=== PATIENT | female | born 1970 | race African-American/Black ===

== ENCOUNTER 2019-12-05 01:09 | Inpatient (IN) | payer OTHER, SELFPAY ==
[2019-12-05] VITALS (20 sets, daily range): BP systolic 96–126; BP diastolic 46–80; PULSE 65–106; RESP 16–91; TEMP 36.4–37.6; O2SAT 91–99; BMI 22.1; BMI 23.8
--- NOTE | 2019-12-05 01:22 | ECG_ITS ---
Test Reason : CHEST PAIN Blood Pressure : / mmHG Vent. Rate : 090 BPM Atrial Rate : 090 BPM P-R Int : 134 ms QRS Dur : 084 ms QT Int : 366 ms P-R-T Axes : 070 030 046 degrees QTc Int : 447 ms Normal sinus rhythm Normal ECG When compared with ECG of 17-OCT-2019 04:38, No significant change was found Referred By: Howard Gonzalez Electronically Signed By:JOSE LUIS MANCERA MD
--- NOTE | 2019-12-05 01:22 | XR_ITS ---
EXAMINATION: XR CHEST CLINICAL INFORMATION: Chest pain COMPARISON: 10/17/2019 TECHNIQUE: Frontal view of the chest was obtained. FINDINGS: Right chest wall CT compatible port terminates over the mid SVC. The lungs are well expanded. There is no focal consolidation, edema, or effusion. No pneumothorax. The cardiomediastinal silhouette is within normal limits. No acute osseous abnormality. IMPRESSION: No acute pulmonary finding.
--- NOTE | 2019-12-05 01:25 | ED.GENADULT ---
HPI - General Adult General Chief complaint: General Medical Stated complaint: Sickle Cell Pain Time Seen by Provider: 12/05/19 01:15 Source: patient and EMS History of Present Illness HPI narrative: patient states for the past 1-2 days has been having full body pain. Chest pain arm pain back pain. Denies recent fevers or chills denies cough denies urinary symptoms. Denies focal abdominal pain. Patient feels this is similar to her sickle cell crisis MD complaint: full body pain Onset (ago): day(s) ( 1 day) Severity scale (1-10): 7 Quality: aching Pain Consistency: constant Relieving factors: none Related Data Allergies Allergy/AdvReac Type Severity Reaction Status Date / Time prochlorperazine Allergy Severe ANAPHYLAXIS Unverified 11/10/19 19:18 [From COMPAZINE] Review of Systems Review of Systems: Constitutional : No Weight loss, No Fever, No Chills, No Night Sweats, positive Fatigue, positive Malaise ENT/Mouth : No Hearing loss, No Ear Pain, No Nasal Congestion, No Sinus Pain, No Hoarseness, No sore throat, No Rhinorrhea, No Swallowing Difficulty Eyes: No Eye Pain, No Swelling, No Redness, No Foreign Body, No Discharge, No Vision Changes Cardiovascular : positiveChest Pain, No SOB, No Dyspnea on Exertion, No Orthopnea, No Edema, No Palpitations Respiratory : No Cough, No Sputum, No Wheezing, No Smoke Exposure, No Dyspnea Gastrointestinal : No Nausea, No Vomiting, No Diarrhea, No Constipation, No abdominal Pain, No Hematochezia, No Melena Genitourinary : no irregular bleeding, No Dysuria, No Urinary Frequency, No Hematuria, No Urinary Incontinence, No Urgency, No Flank Pain, No Urinary Flow Changes, No Hesitancy Musculoskeletal : No joint pain, positive Myalgias, No Joint Swelling Skin : No Skin Lesions, No rash Neuro : No Weakness, No Numbness, No Paresthesias, No Loss of Consciousness, No Dizziness, No Headache Psych : No Anxiety/Panic, No Depression, No SI/HI/AH/VH, No Social Issues, Heme/Lymph: No Bruising, No Bleeding,No Lymphadenopathy Endocrine : No Polyuria, No Polydipsia, No Temperature Intolerance [facility] Past Medical History Attestation statement: The following information was validated with the patient. Medical History (Updated 12/05/19 @ 01:28 by Howard Gonzalez DO) Bipolar 1 disorder Cocaine abuse GERD (gastroesophageal reflux disease) PTSD (post-traumatic stress disorder) Sickle cell anemia Surgical History (Updated 12/05/19 @ 01:29 by Howard Gonzalez DO) Hx of cholecystectomy Social History Social History (Updated 12/05/19 @ 01:29 by Howard Gonzalez DO) Alcohol intake: current Physical Exam Vital Signs: Appearance: Alert. Oriented X3. No acute distress. Eyes: Pupils equal, round and reactive to light. ENT: Pharynx normal. Neck: Normal inspection. Neck supple. No lymph nodes noted. No crepitus CVS: Normal heart rate and rhythm. Pulses normal. Normal S1 and S2 Respiratory: No respiratory distress. Breath sounds normal. No Wheezing. No rales Abdomen: Soft and nontender. No rigidity. No distention. good BS x4 Skin: Skin warm and dry. Normal skin color. Normal skin turgor. Extremities: No lower extremity edema. Neurovascular intact to all extremities. No Lacerations. No Rash Neuro: Oriented X 3. No motor deficit. No sensory deficit. Moving all extermities. No slurred speech. Medical Decision Making Differential Diagnosis Differential Diagnosis: UTI, pneumonia acute chest syndrome sickle cell crisis Medical Records Medical records reviewed: Yes I reviewed the patient's medical records. Medical records narrative: Discharged from here 3 4 months ago for sickle cell anemia, bipolar, UTI, PTSD was transfused and discharge with a hemoglobin of 9 ECG Data Attestation: I personally reviewed and interpreted this ECG as follows: Interpretation: normal sinus rhythm. Ninety. Normal axis. No ST-T changes
[2019-12-05 02:16] LABS: Hemoglobin 6.9 g/dl (12.0-16.0); Mean Corpuscular HGB Conc 35.4 g/dl (31.0-35.0); Mean Corpuscular Hemoglobin 32.1 pg (27.0-33.0); Mean Corpuscular Volume 90.7 fL (80-98); Mean Platelet Volume 11.4 fL (9.4-12.3); NRBC Pct Auto 4.9 /100WBC (0.0-0.2); Platelet Count 169 X10*3/uL (160-400); Red Blood Count 2.15 X10*6/uL (4.20-5.50); Red Cell Distribution Width 22.4 % (11.0-16.0); White Blood Count 13.6 X10*3/uL (4.8-10.8)
[2019-12-05] MEDS: Lidocaine HCl 2 % MPF 5 ML VIAL INFILTRATI (02:16)
[2019-12-05] MEDS: HYDROmorphone HCl 2 MG/ML VIAL IVPUSH ×2 (02:17→03:34)
[2019-12-05] MEDS: diphenhydrAMINE HCL 50 MG/ML VIAL 25 MG IVPUSH (02:17)
[2019-12-05 02:18] LABS: Glucose Urine UA NEG (NEG); Leukocyte Esterase Urine TRACE (NEG); Nitrite Urine NEG (NEG); Specific Gravity - Urine 1.015 (1.005-1.025); Urine Blood 1+ (NEG); Urine Ketones NEG (NEG); Urine Protein NEG (NEG-TRACE)
[2019-12-05] MEDS: ondansetron HCL 4 MG/2 ML VIAL IVPUSH (02:18)
[2019-12-05] MEDS: 0.9 % Sodium Chloride 1,000 ML 999 ML IVCONT (02:18)
[2019-12-05 02:21] LABS: Hematocrit 19.5 % (37-47)
[2019-12-05 02:26] LABS: Appearance Urine HAZY; Color Urine AMBER
[2019-12-05 02:37] LABS: Band Neutrophils Percent 4 % (3-5); Basophils Abs Manual 0.1 X10*3/uL (0.0-0.3); Basophils Percent Manual 1 % (0-1); Lymphocytes Absolute Manual 2.9 X10*3/uL (0.6-4.8); Lymphocytes Percent Manual 21 % (20-40); Monocytes Absolute Manual 1.8 X10*3/uL (0.0-1.2); Monocytes Percent Manual 13 % (2-11); Neutrophils Absolute Manual 8.8 X10*3/uL (2.2-7.9); Neutrophils Percent Manual 61 % (45-73); Nucleated Red Blood Cells 4 /100WBC (0-0); RBC Morphology NOTED
[2019-12-05 02:40] LABS: Macrocytosis 1+; Microcytosis 1+; Sickle Cells 3+; Target Cells 1+
[2019-12-05 02:41] LABS: Howell Jolly Bodies PRESENT; Hypochromasia 1+; Platelet Estimate NORMAL (NORMAL); Platelet Morphology Comment NORMAL; Polychromasia 2+
[2019-12-05 02:45] LABS: Troponin-I High Sensitivity 10.5 ng/L (<3.5-17.0)
[2019-12-05 02:47] LABS: Alanine Aminotransferase 44 U/L (0-31); Albumin Level 4.1 g/dL (3.5-5.0); Alkaline Phosphatase 144 U/L (39-117); Anion Gap 14 (12-20); Aspartate Amino Transferase 117 U/L (5-31); Bilirubin Direct 1.3 mg/dL (0.0-0.5); Bilirubin Total 3.2 mg/dL (0.0-1.0); Blood Urea Nitrogen 9 mg/dL (9-16); Calcium 8.8 mg/dL (8.4-10.2); Carbon Dioxide 21 mmol/L (22-29); Chloride 109 mmol/L (96-108); Creatinine Clr Calc Pharmacy 61.8; Estimated Glomerular Filt Rate > 60; Glucose Random 93 mg/dL (60-115); Lipase 50 U/L (8-78); Sodium 140 mmol/L (135-145); Total Protein 7.7 g/dL (6.5-8.0)
[2019-12-05 02:48] LABS: Bacteria Urine 3+ /LPF; RBC Urine 0-2 /HPF (0); Squamous Epithelial Cell Urine 2+ /LPF; WBC Clumps Urine NOTED
[2019-12-05] MEDS: cefTRIAXone sodium 1 GM in 0.9 % Sodium Chloride 50 ML IV ×2 (03:33→21:20)
--- NOTE | 2019-12-05 03:38 | ED_ITS ---
HPI - General Adult General Chief complaint: General Medical Stated complaint: Sickle Cell Pain Time Seen by Provider: 12/05/19 01:15 Source: patient and EMS History of Present Illness Severity scale (1-10): 7 Quality: aching Relieving factors: none Related Data Allergies Allergy/AdvReac Type Severity Reaction Status Date / Time prochlorperazine Allergy Severe ANAPHYLAXIS Verified 12/05/19 01:32 [From COMPAZINE] PMFSH Past Medical History Medical History (Updated 12/05/19 @ 06:12 by Donny Barron MD) Bipolar 1 disorder Cocaine abuse GERD (gastroesophageal reflux disease) PTSD (post-traumatic stress disorder) Sickle cell anemia Surgical History Hx of cholecystectomy Social History Social History Alcohol intake: current Alcohol intake frequency: a few times a week Alcohol type: hard liquor Smoking Status: Current every day smoker Substance Use Type: Crack/Cocaine Substance Use Frequency: Weekly Last Used Substance: Days (ago) Any prior treatment program specific to substance use: Yes Advance Directives: No Advance Directives Information Provided: No Physical Exam Vital Signs: Vital Signs: Vital Signs Temp Pulse Resp BP Pulse Ox 12/05/19 05:40 92 16 96/73 96 12/05/19 03:40 106 H 24 H 108/60 92 12/05/19 01:13 99.7 F 96 20 105/46 L 96 Body Mass Index 22.1 Course Course Course Narrative: multiple re-evaluations were done by me while the patient has been in the ER. Patient with acute sickle cell crisis with a low hemoglobin requiring transfusion of 2 units of blood Medical Decision Making Lab Data Result diagrams: 12/05/19 02:10 12/05/19 02:10 Labs: Lab Results 12/05/19 12/05/19 12/05/19 Range/Units 01:39 02:10 02:10 WBC 13.6 H (4.8-10.8) X10*3/uL RBC 2.15 L (4.20-5.50) X10*6/uL Hgb 6.9 L* (12.0-16.0) g/dl Hct 19.5 L* (37-47) % MCV 90.7 (80-98) fL MCH 32.1 (27.0-33.0) pg MCHC 35.4 H (31.0-35.0) g/dl RDW 22.4 H (11.0-16.0) % Plt Count 169 (160-400) X10*3/uL MPV 11.4 (9.4-12.3) fL Immature Gran % (Auto) Cancelled Neut % (Auto) Cancelled Lymph % (Auto) Cancelled [place] % (Auto) Cancelled Eos % (Auto) Cancelled Baso % (Auto) Cancelled Lymph # (Auto) Cancelled [place] # (Auto) Cancelled Eos # (Auto) Cancelled Baso # (Auto) Cancelled Abs Immat Gran (auto) Cancelled Absolute Neuts (auto) Cancelled Absolute Nucleated RBC 0.670 H (0.0-0.012) X10*3/uL Nucleated RBC % (auto) 4.9 H (0.0-0.2) /100WBC Neutrophils % (Manual) 61 (45-73) % Band Neutrophils % 4 (3-5) % Lymphocytes % (Manual) 21 (20-40) % Monocytes % (Manual) 13 H (2-11) % Basophils % (Manual) 1 (0-1) % Abs Neuts (Manual) 8.8 H (2.2-7.9) X10*3/uL Lymphocytes # (Manual) 2.9 (0.6-4.8) X10*3/uL Monocytes # (Manual) 1.8 H (0.0-1.2) X10*3/uL Basophils # (Manual) 0.1 (0.0-0.3) X10*3/uL Nucleated RBCs 4 H (0-0) /100WBC Platelet Estimate NORMAL (NORMAL) Plt Morphology Comment NORMAL RBC Morphology NOTED Polychromasia 2+ Hypochromasia 1+ Microcytosis 1+ Macrocytosis 1+ Sickle Cells 3+ Target Cells 1+ [place] Bodies PRESENT Absolute Retic 0.142 H (0.026-0.095) X10*6/uL Percent Retic 20.0 H (0.5-1.8) % Immature Retic Fraction 18.4 H (3.0-15.9) % Retic Hgb Equivalent 31.8 (30.0-35.0) pg Sodium 140 (135-145) mmol/L Potassium 4.0 (3.3-5.1) mmol/l Chloride 109 H (96-108) mmol/L Carbon Dioxide 21 L (22-29) mmol/L Anion Gap 14 (12-20) BUN 9 (9-16) mg/dL Creatinine 0.92 (0.5-1.4) mg/dL Estim Creat Clear Calc 61.8 Estimated GFR > 60 Random Glucose 93 (60-115) mg/dL Lactic Acid (0.5-2.0) mmol/L Calcium 8.8 (8.4-10.2) mg/dL Total Bilirubin 3.2 H (0.0-1.0) mg/dL Direct Bilirubin 1.3 H (0.0-0.5) mg/dL AST 117 H (5-31) U/L ALT 44 H (0-31) U/L Alkaline Phosphatase 144 H (39-117) U/L Troponin I High Sens (<3.5-17.0) ng/L Total Protein 7.7 (6.5-8.0) g/dL Albumin 4.1 (3.5-5.0) g/dL Lipase 50 (8-78) U/L Urine Color SAMANTHA Urine Appearance HAZY Urine pH 6.0 (5.0-8.0) Ur Specific [place] 1.015 (1.005-1.025) Urine Protein NEG (NEG-TRACE) MG/DL Urine Glucose (UA) NEG (NEG) MG/DL Urine Ketones NEG (NEG) MG/DL Urine Blood 1+ H (NEG) Urine Nitrite NEG (NEG) Ur Leukocyte Esterase TRACE H (NEG) Urine RBC 0-2 (0) /HPF Urine WBC 5-9 H (0-4) /HPF Urine WBC Clumps NOTED Ur Squamous Epith Cells 2+ /LPF Urine Bacteria 3+ /LPF Blood Type Antibody Screen Crossmatch 12/05/19 12/05/19 12/05/19 Range/Units 02:10 03:31 03:31 WBC (4.8-10.8) X10*3/uL RBC (4.20-5.50) X10*6/uL Hgb (12.0-16.0) g/dl Hct (37-47) % MCV (80-98) fL MCH (27.0-33.0) pg MCHC (31.0-35.0) g/dl RDW (11.0-16.0) % Plt Count (160-400) X10*3/uL MPV (9.4-12.3) fL Immature Gran % (Auto) Neut % (Auto) Lymph % (Auto) [place] % (Auto) Eos % (Auto) Baso % (Auto) Lymph # (Auto) [place] # (Auto) Eos # (Auto) Baso # (Auto) Abs Immat Gran (auto) Absolute Neuts (auto) Absolute Nucleated RBC (0.0-0.012) X10*3/uL Nucleated RBC % (auto) (0.0-0.2) /100WBC Neutrophils % (Manual) (45-73) % Band Neutrophils % (3-5) % Lymphocytes % (Manual) (20-40) % Monocytes % (Manual) (2-11) % Basophils % (Manual) (0-1) % Abs Neuts (Manual) (2.2-7.9) X10*3/uL Lymphocytes # (Manual) (0.6-4.8) X10*3/uL Monocytes # (Manual) (0.0-1.2) X10*3/uL Basophils # (Manual) (0.0-0.3) X10*3/uL Nucleated RBCs (0-0) /100WBC Platelet Estimate (NORMAL) Plt Morphology Comment RBC Morphology Polychromasia Hypochromasia Microcytosis Macrocytosis Sickle Cells Target Cells [place] Bodies Absolute Retic (0.026-0.095) X10*6/uL Percent Retic (0.5-1.8) % Immature Retic Fraction (3.0-15.9) % Retic Hgb Equivalent (30.0-35.0) pg Sodium (135-145) mmol/L Potassium (3.3-5.1) mmol/l Chloride (96-108) mmol/L Carbon Dioxide (22-29) mmol/L Anion Gap (12-20) BUN (9-16) mg/dL Creatinine (0.5-1.4) mg/dL Estim Creat Clear Calc Estimated GFR Random Glucose (60-115) mg/dL Lactic Acid 1.0 (0.5-2.0) mmol/L Calcium (8.4-10.2) mg/dL Total Bilirubin (0.0-1.0) mg/dL Direct Bilirubin (0.0-0.5) mg/dL AST (5-31) U/L ALT (0-31) U/L Alkaline Phosphatase (39-117) U/L Troponin I High Sens 10.5 (<3.5-17.0) ng/L Total Protein (6.5-8.0) g/dL Albumin (3.5-5.0) g/dL Lipase (8-78) U/L Urine Color Urine Appearance Urine pH (5.0-8.0) Ur Specific [place] (1.005-1.025) Urine Protein (NEG-TRACE) MG/DL Urine Glucose (UA) (NEG) MG/DL Urine Ketones (NEG) MG/DL Urine Blood (NEG) Urine Nitrite (NEG) Ur Leukocyte Esterase (NEG) Urine RBC (0) /HPF Urine WBC (0-4) /HPF Urine WBC Clumps Ur Squamous Epith Cells /LPF Urine Bacteria /LPF Blood Type O Positive Antibody Screen NEGATIVE Crossmatch See Detail Critical Care Time Critical Care Time Critical Care Time: Yes Total Critical Care Time: 35 Attestation: I have personally provided the time allotted of critical care time exclusive of time spent on separately billable procedures. Time includes review of laboratory data, radiology results, discussion with consultants and monitoring for potential decompensation. Interventions were performed and documented Discharge Plan Discharge Clinical Impression: Sickle cell crisis UTI (urinary tract infection) Qualifiers: Urinary tract infection type: acute cystitis Anemia Qualifiers: Anemia type: other cause Patient Disposition: Admitted As Inpatient
[2019-12-05] MEDS: LORazepam 2 MG/ML VIAL IVPUSH (03:55)
--- NOTE | 2019-12-05 05:05 | PC.NURSE ---
Unable to complete medrec at this time due to patient's decreased mental status.
--- NOTE | 2019-12-05 05:58 | P.HPIM_ITS ---
History of Present Illness Date of Service: 12/05/19 Chief Complaint: Sickle cell crisis this is a 49-year-old female with past medical history of sickle cell, bipolar, PTSD, cocaine abuse, alcohol abuse, who presents to the hospital with significant pain all over the body. Patient currently is very somnolent, very difficult to redirect after receiving Ativan and Dilaudid in the ED. I was not able to get much history from the patient therefore history is obtained from the ED physician. It appears that patient has been having generalized body pain for the past 3 days. Review of system cannot be completed due to patient's clinical presentation. On arrival to the ED patient had a temperature of 99.7? pulse rate of 96 which increased to 106 at some point, respiratory rate of 20 for blood pressure 105/46 and she was satting 96% on room air labs are significant for WBC count of 13.6, hemoglobin of 6.9, hematocrit of 19.5, MCV of 90.7, total bili of 3.2 direct bili of 1.3 AST of 117 an ALT of 44 (chronically elevated), UA UA is positive for leukocyte Estrace and WBC chest x-rays negative for any acute findings Past medical history is obtained from chart as patient is unable to give me any history herself past medical history: Bipolar, sickle cell disease, PTSD, cocaine abuse, alcohol abuse, GERD surgical history: Cholecystectomy, section, ankle surgery Family history: significant for diabetes Social history: History appears that patient is of smoker, lives alone and uses cocaine Review of Systems Review of Systems: Yes all other systems are reviewed and are negative [facility] Medical History (Updated 12/05/19 @ 06:12 by Donny Barron MD) Bipolar 1 disorder Cocaine abuse GERD (gastroesophageal reflux disease) PTSD (post-traumatic stress disorder) Sickle cell anemia Surgical History Hx of cholecystectomy Social History Alcohol intake: current Alcohol intake frequency: a few times a week Alcohol type: hard liquor Smoking Status: Current every day smoker Substance Use Type: Crack/Cocaine Substance Use Frequency: Weekly Last Used Substance: Days (ago) Any prior treatment program specific to substance use: Yes Advance Directives: No Advance Directives Information Provided: No Meds Allergies Allergy/AdvReac Type Severity Reaction Status Date / Time prochlorperazine Allergy Severe ANAPHYLAXIS Verified 12/05/19 01:32 [From COMPAZINE] Physical Exam Vital Signs and Narrative: Vital Signs: Last Vital Signs Temp 99.7 F 12/05/19 01:13 Pulse 92 12/05/19 05:40 Resp 16 12/05/19 05:40 BP 96/73 12/05/19 05:40 Pulse Ox 96 12/05/19 05:40 Body Mass Index 22.1 Const: Other: -patient is somnolent, but arousable. She anywhere to stay up long enough to give me any history or follow any command. no apparent distress Eyes: General: appearance normal, both eyes and all related structures Resp: Effort & Inspection: normal respiratory effort Auscultation: clear to auscultation bilaterally Cardio: Rate: regular rate Rhythm: regular rhythm GI: Palpation (GI): Soft to palpation Auscultation: normal bowel sounds Skin: General skin exam: no rashes or lesions noted Neuro: Other: unable to complete neuro exam as patient clinically unable to follow command Extrem: General: Yes normal to inspection and Yes no pedal edema Results Labs Labs: Laboratory Tests 12/05/19 12/05/19 12/05/19 01:39 02:10 02:10 WBC 13.6 H RBC 2.15 L Hgb 6.9 L* Hct 19.5 L* MCV 90.7 MCH 32.1 MCHC 35.4 H RDW 22.4 H Plt Count 169 MPV 11.4 Immature Gran % (Auto) Cancelled Neut % (Auto) Cancelled Lymph % (Auto) Cancelled [place] % (Auto) Cancelled Eos % (Auto) Cancelled Baso % (Auto) Cancelled Lymph # (Auto) Cancelled [place] # (Auto) Cancelled Eos # (Auto) Cancelled Baso # (Auto) Cancelled Abs Immat Gran (auto) Cancelled Absolute Neuts (auto) Cancelled Absolute Nucleated RBC 0.670 H Nucleated RBC % (auto) 4.9 H Neutrophils % (Manual) 61 Band Neutrophils % 4 Lymphocytes % (Manual) 21 Monocytes % (Manual) 13 H Basophils % (Manual) 1 Abs Neuts (Manual) 8.8 H Lymphocytes # (Manual) 2.9 Monocytes # (Manual) 1.8 H Basophils # (Manual) 0.1 Nucleated RBCs 4 H Platelet Estimate NORMAL Plt Morphology Comment NORMAL RBC Morphology NOTED Polychromasia 2+ Hypochromasia 1+ Microcytosis 1+ Macrocytosis 1+ Sickle Cells 3+ Target Cells 1+ [place] Bodies PRESENT Absolute Retic Not Reportable Percent Retic Not Reportable Immature Retic Fraction Not Reportable Retic Hgb Equivalent Not Reportable Sodium 140 Potassium 4.0 Chloride 109 H Carbon Dioxide 21 L Anion Gap 14 BUN 9 Creatinine 0.92 Estim Creat Clear Calc 61.8 Estimated GFR > 60 Random Glucose 93 Lactic Acid Calcium 8.8 Total Bilirubin 3.2 H Direct Bilirubin 1.3 H AST 117 H ALT 44 H Alkaline Phosphatase 144 H Troponin I High Sens Total Protein 7.7 Albumin 4.1 Lipase 50 Urine Color SAMANTHA Urine Appearance HAZY Urine pH 6.0 Ur Specific [place] 1.015 Urine Protein NEG Urine Glucose (UA) NEG Urine Ketones NEG Urine Blood 1+ H Urine Nitrite NEG Ur Leukocyte Esterase TRACE H Urine RBC 0-2 Urine WBC 5-9 H Urine WBC Clumps NOTED Ur Squamous Epith Cells 2+ Urine Bacteria 3+ Blood Type Antibody Screen Crossmatch 12/05/19 12/05/19 12/05/19 02:10 03:31 03:31 WBC RBC Hgb Hct MCV MCH MCHC RDW Plt Count MPV Immature Gran % (Auto) Neut % (Auto) Lymph % (Auto) [place] % (Auto) Eos % (Auto) Baso % (Auto) Lymph # (Auto) [place] # (Auto) Eos # (Auto) Baso # (Auto) Abs Immat Gran (auto) Absolute Neuts (auto) Absolute Nucleated RBC Nucleated RBC % (auto) Neutrophils % (Manual) Band Neutrophils % Lymphocytes % (Manual) Monocytes % (Manual) Basophils % (Manual) Abs Neuts (Manual) Lymphocytes # (Manual) Monocytes # (Manual) Basophils # (Manual) Nucleated RBCs Platelet Estimate Plt Morphology Comment RBC Morphology Polychromasia Hypochromasia Microcytosis Macrocytosis Sickle Cells Target Cells [place] Bodies Absolute Retic Percent Retic Immature Retic Fraction Retic Hgb Equivalent Sodium Potassium Chloride Carbon Dioxide Anion Gap BUN Creatinine Estim Creat Clear Calc Estimated GFR Random Glucose Lactic Acid 1.0 Calcium Total Bilirubin Direct Bilirubin AST ALT Alkaline Phosphatase Troponin I High Sens 10.5 Total Protein Albumin Lipase Urine Color Urine Appearance Urine pH Ur Specific [place] Urine Protein Urine Glucose (UA) Urine Ketones Urine Blood Urine Nitrite Ur Leukocyte Esterase Urine RBC Urine WBC Urine WBC Clumps Ur Squamous Epith Cells Urine Bacteria Blood Type O Positive Antibody Screen NEGATIVE Crossmatch See Detail Assessment and Plan (1) Sickle cell crisis: Status: Acute (2) Sepsis: Status: Acute (3) Sickle cell anemia: Status: Inactive (4) UTI (urinary tract infection): Qualifiers: Urinary tract infection type: acute cystitis Status: Acute (5) GERD (gastroesophageal reflux disease): Status: Inactive (6) Bipolar 1 disorder: Status: Inactive (7) Alcohol abuse: Status: Acute this is a 49-year-old female with past medical history of sickle cell disease who presents to the hospital is sickle cell crisis. # Sickle cell crisis - significant pain over the body - chest x-ray normal, his UTI and sepsis as a result - hemoglobin of 6.9 plan: - pain management with morphine, oxycodone and Tylenol - receiving 2 units of PRBC ordered by ED - IV fluid - monitor respiratory status # sepsis - secondary to UTI - chest x-ray negative for pneumonia - has leukocytosis, tachycardia and tachypnea Plan: - Ceftriaxone - IV fluid - follow blood cultures # sickle cell anemia - hemoglobin 6.9, hemodynamically stable - has elevated bilirubin plan: - 2 units of PRBC ordered - follow CBC - monitor respiratory status # UTI - positive UA - ceftriaxone, urine cultures - IV fluids # alcohol abuse - I am unable to obtain any history about the amount of alcohol she uses - will place her on CIWA at this time and assess need for barbituate DVT prophylaxis: Lovenox date of service 12/05/2019
[2019-12-05 06:44] LABS: Immature Retic Fraction 18.4 % (3.0-15.9); Retic HGB Equivalent 31.8 pg (30.0-35.0); Reticulocytes Absolute 0.142 X10*6/uL (0.026-0.095)
--- NOTE | 2019-12-05 07:23 | PC.NURSE ---
This RN given report by Eileen GAY. pt repositioned in bed. pt sleeping soundly. sts pt can now go upstairs.
--- NOTE | 2019-12-05 07:31 | PC.NURSE ---
This RN spoke [place] [facility] [place] [facility] patient is coming [place] now and that her blood is ready in the blood bank.
[2019-12-05] MEDS: 0.9 % Sodium Chloride Flush 3 ML SYRINGE IVFLUSH ×3 (08:03→23:45)
[2019-12-05] MEDS: Enoxaparin Sodium 40 MG/0.4 ML SYRINGE SUBCUT (08:04)
[2019-12-05] MEDS: Morphine Sulfate 4 MG/ML CARTRIDGE IVPUSH ×3 (08:48→21:20)
[2019-12-05] MEDS: PHENobarbitaL sodium 130 MG/ML VIAL 254 MG IM (11:13)
[2019-12-05 13:56] LABS: Hemoglobin 10.9 g/dl (12.0-16.0); PLT CLUMP 1
[2019-12-05 13:57] LABS: Hematocrit 31.4 % (37-47); Mean Corpuscular HGB Conc 34.7 g/dl (31.0-35.0); Mean Corpuscular Hemoglobin 31.8 pg (27.0-33.0); Mean Corpuscular Volume 91.5 fL (80-98); Mean Platelet Volume 11.3 fL (9.4-12.3); Platelet Count 125 X10*3/uL (160-400); Red Blood Count 3.43 X10*6/uL (4.20-5.50); Red Cell Distribution Width 20.2 % (11.0-16.0)
[2019-12-05 14:04] LABS: NRBC Pct Auto 6.6 /100WBC (0.0-0.2)
[2019-12-05] MEDS: PHENobarbitaL sodium 130 MG/ML VIAL 191 MG IM (14:29)
--- NOTE | 2019-12-05 16:38 | PM.EVENT ---
Event Note Event Note: the patient was seen and evaluated this Morning andafternoon she was very sleepy in the morning and barely responsive. Scored 14 on CIWA score and started on phenobarbital protocol with good response. In the afternoon more alert and responsive. complains of general pain denies chgest pain, SOB, n\v\d or urinary symptoms pain management Recieved total of 3 units. Ordered total of 5 units by ED which seems to be too many for a sickle cell ( the 3rd unit was given by RN for multiple transfusion orders reported on the nurses Expanse, blood bank notified to review the issue) Hold IVF To give dose of lasix
[2019-12-05] MEDS: Folic Acid 1 MG TABLET PO (16:56)
--- NOTE | 2019-12-05 17:05 | P.CNHO_ITS ---
Subjective - Subjective Chief complaint: Consult for SSC. Patient: known to practice within the last 3 years Primary Care Provider: Unknown Physician HPI - Consult Narrative Reason for consult: SSC. Narrative: America Vizcaino is a 49 year old lady who presents with: Sickle cell crisis She has a past medical history of sickle cell, bipolar, PTSD, cocaine abuse, alcohol abuse. She presented to the hospital, last night, with significant pain all over the body. Patient was rather somnolent, and difficult to arouse after receiving Ativan and Dilaudid. It appeared that she had been having generalized body pain for the past 3 days. Review of system could not be completed. On arrival to the ED she had a temperature of 99.7? pulse rate of 96 which increased to 106, respiratory rate of 20 for blood pressure 105/46 and she was satting 96% on room air DATA BASE: WBC count of 13.6, hemoglobin of 6.9, hematocrit of 19.5, MCV of 90.7, Total bili of 3.2 direct bili of 1.3 AST of 117 an ALT of 44 (chronically elevated), UA was positive for leukocyte Estrace and WBC Chest x-rays negative for any acute findings. Phenobarb protocol was initiated. She is more responsive this afternoon. Complaining of generalized pain. [facility] Medical History: Medical History (Last Updated 12/05/19 @ 06:12 by Donny Barron MD) Bipolar 1 disorder Cocaine abuse GERD (gastroesophageal reflux disease) PTSD (post-traumatic stress disorder) Sickle cell anemia Patient : No Surgical History: Surgical History (Last Reviewed 12/05/19 @ 06:08 by Donny Barron MD) Hx of cholecystectomy Smoking status: Current every day smoker Home Medications and Allergies Current Medications: Current Medications Generic Name Dose Route Start Last Admin Trade Name Freq PRN Reason Stop Dose Admin Acetaminophen 650 mg 12/05/19 07:37 Acetaminophen 325 Mg Tablet PO Q6H PRN Pain, Mild (Pain Scale 1-3) Docusate Sodium 100 mg 12/05/19 07:37 Docusate Sodium 100 Mg Capsule PO DAILY PRN Constipation Enoxaparin Sodium 40 mg 12/05/19 08:00 12/05/19 08:04 Enoxaparin Sodium 40 Mg/0.4 Ml Syringe SUBCUT 40 mg Q24H [facility]IP Administration Folic Acid 1 mg 12/05/19 16:20 Folic Acid 1 Mg Tablet PO DAILY [facility] Furosemide 20 mg 12/05/19 16:50 Furosemide 20 Mg/2 Ml Vial IVPUSH 12/05/19 16:51 ONCE ONE Protocol Ceftriaxone Sodium 1 gm/ 50 mls @ 100 mls/hr 12/05/19 22:00 Sodium Chloride IV Q24H [facility] Medication 1 each 12/06/19 09:00 No Benzodiazepines MISCELLANE DAILY [facility] Morphine Sulfate 4 mg 12/05/19 07:37 12/05/19 08:48 Morphine Sulfate 4 Mg/Ml Cartridge IVPUSH 4 mg Q4H PRN Administration Pain, Severe (Pain Scale 7-10) Morphine Sulfate 2 mg 12/05/19 16:17 Morphine Sulfate 2 Mg/Ml Cartridge IVPUSH Q4H PRN Pain, Severe (Pain Scale 7-10) Ondansetron HCl 4 mg 12/05/19 07:37 Ondansetron Hcl 4 Mg/2 Ml Vial IVPUSH Q8H PRN Nausea and Vomiting Oxycodone HCl 5 mg 12/05/19 07:37 Oxycodone Hcl Immed Release 5 Mg Tablet PO Q6H PRN Pain, Severe (Pain Scale 7-10) Phenobarbital 45 mg 12/05/19 21:00 Phenobarbital 15 Mg Tablet PO 12/07/19 09:01 BID [facility] Phenobarbital 15 mg 12/07/19 21:00 Phenobarbital 15 Mg Tablet PO 12/09/19 09:01 BID [facility] Phenobarbital 15 mg 12/09/19 21:00 Phenobarbital 15 Mg Tablet PO 12/10/19 21:01 BEDTIME [facility] Sodium Chloride 3 ml 12/05/19 08:00 12/05/19 08:03 0.9 % Sodium Chloride Flush 3 Ml Syringe IVFLUSH 3 ml QSHIFT [facility] Administration Home Medications Medication Instructions Recorded Confirmed Type albuterol sulfate 2.5 mg INHALATION Q6H 12/05/19 12/05/19 History hydroxyzine pamoate 25 mg PO QID PRN 12/05/19 12/05/19 History multivitamin [Daily-Lazraa] 1 tab PO DAILY 12/05/19 12/05/19 History omeprazole 20 mg PO DAILY 12/05/19 12/05/19 History oxycodone-acetaminophen 2 tab PO Q4H 12/05/19 12/05/19 History sertraline 50 mg PO DAILY 12/05/19 12/05/19 History Allergies Allergy/AdvReac Type Severity Reaction Status Date / Time prochlorperazine Allergy Severe ANAPHYLAXIS Verified 12/05/19 01:32 [From COMPAZINE] Physical Exam Vital signs: Vital Signs Temp 98.4 F 12/05/19 16:00 Pulse 77 12/05/19 16:00 Resp 18 12/05/19 16:00 BP 126/67 12/05/19 16:00 Pulse Ox 99 12/05/19 16:00 Intake & Output 12/04/19 12/05/19 12/05/19 18:59 06:59 18:59 Intake Total 1050 / 1050 1050 / 1050 Balance 1050 / 1050 1050 / 1050 Intake: Intake, Oral Amount 0 / 0 Intake (Blood Product) Amount 1050 / 1050 Red Blood Cells (E0382) Unit 350 / 350 [id number] Red Blood Cells (E0382) Unit 350 / 350 [id number] Red Blood Cells (E0382) Unit 350 / 350 [id number] Intake, IV Amount 1050 / 1050 cefTRIAXone sodium 1 gm In 0.9 50 / 50 % Sodium Chloride 50 ml @ 100 mls/hr IV ONCE ONE Rx#: [id number] 0.9 % Sodium Chloride 1,000 ml 1000 / 1000 @ 999 mls/hr IVCONT .Q1H1M PHILLIP Rx#:[id number] Other: Weight 56.699 kg Weight 56.699 kg - Constitutional Present: mild distress - Routine HEENT Exam Head: Present: normal inspection ENT: Present: mucous membranes moist - Routine Neck Exam Present: supple - Routine Respiratory Exam Present: decreased breath sounds, CTAB - Routine Cardiovascular Exam Cardiovascular: Present: RRR, S1, S2 - Routine Abdominal Exam Present: nontender - Routine Rectal Exam Patient deferred: digital exam - Routine Extremities Exam Present: nontender Hem/Onc Consult Result - Labs CBC & Chem 7: 12/05/19 13:40 12/05/19 02:10 Labs: Short CBC 12/05/19 12/05/19 Range/Units 02:10 13:40 WBC 13.6 H 11.0 H (4.8-10.8) X10*3/uL Hgb 6.9 L* 10.9 L D (12.0-16.0) g/dl Hct 19.5 L* 31.4 L D (37-47) % Plt Count 169 125 L D (160-400) X10*3/uL BMP 12/05/19 02:10 Sodium 140 Potassium 4.0 Chloride 109 H Carbon Dioxide 21 L BUN 9 Creatinine 0.92 Calcium 8.8 Liver Function 12/05/19 Range/Units 02:10 Total Bilirubin 3.2 H (0.0-1.0) mg/dL Direct Bilirubin 1.3 H (0.0-0.5) mg/dL AST 117 H (5-31) U/L ALT 44 H (0-31) U/L Alkaline Phosphatase 144 H (39-117) U/L Albumin 4.1 (3.5-5.0) g/dL Urine 12/05/19 Range/Units 01:39 Urine Color SAMANTHA Urine Appearance HAZY Urine pH 6.0 (5.0-8.0) Ur Specific [place] 1.015 (1.005-1.025) Urine Protein NEG (NEG-TRACE) MG/DL Urine Glucose (UA) NEG (NEG) MG/DL Assessment and Plan (1) Sickle cell crisis Status: Acute (2) Sickle cell anemia Status: Acute Qualifiers: Sickle-cell associated disorders: with crisis with other complication Qualified Code(s): D57.09 - Hb-SS disease with crisis with other specified co mplication This is a 49 year old lady with H/O SCA, who presents with painful crisis. She was rather anemia. She has been transfused with 3 unts of PRBCs. H & H has improved. PLAN: To continue with Analgesics and IV hydration, as you are doing to get her over the hump. Would continue her on Hydrea therapy. Thanks,
[2019-12-05] MEDS: Furosemide 20 MG/2 ML VIAL IVPUSH (17:16)
[2019-12-05] MEDS: oxyCODONE HCl Immed Release 5 MG TABLET PO (20:14)
[2019-12-06] VITALS (8 sets, daily range): BP systolic 108–162; BP diastolic 66–81; PULSE 71–98; RESP 16–20; TEMP 36.7–37.3; O2SAT 92–95
[2019-12-06] MEDS: HYDROmorphone HCl 0.5 MG/0.5 ML SYRINGE 0.25 MG IVPUSH (00:49)
[2019-12-06] MEDS: diphenhydrAMINE HCL 50 MG/ML VIAL 25 MG IVPUSH (01:35)
[2019-12-06] MEDS: ondansetron HCL 4 MG/2 ML VIAL IVPUSH (01:35)
[2019-12-06] MEDS: Morphine Sulfate 4 MG/ML CARTRIDGE IVPUSH ×2 (07:18→11:33)
[2019-12-06] MEDS: 0.9 % Sodium Chloride Flush 3 ML SYRINGE IVFLUSH ×2 (07:18→17:04)
[2019-12-06] MEDS: diphenhydrAMINE HCL 50 MG/ML VIAL 12.5 MG IVPUSH ×3 (07:21→17:02)
--- NOTE | 2019-12-06 11:09 | MHC.CM.PN ---
Patient lives alone in an apartment and is functionally independent.Patient's goal is to return home with resumption of [facility]/[employer] TE[employer] services (60 hours/week) and CM has initiated and will follow for dc planning. IMM addressed with Patient and the original has been given to her and a copy has been placed on the chart. PCP is from [facility]. Son assists PRN.
--- NOTE | 2019-12-06 11:40 | PC.NURSE ---
Patient refused morning medications and labs (phenobarbital, folic acid, lovenox) also continuously pulls at telemetry leads. Dr Luna notified. He will see pt
[2019-12-06] MEDS: 0.9 % Sodium Chloride 1,000 ML 50 ML IVCONT (12:53)
[2019-12-06] MEDS: HYDROmorphone HCl 1 MG/ML SYRINGE IVPUSH ×2 (13:12→17:00)
--- NOTE | 2019-12-06 16:42 | HO.PM.IMPN ---
Subjective Subjective Date of Service: 12/06/19 Interval History: the patient was seen and evaluated this morning Laying in bed, complaining of generalized pain of 9/10 Denies any fever, chills or shortness of breath No reported other overnight events. Review of Systems Review of Systems: Yes all other systems are reviewed and are negative Physical Exam Vital Signs: Vital Signs: Vital Signs Temp Pulse Resp BP Pulse Ox 12/06/19 16:00 98.7 F 82 18 122/81 92 12/06/19 11:27 98.8 F 88 18 135/66 95 12/06/19 07:07 99.2 F 98 20 125/68 94 12/06/19 04:00 91 20 116/74 95 12/06/19 03:55 91 20 116/74 95 12/06/19 00:00 82 16 162/68 H 95 12/05/19 20:00 99 F 81 91 H 119/77 91 L Body Mass Index 23.8 Constitutional : Alert, oriented, reporting pain, this comfortable Neck : Normal inspection, Supple Cardiovascular : RRR, S1 S2, no lower extremity edema Respiratory : Fair bilateral air entry, no crackles, wheezes or rhonchi Gastrointestinal: soft, lax, Normal bowel sounds, Non tender Skin : Warm/Dry, report breast rash Neurological : Alert & oriented x3, No focal deficit Objective Data Current Medications Generic Name Dose Route Start Last Admin Trade Name Freq PRN Reason Stop Dose Admin Acetaminophen 650 mg 12/05/19 07:37 Acetaminophen 325 Mg Tablet PO Q6H PRN Pain, Mild (Pain Scale 1-3) Diphenhydramine HCl 12.5 mg 12/06/19 01:08 12/06/19 13:11 Diphenhydramine Hcl 50 Mg/Ml Vial IVPUSH 12.5 mg Q6H PRN Administration Itching Docusate Sodium 100 mg 12/05/19 07:37 Docusate Sodium 100 Mg Capsule PO DAILY PRN Constipation Enoxaparin Sodium 40 mg 12/05/19 08:00 12/06/19 09:25 Enoxaparin Sodium 40 Mg/0.4 Ml Syringe SUBCUT Not Given Q24H [facility] Folic Acid 1 mg 12/05/19 16:20 12/06/19 09:25 Folic Acid 1 Mg Tablet PO Not Given DAILY [facility] Hydromorphone HCl 1 mg 12/06/19 12:01 12/06/19 13:12 Hydromorphone Hcl 1 Mg/Ml Syringe IVPUSH 1 mg Q4H PRN Administration Pain, Severe (Pain Scale 7-10) Hydroxyurea 500 mg 12/06/19 09:45 12/06/19 12:59 Hydroxyurea 500 Mg Capsule PO Not Given DAILY [facility] Ceftriaxone Sodium 1 gm/ 50 mls @ 100 mls/hr 12/05/19 22:00 12/05/19 22:06 Sodium Chloride IV Infused Q24H [facility] Infusion Sodium Chloride 1,000 mls @ 50 mls/hr 12/06/19 12:15 12/06/19 12:53 Ns IVCONT 50 mls/hr .Q20H [facility] Administration Medication 1 each 12/06/19 09:00 No Benzodiazepines MISCELLANE DAILY [facility] Ondansetron HCl 4 mg 12/05/19 07:37 12/06/19 01:35 Ondansetron Hcl 4 Mg/2 Ml Vial IVPUSH 4 mg Q8H PRN Administration Nausea and Vomiting Oxycodone HCl 5 mg 12/05/19 07:37 12/05/19 20:14 Oxycodone Hcl Immed Release 5 Mg Tablet PO 5 mg Q6H PRN Administration Pain, Severe (Pain Scale 7-10) Phenobarbital 45 mg 12/05/19 21:00 12/06/19 09:25 Phenobarbital 15 Mg Tablet PO 12/07/19 09:01 Not Given BID [facility] Phenobarbital 15 mg 12/07/19 21:00 Phenobarbital 15 Mg Tablet PO 12/09/19 09:01 BID [facility] Phenobarbital 15 mg 12/09/19 21:00 Phenobarbital 15 Mg Tablet PO 12/10/19 21:01 BEDTIME [facility] Sodium Chloride 3 ml 12/05/19 08:00 12/06/19 07:18 0.9 % Sodium Chloride Flush 3 Ml Syringe IVFLUSH 3 ml QSHIFT [facility] Administration Labs CBC & Chem 7: 12/05/19 13:40 12/05/19 02:10 Microbiology Microbiology Results: Microbiology 12/05/19 02:26 Urine clean catch - Clean Catch Midstream Urine Culture - Final No growth. 12/05/19 03:31 Blood - Venous Blood Culture - Preliminary No growth after 24 hours. 12/05/19 03:31 Blood - Venous Blood Culture - Preliminary No growth after 24 hours. Assessment and Plan (1) Sickle cell crisis: Status: Acute (2) UTI (urinary tract infection): Status: Acute (3) Alcohol abuse: Status: Acute (4) Sickle cell anemia: Status: Acute Assessment and Plan: A 49-year-old female with past medical history of sickle cell disease who presents to the hospital with pain and lethargy secondary to sickle cell crisis. Sickle cell crisis Acute on chronic anemia Pain is better controlled after introducing Dilaudid Received total of 3 units of blood with last hemoglobin of 10.9 from 6.9 at admission Restart IV fluid Folic acid and Hydrea started, to continue at DC monitor respiratory status sepsis, resolved secondary to UTI Ceftriaxone IV fluid pending blood cultures alcohol abuse Alcohol withdrawal Started PHenobarbital protocol DVT prophylaxis: Lovenox
--- NOTE | 2019-12-06 21:19 | PC.NURSE ---
Patient upset about pain medication frequency. Cari Judge primary RN attempted to educate patient. Dr Barron up to see patient. Patient leaving AMA - educated about risks of leaving by MD & RN. Telepack already off. IV removed. AMA form signed by patient.
--- NOTE | 2019-12-07 13:27 | PM.EVENT ---
Event Note Event Note: micro lab reported that patient has 1/2 blood culture positive: patient's contact patient'S son Mr Alas was called: And message left to call back. message left for patient's son to follow-up with blood culture result and further recommendations.
--- NOTE | 2020-02-14 17:28 | P.EN_ITS ---
Event Note Date of Service: 02/14/20 Event Note: Discharge summary Discharge diagnosis:- 1. Sickle cell crisis 2. Acute on chronic anemia 3. sepsis, secondary to UTI 4. Alcohol abuse 5. Alcohol withdrawal Patient was admitted to the hospital for treatment of sickle cell crisis. 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
== END 2019-12-06 20:55 | disposition left against medical advice (07) | DRG 811 ==
LOC: HO.ED 05:48 → HO.IMC 06:24
PROVIDERS: Admitting Provider Internal Medicine; Emergency Provider Emergency Medicine; Visit Provider Student in an Organized Health Care Education/Training Program
DX: D57.00 Hb-SS disease with crisis, unspecified (principal); A41.9 Sepsis, unspecified organism; N39.0 Urinary tract infection, site not specified; F10.139 Alcohol abuse with withdrawal, unspecified; F43.10 Post-traumatic stress disorder, unspecified; K21.9 Gastro-esophageal reflux disease without esophagitis; F14.10 Cocaine abuse, uncomplicated; F17.210 Nicotine dependence, cigarettes, uncomplicated; Z71.6 Tobacco abuse counseling; Z79.891 Long term (current) use of opiate analgesic; Z79.899 Other long term (current) drug therapy
CPT/HCPCS: 36415; 71045; 80048; 80076; 81001; 83605; 83690; 84484; 85007; 85027; 85045; 85060; 86850; 86870; 86900; 86901; 86902; 86920; 86921; 87040; 87086; 87147; 93005; 99284; J1170; J1200; J1650; J1940; J2060; J2270; J2405; J2560; P9016

== ENCOUNTER 2020-03-06 11:03 | Inpatient (IN) | payer OTHER, SELFPAY ==
[2020-03-06] VITALS (16 sets, daily range): BP systolic 109–156; BP diastolic 52–95; PULSE 72–92; RESP 16–20; TEMP 36.8–37.1; O2SAT 92–97; BMI 22.3
--- NOTE | 2020-03-06 12:01 | XR_ITS ---
EXAMINATION: XR CHEST CLINICAL INFORMATION: Chest pain. Sickle cell disease. Concern for acute chest. COMPARISON: Most recent chest radiograph dated 12/05/2019. TECHNIQUE: Frontal view of the chest was obtained. FINDINGS: Right chest wall port with its catheter tip overlying the SVC. Ovoid density overlying the right lung base, likely corresponding to a nipple shadow. No focal airspace consolidation. No pleural effusion or pneumothorax. Stable cardiomediastinal silhouette. XR/XR chest 1V IMPRESSION: No acute cardiopulmonary findings.
--- NOTE | 2020-03-06 12:01 | ECG_ITS ---
Test Reason : GENERAL MEDICAL Blood Pressure : / mmHG Vent. Rate : 075 BPM Atrial Rate : 075 BPM P-R Int : 138 ms QRS Dur : 090 ms QT Int : 402 ms P-R-T Axes : 056 018 036 degrees QTc Int : 448 ms Normal sinus rhythm Possible Left atrial enlargement Nonspecific T wave abnormality Abnormal ECG When compared with ECG of 05-DEC-2019 01:11, Nonspecific T wave abnormality, worse in Anterior leads Referred By: Darcy Marques Electronically Signed By:LIANNA NELSON MD
[2020-03-06] MEDS: HYDROmorphone HCl 1 MG/ML SYRINGE IM (12:16)
--- NOTE | 2020-03-06 12:32 | ED_ITS ---
HPI - General Adult General Chief complaint: General Medical Stated complaint: body pain, sickle cell emergency Time Seen by Provider: 03/06/20 11:59 Source: patient and EMS Mode of arrival: EMS Limitations: no limitations History of Present Illness HPI narrative: 50 y/o female with history of sickle cell anemia, hx sickle cell crisis (last admission here in Nov 2019), hx alcohol abuse, hx UTI who presents to the ED with acute onset of chest pain, left arm and wrist pain that started this morning when she woke up. She did not take any medications for the pain and called 911 right away. She states chest pain is central and nonradiating, it is making her SOB. No cough, fever, chills. The pain in her LUE starts in her fingers and extends to her elbow and upper arm. She cannot move her LUE due to the pain. She is tearful on arrival. MD complaint: chest pain, left arm pain Onset (ago): hour(s) (5) Location: chest, left and upper extremity Radiation: proximal Severity: severe Severity scale (1-10): >10 Quality: aching, sharp and constant Pain Consistency: constant Relieving factors: none Exacerbating factors: movement Associated symptoms: chest pain, headaches and shortness of breath Treatments prior to arrival: none Related Data Home Medications Medication Instructions Recorded Confirmed albuterol sulfate 2.5 mg INHALATION Q6H 12/05/19 12/05/19 hydroxyzine pamoate 25 mg PO QID PRN 12/05/19 12/05/19 multivitamin [Daily-Lazara] 1 tab PO DAILY 12/05/19 12/05/19 omeprazole 20 mg PO DAILY 12/05/19 12/05/19 oxycodone-acetaminophen 2 tab PO Q4H 12/05/19 12/05/19 sertraline 50 mg PO DAILY 12/05/19 12/05/19 Allergies Allergy/AdvReac Type Severity Reaction Status Date / Time prochlorperazine Allergy Severe ANAPHYLAXIS Verified 12/05/19 01:32 [From COMPAZINE] Review of Systems Review of Systems: Constitutional: No Fever, No Chills ENT/Mouth: No sore throat, No Rhinorrhea, No Swallowing Difficulty Eyes: No Eye Pain, No Swelling, No Redness Cardiovascular: + Chest Pain, + SOB, No Orthopnea, No Edema Respiratory: No Cough, No Sputum, No Wheezing, No dyspnea Gastrointestinal: No Nausea, No Vomiting, No Diarrhea, No abdominal Pain Genitourinary: No Dysuria, No Urinary Frequency, No Hematuria Musculoskeletal: + joint pain, + Myalgias Skin: No Skin Lesions, No rash Neuro: + Weakness, No Numbness, No Dizziness, No Headache Psych: + Anxiety/Panic, No Depression Heme/Lymph: No Bruising, No Lymphadenopathy Endocrine: No Polyuria, No Polydipsia [facility] Past Medical History Attestation statement: The following information was validated with the patient. Medical History Bipolar 1 disorder Cocaine abuse GERD (gastroesophageal reflux disease) PTSD (post-traumatic stress disorder) Sickle cell anemia Surgical History (Updated 12/05/19 @ 17:09 by Samuel Irvin MD) Hx of cholecystectomy Social History Social History Household Members: Unknown / Unable to assess Housing: Unknown / Unable to assess Alcohol intake: current Alcohol intake frequency: a few times a week Alcohol type: beer Smoking Status: Light tobacco smoker Use of substances other than those prescribed or required for medical reasons: No Substance Use Type: Crack/Cocaine Advance Directives: No Advance Directives Information Provided: No service: No Current occupational status: disabled Physical Exam Vital Signs: Vital Signs: Last Vital Signs Temp 98.2 F 03/06/20 14:57 Pulse 75 03/06/20 14:57 Resp 16 03/06/20 14:57 BP 122/62 03/06/20 14:57 Pulse Ox 93 03/06/20 14:57 Body Mass Index 22.3 Appearance: Alert. Tearful, anxious, crying, appears in pain Eyes: Pupils equal, round and reactive to light. ENT: dentition absent, dry mucus membranes Neck: Normal inspection. Neck supple. CVS: Normal heart rate and rhythm. Pulses normal. Anterior chest wall tender throughout Respiratory:+ respiratory distress with RR mid 20's, mild accessory muscle use, lung sounds are clear Abdomen: Soft and nontender. +BS x4 Skin: Skin warm and dry. Normal skin color. Normal skin turgor. No rashes. Extremities: No lower extremity edema. LUE with tenderness from fingertips to upper arm. no deformity, unable to move due to pain. refusing to participate in examination of LUE Neuro: Awake, alert, not moving LUE due to pain. LE strength equal. Course Course Course Narrative: 50 y/o with history of sickle cell anemia, hx sickle cell crisis, hx cocaine and ETOH abuse presenting with acute onset of chest and left arm pain. Hypoxic to 90% on room air, placed on 4L NC with improvement to 96%. Not allowing blood work or CXR until pain is better controlled. IM dilaudid ordered. Concern for acute chest syndrome with chest pain and hypoxia. IVF ordered as well as type and screen, retic count, CBC, LFTs. Reevaluation(s) Reevaluation #1: CXR negative. Delay in blood work due to patient being a difficult stick, multiple attempts were made. Phlebotomy to come attempt. Reevaluation #2: Critical results taken of hemoglobin in the 6 range, this is acutely lower than her prior hemoglobin of 10.9 in November. Labs consistent with hemolysis and sickle cell crisis. Spoke with Dr. Irvin from Hematology - recomm ends 1 unit of PRBC transfusion at this time. Spoke with [facility] (2 units ordered in error, only 1 to be given and they are aware) - she has a history of antibodies so there will be a delay in her receiving blood. CT chest ordered to assess for pulmonary infarct given concern for acute chest syndrome. Will require admission. Signed out to Van Glynn PA-C Consultations Consultation #1: Dr. Irvin Hematology Medical Decision Making Lab Data Result diagrams: 03/06/20 15:30 03/06/20 15:30 Labs: Lab Results 03/06/20 03/06/20 03/06/20 Range/Units 15:30 15:30 15:30 WBC 11.3 H (4.8-10.8) X10*3/uL RBC 1.96 L D (4.20-5.50) X10*6/uL Hgb 6.8 L* D (12.0-16.0) g/dl Hct 18.8 L* D (37-47) % MCV 95.9 (80-98) fL MCH 34.7 H (27.0-33.0) pg MCHC 36.2 H (31.0-35.0) g/dl RDW 25.0 H (11.0-16.0) % Plt Count 97 L (160-400) X10*3/uL MPV Not Reportable Immature Gran % (Auto) Cancelled Neut % (Auto) Cancelled Lymph % (Auto) Cancelled [place] % (Auto) Cancelled Eos % (Auto) Cancelled Baso % (Auto) Cancelled Lymph # (Auto) Cancelled [place] # (Auto) Cancelled Eos # (Auto) Cancelled Baso # (Auto) Cancelled Abs Immat Gran (auto) Cancelled Absolute Neuts (auto) Cancelled Absolute Nucleated RBC 2.330 H (0.0-0.012) X10*3/uL Nucleated RBC % (auto) 20.6 H (0.0-0.2) /100WBC Neutrophils % (Manual) 55 (45-73) % Band Neutrophils % 9 H (3-5) % Lymphocytes % (Manual) 23 (20-40) % Monocytes % (Manual) 10 (2-11) % Eosinophils % (Manual) 2 (0-4) % Basophils % (Manual) 1 (0-1) % Abs Neuts (Manual) 7.2 (2.2-7.9) X10*3/uL Lymphocytes # (Manual) 2.6 (0.6-4.8) X10*3/uL Monocytes # (Manual) 1.1 (0.0-1.2) X10*3/uL Eosinophils # (Manual) 0.2 (0.0-0.8) X10*3/UL Basophils # (Manual) 0.1 (0.0-0.3) X10*3/uL Nucleated RBCs 39 H (0-0) /100WBC Platelet Estimate DECREASED (NORMAL) Large Platelets PRESENT Plt Morphology Comment NOTED RBC Morphology NOTED Polychromasia 1+ Hypochromasia 1+ Basophilic Stippling 2+ Macrocytosis 1+ Sickle Cells 3+ Target Cells 1+ Champion-Barton Bodies PRESENT Absolute Retic 0.315 H (0.026-0.095) X10*6/uL Percent Retic 16.1 H (0.5-1.8) % Immature Retic Fraction 44.4 H (3.0-15.9) % Retic Hgb Equivalent 34.8 (30.0-35.0) pg PT 13.4 H (10.8-13.0) SEC INR 1.1 (0.9-1.1) APTT 30.2 (24.1-38.0) SEC Sodium 139 (135-145) mmol/L Potassium 3.9 (3.3-5.1) mmol/l Chloride 106 (96-108) mmol/L Carbon Dioxide 23 (22-29) mmol/L Anion Gap 14 (12-20) BUN 9 (9-16) mg/dL Creatinine 0.68 (0.5-1.4) mg/dL Estim Creat Clear Calc 86.4 Estimated GFR > 60 Random Glucose 106 (60-115) mg/dL Lactic Acid (0.5-2.0) mmol/L Calcium 8.7 (8.4-10.2) mg/dL Magnesium 2.2 (1.6-2.6) mg/dL Total Bilirubin 4.0 H (0.0-1.0) mg/dL Direct Bilirubin 1.6 H (0.0-0.5) mg/dL AST 171 H (5-31) U/L ALT 63 H (0-31) U/L Alkaline Phosphatase 153 H (39-117) U/L Troponin I High Sens (<3.5-17.0) ng/L B-Natriuretic Peptide (<100) pg/mL Total Protein 7.6 (6.5-8.0) g/dL Albumin 3.9 (3.5-5.0) g/dL Procalcitonin ng/mL Ethyl Alcohol mg/dL Blood Type Antibody Screen 03/06/20 03/06/20 03/06/20 Range/Units 15:30 15:30 15:30 WBC (4.8-10.8) X10*3/uL RBC (4.20-5.50) X10*6/uL Hgb (12.0-16.0) g/dl Hct (37-47) % MCV (80-98) fL MCH (27.0-33.0) pg MCHC (31.0-35.0) g/dl RDW (11.0-16.0) % Plt Count (160-400) X10*3/uL MPV Immature Gran % (Auto) Neut % (Auto) Lymph % (Auto) [place] % (Auto) Eos % (Auto) Baso % (Auto) Lymph # (Auto) [place] # (Auto) Eos # (Auto) Baso # (Auto) Abs Immat Gran (auto) Absolute Neuts (auto) Absolute Nucleated RBC (0.0-0.012) X10*3/uL Nucleated RBC % (auto) (0.0-0.2) /100WBC Neutrophils % (Manual) (45-73) % Band Neutrophils % (3-5) % Lymphocytes % (Manual) (20-40) % Monocytes % (Manual) (2-11) % Eosinophils % (Manual) (0-4) % Basophils % (Manual) (0-1) % Abs Neuts (Manual) (2.2-7.9) X10*3/uL Lymphocytes # (Manual) (0.6-4.8) X10*3/uL Monocytes # (Manual) (0.0-1.2) X10*3/uL Eosinophils # (Manual) (0.0-0.8) X10*3/UL Basophils # (Manual) (0.0-0.3) X10*3/uL Nucleated RBCs (0-0) /100WBC Platelet Estimate (NORMAL) Large Platelets Plt Morphology Comment RBC Morphology Polychromasia Hypochromasia Basophilic Stippling Macrocytosis Sickle Cells Target Cells Champion-Barton Bodies Absolute Retic (0.026-0.095) X10*6/uL Percent Retic (0.5-1.8) % Immature Retic Fraction (3.0-15.9) % Retic Hgb Equivalent (30.0-35.0) pg PT (10.8-13.0) SEC INR (0.9-1.1) APTT (24.1-38.0) SEC Sodium (135-145) mmol/L Potassium (3.3-5.1) mmol/l Chloride (96-108) mmol/L Carbon Dioxide (22-29) mmol/L Anion Gap (12-20) BUN (9-16) mg/dL Creatinine (0.5-1.4) mg/dL Estim Creat Clear Calc Estimated GFR Random Glucose (60-115) mg/dL Lactic Acid 1.1 (0.5-2.0) mmol/L Calcium (8.4-10.2) mg/dL Magnesium (1.6-2.6) mg/dL Total Bilirubin (0.0-1.0) mg/dL Direct Bilirubin (0.0-0.5) mg/dL AST (5-31) U/L ALT (0-31) U/L Alkaline Phosphatase (39-117) U/L Troponin I High Sens < 3.5 D (<3.5-17.0) ng/L B-Natriuretic Peptide 168 H (<100) pg/mL Total Protein (6.5-8.0) g/dL Albumin (3.5-5.0) g/dL Procalcitonin 0.28 ng/mL Ethyl Alcohol mg/dL Blood Type Antibody Screen 03/06/20 03/06/20 Range/Units 15:30 15:33 WBC (4.8-10.8) X10*3/uL RBC (4.20-5.50) X10*6/uL Hgb (12.0-16.0) g/dl Hct (37-47) % MCV (80-98) fL MCH (27.0-33.0) pg MCHC (31.0-35.0) g/dl RDW (11.0-16.0) % Plt Count (160-400) X10*3/uL MPV Immature Gran % (Auto) Neut % (Auto) Lymph % (Auto) [place] % (Auto) Eos % (Auto) Baso % (Auto) Lymph # (Auto) [place] # (Auto) Eos # (Auto) Baso # (Auto) Abs Immat Gran (auto) Absolute Neuts (auto) Absolute Nucleated RBC (0.0-0.012) X10*3/uL Nucleated RBC % (auto) (0.0-0.2) /100WBC Neutrophils % (Manual) (45-73) % Band Neutrophils % (3-5) % Lymphocytes % (Manual) (20-40) % Monocytes % (Manual) (2-11) % Eosinophils % (Manual) (0-4) % Basophils % (Manual) (0-1) % Abs Neuts (Manual) (2.2-7.9) X10*3/uL Lymphocytes # (Manual) (0.6-4.8) X10*3/uL Monocytes # (Manual) (0.0-1.2) X10*3/uL Eosinophils # (Manual) (0.0-0.8) X10*3/UL Basophils # (Manual) (0.0-0.3) X10*3/uL Nucleated RBCs (0-0) /100WBC Platelet Estimate (NORMAL) Large Platelets Plt Morphology Comment RBC Morphology Polychromasia Hypochromasia Basophilic Stippling Macrocytosis Sickle Cells Target Cells Champion-Barton Bodies Absolute Retic (0.026-0.095) X10*6/uL Percent Retic (0.5-1.8) % Immature Retic Fraction (3.0-15.9) % Retic Hgb Equivalent (30.0-35.0) pg PT (10.8-13.0) SEC INR (0.9-1.1) APTT (24.1-38.0) SEC Sodium (135-145) mmol/L Potassium (3.3-5.1) mmol/l Chloride (96-108) mmol/L Carbon Dioxide (22-29) mmol/L Anion Gap (12-20) BUN (9-16) mg/dL Creatinine (0.5-1.4) mg/dL Estim Creat Clear Calc Estimated GFR Random Glucose (60-115) mg/dL Lactic Acid (0.5-2.0) mmol/L Calcium (8.4-10.2) mg/dL Magnesium (1.6-2.6) mg/dL Total Bilirubin (0.0-1.0) mg/dL Direct Bilirubin (0.0-0.5) mg/dL AST (5-31) U/L ALT (0-31) U/L Alkaline Phosphatase (39-117) U/L Troponin I High Sens (<3.5-17.0) ng/L B-Natriuretic Peptide (<100) pg/mL Total Protein (6.5-8.0) g/dL Albumin (3.5-5.0) g/dL Procalcitonin ng/mL Ethyl Alcohol < 10 mg/dL Blood Type O Positive Antibody Screen NEGATIVE ECG Data Attestation: I personally reviewed and interpreted this ECG as follows: Interpretation: normal sinus rhythm, HR 75 BPM, nonspecific T wave abnormality, normal HI interval, normal QTc Discharge Plan Discharge Clinical Impression: Sickle cell crisis Patient Disposition: Admitted As Inpatient Prescriptions: No Action oxycodone-acetaminophen 7.5-325 mg tablet 2 tab PO Q4H RF: 0 multivitamin [Daily-Lazara] Tablet 1 tab PO DAILY RF: 0 albuterol sulfate 2.5 mg /3 mL (0.083 %) solution for nebulization 2.5 mg inhalation Q6H RF: 0 sertraline 25 mg tablet 50 mg PO DAILY RF: 0 omeprazole 20 mg capsule,delayed release(DR/EC) 20 mg PO DAILY RF: 0 hydroxyzine pamoate 25 mg capsule 25 mg PO QID PRN (Reason: anxiety) RF: 0
--- NOTE | 2020-03-06 13:34 | PC.NURSE ---
pt is currently resting quietly with eyes shut
[2020-03-06] MEDS: diphenhydrAMINE HCL 25 MG TABLET PO (15:18)
[2020-03-06 15:46] LABS: PLT CLUMP 1
[2020-03-06 15:48] LABS: Immature Retic Fraction 44.4 % (3.0-15.9); Mean Corpuscular HGB Conc 36.2 g/dl (31.0-35.0); Mean Corpuscular Hemoglobin 34.7 pg (27.0-33.0); Mean Corpuscular Volume 95.9 fL (80-98); Red Blood Count 1.96 X10*6/uL (4.20-5.50); Retic HGB Equivalent 34.8 pg (30.0-35.0); Reticulocyte Percent 16.1 % (0.5-1.8); Reticulocytes Absolute 0.315 X10*6/uL (0.026-0.095)
[2020-03-06 15:54] LABS: INTERNATIONAL NORM RATIO 1.1 (0.9-1.1); Prothrombin Time 13.4 SEC (10.8-13.0)
[2020-03-06 15:56] LABS: Partial Thromboplastin Time 30.2 SEC (24.1-38.0)
[2020-03-06 15:59] LABS: Platelet Count 97 X10*3/uL (160-400)
[2020-03-06 16:02] LABS: Hemoglobin 6.8 g/dl (12.0-16.0); NRBC Pct Auto 20.6 /100WBC (0.0-0.2); PLT ABN DIST 1; WBC ABN SCTR FOR CBC 1
[2020-03-06 16:03] LABS: Hematocrit 18.8 % (37-47)
[2020-03-06] MEDS: 0.9 % Sodium Chloride 1,000 ML 999 ML IVCONT (16:08)
[2020-03-06 16:09] LABS: Ethanol < 10 mg/dL; Lactic Acid 1.1 mmol/L (0.5-2.0)
[2020-03-06 16:14] LABS: Alanine Aminotransferase 63 U/L (0-31); Albumin Level 3.9 g/dL (3.5-5.0); Alkaline Phosphatase 153 U/L (39-117); Anion Gap 14 (12-20); Aspartate Amino Transferase 171 U/L (5-31); Bilirubin Direct 1.6 mg/dL (0.0-0.5); Blood Urea Nitrogen 9 mg/dL (9-16); Calcium 8.7 mg/dL (8.4-10.2); Carbon Dioxide 23 mmol/L (22-29); Chloride 106 mmol/L (96-108); Creatinine Clr Calc Pharmacy 86.4; Estimated Glomerular Filt Rate > 60; Glucose Random 106 mg/dL (60-115); Magnesium 2.2 mg/dL (1.6-2.6); Potassium 3.9 mmol/l (3.3-5.1); Sodium 139 mmol/L (135-145); Total Protein 7.6 g/dL (6.5-8.0)
--- NOTE | 2020-03-06 16:16 | CT_ITS ---
EXAMINATION: CT CHEST WITHOUT CONTRAST CLINICAL INFORMATION: Sickle cell crisis. COMPARISON: Chest radiograph earlier today and CT chest 10/08/2019. TECHNIQUE: Multidetector volumetric CT imaging of the chest was done. Axial MIP volume rendering provided. Sagittal and coronal reformatted images were obtained. This CT examination was performed using dose optimization techniques as appropriate, variously including the following: *Automated exposure control. *Adjustment of mA and/or kV according to patient size (this includes techniques or standardized protocols for targeted exams where dose is matched to indication/reason for exam; i.e. extremities or head). *Use of iterative reconstruction technique. DLP: 211 mGy-cm FINDINGS: LUNGS: Again seen is bilateral juxtapleural interlobar septation and honeycombing consistent with some fibrotic changes. No focal consolidation is seen. No other areas of infiltrate are detected. MEDIASTINUM: The heart is enlarged. A right chest port. Small mediastinal nodes are seen but no adenopathy is present. Pulmonary arteries are prominent in appearance and unchanged with the main pulmonary artery measuring about 3.3 cm consistent with pulmonary hypertension. PLEURA: There is no pleural effusion. No pleural mass or thickening. AXILLA: No lymphadenopathy. UPPER ABDOMEN: Again noted is a completely calcified spleen. OSSEOUS STRUCTURES: Sclerotic changes present throughout the skeleton, unchanged, consistent with changes secondary to sickle cell disease. CT/CT chest wo con IMPRESSION: Findings are essentially unchanged when compared to the prior study with no acute finding seen. Again seen is an enlarged heart and evidence of pulmonary hypertension with a small calcified spleen.
[2020-03-06 16:20] LABS: B Type Natriuretic Peptide 168 pg/mL (<100); Troponin-I High Sensitivity < 3.5 ng/L (<3.5-17.0)
[2020-03-06 16:32] LABS: Procalcitonin 0.28 ng/mL
[2020-03-06 16:33] LABS: Band Neutrophils Percent 9 % (3-5); Basophils Percent Manual 1 % (0-1); Eosinophils Percent Manual 2 % (0-4); Lymphocytes Percent Manual 23 % (20-40); Monocytes Percent Manual 10 % (2-11); Neutrophils Percent Manual 55 % (45-73); Nucleated Red Blood Cells 39 /100WBC (0-0)
[2020-03-06 16:34] LABS: Basophilic Stippling 2+; Macrocytosis 1+; RBC Morphology NOTED; Sickle Cells 3+; Target Cells 1+
[2020-03-06 16:35] LABS: Howell Jolly Bodies PRESENT; Hypochromasia 1+; Large Platelet PRESENT; Platelet Estimate DECREASED (NORMAL); Platelet Morphology Comment NOTED; Polychromasia 1+
[2020-03-06 16:36] LABS: Basophils Abs Manual 0.1 X10*3/uL (0.0-0.3); Eosinophils Absolute Manual 0.2 X10*3/UL (0.0-0.8); Lymphocytes Absolute Manual 2.6 X10*3/uL (0.6-4.8); Monocytes Absolute Manual 1.1 X10*3/uL (0.0-1.2); Neutrophils Absolute Manual 7.2 X10*3/uL (2.2-7.9); White Blood Count 11.3 X10*3/uL (4.8-10.8)
[2020-03-06] MEDS: diphenhydrAMINE HCL 50 MG/ML VIAL 12.5 MG IVPUSH (16:51)
[2020-03-06] MEDS: HYDROmorphone HCl 1 MG/ML SYRINGE IVPUSH ×2 (16:52→19:21)
[2020-03-06 17:55] LABS: COVID-19 Test Negative (Negative)
--- NOTE | 2020-03-06 19:15 | PC.NURSE ---
1 unit of prbc infused w/o difficulty. site intact. pt denies any s/s of reaction to blood. will continue to monitor pt.
[2020-03-06] MEDS: diphenhydrAMINE HCL 50 MG/ML VIAL 25 MG IVPUSH (19:19)
--- NOTE | 2020-03-06 19:22 | PC.NURSE ---
pt medicated for pain and itching. will continue to monitor pt.
[2020-03-06] MEDS: Lactated Ringers 1,000 ML 100 ML IVCONT (21:00)
--- NOTE | 2020-03-06 21:30 | PC.NURSE ---
2nd unit of prbc up and running w/o difficulty. site intact. pt educated on s/s of reaction to blood and denies any complaints at this time. will continue to monitor pt.
--- NOTE | 2020-03-06 21:45 | PC.NURSE ---
VS OBTAINED 15 MINS AFTER TRANSFUSION STARTED AND WNL. PT DENIES S/S OF REACTION. WILL CONTINUE TO MONTIOR PT.
[2020-03-06 22:14] LABS: Uric Acid 10.3 mg/dL (2.4-5.7)
--- NOTE | 2020-03-06 22:35 | PC.NURSE ---
BLOOD CONTINUES TO INFUSE W/O DIFFICULTY, SITE INTACT.
--- NOTE | 2020-03-06 23:22 | P.HPHOSP_ITS ---
History of Present Illness Date of Service: 03/06/20 Chief Complaint: Sickle cell crisis This is a 50-year-old female with past medical history of sickle cell, bipolar, PTSD, cocaine abuse, alcohol abuse who presents to the hospital with significant pain all over her body but mostly in her left wrist. Patient reports that she woke up this morning with pain shooting from her wrist, which she feels exacerbated her sickle cell crisis. Patient reports that she has a history of gout and feels like her wrist is having a gouty flare. She is also having pain in her right arm, legs, chest but denies any shortness of breath, no cough, no sputum production. She denies any abdominal pain, no nausea or vomiting, no diarrhea or constipation. She uses cocaine and last used on Thursday, she is also complaining of itching all over her body. On arrival to the ED hemodynamically stable with no significant abnormal vitals Labs are significant for WBC count of 11.3, hemoglobin of 6.8, hematocrit of 18.8, uric acid of 10.3, total bili of 4.0, direct bili of 1.6, AST of 171, ALT of 63, alk-phos of 153, BNP of 168, procalcitonin of 0.28, COVID-19 negative, chest CT shows bilateral juxtapleural interlobar septation and honeycombing consistent with some fibrotic changes which were seen previously with no new changes, no focal consolidation. And no other area of infiltrates detected. Patient will be admitted for further management past medical history: Bipolar, sickle cell disease, PTSD, cocaine abuse, alcohol abuse, GERD surgical history: Cholecystectomy, section, ankle surgery Family history: significant for diabetes Social history: History appears that patient is of smoker, lives alone and uses cocaine Review of Systems Review of Systems: Yes all other systems are reviewed and are negative [facility] Medical History Bipolar 1 disorder Cocaine abuse GERD (gastroesophageal reflux disease) PTSD (post-traumatic stress disorder) Sickle cell anemia Surgical History (Updated 12/05/19 @ 17:09 by Samuel Irvin MD) Hx of cholecystectomy Social History Household Members: Unknown / Unable to assess Housing: Unknown / Unable to assess Alcohol intake: current Alcohol intake frequency: a few times a week Alcohol type: beer Smoking Status: Light tobacco smoker Use of substances other than those prescribed or required for medical reasons: No Substance Use Type: Crack/Cocaine Advance Directives: No Advance Directives Information Provided: No service: No Current occupational status: disabled Meds Allergies Allergy/AdvReac Type Severity Reaction Status Date / Time prochlorperazine Allergy Severe ANAPHYLAXIS Verified 12/05/19 01:32 [From COMPAZINE] Home Medications Medication Instructions Recorded Confirmed Type albuterol sulfate 2.5 mg INHALATION Q6H 12/05/19 03/07/20 History hydroxyzine pamoate 25 mg PO QID PRN 12/05/19 03/07/20 History multivitamin [Daily-Lazara] 1 tab PO DAILY 12/05/19 03/07/20 History omeprazole 20 mg PO DAILY 12/05/19 03/07/20 History oxycodone-acetaminophen 2 tab PO Q4H 12/05/19 12/05/19 History sertraline 50 mg PO DAILY 12/05/19 03/07/20 History Physical Exam Vital Signs and Narrative: Vital Signs: Last Vital Signs Temp 98.6 F 03/06/20 21:45 Pulse 77 03/06/20 22:33 Resp 18 03/06/20 22:33 BP 156/93 H 03/06/20 22:33 Pulse Ox 96 03/06/20 20:48 Body Mass Index 22.3 Const: General: cooperative and no acute distress Orientation/consciousness: patient oriented x3 Eyes: General: appearance normal, both eyes and all related structures Pupils: Equal, round and reactive pupils present Resp: Effort & Inspection: normal respiratory effort and able to speak in complete sentences Cardio: Rate: regular rate Rhythm: regular rhythm GI: Palpation (GI): Soft to palpation Auscultation: normal bowel sounds Skin: General skin exam: no rashes or lesions noted Neuro: General: patient oriented x3 Cranial nerves: Yes Equal, round and reactive pupils present Cognition (Neuro): normal cognition Extrem: Other: Significantly tender of the left wrist on even light touching. Has no swelling, no erythema noted, no warmth. General: Yes no pedal edema Results Labs CBC and Chem 7: 03/06/20 15:30 03/06/20 15:30 Labs: Laboratory Results - last 24 hr 03/06/20 03/06/20 03/06/20 15:30 15:30 15:30 MCV 95.9 MCH 34.7 H MCHC 36.2 H RDW 25.0 H Plt Count 97 L MPV Not Reportable Immature Gran % (Auto) Cancelled Neut % (Auto) Cancelled Lymph % (Auto) Cancelled [place] % (Auto) Cancelled Eos % (Auto) Cancelled Baso % (Auto) Cancelled Lymph # (Auto) Cancelled [place] # (Auto) Cancelled Eos # (Auto) Cancelled Baso # (Auto) Cancelled Abs Immat Gran (auto) Cancelled Absolute Neuts (auto) Cancelled Absolute Nucleated RBC 2.330 H Nucleated RBC % (auto) 20.6 H Neutrophils % (Manual) 55 Band Neutrophils % 9 H Lymphocytes % (Manual) 23 Monocytes % (Manual) 10 Eosinophils % (Manual) 2 Basophils % (Manual) 1 Abs Neuts (Manual) 7.2 Lymphocytes # (Manual) 2.6 Monocytes # (Manual) 1.1 Eosinophils # (Manual) 0.2 Basophils # (Manual) 0.1 Nucleated RBCs 39 H Platelet Estimate DECREASED Large Platelets PRESENT Plt Morphology Comment NOTED RBC Morphology NOTED Polychromasia 1+ Hypochromasia 1+ Basophilic Stippling 2+ Macrocytosis 1+ Sickle Cells 3+ Target Cells 1+ [place] Bodies PRESENT Absolute Retic 0.315 H Percent Retic 16.1 H Immature Retic Fraction 44.4 H Retic Hgb Equivalent 34.8 PT 13.4 H INR 1.1 APTT 30.2 Anion Gap 14 Estim Creat Clear Calc 86.4 Estimated GFR > 60 Random Glucose 106 Lactic Acid Uric Acid Calcium 8.7 Magnesium 2.2 Total Bilirubin 4.0 H Direct Bilirubin 1.6 H AST 171 H ALT 63 H Alkaline Phosphatase 153 H Troponin I High Sens B-Natriuretic Peptide Total Protein 7.6 Albumin 3.9 Procalcitonin Ethyl Alcohol COVID-19 ([facility]) COVID-19 Clin Com Blood Type Antibody Screen 03/06/20 03/06/20 03/06/20 15:30 15:30 15:30 MCV MCH MCHC RDW Plt Count MPV Immature Gran % (Auto) Neut % (Auto) Lymph % (Auto) [place] % (Auto) Eos % (Auto) Baso % (Auto) Lymph # (Auto) [place] # (Auto) Eos # (Auto) Baso # (Auto) Abs Immat Gran (auto) Absolute Neuts (auto) Absolute Nucleated RBC Nucleated RBC % (auto) Neutrophils % (Manual) Band Neutrophils % Lymphocytes % (Manual) Monocytes % (Manual) Eosinophils % (Manual) Basophils % (Manual) Abs Neuts (Manual) Lymphocytes # (Manual) Monocytes # (Manual) Eosinophils # (Manual) Basophils # (Manual) Nucleated RBCs Platelet Estimate Large Platelets Plt Morphology Comment RBC Morphology Polychromasia Hypochromasia Basophilic Stippling Macrocytosis Sickle Cells Target Cells [place] Bodies Absolute Retic Percent Retic Immature Retic Fraction Retic Hgb Equivalent PT INR APTT Anion Gap Estim Creat Clear Calc Estimated GFR Random Glucose Lactic Acid 1.1 Uric Acid Calcium Magnesium Total Bilirubin Direct Bilirubin AST ALT Alkaline Phosphatase Troponin I High Sens < 3.5 D B-Natriuretic Peptide 168 H Total Protein Albumin Procalcitonin 0.28 Ethyl Alcohol COVID-19 ([facility]) COVID-19 Clin Com Blood Type Antibody Screen 03/06/20 03/06/20 03/06/20 15:30 15:33 17:23 MCV MCH MCHC RDW Plt Count MPV Immature Gran % (Auto) Neut % (Auto) Lymph % (Auto) [place] % (Auto) Eos % (Auto) Baso % (Auto) Lymph # (Auto) [place] # (Auto) Eos # (Auto) Baso # (Auto) Abs Immat Gran (auto) Absolute Neuts (auto) Absolute Nucleated RBC Nucleated RBC % (auto) Neutrophils % (Manual) Band Neutrophils % Lymphocytes % (Manual) Monocytes % (Manual) Eosinophils % (Manual) Basophils % (Manual) Abs Neuts (Manual) Lymphocytes # (Manual) Monocytes # (Manual) Eosinophils # (Manual) Basophils # (Manual) Nucleated RBCs Platelet Estimate Large Platelets Plt Morphology Comment RBC Morphology Polychromasia Hypochromasia Basophilic Stippling Macrocytosis Sickle Cells Target Cells [place] Bodies Absolute Retic Percent Retic Immature Retic Fraction Retic Hgb Equivalent PT INR APTT Anion Gap Estim Creat Clear Calc Estimated GFR Random Glucose Lactic Acid Uric Acid Calcium Magnesium Total Bilirubin Direct Bilirubin AST ALT Alkaline Phosphatase Troponin I High Sens B-Natriuretic Peptide Total Protein Albumin Procalcitonin Ethyl Alcohol < 10 COVID-19 ([facility]) Negative COVID-19 Clin Com See Note Blood Type O Positive Antibody Screen NEGATIVE 03/06/20 Unknown MCV MCH MCHC RDW Plt Count MPV Immature Gran % (Auto) Neut % (Auto) Lymph % (Auto) [place] % (Auto) Eos % (Auto) Baso % (Auto) Lymph # (Auto) [place] # (Auto) Eos # (Auto) Baso # (Auto) Abs Immat Gran (auto) Absolute Neuts (auto) Absolute Nucleated RBC Nucleated RBC % (auto) Neutrophils % (Manual) Band Neutrophils % Lymphocytes % (Manual) Monocytes % (Manual) Eosinophils % (Manual) Basophils % (Manual) Abs Neuts (Manual) Lymphocytes # (Manual) Monocytes # (Manual) Eosinophils # (Manual) Basophils # (Manual) Nucleated RBCs Platelet Estimate Large Platelets Plt Morphology Comment RBC Morphology Polychromasia Hypochromasia Basophilic Stippling Macrocytosis Sickle Cells Target Cells [place] Bodies Absolute Retic Percent Retic Immature Retic Fraction Retic Hgb Equivalent PT INR APTT Anion Gap Estim Creat Clear Calc Estimated GFR Random Glucose Lactic Acid Uric Acid 10.3 H Calcium Magnesium Total Bilirubin Direct Bilirubin AST ALT Alkaline Phosphatase Troponin I High Sens B-Natriuretic Peptide Total Protein Albumin Procalcitonin Ethyl Alcohol COVID-19 ([facility]) COVID-19 Clin Com Blood Type Antibody Screen Imaging Radiologist's Impressions: Impressions Chest X-Ray 03/06/20 12:01 IMPRESSION: No acute cardiopulmonary findings. Chest CT 03/06/20 16:16 IMPRESSION: Findings are essentially unchanged when compared to the prior study with no acute finding seen. Again seen is an enlarged heart and evidence of pulmonary hypertension with a small calcified spleen. Assessment and Plan (1) Gout flare: Qualifiers: Gout site: wrist Gout etiology: other secondary cause Laterality: left Qualified Code(s): M10.432 - Other secondary gout, left wrist Status: Acute (2) Sickle cell crisis: Status: Acute (3) Sickle cell anemia: Qualifiers: Sickle-cell associated disorders: with crisis with other complication Qualified Code(s): D57.09 - Hb-SS disease with crisis with other specified complication Status: Acute 50-year-old female who presents to the hospital with complaints of right wrist pain, and also sickle cell crisis found to have sickle cell anemia # sickle cell crisis - has elevated total bili, direct bili, as well as low hemoglobin of 6.9 and hematocrit of 18.8 - complaining of pain all over, but specifically move on her right wrist Plan: - IV fluids - 2 units of PRBC ordered by ED, will follow CBC - pain control # sickle cell anemia - hemoglobin of 6.8, has elevated bili - will be receiving 2 units of PRBC - will follow CBC - Hematology-Oncology consulted by ED # gout flare - patient reports history of gout, her uric acid has been elevated in the past - uric acid is 10 today, has significant tenderness of right wrist - will started on prednisone daily - monitor symptoms DVT prophylaxis: Lovenox
[2020-03-07] VITALS (10 sets, daily range): BP systolic 99–130; BP diastolic 52–78; PULSE 72–82; RESP 16–23; TEMP 36.1–37.3; O2SAT 90–96
--- NOTE | 2020-03-07 00:15 | PC.NURSE ---
PT STATES IM FEELING A LITTLE BETTER , PT ON MONITOR WITH HR 77, SKIN W/D. WILL CONTINUE TO MONITOR PT.
[2020-03-07] MEDS: HYDROmorphone HCl 0.5 MG/0.5 ML SYRINGE IVPUSH ×2 (00:49→06:35)
[2020-03-07] MEDS: Morphine Sulfate 4 MG/ML CARTRIDGE IVPUSH ×2 (02:50→08:34)
--- NOTE | 2020-03-07 03:05 | PC.NURSE ---
LACTATED RINGERS UP AND RUNNING ON PUMP. PT RESTING IN STRETCHER, ON MONITOR WITH A HR OF 79. PT REMAINS ALERT, RESPIRATIONS EASY, N/L. SKIN W/D.
--- NOTE | 2020-03-07 06:39 | PC.NURSE ---
PT REQUESTED PAIN MEDS AND WAS MEDICATED PER [facility] FOR PAIN. WILL CONTINUE TO MONITOR PT.
[2020-03-07 07:07] LABS: Anion Gap 15 (12-20); Blood Urea Nitrogen 10 mg/dL (9-16); Calcium 8.6 mg/dL (8.4-10.2); Carbon Dioxide 20 mmol/L (22-29); Chloride 108 mmol/L (96-108); Estimated Glomerular Filt Rate > 60; Glucose Random 102 mg/dL (60-115); Potassium 4.5 mmol/l (3.3-5.1); Sodium 138 mmol/L (135-145)
[2020-03-07 07:57] LABS: Hematocrit 25.7 % (37-47); Hemoglobin 9.3 g/dl (12.0-16.0); Mean Corpuscular HGB Conc 36.2 g/dl (31.0-35.0); Mean Corpuscular Hemoglobin 34.7 pg (27.0-33.0); Mean Corpuscular Volume 95.9 fL (80-98); PLT CLUMP 1; Red Blood Count 2.68 X10*6/uL (4.20-5.50); Red Cell Distribution Width 21.8 % (11.0-16.0)
[2020-03-07 07:59] LABS: WBC ABN SCTR FOR CBC 1
[2020-03-07] MEDS: Lactated Ringers 1,000 ML 100 ML IVCONT ×2 (08:10→22:01)
[2020-03-07 08:18] LABS: Band Neutrophils Percent 3 % (3-5); Basophils Percent Manual 1 % (0-1); Eosinophils Percent Manual 2 % (0-4); Lymphocytes Percent Manual 8 % (20-40); Metamyelocytes Percent 1 %; Monocytes Percent Manual 7 % (2-11); Neutrophils Percent Manual 78 % (45-73); Nucleated Red Blood Cells 18 /100WBC (0-0)
[2020-03-07 08:19] LABS: Macrocytosis 1+; RBC Morphology NOTED; Sickle Cells 3+
[2020-03-07 08:20] LABS: Howell Jolly Bodies PRESENT; Platelet Estimate DECREASED (NORMAL); Polychromasia 2+
[2020-03-07 08:21] LABS: Large Platelet PRESENT; Platelet Morphology Comment NOTED
[2020-03-07 08:22] LABS: Basophilic Stippling 1+
[2020-03-07 08:23] LABS: Basophils Abs Manual 0.1 X10*3/uL (0.0-0.3); Eosinophils Absolute Manual 0.3 X10*3/UL (0.0-0.8); Metamyelocytes Absolute 0.1 X10*3/uL; Monocytes Absolute Manual 0.9 X10*3/uL (0.0-1.2); Neutrophils Absolute Manual 10.3 X10*3/uL (2.2-7.9); White Blood Count 12.7 X10*3/uL (4.8-10.8)
[2020-03-07 08:24] LABS: Platelet Count 86 X10*3/uL (160-400)
[2020-03-07] MEDS: predniSONE 20 MG TABLET 40 MG PO (08:29)
[2020-03-07] MEDS: diphenhydrAMINE HCL 25 MG TABLET PO ×2 (11:21→19:38)
[2020-03-07] MEDS: HYDROmorphone HCl 1 MG/ML SYRINGE IVPUSH ×3 (11:21→21:29)
--- NOTE | 2020-03-07 11:53 | MHC.CM.PN ---
pt lives alone in apt. she uses a walker as needed. 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 she also has two sons that live in the area and help her out. one of her sons will provide transport at dc. pt denies the need for vna at dc. dc plan is home c barrel and receiver aligner's. cm to cont. to follow.
--- NOTE | 2020-03-07 13:18 | P.PNIM_ITS ---
Subjective Subjective Date of Service: 03/07/20 Interval History: Admitted due to generalized body ache and left wrist pain, patient complaining of persistent left wrist pain requesting for higher dose of Dilaudid also requesting for Benadryl for itching, no fever no chills. Review of Systems General no headache , no dizziness no fever chills. CVS no chest pain, no palpitation. Respiratory no cough, no shortness of breath Gastrointestinal no nausea, no vomiting, no abdominal pain Physical Exam Vital Signs: Vital Signs: Last Vital Signs Temp 97.4 F 03/07/20 11:58 Pulse 82 03/07/20 11:58 Resp 18 03/07/20 11:58 BP 103/61 03/07/20 11:58 Pulse Ox 90 L 03/07/20 11:58 Body Mass Index 22.3 General no acute distress. Neck supple no JVD. CVS regular rate rhythm, Respiratory lungs clear to auscultation, no respiratory distressi. Gastrointestinal abdomen soft, nontender, bowel sounds audible, no guarding , no rigidity. Extremities left wrist swollen, tender to touch, no open wound, no erythema Neuro nonfocal speech clear. Skin no rash Objective Data Current Medications Generic Name Dose Route Start Last Admin Trade Name Freq PRN Reason Stop Dose Admin Acetaminophen 650 mg 03/06/20 20:48 Acetaminophen 325 Mg Tablet PO Q6H PRN Pain, Mild (Pain Scale 1-3) Diphenhydramine HCl 25 mg 03/07/20 10:19 03/07/20 11:21 Diphenhydramine Hcl 25 Mg Tablet PO 25 mg Q6H PRN Administration Itching Docusate Sodium 100 mg 03/06/20 20:48 Docusate Sodium 100 Mg Capsule PO DAILY PRN Constipation Hydromorphone HCl 1 mg 03/07/20 11:10 03/07/20 11:21 Hydromorphone Hcl 1 Mg/Ml Syringe IVPUSH 1 mg Q4H PRN Administration Pain, Severe (Pain Scale 7-10) Lactated Ringer's 1,000 mls @ 100 mls/hr 03/06/20 20:48 03/07/20 08:10 Lr IVCONT 100 mls/hr .Q10H PHILLIP Administration Ondansetron HCl 4 mg 03/06/20 20:48 Ondansetron Hcl 4 Mg/2 Ml Vial IVPUSH Q8H PRN Nausea and Vomiting Prednisone 40 mg 03/07/20 09:00 03/07/20 08:29 Prednisone 20 Mg Tablet PO 40 mg DAILY PHILLIP Administration Sodium Chloride 3 ml 03/07/20 00:00 03/07/20 08:10 0.9 % Sodium Chloride Flush 3 Ml Syringe IVFLUSH Not Given QSHIFT [facility] Labs CBC & Chem 7: 03/07/20 06:14 03/07/20 06:14 Assessment and Plan (1) Gout flare: Status: Acute (2) Sickle cell crisis: Status: Acute (3) Sickle cell anemia: Status: Acute Assessment and Plan: 50-year-old female who presents to the hospital with complaints of right wrist pain, and also sickle cell crisis found to have sickle cell anemia # sickle cell crisis Patient complaining of persistent generalized body ache, will continue IV fluids, will DC IV morphine and increased dose of Dilaudid to 1 mg q.4 hours as needed for pain control Continue IV fluids supportive care # sickle cell anemia - hemoglobin of 6.8, elevated bili likely due to hemolysis, status post 2 units of PRBC hemoglobin improved to 9.3 and hematocrit 25.7follow cbc Await Hematology-Oncology consulted by ED # gout flare - patient reports history of gout, her uric acid has been elevated in the past, current uric acid 10, question pain related to sickle cell crisis versus gout flare-up, patient placed on prednisone continue to follow clinic course # active substance abuse as per patient uses cocaine intermittently refusing addiction consult due to generalized itch will place patient on by mouth Benadryl, strongly advised to abstain from illicit drug use # bipolar disorder/PTSD continue home medication DVT prophylaxis: Early ambulation
--- NOTE | 2020-03-07 15:42 | P.CNHO_ITS ---
Subjective - Subjective Chief complaint: Left arm and wrist pain Patient: known to practice within the last 3 years Consult date: 03/07/20 Primary Care Provider: Unknown Physician HPI - Consult Narrative Reason for consult: Sickle cell crisis Narrative: America Vizcaino is a 50 year old female with sickle cell anemia admitted for pain crisis. Her last admission to [facility] [place] [place] was in November 2019. She presents with 1-2 day history of generalized body aches as well as left forearm and wrist pain. Patient states that her left wrist pain is flare of gout that she gets now and then and not related to her sickle crisis. She denies fever, chills, cough or pleuritic chest pain. She is having some headaches but no visual symptoms. No nausea or emesis. She is requesting IV Benadryl stating that oral Benadryl is not helping her. Review of Systems - Constitutional Reports as per [facility] Medical History: Medical History (Last Reviewed 03/06/20 @ 12:35 by NICO Johnson) Bipolar 1 disorder Cocaine abuse GERD (gastroesophageal reflux disease) PTSD (post-traumatic stress disorder) Sickle cell anemia Surgical History: Surgical History (Last Reviewed 12/05/19 @ 06:08 by Donny Barron MD) Hx of cholecystectomy Smoking status: Light tobacco smoker Home Medications and Allergies Current Medications: Current Medications Generic Name Dose Route Start Last Admin Trade Name Freq PRN Reason Stop Dose Admin Acetaminophen 650 mg 03/06/20 20:48 Acetaminophen 325 Mg Tablet PO Q6H PRN Pain, Mild (Pain Scale 1-3) Diphenhydramine HCl 25 mg 03/07/20 10:19 03/07/20 11:21 Diphenhydramine Hcl 25 Mg Tablet PO 25 mg Q6H PRN Administration Itching Docusate Sodium 100 mg 03/06/20 20:48 Docusate Sodium 100 Mg Capsule PO DAILY PRN Constipation Hydromorphone HCl 1 mg 03/07/20 11:10 03/07/20 11:21 Hydromorphone Hcl 1 Mg/Ml Syringe IVPUSH 1 mg Q4H PRN Administration Pain, Severe (Pain Scale 7-10) Lactated Ringer's 1,000 mls @ 100 mls/hr 03/06/20 20:48 03/07/20 08:10 Lr IVCONT 100 mls/hr .Q10H PHILLIP Administration Ondansetron HCl 4 mg 03/06/20 20:48 Ondansetron Hcl 4 Mg/2 Ml Vial IVPUSH Q8H PRN Nausea and Vomiting Prednisone 40 mg 03/07/20 09:00 03/07/20 08:29 Prednisone 20 Mg Tablet PO 40 mg DAILY PHILLIP Administration Sodium Chloride 3 ml 03/07/20 00:00 03/07/20 08:10 0.9 % Sodium Chloride Flush 3 Ml Syringe IVFLUSH Not Given QSHIFT [facility] Home Medications Medication Instructions Recorded Confirmed Type albuterol sulfate 2.5 mg INHALATION Q6H 12/05/19 03/07/20 History hydroxyzine pamoate 25 mg PO QID PRN 12/05/19 03/07/20 History multivitamin [Daily-Lazara] 1 tab PO DAILY 12/05/19 03/07/20 History omeprazole 20 mg PO DAILY 12/05/19 03/07/20 History oxycodone-acetaminophen 2 tab PO Q4H 12/05/19 12/05/19 History sertraline 50 mg PO DAILY 12/05/19 03/07/20 History Allergies Allergy/AdvReac Type Severity Reaction Status Date / Time prochlorperazine Allergy Severe ANAPHYLAXIS Verified 12/05/19 01:32 [From COMPAZINE] Physical Exam Vital signs: Vital Signs Temp 97.4 F 03/07/20 11:58 Pulse 82 03/07/20 11:58 Resp 18 03/07/20 11:58 BP 103/61 03/07/20 11:58 Pulse Ox 90 L 03/07/20 11:58 Intake & Output 03/06/20 03/07/20 03/07/20 18:59 06:59 18:59 Intake Total 1000 / 2700 700 / 2700 1480 / 1480 Balance 1000 / 2700 700 / 2700 1480 / 1480 Intake: Intake, Oral Amount 480 / 480 Intake (Blood Product) Amount 0 / 700 700 / 700 Red Blood Cells (E0382) Unit 0 / 350 350 / 350 [id number] Red Blood Cells (E0382) Unit 350 / 350 [id number] Intake, IV Amount 1000 / 2000 1000 / 1000 0.9 % Sodium Chloride 1,000 ml 1000 / 1000 @ 999 mls/hr IVCONT .Q1H1M [facility] Rx#:[id number] Lactated Ringers 1,000 ml @ 100 1000 / 1000 mls/hr IVCONT .Q10H [facility] Rx#: [id number] Other: Breakfast % Eaten 100% Lunch % Eaten 100% Number of Unmeasured Voids 1 Urine Bedpan Urine Color Yellow Weight 58.967 kg Weight 58.967 kg - Constitutional Present: mild distress - Routine HEENT Exam Head: Present: normal inspection - Routine Neck Exam Present: supple. Absent: lymphadenopathy - Routine Respiratory Exam Absent: respiratory distress, rhonchi, stridor, wheezes - Routine Cardiovascular Exam Cardiovascular: Present: S1, S2 - Routine Abdominal Exam Present: soft Hem/Onc Consult Result - Labs CBC & Chem 7: 03/07/20 06:14 03/07/20 06:14 Labs: Short CBC 03/06/20 03/07/20 Range/Units 15:30 06:14 WBC 11.3 H 12.7 H (4.8-10.8) X10*3/uL Hgb 6.8 L* D 9.3 L D (12.0-16.0) g/dl Hct 18.8 L* D 25.7 L D (37-47) % Plt Count 97 L 86 L (160-400) X10*3/uL BMP 03/06/20 03/07/20 15:30 06:14 Sodium 139 138 Potassium 3.9 4.5 Chloride 106 108 Carbon Dioxide 23 20 L BUN 9 10 Creatinine 0.68 0.66 Calcium 8.7 8.6 Liver Function 03/06/20 Range/Units 15:30 Total Bilirubin 4.0 H (0.0-1.0) mg/dL Direct Bilirubin 1.6 H (0.0-0.5) mg/dL AST 171 H (5-31) U/L ALT 63 H (0-31) U/L Alkaline Phosphatase 153 H (39-117) U/L Albumin 3.9 (3.5-5.0) g/dL Assessment and Plan (1) Sickle cell crisis Status: Acute 1. This is a 50-year-old woman with sickle cell anemia admitted for sickle cell crisis. She however states that her left wrist pain is related to flare of gout and not usual sickle pain crisis. However she also states that she has diffuse body aches and chest pain. CT chest performed in the ED did not reveal infiltrates or pneumonia. She is not febrile. She responded well to blood transfusion. She is receiving IV hydration and narcotic pain medications. She also takes hydroxyurea 500 mg b.i.d. which can be resumed at this time. She does not have acute chest syndrome. Continue with current management. I thank you for this consult.
[2020-03-07] MEDS: Acetaminophen 325 MG TABLET 650 MG PO (19:38)
[2020-03-08] MEDS: HYDROmorphone HCl 1 MG/ML SYRINGE IVPUSH ×3 (01:36→09:48)
[2020-03-08] MEDS: diphenhydrAMINE HCL 25 MG TABLET PO (01:37)
[2020-03-08 03:24] VITALS: PULSE 71; RESP 16; TEMP 36.7
[2020-03-08 07:34] VITALS: BP 97/60; PULSE 79; RESP 18; TEMP 36.6; O2SAT 92
[2020-03-08] MEDS: diphenhydrAMINE HCL 50 MG/ML VIAL 25 MG IVPUSH (08:56)
[2020-03-08] MEDS: Acetaminophen 325 MG TABLET 650 MG PO (08:56)
[2020-03-08] MEDS: predniSONE 20 MG TABLET 40 MG PO (08:56)
[2020-03-08] MEDS: 0.9 % Sodium Chloride Flush 3 ML SYRINGE IVFLUSH (08:59)
--- NOTE | 2020-03-08 11:54 | P.PNIM_ITS ---
Subjective Subjective Date of Service: 03/08/20 Interval History: Followed for sickle cell crisis , patient complaining of generalized itch, asking for IV Benadryl since patient gets significant age with a narcotics, has mostly being in bed, admits that left wrist swelling has improved. Review of Systems General generalized pain, generalized itch. CVS no chest pain, no palpitation. Respiratory no cough, no shortness of breath Gastrointestinal no nausea, no vomiting, no abdominal pain Physical Exam Vital Signs: Vital Signs: Last Vital Signs Temp 97.8 F 03/08/20 07:34 Pulse 79 03/08/20 07:34 Resp 18 03/08/20 07:34 BP 97/60 03/08/20 07:34 Pulse Ox 92 03/08/20 07:34 Body Mass Index 22.3 General no acute distress. Neck supple no JVD. CVS regular rate rhythm, no chest wall tenderness Respiratory lungs clear to auscultation, no respiratory distress. Gastrointestinal abdomen soft, nontender, bowel sounds audible, no guarding , no rigidity. Extremities left wrist swelling and tenderness significantly improved, no erythema Neuro nonfocal speech clear. Skin no rash, dry skin Objective Data Current Medications Generic Name Dose Route Start Last Admin Trade Name Freq PRN Reason Stop Dose Admin Acetaminophen 650 mg 03/06/20 20:48 03/08/20 08:56 Acetaminophen 325 Mg Tablet PO 650 mg Q6H PRN Administration Pain, Mild (Pain Scale 1-3) Diphenhydramine HCl 25 mg 03/08/20 08:46 03/08/20 08:56 Diphenhydramine Hcl 50 Mg/Ml Vial IVPUSH 25 mg Q6H PRN Administration Itching Docusate Sodium 100 mg 03/06/20 20:48 Docusate Sodium 100 Mg Capsule PO DAILY PRN Constipation Hydromorphone HCl 1 mg 03/07/20 11:10 03/08/20 09:48 Hydromorphone Hcl 1 Mg/Ml Syringe IVPUSH 1 mg Q4H PRN Administration Pain, Severe (Pain Scale 7-10) Lactated Ringer's 1,000 mls @ 100 mls/hr 03/06/20 20:48 03/08/20 03:14 Lr IVCONT Not Given .Q10H PHILLIP Ondansetron HCl 4 mg 03/06/20 20:48 Ondansetron Hcl 4 Mg/2 Ml Vial IVPUSH Q8H PRN Nausea and Vomiting Prednisone 40 mg 03/07/20 09:00 03/08/20 08:56 Prednisone 20 Mg Tablet PO 40 mg DAILY PHILLIP Administration Sodium Chloride 3 ml 03/07/20 00:00 03/08/20 08:59 0.9 % Sodium Chloride Flush 3 Ml Syringe IVFLUSH 3 ml QSHIFT PHILLIP Administration Labs CBC & Chem 7: 03/07/20 06:14 03/07/20 06:14 Microbiology Microbiology Results: Microbiology 03/06/20 15:33 Blood - Venous Blood Culture - Preliminary No growth after 24 hours. 03/06/20 15:29 Blood - Venous Blood Culture - Preliminary No growth after 24 hours. Assessment and Plan (1) Gout flare: Status: Acute (2) Sickle cell crisis: Status: Acute (3) Sickle cell anemia: Status: Acute Assessment and Plan: 50-year-old female who presents to the hospital with complaints of right wrist pain, and also sickle cell crisis found to have sickle cell anemia # sickle cell crisis Patient complaining of persistent generalized body ache, although looks comfortable, on IV fluids 100 mL/hour,on iv Dilaudid 1 mg q.4 hours as needed for pain control Patient seen by Dr. Anderson she recommend to resume hydroxyurea 500 mg b.i.d., continue supportive care Will DC IV fluid later in the day and start weaning Dilaudid to 1 mg q.5 hours as needed # sickle cell anemia - hemoglobin of 6.8 on admission likely due to hemolysis, status post 2 units of PRBC hemoglobin improved to 9.3 and hematocrit 25.7 follow cbc # gout flare - patient reports history of gout, her uric acid has been elevated in the past, current uric acid 10, question pain related to sickle cell crisis versus gout flare-up, patient placed on prednisone 40 mg Will start weaning prednisone 5 and treat for total 7-10 day course continue to follow clinic course. # active substance abuse as per patient uses cocaine intermittently refusing addiction consult, due to generalized itch will place patient on Benadryl, s trongly advised to abstain from illicit drug use # bipolar disorder/PTSD continue home medication DVT prophylaxis: Early ambulation
[2020-03-08 11:55] VITALS: BP 102/67; PULSE 71; RESP 18; TEMP 36.3; O2SAT 91
[2020-03-08] MEDS: Lactated Ringers 1,000 ML 100 ML IVCONT (12:14)
--- NOTE | 2020-03-08 12:27 | MHC.CM.PN ---
nurse customer care agent note electronic medical record reviewed along with case discussed with staff nurse and on multiple disciplinary rounds per documentation admitted ACUTE SICKLE CELL CRISIS (FOUND TO HAVE SICKLE CELL ANEMIA,- S/P 2 UNITS OF PACKED RED BLOOD CELL TRANSFUSION))GOUT FLARE UP AND COMPLAINTS OF RIGHT WRIST PAIN.. PLAN OF CARE ; CONTINUE TO MONITOR HEMATOLOGY /CHEMISTRY LABS MONITOR FOR EFFECTIVENESS OF PAIN MEDICATIONS ON IV DILAUDID Q4HRS PRN START TO WEAN DILAUDID TO 1 MG Q 5 HOURS PRN RESUME HYDROXYRUEA. PLAN TO STOP HER IV FLUIDS TODAY . PATIENT IS A ACTIVE SUBSTANCE ABUSE USES COCAINE INTERMITTENTLY AND REFUSES ADDICTION COUNSELING OR SUPPORT SERVICES, CONTINUE HER PSYCHIATRIC MEDS. WEANING FROM HER PO STEROIDS DISCHARGE PLAN- ANTICIPATE DISCHARGED E NO SERVICES SELF RESUMPTION OF HER CARE TRANSPORT NURSE HOURS SELF RESUMPTION F HER MENTAL HEALTH COUNSELING TRANSPORTATION PATIENTS SON.
--- NOTE | 2020-03-08 14:44 | P.DS_ITS ---
DS: Providers Provider Date of Service: 03/08/20 Date of admission: 03/06/20 20:48 Primary care physician: Unknown Physician Consults: 03/06/20 16:22 Consult to Hematology / Oncology Stat Consulting Provider: Samuel Irvin Reason for consultation: sickle cell crisis, conern for acute chest syndrome DS: Diagnosis Discharge Diagnosis (1) Gout flare: Status: Acute (2) Sickle cell crisis: Status: Acute (3) Sickle cell anemia: Status: Acute DS: Medications Discharge Medications Home Medications: Home Medications Medication Instructions Recorded Confirmed albuterol sulfate 2.5 mg INHALATION Q6H 12/05/19 03/07/20 hydroxyzine pamoate 25 mg PO QID PRN 12/05/19 03/07/20 multivitamin [Daily-Lazara] 1 tab PO DAILY 12/05/19 03/07/20 omeprazole 20 mg PO DAILY 12/05/19 03/07/20 oxycodone-acetaminophen 2 tab PO Q4H 12/05/19 12/05/19 sertraline 50 mg PO DAILY 12/05/19 03/07/20 DS: Summary Hospital Course Hospital Course: 50-year-old female who presents to the hospital with complaints of right wrist pain, and also sickle cell crisis found to have sickle cell anemia and exacerbation of gout # sickle cell crisis/sickle cell anemia Patient admitted with generalized body ache, and left wrist pain due to prior history of gout and elevated uric acid patient was treated with prednisone for possible left wrist gout and was also treated with IV Dilaudid, 2 units of packed RBC and IV fluids patient hematocrit improved patient was seen by Dr. Anderson and she recommended to resume hydroxyurea 500 b.i.d. but it was notified by nurse that patient left hospital against medical advice. # gout flare # active substance abuse as per patient uses cocaine intermittently refused addiction consult # bipolar disorder/PTSD continue home medication Time Spent with Patient Time attestation: Total time spent providing and/or coordinating discharge services: Discharge coordination time: Greater than 30 minutes Physical Exam Vital Signs: Vital Signs: Last Vital Signs Temp 97.4 F 03/08/20 11:55 Pulse 71 03/08/20 11:55 Resp 18 03/08/20 11:55 BP 102/67 03/08/20 11:55 Pulse Ox 91 L 03/08/20 11:55 Body Mass Index 22.3 General no acute distress. Neck supple no JVD. CVS regular rate rhythm, no chest wall tenderness Respiratory lungs clear to auscultation, no respiratory distress. Gastrointestinal abdomen soft, nontender, bowel sounds audible, no guarding , no rigidity. Extremities left wrist swelling and tenderness significantly improved, no erythema Neuro nonfocal speech clear. Skin no rash, dry skin DS: Data Data Completed and Pending Completed studies during hospitalization [Text1]: Procedures Detoxification Services for Substance Abuse Treatment (12/05/19) Transfusion of Nonautologous Red Blood Cells into Peripheral Vein, Percutaneous Approach (12/05/19) Labs on day of discharge: Laboratory Tests 03/06/20 03/06/20 03/06/20 15:30 15:30 15:30 WBC 11.3 H RBC 1.96 L D Hgb 6.8 L* D Hct 18.8 L* D MCV 95.9 MCH 34.7 H MCHC 36.2 H RDW 25.0 H Plt Count 97 L MPV Not Reportable Immature Gran % (Auto) Cancelled Neut % (Auto) Cancelled Lymph % (Auto) Cancelled Forest % (Auto) Cancelled Eos % (Auto) Cancelled Baso % (Auto) Cancelled Lymph # (Auto) Cancelled Forest # (Auto) Cancelled Eos # (Auto) Cancelled Baso # (Auto) Cancelled Abs Immat Gran (auto) Cancelled Absolute Neuts (auto) Cancelled Absolute Nucleated RBC 2.330 H Nucleated RBC % (auto) 20.6 H Neutrophils % (Manual) 55 Band Neutrophils % 9 H Lymphocytes % (Manual) 23 Monocytes % (Manual) 10 Eosinophils % (Manual) 2 Basophils % (Manual) 1 Metamyelocytes % Abs Neuts (Manual) 7.2 Lymphocytes # (Manual) 2.6 Monocytes # (Manual) 1.1 Eosinophils # (Manual) 0.2 Basophils # (Manual) 0.1 Metamyelocytes # Nucleated RBCs 39 H Platelet Estimate DECREASED Large Platelets PRESENT Plt Morphology Comment NOTED RBC Morphology NOTED Polychromasia 1+ Hypochromasia 1+ Basophilic Stippling 2+ Macrocytosis 1+ Sickle Cells 3+ Target Cells 1+ Champion-Hollenberg Bodies PRESENT Absolute Retic 0.315 H Percent Retic 16.1 H Immature Retic Fraction 44.4 H Retic Hgb Equivalent 34.8 PT 13.4 H INR 1.1 APTT 30.2 Sodium 139 Potassium 3.9 Chloride 106 Carbon Dioxide 23 Anion Gap 14 BUN 9 Creatinine 0.68 Estim Creat Clear Calc 86.4 Estimated GFR > 60 Random Glucose 106 Lactic Acid Uric Acid Calcium 8.7 Magnesium 2.2 Total Bilirubin 4.0 H Direct Bilirubin 1.6 H AST 171 H ALT 63 H Alkaline Phosphatase 153 H Troponin I High Sens B-Natriuretic Peptide Total Protein 7.6 Albumin 3.9 Procalcitonin Ethyl Alcohol COVID-19 ([facility]) [employer] Blood Type Antibody Screen 03/06/20 03/06/20 03/06/20 15:30 15:30 15:30 WBC RBC Hgb Hct MCV MCH MCHC RDW Plt Count MPV Immature Gran % (Auto) Neut % (Auto) Lymph % (Auto) Forest % (Auto) Eos % (Auto) Baso % (Auto) Lymph # (Auto) Forest # (Auto) Eos # (Auto) Baso # (Auto) Abs Immat Gran (auto) Absolute Neuts (auto) Absolute Nucleated RBC Nucleated RBC % (auto) Neutrophils % (Manual) Band Neutrophils % Lymphocytes % (Manual) Monocytes % (Manual) Eosinophils % (Manual) Basophils % (Manual) Metamyelocytes % Abs Neuts (Manual) Lymphocytes # (Manual) Monocytes # (Manual) Eosinophils # (Manual) Basophils # (Manual) Metamyelocytes # Nucleated RBCs Platelet Estimate Large Platelets Plt Morphology Comment RBC Morphology Polychromasia Hypochromasia Basophilic Stippling Macrocytosis Sickle Cells Target Cells Champion-Hollenberg Bodies Absolute Retic Percent Retic Immature Retic Fraction Retic Hgb Equivalent PT INR APTT Sodium Potassium Chloride Carbon Dioxide Anion Gap BUN Creatinine Estim Creat Clear Calc Estimated GFR Random Glucose Lactic Acid 1.1 Uric Acid Calcium Magnesium Total Bilirubin Direct Bilirubin AST ALT Alkaline Phosphatase Troponin I High Sens < 3.5 D B-Natriuretic Peptide 168 H Total Protein Albumin Procalcitonin 0.28 Ethyl Alcohol COVID-19 ([facility]) COVID-19 [employer] Blood Type Antibody Screen 03/06/20 03/06/20 03/06/20 15:30 15:33 17:23 WBC RBC Hgb Hct MCV MCH MCHC RDW Plt Count MPV Immature Gran % (Auto) Neut % (Auto) Lymph % (Auto) Forest % (Auto) Eos % (Auto) Baso % (Auto) Lymph # (Auto) Forest # (Auto) Eos # (Auto) Baso # (Auto) Abs Immat Gran (auto) Absolute Neuts (auto) Absolute Nucleated RBC Nucleated RBC % (auto) Neutrophils % (Manual) Band Neutrophils % Lymphocytes % (Manual) Monocytes % (Manual) Eosinophils % (Manual) Basophils % (Manual) Metamyelocytes % Abs Neuts (Manual) Lymphocytes # (Manual) Monocytes # (Manual) Eosinophils # (Manual) Basophils # (Manual) Metamyelocytes # Nucleated RBCs Platelet Estimate Large Platelets Plt Morphology Comment RBC Morphology Polychromasia Hypochromasia Basophilic Stippling Macrocytosis Sickle Cells Target Cells Champion-Hollenberg Bodies Absolute Retic Percent Retic Immature Retic Fraction Retic Hgb Equivalent PT INR APTT Sodium Potassium Chloride Carbon Dioxide Anion Gap BUN Creatinine Estim Creat Clear Calc Estimated GFR Random Glucose Lactic Acid Uric Acid Calcium Magnesium Total Bilirubin Direct Bilirubin AST ALT Alkaline Phosphatase Troponin I High Sens B-Natriuretic Peptide Total Protein Albumin Procalcitonin Ethyl Alcohol < 10 COVID-19 ([facility]) Negative COVID-19 Clin Com See Note Blood Type O Positive Antibody Screen NEGATIVE 03/06/20 03/07/20 03/07/20 Unknown 06:14 06:14 WBC 12.7 H RBC 2.68 L D Hgb 9.3 L D Hct 25.7 L D MCV 95.9 MCH 34.7 H MCHC 36.2 H RDW 21.8 H Plt Count 86 L MPV Not Reportable Immature Gran % (Auto) Cancelled Neut % (Auto) Cancelled Lymph % (Auto) Cancelled Forest % (Auto) Cancelled Eos % (Auto) Cancelled Baso % (Auto) Cancelled Lymph # (Auto) Cancelled Forest # (Auto) Cancelled Eos # (Auto) Cancelled Baso # (Auto) Cancelled Abs Immat Gran (auto) Cancelled Absolute Neuts (auto) Cancelled Absolute Nucleated RBC 2.670 H Nucleated RBC % (auto) 21.0 H Neutrophils % (Manual) 78 H Band Neutrophils % 3 Lymphocytes % (Manual) 8 L Monocytes % (Manual) 7 Eosinophils % (Manual) 2 Basophils % (Manual) 1 Metamyelocytes % 1 Abs Neuts (Manual) 10.3 H Lymphocytes # (Manual) 1.0 Monocytes # (Manual) 0.9 Eosinophils # (Manual) 0.3 Basophils # (Manual) 0.1 Metamyelocytes # 0.1 Nucleated RBCs 18 H Platelet Estimate DECREASED Large Platelets PRESENT Plt Morphology Comment NOTED RBC Morphology NOTED Polychromasia 2+ Hypochromasia Basophilic Stippling 1+ Macrocytosis 1+ Sickle Cells 3+ Target Cells Champion-Hollenberg Bodies PRESENT Absolute Retic Percent Retic Immature Retic Fraction Retic Hgb Equivalent PT INR APTT Sodium 138 Potassium 4.5 Chloride 108 Carbon Dioxide 20 L Anion Gap 15 BUN 10 Creatinine 0.66 Estim Creat Clear Calc 89.0 Estimated GFR > 60 Random Glucose 102 Lactic Acid Uric Acid 10.3 H Calcium 8.6 Magnesium Total Bilirubin Direct Bilirubin AST ALT Alkaline Phosphatase Troponin I High Sens B-Natriuretic Peptide Total Protein Albumin Procalcitonin Ethyl Alcohol COVID-19 ([facility]) COVID-19 Clin Com Blood Type Antibody Screen Preliminary micro results at discharge 03/06/20 15:33 Blood Culture - Preliminary Blood - Venous No growth after 24 hours. 03/06/20 15:29 Blood Culture - Preliminary Blood - Venous No growth after 24 hours. Discharge Plan Discharge Patient Disposition: Left Against Medical Advice Referrals: Physician,Unknown [Primary Care Provider] - Discharge Medications: No Action oxycodone-acetaminophen 7.5-325 mg tablet 2 tab PO Q4H RF: 0 multivitamin [Daily-Lazara] Tablet 1 tab PO DAILY RF: 0 albuterol sulfate 2.5 mg /3 mL (0.083 %) solution for nebulization 2.5 mg inhalation Q6H RF: 0 sertraline 25 mg tablet 50 mg PO DAILY RF: 0 omeprazole 20 mg capsule,delayed release(DR/EC) 20 mg PO DAILY RF: 0 hydroxyzine pamoate 25 mg capsule 25 mg PO QID PRN (Reason: anxiety) RF: 0 Discharge Orders: Discharge Order (Routine); Ordered 03/08/20 Ordered By: Guzman Melgar Care Plan Goals: Left against medical advice Health Concerns: Sickle cell crisis Plan of Treatment: Outpatient follow-up with PCP
--- NOTE | 2020-03-08 15:08 | PC.NURSE ---
PATIENT LEAVING AMA. PATIENT REMOVED IV HERSELF. NOTIFIED DOCTOR HUE. PATIENT EDUCATED ON RISKS OF LEAVING AMA. PATIENT STATES I'M LEAVING ANYWAY . PATIENT SIGNED AMA PAPERWORK. NURSING COMPANY ACCOUNTANT NOTIFIED.
--- NOTE | 2020-03-08 15:41 | MHC.CM.PN ---
nurse direct support professional caregiver note i was notified that patient sigNED OUT AGAINST PEDIGREE TRACER
== END 2020-03-08 14:30 | disposition left against medical advice (07) | DRG 812 ==
LOC: HO.ED 16:39 → HO.EDOVER 22:29 → HO.S3 03-07 06:54
PROVIDERS: Physician Assistant; Admitting Provider Internal Medicine; Emergency Provider Emergency Medicine Emergency Medical Services; Visit Provider Hospitalist
DX: D57.00 Hb-SS disease with crisis, unspecified (principal); K21.9 Gastro-esophageal reflux disease without esophagitis; F43.10 Post-traumatic stress disorder, unspecified; F14.10 Cocaine abuse, uncomplicated; M10.9 Gout, unspecified; F31.9 Bipolar disorder, unspecified; Z20.828 Contact with and (suspected) exposure to other viral communicable diseases; Z79.899 Other long term (current) drug therapy
CPT/HCPCS: 36415; 36430; 71045; 71250; 80048; 80076; 80320; 83605; 83735; 83880; 84145; 84484; 84550; 85007; 85025; 85027; 85045; 85610; 85730; 86850; 86900; 86901; 86920; 86921; 87040; 87635; 93005; 96361; 96372; 96374; 96375; 96376; 99203; 99284; 99285; J1170; J1200; J2270; P9016; Q0163

== ENCOUNTER 2020-03-24 16:21 | Inpatient (IN) | payer OTHER, SELFPAY ==
[2020-03-24] VITALS (7 sets, daily range): BP systolic 93–147; BP diastolic 58–97; PULSE 86–97; RESP 17–20; TEMP 37–37.4; O2SAT 83–96; BMI 21.4
--- NOTE | 2020-03-24 16:39 | XR_ITS ---
EXAMINATION: XR CHEST CLINICAL INFORMATION: Chest pain, shortness of breath COMPARISON: Chest x-ray and CT 03/06/2020 TECHNIQUE: Frontal view of the chest was obtained. FINDINGS: Right chest wall port with the catheter tip overlying the mid to distal SVC. Stable cardiomediastinal silhouette.. Ovoid density projected over the right inferior lateral chest, likely nipple shadow. No dense consolidation. No effusion, edema or pneumothorax. No acute osseous pathology. XR/XR chest 1V IMPRESSION: No acute cardiac pulmonary findings.
--- NOTE | 2020-03-24 16:39 | ECG_ITS ---
Test Reason : FOURNII Blood Pressure : / mmHG Vent. Rate : 096 BPM Atrial Rate : 096 BPM P-R Int : 134 ms QRS Dur : 084 ms QT Int : 354 ms P-R-T Axes : 062 013 026 degrees QTc Int : 447 ms Normal sinus rhythm Septal infarct , age undetermined Abnormal ECG When compared with ECG of 06-MAR-2020 14:02, No significant change was found Referred By: Octavio Ibanez Electronically Signed By:Sujit Goddard
--- NOTE | 2020-03-24 16:44 | ED.GENADULT ---
HPI - General Adult General Chief complaint: General Medical Stated complaint: SICKLE CELL FLAREUP Time Seen by Provider: 03/24/20 16:39 Source: patient Mode of arrival: EMS Limitations: no limitations History of Present Illness HPI narrative: Of sickle cell anemia with frequent ED visits last visit was 03/06 with. history of alcohol and cocaine abuse last cocaine use was 2 days ago and had alcohol last night. Complaining of increased body pain chest pain for last 24 hours patient is supposed to be on oxygen but she is not using oxygen at home with her still is smoking and [facility] does not allow her to have oxygen at home. Patient was on Vicodin at home which is not working saturating 91% on 2 L on arrival Related Data Home Medications Medication Instructions Recorded Confirmed albuterol sulfate 2.5 mg INHALATION Q6H 12/05/19 03/07/20 hydroxyzine pamoate 25 mg PO QID PRN 12/05/19 03/07/20 multivitamin [Daily-Lazara] 1 tab PO DAILY 12/05/19 03/07/20 omeprazole 20 mg PO DAILY 12/05/19 03/07/20 oxycodone-acetaminophen 2 tab PO Q4H 12/05/19 12/05/19 sertraline 50 mg PO DAILY 12/05/19 03/07/20 Allergies Allergy/AdvReac Type Severity Reaction Status Date / Time prochlorperazine Allergy Severe ANAPHYLAXIS Verified 12/05/19 01:32 [From COMPAZINE] Review of Systems Review of Systems: Constitutional : No Weight loss, No Fever, No Chills ENT/Mouth : No sore throat, No Rhinorrhea Eyes: No Eye Pain, No Swelling Cardiovascular : +Chest Pain, no palpitations Respiratory : No Cough, No Sputum, +shortness of breath Gastrointestinal : no Nausea, No Vomiting, No Diarrhea, No abdominal Pain, no black stools Genitourinary : No Dysuria, No Urinary Frequency Musculoskeletal : No joint pain, No Myalgias, No Joint Swelling Skin : No Skin Lesions, No rash Neuro : No Weakness, No Numbness, No Dizziness, No Headache Psych : No Anxiety/Panic, No Depression Heme/Lymph: No Bruising, No Lymphadenopathy Endocrine : No Polyuria, No Polydipsia All other systems reviewed and are negative [facility] Past Medical History Medical History (Updated 03/24/20 @ 23:39 by Wayne Gray MD) Bipolar 1 disorder Cocaine abuse GERD (gastroesophageal reflux disease) PTSD (post-traumatic stress disorder) Sickle cell anemia Surgical History Hx of cholecystectomy Social History Social History Household Members: None Housing: Apartment Alcohol intake: unknown Smoking Status: Unknown if ever smoked Second Hand Smoke Exposure: Yes Use of substances other than those prescribed or required for medical reasons: Unknown Substance Use Type: Crack/Cocaine and Marijuana Advance Directives: No Advance Directives Information Provided: Yes service: No Current occupational status: disabled Physical Exam Vital Signs: Vital Signs: Last Vital Signs Temp 98.6 F 03/24/20 22:36 Pulse 86 03/24/20 22:36 Resp 18 03/24/20 22:36 BP 109/58 L 03/24/20 22:36 Pulse Ox 94 03/24/20 22:00 Body Mass Index 21.4 Appearance: Alert. Oriented X3. No acute distress. Eyes: Pupils equal, round and reactive to light. ENT: Pharynx normal. Neck: Normal inspection. Neck supple. CVS: Normal heart rate and rhythm. Pulses normal. Respiratory: No respiratory distress. Breath sounds normal. Abdomen: Soft and nontender. Bowel sounds are present, no mass palpable, no CVA tenderness Skin: Skin warm and dry. Normal skin color. Normal skin turgor. Extremities: No lower extremity edema. No calf tenderness Neuro: Oriented X 3. No motor deficit. No sensory deficit. Medical Decision Making MDM Narrative Medical decision making narrative: Patient's sickle cell anemia and came in crisis dropped her hemoglobin from 9.3 on 03/07 to 7.3 now waiting for retic count. Will give blood transfusion admit for pain control and hydration patient has elevated retic count suggestive of crisis Lab Data Lab results reviewed: Yes I reviewed the patient's lab results. Result diagrams: 03/24/20 16:43 03/24/20 16:43 Labs: Lab Results 03/24/20 03/24/20 03/24/20 Range/Units 16:43 16:43 16:43 WBC 12.4 H (4.8-10.8) X10*3/uL RBC 2.12 L D (4.20-5.50) X10*6/uL Hgb 7.3 L D (12.0-16.0) g/dl Hct 19.5 L* D (37-47) % MCV 92.0 (80-98) fL MCH 34.4 H (27.0-33.0) pg MCHC 37.4 H (31.0-35.0) g/dl RDW 19.9 H (11.0-16.0) % Plt Count 157 L D (160-400) X10*3/uL MPV 12.3 (9.4-12.3) fL Immature Gran % (Auto) 0.6 H (0.0-0.4) % Neut % (Auto) 70.0 (45-73) % Lymph % (Auto) 12.2 L (20-40) % Dare % (Auto) 15.0 H (2-11) % Eos % (Auto) 1.6 (0-4) % Baso % (Auto) 0.6 (0-2) % Lymph # (Auto) 1.5 (1.2-4.9) X10*3/uL Dare # (Auto) 1.9 H (0.1-1.2) X10*3/uL Eos # (Auto) 0.2 (0.0-0.4) X10*3/uL Baso # (Auto) 0.1 (0.0-0.2) X10*3/uL Abs Immat Gran (auto) 0.07 H (0.00-0.03) X10*3/uL Absolute Neuts (auto) 8.6 H (2.0-8.3) X10*3/uL Absolute Nucleated RBC 0.960 H (0.0-0.012) X10*3/uL Nucleated RBC % (auto) 7.8 H (0.0-0.2) /100WBC Smear Tech's Comments VERIFIED PT 13.8 H (10.8-13.0) SEC INR 1.2 H (0.9-1.1) D-Dimer TNP Sodium 136 (135-145) mmol/L Potassium 4.8 (3.3-5.1) mmol/L Chloride 103 (96-108) mmol/L Carbon Dioxide 21 L (22-29) mmol/L Anion Gap 17 (12-20) BUN 18 H D (9-16) mg/dL Creatinine 0.85 (0.5-1.4) mg/dL Estim Creat Clear Calc 69.1 Estimated GFR > 60 Random Glucose 117 H (60-115) mg/dL Calcium 8.9 (8.4-10.2) mg/dL Total Bilirubin 5.3 H (0.0-1.0) mg/dL Direct Bilirubin 2.1 H (0.0-0.5) mg/dL AST 362 H (5-31) U/L ALT 134 H (0-31) U/L Alkaline Phosphatase 179 H (39-117) U/L Troponin I High Sens (<3.5-17.0) ng/L Total Protein 8.0 (6.5-8.0) g/dL Albumin 4.2 (3.5-5.0) g/dL Lipase 55 (8-78) U/L COVID-19 ([facility]) (Negative) COVID-19 Clin Com Blood Type Antibody Screen 03/24/20 03/24/20 03/24/20 Range/Units 16:43 16:44 18:30 WBC (4.8-10.8) X10*3/uL RBC (4.20-5.50) X10*6/uL Hgb (12.0-16.0) g/dl Hct (37-47) % MCV (80-98) fL MCH (27.0-33.0) pg MCHC (31.0-35.0) g/dl RDW (11.0-16.0) % Plt Count (160-400) X10*3/uL MPV (9.4-12.3) fL Immature Gran % (Auto) (0.0-0.4) % Neut % (Auto) (45-73) % Lymph % (Auto) (20-40) % Dare % (Auto) (2-11) % Eos % (Auto) (0-4) % Baso % (Auto) (0-2) % Lymph # (Auto) (1.2-4.9) X10*3/uL Dare # (Auto) (0.1-1.2) X10*3/uL Eos # (Auto) (0.0-0.4) X10*3/uL Baso # (Auto) (0.0-0.2) X10*3/uL Abs Immat Gran (auto) (0.00-0.03) X10*3/uL Absolute Neuts (auto) (2.0-8.3) X10*3/uL Absolute Nucleated RBC (0.0-0.012) X10*3/uL Nucleated RBC % (auto) (0.0-0.2) /100WBC Smear Tech's Comments PT (10.8-13.0) SEC INR (0.9-1.1) D-Dimer Sodium (135-145) mmol/L Potassium (3.3-5.1) mmol/L Chloride (96-108) mmol/L Carbon Dioxide (22-29) mmol/L Anion Gap (12-20) BUN (9-16) mg/dL Creatinine (0.5-1.4) mg/dL Estim Creat Clear Calc Estimated GFR Random Glucose (60-115) mg/dL Calcium (8.4-10.2) mg/dL Total Bilirubin (0.0-1.0) mg/dL Direct Bilirubin (0.0-0.5) mg/dL AST (5-31) U/L ALT (0-31) U/L Alkaline Phosphatase (39-117) U/L Troponin I High Sens < 3.5 (<3.5-17.0) ng/L Total Protein (6.5-8.0) g/dL Albumin (3.5-5.0) g/dL Lipase (8-78) U/L COVID-19 ([facility]) Negative (Negative) COVID-19 Clin Com See Note Blood Type O Positive Antibody Screen NEGATIVE ECG Data Attestation: I personally reviewed and interpreted this ECG as follows: Interpretation: Normal sinus rhythm normal intervals no acute ST T wave changes normal axis impression no acute ischemia Discharge Plan Discharge Clinical Impression: Sickle cell anemia with crisis Anemia Qualifiers: Anemia type: unspecified type Qualified Code(s): D64.9 - Anemia, unspecified Patient Disposition: Admitted As Inpatient
[2020-03-24] MEDS: Folic Acid 1 MG TABLET PO (16:56)
[2020-03-24] MEDS: diphenhydrAMINE HCL 50 MG/ML VIAL 25 MG IVPUSH (16:56)
[2020-03-24] MEDS: HYDROmorphone HCl 1 MG/ML SYRINGE IVPUSH ×2 (16:56→18:33)
[2020-03-24] MEDS: 0.9 % Sodium Chloride 1,000 ML 999 ML IVCONT ×2 (16:57→18:33)
[2020-03-24] MEDS: ondansetron HCL 4 MG/2 ML VIAL IVPUSH (16:57)
[2020-03-24 16:59] LABS: Basophils Absolute Auto 0.1 X10*3/uL (0.0-0.2); Basophils Percent Auto 0.6 % (0-2); Eosinophils Absolute Auto 0.2 X10*3/uL (0.0-0.4); Eosinophils Percent Auto 1.6 % (0-4); Hematocrit 19.5 % (37-47); Hemoglobin 7.3 g/dl (12.0-16.0); INTERNATIONAL NORM RATIO 1.2 (0.9-1.1); Imm Gran Abs Auto 0.07 X10*3/uL (0.00-0.03); Imm Gran Pct Auto 0.6 % (0.0-0.4); Lymphocytes Absolute Auto 1.5 X10*3/uL (1.2-4.9); Lymphocytes Percent Auto 12.2 % (20-40); MANUAL DIFF FLAG SCAN; Mean Corpuscular HGB Conc 37.4 g/dl (31.0-35.0); Mean Corpuscular Hemoglobin 34.4 pg (27.0-33.0); Mean Platelet Volume 12.3 fL (9.4-12.3); Monocytes Absolute Auto 1.9 X10*3/uL (0.1-1.2); NRBC Pct Auto 7.8 /100WBC (0.0-0.2); Neutrophils Absolute Auto 8.6 X10*3/uL (2.0-8.3); Platelet Count 157 X10*3/uL (160-400); Prothrombin Time 13.8 SEC (10.8-13.0); Red Blood Count 2.12 X10*6/uL (4.20-5.50); Red Cell Distribution Width 19.9 % (11.0-16.0); SCAN SMEAR FLAG 1; White Blood Count 12.4 X10*3/uL (4.8-10.8)
[2020-03-24 17:21] LABS: Troponin-I High Sensitivity < 3.5 ng/L (<3.5-17.0)
[2020-03-24 17:33] LABS: Alanine Aminotransferase 134 U/L (0-31); Albumin Level 4.2 g/dL (3.5-5.0); Alkaline Phosphatase 179 U/L (39-117); Anion Gap 17 (12-20); Aspartate Amino Transferase 362 U/L (5-31); Bilirubin Direct 2.1 mg/dL (0.0-0.5); Bilirubin Total 5.3 mg/dL (0.0-1.0); Blood Urea Nitrogen 18 mg/dL (9-16); Calcium 8.9 mg/dL (8.4-10.2); Carbon Dioxide 21 mmol/L (22-29); Chloride 103 mmol/L (96-108); Creatinine Clr Calc Pharmacy 69.1; Estimated Glomerular Filt Rate > 60; Glucose Random 117 mg/dL (60-115); Lipase 55 U/L (8-78); Potassium 4.8 mmol/L (3.3-5.1); Sodium 136 mmol/L (135-145)
[2020-03-24 17:38] LABS: SLIDE REVIEW VERIFIED
[2020-03-24 18:18] LABS: COVID-19 Test Negative (Negative)
--- NOTE | 2020-03-24 20:20 | PC.NURSE ---
patient currently sleeping, rr wisaml, called blood bank regarding patients blood and they stated that the due to the patient having sickle cell and positive antibiodies that it would be a wait
--- NOTE | 2020-03-24 21:00 | PC.NURSE ---
patient a&o, refuses to keep o2, pulse ox on, pt also refusing to keep monitor on
--- NOTE | 2020-03-24 23:29 | PM.IMHP ---
History of Present Illness Date of Service: 03/24/20 Chief Complaint: Generalized pain 50 y/o female with known PMHX of sickle cell disease who presented from home c/o generalized body pain. Patient is a very poor historian. Reported that for the past 1 day has been having generalized body pain, 10/10 in intensity, all over the body including her chest. Per ED patient is supposed to be on oxygen at home but per patient she is not allowed to have oxygen at home . Patient has been admitted to our facility mutiple time, last admission 2 weeks ago. On presentation oxygen level was noted to be 91% on 2 liters nasal cannula. BP of 109/58 mmHg and HR of 86. Initial labs showed Hgb of 7.3 which dropped from past admission of 9.3. Elevated LFT's which has worsen since last admission with elevated total bilirubin. One unit of PRBC ordered per ED attending and decision for admission was given. Patient was seen and examined at the bedside, laying down in bed, resting comfortably after was medicated with dilaudid and benadryl per ED. Sleepy now which makes difficult to obtain any meaninful hx. ROS as above otherwise negative. Physical exam positive for cachectic female, dry skin. Last use of cocaine 2 days ago and alcohol 1 day ago. PMHX: Bipolar 1 disorder Cocaine abuse GERD (gastroesophageal reflux disease) PTSD (post-traumatic stress disorder) Sickle cell anemia PSx: Hx of cholecystectomy Toxic habits: Cocaine abuser, alcohol abuser Review of Systems Constitutional: Constitutional: Reports as per HPI and Reports other (generalized pain) [facility] Medical History (Updated 03/25/20 @ 00:46 by Wayne Gray MD) Bipolar 1 disorder Cocaine abuse GERD (gastroesophageal reflux disease) PTSD (post-traumatic stress disorder) Sickle cell anemia Functional capacity: independent ambulation Surgical History Hx of cholecystectomy Social History Household Members: None Housing: Apartment Alcohol intake: unknown Smoking Status: Unknown if ever smoked Second Hand Smoke Exposure: Yes Use of substances other than those prescribed or required for medical reasons: Unknown Substance Use Type: Crack/Cocaine and Marijuana Advance Directives: No Advance Directives Information Provided: Yes service: No Current occupational status: disabled Meds Allergies Allergy/AdvReac Type Severity Reaction Status Date / Time prochlorperazine Allergy Severe ANAPHYLAXIS Verified 12/05/19 01:32 [From COMPAZINE] Home Medications Medication Instructions Recorded Confirmed Type albuterol sulfate 2.5 mg INHALATION Q6H 12/05/19 03/25/20 History hydroxyzine pamoate 25 mg PO QID PRN 12/05/19 03/25/20 History multivitamin [Daily-Lazara] 1 tab PO DAILY 12/05/19 03/25/20 History omeprazole 20 mg PO DAILY 12/05/19 03/25/20 History oxycodone-acetaminophen 2 tab PO Q4H 12/05/19 03/25/20 History sertraline 50 mg PO DAILY 12/05/19 03/25/20 History Physical Exam Vital Signs and Narrative: Vital Signs: Last Vital Signs Temp 98.6 F 03/24/20 22:36 Pulse 86 03/24/20 22:36 Resp 18 03/24/20 22:36 BP 109/58 L 03/24/20 22:36 Pulse Ox 94 03/24/20 22:00 Body Mass Index 21.4 Const: General: cooperative, comfortable and no acute distress Orientation/consciousness: oriented to person, oriented to place and oriented to time HENMT: Head: Yes normal to inspection Eyes: General: appearance normal, both eyes and all related structures Neck: Yes normal visual inspection Chest: Chest palpation & inspection: normal inspection of the chest Resp: Effort & Inspection: normal respiratory effort Cardio: Jugular venous distension: no JVD Rate: regular rate Rhythm: regular rhythm Heart sounds: S1 normal heart sound present and S2 normal heart sound present GI: Inspection: Yes normal to inspection Skin: General skin exam: no rashes or lesions noted Neuro: General: oriented to person, oriented to place and oriented to time Cognition (Neuro): normal cognition Results Labs CBC and Chem 7: 03/24/20 16:43 03/24/20 16:43 Labs: Laboratory Results - last 24 hr 03/24/20 03/24/20 03/24/20 16:43 16:43 16:43 MCV 92.0 MCH 34.4 H MCHC 37.4 H RDW 19.9 H Plt Count 157 L D MPV 12.3 Immature Gran % (Auto) 0.6 H Neut % (Auto) 70.0 Lymph % (Auto) 12.2 L [place] % (Auto) 15.0 H Eos % (Auto) 1.6 Baso % (Auto) 0.6 Lymph # (Auto) 1.5 [place] # (Auto) 1.9 H Eos # (Auto) 0.2 Baso # (Auto) 0.1 Abs Immat Gran (auto) 0.07 H Absolute Neuts (auto) 8.6 H Absolute Nucleated RBC 0.960 H Nucleated RBC % (auto) 7.8 H Smear Tech's Comments VERIFIED PT 13.8 H INR 1.2 H D-Dimer TNP Anion Gap 17 Estim Creat Clear Calc 69.1 Estimated GFR > 60 Random Glucose 117 H Calcium 8.9 Total Bilirubin 5.3 H Direct Bilirubin 2.1 H AST 362 H ALT 134 H Alkaline Phosphatase 179 H Troponin I High Sens Total Protein 8.0 Albumin 4.2 Lipase 55 COVID-19 ([facility]) [employer] Com Blood Type Antibody Screen 03/24/20 03/24/20 03/24/20 16:43 16:44 18:30 MCV MCH MCHC RDW Plt Count MPV Immature Gran % (Auto) Neut % (Auto) Lymph % (Auto) [place] % (Auto) Eos % (Auto) Baso % (Auto) Lymph # (Auto) [place] # (Auto) Eos # (Auto) Baso # (Auto) Abs Immat Gran (auto) Absolute Neuts (auto) Absolute Nucleated RBC Nucleated RBC % (auto) Smear Tech's Comments PT INR D-Dimer Anion Gap Estim Creat Clear Calc Estimated GFR Random Glucose Calcium Total Bilirubin Direct Bilirubin AST ALT Alkaline Phosphatase Troponin I High Sens < 3.5 Total Protein Albumin Lipase COVID-19 ([facility]) Negative COVID-19 [employer] Com See Note Blood Type O Positive Antibody Screen NEGATIVE Imaging Radiologist's Impressions: Impressions Chest X-Ray 03/24/20 16:39 IMPRESSION: No acute cardiac pulmonary findings. Assessment and Plan (1) Sickle cell anemia with crisis: Status: Acute 1 unit of PRBC in process Follow up repeat CBC after transfusion Pain control as needed Continue with oxygen supplementation Hematology consult (2) Elevated liver function tests: Status: Acute Follow up US abdomen (3) GERD (gastroesophageal reflux disease): Status: Acute continue with PPI home dose (4) Bipolar 1 disorder: Status: Acute continue with sertraline home dose
[2020-03-25] VITALS (11 sets, daily range): BP systolic 118–159; BP diastolic 52–84; PULSE 73–97; RESP 16–20; TEMP 37.5–38.5; O2SAT 85–99
[2020-03-25] MEDS: ondansetron HCL 4 MG/2 ML VIAL IVPUSH (01:31)
[2020-03-25] MEDS: HYDROmorphone HCl 1 MG/ML SYRINGE IVPUSH (01:34)
[2020-03-25] MEDS: Albuterol Sulfate (0.083%) 2.5 MG/3 ML VIAL.NEB INHALE ×2 (02:11→11:14)
--- NOTE | 2020-03-25 03:21 | PC.NURSE ---
assumed care of pt. pt resting in stretcher with occasional outbursts. pt wakes up and starts yelling out and thrashing about in stretcher and falls back to sleep. pt on monitor with hr 79. Will continue to monitor pt.
[2020-03-25] MEDS: hydrOXYzine HCL 25 MG TABLET PO ×3 (04:06→23:30)
--- NOTE | 2020-03-25 04:07 | PC.NURSE ---
PT C/O ITCHING. PT MEDICATED FOR ITCHING PER EMAR.
[2020-03-25 04:40] LABS: PLT CLUMP 1
[2020-03-25 04:42] LABS: Hematocrit 21.8 % (37-47); Hemoglobin 7.9 g/dl (12.0-16.0); Mean Corpuscular HGB Conc 36.2 g/dl (31.0-35.0); Mean Corpuscular Hemoglobin 33.2 pg (27.0-33.0); Mean Corpuscular Volume 91.6 fL (80-98); Mean Platelet Volume 11.9 fL (9.4-12.3); Platelet Count 113 X10*3/uL (160-400); Red Blood Count 2.38 X10*6/uL (4.20-5.50); Red Cell Distribution Width 19.7 % (11.0-16.0); White Blood Count 14.1 X10*3/uL (4.8-10.8)
[2020-03-25 04:49] LABS: NRBC Pct Auto 8.3 /100WBC (0.0-0.2)
--- NOTE | 2020-03-25 06:00 | US_ITS ---
EXAMINATION: US ABDOMEN COMPLETE CLINICAL INFORMATION: Elevated LFTs . COMPARISON: None TECHNIQUE: Real-time imaging of the abdominal viscera. FINDINGS: PANCREAS: Normal. ABDOMINAL AORTA: The proximal, mid, and distal segments are normal in caliber. INFERIOR VENA CAVA: Visualized portions are normal. LIVER: Liver is enlarged in size. The liver contour is normal. Parenchymal echogenicity is normal. No focal hepatic lesion. There is no intrahepatic biliary duct dilatation seen. GALLBLADDER: Normal. The gallbladder is physiologically distended without evidence of stones, sludge, polyps, wall thickening or pericholecystic fluid. COMMON BILE DUCT: Normal in caliber measuring 0.9 cm in diameter. RIGHT KIDNEY: Normal. No hydronephrosis. No renal calculi or focal parenchymal lesions. The kidney measures 11.2 cm in maximum dimension. LEFT KIDNEY: Normal. No hydronephrosis. No renal calculi or focal parenchymal lesions. The kidney measures 10.2 cm in maximum dimension. SPLEEN: The spleen has been removed.. FREE FLUID: None. US/US abdomen complete IMPRESSION: Hepatomegaly. No focal lesion seen. The spleen has been removed. Rest of the abdominal ultrasound is unremarkable.
--- NOTE | 2020-03-25 06:28 | PC.NURSE ---
PT RESTING IN STRETCHER, PT IS KEEPING NC ON FACE WITHOUT TAKING IT OFF. PT REMAINS ON MONITOR WITH A HR OF 73. PT WAKES TO VERBAL STIMULI AND IN NAD AT THIS TIME. WILL CONTINUE TO MONITOR PT.
[2020-03-25] MEDS: HYDROmorphone HCl 0.5 MG/0.5 ML SYRINGE IVPUSH ×4 (07:08→21:58)
[2020-03-25] MEDS: Heparin Sodium,Porcine 5,000 UNIT/ML VIAL 5000 UNIT SUBCUT (07:15)
--- NOTE | 2020-03-25 07:40 | PC.NURSE ---
Bedside abd U/S at this time
[2020-03-25 09:33] LABS: Immature Retic Fraction 16.9 % (3.0-15.9); Reticulocytes Absolute 0.421 X10*6/uL (0.026-0.095)
[2020-03-25 09:34] LABS: Retic HGB Equivalent 28.7 pg (30.0-35.0); Reticulocyte Percent 18.1 % (0.5-1.8)
[2020-03-25] MEDS: 0.9 % Sodium Chloride Flush 3 ML SYRINGE IVFLUSH ×2 (10:30→16:05)
[2020-03-25] MEDS: Multivitamin TABLET 1 TAB PO (10:30)
[2020-03-25] MEDS: Sertraline HCL 50 MG TABLET PO (10:30)
[2020-03-25] MEDS: Omeprazole 20 MG CAPSULE.DR PO (10:30)
[2020-03-25 10:42] LABS: Hemoglobin 7.8 g/dl (12.0-16.0); PLT CLUMP 1; Red Cell Distribution Width 19.9 % (11.0-16.0)
[2020-03-25 10:44] LABS: Mean Corpuscular HGB Conc 37.5 g/dl (31.0-35.0); Mean Corpuscular Hemoglobin 34.7 pg (27.0-33.0); Mean Corpuscular Volume 92.4 fL (80-98); Mean Platelet Volume 11.5 fL (9.4-12.3); Platelet Count 116 X10*3/uL (160-400); Red Blood Count 2.25 X10*6/uL (4.20-5.50)
--- NOTE | 2020-03-25 10:49 | PC.NURSE ---
Pt sleeping with intermittent periods of being awake and in pain, pt reports pain primarily in legs. Room air sat 85%, placed on 3lpm via nc and sat 97% requesting and given ice chips. Repeat BMP and CBC obtained. Accepted AM meds
[2020-03-25 11:03] LABS: NRBC Pct Auto 7.3 /100WBC (0.0-0.2); WBC ABN SCTR FOR CBC 1
[2020-03-25 11:09] LABS: Anion Gap 14 (12-20); Blood Urea Nitrogen 13 mg/dL (9-16); Calcium 8.5 mg/dL (8.4-10.2); Carbon Dioxide 21 mmol/L (22-29); Chloride 108 mmol/L (96-108); Creatinine Clr Calc Pharmacy 82.7; Estimated Glomerular Filt Rate > 60; Glucose Random 122 mg/dL (60-115); Hematocrit 20.8 % (37-47); Potassium 4.7 mmol/L (3.3-5.1); Sodium 138 mmol/L (135-145)
--- NOTE | 2020-03-25 11:12 | MHC.CM.PN ---
IMM 03/25/20. EMR REVIEWED, CM MET WITH PT WHO IS ALERT AND ORIENTED HOWEVER APPEARS FIDGETY AND C/O PAIN AND CUT ASSESSMENT SHORT, CM DID NOTIFY NURSE OF PT'S PAIN. PT DENIES ANY USE OF DME AND REPORTS SHE NEEDS A WALKER AT HOME, CM WILL REQUEST PT EVAL FROM HOSPITALIST, PT DENIES VNA SERVICES AND REPORTS SHE HAS 45HRS A WEEK OF BLOOD BANK CREDIT CLERK HR, PT REPORTS SHE HAS A HEALTH CARE PROXY HOWEVER IS UNCLEAR OF WHO IS HER HCP AND WHO IS HER ALTERNATE, PT AT FIRST SAYS ITS HER SONS AND THEN HER BROTHER. CM REQUESTED COPY. PT VERIFIES PCP A FROM [facility]. DISCHARGE PLAN: HOME W/RESUMPTION OF BLOOD BANK CREDIT CLERK SERVICES THROUGH [facility], ? SHUTTLE FOR TRANSPORT. CM WILL FOLLOW PT FOR CHANGING DISCHARGE NEEDS.
[2020-03-25 11:16] LABS: White Blood Count 14.9 X10*3/uL (4.8-10.8)
[2020-03-25 11:20] LABS: Band Neutrophils Percent 10 % (3-5); Lymphocytes Absolute Manual 1.9 X10*3/uL (0.6-4.8); Lymphocytes Percent Manual 13 % (20-40); Metamyelocytes Absolute 0.3 X10*3/uL; Metamyelocytes Percent 2 %; Monocytes Absolute Manual 0.7 X10*3/uL (0.0-1.2); Monocytes Percent Manual 5 % (2-11); Neutrophils Absolute Manual 11.9 X10*3/uL (2.2-7.9); Neutrophils Percent Manual 70 % (45-73); Nucleated Red Blood Cells 12 /100WBC (0-0)
[2020-03-25 11:21] LABS: Macrocytosis 1+; Ovalocytes 1+; Polychromasia 1+; RBC Morphology NOTED; Sickle Cells 3+; Target Cells 1+
[2020-03-25 11:22] LABS: Hypochromasia 1+; Platelet Estimate SLIGHTLY DECREASED (NORMAL); Platelet Morphology Comment NORMAL; Stomatocytes 1+
--- NOTE | 2020-03-25 12:21 | P.PNIM_ITS ---
Subjective Subjective Date of Service: 03/25/20 Interval History: seen and examined around noon today reports pain controlled with current pain regime denies chest pain or sob. ROS General - no fevers or chills Cardiovascular - no chest pain Respiratory - no shortness of breath or cough Abdominal- no abdominal pain, nausea, vomiting, diarrhea Physical Exam Vital Signs: Vital Signs: Last Vital Signs Temp 101.3 F H 03/25/20 00:35 Pulse 83 03/25/20 11:15 Resp 20 03/25/20 10:42 BP 118/71 03/25/20 10:42 Pulse Ox 85 L 03/25/20 10:42 Body Mass Index 21.4 Const: Other: General - no acute distress, appears comfortable, cachectic Cardiovascular - regular rate and rhythm, S1-S2 Lungs - diminished, no distress Abdomen - soft, nontender, no rebound or guarding Extremities - no edema bilaterally Neuro - awake and alert, no focal deficits Objective Data Current Medications Generic Name Dose Route Start Last Admin Trade Name Freq PRN Reason Stop Dose Admin Albuterol Sulfate 2.5 mg 03/25/20 00:45 03/25/20 11:14 Albuterol Sulfate (0.083%) 2.5 Mg/3 Ml Vial.Neb INHALE 2.5 mg RQ6H PHILLIP Administration Hydroxyzine HCl 25 mg 03/25/20 00:45 03/25/20 04:06 Hydroxyzine Hcl 25 Mg Tablet PO 25 mg QID PRN Administration anxiety Lactated Ringer's 1,000 mls @ 100 mls/hr 03/25/20 12:30 Lr IVCONT .Q10H [facility] Multivitamins/Vitamin C 1 tab 03/25/20 09:00 03/25/20 10:30 Multivitamin Tablet PO 1 tab DAILY PHILLIP Administration Omeprazole 20 mg 03/25/20 06:30 03/25/20 10:30 Omeprazole 20 Mg Capsule.Dr PO 20 mg DAILY@0630 PHILLIP Administration Sertraline HCl 50 mg 03/25/20 09:00 03/25/20 10:30 Sertraline Hcl 50 Mg Tablet PO 50 mg DAILY PHILLIP Administration Sodium Chloride 3 ml 03/25/20 08:00 03/25/20 10:30 0.9 % Sodium Chloride Flush 3 Ml Syringe IVFLUSH 3 ml QSHIFT PHILLIP Administration Labs CBC & Chem 7: 03/25/20 10:33 03/25/20 10:33 Assessment and Plan (1) Sickle cell anemia: Status: Acute Assessment and Plan: This is a a 50 yo F with known Sickle Cell anemia who presents for pain crisis. 1. Sickle Cell anemia, pain crisis IVF and iv pain control h/h relatively stable, no need for transfusion at this time does not need hematology evaluation at this time 2. Hypoxia per patient, chronic but she does not use o2 at home monitor no symptoms at this time 3. Elevated LFTs chronic, mildly increased upon admission ultrasound negative for acute findings trend continue her chronic medications Full Code DVT pptx, mechanical due to low significant anemia / low platelets 4.
[2020-03-25 12:49] LABS: Alanine Aminotransferase 104 U/L (0-31); Albumin Level 3.8 g/dL (3.5-5.0); Alkaline Phosphatase 161 U/L (39-117); Aspartate Amino Transferase 265 U/L (5-31); Bilirubin Direct 1.9 mg/dL (0.0-0.5); Bilirubin Total 6.9 mg/dL (0.0-1.0); Total Protein 7.5 g/dL (6.5-8.0)
[2020-03-25] MEDS: Lactated Ringers 1,000 ML 100 ML IVCONT (13:36)
[2020-03-26] MEDS: 0.9 % Sodium Chloride Flush 3 ML SYRINGE IVFLUSH ×3 (00:38→14:59)
[2020-03-26] MEDS: Lactated Ringers 1,000 ML 100 ML IVCONT ×3 (00:39→20:40)
[2020-03-26 00:47] VITALS: RESP 14
[2020-03-26] MEDS: HYDROmorphone HCl 0.5 MG/0.5 ML SYRINGE IVPUSH ×2 (02:06→08:05)
--- NOTE | 2020-03-26 07:39 | PC.NURSE ---
pt linen changed, saturated in urine. pt cleaned up and given new clothes. pt given breakfast and on cellphone at this time.
[2020-03-26] MEDS: Multivitamin TABLET 1 TAB PO (08:04)
[2020-03-26] MEDS: Sertraline HCL 50 MG TABLET PO (08:04)
[2020-03-26 09:05] VITALS: RESP 16
[2020-03-26] MEDS: Albuterol Sulfate (0.083%) 2.5 MG/3 ML VIAL.NEB INHALE (11:51)
[2020-03-26 11:52] VITALS: PULSE 83; O2SAT 85
--- NOTE | 2020-03-26 12:25 | PC.NURSE ---
PT REFUSING BLOOD WORK.
--- NOTE | 2020-03-26 12:26 | PC.NURSE ---
pt refusing blood draws
[2020-03-26 12:28] VITALS: BP 111/57; PULSE 84; RESP 18; TEMP 37.8; O2SAT 96
--- NOTE | 2020-03-26 13:53 | HO.PM.IMPN ---
Subjective Subjective Date of Service: 03/26/20 Interval History: seen and examined in the ED this AM only complaint is of pain had temp yesterday and this AM -- patient refusing labs including repeat cbc + blood cultures last night despite explanation of what the potential harms are ROS General - no fevers or chills, pain Cardiovascular - no chest pain Respiratory - no shortness of breath or cough Abdominal- no abdominal pain, nausea, vomiting, diarrhea Physical Exam Vital Signs: Vital Signs: Last Vital Signs Temp 100.0 F 03/26/20 12:28 Pulse 84 03/26/20 12:28 Resp 18 03/26/20 12:28 BP 111/57 L 03/26/20 12:28 Pulse Ox 96 03/26/20 12:28 Body Mass Index 21.4 Const: Other: General - no acute distress, appears comfortable, cachectic Cardiovascular - regular rate and rhythm, S1-S2 Lungs - diminished, no distress Abdomen - soft, nontender, no rebound or guarding Extremities - no edema bilaterally Neuro - awake and alert, no focal deficits Objective Data Current Medications Generic Name Dose Route Start Last Admin Trade Name Freq PRN Reason Stop Dose Admin Albuterol Sulfate 2.5 mg 03/25/20 00:45 03/26/20 11:51 Albuterol Sulfate (0.083%) 2.5 Mg/3 Ml Vial.Neb INHALE 2.5 mg RQ6H PHILLIP Administration Hydroxyzine HCl 25 mg 03/25/20 00:45 03/25/20 23:30 Hydroxyzine Hcl 25 Mg Tablet PO 25 mg QID PRN Administration anxiety Lactated Ringer's 1,000 mls @ 100 mls/hr 03/25/20 12:30 03/26/20 08:11 Lr IVCONT 100 mls/hr .Q10H [facility]IP Administration Multivitamins/Vitamin C 1 tab 03/25/20 09:00 03/26/20 08:04 Multivitamin Tablet PO 1 tab DAILY [facility]IP Administration Omeprazole 20 mg 03/25/20 06:30 03/26/20 06:38 Omeprazole 20 Mg Capsule. PO Not Given DAILY@0630 [facility]IP Sertraline HCl 50 mg 03/25/20 09:00 03/26/20 08:04 Sertraline Hcl 50 Mg Tablet PO 50 mg DAILY [facility]IP Administration Sodium Chloride 3 ml 03/25/20 08:00 03/26/20 07:05 0.9 % Sodium Chloride Flush 3 Ml Syringe IVFLUSH 3 ml QSHIFT [facility]IP Administration Labs CBC & Chem 7: 03/25/20 10:33 03/25/20 10:33 Assessment and Plan (1) Sickle cell anemia: Status: Acute Assessment and Plan: This is a a 50 yo F with known Sickle Cell anemia who presents for pain crisis. 1. Sickle Cell anemia, pain crisis +temperature over night; pt refusing labs. will start empiric iv rocephin IVF and iv pain control -- transition her to PO oxycodone does not need hematology evaluation at this time 2. Hypoxia per patient, chronic but she does not use o2 at home monitor no symptoms at this time 3. Elevated LFTs chronic increased during this admission ultrasound negative for acute findings trend - refusing labs continue her chronic medications Full Code DVT pptx, mechanical due to low significant anemia / low platelets
[2020-03-26] MEDS: oxyCODONE HCl Immed Release 5 MG TABLET PO (14:52)
[2020-03-26] MEDS: cefTRIAXone sodium 1 GM in 0.9 % Sodium Chloride 50 ML IV (14:53)
[2020-03-26 15:50] VITALS: RESP 16
--- NOTE | 2020-03-26 19:52 | PC.NURSE ---
nurse to nurse report given to leonel carter.
[2020-03-26] MEDS: hydrOXYzine HCL 25 MG TABLET PO (20:40)
[2020-03-26] MEDS: oxyCODONE HCl Immed Release 5 MG TABLET 7.5 MG PO (20:40)
[2020-03-26] MEDS: Hydroxyurea 500 MG CAPSULE PO (20:59)
[2020-03-26 21:55] VITALS: BP 118/60; PULSE 80; RESP 18; TEMP 37.2; O2SAT 95
[2020-03-26 23:23] LABS: Mean Corpuscular HGB Conc 36.2 g/dl (31.0-35.0); Mean Platelet Volume 13.1 fL (9.4-12.3); PLT ABN DIST 1; PLT CLUMP 1; WBC ABN SCTR FOR CBC 1
[2020-03-26 23:25] LABS: Hematocrit 18.5 % (37-47); Mean Corpuscular Hemoglobin 34.4 pg (27.0-33.0); Mean Corpuscular Volume 94.9 fL (80-98); NRBC Pct Auto 7.8 /100WBC (0.0-0.2); Red Blood Count 1.95 X10*6/uL (4.20-5.50); Red Cell Distribution Width 22.1 % (11.0-16.0)
[2020-03-26 23:49] LABS: Hemoglobin 6.7 g/dl (12.0-16.0); Platelet Count 107 X10*3/uL (160-400); White Blood Count 12.6 X10*3/uL (4.8-10.8)
[2020-03-27] VITALS (12 sets, daily range): BP systolic 94–122; BP diastolic 45–64; PULSE 78–95; RESP 16–19; TEMP 36.4–37.3; O2SAT 91–95
[2020-03-27 00:44] LABS: Mean Corpuscular Volume 94.1 fL (80-98); PLT ABN DIST 1; PLT CLUMP 1; Red Blood Count 2.22 X10*6/uL (4.20-5.50); Red Cell Distribution Width 22.4 % (11.0-16.0); WBC ABN SCTR FOR CBC 1
[2020-03-27 00:46] LABS: Hemoglobin 7.5 g/dl (12.0-16.0); Mean Corpuscular HGB Conc 35.9 g/dl (31.0-35.0); Mean Corpuscular Hemoglobin 33.8 pg (27.0-33.0); NRBC Pct Auto 9.3 /100WBC (0.0-0.2)
[2020-03-27 00:49] LABS: Hematocrit 20.9 % (37-47)
[2020-03-27 01:06] LABS: Band Neutrophils Percent 3 % (3-5); Eosinophils Absolute Manual 0.6 X10*3/UL (0.0-0.8); Eosinophils Percent Manual 5 % (0-4); Lymphocytes Absolute Manual 2.9 X10*3/uL (0.6-4.8); Lymphocytes Percent Manual 24 % (20-40); Monocytes Absolute Manual 1.3 X10*3/uL (0.0-1.2); Monocytes Percent Manual 11 % (2-11); Neutrophils Absolute Manual 7.2 X10*3/uL (2.2-7.9); Nucleated Red Blood Cells 24 /100WBC (0-0)
[2020-03-27 01:07] LABS: Large Platelet PRESENT; Platelet Estimate DECREASED (NORMAL); RBC Morphology NOTED
[2020-03-27 01:10] LABS: Howell Jolly Bodies PRESENT; Microcytosis 1+; Platelet Morphology Comment NOTE; Sickle Cells 3+; Target Cells 1+
[2020-03-27 01:11] LABS: Hypochromasia 1+; Macrocytosis 2+; Polychromasia 3+; Tear Drop Cells 1+; Toxic Vacuolation PRESENT
[2020-03-27 01:12] LABS: Neutrophils Percent Manual 57 % (45-73)
[2020-03-27] MEDS: oxyCODONE HCl Immed Release 5 MG TABLET 7.5 MG PO ×4 (02:41→21:51)
[2020-03-27] MEDS: hydrOXYzine HCL 25 MG TABLET PO ×3 (02:42→18:40)
[2020-03-27] MEDS: Omeprazole 20 MG CAPSULE.DR PO (06:41)
[2020-03-27] MEDS: Lactated Ringers 1,000 ML 100 ML IVCONT ×2 (06:42→20:29)
[2020-03-27] MEDS: Multivitamin TABLET 1 TAB PO (07:52)
[2020-03-27] MEDS: Hydroxyurea 500 MG CAPSULE PO ×2 (07:52→20:28)
[2020-03-27] MEDS: Sertraline HCL 50 MG TABLET PO (07:52)
[2020-03-27] MEDS: Albuterol Sulfate (0.083%) 2.5 MG/3 ML VIAL.NEB INHALE ×2 (11:41→17:19)
--- NOTE | 2020-03-27 12:21 | P.PNIM_ITS ---
Subjective Subjective Date of Service: 03/27/20 Interval History: Seen in f/u for sickle cell anemia with crisis, c/o diffuse pain, H/H is lower. Hct 19. Review of Systems Gen: no fever Resp: no sob, no cough CV: no chest, no TONY, no leg edema GI: No n/v, no abd pain Neuro: No confusion Physical Exam Vital Signs: Vital Signs: Last Vital Signs Temp 99.2 F 03/27/20 08:00 Pulse 82 03/27/20 11:41 Resp 16 03/27/20 08:00 BP 94/58 L 03/27/20 08:00 Pulse Ox 93 03/27/20 08:00 Body Mass Index 21.4 General: AO X 3, no acute distress Resp: CTA bilateral CVS: S1,S2,RRR GI: +BS, NT, no distention Skin: No rash Neuro: motor grossly intact Psych: appropriate affect Objective Data Current Medications Generic Name Dose Route Start Last Admin Trade Name Freq PRN Reason Stop Dose Admin Albuterol Sulfate 2.5 mg 03/25/20 00:45 03/27/20 11:41 Albuterol Sulfate (0.083%) 2.5 Mg/3 Ml Vial.Neb INHALE 2.5 mg RQ6H PHILLIP Administration Hydromorphone HCl 0.25 mg 03/27/20 12:14 Hydromorphone Hcl 0.5 Mg/0.5 Ml Syringe IVPUSH Q4H PRN Pain, Severe (Pain Scale 7-10) Hydroxyurea 500 mg 03/26/20 21:00 03/27/20 07:52 Hydroxyurea 500 Mg Capsule PO 500 mg BID PHILLIP Administration Hydroxyzine HCl 25 mg 03/25/20 00:45 03/27/20 08:56 Hydroxyzine Hcl 25 Mg Tablet PO 25 mg QID PRN Administration anxiety Lactated Ringer's 1,000 mls @ 100 mls/hr 03/25/20 12:30 03/27/20 06:42 Lr IVCONT 100 mls/hr .Q10H [facility] Administration Ceftriaxone Sodium 1 gm/ 50 mls @ 100 mls/hr 03/26/20 14:00 03/26/20 15:31 Sodium Chloride IV Infused Q24H [facility]IP Infusion Multivitamins/Vitamin C 1 tab 03/25/20 09:00 03/27/20 07:52 Multivitamin Tablet PO 1 tab DAILY [facility]IP Administration Omeprazole 20 mg 03/25/20 06:30 03/27/20 06:41 Omeprazole 20 Mg Capsule. PO 20 mg DAILY@0630 [facility] Administration Oxycodone HCl 7.5 mg 03/26/20 18:22 03/27/20 08:56 Oxycodone Hcl Immed Release 5 Mg Tablet PO 7.5 mg Q6H PRN Administration Pain, Severe (Pain Scale 7-10) Sertraline HCl 50 mg 03/25/20 09:00 03/27/20 07:52 Sertraline Hcl 50 Mg Tablet PO 50 mg DAILY PHILLIP Administration Sodium Chloride 3 ml 03/25/20 08:00 03/27/20 07:52 0.9 % Sodium Chloride Flush 3 Ml Syringe IVFLUSH Not Given QSHIFT [facility] Labs CBC & Chem 7: 03/27/20 00:37 03/25/20 10:33 Microbiology Microbiology Results: Microbiology 03/26/20 00:00 Blood - Venous Blood Culture - Final 03/26/20 00:00 Blood - Venous Blood Culture - Final Assessment and Plan (1) Sickle cell anemia: Status: Acute Assessment and Plan: 50 yo F with known Sickle Cell anemia who presents for pain crisis. 1. Sickle Cell anemia, pain crisis -Transfuse 2 unis IVF and iv pain control -- transition her to PO oxycodone Oxygen 2. Hypoxia per patient, chronic but she does not use o2 at home monitor no symptoms at this time 3. Elevated LFTs chronic increased during this admission ultrasound negative for acute findings trend - refusing labs continue her chronic medications Full Code DVT pptx, mechanical due to low significant anemia / low platelets
[2020-03-27] MEDS: HYDROmorphone HCl 0.5 MG/0.5 ML SYRINGE 0.25 MG IVPUSH ×3 (12:34→22:36)
[2020-03-27] MEDS: cefTRIAXone sodium 1 GM in 0.9 % Sodium Chloride 50 ML IV (14:39)
[2020-03-28] VITALS (7 sets, daily range): BP systolic 100–142; BP diastolic 51–68; PULSE 78–87; RESP 16–20; TEMP 36.4–37.6; O2SAT 89–96
--- NOTE | 2020-03-28 | CT_ITS ---
EXAMINATION: CT ABDOMEN AND PELVIS WITHOUT CONTRAST CLINICAL INFORMATION: Abdominal pain COMPARISON: Previous abdominal ultrasound most recent 03/25/[address] of the abdomen and pelvis October 2018 TECHNIQUE: Multidetector volumetric imaging was performed from the superior aspect of the liver through the pubic symphysis. Sagittal and coronal reformatted images were obtained on the technologist's workstation. This CT examination was performed using dose optimization techniques as appropriate, variously including the following: *Automated exposure control *Adjustment of mA and/or kV according to patient size (this includes techniques or standardized protocols for targeted exams where dose is matched to indication/reason for exam; i.e. extremities or head) *Use of iterative reconstruction technique DLP: 316 mGy-cm FINDINGS: LUNG BASES: There is dependent atelectasis at the lung bases. The heart is enlarged. LIVER, GALLBLADDER, AND BILIARY TREE: The liver is enlarged, right lobe measuring 20 cm in length. The liver is increased in attenuation. No focal liver lesion is seen in the gallbladder is not identified. There is mild intrahepatic extrahepatic biliary duct dilatation. The common bile duct measures 1.2 centimeters. This is similar to previous exams. PANCREAS: Unremarkable. SPLEEN: The spleen is small and calcified. This is similar to previous exams. ADRENAL GLANDS: Unremarkable. KIDNEYS AND URETERS: The left kidney is slightly lobulated in shape. Kidneys are otherwise unremarkable. BLADDER: Bladder is not optimally distended. There may be mild diffuse bladder wall thickening. GASTROINTESTINAL TRACT: The small and large bowel are unremarkable. The appendix is not identified with certainty. No inflammatory changes are seen in the right lower quadrant. ABDOMINAL WALL: There is a supraumbilical hernia containing fat. This measures 2 x 3 x 2 cm.. LYMPH NODES: There are small retroperitoneal and small bowel mesentery lymph nodes. VASCULAR: Unremarkable. PELVIC VISCERA: Uterus and ovaries are unremarkable. There is trace ascites in the pelvis. OSSEOUS STRUCTURES: There is diffuse bony sclerosis compatible with patient's history of sickle cell disease. CT/CT abdomen pelvis wo con IMPRESSION: Small supraumbilical hernia containing fat. Enlarged high attenuation liver. This is probably related to increased iron stores from multiple transfusions related to patient's history of sickle cell disease. Differential would include iron deposition disease such as hemachromatosis and Kamlesh's disease. Small densely calcified spleen. Question mild diffuse bladder wall thickening.
[2020-03-28] MEDS: oxyCODONE HCl Immed Release 5 MG TABLET 7.5 MG PO ×2 (02:13→09:09)
[2020-03-28] MEDS: HYDROmorphone HCl 0.5 MG/0.5 ML SYRINGE 0.25 MG IVPUSH ×2 (02:52→09:11)
[2020-03-28] MEDS: hydrOXYzine HCL 25 MG TABLET PO ×2 (02:53→09:10)
[2020-03-28] MEDS: Lactated Ringers 1,000 ML 100 ML IVCONT (05:39)
[2020-03-28] MEDS: Omeprazole 20 MG CAPSULE.DR PO (05:39)
[2020-03-28] MEDS: Albuterol Sulfate (0.083%) 2.5 MG/3 ML VIAL.NEB INHALE (06:22)
[2020-03-28 08:41] LABS: Hemoglobin 7.1 g/dl (12.0-16.0); Mean Corpuscular Hemoglobin 33.8 pg (27.0-33.0); Mean Corpuscular Volume 96.7 fL (80-98); Mean Platelet Volume 13.6 fL (9.4-12.3); Platelet Count 112 X10*3/uL (160-400); Red Cell Distribution Width 19.3 % (11.0-16.0); White Blood Count 13.2 X10*3/uL (4.8-10.8)
[2020-03-28 08:42] LABS: NRBC Pct Auto 10.1 /100WBC (0.0-0.2)
[2020-03-28 08:59] LABS: Hematocrit 20.3 % (37-47)
[2020-03-28] MEDS: Hydroxyurea 500 MG CAPSULE PO (09:08)
[2020-03-28] MEDS: Sertraline HCL 50 MG TABLET PO (09:10)
[2020-03-28] MEDS: Multivitamin TABLET 1 TAB PO (09:10)
[2020-03-28] MEDS: 0.9 % Sodium Chloride Flush 3 ML SYRINGE IVFLUSH (09:11)
--- NOTE | 2020-03-28 10:15 | HO.PM.IMPN ---
Subjective Subjective Date of Service: 03/28/20 Interval History: Seen in f/u for sickle cell anemia with crisis, c/o diffuse pain, H/H is lower. Hct 20 after transfusion, she is complianing of abdominal pain that she says is been there for 1 week, no sob Review of Systems Gen: no fever Resp: no sob, no cough CV: no chest, no TONY, no leg edema GI: No n/v,+ abd pain Neuro: No confusion Physical Exam Vital Signs: Vital Signs: Last Vital Signs Temp 99.6 F 03/28/20 08:00 Pulse 87 03/28/20 08:00 Resp 16 03/28/20 08:00 BP 124/51 L 03/28/20 08:00 Pulse Ox 92 03/28/20 08:00 Body Mass Index 21.4 General: AO X 3, no acute distress Resp: CTA bilateral CVS: S1,S2,RRR GI: +BS, mild non-specific tenderness Skin: No rash Neuro: motor grossly intact Psych: appropriate affect Objective Data Current Medications Generic Name Dose Route Start Last Admin Trade Name Alexandrq PRN Reason Stop Dose Admin Albuterol Sulfate 2.5 mg 03/25/20 00:45 03/28/20 06:22 Albuterol Sulfate (0.083%) 2.5 Mg/3 Ml Vial.Neb INHALE 2.5 mg RQ6H [facility]ILLIP Administration Hydromorphone HCl 0.25 mg 03/27/20 12:14 03/28/20 09:11 Hydromorphone Hcl 0.5 Mg/0.5 Ml Syringe IVPUSH 0.25 mg Q4H PRN Administration Pain, Severe (Pain Scale 7-10) Hydroxyurea 500 mg 03/26/20 21:00 03/28/20 09:08 Hydroxyurea 500 Mg Capsule PO 500 mg BID [facility]ILLIP Administration Hydroxyzine HCl 25 mg 03/25/20 00:45 03/28/20 09:10 Hydroxyzine Hcl 25 Mg Tablet PO 25 mg QID PRN Administration anxiety Lactated Ringer's 1,000 mls @ 100 mls/hr 03/25/20 12:30 03/28/20 05:39 Lr IVCONT 100 mls/hr .Q10H [facility] Administration Ceftriaxone Sodium 1 gm/ 50 mls @ 100 mls/hr 03/26/20 14:00 03/27/20 15:20 Sodium Chloride IV Infused Q24H [facility] Infusion Multivitamins/Vitamin C 1 tab 03/25/20 09:00 03/28/20 09:10 Multivitamin Tablet PO 1 tab DAILY [facility] Administration Omeprazole 20 mg 03/25/20 06:30 03/28/20 05:39 Omeprazole 20 Mg Capsule. PO 20 mg DAILY@0630 [facility] Administration Oxycodone HCl 7.5 mg 03/26/20 18:22 03/28/20 09:09 Oxycodone Hcl Immed Release 5 Mg Tablet PO 7.5 mg Q6H PRN Administration Pain, Severe (Pain Scale 7-10) Sertraline HCl 50 mg 03/25/20 09:00 03/28/20 09:10 Sertraline Hcl 50 Mg Tablet PO 50 mg DAILY [facility] Administration Sodium Chloride 3 ml 03/25/20 08:00 03/28/20 09:11 0.9 % Sodium Chloride Flush 3 Ml Syringe IVFLUSH 3 ml QSHIFT [facility] Administration Labs CBC & Chem 7: 03/28/20 08:06 03/25/20 10:33 Microbiology Microbiology Results: Microbiology 03/26/20 00:00 Blood - Venous Blood Culture - Final 03/26/20 00:00 Blood - Venous Blood Culture - Final Assessment and Plan (1) Sickle cell anemia: Status: Acute Assessment and Plan: 50 yo F with known Sickle Cell anemia who presents for pain crisis. 1. Sickle Cell anemia, pain crisis -Transfused 1 unit on 03/27, hct 20 which is within her baseline IVF and iv pain control -- transition her to PO oxycodone Oxygen 2. Hypoxia per patient, chronic but she does not use o2 at home monitor no symptoms at this time 3. Elevated LFTs--from liver iron overload from multiple transfusion chronic increased during this admission ultrasound negative for acute findings trend - refusing labs continue her chronic medications Abdominal pain--exam bening, CT without contrast to better assess, dilaudid for pain Full Code DVT pptx, mechanical due to low significant anemia / low platelets
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
--- NOTE | 2020-03-28 12:28 | P.DS_ITS ---
DS: Providers Provider Date of Service: 03/28/20 Date of admission: 03/25/20 00:47 Primary care physician: Unknown Physician DS: Diagnosis Discharge Diagnosis (1) Sickle cell anemia: Status: Acute DS: Medications Discharge Medications Home Medications: Home Medications Medication Instructions Recorded Confirmed albuterol sulfate 2.5 mg INHALATION Q6H 12/05/19 03/25/20 hydroxyzine pamoate 25 mg PO QID PRN 12/05/19 03/25/20 multivitamin [Daily-Lazara] 1 tab PO DAILY 12/05/19 03/25/20 omeprazole 20 mg PO DAILY 12/05/19 03/25/20 oxycodone-acetaminophen 2 tab PO Q4H 12/05/19 03/25/20 sertraline 50 mg PO DAILY 12/05/19 03/25/20 DS: Summary Hospital Course Hospital Course: Patient was admitted for sickle cell anemia with pain crisis and was been treated with pain medication, transfusions and oxygen, hydration. She complained of pain today and was to have further work up evakuiation with CT. Unfortunately, as she has done many time before and without warning she abruptly decide to leave against medical advise and did not wait for me to come talk to her. This has been her practice in the past. RN did tell her to return to ED with any other issues and to go see PC Time Spent with Patient Time attestation: Total time spent providing and/or coordinating discharge services: Discharge coordination time: Less than 30 minutes Physical Exam Vital Signs: Vital Signs: Last Vital Signs Temp 97.8 F 03/28/20 11:32 Pulse 86 03/28/20 11:32 Resp 16 03/28/20 11:32 BP 100/56 L 03/28/20 11:32 Pulse Ox 92 03/28/20 11:33 Body Mass Index 21.4 DS: Data Data Completed and Pending Completed studies during hospitalization [Text1]: Procedures Detoxification Services for Substance Abuse Treatment (12/05/19) Transfusion of Nonautologous Red Blood Cells into Peripheral Vein, Percutaneous Approach (03/06/20) Labs on day of discharge: Laboratory Tests 03/24/20 03/24/20 03/24/20 16:43 16:43 16:43 WBC 12.4 H RBC 2.12 L D Hgb 7.3 L D Hct 19.5 L* D MCV 92.0 MCH 34.4 H MCHC 37.4 H RDW 19.9 H Plt Count 157 L D MPV 12.3 Immature Gran % (Auto) 0.6 H Neut % (Auto) 70.0 Lymph % (Auto) 12.2 L [place] % (Auto) 15.0 H Eos % (Auto) 1.6 Baso % (Auto) 0.6 Lymph # (Auto) 1.5 [place] # (Auto) 1.9 H Eos # (Auto) 0.2 Baso # (Auto) 0.1 Abs Immat Gran (auto) 0.07 H Absolute Neuts (auto) 8.6 H Absolute Nucleated RBC 0.960 H Nucleated RBC % (auto) 7.8 H Neutrophils % (Manual) Band Neutrophils % Lymphocytes % (Manual) Monocytes % (Manual) Eosinophils % (Manual) Metamyelocytes % Abs Neuts (Manual) Lymphocytes # (Manual) Monocytes # (Manual) Eosinophils # (Manual) Metamyelocytes # Nucleated RBCs Toxic Vacuolation Platelet Estimate Large Platelets Plt Morphology Comment RBC Morphology Polychromasia Hypochromasia Microcytosis Macrocytosis Sickle Cells Target Cells Tear Drop Cells Ovalocytes Stomatocytes [place] Bodies Smear Tech's Comments VERIFIED Absolute Retic 0.421 H Percent Retic 18.1 H Immature Retic Fraction 16.9 H Retic Hgb Equivalent 28.7 L PT 13.8 H INR 1.2 H D-Dimer TNP Sodium 136 Potassium 4.8 Chloride 103 Carbon Dioxide 21 L Anion Gap 17 BUN 18 H D Creatinine 0.85 Estim Creat Clear Calc 69.1 Estimated GFR > 60 Random Glucose 117 H Calcium 8.9 Total Bilirubin 5.3 H Direct Bilirubin 2.1 H AST 362 H ALT 134 H Alkaline Phosphatase 179 H Troponin I High Sens Total Protein 8.0 Albumin 4.2 Lipase 55 COVID-19 ([facility]) COVID-19 Clin Com Blood Type Antibody Screen Crossmatch (AHG) 03/24/20 03/24/20 03/24/20 16:43 16:44 18:30 WBC RBC Hgb Hct MCV MCH MCHC RDW Plt Count MPV Immature Gran % (Auto) Neut % (Auto) Lymph % (Auto) [place] % (Auto) Eos % (Auto) Baso % (Auto) Lymph # (Auto) [place] # (Auto) Eos # (Auto) Baso # (Auto) Abs Immat Gran (auto) Absolute Neuts (auto) Absolute Nucleated RBC Nucleated RBC % (auto) Neutrophils % (Manual) Band Neutrophils % Lymphocytes % (Manual) Monocytes % (Manual) Eosinophils % (Manual) Metamyelocytes % Abs Neuts (Manual) Lymphocytes # (Manual) Monocytes # (Manual) Eosinophils # (Manual) Metamyelocytes # Nucleated RBCs Toxic Vacuolation Platelet Estimate Large Platelets Plt Morphology Comment RBC Morphology Polychromasia Hypochromasia Microcytosis Macrocytosis Sickle Cells Target Cells Tear Drop Cells Ovalocytes Stomatocytes [place] Bodies Smear Tech's Comments Absolute Retic Percent Retic Immature Retic Fraction Retic Hgb Equivalent PT INR D-Dimer Sodium Potassium Chloride Carbon Dioxide Anion Gap BUN Creatinine Estim Creat Clear Calc Estimated GFR Random Glucose Calcium Total Bilirubin Direct Bilirubin AST ALT Alkaline Phosphatase Troponin I High Sens < 3.5 Total Protein Albumin Lipase COVID-19 ([facility]) Negative COVID-19 Clin Com See Note Blood Type O Positive Antibody Screen NEGATIVE Crossmatch (AHG) See Detail 03/25/20 03/25/20 03/25/20 04:35 10:33 10:33 WBC 14.1 H 14.9 H RBC 2.38 L 2.25 L Hgb 7.9 L 7.8 L Hct 21.8 L 20.8 L* MCV 91.6 92.4 MCH 33.2 H 34.7 H MCHC 36.2 H 37.5 H RDW 19.7 H 19.9 H Plt Count 113 L D 116 L MPV 11.9 11.5 Immature Gran % (Auto) Cancelled Neut % (Auto) Cancelled Lymph % (Auto) Cancelled [place] % (Auto) Cancelled Eos % (Auto) Cancelled Baso % (Auto) Cancelled Lymph # (Auto) Cancelled [place] # (Auto) Cancelled Eos # (Auto) Cancelled Baso # (Auto) Cancelled Abs Immat Gran (auto) Cancelled Absolute Neuts (auto) Cancelled Absolute Nucleated RBC 1.170 H 1.090 H Nucleated RBC % (auto) 8.3 H 7.3 H Neutrophils % (Manual) 70 Band Neutrophils % 10 H Lymphocytes % (Manual) 13 L Monocytes % (Manual) 5 Eosinophils % (Manual) Metamyelocytes % 2 Abs Neuts (Manual) 11.9 H Lymphocytes # (Manual) 1.9 Monocytes # (Manual) 0.7 Eosinophils # (Manual) Metamyelocytes # 0.3 Nucleated RBCs 12 H Toxic Vacuolation Platelet Estimate SLIGHTLY DECREASED Large Platelets Plt Morphology Comment NORMAL RBC Morphology NOTED Polychromasia 1+ Hypochromasia 1+ Microcytosis Macrocytosis 1+ Sickle Cells 3+ Target Cells 1+ Tear Drop Cells Ovalocytes 1+ Stomatocytes 1+ [place] Bodies Smear Tech's Comments Absolute Retic Percent Retic Immature Retic Fraction Retic Hgb Equivalent PT INR D-Dimer Sodium 138 Potassium 4.7 Chloride 108 Carbon Dioxide 21 L Anion Gap 14 BUN 13 Creatinine 0.71 Estim Creat Clear Calc 82.7 Estimated GFR > 60 Random Glucose 122 H Calcium 8.5 Total Bilirubin 6.9 H Direct Bilirubin 1.9 H AST 265 H ALT 104 H Alkaline Phosphatase 161 H Troponin I High Sens Total Protein 7.5 Albumin 3.8 Lipase COVID-19 ([facility]) COVID-19 Clin Com Blood Type Antibody Screen Crossmatch (AHG) 03/26/20 03/27/20 03/28/20 23:12 00:37 08:06 WBC 12.6 H 12.0 H 13.2 H RBC 1.95 L 2.22 L 2.10 L Hgb 6.7 L* 7.5 L 7.1 L Hct 18.5 L* 20.9 L* 20.3 L* MCV 94.9 94.1 96.7 MCH 34.4 H 33.8 H 33.8 H MCHC 36.2 H 35.9 H 35.0 RDW 22.1 H 22.4 H 19.3 H Plt Count 107 L TNP 112 L MPV 13.1 H Not Reportable 13.6 H Immature Gran % (Auto) Cancelled Neut % (Auto) Cancelled Lymph % (Auto) Cancelled [place] % (Auto) Cancelled Eos % (Auto) Cancelled Baso % (Auto) Cancelled Lymph # (Auto) Cancelled [place] # (Auto) Cancelled Eos # (Auto) Cancelled Baso # (Auto) Cancelled Abs Immat Gran (auto) Cancelled Absolute Neuts (auto) Cancelled Absolute Nucleated RBC 0.980 H 1.110 H 1.330 H Nucleated RBC % (auto) 7.8 H 9.3 H 10.1 H Neutrophils % (Manual) 57 Band Neutrophils % 3 Lymphocytes % (Manual) 24 Monocytes % (Manual) 11 Eosinophils % (Manual) 5 H Metamyelocytes % Abs Neuts (Manual) 7.2 Lymphocytes # (Manual) 2.9 Monocytes # (Manual) 1.3 H Eosinophils # (Manual) 0.6 Metamyelocytes # Nucleated RBCs 24 H Toxic Vacuolation PRESENT Platelet Estimate DECREASED Large Platelets PRESENT Plt Morphology Comment NOTE RBC Morphology NOTED Polychromasia 3+ Hypochromasia 1+ Microcytosis 1+ Macrocytosis 2+ Sickle Cells 3+ Target Cells 1+ Tear Drop Cells 1+ Ovalocytes Stomatocytes [place] Bodies PRESENT Smear Tech's Comments Absolute Retic Percent Retic Immature Retic Fraction Retic Hgb Equivalent PT INR D-Dimer Sodium Potassium Chloride Carbon Dioxide Anion Gap BUN Creatinine Estim Creat Clear Calc Estimated GFR Random Glucose Calcium Total Bilirubin Direct Bilirubin AST ALT Alkaline Phosphatase Troponin I High Sens Total Protein Albumin Lipase COVID-19 ([facility]) COVID-19 Clin Com Blood Type Antibody Screen Crossmatch (AHG) Discharge Plan Discharge Anticipated Discharge Date/Time: 03/28/20 12:28 Patient Disposition: Left Against Medical Advice Referrals: Ishmael Recio MD [Resident] - 1 Week (Please call and schedule a follow up appointment within 1 week.) Discharge Medications: No Action oxycodone-acetaminophen 7.5-325 mg tablet 2 tab PO Q4H RF: 0 multivitamin [Daily-Lazara] Tablet 1 tab PO DAILY RF: 0 albuterol sulfate 2.5 mg /3 mL (0.083 %) solution for nebulization 2.5 mg inhalation Q6H RF: 0 sertraline 25 mg tablet 50 mg PO DAILY RF: 0 omeprazole 20 mg capsule,delayed release(DR/EC) 20 mg PO DAILY RF: 0 hydroxyzine pamoate 25 mg capsule 25 mg PO QID PRN (Reason: anxiety) RF: 0 Discharge Orders: Discharge Order (Routine); Ordered 03/28/20 Ordered By: Kris [facility] Care Plan Goals: Prevent rehospitalization and control of Sickle cell Health Concerns: Sickle cell with frequent crisis Plan of Treatment: Left AMA and would not even wait for me to come talk to her
--- NOTE | 2020-03-28 12:39 | MHC.CM.PN ---
nurse primary care provider note electronic medical record reviewed along with meeting patient , case discussed on multiple disciplinary rounds , informed by nursing staff that patient has signed out of the hospital against medical advice
== END 2020-03-28 13:30 | disposition left against medical advice (07) | DRG 812 ==
LOC: HO.ED 22:57 → HO.EDOVER 03-25 01:16 → HO.S3 03-26 18:31
PROVIDERS: Family Medicine; Hospitalist; Admitting Provider Internal Medicine; Emergency Provider Internal Medicine; Visit Provider Internal Medicine
DX: D57.00 Hb-SS disease with crisis, unspecified (principal); F43.10 Post-traumatic stress disorder, unspecified; R09.02 Hypoxemia; Z20.822 Contact with and (suspected) exposure to COVID-19; Z79.891 Long term (current) use of opiate analgesic; Z79.899 Other long term (current) drug therapy
CPT/HCPCS: 36415; 36430; 71045; 74176; 76700; 80048; 80076; 83690; 84484; 85007; 85025; 85027; 85045; 85379; 85610; 86850; 86900; 86902; 86920; 86921; 86922; 87635; 93005; 94640; 96361; 96374; 96375; 96376; 99284; 99285; J0696; J1170; J1200; J2405; P9016

== ENCOUNTER 2020-05-10 01:23 | Emergency (ER) | payer OTHER, SELFPAY ==
--- NOTE | ~2020-05-10 | XR_ITS ---
EXAMINATION: XR CHEST CLINICAL INFORMATION: Chest pain. Cough. COMPARISON: 03/24/2020 TECHNIQUE: Frontal view of the chest was obtained. FINDINGS: Right IJ Port-A-Cath terminates in the SVC, unchanged. Cardiac leads overlie the chest. Lungs are relatively clear without focal consolidation, pneumothorax, or pleural effusion. Cardiac and mediastinal contours are normal. Diffuse osseous sclerosis of the visualized skeleton is consistent with known sickle cell disease. Calcified spleen is noted. XR/XR chest 1V IMPRESSION: No acute pulmonary findings.
[2020-05-10 01:34] VITALS: BP 110/70; BP 112/61; PULSE 88; PULSE 96; RESP 20; TEMP 36.9; O2SAT 90; O2SAT 92; BMI 22.1
--- NOTE | 2020-05-10 01:55 | ECG_ITS ---
Test Reason : CHEST DIS Blood Pressure : / mmHG Vent. Rate : 090 BPM Atrial Rate : 090 BPM P-R Int : 136 ms QRS Dur : 088 ms QT Int : 376 ms P-R-T Axes : 064 032 042 degrees QTc Int : 459 ms Normal sinus rhythm Possible Left atrial enlargement Borderline ECG When compared with ECG of 24-MAR-2020 18:45, Nonspecific T wave abnormality now evident in Anterior leads Referred By: Generic ED Physician Electronically Signed By:LIANNA NELSON MD
--- NOTE | 2020-05-10 01:58 | PC.NURSE ---
radiologic technician at bedside to obtain EKG and labs.
--- NOTE | 2020-05-10 02:15 | PC.NURSE ---
Pt presents to the ED with extremely poor venous access. Pt has a port to her right chest which does not work according to pt. or scrub tech at bedside attempting to obtain labs x 3 with no success. Pt crying in bed, states I just want to be left alone!! Stop poking and proding me!!! This RN explaining to pt that since she is c/o CP, a cardiac workup is necessary to r/o anything significant. Pt very unhappy but agreeable to EKG. EKG obtained. Pt resting in bed, crying, states she wants to be left alone. Awaiting MD christianson.
--- NOTE | 2020-05-10 02:28 | PC.NURSE ---
CXR at bedside.
[2020-05-10 03:11] LABS: Basophils Absolute Auto 0.1 X10*3/uL (0.0-0.2); Basophils Percent Auto 0.8 % (0-2); Eosinophils Absolute Auto 0.4 X10*3/uL (0.0-0.4); Hematocrit 17.4 % (37-47); Imm Gran Abs Auto 0.17 X10*3/uL (0.00-0.03); Imm Gran Pct Auto 1.4 % (0.0-0.4); Immature Retic Fraction 57.3 % (3.0-15.9); Lymphocytes Absolute Auto 3.1 X10*3/uL (1.2-4.9); Mean Corpuscular HGB Conc 36.2 g/dl (31.0-35.0); Mean Corpuscular Hemoglobin 35.4 pg (27.0-33.0); Mean Corpuscular Volume 97.8 fL (80-98); Mean Platelet Volume 12.6 fL (9.4-12.3); Monocytes Absolute Auto 1.8 X10*3/uL (0.1-1.2); Monocytes Percent Auto 14.6 % (2-11); NRBC Pct Auto 8.1 /100WBC (0.0-0.2); Neutrophils Absolute Auto 6.7 X10*3/uL (2.0-8.3); Neutrophils Percent Auto 55.2 % (45-73); Platelet Count 103 X10*3/uL (160-400); Red Blood Count 1.78 X10*6/uL (4.20-5.50); Red Cell Distribution Width 21.5 % (11.0-16.0); Retic HGB Equivalent 36.7 pg (30.0-35.0); Reticulocyte Percent 7.7 % (0.5-1.8); Reticulocytes Absolute 0.136 X10*6/uL (0.026-0.095); SCAN SMEAR FLAG 1; White Blood Count 12.2 X10*3/uL (4.8-10.8)
[2020-05-10] MEDS: ondansetron HCL 4 MG/2 ML VIAL IVPUSH (03:13)
[2020-05-10] MEDS: HYDROmorphone HCl 2 MG/ML VIAL IVPUSH (03:13)
[2020-05-10] MEDS: diphenhydrAMINE HCL 50 MG/ML VIAL 25 MG IVPUSH ×3 (03:13→05:24)
[2020-05-10 03:15] LABS: Hemoglobin 6.3 g/dl (12.0-16.0); MANUAL DIFF FLAG SCAN
[2020-05-10 03:17] VITALS: BP 96/49; PULSE 89; RESP 16
--- NOTE | 2020-05-10 03:20 | PC.NURSE ---
EJ established by MD Guzman, labs obtained from [facility]. Pt medicated per APR. Pt requesting food/drink, provided with 2 sandwiches and juice, Pt resting in bed, playing on phone. Call hernández within reach, continue to monitor.
--- NOTE | 2020-05-10 03:24 | ED_ITS ---
HPI - Chest Pain General Chief Complaint: Chest Pain Stated Complaint: ? Sickle cell crisis Time Seen by Provider: 05/10/20 02:57 History of Present Illness HPI narrative: Patient is 50 years old presents today with having right-sided chest pain. Patient has a history of sickle cell disease. Claims this pain is very similar. No cough and no congestion or upper respiratory symptoms. No diaphoresis. No fever no chills. Extreme pain localized. Related Data Home Medications Medication Instructions Recorded Confirmed albuterol sulfate 2.5 mg INHALATION Q6H 12/05/19 03/25/20 hydroxyzine pamoate 25 mg PO QID PRN 12/05/19 03/25/20 multivitamin [Daily-Lazara] 1 tab PO DAILY 12/05/19 03/25/20 omeprazole 20 mg PO DAILY 12/05/19 03/25/20 oxycodone-acetaminophen 2 tab PO Q4H 12/05/19 03/25/20 sertraline 50 mg PO DAILY 12/05/19 03/25/20 Allergies Allergy/AdvReac Type Severity Reaction Status Date / Time prochlorperazine Allergy Severe ANAPHYLAXIS Verified 05/10/20 01:39 [From COMPAZINE] Review of Systems Review of Systems: Constitutional: No Weight loss, No Fever, No Chills, No Night Sweats, No Fatigue, No Malaise ENT/Mouth: No Hearing loss, No Ear Pain, No Nasal Congestion, No Sinus Pain, No Hoarseness, No sore throat, No Rhinorrhea, No Swallowing Difficulty Eyes: No Eye Pain, No Swelling, No Redness, No Foreign Body, No Discharge, No Vision Changes Cardiovascular: Positive Chest Pain, No SOB, No Dyspnea on Exertion, No Orthopnea, No Edema, No Palpitations Respiratory: No Cough, No Sputum, No Wheezing, No Smoke Exposure, No Dyspnea Gastrointestinal: No Nausea, No Vomiting, No Diarrhea, No Constipation, No abdominal Pain, No Hematochezia, No Melena Genitourinary: no irregular bleeding, No Dysuria, No Urinary Frequency, No Hematuria, No Urinary Incontinence, No Urgency, No Flank Pain, No Urinary Flow Changes, No Hesitancy Musculoskeletal: No joint pain, No Myalgias, No Joint Swelling Skin: No Skin Lesions, No rash Neuro: No Weakness, No Numbness, No Paresthesias, No Loss of Consciousness, No Dizziness, No Headache Psych: No Anxiety/Panic, No Depression, No SI/HI/AH/VH, No Social Issues, Heme/Lymph: No Bruising, No Bleeding,No Lymphadenopathy Endocrine: No Polyuria, No Polydipsia, No Temperature Intolerance [facility] Past Medical History Medical History Bipolar 1 disorder Cocaine abuse GERD (gastroesophageal reflux disease) PTSD (post-traumatic stress disorder) Sickle cell anemia Surgical History Hx of cholecystectomy Social History Social History Household Members: None Housing: Apartment Alcohol intake: unknown Smoking Status: Current every day smoker Tobacco Type: Cigarette Second Hand Smoke Exposure: Yes Substance Use Type: Crack/Cocaine and Marijuana Advance Directives: No service: No Current occupational status: disabled Physical Exam Vital Signs: Vital Signs: Last Vital Signs Temp 98.5 F 05/10/20 01:34 Pulse 100 05/10/20 04:24 Resp 20 05/10/20 04:24 BP 97/43 L 05/10/20 04:24 Pulse Ox 92 05/10/20 01:34 Body Mass Index 22.1 Appearance: Alert. Oriented X3. No acute distress. Eyes: Pupils equal, round and reactive to light. ENT: Pharynx normal. Neck: Normal inspection. Neck supple. No lymph nodes noted. No crepitus CVS: Normal heart rate and rhythm. Pulses normal. Normal S1 and S2 Respiratory: No respiratory distress. Breath sounds normal. No Wheezing. No rales Abdomen: Soft and nontender. No rigidity. No distention. good BS x4 Skin: Skin warm and dry. Normal skin color. Normal skin turgor. Extremities: No lower extremity edema. Neurovascular intact to all extremities. No Lacerations. No Rash Neuro: Oriented X 3. No motor deficit. No sensory deficit. Moving all extermities. No slurred speech MDM - Chest Pain MDM Narrative Medical decision making narrative: Patient's chest x-ray was grossly negative for any acute evidence of pneumonia. No pneumothorax. Patient's hemoglobin is 6.3. Has a long history of low hemoglobin. Patient's retic count is over 30%. Given pain medication with good results. Will discharge patient home. Patient is complaining of extreme puritic condition with Dilaudid. Given additional Benadryl. Currently in stable condition with discharge home. Medical Records Data Attestation: I reviewed the patient's medical records. Lab Data Attestation: I reviewed the patient's lab results. Result diagrams: 05/10/20 03:06 05/10/20 03:06 Labs: Lab Results 05/10/20 05/10/20 05/10/20 Range/Units 03:06 03:06 03:06 WBC 12.2 H (4.8-10.8) X10*3/uL RBC 1.78 L (4.20-5.50) X10*6/uL Hgb 6.3 L* (12.0-16.0) g/dl Hct 17.4 L* (37-47) % MCV 97.8 (80-98) fL MCH 35.4 H (27.0-33.0) pg MCHC 36.2 H (31.0-35.0) g/dl RDW 21.5 H (11.0-16.0) % Plt Count 103 L (160-400) X10*3/uL MPV 12.6 H (9.4-12.3) fL Immature Gran % (Auto) 1.4 H (0.0-0.4) % Neut % (Auto) 55.2 (45-73) % Lymph % (Auto) 25.0 (20-40) % [place] % (Auto) 14.6 H (2-11) % Eos % (Auto) 3.0 (0-4) % Baso % (Auto) 0.8 (0-2) % Lymph # (Auto) 3.1 (1.2-4.9) X10*3/uL [place] # (Auto) 1.8 H (0.1-1.2) X10*3/uL Eos # (Auto) 0.4 (0.0-0.4) X10*3/uL Baso # (Auto) 0.1 (0.0-0.2) X10*3/uL Abs Immat Gran (auto) 0.17 H (0.00-0.03) X10*3/uL Absolute Neuts (auto) 6.7 (2.0-8.3) X10*3/uL Absolute Nucleated RBC 0.990 H (0.0-0.012) X10*3/uL Nucleated RBC % (auto) 8.1 H (0.0-0.2) /100WBC Smear Tech's Comments VERIFIED Absolute Retic (0.026-0.095) X10*6/uL Percent Retic (0.5-1.8) % Immature Retic Fraction (3.0-15.9) % Retic Hgb Equivalent (30.0-35.0) pg Hold Blue Top SEE NOTE Sodium 140 (135-145) mmol/L Potassium 3.6 D (3.3-5.1) mmol/L Chloride 111 H (96-108) mmol/L Carbon Dioxide 23 (22-29) mmol/L Anion Gap 10 L (12-20) BUN 12 (9-16) mg/dL Creatinine 0.73 (0.5-1.4) mg/dL Estim Creat Clear Calc 77.1 Estimated GFR > 60 Random Glucose 90 (60-115) mg/dL Calcium 8.1 L (8.4-10.2) mg/dL Troponin I High Sens (<3.5-17.0) ng/L 05/10/20 05/10/20 Range/Units 03:06 03:06 WBC (4.8-10.8) X10*3/uL RBC (4.20-5.50) X10*6/uL Hgb (12.0-16.0) g/dl Hct (37-47) % MCV (80-98) fL MCH (27.0-33.0) pg MCHC (31.0-35.0) g/dl RDW (11.0-16.0) % Plt Count (160-400) X10*3/uL MPV (9.4-12.3) fL Immature Gran % (Auto) (0.0-0.4) % Neut % (Auto) (45-73) % Lymph % (Auto) (20-40) % [place] % (Auto) (2-11) % Eos % (Auto) (0-4) % Baso % (Auto) (0-2) % Lymph # (Auto) (1.2-4.9) X10*3/uL [place] # (Auto) (0.1-1.2) X10*3/uL Eos # (Auto) (0.0-0.4) X10*3/uL Baso # (Auto) (0.0-0.2) X10*3/uL Abs Immat Gran (auto) (0.00-0.03) X10*3/uL Absolute Neuts (auto) (2.0-8.3) X10*3/uL Absolute Nucleated RBC (0.0-0.012) X10*3/uL Nucleated RBC % (auto) (0.0-0.2) /100WBC Smear Tech's Comments Absolute Retic 0.136 H (0.026-0.095) X10*6/uL Percent Retic 7.7 H (0.5-1.8) % Immature Retic Fraction 57.3 H (3.0-15.9) % Retic Hgb Equivalent 36.7 H (30.0-35.0) pg Hold Blue Top Sodium (135-145) mmol/L Potassium (3.3-5.1) mmol/L Chloride (96-108) mmol/L Carbon Dioxide (22-29) mmol/L Anion Gap (12-20) BUN (9-16) mg/dL Creatinine (0.5-1.4) mg/dL Estim Creat Clear Calc Estimated GFR Random Glucose (60-115) mg/dL Calcium (8.4-10.2) mg/dL Troponin I High Sens < 3.5 (<3.5-17.0) ng/L Discharge Plan Discharge Clinical Impression: Sickle cell anemia with crisis Patient Disposition: Home, Self-Care Instructions: Sickle Cell Crisis (ED) Prescriptions: No Action oxycodone-acetaminophen 7.5-325 mg tablet 2 tab PO Q4H RF: 0 multivitamin [Daily-Lazara] Tablet 1 tab PO DAILY RF: 0 albuterol sulfate 2.5 mg /3 mL (0.083 %) solution for nebulization 2.5 mg inhalation Q6H RF: 0 sertraline 25 mg tablet 50 mg PO DAILY RF: 0 omeprazole 20 mg capsule,delayed release(DR/EC) 20 mg PO DAILY RF: 0 hydroxyzine pamoate 25 mg capsule 25 mg PO QID PRN (Reason: anxiety) RF: 0 Referrals: Physician,Unknown [Primary Care Provider] - 2 days
[2020-05-10 03:32] LABS: Anion Gap 10 (12-20); Blood Urea Nitrogen 12 mg/dL (9-16); Calcium 8.1 mg/dL (8.4-10.2); Carbon Dioxide 23 mmol/L (22-29); Chloride 111 mmol/L (96-108); Creatinine Clr Calc Pharmacy 77.1; Estimated Glomerular Filt Rate > 60; Glucose Random 90 mg/dL (60-115); Potassium 3.6 mmol/L (3.3-5.1); Sodium 140 mmol/L (135-145)
[2020-05-10 03:40] LABS: Troponin-I High Sensitivity < 3.5 ng/L (<3.5-17.0)
[2020-05-10 03:45] LABS: SLIDE REVIEW VERIFIED
[2020-05-10 04:24] VITALS: BP 97/43; PULSE 100; RESP 20
--- NOTE | 2020-05-10 04:27 | PC.NURSE ---
Pt requesting more Benadryl due to severe itching from Dilaudid. Pt unable to sit still, pulling EKG wires and BP cuff off. Pt anxious, restless, scratch everett noted to entire body. Pt medicated with Benadryl per APR. VSS at this time. Continue to monitor.
[2020-05-10] MEDS: HYDROmorphone HCl 1 MG/ML SYRINGE IVPUSH (05:24)
[2020-05-10 05:26] VITALS: BP 101/51; PULSE 89; RESP 20
--- NOTE | 2020-05-10 05:31 | PC.NURSE ---
Pt medicated per APR. EJ removed. Pt provided with DC paperwork. Pt refusing to allow this RN to call pts brother for a ride, pt states I'll call him from my phone while I wait in the waiting room!! VSS at this time.
== END 2020-05-10 05:43 | disposition home or self-care (01) ==
PROVIDERS: Emergency Provider Emergency Medicine Emergency Medical Services
DX: D57.00 Hb-SS disease with crisis, unspecified (principal); R07.9 Chest pain, unspecified; L29.9 Pruritus, unspecified; T40.2X5A Adverse effect of other opioids, initial encounter; Y92.238 Other place in hospital as the place of occurrence of the external cause; K21.9 Gastro-esophageal reflux disease without esophagitis; F31.9 Bipolar disorder, unspecified; F14.10 Cocaine abuse, uncomplicated; F43.10 Post-traumatic stress disorder, unspecified; F17.210 Nicotine dependence, cigarettes, uncomplicated; Z90.49 Acquired absence of other specified parts of digestive tract; Z79.899 Other long term (current) drug therapy
CPT/HCPCS: 36410; 36415; 71045; 80048; 84484; 85025; 85045; 93005; 96374; 96375; 96376; 99284; J1170; J1200; J2405

== ENCOUNTER 2020-06-13 21:56 | Inpatient (IN) | payer MEDICARE, SELFPAY ==
--- NOTE | ~2020-06-13 | XR_ITS ---
EXAMINATION: XR CHEST CLINICAL INFORMATION: Chest pain. Covid positive. COMPARISON: 05/10/2020 TECHNIQUE: Frontal view of the chest was obtained. FINDINGS: Right chest wall CT compatible port terminates over the mid SVC. The lungs are well expanded. Subtle patchy bilateral opacities are noted, increased from prior. No pleural effusion or pneumothorax. The cardiomediastinal silhouette is within normal limits. XR/XR chest 1V IMPRESSION: Subtle patchy bilateral opacities. This could be associated with infectious process.
--- NOTE | ~2020-06-13 | CT_ITS ---
EXAMINATION: CT ANGIOGRAM OF THE CHEST WITH AND WITHOUT CONTRAST (CT PULMONARY ANGIOGRAM FOR PE) CLINICAL INFORMATION: Reason for Exam Sickle cell, COVID-19 positive, chest pain, r/0 PE, infarct COMPARISON: Chest radiograph from today. TECHNIQUE: Prior to contrast administration, noncontrast localization images were obtained. Subsequently, multidetector volumetric imaging was performed from the thoracic inlet to below the diaphragms following the administration of 65 mL Omnipaque 350 intravenous contrast. No contrast reaction reported Sagittal, coronal, and MIP oblique sagittal reformatted images were obtained on the CT workstation, uploaded to PACS, and reviewed. This CT examination was performed using dose optimization techniques as appropriate, variously including the following: *Automated exposure control *Adjustment of mA and/or kV according to patient size (this includes techniques or standardized protocols for targeted exams where dose is matched to indication/reason for exam; i.e. extremities or head) *Use of iterative reconstruction technique Total exam dose-length product 170 mGy-cm FINDINGS: QUALITY OF STUDY/CONTRAST BOLUS: Satisfactory. PULMONARY ARTERIES: No central or segmental pulmonary emboli. The main pulmonary artery is prominent, measuring 3.6 cm transverse. THORACIC AORTA: No aneurysm or dissection. LUNG: The central airways are patent. There are cystic changes seen at both lung bases posteriorly. This could represent an early honeycombing. Associated groundglass opacity at both lung bases with mild reticular appearance. No separate consolidation. PLEURA: No pleural effusion or pneumothorax. MEDIASTINUM: Prominent heart size. No pericardial effusion. No hilar or mediastinal lymphadenopathy. No evidence of septal bowing or right heart strain. CHEST WALL/AXILLA: No axillary or internal mammary lymphadenopathy. OSSEOUS STRUCTURES: No acute or suspicious osseous abnormality. UPPER ABDOMEN: Unremarkable. No reflux of contrast into the hepatic veins to suggest elevated right heart pressures. CT/CT angio chest PE protocol IMPRESSION: 1. No pulmonary embolism. 2. Cystic changes are seen at both lung bases which may represent early honeycombing as can be seen with usual interstitial pneumonia. There is associated groundglass opacity with mild septal thickening. There could also be a component of pulmonary edema as the heart is enlarged. 3. Prominent main pulmonary artery suggestive of pulmonary artery hypertension. VTE: negative
[2020-06-13 22:18] VITALS: BP 109/46; PULSE 92; RESP 15; TEMP 37.6; O2SAT 95; BMI 22.4
--- NOTE | 2020-06-13 22:46 | PC.NURSE ---
Provider at bedside. Pt upset when offered non-narcotic managment for pain. per patient I can just go home and take this medication myself. the only thing that works for me is Dilaudid and benadryl. Provider is offering education regarding medical management.
--- NOTE | 2020-06-13 22:53 | ECG_ITS ---
Test Reason : WEAKNESS Blood Pressure : / mmHG Vent. Rate : 088 BPM Atrial Rate : 088 BPM P-R Int : 138 ms QRS Dur : 090 ms QT Int : 358 ms P-R-T Axes : 072 031 043 degrees QTc Int : 433 ms Normal sinus rhythm Moderate voltage criteria for LVH, may be normal variant Nonspecific T wave abnormality Abnormal ECG When compared with ECG of 10-MAY-2020 02:13, Nonspecific T wave abnormality now evident in Lateral leads Referred By: Ron Galvan Electronically Signed By:Sujit Goddard
--- NOTE | 2020-06-13 22:55 | ED.GENADULT ---
HPI - General Adult General Chief complaint: General Medical Stated complaint: Sickle Cell Time Seen by Provider: 06/13/20 22:35 Source: patient Mode of arrival: ambulatory Limitations: no limitations History of Present Illness HPI narrative: 50-year-old female with history of sickle cell disease who presents emergency department for evaluation of headache, lower extremity pain, chest pain, and fever x3 days. The patient states that she has a constant, throbbing headache which is located throughout her head. She states that the headache is 10/10 at its worst. The headache came on gradually. She is also complaining of chest pain. She points to her left chest when asked to localize the pain. She states the pain is a constant pressure pain which does not change with breathing or movement. Patient states that she has subjective fevers over the last 3 days but did not take her temperature. She denied nausea or vomiting. She is also complaining of which she states she has gotten before with her sickle cell disease. The pain is a constant, throbbing sensation which is 10/10. Related Data Home Medications Medication Instructions Recorded Confirmed albuterol sulfate 2.5 mg INHALATION Q6H 12/05/19 03/25/20 hydroxyzine pamoate 25 mg PO QID PRN 12/05/19 03/25/20 multivitamin [Daily-Lazara] 1 tab PO DAILY 12/05/19 03/25/20 omeprazole 20 mg PO DAILY 12/05/19 03/25/20 oxycodone-acetaminophen 2 tab PO Q4H 12/05/19 03/25/20 sertraline 50 mg PO DAILY 12/05/19 03/25/20 Allergies Allergy/AdvReac Type Severity Reaction Status Date / Time prochlorperazine Allergy Severe ANAPHYLAXIS Verified 05/10/20 01:39 [From COMPAZINE] Review of Systems Review of Systems: Yes Unobtainable due to mental status PMFSH Past Medical History Medical History Bipolar 1 disorder Cocaine abuse GERD (gastroesophageal reflux disease) PTSD (post-traumatic stress disorder) Sickle cell anemia Surgical History Hx of cholecystectomy Social History Social History Household Members: None Housing: Apartment Alcohol intake: current Alcohol intake frequency: 3 or more drinks per day Alcohol type: beer Smoking Status: Current every day smoker Tobacco Type: Cigarette Second Hand Smoke Exposure: Yes Use of substances other than those prescribed or required for medical reasons: Yes 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, Crack/Cocaine, IV Drugs and Methamphetamine Any prior treatment program specific to substance use: No Advance Directives: No Advance Directives Information Provided: Yes service: No Current occupational status: disabled Physical Exam Vital Signs: Vital Signs: Last Vital Signs Temp 98.6 F 06/14/20 03:12 Pulse 89 06/14/20 05:35 Resp 18 06/14/20 05:35 BP 96/49 L 06/14/20 05:35 Pulse Ox 97 06/14/20 05:35 Body Mass Index 22.4 Const: General: cooperative Nutritional Appearance: thin Orientation/consciousness: oriented to person and oriented to place Limitations: no limitations HENMT: Head: Yes normal to inspection, Yes normocephalic and Yes atraumatic Ears: external ears normal General nose exam: Normal external nose present Face and sinus: Yes normal facial exam Mouth: Normal oral and palatal mucosa present Throat: Yes posterior oropharynx normal Eyes: Periorbital: periorbital findings normal Eyelids: Yes eyelids normal Conjunctivae: conjunctivae normal Sclerae: sclerae normal Corneas: corneas normal Pupils: Equal, round and reactive pupils present Direct Ophthalmoscopy: normal light reflex Neck: Neck: Yes full ROM, Yes no lymphadenopathy, Yes no meningeal signs, Yes trachea midline and Yes supple Chest: Chest palpation & inspection: normal inspection of the chest and normal palpation of entire chest wall Resp: Effort & Inspection: normal respiratory effort and able to speak in complete sentences Auscultation: clear to auscultation bilaterally Cardio: Rate: regular rate Rhythm: regular rhythm Heart sounds: S1 normal heart sound present, S2 normal heart sound present and no murmurs GI: Inspection: Yes normal to inspection Palpation (GI): Soft to palpation, nontender, no guarding, not rigid and No hepatosplenomegaly present : General: Yes no CVA tenderness Back/Spine/Pelvis: Back: no CVA tenderness Cervical Spine: normal cervical lordosis Thoracic/Lumbar Spine: thoracic and lumbar spine normal to inspection Skin: Lesions: no lesions Rashes: no rashes Wounds: no wounds Neuro: General: oriented to person, oriented to place and no meningeal signs Cranial nerves: Yes CN's II-XII intact bilaterally and Yes Equal, round and reactive pupils present Cognition (Neuro): normal cognition Motor exam (neuro): 5/5 motor strength present throughout Extrem: General: Yes normal to inspection and Yes full ROM Psych: Appearance: well kempt Mental Status: mental status grossly normal Speech and movement: Normal speech and movement present Affect: normal affect Attitude: cooperative Thought process: Normal thought process present Thought content: Normal thought content present Course Course Course Narrative: 50-year-old female with history of sickle cell anemia who presents emergency department for evaluation of fever, cough, chest pain, bilateral lower extremity pain x3 days. The patient's physical examination was unremarkable. The patient's laboratory evaluation was unremarkable. The patient's headache was treated with Reglan 10 mg IV, Benadryl 25 mg IV and Dilaudid 1 mg IV for her headache and for her sickle cell pain. She required a 2nd dose of Dilaudid 1 mg IV. Her laboratory evaluation did reveal anemia but this is consistent with her sickle cell disease. I do not think that she is in an aplastic crisis at this time. Patient's COVID-19 test was positive The patient's D-dimer was elevated and the CT pulmonary angiogram PE protocol revealed no pulmonary embolism but she does have evidence of the interstitial pneumonia which is consistent with a COVID-19 viral pneumonia. Patient's urine did reveal white blood cells and bacteria and I did treat her with ceftriaxone 1 g IV for possible urinary tract infection. The patient was placed on oxygen and required 35% oxygen via non rebreather and despite this she does desaturate down to 85% at times. Given these findings, I think that the patient needs to be admitted. I did discuss the patient's presentation with the covering hospitalist, Dr. Barron and the patient will be admitted to intermediate care unit for further treatment. Procedures Procedure Narrative Procedure Narrative: Right external jugular IV access: The patient had poor peripheral access therefore I discussed getting an IV in the patient's jugular vein and she did give me informed verbal consent. The patient was placed in Trendelenburg. The patient's right neck was prepped with alcohol. The external jugular vein was visualized and punctured with an 18 gauge Angiocath. There was good blood flash and blood return. The patient's laboratory specimens were drawn from the IV. The IV was easily flushed. The IV was taped in place by nursing staff. The patient tolerated the procedure well. Medical Decision Making Lab Data Result diagrams: 06/14/20 00:47 06/14/20 00:47 Labs: Lab Results 06/14/20 06/14/20 06/14/20 Range/Units 00:47 00:47 00:47 WBC 16.8 H (4.8-10.8) X10*3/uL RBC 1.80 L (4.20-5.50) X10*6/uL Hgb 6.5 L* (12.0-16.0) g/dl Hct 17.7 L* (37-47) % MCV 98.3 H (80-98) fL MCH 36.1 H (27.0-33.0) pg MCHC 36.7 H (31.0-35.0) g/dl RDW 19.9 H (11.0-16.0) % Plt Count 126 L (160-400) X10*3/uL MPV 12.5 H (9.4-12.3) fL Immature Gran % (Auto) 0.9 H (0.0-0.4) % Neut % (Auto) 73.2 H (45-73) % Lymph % (Auto) 12.4 L (20-40) % [place] % (Auto) 12.4 H (2-11) % Eos % (Auto) 0.7 (0-4) % Baso % (Auto) 0.4 (0-2) % Lymph # (Auto) 2.1 (1.2-4.9) X10*3/uL [place] # (Auto) 2.1 H (0.1-1.2) X10*3/uL Eos # (Auto) 0.1 (0.0-0.4) X10*3/uL Baso # (Auto) 0.1 (0.0-0.2) X10*3/uL Abs Immat Gran (auto) 0.15 H (0.00-0.03) X10*3/uL Absolute Neuts (auto) 12.3 H (2.0-8.3) X10*3/uL Absolute Nucleated RBC 0.880 H (0.0-0.012) X10*3/uL Nucleated RBC % (auto) 5.2 H (0.0-0.2) /100WBC Absolute Retic 0.292 H (0.026-0.095) X10*6/uL Percent Retic 16.4 H (0.5-1.8) % Immature Retic Fraction 33.8 H (3.0-15.9) % Retic Hgb Equivalent 35.4 H (30.0-35.0) pg Sodium 136 (135-145) mmol/L Potassium 3.9 (3.3-5.1) mmol/L Chloride 106 (96-108) mmol/L Carbon Dioxide 19 L (22-29) mmol/L Anion Gap 15 (12-20) BUN 17 H (9-16) mg/dL Creatinine 0.83 (0.5-1.4) mg/dL Estim Creat Clear Calc 70.7 Estimated GFR > 60 Random Glucose 90 (60-115) mg/dL Lactic Acid (0.5-2.0) mmol/L Calcium 8.5 (8.4-10.2) mg/dL Total Bilirubin 5.2 H (0.0-1.0) mg/dL AST 138 H (5-31) U/L ALT 46 H (0-31) U/L Alkaline Phosphatase 139 H (39-117) U/L Troponin I High Sens (<3.5-17.0) ng/L Total Protein 7.2 (6.5-8.0) g/dL Albumin 3.4 L (3.5-5.0) g/dL Lipase 46 (8-78) U/L Ethyl Alcohol mg/dL COVID-19 ([facility]) Positive A (Negative) COVID-19 Clin Com See Note 06/14/20 06/14/20 06/14/20 Range/Units 00:47 00:47 02:38 WBC (4.8-10.8) X10*3/uL RBC (4.20-5.50) X10*6/uL Hgb (12.0-16.0) g/dl Hct (37-47) % MCV (80-98) fL MCH (27.0-33.0) pg MCHC (31.0-35.0) g/dl RDW (11.0-16.0) % Plt Count (160-400) X10*3/uL MPV (9.4-12.3) fL Immature Gran % (Auto) (0.0-0.4) % Neut % (Auto) (45-73) % Lymph % (Auto) (20-40) % [place] % (Auto) (2-11) % Eos % (Auto) (0-4) % Baso % (Auto) (0-2) % Lymph # (Auto) (1.2-4.9) X10*3/uL [place] # (Auto) (0.1-1.2) X10*3/uL Eos # (Auto) (0.0-0.4) X10*3/uL Baso # (Auto) (0.0-0.2) X10*3/uL Abs Immat Gran (auto) (0.00-0.03) X10*3/uL Absolute Neuts (auto) (2.0-8.3) X10*3/uL Absolute Nucleated RBC (0.0-0.012) X10*3/uL Nucleated RBC % (auto) (0.0-0.2) /100WBC Absolute Retic (0.026-0.095) X10*6/uL Percent Retic (0.5-1.8) % Immature Retic Fraction (3.0-15.9) % Retic Hgb Equivalent (30.0-35.0) pg Sodium (135-145) mmol/L Potassium (3.3-5.1) mmol/L Chloride (96-108) mmol/L Carbon Dioxide (22-29) mmol/L Anion Gap (12-20) BUN (9-16) mg/dL Creatinine (0.5-1.4) mg/dL Estim Creat Clear Calc Estimated GFR Random Glucose (60-115) mg/dL Lactic Acid 0.8 (0.5-2.0) mmol/L Calcium (8.4-10.2) mg/dL Total Bilirubin (0.0-1.0) mg/dL AST (5-31) U/L ALT (0-31) U/L Alkaline Phosphatase (39-117) U/L Troponin I High Sens < 3.5 (<3.5-17.0) ng/L Total Protein (6.5-8.0) g/dL Albumin (3.5-5.0) g/dL Lipase (8-78) U/L Ethyl Alcohol < 10 mg/dL COVID-19 ([facility]) (Negative) COVID-19 Clin Com Critical Care Time Critical Care Time Critical Care Time: Yes Total Critical Care Time: 35 Attestation: Critical Care: The patient was critically ill with a high probability of imminent or life threatening deterioration. I spent greater than 30 minutes of discontinuous time evaluating the patient,delivering critical care at the bedside, discussing and evaluating pertinent data with consultants. Critical care time does not include time spent performing separately billable procedures or teaching. Total time spent performing critical care was 35 minutes. Discharge Plan Discharge Clinical Impression: Pneumonia due to 2019 novel coronavirus, Sickle cell anemia with crisis, Hypoxia Patient Disposition: Admitted As Inpatient Prescriptions: No Action oxycodone-acetaminophen 7.5-325 mg tablet 2 tab PO Q4H RF: 0 multivitamin [Daily-Lazara] Tablet 1 tab PO DAILY RF: 0 albuterol sulfate 2.5 mg /3 mL (0.083 %) solution for nebulization 2.5 mg inhalation Q6H RF: 0 sertraline 25 mg tablet 50 mg PO DAILY RF: 0 omeprazole 20 mg capsule,delayed release(DR/EC) 20 mg PO DAILY RF: 0 hydroxyzine pamoate 25 mg capsule 25 mg PO QID PRN (Reason: anxiety) RF: 0
--- NOTE | 2020-06-13 23:38 | PC.NURSE ---
Per patient. if this nurse misses i'm going to punch her in the thoat. IV attempted, lac. Flash obtained, while threading catheter, patient then jerked arm and stated this fucking bitch can't do it . Meds and labs delayed. MD aware. During attempt, pt was screaming and crying. Once this news writer left the room, patient then turned over and went back to sleep. resting quietly no apparent distress.
[2020-06-14] VITALS (11 sets, daily range): BP systolic 94–120; BP diastolic 48–60; PULSE 70–95; RESP 14–22; TEMP 36.6–37.7; O2SAT 93–98
[2020-06-14] MEDS: Metoclopramide HCl 10 MG/2 ML VIAL IVPUSH (00:49)
[2020-06-14] MEDS: 0.9 % Sodium Chloride 1,000 ML 999 ML IV (00:49)
[2020-06-14] MEDS: diphenhydrAMINE HCL 50 MG/ML VIAL IVPUSH (00:51)
[2020-06-14 00:53] LABS: Basophils Absolute Auto 0.1 X10*3/uL (0.0-0.2); Basophils Percent Auto 0.4 % (0-2); MANUAL DIFF FLAG NO; PLT CLUMP 1; SCAN SMEAR FLAG 1; WBC ABN SCTR 1
[2020-06-14 00:55] LABS: Lymphocytes Absolute Auto 2.1 X10*3/uL (1.2-4.9)
[2020-06-14] MEDS: HYDROmorphone HCl 1 MG/ML SYRINGE IVPUSH ×2 (00:57→03:34)
[2020-06-14 00:58] LABS: Immature Retic Fraction 33.8 % (3.0-15.9); Retic HGB Equivalent 35.4 pg (30.0-35.0); Reticulocyte Percent 16.4 % (0.5-1.8); Reticulocytes Absolute 0.292 X10*6/uL (0.026-0.095)
[2020-06-14 00:59] LABS: COVID-19 Test Positive (Negative)
[2020-06-14 01:09] LABS: Eosinophils Absolute Auto 0.1 X10*3/uL (0.0-0.4); Eosinophils Percent Auto 0.7 % (0-4); Imm Gran Abs Auto 0.15 X10*3/uL (0.00-0.03); Imm Gran Pct Auto 0.9 % (0.0-0.4); Lymphocytes Percent Auto 12.4 % (20-40); Mean Corpuscular HGB Conc 36.7 g/dl (31.0-35.0); Mean Corpuscular Hemoglobin 36.1 pg (27.0-33.0); Mean Corpuscular Volume 98.3 fL (80-98); Mean Platelet Volume 12.5 fL (9.4-12.3); Monocytes Absolute Auto 2.1 X10*3/uL (0.1-1.2); Monocytes Percent Auto 12.4 % (2-11); NRBC Pct Auto 5.2 /100WBC (0.0-0.2); Neutrophils Absolute Auto 12.3 X10*3/uL (2.0-8.3); Neutrophils Percent Auto 73.2 % (45-73); Platelet Count 126 X10*3/uL (160-400); Red Cell Distribution Width 19.9 % (11.0-16.0); WBC ABN SCTR FOR CBC 1; White Blood Count 16.8 X10*3/uL (4.8-10.8)
[2020-06-14 01:16] LABS: Hemoglobin 6.5 g/dl (12.0-16.0)
[2020-06-14 01:17] LABS: Ethanol < 10 mg/dL; Hematocrit 17.7 % (37-47)
[2020-06-14 01:23] LABS: Troponin-I High Sensitivity < 3.5 ng/L (<3.5-17.0)
[2020-06-14 01:24] LABS: Alanine Aminotransferase 46 U/L (0-31); Albumin Level 3.4 g/dL (3.5-5.0); Alkaline Phosphatase 139 U/L (39-117); Anion Gap 15 (12-20); Aspartate Amino Transferase 138 U/L (5-31); Bilirubin Total 5.2 mg/dL (0.0-1.0); Blood Urea Nitrogen 17 mg/dL (9-16); Calcium 8.5 mg/dL (8.4-10.2); Carbon Dioxide 19 mmol/L (22-29); Chloride 106 mmol/L (96-108); Creatinine Clr Calc Pharmacy 70.7; Estimated Glomerular Filt Rate > 60; Glucose Random 90 mg/dL (60-115); Lipase 46 U/L (8-78); Potassium 3.9 mmol/L (3.3-5.1); Sodium 136 mmol/L (135-145); Total Protein 7.2 g/dL (6.5-8.0)
--- NOTE | 2020-06-14 01:57 | PC.NURSE ---
phlebotomy contacted for blood draw due to difficult stick.
[2020-06-14] MEDS: cefTRIAXone sodium 1 GM in 0.9 % Sodium Chloride 50 ML IV (02:57)
--- NOTE | 2020-06-14 02:58 | PC.NURSE ---
pt is now vomiting. md aware.
[2020-06-14 03:07] LABS: Lactic Acid 0.8 mmol/L (0.5-2.0)
[2020-06-14] MEDS: ondansetron HCL 4 MG/2 ML VIAL IVPUSH ×2 (03:34→17:50)
[2020-06-14] MEDS: iohexoL 350 MG/ML 100 ML INFUS..BTL 65 ML IV (04:15)
--- NOTE | 2020-06-14 04:35 | PC.NURSE ---
PATIENT RINGING SEVERAL TIMES FOR NURSE THIS RN IS OUTSIDE OF THE ROOM TALKING TO PATIENT ABOUT NEEDS. PATIENT ABLE TO GET UP AND AMBULATE TO THE BATHROOM. RETURNING TO ROOM AND REFUSING TO GO BACK ON THE OXYGEN AND MONITOR, YOU NEED TO FIND MY ACCOUNTS PAYABLE PAYROLL COORDINATOR, I KNOW YOU TOOK IT EXPLAINING TO PATIENT SHE JUST MOVED FROM A DIFFERENT ROOM. PATIENT NOT BELIEVING THIS NURSE THAT SHE HAD A ROOM CHANGE. STILL BEING ACCUSATORY TO THIS RN. ACCOUNTS PAYABLE PAYROLL COORDINATOR FOUND IN PATIENTS PREVIOUS ROOM, PATIENT CONTINUES TO RING THE CURTIS TO YELL AT THIS NURSE. DID ALLOW FOR NURSE TO PLACE HER ON THE VENTI MASK AGAIN AND PATIENT HAVING PART OF THE MONITOR ON AND SCRATCHING OFF THE REST OF THE LEADS.
--- NOTE | 2020-06-14 05:36 | PC.NURSE ---
This RN noted pt to have O2 sat of 87%. This RN to bedside, finds pt asleep without mask of supplemental O2 on. This RN repositions mask to sit on pt's face as indicated. Pt awakens and states I wish you would stop fucking waking me up for stupid shit. This RN explains to pt the significance of pt's O2 level and ensuring pt is receiving adequate oxygenation. Pt states shove that up your ass. Pt vitals assess, VSS. Pt currently wearing mask and satting 99%.
--- NOTE | 2020-06-14 05:42 | PC.NURSE ---
Pt repeatedly removing self from toy electric train repairer despite multiple attempts by this RN and Lavonne RN to ensure pt's safety by complying with pt care. Dr Galvan at bedside at this time discussing plan for admission.
--- NOTE | 2020-06-14 05:53 | PC.NURSE ---
Per Dr Galvan, pt adamantly requesting to leave.
[2020-06-14 08:10] LABS: Glucose Urine UA NEG (NEG); Leukocyte Esterase Urine 2+ (NEG); Nitrite Urine POS (NEG); PH 6.5 (5.0-8.0); Specific Gravity - Urine <= 1.005 (1.005-1.025); UACC Culture Trigger YES; Urine Blood 2+ (NEG); Urine Ketones NEG (NEG); Urine Protein TRACE MG/DL (NEG-TRACE)
[2020-06-14 08:12] LABS: Appearance Urine CLOUDY; Color Urine YELLOW
[2020-06-14 08:24] LABS: Bacteria Urine 1+ /LPF; RBC Urine 0-2 /HPF (0); WBC Clumps Urine NOTED
[2020-06-14 08:34] LABS: Amphetamine Screen Urine Not Detected (Not Detect); Barbiturates, Urine Not Detected (Not Detect); Benzodiazepines Screen Urine Not Detected (Not Detect); Cannabinoid Screen Urine Not Detected (Not Detect); Cocaine Screen Urine POSITIVE (Not Detect); Opiate Screen Urine Not Detected (Not Detect); Phencyclidine Screen Urine Not Detected (Not Detect)
[2020-06-14] MEDS: dexAMETHasone sod phosphate 4 MG/ML VIAL 6 MG IVPUSH (08:49)
--- NOTE | 2020-06-14 08:49 | PC.NURSE ---
pt ate 50% of breakfast.
[2020-06-14 09:38] LABS: CT PCR NOT DETECTED (Not Detect.); NG PCR NOT DETECTED (Not Detect.)
[2020-06-14 09:53] LABS: BV Int Neg Control Negative (Negative); BV Int Pos Control Positive (Positive)
--- NOTE | 2020-06-14 16:57 | PM.IMHP ---
History of Present Illness Date of Service: 06/14/20 Chief Complaint: Pain This is a 50-year-old female with a history of sickle cell anemia who presented to the emergency department with complaints of pain. She reports headache as well as pain in her side. She reports subjective fever at home although she has not checked her temperature. She reports intermittent cough over the past 3 days but denies any shortness of breath. Workup in the emergency department revealed H/H of 6.5/17.7. Urinalysis was consistent with the UTI and she was started on ceftriaxone. She also tested positive for coronavirus. CTA was consistent with COVID-19. She initially required Venti mask but is currently on 3 L nasal cannula. She was given a dose of IV dexamethasone. She is unsure if she has had any positive covid contacts. Review of Systems Review of Systems: Yes all other systems are reviewed and are negative Constitutional: Constitutional: Denies chills Cardiovascular: Cardiovascular: Denies dyspnea Respiratory: Respiratory: Reports cough and Denies dyspnea Gastrointestinal: Gastrointestinal: Denies abdominal pain [facility] Medical History Bipolar 1 disorder Cocaine abuse GERD (gastroesophageal reflux disease) PTSD (post-traumatic stress disorder) Sickle cell anemia Functional capacity: independent ambulation Family History (Updated 06/14/20 @ 17:06 by NICO Serna) Other Diabetes Family history: reviewed and not pertinent Surgical History Hx of cholecystectomy Social History (Updated 06/14/20 @ 17:08 by NICO Serna) Household Members: None Housing: Apartment Alcohol intake: current Alcohol intake frequency: a few times a week Alcohol type: beer Smoking Status: Current every day smoker Tobacco Type: Cigarette Packs Per Day: 0.5 Second Hand Smoke Exposure: Yes Use of substances other than those prescribed or required for medical reasons: Yes 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 Drugs and Crack/Cocaine Any prior treatment program specific to substance use: No Advance Directives: No Advance Directives Information Provided: Yes service: No Current occupational status: disabled Meds Allergies Allergy/AdvReac Type Severity Reaction Status Date / Time prochlorperazine Allergy Severe ANAPHYLAXIS Verified 05/10/20 01:39 [From COMPAZINE] Active Medications: Current Medications Generic Name Dose Route Start Last Admin Trade Name Freq PRN Reason Stop Dose Admin Acetaminophen 650 mg 06/14/20 16:42 Acetaminophen 325 Mg Tablet PO Q6H PRN Pain, Mild (Pain Scale 1-3) Albuterol Sulfate 2.5 mg 06/14/20 16:45 Albuterol Sulfate (0.083%) 2.5 Mg/3 Ml Vial.Neb INHALE Q6H [facility] Dexamethasone Sodium Phosphate 6 mg 06/15/20 09:00 Dexamethasone Sod Phosphate 4 Mg/Ml Vial IVPUSH DAILY [facility] Docusate Sodium 100 mg 06/14/20 16:42 Docusate Sodium 100 Mg Capsule PO DAILY PRN Constipation Folic Acid 1 mg 06/15/20 09:00 Folic Acid 1 Mg Tablet PO DAILY [facility] Hydroxyurea 500 mg 06/14/20 21:00 Hydroxyurea 500 Mg Capsule PO BID [facility] Hydroxyzine HCl 50 mg 06/14/20 16:42 Hydroxyzine Hcl 25 Mg Tablet PO QID PRN anxiety Morphine Sulfate 2 mg 06/14/20 16:42 Morphine Sulfate 4 Mg/Ml Cartridge IVPUSH Q4H PRN Pain, Severe (Pain Scale 7-10) Nicotine 14 mg 06/14/20 16:45 Nicotine 14 Mg Patch.Td24 TRANSDERMA DAILY [facility] Omeprazole 40 mg 06/15/20 06:30 Omeprazole 20 Mg Capsule.Dr PO DAILY@0630 [facility] Ondansetron HCl 4 mg 06/14/20 16:42 Ondansetron Hcl 4 Mg/2 Ml Vial IVPUSH Q8H PRN Nausea and Vomiting Senna 17.2 mg 06/14/20 16:42 Sennosides 8.6 Mg Tablet PO BEDTIME PRN Constipation Sertraline HCl 50 mg 06/15/20 09:00 Sertraline Hcl 50 Mg Tablet PO DAILY [facility] Home Medications Medication Instructions Recorded Confirmed Last Taken Type albuterol sulfate 2.5 mg INHALATION Q6H 12/05/19 06/14/20 Unknown History hydroxyzine pamoate 50 mg PO QID PRN 12/05/19 06/14/20 06/10/20 History omeprazole 40 mg PO DAILY 12/05/19 06/14/20 06/13/20 History sertraline 50 mg PO DAILY 12/05/19 06/14/20 06/13/20 History folic acid 1 mg PO DAILY 06/14/20 06/14/20 Unknown History hydroxyurea 500 mg PO BID 06/14/20 06/14/20 Unknown History oxycodone-acetaminophen 2 tab PO Q4H PRN 06/14/20 06/14/20 Unknown History Physical Exam Vital Signs and Narrative: Vital Signs: Last Vital Signs Temp 98.9 F 06/14/20 12:45 Pulse 93 06/14/20 12:45 Resp 20 06/14/20 12:45 BP 94/49 L 06/14/20 12:45 Pulse Ox 98 06/14/20 12:45 Body Mass Index 22.4 Const: General: comfortable, no acute distress, alert and awake Nutritional Appearance: thin Orientation/consciousness: patient oriented x3 HENMT: Head: Yes normocephalic and Yes atraumatic Eyes: Sclerae: sclerae normal Chest: Chest palpation & inspection: normal inspection of the chest Resp: Effort & Inspection: normal respiratory effort and no respiratory distress Cardio: Rate: regular rate Rhythm: regular rhythm GI: Palpation (GI): Soft to palpation and nontender Neuro: General: patient oriented x3 Cranial nerves: Yes CN's II-XII intact bilaterally and Yes Bilaterally intact EOM present Results Labs CBC and Chem 7: 06/14/20 00:47 06/14/20 00:47 Labs: Laboratory Results - last 24 hr 06/14/20 06/14/20 06/14/20 00:47 00:47 00:47 MCV 98.3 H MCH 36.1 H MCHC 36.7 H RDW 19.9 H Plt Count 126 L MPV 12.5 H Immature Gran % (Auto) 0.9 H Neut % (Auto) 73.2 H Lymph % (Auto) 12.4 L [place] % (Auto) 12.4 H Eos % (Auto) 0.7 Baso % (Auto) 0.4 Lymph # (Auto) 2.1 [place] # (Auto) 2.1 H Eos # (Auto) 0.1 Baso # (Auto) 0.1 Abs Immat Gran (auto) 0.15 H Absolute Neuts (auto) 12.3 H Absolute Nucleated RBC 0.880 H Nucleated RBC % (auto) 5.2 H Absolute Retic 0.292 H Percent Retic 16.4 H Immature Retic Fraction 33.8 H Retic Hgb Equivalent 35.4 H Anion Gap 15 Estim Creat Clear Calc 70.7 Estimated GFR > 60 Random Glucose 90 Lactic Acid Calcium 8.5 Total Bilirubin 5.2 H AST 138 H ALT 46 H Alkaline Phosphatase 139 H Troponin I High Sens Total Protein 7.2 Albumin 3.4 L Lipase 46 Urine Color Urine Appearance Urine pH Ur Specific [place] Urine Protein Urine Glucose (UA) Urine Ketones Urine Blood Urine Nitrite Ur Leukocyte Esterase Urine RBC Urine WBC Urine WBC Clumps Ur Squamous Epith Cells Urine Bacteria Urine Opiates Screen Ur Barbiturates Screen Ur Phencyclidine Scrn Ur Amphetamines Screen U Benzodiazepines Scrn Urine Cocaine Screen U Marijuana (THC) Screen Ethyl Alcohol Giana species DNA Chlam trachomat DNA PCR COVID-19 ([facility]) Positive A COVID-19 Clin Com See Note [place] DNA Probe N.gonorrhoeae DNA (PCR) Trichomonas DNA Probe 06/14/20 06/14/20 06/14/20 00:47 00:47 02:38 MCV MCH MCHC RDW Plt Count MPV Immature Gran % (Auto) Neut % (Auto) Lymph % (Auto) [place] % (Auto) Eos % (Auto) Baso % (Auto) Lymph # (Auto) [place] # (Auto) Eos # (Auto) Baso # (Auto) Abs Immat Gran (auto) Absolute Neuts (auto) Absolute Nucleated RBC Nucleated RBC % (auto) Absolute Retic Percent Retic Immature Retic Fraction Retic Hgb Equivalent Anion Gap Estim Creat Clear Calc Estimated GFR Random Glucose Lactic Acid 0.8 Calcium Total Bilirubin AST ALT Alkaline Phosphatase Troponin I High Sens < 3.5 Total Protein Albumin Lipase Urine Color Urine Appearance Urine pH Ur Specific [place] Urine Protein Urine Glucose (UA) Urine Ketones Urine Blood Urine Nitrite Ur Leukocyte Esterase Urine RBC Urine WBC Urine WBC Clumps Ur Squamous Epith Cells Urine Bacteria Urine Opiates Screen Ur Barbiturates Screen Ur Phencyclidine Scrn Ur Amphetamines Screen U Benzodiazepines Scrn Urine Cocaine Screen U Marijuana (THC) Screen Ethyl Alcohol < 10 Giana species DNA Chlam trachomat DNA PCR COVID-19 ([facility]) COVID-19 Clin Com Gardnerella DNA Probe N.gonorrhoeae DNA (PCR) Trichomonas DNA Probe 06/14/20 06/14/20 06/14/20 03:15 03:15 07:48 MCV MCH MCHC RDW Plt Count MPV Immature Gran % (Auto) Neut % (Auto) Lymph % (Auto) [place] % (Auto) Eos % (Auto) Baso % (Auto) Lymph # (Auto) [place] # (Auto) Eos # (Auto) Baso # (Auto) Abs Immat Gran (auto) Absolute Neuts (auto) Absolute Nucleated RBC Nucleated RBC % (auto) Absolute Retic Percent Retic Immature Retic Fraction Retic Hgb Equivalent Anion Gap Estim Creat Clear Calc Estimated GFR Random Glucose Lactic Acid Calcium Total Bilirubin AST ALT Alkaline Phosphatase Troponin I High Sens Total Protein Albumin Lipase Urine Color YELLOW Urine Appearance CLOUDY Urine pH 6.5 Ur Specific [place] <= 1.005 Urine Protein TRACE Urine Glucose (UA) NEG Urine Ketones NEG Urine Blood 2+ H Urine Nitrite POS H Ur Leukocyte Esterase 2+ H Urine RBC 0-2 Urine WBC 76-150 H Urine WBC Clumps NOTED Ur Squamous Epith Cells NONE Urine Bacteria 1+ Urine Opiates Screen Ur Barbiturates Screen Ur Phencyclidine Scrn Ur Amphetamines Screen U Benzodiazepines Scrn Urine Cocaine Screen U Marijuana (THC) Screen Ethyl Alcohol Giana species DNA Negative Chlam trachomat DNA PCR NOT DETECTED COVID-19 ([facility]) COVID-19 Clin Com Gard[place]rella DNA Probe Negative N.gonorrhoeae DNA (PCR) NOT DETECTED Trichomonas DNA Probe Negative 06/14/20 07:48 MCV MCH MCHC RDW Plt Count MPV Immature Gran % (Auto) Neut % (Auto) Lymph % (Auto) [place] % (Auto) Eos % (Auto) Baso % (Auto) Lymph # (Auto) [place] # (Auto) Eos # (Auto) Baso # (Auto) Abs Immat Gran (auto) Absolute Neuts (auto) Absolute Nucleated RBC Nucleated RBC % (auto) Absolute Retic Percent Retic Immature Retic Fraction Retic Hgb Equivalent Anion Gap Estim Creat Clear Calc Estimated GFR Random Glucose Lactic Acid Calcium Total Bilirubin AST ALT Alkaline Phosphatase Troponin I High Sens Total Protein Albumin Lipase Urine Color Urine Appearance Urine pH Ur Specific [place] Urine Protein Urine Glucose (UA) Urine Ketones Urine Blood Urine Nitrite Ur Leukocyte Esterase Urine RBC Urine WBC Urine WBC Clumps Ur Squamous Epith Cells Urine Bacteria Urine Opiates Screen Not Detected Ur Barbiturates Screen Not Detected Ur Phencyclidine Scrn Not Detected Ur Amphetamines Screen Not Detected U Benzodiazepines Scrn Not Detected Urine Cocaine Screen POSITIVE H U Marijuana (THC) Screen Not Detected Ethyl Alcohol Giana species DNA Chlam trachomat DNA PCR COVID-19 ([facility]) COVID-19 Clin Com Gardnerella DNA Probe N.gonorrhoeae DNA (PCR) Trichomonas DNA Probe Imaging Radiologist's Impressions: Impressions Chest X-Ray 06/14/20 01:50 IMPRESSION: Subtle patchy bilateral opacities. This could be associated with infectious process. Chest CTA 06/14/20 03:10 IMPRESSION: 1. No pulmonary embolism. 2. Cystic changes are seen at both lung bases which may represent early honeycombing as can be seen with usual interstitial pneumonia. There is associated groundglass opacity with mild septal thickening. There could also be a component of pulmonary edema as the heart is enlarged. 3. Prominent main pulmonary artery suggestive of pulmonary artery hypertension. VTE: negative Assessment and Plan (1) Pneumonia due to 2019 novel coronavirus: Status: Acute (2) Sickle cell anemia: Qualifiers: Sickle-cell associated disorders: with crisis with other complication Qualified Code(s): D57.09 - Hb-SS disease with crisis with other specified complication Status: Acute (3) Hypoxia: Status: Acute (4) UTI (urinary tract infection): Qualifiers: Urinary tract infection type: acute cystitis Status: Acute This is a 50-year-old female with history of sickle cell disease, substance abuse who presents to the emergency department with headache found to be anemic, COVID-19 positive covid 19 pneumonia -iv dexamethasone -supplemental o2 prn Sickle cell anemia H/H below baseline -transfuse 1 unit RBC, follow H/H -continue hydrea -pain control UTI -IV ceftriaxone -FU Ucx, BCx Substance abuse -careteam evaluation ?etoh use unclear, previous documentation indicates daily use, patient denies. there is no evidence of alcohol withdrawal at this time -CIWA Mood continue sertraline Tobacco dependence -NRT gerd continue omeprazole dvt ppx - mechanical devices code status - full code Attending - Dr. Cruz
[2020-06-14] MEDS: Nicotine 14 MG PATCH.TD24 TRANSDERMA (17:49)
[2020-06-14] MEDS: Morphine Sulfate 4 MG/ML CARTRIDGE 2 MG IVPUSH ×2 (17:49→22:11)
--- NOTE | 2020-06-14 17:53 | PM.EVENT ---
Event Note Date of Service: 06/15/20 Event Note: the patient was seen and evaluated with NICO Pérez. I agree with her note, assessment and plan with the following. A 50-year-old female with PMHx of sickle cell anemia, GERD, Bibolar, substance abuse who presented to the emergency department with complaints of increase weakness and generalized pain. she reports fever at home associated with headache and all over pain. reporting cough. In ER tested Positive for covid with +ve urine for UTI and worsening Hb of 6.5 from baseline around 8. Covid 19 infx start Dexamethasone wean O2 down as tolerated UTI pending u.cx start Ceftriaxone acute on chronic anemia transfuse a unit of blood not in SS crisis at this point Rest of evaluations by PA note.
[2020-06-14] MEDS: oxyCODONE HCl Immed Release 5 MG TABLET 7.5 MG PO (19:58)
[2020-06-14] MEDS: Hydroxyurea 500 MG CAPSULE PO (22:11)
[2020-06-14] MEDS: hydrOXYzine HCL 25 MG TABLET 50 MG PO (22:36)
[2020-06-14] MEDS: 0.9 % Sodium Chloride Flush 3 ML SYRINGE IVFLUSH (23:55)
[2020-06-15] VITALS (13 sets, daily range): BP systolic 89–117; BP diastolic 44–69; PULSE 63–87; RESP 16–20; TEMP 36.1–37; O2SAT 90–94
[2020-06-15] MEDS: Morphine Sulfate 4 MG/ML CARTRIDGE 2 MG IVPUSH ×2 (03:40→09:15)
[2020-06-15] MEDS: diphenhydrAMINE HCL 50 MG/ML VIAL 25 MG IVPUSH ×3 (03:41→23:40)
[2020-06-15] MEDS: Sertraline HCL 50 MG TABLET PO (08:51)
[2020-06-15] MEDS: 0.9 % Sodium Chloride Flush 3 ML SYRINGE IVFLUSH ×2 (08:52→16:56)
[2020-06-15] MEDS: dexAMETHasone sod phosphate 4 MG/ML VIAL 6 MG IVPUSH (08:52)
[2020-06-15] MEDS: Hydroxyurea 500 MG CAPSULE PO ×2 (08:52→22:20)
--- NOTE | 2020-06-15 09:28 | MHC.CM.PN ---
Patient has Covid; CM spoke with her over the phone @ [phone]. Patient answered the phone by saying, I need help with housing. Patient reports that she was living alone in a rooming house, that her Trust Rn Chronic placed her in and she does not want to return there(she is the only woman there, drugs are being used there, filthy). Patient indicated that she will figure out where she is going at ca and that she is phoning her Trust Rn Chronic now to discuss different housing options. 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 Son/Christy is Patient's HCP and her PCP is out of [facility] in [place].Patient addressed IMM and will be mailing original to Christy and a copy has been placed on the chart (PATIENT IS COVID POSITIVE).
--- NOTE | 2020-06-15 10:57 | MHC.RECOVRN ---
T/w spoke with pt over the phone, due to COVID, after consult was placed to CARE Team. Pt reports using cocaine, smoked, $50 daily x 5-6 months. Pt states I need a break. When asked about past periods of recovery, pt states I usually just quit, I give up. I had 2 years once, I didn't go to rehab or anything. But that was years ago. Pt is concerned about unsafe housing, CM aware. 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 Pt given information regarding both and referral sent for [facility]. Pt declines other resources or supports. Pt given t/w contact information if she would like to reach out to discuss recovery or other supports further.
--- NOTE | 2020-06-15 11:35 | PC.NURSE ---
Phlebotomy came out of patients room very upset stating that patient was very verbally abusive and refusing to let her attempt to draw repeat CBC again. why don't they just put in a port!!?? Daisy Dempsey notified.
[2020-06-15] MEDS: Nicotine Polacrilex 2 MG GUM 4 MG BUCCAL ×2 (12:42→23:59)
[2020-06-15] MEDS: oxyCODONE HCl Immed Release 5 MG TABLET 7.5 MG PO (13:03)
[2020-06-15] MEDS: hydrOXYzine HCL 25 MG TABLET 50 MG PO (13:05)
[2020-06-15 14:22] LABS: Hemoglobin 7.1 g/dl (12.0-16.0); Red Cell Distribution Width 17.8 % (11.0-16.0)
[2020-06-15 14:24] LABS: Mean Corpuscular Hemoglobin 35.1 pg (27.0-33.0); Mean Platelet Volume 12.9 fL (9.4-12.3); Platelet Count 109 X10*3/uL (160-400); Red Blood Count 2.02 X10*6/uL (4.20-5.50)
[2020-06-15 14:34] LABS: Hematocrit 19.2 % (37-47); NRBC Pct Auto 7.9 /100WBC (0.0-0.2); White Blood Count 7.9 X10*3/uL (4.8-10.8)
--- NOTE | 2020-06-15 14:41 | P.PNIM_ITS ---
Subjective Subjective Date of Service: 06/15/20 Interval History: Follow-up for anemia, COVID-19 Seen and examined this morning, pleasant and cooperative during exam. Later declined lab work and was verbally abusive towards staff Report pain improving Review of Systems Review of Systems: Yes all other systems are reviewed and are negative Constitutional Constitutional: Denies chills and Denies fever(s) Respiratory Respiratory: Denies cough Gastrointestinal Gastrointestinal: Denies abdominal pain Physical Exam Vital Signs: Vital Signs: Last Vital Signs Temp 98.2 F 06/15/20 11:33 Pulse 73 06/15/20 11:33 Resp 20 06/15/20 11:33 BP 107/62 06/15/20 11:33 Pulse Ox 90 L 06/15/20 11:33 Body Mass Index 22.4 Const: General: no acute distress, alert and awake Nutritional Appearance: well nourished Orientation/consciousness: patient oriented x3 HENMT: Head: Yes normocephalic and Yes atraumatic Eyes: Sclerae: sclerae normal Chest: Chest palpation & inspection: normal inspection of the chest Resp: Effort & Inspection: normal respiratory effort and no respiratory distress Cardio: Rate: regular rate Rhythm: regular rhythm GI: Palpation (GI): Soft to palpation and nontender Neuro: General: patient oriented x3 Cranial nerves: Yes CN's II-XII intact bilaterally and Yes Bilaterally intact EOM present Objective Data Current Medications Generic Name Dose Route Start Last Admin Trade Name Freq PRN Reason Stop Dose Admin Acetaminophen 650 mg 06/14/20 16:42 Acetaminophen 325 Mg Tablet PO Q6H PRN Pain, Mild (Pain Scale 1-3) Albuterol Sulfate 2.5 mg 06/14/20 16:45 06/15/20 13:11 Albuterol Sulfate (0.083%) 2.5 Mg/3 Ml Vial.Neb INHALE Not Given Q6H [facility] Dexamethasone Sodium Phosphate 6 mg 06/15/20 09:00 06/15/20 08:52 Dexamethasone Sod Phosphate 4 Mg/Ml Vial IVPUSH 6 mg DAILY [facility] Administration Diphenhydramine HCl 25 mg 06/15/20 01:13 06/15/20 13:05 Diphenhydramine Hcl 50 Mg/Ml Vial IVPUSH 25 mg Q6H PRN Administration Itching Docusate Sodium 100 mg 06/14/20 16:42 Docusate Sodium 100 Mg Capsule PO DAILY PRN Constipation Folic Acid 1 mg 06/15/20 09:00 06/15/20 08:52 Folic Acid 1 Mg Tablet PO Not Given DAILY [facility] Hydroxyurea 500 mg 06/14/20 21:00 06/15/20 08:52 Hydroxyurea 500 Mg Capsule PO 500 mg BID [facility] Administration Hydroxyzine HCl 50 mg 06/14/20 16:42 06/15/20 13:05 Hydroxyzine Hcl 25 Mg Tablet PO 50 mg QID PRN Administration anxiety Ceftriaxone Sodium 1 gm/ 50 mls @ 100 mls/hr 06/15/20 19:00 Sodium Chloride IV Q24H [facility] Nicotine 14 mg 06/14/20 16:45 06/15/20 08:54 Nicotine 14 Mg Patch.Td24 TRANSDERMA Not Given DAILY [facility] Nicotine Polacrilex 4 mg 06/15/20 09:07 06/15/20 12:42 Nicotine Polacrilex 2 Mg Gum BUCCAL 4 mg Q2H PRN Administration Nicotine Cravings Omeprazole 40 mg 06/15/20 06:30 06/15/20 06:36 Omeprazole 20 Mg Capsule.Dr PO Not Given DAILY@0630 [facility] Ondansetron HCl 4 mg 06/14/20 16:42 06/14/20 17:50 Ondansetron Hcl 4 Mg/2 Ml Vial IVPUSH 4 mg Q8H PRN Administration Nausea and Vomiting Oxycodone HCl 7.5 mg 06/14/20 19:12 06/15/20 13:03 Oxycodone Hcl Immed Release 5 Mg Tablet PO 7.5 mg Q4H PRN Administration Pain, Severe Senna 17.2 mg 06/14/20 16:42 Sennosides 8.6 Mg Tablet PO BEDTIME PRN Constipation Sertraline HCl 50 mg 06/15/20 09:00 06/15/20 08:51 Sertraline Hcl 50 Mg Tablet PO 50 mg DAILY [facility] Administration Sodium Chloride 3 ml 06/15/20 00:00 06/15/20 08:52 0.9 % Sodium Chloride Flush 3 Ml Syringe IVFLUSH 3 ml QSHIFT [facility] Administration Labs CBC & Chem 7: 06/15/20 13:58 06/14/20 00:47 Microbiology Microbiology Results: Microbiology 06/14/20 Unknown Urine clean catch - Clean Catch Midstream Urine Culture - Preliminary Gram negative roberta 06/14/20 02:30 Blood - Venous Blood Culture - Preliminary No growth after 24 hours. 06/14/20 02:30 Blood - Venous Blood Culture - Preliminary No growth after 24 hours. 06/14/20 03:15 Vaginal Trichomonas Preparation - Final Assessment and Plan (1) Pneumonia due to 2019 novel coronavirus: Status: Acute (2) Sickle cell anemia: Status: Acute Assessment and Plan: This is a 50-year-old female with history of sickle cell disease, substance abuse who presents to the emergency department with headache found to be anemic, COVID-19 positive covid 19 pneumonia -supplemental o2 prn, frequently doesn't keep o2 on and is able to maintain o2 of 90% or above -iv dexamethasone day 2 Sickle cell anemia H/H below baseline -s/p 1 U rbc this am, will transfuse 2nd unit -Follow H/H -continue hydrea -pain control UTI -IV ceftriaxone day 2 -UCx growing gram neg rods, follow final sensitivities -Follow BCx Substance abuse -seen by care team ?etoh use unclear, previous documentation indicates daily use, patient denies. there is no evidence of alcohol withdrawal at this time Mood continue sertraline Tobacco dependence -NRT gerd continue omeprazole dvt ppx - mechanical devices code status - full code Attending - Dr. Mcgregor
[2020-06-15 14:52] LABS: Anion Gap 12 (12-20); Blood Urea Nitrogen 17 mg/dL (9-16); Calcium 8.2 mg/dL (8.4-10.2); Carbon Dioxide 17 mmol/L (22-29); Chloride 112 mmol/L (96-108); Creatinine Clr Calc Pharmacy 72.5; Estimated Glomerular Filt Rate > 60; Glucose Random 136 mg/dL (60-115); Potassium 5.4 mmol/L (3.3-5.1); Sodium 136 mmol/L (135-145)
[2020-06-15] MEDS: Morphine Sulfate 2 MG/ML CARTRIDGE IVPUSH (16:44)
[2020-06-15] MEDS: cefTRIAXone sodium 1 GM in 0.9 % Sodium Chloride 50 ML IV (19:24)
[2020-06-15] MEDS: Morphine Sulfate 4 MG/ML CARTRIDGE IVPUSH (23:39)
[2020-06-16] VITALS (8 sets, daily range): BP systolic 96–107; BP diastolic 53–69; PULSE 58–78; RESP 16–20; TEMP 36–37.2; O2SAT 92–99
[2020-06-16] MEDS: 0.9 % Sodium Chloride Flush 3 ML SYRINGE IVFLUSH ×4 (00:17→21:22)
[2020-06-16] MEDS: Omeprazole 20 MG CAPSULE.DR 40 MG PO (06:36)
[2020-06-16 06:57] LABS: Hematocrit 27.7 % (37-47); Hemoglobin 9.8 g/dl (12.0-16.0); Mean Corpuscular HGB Conc 35.4 g/dl (31.0-35.0); Mean Corpuscular Hemoglobin 34.8 pg (27.0-33.0); Mean Corpuscular Volume 98.2 fL (80-98); PLT CLUMP 1; Red Blood Count 2.82 X10*6/uL (4.20-5.50); Red Cell Distribution Width 18.4 % (11.0-16.0)
[2020-06-16 06:59] LABS: NRBC Pct Auto 8.7 /100WBC (0.0-0.2)
[2020-06-16 07:24] LABS: White Blood Count 7.9 X10*3/uL (4.8-10.8)
[2020-06-16] MEDS: Sertraline HCL 50 MG TABLET PO (08:35)
[2020-06-16] MEDS: Folic Acid 1 MG TABLET PO (08:35)
[2020-06-16] MEDS: Hydroxyurea 500 MG CAPSULE PO ×2 (08:35→21:12)
[2020-06-16] MEDS: Morphine Sulfate 2 MG/ML CARTRIDGE IVPUSH ×5 (08:37→21:15)
[2020-06-16] MEDS: diphenhydrAMINE HCL 50 MG/ML VIAL 25 MG IVPUSH ×2 (08:37→21:14)
[2020-06-16] MEDS: dexAMETHasone sod phosphate 4 MG/ML VIAL 6 MG IVPUSH (08:38)
--- NOTE | 2020-06-16 09:03 | HO.PM.IMPN ---
Subjective Subjective Date of Service: 06/16/20 <NICO Serna - Last Filed: 06/16/20 09:22> 06/16/20 <Kris Weber MD - Last Filed: 06/16/20 17:03> Interval History: Seen and examined this morning Denies shortness of breath, reports increase in coughing Reports pain in multiple areas of body, no bowel movement <NICO Serna - Last Filed: 06/16/20 09:22> Review of Systems Review of Systems: Yes all other systems are reviewed and are negative <NICO Serna - Last Filed: 06/16/20 09:22> Constitutional Constitutional: Denies chills and Denies fever(s) <NICO Serna Last Filed: 06/16/20 09:22> Cardiovascular Cardiovascular: Denies dyspnea <NICO Serna - Last Filed: 06/16/20 09:22> Respiratory Respiratory: Reports cough and Denies dyspnea <NICO Serna Last Filed: 06/16/20 09:22> Gastrointestinal Gastrointestinal: Reports constipation <NICO Serna Last Filed: 06/16/20 09:22> Physical Exam Vital Signs: Vital Signs: Last Vital Signs Temp 98.9 F 06/16/20 08:00 Pulse 59 06/16/20 08:00 Resp 19 06/16/20 08:00 BP 96/54 L 06/16/20 08:00 Pulse Ox 99 06/16/20 08:00 Body Mass Index 22.4 <NICO Serna - Last Filed: 06/16/20 09:22> Const: General: alert, awake and Physically active; No no acute distress <NICO Serna Last Filed: 06/16/20 09:22> Nutritional Appearance: thin <NICO Serna Last Filed: 06/16/20 09:22> Orientation/consciousness: patient oriented x3 <NICO Serna Last Filed: 06/16/20 09:22> HENMT: Head: Yes normocephalic and Yes atraumatic <NICO Serna Last Filed: 06/16/20 09:22> Eyes: Sclerae: sclerae normal <NICO Serna Last Filed: 06/16/20 09:22> Chest: Chest palpation & inspection: normal inspection of the chest <NICO Serna Last Filed: 06/16/20 09:22> Resp: Effort & Inspection: normal respiratory effort and no respiratory distress <NICO Serna Last Filed: 06/16/20 09:22> Cardio: Rate: regular rate <NICO Serna Last Filed: 06/16/20 09:22> Rhythm: regular rhythm <NICO Serna Last Filed: 06/16/20 09:22> GI: Palpation (GI): Soft to palpation and nontender <NICO Serna Last Filed: 06/16/20 09:22> Neuro: General: patient oriented x3 <NICO Serna Last Filed: 06/16/20 09:22> Cranial nerves: Yes CN's II-XII intact bilaterally and Yes Bilaterally intact EOM present <NICO Serna Last Filed: 06/16/20 09:22> Objective Data Current Medications Generic Name Dose Route Start Last Admin Trade Name Freq PRN Reason Stop Dose Admin Acetaminophen 650 mg 06/14/20 16:42 Acetaminophen 325 Mg Tablet PO Q6H PRN Pain, Mild (Pain Scale 1-3) Dexamethasone Sodium Phosphate 6 mg 06/15/20 09:00 06/16/20 08:38 Dexamethasone Sod Phosphate 4 Mg/Ml Vial IVPUSH 6 mg DAILY PHILLIP Administration Diphenhydramine HCl 25 mg 06/15/20 01:13 06/16/20 08:37 Diphenhydramine Hcl 50 Mg/Ml Vial IVPUSH 25 mg Q6H PRN Administration Itching Docusate Sodium 100 mg 06/16/20 09:00 Docusate Sodium 100 Mg Capsule PO BID PHILLIP Folic Acid 1 mg 06/15/20 09:00 06/16/20 08:35 Folic Acid 1 Mg Tablet PO 1 mg DAILY PHILLIP Administration Hydroxyurea 500 mg 06/14/20 21:00 06/16/20 08:35 Hydroxyurea 500 Mg Capsule PO 500 mg BID PHILLIP Administration Hydroxyzine HCl 50 mg 06/14/20 16:42 06/15/20 13:05 Hydroxyzine Hcl 25 Mg Tablet PO 50 mg QID PRN Administration anxiety Ceftriaxone Sodium 1 gm/ 50 mls @ 100 mls/hr 06/15/20 19:00 06/15/20 20:17 Sodium Chloride IV Infused Q24H PHILLIP Infusion Morphine Sulfate 2 mg 06/16/20 07:54 06/16/20 08:37 Morphine Sulfate 2 Mg/Ml Cartridge IVPUSH 2 mg Q4H PRN Administration Pain, Severe (Pain Scale 7-10) Nicotine 14 mg 06/14/20 16:45 06/15/20 08:54 Nicotine 14 Mg Patch.Td24 TRANSDERMA Not Given DAILY [facility] Nicotine Polacrilex 4 mg 06/15/20 09:07 06/15/20 23:59 Nicotine Polacrilex 2 Mg Gum BUCCAL 4 mg Q2H PRN Administration Nicotine Cravings Omeprazole 40 mg 06/15/20 06:30 06/16/20 06:36 Omeprazole 20 Mg Capsule.Dr PO 40 mg DAILY@0630 PHILLIP Administration Ondansetron HCl 4 mg 06/14/20 16:42 06/14/20 17:50 Ondansetron Hcl 4 Mg/2 Ml Vial IVPUSH 4 mg Q8H PRN Administration Nausea and Vomiting Oxycodone HCl 7.5 mg 06/14/20 19:12 06/15/20 13:03 Oxycodone Hcl Immed Release 5 Mg Tablet PO 7.5 mg Q4H PRN Administration Pain, Severe Senna 17.2 mg 06/16/20 08:45 Sennosides 8.6 Mg Tablet PO BEDTIME PHILLIP Sertraline HCl 50 mg 06/15/20 09:00 06/16/20 08:35 Sertraline Hcl 50 Mg Tablet PO 50 mg DAILY PHILLIP Administration Sodium Chloride 3 ml 06/15/20 00:00 06/16/20 00:17 0.9 % Sodium Chloride Flush 3 Ml Syringe IVFLUSH 3 ml QSHIFT PHILLIP Administration <NICO Serna - Last Filed: 06/16/20 09:22> Labs CBC & Chem 7: : 06/16/20 06:03 06/16/20 15:40 <NICO Serna - Last Filed: 06/16/20 09:22> Microbiology Microbiology Results: Microbiology 06/14/20 02:30 Blood - Venous Blood Culture - Preliminary No growth after 48 hours. 06/14/20 02:30 Blood - Venous Blood Culture - Preliminary No growth after 48 hours. 06/14/20 Unknown Urine clean catch - Clean Catch Midstream Urine Culture - Preliminary Gram negative roberta 06/14/20 03:15 Vaginal Trichomonas Preparation - Final <NICO Serna - Last Filed: 06/16/20 09:22> Assessment and Plan (1) Sickle cell anemia: Status: Acute <NICO Serna - Last Filed: 06/16/20 09:22> Assessment and Plan: This is a 50-year-old female with history of sickle cell disease, substance abuse who presents to the emergency department with headache found to be anemic, COVID-19 positive covid 19 pneumonia -supplemental o2 prn, frequently doesn't keep o2 on -iv dexamethasone day 3 Sickle cell anemia H/H with appropriate rise follow blood transfusion (2 U total) -Follow H/H -continue hydrea -pain control UTI -IV ceftriaxone day 3 -UCx growing gram neg rods -Follow BCx neg to date Thrombocytopenia Chronic. Platelets at baseline -follow CBC Substance abuse -seen by care team ?etoh use unclear, previous documentation indicates daily use, patient denies. there is no evidence of alcohol withdrawal at this time Mood continue sertraline Tobacco dependence -NRT gerd continue omeprazole dvt ppx - mechanical devices code status - full code Attending - Dr. Weber <NICO Serna - Last Filed: 06/16/20 09:22>
[2020-06-16] MEDS: Docusate Sodium 100 MG CAPSULE PO ×2 (10:45→21:13)
[2020-06-16] MEDS: Sennosides 8.6 MG TABLET 17.2 MG PO ×2 (10:45→21:12)
[2020-06-16] MEDS: Nicotine Polacrilex 2 MG GUM 4 MG BUCCAL (10:56)
[2020-06-16] MEDS: oxyCODONE HCl Immed Release 5 MG TABLET 7.5 MG PO (12:16)
[2020-06-16] MEDS: hydrOXYzine HCL 25 MG TABLET 50 MG PO ×2 (12:21→21:12)
--- NOTE | 2020-06-16 15:42 | PC.NURSE ---
Pt refuses to wear monitor.
[2020-06-16 16:49] LABS: Alanine Aminotransferase 47 U/L (0-31); Albumin Level 3.3 g/dL (3.5-5.0); Alkaline Phosphatase 157 U/L (39-117); Anion Gap 13 (12-20); Aspartate Amino Transferase 114 U/L (5-31); Bilirubin Direct 1.2 mg/dL (0.0-0.5); Bilirubin Total 2.3 mg/dL (0.0-1.0); Blood Urea Nitrogen 17 mg/dL (9-16); Calcium 8.2 mg/dL (8.4-10.2); Carbon Dioxide 17 mmol/L (22-29); Chloride 111 mmol/L (96-108); Creatinine Clr Calc Pharmacy 69.1; Estimated Glomerular Filt Rate > 60; Glucose Random 121 mg/dL (60-115); Potassium 5.2 mmol/L (3.3-5.1); Sodium 136 mmol/L (135-145); Total Protein 7.2 g/dL (6.5-8.0)
[2020-06-16] MEDS: cefTRIAXone sodium 1 GM in 0.9 % Sodium Chloride 50 ML IV (18:42)
[2020-06-17] VITALS (8 sets, daily range): BP systolic 102–119; BP diastolic 56–76; PULSE 57–81; RESP 17–22; TEMP 36–37.3; O2SAT 92–94
[2020-06-17] MEDS: Morphine Sulfate 2 MG/ML CARTRIDGE IVPUSH ×4 (01:50→18:37)
[2020-06-17] MEDS: Omeprazole 20 MG CAPSULE.DR 40 MG PO (06:13)
[2020-06-17] MEDS: oxyCODONE HCl Immed Release 5 MG TABLET 7.5 MG PO ×3 (06:15→20:03)
[2020-06-17] MEDS: diphenhydrAMINE HCL 50 MG/ML VIAL 25 MG IVPUSH ×3 (06:19→18:37)
--- NOTE | 2020-06-17 06:24 | PC.NURSE ---
pt medicated with morhpine 2mg iv x 2 (1st dose @ 2114 for sickle cell anemia pain 10/10 numeric scale with effect of reassessment to sleeping. ) 2nd dose of morphine 2mg iv given @ 0 for generalized sickle cell anemia general discomfort with reassessment of sleep/some effectiveness. upon review of emar administration, 2114 morphine administration scan not taken. attempts at retro-active administration for 2114 x 3 unsuccessful, nursing mendoza Bowman aware & present during 1 of 3 attempts at unsuccessful retroactive documentation.
[2020-06-17 07:21] LABS: Hematocrit 24.1 % (37-47); Hemoglobin 8.6 g/dl (12.0-16.0); Mean Corpuscular HGB Conc 35.7 g/dl (31.0-35.0); Mean Corpuscular Hemoglobin 34.3 pg (27.0-33.0); Platelet Count 117 X10*3/uL (160-400); Red Blood Count 2.51 X10*6/uL (4.20-5.50); Red Cell Distribution Width 18.3 % (11.0-16.0); White Blood Count 11.2 X10*3/uL (4.8-10.8)
[2020-06-17 08:14] LABS: NRBC Pct Auto 6.4 /100WBC (0.0-0.2); PLT ABN DIST 1
[2020-06-17] MEDS: Hydroxyurea 500 MG CAPSULE PO ×2 (09:32→20:06)
[2020-06-17] MEDS: Folic Acid 1 MG TABLET PO (09:32)
[2020-06-17] MEDS: Docusate Sodium 100 MG CAPSULE PO ×2 (09:32→20:02)
[2020-06-17] MEDS: Sertraline HCL 50 MG TABLET PO (09:32)
[2020-06-17] MEDS: dexAMETHasone sod phosphate 4 MG/ML VIAL 6 MG IVPUSH (09:32)
[2020-06-17] MEDS: 0.9 % Sodium Chloride Flush 3 ML SYRINGE IVFLUSH ×2 (09:33→16:31)
[2020-06-17] MEDS: Nicotine Polacrilex 2 MG GUM 4 MG BUCCAL ×2 (10:38→21:24)
[2020-06-17] MEDS: hydrOXYzine HCL 25 MG TABLET 50 MG PO ×2 (10:38→20:03)
--- NOTE | 2020-06-17 12:07 | HO.PM.IMPN ---
Subjective Subjective Date of Service: 06/17/20 <NICO Serna - Last Filed: 06/17/20 12:23> 06/17/20 <Kris Weber MD - Last Filed: 06/17/20 12:54> Interval History: follow up covid 19/sickle cell anemia seen and examined this am has been able to remain off supplemental o2 ongoing dry cough still reporting some pain <NICO Serna - Last Filed: 06/17/20 12:23> Review of Systems Review of Systems: Yes all other systems are reviewed and are negative <NICO Serna - Last Filed: 06/17/20 12:23> Constitutional Constitutional: Denies chills and Denies fever(s) <NICO Serna - Last Filed: 06/17/20 12:23> Respiratory Respiratory: Reports cough <NICO Serna - Last Filed: 06/17/20 12:23> Gastrointestinal Gastrointestinal: Denies abdominal pain <NICO Serna - Last Filed: 06/17/20 12:23> Physical Exam Vital Signs: Vital Signs: Last Vital Signs Temp 96.8 F 06/17/20 11:46 Pulse 81 06/17/20 11:46 Resp 18 06/17/20 11:46 BP 105/73 06/17/20 11:46 Pulse Ox 92 06/17/20 11:46 Body Mass Index 22.4 <NICO Serna - Last Filed: 06/17/20 12:23> Const: General: comfortable, alert, awake and Physically active; No no acute distress <NICO Serna - Last Filed: 06/17/20 12:23> Nutritional Appearance: thin <NICO Serna Last Filed: 06/17/20 12:23> Orientation/consciousness: patient oriented x3 <NICO Serna Last Filed: 06/17/20 12:23> HENMT: Head: Yes normocephalic and Yes atraumatic <NICO Serna Last Filed: 06/17/20 12:23> Eyes: Sclerae: sclerae normal <NICO Serna - Last Filed: 06/17/20 12:23> Chest: Chest palpation & inspection: normal inspection of the chest <NICO Serna Last Filed: 06/17/20 12:23> Resp: Effort & Inspection: normal respiratory effort and no respiratory distress <NICO Serna Last Filed: 06/17/20 12:23> Cardio: Rate: regular rate <NICO Serna Last Filed: 06/17/20 12:23> Rhythm: regular rhythm <NICO Serna Last Filed: 06/17/20 12:23> GI: Palpation (GI): Soft to palpation and nontender <NICO Serna Last Filed: 06/17/20 12:23> Neuro: General: patient oriented x3 <NICO Serna Last Filed: 06/17/20 12:23> Cranial nerves: Yes CN's II-XII intact bilaterally and Yes Bilaterally intact EOM present <NICO Serna Last Filed: 06/17/20 12:23> Objective Data Current Medications Generic Name Dose Route Start Last Admin Trade Name Freq PRN Reason Stop Dose Admin Acetaminophen 650 mg 06/14/20 16:42 Acetaminophen 325 Mg Tablet PO Q6H PRN Pain, Mild (Pain Scale 1-3) Dexamethasone Sodium Phosphate 6 mg 06/15/20 09:00 06/17/20 09:32 Dexamethasone Sod Phosphate 4 Mg/Ml Vial IVPUSH 6 mg DAILY PHILLIP Administration Diphenhydramine HCl 25 mg 06/15/20 01:13 06/17/20 06:19 Diphenhydramine Hcl 50 Mg/Ml Vial IVPUSH 25 mg Q6H PRN Administration Itching Docusate Sodium 100 mg 06/16/20 09:00 06/17/20 09:32 Docusate Sodium 100 Mg Capsule PO 100 mg BID PHILLIP Administration Folic Acid 1 mg 06/15/20 09:00 06/17/20 09:32 Folic Acid 1 Mg Tablet PO 1 mg DAILY PHILLIP Administration Guaifenesin 10 ml 06/16/20 09:15 Guaifenesin 200 Mg/10 Ml 10 Ml Liquid PO Q6H PRN Cough Hydroxyurea 500 mg 06/14/20 21:00 06/17/20 09:32 Hydroxyurea 500 Mg Capsule PO 500 mg BID PHILLIP Administration Hydroxyzine HCl 50 mg 06/14/20 16:42 06/17/20 10:38 Hydroxyzine Hcl 25 Mg Tablet PO 50 mg QID PRN Administration anxiety Ceftriaxone Sodium 1 gm/ 50 mls @ 100 mls/hr 06/15/20 19:00 06/16/20 19:38 Sodium Chloride IV Infused Q24H PHILLIP Infusion Morphine Sulfate 2 mg 06/17/20 07:12 Morphine Sulfate 2 Mg/Ml Cartridge IVPUSH Q6H PRN Pain, Severe (Pain Scale 7-10) Nicotine 14 mg 06/14/20 16:45 06/17/20 09:41 Nicotine 14 Mg Patch.Td24 TRANSDERMA Not Given DAILY [facility] Nicotine Polacrilex 4 mg 06/15/20 09:07 06/17/20 10:38 Nicotine Polacrilex 2 Mg Gum BUCCAL 4 mg Q2H PRN Administration Nicotine Cravings Omeprazole 40 mg 06/15/20 06:30 06/17/20 06:13 Omeprazole 20 Mg Capsule.Dr PO 40 mg DAILY@0630 PHILLIP Administration Ondansetron HCl 4 mg 06/14/20 16:42 06/14/20 17:50 Ondansetron Hcl 4 Mg/2 Ml Vial IVPUSH 4 mg Q8H PRN Administration Nausea and Vomiting Oxycodone HCl 7.5 mg 06/14/20 19:12 06/17/20 06:15 Oxycodone Hcl Immed Release 5 Mg Tablet PO 7.5 mg Q4H PRN Administration Pain, Severe Senna 17.2 mg 06/16/20 08:45 06/16/20 21:12 Sennosides 8.6 Mg Tablet PO 17.2 mg BEDTIME PHILLIP Administration Sertraline HCl 50 mg 06/15/20 09:00 06/17/20 09:32 Sertraline Hcl 50 Mg Tablet PO 50 mg DAILY PHILLIP Administration Sodium Chloride 3 ml 06/15/20 00:00 06/17/20 09:33 0.9 % Sodium Chloride Flush 3 Ml Syringe IVFLUSH 3 ml QSHIFT PHILLIP Administration <NICO Serna - Last Filed: 06/17/20 12:23> Labs CBC & Chem 7: : 06/17/20 06:22 06/16/20 15:40 <NICO Serna - Last Filed: 06/17/20 12:23> Microbiology Microbiology Results: Microbiology 06/14/20 Unknown Urine clean catch - Clean Catch Midstream Urine Culture - Final Escherichia coli 06/14/20 02:30 Blood - Venous Blood Culture - Preliminary No growth after 48 hours. 06/14/20 02:30 Blood - Venous Blood Culture - Preliminary No growth after 48 hours. 06/14/20 03:15 Vaginal Trichomonas Preparation - Final <NICO Serna - Last Filed: 06/17/20 12:23> Assessment and Plan (1) Sickle cell anemia: Status: Acute <NICO Serna - Last Filed: 06/17/20 12:23> Assessment and Plan: This is a 50-year-old female with history of sickle cell disease, substance abuse who presents to the emergency department with headache found to be anemic, COVID-19 positive covid 19 pneumonia. CTA showed no evidence of PE She was treated with IV dexamethasone daily and will be changed to PO upon discharge to complete 10 day course She was initially requiring supplemental oxygen but is now on room air. Sickle cell anemia H/H on admission was 6.5/17.7. She received 2 units of blood with appropriate rise in H/H. Her blood counts remained above her baseline. LFTs are trending down. -continue hydrea -pain control UTI UCx growing gram neg rods will change ceftriaxone to PO ceftin to complete 5 day course of abx BCx have remained neg Thrombocytopenia Chronic. Platelets at baseline Substance abuse She was seen in consultation by care team ?etoh use unclear, previous documentation indicates daily use, patient denies. there is no evidence of alcohol withdrawal at this time. She was monitored on [facility] and did require treatment. Mood continue sertraline Tobacco dependence -NRT gerd continue omeprazole disposition - Patient living in a rooming house, that her [employer] placed her in and she does not want to return there(she is the only woman there, drugs are being used there, filthy). she is phoning her [employer] now to discuss different housing options. anticipate home without service tomorrow dvt ppx - mechanical devices code status - full code Attending - Dr. Weber <NICO Serna - Last Filed: 06/17/20 12:23>
--- NOTE | 2020-06-17 12:23 | PM.DS ---
DS: Providers Provider Date of Service: 06/17/20 Date of admission: 06/14/20 16:42 Primary care physician: Unknown Physician Consults: 06/14/20 17:15 Consult to Care Team Routine Comment: Reason for consultation: substance abuse; ?etoh DS: Diagnosis Discharge Diagnosis (1) Pneumonia due to 2019 novel coronavirus: Status: Acute (2) Sickle cell anemia: Status: Acute (3) UTI (urinary tract infection): Status: Acute DS: Medications Discharge Medications Home Medications: Home Medications Medication Instructions Recorded Confirmed albuterol sulfate 2.5 mg INHALATION Q6H 12/05/19 06/14/20 hydroxyzine pamoate 50 mg PO QID PRN 12/05/19 06/14/20 omeprazole 40 mg PO DAILY 12/05/19 06/14/20 sertraline 50 mg PO DAILY 12/05/19 06/14/20 folic acid 1 mg PO DAILY 06/14/20 06/14/20 hydroxyurea 500 mg PO BID 06/14/20 06/14/20 oxycodone-acetaminophen 2 tab PO Q4H PRN 06/14/20 06/14/20 DS: Summary Hospital Course Hospital Course: This is a 50-year-old female with a history of sickle cell anemia who presented to the emergency department with complaints of pain. She reports headache as well as pain in her side. She reports subjective fever at home although she has not checked her temperature. She reports intermittent cough over the past 3 days but denies any shortness of breath. Workup in the emergency department revealed H/H of 6.5/17.7. Urinalysis was consistent with the UTI and she was started on ceftriaxone. She also tested positive for coronavirus. CTA was consistent with COVID-19. She initially required Venti mask but is currently on 3 L nasal cannula. She was given a dose of IV dexamethasone. She is unsure if she has had any positive covid contacts. covid 19 pneumonia. CTA showed no evidence of PE. She was treated with IV dexamethasone daily and will be changed to PO upon discharge to complete 10 day course. She was initially requiring supplemental oxygen but is now on room air and stable for discharge. Sickle cell anemia H/H on admission was 6.5/17.7. She was continued on home dose of hydrea. she was treated with IV narcotics for pain management. She received 2 units of blood with appropriate rise in H/H. Her blood counts have remained above her baseline. UTI UCx growing gram neg rods. There was no evidence of sepsis. She was initially treated with IV ceftriaxone which was changed to PO ceftin to complete 5 day course of abx. BCx have remained neg Cocaine use - Was seen by care team and given resources to maintain sobriety Time Spent with Patient Time attestation: Total time spent providing and/or coordinating discharge services: Discharge coordination time: Greater than 30 minutes Physical Exam Vital Signs: Vital Signs: Last Vital Signs Temp 96.8 F 06/17/20 11:46 Pulse 81 06/17/20 11:46 Resp 18 06/17/20 11:46 BP 105/73 06/17/20 11:46 Pulse Ox 92 06/17/20 11:46 Body Mass Index 22.4 Const: General: comfortable, alert, awake and Physically active; No no acute distress Nutritional Appearance: thin Orientation/consciousness: patient oriented x3 HENMT: Head: Yes normocephalic and Yes atraumatic Eyes: Sclerae: sclerae normal Chest: Chest palpation & inspection: normal inspection of the chest Resp: Effort & Inspection: normal respiratory effort and no respiratory distress Cardio: Rate: regular rate Rhythm: regular rhythm GI: Palpation (GI): Soft to palpation and nontender Neuro: General: patient oriented x3 Cranial nerves: Yes CN's II-XII intact bilaterally and Yes Bilaterally intact EOM present DS: Data Data Completed and Pending Completed studies during hospitalization [Text1]: Procedures Detoxification Services for Substance Abuse Treatment (12/05/19) Transfusion of Nonautologous Red Blood Cells into Peripheral Vein, Percutaneous Approach (03/06/20) Labs on day of discharge: Laboratory Results - last 24 hr 06/16/20 06/17/20 15:40 06:22 WBC 11.2 H RBC 2.51 L Hgb 8.6 L Hct 24.1 L MCV 96.0 MCH 34.3 H MCHC 35.7 H RDW 18.3 H Plt Count 117 L MPV Not Reportable Absolute Nucleated RBC 0.710 H Nucleated RBC % (auto) 6.4 H Sodium 136 Potassium 5.2 H Chloride 111 H Carbon Dioxide 17 L Anion Gap 13 BUN 17 H Creatinine 0.85 Estim Creat Clear Calc 69.1 Estimated GFR > 60 Random Glucose 121 H Calcium 8.2 L Total Bilirubin 2.3 H Direct Bilirubin 1.2 H AST 114 H ALT 47 H Alkaline Phosphatase 157 H Total Protein 7.2 Albumin 3.3 L Preliminary micro results at discharge 06/14/20 02:30 Blood Culture - Preliminary Blood - Venous No growth after 48 hours. 06/14/20 02:30 Blood Culture - Preliminary Blood - Venous No growth after 48 hours. Discharge Plan Discharge Patient Disposition: Home, Self-Care Discharge Diagnosis: COVID 19, UTI, sickle cell anemia Referrals: Physician,Unknown [Primary Care Provider] - 1 Week Discharge Medications: New dexamethasone 6 mg tablet 6 mg PO DAILY Qty: 5 RF: 0 cefuroxime axetil 250 mg Tablet 250 mg PO Q12H Qty: 5 RF: 0 Continued albuterol sulfate 2.5 mg /3 mL (0.083 %) solution for nebulization 2.5 mg inhalation Q6H RF: 0 sertraline 25 mg tablet 50 mg PO DAILY RF: 0 omeprazole 20 mg capsule,delayed release(DR/EC) 40 mg PO DAILY RF: 0 hydroxyzine pamoate 25 mg capsule 50 mg PO QID PRN (Reason: anxiety) RF: 0 folic acid 1 mg Tablet 1 mg PO DAILY RF: 0 hydroxyurea 500 mg Capsule 500 mg PO BID RF: 0 oxycodone-acetaminophen 7.5-325 mg tablet 2 tab PO Q4H PRN (Reason: Pain, Severe) RF: 0 Diet: advance to usual diet Activity on Discharge: As tolerated Stand Alone Forms: Patient Portal Discharge page Care Plan Goals: See below Health Concerns: Cocaine use - seen by care team and given resources to maintan sobriety
--- NOTE | 2020-06-17 13:00 | MHC.CM.PN ---
DECLAN spoke with Patient regarding DC planning. Patient continue to refuse to return to the boarding house where she was living. Patient has a [employer]-John at personal cell- [phone]. John works for [employer] [place] [employer] [place] ([phone]- [employer]).DECLAN spoke with John, who politely indicated that she is not working today and that there are no other housing options for Patient and that she does not have the resources to locate new housing for the Patient.DECLAN has relayed this information to Rafy/Daisy.
[2020-06-17] MEDS: Sennosides 8.6 MG TABLET 17.2 MG PO (20:05)
[2020-06-18] VITALS: BP 106/59; PULSE 55; RESP 18; TEMP 36.9; O2SAT 92
[2020-06-18] MEDS: Morphine Sulfate 2 MG/ML CARTRIDGE IVPUSH ×2 (00:48→06:44)
[2020-06-18] MEDS: 0.9 % Sodium Chloride Flush 3 ML SYRINGE IVFLUSH ×2 (00:48→08:39)
[2020-06-18] MEDS: diphenhydrAMINE HCL 50 MG/ML VIAL 25 MG IVPUSH ×2 (00:48→06:51)
[2020-06-18 04:00] VITALS: BP 104/62; PULSE 62; RESP 20; TEMP 36.8; O2SAT 94
[2020-06-18] MEDS: oxyCODONE HCl Immed Release 5 MG TABLET 7.5 MG PO (04:50)
[2020-06-18] MEDS: Omeprazole 20 MG CAPSULE.DR 40 MG PO (06:40)
[2020-06-18 07:33] VITALS: TEMP 36.6
[2020-06-18] MEDS: dexAMETHasone sod phosphate 4 MG/ML VIAL 6 MG IVPUSH (08:39)
[2020-06-18] MEDS: Hydroxyurea 500 MG CAPSULE PO (08:39)
[2020-06-18] MEDS: Docusate Sodium 100 MG CAPSULE PO (08:39)
[2020-06-18] MEDS: Folic Acid 1 MG TABLET PO (08:39)
[2020-06-18] MEDS: Sertraline HCL 50 MG TABLET PO (08:39)
[2020-06-18] MEDS: Nicotine Polacrilex 2 MG GUM 4 MG BUCCAL (08:46)
[2020-06-18 10:56] VITALS: BP 114/67; PULSE 75; RESP 18; TEMP 36.5; O2SAT 93
--- NOTE | 2020-06-18 11:57 | PM.DS ---
DS: Providers Provider Date of Service: 06/18/20 Date of admission: 06/14/20 16:42 Date of discharge: 06/18/20 Primary care physician: Unknown Physician Admitting clinician: Daisy Dempsey Attending physician on admission: Ry Luna Consults: 06/14/20 17:15 Consult to Care Team Routine Comment: Reason for consultation: substance abuse; ?etoh Attending physician on discharge: Lj Mcgregor Discharging clinician: Kiki Mendoza DS: Diagnosis Discharge Diagnosis (1) Pneumonia due to 2019 novel coronavirus: Status: Acute (2) Sickle cell anemia: Status: Acute (3) UTI (urinary tract infection): Status: Acute DS: Medications Discharge Medications Home Medications: Home Medications Medication Instructions Recorded Confirmed albuterol sulfate 2.5 mg INHALATION Q6H 12/05/19 06/14/20 hydroxyzine pamoate 50 mg PO QID PRN 12/05/19 06/14/20 omeprazole 40 mg PO DAILY 12/05/19 06/14/20 sertraline 50 mg PO DAILY 12/05/19 06/14/20 folic acid 1 mg PO DAILY 06/14/20 06/14/20 hydroxyurea 500 mg PO BID 06/14/20 06/14/20 oxycodone-acetaminophen 2 tab PO Q4H PRN 06/14/20 06/14/20 Previous Rx's Medication Instructions Recorded cefuroxime axetil 250 mg PO Q12H #5 tab 06/17/20 dexamethasone 6 mg PO DAILY #5 tab 06/17/20 DS: Summary Hospital Course Hospital Course: HP as per admitting provider This is a 50-year-old female with a history of sickle cell anemia who presented to the emergency department with complaints of pain. She reports headache as well as pain in her side. She reports subjective fever at home although she has not checked her temperature. She reports intermittent cough over the past 3 days but denies any shortness of breath. Workup in the emergency department revealed H/H of 6.5/17.7. Urinalysis was consistent with the UTI and she was started on ceftriaxone. She also tested positive for coronavirus. CTA was consistent with COVID-19. She initially required Venti mask but is currently on 3 L nasal cannula. She was given a dose of IV dexamethasone. She is unsure if she has had any positive covid contacts. Covid 19 pneumonia. CTA showed no evidence of PE. She was treated with IV dexamethasone daily and will be changed to PO upon discharge to complete 10 day course. She was initially requiring supplemental oxygen but is now on room air and stable for discharge. Sickle cell anemia. H/H on admission was 6.5/17.7. She was continued on home dose of hydrea. she was treated with IV narcotics for pain management. She received 2 units of blood with appropriate rise in H/H. Her blood counts have remained above her baseline. UTI. UCx growing gram neg rods. There was no evidence of sepsis. She was initially treated with IV ceftriaxone which was changed to PO ceftin to complete 5 day course of abx. BCx have remained neg Cocaine use - Was seen by care team and given resources to maintain sobriety Time Spent with Patient Time attestation: Total time spent providing and/or coordinating discharge services: Discharge coordination time: Greater than 30 minutes Physical Exam Vital Signs: Vital Signs: Last Vital Signs Temp 97.7 F 06/18/20 10:56 Pulse 75 06/18/20 10:56 Resp 18 06/18/20 10:56 BP 114/67 06/18/20 10:56 Pulse Ox 93 06/18/20 10:56 Body Mass Index 22.4 DS: Data Data Completed and Pending Completed studies during hospitalization [Text1]: Procedures Detoxification Services for Substance Abuse Treatment (12/05/19) Transfusion of Nonautologous Red Blood Cells into Peripheral Vein, Percutaneous Approach (03/06/20) Labs on day of discharge: Preliminary micro results at discharge 06/14/20 02:30 Blood Culture - Preliminary Blood - Venous No growth after 48 hours. 06/14/20 02:30 Blood Culture - Preliminary Blood - Venous No growth after 48 hours. Discharge Plan Discharge Anticipated Discharge Date/Time: 06/18/20 11:54 Patient Disposition: Home, Self-Care Discharge Diagnosis: COVID 19, UTI, sickle cell anemia Referrals: Physician,Unknown [Primary Care Provider] - 1 Week Discharge Medications: New cefuroxime axetil 250 mg Tablet 250 mg PO Q12H Qty: 5 RF: 0 dexamethasone 6 mg tablet 6 mg PO DAILY Qty: 5 RF: 0 Continued albuterol sulfate 2.5 mg /3 mL (0.083 %) solution for nebulization 2.5 mg inhalation Q6H RF: 0 sertraline 25 mg tablet 50 mg PO DAILY RF: 0 omeprazole 20 mg capsule,delayed release(DR/EC) 40 mg PO DAILY RF: 0 hydroxyzine pamoate 25 mg capsule 50 mg PO QID PRN (Reason: anxiety) RF: 0 folic acid 1 mg Tablet 1 mg PO DAILY RF: 0 hydroxyurea 500 mg Capsule 500 mg PO BID RF: 0 oxycodone-acetaminophen 7.5-325 mg tablet 2 tab PO Q4H PRN (Reason: Pain, Severe) RF: 0 Discharge Orders: Discharge Order (Routine); Ordered 06/18/20 Ordered By: Kiki Mendoza Diet: advance to usual diet Activity on Discharge: As tolerated Stand Alone Forms: Patient Portal Discharge page Care Plan Goals: See below Health Concerns: substance abuse COVID 19 sickle cell anemia with pain UTI Plan of Treatment: substance abuse - recommend complete abstinence from cocaine and other substances sickle cell anemia with pain. Anemia has improved. Continue home dose of pain medication. Call to schedule a follow up appointment UTI. Complete course of antibiotics. COVID 19 - You tested positive on 06/14. Please follow CDC guidelines for self isolation CDC Guidelines for home isolation: - Stay away from others - Limit contact with pets and animals: If you must care for a pet, wash your hands before and after interacting with them - Wear a mask if you are sick - Cover your mouth and nose with a tissue when you cough or sneeze. Dispose of tissues in a lined trash can and wash your hands immediately with soap and water for at least 20 seconds. If soap and water are not available, clean hands with alcohol-based hand moving picture operator that contains at least 60% alcohol. - Clean your hands often with soap and water for at least 20 seconds - Avoid touching your eyes, nose and mouth with unwashed hands - Do not share dishes, drinking glasses, cups, eating utensils, towels, or bedding with other people in your home. After using these items, wash them thoroughly with soap and water or put in the aircraft systems technician. - Clean high-touch surfaces in your isolation area (???sick room??? and bathroom) every day; let a caregiver clean and disinfect high-touch surfaces in other areas of the home. Clean the area or item with soap and water or another detergent if it is dirty. Then, use a household disinfectant. Seek medical attention, but call first: - Seek medical care right away if your illness is worsening (for example, if you have difficulty breathing). - Call your doctor before going in: Before going to the doctor???s office or emergency room, call ahead and tell them your symptoms. They will tell you what to do. - If possible, put on a facemask before you enter the building. If you can't put on a facemask, try to keep a safe distance from other people (at least 6 feet away). This will help protect the people in the office or waiting room. - Follow care instructions from your healthcare provider and local health department: Your local health authorities will give instructions on checking your symptoms and reporting information. Emergency warning signs for COVID-19: - Difficulty breathing or shortness of breath - Persistent pain or pressure in the chest - New confusion or inability to arouse - Bluish lips or face Assessment: See discharge summary
--- NOTE | 2020-06-18 13:17 | MHC.CM.PN ---
patient discharged and ride was here to pick her up so she left prior to CM seeing patient.
== END 2020-06-18 12:29 | disposition home or self-care (01) | DRG 177 ==
LOC: HO.ED 06-14 06:10 → HO.EDOVER 06-14 16:56 → HO.IMC 06-14 17:57
PROVIDERS: Physician Assistant Medical; Admitting Provider Student in an Organized Health Care Education/Training Program; Emergency Provider Emergency Medicine Emergency Medical Services; Visit Provider Family Medicine
DX: U07.1 COVID-19 (principal); J12.89 Other viral pneumonia; N39.0 Urinary tract infection, site not specified; D69.6 Thrombocytopenia, unspecified; F31.9 Bipolar disorder, unspecified; D57.1 Sickle-cell disease without crisis; F14.90 Cocaine use, unspecified, uncomplicated; K21.9 Gastro-esophageal reflux disease without esophagitis; F17.210 Nicotine dependence, cigarettes, uncomplicated; Z71.6 Tobacco abuse counseling; Z79.899 Other long term (current) drug therapy
CPT/HCPCS: 36415; 71045; 71275; 80048; 80053; 80076; 80307; 80320; 81001; 81003; 83605; 83690; 84484; 85025; 85027; 85045; 86850; 86900; 86902; 86920; 86922; 87040; 87086; 87088; 87186; 87480; 87491; 87510; 87591; 87635; 87660; 93005; 96365; 96375; 99285; 99291; J0696; J1100; J1170; J1200; J2270; J2405; J2765; P9016; Q0163; Q9967

== ENCOUNTER 2020-06-25 18:45 | Inpatient (IN) | payer MEDICARE, SELFPAY ==
--- NOTE | ~2020-06-25 | XR_ITS ---
EXAMINATION: XR CHEST CLINICAL INFORMATION: Hypoxia COMPARISON: Previous chest x-rays most recent 06/28/2020 TECHNIQUE: Frontal view of the chest was obtained. FINDINGS: The cardiac and mediastinal contours are stable. There is a right jugular port with tip projecting over the SVC. There is evidence of increasing bilateral airspace disease probably representing pneumonia. There is no pleural effusion or pneumothorax. Bony structures are unremarkable. There is a right upper extremity line with tip projecting over the right axilla. This is unchanged. XR/XR chest 1V IMPRESSION: Increasing bilateral airspace disease probably representing pneumonia.
--- NOTE | ~2020-06-25 | XR_ITS ---
EXAMINATION: XR CHEST CLINICAL INFORMATION: Right PICC line insertion. COMPARISON: Chest 06/25/2020 TECHNIQUE: Frontal view of the chest was obtained. FINDINGS: There is diffuse groundglass infiltrates present throughout both lungs. Heart size and pulmonary vascularity is normal. There is right central venous port with its tip in the proximal SVC. There is a new right PICC line placement its tip in the axillary vein. This can be used for IV antibiotics. No gross bony abnormality. XR/XR chest 1V IMPRESSION: Diffuse groundglass infiltrates suggestive of Covid/Viral pneumonia. No change in right central venous catheter. New right PICC line tip is in the axillary vein. It can be useful for antibiotics.
--- NOTE | ~2020-06-25 | CT_ITS ---
EXAMINATION: CTA CHEST PE STUDY CLINICAL INFORMATION: hypoxia COMPARISON: 06/26/2020 CT TECHNIQUE: Prior to contrast administration, noncontrast localization images were obtained. After the administration of 70 mL of Omnipaque 350 IV contrast, contiguous thin slice helical images were obtained through the thorax. Reformatted MIP images in the coronal and sagittal planes were obtained at the acquisition workstation. This CT examination was performed using dose optimization techniques as appropriate, variously including the following: *Automated exposure control *Adjustment of mA and/or kV according to patient size (this includes techniques or standardized protocols for targeted exams where dose is matched to indication/reason for exam; i.e. extremities or head) *Use of iterative reconstruction technique DLP: 272 mGy-cm. FINDINGS: The bolus timing on this study was acceptable for visualization of the pulmonary arterial tree. There are no intraluminal pulmonary arterial filling defects present to suggest central pulmonary embolism. The distal branch vessels are less well seen due to underlying motion artifact but no definitive filling defects seen. Diffuse groundglass opacification again seen bilaterally more diffuse than when compared to the 06/26/2020 study. I do not appreciate any dense consolidation. No abnormal pulmonary nodules or masses are appreciated. No significant hilar or mediastinal adenopathy. There is no evidence of pleural effusion or pneumothorax. The heart is normal in size. No evidence of ventricular septal bowing or right heart strain. Great vessels are normal. Right-sided chest port in place with tip near the cavoatrial junction. Otherwise the mediastinum is unremarkable. There is no pericardial effusion or pericardial thickening. Limited evaluation of the upper abdominal viscera demonstrates calcified shrunken spleen likely representing sequela of chronic infarction in the setting of underlying sickle cell disease. CT/CT angio chest PE protocol IMPRESSION: No evidence for central pulmonary emboli. Distal branch vessels are partially obscured by motion artifact. Diffuse bilateral groundglass airspace disease more diffuse when compared to the 06/26/2020 study. VTE: Negative
--- NOTE | ~2020-06-25 | XR_ITS ---
EXAMINATION: XR CHEST CLINICAL INFORMATION: Covid pneumonia COMPARISON: 06/15/2019 TECHNIQUE: Frontal view of the chest was obtained. FINDINGS: Patchy bilateral opacities are again seen, slightly worse in the left midlung and left base. Lungs appear more hypoinflated than previously noted. No pleural effusions. There is mild cardiac enlargement. XR/XR chest 1V IMPRESSION: Bilateral patchy airspace disease, slightly worse on the left.
--- NOTE | ~2020-06-25 | XR_ITS ---
EXAMINATION: XR CHEST CLINICAL INFORMATION: Pneumonia COMPARISON: June 27, 2020 and CTA of June 25, 2020 TECHNIQUE: AP portable view of the chest was obtained. FINDINGS: There is again noted to be diffuse interstitial and airspace disease bilaterally. No pneumothorax or significant pleural effusion is appreciated. Heart normal size. Right internal jugular port catheter seen in place with tip at the caval atrial junction. Wire is seen overlying the mid chest which is likely external. Right upper extremity midline catheter is seen with tip at the location of the junctions right basilic and subclavian veins. XR/XR chest 1V IMPRESSION: No change in diffuse bilateral disease as described.
--- NOTE | ~2020-06-25 | CT_ITS ---
EXAMINATION: CT ANGIOGRAM OF THE CHEST WITH AND WITHOUT CONTRAST (CT PULMONARY ANGIOGRAM FOR PE) CLINICAL INFORMATION: Reason for Exam post covid , sob COMPARISON: None TECHNIQUE: Prior to contrast administration, noncontrast localization images were obtained. Subsequently, multidetector volumetric imaging was performed from the thoracic inlet to below the diaphragms following the administration of 65 mL Omnipaque 350 intravenous contrast. No contrast reaction reported Sagittal, coronal, and MIP oblique sagittal reformatted images were obtained on the CT workstation, uploaded to PACS, and reviewed. This CT examination was performed using dose optimization techniques as appropriate, variously including the following: *Automated exposure control *Adjustment of mA and/or kV according to patient size (this includes techniques or standardized protocols for targeted exams where dose is matched to indication/reason for exam; i.e. extremities or head) *Use of iterative reconstruction technique Total exam dose-length product 272 mGy-cm FINDINGS: QUALITY OF STUDY/CONTRAST BOLUS: Satisfactory. PULMONARY ARTERIES: No central or segmental pulmonary emboli. THORACIC AORTA: No aneurysm or dissection. LUNG: Diffuse multifocal groundglass infiltrates are present throughout the lungs which appears significantly more extensive than on 06/14/2020. Findings are fairly characteristic of Covid 19. PLEURA: No pleural effusion or pneumothorax. MEDIASTINUM: The heart is enlarged. No pericardial effusion. No hilar or mediastinal lymphadenopathy. No evidence of septal bowing or right heart strain. CHEST WALL/AXILLA: No axillary or internal mammary lymphadenopathy. OSSEOUS STRUCTURES: No acute or suspicious osseous abnormality. UPPER ABDOMEN: Unremarkable. No reflux of contrast into the hepatic veins to suggest elevated right heart pressures. CT/CT angio chest PE protocol IMPRESSION: 1. No evidence of pulmonary emboli 2. Cardiomegaly 3. Commonly reported imaging features of Covid 19 or viral pneumonia are present with multifocal groundglass infiltrates. Other processes such as influenza pneumonia or organizing pneumonia, as can be seen with drug toxicity and connective tissue disease, can cause a similar imaging pattern. VTE: negative
[2020-06-25 19:03] VITALS: BP 100/58; PULSE 96; RESP 16; O2SAT 88; BMI 20.5
--- NOTE | 2020-06-25 19:29 | ED.GENADULT ---
HPI - General Adult General Chief complaint: General Medical Stated complaint: sickle cell Time Seen by Provider: 06/25/20 19:29 Source: patient Mode of arrival: ambulatory Limitations: no limitations History of Present Illness HPI narrative: Patient with history of sickle cell anemia diagnosed with COVID on 06/14 comes here for fever not feeling good cough shortness of breath for last few days on arrival patient temperature was 103.1 degrees. Saturating 92% on 3 L of oxygen via nasal cannula complain of generalized body pain with shortness of breath patient was admitted here on with COVID 19 pneumonia, UTI treated with Rocephin and IV Decadron discharged on Ceftin p.o. Decadron for 5 days till 06/23/2020 Related Data Home Medications Medication Instructions Recorded Confirmed albuterol sulfate 2.5 mg INHALATION Q6H 12/05/19 06/14/20 hydroxyzine pamoate 50 mg PO QID PRN 12/05/19 06/14/20 omeprazole 40 mg PO DAILY 12/05/19 06/14/20 sertraline 50 mg PO DAILY 12/05/19 06/14/20 folic acid 1 mg PO DAILY 06/14/20 06/14/20 hydroxyurea 500 mg PO BID 06/14/20 06/14/20 oxycodone-acetaminophen 2 tab PO Q4H PRN 06/14/20 06/14/20 Previous Rx's Medication Instructions Recorded cefuroxime axetil 250 mg PO Q12H #5 tab 06/17/20 dexamethasone 6 mg PO DAILY #5 tab 06/17/20 Allergies Allergy/AdvReac Type Severity Reaction Status Date / Time prochlorperazine Allergy Severe ANAPHYLAXIS Verified 05/10/20 01:39 [From COMPAZINE] Review of Systems Review of Systems: Constitutional : No Weight loss, + Fever, No Chills ENT/Mouth : No sore throat, No Rhinorrhea Eyes: No Eye Pain, No Swelling Cardiovascular : No Chest Pain, no palpitations Respiratory : ++ Cough, No Sputum, +shortness of breath Gastrointestinal : no Nausea, No Vomiting, No Diarrhea, No abdominal Pain, no black stools Genitourinary : No Dysuria, No Urinary Frequency Musculoskeletal : No joint pain, No Myalgias, No Joint Swelling Skin : No Skin Lesions, No rash Neuro : No Weakness, No Numbness, No Dizziness, No Headache Psych : No Anxiety/Panic, No Depression Heme/Lymph: No Bruising, No Lymphadenopathy Endocrine : No Polyuria, No Polydipsia All other systems reviewed and are negative [facility] Past Medical History Medical History Bipolar 1 disorder Cocaine abuse GERD (gastroesophageal reflux disease) PTSD (post-traumatic stress disorder) Sickle cell anemia Surgical History Hx of cholecystectomy Family History Family History Other Diabetes Social History Social History Household Members: None Housing: Apartment Alcohol intake: current Alcohol intake frequency: a few times a week Alcohol type: beer Smoking Status: Current every day smoker Tobacco Type: Cigarette Packs Per Day: 0.5 Second Hand Smoke Exposure: Yes Substance Use Type: Crack/Cocaine Advance Directives: No Advance Directives Information Provided: Yes Patient : No service: No Current occupational status: disabled Physical Exam Vital Signs: Vital Signs: Last Vital Signs Temp 100.3 F 06/25/20 21:11 Pulse 90 06/25/20 21:11 Resp 16 06/25/20 22:19 BP 91/68 06/25/20 19:45 Pulse Ox 92 06/25/20 19:45 Oxygen Flow Rate 2 06/25/20 19:03 Body Mass Index 20.5 Appearance: Alert. Oriented X3. In moderate distress. Febrile Eyes: PERRLA, No Nystagmus ENT: Pharynx normal. Oral Mucosa moist icterus Neck: Normal inspection. Neck supple. CVS: Normal heart rate and rhythm. Pulses normal. Respiratory: No respiratory distress. Equal air entry bilateral, no wheezing/rales/rhonchi Abdomen: Soft and nontender. Bowel sounds are present, no mass palpable, no CVA tenderness Skin: Skin warm and dry. Normal skin color. Normal skin turgor. Extremities: No lower extremity edema. No calf tenderness Neuro: Oriented X 3. No motor deficit. No sensory deficit.No cerebellar signs , cranial nerves II-XII intact Procedures EJ/Peripheral Line Neck R: Time Out Performed: Yes Skin Cleansed in Sterile Fashion: Yes Size (gauge): 20 IV Secured and Dressing Applied: Yes Patient Tolerated Procedure: well Medical Decision Making MDM Narrative Medical decision making narrative: Patient with sickle cell anemia COVID pneumonia with hypoxia febrile on arrival had UTI during last admission CT chest negative for PE will start her on Zosyn IV Decadron Lab Data Lab results reviewed: Yes I reviewed the patient's lab results. Result diagrams: 06/25/20 19:58 06/25/20 19:58 Labs: Lab Results 06/25/20 06/25/20 06/25/20 Range/Units 19:58 19:58 19:58 WBC 12.8 H (4.8-10.8) X10*3/uL RBC 2.29 L (4.20-5.50) X10*6/uL Hgb 7.8 L (12.0-16.0) g/dl Hct 21.8 L (37-47) % MCV 95.2 (80-98) fL MCH 34.1 H (27.0-33.0) pg MCHC 35.8 H (31.0-35.0) g/dl RDW 18.7 H (11.0-16.0) % Plt Count 173 D (160-400) X10*3/uL MPV 11.8 (9.4-12.3) fL Immature Gran % (Auto) Cancelled Neut % (Auto) Cancelled Lymph % (Auto) Cancelled [place] % (Auto) Cancelled Eos % (Auto) Cancelled Baso % (Auto) Cancelled Lymph # (Auto) Cancelled [place] # (Auto) Cancelled Eos # (Auto) Cancelled Baso # (Auto) Cancelled Abs Immat Gran (auto) Cancelled Absolute Neuts (auto) Cancelled Absolute Nucleated RBC 0.890 H (0.0-0.012) X10*3/uL Nucleated RBC % (auto) 6.9 H (0.0-0.2) /100WBC Neutrophils % (Manual) 65 (45-73) % Band Neutrophils % 4 (3-5) % Lymphocytes % (Manual) 24 (20-40) % Monocytes % (Manual) 7 (2-11) % Abs Neuts (Manual) 8.8 H (2.2-7.9) X10*3/uL Lymphocytes # (Manual) 3.1 (0.6-4.8) X10*3/uL Monocytes # (Manual) 0.9 (0.0-1.2) X10*3/uL Nucleated RBCs 8 H (0-0) /100WBC Platelet Estimate NORMAL (NORMAL) Large Platelets PRESENT Giant Platelets PRESENT Plt Morphology Comment NOTED RBC Morphology NOTED Hypochromasia 1+ (5-14) /OIF Sickle Cells 2+ (3-5) /OIF Target Cells 1+ (5-14) /OIF Ovalocytes 1+ (5-14) /OIF Schistocytes 1+ (0-2) /OIF Absolute Retic 0.225 H (0.026-0.095) X10*6/uL Percent Retic 9.8 H (0.5-1.8) % Immature Retic Fraction 14.1 (3.0-15.9) % Retic Hgb Equivalent 29.5 L (30.0-35.0) pg PT Cancelled INR Cancelled APTT Cancelled VBG pH (7.32-7.43) VBG pCO2 mmHg VBG pO2 mmHg VBG HCO3 (22-26) mmol/L VBG O2 Saturation % VBG Base Excess mmol/L Sodium 133 L (135-145) mmol/L Potassium 4.6 (3.3-5.1) mmol/L Chloride 103 (96-108) mmol/L Carbon Dioxide 23 (22-29) mmol/L Anion Gap 12 (12-20) BUN 17 H (9-16) mg/dL Creatinine 0.99 (0.5-1.4) mg/dL Estim Creat Clear Calc 59.0 Estimated GFR 60 Random Glucose 86 (60-115) mg/dL Lactic Acid (0.5-2.0) mmol/L Calcium 7.8 L (8.4-10.2) mg/dL Total Bilirubin 2.7 H (0.0-1.0) mg/dL AST 102 H (5-31) U/L ALT 45 H (0-31) U/L Alkaline Phosphatase 167 H (39-117) U/L Troponin I High Sens (<3.5-17.0) ng/L Total Protein 7.0 (6.5-8.0) g/dL Albumin 3.2 L (3.5-5.0) g/dL COVID-19 ([facility]) (Negative) COVID-19 Clin Com 06/25/20 06/25/20 06/25/20 Range/Units 19:58 19:59 19:59 WBC (4.8-10.8) X10*3/uL RBC (4.20-5.50) X10*6/uL Hgb (12.0-16.0) g/dl Hct (37-47) % MCV (80-98) fL MCH (27.0-33.0) pg MCHC (31.0-35.0) g/dl RDW (11.0-16.0) % Plt Count (160-400) X10*3/uL MPV (9.4-12.3) fL Immature Gran % (Auto) Neut % (Auto) Lymph % (Auto) [place] % (Auto) Eos % (Auto) Baso % (Auto) Lymph # (Auto) [place] # (Auto) Eos # (Auto) Baso # (Auto) Abs Immat Gran (auto) Absolute Neuts (auto) Absolute Nucleated RBC (0.0-0.012) X10*3/uL Nucleated RBC % (auto) (0.0-0.2) /100WBC Neutrophils % (Manual) (45-73) % Band Neutrophils % (3-5) % Lymphocytes % (Manual) (20-40) % Monocytes % (Manual) (2-11) % Abs Neuts (Manual) (2.2-7.9) X10*3/uL Lymphocytes # (Manual) (0.6-4.8) X10*3/uL Monocytes # (Manual) (0.0-1.2) X10*3/uL Nucleated RBCs (0-0) /100WBC Platelet Estimate (NORMAL) Large Platelets Giant Platelets Plt Morphology Comment RBC Morphology Hypochromasia /OIF Sickle Cells /OIF Target Cells /OIF Ovalocytes /OIF Schistocytes /OIF Absolute Retic (0.026-0.095) X10*6/uL Percent Retic (0.5-1.8) % Immature Retic Fraction (3.0-15.9) % Retic Hgb Equivalent (30.0-35.0) pg PT INR APTT VBG pH (7.32-7.43) VBG pCO2 mmHg VBG pO2 mmHg VBG HCO3 (22-26) mmol/L VBG O2 Saturation % VBG Base Excess mmol/L Sodium (135-145) mmol/L Potassium (3.3-5.1) mmol/L Chloride (96-108) mmol/L Carbon Dioxide (22-29) mmol/L Anion Gap (12-20) BUN (9-16) mg/dL Creatinine (0.5-1.4) mg/dL Estim Creat Clear Calc Estimated GFR Random Glucose (60-115) mg/dL Lactic Acid 0.9 (0.5-2.0) mmol/L Calcium (8.4-10.2) mg/dL Total Bilirubin (0.0-1.0) mg/dL AST (5-31) U/L ALT (0-31) U/L Alkaline Phosphatase (39-117) U/L Troponin I High Sens < 3.5 (<3.5-17.0) ng/L Total Protein (6.5-8.0) g/dL Albumin (3.5-5.0) g/dL COVID-19 ([facility]) Positive A (Negative) COVID-19 Clin Com See Note 06/25/20 06/25/20 Range/Units 23:36 23:39 WBC (4.8-10.8) X10*3/uL RBC (4.20-5.50) X10*6/uL Hgb (12.0-16.0) g/dl Hct (37-47) % MCV (80-98) fL MCH (27.0-33.0) pg MCHC (31.0-35.0) g/dl RDW (11.0-16.0) % Plt Count (160-400) X10*3/uL MPV (9.4-12.3) fL Immature Gran % (Auto) Neut % (Auto) Lymph % (Auto) [place] % (Auto) Eos % (Auto) Baso % (Auto) Lymph # (Auto) [place] # (Auto) Eos # (Auto) Baso # (Auto) Abs Immat Gran (auto) Absolute Neuts (auto) Absolute Nucleated RBC (0.0-0.012) X10*3/uL Nucleated RBC % (auto) (0.0-0.2) /100WBC Neutrophils % (Manual) (45-73) % Band Neutrophils % (3-5) % Lymphocytes % (Manual) (20-40) % Monocytes % (Manual) (2-11) % Abs Neuts (Manual) (2.2-7.9) X10*3/uL Lymphocytes # (Manual) (0.6-4.8) X10*3/uL Monocytes # (Manual) (0.0-1.2) X10*3/uL Nucleated RBCs (0-0) /100WBC Platelet Estimate (NORMAL) Large Platelets Giant Platelets Plt Morphology Comment RBC Morphology Hypochromasia /OIF Sickle Cells /OIF Target Cells /OIF Ovalocytes /OIF Schistocytes /OIF Absolute Retic (0.026-0.095) X10*6/uL Percent Retic (0.5-1.8) % Immature Retic Fraction (3.0-15.9) % Retic Hgb Equivalent (30.0-35.0) pg PT 13.9 H INR 1.2 H APTT VBG pH 7.38 (7.32-7.43) VBG pCO2 33 mmHg VBG pO2 146 mmHg VBG HCO3 20 L (22-26) mmol/L VBG O2 Saturation 98.0 % VBG Base Excess -3.8 mmol/L Sodium (135-145) mmol/L Potassium (3.3-5.1) mmol/L Chloride (96-108) mmol/L Carbon Dioxide (22-29) mmol/L Anion Gap (12-20) BUN (9-16) mg/dL Creatinine (0.5-1.4) mg/dL Estim Creat Clear Calc Estimated GFR Random Glucose (60-115) mg/dL Lactic Acid (0.5-2.0) mmol/L Calcium (8.4-10.2) mg/dL Total Bilirubin (0.0-1.0) mg/dL AST (5-31) U/L ALT (0-31) U/L Alkaline Phosphatase (39-117) U/L Troponin I High Sens (<3.5-17.0) ng/L Total Protein (6.5-8.0) g/dL Albumin (3.5-5.0) g/dL COVID-19 ([facility]) (Negative) COVID-19 Clin Com Imaging Data CT scan - chest: Attestation: I personally reviewed and interpreted this imaging study as follows: Radiologist's impression: CT/CT angio chest PE protocol IMPRESSION: 1. No evidence of pulmonary emboli 2. Cardiomegaly 3. Commonly reported imaging features of Covid 19 or viral pneumonia are present with multifocal groundglass infiltrates. Other processes such as influenza pneumonia or organizing pneumonia, as can be seen with drug toxicity and connective tissue disease, can cause a similar imaging pattern. VTE: negative ECG Data Attestation: I personally reviewed and interpreted this ECG as follows: Interpretation: Normal sinus rhythm heart rate 87 beats per minute normal intervals normal axis no acute ST T wave changes impression no acute ischemia Discharge Plan Discharge Clinical Impression: Pneumonia due to 2019 novel coronavirus, Sickle cell anemia with crisis, Hypoxia Patient Disposition: Admitted As Inpatient
--- NOTE | 2020-06-25 19:41 | ECG_ITS ---
Test Reason : GENERAL MEDICAL Blood Pressure : / mmHG Vent. Rate : 087 BPM Atrial Rate : 087 BPM P-R Int : 126 ms QRS Dur : 088 ms QT Int : 372 ms P-R-T Axes : 064 023 046 degrees QTc Int : 447 ms Normal sinus rhythm Possible Left atrial enlargement Borderline ECG When compared with ECG of 13-JUN-2020 23:03, No significant change was found Referred By: Octavio Ibanez Electronically Signed By:STEPHAN DIAZ
[2020-06-25 19:45] VITALS: BP 91/68; PULSE 91; RESP 20; TEMP 39.5; O2SAT 92
[2020-06-25] MEDS: 0.9 % Sodium Chloride 1,000 ML 999 ML IVCONT ×2 (20:07→21:15)
[2020-06-25] MEDS: Acetaminophen 325 MG TABLET 650 MG PO (20:08)
[2020-06-25 20:12] LABS: Hematocrit 21.8 % (37-47); Hemoglobin 7.8 g/dl (12.0-16.0); Immature Retic Fraction 14.1 % (3.0-15.9); Mean Corpuscular HGB Conc 35.8 g/dl (31.0-35.0); Mean Corpuscular Hemoglobin 34.1 pg (27.0-33.0); Mean Corpuscular Volume 95.2 fL (80-98); Mean Platelet Volume 11.8 fL (9.4-12.3); Platelet Count 173 X10*3/uL (160-400); Red Blood Count 2.29 X10*6/uL (4.20-5.50); Red Cell Distribution Width 18.7 % (11.0-16.0); Retic HGB Equivalent 29.5 pg (30.0-35.0); Reticulocyte Percent 9.8 % (0.5-1.8); Reticulocytes Absolute 0.225 X10*6/uL (0.026-0.095)
[2020-06-25] MEDS: diphenhydrAMINE HCL 50 MG/ML VIAL 25 MG IVPUSH ×2 (20:12→23:53)
[2020-06-25 20:15] VITALS: RESP 15
[2020-06-25] MEDS: HYDROmorphone HCl 2 MG/ML VIAL IVPUSH (20:15)
[2020-06-25 20:16] LABS: NRBC Pct Auto 6.9 /100WBC (0.0-0.2); WBC ABN SCTR FOR CBC 1
[2020-06-25] MEDS: Piperacillin Sodium/Tazobactam 3.375 GM in 0.9 % Sodium Chloride 50 ML IV (20:19)
[2020-06-25 20:22] LABS: COVID-19 Test Positive (Negative)
[2020-06-25 20:25] LABS: Lactic Acid 0.9 mmol/L (0.5-2.0)
[2020-06-25 20:31] LABS: Alanine Aminotransferase 45 U/L (0-31); Albumin Level 3.2 g/dL (3.5-5.0); Alkaline Phosphatase 167 U/L (39-117); Anion Gap 12 (12-20); Aspartate Amino Transferase 102 U/L (5-31); Bilirubin Total 2.7 mg/dL (0.0-1.0); Blood Urea Nitrogen 17 mg/dL (9-16); Calcium 7.8 mg/dL (8.4-10.2); Carbon Dioxide 23 mmol/L (22-29); Chloride 103 mmol/L (96-108); Estimated Glomerular Filt Rate 60; Glucose Random 86 mg/dL (60-115); Potassium 4.6 mmol/L (3.3-5.1); Sodium 133 mmol/L (135-145)
[2020-06-25 20:39] LABS: Troponin-I High Sensitivity < 3.5 ng/L (<3.5-17.0)
[2020-06-25 21:10] LABS: Band Neutrophils Percent 4 % (3-5); Lymphocytes Percent Manual 24 % (20-40); Monocytes Percent Manual 7 % (2-11); Neutrophils Percent Manual 65 % (45-73); Nucleated Red Blood Cells 8 /100WBC (0-0); RBC Morphology NOTED
[2020-06-25 21:11] VITALS: PULSE 90; RESP 16; TEMP 37.9
[2020-06-25 21:11] LABS: Ovalocytes 1+ (5-14) /OIF; Schistocytes 1+ (0-2) /OIF; Sickle Cells 2+ (3-5) /OIF
[2020-06-25 21:12] LABS: Target Cells 1+ (5-14) /OIF
[2020-06-25 21:13] LABS: Hypochromasia 1+ (5-14) /OIF
[2020-06-25 21:16] LABS: Giant Platelet PRESENT; Large Platelet PRESENT; Platelet Estimate NORMAL (NORMAL); Platelet Morphology Comment NOTED
[2020-06-25 21:18] LABS: Lymphocytes Absolute Manual 3.1 X10*3/uL (0.6-4.8); Monocytes Absolute Manual 0.9 X10*3/uL (0.0-1.2); Neutrophils Absolute Manual 8.8 X10*3/uL (2.2-7.9); White Blood Count 12.8 X10*3/uL (4.8-10.8)
[2020-06-25] MEDS: LORazepam 2 MG/ML VIAL 1 MG IVPUSH (22:17)
[2020-06-25 22:19] VITALS: RESP 16
--- NOTE | 2020-06-25 23:18 | PC.NURSE ---
PT REMOVED EJ PLACED BY PROVIDER. UPON ENTERING PTS ROOM SHE HAD REMOVED O2, WAS DISORIENTED WITH SPO2 58%. 4L VIA NC SPO2 75%. PLACED ON NRB. PT TOO AGITATED FOR SUCCESSFUL PLACEMENT OF IV.
[2020-06-25 23:46] LABS: Venous Blood Gas Refer to POC result
[2020-06-25 23:46] LABS: VBG Base Excess -3.8 mmol/L; VBG HCO3 20 mmol/L (22-26); VBG pCO2 33 mmHg; VBG pH 7.38 (7.32-7.43); VBG pO2 146 mmHg
[2020-06-25 23:49] LABS: INTERNATIONAL NORM RATIO 1.2 (0.9-1.1); Prothrombin Time 13.9 SEC (10.8-13.0)
[2020-06-26] VITALS (9 sets, daily range): BP systolic 95–112; BP diastolic 49–64; PULSE 71–95; RESP 14–20; TEMP 36.1–37.6; O2SAT 86–100
[2020-06-26] MEDS: iohexoL 350 MG/ML 100 ML INFUS..BTL 65 ML IV (00:14)
[2020-06-26] MEDS: 0.9 % Sodium Chloride 1,000 ML 999 ML IVCONT (00:28)
[2020-06-26] MEDS: dexAMETHasone sod phosphate 4 MG/ML VIAL 6 MG IVPUSH (01:23)
--- NOTE | 2020-06-26 01:29 | PC.NURSE ---
pt non-compliant with care and constantly removing 02 mask (non-rebreather). pt sleeping in left lateral position, respirations even and unlabored. pt 02 sensor cuff on finger was coming lose and was replaced by this nurse. pt 02 sat currently 94% on 15L NRB
--- NOTE | 2020-06-26 02:14 | PC.NURSE ---
pt desat to 88% oxygen on 15L NRB. upon entering room pt had mask below nose. this nurse attempted to do med rec and patient was not cooperating. pt hospital gown and blanket was also saturated and patient requested to be changed but when this nurse attempted to assist patient in taking off gown, as to not rip out EJ IV, patient became very agitated and started cussing out this nurse as well as other staff that came to assist. NRB mask back on. call hernández in reach.
[2020-06-26] MEDS: Enoxaparin Sodium 40 MG/0.4 ML SYRINGE SUBCUT (04:54)
--- NOTE | 2020-06-26 05:00 | PC.NURSE ---
pt was incontinent of urine, bed linens changed and pt provided with warm blankets. call hernández in reach
[2020-06-26] MEDS: HYDROmorphone HCl 0.5 MG/0.5 ML SYRINGE IVPUSH ×5 (05:05→22:14)
--- NOTE | 2020-06-26 06:42 | PM.IMHP ---
History of Present Illness Date of Service: 06/26/20 Chief Complaint: shortness of breath This is a 50-year-old female with past medical history of sickle cell disease who presents to the hospital with complaints of shortness of breath. Of note Patient was admitted to the hospital with COVID-19 pneumonia and hypoxia and discharged on 06/18 after being managed with dexamethasone for COVID-19 pneumonia as well as PRBC transfusion for sickle cell anemia. Returns today complaining of cough, shortness of breath, and feeling pain all over her body for the past few days. She also reports a temperature fever and chills. on arrival to the ED patient was found to be hypoxic placed on 3 L of oxygen satting 92%. She is currently very somnolent after receiving Dilaudid, and Benadryl but responsive to verbal stimuli just can not stay up long enough to answer any questions. History is mostly obtained from ED physician and her nurse. Patient vitals significant for temperature of 103.1?, heart rate of 91, respiratory rate of 20, blood pressure of 91/68, satting 88% on 2 L of nasal cannula, she has no placed on non-rebreather because patient not tolerating nasal cannula keeps taking it off. Labs on arrival significant for WBC count of 12.8, hemoglobin of 7.8 that dropped from 8.6 on discharge on 06/17, will PT of 13.9, INR of 1.2, pH of 7.3, CO2 of 33, PO2 146, sodium of 133, potassium 4.6, calcium of 7.8, total bili of 2.7 which is around her level on discharge, AST of 102, ALT of 45, alk-phos of 167, trop negative, positive COVID-[address] angiogram shows no evidence of pulmonary emboli, commonly reported imaging features of COVID-19 or viral pneumonia with multifocal ground-glass infiltrates. Patient will be admitted for further management Review of Systems Review of Systems: Yes Unobtainable due to mental status PMFSH Medical History Bipolar 1 disorder Cocaine abuse GERD (gastroesophageal reflux disease) PTSD (post-traumatic stress disorder) Sickle cell anemia Family History Other Diabetes Surgical History Hx of cholecystectomy Social History Household Members: None Housing: Apartment Alcohol intake: current Alcohol intake frequency: a few times a week Alcohol type: beer Smoking Status: Current every day smoker Tobacco Type: Cigarette Packs Per Day: 0.5 Second Hand Smoke Exposure: Yes Substance Use Type: Crack/Cocaine Advance Directives: No Advance Directives Information Provided: Yes Patient : No service: No Current occupational status: disabled Meds Allergies Allergy/AdvReac Type Severity Reaction Status Date / Time prochlorperazine Allergy Severe ANAPHYLAXIS Verified 05/10/20 01:39 [From COMPAZINE] Active Medications: Current Medications Generic Name Dose Route Start Last Admin Trade Name Freq PRN Reason Stop Dose Admin Acetaminophen 650 mg 06/26/20 02:23 Acetaminophen 325 Mg Tablet PO Q6H PRN Pain, Mild (Pain Scale 1-3) Dexamethasone Sodium Phosphate 6 mg 06/26/20 09:00 Dexamethasone Sod Phosphate 4 Mg/Ml Vial IVPUSH DAILY PHILLIP Docusate Sodium 100 mg 06/26/20 02:23 Docusate Sodium 100 Mg Capsule PO DAILY PRN Constipation Enoxaparin Sodium 40 mg 06/26/20 04:00 06/26/20 04:54 Enoxaparin Sodium 40 Mg/0.4 Ml Syringe SUBCUT 40 mg Q24H PHILLIP Administration Hydromorphone HCl 0.5 mg 06/26/20 02:23 06/26/20 05:05 Hydromorphone Hcl 0.5 Mg/0.5 Ml Syringe IVPUSH 0.5 mg Q4H PRN Administration Pain, Severe (Pain Scale 7-10) Ondansetron HCl 4 mg 06/26/20 02:23 Ondansetron Hcl 4 Mg/2 Ml Vial IVPUSH Q8H PRN Nausea and Vomiting Oxycodone HCl 5 mg 06/26/20 02:23 Oxycodone Hcl Immed Release 5 Mg Tablet PO Q6H PRN Pain, Severe (Pain Scale 7-10) Sodium Chloride 3 ml 06/26/20 08:00 0.9 % Sodium Chloride Flush 3 Ml Syringe IVFLUSH QSHIFT [facility] Home Medications Medication Instructions Recorded Confirmed Last Taken Type oxycodone-acetaminophen 1 tab PO Q6-8H PRN 06/26/20 06/26/20 Unknown History Physical Exam Vital Signs and Narrative: Vital Signs: Last Vital Signs Temp 100.3 F 06/25/20 21:11 Pulse 88 06/26/20 01:32 Resp 14 06/26/20 05:05 BP 91/68 06/25/20 19:45 Pulse Ox 100 06/26/20 04:37 Oxygen Flow Rate 2 06/25/20 19:03 Body Mass Index 20.5 Const: Other: Patient of somnolent but agitated when woken and response to verbal and painful stimuli adjust as stay awake long enough to answer questions Eyes: General: appearance normal, both eyes and all related structures Resp: Other: Tachypneic, on non-rebreather Cardio: Rate: regular rate Rhythm: regular rhythm GI: Palpation (GI): Soft to palpation Auscultation: normal bowel sounds Skin: General skin exam: no rashes or lesions noted Neuro: Cognition (Neuro): normal cognition Extrem: General: Yes normal to inspection and Yes no pedal edema Results Labs CBC and Chem 7: 06/25/20 19:58 06/25/20 19:58 Labs: Laboratory Results - last 24 hr 06/25/20 06/25/20 06/25/20 19:58 19:58 19:58 MCV 95.2 MCH 34.1 H MCHC 35.8 H RDW 18.7 H Plt Count 173 D MPV 11.8 Immature Gran % (Auto) Cancelled Neut % (Auto) Cancelled Lymph % (Auto) Cancelled Lipscomb % (Auto) Cancelled Eos % (Auto) Cancelled Baso % (Auto) Cancelled Lymph # (Auto) Cancelled Lipscomb # (Auto) Cancelled Eos # (Auto) Cancelled Baso # (Auto) Cancelled Abs Immat Gran (auto) Cancelled Absolute Neuts (auto) Cancelled Absolute Nucleated RBC 0.890 H Nucleated RBC % (auto) 6.9 H Neutrophils % (Manual) 65 Band Neutrophils % 4 Lymphocytes % (Manual) 24 Monocytes % (Manual) 7 Abs Neuts (Manual) 8.8 H Lymphocytes # (Manual) 3.1 Monocytes # (Manual) 0.9 Nucleated RBCs 8 H Platelet Estimate NORMAL Large Platelets PRESENT Giant Platelets PRESENT Plt Morphology Comment NOTED RBC Morphology NOTED Hypochromasia 1+ (5-14) Sickle Cells 2+ (3-5) Target Cells 1+ (5-14) Ovalocytes 1+ (5-14) Schistocytes 1+ (0-2) Absolute Retic 0.225 H Percent Retic 9.8 H Immature Retic Fraction 14.1 Retic Hgb Equivalent 29.5 L PT Cancelled INR Cancelled APTT Cancelled VBG pH VBG pCO2 VBG pO2 VBG HCO3 VBG O2 Saturation VBG Base Excess Anion Gap 12 Estim Creat Clear Calc 59.0 Estimated GFR 60 Random Glucose 86 Lactic Acid Calcium 7.8 L Total Bilirubin 2.7 H AST 102 H ALT 45 H Alkaline Phosphatase 167 H Troponin I High Sens Total Protein 7.0 Albumin 3.2 L COVID-19 ([facility]) COVID-19 [employer] 06/25/20 06/25/20 06/25/20 19:58 19:59 19:59 MCV MCH MCHC RDW Plt Count MPV Immature Gran % (Auto) Neut % (Auto) Lymph % (Auto) Lipscomb % (Auto) Eos % (Auto) Baso % (Auto) Lymph # (Auto) Lipscomb # (Auto) Eos # (Auto) Baso # (Auto) Abs Immat Gran (auto) Absolute Neuts (auto) Absolute Nucleated RBC Nucleated RBC % (auto) Neutrophils % (Manual) Band Neutrophils % Lymphocytes % (Manual) Monocytes % (Manual) Abs Neuts (Manual) Lymphocytes # (Manual) Monocytes # (Manual) Nucleated RBCs Platelet Estimate Large Platelets Giant Platelets Plt Morphology Comment RBC Morphology Hypochromasia Sickle Cells Target Cells Ovalocytes Schistocytes Absolute Retic Percent Retic Immature Retic Fraction Retic Hgb Equivalent PT INR APTT VBG pH VBG pCO2 VBG pO2 VBG HCO3 VBG O2 Saturation VBG Base Excess Anion Gap Estim Creat Clear Calc Estimated GFR Random Glucose Lactic Acid 0.9 Calcium Total Bilirubin AST ALT Alkaline Phosphatase Troponin I High Sens < 3.5 Total Protein Albumin COVID-19 ([facility]) Positive A COVID-19 [employer] See Note 06/25/20 06/25/20 23:36 23:39 MCV MCH MCHC RDW Plt Count MPV Immature Gran % (Auto) Neut % (Auto) Lymph % (Auto) Lipscomb % (Auto) Eos % (Auto) Baso % (Auto) Lymph # (Auto) Lipscomb # (Auto) Eos # (Auto) Baso # (Auto) Abs Immat Gran (auto) Absolute Neuts (auto) Absolute Nucleated RBC Nucleated RBC % (auto) Neutrophils % (Manual) Band Neutrophils % Lymphocytes % (Manual) Monocytes % (Manual) Abs Neuts (Manual) Lymphocytes # (Manual) Monocytes # (Manual) Nucleated RBCs Platelet Estimate Large Platelets Giant Platelets Plt Morphology Comment RBC Morphology Hypochromasia Sickle Cells Target Cells Ovalocytes Schistocytes Absolute Retic Percent Retic Immature Retic Fraction Retic Hgb Equivalent PT 13.9 H INR 1.2 H APTT VBG pH 7.38 VBG pCO2 33 VBG pO2 146 VBG HCO3 20 L VBG O2 Saturation 98.0 VBG Base Excess -3.8 Anion Gap Estim Creat Clear Calc Estimated GFR Random Glucose Lactic Acid Calcium Total Bilirubin AST ALT Alkaline Phosphatase Troponin I High Sens Total Protein Albumin COVID-19 ([facility]) COVID-19 Clin Com Imaging Radiologist's Impressions: Impressions Chest X-Ray 06/25/20 19:41 IMPRESSION: Bilateral patchy airspace disease, slightly worse on the left. Chest CTA 06/25/20 22:11 IMPRESSION: 1. No evidence of pulmonary emboli 2. Cardiomegaly 3. Commonly reported imaging features of Covid 19 or viral pneumonia are present with multifocal groundglass infiltrates. Other processes such as influenza pneumonia or organizing pneumonia, as can be seen with drug toxicity and connective tissue disease, can cause a similar imaging pattern. VTE: negative Assessment and Plan (1) Pneumonia due to 2019 novel coronavirus: Status: Acute (2) Sickle cell anemia with crisis: Status: Acute (3) Acute respiratory failure with hypoxia: Status: Acute 50-year-old female with sickle cell disease and recently diagnosed pneumonia secondary to COVID-19 presents to the hospital with shortness of breath # acute hypoxic respiratory failure - most likely continues to be secondary to COVID-19 although on discharge on 06/17 patient was completely weaned off her oxygen and completed course of dexamethasone. He she was also sent home on dexamethasone vs acute chest syndrome - currently requiring 3 L of oxygen to maintain O2 above 90% - chest x-ray reveals typical findings of COVID pneumonia - COVID-19 PCR continues to be positive - at this time will obtain comprehensive viral panel, procalcitonin - continue O2 as required # pneumonia - will rule out other causes including bacterial and viral with comprehensive viral panel - chest CT shows typical he COVID-19 finding - at this time will start iv abx as pt may have superimposed infection - dexamethasone 6 mg daily - consult infectious disease - procalcitonin level - follow cultures # sickle cell crisis - hemoglobin above 7 with transfusion threshold below 7 - bili stable - pain control - IV fluids Dvt ppx: lovenox
[2020-06-26] MEDS: vancomycin HCL 750 MG in 0.9 % Sodium Chloride 250 ML 270 MG IV ×2 (08:25→19:32)
[2020-06-26] MEDS: 0.9 % Sodium Chloride Flush 3 ML SYRINGE IVFLUSH ×2 (08:25→19:32)
[2020-06-26] MEDS: Lactated Ringers 1,000 ML 80 ML IVCONT ×2 (08:31→23:45)
--- NOTE | 2020-06-26 08:51 | MHC.CM.PN ---
CM attempted to reach Patient by phone at her room phone @ [phone] and her cell- [phone], but was unable to speak with her. Patient has Covid so CM reached out to her Contact/Son/Bishop @ [phone] and addressed IMM with him, mailing original to Son Christy, at Bishop's request and placing a copy on the chart.Per Bishop, Patient has been staying in a hotel and returning to a hotel appears to be the goal for dc. DECLAN has initiated and will follow for dc planning.
[2020-06-26] MEDS: Piperacillin Sodium/Tazobactam 3.375 GM in 0.9 % Sodium Chloride 50 ML IV ×2 (09:38→13:57)
[2020-06-26 11:23] LABS: Procalcitonin 0.42 ng/mL
--- NOTE | 2020-06-26 11:33 | HO.PM.IMPN ---
Subjective Subjective Date of Service: 06/26/20 <Kiki Mendoza NP - Last Filed: 06/26/20 16:00> 06/27/20 <Kris Weber MD - Last Filed: 06/27/20 15:21> Interval History: Follow up covid 19, cough,pain to shoulders and back, itchiness from pain medications. <Kiki Mendoza NP - Last Filed: 06/26/20 16:00> Physical Exam Vital Signs: Vital Signs: Last Vital Signs Temp 96.9 F 06/26/20 07:38 Pulse 92 06/26/20 07:38 Resp 20 06/26/20 07:38 BP 95/64 06/26/20 07:38 Pulse Ox 89 L 06/26/20 07:38 Oxygen Flow Rate 2 06/25/20 19:03 Body Mass Index 20.5 <Kiki Mendoza NP - Last Filed: 06/26/20 16:00> tired appearing lung normal expansion heart regular rate rhythm positive bowel sounds, abdomen is soft, nontender neuro patient is alert x3, no focal deficits <Kiki Mendoza NP - Last Filed: 06/26/20 16:00> Objective Data Current Medications Generic Name Dose Route Start Last Admin Trade Name Freq PRN Reason Stop Dose Admin Acetaminophen 650 mg 06/26/20 02:23 Acetaminophen 325 Mg Tablet PO Q6H PRN Pain, Mild (Pain Scale 1-3) Dexamethasone Sodium Phosphate 6 mg 06/26/20 09:00 06/26/20 08:27 Dexamethasone Sod Phosphate 4 Mg/Ml Vial IVPUSH Not Given DAILY PHILLIP Diphenhydramine HCl 25 mg 06/26/20 11:16 Diphenhydramine Hcl 50 Mg/Ml Vial IVPUSH Q6H PRN pruritis Docusate Sodium 100 mg 06/26/20 02:23 Docusate Sodium 100 Mg Capsule PO DAILY PRN Constipation Enoxaparin Sodium 40 mg 06/26/20 04:00 06/26/20 04:54 Enoxaparin Sodium 40 Mg/0.4 Ml Syringe SUBCUT 40 mg Q24H PHILLIP Administration Hydromorphone HCl 0.5 mg 06/26/20 02:23 06/26/20 09:07 Hydromorphone Hcl 0.5 Mg/0.5 Ml Syringe IVPUSH 0.5 mg Q4H PRN Administration Pain, Severe (Pain Scale 7-10) Vancomycin HCl 750 mg/ Sodium 265 mls @ 270 mls/hr 06/26/20 08:00 06/26/20 09:25 Chloride IV Infused Q12H PHILLIP Infusion Piperacillin Sod/Tazobactam 50 mls @ 100 mls/hr 06/26/20 08:00 06/26/20 10:13 Sod 3.375 gm/ Sodium Chloride IV Infused Q6H PHILLIP Infusion Lactated Ringer's 1,000 mls @ 80 mls/hr 06/26/20 07:00 06/26/20 10:13 Lr IVCONT 80 mls/hr .[id number] PHILLIP Infusion Nicotine Polacrilex 2 mg 06/26/20 11:15 Nicotine Polacrilex 2 Mg Gum BUCCAL Q1H PRN withdrawl Ondansetron HCl 4 mg 06/26/20 02:23 Ondansetron Hcl 4 Mg/2 Ml Vial IVPUSH Q8H PRN Nausea and Vomiting Oxycodone HCl 5 mg 06/26/20 02:23 Oxycodone Hcl Immed Release 5 Mg Tablet PO Q6H PRN Pain, Severe (Pain Scale 7-10) Pharmacy Consult 1 each 06/26/20 06:52 Consult Rx Vancomycin Dosing MISCELLANE DAILY PRN Consult order Sodium Chloride 3 ml 06/26/20 08:00 06/26/20 08:25 0.9 % Sodium Chloride Flush 3 Ml Syringe IVFLUSH 3 ml QSHIFT PHILLIP Administration <Kiki Mendoza NP - Last Filed: 06/26/20 16:00> Labs CBC & Chem 7: : 06/25/20 19:58 06/25/20 19:58 <Kiki Mendoza NP - Last Filed: 06/26/20 16:00> Assessment and Plan (1) Acute respiratory failure with hypoxia: Problem details: She has possible sickle disease as well as possible bacterial pneumonia <Kiki Mendoza NP - Last Filed: 06/26/20 16:00> Status: Acute <Kiki Mendoza NP - Last Filed: 06/26/20 16:00> Assessment and Plan: 50-year-old female with sickle cell disease and recently diagnosed pneumonia secondary to COVID-19 presents to the hospital with shortness of breath Acute hypoxic respiratory failure. Most likely continues to be secondary to COVID-19 although on discharge on 06/17 patient was completely weaned off her oxygen and completed course of dexamethasone. Worsening chest CT - currently requiring 3 L of oxygen to maintain O2 above 90% - chest CT reveals typical findings of COVID pneumonia - COVID-19 PCR continues to be positive - Pulmonology, ID consultation Pneumonia. Rule out other causes including bacterial and viral. Worsening chest CT. Pathogen panel all negative except for covid. - procal 0.42 - start IV abx for superimposed infection - dexamethasone 6 mg daily - consult infectious disease - procalcitonin and resp panel pending - follow cultures Sickle cell crisis - hemoglobin above 7 with transfusion threshold below 7 - bili stable - pain control - IV fluids Smoker -NRT Dvt ppx:Lovenox Attending: Dr. Weber <Kiki Mendoza NP - Last Filed: 06/26/20 16:00> (2) Pneumonia due to 2019 novel coronavirus: Status: Acute <Kiki Mendoza NP - Last Filed: 06/26/20 16:00> Assessment and Plan: I independently saw and examined the patient and discuss findings including lab medication imaging with the mid-level. Patient has a post COVID acute hypoxic respiratory failure and the finding on CT scan suggested of a persistent pneumonia that could be bacterial in nature. She is rather hypoxic and is not compliant with oxygen. At this point I encouraged her to keep the oxygen on, continue antibiotics as ordered dexamethasone ID and Pulmonary consultation as stated above. Otherwise I agree with assessment and plans as outlined above. <Kris Weber MD - Last Filed: 06/27/20 15:21>
[2020-06-26] MEDS: diphenhydrAMINE HCL 50 MG/ML VIAL 25 MG IVPUSH ×2 (11:36→17:37)
[2020-06-26] MEDS: Nicotine Polacrilex 2 MG GUM BUCCAL ×3 (11:36→16:14)
[2020-06-26 13:47] LABS: SARS COV2 IgG Negative (Negative)
[2020-06-26 14:16] LABS: Adenovirus PCR Not Detected (Not Detect.); Bordetella parapertussis PCR Not Detected (Not Detect.); Bordetella pertussis PCR Not Detected (Not Detect.); Chlamydia pneumoniae PCR Not Detected (Not Detect.); Coronavirus 229E PCR Not Detected (Not Detect.); Coronavirus HKU1 PCR Not Detected (Not Detect.); Coronavirus NL63 PCR Not Detected (Not Detect.); Coronavirus OC43 PCR Not Detected (Not Detect.); Human metapneumovirus PCR Not Detected (Not Detect.); Influenza B PCR Not Detected (Not Detect.); Mycoplasma pneumoniae PCR Not Detected (Not Detect.); Parainfluenza 1 PCR Not Detected (Not Detect.); Parainfluenza 2 PCR Not Detected (Not Detect.); Parainfluenza 3 PCR Not Detected (Not Detect.); Parainfluenza 4 PCR Not Detected (Not Detect.); RSV PCR Not Detected (Not Detect.); Rhino/Enterovirus PCR Not Detected (Not Detect.)
[2020-06-26 15:41] LABS: SARS-CoV-2 PCR Detected (Not Detect.)
[2020-06-26 15:42] LABS: Influenza A PCR Not Detected (Not Detect.)
[2020-06-26] MEDS: LORazepam 0.5 MG TABLET 0.25 MG PO ×2 (16:14→22:33)
[2020-06-26] MEDS: oxyCODONE HCl Immed Release 5 MG TABLET PO ×2 (16:14→23:38)
--- NOTE | 2020-06-26 16:41 | P.CNID_ITS ---
History of Present Illness Data of Consult Service Date: 06/26/20 Requesting physician: Donny Barron Primary Care Provider: Unknown Physician HPI Reason for consult: shortness of breath She was hospitalized for COVID pneumonia last month She comes in with shortness of breath and fatigue She has no fever or chills now Review of Systems Review of Systems: Yes all other systems are reviewed and are negative PMFSH Past Medical History Medical History Bipolar 1 disorder Cocaine abuse GERD (gastroesophageal reflux disease) Pneumonia due to 2019 novel coronavirus PTSD (post-traumatic stress disorder) Sickle cell anemia Sickle cell anemia UTI (urinary tract infection) Family History Family History Other Diabetes Family history: reviewed and not pertinent Surgical History Surgical History Hx of cholecystectomy Social History Social History Household Members: None Housing: Apartment Do you presently have visiting nurse or other home services: No Alcohol intake: current Alcohol intake frequency: a few times a week Alcohol type: beer Smoking Status: Current every day smoker Tobacco Type: Cigarette Packs Per Day: 0.5 Cigarettes Per Day: 10 Smoked in Last 30 Days: Yes Patient Interested in Nicotine Replacement: Yes (GUM) Patient Given Instructions on How to Stop Smoking: No (refused) Second Hand Smoke Exposure: No Substance Use Type: Crack/Cocaine Substance Use Frequency: Weekly Last Used Substance: Days (ago) Currently Displaying Signs/Symptoms of Drug Intoxication Withdrawal: No Any prior treatment program specific to substance use: No Advance Directives: No Advance Directives Information Provided: Yes Do you have thoughts of harming others: None Do you have a plan to hurt others: No Plan Recently lost weight without trying: No Nutrition Risks: No Nutritional Risk Patient : No service: No Current occupational status: disabled Meds Allergies Allergy/AdvReac Type Severity Reaction Status Date / Time prochlorperazine Allergy Severe ANAPHYLAXIS Verified 05/10/20 01:39 [From COMPAZINE] Active Medications: Current Medications Generic Name Dose Route Start Last Admin Trade Name Freq PRN Reason Stop Dose Admin Acetaminophen 650 mg 06/26/20 02:23 Acetaminophen 325 Mg Tablet PO Q6H PRN Pain, Mild (Pain Scale 1-3) Dexamethasone Sodium Phosphate 6 mg 06/26/20 09:00 06/26/20 08:27 Dexamethasone Sod Phosphate 4 Mg/Ml Vial IVPUSH Not Given DAILY PHILLIP Diphenhydramine HCl 25 mg 06/26/20 11:16 06/26/20 11:36 Diphenhydramine Hcl 50 Mg/Ml Vial IVPUSH 25 mg Q6H PRN Administration pruritis Docusate Sodium 100 mg 06/26/20 02:23 Docusate Sodium 100 Mg Capsule PO DAILY PRN Constipation Enoxaparin Sodium 40 mg 06/26/20 04:00 06/26/20 04:54 Enoxaparin Sodium 40 Mg/0.4 Ml Syringe SUBCUT 40 mg Q24H PHILLIP Administration Hydromorphone HCl 0.5 mg 06/26/20 02:23 06/26/20 13:56 Hydromorphone Hcl 0.5 Mg/0.5 Ml Syringe IVPUSH 0.5 mg Q4H PRN Administration Pain, Severe (Pain Scale 7-10) Vancomycin HCl 750 mg/ Sodium 265 mls @ 270 mls/hr 06/26/20 08:00 06/26/20 09:25 Chloride IV Infused Q12H [facility] Infusion Piperacillin Sod/Tazobactam 50 mls @ 100 mls/hr 06/26/20 08:00 06/26/20 14:30 Sod 3.375 gm/ Sodium Chloride IV Infused Q6H [facility] Infusion Lactated Ringer's 1,000 mls @ 80 mls/hr 06/26/20 07:00 06/26/20 10:13 Lr IVCONT 80 mls/hr .[id number] [facility] Infusion Lorazepam 0.25 mg 06/26/20 16:00 06/26/20 16:14 Lorazepam 0.5 Mg Tablet PO 0.25 mg Q8H PRN Administration anxiety Nicotine Polacrilex 2 mg 06/26/20 11:15 06/26/20 16:14 Nicotine Polacrilex 2 Mg Gum BUCCAL 2 mg Q1H PRN Administration withdrawl Ondansetron HCl 4 mg 06/26/20 02:23 Ondansetron Hcl 4 Mg/2 Ml Vial IVPUSH Q8H PRN Nausea and Vomiting Oxycodone HCl 5 mg 06/26/20 02:23 06/26/20 16:14 Oxycodone Hcl Immed Release 5 Mg Tablet PO 5 mg Q6H PRN Administration Pain, Severe (Pain Scale 7-10) Pharmacy Consult 1 each 06/26/20 06:52 Consult Rx Vancomycin Dosing MISCELLANE DAILY PRN Consult order Sodium Chloride 3 ml 06/26/20 08:00 06/26/20 15:07 0.9 % Sodium Chloride Flush 3 Ml Syringe IVFLUSH Not Given QSHIFT [facility] Home Medications Medication Instructions Recorded Confirmed Last Taken Type oxycodone-acetaminophen 1 tab PO Q6-8H PRN 06/26/20 06/26/20 Unknown History Physical Exam Vital Signs: Vital Signs: Last Vital Signs Temp 98.3 F 06/26/20 15:01 Pulse 71 06/26/20 15:01 Resp 20 06/26/20 15:01 BP 98/52 L 06/26/20 15:01 Pulse Ox 90 L 06/26/20 15:01 Oxygen Flow Rate 2 06/25/20 19:03 Body Mass Index 20.5 Const: General: cooperative HENMT: Head: Yes normal to inspection Mouth: Normal oral and palatal mucosa present Resp: Effort & Inspection: normal respiratory effort Cardio: Rate: regular rate Rhythm: regular rhythm GI: Palpation (GI): Soft to palpation and nontender : General: Yes no CVA tenderness Back/Spine/Pelvis: Back: no CVA tenderness Skin: General skin exam: no rashes or lesions noted Results Labs CBC & Chem 7: 06/25/20 19:58 06/25/20 19:58 Labs: Short CBC 06/25/20 Range/Units 19:58 WBC 12.8 H (4.8-10.8) X10*3/uL Hgb 7.8 L (12.0-16.0) g/dl Hct 21.8 L (37-47) % Plt Count 173 D (160-400) X10*3/uL BMP 06/25/20 19:58 Sodium 133 L Potassium 4.6 Chloride 103 Carbon Dioxide 23 BUN 17 H Creatinine 0.99 Calcium 7.8 L Liver Function 06/25/20 Range/Units 19:58 Total Bilirubin 2.7 H (0.0-1.0) mg/dL AST 102 H (5-31) U/L ALT 45 H (0-31) U/L Alkaline Phosphatase 167 H (39-117) U/L Albumin 3.2 L (3.5-5.0) g/dL Assessment and Plan (1) Acute respiratory failure with hypoxia: Problem details: She has possible sickle disease as well as possible bacterial pneumonia Status: Acute May use Ceftriaxone and Vancomycin Stop Vancomycin if negative nares HIV if not recent (2) Sickle cell anemia with crisis: Status: Acute
[2020-06-26] MEDS: cefTRIAXone sodium 1 GM in 0.9 % Sodium Chloride 50 ML IV (17:09)
[2020-06-26] MEDS: Magnesium Hydrox/Alum Hydrox 30 ML ORAL.SUSP 15 ML PO (18:08)
--- NOTE | 2020-06-26 18:28 | PC.NURSE ---
Patient up to the unit around 0730 this AM. Requesting PRN pain meds around the clock for 20 out of 10 pain. Respiratory and MRSA panels collected. Patient expresses concern with not having received home meds today, hospitalist notified. Patient also requests omeprazole instead of PRN maalox for heart burn; hospitalist notified as well. Patient refused VBG draw, because she didn't want to be poked again; hospitalist notified. Patient frequently removing nasal cannula and is argumentative and difficult to convince to put it back on, although she de-sats to the 70s. Offered alternative O2 delivery routes, patient refuses. Patient given cloth mask, as she reports it helps keep the oxygen on, but this did not prove true. Patient now on 10L [place], with O2 SAT in the low 90s after attempts to change O2 finger sensor. Patient does not appear in distress. Will pass to oncoming nurse.
--- NOTE | 2020-06-26 20:55 | PC.NURSE ---
Addendum entered by Danielle Haas RN 06/27/20 03:29: Patient continues to be non-compliant with oxygen. Sats in the 30-40 when pt off oxygen for extended amouth of time. made aware via telephone. Addendum entered by Danielle Haas RN 06/26/20 22:40: Patient very anxious and worked up, states that she can't breath - pt not keeping nasal cannula in nose. Staff in several times thus far in the shift to re-educated and put oxygen back on. This RN offered to put humidification on - pt refused. Offered to get her a mask to give her nose a break, pt refuses and continues to yell at staff. Pt given PRN .25mg PO ativan early - Dr. Anderson franklin with giving PRN dose early. Will reassess anxiety an will continue to monitor oxygen. Original Note: Patient being uncooperative with keeping oxygen on. Sats dropping consistently into the 70/80's because she's pulling it off. This RN has educated the patient on importance of keeping oxygen in nose. Pt yelling and continues to take oxygen off. Will continue to monitor.
--- NOTE | 2020-06-26 20:57 | PC.NURSE ---
Patient noted she hasn't received home meds since arrival to [facility]. Asked what meds she takes at home, pt named 3 meds which were added to her med rec by this RN. Pt states she uses [facility] on [email or web address] in [place]. Pharmacy called to let this RN know pt has not filled anything there since Oct 2019. This RN asked pt if she uses any other pharmacy, and she reports using [facility] specialty pham[facility]. This RN let pharmacy know and they will follow up.
[2020-06-27] VITALS (9 sets, daily range): BP systolic 85–140; BP diastolic 49–77; PULSE 77–107; RESP 16–20; TEMP 36.2–38.1; O2SAT 52–95
--- NOTE | 2020-06-27 00:55 | PC.NURSE ---
Patient continues to c/o 10/10 pain after PRN dilaudid and oxycodone given. Dr. Barron notified and ordered a one time dose of dilaudid.
[2020-06-27] MEDS: diphenhydrAMINE HCL 50 MG/ML VIAL 25 MG IVPUSH (01:05)
[2020-06-27] MEDS: HYDROmorphone HCl 0.5 MG/0.5 ML SYRINGE IVPUSH ×3 (01:22→19:59)
[2020-06-27] MEDS: Acetaminophen 325 MG TABLET 650 MG PO (03:14)
--- NOTE | 2020-06-27 03:27 | PC.NURSE ---
Patient has temp of 104.0 orally. Tylenol given. IVF running. Pt on IV abx. MD notified. No new orders at this time.
--- NOTE | 2020-06-27 04:27 | PC.NURSE ---
Patient temp 100.4 at 0330, tylenol given, temp rechecked at 0425 and its 100.3 orally. Will monitor.
--- NOTE | 2020-06-27 04:29 | PC.NURSE ---
Addendum entered by Danielle Haas RN 06/27/20 05:17: Patient ringing for pain meds. Pt noted to have pulled out her IV. Will medicated with PO oxycodone. Pt uncooperative with lab draw - lab attempted x2 to get AM labs but pt is pulling arm away. Hospitalist notified that pt has no IV access. Original Note: Patient sitting at side of bed. Answering some questions and answers are appropriate. Other questions she won't acknowledge you are in the room. Pt asked if she is in pain and she is refusing to respond at this time. Will continue to monitor.
[2020-06-27] MEDS: oxyCODONE HCl Immed Release 5 MG TABLET PO (05:36)
[2020-06-27] MEDS: oxyCODONE HCl Immed Release 5 MG TABLET 10 MG PO (07:28)
[2020-06-27] MEDS: LORazepam 0.5 MG TABLET 0.25 MG PO (07:28)
[2020-06-27 08:14] LABS: HIV AB/AG Nonreactive (Nonreactive); HIV Num 1 0.06 S/CO (0.00-0.99)
[2020-06-27 09:23] LABS: MRSA Nasal PCR NEGATIVE (Negative); SA Nasal PCR NEGATIVE (Negative)
--- NOTE | 2020-06-27 12:31 | PM.CNPUL ---
History of Present Illness History of Present Illness Consult date: 06/27/20 Chief complaint: hypoxic resp failure, sickle crisis Narrative: This is a 50-year-old female with past medical history of sickle cell disease who presents to the hospital with complaints of shortness of breath. Of note Patient was admitted to the hospital with COVID-19 pneumonia and hypoxia and discharged on 06/18 after being managed with dexamethasone for COVID-19 pneumonia as well as PRBC transfusion for sickle cell anemia. Returns today complaining of cough, shortness of breath, and feeling pain all over her body for the past few days. She also reports a temperature fever and chills. on arrival to the ED patient was found to be hypoxic placed on 3 L of oxygen satting 92%. The patient had a repeat COVID test which was positive. She was admitted to the COVID unit. She was placed on dexamethasone. Infectious Disease did evaluate the patient. Awaiting IgG levels. In the meantime the patient continues to have significant oxygen requirements. Her CT scan demonstrating pretty extensive areas of ground-glass opacities and consolidation likely all related to the COVID. At this point will increase her cortical steroid therapy to try to improve gas exchange. Review of Systems Constitutional: Constitutional: Denies night sweats ENT: Denies change in voice, Denies lip swelling, Denies mouth pain, Reports nasal congestion, Reports nasal discharge and Denies tongue swelling Cardiovascular: Cardiovascular: Denies chest pain and Reports dyspnea Respiratory: Respiratory: Reports cough and Reports dyspnea Gastrointestinal: Gastrointestinal: Denies abdominal pain Musculoskeletal: Musculoskeletal: Denies no additional musculoskeletal complaints Neurologic: Denies Neuro-related abnormal movements Psychiatric: Psychiatric: Denies no additional psychiatric complaints Hematologic/Lymphatic: Hematologic/Lymphatic: Denies easy bleeding and Denies lymphadenopathy Allergic/Immunologic: Allergic/Immunologic: Denies lip swelling and Denies tongue swelling [facility] Past Medical History Medical History (Updated 06/27/20 @ 12:34 by Vincenzo Mendoza MD) Bipolar 1 disorder Cocaine abuse GERD (gastroesophageal reflux disease) Pneumonia due to 2019 novel coronavirus PTSD (post-traumatic stress disorder) Sickle cell anemia Sickle cell anemia UTI (urinary tract infection) Family History Family History Other Diabetes Family history: reviewed and not pertinent Surgical History Surgical History Hx of cholecystectomy Social History Social History Household Members: None Housing: Apartment Do you presently have visiting nurse or other home services: No Alcohol intake: current Alcohol intake frequency: a few times a week Alcohol type: beer Smoking Status: Current every day smoker Tobacco Type: Cigarette Packs Per Day: 0.5 Cigarettes Per Day: 10 Smoked in Last 30 Days: Yes Patient Interested in Nicotine Replacement: Yes (GUM) Patient Given Instructions on How to Stop Smoking: No (refused) Second Hand Smoke Exposure: No Substance Use Type: Crack/Cocaine Substance Use Frequency: Weekly Last Used Substance: Days (ago) Currently Displaying Signs/Symptoms of Drug Intoxication Withdrawal: No Any prior treatment program specific to substance use: No Advance Directives: No Advance Directives Information Provided: Yes Do you have thoughts of harming others: None Do you have a plan to hurt others: No Plan Recently lost weight without trying: No Nutrition Risks: No Nutritional Risk Patient : No service: No Current occupational status: disabled Meds Allergies Allergy/AdvReac Type Severity Reaction Status Date / Time prochlorperazine Allergy Severe ANAPHYLAXIS Verified 05/10/20 01:39 [From COMPAZINE] Active Medications: Current Medications Generic Name Dose Route Start Last Admin Trade Name Freq PRN Reason Stop Dose Admin Acetaminophen 650 mg 06/26/20 02:23 06/27/20 03:14 Acetaminophen 325 Mg Tablet PO 650 mg Q6H PRN Administration Pain, Mild (Pain Scale 1-3) Al Hydroxide/Mg Hydroxide 15 ml 06/26/20 17:47 06/26/20 18:08 Magnesium Hydrox/Alum Hydrox 30 Ml Oral.Susp PO 15 ml Q4H PRN Administration Heartburn Diphenhydramine HCl 25 mg 06/26/20 11:16 06/27/20 01:05 Diphenhydramine Hcl 50 Mg/Ml Vial IVPUSH 25 mg Q6H PRN Administration pruritis Docusate Sodium 100 mg 06/26/20 02:23 Docusate Sodium 100 Mg Capsule PO DAILY PRN Constipation Enoxaparin Sodium 40 mg 06/26/20 04:00 06/27/20 03:15 Enoxaparin Sodium 40 Mg/0.4 Ml Syringe SUBCUT Not Given Q24H [facility]ILLIP Hydromorphone HCl 0.5 mg 06/26/20 02:23 06/26/20 22:14 Hydromorphone Hcl 0.5 Mg/0.5 Ml Syringe IVPUSH 0.5 mg Q4H PRN Administration Pain, Severe (Pain Scale 7-10) Vancomycin HCl 750 mg/ Sodium 265 mls @ 270 mls/hr 06/26/20 08:00 06/27/20 07:26 Chloride IV Not Given Q12H [facility] Lactated Ringer's 1,000 mls @ 80 mls/hr 06/26/20 07:00 06/27/20 07:25 Lr IVCONT Not Given .[id number] [facility] Ceftriaxone Sodium 1 gm/ 50 mls @ 100 mls/hr 06/26/20 17:00 06/26/20 17:54 Sodium Chloride IV Infused Q24H [facility] Infusion Lorazepam 0.25 mg 06/26/20 16:00 06/27/20 07:28 Lorazepam 0.5 Mg Tablet PO 0.25 mg Q8H PRN Administration anxiety Methylprednisolone Sodium Succinate 80 mg 06/27/20 12:30 Methylprednisolone Sod Succ 125 Mg/2 Ml Vial IVPUSH Q8H [facility] Nicotine Polacrilex 2 mg 06/26/20 11:15 06/26/20 16:14 Nicotine Polacrilex 2 Mg Gum BUCCAL 2 mg Q1H PRN Administration withdrawl Ondansetron HCl 4 mg 06/26/20 02:23 Ondansetron Hcl 4 Mg/2 Ml Vial IVPUSH Q8H PRN Nausea and Vomiting Oxycodone HCl 5 mg 06/26/20 02:23 06/27/20 05:36 Oxycodone Hcl Immed Release 5 Mg Tablet PO 5 mg Q6H PRN Administration Pain, Severe (Pain Scale 7-10) Pharmacy Consult 1 each 06/26/20 06:52 Consult Rx Vancomycin Dosing MISCELLANE DAILY PRN Consult order Sodium Chloride 3 ml 06/26/20 08:00 06/27/20 07:25 0.9 % Sodium Chloride Flush 3 Ml Syringe IVFLUSH Not Given QSHIFT [facility] Home Medications Medication Instructions Recorded Confirmed Last Taken Type hydroxyurea (sickle cell) 500 mg PO BID 06/26/20 06/27/20 Unknown History hydroxyzine pamoate 1 cap PO QID PRN 06/26/20 06/26/20 Unknown History oxycodone-acetaminophen 1 tab PO Q6-8H PRN 06/26/20 06/26/20 Unknown History Physical Exam Vital Signs: Vital Signs: Last Vital Signs Temp 97.1 F 06/27/20 11:20 Pulse 83 06/27/20 11:20 Resp 20 06/27/20 11:20 BP 96/56 L 06/27/20 11:20 Pulse Ox 92 06/27/20 11:20 Oxygen Flow Rate 2 06/25/20 19:03 Body Mass Index 20.5 Const: General: alert Neck: Neck: Yes normal visual inspection, Yes full ROM and Yes no lymphadenopathy Chest: Chest palpation & inspection: normal inspection of the chest Resp: Auscultation: rales, no rhonchi, no wheezes and diminished lung sounds Cardio: Rate: regular rate Rhythm: regular rhythm Heart sounds: S1 normal heart sound present and S2 normal heart sound present GI: Palpation (GI): Soft to palpation and nontender Auscultation: normal bowel sounds : General: Yes no CVA tenderness Back/Spine/Pelvis: Back: no CVA tenderness Skin: General skin exam: rashes and/or lesions noted Results Laboratory Findings CBC and BMP: 06/25/20 19:58 06/25/20 19:58 ABG, PT/INR, D-dimer: PT/INR, D-dimer PT 13.9 SEC (10.8-13.0) H 06/25/20 23:36 INR 1.2 (0.9-1.1) H 06/25/20 23:36 Abnormal lab findings: Abnormal Labs 06/25/20 06/25/20 06/25/20 19:58 19:58 19:59 WBC 12.8 H RBC 2.29 L Hgb 7.8 L Hct 21.8 L MCH 34.1 H MCHC 35.8 H RDW 18.7 H Absolute Nucleated RBC 0.890 H Nucleated RBC % (auto) 6.9 H Abs Neuts (Manual) 8.8 H Nucleated RBCs 8 H Absolute Retic 0.225 H Percent Retic 9.8 H Retic Hgb Equivalent 29.5 L PT INR VBG HCO3 Sodium 133 L BUN 17 H Calcium 7.8 L Total Bilirubin 2.7 H AST 102 H ALT 45 H Alkaline Phosphatase 167 H Albumin 3.2 L COVID-19 ([place]) Positive A SARS-CoV-2 RNA (RT-PCR) 06/25/20 06/25/20 06/26/20 23:36 23:39 14:02 WBC RBC Hgb Hct MCH MCHC RDW Absolute Nucleated RBC Nucleated RBC % (auto) Abs Neuts (Manual) Nucleated RBCs Absolute Retic Percent Retic Retic Hgb Equivalent PT 13.9 H INR 1.2 H VBG HCO3 20 L Sodium BUN Calcium Total Bilirubin AST ALT Alkaline Phosphatase Albumin COVID-19 ([place]) SARS-CoV-2 RNA (RT-PCR) Detected A Microbiology: Microbiology 06/25/20 20:24 Blood - Venous Blood Culture - Preliminary No growth after 24 hours. 06/25/20 20:02 Blood - Venous Blood Culture - Preliminary No growth after 24 hours. Assessment and Plan (1) Acute respiratory failure with hypoxia: Problem details: She has possible sickle disease as well as possible bacterial pneumonia Status: Acute (2) Pneumonia due to 2019 novel coronavirus: Status: Acute (3) Sickle cell anemia with crisis: Status: Acute (4) Cocaine abuse: Status: Acute Discontinue Decadron Start Solu-Medrol 80 mg Q 8 times 1-2 days Repeat chest x-ray tomorrow Checking SARs cvov2 antibioties
--- NOTE | 2020-06-27 14:09 | MHC.CM.PN ---
Female 50 DXResp Failure/sickle cell DP return to Hotel may need transport. CM will follow.
[2020-06-27 14:17] LABS: Immunoglobulin G 1862 mg/dL (600-1640)
--- NOTE | 2020-06-27 15:21 | HO.PM.IMPN ---
Subjective Subjective Date of Service: 06/27/20 Interval History: Patient seen and examined for acute hypoxic respiratory failure related to recent COVID infection. She continued to be very hypoxic and has been declining using oxygen. Additionally she has poor IV access and could not get her medication. A PICC line has been inserted at this point Review of Systems She short of breath, no fever, she is not confused. Oxygen does drop along when she takes oxygen off. Physical Exam Vital Signs: Vital Signs: Last Vital Signs Temp 98.0 F 06/27/20 15:03 Pulse 96 06/27/20 15:03 Resp 20 06/27/20 15:03 BP 140/77 H 06/27/20 15:03 Pulse Ox 90 L 06/27/20 15:03 Oxygen Flow Rate 2 06/25/20 19:03 Body Mass Index 20.5 Const: Other: Patient of somnolent but agitated when woken and response to verbal and painful stimuli adjust as stay awake long enough to answer questions General: cooperative and alert Chest: Chest palpation & inspection: normal inspection of the chest Resp: Other: Tachypneic, on non-rebreather Effort & Inspection: normal respiratory effort Auscultation: rales, no rhonchi, no wheezes and diminished lung sounds Cardio: Rate: regular rate Rhythm: regular rhythm Heart sounds: S1 normal heart sound present and S2 normal heart sound present GI: Palpation (GI): Soft to palpation and nontender Auscultation: normal bowel sounds : General: Yes no CVA tenderness Back/Spine/Pelvis: Back: no CVA tenderness Skin: General skin exam: rashes and/or lesions noted Neuro: Cognition (Neuro): normal cognition Extrem: General: Yes normal to inspection and Yes no pedal edema Objective Data Current Medications Generic Name Dose Route Start Last Admin Trade Name Freq PRN Reason Stop Dose Admin Acetaminophen 650 mg 06/26/20 02:23 06/27/20 03:14 Acetaminophen 325 Mg Tablet PO 650 mg Q6H PRN Administration Pain, Mild (Pain Scale 1-3) Al Hydroxide/Mg Hydroxide 15 ml 06/26/20 17:47 06/26/20 18:08 Magnesium Hydrox/Alum Hydrox 30 Ml Oral.Susp PO 15 ml Q4H PRN Administration Heartburn Diphenhydramine HCl 25 mg 06/26/20 11:16 06/27/20 01:05 Diphenhydramine Hcl 50 Mg/Ml Vial IVPUSH 25 mg Q6H PRN Administration pruritis Docusate Sodium 100 mg 06/26/20 02:23 Docusate Sodium 100 Mg Capsule PO DAILY PRN Constipation Enoxaparin Sodium 40 mg 06/26/20 04:00 06/27/20 03:15 Enoxaparin Sodium 40 Mg/0.4 Ml Syringe SUBCUT Not Given Q24H [facility] Hydromorphone HCl 0.5 mg 06/26/20 02:23 06/26/20 22:14 Hydromorphone Hcl 0.5 Mg/0.5 Ml Syringe IVPUSH 0.5 mg Q4H PRN Administration Pain, Severe (Pain Scale 7-10) Vancomycin HCl 750 mg/ Sodium 265 mls @ 270 mls/hr 06/26/20 08:00 06/27/20 07:26 Chloride IV Not Given Q12H [facility] Lactated Ringer's 1,000 mls @ 80 mls/hr 06/26/20 07:00 06/27/20 07:25 Lr IVCONT Not Given .[id number] [facility] Ceftriaxone Sodium 1 gm/ 50 mls @ 100 mls/hr 06/26/20 17:00 06/26/20 17:54 Sodium Chloride IV Infused Q24H [facility] Infusion Lorazepam 0.25 mg 06/26/20 16:00 06/27/20 07:28 Lorazepam 0.5 Mg Tablet PO 0.25 mg Q8H PRN Administration anxiety Methylprednisolone Sodium Succinate 80 mg 06/27/20 12:30 Methylprednisolone Sod Succ 125 Mg/2 Ml Vial IVPUSH Q8H [facility] Nicotine Polacrilex 2 mg 06/26/20 11:15 06/26/20 16:14 Nicotine Polacrilex 2 Mg Gum BUCCAL 2 mg Q1H PRN Administration withdrawl Ondansetron HCl 4 mg 06/26/20 02:23 Ondansetron Hcl 4 Mg/2 Ml Vial IVPUSH Q8H PRN Nausea and Vomiting Oxycodone HCl 5 mg 06/26/20 02:23 06/27/20 05:36 Oxycodone Hcl Immed Release 5 Mg Tablet PO 5 mg Q6H PRN Administration Pain, Severe (Pain Scale 7-10) Pharmacy Consult 1 each 06/26/20 06:52 Consult Rx Vancomycin Dosing MISCELLANE DAILY PRN Consult order Sodium Chloride 3 ml 06/26/20 08:00 06/27/20 07:25 0.9 % Sodium Chloride Flush 3 Ml Syringe IVFLUSH Not Given QSHIFT [facility] Labs CBC & Chem 7: 06/25/20 19:58 06/25/20 19:58 Microbiology Microbiology Results: Microbiology 06/25/20 20:24 Blood - Venous Blood Culture - Preliminary No growth after 24 hours. 06/25/20 20:02 Blood - Venous Blood Culture - Preliminary No growth after 24 hours. Assessment and Plan (1) Acute respiratory failure with hypoxia: Problem details: She has possible sickle disease as well as possible bacterial pneumonia Status: Acute (2) Pneumonia due to 2019 novel coronavirus: Status: Acute Assessment and Plan: 50-year-old female with sickle cell disease and recently diagnosed pneumonia secondary to COVID-19 presents to the hospital with shortness of breath Acute hypoxic respiratory failure. likely from post covid inflamatory changes vs acute superimposed penumonia -IV steroid as recommended by Pulmonary -O2 -IV Abx as recommended by ID -MRSA nasal screen and if negative dc Vanco Sickle cell crisis-- -check CBC, transfuse if Hgb < 7 -IVF oxygen and - hemoglobin above 7 with transfusion threshold below 7 - bili stable - pain control with oxycodone - IV fluids Smoker -NRT
--- NOTE | 2020-06-27 15:29 | P.PICC_ITS ---
[facility] Line Insertion [facility] Diagnosis: SOB Indication: NEEDS IV ACCESS FOR MULTIPLE IV MEDICATIONS; DIFFICULT IV ACCESS Pertinent Labs: REVIEWED Technique: Following informed consent including risks, benefits and alternatives and using sterile technique including cap and mask, sterile gown, glove and drape, the RIGHT arm was prepped and draped in the usual sterile fashion of full barrier technique with CHG. Following completion of [place] Protocol the skin and soft tissues were anesthetized with 1% Lidocaine plain. Using ultrasound guidance, BRACHIAL vein access was obtained IN SINGLE ATTEMPT BY THIS RN. Over an 0.018 wire through peel-away sheath, a 5-FIJIAN, DUAL-LUMEN, PASV PICC line was positioned. DIFFICULTY ADVANCING PICC LINE PASSED AXILLARY AREA; DR DENG CALLED AND ABLE TO PROVIDE BEDSIDE ASSIST. PER DR DENG, PICC WAS CUT TO 28.5 CM AND INSERTED; BLOOD RETURN VISUALIZED, FLUSHES EASILY W/O COMPLAINTS FROM PT. Catheter length is 27.5 CM internal length, 1 CM external length, for a total trimmed length of 28.5 CM. The procedure was performed in [facility] Tip verification TO BE DETERMINED WITH CXR RECOMMENDED BY DR DENG. Ultrasound was used to document vein patency and for needle entry. A formal ultrasound picture was recorded. V[employer] G[employer]st Developer has NOT released the line for use; AWAITING CXR RESULTS. PICC is currently dressed with a StatLock, Tegaderm, and CHG disc. Verification has been performed for blood return and line patency. Arm Circumference: 25 CM Equipment: [employer] POWERPICC SOLO Catheter Type: 5-F, DUAL LUMEN, PASV Lot #: [id number]
[2020-06-27] MEDS: methylPREDNISolone Sod Succ 125 MG/2 ML VIAL 80 MG IVPUSH ×2 (16:04→22:09)
[2020-06-27] MEDS: 0.9 % Sodium Chloride Flush 3 ML SYRINGE IVFLUSH (16:04)
[2020-06-27] MEDS: Lactated Ringers 1,000 ML 80 ML IVCONT (16:05)
[2020-06-27] MEDS: cefTRIAXone sodium 1 GM in 0.9 % Sodium Chloride 50 ML IV (16:05)
[2020-06-27 18:02] LABS: VBG HCO3 18 mmol/L (22-26); VBG pCO2 26 mmHg; VBG pH 7.44 (7.32-7.43); VBG pO2 84 mmHg
[2020-06-27 18:04] LABS: Venous Blood Gas Refer to POC result
[2020-06-27 18:24] LABS: Basophils Percent Auto 0.2 % (0-2); Eosinophils Percent Auto 0.2 % (0-4); Hemoglobin 7.2 g/dl (12.0-16.0); Imm Gran Abs Auto 0.27 X10*3/uL (0.00-0.03); Imm Gran Pct Auto 1.2 % (0.0-0.4); Lymphocytes Absolute Auto 0.7 X10*3/uL (1.2-4.9); Lymphocytes Percent Auto 3.2 % (20-40); MANUAL DIFF FLAG SCAN; Mean Corpuscular HGB Conc 35.1 g/dl (31.0-35.0); Mean Corpuscular Hemoglobin 33.6 pg (27.0-33.0); Mean Corpuscular Volume 95.8 fL (80-98); Monocytes Absolute Auto 1.4 X10*3/uL (0.1-1.2); Monocytes Percent Auto 6.1 % (2-11); Neutrophils Absolute Auto 19.8 X10*3/uL (2.0-8.3); Neutrophils Percent Auto 89.1 % (45-73); Platelet Count 188 X10*3/uL (160-400); Red Blood Count 2.14 X10*6/uL (4.20-5.50); Red Cell Distribution Width 18.2 % (11.0-16.0); SCAN SMEAR FLAG 1; White Blood Count 22.2 X10*3/uL (4.8-10.8)
[2020-06-27 18:30] LABS: NRBC Pct Auto 3.9 /100WBC (0.0-0.2)
[2020-06-27 18:32] LABS: Hematocrit 20.5 % (37-47)
[2020-06-27 18:38] LABS: Anion Gap 12 (12-20); Blood Urea Nitrogen 12 mg/dL (9-16); Calcium 7.8 mg/dL (8.4-10.2); Carbon Dioxide 21 mmol/L (22-29); Chloride 109 mmol/L (96-108); Creatinine Clr Calc Pharmacy 74.9; Estimated Glomerular Filt Rate > 60; Glucose Random 86 mg/dL (60-115); Potassium 3.9 mmol/L (3.3-5.1); Sodium 138 mmol/L (135-145)
[2020-06-27 18:41] LABS: SLIDE REVIEW VERIFIED
--- NOTE | 2020-06-27 19:23 | PC.NURSE ---
Patient is refusing blood work for Vanco trough, stated nobody will touch my body ,
[2020-06-28] MEDS: 0.9 % Sodium Chloride Flush 3 ML SYRINGE IVFLUSH ×2 (00:02→23:55)
[2020-06-28] MEDS: methylPREDNISolone Sod Succ 125 MG/2 ML VIAL 80 MG IVPUSH ×3 (03:25→20:05)
[2020-06-28] MEDS: diphenhydrAMINE HCL 50 MG/ML VIAL 25 MG IVPUSH ×4 (03:26→22:48)
[2020-06-28] MEDS: HYDROmorphone HCl 0.5 MG/0.5 ML SYRINGE IVPUSH ×5 (03:26→20:06)
[2020-06-28 03:35] VITALS: BP 111/58; PULSE 86; RESP 20; TEMP 36.1; O2SAT 94
[2020-06-28] MEDS: Lactated Ringers 1,000 ML 80 ML IVCONT ×2 (03:46→16:19)
[2020-06-28 04:40] LABS: SARS COV2 IgG Positive (Negative)
[2020-06-28] MEDS: oxyCODONE HCl Immed Release 5 MG TABLET PO ×2 (06:14→22:47)
[2020-06-28 07:17] VITALS: BP 103/58; PULSE 58; RESP 20; TEMP 36.3; O2SAT 91
[2020-06-28] MEDS: vancomycin HCL 750 MG in 0.9 % Sodium Chloride 250 ML 270 MG IV (08:15)
[2020-06-28] MEDS: Nicotine Polacrilex 2 MG GUM BUCCAL (08:33)
--- NOTE | 2020-06-28 09:12 | PM.PNPUL ---
Subjective Subjective Date of Service: 06/28/20 Interval history: The patient was seen on exam. Unfortunately her oxygen requirements increased now on a non-rebreather. At increase her cortical steroids yesterday. Her chest x-ray today appears to be slightly improved when compared to the 1 just prior. I am hopeful that will start seen a trend of improvement, therefore, will keep her on the higher dose steroids. Her IgG for the SARs cov2 is positive in her IgG levels are significantly elevated suggesting that she she is immunocompetent. The patient now is more anemic and this will also were interfere with her respiratory issue. Objective Data Labs CBC & Chem 7: 06/27/20 17:53 06/27/20 17:53 Labs: Laboratory Results - last 24 hr 06/26/20 06/26/20 06/27/20 10:09 16:13 17:53 WBC 22.2 H RBC 2.14 L Hgb 7.2 L Hct 20.5 L* MCV 95.8 MCH 33.6 H MCHC 35.1 H RDW 18.2 H Plt Count 188 MPV 13.0 H Immature Gran % (Auto) 1.2 H Neut % (Auto) 89.1 H Lymph % (Auto) 3.2 L [place] % (Auto) 6.1 Eos % (Auto) 0.2 Baso % (Auto) 0.2 Lymph # (Auto) 0.7 L [place] # (Auto) 1.4 H Eos # (Auto) 0.0 Baso # (Auto) 0.0 Abs Immat Gran (auto) 0.27 H Absolute Neuts (auto) 19.8 H Absolute Nucleated RBC 0.870 H Nucleated RBC % (auto) 3.9 H Smear Tech's Comments VERIFIED VBG pH VBG pCO2 VBG pO2 VBG HCO3 VBG O2 Saturation VBG Base Excess Sodium Potassium Chloride Carbon Dioxide Anion Gap BUN Creatinine Estim Creat Clear Calc Estimated GFR Random Glucose Calcium Nasal Screen MRSA (PCR) NEGATIVE Nasal S. aureus Screen NEGATIVE Nasal MRSA/S.aureus Interp SEE NOTE IgG 1862 H SARS-CoV-2 IgG Ab 06/27/20 06/27/20 06/27/20 17:53 17:53 17:56 WBC RBC Hgb Hct MCV MCH MCHC RDW Plt Count MPV Immature Gran % (Auto) Neut % (Auto) Lymph % (Auto) [place] % (Auto) Eos % (Auto) Baso % (Auto) Lymph # (Auto) [place] # (Auto) Eos # (Auto) Baso # (Auto) Abs Immat Gran (auto) Absolute Neuts (auto) Absolute Nucleated RBC Nucleated RBC % (auto) Smear Tech's Comments VBG pH 7.44 H VBG pCO2 26 VBG pO2 84 VBG HCO3 18 L VBG O2 Saturation 93.0 VBG Base Excess TNP Sodium 138 Potassium 3.9 Chloride 109 H Carbon Dioxide 21 L Anion Gap 12 BUN 12 Creatinine 0.78 Estim Creat Clear Calc 74.9 Estimated GFR > 60 Random Glucose 86 Calcium 7.8 L Nasal Screen MRSA (PCR) Nasal S. aureus Screen Nasal MRSA/S.aureus Interp IgG SARS-CoV-2 IgG Ab Positive Microbiology Microbiology Results: Microbiology 06/25/20 20:24 Blood - Venous Blood Culture - Preliminary No growth after 48 hours. 06/25/20 20:02 Blood - Venous Blood Culture - Preliminary No growth after 48 hours. Review of Systems Constitutional: Denies night sweats Denies change in voice, Denies lip swelling, Denies mouth pain, Reports nasal congestion, Reports nasal discharge and Denies tongue swelling Cardiovascular: Reports chest pain and Reports dyspnea Respiratory: Reports cough, Reports pain on inspiration, Reports pain with cough and Reports dyspnea Gastrointestinal: Denies abdominal pain Musculoskeletal: Denies no additional musculoskeletal complaints Denies Neuro-related abnormal movements Psychiatric: Denies no additional psychiatric complaints Hematologic/Lymphatic: Denies easy bleeding and Denies lymphadenopathy Allergic/Immunologic: Denies lip swelling and Denies tongue swelling Physical Exam Vital Signs: Vital Signs: Last Vital Signs Temp 97.4 F 06/28/20 07:17 Pulse 58 06/28/20 07:17 Resp 20 06/28/20 07:17 BP 103/58 L 06/28/20 07:17 Pulse Ox 91 L 06/28/20 07:17 Oxygen Flow Rate 2 06/25/20 19:03 Body Mass Index 20.5 Const: General: no acute distress Neck: Neck: Yes normal visual inspection, Yes full ROM and Yes no lymphadenopathy Chest: Chest palpation & inspection: normal inspection of the chest Resp: Auscultation: rales and diminished lung sounds Cardio: Rate: regular rate Rhythm: regular rhythm Heart sounds: S1 normal heart sound present and S2 normal heart sound present GI: Palpation (GI): Soft to palpation and nontender Auscultation: normal bowel sounds Skin: General skin exam: rashes and/or lesions noted Assessment and Plan Assessment and plan (1) Acute respiratory failure with hypoxia: Problem details: She has possible sickle disease as well as possible bacterial pneumonia Status: Acute (2) Pneumonia due to 2019 novel coronavirus: Status: Acute (3) Sickle cell anemia with crisis: Status: Acute Assessment and Plan: Continue IV Solu-Medrol for today Blood transfusion may be helpful Continue ceftriaxone and vancomycin Time Spent With Patient Time: Total time spent is greater than 50% in coordination of care (as documented) at patient's floor/unit and/or counseling patient: Time with patient: 15 - 24 minutes
[2020-06-28 09:15] LABS: MRSA Nasal PCR NEGATIVE (Negative); SA Nasal PCR NEGATIVE (Negative)
[2020-06-28 11:12] VITALS: BP 104/57; PULSE 72; RESP 22; TEMP 36.5; O2SAT 90
--- NOTE | 2020-06-28 13:38 | HO.PM.IMPN ---
Subjective Subjective Date of Service: 06/28/20 Interval History: Patient seen and examined for acute hypoxic respiratory failure related to recent COVID infection. She continued to be very hypoxic and is now on non rebreather. Review of Systems Gen: no fever Resp: + sob, no cough CV: no chest, no TONY, no leg edema GI: No n/v, no abd pain Neuro: No confusion Constitutional Constitutional: Reports night sweats Gastrointestinal Gastrointestinal: Reports abdominal pain Physical Exam Vital Signs: Vital Signs: Last Vital Signs Temp 97.7 F 06/28/20 11:12 Pulse 72 06/28/20 11:12 Resp 22 H 06/28/20 11:12 BP 104/57 L 06/28/20 11:12 Pulse Ox 90 L 06/28/20 11:12 Oxygen Flow Rate 2 06/25/20 19:03 Body Mass Index 20.5 Const: Other: Patient of somnolent but agitated when woken and response to verbal and painful stimuli adjust as stay awake long enough to answer questions General: cooperative and alert Chest: Chest palpation & inspection: normal inspection of the chest Resp: Other: on non-rebreather Effort & Inspection: normal respiratory effort Auscultation: rales, no rhonchi, no wheezes and diminished lung sounds Cardio: Rate: regular rate Rhythm: regular rhythm Heart sounds: S1 normal heart sound present and S2 normal heart sound present GI: Palpation (GI): Soft to palpation and nontender Auscultation: normal bowel sounds : General: Yes no CVA tenderness Back/Spine/Pelvis: Back: no CVA tenderness Neuro: Cognition (Neuro): normal cognition Extrem: General: Yes normal to inspection and Yes no pedal edema Objective Data Current Medications Generic Name Dose Route Start Last Admin Trade Name Freq PRN Reason Stop Dose Admin Acetaminophen 650 mg 06/26/20 02:23 06/27/20 03:14 Acetaminophen 325 Mg Tablet PO 650 mg Q6H PRN Administration Pain, Mild (Pain Scale 1-3) Al Hydroxide/Mg Hydroxide 15 ml 06/26/20 17:47 06/26/20 18:08 Magnesium Hydrox/Alum Hydrox 30 Ml Oral.Susp PO 15 ml Q4H PRN Administration Heartburn Diphenhydramine HCl 25 mg 06/26/20 11:16 06/28/20 11:32 Diphenhydramine Hcl 50 Mg/Ml Vial IVPUSH 25 mg Q6H PRN Administration pruritis Docusate Sodium 100 mg 06/26/20 02:23 Docusate Sodium 100 Mg Capsule PO DAILY PRN Constipation Enoxaparin Sodium 40 mg 06/26/20 04:00 06/28/20 03:30 Enoxaparin Sodium 40 Mg/0.4 Ml Syringe SUBCUT Not Given Q24H PHILLIP Hydromorphone HCl 0.5 mg 06/26/20 02:23 06/28/20 12:11 Hydromorphone Hcl 0.5 Mg/0.5 Ml Syringe IVPUSH 0.5 mg Q4H PRN Administration Pain, Severe (Pain Scale 7-10) Lactated Ringer's 1,000 mls @ 80 mls/hr 06/26/20 07:00 06/28/20 03:46 Lr IVCONT 80 mls/hr .[id number] PHILLIP Administration Ceftriaxone Sodium 1 gm/ 50 mls @ 100 mls/hr 06/26/20 17:00 06/27/20 17:20 Sodium Chloride IV Infused Q24H PHILLIP Infusion Lorazepam 0.25 mg 06/26/20 16:00 06/27/20 07:28 Lorazepam 0.5 Mg Tablet PO 0.25 mg Q8H PRN Administration anxiety Methylprednisolone Sodium Succinate 80 mg 06/27/20 12:30 06/28/20 11:24 Methylprednisolone Sod Succ 125 Mg/2 Ml Vial IVPUSH 80 mg Q8H PHILLIP Administration Nicotine Polacrilex 2 mg 06/26/20 11:15 06/28/20 08:33 Nicotine Polacrilex 2 Mg Gum BUCCAL 2 mg Q1H PRN Administration withdrawl Ondansetron HCl 4 mg 06/26/20 02:23 Ondansetron Hcl 4 Mg/2 Ml Vial IVPUSH Q8H PRN Nausea and Vomiting Oxycodone HCl 5 mg 06/26/20 02:23 06/28/20 06:14 Oxycodone Hcl Immed Release 5 Mg Tablet PO 5 mg Q6H PRN Administration Pain, Severe (Pain Scale 7-10) Pharmacy Consult 1 each 06/26/20 06:52 Consult Rx Vancomycin Dosing MISCELLANE DAILY PRN Consult order Sodium Chloride 3 ml 06/26/20 08:00 06/28/20 08:16 0.9 % Sodium Chloride Flush 3 Ml Syringe IVFLUSH Not Given QSHIFT PHILLIP Labs CBC & Chem 7: 06/27/20 17:53 06/27/20 17:53 Microbiology Microbiology Results: Microbiology 06/25/20 20:24 Blood - Venous Blood Culture - Preliminary No growth after 48 hours. 06/25/20 20:02 Blood - Venous Blood Culture - Preliminary No growth after 48 hours. Assessment and Plan (1) Acute respiratory failure with hypoxia: Problem details: She has possible sickle disease as well as possible bacterial pneumonia Status: Acute (2) Pneumonia due to 2019 novel coronavirus: Status: Acute Assessment and Plan: 50-year-old female with sickle cell disease and recently diagnosed pneumonia secondary to COVID-19 presents to the hospital with shortness of breath Acute hypoxic respiratory failure. likely from post covid inflamatory changes vs acute superimposed penumonia -IV steroid as recommended by Pulmonary -O2 -IV Abx as recommended by ID -MRSA nasal screen and if negative dc Vanco Sickle cell crisis-- -check CBC -Transfuse -IVF oxygen a -Pain medications Smoker -NRT
[2020-06-28 15:20] VITALS: BP 123/72; PULSE 68; RESP 26; TEMP 36.8; O2SAT 100
[2020-06-28] MEDS: LORazepam 0.5 MG TABLET 0.25 MG PO (16:15)
[2020-06-28] MEDS: cefTRIAXone sodium 1 GM in 0.9 % Sodium Chloride 50 ML IV (16:16)
[2020-06-28 19:21] VITALS: BP 121/58; PULSE 75; RESP 18; TEMP 36.6; O2SAT 99
--- NOTE | 2020-06-28 22:25 | PC.NURSE ---
Patient is requsting medication to help sleep,already on dilaudid,ativan,benadryl and oxycodone.Dr Barron notified, not going to add anything else since patient takes all mentioned meds and is having severe SOB.
[2020-06-28 23:37] VITALS: BP 146/69; PULSE 67; RESP 18; TEMP 36.9; O2SAT 100
[2020-06-29] VITALS (9 sets, daily range): BP systolic 121–169; BP diastolic 58–93; PULSE 52–69; RESP 18–28; TEMP 35.9–36.8; O2SAT 93–100
[2020-06-29] MEDS: HYDROmorphone HCl 0.5 MG/0.5 ML SYRINGE IVPUSH ×6 (00:07→22:41)
[2020-06-29] MEDS: LORazepam 0.5 MG TABLET 0.25 MG PO ×2 (00:11→09:20)
[2020-06-29] MEDS: Lactated Ringers 1,000 ML 80 ML IVCONT (04:24)
[2020-06-29] MEDS: methylPREDNISolone Sod Succ 125 MG/2 ML VIAL 80 MG IVPUSH ×3 (04:24→19:47)
[2020-06-29] MEDS: diphenhydrAMINE HCL 50 MG/ML VIAL 25 MG IVPUSH ×3 (04:34→19:46)
[2020-06-29] MEDS: oxyCODONE HCl Immed Release 5 MG TABLET PO ×3 (07:32→19:46)
--- NOTE | 2020-06-29 09:10 | P.PNPL_ITS ---
Subjective Subjective Date of Service: 06/29/20 Interval history: The patient was seen and examined. She has had worsening respiratory symptoms now on a non-rebreather and high-flow. She did have a blood gas which was reassuring with elevated PA O2 although significant decrease in the CO2 due to hyperventilation. Her chest x-ray still demonstrating areas of ground-glass opacities but some areas density than others. Her white count was still elevated although she is on high-dose Solu-Medrol. She is currently on ceftriaxone. Will be reasonable to treat for postviral Staph aureus bacteria infections at this time in view of her worsening findings. Objective Data Labs CBC & Chem 7: 06/27/20 17:53 06/27/20 17:53 Labs: Laboratory Results - last 24 hr 06/27/20 06/29/20 06/29/20 18:39 06:18 08:26 WBC Cancelled RBC Cancelled Hgb Cancelled Hct Cancelled MCV Cancelled MCH Cancelled MCHC Cancelled RDW Cancelled Plt Count Cancelled MPV Cancelled Absolute Nucleated RBC Cancelled Nucleated RBC % (auto) Cancelled Nasal Screen MRSA (PCR) NEGATIVE Nasal S. aureus Screen NEGATIVE Nasal MRSA/S.aureus Interp SEE NOTE Blood Type O Positive Antibody Screen NEGATIVE Crossmatch (AHG) See Detail Microbiology Microbiology Results: Microbiology 06/25/20 20:24 Blood - Venous Blood Culture - Preliminary No growth after 48 hours. 06/25/20 20:02 Blood - Venous Blood Culture - Preliminary No growth after 48 hours. Review of Systems Constitutional: Denies night sweats Denies change in voice, Denies lip swelling, Denies mouth pain, Reports nasal congestion, Reports nasal discharge and Denies tongue swelling Cardiovascular: Reports chest pain and Reports dyspnea Respiratory: Reports cough, Reports pain on inspiration, Reports pain with cough, Reports dyspnea and Denies wheezing Gastrointestinal: Denies abdominal pain Musculoskeletal: Denies no additional musculoskeletal complaints Denies Neuro-related abnormal movements Psychiatric: Denies no additional psychiatric complaints Hematologic/Lymphatic: Denies easy bleeding and Denies lymphadenopathy Allergic/Immunologic: Denies lip swelling, Denies tongue swelling and Denies wheezing Physical Exam Vital Signs: Vital Signs: Last Vital Signs Temp 97 F 06/29/20 07:24 Pulse 68 06/29/20 07:24 Resp 21 H 06/29/20 07:24 BP 134/86 06/29/20 07:24 Pulse Ox 96 06/29/20 07:24 Oxygen Flow Rate 2 06/25/20 19:03 Body Mass Index 20.5 Const: General: tired appearing Neck: Neck: Yes normal visual inspection, Yes full ROM and Yes no lympha denopathy Chest: Chest palpation & inspection: normal inspection of the chest Resp: Auscultation: rales and diminished lung sounds Cardio: Rate: regular rate Rhythm: regular rhythm Heart sounds: S1 normal heart sound present and S2 normal heart sound present GI: Palpation (GI): Soft to palpation and nontender Auscultation: normal bowel sounds Skin: General skin exam: rashes and/or lesions noted Assessment and Plan Assessment and plan (1) Acute respiratory failure with hypoxia: Problem details: She has possible sickle disease as well as possible bacterial pneumonia Status: Acute (2) Pneumonia due to 2019 novel coronavirus: Status: Acute (3) Sepsis: Status: Acute (4) Sickle cell anemia with crisis: Status: Acute Assessment and Plan: Start vancomycin empirically, monitor WBC Continue IV Solu-Medrol May benefit from blood transfusion specially if hemoglobin drops further Time Spent With Patient Time: Total time spent is greater than 50% in coordination of care (as documented) at patient's floor/unit and/or counseling patient: Time with patient: 15 - 24 minutes
--- NOTE | 2020-06-29 09:27 | HO.PM.IMPN ---
Subjective Subjective Date of Service: 06/29/20 Interval History: Patient seen and examined for acute hypoxic respiratory failure related to recent COVID infection. Persistent hypoxia but maintaining oxygen saturation on non-rebreather and nasal cannula and presently saturating 96% Review of Systems Gen: no fever Resp: + sob, n= cough CV: no chest, no TONY, no leg edema GI: No n/v, no abd pain Neuro: No confusion Physical Exam Vital Signs: Vital Signs: Last Vital Signs Temp 97 F 06/29/20 07:24 Pulse 68 06/29/20 07:24 Resp 21 H 06/29/20 07:24 BP 134/86 06/29/20 07:24 Pulse Ox 96 06/29/20 07:24 Oxygen Flow Rate 2 06/25/20 19:03 Body Mass Index 20.5 General: AO X 3, no acute distress Resp: CTA bilateral CVS: S1,S2,RRR GI: +BS, NT, no distention Skin: No rash Neuro: motor grossly intact Psych: appropriate affect Objective Data Current Medications Generic Name Dose Route Start Last Admin Trade Name Freq PRN Reason Stop Dose Admin Acetaminophen 650 mg 06/26/20 02:23 06/27/20 03:14 Acetaminophen 325 Mg Tablet PO 650 mg Q6H PRN Administration Pain, Mild (Pain Scale 1-3) Al Hydroxide/Mg Hydroxide 15 ml 06/26/20 17:47 06/26/20 18:08 Magnesium Hydrox/Alum Hydrox 30 Ml Oral.Susp PO 15 ml Q4H PRN Administration Heartburn Diphenhydramine HCl 25 mg 06/26/20 11:16 06/29/20 04:34 Diphenhydramine Hcl 50 Mg/Ml Vial IVPUSH 25 mg Q6H PRN Administration pruritis Docusate Sodium 100 mg 06/26/20 02:23 Docusate Sodium 100 Mg Capsule PO DAILY PRN Constipation Enoxaparin Sodium 40 mg 06/26/20 04:00 06/29/20 04:30 Enoxaparin Sodium 40 Mg/0.4 Ml Syringe SUBCUT Not Given Q24H PHILLIP Hydromorphone HCl 0.5 mg 06/26/20 02:23 06/29/20 08:45 Hydromorphone Hcl 0.5 Mg/0.5 Ml Syringe IVPUSH 0.5 mg Q4H PRN Administration Pain, Severe (Pain Scale 7-10) Ceftriaxone Sodium 1 gm/ 50 mls @ 100 mls/hr 06/26/20 17:00 06/28/20 16:52 Sodium Chloride IV Infused Q24H PHILLIP Infusion Vancomycin HCl 1,000 mg/ 270 mls @ 270 mls/hr 06/29/20 09:15 Sodium Chloride IV Q12H PHILLIP Lorazepam 0.25 mg 06/26/20 16:00 06/29/20 09:20 Lorazepam 0.5 Mg Tablet PO 0.25 mg Q8H PRN Administration anxiety Methylprednisolone Sodium Succinate 80 mg 06/27/20 12:30 06/29/20 04:24 Methylprednisolone Sod Succ 125 Mg/2 Ml Vial IVPUSH 80 mg Q8H PHILLIP Administration Nicotine Polacrilex 2 mg 06/26/20 11:15 06/28/20 08:33 Nicotine Polacrilex 2 Mg Gum BUCCAL 2 mg Q1H PRN Administration withdrawl Ondansetron HCl 4 mg 06/26/20 02:23 Ondansetron Hcl 4 Mg/2 Ml Vial IVPUSH Q8H PRN Nausea and Vomiting Oxycodone HCl 5 mg 06/26/20 02:23 06/29/20 07:32 Oxycodone Hcl Immed Release 5 Mg Tablet PO 5 mg Q6H PRN Administration Pain, Severe (Pain Scale 7-10) Pharmacy Consult 1 each 06/26/20 06:52 Consult Rx Vancomycin Dosing MISCELLANE DAILY PRN Consult order Pharmacy Consult 1 each 06/29/20 09:09 Consult Rx Vancomycin Dosing MISCELLANE DAILY PRN Consult order Sodium Chloride 3 ml 06/26/20 08:00 06/29/20 07:29 0.9 % Sodium Chloride Flush 3 Ml Syringe IVFLUSH Not Given QSHIFT [facility] Labs CBC & Chem 7: 06/27/20 17:53 06/27/20 17:53 Microbiology Microbiology Results: Microbiology 06/25/20 20:24 Blood - Venous Blood Culture - Preliminary No growth after 48 hours. 06/25/20 20:02 Blood - Venous Blood Culture - Preliminary No growth after 48 hours. Assessment and Plan (1) Acute respiratory failure with hypoxia: Problem details: She has possible sickle disease as well as possible bacterial pneumonia Status: Acute (2) Pneumonia due to 2019 novel coronavirus: Status: Acute Assessment and Plan: 50-year-old female with sickle cell disease and recently diagnosed pneumonia secondary to COVID-19 presents to the hospital with shortness of breath Acute hypoxic respiratory failure. likely from post covid inflamatory changes vs acute superimposed penumonia, persistent hypoxia but not worse, she is very alert, with no change in mentation -continue IV steroid as recommended by Pulmonary -O2 -IV Abx as recommended by ID -MRSA nasal screen is negative so DC Vanco -ICU aware of patient, in the event that she get worse. Sickle cell crisis--impovemevt -check CBC -Transfuse -IVF oxygen a -Pain medications with dilaudid and Oxycodone - Smoker -NRT
[2020-06-29] MEDS: Benzonatate 100 MG CAPSULE PO ×2 (11:24→19:46)
[2020-06-29] MEDS: Magnesium Hydrox/Alum Hydrox 30 ML ORAL.SUSP PO (11:24)
--- NOTE | 2020-06-29 11:26 | MHC.CM.PN ---
Patient is not yet medically cleared for dc, per ROUNDS discussion (IV Ceftriaxone, IV Benadryl, IV Dilaudid, IV Solu Medrol, NRB/O2). Patient's goal is to return to a hotel and CM will continue to follow for possible need to adjust the dc plan.
[2020-06-29] MEDS: Docusate Sodium 100 MG CAPSULE PO (13:24)
--- NOTE | 2020-06-29 13:35 | PM.IDPN ---
Subjective Subjective Date of Service: 06/29/20 Interval History: patient looks sick she is on 100%NRB with 3 l nc she is HIV negative and MRSA PCR negative she is on day 5 Ceftriaxone Objective Data Labs CBC & Chem 7: 07/09/20 06:54 07/09/20 06:54 Labs: Laboratory Results - last 24 hr 06/29/20 06/29/20 06:18 08:26 WBC Cancelled RBC Cancelled Hgb Cancelled Hct Cancelled MCV Cancelled MCH Cancelled MCHC Cancelled RDW Cancelled Plt Count Cancelled MPV Cancelled Absolute Nucleated RBC Cancelled Nucleated RBC % (auto) Cancelled Blood Type O Positive Antibody Screen NEGATIVE Crossmatch (AHG) See Detail Microbiology Microbiology Results: Microbiology 06/25/20 20:24 Blood - Venous Blood Culture - Preliminary No growth after 48 hours. 06/25/20 20:02 Blood - Venous Blood Culture - Preliminary No growth after 48 hours. Physical Exam Vital Signs: Vital Signs: Last Vital Signs Temp 97 F 06/29/20 11:26 Pulse 59 06/29/20 11:26 Resp 20 06/29/20 11:26 BP 127/79 06/29/20 11:26 Pulse Ox 96 06/29/20 07:24 Oxygen Flow Rate 2 06/25/20 19:03 Body Mass Index 20.5 Const: General: cooperative HENMT: Head: Yes normal to inspection Resp: Effort & Inspection: abnormal respiratory pattern Cardio: Rate: regular rate Rhythm: regular rhythm GI: Palpation (GI): nontender Extrem: General: Yes normal to inspection Assessment and Plan Assessment and plan (1) Acute respiratory failure with hypoxia: Status: Acute Assessment and Plan: Add Doxycycline atypical Continue Ceftriaxone,day 06/29 likely Prognosis guarded Time Spent With Patient Time: Total time spent is greater than 50% in coordination of care (as documented) at patient's floor/unit and/or counseling patient: Time with patient: 15 - 24 minutes
[2020-06-29 13:38] LABS: Hemoglobin 7.2 g/dl (12.0-16.0); Mean Corpuscular Hemoglobin 32.7 pg (27.0-33.0); Mean Corpuscular Volume 93.6 fL (80-98); PLT CLUMP 1; Red Cell Distribution Width 18.9 % (11.0-16.0)
[2020-06-29 13:58] LABS: NRBC Pct Auto 4.8 /100WBC (0.0-0.2); White Blood Count 17.4 X10*3/uL (4.8-10.8)
[2020-06-29 14:00] LABS: Hematocrit 20.6 % (37-47)
[2020-06-29 14:04] LABS: Platelet Count 139 X10*3/uL (160-400)
[2020-06-29 14:12] LABS: Anion Gap 14 (12-20); Blood Urea Nitrogen 16 mg/dL (9-16); Calcium 8.5 mg/dL (8.4-10.2); Carbon Dioxide 22 mmol/L (22-29); Chloride 110 mmol/L (96-108); Creatinine Clr Calc Pharmacy 77.9; Estimated Glomerular Filt Rate > 60; Glucose Random 119 mg/dL (60-115); Potassium 4.5 mmol/L (3.3-5.1); Sodium 141 mmol/L (135-145)
[2020-06-29] MEDS: Doxycycline Hyclate 100 MG in 0.9 % Sodium Chloride 250 ML 166.67 MG IV (14:18)
[2020-06-29] MEDS: 0.9 % Sodium Chloride Flush 3 ML SYRINGE IVFLUSH ×2 (16:11→19:49)
[2020-06-29] MEDS: cefTRIAXone sodium 1 GM in 0.9 % Sodium Chloride 50 ML IV (16:59)
[2020-06-29] MEDS: HYDROmorphone HCl 1 MG/ML SYRINGE IM (20:37)
[2020-06-29 22:18] LABS: Vancomycin Trough < 3.0 mcg/mL (10.0-20.0)
[2020-06-29] MEDS: Nicotine Polacrilex 2 MG GUM BUCCAL (23:06)
[2020-06-30] VITALS (8 sets, daily range): BP systolic 129–158; BP diastolic 74–88; PULSE 52–86; RESP 14–21; TEMP 36.1–36.6; O2SAT 77–97
--- NOTE | 2020-06-30 | ECG_ITS ---
Test Reason : VERIFY RHYTHM Blood Pressure : / mmHG Vent. Rate : 064 BPM Atrial Rate : 064 BPM P-R Int : 124 ms QRS Dur : 104 ms QT Int : 466 ms P-R-T Axes : 040 018 043 degrees QTc Int : 480 ms Normal sinus rhythm Prolonged QT Abnormal ECG When compared to the previous EKG of QT has lengthened Referred By: Donny Barron Electronically Signed By:Sujit Goddard
[2020-06-30] MEDS: oxyCODONE HCl Immed Release 5 MG TABLET PO ×3 (01:59→21:05)
[2020-06-30] MEDS: LORazepam 0.5 MG TABLET 0.25 MG PO ×2 (01:59→21:08)
[2020-06-30] MEDS: diphenhydrAMINE HCL 50 MG/ML VIAL 25 MG IVPUSH ×2 (01:59→21:10)
[2020-06-30] MEDS: Doxycycline Hyclate 100 MG in 0.9 % Sodium Chloride 250 ML 166.67 MG IV ×2 (02:07→13:44)
[2020-06-30] MEDS: Enoxaparin Sodium 40 MG/0.4 ML SYRINGE SUBCUT (03:41)
[2020-06-30] MEDS: methylPREDNISolone Sod Succ 125 MG/2 ML VIAL 80 MG IVPUSH ×2 (03:41→11:57)
[2020-06-30] MEDS: HYDROmorphone HCl 0.5 MG/0.5 ML SYRINGE IVPUSH ×5 (03:43→21:07)
[2020-06-30] MEDS: 0.9 % Sodium Chloride Flush 3 ML SYRINGE IVFLUSH ×3 (07:54→21:23)
[2020-06-30] MEDS: Omeprazole 40 MG CAPSULE.DR PO (09:58)
[2020-06-30] MEDS: hydrOXYzine HCL 25 MG TABLET PO ×2 (09:58→16:42)
[2020-06-30] MEDS: Docusate Sodium 100 MG CAPSULE PO ×2 (09:58→21:04)
[2020-06-30] MEDS: methylPREDNISolone Sod Succ 125 MG/2 ML VIAL 60 MG IVPUSH (16:25)
[2020-06-30] MEDS: cefTRIAXone sodium 1 GM in 0.9 % Sodium Chloride 50 ML IV (16:26)
--- NOTE | 2020-06-30 16:36 | P.PNIM_ITS ---
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 ROS General no headache ,no dizziness,, no fever chills. CVS no chest pain, no palpitation. Respiratory no cough no sob. Gastrointestinal no nausea no vomiting, abdominal pain + constipation. Physical Exam Vital Signs: Vital Signs: Last Vital Signs Temp 97.5 F 06/30/20 15:15 Pulse 57 06/30/20 15:15 Resp 20 06/30/20 15:15 BP 158/87 H 06/30/20 15:15 Pulse Ox 96 06/30/20 15:15 Oxygen Flow Rate 2 06/25/20 19:03 Body Mass Index 20.5 General no acute distress,eating bf. Neck no JVD. CVS regular rate rhythm, Respiratory lungs clear to auscultation, no respiratory distress, no wheeze, no rhonchi. Gastrointestinal abdomen soft, nontender, bowel sounds audible, no guarding , no rigidity. Extremities no edema. Neuro nonfocal , speech clear. Psych appropriate affect Objective Data Current Medications Generic Name Dose Route Start Last Admin Trade Name Freq PRN Reason Stop Dose Admin Acetaminophen 650 mg 06/26/20 02:23 06/27/20 03:14 Acetaminophen 325 Mg Tablet PO 650 mg Q6H PRN Administration Pain, Mild (Pain Scale 1-3) Al Hydroxide/Mg Hydroxide 15 ml 06/26/20 17:47 06/26/20 18:08 Magnesium Hydrox/Alum Hydrox 30 Ml Oral.Susp PO 15 ml Q4H PRN Administration Heartburn Al Hydroxide/Mg Hydroxide 30 ml 06/29/20 11:05 06/29/20 11:24 Magnesium Hydrox/Alum Hydrox 30 Ml Oral.Susp PO 30 ml Q6H PRN Administration heart burn Al Hydroxide/Mg Hydroxide 15 ml 06/30/20 09:28 Magnesium Hydrox/Alum Hydrox 30 Ml Oral.Susp PO Q6H PRN Dyspepsia Benzonatate 100 mg 06/29/20 11:05 06/29/20 19:46 Benzonatate 100 Mg Capsule PO 100 mg TID PRN Administration Cough Diphenhydramine HCl 25 mg 06/26/20 11:16 06/30/20 01:59 Diphenhydramine Hcl 50 Mg/Ml Vial IVPUSH 25 mg Q6H PRN Administration pruritis Docusate Sodium 100 mg 06/26/20 02:23 06/30/20 09:58 Docusate Sodium 100 Mg Capsule PO 100 mg DAILY PRN Administration Constipation Docusate Sodium 100 mg 06/30/20 21:00 Docusate Sodium 100 Mg Capsule PO BID [facility] Enoxaparin Sodium 40 mg 06/26/20 04:00 06/30/20 03:41 Enoxaparin Sodium 40 Mg/0.4 Ml Syringe SUBCUT 40 mg Q24H [facility] Administration Hydromorphone HCl 0.5 mg 06/26/20 02:23 06/30/20 16:34 Hydromorphone Hcl 0.5 Mg/0.5 Ml Syringe IVPUSH 0.5 mg Q4H PRN Administration Pain, Severe (Pain Scale 7-10) Hydroxyurea 500 mg 06/30/20 21:00 Hydroxyurea 500 Mg Capsule PO BID PHILLIP Hydroxyzine HCl 25 mg 06/30/20 09:26 06/30/20 09:58 Hydroxyzine Hcl 25 Mg Tablet PO 25 mg QID PRN Administration anxiety Ceftriaxone Sodium 1 gm/ 50 mls @ 100 mls/hr 06/26/20 17:00 06/30/20 16:26 Sodium Chloride IV 100 mls/hr Q24H [facility] Administration Doxycycline Hyclate 100 mg/ 250 mls @ 166.67 mls/hr 06/29/20 14:00 06/30/20 15:24 Sodium Chloride IV Infused Q12H [facility] Infusion Lactulose 10 gm 06/30/20 09:27 Lactulose 20 Gm/30 Ml Solution PO DAILY PRN constipation Lorazepam 0.25 mg 06/26/20 16:00 06/30/20 01:59 Lorazepam 0.5 Mg Tablet PO 0.25 mg Q8H PRN Administration anxiety Methylprednisolone Sodium Succinate 60 mg 06/30/20 15:53 06/30/20 16:25 Methylprednisolone Sod Succ 125 Mg/2 Ml Vial IVPUSH 60 mg Q8H [facility] Administration Nicotine Polacrilex 2 mg 06/26/20 11:15 06/29/20 23:06 Nicotine Polacrilex 2 Mg Gum BUCCAL 2 mg Q1H PRN Administration withdrawl Omeprazole 40 mg 06/30/20 09:30 06/30/20 09:58 Omeprazole 40 Mg Capsule.Dr PO 40 mg DAILY@0630 [facility] Administration Ondansetron HCl 4 mg 06/26/20 02:23 Ondansetron Hcl 4 Mg/2 Ml Vial IVPUSH Q8H PRN Nausea and Vomiting Oxycodone HCl 5 mg 06/26/20 02:23 06/30/20 10:02 Oxycodone Hcl Immed Release 5 Mg Tablet PO 5 mg Q6H PRN Administration Pain, Severe (Pain Scale 7-10) Pharmacy Consult 1 each 06/26/20 06:52 Consult Rx Vancomycin Dosing MISCELLANE DAILY PRN Consult order Pharmacy Consult 1 each 06/29/20 09:09 Consult Rx Vancomycin Dosing MISCELLANE DAILY PRN Consult order Sodium Chloride 3 ml 06/26/20 08:00 06/30/20 16:26 0.9 % Sodium Chloride Flush 3 Ml Syringe IVFLUSH 3 ml QSHIFT [facility]IP Administration Labs CBC & Chem 7: 06/29/20 13:17 06/29/20 13:17 Microbiology Microbiology Results: Microbiology 06/25/20 20:24 Blood - Venous Blood Culture - Preliminary No growth after 48 hours. 06/25/20 20:02 Blood - Venous Blood Culture - Preliminary No growth after 48 hours. Assessment and Plan (1) Acute respiratory failure with hypoxia: Problem details: She has possible sickle disease as well as possible bacterial pneumonia She has worsening respiratory status There is no MRSA seen She probably has lung damage from COVID Status: Acute (2) Pneumonia due to 2019 novel coronavirus: Status: Acute (3) Sickle cell anemia with crisis: Status: Acute (4) Hypoxia: Status: Acute Assessment and Plan: 50-year-old female with sickle cell disease and recently diagnosed pneumonia secondary to COVID-19 presents to the hospital with shortness of breath Acute hypoxic respiratory failure. likely from post covid inflamatory changes chest x-ray showed diffuse bilateral disease no change, persistent stable hypoxia Will encourage incentive spirometry,continue IV steroid as recommended by Pulmonary Continue IV ceftriaxone and doxycycline as recommended by ID MRSA nasal screen is negative, encourage out of bed to chair Sickle cell crisis--appears comfortable, status post blood transfusion will follow CBC Continue Pain medications with dilaudid and Oxycodone, resume hydroxyurea Abdominal pain Likely due to constipation with use of high-dose narcotic, will add stool softeners and lactulose Smoker Counseling done History of bipolar disorder not on any medication GERD continue Prilosec DVT prophylaxis will place on compression boots
[2020-06-30] MEDS: Lactulose 20 GM/30 ML SOLUTION 10 GM PO (16:42)
--- NOTE | 2020-06-30 16:48 | PC.NURSE ---
Pt very irritable most of the day with care. Gets very upset when we have to assess pt. Tried to lower pt o2 - desats when off nonrebreather. Pt keeps taking off mask and will desat to the 40s-70s when staff quickly gets to room she has mask on her head and is alert enough to put it back on when staff instructs her to do so. Tried to educate pt on importance - pt not participating at this time. Doesnt want to hear it. Pt complaining of constipation - prn colace admin am with no BM yet, just gave prn lactulose ~1630 effectiveness pending. Pt will be asleep and Rn to wake her to asses and pt crying saying she is 10/10 pain, stating she hasnt seen a dr. and that we are all just messing with her Rn discussed with pt that the MD was in fact here, pt states RN wasnt here this am and that RN isnt a dr so doesnt know Discussed that if we can respectfully have a conversation about her care I can communicate with the MD as well, pt states she doesnt care what I have to say. Pt being very difficult with many attempts of communication from [facility] staff members. Told us to kiss her old black ass when RN trying to ask simple assessment questions. Pt has telesitter in place, nonrebreather on, cont pulseox on. Sat currently 90% at this time. Will cont with current plan.
[2020-06-30] MEDS: Acetaminophen 325 MG TABLET 650 MG PO (17:11)
[2020-06-30 20:40] LABS: Anion Gap 14 (12-20); Blood Urea Nitrogen 22 mg/dL (9-16); Calcium 8.6 mg/dL (8.4-10.2); Carbon Dioxide 23 mmol/L (22-29); Chloride 107 mmol/L (96-108); Creatinine Clr Calc Pharmacy 67.2; Estimated Glomerular Filt Rate > 60; Glucose Random 138 mg/dL (60-115); Potassium 4.2 mmol/L (3.3-5.1); Sodium 140 mmol/L (135-145)
[2020-06-30] MEDS: Hydroxyurea 500 MG CAPSULE PO (21:01)
[2020-06-30] MEDS: Benzonatate 100 MG CAPSULE PO (21:04)
[2020-07-01] VITALS (12 sets, daily range): BP systolic 128–156; BP diastolic 66–92; PULSE 53–80; RESP 16–21; TEMP 36.2–36.7; O2SAT 88–100
[2020-07-01] MEDS: methylPREDNISolone Sod Succ 40 MG/ML VIAL IVPUSH ×3 (01:44→14:05)
[2020-07-01] MEDS: HYDROmorphone HCl 0.5 MG/0.5 ML SYRINGE IVPUSH ×5 (01:51→20:05)
[2020-07-01] MEDS: hydrOXYzine HCL 25 MG TABLET PO ×3 (01:53→15:42)
[2020-07-01] MEDS: Doxycycline Hyclate 100 MG in 0.9 % Sodium Chloride 250 ML 166.67 MG IV ×2 (02:01→14:05)
[2020-07-01] MEDS: oxyCODONE HCl Immed Release 5 MG TABLET PO (03:28)
[2020-07-01] MEDS: diphenhydrAMINE HCL 50 MG/ML VIAL 25 MG IVPUSH (04:40)
[2020-07-01] MEDS: Acetaminophen 325 MG TABLET 650 MG PO (04:40)
[2020-07-01] MEDS: Omeprazole 40 MG CAPSULE.DR PO (05:50)
--- NOTE | 2020-07-01 06:03 | PC.NURSE ---
During the night pt had intermittent periods of sinus bradycardia dropping into high 40's. Pt was asymptomatic. Overnight mD notified and not ordered were given. Continue to monitor
[2020-07-01 07:27] LABS: Hematocrit 22.3 % (37-47); Mean Corpuscular HGB Conc 35.9 g/dl (31.0-35.0); Mean Corpuscular Hemoglobin 32.8 pg (27.0-33.0); Mean Corpuscular Volume 91.4 fL (80-98); Platelet Count 124 X10*3/uL (160-400); Red Blood Count 2.44 X10*6/uL (4.20-5.50); Red Cell Distribution Width 19.3 % (11.0-16.0)
[2020-07-01 07:31] LABS: NRBC Pct Auto 7.6 /100WBC (0.0-0.2); PLT ABN DIST 1; WBC ABN SCTR FOR CBC 1
[2020-07-01 07:50] LABS: Anion Gap 16 (12-20); Blood Urea Nitrogen 22 mg/dL (9-16); Calcium 8.5 mg/dL (8.4-10.2); Carbon Dioxide 22 mmol/L (22-29); Chloride 105 mmol/L (96-108); Creatinine Clr Calc Pharmacy 72.2; Estimated Glomerular Filt Rate > 60; Glucose Random 152 mg/dL (60-115); Potassium 3.8 mmol/L (3.3-5.1); Sodium 139 mmol/L (135-145)
[2020-07-01 08:14] LABS: Band Neutrophils Percent 5 % (3-5); Lymphocytes Percent Manual 4 % (20-40); Monocytes Percent Manual 7 % (2-11); Neutrophils Percent Manual 84 % (45-73); Nucleated Red Blood Cells 14 /100WBC (0-0)
[2020-07-01 08:23] LABS: Howell Jolly Bodies PRESENT; Hypochromasia 1+ (5-14) /OIF; Macrocytosis 1+ (5-14) /OIF; Microcytosis 1+ (5-14) /OIF; Pappenheimer Bodies PRESENT; Platelet Estimate DECREASED (NORMAL); Polychromasia 1+ (0-2) /OIF; RBC Morphology NOTED; Schistocytes 1+ (0-2) /OIF; Sickle Cells 1+ (0-2) /OIF; Spherocytes 1+ (0-2) /OIF; Target Cells 1+ (5-14) /OIF
[2020-07-01 08:24] LABS: Large Platelet PRESENT; Platelet Morphology Comment NOTED
[2020-07-01] MEDS: Docusate Sodium 100 MG CAPSULE PO ×2 (08:31→20:03)
[2020-07-01] MEDS: LORazepam 0.5 MG TABLET 0.25 MG PO ×2 (08:31→20:03)
[2020-07-01] MEDS: Hydroxyurea 500 MG CAPSULE PO ×2 (08:32→20:02)
[2020-07-01] MEDS: 0.9 % Sodium Chloride Flush 3 ML SYRINGE IVFLUSH ×3 (08:32→20:06)
[2020-07-01 08:36] LABS: Lymphocytes Absolute Manual 0.5 X10*3/uL (0.6-4.8); Monocytes Absolute Manual 0.9 X10*3/uL (0.0-1.2); Neutrophils Absolute Manual 11.5 X10*3/uL (2.2-7.9); White Blood Count 12.9 X10*3/uL (4.8-10.8)
[2020-07-01] MEDS: Nicotine Polacrilex 2 MG GUM 4 MG BUCCAL (10:09)
--- NOTE | 2020-07-01 10:16 | HO.PM.IMPN ---
Subjective Subjective Date of Service: 07/01/20 Interval History: Patient sitting comfortably eating breakfast, complaining of chest wall pain asking for Dilaudid, no acute issues overnight oxygenation stable 97% on nasal cannula. ROS General no headache ,no dizziness,, no fever chills. CVS no chest pain, no palpitation. Respiratory no cough no sob. Gastrointestinal no nausea no vomiting,no abdominal pain. Physical Exam Vital Signs: Vital Signs: Last Vital Signs Temp 97.9 F 07/01/20 07:03 Pulse 56 07/01/20 07:03 Resp 16 07/01/20 08:31 BP 150/81 H 07/01/20 07:03 Pulse Ox 93 07/01/20 09:02 Oxygen Flow Rate 2 06/25/20 19:03 Body Mass Index 20.5 General no acute distress,eating bf. Neck no JVD. CVS regular rate rhythm, Respiratory lungs clear to auscultation, no respiratory distress, no wheeze, no rhonchi. Gastrointestinal abdomen soft, nontender, bowel sounds audible, no guarding , no rigidity. Extremities no edema. Neuro nonfocal , speech clear. Psych appropriate affect Objective Data Current Medications Generic Name Dose Route Start Last Admin Trade Name Freq PRN Reason Stop Dose Admin Acetaminophen 650 mg 06/26/20 02:23 07/01/20 04:40 Acetaminophen 325 Mg Tablet PO 650 mg Q6H PRN Administration Pain, Mild (Pain Scale 1-3) Al Hydroxide/Mg Hydroxide 15 ml 06/26/20 17:47 06/26/20 18:08 Magnesium Hydrox/Alum Hydrox 30 Ml Oral.Susp PO 15 ml Q4H PRN Administration Heartburn Al Hydroxide/Mg Hydroxide 30 ml 06/29/20 11:05 06/29/20 11:24 Magnesium Hydrox/Alum Hydrox 30 Ml Oral.Susp PO 30 ml Q6H PRN Administration heart burn Al Hydroxide/Mg Hydroxide 15 ml 06/30/20 09:28 Magnesium Hydrox/Alum Hydrox 30 Ml Oral.Susp PO Q6H PRN Dyspepsia Benzonatate 100 mg 06/29/20 11:05 06/30/20 21:04 Benzonatate 100 Mg Capsule PO 100 mg TID PRN Administration Cough Diphenhydramine HCl 25 mg 06/26/20 11:16 07/01/20 04:40 Diphenhydramine Hcl 50 Mg/Ml Vial IVPUSH 25 mg Q6H PRN Administration pruritis Docusate Sodium 100 mg 06/26/20 02:23 06/30/20 09:58 Docusate Sodium 100 Mg Capsule PO 100 mg DAILY PRN Administration Constipation Docusate Sodium 100 mg 06/30/20 21:00 07/01/20 08:31 Docusate Sodium 100 Mg Capsule PO 100 mg BID PHILLIP Administration Hydromorphone HCl 0.5 mg 06/26/20 02:23 07/01/20 08:31 Hydromorphone Hcl 0.5 Mg/0.5 Ml Syringe IVPUSH 0.5 mg Q4H PRN Administration Pain, Severe (Pain Scale 7-10) Hydroxyurea 500 mg 06/30/20 21:00 07/01/20 08:32 Hydroxyurea 500 Mg Capsule PO 500 mg BID PHILLIP Administration Hydroxyzine HCl 25 mg 06/30/20 09:26 07/01/20 01:53 Hydroxyzine Hcl 25 Mg Tablet PO 25 mg QID PRN Administration anxiety Ceftriaxone Sodium 1 gm/ 50 mls @ 100 mls/hr 06/26/20 17:00 06/30/20 17:16 Sodium Chloride IV Infused Q24H [facility] Infusion Doxycycline Hyclate 100 mg/ 250 mls @ 166.67 mls/hr 06/29/20 14:00 07/01/20 03:31 Sodium Chloride IV Infused Q12H [facility] Infusion Lactulose 10 gm 06/30/20 09:27 06/30/20 16:42 Lactulose 20 Gm/30 Ml Solution PO 10 gm DAILY PRN Administration constipation Lorazepam 0.25 mg 06/26/20 16:00 07/01/20 08:31 Lorazepam 0.5 Mg Tablet PO 0.25 mg Q8H PRN Administration anxiety Methylprednisolone Sodium Succinate 40 mg 06/30/20 17:15 07/01/20 08:32 Methylprednisolone Sod Succ 40 Mg/Ml Vial IVPUSH 40 mg Q8H [facility] Administration Nicotine Polacrilex 4 mg 07/01/20 09:58 07/01/20 10:09 Nicotine Polacrilex 2 Mg Gum BUCCAL 4 mg Q2H PRN Administration withdrawl Omeprazole 40 mg 06/30/20 09:30 07/01/20 05:50 Omeprazole 40 Mg Capsule.Dr PO 40 mg DAILY@0630 [facility] Administration Ondansetron HCl 4 mg 06/26/20 02:23 Ondansetron Hcl 4 Mg/2 Ml Vial IVPUSH Q8H PRN Nausea and Vomiting Oxycodone HCl 5 mg 06/26/20 02:23 07/01/20 03:28 Oxycodone Hcl Immed Release 5 Mg Tablet PO 5 mg Q6H PRN Administration Pain, Severe (Pain Scale 7-10) Pharmacy Consult 1 each 06/26/20 06:52 Consult Rx Vancomycin Dosing MISCELLANE DAILY PRN Consult order Pharmacy Consult 1 each 06/29/20 09:09 Consult Rx Vancomycin Dosing MISCELLANE DAILY PRN Consult order Sodium Chloride 3 ml 06/26/20 08:00 07/01/20 08:32 0.9 % Sodium Chloride Flush 3 Ml Syringe IVFLUSH 3 ml QSHIFT [facility] Administration Labs CBC & Chem 7: 07/01/20 06:25 07/01/20 06:24 Microbiology Microbiology Results: Microbiology 06/25/20 20:24 Blood - Venous Blood Culture - Final No growth after 5 days. 06/25/20 20:02 Blood - Venous Blood Culture - Final No growth after 5 days. Assessment and Plan (1) Sickle cell anemia with crisis: Status: Acute (2) Acute respiratory failure with hypoxia: Problem details: She has possible sickle disease as well as possible bacterial pneumonia She has worsening respiratory status There is no MRSA seen She probably has lung damage from COVID Status: Acute (3) Cocaine abuse: Status: Acute (4) Bipolar 1 disorder: Status: Acute Assessment and Plan: 50-year-old female with sickle cell disease and recently diagnosed pneumonia secondary to COVID-19 presents to the hospital with shortness of breath Acute hypoxic respiratory failure. likely from post covid inflamatory changes, chest x-ray showed diffuse bilateral disease no change wean oxygen gradually now on nasal cannula no resp distress Will encourage incentive spirometry,wean IV steroid recommended by Dr. Mendoza. Continue IV ceftriaxone day 5 and doxycycline day 3 as recommended by ID will switch to po at am since afebrile,wbc trending down,leukocytosis likley related to steroids MRSA nasal screen is negative, encourage out of bed to chair Sickle cell crisis--appears comfortable, status post blood transfusion ,repeat hct improved from 20.6 to 22.3 Continue Pain medications with iv dilaudid and Oxycodone, cont. hydroxyurea Abdominal pain Likely due to constipation with use of high-dose narcotic, cont. stool softeners and lactulose Smoker Counseling done,cont nicotine gum History of bipolar disorder not on any medication GERD continue Prilosec DVT prophylaxis on compression boots
[2020-07-01] MEDS: cefTRIAXone sodium 1 GM in 0.9 % Sodium Chloride 50 ML IV (16:41)
--- NOTE | 2020-07-01 17:25 | PC.NURSE ---
Weaned pt off o2 gradually to 4l NC pt current sating mid 90s. Pt was requesting she wanted the nonrebreather and the NC - RN told pt her o2 was stable ans was doing really well withouth the NRB. Pt said she didnt feel SOB but needed it At one point pt pulled off NC and put on non-rebreather which was no longer attached to o2, when seen on telesitter camera RN to room explained to pt that she needs the NC on and that the nonrebreather wasnt connected to o2 anymore. Odd as yesterday pt had nonrebreather and kept pulling it off when she needed it on.... Continuously educated pt on what o2 was for and assessing resp status on pt, lungs clear, no cough no SOB. Pt sleepy most of the day when she wakes up requesting pain medicine, sometimes when just received and when RN returns to room to reasses pt is sound asleep ... then so when RN returns when pt awake pt is very verbally nasty with RNs about her med regimen when she doesnt comprehend what times things are due and just given. RN was also flushing IV with NS and pt relaxed shoulers showing that she felt better from that med, when there was no med given. Pt reporting 20/10 pain, did receive some doses of prn 0.5mg diulad which she states helps. Contradicting some of her own pain reports. Pt did get prn ativan and atarax which seems to help her anxiety. Encouraged IS multiple times to pt, was educated on use yesterday and today , this RN has not seen pt use it on her own yet. Pt pulled off 9 cont pulseox monitors in last 24hr, ok with checking o2 q4 as pt o2 stable today. Telesitter staff aware of need to STAT staff to room is pt appears to have taken off her NC. High fall risk measures remain in place. Will cont w. current plan.
[2020-07-01] MEDS: Lactulose 20 GM/30 ML SOLUTION 10 GM PO (20:04)
[2020-07-02] VITALS (7 sets, daily range): BP systolic 131–158; BP diastolic 69–86; PULSE 60–71; RESP 18–20; TEMP 35.9–36.9; O2SAT 85–93
[2020-07-02] MEDS: hydrOXYzine HCL 25 MG TABLET PO (00:06)
[2020-07-02] MEDS: HYDROmorphone HCl 0.5 MG/0.5 ML SYRINGE IVPUSH ×6 (00:07→22:59)
[2020-07-02] MEDS: methylPREDNISolone Sod Succ 40 MG/ML VIAL IVPUSH (00:08)
[2020-07-02] MEDS: Doxycycline Hyclate 100 MG in 0.9 % Sodium Chloride 250 ML 166.67 MG IV (02:44)
[2020-07-02] MEDS: LORazepam 0.5 MG TABLET 0.25 MG PO ×2 (04:17→20:45)
[2020-07-02] MEDS: Omeprazole 40 MG CAPSULE.DR PO (05:48)
[2020-07-02] MEDS: Hydroxyurea 500 MG CAPSULE PO ×2 (08:49→20:46)
[2020-07-02] MEDS: 0.9 % Sodium Chloride Flush 3 ML SYRINGE IVFLUSH ×3 (08:49→20:46)
[2020-07-02] MEDS: Docusate Sodium 100 MG CAPSULE PO ×2 (08:50→20:45)
[2020-07-02] MEDS: Enoxaparin Sodium 40 MG/0.4 ML SYRINGE SUBCUT (08:50)
[2020-07-02] MEDS: predniSONE 20 MG TABLET 40 MG PO (08:50)
--- NOTE | 2020-07-02 10:09 | MHC.CM.PN ---
DP Female 50 DX Hypoxic respiratory failure/Sickle cell. The plan @ discharge has been home no services with [facility] transport. CM will follow to assess for a change in discharge needs.
[2020-07-02] MEDS: oxyCODONE HCl Immed Release 5 MG TABLET PO (12:28)
[2020-07-02] MEDS: diphenhydrAMINE HCL 50 MG/ML VIAL 25 MG IVPUSH (14:14)
--- NOTE | 2020-07-02 14:54 | P.PNIM_ITS ---
Subjective Subjective Date of Service: 07/02/20 Interval History: ongoing chest wall pain dyspnea improved remains on O2 via NC @ 4 Lpm Physical Exam Vital Signs: Vital Signs: Last Vital Signs Temp 98 F 07/02/20 11:06 Pulse 68 07/02/20 11:06 Resp 19 07/02/20 11:06 BP 152/70 H 07/02/20 11:06 Pulse Ox 86 L 07/02/20 11:06 Oxygen Flow Rate 2 06/25/20 19:03 Body Mass Index 20.5 Gen: in no acute distress HEENT: sclera anicteric, moist mucus membranes Neck: supple Lungs: diminished bilaterally Heart: regular rate and rhythm, no murmurs Abd: soft, non-tender, non-distended Ext: no edema Skin: warm/well-perfused Neuro: alert and oriented x3, no focal findings Psych: appropriate affect Objective Data Current Medications Generic Name Dose Route Start Last Admin Trade Name Freq PRN Reason Stop Dose Admin Acetaminophen 650 mg 06/26/20 02:23 07/01/20 04:40 Acetaminophen 325 Mg Tablet PO 650 mg Q6H PRN Administration Pain, Mild (Pain Scale 1-3) Al Hydroxide/Mg Hydroxide 15 ml 06/26/20 17:47 06/26/20 18:08 Magnesium Hydrox/Alum Hydrox 30 Ml Oral.Susp PO 15 ml Q4H PRN Administration Heartburn Al Hydroxide/Mg Hydroxide 30 ml 06/29/20 11:05 06/29/20 11:24 Magnesium Hydrox/Alum Hydrox 30 Ml Oral.Susp PO 30 ml Q6H PRN Administration heart burn Al Hydroxide/Mg Hydroxide 15 ml 06/30/20 09:28 Magnesium Hydrox/Alum Hydrox 30 Ml Oral.Susp PO Q6H PRN Dyspepsia Benzonatate 100 mg 06/29/20 11:05 06/30/20 21:04 Benzonatate 100 Mg Capsule PO 100 mg TID PRN Administration Cough Diphenhydramine HCl 25 mg 06/26/20 11:16 07/02/20 14:14 Diphenhydramine Hcl 50 Mg/Ml Vial IVPUSH 25 mg Q6H PRN Administration pruritis Docusate Sodium 100 mg 06/26/20 02:23 06/30/20 09:58 Docusate Sodium 100 Mg Capsule PO 100 mg DAILY PRN Administration Constipation Docusate Sodium 100 mg 06/30/20 21:00 07/02/20 08:50 Docusate Sodium 100 Mg Capsule PO 100 mg BID PHILLIP Administration Doxycycline Hyclate 100 mg 07/02/20 08:15 07/02/20 08:49 Doxycycline Hyclate 100 Mg Tablet PO 100 mg Q12H [facility] Administration Enoxaparin Sodium 40 mg 07/02/20 08:15 07/02/20 08:50 Enoxaparin Sodium 40 Mg/0.4 Ml Syringe SUBCUT 40 mg Q24H [facility] Administration Hydromorphone HCl 0.5 mg 06/26/20 02:23 07/02/20 13:27 Hydromorphone Hcl 0.5 Mg/0.5 Ml Syringe IVPUSH 0.5 mg Q4H PRN Administration Pain, Severe (Pain Scale 7-10) Hydroxyurea 500 mg 06/30/20 21:00 07/02/20 08:49 Hydroxyurea 500 Mg Capsule PO 500 mg BID [facility]ILLIP Administration Hydroxyzine HCl 25 mg 06/30/20 09:26 07/02/20 00:06 Hydroxyzine Hcl 25 Mg Tablet PO 25 mg QID PRN Administration anxiety Ceftriaxone Sodium 1 gm/ 50 mls @ 100 mls/hr 06/26/20 17:00 07/01/20 17:34 Sodium Chloride IV Infused Q24H [facility] Infusion Lactulose 10 gm 06/30/20 09:27 07/01/20 20:04 Lactulose 20 Gm/30 Ml Solution PO 10 gm DAILY PRN Administration constipation Lorazepam 0.25 mg 06/26/20 16:00 07/02/20 04:17 Lorazepam 0.5 Mg Tablet PO 0.25 mg Q8H PRN Administration anxiety Nicotine Polacrilex 4 mg 07/01/20 09:58 07/01/20 10:09 Nicotine Polacrilex 2 Mg Gum BUCCAL 4 mg Q2H PRN Administration withdrawl Omeprazole 40 mg 06/30/20 09:30 07/02/20 05:48 Omeprazole 40 Mg Capsule.Dr PO 40 mg DAILY@0630 [facility] Administration Ondansetron HCl 4 mg 06/26/20 02:23 Ondansetron Hcl 4 Mg/2 Ml Vial IVPUSH Q8H PRN Nausea and Vomiting Oxycodone HCl 5 mg 06/26/20 02:23 07/02/20 12:28 Oxycodone Hcl Immed Release 5 Mg Tablet PO 5 mg Q6H PRN Administration Pain, Severe (Pain Scale 7-10) Pharmacy Consult 1 each 06/26/20 06:52 Consult Rx Vancomycin Dosing MISCELLANE DAILY PRN Consult order Pharmacy Consult 1 each 06/29/20 09:09 Consult Rx Vancomycin Dosing MISCELLANE DAILY PRN Consult order Prednisone 40 mg 07/02/20 09:00 07/02/20 08:50 Prednisone 20 Mg Tablet PO 40 mg DAILY [facility] Administration Sodium Chloride 3 ml 06/26/20 08:00 07/02/20 08:49 0.9 % Sodium Chloride Flush 3 Ml Syringe IVFLUSH 3 ml QSHIFT [facility] Administration Labs CBC & Chem 7: 07/01/20 06:25 07/01/20 06:24 Microbiology Microbiology Results: Microbiology 06/25/20 20:24 Blood - Venous Blood Culture - Final No growth after 5 days. 06/25/20 20:02 Blood - Venous Blood Culture - Final No growth after 5 days. Assessment and Plan (1) Sickle cell anemia with crisis: Status: Acute (2) Acute respiratory failure with hypoxia: Problem details: She has possible sickle disease as well as possible bacterial pneumonia She has worsening respiratory status There is no MRSA seen She probably has lung damage from COVID Status: Acute (3) Cocaine abuse: Status: Acute (4) Bipolar 1 disorder: Status: Acute Assessment and Plan: hospital d#7 50yo F with sickle cell disease + recent COVID-19 pneumonia readmitted to hospital with hypoxia # acute hypoxic resp failure - likely from post-COVID inflammatory changes, wean O2 gradually, encourage IS, wean steroids [change IV methylprednisolone to PO prednisone today] # pneumonia - IV ceftriaxone d#6, doxycycline IV->PO d#5 # sickle cell crisis - continue IV hydromorphone, PO oxycodone - continue hydroxyurea - 1u pRBCs transfused 06/29/20 # constipation - continue bowel regimen # tobacco abuse - continue NRT # hx bipolar disorder - not on any mood stabilizers # GERD - continue PPI # VTE ppx - continue LMWH
[2020-07-02] MEDS: cefTRIAXone sodium 1 GM in 0.9 % Sodium Chloride 50 ML IV (16:46)
[2020-07-03] VITALS (11 sets, daily range): BP systolic 110–141; BP diastolic 59–74; PULSE 70–76; RESP 14–20; TEMP 36.1–36.4; O2SAT 77–95
[2020-07-03] MEDS: diphenhydrAMINE HCL 50 MG/ML VIAL 25 MG IVPUSH ×2 (00:08→21:02)
[2020-07-03] MEDS: HYDROmorphone HCl 0.5 MG/0.5 ML SYRINGE IVPUSH ×5 (03:15→21:02)
[2020-07-03] MEDS: hydrOXYzine HCL 25 MG TABLET PO ×2 (03:16→12:50)
[2020-07-03] MEDS: oxyCODONE HCl Immed Release 5 MG TABLET PO (03:16)
[2020-07-03 03:32] LABS: Hematocrit 24.5 % (37-47); Hemoglobin 8.8 g/dl (12.0-16.0); Mean Corpuscular HGB Conc 35.9 g/dl (31.0-35.0); Mean Corpuscular Hemoglobin 32.5 pg (27.0-33.0); Mean Corpuscular Volume 90.4 fL (80-98); Mean Platelet Volume 11.7 fL (9.4-12.3); NRBC Pct Auto 7.2 /100WBC (0.0-0.2); PLT CLUMP 1; Red Blood Count 2.71 X10*6/uL (4.20-5.50); Red Cell Distribution Width 20.9 % (11.0-16.0); WBC ABN SCTR FOR CBC 1
[2020-07-03 03:51] LABS: Platelet Count 116 X10*3/uL (160-400)
[2020-07-03 03:52] LABS: White Blood Count 22.2 X10*3/uL (4.8-10.8)
[2020-07-03 03:55] LABS: Band Neutrophils Percent 2 % (3-5); Lymphocytes Percent Manual 9 % (20-40); Monocytes Absolute Manual 1.1 X10*3/uL (0.0-1.2); Monocytes Percent Manual 5 % (2-11); Neutrophils Absolute Manual 19.1 X10*3/uL (2.2-7.9); Neutrophils Percent Manual 84 % (45-73); Nucleated Red Blood Cells 22 /100WBC (0-0)
[2020-07-03 03:59] LABS: Macrocytosis 1+ (5-14) /OIF; Microcytosis 2+ (15-30) /OIF; Platelet Estimate DECREASED (NORMAL); Platelet Morphology Comment NOTED; RBC Morphology NOTED
[2020-07-03 04:00] LABS: Basophilic Stippling 1+ (0-2) /OIF; Hypochromasia 1+ (5-14) /OIF; Large Platelet PRESENT; Polychromasia 2+ (3-5) /OIF; Schistocytes 1+ (0-2) /OIF; Sickle Cells 1+ (0-2) /OIF; Spherocytes 1+ (0-2) /OIF; Target Cells 1+ (5-14) /OIF; Tear Drop Cells 1+ (0-2) /OIF; Toxic Vacuolation PRESENT
[2020-07-03 05:33] LABS: Retic HGB Equivalent 26.9 pg (30.0-35.0); Reticulocytes Absolute 0.369 X10*6/uL (0.026-0.095)
[2020-07-03 05:34] LABS: Reticulocyte Percent 13.7 % (0.5-1.8)
[2020-07-03] MEDS: Omeprazole 40 MG CAPSULE.DR PO (05:45)
[2020-07-03] MEDS: predniSONE 20 MG TABLET 40 MG PO (07:46)
[2020-07-03] MEDS: Benzonatate 100 MG CAPSULE PO (07:46)
[2020-07-03] MEDS: 0.9 % Sodium Chloride Flush 3 ML SYRINGE IVFLUSH ×3 (08:13→21:03)
[2020-07-03] MEDS: Docusate Sodium 100 MG CAPSULE PO ×2 (08:22→21:02)
[2020-07-03] MEDS: Hydroxyurea 500 MG CAPSULE PO ×2 (08:22→21:02)
--- NOTE | 2020-07-03 14:23 | PC.RT ---
0800- Spoke with about placing patient on a high flow nasal cannula. She was up out of bed on the commode. Had desat to low 80's. Increased to [place] to 13L. Pt was not recovering. Placed patient on the HFNC she kept pulling it off sayoing it smelled disgusting. Attempted with a second freshly opened nasal prong (first was newly opened as well). Pt pulled it off again saying I was poisoning her. Asked to go back on the [place]. Placed her back on [place]. Pulled it off saying it was burning her nose. Desat to 86%. said well it has been like that , She let me put in back in. Spoke with MD and RN. HFNC not in use at this time will keep cannula in as tolerates. continuous reminder to keep on
--- NOTE | 2020-07-03 15:19 | HO.PM.IMPN ---
Subjective Subjective Date of Service: 07/03/20 Interval History: Desaturated this am to SaO2 77% Ongoing cough, dyspnea, and chest wall pain Pt refused HFNC; now on 12L via [place] device with SaO2 in low-mid 90s Physical Exam Vital Signs: Vital Signs: Last Vital Signs Temp 97.1 F 07/03/20 11:15 Pulse 70 07/03/20 11:15 Resp 14 07/03/20 12:51 BP 119/70 07/03/20 11:15 Pulse Ox 92 07/03/20 11:15 Oxygen Flow Rate 2 06/25/20 19:03 Body Mass Index 20.5 Gen: in no acute distress HEENT: sclera anicteric, moist mucus membranes Neck: supple Lungs: inspiratory rhonchi bilaterally throughout Heart: regular rate and rhythm, no murmurs Abd: soft, non-tender, non-distended Ext: no edema Skin: warm/well-perfused Neuro: alert and oriented x3, no focal findings Psych: appropriate affect Objective Data Current Medications Generic Name Dose Route Start Last Admin Trade Name Alexandrq PRN Reason Stop Dose Admin Acetaminophen 650 mg 06/26/20 02:23 07/01/20 04:40 Acetaminophen 325 Mg Tablet PO 650 mg Q6H PRN Administration Pain, Mild (Pain Scale 1-3) Al Hydroxide/Mg Hydroxide 15 ml 06/26/20 17:47 06/26/20 18:08 Magnesium Hydrox/Alum Hydrox 30 Ml Oral.Susp PO 15 ml Q4H PRN Administration Heartburn Al Hydroxide/Mg Hydroxide 30 ml 06/29/20 11:05 06/29/20 11:24 Magnesium Hydrox/Alum Hydrox 30 Ml Oral.Susp PO 30 ml Q6H PRN Administration heart burn Al Hydroxide/Mg Hydroxide 15 ml 06/30/20 09:28 Magnesium Hydrox/Alum Hydrox 30 Ml Oral.Susp PO Q6H PRN Dyspepsia Benzonatate 100 mg 06/29/20 11:05 07/03/20 07:46 Benzonatate 100 Mg Capsule PO 100 mg TID PRN Administration Cough Diphenhydramine HCl 25 mg 06/26/20 11:16 07/03/20 00:08 Diphenhydramine Hcl 50 Mg/Ml Vial IVPUSH 25 mg Q6H PRN Administration pruritis Docusate Sodium 100 mg 06/26/20 02:23 06/30/20 09:58 Docusate Sodium 100 Mg Capsule PO 100 mg DAILY PRN Administration Constipation Docusate Sodium 100 mg 06/30/20 21:00 07/03/20 08:22 Docusate Sodium 100 Mg Capsule PO 100 mg BID [facility] Administration Doxycycline Hyclate 100 mg 07/02/20 08:15 07/03/20 07:46 Doxycycline Hyclate 100 Mg Tablet PO 100 mg Q12H [facility] Administration Enoxaparin Sodium 40 mg 07/02/20 08:15 07/03/20 08:12 Enoxaparin Sodium 40 Mg/0.4 Ml Syringe SUBCUT Not Given Q24H [facility] Hydromorphone HCl 0.5 mg 06/26/20 02:23 07/03/20 12:51 Hydromorphone Hcl 0.5 Mg/0.5 Ml Syringe IVPUSH 0.5 mg Q4H PRN Administration Pain, Severe (Pain Scale 7-10) Hydroxyurea 500 mg 06/30/20 21:00 07/03/20 08:22 Hydroxyurea 500 Mg Capsule PO 500 mg BID [facility] Administration Hydroxyzine HCl 25 mg 06/30/20 09:26 07/03/20 12:50 Hydroxyzine Hcl 25 Mg Tablet PO 25 mg QID PRN Administration anxiety Ceftriaxone Sodium 1 gm/ 50 mls @ 100 mls/hr 06/26/20 17:00 07/02/20 17:16 Sodium Chloride IV Infused Q24H [facility] Infusion Lactulose 10 gm 06/30/20 09:27 07/01/20 20:04 Lactulose 20 Gm/30 Ml Solution PO 10 gm DAILY PRN Administration constipation Lorazepam 0.25 mg 06/26/20 16:00 07/02/20 20:45 Lorazepam 0.5 Mg Tablet PO 0.25 mg Q8H PRN Administration anxiety Nicotine Polacrilex 4 mg 07/01/20 09:58 07/01/20 10:09 Nicotine Polacrilex 2 Mg Gum BUCCAL 4 mg Q2H PRN Administration withdrawl Omeprazole 40 mg 06/30/20 09:30 07/03/20 05:45 Omeprazole 40 Mg Capsule.Dr PO 40 mg DAILY@0630 [facility] Administration Ondansetron HCl 4 mg 06/26/20 02:23 Ondansetron Hcl 4 Mg/2 Ml Vial IVPUSH Q8H PRN Nausea and Vomiting Oxycodone HCl 5 mg 06/26/20 02:23 07/03/20 03:16 Oxycodone Hcl Immed Release 5 Mg Tablet PO 5 mg Q6H PRN Administration Pain, Severe (Pain Scale 7-10) Pharmacy Consult 1 each 06/29/20 09:09 Consult Rx Vancomycin Dosing MISCELLANE DAILY PRN Consult order Prednisone 40 mg 07/02/20 09:00 07/03/20 07:46 Prednisone 20 Mg Tablet PO 40 mg DAILY [facility] Administration Sodium Chloride 3 ml 06/26/20 08:00 07/03/20 08:13 0.9 % Sodium Chloride Flush 3 Ml Syringe IVFLUSH 3 ml QSHIFT [facility] Administration Labs CBC & Chem 7: 07/03/20 03:22 07/01/20 06:24 Labs: Laboratory Results - last 24 hr 07/03/20 03:22 WBC 22.2 H RBC 2.71 L Hgb 8.8 L Hct 24.5 L MCV 90.4 MCH 32.5 MCHC 35.9 H RDW 20.9 H Plt Count 116 L MPV 11.7 Immature Gran % (Auto) Cancelled Neut % (Auto) Cancelled Lymph % (Auto) Cancelled [place] % (Auto) Cancelled Eos % (Auto) Cancelled Baso % (Auto) Cancelled Lymph # (Auto) Cancelled [place] # (Auto) Cancelled Eos # (Auto) Cancelled Baso # (Auto) Cancelled Abs Immat Gran (auto) Cancelled Absolute Neuts (auto) Cancelled Absolute Nucleated RBC 1.600 H Nucleated RBC % (auto) 7.2 H Neutrophils % (Manual) 84 H Band Neutrophils % 2 L Lymphocytes % (Manual) 9 L Monocytes % (Manual) 5 Abs Neuts (Manual) 19.1 H Lymphocytes # (Manual) 2.0 Monocytes # (Manual) 1.1 Nucleated RBCs 22 H Toxic Vacuolation PRESENT Platelet Estimate DECREASED Large Platelets PRESENT Plt Morphology Comment NOTED RBC Morphology NOTED Polychromasia 2+ (3-5) Hypochromasia 1+ (5-14) Basophilic Stippling 1+ (0-2) Microcytosis 2+ (15-30) Macrocytosis 1+ (5-14) Spherocytes 1+ (0-2) Sickle Cells 1+ (0-2) Target Cells 1+ (5-14) Tear Drop Cells 1+ (0-2) Schistocytes 1+ (0-2) Absolute Retic 0.369 H Percent Retic 13.7 H Immature Retic Fraction 17.0 H Retic Hgb Equivalent 26.9 L Microbiology Microbiology Results: Microbiology 06/25/20 20:24 Blood - Venous Blood Culture - Final No growth after 5 days. 06/25/20 20:02 Blood - Venous Blood Culture - Final No growth after 5 days. Assessment and Plan (1) Sickle cell anemia with crisis: Status: Acute (2) Acute respiratory failure with hypoxia: Problem details: She has possible sickle disease as well as possible bacterial pneumonia She has worsening respiratory status There is no MRSA seen She probably has lung damage from COVID Status: Acute (3) Cocaine abuse: Status: Acute (4) Bipolar 1 disorder: Status: Acute Assessment and Plan: hospital d#8 50yo F with sickle cell disease + recent COVID-19 pneumonia readmitted to hospital with hypoxia # acute hypoxic resp failure - likely from post-COVID inflammatory changes. higher O2 requirement today- will change back to IV methylprednisolone 40 mg q12h. last CTA chest 06/14 and 06/25 no PE though if hypoxia worsens may consider repeating study # pneumonia - IV ceftriaxone d#7, doxycycline IV->PO d#6 # sickle cell crisis - continue IV hydromorphone, PO oxycodone - continue hydroxyurea - 1u pRBCs transfused 06/29/20 # constipation - continue bowel regimen # tobacco abuse - continue NRT # hx bipolar disorder - not on any mood stabilizers # GERD - continue PPI # VTE ppx - continue LMWH
--- NOTE | 2020-07-03 15:42 | PC.NURSE ---
Non-compliance with O2 Pt SpO2 desaturated to the 70's , she was found with nasal cannula off. She noted that she is aware and that she doesn't care . She behave non-compliant then put the oxygen back on. saturation improved to 92. pt was educated on the importance of keeping her O2 on and she noted that she knows and that she doesn't care about it.
[2020-07-03] MEDS: Furosemide 20 MG/2 ML VIAL IVPUSH (17:59)
[2020-07-03] MEDS: LORazepam 0.5 MG TABLET 0.25 MG PO (18:03)
[2020-07-03] MEDS: methylPREDNISolone Sod Succ 40 MG/ML VIAL IVPUSH (18:34)
[2020-07-04] VITALS (14 sets, daily range): BP systolic 114–139; BP diastolic 61–83; PULSE 66–77; RESP 16–20; TEMP 35.7–36.5; O2SAT 74–100
[2020-07-04] MEDS: HYDROmorphone HCl 0.5 MG/0.5 ML SYRINGE IVPUSH ×5 (00:27→21:18)
[2020-07-04] MEDS: oxyCODONE HCl Immed Release 5 MG TABLET PO ×2 (01:43→23:47)
[2020-07-04] MEDS: diphenhydrAMINE HCL 50 MG/ML VIAL 25 MG IVPUSH ×2 (06:01→21:17)
[2020-07-04] MEDS: methylPREDNISolone Sod Succ 40 MG/ML VIAL IVPUSH ×2 (06:02→17:25)
[2020-07-04] MEDS: Omeprazole 40 MG CAPSULE.DR PO (06:02)
[2020-07-04] MEDS: Docusate Sodium 100 MG CAPSULE PO ×2 (07:53→21:17)
[2020-07-04] MEDS: Enoxaparin Sodium 40 MG/0.4 ML SYRINGE SUBCUT (07:53)
[2020-07-04] MEDS: LORazepam 0.5 MG TABLET 0.25 MG PO ×2 (07:53→21:32)
[2020-07-04] MEDS: 0.9 % Sodium Chloride Flush 3 ML SYRINGE IVFLUSH ×3 (07:54→21:18)
[2020-07-04] MEDS: Hydroxyurea 500 MG CAPSULE PO ×2 (07:54→21:17)
[2020-07-04] MEDS: Benzonatate 100 MG CAPSULE PO ×2 (08:05→21:17)
[2020-07-04] MEDS: Acetaminophen 325 MG TABLET 650 MG PO (08:05)
--- NOTE | 2020-07-04 09:44 | P.CNHO_ITS ---
Subjective - Subjective Chief complaint: Shortness of breath Patient: known to practice within the last 3 years Consult date: 07/04/20 Requesting Physician: Dr Garcia Primary Care Provider: Unknown Physician HPI - Consult Narrative Reason for consult: Worsening hypoxemia Narrative: America Vizcaino is a 50 year old female with history of sickle cell anemia followed by Dr. Mares who is admitted with recurrent complaints of shortness of breath and hypoxemia. Patient was recently discharged from [facility] after being treated for COVID-19 pneumonia. She came back on 06/26/2020 with complaints of cough, shortness of breath and chest pain. She also reported fever and chills. Patient was found to be hypoxemic with oxygen saturation in the low 90s on [address] angiogram showed no pulmonary emboli but had multifocal ground-glass infiltrates consistent with COVID-19/viral pneumonia. Empiric antibiotics, she is on IV steroids and Lovenox for DVT prophylaxis. On 07/03/2020 her oxygen saturations dipped down to 86%, showed increasing bilateral airspace disease probably representing pneumonia. Today, she is sitting up in bed, eating her breakfast and is able to talk in full sentences. She states that she continues to feel short of breath and has pain in her chest as well as all over her body. Review of Systems - Constitutional Reports as per HPI - Neurologic Denies abnormal movements PMFSH Medical History: Medical History (Last Updated 06/27/20 @ 12:34 by Vincenzo Mendoza MD) Bipolar 1 disorder Cocaine abuse GERD (gastroesophageal reflux disease) Pneumonia due to 2019 novel coronavirus PTSD (post-traumatic stress disorder) Sickle cell anemia Sickle cell anemia UTI (urinary tract infection) Family History: Family History (Last Reviewed 06/26/20 @ 16:42 by Nevin Cintron MD) Other Diabetes Family history: reviewed and not pertinent Surgical History: Surgical History (Last Reviewed 06/26/20 @ 16:42 by Nevin Cintron MD) Hx of cholecystectomy Social History: Social History (Last Reviewed 06/26/20 @ 16:42 by Nevin Cintron MD) Living Situation History: Household Members: None Housing: Apartment Do you presently have visiting nurse or other home services: No Alcohol History: Unable to assess alcohol history related to: Unable to respond Alcohol intake: current Alcohol History Details: Alcohol intake frequency: a few times a week Alcohol type: beer Tobacco History: Smoking Status: Current every day smoker Tobacco Type: Cigarette Packs Per Day: 0.5 Smoked in Last 30 Days: Yes Patient Interested in Nicotine Replacement: Yes Patient Interested in Nicotine Replacement comment: GUM Patient Given Instructions on How to Stop Smoking: No Patient Given Instructions on How to Stop Smoking comment: refused Second Hand Smoke Exposure: No Substance Use History: Substance Use Type: Crack/Cocaine Substance Use Frequency: Weekly Last Used Substance: Days (ago) Currently Displaying Signs/Symptoms of Drug Intoxication Withdrawal: No Any prior treatment program specific to substance use: No Advance Directives: Advance Directives: No Advance Directives Information Provided: Yes Homicidal Assessment: Do you have thoughts of harming others: None Do you have a plan to hurt others: No Plan Nutrition Assessment: Recently lost weight without trying: No Nutrition Risks: No Nutritional Risk Patient : No Occupation Assessmet: service: No Current occupational status: disabled Smoking status: Current every day smoker Home Medications and Allergies Current Medications: Current Medications Generic Name Dose Route Start Last Admin Trade Name Freq PRN Reason Stop Dose Admin Acetaminophen 650 mg 06/26/20 02:23 07/04/20 08:05 Acetaminophen 325 Mg Tablet PO 650 mg Q6H PRN Administration Pain, Mild (Pain Scale 1-3) Al Hydroxide/Mg Hydroxide 15 ml 06/26/20 17:47 06/26/20 18:08 Magnesium Hydrox/Alum Hydrox 30 Ml Oral.Susp PO 15 ml Q4H PRN Administration Heartburn Al Hydroxide/Mg Hydroxide 30 ml 06/29/20 11:05 06/29/20 11:24 Magnesium Hydrox/Alum Hydrox 30 Ml Oral.Susp PO 30 ml Q6H PRN Administration heart burn Al Hydroxide/Mg Hydroxide 15 ml 06/30/20 09:28 Magnesium Hydrox/Alum Hydrox 30 Ml Oral.Susp PO Q6H PRN Dyspepsia Benzonatate 100 mg 06/29/20 11:05 07/04/20 08:05 Benzonatate 100 Mg Capsule PO 100 mg TID PRN Administration Cough Diphenhydramine HCl 25 mg 06/26/20 11:16 07/04/20 06:01 Diphenhydramine Hcl 50 Mg/Ml Vial IVPUSH 25 mg Q6H PRN Administration pruritis Docusate Sodium 100 mg 06/26/20 02:23 06/30/20 09:58 Docusate Sodium 100 Mg Capsule PO 100 mg DAILY PRN Administration Constipation Docusate Sodium 100 mg 06/30/20 21:00 07/04/20 07:53 Docusate Sodium 100 Mg Capsule PO 100 mg BID [facility] Administration Doxycycline Hyclate 100 mg 07/02/20 08:15 07/04/20 07:53 Doxycycline Hyclate 100 Mg Tablet PO 100 mg Q12H [facility] Administration Enoxaparin Sodium 40 mg 07/02/20 08:15 07/04/20 07:53 Enoxaparin Sodium 40 Mg/0.4 Ml Syringe SUBCUT 40 mg Q24H [facility] Administration Hydromorphone HCl 0.5 mg 06/26/20 02:23 07/04/20 06:02 Hydromorphone Hcl 0.5 Mg/0.5 Ml Syringe IVPUSH 0.5 mg Q4H PRN Administration Pain, Severe (Pain Scale 7-10) Hydroxyurea 500 mg 06/30/20 21:00 07/04/20 07:54 Hydroxyurea 500 Mg Capsule PO 500 mg BID [facility] Administration Hydroxyzine HCl 25 mg 06/30/20 09:26 07/03/20 12:50 Hydroxyzine Hcl 25 Mg Tablet PO 25 mg QID PRN Administration anxiety Lactulose 10 gm 06/30/20 09:27 07/01/20 20:04 Lactulose 20 Gm/30 Ml Solution PO 10 gm DAILY PRN Administration constipation Lorazepam 0.25 mg 06/26/20 16:00 07/04/20 07:53 Lorazepam 0.5 Mg Tablet PO 0.25 mg Q8H PRN Administration anxiety Methylprednisolone Sodium Succinate 40 mg 07/03/20 18:00 07/04/20 06:02 Methylprednisolone Sod Succ 40 Mg/Ml Vial IVPUSH 40 mg Q12H [facility] Administration Nicotine Polacrilex 4 mg 07/01/20 09:58 07/01/20 10:09 Nicotine Polacrilex 2 Mg Gum BUCCAL 4 mg Q2H PRN Administration withdrawl Omeprazole 40 mg 06/30/20 09:30 07/04/20 06:02 Omeprazole 40 Mg Capsule.Dr PO 40 mg DAILY@0630 [facility] Administration Ondansetron HCl 4 mg 06/26/20 02:23 Ondansetron Hcl 4 Mg/2 Ml Vial IVPUSH Q8H PRN Nausea and Vomiting Oxycodone HCl 5 mg 06/26/20 02:23 07/04/20 01:43 Oxycodone Hcl Immed Release 5 Mg Tablet PO 5 mg Q6H PRN Administration Pain, Severe (Pain Scale 7-10) Pharmacy Consult 1 each 06/29/20 09:09 Consult Rx Vancomycin Dosing MISCELLANE DAILY PRN Consult order Sodium Chloride 3 ml 06/26/20 08:00 07/04/20 07:54 0.9 % Sodium Chloride Flush 3 Ml Syringe IVFLUSH 3 ml QSHIFT [facility] Administration Home Medications Medication Instructions Recorded Confirmed Type hydroxyurea (sickle cell) 500 mg PO BID 06/26/20 06/27/20 History hydroxyzine pamoate 1 cap PO QID PRN 06/26/20 06/26/20 History oxycodone-acetaminophen 1 tab PO Q6-8H PRN 06/26/20 06/26/20 History Allergies Allergy/AdvReac Type Severity Reaction Status Date / Time prochlorperazine Allergy Severe ANAPHYLAXIS Verified 05/10/20 01:39 [From COMPAZINE] Physical Exam Vital signs: Vital Signs Temp 97.1 F 07/04/20 07:21 Pulse 66 07/04/20 07:21 Resp 18 07/04/20 07:21 BP 139/78 07/04/20 07:21 Pulse Ox 95 07/04/20 07:21 Intake & Output 07/03/20 07/04/20 07/04/20 18:59 06:59 18:59 Intake Total 120 / 120 Output Total 400 / 400 Balance -400 / -280 120 / -280 Urine Output (Average ml/kg/hr) 0.61 0.61 Intake: Intake, Oral Amount 120 / 120 Output: Output, Urine Amount 400 / 400 Other: Dinner % Eaten 50% Number of Unmeasured Voids 2 Urine Bedside Commode Bedside Commode Urine Color Tea Yellow Weight 54.431 kg - Constitutional Present: no acute distress, chronically ill appearing - Routine HEENT Exam Head: Present: normal inspection - Routine Neck Exam Present: supple - Routine Respiratory Exam Absent: respiratory distress - Routine Cardiovascular Exam Cardiovascular: Present: S1, S2 Hem/Onc Consult Result - Labs CBC & Chem 7: 07/03/20 03:22 07/01/20 06:24 Assessment and Plan (1) Hypoxia Status: Acute 1. This is a 50-year-old woman with sickle cell anemia admitted with persistent/worsening hypoxemia after recent COVID-19 pneumonia diagnosis. She was initially diagnosed with COVID-19 pneumonia on 06/14/2020. She was discharged on June 18 and readmitted June 26. On June 25 she was persistently positive for COVID-19 antigen. She was found to be hypoxemic but CT angiogram was negative for pulmonary embolism. She has bilateral patchy infiltrates consistent with COVID-19 pneumonia. She has been receiving empiric bacterial pneumonia coverage as well as IV steroids. She had an episode of desaturation yesterday raising concern for acute chest syndrome. She has received blood transfusion and her hemoglobin is above 8 gram/dL. Her reticulocyte count is appropriately elevated. And today her pulse ox is 95% on 11 L nasal cannula. As per limited data available on treatment of sickle cell patients with COVID-19 pneumonia, exchange transfusion for acute chest syndrome is recommended when there is rapid decline in hemoglobin associated with worseni ng pulmonary status when simple blood transfusion does not stabilize the patient. A repeat CT angiogram or CT chest may be prudent to rule out pulmonary emboli and/or worsening pneumonia. Today she seems to be doing better, however, she may need transfer to facility with capability of exchange transfusion if her pulmonary status deteriorates. I thank you for this consultation.
--- NOTE | 2020-07-04 10:57 | P.CONPL_ITS ---
History of Present Illness History of Present Illness Consult date: 07/04/20 Requesting physician: Aditya Garcia Chief complaint: hypoxic resp failure, sickle crisis Narrative: 50-year-old lady with underlying history of sickle cell disease on hydroxyurea followed by [facility]ematology, also history of cocaine abuse, and recent hospitalization from June 14 through June 18, 2020 (patient left against medical advise) for COVID-19 pneumonia and related acute hypoxic respiratory failure. She has been readmitted on 06/26/2020 with worsening dyspnea and pain all over her body. At she has been treated for community-acquired pneumonia him as a possible bacterial superinfection of her prior COVID-19. Her hospital course was significant for worsening hypoxemia requiring escalating level of FiO2. Her CT angiogram chest was negative for pulmonary emboli. Her reticulocyte count was noted to be only mildly elevated from normal. Her cumulative input/output have been grossly positive. During my exam she was pleasant, cooperative, and in no distress, breathing comfortably on supplemental oxygen 10-11 L. she denies cough or sputum production. Review of Systems Constitutional: Constitutional: Denies daytime sleepiness, Denies excessive sweating, Denies fatigue, Denies fever(s), Denies lethargy, Denies malaise, Denies night sweats, Denies snoring and Denies weight loss Eyes: Eyes: Denies blurry vision and Denies itchy eyes ENT: Denies nasal congestion, Denies post nasal drip, Denies sinus pain, Denie s sinus pressure and Denies other ( Thrush) Cardiovascular: Cardiovascular: Denies chest pain, Denies pedal edema, Reports dyspnea, Denies orthopnea and Denies paroxysmal nocturnal dyspnea Respiratory: Respiratory: Denies cough, Denies hemoptysis, Denies excessive phlegm production, Reports dyspnea, Denies snoring and Denies wheezing Gastrointestinal: Gastrointestinal: Denies abdominal pain and Denies heartburn Musculoskeletal: Musculoskeletal: Denies myalgias, Denies arthralgias and Denies joint swelling Integumentary/Breasts: Skin/Breast: Denies rash Neurologic: Denies memory loss and Denies seizure-like activity Psychiatric: Psychiatric: Denies abnormal sleep pattern, Denies anxiety and Denies memory loss Endocrine: Endocrine: Denies excessive sweating, Denies fatigue and Denies heat intolerance Hematologic/Lymphatic: Hematologic/Lymphatic: Denies easy bruising Allergic/Immunologic: Allergic/Immunologic: Denies itchy eyes, Denies seasonal rhinorrhea and Denies wheezing PMFSH Past Medical History Medical History (Updated 07/04/20 @ 11:08 by Darin Genao MD) Bipolar 1 disorder Cocaine abuse GERD (gastroesophageal reflux disease) Pneumonia due to 2019 novel coronavirus PTSD (post-traumatic stress disorder) Sickle cell anemia Sickle cell anemia UTI (urinary tract infection) Family History Family History Other Diabetes Family history: reviewed and not pertinent Surgical History Surgical History Hx of cholecystectomy Social History Social History Household Members: None Housing: Apartment Do you presently have visiting nurse or other home services: No Alcohol intake: current Alcohol intake frequency: a few times a week Alcohol type: beer Smoking Status: Current every day smoker Tobacco Type: Cigarette Packs Per Day: 0.5 Smoked in Last 30 Days: Yes Patient Interested in Nicotine Replacement: Yes (GUM) Patient Given Instructions on How to Stop Smoking: No (refused) Second Hand Smoke Exposure: No Substance Use Type: Crack/Cocaine Substance Use Frequency: Weekly Last Used Substance: Days (ago) Currently Displaying Signs/Symptoms of Drug Intoxication Withdrawal: No Any prior treatment program specific to substance use: No Advance Directives: No Advance Directives Information Provided: Yes Do you have thoughts of harming others: None Do you have a plan to hurt others: No Plan Recently lost weight without trying: No Nutrition Risks: No Nutritional Risk Patient : No service: No Current occupational status: disabled Meds Allergies Allergy/AdvReac Type Severity Reaction Status Date / Time prochlorperazine Allergy Severe ANAPHYLAXIS Verified 05/10/20 01:39 [From COMPAZINE] Active Medications: Current Medications Generic Name Dose Route Start Last Admin Trade Name Freq PRN Reason Stop Dose Admin Acetaminophen 650 mg 06/26/20 02:23 07/04/20 08:05 Acetaminophen 325 Mg Tablet PO 650 mg Q6H PRN Administration Pain, Mild (Pain Scale 1-3) Al Hydroxide/Mg Hydroxide 15 ml 06/26/20 17:47 06/26/20 18:08 Magnesium Hydrox/Alum Hydrox 30 Ml Oral.Susp PO 15 ml Q4H PRN Administration Heartburn Al Hydroxide/Mg Hydroxide 30 ml 06/29/20 11:05 06/29/20 11:24 Magnesium Hydrox/Alum Hydrox 30 Ml Oral.Susp PO 30 ml Q6H PRN Administration heart burn Al Hydroxide/Mg Hydroxide 15 ml 06/30/20 09:28 Magnesium Hydrox/Alum Hydrox 30 Ml Oral.Susp PO Q6H PRN Dyspepsia Benzonatate 100 mg 06/29/20 11:05 07/04/20 08:05 Benzonatate 100 Mg Capsule PO 100 mg TID PRN Administration Cough Diphenhydramine HCl 25 mg 06/26/20 11:16 07/04/20 06:01 Diphenhydramine Hcl 50 Mg/Ml Vial IVPUSH 25 mg Q6H PRN Administration pruritis Docusate Sodium 100 mg 06/26/20 02:23 06/30/20 09:58 Docusate Sodium 100 Mg Capsule PO 100 mg DAILY PRN Administration Constipation Docusate Sodium 100 mg 06/30/20 21:00 07/04/20 07:53 Docusate Sodium 100 Mg Capsule PO 100 mg BID PHILLIP Administration Doxycycline Hyclate 100 mg 07/02/20 08:15 07/04/20 07:53 Doxycycline Hyclate 100 Mg Tablet PO 100 mg Q12H PHILLIP Administration Enoxaparin Sodium 40 mg 07/02/20 08:15 07/04/20 07:53 Enoxaparin Sodium 40 Mg/0.4 Ml Syringe SUBCUT 40 mg Q24H PHILLIP Administration Hydromorphone HCl 0.5 mg 06/26/20 02:23 07/04/20 06:02 Hydromorphone Hcl 0.5 Mg/0.5 Ml Syringe IVPUSH 0.5 mg Q4H PRN Administration Pain, Severe (Pain Scale 7-10) Hydroxyurea 500 mg 06/30/20 21:00 07/04/20 07:54 Hydroxyurea 500 Mg Capsule PO 500 mg BID PHILLIP Administration Hydroxyzine HCl 25 mg 06/30/20 09:26 07/03/20 12:50 Hydroxyzine Hcl 25 Mg Tablet PO 25 mg QID PRN Administration anxiety Lactulose 10 gm 06/30/20 09:27 07/01/20 20:04 Lactulose 20 Gm/30 Ml Solution PO 10 gm DAILY PRN Administration constipation Lorazepam 0.25 mg 06/26/20 16:00 07/04/20 07:53 Lorazepam 0.5 Mg Tablet PO 0.25 mg Q8H PRN Administration anxiety Methylprednisolone Sodium Succinate 40 mg 07/03/20 18:00 07/04/20 06:02 Methylprednisolone Sod Succ 40 Mg/Ml Vial IVPUSH 40 mg Q12H PHILLIP Administration Nicotine Polacrilex 4 mg 07/01/20 09:58 07/01/20 10:09 Nicotine Polacrilex 2 Mg Gum BUCCAL 4 mg Q2H PRN Administration withdrawl Omeprazole 40 mg 06/30/20 09:30 07/04/20 06:02 Omeprazole 40 Mg Capsule.Dr PO 40 mg DAILY@0630 [facility] Administration Ondansetron HCl 4 mg 06/26/20 02:23 Ondansetron Hcl 4 Mg/2 Ml Vial IVPUSH Q8H PRN Nausea and Vomiting Oxycodone HCl 5 mg 06/26/20 02:23 07/04/20 01:43 Oxycodone Hcl Immed Release 5 Mg Tablet PO 5 mg Q6H PRN Administration Pain, Severe (Pain Scale 7-10) Pharmacy Consult 1 each 06/29/20 09:09 Consult Rx Vancomycin Dosing MISCELLANE DAILY PRN Consult order Sodium Chloride 3 ml 06/26/20 08:00 07/04/20 07:54 0.9 % Sodium Chloride Flush 3 Ml Syringe IVFLUSH 3 ml QSHIFT [facility] Administration Home Medications Medication Instructions Recorded Confirmed Last Taken Type hydroxyurea (sickle cell) 500 mg PO BID 06/26/20 06/27/20 Unknown History hydroxyzine pamoate 1 cap PO QID PRN 06/26/20 06/26/20 Unknown History oxycodone-acetaminophen 1 tab PO Q6-8H PRN 06/26/20 06/26/20 Unknown History Physical Exam Vital Signs: Vital Signs: Last Vital Signs Temp 97.1 F 07/04/20 07:21 Pulse 66 07/04/20 07:21 Resp 18 07/04/20 07:21 BP 139/78 07/04/20 07:21 Pulse Ox 95 07/04/20 07:21 Oxygen Flow Rate 2 06/25/20 19:03 Body Mass Index 20.5 Const: General: no acute distress, alert and awake Eyes: Sclerae: sclerae normal EOM: EOMs intact bilaterally Neck: Neck: Yes no lymphadenopathy, Yes trachea midline and Yes supple Resp: Effort & Inspection: normal respiratory effort and no respiratory distress Auscultation: clear to auscultation bilaterally Cardio: Rate: regular rate Rhythm: regular rhythm Heart sounds: no gallops, no murmurs and no rubs GI: Palpation (GI): Soft to palpation and Other GI palpation findings present ( Nontender) Auscultation: normal bowel sounds Extrem: General: No clubbing, No cyanosis and Yes pedal edema (1+ bilateral) Results Laboratory Findings CBC and BMP: 07/03/20 03:22 07/01/20 06:24 ABG, PT/INR, D-dimer: PT/INR, D-dimer PT 13.9 SEC (10.8-13.0) H 06/25/20 23:36 INR 1.2 (0.9-1.1) H 06/25/20 23:36 Abnormal lab findings: Abnormal Labs 06/25/20 06/25/20 06/25/20 19:58 19:58 19:59 WBC 12.8 H RBC 2.29 L Hgb 7.8 L Hct 21.8 L MCH 34.1 H MCHC 35.8 H RDW 18.7 H Plt Count MPV Immature Gran % (Auto) Neut % (Auto) Lymph % (Auto) Lymph # (Auto) [place] # (Auto) Abs Immat Gran (auto) Absolute Neuts (auto) Absolute Nucleated RBC 0.890 H Nucleated RBC % (auto) 6.9 H Neutrophils % (Manual) Band Neutrophils % Lymphocytes % (Manual) Abs Neuts (Manual) 8.8 H Lymphocytes # (Manual) Nucleated RBCs 8 H Absolute Retic 0.225 H Percent Retic 9.8 H Immature Retic Fraction Retic Hgb Equivalent 29.5 L PT INR VBG pH VBG HCO3 Sodium 133 L Chloride Carbon Dioxide BUN 17 H Random Glucose Calcium 7.8 L Total Bilirubin 2.7 H AST 102 H ALT 45 H Alkaline Phosphatase 167 H Albumin 3.2 L Vancomycin Trough IgG COVID-19 ([facility]) Positive A SARS-CoV-2 RNA (RT-PCR) Crossmatch ([facility]) 06/25/20 06/25/20 06/26/20 23:36 23:39 10:09 WBC RBC Hgb Hct MCH MCHC RDW Plt Count MPV Immature Gran % (Auto) Neut % (Auto) Lymph % (Auto) Lymph # (Auto) [place] # (Auto) Abs Immat Gran (auto) Absolute Neuts (auto) Absolute Nucleated RBC Nucleated RBC % (auto) Neutrophils % (Manual) Band Neutrophils % Lymphocytes % (Manual) Abs Neuts (Manual) Lymphocytes # (Manual) Nucleated RBCs Absolute Retic Percent Retic Immature Retic Fraction Retic Hgb Equivalent PT 13.9 H INR 1.2 H VBG pH VBG HCO3 20 L Sodium Chloride Carbon Dioxide BUN Random Glucose Calcium Total Bilirubin AST ALT Alkaline Phosphatase Albumin Vancomycin Trough IgG 1862 H COVID-19 ([facility]) SARS-CoV-2 RNA (RT-PCR) Crossmatch ([facility]) 06/26/20 06/27/20 06/27/20 14:02 17:53 17:53 WBC 22.2 H RBC 2.14 L Hgb 7.2 L Hct 20.5 L* MCH 33.6 H MCHC 35.1 H RDW 18.2 H Plt Count MPV 13.0 H Immature Gran % (Auto) 1.2 H Neut % (Auto) 89.1 H Lymph % (Auto) 3.2 L Lymph # (Auto) 0.7 L [place] # (Auto) 1.4 H Abs Immat Gran (auto) 0.27 H Absolute Neuts (auto) 19.8 H Absolute Nucleated RBC 0.870 H Nucleated RBC % (auto) 3.9 H Neutrophils % (Manual) Band Neutrophils % Lymphocytes % (Manual) Abs Neuts (Manual) Lymphocytes # (Manual) Nucleated RBCs Absolute Retic Percent Retic Immature Retic Fraction Retic Hgb Equivalent PT INR VBG pH VBG HCO3 Sodium Chloride 109 H Carbon Dioxide 21 L BUN Random Glucose Calcium 7.8 L Total Bilirubin AST ALT Alkaline Phosphatase Albumin Vancomycin Trough IgG COVID-19 ([facility]) SARS-CoV-2 RNA (RT-PCR) Detected A Crossmatch ([facility]) 06/27/20 06/29/20 06/29/20 17:56 06:18 13:17 WBC RBC Hgb Hct MCH MCHC RDW Plt Count MPV Immature Gran % (Auto) Neut % (Auto) Lymph % (Auto) Lymph # (Auto) [place] # (Auto) Abs Immat Gran (auto) Absolute Neuts (auto) Absolute Nucleated RBC Nucleated RBC % (auto) Neutrophils % (Manual) Band Neutrophils % Lymphocytes % (Manual) Abs Neuts (Manual) Lymphocytes # (Manual) Nucleated RBCs Absolute Retic Percent Retic Immature Retic Fraction Retic Hgb Equivalent PT INR VBG pH 7.44 H VBG HCO3 18 L Sodium Chloride 110 H Carbon Dioxide BUN Random Glucose 119 H D Calcium Total Bilirubin AST ALT Alkaline Phosphatase Albumin Vancomycin Trough IgG COVID-19 ([facility]) SARS-CoV-2 RNA (RT-PCR) Crossmatch ([facility]) See Detail 06/29/20 06/29/20 06/30/20 13:17 21:25 20:05 WBC 17.4 H RBC 2.20 L Hgb 7.2 L Hct 20.6 L* MCH MCHC RDW 18.9 H Plt Count 139 L D MPV 13.0 H Immature Gran % (Auto) Neut % (Auto) Lymph % (Auto) Lymph # (Auto) [place] # (Auto) Abs Immat Gran (auto) Absolute Neuts (auto) Absolute Nucleated RBC 0.830 H Nucleated RBC % (auto) 4.8 H Neutrophils % (Manual) Band Neutrophils % Lymphocytes % (Manual) Abs Neuts (Manual) Lymphocytes # (Manual) Nucleated RBCs Absolute Retic Percent Retic Immature Retic Fraction Retic Hgb Equivalent PT INR VBG pH VBG HCO3 Sodium Chloride Carbon Dioxide BUN 22 H Random Glucose 138 H Calcium Total Bilirubin AST ALT Alkaline Phosphatase Albumin Vancomycin Trough < 3.0 L IgG COVID-19 ([facility]) SARS-CoV-2 RNA (RT-PCR) Crossmatch ([facility]) 07/01/20 07/01/20 07/03/20 06:24 06:25 03:22 WBC 12.9 H 22.2 H RBC 2.44 L 2.71 L Hgb 8.0 L 8.8 L Hct 22.3 L 24.5 L MCH MCHC 35.9 H 35.9 H RDW 19.3 H 20.9 H Plt Count 124 L 116 L MPV Immature Gran % (Auto) Neut % (Auto) Lymph % (Auto) Lymph # (Auto) [place] # (Auto) Abs Immat Gran (auto) Absolute Neuts (auto) Absolute Nucleated RBC 0.980 H 1.600 H Nucleated RBC % (auto) 7.6 H 7.2 H Neutrophils % (Manual) 84 H 84 H Band Neutrophils % 2 L Lymphocytes % (Manual) 4 L 9 L Abs Neuts (Manual) 11.5 H 19.1 H Lymphocytes # (Manual) 0.5 L Nucleated RBCs 14 H 22 H Absolute Retic 0.369 H Percent Retic 13.7 H Immature Retic Fraction 17.0 H Retic Hgb Equivalent 26.9 L PT INR VBG pH VBG HCO3 Sodium Chloride Carbon Dioxide BUN 22 H Random Glucose 152 H Calcium Total Bilirubin AST ALT Alkaline Phosphatase Albumin Vancomycin Trough IgG COVID-19 ([facility]) SARS-CoV-2 RNA (RT-PCR) Crossmatch ([facility]) Microbiology: Microbiology 06/25/20 20:24 Blood - Venous Blood Culture - Final No growth after 5 days. 06/25/20 20:02 Blood - Venous Blood Culture - Final No growth after 5 days. Assessment and Plan (1) Acute respiratory failure with hypoxia: Status: Acute Impression: 50-year-old lady with underlying sickle cell anemia and recent COVID-19 infection admitted with worsening dyspnea and hypoxemia, now requiring 10-11 L of supplemental oxygen to maintain normoxemia. Her CT angiogram is negative for pulmonary emboli, but shows bilateral infiltrates. At she has been treated with a course of antibiotics for community-acquired pneumonia. Now she continues and doxycycline twice a day. She also has been started on systemic glucocorticoids, now with worsening leukocytosis. Patient does not have clinical signs of a bacterial pneumonia. Etiology of her hypoxemia is not clear at this time, however she is grossly positive since admission. At this time etiology hypoxemia is unclear, but sickle cell crisis with chest syndrome appears to be less likely as patient's hemoglobin is i mproving and her reticulocyte count is only slightly elevated from normal, bacterial pneumonia also appears to be less likely. She may have worsening pulmonary function secondary to progressive COVID related pulmonary fibrosis. Recommendation: Would obtain 2D echocardiogram to exclude cardiac component. Systemic glucocorticoids appear to be of low utility past the initial proliferative phase of ARDS, would consider tapering off Solu-Medrol. Would suggest empiric diuresis, if not improving and if concern for sickle cell crisis/acute chest syndrome remains high, then would consider transfer for exchange transfusion.
--- NOTE | 2020-07-04 13:40 | MHC.CM.PN ---
DP Female 50 DX Covid+Discharge plan is dependent on the Pts recovery. At this time She want to be discharged to her hotel room. C will assist with transportation. CM will follow.
--- NOTE | 2020-07-04 14:28 | P.PNIM_ITS ---
Subjective Subjective Date of Service: 07/04/20 Interval History: pain, sob Cardiovascular Cardiovascular: Reports no additional cardiovascular complaints Respiratory Respiratory: Reports no additional respiratory complaints Physical Exam Vital Signs: Vital Signs: Last Vital Signs Temp 97.7 F 07/04/20 11:46 Pulse 70 07/04/20 11:46 Resp 16 07/04/20 13:48 BP 120/76 07/04/20 11:46 Pulse Ox 97 07/04/20 11:46 Oxygen Flow Rate 2 06/25/20 19:03 Body Mass Index 20.5 Gen: in no acute distress HEENT: sclera anicteric, moist mucus membranes Neck: supple Lungs: inspiratory rhonchi bilaterally throughout Heart: regular rate and rhythm, no murmurs Abd: soft, non-tender, non-distended Ext: no edema Skin: warm/well-perfused Neuro: alert and oriented x3, no focal findings Psych: appropriate affect Objective Data Current Medications Generic Name Dose Route Start Last Admin Trade Name Freq PRN Reason Stop Dose Admin Acetaminophen 650 mg 06/26/20 02:23 07/04/20 08:05 Acetaminophen 325 Mg Tablet PO 650 mg Q6H PRN Administration Pain, Mild (Pain Scale 1-3) Al Hydroxide/Mg Hydroxide 15 ml 06/26/20 17:47 06/26/20 18:08 Magnesium Hydrox/Alum Hydrox 30 Ml Oral.Susp PO 15 ml Q4H PRN Administration Heartburn Al Hydroxide/Mg Hydroxide 30 ml 06/29/20 11:05 06/29/20 11:24 Magnesium Hydrox/Alum Hydrox 30 Ml Oral.Susp PO 30 ml Q6H PRN Administration heart burn Al Hydroxide/Mg Hydroxide 15 ml 06/30/20 09:28 Magnesium Hydrox/Alum Hydrox 30 Ml Oral.Susp PO Q6H PRN Dyspepsia Benzonatate 100 mg 06/29/20 11:05 07/04/20 08:05 Benzonatate 100 Mg Capsule PO 100 mg TID PRN Administration Cough Diphenhydramine HCl 25 mg 06/26/20 11:16 07/04/20 06:01 Diphenhydramine Hcl 50 Mg/Ml Vial IVPUSH 25 mg Q6H PRN Administration pruritis Docusate Sodium 100 mg 06/26/20 02:23 06/30/20 09:58 Docusate Sodium 100 Mg Capsule PO 100 mg DAILY PRN Administration Constipation Docusate Sodium 100 mg 05/08/21 21:00 07/04/20 07:53 Docusate Sodium 100 Mg Capsule PO 100 mg BID PHILLIP Administration Doxycycline Hyclate 100 mg 07/02/20 08:15 07/04/20 07:53 Doxycycline Hyclate 100 Mg Tablet PO 100 mg Q12H PHILLIP Administration Enoxaparin Sodium 40 mg 07/02/20 08:15 07/04/20 07:53 Enoxaparin Sodium 40 Mg/0.4 Ml Syringe SUBCUT 40 mg Q24H PHILLIP Administration Furosemide 40 mg 07/04/20 18:00 Furosemide 40 Mg/4 Ml Vial IVPUSH BID@0900,1800 [facility] Protocol Hydromorphone HCl 0.5 mg 06/26/20 02:23 07/04/20 13:48 Hydromorphone Hcl 0.5 Mg/0.5 Ml Syringe IVPUSH 0.5 mg Q4H PRN Administration Pain, Severe (Pain Scale 7-10) Hydroxyurea 500 mg 06/30/20 21:00 07/04/20 07:54 Hydroxyurea 500 Mg Capsule PO 500 mg BID PHILLIP Administration Hydroxyzine HCl 25 mg 06/30/20 09:26 07/03/20 12:50 Hydroxyzine Hcl 25 Mg Tablet PO 25 mg QID PRN Administration anxiety Lactulose 10 gm 06/30/20 09:27 07/01/20 20:04 Lactulose 20 Gm/30 Ml Solution PO 10 gm DAILY PRN Administration constipation Lorazepam 0.25 mg 06/26/20 16:00 07/04/20 07:53 Lorazepam 0.5 Mg Tablet PO 0.25 mg Q8H PRN Administration anxiety Methylprednisolone Sodium Succinate 40 mg 07/03/20 18:00 07/04/20 06:02 Methylprednisolone Sod Succ 40 Mg/Ml Vial IVPUSH 40 mg Q12H PHILLIP Administration Nicotine Polacrilex 4 mg 07/01/20 09:58 07/01/20 10:09 Nicotine Polacrilex 2 Mg Gum BUCCAL 4 mg Q2H PRN Administration withdrawl Omeprazole 40 mg 06/30/20 09:30 07/04/20 06:02 Omeprazole 40 Mg Capsule.Dr PO 40 mg DAILY@0630 [facility] Administration Ondansetron HCl 4 mg 06/26/20 02:23 Ondansetron Hcl 4 Mg/2 Ml Vial IVPUSH Q8H PRN Nausea and Vomiting Oxycodone HCl 5 mg 06/26/20 02:23 07/04/20 01:43 Oxycodone Hcl Immed Release 5 Mg Tablet PO 5 mg Q6H PRN Administration Pain, Severe (Pain Scale 7-10) Pharmacy Consult 1 each 06/29/20 09:09 Consult Rx Vancomycin Dosing MISCELLANE DAILY PRN Consult order Sodium Chloride 3 ml 06/26/20 08:00 07/04/20 07:54 0.9 % Sodium Chloride Flush 3 Ml Syringe IVFLUSH 3 ml QSHIFT [facility] Administration Labs CBC & Chem 7: 07/03/20 03:22 07/01/20 06:24 Microbiology Microbiology Results: Microbiology 06/25/20 20:24 Blood - Venous Blood Culture - Final No growth after 5 days. 06/25/20 20:02 Blood - Venous Blood Culture - Final No growth after 5 days. Assessment and Plan (1) Sickle cell anemia with crisis: Status: Acute (2) Acute respiratory failure with hypoxia: Status: Acute (3) Cocaine abuse: Status: Acute (4) Bipolar 1 disorder: Status: Acute Assessment and Plan: hospital d#9 50yo F with sickle cell disease + recent COVID-19 pneumonia readmitted to hospital with hypoxia acute hypoxic resp failure - likely from post-COVID inflammatory changes +/- superimposed bacterial pneumonia and sickle cell crisis. on steroids pulm appreciated, may be element of fluid overload, will diurese hematology appreciated, conitnue hydrea, no indication for plasma exchange at this time doxy day 7, completed 7 days ceftriaxone tobacco abuse NRT hx bipolar disorder not on any mood stabilizers GERD continue PPI VTE ppx continue LMWH
[2020-07-04] MEDS: Furosemide 40 MG/4 ML VIAL IVPUSH (17:24)
[2020-07-04 18:24] LABS: ABG Refer to POC result
[2020-07-04 18:24] LABS: ABG Base Excess 3.2 mmol/L; ABG HCO3 26 mmol/L (22-26); ABG pCO2 33 mmHg (32-45); ABG pCO2 TC 32 mmHg (32-45); ABG pH 7.49 (7.35-7.45); ABG pO2 53 mmHg (83-108); ABG pO2 TC 49 (83-108)
--- NOTE | 2020-07-04 18:40 | PC.NURSE ---
Addendum entered by Rabia Scott RN 07/04/20 19:11: Resp placed pt on hi-flow at this time Original Note: O2 Saturation pt complained of not being able to breathe properly I can't feel my oxygen . pt was assessed, her O2 saturations were 74 on 9L, O2 was increased from 12L which bumped her saturations to the high 80's, saturations were then recheck and pt O2 was increased to 15L. Her saturations were monitored and and her readings remained consistently between 87-89. MD was notified and ABG's were ordered STAT which came back critical. MD was notified of critical ABG's, came to see patient and educated patient on going on [place] O2, orders were put in and respiratory came to see patient . Pt's saturations continued to be monitored.
--- NOTE | 2020-07-04 22:18 | PC.RT ---
pt was found on HFNC upon entering the room pt stating she can't breathe pulling hfnc off attempting to put on a NC , i explained to her the high flow will help decrease her wob also increased the flow she is now 90% and 60L fahad better
[2020-07-05] VITALS (13 sets, daily range): BP systolic 90–144; BP diastolic 54–91; PULSE 58–94; RESP 16–22; TEMP 36.1–37; O2SAT 94–100
[2020-07-05] MEDS: HYDROmorphone HCl 0.5 MG/0.5 ML SYRINGE IVPUSH ×3 (01:23→10:08)
[2020-07-05] MEDS: hydrOXYzine HCL 25 MG TABLET PO ×2 (04:08→20:29)
[2020-07-05] MEDS: methylPREDNISolone Sod Succ 40 MG/ML VIAL IVPUSH ×2 (05:43→18:26)
[2020-07-05] MEDS: Omeprazole 40 MG CAPSULE.DR PO (05:43)
[2020-07-05] MEDS: Docusate Sodium 100 MG CAPSULE PO ×2 (08:50→20:29)
[2020-07-05] MEDS: oxyCODONE HCl Immed Release 5 MG TABLET PO (08:50)
[2020-07-05] MEDS: Hydroxyurea 500 MG CAPSULE PO ×2 (08:50→20:29)
[2020-07-05] MEDS: 0.9 % Sodium Chloride Flush 3 ML SYRINGE IVFLUSH ×2 (08:51→15:59)
[2020-07-05] MEDS: Enoxaparin Sodium 40 MG/0.4 ML SYRINGE SUBCUT (08:51)
[2020-07-05] MEDS: Furosemide 40 MG/4 ML VIAL IVPUSH ×2 (08:51→18:26)
[2020-07-05] MEDS: Benzonatate 100 MG CAPSULE PO (08:51)
--- NOTE | 2020-07-05 11:49 | P.PNIM_ITS ---
Subjective Subjective Date of Service: 07/05/20 Interval History: patient became more hypoxic yesterday and was placed on high flow, but reports no changes in symptoms Cardiovascular Cardiovascular: Reports no additional cardiovascular complaints Gastrointestinal Gastrointestinal: Reports no additional gastrointestinal complaints Physical Exam Vital Signs: Vital Signs: Last Vital Signs Temp 97.0 F 07/05/20 11:28 Pulse 69 07/05/20 11:28 Resp 22 H 07/05/20 11:28 BP 90/54 L 07/05/20 11:28 Pulse Ox 100 07/05/20 11:28 Oxygen Flow Rate 2 06/25/20 19:03 Body Mass Index 20.5 Gen: in no acute distress HEENT: sclera anicteric, moist mucus membranes Neck: supple Lungs: inspiratory rhonchi bilaterally throughout Heart: regular rate and rhythm, no murmurs Abd: soft, non-tender, non-distended Ext: no edema Skin: warm/well-perfused Neuro: alert and oriented x3, no focal findings Psych: appropriate affect Objective Data Current Medications Generic Name Dose Route Start Last Admin Trade Name Alexandrq PRN Reason Stop Dose Admin Acetaminophen 650 mg 06/26/20 02:23 07/04/20 08:05 Acetaminophen 325 Mg Tablet PO 650 mg Q6H PRN Administration Pain, Mild (Pain Scale 1-3) Al Hydroxide/Mg Hydroxide 15 ml 06/26/20 17:47 06/26/20 18:08 Magnesium Hydrox/Alum Hydrox 30 Ml Oral.Susp PO 15 ml Q4H PRN Administration Heartburn Al Hydroxide/Mg Hydroxide 30 ml 06/29/20 11:05 06/29/20 11:24 Magnesium Hydrox/Alum Hydrox 30 Ml Oral.Susp PO 30 ml Q6H PRN Administration heart burn Al Hydroxide/Mg Hydroxide 15 ml 06/30/20 09:28 Magnesium Hydrox/Alum Hydrox 30 Ml Oral.Susp PO Q6H PRN Dyspepsia Benzonatate 100 mg 06/29/20 11:05 07/05/20 08:51 Benzonatate 100 Mg Capsule PO 100 mg TID PRN Administration Cough Diphenhydramine HCl 25 mg 06/26/20 11:16 07/04/20 21:17 Diphenhydramine Hcl 50 Mg/Ml Vial IVPUSH 25 mg Q6H PRN Administration pruritis Docusate Sodium 100 mg 06/26/20 02:23 06/30/20 09:58 Docusate Sodium 100 Mg Capsule PO 100 mg DAILY PRN Administration Constipation Docusate Sodium 100 mg 06/30/20 21:00 07/05/20 08:50 Docusate Sodium 100 Mg Capsule PO 100 mg BID [facility] Administration Doxycycline Hyclate 100 mg 07/02/20 08:15 07/05/20 08:50 Doxycycline Hyclate 100 Mg Tablet PO 100 mg Q12H [facility] Administration Enoxaparin Sodium 40 mg 07/02/20 08:15 07/05/20 08:51 Enoxaparin Sodium 40 Mg/0.4 Ml Syringe SUBCUT 40 mg Q24H [facility] Administration Furosemide 40 mg 07/04/20 18:00 07/05/20 08:51 Furosemide 40 Mg/4 Ml Vial IVPUSH 40 mg BID@0900,1800 [facility] Administration Protocol Hydromorphone HCl 0.5 mg 06/26/20 02:23 07/05/20 10:08 Hydromorphone Hcl 0.5 Mg/0.5 Ml Syringe IVPUSH 0.5 mg Q4H PRN Administration Pain, Severe (Pain Scale 7-10) Hydroxyurea 500 mg 06/30/20 21:00 07/05/20 08:50 Hydroxyurea 500 Mg Capsule PO 500 mg BID [facility] Administration Hydroxyzine HCl 25 mg 06/30/20 09:26 07/05/20 04:08 Hydroxyzine Hcl 25 Mg Tablet PO 25 mg QID PRN Administration anxiety Lactulose 10 gm 06/30/20 09:27 07/01/20 20:04 Lactulose 20 Gm/30 Ml Solution PO 10 gm DAILY PRN Administration constipation Lorazepam 0.25 mg 06/26/20 16:00 07/04/20 21:32 Lorazepam 0.5 Mg Tablet PO 0.25 mg Q8H PRN Administration anxiety Methylprednisolone Sodium Succinate 40 mg 07/03/20 18:00 07/05/20 05:43 Methylprednisolone Sod Succ 40 Mg/Ml Vial IVPUSH 40 mg Q12H [facility] Administration Nicotine Polacrilex 4 mg 07/01/20 09:58 07/01/20 10:09 Nicotine Polacrilex 2 Mg Gum BUCCAL 4 mg Q2H PRN Administration withdrawl Omeprazole 40 mg 06/30/20 09:30 07/05/20 05:43 Omeprazole 40 Mg Capsule.Dr PO 40 mg DAILY@0630 [facility] Administration Ondansetron HCl 4 mg 06/26/20 02:23 Ondansetron Hcl 4 Mg/2 Ml Vial IVPUSH Q8H PRN Nausea and Vomiting Oxycodone HCl 5 mg 06/26/20 02:23 07/05/20 08:50 Oxycodone Hcl Immed Release 5 Mg Tablet PO 5 mg Q6H PRN Administration Pain, Severe (Pain Scale 7-10) Pharmacy Consult 1 each 06/29/20 09:09 Consult Rx Vancomycin Dosing MISCELLANE DAILY PRN Consult order Sodium Chloride 3 ml 06/26/20 08:00 07/05/20 08:51 0.9 % Sodium Chloride Flush 3 Ml Syringe IVFLUSH 3 ml QSHIFT [facility] Administration Labs CBC & Chem 7: 07/03/20 03:22 07/01/20 06:24 Microbiology Microbiology Results: Microbiology 06/25/20 20:24 Blood - Venous Blood Culture - Final No growth after 5 days. 06/25/20 20:02 Blood - Venous Blood Culture - Final No growth after 5 days. Assessment and Plan (1) Sickle cell anemia with crisis: Status: Acute (2) Acute respiratory failure with hypoxia: Status: Acute (3) Cocaine abuse: Status: Acute (4) Bipolar 1 disorder: Status: Acute Assessment and Plan: hospital d#9 50yo F with sickle cell disease + recent COVID-19 pneumonia readmitted to hospital with hypoxia acute hypoxic resp failure - likely from post-COVID inflammatory changes +/- superimposed bacterial pneumonia and sickle cell crisis. on steroids pulm appreciated, may be element of fluid overload, will continue to diurese hematology appreciated, conitnue hydrea, no indication for plasma exchange at this time doxy day 8, completed 7 days ceftriaxone o2 requirements increased yesterday, now on high flow, but satting well, will try to wean. patient continuously refusing labs, difficult to optimally treat, unclear status of any hemolysis, patient is aware that this will make it harder to make therapeutic decisions. tobacco abuse NRT hx bipolar disorder not on any mood stabilizers GERD continue PPI VTE ppx continue LMWH
[2020-07-05] MEDS: HYDROmorphone HCl 0.5 MG/0.5 ML SYRINGE 1 MG IVPUSH ×3 (13:58→22:06)
[2020-07-05] MEDS: diphenhydrAMINE HCL 50 MG/ML VIAL 25 MG IVPUSH (20:30)
[2020-07-06] VITALS (13 sets, daily range): BP systolic 99–110; BP diastolic 52–61; PULSE 60–93; RESP 18–22; TEMP 36.3–36.7; O2SAT 88–100
[2020-07-06] MEDS: HYDROmorphone HCl 0.5 MG/0.5 ML SYRINGE 1 MG IVPUSH ×5 (04:18→21:55)
[2020-07-06] MEDS: methylPREDNISolone Sod Succ 40 MG/ML VIAL IVPUSH ×2 (05:14→17:03)
[2020-07-06] MEDS: Omeprazole 40 MG CAPSULE.DR PO (05:45)
[2020-07-06 06:59] LABS: Hematocrit 24.5 % (37-47); Hemoglobin 8.8 g/dl (12.0-16.0); Mean Corpuscular HGB Conc 35.9 g/dl (31.0-35.0); Mean Corpuscular Hemoglobin 33.5 pg (27.0-33.0); Mean Corpuscular Volume 93.2 fL (80-98); PLT CLUMP 1; Red Blood Count 2.63 X10*6/uL (4.20-5.50); Red Cell Distribution Width 22.4 % (11.0-16.0)
[2020-07-06 07:12] LABS: NRBC Pct Auto 5.7 /100WBC (0.0-0.2)
[2020-07-06 07:29] LABS: White Blood Count 13.5 X10*3/uL (4.8-10.8)
[2020-07-06 07:30] LABS: Platelet Count 95 X10*3/uL (160-400)
[2020-07-06 07:53] LABS: Alanine Aminotransferase 23 U/L (0-31); Albumin Level 2.8 g/dL (3.5-5.0); Alkaline Phosphatase 204 U/L (39-117); Anion Gap 19 (12-20); Aspartate Amino Transferase 30 U/L (5-31); Bilirubin Direct 0.7 mg/dL (0.0-0.5); Bilirubin Total 1.7 mg/dL (0.0-1.0); Blood Urea Nitrogen 50 mg/dL (9-16); Calcium 9.1 mg/dL (8.4-10.2); Carbon Dioxide 25 mmol/L (22-29); Chloride 106 mmol/L (96-108); Creatinine Clr Calc Pharmacy 51.7; Estimated Glomerular Filt Rate 51; Glucose Fasting 153 mg/dL (60-99); Potassium 6.7 mmol/L (3.3-5.1); Sodium 143 mmol/L (135-145); Total Protein 6.4 g/dL (6.5-8.0)
[2020-07-06] MEDS: Furosemide 40 MG/4 ML VIAL IVPUSH (08:20)
[2020-07-06] MEDS: Enoxaparin Sodium 40 MG/0.4 ML SYRINGE SUBCUT (08:21)
[2020-07-06] MEDS: Docusate Sodium 100 MG CAPSULE PO ×2 (08:21→21:55)
[2020-07-06] MEDS: Hydroxyurea 500 MG CAPSULE PO ×2 (09:47→21:55)
--- NOTE | 2020-07-06 10:14 | HO.PM.IMPN ---
Subjective Subjective Date of Service: 07/06/20 Interval History: sob stable Cardiovascular Cardiovascular: Reports no additional cardiovascular complaints Respiratory Respiratory: Reports no additional respiratory complaints Physical Exam Vital Signs: Vital Signs: Last Vital Signs Temp 97.3 F 07/06/20 07:55 Pulse 77 07/06/20 07:55 Resp 22 H 07/06/20 07:55 BP 104/59 L 07/06/20 07:55 Pulse Ox 94 07/06/20 07:55 Oxygen Flow Rate 2 06/25/20 19:03 Body Mass Index 20.5 Gen: in no acute distress HEENT: sclera anicteric, moist mucus membranes Neck: supple Lungs: inspiratory rhonchi bilaterally throughout Heart: regular rate and rhythm, no murmurs Abd: soft, non-tender, non-distended Ext: no edema Skin: warm/well-perfused Neuro: alert and oriented x3, no focal findings Psych: appropriate affect Objective Data Current Medications Generic Name Dose Route Start Last Admin Trade Name Freq PRN Reason Stop Dose Admin Acetaminophen 650 mg 06/26/20 02:23 07/04/20 08:05 Acetaminophen 325 Mg Tablet PO 650 mg Q6H PRN Administration Pain, Mild (Pain Scale 1-3) Al Hydroxide/Mg Hydroxide 15 ml 06/26/20 17:47 06/26/20 18:08 Magnesium Hydrox/Alum Hydrox 30 Ml Oral.Susp PO 15 ml Q4H PRN Administration Heartburn Al Hydroxide/Mg Hydroxide 30 ml 06/29/20 11:05 06/29/20 11:24 Magnesium Hydrox/Alum Hydrox 30 Ml Oral.Susp PO 30 ml Q6H PRN Administration heart burn Al Hydroxide/Mg Hydroxide 15 ml 06/30/20 09:28 Magnesium Hydrox/Alum Hydrox 30 Ml Oral.Susp PO Q6H PRN Dyspepsia Benzonatate 100 mg 06/29/20 11:05 07/05/20 08:51 Benzonatate 100 Mg Capsule PO 100 mg TID PRN Administration Cough Diphenhydramine HCl 25 mg 06/26/20 11:16 07/05/20 20:30 Diphenhydramine Hcl 50 Mg/Ml Vial IVPUSH 25 mg Q6H PRN Administration pruritis Docusate Sodium 100 mg 06/26/20 02:23 07/06/20 08:21 Docusate Sodium 100 Mg Capsule PO 100 mg DAILY PRN Administration Constipation Docusate Sodium 100 mg 06/30/20 21:00 07/06/20 08:30 Docusate Sodium 100 Mg Capsule PO Not Given BID [facility] Doxycycline Hyclate 100 mg 07/02/20 08:15 07/06/20 08:21 Doxycycline Hyclate 100 Mg Tablet PO 100 mg Q12H [facility] Administration Enoxaparin Sodium 40 mg 07/02/20 08:15 07/06/20 08:21 Enoxaparin Sodium 40 Mg/0.4 Ml Syringe SUBCUT 40 mg Q24H [facility] Administration Hydromorphone HCl 1 mg 07/05/20 12:22 07/06/20 08:20 Hydromorphone Hcl 0.5 Mg/0.5 Ml Syringe IVPUSH 1 mg Q4H PRN Administration Pain, Severe (Pain Scale 7-10) Hydroxyurea 500 mg 06/30/20 21:00 07/06/20 09:47 Hydroxyurea 500 Mg Capsule PO 500 mg BID [facility] Administration Hydroxyzine HCl 25 mg 06/30/20 09:26 07/05/20 20:29 Hydroxyzine Hcl 25 Mg Tablet PO 25 mg QID PRN Administration anxiety Lactulose 10 gm 06/30/20 09:27 07/01/20 20:04 Lactulose 20 Gm/30 Ml Solution PO 10 gm DAILY PRN Administration constipation Methylprednisolone Sodium Succinate 40 mg 07/03/20 18:00 07/06/20 05:14 Methylprednisolone Sod Succ 40 Mg/Ml Vial IVPUSH 40 mg Q12H [facility] Administration Nicotine Polacrilex 4 mg 07/01/20 09:58 07/01/20 10:09 Nicotine Polacrilex 2 Mg Gum BUCCAL 4 mg Q2H PRN Administration withdrawl Omeprazole 40 mg 06/30/20 09:30 07/06/20 05:45 Omeprazole 40 Mg Capsule.Dr PO 40 mg DAILY@0630 [facility] Administration Ondansetron HCl 4 mg 06/26/20 02:23 Ondansetron Hcl 4 Mg/2 Ml Vial IVPUSH Q8H PRN Nausea and Vomiting Sodium Chloride 3 ml 06/26/20 08:00 07/06/20 08:21 0.9 % Sodium Chloride Flush 3 Ml Syringe IVFLUSH Not Given QSHIFT [facility] Labs CBC & Chem 7: 07/06/20 05:58 07/06/20 05:58 Microbiology Microbiology Results: Microbiology 06/25/20 20:24 Blood - Venous Blood Culture - Final No growth after 5 days. 06/25/20 20:02 Blood - Venous Blood Culture - Final No growth after 5 days. Assessment and Plan (1) Sickle cell anemia with crisis: Status: Acute (2) Acute respiratory failure with hypoxia: Status: Acute (3) Cocaine abuse: Status: Acute (4) Bipolar 1 disorder: Status: Acute Assessment and Plan: 50yo F with sickle cell disease + recent COVID-19 pneumonia readmitted to hospital with hypoxia acute hypoxic resp failure - likely from post-COVID inflammatory changes +/- superimposed bacterial pneumonia and sickle cell crisis. on steroids pulm appreciated, may be element of fluid overload, diuresed well, will dc iv lasix hematology appreciated, conitnue hydrea, no indication for plasma exchange at this time, hgb stable, no evidence of hemolysis doxy day 9, completed 7 days ceftriaxone o2 requirements somewhat better today, wean o2 as tolerated hyperkalemia suspect specimen is hemolysed check repeat tobacco abuse NRT hx bipolar disorder not on any mood stabilizers GERD continue PPI VTE ppx continue LMWH
[2020-07-06 10:37] LABS: Potassium 5.6 mmol/L (3.3-5.1)
--- NOTE | 2020-07-06 11:00 | CA_ITS ---
Transthoracic Echocardiogram Patient (Last, First, Middle): [place] Vizcaino, Gender: Female Date of : 1970 Age: 50 Procedure Date: 07/06/2020 Procedure Type: Transthoracic Echocardiogram Location[place] [facility] [place] Height: 162.56 cm Weight: 54.43 kg BSA: 1.57 m2 Heart Rate: bpm BP: 139 / 78 mmHg Motor Driver: Referring MD: Darin Genao MD Symptoms: dyspnea, hypoxemia Study Quality: Good Conclusions: - The left ventricular systolic function is normal. The visually estimated ejection fraction is between 65-70%. - E/E prime ratio is <8, consistent with normal filling pressures. - Normal right ventricular cavity size and systolic function. - The left atrium is moderately dilated. - No significant valvular or pericardial pathology. Findings Left Ventricle Normal left ventricular cavity size. There is moderately increased left ventricular wall thickness. The left ventricular systolic function is normal. The visually estimated ejection fraction is between 65-70%. There is no evidence of regional wall motion abnormalities. Abnormal diastolic function is noted. Spectral Doppler is indicative of an impaired relaxation filling pattern. E/E prime ratio is <8, consistent with normal filling pressures. Right Ventricle Normal right ventricular cavity size and systolic function. Atria The left atrium is moderately dilated. Aortic Valve Normal aortic valve structure and function. There is no aortic valve stenosis. There is no aortic valve regurgitation. Mitral Valve Normal mitral valve structure and function. There is trace mitral valve regurgitation. There is no mitral valve stenosis. Pulmonic Valve The pulmonic valve is likely normal. Tricuspid Valve Normal tricuspid valve structure. Tricuspid regurgitation envelope is inadequate for calculation of right ventricular systolic pressure. Normal right atrial pressure. Great Vessels The pulmonary artery was not well visualized. Venous The inferior vena cava is normal in size and collapses greater than 50% with inspiration. Pericardium/Pleural There is no evidence of pericardial effusion. Prior Study Comparison No prior study available for comparison. Measurements 2D Linear Measurements IVSd: 1.26 0.6-0.9/0.6-1.0 cm LVIDd: 4.50 3.9-5.3/4.2-5.9 cm LVIDd Index: 2.87 2.4-3.2/2.2-3.1 cm/m2 LVIDs: 2.73 2.0-3.6 cm LVPWd: 1.26 0.7-1.1 cm Ao Root: 2.90 2.1-3.5 cm LA Diam: 3.80 2.7-3.8/3.0-4.0 cm LAIDs Index: 2.42 1.5-2.3 cm/m2 LV Mass: 265.02 67-162/88-224 g LV Mass Index: 168.80 43-95/49-115 g/m2 LVOT Diam: 2.70 3.0+(-)1.3 cm Mitral Valve MV Pk E: 0.51 MV PK A: 0.77 MV Decel Time: 111.00 E/A: 0.70 E'Lateral: 7.74 E'Medial: 6.29 E/E' Med: 8.20 E/E' Lat: 6.60 PHT: 32.00 MVA PHT: 6.88 Decel Grant: 4.64 Aortic Valve AoV Pk Chris: 1.62 AoV Mn Chris: 1.04 AoV VTI: 0.33 AoV Pk Grad: 10.00 Aov Mn Grad: 5.00 GERSON Cont.VTI: 4.45 LVOT LVOT Pk Chris: 1.05 LVOT Mn Chris: 0.67 LVOT VTI: 0.25 LVOT Pk Grad: 4.00 LVOT Mn Grad: 2.00 LVOT Diam: 2.70 LVOT Area: 5.73 Diastolic Function MV Pk E: 0.51 MV Pk A: 0.77 E/A: 0.70 E'Medial: 6.29 E/E' Med: 8.20 E' Laterial: 7.74 E/E' Lat: 6.60 Tricuspid Valve TR Pk Chris: 2.03 TR Pk Grad: 16.00 Great Vessels Aorta Ao Root-2D: 2.90 2.0-3.7 cm Pulmonary Valve PV Pk Chris: 1.09 Peak PV Grad: 5.00 Updated in Other Vendor System with Status of Final Sujit Goddard MD electronically signed on 07/07/2020 5:07:12 PM with status of Final
--- NOTE | 2020-07-06 14:07 | MHC.CM.PN ---
DP Female 50 DX Covid. LOS r/t the continued need for supplemental oxygen. Pt plans to discharge back to her hotel. CM will follow to assess for a change in discharge needs and plan.
[2020-07-06] MEDS: 0.9 % Sodium Chloride Flush 3 ML SYRINGE IVFLUSH (17:03)
[2020-07-06] MEDS: hydrOXYzine HCL 25 MG TABLET PO (17:10)
[2020-07-06] MEDS: diphenhydrAMINE HCL 50 MG/ML VIAL 25 MG IVPUSH (22:02)
[2020-07-07] VITALS (16 sets, daily range): BP systolic 101–132; BP diastolic 56–88; PULSE 60–92; RESP 16–24; TEMP 36.2–37.1; O2SAT 87–95
[2020-07-07] MEDS: 0.9 % Sodium Chloride Flush 3 ML SYRINGE IVFLUSH ×4 (00:24→19:55)
[2020-07-07] MEDS: hydrOXYzine HCL 25 MG TABLET PO ×3 (00:36→19:54)
[2020-07-07] MEDS: HYDROmorphone HCl 0.5 MG/0.5 ML SYRINGE 1 MG IVPUSH ×5 (02:01→22:22)
[2020-07-07] MEDS: diphenhydrAMINE HCL 50 MG/ML VIAL 25 MG IVPUSH ×4 (04:07→23:24)
[2020-07-07 05:06] LABS: Hematocrit 22.6 % (37-47); Hemoglobin 8.1 g/dl (12.0-16.0); Mean Corpuscular HGB Conc 35.8 g/dl (31.0-35.0); Mean Corpuscular Hemoglobin 33.3 pg (27.0-33.0); Mean Platelet Volume 12.4 fL (9.4-12.3); NRBC Pct Auto 3.4 /100WBC (0.0-0.2); Platelet Count 117 X10*3/uL (160-400); Red Blood Count 2.43 X10*6/uL (4.20-5.50); Red Cell Distribution Width 21.8 % (11.0-16.0); White Blood Count 11.4 X10*3/uL (4.8-10.8)
[2020-07-07 05:32] LABS: Anion Gap 13 (12-20); Blood Urea Nitrogen 49 mg/dL (9-16); Calcium 8.8 mg/dL (8.4-10.2); Carbon Dioxide 26 mmol/L (22-29); Chloride 104 mmol/L (96-108); Creatinine Clr Calc Pharmacy 66.4; Estimated Glomerular Filt Rate > 60; Glucose Fasting 139 mg/dL (60-99); Sodium 139 mmol/L (135-145)
[2020-07-07] MEDS: Omeprazole 40 MG CAPSULE.DR PO (06:20)
[2020-07-07] MEDS: methylPREDNISolone Sod Succ 40 MG/ML VIAL IVPUSH ×2 (06:20→17:16)
[2020-07-07] MEDS: Enoxaparin Sodium 40 MG/0.4 ML SYRINGE SUBCUT (07:57)
[2020-07-07] MEDS: Docusate Sodium 100 MG CAPSULE PO ×2 (07:57→19:54)
[2020-07-07] MEDS: Hydroxyurea 500 MG CAPSULE PO ×2 (07:59→19:54)
--- NOTE | 2020-07-07 09:55 | P.PNIM_ITS ---
Subjective Subjective Date of Service: 07/07/20 Interval History: feels the same Cardiovascular Cardiovascular: Reports no additional cardiovascular complaints Gastrointestinal Gastrointestinal: Reports no additional gastrointestinal complaints Physical Exam Vital Signs: Vital Signs: Last Vital Signs Temp 97.8 F 07/07/20 07:48 Pulse 64 07/07/20 07:48 Resp 18 07/07/20 07:48 BP 132/73 07/07/20 07:48 Pulse Ox 94 07/07/20 07:48 Oxygen Flow Rate 2 06/25/20 19:03 Body Mass Index 20.5 Gen: in no acute distress HEENT: sclera anicteric, moist mucus membranes Neck: supple Lungs: inspiratory rhonchi bilaterally throughout Heart: regular rate and rhythm, no murmurs Abd: soft, non-tender, non-distended Ext: no edema Skin: warm/well-perfused Neuro: alert and oriented x3, no focal findings Psych: appropriate affect Objective Data Current Medications Generic Name Dose Route Start Last Admin Trade Name Freq PRN Reason Stop Dose Admin Acetaminophen 650 mg 06/26/20 02:23 07/04/20 08:05 Acetaminophen 325 Mg Tablet PO 650 mg Q6H PRN Administration Pain, Mild (Pain Scale 1-3) Al Hydroxide/Mg Hydroxide 15 ml 06/26/20 17:47 06/26/20 18:08 Magnesium Hydrox/Alum Hydrox 30 Ml Oral.Susp PO 15 ml Q4H PRN Administration Heartburn Al Hydroxide/Mg Hydroxide 30 ml 06/29/20 11:05 06/29/20 11:24 Magnesium Hydrox/Alum Hydrox 30 Ml Oral.Susp PO 30 ml Q6H PRN Administration heart burn Al Hydroxide/Mg Hydroxide 15 ml 06/30/20 09:28 Magnesium Hydrox/Alum Hydrox 30 Ml Oral.Susp PO Q6H PRN Dyspepsia Benzonatate 100 mg 06/29/20 11:05 07/05/20 08:51 Benzonatate 100 Mg Capsule PO 100 mg TID PRN Administration Cough Diphenhydramine HCl 25 mg 06/26/20 11:16 07/07/20 04:07 Diphenhydramine Hcl 50 Mg/Ml Vial IVPUSH 25 mg Q6H PRN Administration pruritis Docusate Sodium 100 mg 06/26/20 02:23 07/06/20 08:21 Docusate Sodium 100 Mg Capsule PO 100 mg DAILY PRN Administration Constipation Docusate Sodium 100 mg 06/30/20 21:00 07/07/20 07:57 Docusate Sodium 100 Mg Capsule PO 100 mg BID [facility] Administration Doxycycline Hyclate 100 mg 07/02/20 08:15 07/07/20 07:57 Doxycycline Hyclate 100 Mg Tablet PO 100 mg Q12H [facility] Administration Enoxaparin Sodium 40 mg 07/02/20 08:15 07/07/20 07:57 Enoxaparin Sodium 40 Mg/0.4 Ml Syringe SUBCUT 40 mg Q24H [facility] Administration Hydromorphone HCl 1 mg 07/05/20 12:22 07/07/20 07:59 Hydromorphone Hcl 0.5 Mg/0.5 Ml Syringe IVPUSH 1 mg Q4H PRN Administration Pain, Severe (Pain Scale 7-10) Hydroxyurea 500 mg 06/30/20 21:00 07/07/20 07:59 Hydroxyurea 500 Mg Capsule PO 500 mg BID [facility] Administration Hydroxyzine HCl 25 mg 06/30/20 09:26 07/07/20 00:36 Hydroxyzine Hcl 25 Mg Tablet PO 25 mg QID PRN Administration anxiety Lactulose 10 gm 06/30/20 09:27 07/01/20 20:04 Lactulose 20 Gm/30 Ml Solution PO 10 gm DAILY PRN Administration constipation Methylprednisolone Sodium Succinate 40 mg 07/03/20 18:00 07/07/20 06:20 Methylprednisolone Sod Succ 40 Mg/Ml Vial IVPUSH 40 mg Q12H [facility] Administration Nicotine Polacrilex 4 mg 07/01/20 09:58 07/01/20 10:09 Nicotine Polacrilex 2 Mg Gum BUCCAL 4 mg Q2H PRN Administration withdrawl Omeprazole 40 mg 06/30/20 09:30 07/07/20 06:20 Omeprazole 40 Mg Capsule.Dr PO 40 mg DAILY@0630 [facility] Administration Ondansetron HCl 4 mg 06/26/20 02:23 Ondansetron Hcl 4 Mg/2 Ml Vial IVPUSH Q8H PRN Nausea and Vomiting Sodium Chloride 3 ml 06/26/20 08:00 07/07/20 07:59 0.9 % Sodium Chloride Flush 3 Ml Syringe IVFLUSH 3 ml QSHIFT [facility] Administration Labs CBC & Chem 7: 07/07/20 04:40 07/07/20 04:40 Microbiology Microbiology Results: Microbiology 06/25/20 20:24 Blood - Venous Blood Culture - Final No growth after 5 days. 06/25/20 20:02 Blood - Venous Blood Culture - Final No growth after 5 days. Assessment and Plan (1) Sickle cell anemia with crisis: Status: Acute (2) Acute respiratory failure with hypoxia: Status: Acute (3) Cocaine abuse: Status: Acute (4) Bipolar 1 disorder: Status: Acute Assessment and Plan: 50yo F with sickle cell disease + recent COVID-19 pneumonia readmitted to hospital with hypoxia acute hypoxic resp failure - likely from post-COVID inflammatory changes +/- superimposed bacterial pneumonia and sickle cell crisis. on steroids pulm appreciated, may be element of fluid overload, diuresed well, now off iv lasix hematology appreciated, conitnue hydrea, no indication for plasma exchange at this time, hgb stable, no evidence of hemolysis doxy day 10, completed 7 days ceftriaxone o2 requirements continue to slowly improve, wean o2 as tolerated hyperkalemia was hemolysed, repeat normal tobacco abuse NRT hx bipolar disorder not on any mood stabilizers GERD continue PPI VTE ppx continue LMWH
[2020-07-07] MEDS: HYDROmorphone HCl 0.5 MG/0.5 ML SYRINGE IVPUSH (20:15)
[2020-07-07 23:00] LABS: COVID-19 Test Negative (Negative)
[2020-07-08] VITALS (14 sets, daily range): BP systolic 101–129; BP diastolic 56–79; PULSE 69–99; RESP 18–22; TEMP 36.4–37; O2SAT 89–97
[2020-07-08] MEDS: HYDROmorphone HCl 0.5 MG/0.5 ML SYRINGE 1 MG IVPUSH ×5 (02:04→20:22)
[2020-07-08] MEDS: hydrOXYzine HCL 25 MG TABLET PO ×3 (02:48→20:21)
[2020-07-08] MEDS: methylPREDNISolone Sod Succ 40 MG/ML VIAL IVPUSH (05:52)
[2020-07-08] MEDS: diphenhydrAMINE HCL 50 MG/ML VIAL 25 MG IVPUSH ×4 (05:52→22:26)
[2020-07-08] MEDS: Omeprazole 40 MG CAPSULE.DR PO (05:52)
[2020-07-08] MEDS: Hydroxyurea 500 MG CAPSULE PO ×2 (09:11→20:26)
[2020-07-08] MEDS: 0.9 % Sodium Chloride Flush 3 ML SYRINGE IVFLUSH ×2 (09:11→15:34)
[2020-07-08] MEDS: predniSONE 20 MG TABLET 40 MG PO (09:11)
[2020-07-08] MEDS: Docusate Sodium 100 MG CAPSULE PO ×2 (09:11→20:27)
[2020-07-08] MEDS: Enoxaparin Sodium 40 MG/0.4 ML SYRINGE SUBCUT (09:34)
--- NOTE | 2020-07-08 10:27 | P.PNIM_ITS ---
Subjective Subjective Date of Service: 07/08/20 Interval History: stable Cardiovascular Cardiovascular: Reports no additional cardiovascular complaints Gastrointestinal Gastrointestinal: Reports no additional gastrointestinal complaints Physical Exam Vital Signs: Vital Signs: Last Vital Signs Temp 98.6 F 07/08/20 07:45 Pulse 86 07/08/20 07:45 Resp 20 07/08/20 08:49 BP 126/66 07/08/20 07:45 Pulse Ox 93 07/08/20 07:45 Oxygen Flow Rate 2 06/25/20 19:03 Body Mass Index 20.5 Gen: in no acute distress HEENT: sclera anicteric, moist mucus membranes Neck: supple Lungs: inspiratory rhonchi bilaterally throughout Heart: regular rate and rhythm, no murmurs Abd: soft, non-tender, non-distended Ext: no edema Skin: warm/well-perfused Neuro: alert and oriented x3, no focal findings Psych: appropriate affect Objective Data Current Medications Generic Name Dose Route Start Last Admin Trade Name Freq PRN Reason Stop Dose Admin Acetaminophen 650 mg 06/26/20 02:23 07/04/20 08:05 Acetaminophen 325 Mg Tablet PO 650 mg Q6H PRN Administration Pain, Mild (Pain Scale 1-3) Al Hydroxide/Mg Hydroxide 15 ml 06/26/20 17:47 06/26/20 18:08 Magnesium Hydrox/Alum Hydrox 30 Ml Oral.Susp PO 15 ml Q4H PRN Administration Heartburn Al Hydroxide/Mg Hydroxide 30 ml 06/29/20 11:05 06/29/20 11:24 Magnesium Hydrox/Alum Hydrox 30 Ml Oral.Susp PO 30 ml Q6H PRN Administration heart burn Al Hydroxide/Mg Hydroxide 15 ml 06/30/20 09:28 Magnesium Hydrox/Alum Hydrox 30 Ml Oral.Susp PO Q6H PRN Dyspepsia Benzonatate 100 mg 06/29/20 11:05 07/05/20 08:51 Benzonatate 100 Mg Capsule PO 100 mg TID PRN Administration Cough Diphenhydramine HCl 25 mg 06/26/20 11:16 07/08/20 05:52 Diphenhydramine Hcl 50 Mg/Ml Vial IVPUSH 25 mg Q6H PRN Administration pruritis Docusate Sodium 100 mg 06/26/20 02:23 07/06/20 08:21 Docusate Sodium 100 Mg Capsule PO 100 mg DAILY PRN Administration Constipation Docusate Sodium 100 mg 06/30/20 21:00 07/08/20 09:11 Docusate Sodium 100 Mg Capsule PO 100 mg BID [facility] Administration Doxycycline Hyclate 100 mg 07/02/20 08:15 07/08/20 09:11 Doxycycline Hyclate 100 Mg Tablet PO 100 mg Q12H [facility] Administration Enoxaparin Sodium 40 mg 07/02/20 08:15 07/08/20 09:34 Enoxaparin Sodium 40 Mg/0.4 Ml Syringe SUBCUT 40 mg Q24H [facility] Administration Hydromorphone HCl 1 mg 07/05/20 12:22 07/08/20 05:53 Hydromorphone Hcl 0.5 Mg/0.5 Ml Syringe IVPUSH 1 mg Q4H PRN Administration Pain, Severe (Pain Scale 7-10) Hydroxyurea 500 mg 06/30/20 21:00 07/08/20 09:11 Hydroxyurea 500 Mg Capsule PO 500 mg BID [facility] Administration Hydroxyzine HCl 25 mg 06/30/20 09:26 07/08/20 02:48 Hydroxyzine Hcl 25 Mg Tablet PO 25 mg QID PRN Administration anxiety Lactulose 10 gm 06/30/20 09:27 07/01/20 20:04 Lactulose 20 Gm/30 Ml Solution PO 10 gm DAILY PRN Administration constipation Nicotine Polacrilex 4 mg 07/01/20 09:58 07/01/20 10:09 Nicotine Polacrilex 2 Mg Gum BUCCAL 4 mg Q2H PRN Administration withdrawl Omeprazole 40 mg 06/30/20 09:30 07/08/20 05:52 Omeprazole 40 Mg Capsule.Dr PO 40 mg DAILY@0630 [facility] Administration Ondansetron HCl 4 mg 06/26/20 02:23 Ondansetron Hcl 4 Mg/2 Ml Vial IVPUSH Q8H PRN Nausea and Vomiting Prednisone 40 mg 07/08/20 09:00 07/08/20 09:11 Prednisone 20 Mg Tablet PO 40 mg DAILY [facility] Administration Sodium Chloride 3 ml 06/26/20 08:00 07/08/20 09:11 0.9 % Sodium Chloride Flush 3 Ml Syringe IVFLUSH 3 ml QSHIFT [facility] Administration Labs CBC & Chem 7: 07/07/20 04:40 07/07/20 04:40 Microbiology Microbiology Results: Microbiology 06/25/20 20:24 Blood - Venous Blood Culture - Final No growth after 5 days. 06/25/20 20:02 Blood - Venous Blood Culture - Final No growth after 5 days. Assessment and Plan (1) Sickle cell anemia with crisis: Status: Acute (2) Acute respiratory failure with hypoxia: Status: Acute (3) Cocaine abuse: Status: Acute (4) Bipolar 1 disorder: Status: Acute Assessment and Plan: 50yo F with sickle cell disease + recent COVID-19 pneumonia readmitted to hospital with hypoxia acute hypoxic resp failure - likely from post-COVID inflammatory changes +/- superimposed bacterial pneumonia and sickle cell crisis. on steroids - will change to prednisone 40mg daily today, continue to wean pulm appreciated, may be element of fluid overload, diuresed well, now off iv lasix hematology appreciated, continue hydrea, no indication for plasma exchange at this time, hgb stable, no evidence of hemolysis completed 7 days rocephin, 10 days doxy, will dc antibiotics o2 requirements continue to slowly improve, wean o2 as tolerated covid pcr now negative, antibody positive, can dc precautions hyperkalemia was hemolysed, repeat normal tobacco abuse NRT hx bipolar disorder not on any mood stabilizers GERD continue PPI VTE ppx continue LMWH
[2020-07-09] VITALS (10 sets, daily range): BP systolic 98–133; BP diastolic 50–70; PULSE 80–113; RESP 18–94; TEMP 36.6–37.1; O2SAT 24–98
[2020-07-09] MEDS: 0.9 % Sodium Chloride Flush 3 ML SYRINGE IVFLUSH ×3 (01:11→17:03)
[2020-07-09] MEDS: HYDROmorphone HCl 0.5 MG/0.5 ML SYRINGE 1 MG IVPUSH ×5 (01:20→21:26)
[2020-07-09] MEDS: diphenhydrAMINE HCL 50 MG/ML VIAL 25 MG IVPUSH ×4 (04:40→22:06)
[2020-07-09] MEDS: Acetaminophen 325 MG TABLET 650 MG PO ×2 (04:41→20:11)
[2020-07-09] MEDS: Omeprazole 40 MG CAPSULE.DR PO (05:51)
[2020-07-09] MEDS: hydrOXYzine HCL 25 MG TABLET PO ×2 (05:51→20:11)
[2020-07-09 07:13] LABS: Hematocrit 23.9 % (37-47); Hemoglobin 8.5 g/dl (12.0-16.0); Mean Corpuscular HGB Conc 35.6 g/dl (31.0-35.0); Mean Corpuscular Hemoglobin 32.8 pg (27.0-33.0); Mean Corpuscular Volume 92.3 fL (80-98); Mean Platelet Volume 11.5 fL (9.4-12.3); Red Blood Count 2.59 X10*6/uL (4.20-5.50); Red Cell Distribution Width 21.9 % (11.0-16.0); White Blood Count 23.8 X10*3/uL (4.8-10.8)
[2020-07-09 07:15] LABS: NRBC Pct Auto 1.9 /100WBC (0.0-0.2)
[2020-07-09 07:41] LABS: Anion Gap 14 (12-20); Blood Urea Nitrogen 38 mg/dL (9-16); Carbon Dioxide 24 mmol/L (22-29); Chloride 108 mmol/L (96-108); Creatinine Clr Calc Pharmacy 67.9; Estimated Glomerular Filt Rate > 60; Glucose Fasting 110 mg/dL (60-99); Potassium 4.6 mmol/L (3.3-5.1); Sodium 141 mmol/L (135-145)
[2020-07-09 07:57] LABS: Platelet Count 144 X10*3/uL (160-400)
[2020-07-09] MEDS: Docusate Sodium 100 MG CAPSULE PO ×2 (08:50→20:12)
[2020-07-09] MEDS: Hydroxyurea 500 MG CAPSULE PO ×2 (08:50→20:14)
[2020-07-09] MEDS: Enoxaparin Sodium 40 MG/0.4 ML SYRINGE SUBCUT (08:50)
[2020-07-09] MEDS: predniSONE 20 MG TABLET 40 MG PO (08:50)
--- NOTE | 2020-07-09 11:43 | MHC.CM.PN ---
Per ROUNDS discussion, Patient is not yet medically cleared for dc (NRB/High Flow O2, IV Benadryl, IV Dilaudid).DC plan is TBD at this point- referral sent out to [facility]. CM will follow.
--- NOTE | 2020-07-09 13:27 | PM.PNPUL ---
Subjective Subjective Date of Service: 07/09/20 Principal diagnosis: covid-19 PNEUMONIA /ARDS Interval history: I SAW THIS 50 YEARS OLD FEMALE TODAY FOR PULMONARY FOLLOW-UP. BECAUSE HER HYPOXEMIA IS GETTING WORSE AND SHE IS REQUIRING HIGH-FLOW O2. THIS PATIENT WITH CHRONIC SICKLE CELL DISEASE WAS ADMITTED TO TO [facility] ON 06/14 WITH ACUTE COVID PNEUMONIA. TREATED WITH THE DEXAMETHASONE, BUT NOT WITH ANTIVIRAL REGIMEN. SIGNED OUT AGAINST MEDICAL ADVICE ON 06/18. RETURNED TO THE HOSPITAL ON 06/26 WITH INCREASED DYSPNEA. NO FEVER OR CHILLS WERE REPORTED. CHEST X-RAY AND CTA OF THE CHEST NEGATIVE FOR PULMONARY EMBOLISM BUT SHOWED BILATERAL EXTENSIVE INFILTRATES CONSISTENT WITH POST COVID PNEUMONIA. PATIENT WAS TREATED EMPIRICALLY FOR CAP. AND ALSO STARTED ON IV SOLU-MEDROL WHICH SHE RECEIVED FOR SEVERAL DAYS, AND NOW IS ON ORAL PREDNISONE 40 MG A DAY. SHE CONTINUES TO REQUIRE HIGH FIO2 , VIA HIGH HANANE OR NON REBREATHER MASK. SHE CONTINUES TO HAVE LOT OF PAIN RELATED TO HER UNDERLYING SICKLE CELL DISEASE. Objective Data Labs CBC & Chem 7: 07/09/20 06:54 07/09/20 06:54 Labs: Laboratory Results - last 24 hr 07/09/20 07/09/20 06:54 06:54 WBC 23.8 H RBC 2.59 L Hgb 8.5 L Hct 23.9 L MCV 92.3 MCH 32.8 MCHC 35.6 H RDW 21.9 H Plt Count 144 L MPV 11.5 Absolute Nucleated RBC 0.450 H Nucleated RBC % (auto) 1.9 H Sodium 141 Potassium 4.6 Chloride 108 Carbon Dioxide 24 Anion Gap 14 BUN 38 H Creatinine 0.86 Estim Creat Clear Calc 67.9 Estimated GFR > 60 Fasting Glucose 110 H Calcium 9.0 Microbiology Microbiology Results: Microbiology 06/25/20 20:24 Blood - Venous Blood Culture - Final No growth after 5 days. 06/25/20 20:02 Blood - Venous Blood Culture - Final No growth after 5 days. Review of Systems Review of Systems Yes all other systems are reviewed and are negative Physical Exam Vital Signs: Vital Signs: Last Vital Signs Temp 97.9 F 07/09/20 11:14 Pulse 94 07/09/20 11:14 Resp 18 07/09/20 11:14 BP 120/67 07/09/20 11:14 Pulse Ox 92 07/09/20 11:14 Oxygen Flow Rate 2 06/25/20 19:03 Body Mass Index 20.5 Const: General: alert, awake and acute distress (MODERATE .); No comfortable (COMPLAINS OF LOT OF PAIN ALL OVER.) Orientation/consciousness: patient oriented x3 HENMT: Head: Yes normal to inspection General nose exam: No nasal polyps present and No nasal discharge present Face and sinus: Yes sinuses nontender Mouth: oropharynx normal Throat: Yes posterior oropharynx normal Eyes: General: appearance normal, both eyes and all related structures Neck: Neck: Yes normal visual inspection, Yes no lymphadenopathy, Yes trachea midline and Yes no JVD Thyroid: Thyroid normal Chest: Chest palpation & inspection: normal inspection of the chest, normal palpation of entire chest wall and no tenderness Resp: Other: EQUAL BREATH SOUNDS ON BOTH SIDES. BREATH SOUNDS ARE SOMEWHAT HARSH. INSPIRATORY CRACKLES HEARD OVER THE BASILAR AREAS. Cardio: Palpation: normal PMI Rate: regular rate Rhythm: regular rhythm Heart sounds: no gallops and no murmurs GI: Palpation (GI): Soft to palpation, nontender, No hepatosplenomegaly present and no masses Auscultation: normal bowel sounds Back/Spine/Pelvis: Thoracic/Lumbar Spine: thoracic and lumbar spine normal to inspection Skin: General skin exam: no rashes or lesions noted Neuro: General: patient oriented x3 and no focal motor deficits Cranial nerves: Yes CN's II-XII intact bilaterally Extrem: General: Yes normal to inspection, Yes no clubbing, cyanosis or edema, Yes no calf tenderness and No venous stasis dermatitis Psych: Speech and movement: Normal speech and movement present Procedures Date of Service Date of Service: 07/09/20 Assessment and Plan Assessment and plan (1) Pneumonia due to 2019 novel coronavirus: Problem details: RADIOLOGICALLY, SHE HAS DENSE INFILTRATES ON BOTH SIDES, SUGGESTING CONTINUED BILATERAL PNEUMONITIS, AND MAY BE GOING INTO PROLIFERATION/FIBROTIC CHANGES. TX CONTINUE PREDNISONE 40 MG DAILY, WE DISCUSSED ABOUT POSSIBLE BRONCHOSCOPY, BRONCHIAL LOW WALL LARGE AND CULTURES, BUT PATIENT NOT AN ADEQUATE CANDIDATE FOR THIS PROCEDURE AT THIS TIME. Status: Acute (2) Acute respiratory failure with hypoxia: Problem details: PATIENT IS IN ARDS. AND LOT OF V-Q ABNORMALITIES TX CONTINUE O2 BY A NON-REBREATHER MASK OR HIGH-HANANE WITH GOAL TO KEEP O2 SAT ABOVE 90%. IF HYPOXEMIA GETS WORSE SHE WOULD NEED NON INVASIVE VENTILATORY SUPPORT, OR INTUBATION AND VENT SUPPORT. Status: Acute (3) Anemia: Problem details: ANEMIA CONSISTENT WITH CHRONIC SICKLE CELL DISEASE, AND CURRENTLY HEMOGLOBIN IS HOLDING STABLE. Status: Acute Time Spent With Patient Time: Total time spent is greater than 50% in coordination of care (as documented) at patient's floor/unit and/or counseling patient: Time with patient: 25 - 35 minutes
--- NOTE | 2020-07-09 15:26 | HO.PM.IMPN ---
Subjective Subjective Date of Service: 07/09/20 Interval History: remains on HFNC with FiO2 75% @ 60 Lpm c/o ongoing shortness of breath + chest pain no fever or cough Physical Exam Vital Signs: Vital Signs: Last Vital Signs Temp 98.0 F 07/09/20 15:21 Pulse 86 07/09/20 15:21 Resp 18 07/09/20 15:21 BP 98/50 L 07/09/20 15:21 Pulse Ox 97 07/09/20 15:21 Oxygen Flow Rate 2 06/25/20 19:03 Body Mass Index 20.5 Gen: comfortable on HFNC HEENT: sclera anicteric, moist mucus membranes Neck: supple Lungs: inspiratory rhonchi and crackles throughout all lung menendez Heart: regular rate and rhythm, no murmurs Abd: soft, non-tender, non-distended Ext: no edema Skin: warm/well-perfused Neuro: alert and oriented x3, no focal findings Psych: appropriate affect Objective Data Current Medications Generic Name Dose Route Start Last Admin Trade Name Alexandrq PRN Reason Stop Dose Admin Acetaminophen 650 mg 06/26/20 02:23 07/09/20 04:41 Acetaminophen 325 Mg Tablet PO 650 mg Q6H PRN Administration Pain, Mild (Pain Scale 1-3) Al Hydroxide/Mg Hydroxide 15 ml 06/26/20 17:47 06/26/20 18:08 Magnesium Hydrox/Alum Hydrox 30 Ml Oral.Susp PO 15 ml Q4H PRN Administration Heartburn Al Hydroxide/Mg Hydroxide 30 ml 06/29/20 11:05 06/29/20 11:24 Magnesium Hydrox/Alum Hydrox 30 Ml Oral.Susp PO 30 ml Q6H PRN Administration heart burn Al Hydroxide/Mg Hydroxide 15 ml 06/30/20 09:28 Magnesium Hydrox/Alum Hydrox 30 Ml Oral.Susp PO Q6H PRN Dyspepsia Benzonatate 100 mg 06/29/20 11:05 07/05/20 08:51 Benzonatate 100 Mg Capsule PO 100 mg TID PRN Administration Cough Diphenhydramine HCl 25 mg 06/26/20 11:16 07/09/20 10:52 Diphenhydramine Hcl 50 Mg/Ml Vial IVPUSH 25 mg Q6H PRN Administration pruritis Docusate Sodium 100 mg 06/26/20 02:23 07/06/20 08:21 Docusate Sodium 100 Mg Capsule PO 100 mg DAILY PRN Administration Constipation Docusate Sodium 100 mg 06/30/20 21:00 07/09/20 08:50 Docusate Sodium 100 Mg Capsule PO 100 mg BID PHILLIP Administration Enoxaparin Sodium 40 mg 07/02/20 08:15 07/09/20 08:50 Enoxaparin Sodium 40 Mg/0.4 Ml Syringe SUBCUT 40 mg Q24H PHILLIP Administration Hydromorphone HCl 1 mg 07/05/20 12:22 07/09/20 10:53 Hydromorphone Hcl 0.5 Mg/0.5 Ml Syringe IVPUSH 1 mg Q4H PRN Administration Pain, Severe (Pain Scale 7-10) Hydroxyurea 500 mg 06/30/20 21:00 07/09/20 08:50 Hydroxyurea 500 Mg Capsule PO 500 mg BID PHILLIP Administration Hydroxyzine HCl 25 mg 06/30/20 09:26 07/09/20 05:51 Hydroxyzine Hcl 25 Mg Tablet PO 25 mg QID PRN Administration anxiety Lactulose 10 gm 06/30/20 09:27 07/01/20 20:04 Lactulose 20 Gm/30 Ml Solution PO 10 gm DAILY PRN Administration constipation Nicotine Polacrilex 4 mg 07/01/20 09:58 07/01/20 10:09 Nicotine Polacrilex 2 Mg Gum BUCCAL 4 mg Q2H PRN Administration withdrawl Omeprazole 40 mg 06/30/20 09:30 07/09/20 05:51 Omeprazole 40 Mg Capsule.Dr PO 40 mg DAILY@0630 PHILLIP Administration Ondansetron HCl 4 mg 06/26/20 02:23 Ondansetron Hcl 4 Mg/2 Ml Vial IVPUSH Q8H PRN Nausea and Vomiting Prednisone 40 mg 07/08/20 09:00 07/09/20 08:50 Prednisone 20 Mg Tablet PO 40 mg DAILY PHILLIP Administration Sodium Chloride 3 ml 06/26/20 08:00 07/09/20 08:51 0.9 % Sodium Chloride Flush 3 Ml Syringe IVFLUSH 3 ml QSHIFT PHILLIP Administration Labs CBC & Chem 7: 07/09/20 06:54 07/09/20 06:54 Labs: Laboratory Results - last 24 hr 07/09/20 07/09/20 06:54 06:54 WBC 23.8 H RBC 2.59 L Hgb 8.5 L Hct 23.9 L MCV 92.3 MCH 32.8 MCHC 35.6 H RDW 21.9 H Plt Count 144 L MPV 11.5 Absolute Nucleated RBC 0.450 H Nucleated RBC % (auto) 1.9 H Sodium 141 Potassium 4.6 Chloride 108 Carbon Dioxide 24 Anion Gap 14 BUN 38 H Creatinine 0.86 Estim Creat Clear Calc 67.9 Estimated GFR > 60 Fasting Glucose 110 H Calcium 9.0 Microbiology Microbiology Results: Microbiology 06/25/20 20:24 Blood - Venous Blood Culture - Final No growth after 5 days. 06/25/20 20:02 Blood - Venous Blood Culture - Final No growth after 5 days. Assessment and Plan (1) Sickle cell anemia with crisis: Status: Acute (2) Acute respiratory failure with hypoxia: Status: Acute (3) Cocaine abuse: Status: Acute (4) Bipolar 1 disorder: Status: Acute Assessment and Plan: hospital d#14 50yo F with sickle cell disease + recent COVID-19 pneumonia readmitted to hospital with hypoxia # acute hypoxic resp failure - likely from post-COVID inflammatory changes leading to fibrosis re-consulted Pulmonology- continue prednisone 40 mg daily. bacterial PNA has been fully treated. got diuresed last week for some component of volume overload. will repeat CTA to r/o PE. discuss role of exchange transfusion with hematology for treating acute chest syndrome given persistent hypoxemia # hyperK - was due to hemolysis, repeat normal # tobacco abuse - NRT # hx bipolar disorder - not on mood stabilizers # GERD - continue PPI # VTE ppx - LMWH
[2020-07-09] MEDS: iohexoL 350 MG/ML 100 ML INFUS..BTL IV (17:59)
--- NOTE | 2020-07-09 20:06 | P.DS_ITS ---
DS: Providers Provider Date of Service: 07/12/20 Date of admission: 06/26/20 01:24 Primary care physician: Unknown Physician Consults: 06/26/20 02:23 Consult to Infectious Diseases Routine Consulting Provider: Nevin Cintron Reason for consultation: Hypoxic covid Has provider been notified: No 06/26/20 11:33 Consult to Pulmonology Routine Consulting Provider: Vincenzo Mendoza Reason for consultation: continues covid +, worsening chest CT Has provider been notified: No 07/03/20 15:28 Consult to Pulmonology Routine Consulting Provider: [facility] Reason for consultation: worsening hypoxia, likely COVID lung 07/03/20 17:13 Consult to Hematology / Oncology Routine Consulting Provider: [facility] [place] Reason for consultation: sickle cell crisis- ?exchange transfusion 07/09/20 11:01 Consult to Pulmonology Routine Consulting Provider: Cale Kowalski Reason for consultation: profound, persistent hypoxia s/p COVID-19 + sumanth terial PNA, sickle cell dz DS: Diagnosis Discharge Diagnosis (1) Sickle cell anemia with crisis: Status: Acute (2) Acute respiratory failure with hypoxia: Status: Acute (3) Cocaine abuse: Status: Acute (4) Bipolar 1 disorder: Status: Acute (5) Pneumonia due to 2019 novel coronavirus: Status: Acute (6) Sickle cell anemia with crisis: Status: Acute (7) 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: Status: Acute (8) Sepsis: Status: Acute DS: Medications Discharge Medications Home Medications: Home Medications Medication Instructions Recorded Confirmed hydroxyurea (sickle cell) 500 mg PO BID 06/26/20 06/27/20 hydroxyzine pamoate 1 cap PO QID PRN 06/26/20 06/26/20 oxycodone-acetaminophen 1 tab PO Q6-8H PRN 06/26/20 06/26/20 Previous Rx's Medication Instructions Recorded acetaminophen 650 mg PO Q6H PRN #1 tab 07/09/20 diphenhydramine HCl 25 mg IVPUSH Q6H PRN #1 ml 07/09/20 enoxaparin 40 mg SUBCUT Q24H #1 ml 07/09/20 hydromorphone 1 mg IVPUSH Q4H PRN #1 ml 07/09/20 nicotine (polacrilex) 4 mg BUCCAL Q2H PRN #1 ea 07/09/20 omeprazole 40 mg PO DAILY@0630 #1 cap 07/09/20 ondansetron HCl (PF) 4 mg IVPUSH Q8H PRN #1 ml 07/09/20 prednisone 40 mg PO DAILY #1 tab 07/09/20 DS: Summary Hospital Course Hospital Course: [facility], [facility]20: This is a 50-year-old female with past medical history of sickle cell disease who presents to the hospital with complaints of shortness of breath. Of note Patient was admitted to the hospital with COVID-19 pneumonia and hypoxia and discharged on 06/18 after being managed with dexamethasone for COVID-19 pneumonia as well as PRBC transfusion for sickle cell anemia. Returns today complaining of cough, shortness of breath, and feeling pain all over her body for the past few days. She also reports a temperature fever and chills. on arrival to the ED patient was found to be hypoxic placed on 3 L of oxygen satting 92%. She is currently very somnolent after receiving Dilaudid, and Benadryl but responsive to verbal stimuli just can not stay up long enough to answer any questions. History is mostly obtained from ED physician and her nurse. Patient vitals significant for temperature of 103.1?, heart rate of 91, respiratory rate of 20, blood pressure of 91/68, satting 88% on 2 L of nasal cannula, she has no placed on non-rebreather because patient not tolerating nasal cannula keeps taking it off. Labs on arrival significant for WBC count of 12.8, hemoglobin of 7.8 that dropped from 8.6 on discharge on 06/17, will PT of 13.9, INR of 1.2, pH of 7.3, CO2 of 33, PO2 146, sodium of 133, potassium 4.6, calcium of 7.8, total bili of 2.7 which is around her level on discharge, AST of 102, ALT of 45, alk-phos of 167, trop negative, positive COVID-[address] angiogram shows no evidence of pulmonary emboli, commonly reported imaging features of COVID-19 or viral pneumonia with multifocal ground-glass infiltrates. The patient was admitted to the [facility] with acute hypoxic respiratory failure. 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 Notably, her baseline Hgb is in the 6-9 range. Pulmonary embolism was ruled out multiple times. Ultimately, due to persistent severe hypoxia requiring HFNC, Hematology was consulted. 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 Upon arrival [facility], a quantitative HgbS needs to be checked to guide exchange transfusion therapy. Time Spent with Patient Time attestation: Total time spent providing and/or coordinating discharge services: 45 Discharge coordination time: Greater than 30 minutes Quality: Stroke Does the patient have a stroke diagnosis?: No Physical Exam Vital Signs: Vital Signs: Last Vital Signs Temp 98.8 F 07/09/20 19:19 Pulse 100 07/09/20 19:19 Resp 20 07/09/20 19:55 BP 133/60 07/09/20 19:19 Pulse Ox 92 07/09/20 19:19 Oxygen Flow Rate 2 06/25/20 19:03 Body Mass Index 20.5 Gen: short of breath with movement, in pain, on FiO2 60% and 60 Lpm via high- flow NC HEENT: sclera anicteric, moist mucus membranes Neck: supple Lungs: diffuse inspiratory crackles and rhonchi Heart: regular rate and rhythm, no murmurs Abd: soft, non-tender, non-distended Ext: no edema Skin: warm/well-perfused Neuro: alert and oriented x3, no focal findings Psych: appropriate affect DS: Data Data Completed and Pending Completed studies during hospitalization [Text1]: Laboratory Results WBC 23.8 X10*3/uL (4.8-10.8) H 07/09/20 06:54 RBC 2.59 X10*6/uL (4.20-5.50) L 07/09/20 06:54 Hgb 8.5 g/dl (12.0-16.0) L 07/09/20 06:54 Hct 23.9 % (37-47) L 07/09/20 06:54 MCV 92.3 fL (80-98) 07/09/20 06:54 MCH 32.8 pg (27.0-33.0) 07/09/20 06:54 MCHC 35.6 g/dl (31.0-35.0) H 07/09/20 06:54 RDW 21.9 % (11.0-16.0) H 07/09/20 06:54 Plt Count 144 X10*3/uL (160-400) L 07/09/20 06:54 MPV 11.5 fL (9.4-12.3) 07/09/20 06:54 Immature Gran % (Auto) Cancelled 07/03/20 03:22 Neut % (Auto) Cancelled 07/03/20 03:22 Lymph % (Auto) Cancelled 07/03/20 03:22 Oliver % (Auto) Cancelled 07/03/20 03:22 Eos % (Auto) Cancelled 07/03/20 03:22 Baso % (Auto) Cancelled 07/03/20 03:22 Lymph # (Auto) Cancelled 07/03/20 03:22 Oliver # (Auto) Cancelled 07/03/20 03:22 Eos # (Auto) Cancelled 07/03/20 03:22 Baso # (Auto) Cancelled 07/03/20 03:22 Abs Immat Gran (auto) Cancelled 07/03/20 03:22 Absolute Neuts (auto) Cancelled 07/03/20 03:22 Absolute Nucleated RBC 0.450 X10*3/uL (0.0-0.012) H 07/09/20 06:54 Nucleated RBC % (auto) 1.9 /100WBC (0.0-0.2) H 07/09/20 06:54 Neutrophils % (Manual) 84 % (45-73) H 07/03/20 03:22 Band Neutrophils % 2 % (3-5) L 07/03/20 03:22 Lymphocytes % (Manual) 9 % (20-40) L 07/03/20 03:22 Monocytes % (Manual) 5 % (2-11) 07/03/20 03:22 Abs Neuts (Manual) 19.1 X10*3/uL (2.2-7.9) H 07/03/20 03:22 Lymphocytes # (Manual) 2.0 X10*3/uL (0.6-4.8) 07/03/20 03:22 Monocytes # (Manual) 1.1 X10*3/uL (0.0-1.2) 07/03/20 03:22 Nucleated RBCs 22 /100WBC (0-0) H 07/03/20 03:22 Toxic Vacuolation PRESENT 07/03/20 03:22 Platelet Estimate DECREASED (NORMAL) 07/03/20 03:22 Large Platelets PRESENT 07/03/20 03:22 Giant Platelets PRESENT 06/25/20 19:58 Plt Morphology Comment NOTED 07/03/20 03:22 RBC Morphology NOTED 07/03/20 03:22 Polychromasia 2+ (3-5) /[facility] 07/03/20 03:22 Hypochromasia 1+ (5-14) /[facility] 07/03/20 03:22 Basophilic Stippling 1+ (0-2) /[facility] 07/03/20 03:22 Microcytosis 2+ (15-30) /[facility] 07/03/20 03:22 Macrocytosis 1+ (5-14) /[facility] 07/03/20 03:22 Spherocytes 1+ (0-2) /[facility] 07/03/20 03:22 Pappenheimer Bodies PRESENT 07/01/20 06:25 Sickle Cells 1+ (0-2) /[facility] 07/03/20 03:22 Target Cells 1+ (5-14) /[facility] 07/03/20 03:22 Tear Drop Cells 1+ (0-2) /[facility] 07/03/20 03:22 Ovalocytes 1+ (5-14) /[facility] 06/25/20 19:58 Champion-Corry Bodies PRESENT 07/01/20 06:25 Schistocytes 1+ (0-2) /[facility] 07/03/20 03:22 Smear Tech's Comments VERIFIED 06/27/20 17:53 Absolute Retic 0.369 X10*6/uL (0.026-0.095) H 07/03/20 03:22 Percent Retic 13.7 % (0.5-1.8) H 07/03/20 03:22 Immature Retic Fraction 17.0 % (3.0-15.9) H 07/03/20 03:22 Retic Hgb Equivalent 26.9 pg (30.0-35.0) L 07/03/20 03:22 PT 13.9 SEC (10.8-13.0) H 06/25/20 23:36 INR 1.2 (0.9-1.1) H 06/25/20 23:36 APTT Cancelled 06/25/20 19:58 O2 Saturation 79.0 % 07/04/20 18:13 ABG pH at Pt Temp 7.49 (7.35-7.45) H 07/04/20 18:13 ABG pH (Temp Correct) 7.50 (7.35-7.45) H 07/04/20 18:13 ABG pCO2 at Pt Temp 33 mmHg (32-45) 07/04/20 18:13 ABG pCO2 (Temp Corrct 32 mmHg (32-45) 07/04/20 18:13 ABG pO2 at Pt Temp 53 mmHg (83-108) L 07/04/20 18:13 ABG pO2 (Temp Correct 49 (83-108) L* 07/04/20 18:13 ABG HCO3 26 mmol/L (22-26) 07/04/20 18:13 ABG Base Excess (Actual) 3.2 mmol/L 07/04/20 18:13 VBG pH 7.44 (7.32-7.43) H 06/27/20 17:56 VBG pCO2 26 mmHg 06/27/20 17:56 VBG pO2 84 mmHg 06/27/20 17:56 VBG HCO3 18 mmol/L (22-26) L 06/27/20 17:56 VBG O2 Saturation 93.0 % 06/27/20 17:56 VBG Base Excess TNP 06/27/20 17:56 Sodium 141 mmol/L (135-145) 07/09/20 06:54 Potassium 4.6 mmol/L (3.3-5.1) 07/09/20 06:54 Chloride 108 mmol/L (96-108) 07/09/20 06:54 Carbon Dioxide 24 mmol/L (22-29) 07/09/20 06:54 Anion Gap 14 (12-20) 07/09/20 06:54 BUN 38 mg/dL (9-16) H 07/09/20 06:54 Creatinine 0.86 mg/dL (0.5-1.4) 07/09/20 06:54 Estim Creat Clear Calc 67.9 07/09/20 06:54 Estimated GFR > 60 07/09/20 06:54 Random Glucose 152 mg/dL (60-115) H 07/01/20 06:24 Fasting Glucose 110 mg/dL (60-99) H 07/09/20 06:54 Lactic Acid 0.9 mmol/L (0.5-2.0) 06/25/20 19:59 Calcium 9.0 mg/dL (8.4-10.2) 07/09/20 06:54 Magnesium 2.0 mg/dL (1.6-2.6) 06/30/20 20:05 Total Bilirubin 1.7 mg/dL (0.0-1.0) H 07/06/20 05:58 Direct Bilirubin 0.7 mg/dL (0.0-0.5) H 07/06/20 05:58 AST 30 U/L (5-31) D 07/06/20 05:58 ALT 23 U/L (0-31) 07/06/20 05:58 Alkaline Phosphatase 204 U/L (39-117) H D 07/06/20 05:58 Troponin I High Sens 6.0 ng/L (<3.5-17.0) D 06/30/20 21:10 Total Protein 6.4 g/dL (6.5-8.0) L 07/06/20 05:58 Albumin 2.8 g/dL (3.5-5.0) L 07/06/20 05:58 Procalcitonin 0.42 ng/mL 06/26/20 10:09 Nasal Screen MRSA (PCR) NEGATIVE (Negative) 06/27/20 18:39 Nasal S. aureus Screen NEGATIVE (Negative) 06/27/20 18:39 Nasal MRSA/S.aureus Interp SEE NOTE 06/27/20 18:39 Vancomycin Trough < 3.0 mcg/mL (10.0-20.0) L 06/29/20 21:25 IgG 1862 mg/dL (600-1640) H 06/26/20 10:09 Respiratory Panel Og See Note 06/26/20 14:02 Adenovirus (Rapid PCR) Not Detected (Not Detect.) 06/26/20 14:02 B.pert (TEM-PCR) Not Detected (Not Detect.) 06/26/20 14:02 B.parapertussis DNA PCR Not Detected (Not Detect.) 06/26/20 14:02 C. pneumoniae DNA (PCR) Not Detected (Not Detect.) 06/26/20 14:02 Coronavirus OC43 (PCR) Not Detected (Not Detect.) 06/26/20 14:02 Coronavirus HKU1 (PCR) Not Detected (Not Detect.) 06/26/20 14:02 Coronavirus 229E (PCR) Not Detected (Not Detect.) 06/26/20 14:02 COVID-19 ([place]) Negative (Negative) 07/07/20 22:30 COVID-19 Clin Com See Note 07/07/20 22:30 Coronavirus NL63 (PCR) Not Detected (Not Detect.) 06/26/20 14:02 HIV 1&2 Ab/P24 Ag 4thGn Nonreactive (Nonreactive) 06/26/20 10:09 Human Metapneumovir PCR Not Detected (Not Detect.) 06/26/20 14:02 Influenza A (RT-PCR) Not Detected (Not Detect.) 06/26/20 14:02 Influenza B (RT-PCR) Not Detected (Not Detect.) 06/26/20 14:02 M. pneumoniae (PCR) Not Detected (Not Detect.) 06/26/20 14:02 Parainfluenza 1 (PCR) Not Detected (Not Detect.) 06/26/20 14:02 Parainfluenza 2 (PCR) Not Detected (Not Detect.) 06/26/20 14:02 Parainfluenza 3 (PCR) Not Detected (Not Detect.) 06/26/20 14:02 Parainfluenza 4 (PCR) Not Detected (Not Detect.) 06/26/20 14:02 RSV (PCR) Not Detected (Not Detect.) 06/26/20 14:02 Entero/Rhino (PCR) Not Detected (Not Detect.) 06/26/20 14:02 SARS-CoV-2 RNA (RT-PCR) Detected (Not Detect.) A 06/26/20 14:02 SARS-CoV-2 IgG Ab Positive (Negative) 06/27/20 17:53 Blood Type O Positive 06/29/20 06:18 Antibody Screen NEGATIVE 06/29/20 06:18 Crossmatch (AHG) See Detail 06/29/20 06:18 Impressions Chest X-Ray 07/03/20 16:14 IMPRESSION: Increasing bilateral airspace disease probably representing pneumonia. Chest CTA 07/09/20 15:29 IMPRESSION: No evidence for central pulmonary emboli. Distal branch vessels are partially obscured by motion artifact. Diffuse bilateral groundglass airspace disease more diffuse when compared to the 06/26/2020 study. VTE: Negative Labs on day of discharge: Laboratory Results - last 24 hr 07/09/20 07/09/20 06:54 06:54 WBC 23.8 H RBC 2.59 L Hgb 8.5 L Hct 23.9 L MCV 92.3 MCH 32.8 MCHC 35.6 H RDW 21.9 H Plt Count 144 L MPV 11.5 Absolute Nucleated RBC 0.450 H Nucleated RBC % (auto) 1.9 H Sodium 141 Potassium 4.6 Chloride 108 Carbon Dioxide 24 Anion Gap 14 BUN 38 H Creatinine 0.86 Estim Creat Clear Calc 67.9 Estimated GFR > 60 Fasting Glucose 110 H Calcium 9.0 Discharge Plan Discharge Anticipated Discharge Date/Time: 07/09/20 19:57 Patient Disposition: Xfer Acute Care Hospital Discharge Diagnosis: acute chest syndrome Referrals: Jordon Mares MD [Physician] - 1 Week Physician,Unknown [Primary Care Provider] - 1 Week Discharge Medications: New diphenhydramine HCl 50 mg/mL Solution 25 mg IVPUSH Q6H PRN (Reason: pruritis ) Qty: 1 RF: 0 nicotine (polacrilex) 2 mg Gum 4 mg buccal Q2H PRN (Reason: withdrawl) Qty: 1 RF: 0 enoxaparin 40 mg/0.4 mL Syringe 40 mg subcut Q24H Qty: 1 RF: 0 acetaminophen 325 mg Tablet 650 mg PO Q6H PRN (Reason: Pain, Mild (Pain Scale 1-3)) Qty: 1 RF: 0 hydromorphone 0.5 mg/0.5 mL Syringe 1 mg IVPUSH Q4H PRN (Reason: Pain, Severe (Pain Scale 7-10)) Qty: 1 RF: 0 omeprazole 40 mg Capsule,Delayed Release(Dr/Ec) 40 mg PO DAILY@0630 Qty: 1 RF: 0 ondansetron HCl (PF) 4 mg/2 mL Solution 4 mg IVPUSH Q8H PRN (Reason: Nausea And Vomiting) Qty: 1 RF: 0 prednisone 20 mg Tablet 40 mg PO DAILY Qty: 1 RF: 0 Continued oxycodone-acetaminophen 7.5-325 mg tablet 1 tab PO Q6-8H PRN (Reason: Severe Pain (Scale Score 7-10)) RF: 0 hydroxyzine pamoate 25 mg capsule 1 cap PO QID PRN (Reason: anxiety) RF: 0 hydroxyurea (sickle cell) 500 mg PO BID RF: 0 Discharge Orders: Discharge Order (Routine); Ordered 07/09/20 Ordered By: Aditya Garcia Diet: regular diet Activity on Discharge: As tolerated Stand Alone Forms: Patient Portal Discharge page Care Plan Goals: relief of chest pain and low oxygen Health Concerns: hypoxia, acute chest syndrome, [id number] fibrosis Plan of Treatment: transfer to [facility] for exchange transfusion Assessment: as above Discharge Date/Time: 07/09/20 22:20
[2020-07-09] MEDS: Nicotine Polacrilex 2 MG GUM 4 MG BUCCAL (20:11)
== END 2020-07-09 22:20 | disposition short-term general hospital (02) | DRG 177 ==
LOC: HO.ED 06-26 00:35 → HO.EDOVER 06-26 03:50 → HO.IMC 06-26 06:30
PROVIDERS: Hospitalist; Internal Medicine; Nurse Practitioner Acute Care; Admitting Provider Internal Medicine; Emergency Provider Internal Medicine; Visit Provider Family Medicine
DX: U07.1 COVID-19 (principal); J12.82 Pneumonia due to coronavirus disease 2019; J96.01 Acute respiratory failure with hypoxia; D57.01 Hb-SS disease with acute chest syndrome; J84.10 Pulmonary fibrosis, unspecified; K59.00 Constipation, unspecified; F31.9 Bipolar disorder, unspecified; F14.10 Cocaine abuse, uncomplicated; K21.9 Gastro-esophageal reflux disease without esophagitis; F17.210 Nicotine dependence, cigarettes, uncomplicated; Z71.6 Tobacco abuse counseling; Z79.899 Other long term (current) drug therapy
CPT/HCPCS: 36415; 36600; 71045; 71275; 80048; 80053; 80076; 80202; 82784; 83605; 83735; 84132; 84145; 84484; 85007; 85025; 85027; 85045; 85610; 86769; 86850; 86900; 86901; 86902; 86920; 86922; 87040; 87389; 87633; 87635; 87640; 87641; 93005; 93306; 96365; 96374; 96375; 99285; J0696; J1100; J1170; J1200; J1650; J1940; J2060; J2543; J2920; J2930; J3370; P9016; Q9967

== ENCOUNTER 2021-06-01 23:00 | Inpatient (IN) | payer MEDICARE, MEDICAID, SELFPAY ==
--- NOTE | 2021-06-01 | ECG_ITS ---
Test Reason : chest pain Blood Pressure : / mmHG Vent. Rate : 086 BPM Atrial Rate : 086 BPM P-R Int : 138 ms QRS Dur : 092 ms QT Int : 366 ms P-R-T Axes : 051 018 055 degrees QTc Int : 437 ms Normal sinus rhythm Possible Left atrial enlargement Nonspecific T wave abnormality Abnormal ECG When compared with ECG of 30-JUN-2020 21:07, Nonspecific T wave abnormality now evident in Inferior leads Nonspecific T wave abnormality now evident in Anterolateral leads Referred By: Octavio Tamayo Electronically Signed By:LIANNA NELSON MD
--- NOTE | ~2021-06-01 | XR_ITS ---
EXAMINATION: XR chest 1V CLINICAL INFORMATION: Fever, shortness of breath COMPARISON: Chest radiograph 06/03/2021, CT PE protocol 06/03/2021 and 07/09/2020 TECHNIQUE: One view of the chest XR/XR chest 1V FINDINGS/IMPRESSION: Background of increased interstitial opacities which appear similar to prior which may reflect sequelae of underlying chronic interstitial lung disease although superimposed pulmonary edema or atypical/viral infection would be difficult to entirely exclude. No focal consolidation. No pneumothorax. No pleural effusion. Unchanged cardiomediastinal silhouette. Right chest port catheter tip terminates in the distal superior vena cava.
--- NOTE | ~2021-06-01 | XR_ITS ---
EXAMINATION: XR CHEST CLINICAL INFORMATION: Hypoxia COMPARISON: Previous chest x-ray most recent from yesterday TECHNIQUE: Frontal view of the chest was obtained. FINDINGS: The cardiac silhouette is slightly enlarged but stable. The patient is rotated to the right. Hilar and mediastinal contours are otherwise unremarkable. There is a right jugular port with tip projecting over the knee seen. There is increasing diffuse airspace disease or pneumonitis. Pneumonia and pulmonary edema should be considered. There is no pleural effusion. Bony structures are unremarkable. XR/XR chest 1V IMPRESSION: Increasing diffuse mild airspace disease or pneumonitis. Pneumonia and pulmonary edema should be considered.
--- NOTE | ~2021-06-01 | XR_ITS ---
EXAMINATION: XR CHEST CLINICAL INFORMATION: Chest pain COMPARISON: 07/09/2020 TECHNIQUE: Frontal view of the chest was obtained. FINDINGS: Right IJ port catheter tip lies in the region of the mid SVC. The lungs are hypoinflated. No focal consolidation is seen. A few small nodular foci in the perihilar regions bilaterally are suggestive of pulmonary vessels. No evidence of pneumothorax, significant pleural effusion, or overt pulmonary edema. The cardiomediastinal contour is unremarkable. No acute osseous findings are seen. XR/XR chest 1V IMPRESSION: No focal consolidation. Small nodular foci in the perihilar regions are suggestive of vessels; if there is a history of malignancy, chest CT may be performed to assess for parenchymal nodules.
--- NOTE | ~2021-06-01 | CT_ITS ---
EXAMINATION: CT ANGIOGRAM OF THE CHEST WITH AND WITHOUT CONTRAST (CT PULMONARY ANGIOGRAM FOR PE) CLINICAL INFORMATION: Reason for Exam hypoxia COMPARISON: CT angiogram chest 07/09/[address] abdomen 03/28/2020 TECHNIQUE: Prior to contrast administration, noncontrast localization images were obtained. Subsequently, multidetector volumetric imaging was performed from the thoracic inlet to below the diaphragms following the administration of 65 mL Omnipaque 350 intravenous contrast. No contrast reaction reported Sagittal, coronal, and MIP oblique sagittal reformatted images were obtained on the CT workstation, uploaded to PACS, and reviewed. This CT examination was performed using dose optimization techniques as appropriate, variously including the following: *Automated exposure control *Adjustment of mA and/or kV according to patient size (this includes techniques or standardized protocols for targeted exams where dose is matched to indication/reason for exam; i.e. extremities or head) *Use of iterative reconstruction technique Total exam dose-length product 269 mGy-cm FINDINGS: QUALITY OF STUDY/CONTRAST BOLUS: Satisfactory. PULMONARY ARTERIES: No central or segmental pulmonary emboli. THORACIC AORTA: No aneurysm or dissection. LUNG: Again seen are chronic fibrotic changes in the lungs with some peripheral honeycombing at the lower lobes bilaterally. No focal consolidations are seen. Some groundglass changes that were present previously appears slightly improved. PLEURA: No pleural effusion or pneumothorax. MEDIASTINUM: There is mild cardiac enlargement.. No pericardial effusion. Multiple mediastinal and hilar lymph nodes are present but are most likely reactive with no gross hilar or mediastinal lymphadenopathy. No evidence of septal bowing or right heart strain. CHEST WALL/AXILLA: No axillary or internal mammary lymphadenopathy. A right chest port is present with its tip in the distal SVC. OSSEOUS STRUCTURES: No acute or suspicious osseous abnormality. UPPER ABDOMEN: Unremarkable. No reflux of contrast into the hepatic veins to suggest elevated right heart pressures. CT/CT angio chest PE protocol IMPRESSION: No evidence of pulmonary emboli Chronic fibrotic and groundglass changes in the lungs with reactive mediastinal lymph nodes. VTE: negative
[2021-06-01 23:12] VITALS: BP 118/71; PULSE 84; RESP 18; TEMP 36.9; O2SAT 95; BMI 24.3
--- NOTE | 2021-06-01 23:16 | ED_ITS ---
HPI - Allergic Reaction General Chief complaint: Chest Pain Stated complaint: allergic reaction Time Seen by Provider: 06/01/21 23:15 Related Data Home Medications Medication Instructions Recorded Confirmed hydroxyurea (sickle cell) 500 mg PO BID 06/26/20 06/27/20 hydroxyzine pamoate 25 mg capsule 1 cap PO QID PRN 06/26/20 06/26/20 oxycodone-acetaminophen 7.5 mg-325 1 tab PO Q6-8H PRN 06/26/20 06/26/20 mg tablet Previous Rx's Medication Instructions Recorded acetaminophen 325 mg tablet 650 mg PO Q6H PRN #1 tab 07/09/20 diphenhydramine HCl 50 mg/mL 25 mg (0.5 mL) IVPUSH Q6H PRN #1 ml 07/09/20 injection solution enoxaparin 40 mg/0.4 mL 40 mg (0.4 mL) SUBCUT Q24H #1 ml 07/09/20 subcutaneous syringe hydromorphone 0.5 mg/0.5 mL 1 mg IVPUSH Q4H PRN #1 ml 07/09/20 injection syringe nicotine (polacrilex) 2 mg gum 4 mg BUCCAL Q2H PRN #1 ea 07/09/20 omeprazole 40 mg capsule,delayed 40 mg PO DAILY@0630 #1 cap 07/09/20 release ondansetron HCl (PF) 4 mg/2 mL 4 mg (2 mL) IVPUSH Q8H PRN #1 ml 07/09/20 injection solution prednisone 20 mg tablet 40 mg PO DAILY #1 tab 07/09/20 Allergies Allergy/AdvReac Type Severity Reaction Status Date / Time prochlorperazine Allergy Severe ANAPHYLAXIS Verified 05/10/20 01:39 [From COMPAZINE] [facility] Past Medical History Medical History (Updated 07/17/20 @ 00:01 by Background Oscar) 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 Bipolar 1 disorder Cocaine abuse GERD (gastroesophageal reflux disease) Pneumonia due to 2019 novel coronavirus Pneumonia due to 2019 novel coronavirus PTSD (post-traumatic stress disorder) Sickle cell anemia Sickle cell anemia UTI (urinary tract infection) Surgical History Hx of cholecystectomy Family History Family History Other Diabetes Social History Social History Household Members: None Housing: Apartment Do you presently have visiting nurse or other home services: No Unable to assess alcohol history related to: Unable to respond Alcohol intake: current Alcohol intake frequency: a few times a week Alcohol type: beer Cigarette Packs Per Day: 0.5 Second Hand Smoke Exposure: No Substance Use Type: Crack/Cocaine service: No Current occupational status: disabled Physical Exam ED Vital Signs: Vital Signs - 24 hr 06/01/21 23:12 Temperature 98.4 F Pulse Rate 84 Respiratory Rate 18 Blood Pressure 118/71 Pulse Oximetry 95 BMI result Body Mass Index 24.3 Discharge Plan Discharge Prescriptions: No Action oxycodone-acetaminophen 7.5-325 mg tablet 1 tab PO Q6-8H PRN (Reason: Severe Pain (Scale Score 7-10)) 0RF hydroxyzine pamoate 25 mg capsule 1 cap PO QID PRN (Reason: anxiety) 0RF hydroxyurea (sickle cell) 500 mg PO BID 0RF Rx Instructions: CANNOT CONFIRM MEDICATION. PATIENT STATES THEY ARE TAKING, AND HAS BEEN ON EVERY ADMISSION LIST BUT BOTH [facility] AND [facility] HAVE NO RECORDS diphenhydramine HCl 50 mg/mL Solution 25 mg IVPUSH Q6H PRN (Reason: pruritis ) Qty: 1 0RF nicotine (polacrilex) 2 mg Gum 4 mg buccal Q2H PRN (Reason: withdrawl) Qty: 1 0RF enoxaparin 40 mg/0.4 mL Syringe 40 mg subcut Q24H Qty: 1 0RF acetaminophen 325 mg Tablet 650 mg PO Q6H PRN (Reason: Pain, Mild (Pain Scale 1-3)) Qty: 1 0RF hydromorphone 0.5 mg/0.5 mL Syringe 1 mg IVPUSH Q4H PRN (Reason: Pain, Severe (Pain Scale 7-10)) Qty: 1 0RF omeprazole 40 mg Capsule,Delayed Release(Dr/Ec) 40 mg PO DAILY@0630 Qty: 1 0RF ondansetron HCl (PF) 4 mg/2 mL Solution 4 mg IVPUSH Q8H PRN (Reason: Nausea And Vomiting) Qty: 1 0RF prednisone 20 mg Tablet 40 mg PO DAILY Qty: 1 0RF
--- NOTE | 2021-06-01 23:38 | ED_ITS ---
HPI - General Adult General Chief complaint: Chest Pain Stated complaint: allergic reaction Time Seen by Provider: 06/01/21 23:15 Source: patient Mode of arrival: ambulatory Limitations: no limitations History of Present Illness HPI narrative: Patient's history of sickle cell anemia complaining of chest pain and body pain all day along with itching all over about no shortness of breath on arrival patient blood pressure was 118/ 71, pulse rate 84 saturating 95% at room air patient does not seem to be in distress but itching all over Related Data Home Medications Medication Instructions Recorded Confirmed hydroxyurea (sickle cell) 500 mg PO BID 06/26/20 06/27/20 hydroxyzine pamoate 25 mg capsule 1 cap PO QID PRN 06/26/20 06/26/20 oxycodone-acetaminophen 7.5 mg-325 1 tab PO Q6-8H PRN 06/26/20 06/26/20 mg tablet Previous Rx's Medication Instructions Recorded acetaminophen 325 mg tablet 650 mg PO Q6H PRN #1 tab 07/09/20 diphenhydramine HCl 50 mg/mL 25 mg (0.5 mL) IVPUSH Q6H PRN #1 ml 07/09/20 injection solution enoxaparin 40 mg/0.4 mL 40 mg (0.4 mL) SUBCUT Q24H #1 ml 07/09/20 subcutaneous syringe hydromorphone 0.5 mg/0.5 mL 1 mg IVPUSH Q4H PRN #1 ml 07/09/20 injection syringe nicotine (polacrilex) 2 mg gum 4 mg BUCCAL Q2H PRN #1 ea 07/09/20 omeprazole 40 mg capsule,delayed 40 mg PO DAILY@0630 #1 cap 07/09/20 release ondansetron HCl (PF) 4 mg/2 mL 4 mg (2 mL) IVPUSH Q8H PRN #1 ml 07/09/20 injection solution prednisone 20 mg tablet 40 mg PO DAILY #1 tab 07/09/20 Allergies Allergy/AdvReac Type Severity Reaction Status Date / Time prochlorperazine Allergy Severe ANAPHYLAXIS Verified 05/10/20 01:39 [From COMPAZINE] Review of Systems Review of Systems: Yes all other systems are reviewed and are negative PMFSH Past Medical History Medical History 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 Bipolar 1 disorder Cocaine abuse GERD (gastroesophageal reflux disease) Pneumonia due to 2019 novel coronavirus Pneumonia due to 2019 novel coronavirus PTSD (post-traumatic stress disorder) Sickle cell anemia Sickle cell anemia UTI (urinary tract infection) Surgical History Hx of cholecystectomy Family History Family History Other Diabetes Social History Social History Household Members: None Housing: Apartment Do you presently have visiting nurse or other home services: No Unable to assess alcohol history related to: Unable to respond Alcohol intake: current Alcohol intake frequency: a few times a week Alcohol type: beer Cigarette Packs Per Day: 0.5 Second Hand Smoke Exposure: No Substance Use Type: Crack/Cocaine Advance Directives: No Advance Directives Information Provided: Yes service: No Current occupational status: disabled Physical Exam ED Vital Signs: Vital Signs - 24 hr 06/01/21 23:12 06/02/21 02:01 Temperature 98.4 F Pulse Rate 84 86 Respiratory Rate 18 Blood Pressure 118/71 113/56 L Pulse Oximetry 95 95 BMI result Body Mass Index 24.3 Appearance: Alert. Oriented X3. No acute distress. Eyes:pallor+ ENT: Pharynx normal. Oral Mucosa moist Neck: Normal inspection. Neck supple. CVS: Normal heart rate and rhythm. Pulses normal. Respiratory: No respiratory distress. Equal air entry bilateral, no whee zing/rales/rhonchi Abdomen: Soft and nontender. Bowel sounds are present, no mass palpable, no CVA tenderness Skin: Skin warm and dry. Normal skin color. Normal skin turgor. Extremities: No lower extremity edema. No calf tenderness Neuro: Oriented X 3. No motor deficit. No sensory deficit.No cerebellar signs , cranial nerves II-XII intact Medical Decision Making MDM Narrative Medical decision making narrative: Patient with sickle cell anemia with body aches complaining of chest pain no a cute ischemic changes no hypoxia on arrival will check her retic count. Patient does not seem to be in distress at this time patient been to the ER multiple times with similar complaints and multiple CTA chest negative for PE at this time we will hold on to CTA chest as patient looks comfortable Lab Data Lab results reviewed: Yes I reviewed the patient's lab results. Result diagrams: 06/02/21 01:18 06/02/21 01:18 Labs: Lab Results 06/02/21 06/02/21 06/02/21 Range/Units 01:18 01:18 01:18 PT (9.9-13.0) SEC INR (0.9-1.1) APTT (24.1-38.0) SEC Sodium 138 (135-145) mmol/L Potassium 4.4 (3.3-5.1) mmol/L Chloride 103 (96-108) mmol/L Carbon Dioxide 24 (22-29) mmol/L Anion Gap 15 (12-20) BUN 19 H (9-16) mg/dL Creatinine 0.98 (0.5-1.4) mg/dL Estim Creat Clear Calc 59.2 Estimated GFR > 60 Random Glucose 100 (60-115) mg/dL Calcium 8.6 (8.4-10.2) mg/dL Total Bilirubin 2.8 H (0.0-1.0) mg/dL AST 104 H (5-31) U/L ALT 33 H (0-31) U/L Alkaline Phosphatase 187 H (39-117) U/L Troponin I High Sens < 3.5 (<3.5-17.0) ng/L Total Protein 7.1 (6.5-8.0) g/dL Albumin 3.7 D (3.5-5.0) g/dL COVID-19 ([facility]) Negative (Negative) COVID-19 Clin Com See Note Crossmatch ([facility]) 06/02/21 06/02/21 Range/Units 01:35 01:56 PT 13.7 H (9.9-13.0) SEC INR 1.2 H (0.9-1.1) APTT 29.5 (24.1-38.0) SEC Sodium (135-145) mmol/L Potassium (3.3-5.1) mmol/L Chloride (96-108) mmol/L Carbon Dioxide (22-29) mmol/L Anion Gap (12-20) BUN (9-16) mg/dL Creatinine (0.5-1.4) mg/dL Estim Creat Clear Calc Estimated GFR Random Glucose (60-115) mg/dL Calcium (8.4-10.2) mg/dL Total Bilirubin (0.0-1.0) mg/dL AST (5-31) U/L ALT (0-31) U/L Alkaline Phosphatase (39-117) U/L Troponin I High Sens (<3.5-17.0) ng/L Total Protein (6.5-8.0) g/dL Albumin (3.5-5.0) g/dL COVID-19 ([facility]) (Negative) COVID-19 Clin Com Crossmatch ([facility]) See Detail ECG Data Attestation: I personally reviewed and interpreted this ECG as follows: Interpretation: Normal sinus rhythm heart rate [address] T-wave changes normal intervals no acute ischemia Discharge Plan Discharge Clinical Impression: Sickle cell anemia with crisis Patient Disposition: Admitted As Inpatient
[2021-06-02] VITALS (17 sets, daily range): BP systolic 95–126; BP diastolic 56–75; PULSE 68–109; RESP 18–22; TEMP 36.6–37.6; O2SAT 90–97
[2021-06-02 01:25] LABS: Basophils Absolute Auto 0.1 X10*3/uL (0.0-0.2); Basophils Percent Auto 0.6 % (0-2); Eosinophils Absolute Auto 0.5 X10*3/uL (0.0-0.4); Imm Gran Abs Auto 0.19 X10*3/uL (0.00-0.03); Imm Gran Pct Auto 1.1 % (0.0-0.4); Immature Retic Fraction 52.2 % (3.0-15.9); Lymphocytes Percent Auto 23.1 % (20-40); MANUAL DIFF FLAG SCAN; Mean Corpuscular HGB Conc 37.2 g/dl (31.0-35.0); Mean Corpuscular Hemoglobin 34.4 pg (27.0-33.0); Mean Corpuscular Volume 92.4 fL (80.0-98.0); Mean Platelet Volume 11.5 fL (9.4-12.3); Monocytes Absolute Auto 2.4 X10*3/uL (0.1-1.2); Monocytes Percent Auto 14.1 % (2-11); Neutrophils Absolute Auto 9.9 x10*3/uL (2.0-8.3); Neutrophils Percent Auto 58.1 % (45-73); Platelet Count 229 X10*3/uL (160-400); Red Blood Count 1.57 X10*6/uL (4.20-5.50); Red Cell Distribution Width 23.6 % (11.0-16.0); Retic HGB Equivalent 35.7 pg (30.0-35.0); Reticulocyte Percent 12.5 % (0.5-1.8); Reticulocytes Absolute 0.197 X10*6/uL (0.026-0.095); SCAN SMEAR FLAG 1; White Blood Count 17.1 X10*3/uL (4.8-10.8)
[2021-06-02] MEDS: diphenhydrAMINE HCL 50 MG/ML VIAL 25 MG IVPUSH ×2 (01:26→17:30)
[2021-06-02] MEDS: LORazepam 2 MG/ML VIAL 1 MG IVPUSH (01:27)
[2021-06-02 01:29] LABS: Hemoglobin 5.4 g/dl (12.0-16.0)
[2021-06-02] MEDS: HYDROmorphone HCl 1 MG/ML SYRINGE IVPUSH ×4 (01:29→22:05)
[2021-06-02 01:30] LABS: Hematocrit 14.5 % (37.0-47.0); NRBC Pct Auto 30.6 /100WBC (0.0-0.2)
[2021-06-02] MEDS: 0.9 % Sodium Chloride 1,000 ML 999 ML IV ×2 (01:31→03:21)
[2021-06-02] MEDS: Folic Acid 1 MG TABLET PO (01:31)
[2021-06-02 01:45] LABS: Troponin-I High Sensitivity < 3.5 ng/L (<3.5-17.0)
[2021-06-02 01:46] LABS: Alanine Aminotransferase 33 U/L (0-31); Albumin Level 3.7 g/dL (3.5-5.0); Alkaline Phosphatase 187 U/L (39-117); Anion Gap 15 (12-20); Aspartate Amino Transferase 104 U/L (5-31); Bilirubin Total 2.8 mg/dL (0.0-1.0); Blood Urea Nitrogen 19 mg/dL (9-16); Calcium 8.6 mg/dL (8.4-10.2); Carbon Dioxide 24 mmol/L (22-29); Chloride 103 mmol/L (96-108); Creatinine Clr Calc Pharmacy 59.2; Estimated Glomerular Filt Rate > 60; Glucose Random 100 mg/dL (60-115); Potassium 4.4 mmol/L (3.3-5.1); Sodium 138 mmol/L (135-145); Total Protein 7.1 g/dL (6.5-8.0)
[2021-06-02 01:58] LABS: INTERNATIONAL NORM RATIO 1.2 (0.9-1.1); Prothrombin Time 13.7 SEC (9.9-13.0)
[2021-06-02 02:00] LABS: COVID-19 Test Negative (Negative)
[2021-06-02 02:01] LABS: Partial Thromboplastin Time 29.5 SEC (24.1-38.0)
[2021-06-02 02:49] LABS: SLIDE REVIEW VERIFIED
[2021-06-02] MEDS: HYDROmorphone HCl 1 MG/ML SYRINGE 0.5 MG IVPUSH ×2 (03:35→07:24)
[2021-06-02] MEDS: diphenhydrAMINE HCL 50 MG/ML VIAL IM (04:04)
[2021-06-02 04:18] LABS: Basophils Absolute Auto 0.1 X10*3/uL (0.0-0.2); Basophils Percent Auto 0.7 % (0-2); Eosinophils Absolute Auto 0.5 X10*3/uL (0.0-0.4); Eosinophils Percent Auto 3.1 % (0-4); Imm Gran Abs Auto 0.25 X10*3/uL (0.00-0.03); Imm Gran Pct Auto 1.5 % (0.0-0.4); MANUAL DIFF FLAG SCAN; Mean Corpuscular HGB Conc 36.5 g/dl (31.0-35.0); Mean Corpuscular Hemoglobin 33.8 pg (27.0-33.0); Mean Corpuscular Volume 92.6 fL (80.0-98.0); Mean Platelet Volume 11.4 fL (9.4-12.3); Monocytes Absolute Auto 2.1 X10*3/uL (0.1-1.2); Monocytes Percent Auto 12.6 % (2-11); Neutrophils Absolute Auto 8.7 x10*3/uL (2.0-8.3); Neutrophils Percent Auto 52.1 % (45-73); PLT CLUMP 1; Red Blood Count 1.36 X10*6/uL (4.20-5.50); Red Cell Distribution Width 22.9 % (11.0-16.0); SCAN SMEAR FLAG 1
[2021-06-02 04:28] LABS: NRBC Pct Auto 29.7 /100WBC (0.0-0.2); White Blood Count 16.6 X10*3/uL (4.8-10.8)
[2021-06-02 04:29] LABS: Hematocrit 12.6 % (37.0-47.0); Hemoglobin 4.6 g/dl (12.0-16.0)
[2021-06-02 04:45] LABS: Anion Gap 14 (12-20); Blood Urea Nitrogen 17 mg/dL (9-16); Calcium 7.9 mg/dL (8.4-10.2); Carbon Dioxide 19 mmol/L (22-29); Chloride 107 mmol/L (96-108); Creatinine Clr Calc Pharmacy 64.5; Estimated Glomerular Filt Rate > 60; Glucose Random 122 mg/dL (60-115); Potassium 4.2 mmol/L (3.3-5.1); Sodium 136 mmol/L (135-145)
--- NOTE | 2021-06-02 04:52 | PC.NURSE ---
First unit of PRBC started Pt tolerating well Pt drowsy at bedside but has random bursts of restlessness and itching Will continue to monitor
[2021-06-02] MEDS: ondansetron HCL 4 MG/2 ML VIAL IVPUSH ×2 (04:54→11:41)
--- NOTE | 2021-06-02 06:07 | PC.NURSE ---
Pt tolerating blood transfusion Pt resting on stretcher with eyes closed then intermittently wakes up and c/o itching and becomes restless. Continue to encourage pt to keep nasal cannula on.
--- NOTE | 2021-06-02 06:34 | PC.NURSE ---
First unit PRBC finished Pt resting on stretcher with eyes closed Will continue to monitor
--- NOTE | 2021-06-02 06:59 | P.HPHOSP_ITS ---
History of Present Illness Date of Service: 06/02/21 Chief Complaint: pain 51-year-old female past medical history of sickle cell disease, bipolar, history of acute chest syndrome due to sickle cell, history of cocaine abuse, PTSD, presents to the hospital with complaints of chest pain. Patient is very somnolent but reports that her pain started yesterday, all over the chest, she also has pain all over her body, she reports that she has been compliant with her sickle medications. she denies any dehydration, no dysuria, no cough. No new bleeding. She is significant itchy all over her body. vitals reviewed unremarkable Labs are significant for WBC count of 17,000, hemoglobin of 5.4, hematocrit 14.5 , total bili of 2.8, AST of 104, ALT of 33, alk-phos of 187, UA pending Chest x-ray shows no focal consolidation, small nodular foci in the perihilar region are suggestive of vessels. 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 Bipolar 1 disorder Cocaine abuse GERD (gastroesophageal reflux disease) Pneumonia due to 2019 novel coronavirus Pneumonia due to 2019 novel coronavirus PTSD (post-traumatic stress disorder) Sickle cell anemia Sickle cell anemia UTI (urinary tract infection) Family History Other Diabetes Surgical History Hx of cholecystectomy Social History Household Members: None Housing: Apartment Do you presently have visiting nurse or other home services: No Unable to assess alcohol history related to: Unable to respond Alcohol intake: current Alcohol intake frequency: a few times a week Alcohol type: beer Cigarette Packs Per Day: 0.5 Second Hand Smoke Exposure: No Substance Use Type: Crack/Cocaine Advance Directives: No Advance Directives Information Provided: Yes service: No Current occupational status: disabled Meds Allergies Allergy/AdvReac Type Severity Reaction Status Date / Time prochlorperazine Allergy Severe ANAPHYLAXIS Verified 05/10/20 01:39 [From COMPAZINE] Active Medications: Current Medications Acetaminophen (Acetaminophen 325 Mg Tablet) 650 mg PO Q6H PRN PRN Reason: Pain, Mild (Pain Scale 1-3) Docusate Sodium (Docusate Sodium 100 Mg Capsule) 100 mg PO DAILY PRN PRN Reason: Constipation Hydromorphone HCl (Hydromorphone Hcl 1 Mg/Ml Syringe) 0.5 mg IVPUSH Q4H PRN; Protocol PRN Reason: Pain, Severe (Pain Scale 7-10) Last Admin: 06/02/21 03:35 Dose: 0.5 mg Documented by: Hydroxyzine HCl (Hydroxyzine Hcl 25 Mg Tablet) 25 mg PO Q6H PRN PRN Reason: Anxiety Lactated Ringer's (Lr) 1,000 mls @ 125 mls/hr IVCONT .Q8H [facility] Ondansetron HCl (Ondansetron Hcl 4 Mg/2 Ml Vial) 4 mg IVPUSH Q8H PRN PRN Reason: Nausea and Vomiting Last Admin: 06/02/21 04:54 Dose: 4 mg Documented by: Sodium Chloride (0.9 % Sodium Chloride Flush 3 Ml Syringe) [facility] Home Medications Medication Instructions Recorded Confirmed Last Taken Type hydroxyurea (sickle cell) 500 mg PO BID 06/26/20 06/27/20 Unknown History hydroxyzine pamoate 25 mg capsule 1 cap PO QID PRN 06/26/20 06/26/20 Unknown History oxycodone-acetaminophen 7.5 mg-325 1 tab PO Q6-8H PRN 06/26/20 06/26/20 Unknown History mg tablet Physical Exam Vital Signs and Narrative: Vital Signs: Last Vital Signs Temp 97.9 F 06/02/21 06:31 Pulse 99 06/02/21 06:31 Resp 18 06/02/21 06:31 BP 108/64 06/02/21 06:31 Pulse Ox 90 L 06/02/21 06:31 Oxygen Flow Rate 4 06/01/21 23:12 BMI result Body Mass Index 24.3 Const: Other: patient is somnolent but arousable, she for keeps falling back asleep General: cooperative and no acute distress Eyes: General: appearance normal, both eyes and all related structures Resp: Effort & Inspection: normal respiratory effort Auscultation: clear to auscultation bilaterally Cardio: Rate: regular rate Rhythm: regular rhythm GI: Palpation (GI): Soft to palpation Auscultation: normal bowel sounds Skin: General skin exam: no rashes or lesions noted Neuro: Other: patient is somnolent but arousable Cognition (Neuro): normal cognition Extrem: General: Yes normal to inspection and Yes no pedal edema Results Labs CBC and Chem 7: 06/02/21 03:59 06/02/21 03:59 Labs: Laboratory Results - last 24 hr 06/02/21 06/02/21 06/02/21 01:18 01:18 01:18 MCV 92.4 MCH 34.4 H MCHC 37.2 H RDW 23.6 H Plt Count 229 MPV 11.5 Immature Gran % (Auto) 1.1 H Neut % (Auto) 58.1 Lymph % (Auto) 23.1 [place] % (Auto) 14.1 H Eos % (Auto) 3.0 Baso % (Auto) 0.6 Lymph # (Auto) 4.0 [place] # (Auto) 2.4 H Eos # (Auto) 0.5 H Baso # (Auto) 0.1 Abs Immat Gran (auto) 0.19 H Absolute Neuts (auto) 9.9 H Absolute Nucleated RBC 5.240 H Nucleated RBC % (auto) 30.6 H Smear Tech's Comments VERIFIED Absolute Retic 0.197 H Percent Retic 12.5 H Immature Retic Fraction 52.2 H Retic Hgb Equivalent 35.7 H PT INR APTT Anion Gap 15 Estim Creat Clear Calc 59.2 Estimated GFR > 60 Random Glucose 100 Calcium 8.6 Total Bilirubin 2.8 H AST 104 H ALT 33 H Alkaline Phosphatase 187 H Troponin I High Sens < 3.5 Total Protein 7.1 Albumin 3.7 D COVID-19 ([facility]) COVID-19 Clin Com Blood Type Antibody Screen Crossmatch ([facility]) 06/02/21 06/02/21 06/02/21 01:18 01:35 01:56 MCV MCH MCHC RDW Plt Count MPV Immature Gran % (Auto) Neut % (Auto) Lymph % (Auto) [place] % (Auto) Eos % (Auto) Baso % (Auto) Lymph # (Auto) [place] # (Auto) Eos # (Auto) Baso # (Auto) Abs Immat Gran (auto) Absolute Neuts (auto) Absolute Nucleated RBC Nucleated RBC % (auto) Smear Tech's Comments Absolute Retic Percent Retic Immature Retic Fraction Retic Hgb Equivalent PT 13.7 H INR 1.2 H APTT 29.5 Anion Gap Estim Creat Clear Calc Estimated GFR Random Glucose Calcium Total Bilirubin AST ALT Alkaline Phosphatase Troponin I High Sens Total Protein Albumin COVID-19 ([facility]) Negative COVID-19 Clin Com See Note Blood Type O Positive Antibody Screen NEGATIVE Crossmatch ([facility]) See Detail 06/02/21 06/02/21 03:59 03:59 MCV 92.6 MCH 33.8 H MCHC 36.5 H RDW 22.9 H Plt Count TNP MPV 11.4 Immature Gran % (Auto) 1.5 H Neut % (Auto) 52.1 Lymph % (Auto) 30.0 [place] % (Auto) 12.6 H Eos % (Auto) 3.1 Baso % (Auto) 0.7 Lymph # (Auto) 5.0 H [place] # (Auto) 2.1 H Eos # (Auto) 0.5 H Baso # (Auto) 0.1 Abs Immat Gran (auto) 0.25 H Absolute Neuts (auto) 8.7 H Absolute Nucleated RBC 4.940 H Nucleated RBC % (auto) 29.7 H Smear Tech's Comments Absolute Retic Percent Retic Immature Retic Fraction Retic Hgb Equivalent PT INR APTT Anion Gap 14 Estim Creat Clear Calc 64.5 Estimated GFR > 60 Random Glucose 122 H Calcium 7.9 L D Total Bilirubin AST ALT Alkaline Phosphatase Troponin I High Sens Total Protein Albumin COVID-19 ([facility]) COVID-19 Clin Com Blood Type Antibody Screen Crossmatch ([facility]) Imaging Radiologist's Impressions: Impressions Chest X-Ray 06/02/21 01:27 IMPRESSION: No focal consolidation. Small nodular foci in the perihilar regions are suggestive of vessels; if there is a history of malignancy, chest CT may be performed to assess for parenchymal nodules. Assessment and Plan (1) Sickle cell anemia with crisis: Status: Acute (2) Chest pain: Status: Acute Plan 51-year-old female with history of sickle cell disease presents to the hospital with complaints of chest pain # sickle cell anemia with crisis - will treat with IV fluid, pain control, will receive PRBC - no evidence of infection at this time, UA pending - urine drug screen pending - follow CBC # chest pain - no evidence of acute chest syndrome - no hypoxia - chest x-ray as above - no elevated troponin - monitor all other medications are being reviewed at this time DVT prophylaxis: SCDs in the setting of acute anemia Quality Stroke Does the patient have a stroke diagnosis?: No VTE Prior VTE?: No VTE Risk Level:: Medical - moderate - high VTE Device Contraindication: N/A - Device Ordered VTE Drug Contraindication: Treatment Not Indicated
[2021-06-02 07:43] LABS: Hemoglobin 6.7 g/dl (12.0-16.0)
[2021-06-02] MEDS: hydrOXYzine HCL 25 MG TABLET PO ×4 (07:49→22:05)
--- NOTE | 2021-06-02 07:55 | P.PNIM_ITS ---
Subjective Subjective Date of Service: 06/02/21 Interval History: sickle cell crisis Physical Exam Vital Signs: Vital Signs: Last Vital Signs Temp 98.5 F 06/02/21 07:49 Pulse 106 H 06/02/21 07:49 Resp 18 06/02/21 07:33 BP 114/63 06/02/21 07:49 Pulse Ox 90 L 06/02/21 06:31 Oxygen Flow Rate 4 06/01/21 23:12 BMI result Body Mass Index 24.3 Objective Data Active Medications Acetaminophen (Acetaminophen 325 Mg Tablet) 650 mg PO Q6H PRN PRN Reason: Pain, Mild (Pain Scale 1-3) Docusate Sodium (Docusate Sodium 100 Mg Capsule) 100 mg PO DAILY PRN PRN Reason: Constipation Hydromorphone HCl (Hydromorphone Hcl 1 Mg/Ml Syringe) 0.5 mg IVPUSH Q4H PRN; Protocol PRN Reason: Pain, Severe (Pain Scale 7-10) Last Admin: 06/02/21 07:24 Dose: 0.5 mg Documented by: GRAYSON Hydroxyzine HCl (Hydroxyzine Hcl 25 Mg Tablet) 25 mg PO Q6H PRN PRN Reason: Anxiety Last Admin: 06/02/21 07:49 Dose: 25 mg Documented by: COOPENani Lactated Ringer's (Lr) 1,000 mls @ 125 mls/hr IVCONT .Q8H [facility] Ondansetron HCl (Ondansetron Hcl 4 Mg/2 Ml Vial) 4 mg IVPUSH Q8H PRN PRN Reason: Nausea and Vomiting Last Admin: 06/02/21 04:54 Dose: 4 mg Documented by: KAT Sodium Chloride (0.9 % Sodium Chloride Flush 3 Ml Syringe) [facility] Labs CBC & Chem 7: 06/02/21 07:14 06/02/21 03:59 Labs: Laboratory Results - last 24 hr 06/02/21 06/02/21 06/02/21 01:18 01:18 01:18 MCV 92.4 MCH 34.4 H MCHC 37.2 H RDW 23.6 H Plt Count 229 MPV 11.5 Immature Gran % (Auto) 1.1 H Neut % (Auto) 58.1 Lymph % (Auto) 23.1 [place] % (Auto) 14.1 H Eos % (Auto) 3.0 Baso % (Auto) 0.6 Lymph # (Auto) 4.0 [place] # (Auto) 2.4 H Eos # (Auto) 0.5 H Baso # (Auto) 0.1 Abs Immat Gran (auto) 0.19 H Absolute Neuts (auto) 9.9 H Absolute Nucleated RBC 5.240 H Nucleated RBC % (auto) 30.6 H Smear Tech's Comments VERIFIED Absolute Retic 0.197 H Percent Retic 12.5 H Immature Retic Fraction 52.2 H Retic Hgb Equivalent 35.7 H PT INR APTT Anion Gap 15 Estim Creat Clear Calc 59.2 Estimated GFR > 60 Random Glucose 100 Calcium 8.6 Total Bilirubin 2.8 H AST 104 H ALT 33 H Alkaline Phosphatase 187 H Troponin I High Sens < 3.5 Total Protein 7.1 Albumin 3.7 D COVID-19 ([facility]) COVID-19 Clin Com Blood Type Antibody Screen Crossmatch ([facility]) 06/02/21 06/02/21 06/02/21 01:18 01:35 01:56 MCV MCH MCHC RDW Plt Count MPV Immature Gran % (Auto) Neut % (Auto) Lymph % (Auto) [place] % (Auto) Eos % (Auto) Baso % (Auto) Lymph # (Auto) [place] # (Auto) Eos # (Auto) Baso # (Auto) Abs Immat Gran (auto) Absolute Neuts (auto) Absolute Nucleated RBC Nucleated RBC % (auto) Smear Tech's Comments Absolute Retic Percent Retic Immature Retic Fraction Retic Hgb Equivalent PT 13.7 H INR 1.2 H APTT 29.5 Anion Gap Estim Creat Clear Calc Estimated GFR Random Glucose Calcium Total Bilirubin AST ALT Alkaline Phosphatase Troponin I High Sens Total Protein Albumin COVID-19 ([facility]) Negative COVID-19 Clin Com See Note Blood Type O Positive Antibody Screen NEGATIVE Crossmatch ([facility]) See Detail 06/02/21 06/02/21 03:59 03:59 MCV 92.6 MCH 33.8 H MCHC 36.5 H RDW 22.9 H Plt Count TNP MPV 11.4 Immature Gran % (Auto) 1.5 H Neut % (Auto) 52.1 Lymph % (Auto) 30.0 [place] % (Auto) 12.6 H Eos % (Auto) 3.1 Baso % (Auto) 0.7 Lymph # (Auto) 5.0 H [place] # (Auto) 2.1 H Eos # (Auto) 0.5 H Baso # (Auto) 0.1 Abs Immat Gran (auto) 0.25 H Absolute Neuts (auto) 8.7 H Absolute Nucleated RBC 4.940 H Nucleated RBC % (auto) 29.7 H Smear Tech's Comments Absolute Retic Percent Retic Immature Retic Fraction Retic Hgb Equivalent PT INR APTT Anion Gap 14 Estim Creat Clear Calc 64.5 Estimated GFR > 60 Random Glucose 122 H Calcium 7.9 L D Total Bilirubin AST ALT Alkaline Phosphatase Troponin I High Sens Total Protein Albumin COVID-19 ([facility]) COVID-19 Clin Com Blood Type Antibody Screen Crossmatch ([facility]) Quality Stroke Does the patient have a stroke diagnosis?: No VTE Prior VTE?: No VTE Risk Level:: Medical - moderate - high VTE Device Contraindication: N/A - Device Ordered VTE Drug Contraindication: Treatment Not Indicated
--- NOTE | 2021-06-02 08:06 | PM.EVENT ---
Event Note Date of Service: 06/02/21 Event Note: Patient says that body pains are improving than she came with, but still has significant pain. denies any shortness of breath nausea vomiting or abdominal pain or cough or phlegm. Physical exam: Unchanged from H&P. assessment and plan: Sickle cell anemia crisis patient is getting blood transfusion s/p 2 prbc H&H improving slowly last h/h is 7.5, her basleine hct around 23 aded 1 prbc more repeat h/h after transfusion hydration , oxygen , pain control further plan coordinated in H&P note. Above management discussed with the patient in detail length she understand and in agreement with above plan. Need for inpatient: sickle cell crisis, IV pain control medication, transfusion
[2021-06-02] MEDS: 0.9 % Sodium Chloride Flush 3 ML SYRINGE IVFLUSH (08:07)
--- NOTE | 2021-06-02 08:16 | PHA.MEDREC ---
Pharmacy Consult ? Medication Reconciliation Pharmacy has completed the medication reconciliation.
--- NOTE | 2021-06-02 09:20 | PC.NURSE ---
this engineering technical writer assumed care of pt at 0915. pt alert and oriented. blood infusing appropriately, pt tolerating well she denies sob/dizziness/headache/chest pain. afebrile, vss. pt reports full body pain, Dr. Fuentes aware and will come to unit to see pt. will continue to monitor.
[2021-06-02] MEDS: Lactated Ringers 1,000 ML 125 ML IVCONT ×2 (10:20→20:36)
--- NOTE | 2021-06-02 13:10 | MHC.CM.PN ---
IMM 06/02/21 FEMALE 51 DX SICKLE CELL CRISIS PATIENT UNABLE TO FULLY PARTICIPATE IN CM ASSESSMENT. INFORMATION FOR THIS ASSESSMENT WAS GATHERED BY PATIENT INTERVIEW AND REVIEW OF EMR. PATIENT LIVES ALONE. HER PCP IS DR MENA. A TASK HAS BEEN SENT TO UPDATE PCP . SHE WAS NOT ABLE TO ANSWER IF SHE HAS BEEN VACCINATED OR NOT. DP HOME NO SERVICES. PATIENT MAY NEED ASSIST WITH TRANSPORTATION HOME.
[2021-06-02 14:07] LABS: Hemoglobin 7.5 g/dl (12.0-16.0)
[2021-06-02 14:11] LABS: Hematocrit 20.7 % (37.0-47.0)
--- NOTE | 2021-06-02 15:30 | PC.NURSE ---
blood transfusion started. pt afebrile, vss. pt denies chest pain, sob/difficulty breathing/dizziness/headache. pt tolerating blood transfusion well. will continue to monitor.
[2021-06-02] MEDS: Acetaminophen 325 MG TABLET 650 MG PO (16:31)
--- NOTE | 2021-06-02 18:10 | PC.NURSE ---
blood transfusion completed. pt tolerated well. no complaints. vss, denies pain, afebrile. pt assigned a room.
--- NOTE | 2021-06-02 18:20 | PC.NURSE ---
report given to VICTOR HUGO Blue.
[2021-06-02 20:04] LABS: Hematocrit 24.3 % (37.0-47.0); Hemoglobin 8.9 g/dl (12.0-16.0)
[2021-06-03] VITALS (10 sets, daily range): BP systolic 111–133; BP diastolic 61–92; PULSE 80–102; RESP 15–24; TEMP 36.2–37.8; O2SAT 88–98
[2021-06-03] MEDS: HYDROmorphone HCl 1 MG/ML SYRINGE IVPUSH ×4 (02:12→19:55)
[2021-06-03] MEDS: Lactated Ringers 1,000 ML 125 ML IVCONT (04:38)
[2021-06-03 06:23] LABS: Hematocrit 25.2 % (37.0-47.0); Hemoglobin 9.4 g/dl (12.0-16.0)
[2021-06-03] MEDS: hydrOXYzine HCL 25 MG TABLET PO ×3 (10:38→19:55)
[2021-06-03] MEDS: diphenhydrAMINE HCL 50 MG/ML VIAL 25 MG IVPUSH ×4 (10:38→20:39)
--- NOTE | 2021-06-03 11:37 | P.PNIM_ITS ---
Subjective Subjective Date of Service: 06/03/21 Interval History: sickle cell anemia , has some sob at [facility] uses 5 liter oxygen at home Review of Systems patient still has significant body pains, some shortness of breath question baseline getting worse , no cough or phlegm or fever. Physical Exam Vital Signs: Vital Signs: Last Vital Signs Temp 98.2 F 06/03/21 07:39 Pulse 98 06/03/21 07:39 Resp 20 06/03/21 07:39 BP 133/88 06/03/21 07:39 Pulse Ox 92 06/03/21 07:39 Oxygen Flow Rate 4 06/01/21 23:12 BMI result Body Mass Index 24.3 Appearance: Alert.? Oriented X3.? not in distress.? Eyes: Pupils equal, round and reactive to light.? Sclera nonicteric.? ENT: Pharynx normal.? Moist mucous membranes. cvs: rrr, [id number] , no murmur res: air entry seems fair , diminshed at bases , has few rales at bases abd: no rebound or guarding ,nt, bs present. ext pulses present , no cyanosis. neuro: axo3 , nonfocal. Objective Data Active Medications Acetaminophen (Acetaminophen 325 Mg Tablet) 650 mg PO Q6H PRN PRN Reason: Pain, Mild (Pain Scale 1-3) Diphenhydramine HCl (Diphenhydramine Hcl 50 Mg/Ml Vial) 25 mg IVPUSH Q6H PRN PRN Reason: Itching Last Admin: 06/03/21 10:38 Dose: 25 mg Documented by: KENDAL Docusate Sodium (Docusate Sodium 100 Mg Capsule) 100 mg PO DAILY PRN PRN Reason: Constipation Hydromorphone HCl (Hydromorphone Hcl 1 Mg/Ml Syringe) 1 mg IVPUSH Q4H PRN; Protocol PRN Reason: Pain, Severe (Pain Scale 7-10) Last Admin: 06/03/21 10:38 Dose: 1 mg Documented by: KENDAL Hydroxyzine HCl (Hydroxyzine Hcl 25 Mg Tablet) 25 mg PO Q4H PRN PRN Reason: Anxiety Last Admin: 06/03/21 10:38 Dose: 25 mg Documented by: KENDAL Lactated Ringer's (Lr) 1,000 mls @ 125 mls/hr IVCONT .Q8H [facility] Last Admin: 06/03/21 04:38 Dose: 125 mls/hr Documented by: JAKOB Ondansetron HCl (Ondansetron Hcl 4 Mg/2 Ml Vial) 4 mg IVPUSH Q8H PRN PRN Reason: Nausea and Vomiting Last Admin: 06/02/21 11:41 Dose: 4 mg Documented by: TONIA Sodium Chloride (0.9 % Sodium Chloride Flush 3 Ml Syringe) 3 ml IVFLUSH QSHIFT [facility] Last Admin: 06/03/21 09:11 Dose: Not Given Documented by: KENDAL Non-Admin Reason: IV Running Labs CBC & Chem 7: 06/03/21 05:53 06/02/21 03:59 Labs: Laboratory Results - last 24 hr 06/02/21 06/02/21 01:18 01:56 Smear Path Review Cancelled Blood Type O Positive Antibody Screen NEGATIVE Crossmatch (AHG) See Detail Assessment and Plan (1) Sickle cell anemia with crisis: Status: Acute (2) Hypoxia: Status: Acute Plan 51-year-old female with history of sickle cell disease presents to the hospital with complaints of chest pain 1. sickle cell anemia with crisis started on IV fluid, pain control, will receive PRBC -? no evidence of infection at this time, UA pending - ? urine drug screen pending -? follow CBC 2.? body pains : -? no evidence of acute chest syndrome -? no hypoxia -? chest x-ray as above -? no elevated troponin -? monitor 3. acute hypoxemia progressing slowly unclear- patient says that she takes 5 L oxygen at baseline- but feeling more short of breath feels better with mask still having pains thoracic area cxr -congestion vs pneumonitis , may need chest CT. added bnp as per the patient she had COVID last year and since then she is taking 5 L oxygen at baseline. d/w pulm : cta chest pendin, [id number] , hold fluids ?4. Patient says hx of leg dvt: started back eliquis since h/h stable . ?DVT prophylaxis:? SCDs in the setting of acute anemia Quality Stroke Does the patient have a stroke diagnosis?: No VTE Prior VTE?: No VTE Risk Level:: Medical - moderate - high VTE Device Contraindication: N/A - Device Ordered VTE Drug Contraindication: Treatment Not Indicated
[2021-06-03] MEDS: Albuterol/Iprat 2.5/0.5MG 3 ML AMPUL.NEB INHALE ×3 (15:20→21:14)
[2021-06-03] MEDS: Multivitamin TABLET 1 TAB PO (15:35)
[2021-06-03] MEDS: allopurinoL 100 MG TABLET PO (15:35)
[2021-06-03] MEDS: Omeprazole 20 MG CAPSULE.DR PO (15:35)
[2021-06-03] MEDS: Apixaban 5 MG TABLET PO (15:35)
[2021-06-03] MEDS: Loratadine 10 MG TABLET PO (15:35)
[2021-06-03] MEDS: Gabapentin 300 MG CAPSULE PO ×2 (15:35→19:55)
[2021-06-03] MEDS: 0.9 % Sodium Chloride Flush 3 ML SYRINGE IVFLUSH (15:57)
[2021-06-03] MEDS: iohexoL 350 MG/ML 100 ML INFUS..BTL IV (17:31)
[2021-06-03 17:54] LABS: B Type Natriuretic Peptide 976 pg/mL (<100)
[2021-06-03] MEDS: Furosemide 20 MG/2 ML VIAL IVPUSH (19:55)
--- NOTE | 2021-06-03 20:55 | PM.EVENT ---
Event Note Date of Service: 06/03/21 Event Note: Hypoxia: CT chest showed no evidence of pulmonary embolism; noted to have fibrotic changes and ground-glass opacities. Pulmonology consult JuanoNelasha p.r.n. ProBNP elevated-given Lasix 20 mg IV DuoNebs p.r.n. Continue supplemental oxygen and titrate down as tolerated.
[2021-06-03] MEDS: Hydroxyurea 500 MG CAPSULE PO (23:12)
[2021-06-04] VITALS (9 sets, daily range): BP systolic 119–132; BP diastolic 64–71; PULSE 77–98; RESP 16–20; TEMP 36.7–37.5; O2SAT 94–100
[2021-06-04] MEDS: 0.9 % Sodium Chloride Flush 3 ML SYRINGE IVFLUSH ×3 (01:31→21:06)
[2021-06-04] MEDS: HYDROmorphone HCl 1 MG/ML SYRINGE IVPUSH ×4 (04:03→21:14)
[2021-06-04] MEDS: hydrOXYzine HCL 25 MG TABLET PO ×2 (06:29→17:06)
[2021-06-04] MEDS: Albuterol/Iprat 2.5/0.5MG 3 ML AMPUL.NEB INHALE ×4 (07:40→20:12)
[2021-06-04] MEDS: Loratadine 10 MG TABLET PO (07:50)
[2021-06-04] MEDS: diphenhydrAMINE HCL 50 MG/ML VIAL 25 MG IVPUSH ×3 (07:50→21:14)
[2021-06-04] MEDS: Hydroxyurea 500 MG CAPSULE PO ×2 (07:50→21:06)
[2021-06-04] MEDS: Apixaban 5 MG TABLET PO ×2 (07:50→21:06)
[2021-06-04] MEDS: Furosemide 20 MG/2 ML VIAL IVPUSH ×2 (07:50→17:06)
[2021-06-04] MEDS: Gabapentin 300 MG CAPSULE PO ×3 (07:50→21:06)
[2021-06-04] MEDS: allopurinoL 100 MG TABLET PO (07:51)
[2021-06-04] MEDS: Multivitamin TABLET 1 TAB PO (07:51)
[2021-06-04] MEDS: Omeprazole 20 MG CAPSULE.DR PO (07:51)
[2021-06-04 08:05] LABS: Hematocrit 25.2 % (37.0-47.0); Hemoglobin 9.3 g/dl (12.0-16.0)
[2021-06-04 08:19] LABS: Anion Gap 14 (12-20); Blood Urea Nitrogen 9 mg/dL (9-16); Carbon Dioxide 21 mmol/L (22-29); Chloride 107 mmol/L (96-108); Creatinine Clr Calc Pharmacy 59.2; Estimated Glomerular Filt Rate > 60; Glucose Random 152 mg/dL (60-115); Potassium 3.7 mmol/L (3.3-5.1); Sodium 138 mmol/L (135-145)
--- NOTE | 2021-06-04 09:00 | CA_ITS ---
Transthoracic Echocardiogram Patient (Last, First, Middle): [place] Vizcaino, Gender: Female Date of : 1970 Age: 51 Procedure Date: 06/04/2021 Procedure Type: Transthoracic Echocardiogram Location: S3E Height: 162.56 cm Weight: 63.96 kg BSA: 1.69 m2 Heart Rate: bpm BP: 132 / 67 mmHg Shactor Helper: YUSRA Referring MD: Chavo Chaidez MD Symptoms: sob Study Quality: Good Conclusions: - Normal left ventricular size, thickness, and systolic function. The visually estimated ejection fraction is between 60-65%. - Mildly increased right ventricular cavity size. There is normal right ventricular systolic function. - The left atrium is moderately dilated. The right atrium is mildly dilated. Findings Left Ventricle Normal left ventricular size, thickness, and systolic function. The visually estimated ejection fraction is between 60-65%. Diastolic function is indeterminate on the basis of available data. Spectral Doppler is indicative of an impaired relaxation filling pattern. E/E prime ratio is <8, consistent with normal filling pressures. Right Ventricle Mildly increased right ventricular cavity size. There is normal right ventricular systolic function. Atria The left atrium is moderately dilated. The right atrium is mildly dilated. Aortic Valve Normal aortic valve structure and function. There is no aortic valve stenosis. There is no aortic valve regurgitation. Mitral Valve There is moderate mitral annular calcification. There is no mitral valve regurgitation. There is no mitral valve stenosis. Pulmonic Valve The pulmonic valve is likely normal. Tricuspid Valve Normal tricuspid valve structure and function. There is no tricuspid valve regurgitation. Normal right atrial pressure. There is no evidence of pulmonary hypertension. Great Vessels All visible segments of the aorta are normal in size. The visualized portions of the pulmonary artery and branches are normal. Venous The inferior vena cava is normal in size and collapses greater than 50% with inspiration. Pericardium/Pleural There is no evidence of pericardial effusion. Prior Study Comparison Changes noted compared to prior study dated: 07/06/2020. RV is mildly dilated. Measurements 2D Linear Measurements IVSd: 1.08 0.6-0.9/0.6-1.0 cm LVIDd: 5.12 3.9-5.3/4.2-5.9 cm LVIDd Index: 3.03 2.4-3.2/2.2-3.1 cm/m2 LVIDs: 3.03 2.0-3.6 cm LVPWd: 0.99 0.7-1.1 cm LA Diam: 4.10 2.7-3.8/3.0-4.0 cm LAIDs Index: 2.43 1.5-2.3 cm/m2 LV Mass: 246.82 67-162/88-224 g LV Mass Index: 146.04 43-95/49-115 g/m2 LVOT Diam: 2.50 3.0+(-)1.3 cm 2D Systolic Function EF 4C: 66.80 >55% EF 2C: 66.20 >55% EF BiP: 64.20 >55% Mitral Valve MV Pk E: 0.66 MV PK A: 0.75 MV Decel Time: 181.00 E/A: 0.90 E'Lateral: 14.80 E'Medial: 7.83 E/E' Med: 8.50 E/E' Lat: 4.50 PHT: 53.00 MVA PHT: 4.15 Decel Coleman: 3.66 Aortic Valve AoV Pk Chris: 1.69 AoV Mn Chris: 1.36 AoV VTI: 0.33 AoV Pk Grad: 11.00 Aov Mn Grad: 8.00 GERSON Cont.VTI: 3.64 LVOT LVOT Pk Chris: 1.37 LVOT Mn Chris: 0.88 LVOT VTI: 0.24 LVOT Pk Grad: 8.00 LVOT Mn Grad: 4.00 LVOT Diam: 2.50 LVOT Area: 4.91 Diastolic Function MV Pk E: 0.66 MV Pk A: 0.75 E/A: 0.90 E'Medial: 7.83 E/E' Med: 8.50 E' Laterial: 14.80 E/E' Lat: 4.50 Right Ventricle TAPSE (mm): 20.00 TVS' Chris: 19.00 Tricuspid Valve TR Pk Chris: 2.55 TR Pk Grad: 26.00 RA Press: 3.00 RVSP: 29.00 Great Vessels Aorta Sinus of Valsalva: 3.33 2.0-3.[address] Ridge: 2.77 1.7-3.4 cm Ao Asc: 3.10 2.1-3.4 cm Updated in Other Vendor System with Status of Final Sujit Goddard MD electronically signed on 06/05/2021 2:36:23 PM with status of Final
--- NOTE | 2021-06-04 10:39 | P.CONPL_ITS ---
History of Present Illness History of Present Illness Consult date: 06/04/21 Requesting physician: Clarisa Fuentes Chief complaint: sickle cell crisis Narrative: 51-year-old lady with underlying history of sickle cell anemia on hydroxyurea, substance abuse, prior admissions for acute chest syndrome, admitted on 06/02/2021 with a sickle cell crisis requiring multiple transfusions, further complicated by how worsening hypoxia now requiring 5-6 L to maintain normoxemia. her CT chest showed some pulmonary edema and mildly worsening pulmonary fibrosis. She has been started on diuretic with some improvement in her dyspnea. Review of Systems Constitutional: Constitutional: Denies daytime sleepiness, Denies excessive sweating, Denies fatigue, Denies fever(s), Denies lethargy, Denies malaise, Denies night sweats, Denies snoring and Denies weight loss Eyes: Eyes: Denies blurry vision and Denies itchy eyes ENT: Denies nasal congestion, Denies post nasal drip, Denies sinus pain, Denies sinus pressure and Denies other ( Thrush) Cardiovascular: Cardiovascular: Denies chest pain, Denies pedal edema, Denies dyspnea, Reports dyspnea on exertion, Denies orthopnea and Denies paroxysmal nocturnal dyspnea Respiratory: Respiratory: Denies cough, Denies hemoptysis, Denies excessive phlegm production, Denies dyspnea, Reports dyspnea on exertion, Denies snoring and Denies wheezing Gastrointestinal: Gastrointestinal: Denies abdominal pain and Denies heartburn Musculoskeletal: Musculoskeletal: Denies myalgias, Denies arthralgias and Denies joint swelling Integumentary/Breasts: Skin/Breast: Denies rash Neurologic: Denies memory loss and Denies seizure-like activity Psychiatric: Psychiatric: Denies abnormal sleep pattern, Denies anxiety and Denies memory loss Endocrine: Endocrine: Denies excessive sweating, Denies fatigue and Denies heat intolerance Hematologic/Lymphatic: Hematologic/Lymphatic: Denies easy bruising Allergic/Immunologic: Allergic/Immunologic: Denies itchy eyes, Denies seasonal rhinorrhea and Denies wheezing PMFSH Past Medical History Medical History 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 Bipolar 1 disorder Cocaine abuse GERD (gastroesophageal reflux disease) Pneumonia due to 2019 novel coronavirus Pneumonia due to 2019 novel coronavirus PTSD (post-traumatic stress disorder) Sickle cell anemia Sickle cell anemia UTI (urinary tract infection) Family History Family History Other Diabetes Surgical History Surgical History Hx of cholecystectomy Social History Social History Household Members: Children Housing: Apartment Do you presently have visiting nurse or other home services: Yes Unable to assess alcohol history related to: Unable to respond Alcohol intake: current Alcohol intake frequency: a few times a week Alcohol type: beer Patient Tobacco Use Status: Current everyday Tobacco user Tobacco use type: Cigarette Cigarette Packs Per Day: 0.5 Cigarettes Per Day: 10.0 Second Hand Smoke Exposure: No Substance Use Type: Crack/Cocaine service: No Current occupational status: unemployed and disabled Meds Allergies Allergy/AdvReac Type Severity Reaction Status Date / Time prochlorperazine Allergy Severe ANAPHYLAXIS Verified 05/10/20 01:39 [From COMPAZINE] Active Medications: Current Medications Acetaminophen (Acetaminophen 325 Mg Tablet) 650 mg PO Q6H PRN PRN Reason: Pain, Mild (Pain Scale 1-3) Albuterol/Ipratropium (Albuterol/Iprat 2.5/0.5mg 3 Ml Ampul.Neb) 3 ml INHALE RQ4H WHILE AWAKE [facility] Last Admin: 06/04/21 07:40 Dose: 3 ml Documented by: Albuterol/Ipratropium (Albuterol/Iprat 2.5/0.5mg 3 Ml Ampul.Neb) 3 ml INHALE RQ4H PRN PRN Reason: Shortness of Breath/Wheezing Last Admin: 06/03/21 21:14 Dose: 3 ml Documented by: Allopurinol (Allopurinol 100 Mg Tablet) 100 mg PO DAILY [facility] Last Admin: 06/04/21 07:51 Dose: 100 mg Documented by: Apixaban (Apixaban 5 Mg Tablet) 5 mg PO BID [facility] Last Admin: 06/04/21 07:50 Dose: 5 mg Documented by: Diphenhydramine HCl (Diphenhydramine Hcl 50 Mg/Ml Vial) 25 mg IVPUSH Q4H PRN PRN Reason: Itching Last Admin: 06/04/21 07:50 Dose: 25 mg Documented by: Docusate Sodium (Docusate Sodium 100 Mg Capsule) 100 mg PO DAILY PRN PRN Reason: Constipation Furosemide (Furosemide 20 Mg/2 Ml Vial) 20 mg IVPUSH BID@0900,1800 [facility]; Protocol Last Admin: 06/04/21 07:50 Dose: 20 mg Documented by: Gabapentin (Gabapentin 300 Mg Capsule) 300 mg PO TID [facility] Last Admin: 06/04/21 07:50 Dose: 300 mg Documented by: Hydromorphone HCl (Hydromorphone Hcl 1 Mg/Ml Syringe) 1 mg IVPUSH Q4H PRN; Protocol PRN Reason: Pain, Severe (Pain Scale 7-10) Last Admin: 06/04/21 07:59 Dose: 1 mg Documented by: Hydroxyurea (Hydroxyurea 500 Mg Capsule) 500 mg PO BID [facility] Last Admin: 06/04/21 07:50 Dose: 500 mg Documented by: Hydroxyzine HCl (Hydroxyzine Hcl 25 Mg Tablet) 25 mg PO Q4H PRN PRN Reason: Anxiety Last Admin: 06/04/21 06:29 Dose: 25 mg Documented by: Loratadine (Loratadine 10 Mg Tablet) 10 mg PO DAILY [facility] Last Admin: 06/04/21 07:50 Dose: 10 mg Documented by: Multivitamins/Vitamin C (Multivitamin Tablet) 1 tab PO DAILY [facility] Last Admin: 06/04/21 07:51 Dose: 1 tab Documented by: Omeprazole (Omeprazole 20 Mg Capsule.Dr) 20 mg PO DAILY [facility] Last Admin: 06/04/21 07:51 Dose: 20 mg Documented by: Ondansetron HCl (Ondansetron Hcl 4 Mg/2 Ml Vial) 4 mg IVPUSH Q8H PRN PRN Reason: Nausea and Vomiting Last Admin: 06/02/21 11:41 Dose: 4 mg Documented by: Quetiapine Fumarate (Quetiapine Fumarate 25 Mg Tablet) 25 mg PO BID PRN PRN Reason: Anxiety Sodium Chloride (0.9 % Sodium Chloride Flush 3 Ml Syringe) 3 ml IVFLUSH QSHIFT [facility] Last Admin: 06/04/21 07:51 Dose: 3 ml Documented by: Home Medications Medication Instructions Recorded Confirmed Last Taken Type hydroxyurea (sickle cell) 500 mg PO BID 06/26/20 06/02/21 Unknown History hydroxyzine pamoate 25 mg capsule 1 cap PO QID PRN 06/26/20 06/02/21 Unknown History albuterol sulfate 90 mcg/actuation 2 puff PO Q6H 06/02/21 06/02/21 Unknown History aerosol inhaler allopurinol 100 mg tablet 1 tab PO DAILY 06/02/21 06/02/21 Unknown History apixaban 5 mg tablet (Eliquis) 1 tab PO BID 06/02/21 06/02/21 Unknown History gabapentin 300 mg capsule 1 cap PO TID 06/02/21 06/02/21 Unknown History loratadine 10 mg tablet 1 tab PO DAILY 06/02/21 06/02/21 Unknown History multivitamin with folic acid 400 1 tab PO DAILY 06/02/21 06/02/21 Unknown History mcg tablet (Daily-Lazara (with folic acid)) omeprazole 20 mg capsule,delayed 1 cap PO DAILY 06/02/21 06/02/21 Unknown History release oxycodone-acetaminophen 7.5 mg-325 2 tab PO Q4H PRN 06/02/21 06/02/21 Unknown History mg tablet quetiapine 25 mg tablet 1 tab PO BID PRN 06/02/21 06/02/21 Unknown History Physical Exam Vital Signs: Vital Signs: Last Vital Signs Temp 98.3 F 06/04/21 08:00 Pulse 90 06/04/21 08:00 Resp 18 06/04/21 08:00 BP 127/71 06/04/21 08:00 Pulse Ox 96 06/04/21 08:00 Oxygen Flow Rate 4 06/01/21 23:12 BMI result Body Mass Index 24.3 Const: General: no acute distress and alert Nutritional Appearance: not obese Orientation/consciousness: Other orientation findings ( oriented) HEENT: Head: Yes atraumatic Mouth: no other ( thrush) Throat: No postnasal drainage Eyes: General: appearance normal, both eyes and all related structures Sclerae: sclerae normal EOM: EOMs intact bilaterally Neck: Neck: Yes supple Lymphatic: no lymphadenopathy noted Resp: Effort & Inspection: normal respiratory effort and no use of accessory muscles Auscultation: crackles ( Bibasilar) Cardio: Rate: regular rate Rhythm: regular rhythm Heart sounds: no gallops, no murmurs and no rubs GI: Palpation (GI): Soft to palpation and Other GI palpation findings present ( nontender) Skin: General skin exam: other ( warm) Rashes: no rashes Extrem: General: No clubbing, No cyanosis and No edema Results Laboratory Findings CBC and BMP: 06/04/21 07:56 06/04/21 07:56 ABG, PT/INR, D-dimer: PT/INR, D-dimer PT 13.7 SEC (9.9-13.0) H 06/02/21 01:35 INR 1.2 (0.9-1.1) H 06/02/21 01:35 Abnormal lab findings: Abnormal Labs 06/02/21 06/02/21 06/02/21 01:18 01:18 01:35 WBC 17.1 H RBC 1.57 L Hgb 5.4 L* Hct 14.5 L* MCH 34.4 H MCHC 37.2 H RDW 23.6 H Immature Gran % (Auto) 1.1 H [place] % (Auto) 14.1 H Lymph # (Auto) [place] # (Auto) 2.4 H Eos # (Auto) 0.5 H Abs Immat Gran (auto) 0.19 H Absolute Neuts (auto) 9.9 H Absolute Nucleated RBC 5.240 H Nucleated RBC % (auto) 30.6 H Absolute Retic 0.197 H Percent Retic 12.5 H Immature Retic Fraction 52.2 H Retic Hgb Equivalent 35.7 H PT 13.7 H INR 1.2 H Carbon Dioxide BUN 19 H Random Glucose Calcium Total Bilirubin 2.8 H AST 104 H ALT 33 H Alkaline Phosphatase 187 H B-Natriuretic Peptide Crossmatch (AHG) 06/02/21 06/02/21 06/02/21 01:56 03:59 03:59 WBC 16.6 H RBC 1.36 L Hgb 4.6 L* Hct 12.6 L* MCH 33.8 H MCHC 36.5 H RDW 22.9 H Immature Gran % (Auto) 1.5 H [place] % (Auto) 12.6 H Lymph # (Auto) 5.0 H [place] # (Auto) 2.1 H Eos # (Auto) 0.5 H Abs Immat Gran (auto) 0.25 H Absolute Neuts (auto) 8.7 H Absolute Nucleated RBC 4.940 H Nucleated RBC % (auto) 29.7 H Absolute Retic Percent Retic Immature Retic Fraction Retic Hgb Equivalent PT INR Carbon Dioxide 19 L BUN 17 H Random Glucose 122 H Calcium 7.9 L D Total Bilirubin AST ALT Alkaline Phosphatase B-Natriuretic Peptide Crossmatch ([facility]) See Detail 06/02/21 06/02/21 06/02/21 07:14 13:58 19:57 WBC RBC Hgb 6.7 L* D 7.5 L 8.9 L Hct 18.0 L* D 20.7 L* 24.3 L MCH MCHC RDW Immature Gran % (Auto) [place] % (Auto) Lymph # (Auto) [place] # (Auto) Eos # (Auto) Abs Immat Gran (auto) Absolute Neuts (auto) Absolute Nucleated RBC Nucleated RBC % (auto) Absolute Retic Percent Retic Immature Retic Fraction Retic Hgb Equivalent PT INR Carbon Dioxide BUN Random Glucose Calcium Total Bilirubin AST ALT Alkaline Phosphatase B-Natriuretic Peptide Crossmatch ([facility]) 06/03/21 06/03/21 06/04/21 05:53 17:00 07:56 WBC RBC Hgb 9.4 L 9.3 L Hct 25.2 L 25.2 L MCH MCHC RDW Immature Gran % (Auto) [place] % (Auto) Lymph # (Auto) [place] # (Auto) Eos # (Auto) Abs Immat Gran (auto) Absolute Neuts (auto) Absolute Nucleated RBC Nucleated RBC % (auto) Absolute Retic Percent Retic Immature Retic Fraction Retic Hgb Equivalent PT INR Carbon Dioxide BUN Random Glucose Calcium Total Bilirubin AST ALT Alkaline Phosphatase B-Natriuretic Peptide 976 H Crossmatch ([facility]) 06/04/21 07:56 WBC RBC Hgb Hct MCH MCHC RDW Immature Gran % (Auto) [place] % (Auto) Lymph # (Auto) [place] # (Auto) Eos # (Auto) Abs Immat Gran (auto) Absolute Neuts (auto) Absolute Nucleated RBC Nucleated RBC % (auto) Absolute Retic Percent Retic Immature Retic Fraction Retic Hgb Equivalent PT INR Carbon Dioxide 21 L BUN Random Glucose 152 H Calcium Total Bilirubin AST ALT Alkaline Phosphatase B-Natriuretic Peptide Crossmatch ([facility]) Assessment and Plan (1) Acute respiratory failure with hypoxia: Status: Acute Plan Impression: 51-year-old lady with underlying sickle cell anemia on hydroxyurea admitted with sickle cell crisis treated with blood transfusions, now with worsening dyspnea and CT chest demonstrating pulmonary edema and worsening pulmonary fibrosis with symptoms improving with diuresis. Recommendations: Agree with further diuresis. Patient appears to have worsen pulmonary fibrosis as a side effect from hydroxyurea. Consider discontinuation of hydroxyurea and Hematology evaluation for another option for maintenance therapy of underlying sickle cell anemia. Procedures Date of Service Date of Service: 06/04/21
--- NOTE | 2021-06-04 13:53 | MHC.CM.PN ---
CURRENT PLAN IS FURTHER DIURESIS CASE MANAGEMENT FOLLOWING FOR DC NEEDS.
--- NOTE | 2021-06-04 15:26 | HO.PM.IMPN ---
Subjective Subjective Date of Service: 06/04/21 Interval History: Pain control improved. Breathing quietly lying semi Valdez's Review of Systems Denies chest pain Admits shortness of breath with minimal exertion Denies nausea vomiting diarrhea denies fever chills Physical Exam Vital Signs: Vital Signs: Last Vital Signs Temp 98.3 F 06/04/21 08:00 Pulse 87 06/04/21 11:21 Resp 20 06/04/21 11:21 BP 127/71 06/04/21 08:00 Pulse Ox 96 06/04/21 08:00 Oxygen Flow Rate 4 06/01/21 23:12 BMI result Body Mass Index 24.3 Const: Other: Awake alert oriented x3 no acute distress Resp: Other: Diminished at bases with bilateral basilar crackles Cardio: Other: No S4; positive S1-S2; no S3 murmurs rubs or gallops GI: Other: Soft nontender nondistended with normoactive bowel sounds Extrem: Other: No edema bilaterally Objective Data Active Medications Acetaminophen (Acetaminophen 325 Mg Tablet) 650 mg PO Q6H PRN PRN Reason: Pain, Mild (Pain Scale 1-3) Albuterol/Ipratropium (Albuterol/Iprat 2.5/0.5mg 3 Ml Ampul.Neb) 3 ml INHALE RQ4H WHILE AWAKE [facility] Last Admin: 06/04/21 11:17 Dose: 3 ml Documented by: MORGAN Albuterol/Ipratropium (Albuterol/Iprat 2.5/0.5mg 3 Ml Ampul.Neb) 3 ml INHALE RQ4H PRN PRN Reason: Shortness of Breath/Wheezing Last Admin: 06/03/21 21:14 Dose: 3 ml Documented by: ANTOINETTE Allopurinol (Allopurinol 100 Mg Tablet) 100 mg PO DAILY [facility] Last Admin: 06/04/21 07:51 Dose: 100 mg Documented by: CAMRON Apixaban (Apixaban 5 Mg Tablet) 5 mg PO BID [facility] Last Admin: 06/04/21 07:50 Dose: 5 mg Documented by: CAMRON Diphenhydramine HCl (Diphenhydramine Hcl 50 Mg/Ml Vial) 25 mg IVPUSH Q4H PRN PRN Reason: Itching Last Admin: 06/04/21 07:50 Dose: 25 mg Documented by: CAMRON Docusate Sodium (Docusate Sodium 100 Mg Capsule) 100 mg PO DAILY PRN PRN Reason: Constipation Furosemide (Furosemide 20 Mg/2 Ml Vial) 20 mg IVPUSH BID@0900,1800 [facility]; Protocol Last Admin: 06/04/21 07:50 Dose: 20 mg Documented by: CAMRON Gabapentin (Gabapentin 300 Mg Capsule) 300 mg PO TID [facility] Last Admin: 06/04/21 15:08 Dose: 300 mg Documented by: CAMRON Hydromorphone HCl (Hydromorphone Hcl 1 Mg/Ml Syringe) 1 mg IVPUSH Q4H PRN; Protocol PRN Reason: Pain, Severe (Pain Scale 7-10) Last Admin: 06/04/21 07:59 Dose: 1 mg Documented by: CAMRON Hydroxyurea (Hydroxyurea 500 Mg Capsule) 500 mg PO BID [facility] Last Admin: 06/04/21 07:50 Dose: 500 mg Documented by: CAMRON Hydroxyzine HCl (Hydroxyzine Hcl 25 Mg Tablet) 25 mg PO Q4H PRN PRN Reason: Anxiety Last Admin: 06/04/21 06:29 Dose: 25 mg Documented by: JAKOB Loratadine (Loratadine 10 Mg Tablet) 10 mg PO DAILY [facility] Last Admin: 06/04/21 07:50 Dose: 10 mg Documented by: CAMRON Multivitamins/Vitamin C (Multivitamin Tablet) 1 tab PO DAILY [facility] Last Admin: 06/04/21 07:51 Dose: 1 tab Documented by: CAMRON Omeprazole (Omeprazole 20 Mg Capsule.Dr) 20 mg PO DAILY [facility] Last Admin: 06/04/21 07:51 Dose: 20 mg Documented by: CAMRON Ondansetron HCl (Ondansetron Hcl 4 Mg/2 Ml Vial) 4 mg IVPUSH Q8H PRN PRN Reason: Nausea and Vomiting Last Admin: 06/02/21 11:41 Dose: 4 mg Documented by: TONIA Quetiapine Fumarate (Quetiapine Fumarate 25 Mg Tablet) 25 mg PO BID PRN PRN Reason: Anxiety Sodium Chloride (0.9 % Sodium Chloride Flush 3 Ml Syringe) [facility] Last Admin: 06/04/21 07:51 Dose: 3 ml Documented by: CAMRON Labs CBC & Chem 7: 06/04/21 07:56 06/04/21 07:56 Labs: Laboratory Results - last 24 hr 06/03/21 06/04/21 17:00 07:56 Anion Gap 14 Estim Creat Clear Calc 59.2 Estimated GFR > 60 Random Glucose 152 H Calcium 9.0 D B-Natriuretic Peptide 976 H Assessment and Plan (1) Sickle cell anemia with crisis: Status: Acute (2) DVT (deep venous thrombosis): Status: Acute Plan 51-year-old female with history of sickle cell disease presents to the hospital with complaints of chest pain 1Sickle cell crisis -Hgb stable...transfuse as indicated -follow CBC daily 2.Acute hypoxemia -CT with mild pulmonary cogestion -continue IV lasix -titrate O2 as tolerated 3.DVT -noam as ordered ?DVT prophylaxis:? Noam Full Code Will likely require 1-2 midnights going forward for completion of treatment of sickle cell crisis Quality Stroke Does the patient have a stroke diagnosis?: No VTE Prior VTE?: No VTE Risk Level:: Medical - moderate - high VTE Device Contraindication: N/A - Device Ordered VTE Drug Contraindication: Treatment Not Indicated
[2021-06-04] MEDS: QUEtiapine Fumarate 25 MG TABLET PO (21:15)
[2021-06-05] VITALS (10 sets, daily range): BP systolic 105–124; BP diastolic 59–71; PULSE 70–104; RESP 14–20; TEMP 36.2–37.6; O2SAT 89–98
[2021-06-05 06:04] LABS: Hematocrit 26.9 % (37.0-47.0); Hemoglobin 9.8 g/dl (12.0-16.0); Mean Corpuscular HGB Conc 36.4 g/dl (31.0-35.0); Mean Corpuscular Hemoglobin 33.6 pg (27.0-33.0); Mean Corpuscular Volume 92.1 fL (80.0-98.0); Mean Platelet Volume 11.9 fL (9.4-12.3); Platelet Count 237 X10*3/uL (160-400); Red Blood Count 2.92 X10*6/uL (4.20-5.50); Red Cell Distribution Width 20.8 % (11.0-16.0)
[2021-06-05 06:11] LABS: NRBC Pct Auto 39.4 /100WBC (0.0-0.2); WBC ABN SCTR FOR CBC 1
[2021-06-05] MEDS: diphenhydrAMINE HCL 50 MG/ML VIAL 25 MG IVPUSH ×5 (06:27→23:55)
[2021-06-05] MEDS: HYDROmorphone HCl 1 MG/ML SYRINGE IVPUSH ×5 (06:27→23:55)
[2021-06-05 06:49] LABS: Alanine Aminotransferase 30 U/L (0-31); Albumin Level 3.4 g/dL (3.5-5.0); Alkaline Phosphatase 164 U/L (39-117); Anion Gap 15 (12-20); Aspartate Amino Transferase 86 U/L (5-31); Bilirubin Total 3.1 mg/dL (0.0-1.0); Blood Urea Nitrogen 13 mg/dL (9-16); Calcium 8.8 mg/dL (8.4-10.2); Carbon Dioxide 21 mmol/L (22-29); Chloride 107 mmol/L (96-108); Creatinine Clr Calc Pharmacy 68.3; Estimated Glomerular Filt Rate > 60; Glucose Fasting 101 mg/dL (60-99); Potassium 4.2 mmol/L (3.3-5.1); Sodium 139 mmol/L (135-145)
[2021-06-05] MEDS: Albuterol/Iprat 2.5/0.5MG 3 ML AMPUL.NEB INHALE ×5 (07:46→23:59)
[2021-06-05] MEDS: Multivitamin TABLET 1 TAB PO (08:28)
[2021-06-05] MEDS: Omeprazole 20 MG CAPSULE.DR PO (08:28)
[2021-06-05] MEDS: Apixaban 5 MG TABLET PO ×2 (08:28→19:50)
[2021-06-05] MEDS: Furosemide 20 MG/2 ML VIAL IVPUSH (08:28)
[2021-06-05] MEDS: Gabapentin 300 MG CAPSULE PO ×3 (08:28→19:50)
[2021-06-05] MEDS: allopurinoL 100 MG TABLET PO (08:28)
[2021-06-05] MEDS: hydrOXYzine HCL 25 MG TABLET PO ×2 (08:28→15:56)
[2021-06-05] MEDS: Loratadine 10 MG TABLET PO (08:28)
[2021-06-05] MEDS: 0.9 % Sodium Chloride Flush 3 ML SYRINGE IVFLUSH ×3 (08:29→19:51)
[2021-06-05] MEDS: Hydroxyurea 500 MG CAPSULE PO (08:29)
[2021-06-05 08:51] LABS: White Blood Count 10.5 X10*3/uL (4.8-10.8)
[2021-06-05 09:02] LABS: Band Neutrophils Percent 0 % (3-5); Eosinophils Absolute Manual 0.2 X10*3/uL (0.0-0.4); Eosinophils Percent Manual 2 % (0-4); Lymphocytes Absolute Manual 1.3 X10*3/uL (1.2-4.9); Lymphocytes Percent Manual 12 % (20-40); Monocytes Absolute Manual 0.9 X10*3/uL (0.1-1.2); Monocytes Percent Manual 9 % (2-11); Neutrophils Absolute Manual 8.1 X10*3/uL (2.0-8.3); Neutrophils Percent Manual 77 % (45-73); Nucleated Red Blood Cells 60 /100WBC (0-0)
[2021-06-05 09:03] LABS: RBC Morphology NOTED
[2021-06-05 09:09] LABS: Macrocytosis 1+ (5-14) /OIF; Microcytosis 1+ (5-14) /OIF
[2021-06-05 09:11] LABS: Large Platelet PRESENT; Platelet Estimate NORMAL (NORMAL); Platelet Morphology Comment NOTED; Sickle Cells 2+ (3-5) /OIF
[2021-06-05 09:12] LABS: Basophilic Stippling 1+ (0-2) /OIF; Howell Jolly Bodies PRESENT; Pappenheimer Bodies PRESENT; Polychromasia 2+ (3-5) /OIF; Target Cells 1+ (5-14) /OIF
[2021-06-05 09:13] LABS: Toxic Vacuolation PRESENT
[2021-06-05] MEDS: QUEtiapine Fumarate 25 MG TABLET PO (09:16)
--- NOTE | 2021-06-05 10:22 | MHC.CM.PN ---
PCP VERIFIED: DR ODALYS MIXON OF [facility] [phone] CASE MANAGEMENT OFFICE UPDATED WITH QUICK TASK
[2021-06-05] MEDS: Furosemide 40 MG/4 ML VIAL IVPUSH (10:43)
--- NOTE | 2021-06-05 14:32 | P.PNIM_ITS ---
Subjective Subjective Date of Service: 06/05/21 Interval History: Complaining of headache, shortness of breath and feels not getting enough oxygen, currently on Ventimask urinary output not measured accurately is greater than 6 L positive currently on IV Lasix 20 mg twice daily. Review of Systems [employer]OR headache, no dizziness GI no nausea no vomiting no diarrhea no urinary urgency, no frequency Review of Systems: Yes all other systems are reviewed and are negative Physical Exam Vital Signs: Vital Signs: Last Vital Signs Temp 98.1 F 06/05/21 11:38 Pulse 101 H 06/05/21 11:38 Resp 18 06/05/21 11:38 BP 105/59 L 06/05/21 11:38 Pulse Ox 92 06/05/21 11:38 Oxygen Flow Rate 4 06/01/21 23:12 BMI result Body Mass Index 24.3 Const: Other: General resting in bed mild distress due to pain Neck supple no JVD. CVS regular rate rhythm, Respiratory lungs coarse bibasilar crackles Gastrointestinal abdomen soft, nontender, bowel sounds audible Extremities no edema. Neuro nonfocal Skin no rash Objective Data Active Medications Acetaminophen (Acetaminophen 325 Mg Tablet) 650 mg PO Q6H PRN PRN Reason: Pain, Mild (Pain Scale 1-3) Albuterol/Ipratropium (Albuterol/Iprat 2.5/0.5mg 3 Ml Ampul.Neb) 3 ml INHALE RQ4H WHILE AWAKE [facility] Last Admin: 06/05/21 11:23 Dose: 3 ml Documented by: MORGAN Albuterol/Ipratropium (Albuterol/Iprat 2.5/0.5mg 3 Ml Ampul.Neb) 3 ml INHALE RQ4H PRN PRN Reason: Shortness of Breath/Wheezing Last Admin: 06/03/21 21:14 Dose: 3 ml Documented by: ANTOINETTE Allopurinol (Allopurinol 100 Mg Tablet) 100 mg PO DAILY [facility] Last Admin: 06/05/21 08:28 Dose: 100 mg Documented by: CAMRON Apixaban (Apixaban 5 Mg Tablet) 5 mg PO BID [facility] Last Admin: 06/05/21 08:28 Dose: 5 mg Documented by: CAMRON Diphenhydramine HCl (Diphenhydramine Hcl 50 Mg/Ml Vial) 25 mg IVPUSH Q4H PRN PRN Reason: Itching Last Admin: 06/05/21 11:10 Dose: 25 mg Documented by: CAMRON Docusate Sodium (Docusate Sodium 100 Mg Capsule) 100 mg PO DAILY PRN PRN Reason: Constipation Furosemide (Furosemide 20 Mg/2 Ml Vial) 40 mg IVPUSH BID@0900,1800 [facility]; Protocol Gabapentin (Gabapentin 300 Mg Capsule) 300 mg PO TID [facility] Last Admin: 06/05/21 14:26 Dose: 300 mg Documented by: CAMRON Hydromorphone HCl (Hydromorphone Hcl 1 Mg/Ml Syringe) 1 mg IVPUSH Q4H PRN; Protocol PRN Reason: Pain, Severe (Pain Scale 7-10) Last Admin: 06/05/21 11:10 Dose: 1 mg Documented by: CAMRON Hydroxyzine HCl (Hydroxyzine Hcl 25 Mg Tablet) 25 mg PO Q4H PRN PRN Reason: Anxiety Last Admin: 06/05/21 08:28 Dose: 25 mg Documented by: CAMRON Loratadine (Loratadine 10 Mg Tablet) 10 mg PO DAILY [facility] Last Admin: 06/05/21 08:28 Dose: 10 mg Documented by: CAMRON Multivitamins/Vitamin C (Multivitamin Tablet) 1 tab PO DAILY [facility] Last Admin: 06/05/21 08:28 Dose: 1 tab Documented by: CAMRON Omeprazole (Omeprazole 20 Mg Capsule.Dr) 20 mg PO DAILY [facility] Last Admin: 06/05/21 08:28 Dose: 20 mg Documented by: CAMRON Ondansetron HCl (Ondansetron Hcl 4 Mg/2 Ml Vial) 4 mg IVPUSH Q8H PRN PRN Reason: Nausea and Vomiting Last Admin: 06/02/21 11:41 Dose: 4 mg Documented by: TONIA Quetiapine Fumarate (Quetiapine Fumarate 25 Mg Tablet) 25 mg PO BID PRN PRN Reason: Anxiety Last Admin: 06/05/21 09:16 Dose: 25 mg Documented by: CAMRON Sodium Chloride (0.9 % Sodium Chloride Flush 3 Ml Syringe) 3 ml IVFLUSH [facility] Last Admin: 06/05/21 08:29 Dose: 3 ml Documented by: CAMRON Labs CBC & Chem 7: 06/05/21 05:53 06/05/21 05:53 Labs: Laboratory Results - last 24 hr 06/05/21 06/05/21 05:53 05:53 MCV 92.1 MCH 33.6 H MCHC 36.4 H RDW 20.8 H Plt Count 237 MPV 11.9 Immature Gran % (Auto) Cancelled Neut % (Auto) Cancelled Lymph % (Auto) Cancelled [place] % (Auto) Cancelled Eos % (Auto) Cancelled Baso % (Auto) Cancelled Lymph # (Auto) Cancelled [place] # (Auto) Cancelled Eos # (Auto) Cancelled Baso # (Auto) Cancelled Abs Immat Gran (auto) Cancelled Absolute Neuts (auto) Cancelled Absolute Nucleated RBC 6.810 H Nucleated RBC % (auto) 39.4 H Neutrophils % (Manual) 77 H Band Neutrophils % 0 L Lymphocytes % (Manual) 12 L Monocytes % (Manual) 9 Eosinophils % (Manual) 2 Abs Neuts (Manual) 8.1 Lymphocytes # (Manual) 1.3 Monocytes # (Manual) 0.9 Eosinophils # (Manual) 0.2 Nucleated RBCs 60 H Toxic Vacuolation PRESENT Platelet Estimate NORMAL Large Platelets PRESENT Plt Morphology Comment NOTED RBC Morphology NOTED Polychromasia 2+ (3-5) Basophilic Stippling 1+ (0-2) Microcytosis 1+ (5-14) Macrocytosis 1+ (5-14) Pappenheimer Bodies PRESENT Sickle Cells 2+ (3-5) Target Cells 1+ (5-14) [place] Bodies PRESENT Anion Gap 15 Estim Creat Clear Calc 68.3 Estimated GFR > 60 Fasting Glucose 101 H Calcium 8.8 Total Bilirubin 3.1 H AST 86 H ALT 30 Alkaline Phosphatase 164 H Total Protein 7.0 Albumin 3.4 L Assessment and Plan (1) Sickle cell anemia with crisis: Status: Acute (2) DVT (deep venous thrombosis): Status: Acute Plan 51-year-old female with history of sickle cell disease presents to the hospital with complaints of chest pain 1.Sickle cell crisis - pain will control on IV Dilaudid, Hgb stable,follow CBC daily, DC hydroxyurea due to worsening pulmonary fibrosis, recommend outpatient follow-up with Hematology for alternate medication 2.Acute hypoxemia due to acute diastolic heart failure -echocardiogram showed EF 60-65% abnormal diastolic function , BNP 976 -CT chest showed mild pulmonary cogestion and worsening fibrosis therefore will DC hydroxyurea -continue IV lasix will increase dose to [address] -place Nair catheter for I and O's monitoring -titrate O2 to keep finger oximetry greater than 90 3.DVT -eliquis as ordered 4. GERD continue PPI 5. history of bipolar disorder not on any medication ?DVT prophylaxis:? Eliquis Full Code Will need inpatient hospitalization due to acute diastolic heart failure requiring IV Lasix Quality Stroke Does the patient have a stroke diagnosis?: No VTE Prior VTE?: No VTE Risk Level:: Medical - moderate - high VTE Device Contraindication: N/A - Device Ordered VTE Drug Contraindication: Treatment Not Indicated
--- NOTE | 2021-06-05 15:59 | MHC.CM.PN ---
PER PHYSICIAN ROUNDS, PATIENT STILL REQUIRING LASIX AND O2 DC PLAN TO BE DETERMINED
[2021-06-05] MEDS: Furosemide 20 MG/2 ML VIAL 40 MG IVPUSH (17:52)
[2021-06-06] VITALS (12 sets, daily range): BP systolic 90–136; BP diastolic 46–65; PULSE 74–102; RESP 16–20; TEMP 36.1–37.9; O2SAT 90–98
[2021-06-06] MEDS: HYDROmorphone HCl 1 MG/ML SYRINGE IVPUSH (04:02)
[2021-06-06] MEDS: diphenhydrAMINE HCL 50 MG/ML VIAL 25 MG IVPUSH ×4 (04:02→17:20)
[2021-06-06] MEDS: QUEtiapine Fumarate 25 MG TABLET PO ×2 (06:08→18:27)
[2021-06-06] MEDS: Albuterol/Iprat 2.5/0.5MG 3 ML AMPUL.NEB INHALE ×4 (07:51→19:47)
[2021-06-06 08:51] LABS: Hematocrit 26.3 % (37.0-47.0); Hemoglobin 9.3 g/dl (12.0-16.0); Mean Corpuscular HGB Conc 35.4 g/dl (31.0-35.0); Mean Corpuscular Hemoglobin 32.7 pg (27.0-33.0); Mean Corpuscular Volume 92.6 fL (80.0-98.0); PLT CLUMP 1; Red Blood Count 2.84 X10*6/uL (4.20-5.50); Red Cell Distribution Width 19.9 % (11.0-16.0)
[2021-06-06 08:56] LABS: WBC ABN SCTR FOR CBC 1
[2021-06-06] MEDS: Omeprazole 20 MG CAPSULE.DR PO (09:03)
[2021-06-06] MEDS: 0.9 % Sodium Chloride Flush 3 ML SYRINGE IVFLUSH ×3 (09:03→19:18)
[2021-06-06] MEDS: Gabapentin 300 MG CAPSULE PO ×3 (09:03→19:18)
[2021-06-06] MEDS: Apixaban 5 MG TABLET PO ×2 (09:03→19:18)
[2021-06-06] MEDS: Multivitamin TABLET 1 TAB PO (09:03)
[2021-06-06] MEDS: Loratadine 10 MG TABLET PO (09:03)
[2021-06-06] MEDS: allopurinoL 100 MG TABLET PO (09:03)
[2021-06-06] MEDS: HYDROmorphone HCl 1 MG/ML SYRINGE 0.5 MG IVPUSH ×3 (09:07→17:19)
[2021-06-06 09:12] LABS: B Type Natriuretic Peptide 14 pg/mL (<100)
[2021-06-06 09:14] LABS: White Blood Count 18.4 X10*3/uL (4.8-10.8)
[2021-06-06 09:15] LABS: Mean Platelet Volume 12.6 fL (9.4-12.3); Platelet Count 169 X10*3/uL (160-400)
[2021-06-06 09:20] LABS: Anion Gap 16 (12-20); Blood Urea Nitrogen 20 mg/dL (9-16); Calcium 8.3 mg/dL (8.4-10.2); Carbon Dioxide 23 mmol/L (22-29); Chloride 100 mmol/L (96-108); Estimated Glomerular Filt Rate 57; Glucose Random 103 mg/dL (60-115); Potassium 4.7 mmol/L (3.3-5.1); Sodium 134 mmol/L (135-145)
[2021-06-06] MEDS: hydrOXYzine HCL 25 MG TABLET PO ×2 (12:48→17:33)
--- NOTE | 2021-06-06 13:31 | HO.PM.IMPN ---
Subjective Subjective Date of Service: 06/06/21 Interval History: Complaining of generalized pain, no shortness of breath, no cough, noted to have low-grade fever, upto 100 .3, Nair catheter with clear urine, tolerating regular diet eating Reich's with no nausea, no vomiting, no diarrhea. Review of Systems Review of Systems: Yes all other systems are reviewed and are negative Physical Exam Vital Signs: Vital Signs: Last Vital Signs Temp 100.3 F 06/06/21 11:21 Pulse 102 H 06/06/21 11:21 Resp 19 06/06/21 11:21 BP 99/62 06/06/21 11:21 Pulse Ox 93 06/06/21 11:21 Oxygen Flow Rate 4 06/01/21 23:12 BMI result Body Mass Index 24.3 Const: Other: General? resting in bed , appears comfortable no distress Neck supple no JVD. CVS? regular rate rhythm, Respiratory lungs?,dry bibasilar crackles Gastrointestinal abdomen soft, nontender, bowel sounds audible Extremities no edema. Neuro nonfocal Skin no rash Objective Data Active Medications Acetaminophen (Acetaminophen 325 Mg Tablet) 650 mg PO Q6H PRN PRN Reason: Pain, Mild (Pain Scale 1-3) Albuterol/Ipratropium (Albuterol/Iprat 2.5/0.5mg 3 Ml Ampul.Neb) 3 ml INHALE RQ4H WHILE AWAKE [facility] Last Admin: 06/06/21 11:32 Dose: 3 ml Documented by: SUNITA Albuterol/Ipratropium (Albuterol/Iprat 2.5/0.5mg 3 Ml Ampul.Neb) 3 ml INHALE RQ4H PRN PRN Reason: Shortness of Breath/Wheezing Last Admin: 06/03/21 21:14 Dose: 3 ml Documented by: ANTOINETTE Allopurinol (Allopurinol 100 Mg Tablet) 100 mg PO DAILY [facility] Last Admin: 06/06/21 09:03 Dose: 100 mg Documented by: CAMRON Apixaban (Apixaban 5 Mg Tablet) 5 mg PO BID [facility] Last Admin: 06/06/21 09:03 Dose: 5 mg Documented by: CAMRON Diphenhydramine HCl (Diphenhydramine Hcl 50 Mg/Ml Vial) 25 mg IVPUSH Q4H PRN PRN Reason: Itching Last Admin: 06/06/21 13:06 Dose: 25 mg Documented by: CAMRON Docusate Sodium (Docusate Sodium 100 Mg Capsule) 100 mg PO DAILY PRN PRN Reason: Constipation Gabapentin (Gabapentin 300 Mg Capsule) 300 mg PO TID [facility] Last Admin: 06/06/21 13:07 Dose: 300 mg Documented by: CAMRON Hydromorphone HCl (Hydromorphone Hcl 1 Mg/Ml Syringe) 0.5 mg IVPUSH Q4H PRN; Protocol PRN Reason: Pain, Severe (Pain Scale 7-10) Last Admin: 06/06/21 13:07 Dose: 0.5 mg Documented by: CAMRON Hydroxyzine HCl (Hydroxyzine Hcl 25 Mg Tablet) 25 mg PO Q4H PRN PRN Reason: Anxiety Last Admin: 06/06/21 12:48 Dose: 25 mg Documented by: CAMRON Loratadine (Loratadine 10 Mg Tablet) 10 mg PO DAILY [facility] Last Admin: 06/06/21 09:03 Dose: 10 mg Documented by: CAMRON Multivitamins/Vitamin C (Multivitamin Tablet) 1 tab PO DAILY [facility] Last Admin: 06/06/21 09:03 Dose: 1 tab Documented by: CAMRON Omeprazole (Omeprazole 20 Mg Capsule.Dr) 20 mg PO DAILY [facility] Last Admin: 06/06/21 09:03 Dose: 20 mg Documented by: CAMRON Ondansetron HCl (Ondansetron Hcl 4 Mg/2 Ml Vial) 4 mg IVPUSH Q8H PRN PRN Reason: Nausea and Vomiting Last Admin: 06/02/21 11:41 Dose: 4 mg Documented by: TONIA Quetiapine Fumarate (Quetiapine Fumarate 25 Mg Tablet) 25 mg PO BID PRN PRN Reason: Anxiety Last Admin: 06/06/21 06:08 Dose: 25 mg Documented by: STACIE Sodium Chloride (0.9 % Sodium Chloride Flush 3 Ml Syringe) 3 ml IVFLUSH QSHIFT [facility] Last Admin: 06/06/21 09:03 Dose: 3 ml Documented by: CAMRON Labs CBC & Chem 7: 06/06/21 08:33 06/06/21 08:33 Labs: Laboratory Results - last 24 hr 06/06/21 06/06/21 06/06/21 08:33 08:33 08:33 MCV 92.6 MCH 32.7 MCHC 35.4 H RDW 19.9 H Plt Count 169 D MPV 12.6 H Absolute Nucleated RBC 4.980 H Nucleated RBC % (auto) 27.0 H Anion Gap 16 Estim Creat Clear Calc 57.0 Estimated GFR 57 Random Glucose 103 Calcium 8.3 L B-Natriuretic Peptide 14 Assessment and Plan (1) Sickle cell anemia with crisis: Status: Acute (2) DVT (deep venous thrombosis): Status: Acute Plan 51-year-old female with history of sickle cell disease presents to the hospital with complaints of chest pain 1.Sickle cell crisis - patient appears comfortable, will wean IV Dilaudid, Hgb stable, WBC bumped to 18,000 with low-grade fever, will check a UA and chest x-ray, no new skin rash, no nausea vomiting or diarrhea WBC likely reactive has had intermittent leukocytosis in the past, follow clinical course Recommend outpatient follow-up with Hematology at [facility] since hydroxyurea discontinued due to worsening pulmonary fibrosis 2.Acute on chronic hypoxic respiratory failure due to acute diastolic heart failure Feeling better today, now on 6 L of oxygen by nasal cannula, at home use 5 L of oxygen, will DC IV Lasix drip BNP normal, BMP stable -echocardiogram showed EF 60-65% abnormal diastolic function ,CT chest showed mild pulmonary cogestion and worsening fibrosis -titrate O2 to keep finger oximetry greater than 90 3.DVT -eliquis as ordered 4. GERD continue PPI 5. history of bipolar disorder not on any medication, no behavioral issues noted ?DVT prophylaxis:? Eliquis Full Code Will need inpatient hospitalization due sickle cell crisis, with fever and rising WBC count need continued IV analgesics and further workup for leukocytosis. Quality Stroke Does the patient have a stroke diagnosis?: No VTE Prior VTE?: No VTE Risk Level:: Medical - moderate - high VTE Device Contraindication: N/A - Device Ordered VTE Drug Contraindication: Treatment Not Indicated
--- NOTE | 2021-06-06 14:51 | MHC.CM.PN ---
CURRENTLY ON REGULAR DIET AND TOLERATING. STILL REQUIRES DILAUDID. PLAN IS DISCHARGE HOME TOMORROW (06/07/21) IMM 06/06 IN CHART
[2021-06-06 15:09] LABS: Appearance Urine HAZY; Color Urine YELLOW; Glucose Urine UA NEG (NEG); Leukocyte Esterase Urine NEG (NEG); Nitrite Urine NEG (NEG); UACC Culture Trigger NO; Urine Blood 3+ (NEG); Urine Ketones NEG (NEG); Urine Protein NEG (NEG-TRACE)
[2021-06-06 15:53] LABS: Bacteria Urine 2+ /LPF; RBC Urine 30-49 /HPF (0); Renal Epithelial Cells Urine 1+ /LPF; Squamous Epithelial Cell Urine 1+ /LPF
[2021-06-06] MEDS: Acetaminophen 325 MG TABLET 650 MG PO (19:18)
[2021-06-07 03:44] VITALS: BP 118/58; PULSE 82; RESP 14; TEMP 36.6; O2SAT 90
[2021-06-07] MEDS: HYDROmorphone HCl 1 MG/ML SYRINGE 0.5 MG IVPUSH (03:57)
[2021-06-07] MEDS: diphenhydrAMINE HCL 50 MG/ML VIAL 25 MG IVPUSH ×2 (03:57→08:47)
[2021-06-07] MEDS: hydrOXYzine HCL 25 MG TABLET PO (05:35)
[2021-06-07 06:29] LABS: Hematocrit 27.3 % (37.0-47.0); Hemoglobin 9.5 g/dl (12.0-16.0); Mean Corpuscular HGB Conc 34.8 g/dl (31.0-35.0); Mean Corpuscular Volume 94.8 fL (80.0-98.0); Mean Platelet Volume 11.9 fL (9.4-12.3); PLT CLUMP 1; Red Blood Count 2.88 X10*6/uL (4.20-5.50); Red Cell Distribution Width 19.1 % (11.0-16.0)
[2021-06-07 06:32] LABS: WBC ABN SCTR FOR CBC 1
[2021-06-07 07:00] LABS: White Blood Count 13.3 X10*3/uL (4.8-10.8)
[2021-06-07 07:01] LABS: Platelet Count 159 X10*3/uL (160-400)
[2021-06-07 07:17] VITALS: BP 114/67; PULSE 74; RESP 18; TEMP 36.3; O2SAT 93
[2021-06-07] MEDS: Albuterol/Iprat 2.5/0.5MG 3 ML AMPUL.NEB INHALE ×2 (07:48→11:12)
[2021-06-07 07:50] VITALS: PULSE 74; RESP 16; O2SAT 93
[2021-06-07] MEDS: 0.9 % Sodium Chloride Flush 3 ML SYRINGE IVFLUSH (08:47)
[2021-06-07] MEDS: Gabapentin 300 MG CAPSULE PO (08:47)
[2021-06-07] MEDS: Acetaminophen 325 MG TABLET 650 MG PO (08:47)
[2021-06-07] MEDS: Multivitamin TABLET 1 TAB PO (08:47)
[2021-06-07] MEDS: oxyCODONE HCl Immed Release 5 MG TABLET PO (08:47)
[2021-06-07] MEDS: Loratadine 10 MG TABLET PO (08:47)
[2021-06-07] MEDS: allopurinoL 100 MG TABLET PO (08:47)
[2021-06-07] MEDS: QUEtiapine Fumarate 25 MG TABLET PO (08:48)
[2021-06-07] MEDS: Apixaban 5 MG TABLET PO (08:48)
[2021-06-07] MEDS: Omeprazole 20 MG CAPSULE.DR PO (08:48)
--- NOTE | 2021-06-07 09:57 | PM.DS ---
DS: Providers Provider Date of Service: 06/07/21 Date of admission: 06/02/21 01:57 Primary care physician: Unknown Physician Consults: 06/03/21 14:57 Consult to Pulmonology Routine Consulting Provider: Darin Genao Reason for consultation: acute hypoxemia -? unclera etilology ( on home oxygen since last covid epis Has provider been notified: No 06/03/21 20:53 Consult to Pulmonology Routine Consulting Provider: Cale Kowalski Reason for consultation: Hypoxia; abnormal Ct chest DS: Diagnosis Discharge Diagnosis (1) Sickle cell anemia with crisis: Status: Acute (2) DVT (deep venous thrombosis): Status: Acute DS: Summary Hospital Course Hospital Course: Chief Complaint: pain ?51-year-old female past medical history of sickle cell disease, bipolar, history of acute chest syndrome due to sickle cell, history of cocaine abuse, PTSD, presents to the hospital with complaints of chest pain.? Patient? is very somnolent but reports that her pain started yesterday, all over the chest, she also has pain all over her body, she reports that she has been compliant with her sickle medications. ? she denies any dehydration, no dysuria, no cough. ? No new bleeding.? She is significant itchy all over her body. ?vitals reviewed unremarkable Labs are significant for WBC count of 17,000, hemoglobin of 5.4, hematocrit 14.5,? total bili of 2.8, AST of 104, ALT of 33, alk-phos of 187, ?UA pending Chest x-ray shows no focal consolidation, small nodular foci in the perihilar region are suggestive of vessels. Patient getting PRBC and will be admitted for further management. Hospital course 51-year-old female with history of sickle cell disease presents to the hospital with complaints of chest pain and diagnosed to have Sickle cell crisis, patient treated with IV Dilaudid, receive 1 unit of packed RBC, her hematocrit improved and remained stable, patient was noted to have leukocytosis of 18,000, that improved without treatment to 15,000 likely reactive had a normal urinalysis and chest x-ray, patient symptoms gradually improved currently has no significant pain, hydroxyurea has been discontinued since noted to have worsening pulmonary fibrosis therefore recommended to follow-up with Hematology at [facility] for alternate medication, patient also noted to have acute on chronic hypoxic respiratory failure likely due to acute diastolic heart failure patient treated with IV Lasix, her BNP normalized kidney function and electrolytes are stable,echocardiogram showed EF 60-65%, abnormal diastolic function ,CT? chest showed mild pulmonary cogestion and worsening fibrosis, oxygen has been titrated down to 5 L , patient at baseline he uses 5 L of oxygen at home, since patient is able to ambulate and remains hemodynamically stable she is being discharged home and recommended to continue all home medications except for hydroxyurea. In regard to history of.DVT continue Eliquis, and for GERD she has been continued on Prilosec, in regard to a bipolar disorder patient had no behavioral issues will be continued on home medications. Time Spent with Patient Time attestation: Total time spent providing and/or coordinating discharge services: Discharge coordination time: Greater than 30 minutes Quality: Safe Use of Opioids Does Pt have an Active Cancer Diagnosis on the Problem List?: No Quality: Stroke Does the patient have a stroke diagnosis?: No Physical Exam Vital Signs: Vital Signs: Last Vital Signs Temp 97.3 F 06/07/21 07:17 Pulse 74 06/07/21 07:50 Resp 16 06/07/21 07:50 BP 114/67 06/07/21 07:17 Pulse Ox 93 06/07/21 07:17 Oxygen Flow Rate 4 06/01/21 23:12 BMI result Body Mass Index 24.3 Const: Other: General? resting in bed , appears comfortable no distress Neck supple no JVD. CVS? regular rate rhythm, Respiratory lungs?,dry bibasilar crackles Gastrointestinal abdomen soft, nontender, bowel sounds audible Extremities no edema. Neuro nonfocal Skin no rash DS: Data Data Completed and Pending Completed studies during hospitalization [Text1]: Procedures Detoxification Services for Substance Abuse Treatment (12/05/19) Insertion of Infusion Device into Right Subclavian Vein, Percutaneous Approach (06/26/20) Insertion of Infusion Device into Superior Vena Cava, Percutaneous Approach (06/26/20) Transfusion of Nonautologous Red Blood Cells into Peripheral Vein, Percutaneous Approach (06/26/20) Labs on day of discharge: Laboratory Results - last 24 hr 06/06/21 06/07/21 14:30 06:05 WBC 13.3 H RBC 2.88 L Hgb 9.5 L Hct 27.3 L MCV 94.8 MCH 33.0 MCHC 34.8 RDW 19.1 H Plt Count 159 L MPV 11.9 Absolute Nucleated RBC 3.870 H Nucleated RBC % (auto) 29.0 H Urine Color YELLOW Urine Appearance HAZY Urine pH 6.0 Ur Specific [place] 1.010 Urine Protein NEG Urine Glucose (UA) NEG Urine Ketones NEG Urine Blood 3+ H Urine Nitrite NEG Ur Leukocyte Esterase NEG Urine RBC 30-49 H Urine WBC 1-4 Ur Squamous Epith Cells 1+ Ur Renal Epithelial Cell 1+ Urine Bacteria 2+ Discharge Plan Discharge Patient Disposition: Home, Self-Care Discharge Diagnosis: Sickle cell crisis Acute diastolic heart failure Acute on chronic hypoxic respiratory failure Referrals: ODALYS MIXON MD [Other] - 1 Week Discharge Medications: Continued hydroxyzine pamoate 25 mg capsule 1 cap PO QID PRN (Reason: anxiety) 0RF quetiapine 25 mg tablet 1 tab PO BID PRN (Reason: Anxiety) 0RF allopurinol 100 mg tablet 1 tab PO DAILY 0RF gabapentin 300 mg capsule 1 cap PO TID 0RF omeprazole 20 mg capsule,delayed release(DR/EC) 1 cap PO DAILY 0RF albuterol sulfate 90 mcg/actuation HFA aerosol inhaler 2 puff PO Q6H 0RF loratadine 10 mg tablet 1 tab PO DAILY 0RF multivitamin with folic acid [Daily-Lazara (with folic acid)] 400 mcg tablet 1 tab PO DAILY 0RF Eliquis 5 mg tablet 1 tab PO BID 0RF oxycodone-acetaminophen 7.5-325 mg tablet 2 tab PO Q4H PRN (Reason: moderate pain) 0RF Discontinued hydroxyurea (sickle cell) 500 mg PO BID 0RF Discharge Orders: Discharge Order (Routine); Ordered 06/07/21 Ordered By: Guzman Melgar Diet: advance to usual diet Activity on Discharge: As tolerated Stand Alone Forms: Patient Portal Discharge page Care Plan Goals: Sickle cell crisis resolved hydroxyurea discontinued due to worsening pulmonary fibrosis discussed with hematology regarding alternate medication Continue home oxygen as before Health Concerns: Take all home medications as before. Plan of Treatment: Outpatient follow-up primary care physician and Hematology at [facility] call to make an appointment Assessment: As per discharge summary
[2021-06-07 11:14] VITALS: PULSE 74; RESP 16; O2SAT 93
[2021-06-07 11:29] VITALS: BP 137/63; PULSE 80; RESP 20; TEMP 36.2; O2SAT 96
--- NOTE | 2021-06-07 11:33 | PC.NURSE ---
Nair removed at 0930. Patient due to void at 1530.
--- NOTE | 2021-06-07 12:05 | MHC.CM.PN ---
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 she will bring [facility] o2 tank for transport and contacted the dme supplier for oxygen to be delivered to her house today Lionel MIXON OF [facility] [phone] instructed to clal for post hopsia discharge follow up transportation family [facility] 06/06/21
== END 2021-06-07 13:24 | disposition home or self-care (01) | DRG 811 ==
LOC: HO.ED 06-02 01:51 → HO.EDOVER 06-02 02:22 → HO.S3 06-02 17:39
PROVIDERS: Hospitalist; Internal Medicine; Admitting Provider Internal Medicine; Emergency Provider Internal Medicine; PCP Student in an Organized Health Care Education/Training Program; Visit Provider Hospitalist
DX: D57.00 Hb-SS disease with crisis, unspecified (principal); I50.31 Acute diastolic (congestive) heart failure; J96.21 Acute and chronic respiratory failure with hypoxia; K21.9 Gastro-esophageal reflux disease without esophagitis; F43.10 Post-traumatic stress disorder, unspecified; Z20.822 Contact with and (suspected) exposure to COVID-19; Z86.16 Personal history of COVID-19; Z87.01 Personal history of pneumonia (recurrent); Z99.2 Dependence on renal dialysis; Z86.718 Personal history of other venous thrombosis and embolism; Z87.440 Personal history of urinary (tract) infections; Z71.6 Tobacco abuse counseling; Z79.01 Long term (current) use of anticoagulants; Z79.899 Other long term (current) drug therapy
CPT/HCPCS: 36415; 36430; 71045; 71275; 80048; 80053; 81001; 81003; 83880; 84484; 85007; 85014; 85018; 85025; 85027; 85045; 85610; 85730; 86850; 86900; 86901; 86902; 86920; 86922; 87635; 93005; 93306; 94640; 96361; 96374; 96375; 99285; C1758; J1170; J1200; J1940; J2060; J2405; P9016; Q9967

== ENCOUNTER 2021-12-15 01:59 | Inpatient (IN) | payer MEDICARE, MEDICAID, SELFPAY ==
[2021-12-15] VITALS (11 sets, daily range): BP systolic 107–138; BP diastolic 54–75; PULSE 73–98; RESP 17–20; TEMP 36.4–37.2; O2SAT 92–100; BMI 24.0
--- NOTE | ~2021-12-15 | XR_ITS ---
EXAMINATION: XR CHEST CLINICAL INFORMATION: Chest pain COMPARISON: 06/06/2021 TECHNIQUE: Frontal view of the chest was obtained. FINDINGS: Chronic diffuse prominence of interstitium compatible with known pulmonary fibrosis. Mild bilateral hazy airspace opacity appears similar to prior. No pleural effusion or pneumothorax. Cardiomegaly. XR/XR chest 1V IMPRESSION: Stable portable radiographic appearance of the chest demonstrating chronic pulmonary fibrotic changes hazy airspace opacity bilaterally.
--- NOTE | 2021-12-15 02:33 | ECG_ITS ---
Test Reason : SICKLE CELL Blood Pressure : / mmHG Vent. Rate : 080 BPM Atrial Rate : 080 BPM P-R Int : 136 ms QRS Dur : 086 ms QT Int : 390 ms P-R-T Axes : 060 029 054 degrees QTc Int : 449 ms Normal sinus rhythm Normal ECG When compared with ECG of 01-JUN-2021 23:23, Nonspecific T wave abnormality, improved in Anterolateral leads Referred By: Kay Bear Electronically Signed By:JOSE LUIS MANCERA MD
[2021-12-15 03:36] LABS: COVID-19 Test Negative (Negative)
[2021-12-15 03:46] LABS: Hemoglobin 7.1 g/dl (12.0-16.0); Mean Corpuscular HGB Conc 36.8 g/dl (31.0-35.0); Mean Corpuscular Hemoglobin 35.5 pg (27.0-33.0); Mean Corpuscular Volume 96.5 fL (80.0-98.0); Mean Platelet Volume 12.7 fL (9.4-12.3); PLT CLUMP 1; Red Cell Distribution Width 21.3 % (11.0-16.0); Retic HGB Equivalent 38.1 pg (30.0-35.0); Reticulocyte Percent 13.4 % (0.5-1.8); Reticulocytes Absolute 0.268 X10*6/uL (0.026-0.095)
[2021-12-15 03:49] LABS: INTERNATIONAL NORM RATIO 1.2 (0.9-1.1); Prothrombin Time 14.2 SEC (10.0-13.1)
[2021-12-15] MEDS: 0.9 % Sodium Chloride 1,000 ML 999 ML IV (03:59)
--- NOTE | 2021-12-15 03:59 | PC.NURSE ---
L EJ placed by Md Bear. labs sent. ekg done. xray done. pt resting on stretcher. call hernández within reach
[2021-12-15 04:09] LABS: Alanine Aminotransferase 64 U/L (0-31); Albumin Level 3.5 g/dL (3.5-5.0); Alkaline Phosphatase 221 U/L (39-117); Anion Gap 15 (12-20); Aspartate Amino Transferase 194 U/L (5-31); Bilirubin Total 3.2 mg/dL (0.0-1.0); Blood Urea Nitrogen 18 mg/dL (9-16); Calcium 8.5 mg/dL (8.4-10.2); Carbon Dioxide 24 mmol/L (22-29); Chloride 106 mmol/L (96-108); Creatinine Clr Calc Pharmacy 43.9; Estimated Glomerular Filt Rate 43; Ethanol < 10 mg/dL; Glucose Random 89 mg/dL (60-115); Lipase 120 U/L (8-78); Potassium 4.5 mmol/L (3.3-5.1); Sodium 140 mmol/L (135-145); Total Protein 7.5 g/dL (6.5-8.0)
[2021-12-15 04:12] LABS: Hematocrit 19.3 % (37.0-47.0); NRBC Pct Auto 12.5 /100WBC (0.0-0.2); WBC ABN SCTR FOR CBC 1
[2021-12-15 04:24] LABS: Band Neutrophils Percent 3 % (3-5); Basophilic Stippling 1+ (0-2) /OIF; Basophils Percent Manual 1 % (0-2); Eosinophils Percent Manual 3 % (0-4); Lymphocytes Percent Manual 36 % (20-40); Macrocytosis 2+ (15-30) /OIF; Monocytes Percent Manual 13 % (2-11); Neutrophils Percent Manual 44 % (45-73); Nucleated Red Blood Cells 25 /100WBC (0-0); Platelet Estimate SLIGHTLY DECREASED (NORMAL); Platelet Morphology Comment NORMAL; Polychromasia 1+ (0-2) /OIF; RBC Morphology NOTED; Sickle Cells 3+ (>5) /OIF; Target Cells 1+ (5-14) /OIF
[2021-12-15 04:25] LABS: Howell Jolly Bodies PRESENT; Pappenheimer Bodies PRESENT; Smudge Cells PRESENT
[2021-12-15 04:26] LABS: Basophils Abs Manual 0.2 X10*3/uL (0.0-0.2); Eosinophils Absolute Manual 0.5 X10*3/uL (0.0-0.4); Lymphocytes Absolute Manual 5.4 X10*3/uL (1.2-4.9); Neutrophils Absolute Manual 7.1 X10*3/uL (2.0-8.3); Platelet Count 109 X10*3/uL (160-400); White Blood Count 15.1 X10*3/uL (4.8-10.8)
[2021-12-15] MEDS: diphenhydrAMINE HCL 50 MG/ML VIAL 25 MG IVPUSH ×3 (05:22→18:26)
[2021-12-15] MEDS: cefTRIAXone sodium 1 GM in 0.9 % Sodium Chloride 50 ML IV ×2 (05:22→07:57)
[2021-12-15] MEDS: HYDROmorphone HCl 0.5 MG/0.5 ML SYRINGE IVPUSH (05:23)
--- NOTE | 2021-12-15 05:33 | ED.GENADULT ---
HPI - General Adult General Chief complaint: General Medical Stated complaint: BODY PAIN,ON 5 LPM HOME 02,HX SICKLE CELL PER EMS Time Seen by Provider: 12/15/21 02:35 Source: patient Mode of arrival: EMS History of Present Illness HPI narrative: 51-year-old female with known sickle cell is presenting with ?weeks of joint pain, chest pain, headaches at home?. She states that she feels like she is experiencing a sickle cell crisis but denies any fever or chills and otherwise denies any shortness of breath. Patient is on 5 L of nasal cannula at baseline. Related Data Home Medications Medication Instructions Recorded Confirmed hydroxyzine pamoate 25 mg capsule 1 cap PO QID PRN anxiety 06/26/20 06/02/21 albuterol sulfate 90 mcg/actuation 2 puff PO Q6H 06/02/21 06/02/21 aerosol inhaler allopurinol 100 mg tablet 1 tab PO DAILY 06/02/21 06/02/21 apixaban 5 mg tablet (Eliquis) 1 tab PO BID 06/02/21 06/02/21 gabapentin 300 mg capsule 1 cap PO TID 06/02/21 06/02/21 loratadine 10 mg tablet 1 tab PO DAILY 06/02/21 06/02/21 multivitamin with folic acid 400 1 tab PO DAILY 06/02/21 06/02/21 mcg tablet (Daily-Lazara (with folic acid)) omeprazole 20 mg capsule,delayed 1 cap PO DAILY 06/02/21 06/02/21 release oxycodone-acetaminophen 7.5 mg-325 2 tab PO Q4H PRN moderate pain 06/02/21 06/02/21 mg tablet quetiapine 25 mg tablet 1 tab PO BID PRN Anxiety 06/02/21 06/02/21 Allergies Allergy/AdvReac Type Severity Reaction Status Date / Time prochlorperazine Allergy Severe ANAPHYLAXIS Verified 05/10/20 01:39 [From COMPAZINE] Review of Systems Review of Systems: Pertinent positives and negatives as stated in HPI 10 point review of systems is otherwise negative. 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 Bipolar 1 disorder Cocaine abuse DVT (deep venous thrombosis) GERD (gastroesophageal reflux disease) Hypoxia Pneumonia due to 2019 novel coronavirus Pneumonia due to 2019 novel coronavirus PTSD (post-traumatic stress disorder) Sickle cell anemia Sickle cell anemia UTI (urinary tract infection) Surgical History Hx of cholecystectomy Family History Family History Other Diabetes Social History Social History Household Members: Children Housing: Apartment Do you presently have visiting nurse or other home services: Yes Unable to assess alcohol history related to: Unable to respond Alcohol intake: current Alcohol intake frequency: a few times a week Alcohol type: beer Patient Tobacco Use Status: Current everyday Tobacco user Tobacco use type: Cigarette Cigarette Packs Per Day: 0.5 Cigarettes Per Day: 10.0 Second Hand Smoke Exposure: No Substance Use Type: Crack/Cocaine Advance Directives: No Advance Directives Information Provided: Yes service: No Current occupational status: unemployed and disabled Physical Exam ED Vital Signs: Vital Signs - 24 hr 12/15/21 02:14 Temperature 99.0 F Pulse Rate 85 Respiratory Rate 20 Blood Pressure 119/75 Pulse Oximetry 100 Oxygen Delivery Method Room Air BMI result Body Mass Index 24.0 VITAL SIGNS: Reviewed. GENERAL: Well developed, well nourished, in no acute distress. HEAD: Normocephalic/atraumatic EYES: PERRLA, EOMI EARS: Ext canals without abnormality OROPHARYNX: no oral lesions noted, posterior pharynx clear NECK: Supple, no adenopathy LUNGS: Normal breath sounds. No adventitious sounds or accessory muscle use. SpO2<100> on 5 L nasal cannula CARDIOVASCULAR: Regular rate and rhythm without noted murmurs, no JVD or lower extremity edema. ABDOMEN: Soft, non-tender, non-distended with bowel sounds. MUSCULOSKELETAL: No tenderness, deformities, or effusions noted on gross inspection. EXTREMITIES: No cyanosis, clubbing or edema, pain on palpation at most joints. SKIN: Inspection of the skin reveals no rashes NEUROLOGIC: Alert and oriented x 4. Strength and sensation to light touch were grossly intact x 4. Course Course Course Narrative: 51-year-old female with history and clinical presentation suspicious for sickle cell crisis. On review of all investigations findings are consistent with sickle cell crisis and suspect underlying infectious for which patient will receive 1 g of Rocephin. I discussed the case with inpatient hospitalist who agrees with administration of antibiotics and also recommends 1 unit of PRBC. Medical Decision Making Lab Data Result diagrams: 12/15/21 03:40 12/15/21 03:43 Labs: Lab Results 12/15/21 12/15/21 12/15/21 Range/Units 03:12 03:40 03:40 WBC 15.1 H (4.8-10.8) X10*3/uL RBC 2.00 L D (4.20-5.50) X10*6/uL Hgb 7.1 L D (12.0-16.0) g/dl Hct 19.3 L* D (37.0-47.0) % MCV 96.5 (80.0-98.0) fL MCH 35.5 H (27.0-33.0) pg MCHC 36.8 H (31.0-35.0) g/dl RDW 21.3 H (11.0-16.0) % Plt Count 109 L D (160-400) X10*3/uL MPV 12.7 H (9.4-12.3) fL Immature Gran % (Auto) Cancelled Neut % (Auto) Cancelled Lymph % (Auto) Cancelled [place] % (Auto) Cancelled Eos % (Auto) Cancelled Baso % (Auto) Cancelled Lymph # (Auto) Cancelled [place] # (Auto) Cancelled Eos # (Auto) Cancelled Baso # (Auto) Cancelled Abs Immat Gran (auto) Cancelled Absolute Neuts (auto) Cancelled Absolute Nucleated RBC 1.890 H (0.0-0.012) X10*3/uL Nucleated RBC % (auto) 12.5 H (0.0-0.2) /100WBC Neutrophils % (Manual) 44 L (45-73) % Band Neutrophils % 3 (3-5) % Lymphocytes % (Manual) 36 (20-40) % Monocytes % (Manual) 13 H (2-11) % Eosinophils % (Manual) 3 (0-4) % Basophils % (Manual) 1 (0-2) % Abs Neuts (Manual) 7.1 (2.0-8.3) X10*3/uL Lymphocytes # (Manual) 5.4 H (1.2-4.9) X10*3/uL Monocytes # (Manual) 2.0 H (0.1-1.2) X10*3/uL Eosinophils # (Manual) 0.5 H (0.0-0.4) X10*3/uL Basophils # (Manual) 0.2 (0.0-0.2) X10*3/uL Nucleated RBCs 25 H (0-0) /100WBC Smudge Cells PRESENT Platelet Estimate SLIGHTLY DECREASED (NORMAL) Plt Morphology Comment NORMAL RBC Morphology NOTED Polychromasia 1+ (0-2) /OIF Basophilic Stippling 1+ (0-2) /OIF Macrocytosis 2+ (15-30) /OIF Pappenheimer Bodies PRESENT Sickle Cells 3+ (>5) /OIF Target Cells 1+ (5-14) /OIF [place] Bodies PRESENT Absolute Retic 0.268 H (0.026-0.095) X10*6/uL Percent Retic 13.4 H (0.5-1.8) % Immature Retic Fraction 53.0 H (3.0-15.9) % Retic Hgb Equivalent 38.1 H (30.0-35.0) pg PT 14.2 H (10.0-13.1) SEC INR 1.2 H (0.9-1.1) Sodium (135-145) mmol/L Potassium (3.3-5.1) mmol/L Chloride (96-108) mmol/L Carbon Dioxide (22-29) mmol/L Anion Gap (12-20) BUN (9-16) mg/dL Creatinine (0.5-1.4) mg/dL Estim Creat Clear Calc Estimated GFR Random Glucose (60-115) mg/dL Calcium (8.4-10.2) mg/dL Total Bilirubin (0.0-1.0) mg/dL AST (5-31) U/L ALT (0-31) U/L Alkaline Phosphatase (39-117) U/L Total Protein (6.5-8.0) g/dL Albumin (3.5-5.0) g/dL Lipase (8-78) U/L Ethyl Alcohol mg/dL COVID-19 ([facility]) Negative (Negative) COVID-19 Clin Com See Note 12/15/21 Range/Units 03:43 WBC (4.8-10.8) X10*3/uL RBC (4.20-5.50) X10*6/uL Hgb (12.0-16.0) g/dl Hct (37.0-47.0) % MCV (80.0-98.0) fL MCH (27.0-33.0) pg MCHC (31.0-35.0) g/dl RDW (11.0-16.0) % Plt Count (160-400) X10*3/uL MPV (9.4-12.3) fL Immature Gran % (Auto) Neut % (Auto) Lymph % (Auto) [place] % (Auto) Eos % (Auto) Baso % (Auto) Lymph # (Auto) [place] # (Auto) Eos # (Auto) Baso # (Auto) Abs Immat Gran (auto) Absolute Neuts (auto) Absolute Nucleated RBC (0.0-0.012) X10*3/uL Nucleated RBC % (auto) (0.0-0.2) /100WBC Neutrophils % (Manual) (45-73) % Band Neutrophils % (3-5) % Lymphocytes % (Manual) (20-40) % Monocytes % (Manual) (2-11) % Eosinophils % (Manual) (0-4) % Basophils % (Manual) (0-2) % Abs Neuts (Manual) (2.0-8.3) X10*3/uL Lymphocytes # (Manual) (1.2-4.9) X10*3/uL Monocytes # (Manual) (0.1-1.2) X10*3/uL Eosinophils # (Manual) (0.0-0.4) X10*3/uL Basophils # (Manual) (0.0-0.2) X10*3/uL Nucleated RBCs (0-0) /100WBC Smudge Cells Platelet Estimate (NORMAL) Plt Morphology Comment RBC Morphology Polychromasia /OIF Basophilic Stippling /OIF Macrocytosis /OIF Pappenheimer Bodies Sickle Cells /OIF Target Cells /OIF [place] Bodies Absolute Retic (0.026-0.095) X10*6/uL Percent Retic (0.5-1.8) % Immature Retic Fraction (3.0-15.9) % Retic Hgb Equivalent (30.0-35.0) pg PT (10.0-13.1) SEC INR (0.9-1.1) Sodium 140 (135-145) mmol/L Potassium 4.5 (3.3-5.1) mmol/L Chloride 106 (96-108) mmol/L Carbon Dioxide 24 (22-29) mmol/L Anion Gap 15 (12-20) BUN 18 H (9-16) mg/dL Creatinine 1.32 (0.5-1.4) mg/dL Estim Creat Clear Calc 43.9 Estimated GFR 43 Random Glucose 89 (60-115) mg/dL Calcium 8.5 (8.4-10.2) mg/dL Total Bilirubin 3.2 H (0.0-1.0) mg/dL AST 194 H (5-31) U/L ALT 64 H (0-31) U/L Alkaline Phosphatase 221 H D (39-117) U/L Total Protein 7.5 (6.5-8.0) g/dL Albumin 3.5 (3.5-5.0) g/dL Lipase 120 H (8-78) U/L Ethyl Alcohol < 10 mg/dL COVID-19 ([facility]) (Negative) COVID-19 Clin Com ECG Data Attestation: I personally reviewed and interpreted this ECG as follows: Prior ECG tracings: available for review Interpretation: Normal sinus rhythm, HR-80, no STEMI, ND/QRS/QTC is within normal limits. Critical Care Time Critical Care Time Critical Care Time: Yes Total Critical Care Time: 30 Attestation: I personally attest to this time spent taking care of the patient. Discharge Plan Discharge Clinical Impression: Sickle cell anemia with crisis, Sepsis Patient Disposition: Admitted As Inpatient Prescriptions: No Action hydroxyzine pamoate 25 mg capsule 1 cap PO QID PRN (Reason: anxiety) quetiapine 25 mg tablet 1 tab PO BID PRN (Reason: Anxiety) allopurinol 100 mg tablet 1 tab PO DAILY gabapentin 300 mg capsule 1 cap PO TID omeprazole 20 mg capsule,delayed release(DR/EC) 1 cap PO DAILY albuterol sulfate 90 mcg/actuation HFA aerosol inhaler 2 puff PO Q6H loratadine 10 mg tablet 1 tab PO DAILY multivitamin with folic acid [Daily-Lazara (with folic acid)] 400 mcg tablet 1 tab PO DAILY Eliquis 5 mg tablet 1 tab PO BID oxycodone-acetaminophen 7.5-325 mg tablet 2 tab PO Q4H PRN (Reason: moderate pain)
[2021-12-15 05:36] LABS: Lactic Acid 0.9 mmol/L (0.5-2.0)
--- OUTSIDE RECORDS SUMMARY | 2021-12-15 06:03 | XMS_ITS | Continuity of Care Document ---
:1970 Author Organization [facility] Address [address] [place] [address]- Care Team Providers Name Role Phone Lesia Cuevas MD Primary Care Physician Encounter [facility] Date(s): 03/13/21 - 04/12/[address] [address]- Allergies, Adverse Reactions, Alerts Substance Reaction Severity Status Compazine tongue swelling Active Immunizations Given and Recorded Vaccine Date Status Refusal Reason SARS-CoV-2 (COVID-19) mRNA BNT-162b2 vac1 12/31/20 Given SARS-CoV-2 (COVID-19) mRNA BNT-162b2 vac 12/10/20 Given influenza virus vaccine, inactivated 12/29/17 Given influenza virus vaccine, inactivated2 11/09/16 Given influenza virus vaccine, inactivated 02/22/16 Given influenza virus vaccine, inactivated 12/19/13 Given influenza virus vaccine, inactivated 03/03/13 Given influenza virus vaccine, inactivated 05/15/12 Given influenza virus vaccine, inactivated 12/07/10 Given influenza virus vaccine, inactivated 01/17/07 Given tetanus/diphtheria/pertussis, acel(Tdap) 11/25/16 Given pneumococcal 23-valent vaccine 12/07/10 Given Pneumococcal Vaccine (oldterm) 12/17/05 Given 1Result Comment: normal saline diluent added lot number [id number] expires [id number] Comment: Afluria Medications albuterol 0.083% inhalation solution 3 mL = 2.5 mg, Inhalation, Every 6 hours, PRN shortness of breath, For diagnosis of asthma ICD-10 code J45.998, # 100 each, 11 Refills, Maintenance, 03/15/21 17:29:00 EST, Solution, [facility]/pharmacy #[id number],164, cm, 03/12/21 15:25:00 EST, Height Start Date: 03/15/21 Status: Orderedallopurinol 100 mg oral tablet 100 mg, 1, tablet, By Mouth, Daily, # 30 tablet, Refills 5, Tot. Refills 5, Maintenance, 12/21/20 17:44:00 EDT, Route to Pharmacy Electronically, [facility]/pharmacy #[id number], 164, cm, 12/21/20 14:12:00 EDT, Height Start Date: 12/21/20 Status: Orderedapixaban 5 mg oral tablet 1 tablet = 5 mg, By Mouth, 2 times a day, # 60 tablet, 5 Refills, Maintenance, 12/21/20 17:44:00 EDT, Tablet, [facility]/pharmacy #[id number], Partial fill upon patient request if the prescription is for a scheduleII opioid drug., 164, cm, 12/21/20 14:12:00 EDT,... Start Date: 12/21/20 Status: OrderedAtivan 1 mg oral tablet 1 tablet = 1 mg, By Mouth, 2 times a day, [facility] checked okay to fill on 03/08, # 56 tablet, 0 Refills, Maintenance, 03/08/21 18:22:00 EST, Tablet, [facility]/pharmacy #[id number], 164, cm, 12/21/20 14:12:00 EDT, Height Start Date: 03/08/21 Status: OrderedBenadryl 25 mg oral capsule 1 capsule = 25 mg, By Mouth, 3 times a day, PRN for itching, # 100 capsule, 1 Refills, Maintenance, 03/14/21 18:27:00 EST, Capsule, [facility]/pharmacy #[id number], Partial fill upon patient request if the prescription is for a schedule II opioid drug., 164, cm, 0... Start Date: 03/14/21 Status: OrderedCompression Stockings See Instructions, # 2 each, Maintenance, surgical, knee length 20-30 mm Hg Dx: Peripheral edema (R60.9), 12/21/20 17:13:00 EDT, Supply Start Date: 12/21/20 Status: OrderedEucerin Plus topical lotion 1 application, Topically, 2 times a day, PRN for dry skin, # 180 mL, 11 Refills, Maintenance, 12/23/20 22:41:00 EDT, Lotion, [facility]/pharmacy #[id number], Partial fill upon patient request if the prescription isfor a schedule II opioid drug., 1 application Top... Start Date: 12/23/20 Status: Orderedfurosemide 20 mg oral tablet 1, tablet, By Mouth, Daily, # 30 tablet, Refills 0, Route to Pharmacy Electronically, [facility] STORE [id number], 164, cm, 12/21/20 14:12:00 EDT, Height Start Date: 01/15/21 Status: Orderedgabapentin 100 mg oral capsule 100 mg, 1, capsule, By Mouth, 3 times a day, PRN, # 90 capsule, Refills 1, Tot. Refills 1, Maintenance, Pain , Moderate, 12/21/20 17:54:00 EDT, Route to Pharmacy Electronically, [facility]/pharmacy #[id number], Partial fill upon patient request if the prescription... Start Date: 12/21/20 Stop Date: 02/19/21 Status: Orderedhydroxyurea 500 mg oral capsule 1 capsule = 500 mg, By Mouth, 2 times a day, for 30 days, # 60 capsule, 5 Refills, Acute 06/19/21 17:53:00 EDT, 12/21/20 17:53:00 EDT, Capsule, [facility]/pharmacy #[id number], Partial fill upon patient request if the prescription is for a schedule II opioid drug.... Start Date: 12/21/20 Stop Date: 06/19/21 Status: OrderedhydrOXYzine hydrochloride 50 mg oral tablet 1 tablet = 50 mg, By Mouth, 3 times a day, PRN as needed for anxiety, for 30 days, # 90 tablet, 3 Refills, Acute 04/20/21 17:44:00 EST, 12/21/20 17:44:00 EDT, Tablet, [facility]/pharmacy #[id number], Partial fill upon patient request if the prescription is for a s... Start Date: 12/21/20 Stop Date: 04/20/21 Status: OrderedMiraLax oral powder for reconstitution = 17 Gm, By Mouth, Daily, PRN Constipation, dissolve in water before taking, # 527 Gm, 5 Refills, Maintenance, 03/17/18 15:35:34 EST, REC Powder, 17 Gm By Mouth Daily,PRN:Constipation,Instr:dissolve inwater before taking Start Date: 03/17/18 Status: Orderedmultivitamin Multiple Vitamins oral tablet 1 tablet, By Mouth, Daily, # 30 tablet, 11 Refills, Maintenance, 12/21/20 17:54:00 EDT, Tablet, [facility]/pharmacy #[id number], Partial fill upon patient request if the prescription is for a schedule II opioid drug., 1 tablet By Mouth Daily,x30 days, 164, cm, ... Start Date: 12/21/20 Stop Date: 12/16/21 Status: OrderedNebulizer Nebulizer, See Instructions, # 1 each, Refills 0, Tot. Refills 0, Maintenance, Use with albuterol asneeded for shortness of breath Dx: Asthma J45.998, 03/15/21 17:29:00 EST, Supply, 164, cm, 03/12/21 15:25:00 EST, Height Start Date: 03/15/21 Status: OrderedNutritional Supplements See Instructions, # 120 each, Refills 11, Tot. Refills 11, Maintenance, Ensure (vanilla flavored), take up to 4 cans per day to supplement nutrition Dx: Post- covid syndrome (U09.9), failure to thrive (R62.7), 01/04/21 13:15:00 EST, Supply Start Date: 01/04/21 Status: Orderedomeprazole 20 mg oral delayed release tablet 1 tablet = 20 mg, By Mouth, Daily, # 30 each, 5 Refills, Maintenance, 12/21/20 17:43:00 EDT, CR Tablet, [facility]/pharmacy #[id number], 164, cm, 12/21/20 14:12:00 EDT, Height Start Date: 12/21/20 Status: OrderedPercocet 7.5 mg-325 mg oral tablet 2 tablet, By Mouth, Every 4 hours, PRN Pain , Moderate, # 84 tablet, 0 Refills, Maintenance, 04/11/21 11:22:00 EST, Tablet, [facility]/pharmacy #[id number], Partial fill upon patient request if the prescription is for a schedule II opioid drug., 2 tablet By Mouth... Start Date: 04/11/21 Stop Date: 04/18/21 Status: OrderedPortable oxygen compressor Portable oxygen compressor, See Instructions, # 1 each, Refills 0, Tot. Refills 0, Maintenance, Use for supplemental oxygen as needed for shortness of breath. Dx: Post-covid syndrome (U09.9), 12/21/20 17:15:00 EDT, Supply Start Date: 12/21/20 Status: OrderedpredniSONE 10 mg oral tablet 2 tablet = 20 mg, By Mouth, Daily, with food, # 60 tablet, 0 Refills, Maintenance, 12/21/20 17:43:00EDT, Tablet, [facility] #[id number], 164, cm, 12/21/20 14:12:00 EDT, Height Start Date: 12/21/20 Stop Date: 01/20/21 Status: OrderedpredniSONE 5 mg oral tablet See Instructions, alternate 4 tabs/d with 3 tabs/d for 2 weeks, # 120 tablet, 0 Refills, Maintenance, 03/13/21 13:09:00 EST, Tablet, [facility]/pharmacy #[id number], Partial fill upon patient request if the prescription is for a schedule II opioid drug., 164, cm,... Start Date: 03/13/21 Status: OrderedSEROquel 25 mg oral tablet 25 mg, 1, tablet, By Mouth, 2 times a day, PRN, # 60 tablet, Refills 2, Tot. Refills 2, Maintenance,Agitation, 03/21/21 17:43:00 EST, Route to Pharmacy Electronically, [id number], 164, cm, 12/21/20 14:12:00 EDT, Height Start Date: 03/21/21 Stop Date: 06/19/21 Status: OrderedZoloft 50 mg oral tablet 1 tablet = 50 mg, By Mouth, Daily, # 30 tablet, 5 Refills, Maintenance, 12/21/20 17:43:00 EDT, Tablet, [id number], Partial fill upon patient request if the prescription is for a schedule II opioid drug., 164, cm, 12/21/20 14:12:00 EDT, Height Start Date: 12/21/20 Status: Ordered Problem List Condition Effective Dates Status Health Status Informant Depression(Confirmed) Active Sickle cell anemia(Confirmed) Active Protein-calorie malnutrition, Active moderate(Confirmed) TACO (transfusion associated Active circulatory overload)(Confirmed)1 1The use of slow infusion rates, the administration of venkata-transfusion diuretics where not clinically contraindicated, and/or the transfusion of ???split units of PRBCs should be considered in any future hemotherapy interventions. Consult Transfusion Medicine Services if any questions. Social History Social History Type Response Smoking Status Former smoker, quit more rebel n 30 days ago entered on: 12/26/20 Sex
--- OUTSIDE RECORDS SUMMARY | 2021-12-15 06:03 | XMS_ITS | Continuity of Care Document ---
:1970 Author Organization [facility] Address [address] [place] [phone]- Care Team Providers Name Role Phone Lesia Cuevas MD Primary Care Physician Encounter [facility] Date(s): 01/30/20 - 02/01/[address] [address]- Encounter Diagnosis H/O pulmonary hypertension (Final) - 01/30/20 Acute sickle cell crisis (Final) - 01/30/20 Acute chest syndrome (Final) - 01/30/20 Discharge Disposition: A-D/C AMA Attending Physician: Susan Nieves MD Admitting Physician: Tarik Partida MD Referring Physician: Not on Staff, Referring MD Allergies, Adverse Reactions, Alerts Substance Reaction Severity Status Compazine tongue swelling Active Immunizations Given and Recorded Vaccine Date Status Refusal Reason influenza virus vaccine, inactivated 12/29/17 Given influenza virus vaccine, inactivated1 11/09/16 Given influenza virus vaccine, inactivated 02/22/16 Given influenza virus vaccine, inactivated 12/19/13 Given influenza virus vaccine, inactivated 03/03/13 Given influenza virus vaccine, inactivated 05/15/12 Given influenza virus vaccine, inactivated 12/07/10 Given influenza virus vaccine, inactivated 01/17/07 Given tetanus/diphtheria/pertussis, acel(Tdap) 11/25/16 Given pneumococcal 23-valent vaccine 12/07/10 Given Pneumococcal Vaccine (oldterm) 12/17/05 Given 1Result Comment: Afluria Medications albuterol 0.083% inhalation solution 3 mL = 2.5 mg, Inhalation, Every 6 hours, # 120 each, 11 Refills, Maintenance, 05/30/19 8:43:00 EDT,Solution, [id number], 160, cm, 08/16/18 11:38:00 EDT, Height, 56.7, kg, 08/16/18 11:38:00 EDT, Dry Weight Start Date: 05/30/19 Status: Orderedalbuterol CFC free 90 mcg/inh inhalation aerosol 2, puffs, Inhalation, 3 times a day, PRN, # 1 each, Refills 6, Tot. Refills 6, Maintenance, 05/19/2014:54:00 EDT, Aerosol, Route to Pharmacy Electronically, [id number], [facility]/pharmacy #[id number], 160, cm, 08/16/18 11:38:00 EDT, Hei... Start Date: 05/20/19 Status: OrderedAugmentin 875 mg-125 mg oral tablet 1 tablet, By Mouth, Every 12 hours, for 7 days, # 14 tablet, 0 Refills, Acute 02/08/20 14:07:00 EST,02/01/20 14:07:00 EST, [facility], Partial fill upon patient request if the prescription is for a schedule II opioid drug., 160, cm, ... Start Date: 02/01/20 Stop Date: 02/08/20 Status: Orderedazithromycin 500 mg oral tablet 1 tablet = 500 mg, By Mouth, Daily, for 2 days, # 2 tablet, 0 Refills, Acute 02/03/20 14:07:00 EST, 02/01/20 14:07:00 EST, Tablet, [facility], Partial fill upon patient request if the prescription is for a schedule II opioid drug., 160,... Start Date: 02/01/20 Stop Date: 02/03/20 Status: OrderedEnsure Ensure, See Instructions, # 90 each, Refills 11, Tot. Refills 11, Maintenance, Up to three cans daily for meal supplementation or replacement. Dx: food insecurity, E44.0, T73.0xxa, 05/30/19 8:21:00 EDT, Compound Start Date: 05/30/19 Status: Orderedfolic acid 1 mg oral tablet 1 mg, 1, tablet, By Mouth, Daily, # 30 tablet, Refills 5, Tot. Refills 5, Maintenance, 06/27/19 10:33:00 EDT, Route to Pharmacy Electronically, [facility]/pharmacy #[id number], 160, cm, 08/16/18 11:38:00 EDT, Height, 56.7, kg, 08/16/18 11:38:00 EDT, Dry Weight Start Date: 06/27/19 Stop Date: 12/24/19 Status: OrderedHYDROmorphone Inj 0.5 mg, Injection, IV Push Slowly, Every 3 hours, PRN for Pain , Severe, Routine, 01/30/20 20:53:00 EST Start Date: 01/30/20 Stop Date: 02/02/20 Status: DiscontinuedhydrOXYzine pamoate 25 mg oral capsule 1 capsule = 25 mg, By Mouth, 4 times a day, PRN as needed for anxiety, # 40 capsule, 11 Refills, Acute 02/23/20 8:43:00 EST, 05/30/19 8:43:00 EDT, Capsule, [facility]/pharmacy #[id number], 160, cm, 08/16/18 11:38:00 EDT, Height, 56.7, kg, 08/16/18 11:38:00 EDT, Start Date: 05/30/19 Stop Date: 02/23/20 Status: OrderedMiraLax oral powder for reconstitution = 17 Gm, By Mouth, Daily, PRN Constipation, dissolve in water before taking, # 527 Gm, 5 Refills, Maintenance, 03/17/18 15:35:34 EST, REC Powder, 17 Gm By Mouth Daily,PRN:Constipation,Instr:dissolve inwater before taking Start Date: 03/17/18 Status: Orderedmultivitamin Multiple Vitamins oral tablet 1 tablet, By Mouth, Daily, # 30 tablet, 0 Refills, Maintenance, 11/21/17 0:43:51 EDT, Tablet Start Date: 11/21/17 Status: OrderedNebulizer/Compressor See Instructions, # 1 each, Maintenance, Dx J45.909, 05/30/19 8:44:00 EDT, Compound Start Date: 05/30/19 Status: Orderedomeprazole 20 mg oral enteric coated capsule 1 capsule = 20 mg, By Mouth, Daily, # 90 capsule, 0 Refills, Maintenance, 08/24/19 9:24:00 EDT, EC Capsule, [id number], 160, cm, 08/16/18 11:38:00 EDT, Height, 56.7, kg, 08/16/18 11:38:00 EDT, Dry Weight Start Date: 08/24/19 Status: OrderedPercocet 7.5 mg-325 mg oral tablet 2 tablet, By Mouth, Every 4 hours, dx: sickle cell pain, # 84 tablet, 0 Refills, Maintenance, 02/01/20 9:55:00 EST, [facility], partial refill upon patient request, 2 tablet By Mouth Every 4 hours,x7 days,Instr:dx: sickle cell pain, 1... Start Date: 02/01/20 Stop Date: 02/08/20 Status: Orderedsertraline 25 mg oral tablet 1 tablet = 25 mg, By Mouth, Daily, Take 1 tablet daily for 2 weeks, then increase to 2 tablets daily, # 60 tablet, 11 Refills, Maintenance, 05/30/19 8:43:00 EDT, Tablet, [facility]/pharmacy #[id number], 160, cm, 08/16/18 11:38:00 EDT, Height, 56.7, kg, 08/16/18 11... Start Date: 05/30/19 Status: Ordered Problem List Condition Effective Dates Status Health Status Informant Depression(Confirmed) Active Sickle cell anemia(Confirmed) Active Protein-calorie malnutrition, Active moderate(Confirmed) N Care Management [facility] [phone](Confirmed) TACO (transfusion associated Active circulatory overload)(Confirmed)1 1The use of slow infusion rates, the administration of venkata-transfusion diuretics where not clinically contraindicated, and/or the transfusion of ???split units of PRBCs should be considered in any future hemotherapy interventions. Consult Transfusion Medicine Services if any questions. Results Radiology Reports Exam Date Time Procedure Performing Provider Status 01/31/20 1:49 PM Chest Portable [place] , Odalis; Auth (Verified) Notes:(Chest Portable) Reason For Exam: CoughRESULT: Chest Portable Chest Portable Reason: Hypoxia and extremity pain consistent with sickle crisis. COMPARISON: Most recent 01/30/2020 FINDINGS: LINES AND TUBES: Right jugular Port-A-Cath remains in good position. LUNGS AND PLEURA: Partial consolidation at both lung bases, increased at the left lateral CP angle. Mid and upper lungs are clear. No pulmonary edema. No significant effusion. No pneumothorax. HEART, MEDIASTINUM AND GARRETT: Unchanged mild cardiomegaly. Normal upper mediastinal and hilar contour. BONES AND SOFT TISSUES: No acute abnormality. IMPRESSION: Bibasilar opacity, slightly increased on the left and consistent with either atelectasis or pneumonia. WSN: [id number] Ordering Physician: Farhat Brizuela Dictated By: Rob Elliott MD Dictated Date/Time: 01/31/20 2:04 pm Reviewed By: Rob Elliott MD Signed By: Rob Elliott MD Signed Date/Time: 01/31/20 2:04 pm Transcribed By: PRASHANT Transcribed Date/Time: 01/31/20 2:00 pm Exam Date Time Procedure Performing Provider Status 01/30/20 5:03 PM Chest 2 Views Frontal and Lat Anselmo Hood; Auth (Verified) Notes:(Chest 2 Views Frontal and Lat) Reason For Exam: chronic hypoxia, sat 86 RA, pHTN?, no covid sx;Other:RESULT: Chest 2 Views Frontal and Lat Chest 2 Views Frontal and Lat CLINICAL INDICATION: Chest pain and shortness of breath. COMPARISON: Chest x-ray, 06/16/2018. FINDINGS: There is a right-sided Port-A-Cath with tip in the mid SVC. The cardiac silhouette is stable in size. Mediastinal and hilar contours are stable. There is patchybibasilar airspace disease, left greater than right. There is no pleural effusion or pneumothorax. No acute osseous abnormality is noted. 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 IMPRESSION: Patchy bibasilar airspace disease, left greater than right. This may represent atelectasis or pneumonia. WSN: [id number] Ordering Physician: Parish Lutz Dictated By: Nati Quinn MD Dictated Date/Time: 01/30/20 5:18 pm Reviewed By: Nati Quinn MD Signed By: Nati Quinn MD Signed Date/Time: 01/30/20 5:18 pm Transcribed By: PRASHANT Transcribed Date/Time: 01/30/20 5:14 pm Vital Signs Most recent to oldest 1 2 3 [Reference Range]: Oxygen Saturation [94-100 %] 95 % 99 % 99 % (02/01/20 1:24 PM) (02/01/20 11:25 AM) (02/01/20 4: 00 AM) Pulse Rate [55-90 bpm] 76 bpm 71 bpm 75 bpm (02/01/20 1:24 PM) (02/01/20 11:25 AM) (01/31/20 9: 16 PM) Blood Pressure [90-138/55-84 103/64 mm Hg 110/69 mm Hg 100 /54 mm Hg mm Hg] (02/01/20 1:24 PM) (02/01/20 11:25 AM) (02/01/20 4: 00 AM) Respiratory Rate [16-30 16 br/min 17 br/min 16 br/mi n br/min] (02/01/20 1:24 PM) (02/01/20 12:00 PM) (02/01/20 11 :25 AM) Temperature [96.8-100.4 98.3 DegF 98.2 DegF 99.3 Deg F DegF] (02/01/20 1:24 PM) (02/01/20 11:25 AM) (02/01/20 9: 19 AM) Liters per Minute 2 L/min 2 L/min 2 L/min (02/01/20 11:25 AM) (02/01/20 4:00 AM) (01/31/20 11 :00 PM) Mode of Delivery (Oxygen) Room air Nasal cannula Nasal cannula (02/01/20 1:24 PM) (02/01/20 11:25 AM) (02/01/20 4: 00 AM) Blood pressure sites Arm, right Arm, right Arm, left (02/01/20 1:24 PM) (02/01/20 11:25 AM) (01/31/20 5: 43 PM) Temperature Route Oral Oral Oral (02/01/20 1:24 PM) (02/01/20 11:25 AM) (02/01/20 9: 19 AM) Social History Social History Type Response Smoking Status Current every day smoker; Ty pe: Cigarettes entered on: 12/12/13 Sex
--- OUTSIDE RECORDS SUMMARY | 2021-12-15 06:03 | XMS_ITS | Continuity of Care Document ---
:1970 Author Organization [facility] Address [address] [place] [id number]- Care Team Providers Name Role Phone Lesia Cuevas MD Primary Care Physician Encounter [facility] [place] Date(s): 03/14/21 - 05/09/[address] [address] Attending Physician: Rikc Augustin MD Admitting Physician: Rick Augustin MD Referring Physician: Joyce Ireland MD Allergies, Adverse Reactions, Alerts Substance Reaction [...] Comment: normal saline diluent added lot number [id number] expires Result Comment: Afluria Medications Albuterol (Eqv-Proventil HFA) 90 mcg/inh inhalation aerosol 2 puffs, Inhalation, Every 6 hours, # 18 Gm, 6 Refills, Maintenance, 04/23/21 13:15:00 EST, [facility]/pharmacy #[id number], Partial fill upon patient request if the prescription is for a schedule II opioid drug., 164, cm, 04/22/21 13:37:00 EST, Height Start Date: 04/23/21 Status: Orderedalbuterol 0.083% inhalation solution 3 mL = 2.5 mg, Inhalation, Every 6 hours, PRN shortness of breath, For diagnosis of asthma ICD-10 code J45.998, # 100 each, 11 Refills, Maintenance, 04/22/21 14:09:00 EST, Solution, [facility]/pharmacy #1130,164, cm, 04/22/21 13:37:00 EST, Height Start Date: 04/22/21 Status: Orderedallopurinol 100 mg oral tablet 100 mg, 1, tablet, By Mouth, Daily, # 30 tablet, Refills 5, Tot. Refills 5, Maintenance, 12/21/20 17:44:00 EDT, Route to Pharmacy Electronically, [facility]/pharmacy #1130, 164, cm, 12/21/20 14:12:00 EDT, Height Start Date: 12/21/20 Status: Orderedapixaban 5 mg oral tablet 1 tablet = 5 mg, By Mouth, 2 times a day, # 60 tablet, 5 Refills, Maintenance, 12/21/20 17:44:00 EDT, Tablet, [facility]/pharmacy #1130, Partial fill upon patient request if the prescription is for a scheduleII opioid drug., 164, cm, 12/21/20 14:12:00 EDT,... Start Date: 12/21/20 Status: OrderedAtivan 1 mg oral tablet 1 tablet = 1 mg, By Mouth, 2 times a day, [facility] checked okay to fill on 03/08, # 56 tablet, 0 Refills, Maintenance, 03/08/21 18:22:00 EST, Tablet, [facility]/pharmacy #1130, 164, cm, 12/21/20 14:12:00 EDT, Height Start Date: 03/08/21 Status: OrderedBenadryl 25 mg oral capsule 1 capsule = 25 mg, By Mouth, 3 times a day, PRN for itching, # 100 capsule, 1 Refills, Maintenance, 03/14/21 18:27:00 EST, Capsule, [facility]/pharmacy #1130, Partial fill upon patient request if [...] 11 Refills, Maintenance, 12/23/20 22:41:00 EDT, Lotion, [facility]/pharmacy #1130, Partial fill upon patient request if the prescription isfor a schedule II opioid drug., 1 application Top... Start Date: 12/23/20 Status: Orderedfurosemide 20 mg oral tablet 1, tablet, By Mouth, Daily, # 30 tablet, Refills 0, Route to Pharmacy Electronically, [id number], 164, cm, 12/21/20 14:12:00 EDT, Height Start Date: 01/15/21 Status: Orderedgabapentin 300 mg oral capsule 300 mg, 1, capsule, By Mouth, 3 times a day, # 90 capsule, Refills 5, Tot. Refills 5, Maintenance, 04/22/21 17:04:00 EST, Route to Pharmacy Electronically, [facility]/pharmacy #1130, 164, cm, 04/22/21 13:37:00 EST, Height Start Date: 04/22/21 Status: Orderedhydroxyurea 500 mg oral capsule 1 capsule = 500 mg, By Mouth, 2 times a day, for 30 days, # 60 capsule, 5 Refills, Acute 06/19/21 17:53:00 EDT, 12/21/20 17:53:00 EDT, Capsule, [facility]/pharmacy #1130, Partial fill upon patient request if the prescription is for a schedule II opioid drug.... Start Date: 12/21/20 Stop Date: 06/19/21 Status: Orderedloratadine 10 mg oral tablet 10 mg, 1, tablet, By Mouth, Daily, # 90 tablet, Refills 11, Tot. Refills 11, Maintenance, 04/22/21 13:57:00 EST, Route to Pharmacy Electronically, [facility]/pharmacy #1130, 164, cm, 04/22/21 13:37:00 EST, Height Start Date: 04/22/21 Status: OrderedMiraLax oral powder for reconstitution = 17 Gm, By Mouth, Daily, PRN Constipation, dissolve in water before taking, # 527 Gm, 5 Refills, Maintenance, 03/17/18 15:35:34 EST, REC Powder, 17 Gm By Mouth Daily,PRN:Constipation,Instr:dissolve inwater before taking Start Date: 03/17/18 Status: Orderedmultivitamin Multiple Vitamins oral tablet 1 tablet, By Mouth, Daily, # 30 tablet, 11 Refills, Maintenance, 12/21/20 17:54:00 EDT, Tablet, [facility]/pharmacy #1130, Partial fill upon patient request if [...] 15:25:00 EST, Height Start Date: 03/15/21 Status: Orderednicotine 4 mg oral transmucosal gum 1 each = 4 mg, Chew, Every 2 hours, PRN as needed for smoking cessation, as directed on package labeling, # 160 each, 0 Refills, Maintenance, 04/22/21 14:12:00 EST, Gum, [facility]/pharmacy #1130, 164, cm, 04/22/21 13:37:00 EST, Height Start Date: 04/22/21 Status: OrderedNutritional Supplements See Instructions, # 120 [...] Refills, Maintenance, 12/21/20 17:43:00 EDT, CR Tablet, [facility], 164, cm, 12/21/20 14:12:00 EDT, Height Start Date: 12/21/20 Status: OrderedPercocet 7.5 mg-325 mg oral tablet 2 tablet, By Mouth, Every 4 hours, PRN Pain , Moderate, # 84 tablet, 0 Refills, Maintenance, 05/09/21 11:22:00 EDT, Tablet, [facility], Partial fill upon patient request if the prescription is for a schedule II opioid drug., 2 tablet By Mouth... Start Date: 05/09/21 Stop Date: 05/16/21 Status: OrderedPortable oxygen compressor Portable oxygen compressor, See Instructions, # 1 each, Refills 0, Tot. Refills 0, Maintenance, Use for supplemental oxygen as needed for shortness of breath. 5L through Nasal Cannula. 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 Start Date: 03/13/21 Status: OrderedSEROquel 25 mg oral tablet 25 mg, 1, tablet, By Mouth, 2 times a day, PRN, # 60 tablet, Refills 2, Tot. Refills 2, Maintenance,Agitation, 03/21/21 17:43:00 EST, Route to Pharmacy Electronically, [facility]/pharmacy #1130, 164, cm, 12/21/20 14:12:00 EDT, Height Start Date: 03/21/21 Stop Date: 06/19/21 Status: OrderedZoloft 50 mg oral tablet 1 tablet = 50 mg, By Mouth, Daily, # 30 tablet, 5 Refills, Maintenance, 12/21/20 17:43:00 EDT, Tablet, [facility]/pharmacy #1130, Partial fill upon patient request if [...]
--- OUTSIDE RECORDS SUMMARY | 2021-12-15 06:03 | XMS_ITS | Continuity of Care Document ---
:1970 Author Organization [facility] Address [address] [place] [address]- Care Team Providers Name Role Phone Lesia Cuevas MD Primary Care Physician Encounter [facility] Date(s): 11/29/20 - 12/29/[address] [address]- Allergies, Adverse Reactions, Alerts Substance Reaction Severity Status Compazine tongue swelling Active Immunizations Given and Recorded Vaccine Date Status Refusal Reason SARS-CoV-2 (COVID-19) mRNA BNT-162b2 vac 12/10/20 Given [...] Every 6 hours, PRN shortness of breath, # 100 each, 11 Refills, Maintenance, 12/21/20 17:44:00 EDT, Solution, [facility], 164, cm, 12/21/20 14:12:00 EDT, Height Start Date: 12/21/20 Status: Orderedallopurinol 100 mg oral tablet 100 mg, 1, tablet, By Mouth, Daily, # 30 tablet, Refills 5, Tot. Refills 5, Maintenance, 12/21/20 17:44:00 EDT, Route to Pharmacy Electronically, [facility]acy #1130, 164, cm, 12/21/20 14:12:00 EDT, Height Start Date: 12/21/20 Status: Orderedapixaban 5 mg oral tablet 1 tablet = 5 mg, By Mouth, 2 times a day, # 60 tablet, 5 Refills, Maintenance, 12/21/20 17:44:00 EDT, Tablet, [facility] #1130, Partial fill upon patient request if the prescription is for a scheduleII opioid drug., 164, cm, 12/21/20 14:12:00 EDT,... Start Date: 12/21/20 Status: OrderedAtivan 1 mg oral tablet 1 tablet = 1 mg, By Mouth, 2 times a day, PRN as needed for anxiety, for 14 days, Reviewed [facility] on 12/21 Use PRN for anxiety up to 2x/day., # 28 tablet, 0 Refills, Acute 01/04/21 17:44:00 EST, 12/21/20 17:44:00 EDT, [facility]... Start Date: 12/21/20 Stop Date: 01/04/21 Status: OrderedBenadryl 25 mg oral capsule 1 capsule = 25 mg, By Mouth, Every 6 hours, PRN as needed for itching, # 100 capsule, 1 Refills, Acute 01/23/21 9:00:00 EST, 12/21/20 17:53:00 EDT, Tablet, [facility]/pharmacy #1130, Partial fill upon patientrequest if the prescription is for a schedule II... Start Date: 12/21/20 Stop Date: 01/23/21 Status: OrderedCompression Stockings See Instructions, # 2 each, Maintenance, surgical, knee length 20-30 mm Hg Dx: Peripheral edema (R60.9), 12/21/20 17:13:00 EDT, Supply Start Date: 12/21/20 Status: OrderedEucerin Plus topical lotion 1 application, Topically, 2 times a day, PRN for dry skin, # 180 mL, 11 Refills, Maintenance, 12/23/20 22:41:00 EDT, Lotion, [facility], Partial fill upon patient request if the prescription isfor a schedule II opioid drug., 1 application Top... Start Date: 12/23/20 Status: Orderedgabapentin 100 mg oral capsule 100 mg, 1, capsule, By Mouth, 3 times a day, PRN, # 90 capsule, Refills 1, Tot. Refills 1, Maintenance, Pain , Moderate, 12/21/20 17:54:00 EDT, Route to [facility]ically, [facility], Partial fill upon patient request if the prescription... Start Date: 12/21/20 Stop Date: 02/19/21 Status: Orderedhydroxyurea 500 mg oral capsule 1 capsule = 500 mg, By Mouth, 2 times a day, for 30 days, # 60 capsule, 5 Refills, Acute 06/19/21 17:53:00 EDT, 12/21/20 17:53:00 EDT, Capsule, [facility]acy #1130, Partial fill upon patient request if the prescription is for a schedule II opioid drug.... Start Date: 12/21/20 Stop Date: 06/19/21 Status: OrderedhydrOXYzine hydrochloride 50 mg oral tablet 1 tablet = 50 mg, By Mouth, 3 times a day, PRN as needed for anxiety, for 30 days, # 90 tablet, 3 Refills, Acute 04/20/21 17:44:00 EST, 12/21/20 17:44:00 EDT, Tablet, [facility] #1130, Partial fill upon patient request if the prescription is for a s... Start Date: 12/21/20 Stop Date: 04/20/21 Status: OrderedLasix 20 mg oral tablet 20 mg, 1, tablet, By Mouth, Daily, # 30 tablet, Refills 0, Tot. Refills 0, Maintenance, 12/21/20 17:44:00 EDT, [facility], [facility], Partial fill upon patient request ifthe prescription is for a schedule II opioid drug... Start Date: 12/21/20 Stop Date: 01/20/21 Status: Orderedloratadine 10 mg oral tablet 10 mg, 1, tablet, By Mouth, Daily, # 30 tablet, Refills 2, Tot. Refills 2, Maintenance, 12/27/20 9:54:00 EDT, Route to Pharmacy Electronically, [facility]/pharmacy #1130, Partial fill upon patient request if the prescription is for a schedule II opioid drug.... Start Date: 12/27/20 Status: OrderedMiraLax oral powder for reconstitution = 17 Gm, By Mouth, Daily, PRN Constipation, dissolve in water before taking, # 527 Gm, 5 Refills, Maintenance, 03/17/18 15:35:34 EST, REC Powder, 17 Gm By Mouth Daily,PRN:Constipation,Instr:dissolve inwater before taking Start Date: 03/17/18 Status: Orderedmultivitamin Multiple Vitamins oral tablet 1 tablet, By Mouth, Daily, # 30 tablet, 11 Refills, Maintenance, 12/21/20 17:54:00 EDT, Tablet, [facility]1130, Partial fill upon patient request if the prescription is for a schedule II opioid drug., 1 tablet By Mouth Daily,x30 days, 164, cm, ... Start Date: 12/21/20 Stop Date: 12/16/21 Status: OrderedNebulizer Nebulizer, See Instructions, # 1 each, Refills 0, Tot. 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 Start Date: 12/21/20 Stop Date: 03/15/21 Status: OrderedNutritional Supplements See Instructions, # 120 each, Refills 11, Tot. Refills 11, Maintenance, Ensure (vanilla flavored), take up to 4 cans per day to supplement nutrition Dx: Post- covid syndrome (U09.9), failure to thrive (R62.7), 12/21/20 17:11:00 EDT, Supply Start Date: 12/21/20 Status: Orderedomeprazole 20 mg oral delayed release tablet 1 tablet = 20 mg, By Mouth, Daily, # 30 each, 5 Refills, Maintenance, 12/21/20 17:43:00 EDT, CR Tablet, [facility]/pharmacy #1130, 164, cm, 12/21/20 14:12:00 EDT, Height Start Date: 12/21/20 Status: OrderedPercocet 7.5 mg-325 mg oral tablet 2 tablet, By Mouth, Every 4 hours, PRN Pain , Moderate, # 84 tablet, 0 Refills, Maintenance, 12/27/20 16:02:00 EDT, Tablet, [facility]/pharmacy #1130, Partial fill upon patient request if the prescription is for a schedule II opioid drug., 2 tablet By Mouth... Start Date: 12/27/20 Stop Date: 01/03/21 Status: OrderedPortable oxygen compressor Portable oxygen compressor, [...] tablet, 0 Refills, Maintenance, 12/21/20 17:43:00EDT, Tablet, [facility]/pharmacy #1130, 164, cm, 12/21/20 14:12:00 EDT, Height Start Date: 12/21/20 Stop Date: 01/20/21 Status: OrderedSEROquel 25 mg oral tablet 25 mg, 1, tablet, By Mouth, 2 times a day, PRN, # 60 tablet, Refills 2, Tot. Refills 2, Maintenance,Agitation, 12/21/20 17:43:00 EDT, Route to Pharmacy Electronically, [facility]/pharmacy #1130, 164, cm, 12/21/20 14:12:00 EDT, Height Start Date: 12/21/20 Stop Date: 03/21/21 Status: OrderedZoloft 50 mg oral tablet 1 tablet = 50 mg, By Mouth, Daily, # 30 tablet, 5 Refills, Maintenance, 12/21/20 17:43:00 EDT, Tablet, [facility]/pharmacy #1130, Partial fill upon patient request if [...]
--- OUTSIDE RECORDS SUMMARY | 2021-12-15 06:03 | XMS_ITS | Continuity of Care Document ---
:1970 Author Organization [facility] Address [address] [place] [address]- Care Team Providers Name Role Phone Blake Recio MD Primary Care Physician Encounter [facility] Date(s): 04/15/19 - 05/18/[address] [address]- [facility] Attending Physician: Not on Staff, Attending MD Allergies, Adverse Reactions, Alerts Substance Reaction [...] 12/17/05 Given 1Result Comment: Afluria Medications albuterol 0.021% inhalation solution INHALE ONE 3ML VIAL VIA NEBULIZER TID Start Date: 11/21/17 Status: Orderedalbuterol CFC free 90 mcg/inh inhalation aerosol 2, puffs, Inhalation, 3 times a day, PRN, # 1 each, Refills 3, Tot. Refills 3, Maintenance, 199:26:11 EDT, Aerosol, Route to Pharmacy Electronically, [id number], [facility]/pharmacy #[id number], Compound Start Date: 06/08/18 Status: Ordereddocusate-senna 50 mg-187 mg oral tablet 2 tablet, By Mouth, Daily at bedtime, PRN Constipation, # 100 tablet, 6 Refills, Maintenance, 03/17/18 15:37:22 EST, Tablet, 2 tablet By Mouth Daily at bedtime,PRN:Constipation Start Date: 03/17/18 Status: OrderedEnsure Ensure, See Instructions, # 90 can, Refills 0, Tot. Refills 0, Maintenance, Up to three cans daily for meal supplementation or replacement. Dx: food insecurity., 04/05/18 13:21:03 EST, Compound Start Date: 04/05/18 Status: Orderedferrous gluconate 324 mg oral tablet 1 tablet = 324 mg, By Mouth, Daily, # 100 tablet, 0 Refills, Maintenance, 03/17/18 15:36:30 EST, Tablet Start Date: 03/17/18 Status: Orderedfolic acid 1 mg oral tablet 1 mg, 1, tablet, By Mouth, Daily, # 30 tablet, Refills 0, Tot. Refills 0, Maintenance, 03/07/18 8:37:07 EST, Route to Pharmacy Electronically, [id number], [facility] Start Date: 03/07/18 Stop Date: 04/06/18 Status: OrderedMiraLax oral powder for reconstitution = [...] 0:43:51 EDT, Tablet Start Date: 11/21/17 Status: Orderedmultivitamin Therapeutic Multiple Vitamins oral tablet 1 tablet, By Mouth, Daily, # 90 tablet, 3 Refills, Maintenance, 03/17/18 15:42:55 EST, Tablet, 1 tablet By Mouth Daily Start Date: 03/17/18 Status: Orderedomeprazole 20 mg oral enteric coated capsule 1 capsule = 20 mg, By Mouth, Daily, # 30 capsule, 2 Refills, Maintenance, 05/31/18 13:19:54 EDT, EC Capsule Start Date: 05/31/18 Status: OrderedPercocet 7.5/325 325 mg-7.5 mg oral tablet 2 tablet, By Mouth, Every 4 hours, PRN Pain , Severe, # 84 tablet, 0 Refills, Maintenance, 05/12/19 12:11:00 EDT, Tablet, [facility], Pt may partial fill upon request, 2 tablet By Mouth Every 4 hours,PRN:Pain , Severe, 160, cm, 08/16/... Start Date: 05/12/19 Status: Orderedsertraline 25 mg oral tablet 1 tablet = 25 mg, By Mouth, Daily, # 30 tablet, 0 Refills, Maintenance, 03/17/18 16:11:21 EST, Tablet Start Date: 03/17/18 Status: Ordered Problem List Condition Effective Dates Status Health Status Informant Sickle cell anemia(Confirmed) Active Protein-calorie malnutrition, Active moderate(Confirmed) Care coordination [facility] Care Active Coordinator Steff Mantilla, CC [phone](Confirmed) TACO (transfusion associated Active circulatory overload)(Confirmed)1 1The [...]
--- OUTSIDE RECORDS SUMMARY | 2021-12-15 06:03 | XMS_ITS | Continuity of Care Document ---
:1970 Author Organization [facility] Address [address] [place] [address]- Care Team Providers Name Role Phone Lesia Cuevas MD Primary Care Physician Encounter [facility] Date(s): 12/10/20 - 01/16/[address] [address]- Attending Physician: Darcy Levy MD Admitting Physician: Darcy Levy MD Referring Physician: Derick Chamberlain NP Allergies, Adverse Reactions, Alerts Substance Reaction Severity [...] Comment: normal saline diluent added lot number [id number] expires Result Comment: Afluria Medications albuterol 0.083% inhalation solution 3 mL = 2.5 mg, Inhalation, Every 6 hours, PRN shortness of breath, # 100 each, 11 Refills, Maintenance, 12/21/20 17:44:00 EDT, Solution, [facility]/pharmacy #[id number], 164, cm, 12/21/20 14:12:00 EDT, Height Start Date: 12/21/20 Status: Orderedallopurinol 100 mg oral tablet 100 mg, 1, tablet, By Mouth, Daily, # 30 tablet, Refills 5, Tot. Refills 5, Maintenance, 12/21/20 17:44:00 EDT, Route to Pharmacy Electronically, [facility]/pharmacy #[id number], 164, cm, 12/21/20 14:12:00 EDT, Height Start Date: 12/21/20 Status: Orderedapixaban 5 mg oral tablet 1 tablet = 5 mg, By Mouth, 2 times a day, # 60 tablet, 5 Refills, Maintenance, 12/21/20 17:44:00 EDT, Tablet, [facility]/pharmacy #[id number], Partial fill upon patient request if the prescription is for a scheduleII opioid drug., 164, cm, 12/21/20 14:12:00 EDT,... Start Date: 12/21/20 Status: OrderedAtivan 1 mg oral tablet 1 tablet = 1 mg, By Mouth, 2 times a day, [place] checked on 01/16, okay to fill on 01/16 or after, # 56 tablet, 0 Refills, Maintenance, 01/16/21 19:40:00 EST, Tablet, [facility]/pharmacy #1130, 164, cm, 12/21/20 14:12:00 EDT, Height Start Date: 01/16/21 Status: OrderedBenadryl 25 mg oral capsule 1 capsule = 25 mg, By Mouth, Every 6 hours, PRN as needed for itching, # 100 capsule, 1 Refills, Acute 01/23/21 9:00:00 EST, 12/21/20 17:53:00 EDT, Tablet, [facility]/pharmacy #[id number], Partial fill upon patientrequest if the [...] 11 Refills, Maintenance, 12/23/20 22:41:00 EDT, Lotion, [facility]/pharmacy #[id number], Partial fill upon patient request if the prescription isfor a schedule II opioid drug., 1 application Top... Start Date: 12/23/20 Status: Orderedfurosemide 20 mg oral tablet 1, tablet, By Mouth, Daily, # 30 tablet, Refills 0, Route to Pharmacy Electronically, [facility]ORE [id number], 164, cm, 12/21/20 14:12:00 EDT, Height Start [...] 06/19/21 17:53:00 EDT, 12/21/20 17:53:00 EDT, Capsule, [facility]/pharmacy [facility]1130, Partial fill upon patient request if the prescription is for a schedule II opioid drug.... Start Date: 12/21/20 Stop Date: 06/19/21 Status: OrderedhydrOXYzine hydrochloride 50 mg oral tablet 1 tablet = 50 mg, By Mouth, 3 times a day, PRN as needed for anxiety, for 30 days, # 90 tablet, 3 Refills, Acute 04/20/21 17:44:00 EST, 12/21/20 17:44:00 EDT, Tablet, [facility]acy [facility]30, Partial fill upon patient request if the prescription is for a s... Start Date: 12/21/20 Stop Date: 04/20/21 Status: Orderedloratadine 10 mg oral tablet 10 mg, 1, tablet, By Mouth, Daily, # 30 tablet, Refills 2, Tot. Refills 2, Maintenance, 12/27/20 9:54:00 EDT, Route to Pharmacy Electronically, [facility]/pharmacy #[id number], Partial fill upon patient request if [...] 11 Refills, Maintenance, 12/21/20 17:54:00 EDT, Tablet, [facility]/pharmacy #1130, Partial fill upon patient request if [...] 03/15/21 17:44:00 EST, 12/21/20 17:44:00 EDT, Gum, [facility]/pharmacy #1130, Partial rao... Start Date: 12/21/20 Stop [...] Every 4 hours, PRN Pain , Moderate, for 7 days, # 84 tablet, 0 Refills, Hard Stop 01/17/21 16:02:00 EST, 01/10/21 16:02:00 EST, Tablet, [facility], Partial fill upon patientrequest if the prescription is for a schedule II... Start Date: 01/10/21 Stop Date: 01/17/21 Status: OrderedPercocet 7.5 mg-325 mg oral tablet 2 tablet, By Mouth, Every 4 hours, PRN Pain , Moderate, # 84 tablet, 0 Refills, Maintenance, 01/17/21 16:02:00 EST, Tablet, [facility], Partial fill upon patient request if the prescription is for a schedule II opioid drug., 2 tablet By Mouth... Start Date: 01/17/21 Stop Date: 01/24/21 Status: OrderedPortable oxygen compressor Portable oxygen compressor, [...] 12/21/20 17:43:00 EDT, Route to Pharmacy Electronically, [facility]/pharmacy #1130, 164, cm, 12/21/20 14:12:00 EDT, Height Start Date: 12/21/20 Stop Date: 03/21/21 Status: OrderedZoloft 50 mg oral tablet 1 tablet = 50 mg, By Mouth, Daily, # 30 tablet, 5 Refills, Maintenance, 12/21/20 17:43:00 EDT, Tablet, [facility]/pharmacy #1130, Partial fill upon patient request if [...]
--- OUTSIDE RECORDS SUMMARY | 2021-12-15 06:03 | XMS_ITS | Continuity of Care Document ---
:1970 Author Organization [facility] Address [address] [place] [address]- Care Team Providers Name Role Phone Lesia Cuevas MD Primary Care Physician [place] [facility] Date(s): 02/02/21 - 04/25/[address] [address]- Attending Physician: Not on Staff, Attending MD [...] Comment: normal saline diluent added lot number [id number] expires Result Comment: Afluria Medications Albuterol (Eqv-Proventil HFA) 90 mcg/inh inhalation aerosol 2 puffs, Inhalation, Every 6 hours, # 18 Gm, 6 Refills, Maintenance, 04/23/21 13:15:00 EST, [facility]/pharmacy #[id number], Partial fill upon patient request if the prescription is for a schedule II opioid drug., 164, cm, 04/22/21 13:37:00 EST, Height Start Date: 04/23/21 Status: Orderedalbuterol 0.083% inhalation solution 3 mL = 2.5 mg, Inhalation, Every 6 hours, PRN shortness of breath, For diagnosis of asthma ICD-10 code J45.998, # 100 each, 11 Refills, Maintenance, 04/22/21 14:09:00 EST, Solution, [facility]/pharmacy #1130,164, cm, 04/22/21 13:37:00 EST, Height Start Date: 04/22/21 Status: Orderedallopurinol 100 mg oral tablet 100 mg, 1, tablet, By Mouth, Daily, # 30 tablet, Refills 5, Tot. Refills 5, Maintenance, 12/21/20 17:44:00 EDT, Route to Pharmacy Electronically, [facility]/pharmacy #1130, 164, cm, 12/21/20 14:12:00 EDT, Height Start Date: 12/21/20 Status: Orderedapixaban 5 mg oral tablet 1 tablet = 5 mg, By Mouth, 2 times a day, # 60 tablet, 5 Refills, Maintenance, 12/21/20 17:44:00 EDT, Tablet, [facility]/pharmacy #1130, Partial fill upon patient request if the prescription is for a scheduleII opioid drug., 164, cm, 12/21/20 14:12:00 EDT,... Start Date: 12/21/20 Status: OrderedAtivan 1 mg oral tablet 1 tablet = 1 mg, By Mouth, 2 times a day, [facility] checked okay to fill on 03/08, # 56 tablet, 0 Refills, Maintenance, 03/08/21 18:22:00 EST, Tablet, [facility]/pharmacy #1130, 164, cm, 12/21/20 14:12:00 EDT, Height Start Date: 03/08/21 Status: OrderedBenadryl 25 mg oral capsule 1 capsule = 25 mg, By Mouth, 3 times a day, PRN for itching, # 100 capsule, 1 Refills, Maintenance, 03/14/21 18:27:00 EST, Capsule, [facility], Partial fill upon patient [...] tablet, Refills 0, Route to Pharmacy Electronically, [id number], 164, cm, 12/21/20 14:12:00 EDT, Height Start Date: 01/15/21 Status: Orderedgabapentin 300 mg oral capsule 300 mg, 1, capsule, By Mouth, 3 times a day, # 90 capsule, Refills 5, Tot. Refills 5, Maintenance, 04/22/21 17:04:00 EST, Route to Pharmacy Electronically, [facility]/pharmacy #1130, 164, cm, 04/22/21 13:37:00 EST, Height [...] 04/22/21 13:57:00 EST, Route to Pharmacy Electronically, [facility]/pharmacy #1130, 164, cm, 04/22/21 13:37:00 EST, Height [...] 11 Refills, Maintenance, 12/21/20 17:54:00 EDT, Tablet, [facility]/pharmacy #1130, Partial fill upon patient request if the prescription is for a schedule II opioid drug., 1 tablet By Mouth Daily,x30 days, 164, cm, 10/... Start Date: 12/21/20 Stop Date: 12/16/21 Status: [...] 0 Refills, Maintenance, 04/22/21 14:12:00 EST, Gum, [facility]/pharmacy #1130, 164, cm, 04/22/21 13:37:00 EST, Height [...] Refills, Maintenance, 12/21/20 17:43:00 EDT, CR Tablet, [facility]/pharmacy #1130, 164, cm, 12/21/20 14:12:00 EDT, Height Start Date: 12/21/20 Status: OrderedPercocet 7.5 mg-325 mg oral tablet 2 tablet, By Mouth, Every 4 hours, PRN Pain , Moderate, # 84 tablet, 0 Refills, Maintenance, 04/25/21 11:22:00 EST, Tablet, [facility], Partial fill upon patient request if the prescription is for a schedule II opioid drug., 2 tablet By Mouth... Start Date: 04/25/21 Stop Date: 05/02/21 Status: OrderedPortable oxygen compressor Portable oxygen compressor, [...] tablet, 0 Refills, Maintenance, 12/21/20 17:43:00EDT, Tablet, [facility]/pharmacy #1130, 164, cm, 12/21/20 14:12:00 EDT, Height [...] 03/21/21 17:43:00 EST, Route to Pharmacy Electronically, [facility]/pharmacy #1130, 164, cm, 12/21/20 14:12:00 EDT, Height Start Date: 03/21/21 Stop Date: 06/19/21 Status: OrderedZoloft 50 mg oral tablet 1 tablet = 50 mg, By Mouth, Daily, # 30 tablet, 5 Refills, Maintenance, 12/21/20 17:43:00 EDT, Tablet, [facility]/pharmacy #1130, Partial fill upon patient request if [...]
--- OUTSIDE RECORDS SUMMARY | 2021-12-15 06:03 | XMS_ITS | Continuity of Care Document ---
:1970 Author Organization [facility] Address [address] [place] [address]- Care Team Providers Name Role Phone Lesia Cuevas MD Primary Care Physician Encounter [facility] Date(s): 01/04/21 - 02/03/[address] [address] Allergies, Adverse Reactions, Alerts Substance Reaction Severity [...] Comment: normal saline diluent added lot number [id number] expires Result Comment: Afluria Medications albuterol 0.083% inhalation solution 3 mL = 2.5 mg, Inhalation, Every 6 hours, PRN shortness of breath, # 100 each, 11 Refills, Maintenance, 12/21/20 17:44:00 EDT, Solution, [facility]/pharmacy #1130, 164, cm, 12/21/20 14:12:00 EDT, Height Start Date: 12/21/20 Status: Orderedallopurinol 100 mg oral tablet 100 mg, 1, tablet, By Mouth, Daily, # 30 tablet, Refills 5, Tot. Refills 5, Maintenance, 12/21/20 17:44:00 EDT, Route to Pharmacy Electronically, [facility]/pharmacy #1130, 164, cm, 12/21/20 14:12:00 EDT, Height Start Date: 12/21/20 Status: Orderedapixaban 5 mg oral tablet 1 tablet = 5 mg, By Mouth, 2 times a day, # 60 tablet, 5 Refills, Maintenance, 12/21/20 17:44:00 EDT, Tablet, [facility]/pharmacy #1130, Partial fill upon patient request if the prescription is for a scheduleII opioid drug., 164, cm, 12/21/20 14:12:00 EDT,... Start Date: 12/21/20 Status: OrderedAtivan 1 mg oral tablet 1 tablet = 1 mg, By Mouth, 2 times a day, [facility] checked on 01/16, okay to fill on 01/16 or after, # 56 tablet, 0 Refills, Maintenance, 01/16/21 19:40:00 EST, Tablet, [facility]/pharmacy #1130, 164, cm, 12/21/20 14:12:00 EDT, Height Start Date: 01/16/21 Status: OrderedCompression Stockings See Instructions, # 2 each, Maintenance, surgical, knee length 20-30 mm Hg Dx: Peripheral edema (R60.9), 12/21/20 17:13:00 EDT, Supply Start Date: 12/21/20 Status: OrderedEucerin Plus topical lotion 1 application, Topically, 2 times a day, PRN for dry skin, # 180 mL, 11 Refills, Maintenance, 12/23/20 22:41:00 EDT, Lotion, [facility]/pharmacy #1130, Partial fill upon patient request if the prescription isfor a schedule II opioid drug., 1 application Top... Start Date: 12/23/20 Status: Orderedfurosemide 20 mg oral tablet 1, tablet, By Mouth, Daily, # 30 tablet, Refills 0, Route to Pharmacy Electronically, [facility]ORE [id number], 164, cm, 12/21/20 14:12:00 EDT, Height Start Date: 01/15/21 Status: Orderedgabapentin 100 mg oral capsule 100 mg, 1, capsule, By Mouth, 3 times a day, PRN, # 90 capsule, Refills 1, Tot. Refills 1, Maintenance, Pain , Moderate, 12/21/20 17:54:00 EDT, Route to Pharmacy Electronically, [facility]/pharmacy #1130, Partial fill upon patient request if the prescription... Start Date: 12/21/20 Stop Date: 02/19/21 Status: Orderedhydroxyurea 500 mg oral capsule 1 capsule = 500 mg, By Mouth, 2 times a day, for 30 days, # 60 capsule, 5 Refills, Acute 06/19/21 17:53:00 EDT, 12/21/20 17:53:00 EDT, Capsule, [facility]/pharmacy #1130, Partial fill upon patient request if the prescription is for a schedule II opioid drug.... Start Date: 12/21/20 Stop Date: 06/19/21 Status: OrderedhydrOXYzine hydrochloride 50 mg oral tablet 1 tablet = 50 mg, By Mouth, 3 times a day, PRN as needed for anxiety, for 30 days, # 90 tablet, 3 Refills, Acute 04/20/21 17:44:00 EST, 12/21/20 17:44:00 EDT, Tablet, [facility]/pharmacy #1130, Partial fill upon patient request if the prescription is for a s... Start Date: 12/21/20 Stop Date: 04/20/21 Status: Orderedloratadine 10 mg oral tablet 10 mg, 1, tablet, By Mouth, Daily, # 30 tablet, Refills 2, Tot. Refills 2, Maintenance, 12/27/20 9:54:00 EDT, Route to Pharmacy Electronically, [id number], [...] 11 Refills, Maintenance, 12/21/20 17:54:00 EDT, Tablet, [facility]/pharmacy #1130, Partial fill upon patient request if [...] 03/15/21 17:44:00 EST, 12/21/20 17:44:00 EDT, Gum, [facility]/pharmacy #1130, Partial rao... Start Date: 12/21/20 Stop [...] Moderate, # 84 tablet, 0 Refills, Maintenance, 01/31/21 16:02:00 EST, Tablet, [facility]/pharmacy #1130, Partial fill upon patient request if the prescription is for a schedule II opioid drug., 2 tablet By Mouth... Start Date: 01/31/21 Stop Date: 02/07/21 Status: OrderedPortable oxygen compressor Portable oxygen compressor, [...] tablet, 0 Refills, Maintenance, 12/21/20 17:43:00EDT, Tablet, [facility]/pharmacy #1130, 164, cm, 12/21/20 14:12:00 EDT, Height Start Date: 12/21/20 Stop Date: 01/20/21 Status: OrderedSEROquel 25 mg oral tablet 25 mg, 1, tablet, By Mouth, 2 times a day, PRN, # 60 tablet, Refills 2, Tot. Refills 2, Maintenance,Agitation, 12/21/20 17:43:00 EDT, Route to Pharmacy Electronically, [facility]/pharmacy #1130, 164, cm, 12/21/20 14:12:00 EDT, Height [...]
--- OUTSIDE RECORDS SUMMARY | 2021-12-15 06:03 | XMS_ITS | Continuity of Care Document ---
:1970 Author Organization [facility] Address [address] [place] [address]- Care Team Providers Name Role Phone Blake Recio MD Primary Care Physician Encounter [facility] Date(s): 05/27/19 - 06/06/[address] [address]- [facility] Attending Physician: Jamaica Aguero Admitting Physician: Jamaica Aguero Referring Physician: AdmJamaica cheatham Allergies, Adverse Reactions, Alerts Substance Reaction Severity [...] NEBULIZER TID Start Date: 11/21/17 Status: Orderedalbuterol 0.083% inhalation solution 3 mL [...] 05/19/2014:54:00 EDT, Aerosol, Route to Pharmacy Electronically, [id number], [facility]/pharmacy #[id number], 160, cm, 08/16/18 11:38:00 EDT, Hei... Start Date: 05/20/19 Status: Ordereddocusate-senna 50 mg-187 mg oral tablet [...] 8:21:00 EDT, Compound Start Date: 05/30/19 Status: Orderedferrous gluconate 324 mg oral tablet 1 tablet = 324 mg, By Mouth, Daily, # 100 tablet, 0 Refills, Maintenance, 03/17/18 15:36:30 EST, Tablet Start Date: 03/17/18 Status: Orderedfolic acid 1 mg oral tablet 1 mg, 1, tablet, By Mouth, Daily, # 30 tablet, Refills 0, Tot. Refills 0, Maintenance, 05/30/19 8:43:00 EDT, Route to Pharmacy Electronically, [facility]/pharmacy #[id number], 160, cm, 08/16/18 11:38:00 EDT, Height, 56.7, kg, 08/16/18 11:38:00 EDT, Dry Weight Start Date: 05/30/19 Stop Date: 06/29/19 Status: OrderedhydrOXYzine pamoate 25 mg oral capsule 1 capsule = 25 mg, By Mouth, 4 times a day, PRN as needed for anxiety, # 40 capsule, 11 Refills, Acute 02/23/20 8:43:00 EST, 05/30/19 8:43:00 EDT, Capsule, [facility]/pharmacy #207, 160, cm, 08/16/18 11:38:00 EDT, Height, 56.7, kg, 08/16/18 11:38:00 EDT, . Start Date: 05/30/19 Stop Date: 02/23/20 Status: [...] tablet, By Mouth, Daily, # 90 tablet, 11 Refills, Maintenance, 05/30/19 8:43:00 EDT, Tablet, [facility]/pharmacy #[id number], 1 tablet By Mouth Daily, 160, cm, 08/16/18 11:38:00 EDT, Height, 56.7, kg, 08/16/18 11:38:00 EDT, Dry Weight Start Date: 05/30/19 Status: OrderedNebulizer/Compressor See Instructions, # 1 each, Maintenance, Dx J45.909, 05/30/19 8:44:00 EDT, Compound Start Date: 05/30/19 Status: Orderedomeprazole 20 mg oral enteric coated capsule 1 capsule = 20 mg, By Mouth, Daily, # 30 capsule, 2 Refills, Maintenance, 05/30/19 8:43:00 EDT, EC Capsule, [facility]/pharmacy #207, 160, cm, 08/16/18 11:38:00 EDT, Height, 56.7, kg, 08/16/18 11:38:00 EDT, Dry Weight Start Date: 05/30/19 Status: OrderedPercocet 7.5 mg-325 mg oral tablet 2 tablet, By Mouth, Every 4 hours, # 84 tablet, 0 Refills, Maintenance, 06/03/19 10:46:00 EDT, [facility], 2 tablet By Mouth Every 4 hours, 160, cm, 08/16/18 11:38:00 EDT, Height, 56.7, kg, 08/16/18 11:38:00 EDT, Dry Weight Start Date: 06/03/19 Status: OrderedPercocet 7.5/325 325 mg-7.5 mg oral tablet 2 tablet, By Mouth, Every 4 hours, PRN Pain , Severe, # 84 tablet, 0 Refills, Maintenance, 05/12/19 12:11:00 EDT, Tablet, [facility], Pt may partial fill upon request, 2 tablet By Mouth Every 4 hours,PRN:Pain , Severe, 160, cm, 08/16/... Start Date: 05/12/19 Status: OrderedPercocet 7.5/325 325 mg-7.5 mg oral tablet 2 tablet, By Mouth, Every 4 hours, PRN for pain, # 84 tablet, 0 Refills, Maintenance, 05/19/19 16:03:00 EDT, Tablet, [facility], Partial fill upon patient request, 2 tablet By Mouth Every 4 hours,PRN:for pain, 160, cm, 08/16/18 11:38:... Start Date: 05/19/19 Status: Orderedsertraline 25 mg oral tablet 1 tablet = 25 mg, By Mouth, Daily, Take 1 tablet daily for 2 weeks, then increase to 2 tablets daily, # 60 tablet, 11 Refills, Maintenance, 05/30/19 8:43:00 EDT, Tablet, [facility]/pharmacy #1, 160, cm, 08/16/18 11:38:00 EDT, Height, 56.7, kg, 08/16/18 11... Start Date: 05/30/19 Status: Ordered Problem List Condition Effective Dates Status Health Status Informant Sickle cell anemia(Confirmed) Active Protein-calorie malnutrition, Active moderate(Confirmed) [facility] Care [facility], Saranya Diane [phone](Confirmed) TACO (transfusion associated Active circulatory overload)(Confirmed)1 1The [...]
--- OUTSIDE RECORDS SUMMARY | 2021-12-15 06:03 | XMS_ITS | Continuity of Care Document ---
:1970 Author Organization [facility] Address [address] [place] [address]- Care Team Providers Name Role Phone Lesia Cuevas MD Primary Care Physician Encounter [facility] Date(s): 11/01/20 - 12/01/[address] [address]- Allergies, Adverse Reactions, Alerts Substance Reaction Severity [...] 11 Refills, Maintenance, 05/30/19 8:43:00 EDT,Solution, [id number], 160, cm, 08/16/18 11:38:00 EDT, Height, 56.7, kg, 08/16/18 11:38:00 EDT, Dry Weight Start Date: 05/30/19 Status: Orderedallopurinol 100 mg oral tablet TK 1 T PO QD Start Date: 08/03/20 Status: Orderedallopurinol 100 mg oral tablet 100 mg, 1, tablet, By Mouth, Daily, # 30 tablet, Refills 0, Tot. Refills 0, Maintenance, 11/26/20 10:09:00 EDT, Route to Pharmacy Electronically, [facility], Partial fill upon patient request if the prescription is for a schedule II o... Start Date: 11/26/20 Status: OrderedAmmonium Lactate 12% Topical 1 applicator, Topically, 3 times a day, 0 Refills, Maintenance, Cream Start Date: 08/17/20 Status: Orderedapixaban = 5 mg, G Tube, 2 times a day, 0 Refills, Maintenance, 08/17/20 14:39:00 EDT, Tablet, Partial fill upon patient request if the prescription is for a schedule II opioid drug. Start Date: 08/17/20 Status: Orderedapixaban 5 mg oral tablet 1 tablet = 5 mg, By Mouth, 2 times a day, # 60 tablet, 0 Refills, Maintenance, 11/02/20 19:28:00 EDT, Tablet, [facility]/pharmacy #[id number], Partial fill upon patient request if the prescription is for a scheduleII opioid drug., 164, cm, 10/11/20 15:22:00 EDT,... Start Date: 11/02/20 Status: OrderedBenadryl 25 mg oral capsule 1 capsule = 25 mg, By Mouth, Every 6 hours, PRN as needed for itching, 0 Refills, Maintenance, 07/09/20 23:18:00 EDT, Partial fill upon patient request if the prescription is for a schedule II opioid drug. Start Date: 07/09/20 Status: Ordereddocusate sodium 150 mg/15 ml oral liquid 10 mL = 100 mg, PEG, 2 times a day, 0 Refills, Maintenance, 08/17/20 14:39:00 EDT, Liquid, Partial fill upon patient request if the prescription is for a schedule II opioid drug. Start Date: 08/17/20 Status: Orderedfolic acid 1 mg oral tablet 1 mg, 1, tablet, By Mouth, Daily, # 30 tablet, Refills 5, Tot. Refills 5, Maintenance, 06/27/19 10:33:00 EDT, Route to Pharmacy Electronically, [facility]/pharmacy #[id number], 160, cm, 08/16/18 11:38:00 EDT, Height, 56.7, kg, 08/16/18 11:38:00 EDT, Dry Weight Start Date: 06/27/19 Stop Date: 12/24/19 Status: Orderedhydroxyurea 500 mg oral capsule 1 capsule = 500 mg, By Mouth, 2 times a day, 0 Refills, Maintenance, 07/09/20 23:15:00 EDT, Partial fill upon patient request if the prescription is for a schedule II opioid drug. Start Date: 07/09/20 Status: OrderedhydrOXYzine hydrochloride 50 mg oral tablet 1 tablet = 50 mg, By Mouth, 3 times a day, PRN as needed for anxiety, 0 Refills, Maintenance, 07/09/20 23:18:00 EDT, Partial fill upon patient request if the prescription is for a schedule II opioid drug. Start Date: 07/09/20 Status: OrderedLasix 20 mg oral tablet 20 mg, 1, tablet, By Mouth, Daily, # 7 tablet, Refills 0, Tot. Refills 0, Maintenance, 11/20/20 15:45:00 EDT, Route to Pharmacy Electronically, [facility]/pharmacy #[id number], Partial fill upon patient request if the prescription is for a schedule II opioid drug.... Start Date: 11/20/20 Stop Date: 11/27/20 Status: OrderedMineral Oil /Petrolatum Ophth 1 applicator, Eyes, Both, Every 4 hours, PRN Dry Eyes, 0 Refills, Maintenance, 08/17/20 14:39:00 EDT, Ophth Ointment, Partial fill upon patient request if the prescription is for a schedule II opioid drug. Start Date: 08/17/20 Status: OrderedMiraLax oral powder for reconstitution = [...] 0:43:51 EDT, Tablet Start Date: 11/21/17 Status: OrderedPancrelipase ER Capsule 1 each = 10,500 units, G Tube, Every 5 minutes, PRN Other, Clogged Feeding Tube, 0 Refills, Maintenance, 08/17/20 14:39:00 EDT, ER Capsule, Partial fill upon patient request if the prescription is for a schedule II opioid drug. Start Date: 08/17/20 Status: OrderedPercocet 7.5 mg-325 mg oral tablet 2 tablet, By Mouth, Every 4 hours, PRN Pain , Moderate, # 84 tablet, 0 Refills, Maintenance, 11/29/20 16:02:00 EDT, Tablet, [facility], Partial fill upon patient request if the prescription is for a schedule II opioid drug., 2 tablet... Start Date: 11/29/20 Stop Date: 12/06/20 Status: OrderedpredniSONE 10 mg oral tablet 2 tablet = 20 mg, By Mouth, Daily, with food, # 14 tablet, 0 Refills, Maintenance, 11/02/20 19:26:00EDT, Tablet, [facility]/pharmacy #[id number], Partial fill upon patient request if the prescription is for a schedule II opioid drug., 164, cm, 10/11/20 15:22:00 E... Start Date: 11/02/20 Stop Date: 11/09/20 Status: OrderedSEROquel 25 mg oral tablet 25 mg, 1, tablet, PEG, 2 times a day, PRN, Refills 0, Maintenance, Agitation, 08/17/20 14:39:00 EDT,Partial fill upon patient request if the prescription is for a schedule II opioid drug. Start Date: 08/17/20 Status: OrderedZoloft 50 mg oral tablet 1 tablet = 50 mg, By Mouth, Daily, # 30 tablet, 0 Refills, Maintenance, 07/09/20 23:17:00 EDT, Tablet, Partial fill upon patient request if the prescription is for a schedule II opioid drug. Start Date: 07/09/20 Status: Ordered Problem List Condition Effective Dates [...] History Social History Type Response Smoking Status 5-9 cigarettes (between 1/4 to 1/2 pack)/day in last 30 days; Patient wants NRT during admission Yes; Other: nicotine gum; entered on: 07/09/20 Sex
--- OUTSIDE RECORDS SUMMARY | 2021-12-15 06:03 | XMS_ITS | Continuity of Care Document ---
:1970 Author Organization [facility] Address [address] [place] [address]- Care Team Providers Name Role Phone Lesia Cuevas MD Primary Care Physician Encounter [facility] Date(s): 12/20/20 - 01/19/[address] [address]- Allergies, Adverse Reactions, Alerts Substance Reaction Severity [...] Comment: normal saline diluent added lot number [id number] expires Result Comment: Afluria Medications albuterol 0.083% inhalation solution 3 mL = 2.5 mg, Inhalation, Every 6 hours, PRN shortness of breath, # 100 each, 11 Refills, Maintenance, 12/21/20 17:44:00 EDT, Solution, [facility]/pharmacy #[id number], 164, cm, 12/21/20 14:12:00 EDT, Height Start Date: 12/21/20 Status: Orderedallopurinol 100 mg oral tablet 100 mg, 1, tablet, By Mouth, Daily, # 30 tablet, Refills 5, Tot. Refills 5, Maintenance, 12/21/20 17:44:00 EDT, Route to Pharmacy Electronically, [facility]/pharmacy #[id number], 164, cm, 12/21/20 14:12:00 EDT, Height Start Date: 12/21/20 Status: Orderedapixaban 5 mg oral tablet 1 tablet = 5 mg, By Mouth, 2 times a day, # 60 tablet, 5 Refills, Maintenance, 12/21/20 17:44:00 EDT, Tablet, [facility]/pharmacy #[id number], Partial fill upon patient request if the prescription is for a scheduleII opioid drug., 164, cm, 12/21/20 14:12:00 EDT,... Start Date: 12/21/20 Status: OrderedAtivan 1 mg oral tablet 1 tablet = 1 mg, By Mouth, 2 times a day, [place] checked on 01/16, okay to fill on 01/16 or after, # 56 tablet, 0 Refills, Maintenance, 01/16/21 19:40:00 EST, Tablet, [facility]/pharmacy #[id number], 164, cm, 12/21/20 14:12:00 EDT, Height Start Date: 01/16/21 Status: OrderedBenadryl 25 mg oral capsule 1 capsule = 25 mg, By Mouth, Every 6 hours, PRN as needed for itching, # 100 capsule, 1 Refills, Acute 01/23/21 9:00:00 EST, 12/21/20 17:53:00 EDT, Tablet, [facility]/pharmacy #[id number], Partial fill upon patientrequest if [...] 11 Refills, Maintenance, 12/23/20 22:41:00 EDT, Lotion, [facility]/pharmacy #[id number], Partial fill upon patient request if the prescription isfor a schedule II opioid drug., 1 application Top... Start Date: 12/23/20 Status: Orderedfurosemide 20 mg oral tablet 1, tablet, By Mouth, Daily, # 30 tablet, Refills 0, [facility] to [facility]ically, [id number], 164, cm, 12/21/20 14:12:00 EDT, Height Start [...] 12/27/20 9:54:00 EDT, Route to Pharmacy Electronically, [facility]/pharmacy #[id number], Partial fill upon patient request [...] 11 Refills, Maintenance, 12/21/20 17:54:00 EDT, Tablet, [facility]/pharmacy #[id number], Partial fill upon patient request [...] 03/15/21 17:44:00 EST, 12/21/20 17:44:00 EDT, Gum, [facility]/pharmacy #[id number], Partial rao... Start Date: 12/21/20 [...] Refills, Maintenance, 12/21/20 17:43:00 EDT, CR Tablet, [facility]/pharmacy #[id number], 164, cm, 12/21/20 14:12:00 EDT, Height Start Date: 12/21/20 Status: OrderedPercocet 7.5 mg-325 mg oral tablet 2 tablet, By Mouth, Every 4 hours, PRN Pain , Moderate, # 84 tablet, 0 Refills, Maintenance, 01/17/21 16:02:00 EST, Tablet, [facility]/pharmacy #[id number], Partial fill upon patient request [...] tablet, 0 Refills, Maintenance, 12/21/20 17:43:00EDT, Tablet, [facility]/pharmacy #[id number], 164, cm, 12/21/20 14:12:00 EDT, Height Start Date: 12/21/20 Stop Date: 01/20/21 Status: OrderedSEROquel 25 mg oral tablet 25 mg, 1, tablet, By Mouth, 2 times a day, PRN, # 60 tablet, Refills 2, Tot. Refills 2, Maintenance,Agitation, 12/21/20 17:43:00 EDT, Route to Pharmacy Electronically, [facility]/pharmacy #[id number], 164, cm, 12/21/20 14:12:00 EDT, Height Start Date: 12/21/20 Stop Date: 03/21/21 Status: OrderedZoloft 50 mg oral tablet 1 tablet = 50 mg, By Mouth, Daily, # 30 tablet, 5 Refills, Maintenance, 12/21/20 17:43:00 EDT, Tablet, [facility]/pharmacy #[id number], Partial fill upon patient request [...]
--- OUTSIDE RECORDS SUMMARY | 2021-12-15 06:03 | XMS_ITS | Continuity of Care Document ---
:1970 Author Organization [facility] Address [address] [place] [address]- Care Team Providers Name Role Phone Lesia Cuevas MD Primary Care Physician Encounter [facility] Date(s): 01/18/20 - 02/17/[address] [address]- Attending Physician: Jamaica Aguero Admitting Physician: Jamaica Aguero Referring Physician: AdmtrJamaica Allergies, Adverse Reactions, Alerts Substance Reaction Severity [...] 05/19/2014:54:00 EDT, Aerosol, Route to Pharmacy Electronically, [id number], [facility]/pharmacy #[id number], 160, cm, 08/16/18 11:38:00 EDT, Hei... Start Date: 05/20/19 Status: OrderedEnsure Ensure, See Instructions, # 90 [...] 06/27/19 10:33:00 EDT, Route to Pharmacy Electronically, [facility]/pharmacy #[id number], 160, cm, 08/16/18 11:38:00 EDT, Height, 56.7, kg, 08/16/18 11:38:00 EDT, Dry Weight Start Date: 06/27/19 Stop Date: 12/24/19 Status: OrderedhydrOXYzine pamoate 25 mg oral capsule 1 capsule = 25 mg, By Mouth, 4 times a day, PRN as needed for anxiety, # 40 capsule, 11 Refills, Acute 02/23/20 8:43:00 EST, 05/30/19 8:43:00 EDT, Capsule, [facility]/pharmacy #[id number], 160, cm, 08/16/18 11:38:00 EDT, Height, [...] Refills, Maintenance, 08/24/19 9:24:00 EDT, EC Capsule, [facility]/pharmacy #[id number], 160, cm, 08/16/18 11:38:00 EDT, Height, 56.7, kg, 08/16/18 11:38:00 EDT, Dry Weight Start Date: 08/24/19 Status: OrderedPercocet 7.5 mg-325 mg oral tablet 2 tablet, By Mouth, Every 4 hours, dx: sickle cell pain, # 84 tablet, 0 Refills, Maintenance, 02/15/20 14:32:00 EST, [facility], partial refill upon patient request, 2 tablet By Mouth Every 4 hours,x7 days,Instr:dx: sickle cell pain,... Start Date: 02/15/20 Stop Date: 02/22/20 Status: Orderedsertraline 25 mg oral tablet 1 tablet = 25 mg, By Mouth, Daily, Take 1 tablet daily for 2 weeks, then increase to 2 tablets daily, # 60 tablet, 11 Refills, Maintenance, 05/30/19 8:43:00 EDT, Tablet, [facility]/pharmacy #[id number], 160, cm, 08/16/18 11:38:00 EDT, Height, 56.7, kg, 08/16/18 11... Start Date: 05/30/19 Status: Ordered Problem List Condition Effective Dates Status Health Status Informant Depression(Confirmed) Active Sickle cell anemia(Confirmed) Active Protein-calorie malnutrition, Active moderate(Confirmed) [facility] Care Management [facility], Saranya Active Benedicto [phone](Confirmed) TACO (transfusion associated Active circulatory overload)(Confirmed)1 1The [...]
--- OUTSIDE RECORDS SUMMARY | 2021-12-15 06:04 | XMS_ITS | Continuity of Care Document ---
:1970 Author Organization [facility] Address [address] [place] [address]- Care Team Providers Name Role Phone Lesia Cuevas MD Primary Care Physician Encounter [facility] Date(s): 12/12/20 - 01/11/[address] [address]- Allergies, Adverse Reactions, Alerts Substance Reaction Severity [...] Comment: normal saline diluent added lot number [id number] expires Result Comment: Afluria Medications albuterol 0.083% [...] 12/21/20 17:44:00 EDT, Route to Pharmacy Electronically, [facility]/pharmacy #[id number], 164, cm, 12/21/20 14:12:00 EDT, Height Start Date: 12/21/20 Status: Orderedapixaban 5 mg oral tablet 1 tablet = 5 mg, By Mouth, 2 times a day, # 60 tablet, 5 Refills, Maintenance, 12/21/20 17:44:00 EDT, Tablet, [facility]/pharmacy #[id number], Partial fill upon patient request if the prescription is for a scheduleII opioid drug., 164, cm, 12/21/20 14:12:00 EDT,... Start Date: 12/21/20 Status: OrderedBenadryl 25 mg oral capsule 1 capsule = 25 mg, By Mouth, Every 6 hours, PRN as needed for itching, # 100 capsule, 1 Refills, Acute 01/23/21 9:00:00 EST, 12/21/20 17:53:00 EDT, Tablet, [facility]/pharmacy #[id number], Partial fill upon patientrequest if [...] 11 Refills, Maintenance, 12/23/20 22:41:00 EDT, Lotion, [facility]/pharmacy #[id number], Partial fill upon patient request [...] 11 Refills, Maintenance, 12/21/20 17:54:00 EDT, Tablet, [facility]/pharmacy #[id number], Partial fill upon patient request [...] 03/15/21 17:44:00 EST, 12/21/20 17:44:00 EDT, Gum, [facility]/pharmacy #[id number], Partial rao... Start Date: 12/21/20 [...] Moderate, # 84 tablet, 0 Refills, Maintenance, 01/10/21 16:02:00 EST, Tablet, [facility]/pharmacy #[id number], Partial fill upon patient request if the prescription is for a schedule II opioid drug., 2 tablet By Mouth... Start Date: 01/10/21 Stop Date: 01/17/21 Status: OrderedPortable oxygen compressor Portable oxygen compressor, [...] tablet, 0 Refills, Maintenance, 12/21/20 17:43:00EDT, Tablet, [facility]/pharmacy #[id number], 164, cm, 12/21/20 14:12:00 EDT, Height Start Date: 12/21/20 Stop Date: 01/20/21 Status: OrderedSEROquel 25 mg oral tablet 25 mg, 1, tablet, By Mouth, 2 times a day, PRN, # 60 tablet, Refills 2, Tot. Refills 2, Maintenance,Agitation, 12/21/20 17:43:00 EDT, Route to Pharmacy Electronically, [facility]/pharmacy #[id number], 164, cm, 12/21/20 14:12:00 EDT, Height Start Date: 12/21/20 Stop Date: 03/21/21 Status: OrderedZoloft 50 mg oral tablet 1 tablet = 50 mg, By Mouth, Daily, # 30 tablet, 5 Refills, Maintenance, 12/21/20 17:43:00 EDT, Tablet, [facility]/pharmacy #[id number], Partial fill upon patient request [...]
--- OUTSIDE RECORDS SUMMARY | 2021-12-15 06:04 | XMS_ITS | Continuity of Care Document ---
:1970 Author Organization [facility] Address [address] [place] [address]- Care Team Providers Name Role Phone Lesia Cuevas MD Primary Care Physician Encounter [facility] Date(s): 01/04/21 - 02/03/[address] [address]- Allergies, Adverse Reactions, Alerts Substance Reaction Severity [...] Comment: normal saline diluent added lot number [id number] expires Result Comment: Afluria Medications albuterol 0.083% inhalation solution 3 mL = 2.5 mg, Inhalation, Every 6 hours, PRN shortness of breath, # 100 each, 11 Refills, Maintenance, 12/21/20 17:44:00 EDT, Solution, [facility]/pharmacy #1130, 164, cm, 12/21/20 14:12:00 EDT, Height Start Date: 12/21/20 Status: Orderedallopurinol 100 mg oral tablet 100 mg, 1, tablet, By Mouth, Daily, # 30 tablet, Refills 5, Tot. Refills 5, Maintenance, 12/21/20 17:44:00 EDT, Route to Pharmacy Electronically, [facility]/pharmacy #1130, 164, cm, 12/21/20 14:12:00 EDT, Height Start Date: 12/21/20 Status: Orderedapixaban 5 mg oral tablet 1 tablet = 5 mg, By Mouth, 2 times a day, # 60 tablet, 5 Refills, Maintenance, 12/21/20 17:44:00 EDT, Tablet, [facility]/pharmacy #1130, Partial fill upon patient request if the prescription is for a scheduleII opioid drug., 164, cm, 12/21/20 14:12:00 EDT,... Start Date: 12/21/20 Status: OrderedAtivan 1 mg oral tablet 1 tablet = 1 mg, By Mouth, 2 times a day, [place] checked on 01/16, okay to fill on 01/16 or after, # 56 tablet, 0 Refills, Maintenance, 01/16/21 19:40:00 EST, Tablet, [facility]/pharmacy #1130, 164, cm, 12/21/20 14:12:00 EDT, Height Start Date: 01/16/21 Status: OrderedCompression Stockings See Instructions, # 2 each, Maintenance, surgical, knee length 20-30 mm Hg Dx: Peripheral edema (R60.9), 12/21/20 17:13:00 EDT, Supply Start Date: 12/21/20 Status: OrderedEucerin Plus topical lotion 1 application, Topically, 2 times a day, PRN for dry skin, # 180 mL, 11 Refills, Maintenance, 12/23/20 22:41:00 EDT, Lotion, [facility]/pharmacy #[id number], Partial fill upon patient request if the prescription isfor a schedule II opioid drug., 1 application Top... Start Date: 12/23/20 Status: Orderedfurosemide 20 mg oral tablet 1, tablet, By Mouth, Daily, # 30 tablet, Refills 0, Route to Pharmacy Electronically, [id number], 164, cm, 12/21/20 14:12:00 EDT, Height Start Date: 01/15/21 Status: Orderedgabapentin 100 mg oral capsule 100 mg, 1, capsule, By Mouth, 3 times a day, PRN, # 90 capsule, Refills 1, Tot. Refills 1, Maintenance, Pain , Moderate, 12/21/20 17:54:00 EDT, Route to Pharmacy Electronically, [facility]/pharmacy #[id number], Partial fill upon patient request if the prescription... Start Date: 12/21/20 Stop Date: 02/19/21 Status: Orderedhydroxyurea 500 mg oral capsule 1 capsule = 500 mg, By Mouth, 2 times a day, for 30 days, # 60 capsule, 5 Refills, Acute 06/19/21 17:53:00 EDT, 12/21/20 17:53:00 EDT, Capsule, [facility]/pharmacy #1130, Partial fill upon patient request if the prescription is for a schedule II opioid drug.... Start Date: 12/21/20 Stop Date: 06/19/21 Status: OrderedhydrOXYzine hydrochloride 50 mg oral tablet 1 tablet = 50 mg, By Mouth, 3 times a day, PRN as needed for anxiety, for 30 days, # 90 tablet, 3 Refills, Acute 04/20/21 17:44:00 EST, 12/21/20 17:44:00 EDT, Tablet, [facility]/pharmacy #1130, Partial fill upon patient request if [...] 11 Refills, Maintenance, 12/21/20 17:54:00 EDT, Tablet, [facility]/pharmacy #1130, Partial fill upon patient request if [...] 03/15/21 17:44:00 EST, 12/21/20 17:44:00 EDT, Gum, [id number], Partial rao... Start Date: 12/21/20 Stop [...] 0 Refills, Maintenance, 01/31/21 16:02:00 EST, Tablet, [facility]/pharmacy #1130, Partial fill upon patient request if [...] tablet, 0 Refills, Maintenance, 12/21/20 17:43:00EDT, Tablet, [facility]/pharmacy #1130, 164, cm, 12/21/20 14:12:00 EDT, Height Start Date: 12/21/20 Stop Date: 01/20/21 Status: OrderedSEROquel 25 mg oral tablet 25 mg, 1, tablet, By Mouth, 2 times a day, PRN, # 60 tablet, Refills 2, Tot. Refills 2, Maintenance,Agitation, 12/21/20 17:43:00 EDT, [facility] to [facility], [facility], 164, [...]
--- OUTSIDE RECORDS SUMMARY | 2021-12-15 06:04 | XMS_ITS | Continuity of Care Document ---
:1970 Author Organization [facility] Address [address] [place] [address]- Care Team Providers Name Role Phone Lesia Cuevas MD Primary Care Physician [facility] Date[facility]): 09/25/21 - 10/25/[address] [address]- Allergies, Adverse Reactions, Alerts Substance Reaction Severity [...] Comment: normal saline diluent added lot number [id number] expires Result Comment: Afluria Medications allopurinol 100 mg oral tablet 100 mg, 1, tablet, By Mouth, Daily, # 90 tablet, Refills 1, Tot. Refills 1, Maintenance, 10/24/21 13:18:00 EDT, Route to Pharmacy Electronically, [facility]/pharmacy #[id number], Partial fill upon patient request if the prescription is for a schedule II opioid lynn... Start Date: 10/24/21 Status: Orderedclindamycin 1% topical lotion 1 application, Topically, 2 times a day, apply to L armpit lesions/bumps twice per day until healed,# 60 mL, 0 Refills, Maintenance, 10/24/21 15:35:00 EDT, Lotion, [facility]/pharmacy #[id number], Partial fill upon patient request if the prescription is for a amado... Start Date: 10/24/21 Status: OrderedDaily Lazara oral tablet 1 tablet, By Mouth, Daily Start Date: 07/03/21 Status: OrdereddiphenhydrAMINE 25 mg oral capsule 1 capsule, By Mouth, 3 times a day, PRN NEEDED FOR ITCHING, # 100 capsule, 1 Refills, Maintenance, 10/24/21 12:29:00 EDT, [facility]/pharmacy #[id number], 160, cm, 10/24/21 11:46:00 EDT, Height, 72.9, kg, 08/01/21 21:18:00 EDT, Dry Weight Start Date: 10/24/21 Status: OrderedEliquis 5 mg oral tablet 1 tablet = 5 mg, By Mouth, 2 times a day, # 60 tablet, 0 Refills, Maintenance, 10/24/21 12:29:00 EDT, Tablet, [facility]/pharmacy #[id number], Partial fill upon patient request if the prescription is for a scheduleII opioid drug., 160, cm, 10/24/21 11:46:00 EDT,... Start Date: 10/24/21 Status: Orderedgabapentin 300 mg oral capsule 300 mg, 1, capsule, By Mouth, 3 times a day, # 90 capsule, Refills 0, Tot. Refills 0, Maintenance, 10/24/21 12:29:00 EDT, Route to Pharmacy Electronically, [facility]/pharmacy #[id number], Partial fill upon patientrequest if the prescription is for a schedule II... Start Date: 10/24/21 Status: Orderedhydroxyurea 500 mg oral capsule 1 capsule = 500 mg, By Mouth, 2 times a day Start Date: 07/03/21 Status: OrderedhydrOXYzine hydrochloride 50 mg oral tablet 1 tablet = 50 mg, By Mouth, 3 times a day, PRN as needed for anxiety, # 90 tablet, 5 Refills, Maintenance, 10/24/21 12:29:00 EDT, Tablet, [facility]/pharmacy #[id number], Partial fill upon patient request if the prescription is for a schedule II opioid drug., 160,... Start Date: 10/24/21 Status: Orderedloratadine 10 mg oral tablet 10 mg, 1, tablet, By Mouth, Daily, # 90 tablet, Refills 11, Tot. Refills 11, Maintenance, 08/29/21 16:56:00 EDT, Route to Pharmacy Electronically, [facility]/pharmacy #[id number], Partial fill upon patient request if the prescription is for a schedule II opioid drDestinee. Start Date: 08/29/21 Status: OrderedLORazepam 1 mg oral tablet 1 tablet = 1 mg, By Mouth, 2 times a day, PRN as needed for anxiety, Limited Rx. Please contact Dr. Cuevas at [facility] if ongoing need., # 5 tablet, 0 Refills, Maintenance, 10/15/21 16:13:00 EDT, Tablet, [facility]/pharmacy #1... Start Date: 10/15/21 Status: Orderednicotine 4 mg oral transmucosal gum See Instructions, CHEW 1 PIECE EVERY 2 HOURS NEEDED FOR SMOKING CESSATION, # 200 gum, 0 Refills, [id number], 160, cm, 08/01/21 21:18:00 EDT, Height, 72.9, kg, 08/01/21 21:18:00 EDT, Dry Weight Start Date: 08/05/21 Status: Orderedomeprazole 20 mg oral enteric coated capsule 1 capsule = 20 mg, By Mouth, Daily, # 90 capsule, 10 Refills, Maintenance, 10/24/21 12:29:00 EDT, [facility]/pharmacy #[id number], Partial fill upon patient request if the prescription is for a schedule II opioid drug., 160, cm, 10/24/21 11:46:00 EDT, Height, 72.9... Start Date: 10/24/21 Status: OrderedoxyCODONE 10 mg oral tablet 2 tablet = 20 mg, By Mouth, Every 4 hours, PRN Pain , Moderate, # 84 tablet, 0 Refills, Maintenance,10/21/21 12:10:00 EDT, Tablet, [facility]/pharmacy #[id number], Partial fill upon patient request if the prescription is for a schedule II opioid drug., 160, cm, 0... Start Date: 10/21/21 Status: OrderedProAir HFA 90 mcg/inh inhalation aerosol 2 puffs, Inhalation, Every 6 hours Start Date: 07/03/21 Status: OrderedQUEtiapine 25 mg oral tablet 25 mg, 1, tablet, By Mouth, 2 times a day, PRN, # 90 tablet, Refills 0, Tot. Refills 0, Maintenance,Agitation, 10/17/21 22:55:00 EDT, Route to Pharmacy Electronically, [facility]/pharmacy #[id number], Partial fillupon patient request if the prescription is for a... Start Date: 10/17/21 Status: Ordered Problem List Condition Effective Dates [...] 30 days ago entered on: 12/26/20 Sex Care Team PersonnelName: Lesia Cuevas MD Address: [address] [place] [address]
--- OUTSIDE RECORDS SUMMARY | 2021-12-15 06:04 | XMS_ITS | Continuity of Care Document ---
:1970 Author Organization [facility] Address [address] [place] [address]- Care Team Providers Name Role Phone Lesia Cuevas MD Primary Care Physician Encounter [facility] Date(s): 10/19/20 - 11/18/[address] [address]- Allergies, Adverse Reactions, Alerts Substance Reaction Severity [...] 11 Refills, Maintenance, 05/30/19 8:43:00 EDT,Solution, [id number], 160, cm, 08/16/18 11:38:00 EDT, Height, 56.7, kg, 08/16/18 11:38:00 EDT, Dry Weight Start Date: 05/30/19 Status: Orderedallopurinol 100 mg oral tablet TK 1 T PO QD Start Date: 08/03/20 Status: Orderedallopurinol 100 mg oral tablet 100 mg, 1, tablet, By Mouth, Daily, # 30 tablet, Refills 0, Tot. Refills 0, Maintenance, 11/02/20 19:30:00 EDT, Route to Pharmacy Electronically, [facility]/pharmacy #[id number], Partial fill upon patient request if the prescription is for a schedule II opioid lynn... Start Date: 11/02/20 Status: OrderedAmmonium Lactate 12% Topical 1 applicator, [...] 0 Refills, Maintenance, 11/02/20 19:28:00 EDT, Tablet, [facility]/pharmacy #[id number], Partial fill upon patient request [...] 06/27/19 10:33:00 EDT, Route to Pharmacy Electronically, [facility]/pharmacy #[id number], 160, cm, 08/16/18 11:38:00 EDT, [...] II opioid drug. Start Date: 07/09/20 Status: OrderedMineral Oil /Petrolatum Ophth 1 applicator, [...] Moderate, # 84 tablet, 0 Refills, Maintenance, 11/15/20 16:02:00 EDT, Tablet, [facility], Partial fill upon patient request if the prescription is for a schedule II opioid drug., 2 tablet... Start Date: 11/15/20 Stop Date: 11/22/20 Status: OrderedpredniSONE 10 mg oral tablet 2 tablet = 20 mg, By Mouth, Daily, with food, # 14 tablet, 0 Refills, Maintenance, 11/02/20 19:26:00EDT, Tablet, [facility]/pharmacy #[id number], Partial fill upon patient request [...]
--- OUTSIDE RECORDS SUMMARY | 2021-12-15 06:04 | XMS_ITS | Continuity of Care Document ---
:1970 Author Organization [facility] Address [address] [place] [address]- Care Team Providers Name Role Phone Not on Staff, PCP Primary Care Physician Unavailable [facility]counter [facility] Date(s): 07/11/21 - 08/10/[address] [address]- Attending Physician: Jamaica Aguero Admitting Physician: Jamaica [...] Comment: normal saline diluent added lot number [id number] expires Result Comment: Afluria Medications allopurinol 100 mg oral tablet 100 mg, 1, tablet, By Mouth, Daily Start Date: 07/03/21 Status: OrderedDaily Lazara oral tablet 1 tablet, By Mouth, Daily Start Date: 07/03/21 Status: OrdereddiphenhydrAMINE 25 mg oral capsule 1 capsule, By Mouth, 3 times a day, PRN NEEDED FOR ITCHING, # 100 capsule, 1 Refills, [id number], 162, cm, 07/06/21 8:31:00 EDT, Height, 60.1, kg, 07/03/21 13:22:00 EDT, Dry Weight Start Date: 07/06/21 Status: OrderedEliquis 5 mg oral tablet 1 tablet = 5 mg, By Mouth, 2 times a day Start Date: 07/03/21 Status: Orderedgabapentin 300 mg oral capsule 300 mg, 1, capsule, By Mouth, 3 times a day Start Date: 07/03/21 Status: Orderedhydroxyurea 500 mg oral capsule 1 capsule = 500 mg, By Mouth, 2 times a day Start Date: 07/03/21 Status: OrderedhydrOXYzine hydrochloride 50 mg oral tablet 1 tablet = 50 mg, By Mouth, 3 times a day, PRN as needed for anxiety, 0 Refills, Maintenance, 07/03/21 13:16:00 EDT, Partial fill upon patient request if the prescription is for a schedule II opioid drug. Start Date: 07/03/21 Status: Orderedloratadine 10 mg oral tablet 10 mg, 1, tablet, By Mouth, Daily Start Date: 07/03/21 Status: OrderedLORazepam 1 mg oral tablet 1 tablet = 1 mg, By Mouth, 2 times a day, # 5 tablet, 0 Refills, Maintenance, 08/03/21 13:43:00 EDT,Tablet, Partial fill upon patient request if the prescription is for a schedule II opioid drug. Start Date: 08/03/21 Status: Orderednicotine 4 mg oral transmucosal gum See Instructions, CHEW 1 PIECE EVERY 2 HOURS NEEDED FOR SMOKING CESSATION, # 200 gum, 0 Refills, [facility], 160, cm, 08/01/21 21:18:00 EDT, Height, 72.9, kg, 08/01/21 21:18:00 EDT, Dry Weight Start Date: 08/05/21 Status: Orderedomeprazole 20 mg oral enteric coated capsule 1 capsule = 20 mg, By Mouth, Daily Start Date: 07/03/21 Status: OrderedoxyCODONE 10 mg oral tablet 2 tablet = 20 mg, By Mouth, Every 4 hours, # 84 tablet, 0 Refills, Maintenance, 08/05/21 11:12:00 EDT, Tablet, [facility]/pharmacy #[id number], Partial fill upon patient request if the prescription is for a schedule II opioid drug., 160, cm, 08/01/21 21:18:00 EDT,... Start Date: 08/05/21 Status: OrderedProAir HFA 90 mcg/inh inhalation aerosol 2 puffs, Inhalation, Every 6 hours Start Date: 07/03/21 Status: OrderedQUEtiapine 25 mg oral tablet 25 mg, 1, tablet, By Mouth, 2 times a day, PRN, Agitation Start Date: 07/03/21 Status: Ordered Problem List Condition Effective Dates [...]
--- OUTSIDE RECORDS SUMMARY | 2021-12-15 06:04 | XMS_ITS | Continuity of Care Document ---
:1970 Author Organization [facility] Address [address] [place] [address]- Care Team Providers Name Role Phone Lesia Cuevas MD Primary Care Physician Encounter [facility] Date(s): 01/15/21 - 02/14/[address] [address]- Allergies, Adverse Reactions, Alerts Substance Reaction Severity [...] Comment: normal saline diluent added lot number [id number] expires Result Comment: Afluria Medications albuterol 0.083% inhalation solution 3 mL = 2.5 mg, Inhalation, Every 6 hours, PRN shortness of breath, # 100 each, 11 Refills, Maintenance, 02/06/21 17:05:00 EST, Solution Start Date: 02/06/21 Status: Orderedallopurinol 100 mg oral tablet 100 mg, 1, tablet, By Mouth, Daily, # 30 tablet, Refills 5, Tot. Refills 5, Maintenance, 12/21/20 17:44:00 EDT, [id number] 164, cm, 12/21/20 14:12:00 EDT, Height Start Date: 12/21/20 Status: Orderedapixaban 5 mg oral tablet 1 tablet = 5 mg, By Mouth, 2 times a day, # 60 tablet, 5 Refills, Maintenance, 12/21/20 17:44:00 EDT, Tablet, [facility]/pharmacy #[id number], Partial fill upon patient request if the prescription is for a scheduleII opioid drug., 164, cm, 12/21/20 14:12:00 EDT,... Start Date: 12/21/20 Status: OrderedAtivan 1 mg oral tablet 1 tablet = 1 mg, By Mouth, 2 times a day, [place] checked on 01/16, okay to fill on 01/16 or after, # 56 tablet, 0 Refills, Maintenance, 01/16/21 19:40:00 EST, Tablet, [facility]/pharmacy #[id number], 164, cm, 12/21/20 14:12:00 EDT, Height Start Date: 01/16/21 Status: OrderedCompression Stockings See Instructions, # 2 each, Maintenance, surgical, knee length 20-30 mm Hg Dx: Peripheral edema (R60.9), 12/21/20 17:13:00 EDT, Supply Start Date: 12/21/20 Status: OrderedEucerin Plus topical lotion 1 application, Topically, 2 times a day, PRN for dry skin, # 180 mL, 11 Refills, Maintenance, 12/23/20 22:41:00 EDT, Lotion, [facility]/pharmacy #[id number], Partial fill upon patient request if the prescription isfor a schedule II opioid drug., 1 application Top... Start Date: 12/23/20 Status: Orderedfurosemide 20 mg oral tablet 1, tablet, By Mouth, Daily, # 30 tablet, Refills 0, Route to Pharmacy Electronically, [id number], 164, cm, 12/21/20 14:12:00 EDT, Height Start Date: 01/15/21 Status: Orderedgabapentin 100 mg oral capsule 100 mg, 1, capsule, By Mouth, 3 times a day, PRN, # 90 capsule, Refills 1, Tot. Refills 1, Maintenance, Pain , Moderate, 12/21/20 17:54:00 EDT, Route to Pharmacy Electronically, [facility]/pharmacy #[id number], Partial fill upon patient request [...] 04/20/21 17:44:00 EST, 12/21/20 17:44:00 EDT, Tablet, [facility]/pharmacy #[id number], Partial fill upon patient request [...] 11 Refills, Maintenance, 12/21/20 17:54:00 EDT, Tablet, [facility]/pharmacy #[id number], Partial fill upon patient request [...] 03/15/21 17:44:00 EST, 12/21/20 17:44:00 EDT, Gum, [facility]/pharmacy #[id number], Partial rao... Start Date: 12/21/20 Stop [...] Refills, Maintenance, 12/21/20 17:43:00 EDT, CR Tablet, [facility]/pharmacy #1130, 164, cm, 12/21/20 14:12:00 EDT, Height Start Date: 12/21/20 Status: OrderedPercocet 7.5 mg-325 mg oral tablet 2 tablet, By Mouth, Every 4 hours, PRN Pain , Moderate, # 84 tablet, 0 Refills, Maintenance, 02/14/21 16:02:00 EST, Tablet, [facility]/pharmacy #[id number], Partial fill upon patient request if the prescription is for a schedule II opioid drug., 2 tablet By Mouth... Start Date: 02/14/21 Stop Date: 02/21/21 Status: OrderedPortable oxygen compressor Portable oxygen compressor, [...] tablet, 0 Refills, Maintenance, 12/21/20 17:43:00EDT, Tablet, [facility]/pharmacy #1130, 164, cm, 12/21/20 14:12:00 EDT, Height Start Date: 12/21/20 Stop Date: 01/20/21 Status: OrderedSEROquel 25 mg oral tablet 25 mg, 1, tablet, By Mouth, 2 times a day, PRN, # 60 tablet, Refills 2, Tot. Refills 2, Maintenance,Agitation, 12/21/20 17:43:00 EDT, Route to Pharmacy Electronically, [facility]/pharmacy #[id number], 164, cm, 12/21/20 14:12:00 EDT, Height Start Date: 12/21/20 Stop Date: 03/21/21 Status: OrderedZoloft 50 mg oral tablet 1 tablet = 50 mg, By Mouth, Daily, # 30 tablet, 5 Refills, Maintenance, 12/21/20 17:43:00 EDT, Tablet, [facility]/pharmacy #[id number], Partial fill upon patient request [...]
--- OUTSIDE RECORDS SUMMARY | 2021-12-15 06:04 | XMS_ITS | Continuity of Care Document ---
:1970 Author Organization [facility] Address [address] [place] [address]- Care Team Providers Name Role Phone Lesia Cuevas MD Primary Care Physician Encounter [facility] Date(s): 10/17/21 - 11/16/21 [facility] [address], [place] [address] Allergies, Adverse Reactions, Alerts Substance Reaction Severity [...] Comment: normal saline diluent added lot number [id number] expires Result Comment: Afluria Medications allopurinol 100 mg oral tablet 100 mg, 1, tablet, By Mouth, Daily, # 90 tablet, Refills 1, Tot. Refills 1, Maintenance, 10/24/21 13:18:00 EDT, Route to Pharmacy Electronically, [facility]/pharmacy #[id number], Partial fill upon patient request if the prescription is for a schedule II opioid lynn... Start Date: 10/24/21 Status: Orderedclindamycin 1% topical lotion 1 application, Topically, 2 times a day, apply to L armpit lesions/bumps twice per day until healed,# 60 mL, 0 Refills, Maintenance, 10/24/21 15:35:00 EDT, Lotion, [facility]/pharmacy #[id number], Partial fill upon patient request if the prescription is for a amado... Start Date: 10/24/21 Status: OrderedDaily Lazara oral tablet 1 tablet, By Mouth, Daily Start Date: 07/03/21 Status: OrdereddiphenhydrAMINE 25 mg oral capsule 1 capsule, By Mouth, 3 times a day, PRN NEEDED FOR ITCHING, # 100 capsule, 1 Refills, Maintenance, 10/24/21 12:29:00 EDT, [id number], 160, cm, 10/24/21 11:46:00 EDT, Height, 72.9, kg, 08/01/21 21:18:00 EDT, Dry Weight Start Date: 10/24/21 Status: OrderedEliquis 5 mg oral tablet 1 tablet = 5 mg, By Mouth, 2 times a day, # 60 tablet, 0 Refills, Maintenance, 10/24/21 12:29:00 EDT, Tablet, [facility]/pharmacy #[id number], Partial fill upon patient request if the prescription is for a scheduleII opioid drug., 160, cm, 10/24/21 11:46:00 EDT,... Start Date: 10/24/21 Status: Orderedgabapentin 300 mg oral capsule 300 mg, 1, capsule, By Mouth, 3 times a day, # 90 capsule, Refills 0, Tot. Refills 0, Maintenance, 10/24/21 12:29:00 EDT, Route to Pharmacy Electronically, [facility]/pharmacy #[id number], Partial fill upon patientrequest if [...] 5 Refills, Maintenance, 10/24/21 12:29:00 EDT, Tablet, [facility]/pharmacy #[id number], Partial fill upon patient request if the prescription is for a schedule II opioid drug., 160,... Start Date: 10/24/21 Status: Orderedloratadine 10 mg oral tablet 10 mg, 1, tablet, By Mouth, Daily, # 90 tablet, Refills 11, Tot. Refills 11, Maintenance, 08/29/21 16:56:00 EDT, Route to Pharmacy Electronically, [facility]/pharmacy #[id number], Partial fill upon patient request if the prescription is for a schedule II opioid drDestinee. Start Date: 08/29/21 Status: OrderedLORazepam 1 mg oral tablet 1 tablet = 1 mg, By Mouth, 2 times a day, PRN as needed for anxiety, Limited Rx. Please contact Dr. Cuevas at [facility] if ongoing need., # 5 tablet, 0 Refills, Maintenance, 10/15/21 16:13:00 EDT, Tablet, [facility]/pharmacy #1... Start Date: 10/15/21 Status: Orderednicotine 4 mg oral transmucosal gum See Instructions, CHEW 1 PIECE EVERY 2 HOURS NEEDED FOR SMOKING CESSATION, # 200 gum, 0 Refills, [id number], 160, cm, 08/01/21 21:18:00 EDT, Height, 72.9, kg, 08/01/21 21:18:00 EDT, Dry Weight Start Date: 08/05/21 Status: Orderedomeprazole 20 mg oral enteric coated capsule 1 capsule = 20 mg, By Mouth, Daily, # 90 capsule, 10 Refills, Maintenance, 10/24/21 12:29:00 EDT, [facility]/pharmacy #[id number], Partial fill upon patient request if the prescription is for a schedule II opioid drug., 160, cm, 10/24/21 11:46:00 EDT, Height, 72.9... Start Date: 10/24/21 Status: OrderedoxyCODONE 10 mg oral tablet 2 tablet = 20 mg, By Mouth, Every 4 hours, PRN Pain , Moderate, # 84 tablet, 0 Refills, Maintenance,11/12/21 9:56:00 EDT, Tablet, [facility]/pharmacy #[id number], Partial fill upon patient request if the prescription is for a schedule II opioid drug., 160, cm, 09... Start Date: 11/12/21 Status: OrderedProAir HFA 90 mcg/inh inhalation aerosol 2 puffs, Inhalation, Every 6 hours Start Date: 07/03/21 Status: OrderedQUEtiapine 25 mg oral tablet 25 mg, 1, tablet, By Mouth, 2 times a day, PRN, # 90 tablet, Refills 0, Tot. Refills 0, Maintenance,Agitation, 10/17/21 22:55:00 EDT, Route to Pharmacy Electronically, [facility]/pharmacy #[id number], Partial fillupon patient request if [...] Care Team PersonnelName: Lesia Cuevas MD Address: [address] [place] [address]
--- OUTSIDE RECORDS SUMMARY | 2021-12-15 06:04 | XMS_ITS | Continuity of Care Document ---
:1970 Author Organization [facility] Address [address] [place] [address]- Care Team Providers Name Role Phone Lesia Cuevas MD Primary Care Physician Encounter [facility] Date(s): 04/07/21 - 06/20/[address] [address]- Attending Physician: Joyce Ireland MD Admitting Physician: Joyce Ireland MD Referring Physician: Joyce Ireland MD Allergies, [...] Comment: normal saline diluent added lot number [id number] expires Result Comment: Afluria Medications Albuterol (Eqv-Proventil HFA) 90 mcg/inh inhalation aerosol 2 puffs, Inhalation, Every 6 hours, # 18 Gm, 6 Refills, Maintenance, 04/23/21 13:15:00 EST, [facility]/pharmacy #[id number], Partial fill upon patient request if the prescription is for a schedule II opioid drug., 164, cm, 04/22/21 13:37:00 EST, Height Start Date: 04/23/21 Status: Orderedalbuterol 0.083% inhalation solution 3 mL = 2.5 mg, Inhalation, Every 6 hours, PRN shortness of breath, For diagnosis of asthma ICD-10 code J45.998, # 100 each, 11 Refills, Maintenance, 04/22/21 14:09:00 EST, Solution, [facility]/pharmacy #[id number],164, cm, 04/22/21 13:37:00 EST, Height Start Date: 04/22/21 Status: Orderedallopurinol 100 mg oral tablet 100 mg, 1, tablet, By Mouth, Daily, # 30 tablet, Refills 5, Tot. Refills 5, Maintenance, 12/21/20 17:44:00 EDT, Route to Pharmacy Electronically, [facility]/pharmacy #[id number], 164, cm, 12/21/20 14:12:00 EDT, Height Start Date: 12/21/20 Status: Orderedapixaban 5 mg oral tablet 1 tablet = 5 mg, By Mouth, 2 times a day, # 60 tablet, 5 Refills, Maintenance, 12/21/20 17:44:00 EDT, Tablet, [facility]/pharmacy #[id number], Partial fill upon patient request if the prescription is for a scheduleII opioid drug., 164, cm, 12/21/20 14:12:00 EDT,... Start Date: 12/21/20 Status: OrderedAtivan 1 mg oral tablet 1 tablet = 1 mg, By Mouth, 2 times a day, [place] checked okay to fill on 06/04/2021, # 56 tablet, 0 Refills, Maintenance, 06/04/21 6:51:00 EDT, Tablet, [facility]/pharmacy #[id number], 164, cm, 04/22/21 13:37:00 EST, Height Start Date: 06/04/21 Status: OrderedBenadryl 25 mg oral capsule 1 capsule = 25 mg, By Mouth, 3 times a day, PRN for itching, # 100 capsule, 1 Refills, Maintenance, 03/14/21 18:27:00 EST, Capsule, [facility]/pharmacy #[id number], Partial fill upon patient request [...] 11 Refills, Maintenance, 12/23/20 22:41:00 EDT, Lotion, [facility]/pharmacy #[id number], Partial fill upon patient request if the prescription isfor a schedule II opioid drug., 1 application Top... Start Date: 12/23/20 Status: Orderedfurosemide 20 mg oral tablet 1, tablet, By Mouth, Daily, # 30 tablet, Refills 0, Route to Pharmacy Electronically, [facility] STORE [id number], 164, cm, 12/21/20 14:12:00 EDT, Height Start Date: 01/15/21 Status: Orderedgabapentin 300 mg oral capsule 300 mg, 1, capsule, By Mouth, 3 times a day, # 90 capsule, Refills 5, Tot. Refills 5, Maintenance, 04/22/21 17:04:00 EST, Route to Pharmacy Electronically, [facility]/pharmacy #[id number], 164, cm, 04/22/21 13:37:00 EST, Height Start Date: 04/22/21 Status: Orderedloratadine 10 mg oral tablet 10 mg, 1, tablet, By Mouth, Daily, # 90 tablet, Refills 11, Tot. Refills 11, Maintenance, 04/22/21 13:57:00 EST, Route to Pharmacy Electronically, [facility]/pharmacy #[id number], 164, cm, 04/22/21 13:37:00 EST, Height [...] 11 Refills, Maintenance, 12/21/20 17:54:00 EDT, Tablet, [facility]/pharmacy #[id number], Partial fill upon patient request if the prescription is for a schedule II opioid drug., 1 tablet By Mouth Daily,x30 days, 164, cm, .. Start Date: 12/21/20 Stop Date: 12/16/21 Status: [...] 0 Refills, Maintenance, 04/22/21 14:12:00 EST, Gum, [facility]/pharmacy #[id number], 164, cm, 04/22/21 13:37:00 EST, Height [...] Moderate, # 84 tablet, 0 Refills, Maintenance, 06/20/21 11:22:00 EDT, Tablet, [facility]/pharmacy #[id number], Partial fill upon patient request if the prescription is for a schedule II opioid drug., 2 tablet By Mouth... Start Date: 06/20/21 Stop Date: 06/27/21 Status: OrderedPortable oxygen compressor Portable oxygen compressor, [...] tablet, 0 Refills, Maintenance, 12/21/20 17:43:00EDT, Tablet, [facility]/pharmacy #[id number], 164, cm, 12/21/20 14:12:00 EDT, Height Start Date: 12/21/20 Stop Date: 01/20/21 Status: OrderedpredniSONE 5 mg oral tablet See Instructions, alternate 4 tabs/d with 3 tabs/d for 2 weeks, # 120 tablet, 0 Refills, Maintenance, 03/13/21 13:09:00 EST, Tablet, [facility]/pharmacy #[id number], Partial fill upon patient request if the prescription is for a schedule II opioid drug., 164, cm,... Start Date: 03/13/21 Status: OrderedSEROquel 25 mg oral tablet 25 mg, 1, tablet, By Mouth, 2 times a day, PRN, # 60 tablet, Refills 2, Tot. Refills 2, Maintenance,Agitation, 03/21/21 17:43:00 EST, Route to Pharmacy Electronically, [facility]/pharmacy #[id number], 164, cm, 12/21/20 14:12:00 EDT, Height Start Date: 03/21/21 Stop Date: 4/27/22 Status: OrderedZoloft 50 mg oral tablet 1 tablet = 50 mg, By Mouth, Daily, # 30 tablet, 5 Refills, Maintenance, 12/21/20 17:43:00 EDT, Tablet, [facility]/pharmacy #[id number], Partial fill upon patient request [...]
--- OUTSIDE RECORDS SUMMARY | 2021-12-15 06:04 | XMS_ITS | Continuity of Care Document ---
:1970 Author Organization [facility] Address [address] [place] [address]- Care Team Providers Name Role Phone Lesia Cuevas MD Primary Care Physician Encounter [facility] Date(s): 03/07/21 - 11/06/21 [facility] [address], [place] [address] Discharge Disposition: A-D/C Home Attending Physician: Suzan ARCHIBALD(Hem/Onc), Jordon Lainez Admitting Physician: Suzan ARCHIBALD(Hem/Onc), Jordon Lainez Referring Physician: Lesia Cuevas MD Allergies, Adverse Reactions, Alerts Substance Reaction [...] Comment: normal saline diluent added lot number [id number] expires Result Comment: Afluria Medications allopurinol 100 mg oral tablet 100 mg, 1, tablet, By Mouth, Daily, # 90 tablet, Refills 1, Tot. Refills 1, Maintenance, 10/24/21 13:18:00 EDT, Route to Pharmacy Electronically, [facility]/pharmacy #[id number], Partial fill upon patient request if the prescription is for a schedule II opioid lynn... Start Date: 10/24/21 Status: Orderedclindamycin 1% topical lotion 1 application, Topically, 2 times a day, apply to L armpit lesions/bumps twice per day until healed,# 60 mL, 0 Refills, Maintenance, 10/24/21 15:35:00 EDT, Lotion, [facility]/pharmacy #[id number], Partial fill upon patient request if the prescription is for a amado... Start Date: 10/24/21 Status: OrderedDaily Lazara oral tablet 1 tablet, By Mouth, Daily Start Date: 07/03/21 Status: OrdereddiphenhydrAMINE 25 mg oral capsule 1 capsule, By Mouth, 3 times a day, PRN NEEDED FOR ITCHING, # 100 capsule, 1 Refills, Maintenance, 10/24/21 12:29:00 EDT, [facility]/pharmacy #[id number], 160, cm, 10/24/21 11:46:00 EDT, Height, 72.9, kg, 08/01/21 21:18:00 EDT, Dry Weight Start Date: 10/24/21 Status: OrderedEliquis 5 mg oral tablet 1 tablet = 5 mg, By Mouth, 2 times a day, # 60 tablet, 0 Refills, Maintenance, 10/24/21 12:29:00 EDT, Tablet, [facility]/pharmacy #[id number], Partial fill upon patient request if the prescription is for a scheduleII opioid drug., 160, cm, 10/24/21 11:46:00 EDT,... Start Date: 10/24/21 Status: Orderedgabapentin 300 mg oral capsule 300 mg, 1, capsule, By Mouth, 3 times a day, # 90 capsule, Refills 0, Tot. Refills 0, Maintenance, 10/24/21 12:29:00 EDT, Route to Pharmacy Electronically, [facility]/pharmacy #[id number], Partial fill upon patientrequest [...] 5 Refills, Maintenance, 10/24/21 12:29:00 EDT, Tablet, [facility]/pharmacy #[id number], Partial fill upon patient request if the prescription is for a schedule II opioid drug., 160,... Start Date: 10/24/21 Status: Orderedloratadine 10 mg oral tablet 10 mg, 1, tablet, By Mouth, Daily, # 90 tablet, Refills 11, Tot. Refills 11, Maintenance, 08/29/21 16:56:00 EDT, Route to Pharmacy Electronically, [facility]/pharmacy #[id number], Partial fill upon patient request if the prescription is for a schedule II opioid dr... Start Date: 08/29/21 Status: OrderedLORazepam 1 mg oral tablet 1 tablet = 1 mg, By Mouth, 2 times a day, PRN as needed for anxiety, Limited Rx. Please contact Dr. Cuevas at [facility] if ongoing need., # 5 tablet, 0 Refills, Maintenance, 10/15/21 16:13:00 EDT, Tablet, [facility]/pharmacy #1... Start Date: 10/15/21 Status: Orderednicotine 4 mg oral transmucosal gum See Instructions, CHEW 1 PIECE EVERY 2 HOURS NEEDED FOR SMOKING CESSATION, # 200 gum, 0 Refills, [facility] STORE [id number], 160, cm, 08/01/21 21:18:00 EDT, Height, 72.9, kg, 08/01/21 21:18:00 EDT, Dry Weight Start Date: 08/05/21 Status: Orderedomeprazole 20 mg oral enteric coated capsule 1 capsule = 20 mg, By Mouth, Daily, # 90 capsule, 10 Refills, Maintenance, 10/24/21 12:29:00 EDT, [id number], Partial fill upon patient request if the prescription is for a schedule II opioid drug., 160, cm, 10/24/21 11:46:00 EDT, Height, 72.9... Start Date: 10/24/21 Status: OrderedoxyCODONE 10 mg oral tablet 2 tablet = 20 mg, By Mouth, Every 4 hours, PRN Pain , Moderate, # 84 tablet, 0 Refills, Maintenance,11/04/21 9:37:00 EDT, Tablet, [facility]/pharmacy #1130, Partial fill upon patient request if the prescription is for a schedule II opioid drug., 160, cm, 09... Start Date: 11/04/21 Status: OrderedProAir HFA 90 mcg/inh inhalation aerosol 2 puffs, Inhalation, Every 6 hours Start Date: 07/03/21 Status: OrderedQUEtiapine 25 mg oral tablet 25 mg, 1, tablet, By Mouth, 2 times a day, PRN, # 90 tablet, Refills 0, Tot. Refills 0, Maintenance,Agitation, 10/17/21 22:55:00 EDT, Route to Pharmacy Electronically, [facility]/pharmacy #[id number], Partial fillupon patient request if the [...] Care Team PersonnelName: Lesia Cuevas MD Address: [address] [place] [address]
--- OUTSIDE RECORDS SUMMARY | 2021-12-15 06:04 | XMS_ITS | Continuity of Care Document ---
:1970 Author Organization [facility] Address [address] [place] [id number]- Care Team Providers Name Role Phone Lesia Cuevas MD Primary Care Physician Encounter [facility] Date(s): 07/03/21 - 07/09/[address] [address] Encounter Diagnosis Acute chest syndrome (Final) - 07/03/21 Urinary tract infection (Final) - 07/03/21 CULLEN (acute kidney injury) (Final) - 07/09/21 Discharge Disposition: A-D/C Home Attending Physician: Marleny Guadalupe DO Admitting Physician: Delano Alvarado MD Referring Physician: Not on Staff, Referring [...] Comment: normal saline diluent added lot number [id number] expires Result Comment: Afluria Medications acetaminophen-oxycodone 325 mg-7.5 mg oral tablet 2 tablet, By Mouth, Every 4 hours, PRN Pain , Severe, 0 Refills Start Date: 07/03/21 Status: Orderedallopurinol 100 mg oral tablet 100 mg, 1, tablet, By Mouth, Daily Start Date: 07/03/21 Status: OrderedDaily Lazara oral tablet 1 tablet, By Mouth, Daily Start Date: 07/03/21 Status: OrdereddiphenhydrAMINE 25 mg oral capsule 1 capsule, By Mouth, 3 times a day, PRN NEEDED FOR ITCHING, # 100 capsule, 1 Refills, [facility] STORE [id number], 162, cm, 07/06/21 8:31:00 EDT, Height, 60.1, [...] 1 mg, By Mouth, 2 times a day Start Date: 07/03/21 Status: Orderednicotine 4 mg oral transmucosal gum CHEW 1 PIECE EVERY 2 HOURS NEEDED FOR SMOKING CESSATION Start Date: 07/03/21 Status: Orderedomeprazole 20 mg oral enteric coated capsule 1 capsule = 20 mg, By Mouth, Daily Start Date: 07/03/21 Status: OrderedoxyCODONE 10 mg oral tablet 1 tablet = 10 mg, By Mouth, Every 4 hours, PRN as needed for pain, for 3 days, # 18 tablet, 0 Refills, Acute 07/12/21 8:57:00 EDT, 07/09/21 8:57:00 EDT, Tablet, [facility], Partial fill upon patient request if the prescription is for a s... Start Date: 07/09/21 Stop Date: 07/12/21 Status: OrderedoxyCODONE 10 mg oral tablet 2 tablet = 20 mg, By Mouth, Every 4 hours, for 7 days, # 84 tablet, 0 Refills, Acute 07/16/21 13:45:00 EDT, 07/09/21 13:45:00 EDT, Tablet, [facility]/pharmacy #[id number], Partial fill upon patient request if the prescription is for a schedule II opioid drug., 162... Start Date: 07/09/21 Stop Date: 07/16/21 Status: OrderedoxyCODONE 5 mg oral tablet 10 mg, Tablet, By Mouth, Every 4 hours, PRN for Pain , Moderate, Routine, 07/08/21 9:15:00 EDT Start Date: 07/08/21 Stop Date: 07/09/21 Status: DiscontinuedProAir HFA 90 mcg/inh inhalation aerosol 2 puffs, [...] Transfusion Medicine Services if any questions. Results Orders for Microbiology Reports Name Date Blood Culture 07/03/21 Urine Culture (URINE CULTURE) 07/03/21 Microbiology Reports TEST:Blood Culture STATUS:Auth (Verified) BODY SITE: SOURCE:Blood COLLECTED DATE/TIME:07/03/21 1:56 AMBlood Culture SPECIMEN DESCRIPTION : BLOOD L UPPER ARM SPECIAL REQUESTS : NONE CULTURE : NO GROWTH 5 DAYS. REPORT STATUS : FINAL 07/08/2021TEST:Urine Culture STATUS:Auth (Verified) BODY SITE: SOURCE:URINE COLLECTED DATE/TIME:07/03/21 1:39 AMUrine Culture SPECIMEN DESCRIPTION : URINE SPECIAL REQUESTS : NONE CULTURE : >100,000 COL/ML KLEBSIELLA PNEUMONIAE This isolate was identified using Maldi-TOF system These AST results were performed on the Sellvana ID and AST system REPORT STATUS : FINAL 07/05/2021 ORGANISM >100,000 COL/ML KLEBSIELLA PNEUMONIAE This isolate was identified using Maldi-TOF system METHOD MIN. INHIB. CONC. (MCG/ML) AMPICILLIN RESISTANT AMPICILLIN/SULBACTAM SUSCEPTIBLE AMOXICILLIN/CLAVULAN SUSCEPTIBLE CEFAZOLIN SUSCEPTIBLE CEFEPIME SUSCEPTIBLE CEFTRIAXONE SUSCEPTIBLE CIPROFLOXACIN SUSCEPTIBLE ERTAPENEM SUSCEPTIBLE GENTAMICIN SUSCEPTIBLE LEVOFLOXACIN SUSCEPTIBLE MEROPENEM SUSCEPTIBLE NITROFURANTOIN INTERMEDIATE PIPERACILLIN/TAZOBAC SUSCEPTIBLE TRIMETH/SULFAMETHOX SUSCEPTIBLE TETRACYCLINE SUSCEPTIBLERadiology Reports Exam Date Time Procedure Performing Provider Status 07/06/21 6:20 PM Wrist Comp Min 3 Views Right Seferino Bernabe; Aut h (Verified) Notes:(Wrist Comp Min 3 Views Right) Reason For Exam: PainRESULT: Wrist Comp Min 3 Views Right Wrist Comp Min 3 Views Right Reason: Pain; Clinical Question(s): Fracture COMPARISON: None. FINDINGS: No fracture or dislocation. No arthritic change. Normal carpal configuration. Intact radial and ulnar styloid processes. Negative ulnar variance noted. Normal soft tissues. IMPRESSION: No radiographic evidence of acute fracture or dislocation in the right wrist WSN: [id number] Ordering Physician: Andrew Wilburn Dictated By: Nadya Whitaker MD Dictated Date/Time: 07/06/21 6:40 pm Reviewed By: Nadya Whitaker MD Signed By: Nadya Whitaker MD Signed Date/Time: 07/06/21 6:40 pm Transcribed By: PRASHANT Transcribed Date/Time: 07/06/21 6:39 pm Exam Date Time Procedure Performing Provider Status 07/03/21 2:26 AM Chest 2 Views Frontal and Lat Jaden Sheltona; Auth (Verified) Notes:(Chest 2 Views Frontal and Lat) Reason For Exam: pt with SCD and chest pain;Other:RESULT: Chest 2 Views Frontal and Lat Chest 2 Views Frontal and Lat HX OF PRESENT ILLNESS: shortness of breath; Reason: pt with SCD and chest pain; Clinical Question(s): acute chest / COMPARISON: 08/10/2020 FINDINGS: LINES AND TUBES: Right chest Port-A-Cath with catheter tip in the SVC. LUNGS AND PLEURA: Mild diffuse interstitial prominence with more focal airspace opacity at the left lung base. No pleural effusion. No pneumothorax. HEART, MEDIASTINUM AND GARRETT: Heart is normal in size. Normal mediastinal and hilar contour. BONES AND SOFT TISSUES: No acute abnormality. IMPRESSION: Mild left basilar airspace opacity that could be due to atelectasis although other etiologies such as pneumonia or acute chest syndrome are also possible. WSN: [id number] Ordering Physician: Corby Villavicencio Dictated By: Blake Alvarez MD Dictated Date/Time: 07/03/21 7:40 am Reviewed By: Blake Alvarez MD Signed By: Blake Alvarez MD Signed Date/Time: 07/03/21 7:40 am Transcribed By: PRASHANT Transcribed Date/Time: 07/03/21 7:39 am Vital Signs Most recent to oldest 1 2 3 [Reference Range]: Height 162 cm 162 cm 162 cm (07/08/21 8:13 PM) (07/08/21 11:57 AM) (07/07/21 7: 48 PM) Weight 60.1 kg (07/03/21 12:20 PM) Oxygen Saturation [94-100 %] 100 % 91 % 98 % (07/09/21 9:00 AM) *L* (07/08/21 8:13 PM) (07/09/21 7:00 AM) Pulse Rate [55-90 bpm] 82 bpm 82 bpm 70 bpm (07/09/21 9:00 AM) (07/09/21 7:00 AM) (07/08/21 8:1 3 PM) Body Mass Index [18.5-24.99] 22.9 (07/03/21 12:20 PM) Blood Pressure [90-138/55-84 104/64 mm Hg 96/53 mm Hg 129 /73 mm Hg mm Hg] (07/09/21 9:00 AM) (07/09/21 7:00 AM) (07/08/21 8:1 3 PM) Respiratory Rate [16-30 18 br/min 18 br/min 18 br/mi n br/min] (07/09/21 7:00 AM) (07/09/21 6:17 AM) (07/09/21 12: 21 AM) Temperature [96.8-100.4 97.7 DegF 98.7 DegF 97.3 Deg F DegF] (07/09/21 9:00 AM) (07/09/21 7:00 AM) (07/08/21 8:1 3 PM) Liters per Minute 5 L/min 4 L/min 4.5 L/min (07/09/21 9:00 AM) (07/09/21 7:00 AM) (07/08/21 8:1 3 PM) Mode of Delivery (Oxygen) Nasal cannula Nasal cannula Nasal cannula (07/09/21 9:00 AM) (07/09/21 7:00 AM) (07/08/21 8:1 3 PM) Blood pressure sites Arm, left Arm, left Arm, right (07/09/21 9:00 AM) (07/09/21 7:00 AM) (07/08/21 8:1 3 PM) Temperature Route Oral Oral Oral (07/09/21 9:00 AM) (07/09/21 7:00 AM) (07/08/21 8:1 3 PM) Dry Weight 60.1 kg (07/03/21 12:20 PM) Weight Obtained Via Bed scale (07/03/21 12:20 PM) Social History Social History Type Response Smoking Status Former smoker, quit more rebel n 30 days ago entered on: 12/26/20 Sex
--- OUTSIDE RECORDS SUMMARY | 2021-12-15 06:04 | XMS_ITS | Continuity of Care Document ---
:1970 Author Organization [facility] Address Unavailable , Care Team Providers Name Role Phone Lesia Cuevas MD Primary Care Physician Encounter [facility] Date(s): 10/11/20 - 10/18/20 [facility] Attending Physician: Not on Staff, Attending MD [...] 11 Refills, Maintenance, 05/30/19 8:43:00 EDT,Solution, [id number], 160, cm, 08/16/18 11:38:00 EDT, Height, 56.7, kg, 08/16/18 11:38:00 EDT, Dry Weight Start Date: 05/30/19 Status: Orderedallopurinol 100 mg oral tablet TK 1 T PO QD Start Date: 08/03/20 Status: OrderedAmmonium Lactate 12% Topical 1 applicator, Topically, 3 times a day, 0 Refills, Maintenance, Cream Start Date: 08/17/20 Status: Orderedapixaban = 5 mg, G Tube, 2 times a day, 0 Refills, Maintenance, 08/17/20 14:39:00 EDT, Tablet, Partial fill upon patient request if the prescription is for a schedule II opioid drug. Start Date: 08/17/20 Status: OrderedBenadryl 25 mg oral capsule 1 [...] 06/27/19 10:33:00 EDT, Route to Pharmacy Electronically, [facility]/pharmacy #[id number], 160, cm, 08/16/18 11:38:00 EDT, [...] Moderate, # 84 tablet, 0 Refills, Maintenance, 10/18/20 9:41:00 EDT, Tablet, [facility], Partial fill upon patient request if the prescription is for a schedule II opioid drug., 2 tablet B... Start Date: 10/18/20 Stop Date: 10/25/20 Status: OrderedSEROquel 25 mg oral tablet 25 [...] Consult Transfusion Medicine Services if any questions. Procedures Procedure Date Related Diagnosis Body Site Status PEG - Percutaneous endoscopic gastrostomy Completed Vital Signs Most recent to oldest [Reference Range]: 1 Height 164 cm (10/11/20 3:22 PM) Weight 62.27 kg (10/11/20 3:22 PM) Oxygen Saturation [94-100 %] 98 % (10/11/20 3:22 PM) Pulse Rate [55-90 bpm] 90 bpm (10/11/20 3:22 PM) Body Mass Index [18.5-24.99] 23.15 (10/11/20 3:22 PM) Blood Pressure [90-138/55-84 mm Hg] 126/74 mm Hg (10/11/20 3:22 PM) Temperature [96.8-100.4 DegF] 99.4 DegF (10/11/20 3:22 PM) Liters per Minute 5 L/min (10/11/20 3:22 PM) Mode of Delivery (Oxygen) Nasal cannula (10/11/20 3:22 PM) Blood pressure sites Arm, right (10/11/20 3:22 PM) Temperature Route Temporal (10/11/20 3:22 PM) Weight Obtained Via Standing scale (10/11/20 3:22 PM) Social History Social History Type Response Smoking Status 5-9 cigarettes (between 1/4 to 1/2 pack)/day in last 30 days; Patient wants NRT during admission Yes; Other: nicotine gum; entered on: 07/09/20 Sex
--- OUTSIDE RECORDS SUMMARY | 2021-12-15 06:04 | XMS_ITS | Continuity of Care Document ---
:1970 Author Organization [facility] Address [address] [place] [id number]- Care Team Providers Name Role Phone Lesia Cuevas MD Primary Care Physician Encounter [facility] Date(s): 05/15/21 - 06/22/[address] [address]- Attending Physician: Kenny Dailey MD Admitting Physician: Kenny Dailey MD Referring Physician: Kenny Dailey MD Allergies, Adverse Reactions, Alerts Substance Reaction [...] Comment: normal saline diluent added lot number [id number] expires Result Comment: Afluria Medications Albuterol (Eqv-Proventil HFA) 90 mcg/inh inhalation aerosol 2 puffs, Inhalation, Every 6 hours, # 18 Gm, 6 Refills, Maintenance, 04/23/21 13:15:00 EST, [facility]/pharmacy #[id number], Partial fill upon patient request if the prescription is for a schedule II opioid drug., 164, cm, 04/22/21 13:37:00 EST, Height Start Date: 04/23/21 Status: Orderedalbuterol 0.083% inhalation solution 3 mL = 2.5 mg, Inhalation, Every 6 hours, PRN shortness of breath, For diagnosis of asthma ICD-10 code J45.998, # 100 each, 11 Refills, Maintenance, 04/22/21 14:09:00 EST, Solution, [facility]/pharmacy #[id number],164, cm, 04/22/21 13:37:00 EST, Height Start Date: 04/22/21 Status: Orderedallopurinol 100 mg oral tablet 100 mg, 1, tablet, By Mouth, Daily, # 30 tablet, Refills 5, Tot. Refills 5, Maintenance, 12/21/20 17:44:00 EDT, Route to Pharmacy Electronically, [facility]/pharmacy #[id number], 164, cm, 12/21/20 14:12:00 EDT, Height Start Date: 12/21/20 Status: Orderedapixaban 5 mg oral tablet 1 tablet = 5 mg, By Mouth, 2 times a day, # 60 tablet, 5 Refills, Maintenance, 12/21/20 17:44:00 EDT, Tablet, [facility]/pharmacy #[id number], Partial fill upon patient request if the prescription is for a scheduleII opioid drug., 164, cm, 12/21/20 14:12:00 EDT,... Start Date: 12/21/20 Status: OrderedAtivan 1 mg oral tablet 1 tablet = 1 mg, By Mouth, 2 times a day, [facility] checked okay to fill on 06/04/2021, # 56 tablet, 0 Refills, Maintenance, 06/04/21 6:51:00 EDT, Tablet, [facility]/pharmacy #[id number], 164, cm, 04/22/21 13:37:00 EST, Height Start Date: 06/04/21 Status: OrderedBenadryl 25 mg oral capsule 1 capsule = 25 mg, By Mouth, 3 times a day, PRN for itching, # 100 capsule, 1 Refills, Maintenance, 03/14/21 18:27:00 EST, Capsule, [facility]/pharmacy #[id number], Partial fill upon patient request if [...] 11 Refills, Maintenance, 12/23/20 22:41:00 EDT, Lotion, [facility]/pharmacy #[id number], Partial fill upon patient request if the prescription isfor a schedule II opioid drug., 1 application Top... Start Date: 12/23/20 Status: Orderedfurosemide 20 mg oral tablet 1, tablet, By Mouth, Daily, # 30 tablet, Refills 0, Route to Pharmacy Electronically, [facility] STORE [id number], 164, cm, 12/21/20 14:12:00 EDT, Height Start Date: 01/15/21 Status: Orderedgabapentin 300 mg oral capsule 300 mg, 1, capsule, By Mouth, 3 times a day, # 90 capsule, Refills 5, Tot. Refills 5, Maintenance, 04/22/21 17:04:00 EST, Route to Pharmacy Electronically, [facility]/pharmacy #[id number], 164, cm, 04/22/21 13:37:00 EST, Height Start Date: 04/22/21 Status: Orderedloratadine 10 mg oral tablet 10 mg, 1, tablet, By Mouth, Daily, # 90 tablet, Refills 11, Tot. Refills 11, Maintenance, 04/22/21 13:57:00 EST, Route to Pharmacy Electronically, [facility]/pharmacy #[id number], 164, cm, 04/22/21 13:37:00 EST, Height [...] 11 Refills, Maintenance, 12/21/20 17:54:00 EDT, Tablet, [facility]/pharmacy #[id number], Partial fill upon patient request if the prescription is for a schedule II opioid drug., 1 tablet By Mouth Daily,x30 days, 164, cm, . Start Date: 12/21/20 Stop Date: 12/16/21 Status: [...] 0 Refills, Maintenance, 04/22/21 14:12:00 EST, Gum, [facility]/pharmacy #[id number], 164, cm, 04/22/21 13:37:00 EST, Height [...] 0 Refills, Maintenance, 06/20/21 11:22:00 EDT, Tablet, [facility]/pharmacy #[id number], Partial fill [...] 5 Refills, Maintenance, 12/21/20 17:43:00 EDT, Tablet, [facility]/pharmacy #[id number], Partial fill upon patient request if [...]
--- OUTSIDE RECORDS SUMMARY | 2021-12-15 06:04 | XMS_ITS | Continuity of Care Document ---
:1970 Author Organization [facility] Address [address] [place] [id number]- Care Team Providers Name Role Phone Lesia Cuevas MD Primary Care Physician Encounter [facility] Date(s): 03/14/21 - 04/13/21 [facility] [address] [place] [id number] Allergies, Adverse Reactions, Alerts Substance Reaction Severity [...] Comment: normal saline diluent added lot number [id number] expires Result Comment: Afluria Medications albuterol 0.083% inhalation solution 3 mL = 2.5 mg, Inhalation, Every 6 hours, PRN shortness of breath, For diagnosis of asthma ICD-10 code J45.998, # 100 each, 11 Refills, Maintenance, 03/15/21 17:29:00 EST, Solution, [facility]/pharmacy #[id number],164, cm, 03/12/21 15:25:00 EST, Height Start Date: 03/15/21 Status: Orderedallopurinol 100 mg oral tablet 100 mg, 1, tablet, By Mouth, Daily, # 30 tablet, Refills 5, Tot. Refills 5, Maintenance, 12/21/20 17:44:00 EDT, Route to Pharmacy Electronically, [facility]/pharmacy #[id number], 164, cm, 12/21/20 14:12:00 EDT, Height Start Date: 12/21/20 Status: Orderedapixaban 5 mg oral tablet 1 tablet = 5 mg, By Mouth, 2 times a day, # 60 tablet, 5 Refills, Maintenance, 12/21/20 17:44:00 EDT, Tablet, [facility]/pharmacy #1130, Partial fill upon patient request if the prescription is for a scheduleII opioid drug., 164, cm, 12/21/20 14:12:00 EDT,... Start Date: 12/21/20 Status: OrderedAtivan 1 mg oral tablet 1 tablet = 1 mg, By Mouth, 2 times a day, [facility] checked okay to fill on 03/08, # 56 tablet, 0 Refills, Maintenance, 03/08/21 18:22:00 EST, Tablet, [facility]/pharmacy #1130, 164, cm, 12/21/20 14:12:00 EDT, Height Start Date: 03/08/21 Status: OrderedBenadryl 25 mg oral capsule 1 capsule = 25 mg, By Mouth, 3 times a day, PRN for itching, # 100 capsule, 1 Refills, Maintenance, 03/14/21 18:27:00 EST, Capsule, [facility]/pharmacy #1130, Partial fill upon patient request [...] 11 Refills, Maintenance, 12/23/20 22:41:00 EDT, Lotion, [facility]/pharmacy #1130, Partial fill upon patient request if the prescription isfor a schedule II opioid drug., 1 application Top... Start Date: 12/23/20 Status: Orderedfurosemide 20 mg oral tablet 1, tablet, By Mouth, Daily, # 30 tablet, Refills 0, Route to Pharmacy Electronically, [facility] ST[id number], 164, cm, 12/21/20 14:12:00 EDT, Height Start Date: 01/15/21 Status: Orderedgabapentin 100 mg oral capsule 100 mg, 1, capsule, By Mouth, 3 times a day, PRN, # 90 capsule, Refills 1, Tot. Refills 1, Maintenance, Pain , Moderate, 12/21/20 17:54:00 EDT, Route to Pharmacy Electronically, [facility]/pharmacy #[id number], Partial fill upon patient request if the prescription... Start Date: 12/21/20 Stop Date: 02/19/21 Status: Orderedhydroxyurea 500 mg oral capsule 1 capsule = 500 mg, By Mouth, 2 times a day, for 30 days, # 60 capsule, 5 Refills, Acute 06/19/21 17:53:00 EDT, 12/21/20 17:53:00 EDT, Capsule, [facility]/pharmacy #[id number], Partial fill upon patient request if the prescription is for a schedule II opioid drug.... Start Date: 12/21/20 Stop Date: 06/19/21 Status: OrderedhydrOXYzine hydrochloride 50 mg oral tablet 1 tablet = 50 mg, By Mouth, 3 times a day, PRN as needed for anxiety, for 30 days, # 90 tablet, 3 Refills, Acute 04/20/21 17:44:00 EST, 12/21/20 17:44:00 EDT, Tablet, [facility]/pharmacy #1130, Partial fill upon patient request [...] 11 Refills, Maintenance, 12/21/20 17:54:00 EDT, Tablet, [facility]/pharmacy #1130, Partial fill upon patient request [...] Refills, Maintenance, 12/21/20 17:43:00 EDT, CR Tablet, [facility]/pharmacy #1130, 164, cm, 12/21/20 14:12:00 EDT, Height Start Date: 12/21/20 Status: OrderedPercocet 7.5 mg-325 mg oral tablet 2 tablet, By Mouth, Every 4 hours, PRN Pain , Moderate, # 84 tablet, 0 Refills, Maintenance, 04/11/21 11:22:00 EST, Tablet, [facility]/pharmacy #1130, Partial fill upon patient request [...] tablet, 0 Refills, Maintenance, 12/21/20 17:43:00EDT, Tablet, [facility]/pharmacy #1130, 164, cm, 12/21/20 14:12:00 EDT, Height Start Date: 12/21/20 Stop Date: 01/20/21 Status: OrderedpredniSONE 5 mg oral tablet See Instructions, alternate 4 tabs/d with 3 tabs/d for 2 weeks, # 120 tablet, 0 Refills, Maintenance, 03/13/21 13:09:00 EST, Tablet, [facility]/pharmacy #1130, Partial fill upon patient request if the prescription is for a schedule II opioid drug., 164, cm,... Start Date: 03/13/21 Status: OrderedSEROquel 25 mg oral tablet 25 mg, 1, tablet, By Mouth, 2 times a day, PRN, # 60 tablet, Refills 2, Tot. Refills 2, Maintenance,Agitation, 03/21/21 17:43:00 EST, Route to Pharmacy Electronically, [facility]/pharmacy #[id number], 164, cm, 12/21/20 14:12:00 EDT, [...]
--- OUTSIDE RECORDS SUMMARY | 2021-12-15 06:04 | XMS_ITS | Continuity of Care Document ---
:1970 Author Organization [facility] Address [address] [place] [address]- Care Team Providers Name Role Phone Lesia Cuevas MD Primary Care Physician Encounter [facility] Date(s): 11/02/20 - 12/02/[address] [address]- Allergies, Adverse Reactions, Alerts Substance Reaction Severity [...] 11 Refills, Maintenance, 05/30/19 8:43:00 EDT,Solution, [id number], 160, cm, 08/16/18 11:38:00 EDT, Height, 56.7, kg, 08/16/18 11:38:00 EDT, Dry Weight Start Date: 05/30/19 Status: Orderedallopurinol 100 mg oral tablet TK 1 T PO QD Start Date: 08/03/20 Status: Orderedallopurinol 100 mg oral tablet 100 mg, 1, tablet, By Mouth, Daily, # 30 tablet, Refills 0, Tot. Refills 0, Maintenance, 11/26/20 10:09:00 EDT, Route to Pharmacy Electronically, [facility], Partial fill upon patient [...] 0 Refills, Maintenance, 11/02/20 19:28:00 EDT, Tablet, [facility]/pharmacy #[id number], Partial [...] 06/27/19 10:33:00 EDT, Route to Pharmacy Electronically, [facility]/pharmacy #[id number], 160, cm, 08/16/18 11:38:00 EDT, Height, [...] 11/20/20 15:45:00 EDT, Route to Pharmacy Electronically, [facility]/pharmacy #[id number], Partial fill upon [...] 0 Refills, Maintenance, 11/29/20 16:02:00 EDT, Tablet, [facility], Partial fill upon patient request if the prescription is for a schedule II opioid drug., 2 tablet... Start Date: 11/29/20 Stop Date: 12/06/20 Status: OrderedpredniSONE 10 mg oral tablet 2 tablet = 20 mg, By Mouth, Daily, with food, # 14 tablet, 0 Refills, Maintenance, 11/02/20 19:26:00EDT, Tablet, [facility]/pharmacy #[id number], Partial fill [...]
--- OUTSIDE RECORDS SUMMARY | 2021-12-15 06:04 | XMS_ITS | Continuity of Care Document ---
:1970 Author Organization [facility] Address [address] [place] [address]- Care Team Providers Name Role Phone Lesia Cuevas MD Primary Care Physician Encounter [facility] Date(s): 10/01/21 - 10/31/[address] [address]- Allergies, Adverse Reactions, Alerts Substance Reaction Severity [...] Comment: normal saline diluent added lot number [id number] expires Result Comment: Afluria Medications allopurinol 100 mg oral tablet 100 mg, 1, tablet, By Mouth, Daily, # 90 tablet, Refills 1, Tot. Refills 1, Maintenance, 10/24/21 13:18:00 EDT, Route to Pharmacy Electronically, [facility]/pharmacy #[id number], Partial fill upon patient request if the prescription is for a schedule II opioid lynn... Start Date: 10/24/21 Status: Orderedclindamycin 1% topical lotion 1 application, Topically, 2 times a day, apply to L armpit lesions/bumps twice per day until healed,# 60 mL, 0 Refills, Maintenance, 10/24/21 15:35:00 EDT, Lotion, [facility]/pharmacy #1130, Partial fill upon patient request if the prescription is for a amado... Start Date: 10/24/21 Status: OrderedDaily Lazara oral tablet 1 tablet, By Mouth, Daily Start Date: 07/03/21 Status: OrdereddiphenhydrAMINE 25 mg oral capsule 1 capsule, By Mouth, 3 times a day, PRN NEEDED FOR ITCHING, # 100 capsule, 1 Refills, Maintenance, 10/24/21 12:29:00 EDT, [facility]/pharmacy #1130, 160, cm, 10/24/21 11:46:00 EDT, Height, 72.9, kg, 08/01/21 21:18:00 EDT, Dry Weight Start Date: 10/24/21 Status: OrderedEliquis 5 mg oral tablet 1 tablet = 5 mg, By Mouth, 2 times a day, # 60 tablet, 0 Refills, Maintenance, 10/24/21 12:29:00 EDT, Tablet, [facility]/pharmacy #1130, Partial fill upon patient request if the prescription is for a scheduleII opioid drug., 160, cm, 10/24/21 11:46:00 EDT,... Start Date: 10/24/21 Status: Orderedgabapentin 300 mg oral capsule 300 mg, 1, capsule, By Mouth, 3 times a day, # 90 capsule, Refills 0, Tot. Refills 0, Maintenance, 10/24/21 12:29:00 EDT, Route to Pharmacy Electronically, [facility]/pharmacy #[id number], Partial fill upon patientrequest if [...] 5 Refills, Maintenance, 10/24/21 12:29:00 EDT, Tablet, [facility]/pharmacy #1130, Partial fill upon patient request if the prescription is for a schedule II opioid drug., 160,... Start Date: 10/24/21 Status: Orderedloratadine 10 mg oral tablet 10 mg, 1, tablet, By Mouth, Daily, # 90 tablet, Refills 11, Tot. Refills 11, Maintenance, 08/29/21 16:56:00 EDT, Route to Pharmacy Electronically, [facility]/pharmacy #1130, Partial fill upon patient request if the prescription is for a schedule II opioid drDestinee. Start Date: 08/29/21 Status: OrderedLORazepam 1 mg oral tablet 1 tablet = 1 mg, By Mouth, 2 times a day, PRN as needed for anxiety, Limited Rx. Please contact Dr. Cuevas at [facility] if ongoing need., # 5 tablet, 0 Refills, Maintenance, 10/15/21 16:13:00 EDT, Tablet, [facility]/pharmacy #1... Start Date: 10/15/21 Status: Orderednicotine 4 mg oral transmucosal gum See Instructions, CHEW 1 PIECE EVERY 2 HOURS NEEDED FOR SMOKING CESSATION, # 200 gum, 0 Refills, [id number], 160, cm, 08/01/21 21:18:00 EDT, Height, 72.9, [...] , Moderate, # 84 tablet, 0 Refills, Maintenance,10/29/21 9:52:00 EDT, Tablet, [facility]/pharmacy #1130, Partial fill upon patient request if the prescription is for a schedule II opioid drug., 160, cm, 09... Start Date: 10/29/21 Status: OrderedProAir HFA 90 mcg/inh inhalation aerosol 2 puffs, Inhalation, Every 6 hours Start Date: 07/03/21 Status: OrderedQUEtiapine 25 mg oral tablet 25 mg, 1, tablet, By Mouth, 2 times a day, PRN, # 90 tablet, Refills 0, Tot. Refills 0, Maintenance,Agitation, 10/17/21 22:55:00 EDT, Route to Pharmacy Electronically, [facility]/pharmacy #[id number], Partial fillupon patient request if [...] Care Team PersonnelName: Lesia Cuevas MD Address: [address] [place] [address]
--- OUTSIDE RECORDS SUMMARY | 2021-12-15 06:04 | XMS_ITS | Continuity of Care Document ---
:1970 Author Organization [employer] Address [address] [place] [phone]- Care Team Providers Name Role Phone Lesia Cuevas MD Primary Care Physician [facility]counter [facility] Date(s): 07/09/20 - 08/17/[address] [address] Discharge Disposition: Transfer Care Home Care Attending Physician: Nadeen ARCHIBALD, Ian Admitting Physician: Roberta Dyer DO Referring Physician: Not on Staff, Referring MD [...] 11 Refills, Maintenance, 05/30/19 8:43:00 EDT,Solution, [id number], 160, cm, 08/16/18 11:38:00 EDT, Height, 56.7, [...] II opioid drug. Start Date: 07/09/20 Status: OrderedDilaudid 2 mg oral tablet 2 mg, Tablet, G Tube, Every 2 hours, PRN for Pain , Severe, Routine, 08/12/20 2:47:00 EDT Start Date: 08/12/20 Stop Date: 08/19/20 Status: OrderedDilaudid 2 mg oral tablet 1 tablet = 2 mg, G Tube, Every 4 hours, PRN Pain , Severe, for 3 days, # 10 tablet, 0 Refills, Acute08/20/20 9:35:00 EDT, 08/17/20 9:35:00 EDT, Tablet, Partial fill upon patient request if the prescription is for a schedule II opioid drug. Start Date: 08/17/20 Stop Date: 08/20/20 Status: Ordereddocusate sodium 150 mg/15 ml oral [...] 06/27/19 10:33:00 EDT, Route to Pharmacy Electronically, [id number], 160, cm, 08/16/18 11:38:00 EDT, Height, [...] II opioid drug. Start Date: 08/17/20 Status: OrderedSEROquel 25 mg oral tablet 25 [...] Results Orders for Microbiology Reports Name Date Lower Resp Tract Culture w/ Gram Smear (LOWER RESP.TR. CULT.) 08/10/20 Sputum Culture w/ Gram Smear 08/09/20 AFB Culture w/ AFB Smear, Respiratory 07/24/20 Fungal Culture, Respiratory 07/24/20 Lower Resp Tract Culture w/ Gram Smear (LOWER RESP.TR. CULT.) 07/24/20 Sputum Culture w/ Gram Smear 07/21/20 Sputum Culture w/ Gram Smear 07/21/20 Blood Culture 07/21/20 Blood Culture #2 07/21/20 Blood Culture 07/13/20 Microbiology Reports (Most Recent Ten) TEST:Lower Respiratory Tract Culture STATUS:Auth (Verified) BODY SITE: SOURCE:BRONCH COLLECTED DATE/TIME:08/10/20 12:30 PMLower Respiratory Tract Culture SPECIMEN DESCRIPTION : BRONCHIAL WASHING SPECIAL REQUESTS : NONE GRAM STAIN : 3+ SQ.EPITHELIAL CELLS 2+ POLYMORPHONUCLEAR LEUKOCYTES 1+ GRAM POSITIVE COCCI CULTURE : 50,000 CFU/ML STAPH. SPECIES, NOT STAPH. AUREUS SUSCEPTIBILITY TESTING NOT ROUTINELY PERFORMED ON THIS ISOLATE. REPORT STATUS : FINAL 08/12/2020TEST:Sputum Culture STATUS:Auth (Verified) BODY SITE: SOURCE:SUCTIO COLLECTED DATE/TIME:08/09/20 3:41 PMSputum Culture SPECIMEN DESCRIPTION : SUCTIONED SPUTUM SPECIAL REQUESTS : NONE GRAM STAIN : 2+ SQ.EPITHELIAL CELLS 1+ WHITE BLOOD CELLS 2+ GRAM POSITIVE COCCI CULTURE : 4+ NORMAL CAROL REPORT STATUS : FINAL 08/11/2020TEST:Lower Respiratory Tract Culture STATUS:Auth (Verified) BODY SITE: SOURCE:BRONCH COLLECTED DATE/TIME:07/24/20 1:03 AMLower Respiratory Tract Culture SPECIMEN DESCRIPTION : BRONCH WASH, RIGHT RT LUNG SPECIAL REQUESTS : NONE GRAM STAIN : 1+ POLYMORPHONUCLEAR LEUKOCYTES 1+ SQ.EPITHELIAL CELLS NO ORGANISMS SEEN CULTURE : NO GROWTH 2 DAYS REPORT STATUS : FINAL 07/26/2020TEST:Fungal Culture, Respiratory STATUS:Auth (Verified) BODY SITE: SOURCE:BRONCH COLLECTED DATE/TIME:07/24/20 1:03 AMFungal Culture, Respiratory SPECIMEN DESCRIPTION : BRONCH WASH, RIGHT LUNGR SPECIAL REQUESTS : NONE DIRECT EXAM : NO FUNGAL ELEMENTS OBSERVED CULTURE : SAKINA PARAPSILOSIS REPORT STATUS : FINAL 08/13/2020TEST:AFB Culture w/AFB Smear, Respiratory STATUS:Unauthenticated BODY SITE: SOURCE:BRONCH COLLECTED DATE/TIME:07/24/20 1:03 AMAFB Culture w/AFB Smear, Respiratory SPECIMEN DESCRIPTION : BRONCH WASH, RIGHT LUNGR SPECIAL REQUESTS : NONE DIRECT EXAM : NO ACID FAST BACILLI SEEN ON DIRECT SMEAR, TEST PERFORMED AT [facility] CULTURE : SPECIMEN SENT TO [employer], [place] REPORT STATUS : PRELIMINARY REPORT TEST:Sputum Culture STATUS:Auth (Verified) BODY SITE: SOURCE:ENDOTR COLLECTED DATE/TIME:07/21/20 9:20 PMSputum Culture SPECIMEN DESCRIPTION : ENDOTRACHEAL ASPIRATE SPECIAL REQUESTS : NONE GRAM STAIN : 1+ SQ.EPITHELIAL CELLS 1+ POLYMORPHONUCLEAR LEUKOCYTES 2+ GRAM POSITIVE COCCI CULTURE : 2+ NORMAL CAROL REPORT STATUS : FINAL 07/23/2020TEST:Blood Culture, Second Order STATUS:Auth (Verified) BODY SITE: SOURCE:Blood COLLECTED DATE/TIME:07/21/20 4:22 PMBlood Culture, Second Order SPECIMEN DESCRIPTION : BLOOD NO SITE SPECIAL REQUESTS : NONE CULTURE : NO GROWTH 5 DAYS. REPORT STATUS : FINAL 07/26/2020TEST:Blood Culture STATUS:Auth (Verified) BODY SITE: SOURCE:Blood COLLECTED DATE/TIME:07/21/20 3:50 PMBlood Culture SPECIMEN DESCRIPTION : BLOOD LFT HND SPECIAL REQUESTS : NONE CULTURE : NO GROWTH 5 DAYS. REPORT STATUS : FINAL 07/26/2020TEST:Sputum Culture STATUS:Auth (Verified) BODY SITE: SOURCE:ENDOTR COLLECTED DATE/TIME:07/21/20 3:20 PMSputum Culture SPECIMEN DESCRIPTION : ENDOTRACHEAL ASPIRATE SPECIAL REQUESTS : NONE GRAM STAIN : 1+ SQ.EPITHELIAL CELLS 1+ POLYMORPHONUCLEAR LEUKOCYTES 2+ GRAM POSITIVE COCCI CULTURE : 3+ NORMAL CAROL REPORT STATUS : FINAL 07/23/2020TEST:Blood Culture STATUS:Auth (Verified) BODY SITE: SOURCE:Blood COLLECTED DATE/TIME:07/13/20 11:00 PMBlood Culture SPECIMEN DESCRIPTION : BLOOD RHAND SPECIAL REQUESTS : NONE CULTURE : NO GROWTH 5 DAYS. REPORT STATUS : FINAL 07/19/2020adiology Reports (Most Recent Ten) Exam Date Time Procedure Performing Provider Status 08/13/20 3:10 PM Modified Barium Swallow W/ Speech Laron Baker Auth (Verified) (Radio Notes:(Modified Barium Swallow W/ Speech (Radio) Reason For Exam: dysphagia;DysphagiaRESULT: Modified Barium Swallow W/ Speech (Radio Modified Barium Swallow W/ Speech (Radio WITH SPEECH PATHOLOGY CLINICAL INDICATION: Reason: Dysphagia; dysphagia; Clinical Question(s): Aspiration; Order Comment: Modified Barium Swallow W Speech (Radiology) Prep COMPARISON: None Technique: Lateral cine-videofluoroscopy was performed during the oral administration of various barium containing consistencies, as described below. Fluoroscopic imaging provided by Roc Alcazar PA-C. Pulsed fluoroscopy time: 1.6 minutes Dose Area Product (DAP): 64.5 uGy*m2 Findings: Applesauce, pudding, nectar, cookies and thin barium consistencies were tested. Subglottic aspiration of thin barium without an intact cough reflex was noted. No laryngeal penetration was seen utilizing chin tuck. The oral and pharyngeal phases of swallowing were otherwise without evidence of laryngeal penetration or subglottic aspiration. IMPRESSION: Silent aspiration as described. For dietary concerns or recommendations, please refer to speech pathologist report. By undersigning and finalizing the report, the attending radiologist confirms he/she has personally reviewed and interpreted the images and agrees with the description of the findings. I have personally reviewed the images and I agree with this report. WSN: [id number] Ordering Physician: Marco Barkley Dictated By: Elder Turcios Dictated Date/Time: 08/13/20 3:21 pm Reviewed By: Nathan Gao MD Signed By: Nathan Gao MD Signed Date/Time: 08/13/20 3:26 pm Transcribed By: PRASHANT Transcribed Date/Time: 08/13/20 3:20 pm Exam Date Time Procedure Performing Provider Status 08/10/20 8:06 AM Chest Portable Pierce Melo (Verifie d) Notes:(Chest Portable) Reason For Exam: Persistent hypoxia;Shortness of Breath RESULT: Chest Portable Chest Portable AP upright at 7:47 AM REASON: Shortness of Breath; Persistent hypoxia; Clinical Question(s): Pneumonia / Pneumonia COMPARISON: 08/04/2020 FINDINGS: LINES AND TUBES: Tracheostomy tube and right chest Port-A-Cath remain in place. LUNGS AND PLEURA: Diffuse hazy opacities throughout both lungs have not significantly changed. No pleural effusion. No pneumothorax. HEART, MEDIASTINUM AND GARRETT: Unchanged. BONES AND SOFT TISSUES: No acute abnormality. Partially visualized fixation hardware at the mandible. IMPRESSION: No significant change in diffuse hazy opacity throughout both lungs. WSN: [id number] Ordering Physician: Marco Barkley Dictated By: Blake Alvarez MD Dictated Date/Time: 08/10/20 8:57 am Reviewed By: Blake Alvarez MD Signed By: Blake Alvarez MD Signed Date/Time: 08/10/20 8:57 am Transcribed By: PRASHANT Transcribed Date/Time: 08/10/20 8:56 am Exam Date Time Procedure Performing Provider Status 08/09/20 12:23 PM Abdomen AP Ag Mack (Verified ) Notes:(Abdomen AP) Reason For Exam: ConstipationRESULT: XR Abdomen AP Supine view of the abdomen and pelvis single view dated August 09, 2020 at 1213 hours. Comparison films are from July 27, 2020. HISTORY: Constipation. FINDINGS: This examination shows a nonobstructed bowel gas pattern. A percutaneous gastrostomy tube is noted in the left upper quadrant. No masses or suspicious calcifications are identified. Minimal arthritic changes are noted in the hips. IMPRESSION: No evidence of bowel obstruction. No significant stool burden. Percutaneous gastrostomy tube in the left upper quadrant. Examination [id number]. Thank you for allowing me to participate in the care of this patient. WSN: [id number] Ordering Physician: Marco Barkley Dictated By: Rodrigo Oh MD Dictated Date/Time: 08/09/20 1:58 pm Reviewed By: Rodrigo Oh MD Signed By: Rodrigo Oh MD Signed Date/Time: 08/09/20 1:58 pm Transcribed By: PRASHANT Transcribed Date/Time: 08/09/20 1:56 pm Exam Date Time Procedure Performing Provider Status 08/04/20 10:28 PM Chest Portable Karolyn Katz ([facility] ed) Notes:(Chest Portable) Reason For Exam: Shortness of BreathRESULT: Chest Portable Chest Portable Reason: Shortness of Breath; Clinical Question(s): Pneumonia COMPARISON: 08/02/2020, 08/01/2020. FINDINGS: LINES AND TUBES: Satisfactory positioning of tracheostomy cannula. Right chest Port-A-Cath with tip in the mid SVC. Partially imaged G-tube. LUNGS AND PLEURA: Low lung volumes with coarse patchy bilateral interstitial opacities, unchanged. Possible small right pleural effusion. No left pleural effusion. No pneumothorax. HEART, MEDIASTINUM AND GARRETT: Heart is normal in size. Normal upper mediastinal and hilar contour. BONES AND SOFT TISSUES: No acute abnormality. IMPRESSION: Satisfactory positioning of lines and tubes. Stable bilateral interstitial opacities with possible small right pleural effusion. WSN: [id number] Ordering Physician: Dequan Dorman Dictated By: Blake Garcia MD Dictated Date/Time: 08/04/20 10:36 p Reviewed By: Blake Garcia MD Signed By: Blake Garcia MD Signed Date/Time: 08/04/20 10:36 pm Transcribed By: PRASHANT Transcribed Date/Time: 08/04/20 10:30 pm Exam Date Time Procedure Performing Provider Status 08/02/20 6:00 AM Chest Portable Ayla Delgado (Verified) Notes:(Chest Portable) Reason For Exam: s/p trach & PEG;PostopRESULT: Chest Portable Chest Portable Reason: Postop; s p trach PEG Clinical Question(s): Tube Placement COMPARISON: 08/01/2020. FINDINGS: LINES AND TUBES: Interval extubation with new tracheostomy in appropriate position. Right chest Port-A-Cath with tip in the mid SVC. Unchanged right IJ approach catheter with tip in the mid SVC. Interval removal of enteric tube is partially imaged new gastrostomy tube. LUNGS AND PLEURA: Low lung volumes with coarse patchy bilateral interstitial opacities, unchanged. Possible small right pleural effusion. No left pleural effusion. No pneumothorax. HEART, MEDIASTINUM AND GARRETT: Heart is normal in size. Normal upper mediastinal and hilar contour. BONES AND SOFT TISSUES: No acute abnormality. IMPRESSION: New tracheostomy in good position. Stable bilateral interstitial opacities with possible small right pleural effusion. I have personally reviewed the images and I agree with this report. WSN: [id number] Ordering Physician: Josh Heath Dictated By: Marcelo Acosta DO Dictated Date/Time: 08/02/20 11:30 a Reviewed By: Frantz Haas MD Signed By: Frantz Haas MD Signed Date/Time: 08/02/20 11:35 am Transcribed By: PRASHANT Transcribed Date/Time: 08/02/20 9:34 am Exam Date Time Procedure Performing Provider Status 08/01/20 6:03 AM Chest Portable Raffaele Dobson ([facility] ed) Notes:(Chest Portable) Reason For Exam: PreopRESULT: Chest Portable Chest Portable REASON: Preop; Clinical Question(s): Pleural Effusion COMPARISON: 07/31/2020 FINDINGS: LINES AND TUBES: Endotracheal tube 4 cm above the autumn. Enteric tube courses below the field of view. Unchanged right IJ Port-A-Cath and central venous catheter terminating in the mid SVC. LUNGS AND PLEURA: Unchanged extensive prominent interstitial lung markings Unchanged blunted bilateral costophrenic angles. No pneumothorax. HEART, MEDIASTINUM AND GARRETT: Heart is at the upper limits of normal for size. Normal upper mediastinal and hilar contour. BONES AND SOFT TISSUES: No acute abnormality. IMPRESSION: No significant interval change. Unchanged extensive interstitial airspace disease. I have personally reviewed the images and I agree with this report. WSN: [id number] Ordering Physician: Josh Heath Dictated By: Rickie Luis DO Dictated Date/Time: 08/01/20 9:54 am Reviewed By: John Sheridan MD Signed By: John Sheridan MD Signed Date/Time: 08/01/20 9:59 am Transcribed By: PRASHANT Transcribed Date/Time: 08/01/20 9:41 am Exam Date Time Procedure Performing Provider Status 07/31/20 6:40 PM Chest Portable Thuan Medina (Verified ) Notes:(Chest Portable) Reason For Exam: ETT position;Tube PlacementRESULT: Chest Portable Chest Portable Reason: Tube Placement; ETT position; Clinical Question(s): Tube Placement COMPARISON: Multiple prior studies, the most recent 07/30/2020 FINDINGS: LINES AND TUBES: Tip of endotracheal tube 4.2 cm above the autumn. An enteric tube in good position with tip and side-port in the stomach. Right IJ central venous access port with tip in the SVC. Another right IJ central venous catheter is present with its tip also in the SVC. LUNGS AND PLEURA: Mixed interstitial and airspace disease in both lungs similar to the previous examination, again with relative sparing of the apices. No pleural effusion. Note is made that the right costophrenic angle has been excluded from the imaged area. No pneumothorax. HEART, MEDIASTINUM AND GARRETT: Heart is normal in size. Normal upper mediastinal and hilar contour. BONES AND SOFT TISSUES: No acute abnormality. IMPRESSION: Support lines remain in good position. Stable interstitial and airspace disease in both lungs. WSN: [id number] Ordering Physician: Dequan Omer Dictated By: David Mccabe MD Dictated Date/Time: 07/31/20 7:00 pm Reviewed By: David Mccabe MD Signed By: David Mccabe MD Signed Date/Time: 07/31/20 7:00 pm Transcribed By: PRASHANT Transcribed Date/Time: 07/31/20 6:58 pm Exam Date Time Procedure Performing Provider Status 07/30/20 3:29 PM Chest Portable Neda Rodriguez (Verifie d) Notes:(Chest Portable) Reason For Exam: Line PlacementRESULT: Chest Portable Chest Portable CLINICAL INDICATION: Reason: Line Placement; Clinical Question(s): Line Placement COMPARISON: Prior radiographs, most recently the previous day. FINDINGS: There is an endotracheal tube with tip 3.2 cm above the autumn. Enteric tube extends in the stomach, sidehole in the gastric body though tip off the film. There is a right-sided Port-A-Cath with tip in the mid SVC as well as a right internal jugular central line with tip in the upper SVC. The cardiac silhouette is within normal limits. Mediastinal contour is normal. Hilar partially obscured by mixed interstitial and alveolar opacity throughout both lung, with mildly improved aeration ofthe lung bases compared to the most recent study. There is no significant effusion. There is no pneumothorax. No acute osseous abnormality is noted. IMPRESSION: Lines and tubes as described. Diffuse bilateral mixed interstitial and alveolar opacity, with mildly improved aeration at the lungbases compared to the previous day. WSN: [id number] Ordering Physician: Dequan Dorman Dictated By: Nati Quinn MD Dictated Date/Time: 07/30/20 3:56 pm Reviewed By: Nati Quinn MD Signed By: Nati Quinn MD Signed Date/Time: 07/30/20 3:56 pm Transcribed By: PRASHANT Transcribed Date/Time: 07/30/20 3:49 pm Exam Date Time Procedure Performing Provider Status 07/29/20 11:43 AM Chest Portable Thuan Medina (Verified ) Notes:(Chest Portable) Reason For Exam: Tube PlacementRESULT: Chest Portable Examination: Portable chest performed on 07/29/2020 at 11:19 AM. History: Tube placement. Findings: A frontal view of the chest is compared to a prior study dated 07/28/2020. Port-A-Cath, endotracheal tube, and enteric tube are in expected location. The cardiac silhouette is at the upper limits of normal for size. Increased interstitial lung markings bilaterally are similar to the prior study. There is a probable right pleural effusion. The osseous structures are intact. IMPRESSION: Support apparatus is in expected location. There is no significant interval change in the bilateral increased interstitial lung markings. WSN: [id number] Ordering Physician: Binta Sheldon Dictated By: Lorena Chambers MD Dictated Date/Time: 07/29/20 2:20 pm Reviewed By: Lorena Chambers MD Signed By: Lorena Chamebrs MD Signed Date/Time: 07/29/20 2:20 pm Transcribed By: PRASHANT Transcribed Date/Time: 07/29/20 2:19 pm Exam Date Time Procedure Performing Provider Status 07/28/20 6:25 AM Chest Portable Vanita Quigley; Margaret ([facility] ed) Notes:(Chest Portable) Reason For Exam: Tube PlacementRESULT: Chest Portable Chest Portable semiupright at 6:02 AM Reason: Tube Placement; Clinical Question(s): Tube Placement COMPARISON: Multiple priors, the most recent 07/23/2020 FINDINGS: LINES AND TUBES: Tip of endotracheal tube 2.3 cm above the autumn. Enteric tube in good position. Right IJ central venous access port with tip in the SVC. Esophageal temperature probe with tip at the level of the mid esophagus. LUNGS AND PLEURA: Stable extensive bilateral airspace disease. Peribronchial cuffing is noted throughout. No pleural effusion. No pneumothorax. HEART, MEDIASTINUM AND GARRETT: Heart is normal in size. Normal upper mediastinal and hilar contour. BONES AND SOFT TISSUES: No acute abnormality. IMPRESSION: Support lines in good position. Stable extensive bilateral airspace disease. WSN: [id number] Ordering Physician: Roshni Rico Dictated By: David Mccabe MD Dictated Date/Time: 07/28/20 7:30 am Reviewed By: David Mccabe MD Signed By: David Mccabe MD Signed Date/Time: 07/28/20 7:30 am Transcribed By: PRASHANT Transcribed Date/Time: 07/28/20 7:27 am Vital Signs Most recent to oldest 1 2 3 [Reference Range]: Height 164 cm 164 cm 164 cm (08/17/20 6:53 PM) (08/17/20 12:47 PM) (08/17/20 5: 44 AM) Weight 53.4 kg 55.7 kg 55.7 kg (08/17/20 5:44 AM) (08/14/20 9:00 AM) (08/13/20 5:3 9 AM) Oxygen Saturation [94-100 %] 91 % 97 % 96 % *L* (08/17/20 12:47 PM) (08/17/20 5:44 AM) (08/17/20 6:53 PM) Pulse Rate [55-90 bpm] 100 bpm 91 bpm 95 bpm *H* *H* *H* (08/17/20 6:53 PM) (08/17/20 12:47 PM) (08/17/20 5: 44 AM) Body Mass Index [18.5-24.99] 19.85 20.71 20 (08/17/20 5:44 AM) (08/13/20 5:39 AM) (08/12/20 5:2 2 AM) Blood Pressure [90-138/55-84 96/62 mm Hg 94/64 mm Hg 97/ 59 mm Hg mm Hg] (08/17/20 6:53 PM) (08/17/20 12:47 PM) (08/17/20 5: 44 AM) Respiratory Rate [16-30 16 br/min 18 br/min 18 br/mi n br/min] (08/17/20 9:26 PM) (08/17/20 8:26 PM) (08/17/20 6:5 3 PM) Temperature [96.8-100.4 DegF] 98.9 DegF 98.6 DegF 99 .1 DegF (08/17/20 6:53 PM) (08/17/20 12:47 PM) (08/17/20 5: 44 AM) Liters per Minute 10 L/min 10 L/min 10 L/min (08/17/20 6:53 PM) (08/17/20 12:47 PM) (08/17/20 5: 44 AM) Mode of Delivery (Oxygen) Trach mask Trach mask Trach mask (08/17/20 6:53 PM) (08/17/20 12:47 PM) (08/17/20 5: 44 AM) Blood pressure sites Arm, left Arm, left Arm, right (08/17/20 6:53 PM) (08/17/20 12:47 PM) (08/17/20 5: 44 AM) Temperature Route Oral Oral Oral (08/17/20 6:53 PM) (08/17/20 12:47 PM) (08/17/20 5: 44 AM) Weight Obtained Via Bed scale Bed scale Bed scale (08/17/20 5:44 AM) (08/13/20 5:39 AM) (08/12/20 5:2 2 AM) Social History Social History Type Response Smoking Status 5-9 cigarettes (between 1/4 to 1/2 pack)/day in last 30 days; Patient wants NRT during admission Yes; Other: nicotine gum; entered on: 07/09/20 Sex
--- OUTSIDE RECORDS SUMMARY | 2021-12-15 06:04 | XMS_ITS | Continuity of Care Document ---
:1970 Author Organization [facility] Address [address] [place] [id number]- Care Team Providers Name Role Phone Lesia Cuevas MD Primary Care Physician [facility]counter [facility] Date(s): 01/06/20 - 02/17/[address] [address]- Attending Physician: Danya Austin MD Admitting Physician: Danya Austin MD Allergies, Adverse Reactions, Alerts Substance Reaction [...] 05/19/2014:54:00 EDT, Aerosol, Route to Pharmacy Electronically, [id number], [facility] #[id number], 160, cm, 08/16/18 11:38:00 EDT, [...] 10:33:00 EDT, Route to Pharmacy Electronically, [facility]pharm[facility] #[id number], 160, cm, 08/16/18 11:38:00 EDT, Height, 56.7, kg, 08/16/18 11:38:00 EDT, Dry Weight Start Date: 06/27/19 Stop Date: 12/24/19 Status: OrderedhydrOXYzine pamoate 25 mg oral capsule 1 capsule = 25 mg, By Mouth, 4 times a day, PRN as needed for anxiety, # 40 capsule, 11 Refills, Acute 02/23/20 8:43:00 EST, 05/30/19 8:43:00 EDT, Capsule, [facility]/pharmacy #[id number], 160, cm, 08/16/18 11:38:00 EDT, [...] Maintenance, 08/24/19 9:24:00 EDT, EC Capsule, [facility]/pharmacy #[id number], 160, cm, 08/16/18 11:38:00 EDT, Height, 56.7, kg, 08/16/18 11:38:00 EDT, Dry Weight Start Date: 08/24/19 Status: OrderedPercocet 7.5 mg-325 mg oral tablet 2 tablet, By Mouth, Every 4 hours, dx: sickle cell pain, # 84 tablet, 0 Refills, Maintenance, 02/15/20 14:32:00 EST, [facility], partial refill upon patient request, 2 tablet By Mouth Every 4 hours,x7 days,Instr:dx: sickle cell pain,... Start Date: 02/15/20 Stop Date: 02/22/20 Status: Orderedsertraline 25 mg oral tablet 1 tablet = 25 mg, By Mouth, Daily, Take 1 tablet daily for 2 weeks, then increase to 2 tablets daily, # 60 tablet, 11 Refills, Maintenance, 05/30/19 8:43:00 EDT, Tablet, [facility]/pharmacy #[id number], 160, cm, 08/16/18 11:38:00 EDT, Height, 56.7, kg, 08/16/18 11... Start Date: 05/30/19 Status: Ordered Problem List Condition Effective Dates Status Health Status Informant Depression(Confirmed) Active Sickle cell anemia(Confirmed) Active Protein-calorie malnutrition, Active moderate(Confirmed) [facility] Care Management Saranya Steward [phone](Confirmed) TACO (transfusion associated Active circulatory overload)(Confirmed)1 1The [...]
--- OUTSIDE RECORDS SUMMARY | 2021-12-15 06:04 | XMS_ITS | Continuity of Care Document ---
:1970 Author Organization [facility] Address [address] [place] [address]- Care Team Providers Name Role Phone Lesia Cuevas MD Primary Care Physician Encounter [facility] Date(s): 10/31/20 - 11/30/[address] [address]- Allergies, Adverse Reactions, Alerts Substance Reaction Severity [...] 11 Refills, Maintenance, 05/30/19 8:43:00 EDT,Solution, [id number], 160, cm, 08/16/18 11:38:00 EDT, Height, 56.7, kg, 08/16/18 11:38:00 EDT, Dry Weight Start Date: 05/30/19 Status: Orderedallopurinol 100 mg oral tablet TK 1 T PO QD Start Date: 08/03/20 Status: Orderedallopurinol 100 mg oral tablet 100 mg, 1, tablet, By Mouth, Daily, # 30 tablet, Refills 0, Tot. Refills 0, Maintenance, 11/26/20 10:09:00 EDT, Route to Pharmacy Electronically, [facility], Partial fill upon [...] 0 Refills, Maintenance, 11/02/20 19:28:00 EDT, Tablet, [facility]/pharmacy #1130, Partial fill upon patient request [...] 11/20/20 15:45:00 EDT, Route to Pharmacy Electronically, [facility]/pharmacy #1130, Partial fill upon patient request [...] 0 Refills, Maintenance, 11/29/20 16:02:00 EDT, Tablet, [facility], Partial fill upon patient request if the prescription is for a schedule II opioid drug., 2 tablet... Start Date: 11/29/20 Stop Date: 12/06/20 Status: OrderedpredniSONE 10 mg oral tablet 2 tablet = 20 mg, By Mouth, Daily, with food, # 14 tablet, 0 Refills, Maintenance, 11/02/20 19:26:00EDT, Tablet, [facility]/pharmacy #1130, Partial fill upon patient request [...]
--- OUTSIDE RECORDS SUMMARY | 2021-12-15 06:04 | XMS_ITS | Continuity of Care Document ---
:1970 Author Organization [facility] Address [address] [place] [address]- Care Team Providers Name Role Phone Blake Recio MD Primary Care Physician Encounter [facility] Date(s): 04/18/19 - 04/28/[address] [address]- [facility] Attending Physician: Jamaica Aguero Admitting Physician: Jamaica [...] 199:26:11 EDT, Aerosol, Route to Pharmacy Electronically, [id number], [facility]/pharmacy #[id number], Compound Start Date: 06/08/18 Status: Ordereddocusate-senna [...] 03/07/18 8:37:07 EST, Route to Pharmacy Electronically, [id number], [facility] Start Date: 03/07/18 Stop Date: 04/06/18 [...] Severe, # 84 tablet, 0 Refills, Maintenance, 04/22/19 8:51:00 EST, Tablet, [facility], Pt may partial fill upon request, 2 tablet By MouthEvery 4 hours,PRN:Pain , Severe, 160, cm, ... Start Date: 04/22/19 Status: Orderedsertraline 25 mg oral tablet 1 tablet = 25 mg, By Mouth, Daily, # 30 tablet, 0 Refills, Maintenance, 03/17/18 16:11:21 EST, Tablet Start Date: 03/17/18 Status: Ordered Problem List Condition Effective Dates Status Health Status Informant Sickle cell anemia(Confirmed) Active Protein-calorie malnutrition, Active moderate(Confirmed) Care coordination [facility] Care Active Coordinator Steff Mantilla, CC [phone](Confirmed) TACO (transfusion associated Active circulatory overload)(Confirmed)1 1The [...]
--- OUTSIDE RECORDS SUMMARY | 2021-12-15 06:04 | XMS_ITS | Continuity of Care Document ---
:1970 Author Organization [facility] Address [address] [place] [address]- Care Team Providers Name Role Phone Lesia Cuevas MD Primary Care Physician Encounter [facility] Date(s): 10/24/21 - 12/07/[address] [address] Attending Physician: Not on Staff, Attending MD [...] Comment: normal saline diluent added lot number [id number] expires Result Comment: Afluria Medications allopurinol 100 mg oral tablet 100 mg, 1, tablet, By Mouth, Daily, # 90 tablet, Refills 1, Tot. Refills 1, Maintenance, 10/24/21 13:18:00 EDT, [facility], [id number], [...] 10/24/21 11:46:00 EDT,... Start Date: 10/24/21 Status: OrderedEstrace Vaginal Cream 0.1 mg/g = 1 Gm, Vaginally, Daily at bedtime, # 90 Gm, 3 Refills, Maintenance, 12/06/21 14:57:00 EDT, [facility]/pharmacy #1130, Partial fill upon patient request if the prescription is for a schedule II opioid drug.,160, cm, 12/06/21 14:22:00 EDT, Height, 72.9, kg,... Start Date: 12/06/21 Status: Orderedgabapentin 300 mg oral capsule 300 [...] prescription is for a schedule II opioid drShaunna Start Date: 08/29/21 Status: OrderedLORazepam 1 mg oral tablet 1 tablet = 1 mg, By Mouth, 2 times a day, PRN as needed for anxiety, Limited Rx. Please contact Dr. Cuevas at [facility] if ongoing need., # 5 tablet, 0 Refills, Maintenance, 10/15/21 16:13:00 EDT, Tablet, [facility]/pharmacy #1... Start Date: 10/15/21 Status: Orderednicotine 4 mg oral transmucosal gum See Instructions, CHEW 1 PIECE EVERY 2 HOURS NEEDED FOR SMOKING CESSATION, # 200 gum, 0 Refills, [id number], 160, cm, 08/01/21 21:18:00 EDT, Height, 72.9, [...] , Moderate, # 84 tablet, 0 Refills, Maintenance,12/03/21 9:26:00 EDT, Tablet, [facility], Partial fill upon patient request if the prescription is for a schedule II opioid drug., 160, cm, 09... Start Date: 12/03/21 Status: OrderedProAir HFA 90 mcg/inh inhalation aerosol [...] Date: 10/17/21 Status: Ordered Problem List Condition Confirmation Course Effective Dates Status Health Stat us Informant Depression Confirmed Active Sickle cell anemia Confirmed Active Protein-calorie Confirmed Active malnutrition, moderate TACO (transfusion Confirmed Active associated circulatory overload)1 1The use of slow infusion rates, the administration of venkata-transfusion diuretics where not clinically contraindicated, and/or the transfusion of ???split units of PRBCs should be considered in any future hemotherapy interventions. Consult [facility] if any questions. Social History Social History Type Response Smoking Status Former smoker, quit more rebel n 30 days ago entered on: 12/26/20 Sex Patient Care team information PersonnelName: Lesia Cuevas MD Address: Address: [address] [place] [id number]
--- OUTSIDE RECORDS SUMMARY | 2021-12-15 06:04 | XMS_ITS | Continuity of Care Document ---
:1970 Author Organization [facility] Address [address] [place] [address]- Care Team Providers Name Role Phone Blake Recio MD Primary Care Physician Encounter [facility] Date(s): 05/26/19 - 06/26/[address] [address]- [facility] Attending Physician: Davis Gray MD Allergies, Adverse Reactions, Alerts Substance Reaction [...] 05/19/2014:54:00 EDT, Aerosol, Route to Pharmacy Electronically, [id number], [facility]/pharmacy #[id number], 160, cm, 08/16/18 11:38:00 EDT, Hei... [...] 05/30/19 8:43:00 EDT, Route to Pharmacy Electronically, [facility]/pharmacy #[id number], 160, cm, 08/16/18 11:38:00 EDT, Height, 56.7, kg, 08/16/18 11:38:00 EDT, Dry Weight Start Date: 05/30/19 Stop Date: 06/29/19 Status: OrderedhydrOXYzine pamoate 25 mg oral capsule 1 capsule = 25 mg, By Mouth, 4 times a day, PRN as needed for anxiety, # 40 capsule, 11 Refills, Acute 02/23/20 8:43:00 EST, 05/30/19 8:43:00 EDT, Capsule, [facility]/pharmacy #2070, 160, cm, 08/16/18 11:38:00 EDT, Height, 56.7, [...] 11 Refills, Maintenance, 05/30/19 8:43:00 EDT, Tablet, [facility]/pharmacy #2070, 1 tablet By Mouth Daily, 160, [...] Refills, Maintenance, 05/30/19 8:43:00 EDT, EC Capsule, [facility]/pharmacy #2070, 160, cm, 08/16/18 11:38:00 EDT, Height, 56.7, kg, 08/16/18 11:38:00 EDT, Dry Weight Start Date: 05/30/19 Status: OrderedPercocet 7.5 mg-325 mg oral tablet 2 tablet, By Mouth, Every 4 hours, # 84 tablet, 0 Refills, Maintenance, 06/24/19 10:31:00 EDT, [facility], 2 tablet By Mouth Every 4 hours, 160, cm, 08/16/18 11:38:00 EDT, Height, 56.7, kg, 08/16/18 11:38:00 EDT, Dry Weight Start Date: 06/24/19 Status: OrderedPercocet 7.5 mg-325 mg oral tablet 2 tablet, By Mouth, Every 4 hours, # 84 tablet, 0 Refills, Maintenance, 06/24/19 11:01:00 EDT, partial refill upon patient request, Dry Weight Start Date: 06/24/19 Status: OrderedPercocet 7.5/325 325 mg-7.5 mg oral tablet 2 tablet, By Mouth, Every 4 hours, PRN Pain , Severe, # 84 tablet, 0 Refills, Maintenance, 05/12/19 12:11:00 EDT, Tablet, [facility], Pt may partial fill upon request, 2 tablet By Mouth Every 4 hours,PRN:Pain , Severe, 160, cm, ... Start Date: 05/12/19 Status: OrderedPercocet 7.5/325 325 mg-7.5 mg oral tablet 2 tablet, By Mouth, Every 4 hours, PRN for pain, # 84 tablet, 0 Refills, Maintenance, 05/19/19 16:03:00 EDT, Tablet, [facility], Partial fill upon patient request, 2 tablet By Mouth Every 4 hours,PRN:for pain, 160, cm, 08/16/18 11:38:... Start Date: 05/19/19 Status: Orderedsertraline 25 mg oral tablet 1 tablet = 25 mg, By Mouth, Daily, Take 1 tablet daily for 2 weeks, then increase to 2 tablets daily, # 60 tablet, 11 Refills, Maintenance, 05/30/19 8:43:00 EDT, Tablet, [facility]/pharmacy #[id number], 160, cm, 08/16/18 11:38:00 EDT, Height, 56.7, kg, 08/16/18 11... Start Date: 05/30/19 Status: Ordered Problem List Condition Effective Dates Status Health Status Informant Sickle cell anemia(Confirmed) Active Protein-calorie malnutrition, Active moderate(Confirmed) [facility] Care Management Saranya Steward [phone](Confirmed) TACO (transfusion associated Active circulatory overload)(Confirmed)1 1The [...]
--- OUTSIDE RECORDS SUMMARY | 2021-12-15 06:04 | XMS_ITS | Continuity of Care Document ---
:1970 Author Organization [facility] Address [address] [place] [address]- Care Team Providers Name Role Phone Lesia Cuevas MD Primary Care Physician Encounter [facility] Date(s): 03/26/21 - 05/22/[address] [address] Attending Physician: Not on Staff, Attending MD [...] Comment: normal saline diluent added lot number [id number] expires [id number] Comment: Afluria Medications Albuterol (Eqv-Proventil HFA) 90 mcg/inh inhalation aerosol 2 puffs, Inhalation, Every 6 hours, # 18 Gm, 6 Refills, Maintenance, 04/23/21 13:15:00 EST, [facility]/pharmacy #1130, Partial fill upon patient request if the prescription is for a schedule II opioid drug., 164, cm, 04/22/21 13:37:00 EST, Height Start Date: 04/23/21 Status: Orderedalbuterol 0.083% inhalation solution 3 mL = 2.5 mg, Inhalation, Every 6 hours, PRN shortness of breath, For diagnosis of asthma ICD-10 code J45.998, # 100 each, 11 Refills, Maintenance, 04/22/21 14:09:00 EST, Solution, [facility]/pharmacy #1130,164, cm, 04/22/21 13:37:00 EST, Height Start Date: 04/22/21 Status: Orderedallopurinol 100 mg oral tablet 100 mg, 1, tablet, By Mouth, Daily, # 30 tablet, Refills 5, Tot. Refills 5, Maintenance, 12/21/20 17:44:00 EDT, Route to Pharmacy Electronically, [facility]/pharmacy #1130, 164, cm, 12/21/20 14:12:00 EDT, Height Start Date: 12/21/20 Status: Orderedapixaban 5 mg oral tablet 1 tablet = 5 mg, By Mouth, 2 times a day, # 60 tablet, 5 Refills, Maintenance, 12/21/20 17:44:00 EDT, Tablet, [facility]/pharmacy #1130, Partial fill upon patient request if the prescription is for a scheduleII opioid drug., 164, cm, 12/21/20 14:12:00 EDT,... Start Date: 12/21/20 Status: OrderedAtivan 1 mg oral tablet 1 tablet = 1 mg, By Mouth, 2 times a day, [facility] checked okay to fill on 03/08, # 56 tablet, 0 Refills, Maintenance, 03/08/21 18:22:00 EST, Tablet, [facility]/pharmacy #1130, 164, cm, 12/21/20 14:12:00 EDT, Height Start Date: 03/08/21 Status: OrderedBenadryl 25 mg oral capsule 1 capsule = 25 mg, By Mouth, 3 times a day, PRN for itching, # 100 capsule, 1 Refills, Maintenance, 03/14/21 18:27:00 EST, Capsule, [facility]/pharmacy #1130, Partial fill upon patient request [...] 11 Refills, Maintenance, 12/23/20 22:41:00 EDT, Lotion, [facility]/pharmacy #1130, Partial fill upon patient request if the prescription isfor a schedule II opioid drug., 1 application Top... Start Date: 12/23/20 Status: Orderedfurosemide 20 mg oral tablet 1, tablet, By Mouth, Daily, # 30 tablet, Refills 0, Route to Pharmacy Electronically, [facility], 164, cm, 12/21/20 14:12:00 EDT, Height Start Date: 01/15/21 Status: Orderedgabapentin 300 mg oral capsule 300 mg, 1, capsule, By Mouth, 3 times a day, # 90 capsule, Refills 5, Tot. Refills 5, Maintenance, 04/22/21 17:04:00 EST, Route to Pharmacy Electronically, [facility]/pharmacy #1130, 164, cm, 04/22/21 13:37:00 EST, Height Start Date: 04/22/21 Status: Orderedhydroxyurea 500 mg oral capsule 1 capsule = 500 mg, By Mouth, 2 times a day, for 30 days, # 60 capsule, 5 Refills, Acute 06/19/21 17:53:00 EDT, 12/21/20 17:53:00 EDT, Capsule, [facility]/pharmacy #1130, Partial fill upon patient request if the prescription is for a schedule II opioid drug.... Start Date: 12/21/20 Stop Date: 06/19/21 Status: Orderedloratadine 10 mg oral tablet 10 mg, 1, tablet, By Mouth, Daily, # 90 tablet, Refills 11, Tot. Refills 11, Maintenance, 04/22/21 13:57:00 EST, Route to Pharmacy Electronically, [facility]/pharmacy #1130, 164, cm, 04/22/21 13:37:00 EST, [...] 11 Refills, Maintenance, 12/21/20 17:54:00 EDT, Tablet, [facility]/pharmacy #1130, Partial fill upon patient request [...] 0 Refills, Maintenance, 04/22/21 14:12:00 EST, Gum, [facility]/pharmacy #1130, 164, cm, 04/22/21 13:37:00 EST, [...] Moderate, # 84 tablet, 0 Refills, Maintenance, 05/23/21 11:22:00 EDT, Tablet, [facility], Partial fill upon patient request if the prescription is for a schedule II opioid drug., 2 tablet By Mouth... Start Date: 05/23/21 Stop Date: 05/30/21 Status: OrderedPercocet 7.5 mg-325 mg oral tablet 2 tablet, By Mouth, Every 4 hours, PRN Pain , Moderate, for 7 days, # 84 tablet, 0 Refills, Hard Stop 05/23/21 11:22:00 EDT, 05/16/21 11:22:00 EDT, Tablet, [facility], Partial fill upon patientrequest if the prescription is for a schedule II... Start Date: 05/16/21 Stop Date: 05/23/21 Status: OrderedPortable oxygen compressor Portable oxygen compressor, [...] 0 Refills, Maintenance, 03/13/21 13:09:00 EST, Tablet, [facility]/pharmacy #1130, Partial fill upon patient request if the prescription is for a schedule II opioid drug., 164, cm,... Start Date: 03/13/21 Status: OrderedSEROquel 25 mg oral tablet 25 mg, 1, tablet, By Mouth, 2 times a day, PRN, # 60 tablet, Refills 2, Tot. Refills 2, Maintenance,Agitation, 03/21/21 17:43:00 EST, Route to Pharmacy Electronically, [facility]/pharmacy #1130, 164, cm, 12/21/20 14:12:00 EDT, Height Start Date: 03/21/21 Stop Date: 06/19/21 Status: OrderedZoloft 50 mg oral tablet 1 tablet = 50 mg, By Mouth, Daily, # 30 tablet, 5 Refills, Maintenance, 12/21/20 17:43:00 EDT, Tablet, [facility]/pharmacy #1130, Partial fill upon patient request [...]
--- OUTSIDE RECORDS SUMMARY | 2021-12-15 06:05 | XMS_ITS | Continuity of Care Document ---
:1970 Author Organization [facility] Address [address] [place] [address]- Care Team Providers Name Role Phone Lesia Cuevas MD Primary Care Physician Encounter [facility] Date(s): 04/19/21 - 05/19/[address] [address] Allergies, Adverse Reactions, Alerts Substance Reaction [...] Comment: normal saline diluent added lot number [id number] expires Result Comment: Afluria Medications Albuterol (Eqv-Proventil HFA) 90 mcg/inh inhalation aerosol 2 puffs, Inhalation, Every 6 hours, # 18 Gm, 6 Refills, Maintenance, 04/23/21 13:15:00 EST, [facility]/pharmacy #1130, Partial fill upon patient request if the prescription is for a schedule II opioid drug., 164, cm, 04/22/21 13:37:00 EST, Height Start Date: 04/23/21 Status: Orderedalbuterol 0.083% inhalation solution 3 mL = 2.5 mg, Inhalation, Every 6 hours, PRN shortness of breath, For diagnosis of asthma ICD-10 code J45.998, # 100 each, 11 Refills, Maintenance, 04/22/21 14:09:00 EST, Solution, [facility]/pharmacy #1130,164, cm, 04/22/21 13:37:00 EST, Height Start Date: 04/22/21 Status: Orderedallopurinol 100 mg oral tablet 100 mg, 1, tablet, By Mouth, Daily, # 30 tablet, Refills 5, Tot. Refills 5, Maintenance, 12/21/20 17:44:00 EDT, Route to Pharmacy Electronically, [facility]/pharmacy #1130, 164, cm, 12/21/20 14:12:00 EDT, Height Start Date: 12/21/20 Status: Orderedapixaban 5 mg oral tablet 1 tablet = 5 mg, By Mouth, 2 times a day, # 60 tablet, 5 Refills, Maintenance, 12/21/20 17:44:00 EDT, Tablet, [facility]/pharmacy #1130, Partial fill upon patient request if the prescription is for a scheduleII opioid drug., 164, cm, 12/21/20 14:12:00 EDT,... Start Date: 12/21/20 Status: OrderedAtivan 1 mg oral tablet 1 tablet = 1 mg, By Mouth, 2 times a day, [facility] checked okay to fill on 03/08, # 56 tablet, 0 Refills, Maintenance, 03/08/21 18:22:00 EST, Tablet, [facility]/pharmacy #1130, 164, cm, 12/21/20 14:12:00 [...] tablet, Refills 0, Route to Pharmacy Electronically, [facility], 164, cm, 12/21/20 14:12:00 EDT, Height Start Date: 01/15/21 Status: Orderedgabapentin 300 mg oral capsule 300 mg, 1, capsule, By Mouth, 3 times a day, # 90 capsule, Refills 5, Tot. Refills 5, Maintenance, 04/22/21 17:04:00 EST, Route to Pharmacy Electronically, [facility]/pharmacy #1130, 164, cm, 04/22/21 13:37:00 [...] 04/22/21 13:57:00 EST, Route to Pharmacy Electronically, [facility]/pharmacy #1130, 164, cm, 04/22/21 13:37:00 [...] 11 Refills, Maintenance, 12/21/20 17:54:00 EDT, Tablet, [facility]/pharmacy #1130, Partial fill upon patient [...] 0 Refills, Maintenance, 04/22/21 14:12:00 EST, Gum, [facility]/pharmacy #1130, 164, cm, 04/22/21 13:37:00 [...] Refills, Maintenance, 12/21/20 17:43:00 EDT, CR Tablet, [facility]/pharmacy #1130, 164, cm, 12/21/20 14:12:00 EDT, Height Start Date: 12/21/20 Status: OrderedPercocet 7.5 mg-325 mg oral tablet 2 tablet, By Mouth, Every 4 hours, PRN Pain , Moderate, # 84 tablet, 0 Refills, Maintenance, 05/16/21 11:22:00 EDT, Tablet, [facility], Partial fill upon patient request if the prescription is for a schedule II opioid drug., 2 tablet By Mouth... Start Date: 05/16/21 Stop Date: 05/23/21 Status: [...] tablet, 0 Refills, Maintenance, 12/21/20 17:43:00EDT, Tablet, [facility]/pharmacy #1130, 164, cm, 12/21/20 14:12:00 [...] 03/21/21 17:43:00 EST, Route to Pharmacy Electronically, [facility]/pharmacy #1130, 164, cm, 12/21/20 14:12:00 EDT, Height Start Date: 03/21/21 Stop Date: 06/19/21 Status: OrderedZoloft 50 mg oral tablet 1 tablet = 50 mg, By Mouth, Daily, # 30 tablet, 5 Refills, Maintenance, 12/21/20 17:43:00 EDT, Tablet, [facility]/pharmacy #1130, Partial fill upon patient [...]
--- OUTSIDE RECORDS SUMMARY | 2021-12-15 06:05 | XMS_ITS | Continuity of Care Document ---
:[address] [facility] Address [address] [place] [address]- Care Team Providers Name Role Phone Lesia Cuevas MD Primary Care Physician Encounter [facility] Date(s): 03/20/20 - 04/19/20 [facility] [address] [place] [address]- Attending Physician: Jamaica Aguero Admitting Physician: Jamaica [...] 11 Refills, Maintenance, 05/30/19 8:43:00 EDT,Solution, [facility], 160, cm, 08/16/18 11:38:00 EDT, Height, 56.7, kg, 08/16/18 11:38:00 EDT, Dry Weight Start Date: 05/30/19 Status: Orderedalbuterol CFC free 90 mcg/inh inhalation aerosol 2, puffs, Inhalation, 3 times a day, PRN, # 1 each, Refills 6, Tot. Refills 6, Maintenance, 05/19/2014:54:00 EDT, Aerosol, Route to Pharmacy Electronically, [id number], [facility]/pharmacy #2071, 160, cm, 08/16/18 11:38:00 EDT, Hei... [...] 06/27/19 10:33:00 EDT, Route to Pharmacy Electronically, [facility]/pharmacy #2071, 160, cm, 08/16/18 11:38:00 EDT, Height, 56.7, kg, 08/16/18 11:38:00 EDT, Dry Weight Start Date: 06/27/19 Stop Date: 12/24/19 Status: OrderedGive medium briefs to use daily for urinary incontinence Give medium briefs to use daily for urinary incontinence, See Instructions, # 1 pack/packet, Refills0, Tot. Refills 0, Maintenance, Use daily for urinary incontinence R 39.81. Please give 90 briefs per months for 1 year, 03/30/20 18:25:00 EST, Supply Start Date: 03/30/20 Status: OrderedMiraLax oral powder for reconstitution = [...] Refills, Maintenance, 08/24/19 9:24:00 EDT, EC Capsule, [facility]/pharmacy #2071, 160, cm, 08/16/18 11:38:00 EDT, Height, 56.7, kg, 08/16/18 11:38:00 EDT, Dry Weight Start Date: 08/24/19 Status: OrderedPercocet 7.5 mg-325 mg oral tablet 2 tablet, By Mouth, Every 4 hours, PRN as needed for pain, for 7 days, # 84 tablet, 0 Refills, Acute04/25/20 14:04:00 EST, 04/18/20 14:04:00 EST, Tablet, [facility], Partial fill upon patient request if the prescription is for a schedul... Start Date: 04/18/20 Stop Date: 04/25/20 Status: OrderedPercocet 7.5 mg-325 mg oral tablet 2 tablet, By Mouth, Every 4 hours, dx: sickle cell pain, # 84 tablet, 0 Refills, Maintenance, 03/28/20 14:32:00 EST, [facility], partial refill upon patient request, 2 tablet By Mouth Every 4 hours,x7 days,Instr:dx: sickle cell pain,... Start Date: 03/28/20 Stop Date: 04/04/20 Status: OrderedPlease give 1 commode for urinary incontinence to use daily. Please give 1 commode for urinary incontinence to use daily., See Instructions, # 1 each, Refills 0,Tot. Refills 0, Maintenance, For urinary incontinence R39.81. Please give on commode that can support 200lbs., 03/30/20 18:27:00 EST, Supply Start Date: 03/30/20 Status: Orderedsertraline 25 mg oral tablet 1 tablet = 25 mg, By Mouth, Daily, Take 1 tablet daily for 2 weeks, then increase to 2 tablets daily, # 60 tablet, 11 Refills, Maintenance, 05/30/19 8:43:00 EDT, Tablet, [id number], 160, cm, 08/16/18 11:38:00 EDT, Height, 56.7, kg, 08/16/18 11... Start Date: 05/30/19 Status: Ordered Problem List Condition Effective Dates Status Health Status Informant Depression(Confirmed) Active Sickle cell anemia(Confirmed) Active Protein-calorie malnutrition, Active moderate(Confirmed) N [facility] [phone](Confirmed) TACO (transfusion associated Active circulatory overload)(Confirmed)1 1The [...]
--- OUTSIDE RECORDS SUMMARY | 2021-12-15 06:05 | XMS_ITS | Continuity of Care Document ---
:1970 Author Organization [facility] Address [address] [place] [address]- Care Team Providers Name Role Phone Lesia Cuevas MD Primary Care Physician Encounter [facility] Date(s): 10/15/20 - 11/14/[address] [address]- Allergies, Adverse Reactions, Alerts Substance Reaction Severity [...] 11 Refills, Maintenance, 05/30/19 8:43:00 EDT,Solution, [id number], 160, cm, 08/16/18 11:38:00 EDT, Height, 56.7, kg, 08/16/18 11:38:00 EDT, Dry Weight Start Date: 05/30/19 Status: Orderedallopurinol 100 mg oral tablet TK 1 T PO QD Start Date: 08/03/20 Status: Orderedallopurinol 100 mg oral tablet 100 mg, 1, tablet, By Mouth, Daily, # 30 tablet, Refills 0, Tot. Refills 0, Maintenance, 11/02/20 19:30:00 EDT, Route to Pharmacy Electronically, [facility]/pharmacy #[id number], Partial fill upon patient [...] 0 Refills, Maintenance, 11/02/20 19:28:00 EDT, Tablet, [facility]/pharmacy #[id number], Partial fill upon patient [...] 10:33:00 EDT, Route to Pharmacy Electronically, [facility]/pharmacy #[id number], 160, cm, 08/16/18 11:38:00 [...] Moderate, # 84 tablet, 0 Refills, Maintenance, 11/08/20 16:02:00 EDT, Tablet, [facility], Partial fill upon patient request if the prescription is for a schedule II opioid drug., 2 tablet... Start Date: 11/08/20 Stop Date: 11/15/20 Status: OrderedpredniSONE 10 mg oral tablet 2 tablet = 20 mg, By Mouth, Daily, with food, # 14 tablet, 0 Refills, Maintenance, 11/02/20 19:26:00EDT, Tablet, [facility]/pharmacy #[id number], Partial fill upon patient [...]
--- OUTSIDE RECORDS SUMMARY | 2021-12-15 06:05 | XMS_ITS | Continuity of Care Document ---
:1970 Author Organization [facility] Address [address] [place] [address]- Care Team Providers Name Role Phone Blake Recio MD Primary Care Physician [place] [facility] [place] - 06/12/[address] [address]- [facility] Attending Physician: Danya Austin MD Admitting Physician: [...] 05/19/2014:54:00 EDT, Aerosol, Route to Pharmacy Electronically, [id number], [facility]/pharmacy #[id number], [...] 05/30/19 8:43:00 EDT, Route to Pharmacy Electronically, [facility] [...] 02/23/20 8:43:00 EST, 05/30/19 8:43:00 EDT, Capsule, [facility]/pharmacy #[id number], 160, cm, 08/16/18 11:38:00 EDT, Height, [...] 11 Refills, Maintenance, 05/30/19 8:43:00 EDT, Tablet, [facility]/pharmacy #[id number], 1 tablet By Mouth Daily, [...] Refills, Maintenance, 05/30/19 8:43:00 EDT, EC Capsule, [facility]/pharmacy #[id number], 160, cm, 08/16/18 11:38:00 EDT, Height, 56.7, kg, 08/16/18 11:38:00 EDT, Dry Weight Start Date: 05/30/19 Status: OrderedPercocet 7.5 mg-325 mg oral tablet 2 tablet, By Mouth, Every 4 hours, # 84 tablet, 0 Refills, Maintenance, 06/10/19 11:49:00 EDT, [facility], 2 tablet By Mouth Every 4 hours, 160, cm, 08/16/18 11:38:00 EDT, Height, 56.7, kg, 08/16/18 11:38:00 EDT, Dry Weight Start Date: 06/10/19 Status: OrderedPercocet 7.5/325 325 mg-7.5 mg oral tablet 2 tablet, By Mouth, Every 4 hours, PRN Pain , Severe, # 84 tablet, 0 Refills, Maintenance, 05/12/19 12:11:00 EDT, Tablet, [facility], Pt may partial fill upon request, 2 tablet By Mouth Every 4 hours,PRN:Pain , Severe, 160, cm, 08/16/... Start Date: 05/12/19 Status: OrderedPercocet 7.5/325 325 mg-7.5 mg oral tablet 2 tablet, By Mouth, Every 4 hours, PRN for pain, # 84 tablet, 0 Refills, Maintenance, 05/19/19 16:03:00 EDT, Tablet, [facility], Partial fill upon patient request, 2 tablet By Mouth Every 4 hours,PRN:for pain, 160, cm, 08/16/18 11:38:... Start Date: 05/19/19 Status: Orderedsertraline 25 mg oral tablet 1 tablet = 25 mg, By Mouth, Daily, Take 1 tablet daily for 2 weeks, then increase to 2 tablets daily, # 60 tablet, 11 Refills, Maintenance, 05/30/19 8:43:00 EDT, Tablet, [facility]/pharmacy #[id number], 160, cm, 08/16/18 11:38:00 EDT, Height, 56.7, kg, 08/16/18 11... Start Date: 05/30/19 Status: Ordered Problem List Condition Effective Dates Status Health Status Informant Sickle cell anemia(Confirmed) Active Protein-calorie malnutrition, Active moderate(Confirmed) [facility] Care Management Saranya Steward [phone](Confirmed) TACO (transfusion associated Active circulatory overload)(Confirmed)1 1The [...]
--- OUTSIDE RECORDS SUMMARY | 2021-12-15 06:05 | XMS_ITS | Continuity of Care Document ---
:1970 Author Organization [facility] Address [address] [place] [address]- Care Team Providers Name Role Phone Lesia Cuevas MD Primary Care Physician Encounter [facility] Date(s): 03/13/21 - 04/12/[address] [address]- Allergies, Adverse Reactions, Alerts Substance Reaction Severity [...] Comment: normal saline diluent added lot number [id number] expires Result Comment: Afluria Medications albuterol 0.083% inhalation solution 3 mL = 2.5 mg, Inhalation, Every 6 hours, PRN shortness of breath, For diagnosis of asthma ICD-10 code J45.998, # 100 each, 11 Refills, Maintenance, 03/15/21 17:29:00 EST, Solution, [facility]/pharmacy #[id number],164, cm, 03/12/21 15:25:00 EST, Height Start Date: 03/15/21 Status: Orderedallopurinol 100 mg oral tablet 100 mg, 1, tablet, By Mouth, Daily, # 30 tablet, Refills 5, Tot. Refills 5, Maintenance, 12/21/20 17:44:00 EDT, Route to Pharmacy Electronically, [facility]/pharmacy #[id number], 164, cm, 12/21/20 14:12:00 EDT, Height Start Date: 12/21/20 Status: Orderedapixaban 5 mg oral tablet 1 tablet = 5 mg, By Mouth, 2 times a day, # 60 tablet, 5 Refills, Maintenance, 12/21/20 17:44:00 EDT, Tablet, [facility]/pharmacy #[id number], Partial fill upon patient request if the prescription is for a scheduleII opioid drug., 164, cm, 12/21/20 14:12:00 EDT,... Start Date: 12/21/20 Status: OrderedAtivan 1 mg oral tablet 1 tablet = 1 mg, By Mouth, 2 times a day, [place] checked okay to fill on 03/08, # 56 tablet, 0 Refills, Maintenance, 03/08/21 18:22:00 EST, Tablet, [facility]/pharmacy #[id number], 164, cm, 12/21/20 14:12:00 EDT, Height Start Date: 03/08/21 Status: OrderedBenadryl 25 mg oral capsule 1 capsule = 25 mg, By Mouth, 3 times a day, PRN for itching, # 100 capsule, 1 Refills, Maintenance, 03/14/21 18:27:00 EST, Capsule, [facility]/pharmacy #[id number], Partial fill upon patient [...] 11 Refills, Maintenance, 12/23/20 22:41:00 EDT, Lotion, [facility]/pharmacy #[id number], Partial fill upon patient request if the prescription isfor a schedule II opioid drug., 1 application Top... Start Date: 12/23/20 Status: Orderedfurosemide 20 mg oral tablet 1, tablet, By Mouth, Daily, # 30 tablet, Refills 0, Route to Pharmacy Electronically, [id number], 164, cm, 12/21/20 14:12:00 EDT, Height Start Date: 01/15/21 Status: Orderedgabapentin 100 mg oral capsule 100 mg, 1, capsule, By Mouth, 3 times a day, PRN, # 90 capsule, Refills 1, Tot. Refills 1, Maintenance, Pain , Moderate, 12/21/20 17:54:00 EDT, Route to Pharmacy Electronically, [facility]/pharmacy #[id number], Partial fill upon patient request if the prescription... Start Date: 12/21/20 Stop Date: 02/19/21 Status: Orderedhydroxyurea 500 mg oral capsule 1 capsule = 500 mg, By Mouth, 2 times a day, for 30 days, # 60 capsule, 5 Refills, Acute 06/19/21 17:53:00 EDT, 12/21/20 17:53:00 EDT, Capsule, [facility]/pharmacy #[id number], Partial fill upon patient request if the prescription is for a schedule II opioid drug.... Start Date: 12/21/20 Stop Date: 06/19/21 Status: OrderedhydrOXYzine hydrochloride 50 mg oral tablet 1 tablet = 50 mg, By Mouth, 3 times a day, PRN as needed for anxiety, for 30 days, # 90 tablet, 3 Refills, Acute 04/20/21 17:44:00 EST, 12/21/20 17:44:00 EDT, Tablet, [facility]/pharmacy #[id number], Partial fill upon patient [...] 11 Refills, Maintenance, 12/21/20 17:54:00 EDT, Tablet, [facility]/pharmacy #[id number], Partial fill upon patient [...] Refills, Maintenance, 12/21/20 17:43:00 EDT, CR Tablet, [facility]/pharmacy #[id number], 164, cm, 12/21/20 14:12:00 EDT, Height Start Date: 12/21/20 Status: OrderedPercocet 7.5 mg-325 mg oral tablet 2 tablet, By Mouth, Every 4 hours, PRN Pain , Moderate, # 84 tablet, 0 Refills, Maintenance, 04/11/21 11:22:00 EST, Tablet, [facility]/pharmacy #[id number], Partial fill upon patient [...] tablet, 0 Refills, Maintenance, 12/21/20 17:43:00EDT, Tablet, [facility]/pharmacy #[id number], 164, cm, 12/21/20 14:12:00 EDT, Height Start Date: 12/21/20 Stop Date: 01/20/21 Status: OrderedpredniSONE 5 mg oral tablet See Instructions, alternate 4 tabs/d with 3 tabs/d for 2 weeks, # 120 tablet, 0 Refills, Maintenance, 03/13/21 13:09:00 EST, Tablet, [facility]/pharmacy #[id number], Partial fill upon patient request if the prescription is for a schedule II opioid drug., 164, cm,... Start Date: 03/13/21 Status: OrderedSEROquel 25 mg oral tablet 25 mg, 1, tablet, By Mouth, 2 times a day, PRN, # 60 tablet, Refills 2, Tot. Refills 2, Maintenance,Agitation, 03/21/21 17:43:00 EST, Route to Pharmacy Electronically, [facility]/pharmacy #[id number], 164, cm, 12/21/20 14:12:00 [...]
--- OUTSIDE RECORDS SUMMARY | 2021-12-15 06:05 | XMS_ITS | Continuity of Care Document ---
:1970 Author Organization [facility] Address [address] [place] [address]- Care Team Providers Name Role Phone Lesia Cuevas MD Primary Care Physician [place] [facility] [place](s): 01/31/21 - 03/06/[address] [address]- Attending Physician: Joyce Ireland MD Admitting Physician: [...] Comment: normal saline diluent added lot number [id number] expires Result Comment: Afluria Medications albuterol 0.083% [...] 12/21/20 17:44:00 EDT, Route to Pharmacy Electronically, [facility]/pharmacy #[id number], 164, cm, 12/21/20 14:12:00 EDT, Height Start Date: 12/21/20 Status: Orderedapixaban 5 mg oral tablet 1 tablet = 5 mg, By Mouth, 2 times a day, # 60 tablet, 5 Refills, Maintenance, 12/21/20 17:44:00 EDT, Tablet, [facility]/pharmacy #1130, Partial fill upon patient request if the prescription is for a scheduleII opioid drug., 164, cm, 12/21/20 14:12:00 EDT,... Start Date: 12/21/20 Status: OrderedAtivan 1 mg oral tablet 1 tablet = 1 mg, By Mouth, 2 times a day, [place] checked on 01/16, okay to fill on 01/16 or after, # 56 tablet, 0 Refills, Maintenance, 01/16/21 19:40:00 EST, Tablet, [facility]/pharmacy #[id number], 164, cm, 12/21/20 14:12:00 EDT, Height Start Date: 01/16/21 Status: OrderedCompression Stockings See Instructions, # 2 each, Maintenance, surgical, knee length 20-30 mm Hg Dx: Peripheral edema (R60.9), 12/21/20 17:13:00 EDT, Supply Start Date: 12/21/20 Status: OrderedEucerin Plus topical lotion 1 application, Topically, 2 times a day, PRN for dry skin, # 180 mL, 11 Refills, Maintenance, 12/23/20 22:41:00 EDT, Lotion, [facility]/pharmacy #[id number], Partial fill upon patient request if the prescription isfor a schedule II opioid drug., 1 application Top... Start Date: 12/23/20 Status: Orderedfurosemide 20 mg oral tablet 1, tablet, By Mouth, Daily, # 30 tablet, Refills 0, Route to Pharmacy Electronically, [id number], 164, cm, 12/21/20 14:12:00 EDT, Height Start [...] 06/19/21 17:53:00 EDT, 12/21/20 17:53:00 EDT, Capsule, [facility]/pharmacy #1130, Partial fill upon patient request if the prescription is for a schedule II opioid drug.... Start Date: 12/21/20 Stop Date: 06/19/21 Status: OrderedhydrOXYzine hydrochloride 50 mg oral tablet 1 tablet = 50 mg, By Mouth, 3 times a day, PRN as needed for anxiety, for 30 days, # 90 tablet, 3 Refills, Acute 04/20/21 17:44:00 EST, 12/21/20 17:44:00 EDT, Tablet, [facility]/pharmacy #1130, Partial fill upon patient request [...] 11 Refills, Maintenance, 12/21/20 17:54:00 EDT, Tablet, [facility]/pharmacy #1130, Partial fill upon patient request [...] 03/15/21 17:44:00 EST, 12/21/20 17:44:00 EDT, Gum, [facility]/pharmacy #1130, Partial rao... Start Date: 12/21/20 Stop [...] # 84 tablet, 0 Refills, Hard Stop 03/07/21 16:02:00 EST, 02/28/21 16:02:00 EST, Tablet, [facility]/pharmacy #[id number], Partial fill upon patientrequest if the prescription is for a schedule II... Start Date: 02/28/21 Stop Date: 03/07/21 Status: OrderedPercocet 7.5 mg-325 mg oral tablet 2 tablet, By Mouth, Every 4 hours, PRN Pain , Moderate, # 84 tablet, 0 Refills, Maintenance, 03/07/21 16:02:00 EST, Tablet, [facility]/pharmacy #1130, Partial fill upon patient request if the prescription is for a schedule II opioid drug., 2 tablet By Mouth... Start Date: 03/07/21 Stop Date: 03/14/21 Status: OrderedPortable oxygen compressor Portable oxygen compressor, [...] tablet, 0 Refills, Maintenance, 12/21/20 17:43:00EDT, Tablet, [facility]/pharmacy #1130, 164, cm, 12/21/20 14:12:00 EDT, Height Start Date: 12/21/20 Stop Date: 01/20/21 Status: OrderedSEROquel 25 mg oral tablet 25 mg, 1, tablet, By Mouth, 2 times a day, PRN, # 60 tablet, Refills 2, Tot. Refills 2, Maintenance,Agitation, 03/21/21 17:43:00 EST, Route to Pharmacy Electronically, [facility]/pharmacy #[id number], 164, cm, 12/21/20 14:12:00 EDT, Height Start Date: 03/21/21 Stop Date: 06/19/21 Status: OrderedSEROquel 25 mg oral tablet 25 mg, 1, tablet, By Mouth, 2 times a day, PRN, for 30 days, # 60 tablet, Refills 2, Tot. Refills 2,Hard Stop 03/21/21 17:43:00 EST, Agitation, 12/21/20 17:43:00 EDT, Route to Pharmacy Electronically,[facility]/pharmacy #1130, 164, cm, 12/21/20 14:12:00 ED... Start Date: 12/21/20 Stop Date: 03/21/21 Status: OrderedZoloft 50 mg oral tablet 1 tablet = 50 mg, By Mouth, Daily, # 30 tablet, 5 Refills, Maintenance, 12/21/20 17:43:00 EDT, Tablet, [facility]/pharmacy #[id number], Partial fill upon patient request [...]
--- OUTSIDE RECORDS SUMMARY | 2021-12-15 06:05 | XMS_ITS | Continuity of Care Document ---
:1970 Author Organization [facility] Address [address] [place] [id number]- Care Team Providers Name Role Phone Lesia Cuevas MD Primary Care Physician Encounter [facility] [place] Date(s): 09/17/20 - 01/01/21 [facility] [address] [place] [address]- Discharge Disposition: A-D/C Home Attending Physician: Suzan [...] Comment: normal saline diluent added lot number [id number] expires Result Comment: Afluria Medications albuterol 0.083% inhalation solution 3 mL = 2.5 mg, Inhalation, Every 6 hours, PRN shortness of breath, # 100 each, 11 Refills, Maintenance, 12/21/20 17:44:00 EDT, Solution, [facility]/pharmacy #1130, 164, cm, 12/21/20 14:12:00 EDT, Height Start Date: 12/21/20 Status: Orderedallopurinol 100 mg oral tablet 100 mg, 1, tablet, By Mouth, Daily, # 30 tablet, Refills 5, Tot. Refills 5, Maintenance, 12/21/20 17:44:00 EDT, Route to Pharmacy Electronically, [facility]/pharmacy #[id number], 164, cm, 12/21/20 14:12:00 EDT, Height Start Date: 12/21/20 Status: Orderedapixaban 5 mg oral tablet 1 tablet = 5 mg, By Mouth, 2 times a day, # 60 tablet, 5 Refills, Maintenance, 12/21/20 17:44:00 EDT, Tablet, [facility]/pharmacy #1130, [...] 01/04/21 17:44:00 EST, 12/21/20 17:44:00 EDT, Tablet, [facility]/pharmacy #1130, 164... Start Date: 12/21/20 Stop Date: 01/04/21 Status: OrderedBenadryl 25 mg oral capsule 1 capsule = 25 mg, By Mouth, Every 6 hours, PRN as needed for itching, # 100 capsule, 1 Refills, Acute 01/23/21 9:00:00 EST, 12/21/20 17:53:00 EDT, Tablet, [facility]/pharmacy #1130, [...] 11 Refills, Maintenance, 12/23/20 22:41:00 EDT, Lotion, [facility]/pharmacy #1130, Partial fill upon patient request if the prescription isfor a schedule II opioid drug., 1 application Top... Start Date: 12/23/20 Status: Orderedgabapentin 100 mg oral capsule 100 mg, 1, capsule, By Mouth, 3 times a day, PRN, # 90 capsule, Refills 1, Tot. Refills 1, Maintenance, Pain , Moderate, 12/21/20 17:54:00 EDT, Route to Pharmacy Electronically, [facility]/pharmacy #[id number], Partial fill upon patient request if the prescription... Start Date: 12/21/20 Stop Date: 02/19/21 Status: Orderedhydroxyurea 500 mg oral capsule 1 capsule = 500 mg, By Mouth, 2 times a day, for 30 days, # 60 capsule, 5 Refills, Acute 06/19/21 17:53:00 EDT, 12/21/20 17:53:00 EDT, Capsule, [facility]/pharmacy #[id number], Partial fill [...] tablet, Refills 0, Tot. Refills 0, Maintenance, 10/29/21 17:44:00 EDT, Route to Pharmacy Electronically, [facility]/pharmacy #1130, Partial fill upon patient request ifthe prescription is for a schedule II opioid drug... Start Date: 12/21/20 Stop Date: 01/20/21 Status: Orderedloratadine 10 mg oral tablet 10 mg, 1, tablet, By Mouth, Daily, # 30 tablet, Refills 2, Tot. Refills 2, Maintenance, 12/27/20 9:54:00 EDT, [facility], [facility] 11 Refills, Maintenance, 12/21/20 17:54:00 EDT, Tablet, [facility]/pharmacy #1130, [...] 0 Refills, Maintenance, 12/27/20 16:02:00 EDT, Tablet, [facility]/pharmacy #[id number], Partial fill upon patient request if [...] 12/21/20 17:43:00 EDT, Route to Pharmacy Electronically, [facility]/pharmacy #1130, 164, cm, 12/21/20 14:12:00 EDT, Height Start Date: 12/21/20 Stop Date: 03/21/21 Status: OrderedZoloft 50 mg oral tablet 1 tablet = 50 mg, By Mouth, Daily, # 30 tablet, 5 Refills, Maintenance, 12/21/20 17:43:00 EDT, Tablet, [facility]/pharmacy #[id number], [...]
--- OUTSIDE RECORDS SUMMARY | 2021-12-15 06:05 | XMS_ITS | Continuity of Care Document ---
:1970 Author Organization [facility] Address [address] [place] [address]- Care Team Providers Name Role Phone Lesia Cuevas MD Primary Care Physician Encounter [facility] Date(s): 01/30/21 - 03/01/[address] [address]- Allergies, Adverse Reactions, Alerts Substance Reaction Severity [...] Comment: normal saline diluent added lot number [id number] expires Result Comment: Afluria Medications albuterol 0.083% [...] EDT, [facility], cm, 12/21/20 14:12:00 EDT, Height Start Date: 12/21/20 Status: Orderedapixaban 5 mg oral tablet 1 tablet = 5 mg, By Mouth, 2 times a day, # 60 tablet, 5 Refills, Maintenance, 12/21/20 17:44:00 EDT, Tablet, [facility]/pharmacy #1130, Partial fill upon patient request if the prescription is for a scheduleII opioid drug., 164, cm, 12/21/20 14:12:00 EDT,... Start Date: 12/21/20 Status: OrderedAtivan 1 mg oral tablet 1 tablet = 1 mg, By Mouth, 2 times a day, [place] checked on 01/16, okay to fill on 01/16 or after, # 56 tablet, 0 Refills, Maintenance, 01/16/21 19:40:00 EST, Tablet, [facility]/pharmacy #1130, 164, cm, 12/21/20 14:12:00 EDT, Height [...] Maintenance, 12/23/20 22:41:00 EDT, Lotion, [facility]/pharmacy #1130, Partial fill upon patient request if the prescription isfor a schedule II opioid drug., 1 application Top... Start Date: 12/23/20 Status: Orderedfurosemide 20 mg oral tablet 1, tablet, By Mouth, Daily, # 30 tablet, Refills 0, Route to Pharmacy Electronically, [id number], 164, cm, 12/21/20 14:12:00 EDT, Height Start Date: 01/15/21 Status: Orderedgabapentin 100 mg oral capsule 100 mg, 1, capsule, By Mouth, 3 times a day, PRN, # 90 capsule, Refills 1, Tot. Refills 1, Maintenance, Pain , Moderate, 12/21/20 17:54:00 EDT, Route to Pharmacy Electronically, [facility]/pharmacy #1130, Partial fill upon patient request if the prescription... Start Date: 12/21/20 Stop Date: 02/19/21 Status: Orderedhydroxyurea 500 mg oral capsule 1 capsule = 500 mg, By Mouth, 2 times a day, for 30 days, # 60 capsule, 5 Refills, Acute 06/19/21 17:53:00 EDT, 12/21/20 17:53:00 EDT, Capsule, [facility]/pharmacy #1130, Partial fill upon patient request if the prescription is for a schedule II opioid drug.... Start Date: 12/21/20 Stop Date: 06/19/21 Status: OrderedhydrOXYzine hydrochloride 50 mg oral tablet 1 tablet = 50 mg, By Mouth, 3 times a day, PRN as needed for anxiety, for 30 days, # 90 tablet, 3 Refills, Acute 04/20/21 17:44:00 EST, 12/21/20 17:44:00 EDT, Tablet, [facility]/pharmacy #1130, Partial fill upon patient request if the prescription is for a s... Start Date: 12/21/20 Stop Date: 04/20/21 Status: Orderedloratadine 10 mg oral tablet 10 mg, 1, tablet, By Mouth, Daily, # 30 tablet, Refills 2, Tot. Refills 2, Maintenance, 12/27/20 9:54:00 EDT, Route to Pharmacy Electronically, [facility]/pharmacy #1130, Partial fill upon patient request if [...] Maintenance, 12/21/20 17:54:00 EDT, Tablet, [facility]/pharmacy #1130, Partial fill upon patient request if [...] 03/15/21 17:44:00 EST, 12/21/20 17:44:00 EDT, Gum, [facility]/pharmacy #1130, Partial rao... Start Date: 12/21/20 Stop [...] 12/21/20 17:43:00 EDT, CR Tablet, [facility]/pharmacy #1130, 164, cm, 12/21/20 14:12:00 EDT, Height Start Date: 12/21/20 Status: OrderedPercocet 7.5 mg-325 mg oral tablet 2 tablet, By Mouth, Every 4 hours, PRN Pain , Moderate, # 84 tablet, 0 Refills, Maintenance, 02/28/21 16:02:00 EST, Tablet, [facility]/pharmacy #1130, Partial fill upon patient request if the prescription is for a schedule II opioid drug., 2 tablet By Mouth... Start Date: 02/28/21 Stop Date: 03/07/21 Status: OrderedPortable oxygen compressor Portable oxygen compressor, [...] tablet, 0 Refills, Maintenance, 12/21/20 17:43:00EDT, Tablet, [facility]/pharmacy #1130, 164, cm, 12/21/20 14:12:00 EDT, Height Start Date: 12/21/20 Stop Date: 01/20/21 Status: OrderedSEROquel 25 mg oral tablet 25 mg, 1, tablet, By Mouth, 2 times a day, PRN, # 60 tablet, Refills 2, Tot. Refills 2, Maintenance,Agitation, 12/21/20 17:43:00 EDT, Route to Pharmacy Electronically, [facility]/pharmacy #1130, 164, cm, 12/21/20 14:12:00 EDT, Height Start Date: 12/21/20 Stop Date: 03/21/21 Status: OrderedZoloft 50 mg oral tablet 1 tablet = 50 mg, By Mouth, Daily, # 30 tablet, 5 Refills, Maintenance, 12/21/20 17:43:00 EDT, Tablet, [facility]/pharmacy #1130, Partial fill upon patient request if [...]
--- OUTSIDE RECORDS SUMMARY | 2021-12-15 06:05 | XMS_ITS | Continuity of Care Document ---
:1970 Author Organization [facility] re Address [address] [place] [address]- Care Team Providers Name Role Phone Mason ARCHIBALD, Lesia Primary Care Physician [facility]counter [facility] Date(s): 01/10/20 - 02/09/20 [facility] [address] [place] [address]- Allergies, Adverse Reactions, Alerts Substance Reaction Severity [...] 11 Refills, Maintenance, 05/30/19 8:43:00 EDT,Solution, [id number], 160, cm, 08/16/18 11:38:00 EDT, Height, 56.7, kg, 08/16/18 11:38:00 EDT, Dry Weight Start Date: 05/30/19 Status: Orderedalbuterol CFC free 90 mcg/inh inhalation aerosol 2, puffs, Inhalation, 3 times a day, PRN, # 1 each, Refills 6, Tot. Refills 6, Maintenance, 05/19/2014:54:00 EDT, Aerosol, Route to Pharmacy Electronically, [id number], [facility]/pharmacy #[id number], 160, cm, 08/16/18 11:38:00 EDT, [facility] Start Date: 05/20/19 Status: OrderedEnsure Ensure, See [...] 06/27/19 10:33:00 EDT, Route to Pharmacy Electronically, [facility]/pharmacy #[id number], 160, cm, 08/16/18 11:38:00 EDT, Height, 56.7, kg, 08/16/18 11:38:00 EDT, Dry Weight Start Date: 06/27/19 Stop Date: 12/24/19 Status: OrderedhydrOXYzine pamoate 25 mg oral capsule 1 capsule = 25 mg, By Mouth, 4 times a day, PRN as needed for anxiety, # 40 capsule, 11 Refills, Acute 02/23/20 8:43:00 EST, 05/30/19 8:43:00 EDT, Capsule, [facility]/pharmacy #[id number], 160, cm, 08/16/18 11:38:00 [...] Refills, Maintenance, 08/24/19 9:24:00 EDT, EC Capsule, [facility]/pharmacy #[id number], 160, cm, 08/16/18 11:38:00 EDT, Height, 56.7, kg, 08/16/18 11:38:00 EDT, Dry Weight Start Date: 08/24/19 Status: OrderedPercocet 7.5 mg-325 mg oral tablet 2 tablet, By Mouth, Every 4 hours, dx: sickle cell pain, # 84 tablet, 0 Refills, Maintenance, 02/08/20 9:55:00 EST, [facility], partial refill upon patient request, 2 tablet By Mouth Every 4 hours,x7 days,Instr:dx: sickle cell pain, 1... Start Date: 02/08/20 Stop Date: 02/15/20 Status: Orderedsertraline 25 mg oral tablet 1 tablet = 25 mg, By Mouth, Daily, Take 1 tablet daily for 2 weeks, then increase to 2 tablets daily, # 60 tablet, 11 Refills, Maintenance, 05/30/19 8:43:00 EDT, Tablet, [facility]/pharmacy #[id number], 160, cm, 08/16/18 11:38:00 EDT, Height, 56.7, kg, 08/16/18 11... Start Date: 05/30/19 Status: Ordered Problem List Condition Effective Dates Status Health Status Informant Depression(Confirmed) Active Sickle cell anemia(Confirmed) Active Protein-calorie malnutrition, Active moderate(Confirmed) [phone](Confirmed) TACO (transfusion associated Active circulatory overload)(Confirmed)1 1The [...]
--- OUTSIDE RECORDS SUMMARY | 2021-12-15 06:05 | XMS_ITS | Continuity of Care Document ---
:1970 Author Organization [facility] Address [address] [place] [address]- Care Team Providers Name Role Phone Lesia Cuevas MD Primary Care Physician [facility]counter [facility] Date(s): 10/01/21 - 11/01/[address] [id number] Attending Physician: Not on Staff, [...] Comment: normal saline diluent added lot number [id number] expires Result Comment: Afluria Medications allopurinol 100 [...] 0 Refills, Maintenance, 10/24/21 15:35:00 EDT, Lotion, [facility]/pharmacy #1130, Partial fill upon patient request if the prescription is for a amado... Start Date: 10/24/21 Status: OrderedDaily Lazara oral tablet 1 tablet, By Mouth, Daily Start Date: 07/03/21 Status: OrdereddiphenhydrAMINE 25 mg oral capsule 1 capsule, By Mouth, 3 times a day, PRN NEEDED FOR ITCHING, # 100 capsule, 1 Refills, Maintenance, 10/24/21 12:29:00 EDT, [facility]/pharmacy #1130, 160, cm, 10/24/21 11:46:00 EDT, Height, 72.9, kg, 08/01/21 21:18:00 EDT, Dry Weight Start Date: 10/24/21 Status: OrderedEliquis 5 mg oral tablet 1 tablet = 5 mg, By Mouth, 2 times a day, # 60 tablet, 0 Refills, Maintenance, 10/24/21 12:29:00 EDT, Tablet, [facility]/pharmacy #1130, Partial fill upon patient request if the prescription is for a scheduleII opioid drug., 160, cm, 10/24/21 11:46:00 EDT,... Start Date: 10/24/21 Status: Orderedgabapentin 300 mg oral capsule 300 mg, 1, capsule, By Mouth, 3 times a day, # 90 capsule, Refills 0, Tot. Refills 0, Maintenance, 10/24/21 12:29:00 EDT, Route to Pharmacy Electronically, [facility]/pharmacy #[id number], Partial fill upon patientrequest if the [...] 5 Refills, Maintenance, 10/24/21 12:29:00 EDT, Tablet, [facility]/pharmacy #1130, Partial fill upon patient request if the prescription is for a schedule II opioid drug., 160,... Start Date: 10/24/21 Status: Orderedloratadine 10 mg oral tablet 10 mg, 1, tablet, By Mouth, Daily, # 90 tablet, Refills 11, Tot. Refills 11, Maintenance, 08/29/21 16:56:00 EDT, Route to Pharmacy Electronically, [facility]/pharmacy #1130, Partial fill upon patient request if the prescription is for a schedule II opioid . Start Date: 08/29/21 Status: OrderedLORazepam 1 mg oral tablet 1 tablet = 1 mg, By Mouth, 2 times a day, PRN as needed for anxiety, Limited Rx. Please contact Dr. Cuevas at [facility] if ongoing need., # 5 tablet, 0 Refills, Maintenance, 10/15/21 16:13:00 EDT, Tablet, [facility]/pharmacy #1... Start Date: 10/15/21 Status: Orderednicotine 4 mg oral transmucosal gum See Instructions, CHEW 1 PIECE EVERY 2 HOURS NEEDED FOR SMOKING CESSATION, # 200 gum, 0 Refills, [facility], 160, cm, 08/01/21 21:18:00 EDT, Height, 72.9, kg, 08/01/21 21:18:00 EDT, Dry Weight Start Date: 08/05/21 Status: Orderedomeprazole 20 mg oral enteric coated capsule 1 capsule = 20 mg, By Mouth, Daily, # 90 capsule, 10 Refills, Maintenance, 10/24/21 12:29:00 EDT, [facility]/pharmacy #1130, Partial fill upon patient request if the prescription is for a schedule II opioid drug., 160, cm, 10/24/21 11:46:00 EDT, Height, 72.9... Start Date: 10/24/21 Status: OrderedoxyCODONE 10 mg oral tablet 2 tablet = 20 mg, By Mouth, Every 4 hours, PRN Pain , Moderate, # 84 tablet, 0 Refills, Maintenance,10/29/21 9:52:00 EDT, Tablet, [facility]/pharmacy #1130, Partial fill upon patient request [...] 10/17/21 22:55:00 EDT, Route to Pharmacy Electronically, [facility]/pharmacy #1130, Partial fillupon patient request if the [...] Care Team PersonnelName: Lesia Cuevas MD Address: [address] [place] [address]
--- OUTSIDE RECORDS SUMMARY | 2021-12-15 06:05 | XMS_ITS | Continuity of Care Document ---
:1970 Author Organization [facility] Address [address] [place] [id number]- Care Team Providers Name Role Phone Not on Staff, PCP Primary Care Physician Unavailable Encounter [facility] Date(s): 07/20/21 - 08/03/[address] [address]- Encounter Diagnosis Costochondritis (Final) - 07/20/21 Sickle cell crisis (Final) - 07/20/21 Anemia (Final) - 07/20/21 Discharge Disposition: A-D/C Home Attending Physician: Pati Gomez MD Admitting Physician: Tyron Harmon MD Referring Physician: Not on Staff, Referring [...] Comment: normal saline diluent added lot number [id number] expires Result Comment: Afluria Medications acetaminophen-oxycodone 325 mg-7.5 mg oral tablet 2 tablet, By Mouth, Every 4 hours, PRN Pain , Severe, # 12 tablet, 0 Refills, Maintenance, 08/03/21 13:45:00 EDT, Tablet, Partial fill upon patient request if the prescription is for a schedule II opioid drug. Start Date: 08/03/21 Status: Orderedallopurinol 100 mg oral tablet 100 mg, 1, tablet, By Mouth, Daily Start Date: 07/03/21 Status: OrderedDaily Lazara oral tablet 1 tablet, By Mouth, Daily Start Date: 07/03/21 Status: OrderedDilaudid Inj 1 mg, Injection, IV Push Slowly, Every 2 hours, PRN for Pain , Severe, Routine, 07/26/21 16:03:00 EDT Start Date: 07/26/21 Stop Date: 08/04/21 Status: DiscontinueddiphenhydrAMINE 25 mg oral capsule 1 capsule, By Mouth, 3 times a day, PRN NEEDED FOR ITCHING, # 100 capsule, 1 Refills, [facility], 162, cm, 07/06/21 8:31:00 EDT, Height, 60.1, kg, 07/03/21 13:22:00 EDT, Dry Weight Start Date: 07/06/21 Status: OrderedEliquis 5 mg oral tablet 1 tablet = 5 mg, By Mouth, 2 times a day Start Date: 07/03/21 Status: Orderedgabapentin 300 mg oral capsule 300 mg, Capsule, By Mouth, 08/03/21 15:00:00 EDT Start Date: 08/03/21 Stop Date: 08/03/21 Status: Completedgabapentin 300 mg oral capsule 300 mg, 1, [...] By Mouth, Daily Start Date: 07/03/21 Status: OrderedProAir HFA 90 mcg/inh inhalation aerosol [...] Exam Date Time Procedure Performing Provider Status 07/29/21 9:04 AM Chest Portable Melody Shelton; Auth (Verified ) Notes:(Chest Portable) Reason For Exam: increased hypoxia;Other:RESULT: Chest Portable Chest Portable REASON: increased hypoxia; Clinical Question(s): Pneumonia. COMPARISON: Multiple priors, most recent 07/25/2021 FINDINGS: LINES AND TUBES: Unchanged right IJ Port-A-Cath tip in the lower SVC. LUNGS AND PLEURA: Unchanged coarse interstitial opacities bilaterally with predominance in the lung bases. No pleural effusion. No pneumothorax. HEART, MEDIASTINUM AND GARRETT: Heart is normal in size. Normal upper mediastinal and hilar contour. BONES AND SOFT TISSUES: No acute abnormality. IMPRESSION: Unchanged bilateral coarse interstitial opacities with a predominance in the lung bases, although remains improved from multiple priors in 2020. No overt consolidation. I have personally reviewed the images and I agree with this report. WSN: [id number] Ordering Physician: Randy Squires Dictated By: Rickie Luis DO Dictated Date/Time: 07/29/21 11:11 a Reviewed By: Nathan Gao MD Signed By: Nathan Gao MD Signed Date/Time: 07/29/21 11:16 am Transcribed By: PRASHANT Transcribed Date/Time: 07/29/21 10:35 am Exam Date Time Procedure Performing Provider Status 07/25/21 2:16 PM Chest Portable Erika Whitlock; Auth (Ve rified) Notes:(Chest Portable) Reason For Exam: abnormal breath sounds;Other:RESULT: Chest Portable AP upright portable chest dated July 25, 2021 at 1358 hours. Comparison films are from July 20, 2021. HISTORY: Abnormal breath sounds. FINDINGS: The cardiac silhouette is at the upper limits of normal for size. A Port-A-Cath is presenton the right. Using a jugular approach, the tip of the catheter overlies the distal SVC. No pneumothorax is appreciated. There are patchy airspace infiltrates demonstrated in both lungs slightly worse in the left lower lobe in the right lower lobe. Degenerative changes are noted in the spine and there are postop changes in the mandible, as visualized. IMPRESSION: Bilateral infiltrates certainly consistent with early pneumonia. Examination 27768. Thank you for allowing me to participate in the care of this patient. WSN: [id number] Ordering Physician: Randy Squires Dictated By: Rodrigo Oh MD Dictated Date/Time: 07/25/21 3:14 pm Reviewed By: Rodrigo Oh MD Signed By: Rodrigo Oh MD Signed Date/Time: 07/25/21 3:14 pm Transcribed By: PRASHANT Transcribed Date/Time: 07/25/21 3:03 pm Exam Date Time Procedure Performing Provider Status 07/20/21 2:29 AM Chest Portable Corby Delgado; Margaret (Verified) Notes:(Chest Portable) Reason For Exam: Shortness of BreathRESULT: Chest Portable Chest Portable INDICATION: Chest pain. 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 Worries it may have to do with her port-a-cath that is R upper chest location. COMPARISON: 07/03/2021. FINDINGS: LINES AND TUBES: Right port remains in place. LUNGS AND PLEURA: Decreased lung volumes with bronchovascular crowding. No focal infiltrate. No pleural effusion. No pneumothorax. HEART, MEDIASTINUM AND GARRETT: Heart is normal in size. Normal upper mediastinal and hilar contour. BONES AND SOFT TISSUES: No acute abnormality. IMPRESSION: Decreased volumes. No acute abnormality. WSN: [id number] Ordering Physician: Terrell Saldivar Dictated By: Tony Marroquin MD Dictated Date/Time: 07/20/21 9:18 am Reviewed By: Tony Marroquin MD Signed By: Tony Marroquin MD Signed Date/Time: 07/20/21 9:18 am Transcribed By: PRASHANT Transcribed Date/Time: 07/20/21 9:17 am Vital Signs Most recent to oldest 1 2 3 [Reference Range]: Height 160 cm 160 cm 160 cm (08/01/21 9:18 PM) (07/27/21 3:48 PM) (07/27/21 12:20 PM) Weight 72.9 kg 61.36 kg (08/01/21 9:18 PM) (07/20/21 1:06 PM) Oxygen Saturation [94-100 94 % 95 % 96 % %] (08/03/21 7:00 AM) (08/03/21 4:00 AM) (08/03/21 12: 00 AM) Pulse Rate [55-90 bpm] 83 bpm 86 bpm 87 bpm (08/03/21 7:00 AM) (08/03/21 4:00 AM) (08/03/21 12: 00 AM) Body Mass Index 28.48 23.97 [18.5-24.99] *H* (07/20/21 1:06 PM) (08/01/21 9:18 PM) Blood Pressure 106/66 mm Hg 103/67 mm Hg 115/67 mm Hg [90-138/55-84 mm Hg] (08/03/21 7:00 AM) (08/03/21 4:00 AM) ( 2 12:00 AM) Respiratory Rate [16-30 18 br/min 18 br/min 19 br/mi n br/min] (08/03/21 3:08 PM) (08/03/21 3:08 PM) (08/03/21 1:0 6 PM) Temperature [96.8-100.4 97.7 DegF 97.4 DegF 97.3 Deg F DegF] (08/03/21 7:00 AM) (08/03/21 4:00 AM) (08/03/21 12: 00 AM) Liters per Minute 5 L/min 5 L/min 5 L/min (08/03/21 7:00 AM) (08/03/21 4:00 AM) (08/03/21 12: 00 AM) Mode of Delivery (Oxygen) Nasal cannula Nasal cannula Nasal cannula (08/03/21 7:00 AM) (08/03/21 4:00 AM) (08/03/21 12: 00 AM) Blood pressure sites Arm, left Arm, left Arm, left (08/03/21 4:00 AM) (08/03/21 12:00 AM) (08/02/21 8: 00 PM) Temperature Route Oral Oral Oral (08/03/21 7:00 AM) (08/03/21 4:00 AM) (08/03/21 12: 00 AM) Dry Weight 72.9 kg 61.36 kg (08/01/21 9:18 PM) (07/20/21 1:06 PM) Weight Obtained Via Bed scale Patient/family stated (08/01/21 9:18 PM) (07/20/21 1:06 PM) Dry Weight Obtained Via Bed scale Patient/family stated (08/01/21 9:18 PM) (07/20/21 1:06 PM) Social History Social History Type Response Smoking Status Former smoker, quit more rebel n 30 days ago entered on: 12/26/20 Sex
--- OUTSIDE RECORDS SUMMARY | 2021-12-15 06:05 | XMS_ITS | Continuity of Care Document ---
:1970 Author Organization [facility] Address [address] [place] [address]- Care Team Providers Name Role Phone Lesia Cuevas MD Primary Care Physician Encounter [facility] Date(s): 03/27/21 - 07/10/21 [facility] [address] [place] [address]- Encounter Diagnosis Encounter for screening colonoscopy (Discharge Diagnosis) - 06/07/21 Attending Physician: Michele Joyner MD Admitting Physician: Michele Joyner MD Referring Physician: Lesia Cuevas MD Allergies, Adverse [...] Comment: normal saline diluent added lot number [id number] expires Result Comment: Afluria Medications acetaminophen-oxycodone 325 [...] FOR ITCHING, # 100 capsule, 1 Refills, [facility], 162, cm, 07/06/21 8:31:00 EDT, Height, 60.1, [...] 07/12/21 8:57:00 EDT, 07/09/21 8:57:00 EDT, Tablet, [facility], Partial fill upon patient request if the prescription is for a s... Start Date: 07/09/21 Stop Date: 07/12/21 Status: OrderedoxyCODONE 10 mg oral tablet 2 tablet = 20 mg, By Mouth, Every 4 hours, for 7 days, # 84 tablet, 0 Refills, Acute 07/16/21 13:45:00 EDT, 07/09/21 13:45:00 EDT, Tablet, [facility]/pharmacy #1130, Partial fill upon patient request if the prescription is for a schedule II opioid drug., 162... Start Date: 07/09/21 Stop Date: 07/16/21 Status: OrderedProAir HFA 90 mcg/inh inhalation aerosol [...] Consult Transfusion Medicine Services if any questions. Diagnosis Diagnosis Type Effective Dates Health Clinical Infor mant Status Service Encounter for Discharge 06/07/21 screening Diagnosis colonoscopy Social History Social History Type Response Smoking Status Former smoker, quit more rebel n 30 days ago entered on: 12/26/20 Sex
--- OUTSIDE RECORDS SUMMARY | 2021-12-15 06:05 | XMS_ITS | Continuity of Care Document ---
:1970 Author Organization [facility] re Address [address] [place] [address]- Care Team Providers Name Role Phone Lesia Cuevas MD Primary Care Physician Encounter [facility] Date(s): 03/20/20 - 07/04/20 [facility] [address] [place] [address]- Discharge Disposition: A-D/C Home Attending Physician: Suzan [...] 11 Refills, Maintenance, 05/30/19 8:43:00 EDT,Solution, [id number], 160, cm, 08/16/18 11:38:00 EDT, Height, 56.7, kg, 08/16/18 11:38:00 EDT, Dry Weight Start Date: 05/30/19 Status: Orderedalbuterol CFC free 90 mcg/inh inhalation aerosol 2, puffs, Inhalation, 3 times a day, PRN, # 1 each, Refills 6, Tot. Refills 6, Maintenance, 05/19/2014:54:00 EDT, Aerosol, Route to Pharmacy Electronically, [id number], [facility]/pharmacy #[id number], 160, cm, 08/16/18 11:38:00 EDT, [...] 06/27/19 10:33:00 EDT, Route to Pharmacy Electronically, [facility]/pharmacy #[id number], 160, cm, 08/16/18 11:38:00 EDT, [...] Refills, Maintenance, 08/24/19 9:24:00 EDT, EC Capsule, [facility]/pharmacy #[id number], 160, cm, 08/16/18 11:38:00 EDT, Height, 56.7, kg, 08/16/18 11:38:00 EDT, Dry Weight Start Date: 08/24/19 Status: OrderedPercocet 7.5 mg-325 mg oral tablet 2 tablet, By Mouth, Every 4 hours, dx: sickle cell pain, # 84 tablet, 0 Refills, Maintenance, 07/04/20 15:21:00 EDT, [facility], partial refill upon patient request, 2 tablet By Mouth Every 4 hours,x7 days,Instr:dx: sickle cell pain,... Start Date: 07/04/20 Stop Date: 07/11/20 Status: OrderedPlease give 1 commode for urinary [...] 11 Refills, Maintenance, 05/30/19 8:43:00 EDT, Tablet, [facility]/pharmacy #2071, 160, cm, 08/16/18 11:38:00 EDT, [...]
--- OUTSIDE RECORDS SUMMARY | 2021-12-15 06:05 | XMS_ITS | Continuity of Care Document ---
:1970 Author Organization [facility] Address Unavailable , Care Team Providers Name Role Phone Lesia Cuevas MD Primary Care Physician [place] [facility]06[place] - 06/05/21 [facility] Attending Physician: Jamaica Aguero Admitting Physician: Jamaica Aguero Referring Physician: Jamaica Aguero Allergies, Adverse Reactions, Alerts Substance Reaction Severity [...] Comment: normal saline diluent added lot number [id number] expires Result Comment: Afluria Medications Albuterol (Eqv-Proventil HFA) 90 mcg/inh inhalation aerosol 2 puffs, Inhalation, Every 6 hours, # 18 Gm, 6 Refills, Maintenance, 04/23/21 13:15:00 EST, [facility]/pharmacy #1130, Partial fill upon patient request if the prescription is for a schedule II opioid drug., 164, cm, 04/22/21 13:37:00 EST, Height Start Date: 04/23/21 Status: Orderedalbuterol 0.083% inhalation solution 3 mL = 2.5 mg, Inhalation, Every 6 hours, PRN shortness of breath, For diagnosis of asthma ICD-10 code J45.998, # 100 each, 11 Refills, Maintenance, 04/22/21 14:09:00 EST, Solution, [facility]/pharmacy #1130,164, cm, 04/22/21 13:37:00 EST, Height Start Date: 04/22/21 Status: Orderedallopurinol 100 mg oral tablet 100 mg, 1, tablet, By Mouth, Daily, # 30 tablet, Refills 5, Tot. Refills 5, Maintenance, 12/21/20 17:44:00 EDT, Route to Pharmacy Electronically, [facility]/pharmacy #1130, 164, cm, 12/21/20 14:12:00 EDT, Height Start Date: 12/21/20 Status: Orderedapixaban 5 mg oral tablet 1 tablet = 5 mg, By Mouth, 2 times a day, # 60 tablet, 5 Refills, Maintenance, 12/21/20 17:44:00 EDT, Tablet, [facility]/pharmacy #1130, Partial fill upon patient request if the prescription is for a scheduleII opioid drug., 164, cm, 12/21/20 14:12:00 EDT,... Start Date: 12/21/20 Status: OrderedAtivan 1 mg oral tablet 1 tablet = 1 mg, By Mouth, 2 times a day, [facility] checked okay to fill on 06/04/2021, # 56 tablet, 0 Refills, Maintenance, 06/04/21 6:51:00 EDT, Tablet, [facility]/pharmacy #1130, 164, cm, 04/22/21 13:37:00 EST, Height Start Date: 06/04/21 Status: OrderedBenadryl 25 mg oral capsule 1 capsule = 25 mg, By Mouth, 3 times a day, PRN for itching, # 100 capsule, 1 Refills, Maintenance, 03/14/21 18:27:00 EST, Capsule, [facility]/pharmacy #1130, Partial fill upon patient request if [...] 11 Refills, Maintenance, 12/23/20 22:41:00 EDT, Lotion, [facility]/pharmacy #1130, Partial fill upon patient request if the prescription isfor a schedule II opioid drug., 1 application Top... Start Date: 12/23/20 Status: Orderedfurosemide 20 mg oral tablet 1, tablet, By Mouth, Daily, # 30 tablet, Refills 0, Route to Pharmacy Electronically, [facility], 164, cm, 12/21/20 14:12:00 EDT, Height Start Date: 01/15/21 Status: Orderedgabapentin 300 mg oral capsule 300 mg, 1, capsule, By Mouth, 3 times a day, # 90 capsule, Refills 5, Tot. Refills 5, Maintenance, 04/22/21 17:04:00 EST, Route to Pharmacy Electronically, [facility]/pharmacy #1130, 164, cm, 04/22/21 13:37:00 EST, Height [...] 04/22/21 13:57:00 EST, [facility] to [facility]ically, [facility], 164, cm, 04/22/21 13:37:00 EST, Height [...] 11 Refills, Maintenance, 12/21/20 17:54:00 EDT, Tablet, [facility]/pharmacy #1130, Partial fill upon patient request if [...] 0 Refills, Maintenance, 04/22/21 14:12:00 EST, Gum, [facility]/pharmacy #1130, 164, cm, 04/22/21 13:37:00 EST, Height [...] # 84 tablet, 0 Refills, Hard Stop 06/06/21 11:22:00 EDT, 05/30/21 11:22:00 EDT, Tablet, [facility], Partial fill upon patientrequest if the prescription is for a schedule II... Start Date: 05/30/21 Stop Date: 06/06/21 Status: OrderedPercocet 7.5 mg-325 mg oral tablet 2 tablet, By Mouth, Every 4 hours, PRN Pain , Moderate, # 84 tablet, 0 Refills, Maintenance, 06/06/21 11:22:00 EDT, Tablet, [facility], Partial fill upon patient request if the prescription is for a schedule II opioid drug., 2 tablet By Mouth... Start Date: 06/06/21 Stop Date: 06/13/21 Status: OrderedPortable oxygen compressor Portable oxygen compressor, [...] 03/21/21 17:43:00 EST, Route to Pharmacy Electronically, [facility]/pharmacy #1130, 164, cm, 12/21/20 14:12:00 EDT, Height Start Date: 03/21/21 Stop Date: 06/19/21 Status: OrderedZoloft 50 mg oral tablet 1 tablet = 50 mg, By Mouth, Daily, # 30 tablet, 5 Refills, Maintenance, 12/21/20 17:43:00 EDT, Tablet, [facility]/pharmacy #1130, Partial fill upon patient request if [...]
--- OUTSIDE RECORDS SUMMARY | 2021-12-15 06:05 | XMS_ITS | Continuity of Care Document ---
:1970 Author Organization [facility] Address [address] [place] [address]- Care Team Providers Name Role Phone Lesia Cuevas MD Primary Care Physician [facility] Date[facility]): 09/[facility]/19 - 10/21/[address] [address]- [facility] Allergies, Adverse Reactions, Alerts Substance Reaction Severity [...] 05/19/2014:54:00 EDT, Aerosol, Route to Pharmacy Electronically, [id number], [facility]/pharmacy #[id number], 160, cm, 08/16/18 11:38:00 [...] 06/27/19 10:33:00 EDT, Route to Pharmacy Electronically, [facility]/pharmacy #[id number], 160, cm, 08/16/18 11:38:00 EDT, Height, 56.7, kg, 08/16/18 11:38:00 EDT, Dry Weight Start Date: 06/27/19 Stop Date: 12/24/19 Status: OrderedhydrOXYzine pamoate 25 mg oral capsule 1 capsule = 25 mg, By Mouth, 4 times a day, PRN as needed for anxiety, # 40 capsule, 11 Refills, Acute 02/23/20 8:43:00 EST, 05/30/19 8:43:00 EDT, Capsule, [facility]/pharmacy #[id number], 160, cm, 08/16/18 11:38:00 EDT, [...] 11 Refills, Maintenance, 05/30/19 8:43:00 EDT, Tablet, [facility]/pharmacy #[id number], 1 tablet By Mouth Daily, [...] Refills, Maintenance, 08/24/19 9:24:00 EDT, EC Capsule, [facility]/pharmacy #[id number], 160, cm, 08/16/18 11:38:00 EDT, Height, 56.7, kg, 08/16/18 11:38:00 EDT, Dry Weight Start Date: 08/24/19 Status: OrderedPercocet 7.5 mg-325 mg oral tablet 2 tablet, By Mouth, Every 4 hours, dx: sickle cell pain, # 84 tablet, 0 Refills, Maintenance, 10/20/19 8:19:00 EDT, [facility], partial refill upon patient request, 2 tablet By Mouth Every 4 hours,Instr:dx: sickle cell pain, 160, cm,... Start Date: 10/20/19 Status: Orderedsertraline 25 mg oral tablet 1 tablet = 25 mg, By Mouth, Daily, Take 1 tablet daily for 2 weeks, then increase to 2 tablets daily, # 60 tablet, 11 Refills, Maintenance, 05/30/19 8:43:00 EDT, Tablet, [facility]/pharmacy #[id number], 160, cm, 08/16/18 11:38:00 EDT, Height, 56.7, kg, 08/16/18 11... Start Date: 05/30/19 Status: Ordered Problem List Condition Effective Dates Status Health Status Informant Depression(Confirmed) Active Sickle cell anemia(Confirmed) Active Protein-calorie malnutrition, Active moderate(Confirmed) [facility] [phone](Confirmed) TACO (transfusion associated Active circulatory overload)(Confirmed)1 1The [...]
--- OUTSIDE RECORDS SUMMARY | 2021-12-15 06:05 | XMS_ITS | Continuity of Care Document ---
:1970 Author Organization [facility] Address [address] [place] [id number]- Care Team Providers Name Role Phone Not on Staff, PCP Primary Care Physician Unavailable [facility] Date[facility]s): 05/24/21 - 08/10/[address] [address]- Attending Physician: Joyce Ireland MD Admitting Physician: Joyce Ireland MD Allergies, Adverse Reactions, [...] Comment: normal saline diluent added lot number [id number] expires Result Comment: Afluria Medications allopurinol 100 mg oral tablet 100 mg, 1, tablet, By Mouth, Daily Start Date: 07/03/21 Status: OrderedDaily Lazara oral tablet 1 tablet, By Mouth, Daily Start Date: 07/03/21 Status: OrdereddiphenhydrAMINE 25 mg oral capsule 1 capsule, By Mouth, 3 times a day, PRN NEEDED FOR ITCHING, # 100 capsule, 1 Refills, [id number], 162, cm, 07/06/21 8:31:00 EDT, Height, 60.1, [...] # 200 gum, 0 Refills, [id number], 160, cm, 08/01/21 21:18:00 EDT, Height, 72.9, kg, 08/01/21 21:18:00 EDT, Dry Weight Start Date: 08/05/21 Status: Orderedomeprazole 20 mg oral enteric coated capsule 1 capsule = 20 mg, By Mouth, Daily Start Date: 07/03/21 Status: OrderedoxyCODONE 10 mg oral tablet 2 tablet = 20 mg, By Mouth, Every 4 hours, # 84 tablet, 0 Refills, Maintenance, 08/05/21 11:12:00 EDT, Tablet, [facility]/pharmacy #[id number], Partial fill upon patient [...]
--- OUTSIDE RECORDS SUMMARY | 2021-12-15 06:05 | XMS_ITS | Continuity of Care Document ---
:1970 Author Organization [facility] Address [address] [place] [address]- Care Team Providers Name Role Phone Lesia Cuevas MD Primary Care Physician [facility] Date(s): 04/23/21 - 05/23/[address] [address] Allergies, Adverse Reactions, Alerts Substance Reaction Severity [...] Comment: normal saline diluent added lot number [id number] expires Result Comment: Afluria Medications Albuterol (Eqv-Proventil HFA) 90 mcg/inh inhalation aerosol 2 puffs, Inhalation, Every 6 hours, # 18 Gm, 6 Refills, Maintenance, 04/23/21 13:15:00 EST, [facility]/pharmacy #[id number], Partial fill upon patient request if the prescription is for a schedule II opioid drug., 164, cm, 04/22/21 13:37:00 EST, Height Start Date: 04/23/21 Status: Orderedalbuterol 0.083% inhalation solution 3 mL = 2.5 mg, Inhalation, Every 6 hours, PRN shortness of breath, For diagnosis of asthma ICD-10 code J45.998, # 100 each, 11 Refills, Maintenance, 04/22/21 14:09:00 EST, Solution, [facility]/pharmacy #1130,164, cm, 04/22/21 13:37:00 EST, Height Start Date: 04/22/21 Status: Orderedallopurinol 100 mg oral tablet 100 mg, 1, tablet, By Mouth, Daily, # 30 tablet, Refills 5, Tot. Refills 5, Maintenance, 12/21/20 17:44:00 EDT, Route to Pharmacy Electronically, [facility]/pharmacy #1130, 164, cm, 12/21/20 14:12:00 EDT, Height Start Date: 12/21/20 Status: Orderedapixaban 5 mg oral tablet 1 tablet = 5 mg, By Mouth, 2 times a day, # 60 tablet, 5 Refills, Maintenance, 12/21/20 17:44:00 EDT, Tablet, [facility]/pharmacy #1130, Partial fill upon patient request if the prescription is for a scheduleII opioid drug., 164, cm, 12/21/20 14:12:00 EDT,... Start Date: 12/21/20 Status: OrderedAtivan 1 mg oral tablet 1 tablet = 1 mg, By Mouth, 2 times a day, [facility] checked okay to fill on 03/08, # 56 tablet, 0 Refills, Maintenance, 03/08/21 18:22:00 EST, Tablet, [facility]/pharmacy #1130, 164, cm, 12/21/20 14:12:00 EDT, Height [...] Maintenance, 12/23/20 22:41:00 EDT, Lotion, [facility]/pharmacy #1130, Partial fill upon patient request if the prescription isfor a schedule II opioid drug., 1 application Top... Start Date: 12/23/20 Status: Orderedfurosemide 20 mg oral tablet 1, tablet, By Mouth, Daily, # 30 tablet, Refills 0, Route to Pharmacy Electronically, [id number], 164, cm, 12/21/20 14:12:00 EDT, Height Start Date: 01/15/21 Status: Orderedgabapentin 300 mg oral capsule 300 mg, 1, capsule, By Mouth, 3 times a day, # 90 capsule, Refills 5, Tot. Refills 5, Maintenance, 04/22/21 17:04:00 EST, Route to Pharmacy Electronically, [facility]/pharmacy #1130, 164, cm, 04/22/21 13:37:00 EST, Height [...] 04/22/21 13:57:00 EST, Route to Pharmacy Electronically, [facility]/pharmacy #1130, 164, cm, 04/22/21 13:37:00 EST, Height [...] Maintenance, 12/21/20 17:54:00 EDT, Tablet, [facility]/pharmacy #1130, Partial fill upon patient request if the prescription is for a schedule II opioid drug., 1 tablet By Mouth Daily,x30 days, 164, cm, /... Start Date: 12/21/20 Stop Date: 12/16/21 Status: [...] 0 Refills, Maintenance, 04/22/21 14:12:00 EST, Gum, [facility]/pharmacy #1130, 164, cm, 04/22/21 13:37:00 EST, Height [...] Refills, Maintenance, 12/21/20 17:43:00 EDT, CR Tablet, [facility]/pharmacy #1130, 164, cm, 12/21/20 14:12:00 EDT, Height Start Date: 12/21/20 Status: OrderedPercocet 7.5 mg-325 mg oral tablet 2 tablet, By Mouth, Every 4 hours, PRN Pain , Moderate, # 84 tablet, 0 Refills, Maintenance, 05/23/21 11:22:00 EDT, Tablet, [facility]/pharmacy #1130, Partial fill upon patient request if the prescription is for a schedule II opioid drug., 2 tablet By Mouth... Start Date: 05/23/21 Stop Date: 05/30/21 Status: OrderedPortable oxygen compressor Portable oxygen compressor, [...] Refills, Maintenance, 12/21/20 17:43:00EDT, Tablet, [facility]/pharmacy #1130, 164, cm, 12/21/20 14:12:00 EDT, Height Start Date: 12/21/20 Stop Date: 01/20/21 Status: OrderedpredniSONE 5 mg oral tablet See Instructions, alternate 4 tabs/d with 3 tabs/d for 2 weeks, # 120 tablet, 0 Refills, Maintenance, 03/13/21 13:09:00 EST, Tablet, [facility]/pharmacy #1130, Partial fill upon patient request if the prescription is for a schedule II opioid drug., 164, cm,... Start Date: 03/13/21 Status: OrderedSEROquel 25 mg oral tablet 25 mg, 1, tablet, By Mouth, 2 times a day, PRN, # 60 tablet, Refills 2, Tot. Refills 2, Maintenance,Agitation, 03/21/21 17:43:00 EST, Route to Pharmacy Electronically, [facility]/pharmacy #[id number], 164, cm, 12/21/20 14:12:00 EDT, Height Start Date: 03/21/21 Stop Date: 06/19/21 Status: OrderedZoloft 50 mg oral tablet 1 tablet = 50 mg, By Mouth, Daily, # 30 tablet, 5 Refills, Maintenance, 12/21/20 17:43:00 EDT, Tablet, [facility]/pharmacy #1130, Partial fill upon patient request if [...]
--- OUTSIDE RECORDS SUMMARY | 2021-12-15 06:05 | XMS_ITS | Continuity of Care Document ---
:1970 Author Organization [facility] Address [address] [place] [address]- Care Team Providers Name Role Phone Lesia Cuevas MD Primary Care Physician [facility] Date(s): 08/23/19 - 09/22/[address] [address]- [facility] Attending Physician: [place] Aguero Admitting Physician: [place] [...] 05/19/2014:54:00 EDT, Aerosol, Route to Pharmacy Electronically, [id number], [facility]/pharmacy #[id number], 160, cm, 08/16/18 11:38:00 EDT, Hei... [...] 10:33:00 EDT, Route to Pharmacy Electronically, [facility]/pharmacy #[id number], 160, cm, 08/16/18 11:38:00 EDT, Height, 56.7, kg, 08/16/18 11:38:00 EDT, Dry Weight Start Date: 06/27/19 Stop Date: 12/24/19 Status: OrderedhydrOXYzine pamoate 25 mg oral capsule 1 capsule = 25 mg, By Mouth, 4 times a day, PRN as needed for anxiety, # 40 capsule, 11 Refills, Acute 02/23/20 8:43:00 EST, 05/30/19 8:43:00 EDT, Capsule, [facility]/pharmacy #[id number], 160, cm, 08/16/18 11:38:00 EDT, Height, [...] 11 Refills, Maintenance, 05/30/19 8:43:00 EDT, Tablet, [facility]/pharmacy #[id number], 1 tablet By Mouth Daily, 160, [...] Maintenance, 08/24/19 9:24:00 EDT, EC Capsule, [facility]/pharmacy #207, 160, cm, 08/16/18 11:38:00 EDT, Height, 56.7, kg, 08/16/18 11:38:00 EDT, Dry Weight Start Date: 08/24/19 Status: OrderedPercocet 7.5 mg-325 mg oral tablet 2 tablet, By Mouth, Every 4 hours, doing 1 day early due to holiday, # 84 tablet, 0 Refills, Maintenance, 09/22/19 8:32:00 EDT, [facility], partial refill upon patient request, 2 tablet By Mouth Every 4 hours,Instr:doing 1 day early d... Start Date: 09/22/19 Status: Orderedsertraline 25 mg oral tablet 1 tablet = 25 mg, By Mouth, Daily, Take 1 tablet daily for 2 weeks, then increase to 2 tablets daily, # 60 tablet, 11 Refills, Maintenance, 05/30/19 8:43:00 EDT, Tablet, [facility]/pharmacy #[id number], 160, cm, 08/16/18 11:38:00 EDT, Height, 56.7, kg, 08/16/18 11... Start Date: 05/30/19 Status: Ordered Problem List Condition Effective Dates Status Health Status Informant Depression(Confirmed) Active Sickle cell anemia(Confirmed) Active Protein-calorie malnutrition, Active moderate(Confirmed) N Care Management [facility] [phone](Confirmed) TACO (transfusion associated Active circulatory overload)(Confirmed)1 1The [...]
--- OUTSIDE RECORDS SUMMARY | 2021-12-15 06:05 | XMS_ITS | Continuity of Care Document ---
:1970 Author Organization [facility] Address [address] [place] [address]- Care Team Providers Name Role Phone Blake Recio MD Primary Care Physician Encounter [facility] Date(s): 05/12/19 - 06/12/[address] [address]- [facility] Attending Physician: Danya Austin MD Allergies, Adverse Reactions, [...] 05/19/2014:54:00 EDT, Aerosol, Route to Pharmacy Electronically, [id number], [facility]/pharmacy #[id number], 160, cm, 08/16/18 11:38:00 EDT, [...] 05/30/19 8:43:00 EDT, Route to Pharmacy Electronically, [facility]/pharmacy #[id number], 160, cm, 08/16/18 11:38:00 EDT, Height, 56.7, kg, 08/16/18 11:38:00 EDT, Dry Weight Start Date: 05/30/19 Stop Date: 06/29/19 Status: OrderedhydrOXYzine pamoate 25 mg oral capsule 1 capsule = 25 mg, By Mouth, 4 times a day, PRN as needed for anxiety, # 40 capsule, 11 Refills, Acute 02/23/20 8:43:00 EST, 05/30/19 8:43:00 EDT, Capsule, [facility]/pharmacy #[id number], 160, cm, 08/16/18 11:38:00 EDT, [...] 11 Refills, Maintenance, 05/30/19 8:43:00 EDT, Tablet, [facility]/pharmacy #[id number], 1 tablet By Mouth Daily, [...] Refills, Maintenance, 05/30/19 8:43:00 EDT, EC Capsule, [facility]/pharmacy #[id number], 160, cm, 08/16/18 11:38:00 EDT, Height, 56.7, kg, 08/16/18 11:38:00 EDT, Dry Weight Start Date: 05/30/19 Status: OrderedPercocet 7.5 mg-325 mg oral tablet 2 tablet, By Mouth, Every 4 hours, # 84 tablet, 0 Refills, Maintenance, 06/10/19 11:49:00 EDT, [facility], 2 tablet By Mouth Every 4 hours, 160, cm, 08/16/18 11:38:00 EDT, Height, 56.7, kg, 08/16/18 11:38:00 EDT, Dry Weight Start Date: 06/10/19 Status: OrderedPercocet 7.5/325 325 mg-7.5 mg oral tablet 2 tablet, By Mouth, Every 4 hours, PRN Pain , Severe, # 84 tablet, 0 Refills, Maintenance, 05/12/19 12:11:00 EDT, Tablet, [facility], Pt may partial fill upon request, 2 tablet By Mouth Every 4 hours,PRN:Pain , Severe, 160, cm, 08/16/... Start Date: 05/12/19 Status: OrderedPercocet 7.5/325 325 mg-7.5 mg oral tablet 2 tablet, By Mouth, Every 4 hours, PRN for pain, # 84 tablet, 0 Refills, Maintenance, 05/19/19 16:03:00 EDT, Tablet, [facility], Partial fill upon patient request, 2 tablet By Mouth Every 4 hours,PRN:for pain, 160, cm, 08/16/18 11:38:... Start Date: 05/19/19 Status: Orderedsertraline 25 mg oral tablet 1 tablet = 25 mg, By Mouth, Daily, Take 1 tablet daily for 2 weeks, then increase to 2 tablets daily, # 60 tablet, 11 Refills, Maintenance, 05/30/19 8:43:00 EDT, Tablet, [facility]/pharmacy #[id number], 160, cm, 08/16/18 11:38:00 EDT, Height, 56.7, kg, 08/16/18 11... Start Date: 05/30/19 Status: Ordered Problem List Condition Effective Dates Status Health Status Informant Sickle cell anemia(Confirmed) Active Protein-calorie malnutrition, Active moderate(Confirmed) [facility] Care Management Saranya Steward [phone](Confirmed) TACO (transfusion associated Active circulatory overload)(Confirmed)1 1The [...]
--- OUTSIDE RECORDS SUMMARY | 2021-12-15 06:05 | XMS_ITS | Continuity of Care Document ---
:1970 Author Organization [facility] Address [address] [place] [address]- Care Team Providers Name Role Phone Lesia Cuevas MD Primary Care Physician Encounter [facility] Date(s): 12/24/20 - 01/23/[address] [address]- Allergies, Adverse Reactions, Alerts Substance Reaction Severity [...] Comment: normal saline diluent added lot number [id number] expires [id number] Comment: Afluria Medications albuterol 0.083% inhalation solution 3 mL = 2.5 mg, Inhalation, Every 6 hours, PRN shortness of breath, # 100 each, 11 Refills, Maintenance, 12/21/20 17:44:00 EDT, Solution, [facility]/pharmacy #1130, 164, cm, 12/21/20 14:12:00 [...] 0 Refills, Maintenance, 01/16/21 19:40:00 EST, Tablet, [facility]/pharmacy #1130, 164, cm, [...] Route to Pharmacy Electronically, [facility], 164, cm, 12/21/20 14:12:00 EDT, Height Start [...] Moderate, # 84 tablet, 0 Refills, Maintenance, 01/24/21 16:02:00 EST, Tablet, [facility]/pharmacy #1130, Partial fill upon patient request if the prescription is for a schedule II opioid drug., 2 tablet By Mouth... Start Date: 01/24/21 Stop Date: 01/31/21 Status: OrderedPercocet 7.5 mg-325 mg oral tablet 2 tablet, By Mouth, Every 4 hours, PRN Pain , Moderate, for 7 days, # 84 tablet, 0 Refills, Hard Stop 01/24/21 16:02:00 EST, 01/17/21 16:02:00 EST, Tablet, [facility]/pharmacy #1130, Partial fill upon patientrequest if the prescription is for a schedule II... Start Date: 01/17/21 Stop Date: 01/24/21 Status: [...] 12/21/20 17:43:00 EDT, Route to Pharmacy Electronically, [facility]/pharmacy #1130, 164, cm, 12/21/20 14:12:00 EDT, Height Start Date: 12/21/20 Stop Date: 03/21/21 Status: OrderedZoloft 50 mg oral tablet 1 tablet = 50 mg, By Mouth, Daily, # 30 tablet, 5 Refills, Maintenance, 12/21/20 17:43:00 EDT, Tablet, [facility]/pharmacy #1130, Partial fill [...]
--- OUTSIDE RECORDS SUMMARY | 2021-12-15 06:05 | XMS_ITS | Continuity of Care Document ---
:1970 Author Organization [facility] Address [address] [place] [address]- Care Team Providers Name Role Phone Lesia Cuevas MD Primary Care Physician [facility]counter [facility] Date(s): 11/13/20 - 12/13/[address] [address]- Allergies, Adverse Reactions, Alerts Substance Reaction Severity [...] 11 Refills, Maintenance, 05/30/19 8:43:00 EDT,Solution, [id number], 160, cm, 08/16/18 11:38:00 EDT, Height, 56.7, kg, 08/16/18 11:38:00 EDT, Dry Weight Start Date: 05/30/19 Status: Orderedallopurinol 100 mg oral tablet TK 1 T PO QD Start Date: 08/03/20 Status: Orderedallopurinol 100 mg oral tablet 100 mg, 1, tablet, By Mouth, Daily, # 30 tablet, Refills 0, Tot. Refills 0, Maintenance, 11/26/20 10:09:00 EDT, Route to Pharmacy Electronically, [facility], Partial fill upon patient [...] 0 Refills, Maintenance, 11/02/20 19:28:00 EDT, Tablet, [facility]/pharmacy #1130, Partial fill upon patient request if the prescription is for a scheduleII opioid drug., 164, cm, 10/11/20 15:22:00 EDT,... Start Date: 11/02/20 Status: OrderedAtivan 1 mg oral tablet 1 tablet = 1 mg, By Mouth, Daily, PRN as needed for anxiety, for 21 days, Reviewed [facility] on 12/10.Use PRN for anxiety 1x/day., # 21 tablet, 0 Refills, Acute 12/31/20 12:33:00 EST, 12/10/20 12:33:00 EDT, Tablet, [facility]/pharmacy #1130, Partial fill up... Start Date: 12/10/20 Stop Date: 12/31/20 Status: OrderedBenadryl 25 mg oral capsule 1 [...] 06/27/19 10:33:00 EDT, Route to Pharmacy Electronically, [facility]/pharmacy #2061, 160, cm, 08/16/18 11:38:00 EDT, Height, 56.7, [...] anxiety, for 30 days, # 90 tablet, 0 Refills, Acute 01/09/21 12:27:00 EST, 12/10/20 12:27:00 EDT, Tablet, [facility]/pharmacy #1130, Partial fill upon patient request if the prescription is for a s... Start Date: 12/10/20 Stop Date: 01/09/21 Status: OrderedLasix 20 mg oral tablet 20 mg, 1, tablet, By Mouth, Daily, # 7 tablet, Refills 0, Tot. Refills 0, Maintenance, 12/08/20 15:34:00 EDT, Route to Pharmacy Electronically, [facility]/pharmacy #1130, Partial fill upon patient request if the prescription is for a schedule II opioid drug.... Start Date: 12/08/20 Stop Date: 12/15/20 Status: OrderedmetroNIDAZOLE 500 mg oral tablet 1 tablet = 500 mg, By Mouth, Every 12 hours, for 7 days, may take with food to minimize abdominal discomfort. Please start first pill 12/12. Do not drink alcohol, # 14 tablet, 0 Refills, Acute 218:49:00 EDT, 12/12/20 8:49:00 EDT, [facility] Start Date: 12/12/20 Stop Date: 12/19/20 Status: OrderedMineral Oil /Petrolatum Ophth 1 applicator, [...] 0:43:51 EDT, Tablet Start Date: 11/21/17 Status: OrderedNicotine 2 mg gum 1 each = 2 mg, Chew, Every 2 hours, PRN as needed for smoking cessation, for 6 week(s), as directed on package labeling Max 24 pieces/day, # 160 each, 1 Refills, Acute 03/04/21 17:14:00 EST, 12/10/20 17:14:00 EDT, Gum, [facility]/pharmacy #1130, Partial rao... Start Date: 12/10/20 Stop Date: 03/04/21 Status: Orderedomeprazole 20 mg oral delayed release tablet 1 tablet = 20 mg, By Mouth, Daily, # 90 tablet, 0 Refills, Maintenance, 12/10/20 12:35:00 EDT, CR Tablet, [facility]/pharmacy #1130, 164, cm, 12/10/20 11:10:00 EDT, Height Start Date: 12/10/20 Status: OrderedPancrelipase ER Capsule 1 each = [...] Moderate, # 84 tablet, 0 Refills, Maintenance, 12/13/20 16:02:00 EDT, Tablet, [facility], Partial fill upon patient request if the prescription is for a schedule II opioid drug., 2 tablet By Mouth... Start Date: 12/13/20 Stop Date: 12/20/20 Status: OrderedpredniSONE 10 mg oral tablet 2 tablet = 20 mg, By Mouth, Daily, with food, # 14 tablet, 0 Refills, Maintenance, 12/10/20 12:25:00EDT, Tablet, [facility], 164, cm, 12/10/20 11:10:00 EDT, Height Start Date: 12/10/20 Stop Date: 12/17/20 Status: OrderedSEROquel 25 mg oral tablet 25 mg, 1, tablet, By Mouth, 2 times a day, PRN, # 60 tablet, Refills 0, Tot. Refills 0, Maintenance,Agitation, 12/10/20 12:28:00 EDT, Route to Pharmacy Electronically, [facility], Partial fillupon patient request if the prescription is for a... Start Date: 12/10/20 Stop Date: 01/09/21 Status: OrderedZoloft 50 mg oral tablet 1 tablet = 50 mg, By Mouth, Daily, # 30 tablet, 0 Refills, Maintenance, 12/10/20 12:29:00 EDT, Tablet, [facility], Partial fill upon patient request if the prescription is for a schedule II opioid drug., 164, cm, 12/10/20 11:10:00 EDT, Height Start Date: 12/10/20 Status: Ordered Problem List Condition Effective Dates [...]
--- OUTSIDE RECORDS SUMMARY | 2021-12-15 06:05 | XMS_ITS | Continuity of Care Document ---
:1970 Author Organization [facility] Address [address] [place] [address]- Care Team Providers Name Role Phone Lesia Cuevas MD Primary Care Physician [facility]counter [facility] Date(s): 04/19/21 - 05/19/[address] [id number] Allergies, Adverse Reactions, Alerts Substance Reaction [...] Comment: normal saline diluent added lot number [id number] expires Result Comment: Afluria Medications Albuterol (Eqv-Proventil HFA) 90 mcg/inh inhalation aerosol 2 puffs, Inhalation, Every 6 hours, # 18 Gm, 6 Refills, Maintenance, 04/23/21 13:15:00 EST, [facility]/pharmacy #1130, Partial fill upon patient request if the prescription is for a schedule II opioid drug., 164, cm, 04/22/21 13:37:00 EST, Height Start Date: 04/23/21 Status: Orderedalbuterol 0.083% inhalation solution 3 mL = 2.5 mg, Inhalation, Every 6 hours, PRN shortness of breath, For diagnosis of asthma ICD-10 code J45.998, # 100 each, 11 Refills, Maintenance, 04/22/21 14:09:00 EST, Solution, [facility]/pharmacy #1130,164, cm, 04/22/21 13:37:00 EST, Height Start Date: 04/22/21 Status: Orderedallopurinol 100 mg oral tablet 100 mg, 1, tablet, By Mouth, Daily, # 30 tablet, Refills 5, Tot. Refills 5, Maintenance, 12/21/20 17:44:00 EDT, Route to Pharmacy Electronically, [facility]/pharmacy #1130, 164, cm, 12/21/20 14:12:00 EDT, Height Start Date: 12/21/20 Status: Orderedapixaban 5 mg oral tablet 1 tablet = 5 mg, By Mouth, 2 times a day, # 60 tablet, 5 Refills, Maintenance, 12/21/20 17:44:00 EDT, Tablet, [facility]/pharmacy #1130, Partial fill upon patient request if the prescription is for a scheduleII opioid drug., 164, cm, 12/21/20 14:12:00 EDT,... Start Date: 12/21/20 Status: OrderedAtivan 1 mg oral tablet 1 tablet = 1 mg, By Mouth, 2 times a day, [facility] checked okay to fill on 03/08, # 56 tablet, 0 Refills, Maintenance, 03/08/21 18:22:00 EST, Tablet, [facility]/pharmacy #1130, 164, cm, 12/21/20 14:12:00 EDT, [...] 11 Refills, Maintenance, 12/23/20 22:41:00 EDT, Lotion, [facility]/pharmacy #1130, Partial fill upon patient request if the prescription isfor a schedule II opioid drug., 1 application Top... Start Date: 12/23/20 Status: Orderedfurosemide 20 mg oral tablet 1, tablet, By Mouth, Daily, # 30 tablet, Refills 0, Route to Pharmacy Electronically, [id number], 164, cm, 12/21/20 14:12:00 EDT, Height Start Date: 01/15/21 Status: Orderedgabapentin 300 mg oral capsule 300 mg, 1, capsule, By Mouth, 3 times a day, # 90 capsule, Refills 5, Tot. Refills 5, Maintenance, 04/22/21 17:04:00 EST, Route to Pharmacy Electronically, [facility]/pharmacy #1130, 164, cm, 04/22/21 13:37:00 EST, [...] 04/22/21 13:57:00 EST, Route to Pharmacy Electronically, [facility]/pharmacy #1130, 164, cm, 04/22/21 13:37:00 EST, [...] 11 Refills, Maintenance, 12/21/20 17:54:00 EDT, Tablet, [facility]/pharmacy #1130, Partial fill upon patient request [...] 0 Refills, Maintenance, 04/22/21 14:12:00 EST, Gum, [facility]/pharmacy #1130, 164, cm, 04/22/21 13:37:00 EST, [...] Refills, Maintenance, 12/21/20 17:43:00 EDT, CR Tablet, [facility]/pharmacy #1130, 164, cm, 12/21/20 14:12:00 EDT, Height Start Date: 12/21/20 Status: OrderedPercocet 7.5 mg-325 mg oral tablet 2 tablet, By Mouth, Every 4 hours, PRN Pain , Moderate, # 84 tablet, 0 Refills, Maintenance, 05/16/21 11:22:00 EDT, Tablet, [facility]/pharmacy #1130, Partial fill upon patient request [...] tablet, 0 Refills, Maintenance, 12/21/20 17:43:00EDT, Tablet, [facility]/pharmacy #1130, 164, cm, 12/21/20 14:12:00 EDT, Height Start Date: 12/21/20 Stop Date: 01/20/21 Status: OrderedpredniSONE 5 mg oral tablet See Instructions, alternate 4 tabs/d with 3 tabs/d for 2 weeks, # 120 tablet, 0 Refills, Maintenance, 03/13/21 13:09:00 EST, Tablet, [facility]/pharmacy #1130, Partial fill upon patient request if the prescription is for a schedule II opioid drug., 164, cm,... Start Date: 03/13/21 Status: OrderedSEROquel 25 mg oral tablet 25 mg, 1, tablet, By Mouth, 2 times a day, PRN, # 60 tablet, Refills 2, Tot. Refills 2, Maintenance,Agitation, 03/21/21 17:43:00 EST, Route to Pharmacy Electronically, [facility]/pharmacy #1130, 164, cm, 12/21/20 14:12:00 EDT, Height Start Date: 03/21/21 Stop Date: 06/19/21 Status: OrderedZoloft 50 mg oral tablet 1 tablet = 50 mg, By Mouth, Daily, # 30 tablet, 5 Refills, Maintenance, 12/21/20 17:43:00 EDT, Tablet, [facility]/pharmacy #1130, Partial fill upon patient request [...]
--- OUTSIDE RECORDS SUMMARY | 2021-12-15 06:05 | XMS_ITS | Continuity of Care Document ---
:1970 Author Organization [facility] Address [address] [place] [id number]- Care Team Providers Name Role Phone Lesia Cuevas MD Primary Care Physician Encounter [facility] Date(s): 10/08/20 - 11/07/20 [facility] [address] [place] [id number] Allergies, Adverse Reactions, Alerts Substance Reaction [...] 11/02/20 19:30:00 EDT, [facility] 0 Refills, Maintenance, 11/02/20 19:28:00 EDT, Tablet, [facility]/pharmacy #1130, [...] 06/27/19 10:33:00 EDT, Route to Pharmacy Electronically, [facility]/pharmacy #2071, 160, cm, 08/16/18 11:38:00 EDT, [...] Moderate, # 84 tablet, 0 Refills, Maintenance, 11/01/20 16:02:00 EDT, Tablet, [facility], Partial fill upon patient request if the prescription is for a schedule II opioid drug., 2 tablet... Start Date: 11/01/20 Stop Date: 11/08/20 Status: OrderedpredniSONE 10 mg oral tablet 2 tablet = 20 mg, By Mouth, Daily, with food, # 14 tablet, 0 Refills, Maintenance, 11/02/20 19:26:00EDT, Tablet, [facility]/pharmacy #1130, Partial [...]
--- OUTSIDE RECORDS SUMMARY | 2021-12-15 06:06 | XMS_ITS | Continuity of Care Document ---
:1970 Author Organization [facility] Address Unavailable , Care Team Providers Name Role Phone Lesia Cuevas MD Primary Care Physician [facility]counter [facility] Date(s): 10/11/20 - 11/10/20 [facility] Attending Physician: Jamaica Aguero Admitting Physician: Jamaica Aguero Referring Physician: Admtr, Murphy8 Allergies, Adverse Reactions, Alerts Substance Reaction Severity [...] 11 Refills, Maintenance, 05/30/19 8:43:00 EDT,Solution, [facility]/pharmacy #1921, 160, cm, 08/16/18 11:38:00 EDT, Height, 56.7, kg, 08/16/18 11:38:00 EDT, Dry Weight Start Date: 05/30/19 Status: Orderedallopurinol 100 mg oral tablet TK 1 T PO QD Start Date: 08/03/20 Status: Orderedallopurinol 100 mg oral tablet 100 mg, 1, tablet, By Mouth, Daily, # 30 tablet, Refills 0, Tot. Refills 0, Maintenance, 11/02/20 19:30:00 EDT, Route to Pharmacy Electronically, [facility]/pharmacy #1130, Partial fill upon [...] 0 Refills, Maintenance, 11/02/20 19:28:00 EDT, Tablet, [facility]/pharmacy #1130, Partial [...] 06/27/19 10:33:00 EDT, Route to Pharmacy Electronically, [facility]/pharmacy #2071, 160, cm, 08/16/18 11:38:00 EDT, [...] 0 Refills, Maintenance, 11/08/20 16:02:00 EDT, Tablet, [facility], Partial fill upon patient request if the prescription is for a schedule II opioid drug., 2 tablet... Start Date: 11/08/20 Stop Date: 11/15/20 Status: OrderedpredniSONE 10 mg oral tablet 2 tablet = 20 mg, By Mouth, Daily, with food, # 14 tablet, 0 Refills, Maintenance, 11/02/20 19:26:00EDT, Tablet, [facility]/pharmacy #1130, Partial fill [...]
--- OUTSIDE RECORDS SUMMARY | 2021-12-15 06:06 | XMS_ITS | Continuity of Care Document ---
:1970 Author Organization [facility] Address [address] [place] [address]- Care Team Providers Name Role Phone Lesia Cuevas MD Primary Care Physician Encounter [facility] Date(s): 12/14/20 - 04/13/[address] [address]- Attending Physician: Katarzyna Beckham MD Admitting Physician: Katarzyna Beckham MD Allergies, Adverse Reactions, Alerts Substance Reaction [...] Comment: normal saline diluent added lot number [id number] expires Result Comment: Afluria Medications albuterol 0.083% inhalation solution 3 mL = 2.5 mg, Inhalation, Every 6 hours, PRN shortness of breath, For diagnosis of asthma ICD-10 code J45.998, # 100 each, 11 Refills, Maintenance, 03/15/21 17:29:00 EST, Solution, [facility]/pharmacy #1130,164, cm, 03/12/21 15:25:00 EST, Height Start Date: 03/15/21 Status: Orderedallopurinol 100 mg oral tablet 100 mg, 1, tablet, By Mouth, Daily, # 30 tablet, Refills 5, Tot. Refills 5, Maintenance, 12/21/20 17:44:00 EDT, Route to Pharmacy Electronically, [facility]/pharmacy #1130, 164, cm, 12/21/20 14:12:00 EDT, Height Start Date: 12/21/20 Status: Orderedapixaban 5 mg oral tablet 1 tablet = 5 mg, By Mouth, 2 times a day, # 60 tablet, 5 Refills, Maintenance, 12/21/20 17:44:00 EDT, Tablet, [facility]/pharmacy #1130, Partial fill upon patient request if the prescription is for a scheduleII opioid drug., 164, cm, 12/21/20 14:12:00 EDT,... Start Date: 12/21/20 Status: OrderedAtivan 1 mg oral tablet 1 tablet = 1 mg, By Mouth, 2 times a day, [facility] checked okay to fill on 03/08, # 56 tablet, 0 Refills, Maintenance, 03/08/21 18:22:00 EST, Tablet, [facility]/pharmacy #1130, 164, cm, 12/21/20 14:12:00 EDT, Height Start Date: 03/08/21 Status: OrderedBenadryl 25 mg oral capsule 1 capsule = 25 mg, By Mouth, 3 times a day, PRN for itching, # 100 capsule, 1 Refills, Maintenance, 03/14/21 18:27:00 EST, Capsule, [facility]/pharmacy #1130, Partial fill upon patient request [...] 11 Refills, Maintenance, 12/23/20 22:41:00 EDT, Lotion, [facility]/pharmacy #1130, Partial fill upon patient request if the prescription isfor a schedule II opioid drug., 1 application Top... Start Date: 12/23/20 Status: Orderedfurosemide 20 mg oral tablet 1, tablet, By Mouth, Daily, # 30 tablet, Refills 0, Route to Pharmacy Electronically, [facility], 164, cm, 12/21/20 14:12:00 EDT, Height Start [...] 11 Refills, Maintenance, 12/21/20 17:54:00 EDT, Tablet, [facility]/pharmacy #1130, Partial fill upon patient request [...] Refills, Maintenance, 12/21/20 17:43:00 EDT, CR Tablet, [facility]/pharmacy #1130, 164, cm, 12/21/20 14:12:00 EDT, Height Start Date: 12/21/20 Status: OrderedPercocet 7.5 mg-325 mg oral tablet 2 tablet, By Mouth, Every 4 hours, PRN Pain , Moderate, # 84 tablet, 0 Refills, Maintenance, 04/11/21 11:22:00 EST, Tablet, [facility]/pharmacy #1130, Partial fill upon patient request [...] tablet, 0 Refills, Maintenance, 12/21/20 17:43:00EDT, Tablet, [facility]/pharmacy #1130, 164, cm, 12/21/20 14:12:00 EDT, Height Start Date: 12/21/20 Stop Date: 01/20/21 Status: OrderedpredniSONE 5 mg oral tablet See Instructions, alternate 4 tabs/d with 3 tabs/d for 2 weeks, # 120 tablet, 0 Refills, Maintenance, 03/13/21 13:09:00 EST, Tablet, [facility]/pharmacy #1130, Partial fill upon patient request [...]
--- OUTSIDE RECORDS SUMMARY | 2021-12-15 06:06 | XMS_ITS | Continuity of Care Document ---
:1970 Author Organization [facility] Address [address] [place] [address]- Care Team Providers Name Role Phone Lesia Cuevas MD Primary Care Physician [facility]counter [facility] Date(s): 05/24/21 - 07/04/[address] [address] Attending Physician: Kenny Dailey MD Admitting Physician: [...] Comment: normal saline diluent added lot number [id number] expires Result Comment: Afluria Medications acetaminophen-oxycodone 325 mg-7.5 mg oral tablet 2 tablet, By Mouth, Every 4 hours, PRN Pain , Severe, 0 Refills Start Date: 07/03/21 Status: Orderedallopurinol 100 mg oral tablet 100 mg, 1, tablet, By Mouth, Daily Start Date: 07/03/21 Status: OrderedBanophen 25 mg oral tablet 1 tablet = 25 mg, By Mouth, 3 times a day, PRN as needed for itching, 0 Refills, Maintenance, 07/03/21 13:16:00 EDT, Partial fill upon patient request if the prescription is for a schedule II opioid drug. Start Date: 07/03/21 Status: OrderedDaily Lazara oral tablet 1 tablet, By Mouth, Daily Start Date: 07/03/21 Status: OrderedEliquis 5 mg oral tablet 1 [...]
--- OUTSIDE RECORDS SUMMARY | 2021-12-15 06:06 | XMS_ITS | Continuity of Care Document ---
:1970 Author Organization [facility] Address [address] [place] [address]- Care Team Providers Name Role Phone Blake Recio MD Primary Care Physician Encounter [facility] Date(s): 05/20/19 - 06/19/[address] [address]- [facility] Attending Physician: Not on Staff, Attending MD [...] 05/19/2014:54:00 EDT, Aerosol, Route to Pharmacy Electronically, [id number], [facility]/pharmacy #[id number], 160, cm, 08/16/18 11:38:00 EDT, [...] 05/30/19 8:43:00 EDT, Route to Pharmacy Electronically, [facility]/pharmacy #2071, 160, cm, 08/16/18 11:38:00 EDT, Height, 56.7, kg, 08/16/18 11:38:00 EDT, Dry Weight Start Date: 05/30/19 Stop Date: 06/29/19 Status: OrderedhydrOXYzine pamoate 25 mg oral capsule 1 capsule = 25 mg, By Mouth, 4 times a day, PRN as needed for anxiety, # 40 capsule, 11 Refills, Acute 02/23/20 8:43:00 EST, 05/30/19 8:43:00 EDT, Capsule, [facility]/pharmacy #2070, 160, cm, 08/16/18 11:38:00 EDT, [...] 11 Refills, Maintenance, 05/30/19 8:43:00 EDT, Tablet, [facility]/pharmacy #2070, 1 tablet By Mouth Daily, [...] Refills, Maintenance, 05/30/19 8:43:00 EDT, EC Capsule, [facility]/pharmacy #2070, 160, cm, 08/16/18 11:38:00 EDT, Height, 56.7, kg, 08/16/18 11:38:00 EDT, Dry Weight Start Date: 05/30/19 Status: OrderedPercocet 7.5 mg-325 mg oral tablet 2 tablet, By Mouth, Every 4 hours, # 84 tablet, 0 Refills, Maintenance, 06/17/19 10:06:00 EDT, [facility], 2 tablet By Mouth Every 4 hours, 160, cm, 08/16/18 11:38:00 EDT, Height, 56.7, kg, 08/16/18 11:38:00 EDT, Dry Weight Start Date: 06/17/19 Status: OrderedPercocet 7.5/325 325 mg-7.5 mg oral tablet 2 tablet, By Mouth, Every 4 hours, PRN Pain , Severe, # 84 tablet, 0 Refills, Maintenance, 05/12/19 12:11:00 EDT, Tablet, [facility], Pt may partial fill upon request, 2 tablet By Mouth Every 4 hours,PRN:Pain , Severe, 160, cm, ... Start Date: 05/12/19 Status: OrderedPercocet 7.5/325 325 mg-7.5 mg oral tablet 2 tablet, By Mouth, Every 4 hours, PRN for pain, # 84 tablet, 0 Refills, Maintenance, 05/19/19 16:03:00 EDT, Tablet, [facility], Partial fill upon patient request, 2 tablet By Mouth Every 4 hours,PRN:for pain, 160, cm, 08/16/18 11:38:... Start Date: 05/19/19 Status: Orderedsertraline 25 mg oral tablet 1 tablet = 25 mg, By Mouth, Daily, Take 1 tablet daily for 2 weeks, then increase to 2 tablets daily, # 60 tablet, 11 Refills, Maintenance, 05/30/19 8:43:00 EDT, Tablet, [facility]/pharmacy #2071, 160, cm, 08/16/18 11:38:00 EDT, Height, 56.7, kg, 08/16/18 11... Start Date: 05/30/19 Status: Ordered Problem List Condition Effective Dates Status Health Status Informant Sickle cell anemia(Confirmed) Active Protein-calorie malnutrition, Active moderate(Confirmed) [facility] Care Management Saranya Steward [phone](Confirmed) TACO (transfusion associated Active circulatory overload)(Confirmed)1 1The [...]
--- OUTSIDE RECORDS SUMMARY | 2021-12-15 06:06 | XMS_ITS | Continuity of Care Document ---
:1970 Author Organization [facility] Address [address] [place] [address]- Care Team Providers Name Role Phone Lesia Cuevas MD Primary Care Physician [facility]counter [facility] Date(s): 04/23/21 - 05/23/[address] [address] Allergies, Adverse Reactions, Alerts Substance Reaction [...] Comment: normal saline diluent added lot number [id number] expires Result Comment: Afluria Medications Albuterol (Eqv-Proventil HFA) 90 mcg/inh inhalation aerosol 2 puffs, Inhalation, Every 6 hours, # 18 Gm, 6 Refills, Maintenance, 04/23/21 13:15:00 EST, [facility]/pharmacy #1130, Partial fill upon patient request if the prescription is for a schedule II opioid drug., 164, cm, 04/22/21 13:37:00 EST, Height Start Date: 04/23/21 Status: Orderedalbuterol 0.083% inhalation solution 3 mL = 2.5 mg, Inhalation, Every 6 hours, PRN shortness of breath, For diagnosis of asthma ICD-10 code J45.998, # 100 each, 11 Refills, Maintenance, 04/22/21 14:09:00 EST, Solution, [facility]/pharmacy #1130,164, cm, 04/22/21 13:37:00 EST, Height Start [...] to Pharmacy Electronically, [facility], 164, cm, 12/21/20 14:12:00 EDT, Height Start Date: 01/15/21 Status: Orderedgabapentin 300 mg oral capsule 300 mg, 1, capsule, By Mouth, 3 times a day, # 90 capsule, Refills 5, Tot. Refills 5, Maintenance, 04/22/21 17:04:00 EST, Route to Pharmacy Electronically, [facility]/pharmacy #1130, 164, cm, 04/22/21 13:37:00 EST, Height [...] 04/22/21 13:57:00 EST, Route to Pharmacy Electronically, [facility]/pharmacy #1130, 164, cm, 04/22/21 13:37:00 EST, Height [...] 0 Refills, Maintenance, 04/22/21 14:12:00 EST, Gum, [facility]/pharmacy #1130, 164, cm, 04/22/21 13:37:00 EST, Height [...] 0 Refills, Maintenance, 05/23/21 11:22:00 EDT, Tablet, [facility]/pharmacy #1130, Partial [...] Refills, Maintenance, 12/21/20 17:43:00EDT, Tablet, [facility]/pharmacy #1130, 164, cm, [...] 03/21/21 17:43:00 EST, Route to Pharmacy Electronically, [facility]/pharmacy #1130, 164, cm, 12/21/20 14:12:00 EDT, Height Start Date: 03/21/21 Stop Date: 06/19/21 Status: OrderedZoloft 50 mg oral tablet 1 tablet = 50 mg, By Mouth, Daily, # 30 tablet, 5 Refills, Maintenance, 12/21/20 17:43:00 EDT, Tablet, [facility]/pharmacy #1130, Partial [...]
--- OUTSIDE RECORDS SUMMARY | 2021-12-15 06:06 | XMS_ITS | Continuity of Care Document ---
:1970 Author Organization [facility] Address [address] [place] [address]- Care Team Providers Name Role Phone Lesia Cuevas MD Primary Care Physician Encounter [facility] Date(s): 06/10/21 - 07/10/21 [facility] [address] [place] [address]- Attending Physician: Jamaica Aguero Admitting Physician: AdmJamaica cheatham Referring Physician: AdmtrJamaica Allergies, Adverse Reactions, Alerts [...] Comment: normal saline diluent added lot number [id number] expires Result Comment: Afluria Medications acetaminophen-oxycodone 325 [...] FOR ITCHING, # 100 capsule, 1 Refills, [facility], 162, cm, 07/06/21 8:31:00 EDT, Height, 60.1, [...] 07/12/21 8:57:00 EDT, 07/09/21 8:57:00 EDT, Tablet, [facility], Partial fill upon patient request if the prescription is for a s... Start Date: 07/09/21 Stop Date: 07/12/21 Status: OrderedoxyCODONE 10 mg oral tablet 2 tablet = 20 mg, By Mouth, Every 4 hours, for 7 days, # 84 tablet, 0 Refills, Acute 07/16/21 13:45:00 EDT, 07/09/21 13:45:00 EDT, Tablet, [facility]/pharmacy #1130, Partial fill upon patient [...]
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
--- OUTSIDE RECORDS SUMMARY | 2021-12-15 06:06 | XMS_ITS | Continuity of Care Document ---
:1970 Author Organization [facility] Address [address] [place] [address]- Care Team Providers Name Role Phone Lesia Cuevas MD Primary Care Physician Encounter [facility] Date(s): 12/14/20 - 01/13/[address] [address]- Allergies, Adverse Reactions, Alerts Substance Reaction Severity [...] Comment: normal saline diluent added lot number [id number] expires Result Comment: Afluria Medications albuterol 0.083% [...] 12/21/20 17:44:00 EDT, Route to Pharmacy Electronically, [facility]/pharmacy #[id number], 164, cm, 12/21/20 14:12:00 EDT, Height Start Date: 12/21/20 Status: Orderedapixaban 5 mg oral tablet 1 tablet = 5 mg, By Mouth, 2 times a day, # 60 tablet, 5 Refills, Maintenance, 12/21/20 17:44:00 EDT, Tablet, [facility]/pharmacy #1130, Partial fill upon patient request if the prescription is for a scheduleII opioid drug., 164, cm, 12/21/20 14:12:00 EDT,... Start Date: 12/21/20 Status: OrderedBenadryl 25 mg oral capsule 1 capsule = 25 mg, By Mouth, Every 6 hours, PRN as needed for itching, # 100 capsule, 1 Refills, Acute 01/23/21 9:00:00 EST, 12/21/20 17:53:00 EDT, Tablet, [facility]/pharmacy #1130, Partial fill upon patientrequest if [...] 11 Refills, Maintenance, 12/23/20 22:41:00 EDT, Lotion, [facility]/pharmacy #1130, Partial fill upon patient [...] 11 Refills, Maintenance, 12/21/20 17:54:00 EDT, Tablet, [facility]/pharmacy #1130, Partial fill upon patient [...] 03/15/21 17:44:00 EST, 12/21/20 17:44:00 EDT, Gum, [facility]/pharmacy #1130, Partial rao... Start Date: 12/21/20 [...] 0 Refills, Maintenance, 01/10/21 16:02:00 EST, Tablet, [facility]/pharmacy #1130, Partial fill upon patient [...] tablet, 0 Refills, Maintenance, 12/21/20 17:43:00EDT, Tablet, [facility]/pharmacy #1130, 164, cm, 12/21/20 14:12:00 EDT, Height Start Date: 12/21/20 Stop Date: 01/20/21 Status: OrderedSEROquel 25 mg oral tablet 25 mg, 1, tablet, By Mouth, 2 times a day, PRN, # 60 tablet, Refills 2, Tot. Refills 2, Maintenance,Agitation, 12/21/20 17:43:00 EDT, Route to Pharmacy Electronically, [facility]/pharmacy #1130, 164, cm, 12/21/20 14:12:00 EDT, Height Start Date: 12/21/20 Stop Date: 03/21/21 Status: OrderedZoloft 50 mg oral tablet 1 tablet = 50 mg, By Mouth, Daily, # 30 tablet, 5 Refills, Maintenance, 12/21/20 17:43:00 EDT, Tablet, [facility]/pharmacy #1130, Partial fill upon patient [...]
--- OUTSIDE RECORDS SUMMARY | 2021-12-15 06:06 | XMS_ITS | Continuity of Care Document ---
:1970 Author Organization [facility] Address [address] [place] [address]- Care Team Providers Name Role Phone Lesia Cuevas MD Primary Care Physician Encounter [facility] Date(s): 12/14/20 - 01/13/[address] [address]- Allergies, Adverse Reactions, Alerts Substance Reaction Severity [...] Comment: normal saline diluent added lot number [id number] expires Result Comment: Afluria Medications albuterol 0.083% [...] 12/21/20 17:44:00 EDT, Route to Pharmacy Electronically, [facility]/pharmacy #1130, 164, cm, 12/21/20 14:12:00 EDT, Height Start Date: 12/21/20 Status: Orderedapixaban 5 mg oral tablet 1 tablet = 5 mg, By Mouth, 2 times a day, # 60 tablet, 5 Refills, Maintenance, 12/21/20 17:44:00 EDT, Tablet, [facility]/pharmacy #1130, Partial fill upon patient request if the prescription is for a scheduleII opioid drug., 164, cm, 12/21/20 14:12:00 EDT,... Start Date: 12/21/20 Status: OrderedBenadryl 25 mg oral capsule 1 capsule = 25 mg, By Mouth, Every 6 hours, PRN as needed for itching, # 100 capsule, 1 Refills, Acute 01/23/21 9:00:00 EST, 12/21/20 17:53:00 EDT, Tablet, [facility]/pharmacy #1130, Partial fill upon patientrequest [...] 11 Refills, Maintenance, 12/23/20 22:41:00 EDT, Lotion, [facility]/pharmacy #1130, Partial fill upon patient [...] 11 Refills, Maintenance, 12/21/20 17:54:00 EDT, Tablet, [facility]/pharmacy #1130, Partial fill upon patient [...] 03/15/21 17:44:00 EST, 12/21/20 17:44:00 EDT, Gum, [facility]/pharmacy #1130, Partial rao... Start Date: 12/21/20 [...] 0 Refills, Maintenance, 01/10/21 16:02:00 EST, Tablet, [facility]/pharmacy #1130, Partial fill upon patient [...] tablet, 0 Refills, Maintenance, 12/21/20 17:43:00EDT, Tablet, [facility]/pharmacy #1130, 164, cm, 12/21/20 14:12:00 EDT, Height Start Date: 12/21/20 Stop Date: 01/20/21 Status: OrderedSEROquel 25 mg oral tablet 25 mg, 1, tablet, By Mouth, 2 times a day, PRN, # 60 tablet, Refills 2, Tot. Refills 2, Maintenance,Agitation, 12/21/20 17:43:00 EDT, Route to Pharmacy Electronically, [facility]/pharmacy #1130, 164, cm, 12/21/20 14:12:00 EDT, Height Start Date: 12/21/20 Stop Date: 03/21/21 Status: OrderedZoloft 50 mg oral tablet 1 tablet = 50 mg, By Mouth, Daily, # 30 tablet, 5 Refills, Maintenance, 12/21/20 17:43:00 EDT, Tablet, [facility]/pharmacy #1130, Partial fill upon patient [...]
--- OUTSIDE RECORDS SUMMARY | 2021-12-15 06:06 | XMS_ITS | Continuity of Care Document ---
:1970 Author Organization [facility] Address [address] [place] [address]- Care Team Providers Name Role Phone Lesia Cuevas MD Primary Care Physician Encounter [facility] Date(s): 02/01/21 - 03/03/[address] [address]- Allergies, Adverse Reactions, Alerts Substance Reaction Severity [...] Comment: normal saline diluent added lot number [id number] expires Result Comment: Afluria Medications albuterol 0.083% [...] 12/21/20 17:44:00 EDT, [id number], cm, 12/21/20 14:12:00 EDT, Height [...] Route to Pharmacy Electronically, [id number], 164, cm, 12/21/20 14:12:00 EDT, Height Start [...] 12/27/20 9:54:00 EDT, Route to Pharmacy Electronically, [facility]/pharmacy [...] 03/15/21 17:44:00 EST, 12/21/20 17:44:00 EDT, Gum, [facility]/pharmacy #1130, Partial rao... Start Date: 12/21/20 [...] 0 Refills, Maintenance, 02/28/21 16:02:00 EST, Tablet, [facility]/pharmacy #1130, Partial [...]
--- OUTSIDE RECORDS SUMMARY | 2021-12-15 06:06 | XMS_ITS | Continuity of Care Document ---
:1970 Author Organization [facility] Address Unavailable , Care Team Providers Name Role Phone Lesia Cuevas MD Primary Care Physician Encounter [facility] Date(s): 10/03/20 - 11/02/20 [facility] Allergies, Adverse Reactions, Alerts Substance Reaction Severity [...] 11/02/20 19:30:00 EDT, Route to Pharmacy Electronically, [facility]/pharmacy #1130, Partial fill upon patient request [...] 0 Refills, Maintenance, 11/02/20 19:28:00 EDT, Tablet, [facility]/pharmacy #1130, Partial fill upon patient request [...] 06/27/19 10:33:00 EDT, Route to Pharmacy Electronically, [facility]/pharmacy #[id number], 160, cm, 08/16/18 11:38:00 EDT, Height, [...] 0 Refills, Maintenance, 11/01/20 16:02:00 EDT, Tablet, [facility], Partial fill upon patient request if the prescription is for a schedule II opioid drug., 2 tablet... Start Date: 11/01/20 Stop Date: 11/08/20 Status: OrderedpredniSONE 10 mg oral tablet 2 tablet = 20 mg, By Mouth, Daily, with food, # 14 tablet, 0 Refills, Maintenance, 11/02/20 19:26:00EDT, Tablet, [facility]/pharmacy #1130, Partial fill upon patient request [...]
--- OUTSIDE RECORDS SUMMARY | 2021-12-15 06:06 | XMS_ITS | Continuity of Care Document ---
:1970 Author Organization [facility] Address [address] [place] [id number]- Care Team Providers Name Role Phone Lesia Cuevas MD Primary Care Physician Encounter [facility] Date(s): 04/22/21 - 05/28/[address] [address] Attending Physician: Katarzyna Beckham MD Admitting Physician: Radha Beckham MD Referring Physician: Lesia Cuevas MD Allergies, [...] Comment: normal saline diluent added lot number [id number] expires Result Comment: Afluria Medications Albuterol (Eqv-Proventil HFA) 90 mcg/inh inhalation aerosol 2 puffs, Inhalation, Every 6 hours, # 18 Gm, 6 Refills, Maintenance, 04/23/21 13:15:00 EST, [facility]/pharmacy #1130, Partial fill upon patient request if the prescription is for a schedule II opioid drug., 164, cm, 04/22/21 13:37:00 EST, Height Start Date: 04/23/21 Status: Orderedalbuterol 0.083% inhalation solution 3 mL = 2.5 mg, Inhalation, Every 6 hours, PRN shortness of breath, For diagnosis of asthma ICD-10 code J45.998, # 100 each, 11 Refills, Maintenance, 04/22/21 14:09:00 EST, Solution, [facility]/pharmacy #1130,164, cm, 04/22/21 13:37:00 EST, Height Start Date: 04/22/21 Status: Orderedallopurinol 100 mg oral tablet 100 mg, 1, tablet, By Mouth, Daily, # 30 tablet, Refills 5, Tot. Refills 5, Maintenance, 12/21/20 17:44:00 EDT, Route to Pharmacy Electronically, [facility]/pharmacy #1130, 164, cm, 12/21/20 14:12:00 EDT, Height Start Date: 12/21/20 Status: Orderedapixaban 5 mg oral tablet 1 tablet = 5 mg, By Mouth, 2 times a day, # 60 tablet, 5 Refills, Maintenance, 12/21/20 17:44:00 EDT, Tablet, [facility]/pharmacy #1130, Partial fill upon patient request if the prescription is for a scheduleII opioid drug., 164, cm, 12/21/20 14:12:00 EDT,... Start Date: 12/21/20 Status: OrderedAtivan 1 mg oral tablet 1 tablet = 1 mg, By Mouth, 2 times a day, [facility] checked okay to fill on 03/08, # 56 tablet, 0 Refills, Maintenance, 03/08/21 18:22:00 EST, Tablet, [facility]/pharmacy #1130, 164, cm, 12/21/20 14:12:00 EDT, Height Start Date: 03/08/21 Status: OrderedBenadryl 25 mg oral capsule 1 capsule = 25 mg, By Mouth, 3 times a day, PRN for itching, # 100 capsule, 1 Refills, Maintenance, 03/14/21 18:27:00 EST, Capsule, [facility]/pharmacy #1130, Partial fill upon patient [...] 11 Refills, Maintenance, 12/23/20 22:41:00 EDT, Lotion, [facility]/pharmacy #1130, Partial fill upon patient request if the prescription isfor a schedule II opioid drug., 1 application Top... Start Date: 12/23/20 Status: Orderedfurosemide 20 mg oral tablet 1, tablet, By Mouth, Daily, # 30 tablet, Refills 0, Route to Pharmacy Electronically, [facility], 164, cm, 12/21/20 14:12:00 EDT, Height Start Date: 01/15/21 Status: Orderedgabapentin 300 mg oral capsule 300 mg, 1, capsule, By Mouth, 3 times a day, # 90 capsule, Refills 5, Tot. Refills 5, Maintenance, 04/22/21 17:04:00 EST, Route to Pharmacy Electronically, [facility]/pharmacy #1130, 164, cm, 04/22/21 13:37:00 EST, Height Start Date: 04/22/21 Status: Orderedhydroxyurea 500 mg oral capsule 1 capsule = 500 mg, By Mouth, 2 times a day, for 30 days, # 60 capsule, 5 Refills, Acute 06/19/21 17:53:00 EDT, 12/21/20 17:53:00 EDT, Capsule, [facility]/pharmacy #1130, Partial fill upon patient request if the prescription is for a schedule II opioid drug.... Start Date: 12/21/20 Stop Date: 06/19/21 Status: Orderedloratadine 10 mg oral tablet 10 mg, 1, tablet, By Mouth, Daily, # 90 tablet, Refills 11, Tot. Refills 11, Maintenance, 04/22/21 13:57:00 EST, Route to Pharmacy Electronically, [facility]/pharmacy #1130, 164, cm, 04/22/21 13:37:00 EST, [...] 11 Refills, Maintenance, 12/21/20 17:54:00 EDT, Tablet, [facility]/pharmacy #1130, Partial fill upon patient [...] 0 Refills, Maintenance, 04/22/21 14:12:00 EST, Gum, [facility]/pharmacy #1130, 164, cm, 04/22/21 13:37:00 EST, [...] Moderate, # 84 tablet, 0 Refills, Maintenance, 05/30/21 11:22:00 EDT, Tablet, [facility]/pharmacy #1130, Partial fill upon patient request if the prescription is for a schedule II opioid drug., 2 tablet By Mouth... Start Date: 05/30/21 Stop Date: 06/06/21 Status: OrderedPercocet 7.5 mg-325 mg oral tablet 2 tablet, By Mouth, Every 4 hours, PRN Pain , Moderate, for 7 days, # 84 tablet, 0 Refills, Hard Stop 05/30/21 11:22:00 EDT, 05/23/21 11:22:00 EDT, Tablet, [facility]/pharmacy #1130, Partial fill upon patientrequest if the prescription is for a schedule II... Start Date: 05/23/21 Stop Date: 05/30/21 Status: [...] 0 Refills, Maintenance, 03/13/21 13:09:00 EST, Tablet, [facility]/pharmacy #1130, Partial fill upon patient request if the prescription is for a schedule II opioid drug., 164, cm,... Start Date: 03/13/21 Status: OrderedSEROquel 25 mg oral tablet 25 mg, 1, tablet, By Mouth, 2 times a day, PRN, # 60 tablet, Refills 2, Tot. Refills 2, Maintenance,Agitation, 03/21/21 17:43:00 EST, Route to Pharmacy Electronically, [facility]/pharmacy #1130, 164, cm, 12/21/20 14:12:00 EDT, Height Start Date: 03/21/21 Stop Date: 06/19/21 Status: OrderedZoloft 50 mg oral tablet 1 tablet = 50 mg, By Mouth, Daily, # 30 tablet, 5 Refills, Maintenance, 12/21/20 17:43:00 EDT, Tablet, [facility]/pharmacy #1130, Partial fill upon patient [...]
--- OUTSIDE RECORDS SUMMARY | 2021-12-15 06:06 | XMS_ITS | Continuity of Care Document ---
:1970 Author Organization [facility] Address [address] [place] [address]- Care Team Providers Name Role Phone Lesia Cuevas MD Primary Care Physician [place] [facility] Date(s): 04/22/21 - 06/12/[address] [address]- Attending Physician: Not on Staff, Attending MD Referring Physician: Lesia Cuevas MD Allergies, [...] Comment: normal saline diluent added lot number [id number] expires Result Comment: Afluria Medications Albuterol (Eqv-Proventil HFA) 90 mcg/inh inhalation aerosol 2 puffs, Inhalation, Every 6 hours, # 18 Gm, 6 Refills, Maintenance, 04/23/21 13:15:00 EST, [facility]/pharmacy #1130, Partial fill upon patient request if the prescription is for a schedule II opioid drug., 164, cm, 04/22/21 13:37:00 EST, Height Start Date: 04/23/21 Status: Orderedalbuterol 0.083% inhalation solution 3 mL = 2.5 mg, Inhalation, Every 6 hours, PRN shortness of breath, For diagnosis of asthma ICD-10 code J45.998, # 100 each, 11 Refills, Maintenance, 04/22/21 14:09:00 EST, Solution, [facility]/pharmacy #1130,164, cm, 04/22/21 13:37:00 EST, Height Start Date: 04/22/21 Status: Orderedallopurinol 100 mg oral tablet 100 mg, 1, tablet, By Mouth, Daily, # 30 tablet, Refills 5, Tot. Refills 5, Maintenance, 12/21/20 17:44:00 EDT, Route to Pharmacy Electronically, [facility]/pharmacy #1130, 164, cm, 12/21/20 14:12:00 EDT, Height Start Date: 12/21/20 Status: Orderedapixaban 5 mg oral tablet 1 tablet = 5 mg, By Mouth, 2 times a day, # 60 tablet, 5 Refills, Maintenance, 12/21/20 17:44:00 EDT, Tablet, [facility]/pharmacy #1130, Partial fill upon patient request if the prescription is for a scheduleII opioid drug., 164, cm, 12/21/20 14:12:00 EDT,... Start Date: 12/21/20 Status: OrderedAtivan 1 mg oral tablet 1 tablet = 1 mg, By Mouth, 2 times a day, [facility] checked okay to fill on 06/04/2021, # 56 tablet, 0 Refills, Maintenance, 06/04/21 6:51:00 EDT, Tablet, [facility]/pharmacy #1130, 164, cm, 04/22/21 13:37:00 EST, [...] tablet, Refills 0, Route to Pharmacy Electronically, [id number], 164, cm, 12/21/20 14:12:00 EDT, Height Start Date: 01/15/21 Status: Orderedgabapentin 300 mg oral capsule 300 mg, 1, capsule, By Mouth, 3 times a day, # 90 capsule, Refills 5, Tot. Refills 5, Maintenance, 04/22/21 17:04:00 EST, Route to Pharmacy Electronically, [facility]/pharmacy #1130, 164, cm, 04/22/21 13:37:00 EST, [...] 04/22/21 13:57:00 EST, Route to Pharmacy Electronically, [facility]/pharmacy #1130, 164, cm, 04/22/21 13:37:00 EST, [...] 11 Refills, Maintenance, 12/21/20 17:54:00 EDT, Tablet, [facility]/pharmacy #1130, Partial fill upon patient request [...] 0 Refills, Maintenance, 04/22/21 14:12:00 EST, Gum, [facility]/pharmacy #1130, 164, cm, 04/22/21 13:37:00 EST, [...] Moderate, # 84 tablet, 0 Refills, Maintenance, 06/13/21 11:22:00 EDT, Tablet, [facility]/pharmacy #1130, Partial fill upon patient request if the prescription is for a schedule II opioid drug., 2 tablet By Mouth... Start Date: 06/13/21 Stop Date: 06/20/21 Status: OrderedPercocet 7.5 mg-325 mg oral tablet 2 tablet, By Mouth, Every 4 hours, PRN Pain , Moderate, for 7 days, # 84 tablet, 0 Refills, Hard Stop 06/13/21 11:22:00 EDT, 06/06/21 11:22:00 EDT, Tablet, [facility]/pharmacy #1130, Partial fill upon patientrequest if the prescription is for a schedule II... Start Date: 06/06/21 Stop Date: 06/13/21 Status: [...] 0 Refills, Maintenance, 03/13/21 13:09:00 EST, Tablet, [facility]/pharmacy #1130, Partial fill upon patient request if the prescription is for a schedule II opioid drug., 164, cm,... Start Date: 03/13/21 Status: OrderedSEROquel 25 mg oral tablet 25 mg, 1, tablet, By Mouth, 2 times a day, PRN, # 60 tablet, Refills 2, Tot. Refills 2, Maintenance,Agitation, 03/21/21 17:43:00 EST, Route to Pharmacy Electronically, [facility]/pharmacy #1130, 164, cm, 12/21/20 14:12:00 EDT, Height Start Date: 03/21/21 Stop Date: 06/19/21 Status: OrderedZoloft 50 mg oral tablet 1 tablet = 50 mg, By Mouth, Daily, # 30 tablet, 5 Refills, Maintenance, 12/21/20 17:43:00 EDT, Tablet, [facility]/pharmacy #1130, Partial fill upon patient request [...]
--- OUTSIDE RECORDS SUMMARY | 2021-12-15 06:06 | XMS_ITS | Continuity of Care Document ---
:1970 Author Organization [facility] Address [address] [place] [id number]- Care Team Providers Name Role Phone Lesia Cuevas MD Primary Care Physician Encounter [facility] Date(s): 12/05/20 - 01/04/21 [facility] [address] [place] [id number] Attending Physician: Jamaica Aguero Admitting Physician: Admtr, Ar8 Referring Physician: Admtr, Ar8 Allergies, Adverse Reactions, Alerts Substance Reaction Severity [...] Comment: normal saline diluent added lot number [id number] expires Result Comment: Afluria Medications albuterol 0.083% inhalation solution 3 mL = 2.5 mg, Inhalation, Every 6 hours, PRN shortness of breath, # 100 each, 11 Refills, Maintenance, 12/21/20 17:44:00 EDT, Solution, [facility]/pharmacy #1130, 164, cm, 12/21/20 14:12:00 EDT, Height Start Date: 12/21/20 Status: Orderedallopurinol 100 mg oral tablet 100 mg, 1, tablet, By Mouth, Daily, # 30 tablet, Refills 5, Tot. Refills 5, Maintenance, 12/21/20 17:44:00 EDT, Route to Pharmacy Electronically, [facility]/pharmacy #1130, 164, cm, 12/21/20 14:12:00 EDT, Height Start Date: 12/21/20 Status: Orderedapixaban 5 mg oral tablet 1 tablet = 5 mg, By Mouth, 2 times a day, # 60 tablet, 5 Refills, Maintenance, 12/21/20 17:44:00 EDT, Tablet, [facility]/pharmacy #1130, Partial fill upon patient request if the prescription is for a scheduleII opioid drug., 164, cm, 12/21/20 14:12:00 EDT,... Start Date: 12/21/20 Status: OrderedBenadryl 25 mg oral capsule 1 capsule = 25 mg, By Mouth, Every 6 hours, PRN as needed for itching, # 100 capsule, 1 Refills, Acute 01/23/21 9:00:00 EST, 12/21/20 17:53:00 EDT, Tablet, [facility]/pharmacy #1130, Partial fill upon patientrequest if [...] Refills, Maintenance, 12/23/20 22:41:00 EDT, Lotion, [facility]/pharmacy #1130, Partial fill upon patient request [...] Refills, Maintenance, 12/21/20 17:54:00 EDT, Tablet, [facility]/pharmacy #1130, Partial fill upon patient request [...] 17:44:00 EST, 12/21/20 17:44:00 EDT, Gum, [facility]/pharmacy #1130, Partial rao... Start Date: 12/21/20 [...] Maintenance, 12/21/20 17:43:00 EDT, CR Tablet, [facility]/pharmacy #1130, 164, cm, 12/21/20 14:12:00 EDT, Height Start Date: 12/21/20 Status: OrderedPercocet 7.5 mg-325 mg oral tablet 2 tablet, By Mouth, Every 4 hours, PRN Pain , Moderate, # 84 tablet, 0 Refills, Maintenance, 01/03/21 16:02:00 EST, Tablet, [facility]/pharmacy #1130, Partial fill upon patient request if the prescription is for a schedule II opioid drug., 2 tablet By Mouth... Start Date: 01/03/21 Stop Date: 01/10/21 Status: OrderedPortable oxygen compressor Portable oxygen compressor, [...] 0 Refills, Maintenance, 12/21/20 17:43:00EDT, Tablet, [facility]/pharmacy #1130, 164, cm, 12/21/20 14:12:00 EDT, Height Start Date: 12/21/20 Stop Date: 01/20/21 Status: OrderedSEROquel 25 mg oral tablet 25 mg, 1, tablet, By Mouth, 2 times a day, PRN, # 60 tablet, Refills 2, Tot. Refills 2, Maintenance,Agitation, 12/21/20 17:43:00 EDT, Route to Pharmacy Electronically, [facility]/pharmacy #1130, 164, cm, 12/21/20 14:12:00 EDT, Height Start Date: 12/21/20 Stop Date: 03/21/21 Status: OrderedZoloft 50 mg oral tablet 1 tablet = 50 mg, By Mouth, Daily, # 30 tablet, 5 Refills, Maintenance, 12/21/20 17:43:00 EDT, Tablet, [facility]/pharmacy #1130, Partial fill upon patient request [...]
--- OUTSIDE RECORDS SUMMARY | 2021-12-15 06:06 | XMS_ITS | Continuity of Care Document ---
:1970 Author Organization [facility] Address [address] [place] [address]- Care Team Providers Name Role Phone Lesia Cuevas MD Primary Care Phys[place] [facility] [place] 09/22/[address] [address] [facility] Attending Physician: Manny Desir MD Admitting Physician: Manny Desir MD Allergies, Adverse Reactions, Alerts Substance Reaction [...] 05/19/2014:54:00 EDT, Aerosol, Route to Pharmacy Electronically, [id number], [facility]/pharmacy #[id number], 160, cm, 08/16/18 11:38:00 [...] 06/27/19 10:33:00 EDT, Route to Pharmacy Electronically, [facility]/pharmacy #[id number], 160, cm, 08/16/18 11:38:00 EDT, Height, 56.7, kg, 08/16/18 11:38:00 EDT, Dry Weight Start Date: 06/27/19 Stop Date: 12/24/19 Status: OrderedhydrOXYzine pamoate 25 mg oral capsule 1 capsule = 25 mg, By Mouth, 4 times a day, PRN as needed for anxiety, # 40 capsule, 11 Refills, Acute 02/23/20 8:43:00 EST, 05/30/19 8:43:00 EDT, Capsule, [facility]/pharmacy #[id number], 160, cm, 08/16/18 11:38:00 [...] 11 Refills, Maintenance, 05/30/19 8:43:00 EDT, Tablet, [facility]/pharmacy #[id number], 1 tablet By Mouth [...] Refills, Maintenance, 08/24/19 9:24:00 EDT, EC Capsule, [facility]/pharmacy #[id number], 160, cm, 08/16/18 11:38:00 EDT, Height, 56.7, kg, 08/16/18 11:38:00 EDT, Dry Weight Start Date: 08/24/19 Status: OrderedPercocet 7.5 mg-325 mg oral tablet 2 tablet, By Mouth, Every 4 hours, doing 1 day early due to holiday, # 84 tablet, 0 Refills, Maintenance, 09/22/19 8:32:00 EDT, [facility], partial refill upon patient request, 2 tablet By Mouth Every 4 hours,Instr:doing 1 day early d... Start Date: 09/22/19 Status: Orderedsertraline 25 mg oral tablet 1 tablet = 25 mg, By Mouth, Daily, Take 1 tablet daily for 2 weeks, then increase to 2 tablets daily, # 60 tablet, 11 Refills, Maintenance, 05/30/19 8:43:00 EDT, Tablet, [facility]/pharmacy #[id number], 160, cm, 08/16/18 11:38:00 EDT, Height, 56.7, kg, 08/16/18 11... Start Date: 05/30/19 Status: Ordered Problem List Condition Effective Dates Status Health Status Informant Depression(Confirmed) Active Sickle cell anemia(Confirmed) Active Protein-calorie malnutrition, Active moderate(Confirmed) [facility] Care Management [facility], [facility] [phone](Confirmed) TACO (transfusion associated Active circulatory overload)(Confirmed)1 1The [...]
--- OUTSIDE RECORDS SUMMARY | 2021-12-15 06:06 | XMS_ITS | Continuity of Care Document ---
:1970 Author Organization [facility] Address [address] [place] [id number]- Care Team Providers Name Role Phone Lesia Cuevas MD Primary Care Physician Encounter [facility] [place] Date(s): 12/18/20 - 12/18/[address] [address]- Discharge Disposition: A-D/C Walkout Attending Physician: Not [...] 11/26/20 10:09:00 EDT, Route to Pharmacy Electronically, [facility], Partial fill upon patient request [...] 0 Refills, Maintenance, 11/02/20 19:28:00 EDT, Tablet, [facility]/pharmacy #[id number], Partial fill upon patient [...] 12/31/20 12:33:00 EST, 12/10/20 12:33:00 EDT, Tablet, [facility]/pharmacy #[id number], Partial fill up... Start Date: 12/10/20 [...] 06/27/19 10:33:00 EDT, Route to Pharmacy Electronically, [facility]/pharmacy #[id number], 160, cm, 08/16/18 11:38:00 EDT, Height, 56.7, [...] 01/09/21 12:27:00 EST, 12/10/20 12:27:00 EDT, Tablet, [facility]/pharmacy #[id number], Partial fill upon patient request if the prescription is for a s... Start Date: 12/10/20 Stop Date: 01/09/21 Status: OrderedLasix 20 mg oral tablet 20 mg, 1, tablet, By Mouth, Daily, # 7 tablet, Refills 0, Tot. Refills 0, Maintenance, 12/08/20 15:34:00 EDT, Route to Pharmacy Electronically, [facility]/pharmacy #[id number], Partial fill upon patient [...] 03/04/21 17:14:00 EST, 12/10/20 17:14:00 EDT, Gum, [id number], Partial rao... Start Date: 12/10/20 Stop Date: 03/04/21 Status: Orderedomeprazole 20 mg oral delayed release tablet 1 tablet = 20 mg, By Mouth, Daily, # 90 tablet, 0 Refills, Maintenance, 12/10/20 12:35:00 EDT, CR Tablet, [id number], 164, cm, 12/10/20 11:10:00 [...] 0 Refills, Maintenance, 12/13/20 16:02:00 EDT, Tablet, [facility]/pharmacy #[id number], Partial fill upon patient [...] 12/10/20 12:28:00 EDT, Route to Pharmacy Electronically, [facility]/pharmacy #[id number], Partial fillupon patient request if [...] Most recent to oldest [Reference Range]: 1 2 Oxygen Saturation [94-100 %] 90 % 90 % *L* *L* (12/18/20 4:14 PM) (12/18/20 4:08 PM) Pulse Rate [55-90 bpm] 92 bpm *H* (12/18/20 4:14 PM) Blood Pressure [90-138/55-84 mm Hg] 103/60 mm Hg (12/18/20 4:14 PM) Respiratory Rate [16-30 br/min] 20 br/min (12/18/20 4:14 PM) Temperature [96.8-100.4 DegF] 99.1 DegF (12/18/20 4:14 PM) Liters per Minute 3 L/min 3 L/min (12/18/20 4:14 PM) (12/18/20 4:08 PM) Mode of Delivery (Oxygen) Nasal cannula Nasal cannula (12/18/20 4:14 PM) (12/18/20 4:08 PM) Blood pressure sites Arm, right (12/18/20 4:14 PM) Temperature Route Oral (12/18/20 4:14 PM) Social History Social History Type Response Smoking Status 5-9 cigarettes (between 1/4 to 1/2 pack)/day in last 30 days; Patient wants NRT during admission Yes; Other: nicotine gum; entered on: 07/09/20 Sex
--- OUTSIDE RECORDS SUMMARY | 2021-12-15 06:06 | XMS_ITS | Continuity of Care Document ---
:1970 Author Organization [facility] Address [address] [place] [address]- Care Team Providers Name Role Phone Lesia Cuevas MD Primary Care Physician Encounter [facility] Date(s): 08/24/19 - 09/23/[address] [address]- [facility] Allergies, Adverse Reactions, Alerts Substance Reaction [...] 05/19/2014:54:00 EDT, Aerosol, Route to Pharmacy Electronically, [id number], [facility]/pharmacy #[id number], 160, cm, 08/16/18 11:38:00 [...] 06/27/19 10:33:00 EDT, Route to Pharmacy Electronically, [facility]/pharmacy #[id number], 160, cm, 08/16/18 11:38:00 EDT, Height, 56.7, kg, 08/16/18 11:38:00 EDT, Dry Weight Start Date: 06/27/19 Stop Date: 12/24/19 Status: OrderedhydrOXYzine pamoate 25 mg oral capsule 1 capsule = 25 mg, By Mouth, 4 times a day, PRN as needed for anxiety, # 40 capsule, 11 Refills, Acute 02/23/20 8:43:00 EST, 05/30/19 8:43:00 EDT, Capsule, [facility]/pharmacy #[id number], 160, cm, 08/16/18 11:38:00 [...] 11 Refills, Maintenance, 05/30/19 8:43:00 EDT, Tablet, [facility]/pharmacy #[id number], 1 tablet By Mouth [...] Refills, Maintenance, 08/24/19 9:24:00 EDT, EC Capsule, [facility]/pharmacy #[id number], 160, cm, 08/16/18 11:38:00 EDT, Height, 56.7, kg, 08/16/18 11:38:00 EDT, Dry Weight Start Date: 08/24/19 Status: OrderedPercocet 7.5 mg-325 mg oral tablet 2 tablet, By Mouth, Every 4 hours, doing 1 day early due to holiday, # 84 tablet, 0 Refills, Maintenance, 09/22/19 8:32:00 EDT, [facility], partial refill upon patient request, 2 tablet By Mouth Every 4 hours,Instr:doing 1 day early d... Start Date: 09/22/19 Status: Orderedsertraline 25 mg oral tablet 1 tablet = 25 mg, By Mouth, Daily, Take 1 tablet daily for 2 weeks, then increase to 2 tablets daily, # 60 tablet, 11 Refills, Maintenance, 05/30/19 8:43:00 EDT, Tablet, [facility]/pharmacy #[id number], 160, cm, 08/16/18 11:38:00 EDT, Height, 56.7, kg, 08/16/18 11... Start Date: 05/30/19 Status: Ordered Problem List Condition Effective Dates Status Health Status Informant Depression(Confirmed) Active Sickle cell anemia(Confirmed) Active Protein-calorie malnutrition, Active moderate(Confirmed) N Care Management [facility] Active Diane [phone](Confirmed) TACO (transfusion associated Active circulatory overload)(Confirmed)1 1The [...]
--- OUTSIDE RECORDS SUMMARY | 2021-12-15 06:06 | XMS_ITS | Continuity of Care Document ---
:1970 Author Organization [facility] Address [address] [place] [address]- Care Team Providers Name Role Phone Lesia Cuevas MD Primary Care Physician Encounter [facility] Date(s): 11/30/20 - 12/30/[address] [address]- Allergies, Adverse Reactions, Alerts Substance Reaction Severity [...] 01/04/21 17:44:00 EST, 12/21/20 17:44:00 EDT, [id number]... Start Date: 12/21/20 Stop Date: [...] 06/19/21 17:53:00 EDT, 12/21/20 17:53:00 EDT, Capsule, [facility]/pharmacy #[id number], Partial fill [...] 04/20/21 17:44:00 EST, 12/21/20 17:44:00 EDT, Tablet, [facility] [...] 12/27/20 9:54:00 EDT, Route to Pharmacy Electronically, [facility]/pharmacy #[id number], Partial fill [...] Refills, Maintenance, 12/21/20 17:43:00 EDT, CR Tablet, [facility]/pharmacy #1130, 164, cm, 12/21/20 14:12:00 EDT, Height Start Date: 12/21/20 Status: OrderedPercocet 7.5 mg-325 mg oral tablet 2 tablet, By Mouth, Every 4 hours, PRN Pain , Moderate, # 84 tablet, 0 Refills, Maintenance, 12/27/20 16:02:00 EDT, Tablet, [facility]/pharmacy #1130, [...]
--- OUTSIDE RECORDS SUMMARY | 2021-12-15 06:06 | XMS_ITS | Continuity of Care Document ---
:1970 Author Organization [facility] Address [address] [place] [address]- Care Team Providers Name Role Phone Lesia Cuevas MD Primary Care Physician [place] [facility] [place](s): 09/17/20 - 10/17/20 [facility] [address] [place], [place] [address] Attending Physician: Jamaica Aguero Admitting Physician: Jamaica [...] 11 Refills, Maintenance, 05/30/19 8:43:00 EDT,Solution, [id number], 160, cm, 08/16/18 11:38:00 EDT, Height, 56.7, [...] 06/27/19 10:33:00 EDT, Route to Pharmacy Electronically, [facility]/pharmacy #[id number], 160, cm, 08/16/18 11:38:00 EDT, Height, 56.7, [...] 4 hours, PRN as needed for pain, # 84 tablet, 0 Refills, Maintenance, 10/11/20 11:03:00 EDT, Tablet, [facility], Partial fill upon patient request if the prescription is for a schedule II opioid drug., 2 tabl... Start Date: 10/11/20 Stop Date: 10/18/20 Status: OrderedSEROquel 25 mg oral tablet 25 [...]
--- OUTSIDE RECORDS SUMMARY | 2021-12-15 06:06 | XMS_ITS | Continuity of Care Document ---
:1970 Author Organization [facility] Address [address] [place] [address]- Care Team Providers Name Role Phone Not on Staff, PCP Primary Care Physician Unavailable Encounter [facility] Date(s): 08/23/21 - 09/22/[address] [address]- Allergies, Adverse Reactions, Alerts Substance Reaction Severity [...] Comment: normal saline diluent added lot number [id number] expires Result Comment: Afluria Medications allopurinol 100 mg oral tablet 100 mg, 1, tablet, By Mouth, Daily Start Date: 07/03/21 Status: OrderedDaily Lazara oral tablet 1 tablet, By Mouth, Daily Start Date: 07/03/21 Status: OrdereddiphenhydrAMINE 25 mg oral capsule 1 capsule, By Mouth, 3 times a day, PRN NEEDED FOR ITCHING, # 100 capsule, 1 Refills, [id number], 162, cm, 07/06/21 8:31:00 EDT, Height, 60.1, [...] 08/29/21 16:56:00 EDT, Route to Pharmacy Electronically, [facility]/pharmacy #[id number], Partial fill upon patient request if the prescription is for a schedule II opioid drDestinee. Start Date: 08/29/21 Status: OrderedLORazepam 1 mg oral tablet 1 tablet = 1 mg, By Mouth, 2 times a day, take up to tablets per day as needed for anxiety, # 5 tablet, 0 Refills, Maintenance, 08/26/21 13:47:00 EDT, Tablet, [facility]/pharmacy #1130, 160, cm, 08/01/21 21:18:00 EDT, Height, 72.9, kg, 08/01/21 21:18:00 EDT,... Start Date: 08/26/21 Status: Orderednicotine 4 mg oral transmucosal gum See Instructions, CHEW 1 PIECE EVERY 2 HOURS NEEDED FOR SMOKING CESSATION, # 200 gum, 0 Refills, [id number], 160, cm, 08/01/21 21:18:00 EDT, Height, 72.9, kg, 08/01/21 21:18:00 EDT, Dry Weight Start Date: 08/05/21 Status: Orderedomeprazole 20 mg oral enteric coated capsule 1 capsule = 20 mg, By Mouth, Daily Start Date: 07/03/21 Status: OrderedoxyCODONE 10 mg oral tablet 2 tablet = 20 mg, By Mouth, Every 4 hours, PRN Pain , Moderate, # 84 tablet, 0 Refills, Maintenance,09/16/21 9:37:00 EDT, Tablet, [facility], Partial fill upon patient request if the prescription is for a schedule II opioid drug., 160, cm, 06... Start Date: 09/16/21 Status: OrderedProAir HFA 90 mcg/inh inhalation aerosol [...]
--- OUTSIDE RECORDS SUMMARY | 2021-12-15 06:06 | XMS_ITS | Continuity of Care Document ---
:1970 Author Organization [facility] Address [address] [place] [address]- Care Team Providers Name Role Phone Lesia Cuevas MD Primary Care Physician Encounter [facility] Date(s): 11/29/20 - 01/05/[address] [address]- Attending Physician: Not on Staff, Attending MD [...] Comment: normal saline diluent added lot number [id number] expires Result Comment: Afluria Medications albuterol 0.083% inhalation solution 3 mL = 2.5 mg, Inhalation, Every 6 hours, PRN shortness of breath, # 100 each, 11 Refills, Maintenance, 12/21/20 17:44:00 EDT, Solution, [facility]/pharmacy #1130, 164, cm, [...] 01/23/21 9:00:00 EST, 12/21/20 17:53:00 EDT, Tablet, [facility]/pharmacy #1130, [...] 11 Refills, Maintenance, 12/23/20 22:41:00 EDT, Lotion, [facility]/pharmacy #1130, Partial fill upon patient request if the prescription isfor a schedule II opioid drug., 1 application Top... Start Date: 12/23/20 Status: Orderedgabapentin 100 mg oral capsule 100 mg, 1, capsule, By Mouth, 3 times a day, PRN, # 90 capsule, Refills 1, Tot. Refills 1, Maintenance, Pain , Moderate, 12/21/20 17:54:00 EDT, Route to Pharmacy Electronically, [facility]/pharmacy #1130, Partial fill [...] 03/15/21 17:44:00 EST, 12/21/20 17:44:00 EDT, Gum, [facility]/pharmacy #1130, Partial rao... Start Date: 12/21/20 [...] Refills, Maintenance, 12/21/20 17:43:00 EDT, CR Tablet, [facility]/pharmacy #1130, 164, cm, 12/21/20 14:12:00 EDT, Height Start Date: 12/21/20 Status: OrderedPercocet 7.5 mg-325 mg oral tablet 2 tablet, By Mouth, Every 4 hours, PRN Pain , Moderate, # 84 tablet, 0 Refills, Maintenance, 01/03/21 16:02:00 EST, Tablet, [facility]/pharmacy #1130, [...] tablet, 0 Refills, Maintenance, 12/21/20 17:43:00EDT, Tablet, [facility]/pharmacy #1130, 164, cm, 12/21/20 14:12:00 EDT, Height Start Date: 12/21/20 Stop Date: 01/20/21 Status: OrderedSEROquel 25 mg oral tablet 25 mg, 1, tablet, By Mouth, 2 times a day, PRN, # 60 tablet, Refills 2, Tot. Refills 2, Maintenance,Agitation, 12/21/20 17:43:00 EDT, [facility], [facility] [...]
--- OUTSIDE RECORDS SUMMARY | 2021-12-15 06:06 | XMS_ITS | Continuity of Care Document ---
:1970 Author Organization [facility] Address [address] [place] [address]- Care Team Providers Name Role Phone Not on Staff, PCP Primary Care Physician Unavailable Encounter [facility] Date(s): 07/17/21 - 08/16/[address] [address]- Allergies, Adverse Reactions, Alerts Substance Reaction Severity [...] Comment: normal saline diluent added lot number [id number] expires Result Comment: Afluria Medications allopurinol 100 mg oral tablet 100 mg, 1, tablet, By Mouth, Daily Start Date: 07/03/21 Status: OrderedDaily Lazara oral tablet 1 tablet, By Mouth, Daily Start Date: 07/03/21 Status: OrdereddiphenhydrAMINE 25 mg oral capsule 1 capsule, By Mouth, 3 times a day, PRN NEEDED FOR ITCHING, # 100 capsule, 1 Refills, [facility], 162, cm, 07/06/21 8:31:00 EDT, Height, 60.1, [...] # 200 gum, 0 Refills, [facility], 160, cm, 08/01/21 21:18:00 EDT, Height, 72.9, kg, 08/01/21 21:18:00 EDT, Dry Weight Start Date: 08/05/21 Status: Orderedomeprazole 20 mg oral enteric coated capsule 1 capsule = 20 mg, By Mouth, Daily Start Date: 07/03/21 Status: OrderedoxyCODONE 10 mg oral tablet 2 tablet = 20 mg, By Mouth, Every 4 hours, PRN Pain , Moderate, # 84 tablet, 0 Refills, Maintenance,08/12/21 9:53:00 EDT, Tablet, [facility], Partial fill upon patient request if the prescription is for a schedule II opioid drug., 160, cm, 06... Start Date: 08/12/21 Status: OrderedProAir HFA 90 mcg/inh inhalation aerosol [...]
--- OUTSIDE RECORDS SUMMARY | 2021-12-15 06:06 | XMS_ITS | Continuity of Care Document ---
:1970 Author Organization [facility] Address [address] [place] [address]- Care Team Providers Name Role Phone Lesia Cuevas MD Primary Care Physician Encounter [facility] Date(s): 12/21/20 - 02/15/[address] [address]- Attending Physician: Danya Austin MD Admitting Physician: [...] Comment: normal saline diluent added lot number [id number] expires Result Comment: Afluria Medications albuterol 0.083% [...] 17:44:00 EDT, [facility] 164, cm, 12/21/20 14:12:00 EDT, Height Start Date: 12/21/20 Status: Orderedapixaban 5 mg oral tablet 1 tablet = 5 mg, By Mouth, 2 times a day, # 60 tablet, 5 Refills, Maintenance, 12/21/20 17:44:00 EDT, Tablet, [facility]/pharmacy #1130, Partial fill upon patient request if the prescription is for a scheduleII opioid drug., 164, cm, 12/21/20 14:12:00 EDT,... Start Date: 12/21/20 Status: OrderedAtivan 1 mg oral tablet 1 tablet = 1 mg, By Mouth, 2 times a day, [place] checked on 01/16, okay to fill on 01/16 or after, # 56 tablet, 0 Refills, Maintenance, 01/16/21 19:40:00 EST, Tablet, [facility]/pharmacy #1130, 164, cm, 12/21/20 14:12:00 [...] Refills, Maintenance, 12/23/20 22:41:00 EDT, Lotion, [facility]/pharmacy #1130, Partial fill upon patient request if the prescription isfor a schedule II opioid drug., 1 application Top... Start Date: 12/23/20 Status: Orderedfurosemide 20 mg oral tablet 1, tablet, By Mouth, Daily, # 30 tablet, Refills 0, Route to Pharmacy Electronically, [id number], 164, cm, 12/21/20 14:12:00 EDT, Height Start Date: 01/15/21 Status: Orderedgabapentin 100 mg oral capsule 100 mg, 1, capsule, By Mouth, 3 times a day, PRN, # 90 capsule, Refills 1, Tot. Refills 1, Maintenance, Pain , Moderate, 12/21/20 17:54:00 EDT, Route to Pharmacy Electronically, [facility]/pharmacy #1130, Partial fill upon patient request if the prescription... Start Date: 12/21/20 Stop Date: 02/19/21 Status: Orderedhydroxyurea 500 mg oral capsule 1 capsule = 500 mg, By Mouth, 2 times a day, for 30 days, # 60 capsule, 5 Refills, Acute 06/19/21 17:53:00 EDT, 12/21/20 17:53:00 EDT, Capsule, [facility]/pharmacy #1130, Partial fill upon patient request if the prescription is for a schedule II opioid drug.... Start Date: 12/21/20 Stop Date: 06/19/21 Status: OrderedhydrOXYzine hydrochloride 50 mg oral tablet 1 tablet = 50 mg, By Mouth, 3 times a day, PRN as needed for anxiety, for 30 days, # 90 tablet, 3 Refills, Acute 04/20/21 17:44:00 EST, 12/21/20 17:44:00 EDT, Tablet, [facility]/pharmacy #1130, Partial fill upon patient request if the prescription is for a s... Start Date: 12/21/20 Stop Date: 04/20/21 Status: Orderedloratadine 10 mg oral tablet 10 mg, 1, tablet, By Mouth, Daily, # 30 tablet, Refills 2, Tot. Refills 2, Maintenance, 12/27/20 9:54:00 EDT, Route to Pharmacy Electronically, [facility]/pharmacy #1130, Partial fill upon patient [...] Refills, Maintenance, 12/21/20 17:54:00 EDT, Tablet, [facility]/pharmacy #1130, Partial fill upon patient [...] 0 Refills, Maintenance, 02/14/21 16:02:00 EST, Tablet, [facility]/pharmacy #1130, Partial fill upon patient [...] 0 Refills, Maintenance, 12/21/20 17:43:00EDT, Tablet, [facility]/pharmacy #1130, 164, cm, 12/21/20 14:12:00 EDT, Height Start Date: 12/21/20 Stop Date: 01/20/21 Status: OrderedSEROquel 25 mg oral tablet 25 mg, 1, tablet, By Mouth, 2 times a day, PRN, # 60 tablet, Refills 2, Tot. Refills 2, Maintenance,Agitation, 12/21/20 17:43:00 EDT, Route to Pharmacy Electronically, [facility]/pharmacy #1130, 164, cm, 12/21/20 14:12:00 EDT, Height Start Date: 12/21/20 Stop Date: 03/21/21 Status: OrderedZoloft 50 mg oral tablet 1 tablet = 50 mg, By Mouth, Daily, # 30 tablet, 5 Refills, Maintenance, 12/21/20 17:43:00 EDT, Tablet, [facility]/pharmacy #1130, Partial fill upon patient [...]
--- OUTSIDE RECORDS SUMMARY | 2021-12-15 06:06 | XMS_ITS | Continuity of Care Document ---
:1970 Author Organization [facility] Address [address] [place] [id number]- Care Team Providers Name Role Phone Lesia Cuevas MD Primary Care Physician [place] [facility] [place](s): 03/07/21 - 04/06/21 [facility] [place] [facility] [address] [place] [id number]- Attending Physician: Jamaica Aguero Admitting Physician: Jamaica [...] Comment: normal saline diluent added lot number [id number] expires Result Comment: Afluria Medications albuterol 0.083% inhalation solution 3 mL = 2.5 mg, Inhalation, Every 6 hours, PRN shortness of breath, For diagnosis of asthma ICD-10 code J45.998, # 100 each, 11 Refills, Maintenance, 03/15/21 17:29:00 EST, Solution, [facility]/pharmacy #[id number], cm, 03/12/21 15:25:00 EST, Height Start Date: 03/15/21 Status: Orderedallopurinol 100 mg oral tablet 100 mg, 1, tablet, By Mouth, Daily, # 30 tablet, Refills 5, Tot. Refills 5, Maintenance, 12/21/20 17:44:00 EDT, Route to Pharmacy Electronically, [facility]/pharmacy #[id number], 164, cm, 12/21/20 14:12:00 EDT, Height Start Date: 12/21/20 Status: Orderedapixaban 5 mg oral tablet 1 tablet = 5 mg, By Mouth, 2 times a day, # 60 tablet, 5 Refills, Maintenance, 12/21/20 17:44:00 EDT, Tablet, [facility]/pharmacy #[id number], Partial fill upon patient request if the prescription is for a scheduleII opioid drug., 164, cm, 12/21/20 14:12:00 EDT,... Start Date: 12/21/20 Status: OrderedAtivan 1 mg oral tablet 1 tablet = 1 mg, By Mouth, 2 times a day, [facility] checked okay to fill on 03/08, # 56 tablet, 0 Refills, Maintenance, 03/08/21 18:22:00 EST, Tablet, [facility]/pharmacy #[id number], 164, cm, 12/21/20 14:12:00 EDT, Height Start Date: 03/08/21 Status: OrderedBenadryl 25 mg oral capsule 1 capsule = 25 mg, By Mouth, 3 times a day, PRN for itching, # 100 capsule, 1 Refills, Maintenance, 03/14/21 18:27:00 EST, Capsule, [facility]/pharmacy #[id number], Partial fill upon patient request if [...] Refills, Maintenance, 12/23/20 22:41:00 EDT, Lotion, [facility]/pharmacy #[id number], Partial fill upon patient request if the prescription isfor a schedule II opioid drug., 1 application Top... Start Date: 12/23/20 Status: Orderedfurosemide 20 mg oral tablet 1, tablet, By Mouth, Daily, # 30 tablet, Refills 0, Route to Pharmacy Electronically, [facility] STORE [id number], 164, cm, 12/21/20 14:12:00 EDT, Height Start [...] 17:53:00 EDT, 12/21/20 17:53:00 EDT, Capsule, [facility]/pharmacy #[id number], Partial fill upon patient request if [...] Refills, Maintenance, 12/21/20 17:54:00 EDT, Tablet, [facility]/pharmacy #[id number], Partial fill upon patient request if [...] Maintenance, 12/21/20 17:43:00 EDT, CR Tablet, [facility]/pharmacy #[id number], 164, cm, 12/21/20 14:12:00 EDT, Height Start Date: 12/21/20 Status: OrderedPercocet 7.5 mg-325 mg oral tablet 2 tablet, By Mouth, Every 4 hours, PRN Pain , Moderate, # 84 tablet, 0 Refills, Maintenance, 04/04/21 11:22:00 EST, Tablet, [facility]/pharmacy #[id number], Partial fill upon patient request if the prescription is for a schedule II opioid drug., 2 tablet By Mouth... Start Date: 04/04/21 Stop Date: 04/11/21 Status: OrderedPortable oxygen compressor Portable oxygen compressor, [...] 0 Refills, Maintenance, 12/21/20 17:43:00EDT, Tablet, [facility]/pharmacy #[id number], 164, cm, 12/21/20 14:12:00 EDT, Height Start Date: 12/21/20 Stop Date: 01/20/21 Status: OrderedpredniSONE 5 mg oral tablet See Instructions, alternate 4 tabs/d with 3 tabs/d for 2 weeks, # 120 tablet, 0 Refills, Maintenance, 03/13/21 13:09:00 EST, Tablet, [facility]/pharmacy #[id number], Partial fill upon patient request if the prescription is for a schedule II opioid drug., 164, cm,... Start Date: 03/13/21 Status: OrderedSEROquel 25 mg oral tablet 25 mg, 1, tablet, By Mouth, 2 times a day, PRN, # 60 tablet, Refills 2, Tot. Refills 2, Maintenance,Agitation, 03/21/21 17:43:00 EST, Route to Pharmacy Electronically, [facility]/pharmacy #[id number], 164, cm, 12/21/20 14:12:00 EDT, Height Start Date: 03/21/21 Stop Date: 06/19/21 Status: OrderedZoloft 50 mg oral tablet 1 tablet = 50 mg, By Mouth, Daily, # 30 tablet, 5 Refills, Maintenance, 12/21/20 17:43:00 EDT, Tablet, [facility]/pharmacy #[id number], Partial fill upon patient request if [...]
[2021-12-15] MEDS: HYDROmorphone HCl 1 MG/ML SYRINGE 0.5 MG IVPUSH ×2 (06:44→09:35)
[2021-12-15] MEDS: oxyCODONE HCl Immed Release 5 MG TABLET PO (06:48)
--- NOTE | 2021-12-15 06:49 | PM.IMHP ---
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 Patient reports that she has had headache, nausea, abdominal pain, leg pain for the past 3-4 days. Not relieved with her home medications. She reports that her carbon monoxide alarm went off twice in the past few days, she reports that she does not have gas in her house. She denies having any chest pain, has chronic shortness of breath with no worsening, she is on baseline 5 L, denies any urinary symptoms and no lower extremity edema. 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 Bipolar 1 disorder Cocaine abuse DVT (deep venous thrombosis) GERD (gastroesophageal reflux disease) Hypoxia Pneumonia due to 2019 novel coronavirus Pneumonia due to 2019 novel coronavirus PTSD (post-traumatic stress disorder) Sickle cell anemia Sickle cell anemia UTI (urinary tract infection) Family History Other Diabetes Surgical History Hx of cholecystectomy Social History Household Members: Children Housing: Apartment Do you presently have visiting nurse or other home services: Yes Unable to assess alcohol history related to: Unable to respond Alcohol intake: current Alcohol intake frequency: a few times a week Alcohol type: beer Patient Tobacco Use Status: Current everyday Tobacco user Tobacco use type: Cigarette Cigarette Packs Per Day: 0.5 Cigarettes Per Day: 10.0 Second Hand Smoke Exposure: No Substance Use Type: Crack/Cocaine Advance Directives: No Advance Directives Information Provided: Yes service: No Current occupational status: unemployed and disabled Meds Allergies Allergy/AdvReac Type Severity Reaction Status Date / Time prochlorperazine Allergy Severe ANAPHYLAXIS Verified 05/10/20 01:39 [From COMPAZINE] Active Medications: Current Medications Acetaminophen (Acetaminophen 325 Mg Tablet) 650 mg PO Q6H PRN PRN Reason: Pain, Mild (Pain Scale 1-3) Docusate Sodium (Docusate Sodium 100 Mg Capsule) 100 mg PO DAILY PRN PRN Reason: Constipation Hydromorphone HCl (Hydromorphone Hcl 1 Mg/Ml Syringe) 0.5 mg IVPUSH Q4H PRN; Protocol PRN Reason: Pain, Severe (Pain Scale 7-10) Last Admin: 12/15/21 06:44 Dose: 0.5 mg Lactated Ringer's (Lr) 1,000 mls @ 100 mls/hr IVCONT .Q10H [facility] Ondansetron HCl (Ondansetron Hcl 4 Mg/2 Ml Vial) 4 mg IVPUSH Q8H PRN PRN Reason: Nausea and Vomiting Oxycodone HCl (Oxycodone Hcl Immed Release 5 Mg Tablet) 5 mg PO Q6H PRN PRN Reason: Pain, Severe (Pain Scale 7-10) Last Admin: 12/15/21 06:48 Dose: 5 mg Pharmacy Consult (Consult Rx Perform Med Rec) 1 each MISCELLANE ONCE PRN PRN Reason: Consult order Sodium Chloride (0.9 % Sodium Chloride Flush 3 Ml Syringe) 3 ml IVFLUSH QSHIFT [facility] Home Medications Medication Instructions Recorded Confirmed Last Taken Type hydroxyzine pamoate 25 mg capsule 1 cap PO QID PRN anxiety 06/26/20 06/02/21 Unknown History albuterol sulfate 90 mcg/actuation 2 puff PO Q6H 06/02/21 06/02/21 Unknown History aerosol inhaler allopurinol 100 mg tablet 1 tab PO DAILY 06/02/21 06/02/21 Unknown History apixaban 5 mg tablet (Eliquis) 1 tab PO BID 06/02/21 06/02/21 Unknown History gabapentin 300 mg capsule 1 cap PO TID 06/02/21 06/02/21 Unknown History loratadine 10 mg tablet 1 tab PO DAILY 06/02/21 06/02/21 Unknown History multivitamin with folic acid 400 1 tab PO DAILY 06/02/21 06/02/21 Unknown History mcg tablet (Daily-Lazara (with folic acid)) omeprazole 20 mg capsule,delayed 1 cap PO DAILY 06/02/21 06/02/21 Unknown History release oxycodone-acetaminophen 7.5 mg-325 2 tab PO Q4H PRN moderate pain 06/02/21 06/02/21 Unknown History mg tablet quetiapine 25 mg tablet 1 tab PO BID PRN Anxiety 06/02/21 06/02/21 Unknown History Physical Exam Vital Signs and Narrative: Vital Signs: Last Vital Signs Temp 99.0 F 12/15/21 02:14 Pulse 85 12/15/21 02:14 Resp 20 12/15/21 02:14 BP 119/75 12/15/21 02:14 Pulse Ox 100 12/15/21 02:14 O2 Del Method 12/15/21 02:14 BMI result Body Mass Index 24.0 Const: Other: Appears fidgety, anxious General: cooperative and no acute distress Orientation/consciousness: patient oriented x3 Eyes: General: appearance normal, both eyes and all related structures Resp: Effort & Inspection: normal respiratory effort Auscultation: clear to auscultation bilaterally Cardio: Rate: regular rate Rhythm: regular rhythm GI: Palpation (GI): Soft to palpation Auscultation: normal bowel sounds Skin: General skin exam: no rashes or lesions noted Neuro: General: patient oriented x3 Cognition (Neuro): normal cognition Extrem: General: Yes normal to inspection and Yes no pedal edema Results Labs CBC and Chem 7: 12/15/21 03:40 12/15/21 03:43 Labs: Laboratory Results - last 24 hr 12/15/21 12/15/21 12/15/21 03:12 03:40 03:40 MCV 96.5 MCH 35.5 H MCHC 36.8 H RDW 21.3 H Plt Count 109 L D MPV 12.7 H Immature Gran % (Auto) Cancelled Neut % (Auto) Cancelled Lymph % (Auto) Cancelled Gonzales % (Auto) Cancelled Eos % (Auto) Cancelled Baso % (Auto) Cancelled Lymph # (Auto) Cancelled Gonzales # (Auto) Cancelled Eos # (Auto) Cancelled Baso # (Auto) Cancelled Abs Immat Gran (auto) Cancelled Absolute Neuts (auto) Cancelled Absolute Nucleated RBC 1.890 H Nucleated RBC % (auto) 12.5 H Neutrophils % (Manual) 44 L Band Neutrophils % 3 Lymphocytes % (Manual) 36 Monocytes % (Manual) 13 H Eosinophils % (Manual) 3 Basophils % (Manual) 1 Abs Neuts (Manual) 7.1 Lymphocytes # (Manual) 5.4 H Monocytes # (Manual) 2.0 H Eosinophils # (Manual) 0.5 H Basophils # (Manual) 0.2 Nucleated RBCs 25 H Smudge Cells PRESENT Platelet Estimate SLIGHTLY DECREASED Plt Morphology Comment NORMAL RBC Morphology NOTED Polychromasia 1+ (0-2) Basophilic Stippling 1+ (0-2) Macrocytosis 2+ (15-30) Pappenheimer Bodies PRESENT Sickle Cells 3+ (>5) Target Cells 1+ (5-14) [place] Bodies PRESENT Absolute Retic 0.268 H Percent Retic 13.4 H Immature Retic Fraction 53.0 H Retic Hgb Equivalent 38.1 H PT 14.2 H INR 1.2 H Anion Gap Estim Creat Clear Calc Estimated GFR Random Glucose Lactic Acid Calcium Total Bilirubin AST ALT Alkaline Phosphatase Total Protein Albumin Lipase Ethyl Alcohol COVID-19 ([facility]) Negative COVID-19 Clin Com See Note 12/15/21 12/15/21 03:43 05:15 MCV MCH MCHC RDW Plt Count MPV Immature Gran % (Auto) Neut % (Auto) Lymph % (Auto) Gonzales % (Auto) Eos % (Auto) Baso % (Auto) Lymph # (Auto) Gonzales # (Auto) Eos # (Auto) Baso # (Auto) Abs Immat Gran (auto) Absolute Neuts (auto) Absolute Nucleated RBC Nucleated RBC % (auto) Neutrophils % (Manual) Band Neutrophils % Lymphocytes % (Manual) Monocytes % (Manual) Eosinophils % (Manual) Basophils % (Manual) Abs Neuts (Manual) Lymphocytes # (Manual) Monocytes # (Manual) Eosinophils # (Manual) Basophils # (Manual) Nucleated RBCs Smudge Cells Platelet Estimate Plt Morphology Comment RBC Morphology Polychromasia Basophilic Stippling Macrocytosis Pappenheimer Bodies Sickle Cells Target Cells [place] Bodies Absolute Retic Percent Retic Immature Retic Fraction Retic Hgb Equivalent PT INR Anion Gap 15 Estim Creat Clear Calc 43.9 Estimated GFR 43 Random Glucose 89 Lactic Acid 0.9 Calcium 8.5 Total Bilirubin 3.2 H AST 194 H ALT 64 H Alkaline Phosphatase 221 H D Total Protein 7.5 Albumin 3.5 Lipase 120 H Ethyl Alcohol < 10 COVID-19 ([facility]) COVID-19 Clin Com Imaging Radiologist's Impressions: Impressions Chest X-Ray 12/15/21 04:04 IMPRESSION: Stable portable radiographic appearance of the chest demonstrating chronic pulmonary fibrotic changes hazy airspace opacity bilaterally. Assessment and Plan (1) Sickle cell anemia with crisis: Status: Acute (2) Elevated liver function tests: Status: Acute Plan 51-year-old female with past medical history of sickle cell disease, presents to the hospital in sickle cell crisis # sickle cell anemia with crisis - has significant drop in hemoglobin, generalized body aches - patient will be receiving 1 unit of PRBC - IV fluid - at this time there is no definite source of infection, although chest x-ray shows possible bilateral hazy opacities, called radiology for clarification - will tx with iv abx for now - ABG ordered - UA pending - follow CBC # elevated LFTs - likely secondary to sickle cell crisis - will follow LFTs # chronic hypoxic respiratory failure - reports that she is on baseline 5 L of oxygen at baseline since catching COVID - O2 stable # history of alcohol abuse - denies using alcohol at this time - monitor for any withdrawals DVT prophylaxis: SCDs in the setting of acute crisis Pt will require a minimum 2 night hospital stay for sickle crisis, requiring blood transfusion, Quality Stroke Does the patient have a stroke diagnosis?: No VTE Prior VTE?: No VTE Risk Level:: Medical - moderate - high VTE Device Contraindication: N/A - Device Ordered VTE Drug Contraindication: Treatment Not Indicated
[2021-12-15] MEDS: Azithromycin 500 MG TABLET PO (07:52)
[2021-12-15] MEDS: Lactated Ringers 1,000 ML 100 ML IVCONT ×3 (07:57→23:51)
--- NOTE | 2021-12-15 09:07 | PHA.MEDREC ---
Pharmacy Consult ? Medication Reconciliation Pharmacy has completed the medication reconciliation. SPOKE WITH PATIENT IN THE ED
[2021-12-15] MEDS: Acetaminophen 325 MG TABLET 650 MG PO (09:52)
--- NOTE | 2021-12-15 10:24 | PC.NURSE ---
pt. in sicle cell crisis, complaining of pain 10/02, Dilaudid helps, provider increased dose to 1mg. complains of itchy skin all over, provider gave her Benadryl 25 mg IV. pt states it helped. She seems more calm and comfortable. RBC now running. no adverse reaction noted.
--- NOTE | 2021-12-15 10:58 | PC.NURSE ---
Pt restless, removes 02 frequently, placed on Oxy mask to assist in compliance. Pt with left sided EJ, positional, blood frequently stopped with pt positioning.
--- NOTE | 2021-12-15 12:31 | PC.NURSE ---
finished rbc transfusion. No adverse reaction noted. patient complains of being itchy (unrelated to transfusion) but goes right back to sleep. keept taking nc off. o2 sat in the 60s. put nc back on sat 92
--- NOTE | 2021-12-15 12:42 | PM.EVENT ---
Event Note Date of Service: 12/15/21 Event Note: Patient already seen and examined hospitalist service earlier, Seen and examined again Still has significant body pains no sob Physical exam: Unchanged from this morning Assessment plan-coordinated H&P note. Sickle cell crisis-PRBC ordered, pain medication Dilaudid adjusted, continue oxygen, encouraged for hydration. Will continue to monitor.
[2021-12-15] MEDS: HYDROmorphone HCl 1 MG/ML SYRINGE IVPUSH ×3 (13:56→21:55)
[2021-12-15 15:43] LABS: Anion Gap 17 (12-20); Blood Urea Nitrogen 16 mg/dL (9-16); Calcium 8.4 mg/dL (8.4-10.2); Carbon Dioxide 18 mmol/L (22-29); Chloride 110 mmol/L (96-108); Creatinine Clr Calc Pharmacy 56.4; Estimated Glomerular Filt Rate 57; Glucose Random 95 mg/dL (60-115); Potassium 4.9 mmol/L (3.3-5.1); Sodium 140 mmol/L (135-145)
--- NOTE | 2021-12-15 15:49 | PC.NURSE ---
report attempted at 1529, RN taking pt off the floor at this time report attempted again at 1549, RN taking pt on break now, will re-attempt later
[2021-12-15 18:41] LABS: Hematocrit 23.5 % (37.0-47.0); Hemoglobin 8.3 g/dl (12.0-16.0); Mean Corpuscular HGB Conc 35.3 g/dl (31.0-35.0); Mean Corpuscular Hemoglobin 33.2 pg (27.0-33.0); Mean Platelet Volume 12.7 fL (9.4-12.3); NRBC Pct Auto 12.3 /100WBC (0.0-0.2); PLT CLUMP 1; Red Cell Distribution Width 19.3 % (11.0-16.0); WBC ABN SCTR FOR CBC 1
[2021-12-15 19:22] LABS: Platelet Count 123 X10*3/uL (160-400); White Blood Count 15.4 X10*3/uL (4.8-10.8)
[2021-12-15] MEDS: diphenhydrAMINE HCL 25 MG CAPSULE PO (21:54)
[2021-12-15] MEDS: Gabapentin 300 MG CAPSULE PO (21:54)
[2021-12-15] MEDS: Hydroxyurea 500 MG CAPSULE 1000 MG PO (21:54)
[2021-12-15] MEDS: Apixaban 5 MG TABLET PO (22:04)
[2021-12-16] VITALS (7 sets, daily range): BP systolic 107–147; BP diastolic 59–88; PULSE 63–84; RESP 16–20; TEMP 36.1–36.6; O2SAT 95–99
[2021-12-16] MEDS: HYDROmorphone HCl 1 MG/ML SYRINGE IVPUSH ×5 (02:27→20:20)
[2021-12-16] MEDS: Omeprazole 20 MG CAPSULE.DR PO (06:42)
[2021-12-16] MEDS: diphenhydrAMINE HCL 25 MG CAPSULE PO (06:47)
[2021-12-16] MEDS: Multivitamin TABLET 1 TAB PO (07:41)
[2021-12-16] MEDS: Loratadine 10 MG TABLET PO (07:41)
[2021-12-16] MEDS: cefTRIAXone sodium 1 GM in 0.9 % Sodium Chloride 50 ML IV (07:41)
[2021-12-16] MEDS: Gabapentin 300 MG CAPSULE PO ×3 (07:41→20:03)
[2021-12-16] MEDS: allopurinoL 100 MG TABLET PO (07:41)
[2021-12-16] MEDS: Apixaban 5 MG TABLET PO ×2 (07:41→20:03)
[2021-12-16] MEDS: 0.9 % Sodium Chloride Flush 3 ML SYRINGE IVFLUSH (07:47)
[2021-12-16] MEDS: Azithromycin 500 MG TABLET PO (07:47)
[2021-12-16] MEDS: oxyCODONE HCl Immed Release 5 MG TABLET PO (09:20)
[2021-12-16] MEDS: Acetaminophen 325 MG TABLET 650 MG PO (09:20)
--- NOTE | 2021-12-16 09:59 | MHC.CM.PN ---
MEET WITH PATIENT FOR CM ASSESSMENT: FROM HOME W/ [employer] [facility] ~40 HRS PER WEEK [facility]CP [facility] DE ANDA [facility]- NO BOOSTERS REPORTS HAVING HCP 5L OXYGEN @ HOME FROM [facility] D/C PLAN: HOME W/ [facility]UMPTION [facility] [employer] [facility] NEEDS TRANSPORT @ D/C-[facility]
[2021-12-16] MEDS: diphenhydrAMINE HCL 50 MG/ML VIAL 25 MG IVPUSH (10:17)
[2021-12-16] MEDS: Lactated Ringers 1,000 ML 100 ML IVCONT ×2 (10:17→20:02)
[2021-12-16] MEDS: QUEtiapine Fumarate 25 MG TABLET PO (11:30)
[2021-12-16] MEDS: hydrOXYzine HCL 50 MG TABLET PO (11:30)
--- NOTE | 2021-12-16 12:24 | P.PNIM_ITS ---
Subjective Subjective Date of Service: 12/16/21 Interval History: Sickle cell crisis Review of Systems Patient still has significant body pains, also gets itching with pain medication Denies any nausea vomiting or fever or chills or short of breath. Physical Exam Vital Signs: Vital Signs: Last Vital Signs Temp 97.7 F 12/16/21 10:55 Pulse 76 12/16/21 10:55 Resp 18 12/16/21 10:55 BP 147/88 H 12/16/21 10:55 Pulse Ox 95 12/16/21 10:55 O2 Del Method 12/16/21 10:55 O2 Flow Rate 5 12/16/21 10:55 BMI result Body Mass Index 24.0 Appearance: Alert.? Oriented X3.body pains.? cvs: rrr, [id number] , no murmur res: air entry is fair , no rales or wheezin abd: no rebound or guarding ,nt, bs present. ext pulses present , no cyanosis . neuro: axo3 , nonfocal. Objective Data Active Medications Acetaminophen (Acetaminophen 325 Mg Tablet) 650 mg PO Q6H PRN PRN Reason: Pain, Mild (Pain Scale 1-3) Last Admin: 12/16/21 09:20 Dose: 650 mg Documented By: SUYAPA Albuterol Sulfate (Albuterol Sulfate 90 Mcg 8 Gm Inhaler) 2 puff INHALE Q6H PRN PRN Reason: Shortness Of Breath Or Wheezing Allopurinol (Allopurinol 100 Mg Tablet) 100 mg PO DAILY [facility] Last Admin: 12/16/21 07:41 Dose: 100 mg Documented By: SUYAPA Apixaban (Apixaban 5 Mg Tablet) 5 mg PO BID [facility] Last Admin: 12/16/21 07:41 Dose: 5 mg Documented By: SUYAPA Azithromycin (Azithromycin 500 Mg Tablet) 500 mg PO Q24H [facility] Last Admin: 12/16/21 07:47 Dose: 500 mg Documented By: SUYAPA Diphenhydramine HCl (Diphenhydramine Hcl 50 Mg/Ml Vial) 12.5 mg IVPUSH Q6H PRN PRN Reason: itichin Docusate Sodium (Docusate Sodium 100 Mg Capsule) 100 mg PO DAILY PRN PRN Reason: Constipation Gabapentin (Gabapentin 300 Mg Capsule) 300 mg PO TID [facility] Last Admin: 12/16/21 07:41 Dose: 300 mg Documented By: SUYAPA Hydromorphone HCl (Hydromorphone Hcl 1 Mg/Ml Syringe) 1 mg IVPUSH Q4H PRN; Protocol PRN Reason: Pain, Severe (Pain Scale 7-10) Last Admin: 12/16/21 11:30 Dose: 1 mg Documented By: SUYAPA Hydroxyurea (Hydroxyurea 500 Mg Capsule) 1,000 mg PO BEDTIME [facility] Last Admin: 12/15/21 21:54 Dose: 1,000 mg Documented By: SHAYNA Hydroxyzine HCl (Hydroxyzine Hcl 50 Mg Tablet) 50 mg PO TID PRN PRN Reason: anxiety Last Admin: 12/16/21 11:30 Dose: 50 mg Documented By: SUYAPA Lactated Ringer's (Lr) 1,000 mls @ 100 mls/hr IVCONT .Q10H [facility] Last Admin: 12/16/21 10:17 Dose: 100 mls/hr Documented By: SUYAPA Ceftriaxone Sodium 1 gm/ (Sodium Chloride) 50 mls @ 100 mls/hr IV Q24H [facility] Last Infusion: 12/16/21 08:47 Dose: 0 mls/hr Documented By: SUYAPA Loratadine (Loratadine 10 Mg Tablet) 10 mg PO DAILY [facility] Last Admin: 12/16/21 07:41 Dose: 10 mg Documented By: SUYAPA Multivitamins/Vitamin C (Multivitamin Tablet) 1 tab PO DAILY [facility] Last Admin: 12/16/21 07:41 Dose: 1 tab Documented By: SUYAPA Omeprazole (Omeprazole 20 Mg Capsule.) 20 mg PO DAILY@0630 [facility] Last Admin: 12/16/21 06:42 Dose: 20 mg Documented By: SHAYNA Ondansetron HCl (Ondansetron Hcl 4 Mg/2 Ml Vial) 4 mg IVPUSH Q8H PRN PRN Reason: Nausea and Vomiting Oxycodone HCl (Oxycodone Hcl Immed Release 5 Mg Tablet) 5 mg PO Q6H PRN PRN Reason: Pain, Severe (Pain Scale 7-10) Last Admin: 12/16/21 09:20 Dose: 5 mg Documented By: SUYAPA Oxycodone HCl (Oxycodone Hcl Immed Release 5 Mg Tablet) 20 mg PO Q4H PRN PRN Reason: Pain (Scale Score 4-6) Pharmacy Consult (Consult Rx Perform Med Rec) 1 each MISCELLANE ONCE PRN PRN Reason: Consult order Quetiapine Fumarate (Quetiapine Fumarate 25 Mg Tablet) 25 mg PO BID PRN PRN Reason: Agitation Last Admin: 12/16/21 11:30 Dose: 25 mg Documented By: SUYAPA Sodium Chloride (0.9 % Sodium Chloride Flush 3 Ml Syringe) 3 ml IVFLUSH QSHIFT [facility] Last Admin: 12/16/21 07:47 Dose: 3 ml Documented By: SUYAPA Labs CBC & Chem 7: 12/15/21 18:28 12/15/21 14:51 Labs: Laboratory Results - last 24 hr 12/15/21 12/15/21 12/15/21 03:12 06:50 14:51 MCV MCH MCHC RDW Plt Count MPV Absolute Nucleated RBC Nucleated RBC % (auto) Anion Gap 17 Estim Creat Clear Calc 56.4 Estimated GFR 57 Random Glucose 95 Calcium 8.4 Influenza Type A ([facility]) Cancelled Influenza Type B ([facility]) Cancelled Influenza A & B Note Cancelled Crossmatch ([facility]G) See Detail 12/15/21 18:28 MCV 94.0 MCH 33.2 H MCHC 35.3 H RDW 19.3 H Plt Count 123 L MPV 12.7 H Absolute Nucleated RBC 1.890 H Nucleated RBC % (auto) 12.3 H Anion Gap Estim Creat Clear Calc Estimated GFR Random Glucose Calcium Influenza Type A ([facility]) Influenza Type B ([facility]) Influenza A & B Note Crossmatch (AHG) Microbiology Microbiology Results: Microbiology 12/15/21 05:15 Blood Culture - Preliminary Blood - Venous No growth after 24 hours. 12/15/21 05:15 Blood Culture - Preliminary Blood - Venous No growth after 24 hours. Assessment and Plan (1) Sickle cell anemia with crisis: Status: Resolved (2) DVT (deep venous thrombosis): Plan 51-year-old female with history of sickle cell disease presents to the hospital with complaints of chest pain 1.Sickle cell crisis - patient appears comfortable, will wean IV Dilaudid, Hgb stable, wbc improvin, no fever cxr seems uncahnged ua-has rbc 's , bacteria,wbc normal,LE: neg, denies any urological c/o will add urine cultures. WBC likely reactive has had intermittent leukocytosis in the past, follow clinical course Recommend outpatient follow-up with Hematology at [facility] since hydroxyurea discontinued due to worsening pulmonary fibrosis 2.Acute on chronic hypoxic respiratory failure due to acute diastolic heart failure Feeling better today, now on 6 L of oxygen by nasal cannula, at home use 5 L of oxygen, will DC IV Lasix drip BNP normal, BMP stable -echocardiogram showed EF 60-65% abnormal diastolic function ,CT chest showed mild pulmonary cogestion and worsening fibrosis -titrate O2 to keep finger oximetry greater than 90 3.DVT -eliquis as ordered 4. GERD continue PPI 5. history of bipolar disorder not on any medication, no behavioral issues noted 6. UA-Microhematuria: ua-has rbc 's , bacteria,wbc normal,LE: neg, denies any urological c/o will add urine cultures. consider discussing with urology if needs any workup ?DVT prophylaxis:? Eliquis Full Code inpatient stay:due sickle cell crisis, with fever and rising WBC count need continued IV analgesics and further workup for leukocytosis. Quality Stroke Does the patient have a stroke diagnosis?: No VTE Prior VTE?: No VTE Risk Level:: Medical - moderate - high VTE Device Contraindication: N/A - Device Ordered VTE Drug Contraindication: Treatment Not Indicated
[2021-12-16] MEDS: polyethylene glycoL 3350 17 GM POWD.PACK PO ×2 (14:50→20:03)
[2021-12-16] MEDS: diphenhydrAMINE HCL 50 MG/ML VIAL 12.5 MG IVPUSH (20:11)
[2021-12-16 20:34] LABS: Glucose, Whole Blood 102 mg/dL (60-115)
[2021-12-17] MEDS: HYDROmorphone HCl 1 MG/ML SYRINGE IVPUSH ×3 (00:42→09:50)
[2021-12-17] MEDS: QUEtiapine Fumarate 25 MG TABLET PO (00:43)
[2021-12-17] MEDS: hydrOXYzine HCL 50 MG TABLET PO (00:43)
[2021-12-17] MEDS: 0.9 % Sodium Chloride Flush 3 ML SYRINGE IVFLUSH ×2 (00:43→07:42)
[2021-12-17 04:00] VITALS: BP 115/71; PULSE 73; RESP 18; TEMP 36.6; O2SAT 98
[2021-12-17] MEDS: diphenhydrAMINE HCL 50 MG/ML VIAL 12.5 MG IVPUSH ×2 (04:46→11:23)
--- NOTE | 2021-12-17 05:16 | PC.NURSE ---
Patient with IJ in left side of neck. Pain management with Dilaudid Q4hrs and effective. At 4.40am dose, Patient demanding another Dilaudid dose because she did not feel RN push the dose. RN insisted not giving another dose, however, patient should wait to feel the effect. Med was effective, patient sleeping soon after.
[2021-12-17] MEDS: Omeprazole 20 MG CAPSULE.DR PO (05:58)
[2021-12-17] MEDS: Loratadine 10 MG TABLET PO (07:40)
[2021-12-17] MEDS: Apixaban 5 MG TABLET PO (07:40)
[2021-12-17] MEDS: Azithromycin 500 MG TABLET PO (07:40)
[2021-12-17] MEDS: Gabapentin 300 MG CAPSULE PO (07:40)
[2021-12-17] MEDS: Multivitamin TABLET 1 TAB PO (07:40)
[2021-12-17] MEDS: oxyCODONE HCl Immed Release 5 MG TABLET PO (07:40)
[2021-12-17] MEDS: allopurinoL 100 MG TABLET PO (07:41)
[2021-12-17] MEDS: Acetaminophen 325 MG TABLET 650 MG PO (07:41)
[2021-12-17] MEDS: polyethylene glycoL 3350 17 GM POWD.PACK PO (07:42)
[2021-12-17] MEDS: cefTRIAXone sodium 1 GM in 0.9 % Sodium Chloride 50 ML IV (07:42)
[2021-12-17 07:54] VITALS: BP 120/61; PULSE 72; RESP 18; TEMP 36; O2SAT 99
--- NOTE | 2021-12-17 09:25 | P.DS_ITS ---
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 Patient reports that she has had headache, nausea, abdominal pain, leg pain for the past 3-4 days.? Not relieved with her home medications.? She reports that her carbon monoxide alarm went off twice in the past few days, she reports that she does not have gas in her house.? She denies having any chest pain, has chronic shortness of breath with no worsening, she is on baseline 5 L, denies any urinary symptoms and no lower extremity edema. Vitals were noted for 100% oxygen on 5 L, otherwise unremarkable Labs are significant for WBC count of 15, which is chronically elevated, hemoglobin of 7.1, medic of 19.3 which is a drop of 9.5 and 27.3 from May of this year, high reticulocyte count, INR 1.2, total bili of 3.2, AST of 194, ALT of 64, alk-phos of 221, COVID-19 negative, Chest x-ray shows stable portable radiographic appearance of the chest demonstrating chronic pulmonary fibrotic changes hazy airspace opacity bilaterally Hospital Course Patient admitted to the general for medical floor; she was transfused 1 unit of packed red cells with good response in her hemoglobin. Initial chest x-ray demonstrated questionable airspace opacity for which she was treated with ceftriaxone and azithromycin without issue. She continued to require only 5 L as per outpatient settings. Over the next 48 hours she responded well the therapy and at this time is asking for discharge. At this time a blue she is medically acceptable for same. She will return home and follow-up with her sterile technician at [facility]. There essentially have been no changes to her medical regimen at this time. Time Spent with Patient Time attestation: Total time spent providing and/or coordinating discharge services: Discharge coordination time: Greater than 30 minutes Quality: Safe Use of Opioids Does Pt have an Active Cancer Diagnosis on the Problem List?: No Quality: Stroke Does the patient have a stroke diagnosis?: No Physical Exam Vital Signs: Vital Signs: Last Vital Signs Temp 96.8 F 12/17/21 07:54 Pulse 72 12/17/21 07:54 Resp 18 12/17/21 07:54 BP 120/61 12/17/21 07:54 Pulse Ox 99 12/17/21 07:54 O2 Del Method 12/17/21 07:54 O2 Flow Rate 5 12/17/21 07:54 BMI result Body Mass Index 24.0 Const: Other: Awake alert oriented x3 resting comfortably in bed Resp: Other: Diminished at bases with end inspiratory crackles heard to inferior scapular border; coarse wheezes that clear with a cough upper lobes Cardio: Other: No S4; positive S1-S2; no S3 murmurs rubs or gallops GI: Other: Soft nontender nondistended normoactive bowel sounds. No overt peritoneal signs Neuro: Other: Cranial nerves 2-12 grossly intact as tested. Motor is 5/5 all extremities. Sensation is intact. Cognition is appropriate Extrem: Other: No edema bilaterally DS: Data Data Completed and Pending Completed studies during hospitalization [Text1]: Procedures Detoxification Services for Substance Abuse Treatment (12/05/19) Insertion of Infusion Device into Right Subclavian Vein, Percutaneous Approach (06/26/20) Insertion of Infusion Device into Superior Vena Cava, Percutaneous Approach (06/26/20) Transfusion of Nonautologous Red Blood Cells into Peripheral Vein, Percutaneous Approach (06/02/21) Labs on day of discharge: Laboratory Results - last 24 hr 12/16/21 20:23 POC Glucose 102 Preliminary micro results at discharge 12/15/21 05:15 Blood Culture - Preliminary Blood - Venous No growth after 48 hours. 12/15/21 05:15 Blood Culture - Preliminary Blood - Venous No growth after 48 hours. Discharge Plan Discharge Anticipated Discharge Date/Time: 12/17/21 09:30 Patient Disposition: Home Health Service Discharge Diagnosis: Sickle Cell Crisis Referrals: Physician,Unknown J [Primary Care Provider] - 1 Week Discharge Medications: New doxycycline hyclate 100 mg tablet 100 mg PO BID Qty: 20 0RF Continued hydroxyurea 500 mg capsule 2 cap PO BEDTIME metronidazole 500 mg tablet 1 tab PO BID Rx Instructions: STARTED 12/09/21 X 7 DAYS hydroxyzine HCl 50 mg tablet 1 tab PO TID PRN (Reason: anxiety) diphenhydramine HCl [Banophen] 25 mg capsule 1 cap PO TID PRN (Reason: itch) clindamycin phosphate 1 % lotion 1 appl topical BID Rx Instructions: APPLY TO LEFT ARMPIT LESIONS/BUMPS oxycodone 10 mg tablet 2 tab PO Q4H PRN (Reason: Pain (Scale Score 4-6)) quetiapine 25 mg tablet 1 tab PO BID PRN (Reason: Agitation) allopurinol 100 mg tablet 1 tab PO DAILY gabapentin 300 mg capsule 1 cap PO TID omeprazole 20 mg capsule,delayed release(DR/EC) 1 cap PO DAILY@0630 albuterol sulfate 90 mcg/actuation HFA aerosol inhaler 2 puff PO Q6H PRN (Reason: Shortness Of Breath Or Wheezing) loratadine 10 mg tablet 1 tab PO DAILY multivitamin with folic acid [Daily-Lazara (with folic acid)] 400 mcg tablet 1 tab PO DAILY Eliquis 5 mg tablet 1 tab PO BID Discharge Orders: Discharge Order (Routine); Ordered 12/17/21 Ordered By: Randy Camacho Diet: Advance to usual diet Activity on Discharge: As tolerated Stand Alone Forms: Patient Portal Discharge page Care Plan Goals: Complete course of doxycycline as ordered Health Concerns: Resume all medication as taken prior to hospital Plan of Treatment: Follow-up with [facility] [facility] as scheduled Assessment: See discharge summary
--- NOTE | 2021-12-17 09:29 | MHC.CM.PN ---
PATIENT IS DC HOME - SELF CARE RN AWARE OF PLAN
--- NOTE | 2021-12-17 11:12 | MHC.CM.PN ---
[facility] to transport patient home today between noon-1230. RN and patient aware.
[2021-12-17 11:44] VITALS: BP 93/55; PULSE 84; RESP 20; TEMP 36.1; O2SAT 92
== END 2021-12-17 13:25 | disposition home health service (06) | DRG 812 ==
LOC: HO.ED 05:50 → HO.EDOVER 06:01 → HO.S3 14:55
PROVIDERS: Internal Medicine; Admitting Provider Internal Medicine; Emergency Provider Student in an Organized Health Care Education/Training Program; PCP Student in an Organized Health Care Education/Training Program; Visit Provider Hospitalist
DX: D57.00 Hb-SS disease with crisis, unspecified (principal); J96.11 Chronic respiratory failure with hypoxia; F31.9 Bipolar disorder, unspecified; F10.11 Alcohol abuse, in remission; K21.9 Gastro-esophageal reflux disease without esophagitis; R31.21 Asymptomatic microscopic hematuria; F43.10 Post-traumatic stress disorder, unspecified; F17.210 Nicotine dependence, cigarettes, uncomplicated; Z99.81 Dependence on supplemental oxygen; Z71.6 Tobacco abuse counseling; Z86.718 Personal history of other venous thrombosis and embolism; Z79.01 Long term (current) use of anticoagulants; Z79.899 Other long term (current) drug therapy
CPT/HCPCS: 36415; 36600; 71045; 80048; 80053; 82077; 82947; 83605; 83690; 85007; 85025; 85027; 85045; 85610; 86850; 86900; 86901; 86902; 86920; 86922; 87040; 87502; 87635; 93005; 99285; J0696; J1170; J1200; P9016

== ENCOUNTER 2022-12-14 05:02 | Inpatient (IN) | payer MEDICARE, MEDICAID, SELFPAY ==
--- NOTE | ~2022-12-14 | XR_ITS ---
EXAMINATION: XR CHEST CLINICAL INFORMATION: Chest pain. History of sickle cell COMPARISON: Frontal view 12/15/21 TECHNIQUE: 2 views of the chest were obtained. FINDINGS: [place] associated with a right-sided vascular catheter. The cardiac size is top normal. There is no mediastinal or hilar mass. The central vessels are prominent. There is no alveolar edema. There are diffuse coarse opacities in the mid lower lung zones without a focal pneumonia. No significant pleural fluid or pneumothorax. No suspicious focal bony lesion. XR/XR chest 2V IMPRESSION: Diffuse coarse lung opacities similar to previous. No acute dense focal pneumonia. No significant pleural fluid or pneumothorax
[2022-12-14 05:07] VITALS: BP 116/76; BP 126/78; PULSE 85; PULSE 86; RESP 18; TEMP 36.9; O2SAT 96; O2SAT 98; BMI 23.2
--- NOTE | 2022-12-14 05:20 | ECG_ITS ---
Test Reason : CHEST PAIN Blood Pressure : / mmHG Vent. Rate : 076 BPM Atrial Rate : 076 BPM P-R Int : 136 ms QRS Dur : 088 ms QT Int : 388 ms P-R-T Axes : 064 025 050 degrees QTc Int : 436 ms Normal sinus rhythm Possible Left atrial enlargement Borderline ECG When compared with ECG of 15-DEC-2021 03:29, Left atrial enlargement is new Referred By: Generic ED Physician Electronically Signed By:JOSE LUIS MANCERA MD
--- NOTE | 2022-12-14 05:53 | PC.NURSE ---
Patient BIBA from home to be evaluated for sickle cell crisis. Patient also endorsing chest pain, pain in upper and lower extremities, and vaginal discharge. Patient uses O2 at home at 5 PM NC at baseline. Patient received Zofran 4 mg IM and Morphine [address] the way to ED. Patient has non working port in her left upper chest that has not been accessed in years. VSS. O 2 Sat 98% on 5 LPM NC. EKG completed and reviewed by ED provider, patient changed into a hospital attire.This RN unsuccessfully attempted to insert iV line and draw labs, patient reports she is a difficult stick and gets IV line placed in her neck. Patient declined VBD by RN or photocopier technician requesting IV placement by . Dr. Diaz made aware, Call placed within patient's reach,
--- OUTSIDE RECORDS SUMMARY | 2022-12-14 05:55 | XMS_ITS | Continuity of Care Document ---
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 Date(s): 09/03/22 - 09/03/[address] [address]- Encounter Diagnosis Abdominal pain(Final) - 09/03/22 Sickle cell disease(Final) - 09/03/22 Discharge Disposition: A-D/C AMA Attending Physician: May Feng DO Admitting Physician: May Feng DO Referring Physician: Not on Staff, Referring MD Allergies, Adverse Reactions, Alerts Substance Reaction Severity Status Compazine tongue swelling Active Immunizations Given and Recorded Vaccine Date Status Refusal Reason SARS-CoV-2 (COVID-19) mRNA BNT-162b2 vac 1 12/31/20 Given SARS-CoV-2 (COVID-19) mRNA BNT-162b2 vac 12/10/20 Given influenza virus vaccine, inactivated 12/29/17 Give n influenza virus vaccine, inactivated 2 11/09/16 Gi booker influenza virus vaccine, inactivated 02/22/16 Give n influenza virus vaccine, inactivated 12/19/13 Give n influenza virus vaccine, inactivated 03/03/13 Give n influenza virus vaccine, inactivated 05/15/12 Give n influenza virus vaccine, inactivated 12/07/10 Give n influenza virus vaccine, inactivated 01/17/07 Give n tetanus/diphtheria/pertussis, acel(Tdap) 11/25/16 Given pneumococcal 23-valent vaccine 12/07/10 Given Pneumococcal Vaccine (oldterm) 12/17/05 Given 1Result Comment: normal saline diluent added lot number [id number] expires 07/23/2022 2Result Comment: Afluria Medications allopurinol 100 mg oral tablet 100 mg, 1, tablet, By Mouth, Daily, # 90 tablet, Refills 1, Tot. Refills 1, Maintenance, 10/24/21 13:18:00 EDT, Route to Pharmacy Electronically, [facility]/pharmacy #[id number], Partial fill upon patient requestif the prescription is for a schedule II opioid lynn... Start Date: 10/24/21 Status: Ordered Ativan 1 mg oral tablet 1 tablet = 1 mg, By Mouth, 2 times a day, PRN as needed for anxiety, for 7 days, # 14 tablet, 0 Refills, Acute 09/10/22 15:42:00 EDT, 09/03/22 15:42:00 EDT, Tablet, [facility]/pharmacy #[id number], Partial fill upon patient request if the prescription is for a amado... Start Date: 09/03/22 Stop Date: 09/10/22 Status: Ordered clindamycin 1% topical lotion 1 application, Topically, 2 times a day, apply to L armpit lesions/bumps twice per day until healed, # 60 mL, 0 Refills, Maintenance, 10/24/21 15:35:00 EDT, Lotion, [facility]/pharmacy #[id number], Partial fill upon patient request if the prescription is for a amado... Start Date: 10/24/21 Status: Ordered Daily Lazara oral tablet 1 tablet, By Mouth, Daily Start Date: 07/03/21 Status: Ordered diphenhydrAMINE 25 mg oral capsule 1 capsule, By Mouth, 3 times a day, PRN NEEDED FOR ITCHING, # 90 capsule, 2 Refills, Maintenance, 05/14/22 15:26:00 EDT, [facility], 163, cm, 05/12/22 16:01:00 EDT, Height, 61.5, kg, 05/10/2316:29:00 EDT, Dry Weight Start Date: 05/14/22 Status: Ordered Estrace Vaginal Cream 0.1 mg/g = 1 Gm, Vaginally, Daily at bedtime, # 90 Gm, 3 Refills, Maintenance, 12/06/21 14:57:00 EDT, [facility]/pharmacy #[id number], Partial fill upon patient request if the prescription is for a schedule II opioid drug., 160, cm, 12/06/21 14:22:00 EDT, Height, 72.9, kg,... Start Date: 12/06/21 Status: Ordered Eucerin Plus topical lotion 1 application, Topically, 2 times a day, PRN for dry skin, # 180 mL, 0 Refills, Maintenance, 03/12/22 16:28:00 EST, Lotion, [id number], Partial fill upon patient request if the prescription is for a schedule II opioid drug., 1 application Topi... Start Date: 03/12/22 Status: Ordered Flonase 50 mcg/inh nasal spray 1 sprays, Nares, Both, 2 times a day, # 1 each, 6 Refills, Maintenance, 07/08/22 17:26:00 EDT, [place], [id number], Partial fill upon patient request if the prescription is for a schedule II opioid drug., 1 sprays Nares, Both 2 times a day, 163,... Start Date: 07/08/22 Status: Ordered folic acid 1 mg oral tablet 1 mg, 1, tablet, By Mouth, Daily, # 30 tablet, Refills 0, Tot. Refills 0, Maintenance, 05/12/22 15:17:00 EDT, Route to Pharmacy Electronically, [id number], Partial fill upon patient request if the prescription is for a schedule II opioid drug.... Start Date: 05/12/22 Status: Ordered gabapentin 300 mg oral capsule 300 mg, 1, capsule, By Mouth, 3 times a day, # 90 capsule, Refills 0, Tot. Refills 0, Maintenance, 10/24/21 12:29:00 EDT, Route to Pharmacy Electronically, [id number], Partial fill upon patient request if the prescription is for a schedule II... Start Date: 10/24/21 Status: Ordered hydroxyurea 500 mg oral capsule 1 capsule = 500 mg, By Mouth, 2 times a day Start Date: 07/03/21 Status: Ordered hydrOXYzine hydrochloride 50 mg oral tablet 1 tablet = 50 mg, By Mouth, 3 times a day, PRN as needed for anxiety, # 90 tablet, 5 Refills, Maintenance, 10/24/21 12:29:00 EDT, Tablet, [id number], Partial fill upon patient request if the prescription is for a schedule II opioid drug., 160,... Start Date: 10/24/21 Status: Ordered Inogen Portable Oxygen concentrator Inogen Portable Oxygen concentrator, See Instructions, # 1 each, Refills 0, Tot. Refills 0, Maintenance, Chronic hypoxic respiratory failure (J96.11) For use at rest and with exertion at 6L/min, 08/08/22 13:35:00 EDT, Supply Start Date: 08/08/22 Status: Ordered loratadine 10 mg oral tablet 10 mg, 1, tablet, By Mouth, Daily, # 90 tablet, Refills 11, Tot. Refills 11, Maintenance, 04/11/22 15:56:00 EST, [id number] 163, cm, 04/11/22 15:32:00 EST, Height, 60.8, kg, 02/19/22 19:05:00 EST, Dry Weight Start Date: 04/11/22 Status: Ordered MiraLax oral powder for reconstitution = 17 Gm, By Mouth, Daily, dissolve in water before taking, # 255 Gm, 1 Refills, Maintenance, 04/11/22 21:05:00 EST, REC Powder, [facility]/pharmacy #[id number], Partial fill upon patient request if the prescription is for a schedule II opioid drug., 17 Gm By Mouth... Start Date: 04/11/22 Status: Ordered nicotine 4 mg oral transmucosal gum See Instructions, CHEW 1 PIECE EVERY 2 HOURS NEEDED FOR SMOKING CESSATION, # 200 gum, 0 Refills,[id number], 160, cm, 08/01/21 21:18:00 EDT, Height, 72.9, kg, 08/01/21 21:18:00 EDT, Dry Weight Start Date: 08/05/21 Status: Ordered omeprazole 20 mg oral enteric coated capsule 1 capsule = 20 mg, By Mouth, Daily, # 90 capsule, 10 Refills, Maintenance, 10/24/21 12:29:00 EDT, [facility]/pharmacy #[id number], Partial fill upon patient request if the prescription is for a schedule II opioiddrug., 160, cm, 10/24/21 11:46:00 EDT, Height, 72.9... Start Date: 10/24/21 Status: Ordered oxyCODONE 10 mg oral tablet 2 tablet = 20 mg, By Mouth, Every 4 hours, PRN as needed for pain, for 7 days, # 84 tablet, 0 Refills, Acute 09/10/22 15:40:00 EDT, 09/03/22 15:40:00 EDT, Tablet, [facility]/pharmacy #[id number], Partial fill upon patient request if the prescription is for a sched... Start Date: 09/03/22 Stop Date: 09/10/22 Status: Ordered oxyCODONE 5 mg oral tablet 20 mg, 4, tablet, By Mouth, Every 4 hours, PRN, # 168 tablet, Refills 0, Tot. Refills 0, Maintenance, Pain , Severe, 07/18/22 12:19:00 EDT, Route to Pharmacy Electronically, [facility]/pharmacy #[id number], Scripfor 5 mg tabs sent as 10 mg tabs backordered. Part... Start Date: 07/18/22 Stop Date: 07/25/22 Status: Ordered ProAir HFA 90 mcg/inh inhalation aerosol 2 puffs, Inhalation, Every 6 hours Start Date: 07/03/21 Status: Ordered pyridoxine 50 mg oral tablet 50 mg, 1, tablet, By Mouth, Daily, # 30 tablet, Refills 0, Tot. Refills 0, Maintenance, 05/12/22 15:17:00 EDT, Route to Pharmacy Electronically, [facility]/pharmacy #[id number], Partial fill upon patient request if the prescription is for a schedule II opioid drug... Start Date: 05/12/22 Status: Ordered QUEtiapine 25 mg oral tablet 1, tablet, By Mouth, 2 times a day, PRN, # 90 tablet, Refills 0, Tot. Refills 0, Maintenance, NEEDED FOR AGITATION, 01/01/22 10:03:00 EST, Route to Pharmacy Electronically, [facility]/pharmacy #[id number], 160, cm, 10/24/21 11:46:00 EDT, Height, 72.9, kg, 08/01... Start Date: 01/01/22 Status: Ordered sodium zirconium cyclosilicate 10 g oral powder for reconstitution = 5 Gm, By Mouth, Every Thursday and , # 30 each, 0 Refills, Maintenance, 02/24/22 10:38:00 EST, [facility]/pharmacy #[id number], Partial fill upon patient request if the prescription is for a schedule II opioid drug., 163, cm, 02/20/22 15:53:00 EST, Height,... Start Date: 02/24/22 Status: Ordered Problem List Condition Confirmation Course Effective Dates Status Health St atus Informant Depression Confirmed Active Sickle cell anemia Confirmed Active Protein-calorie malnutrition, moderate Confirmed Active TACO (transfusion associated circulatory overload) 1 Confirmed Active 1The use of slow infusion rates, the administration of venkata-transfusion diuretics where not clinically contraindicated, and/or the transfusion of ???split units of PRBCs should be considered in any future hemotherapy interventions. Consult Transfusion Medicine Services if any questions. Results Radiology Reports * Exam Date Time Procedure Performing Provider Status 09/03/22 2:45 PM Chest 2 Views Frontal and Lat Dalia Hilario; Margaret (Verified) Notes: (Chest 2 Views Frontal and Lat) Reason For Exam: Shortness of Breath, Fever;Other: RESULT: Chest 2 Views Frontal and Lat Chest 2 Views Frontal and Lat Reason: Shortness of Breath, Fever; Clinical Question(s): Pneumonia COMPARISON: Multiple priors, most recent chest x-ray 05/10/2022, CT chest 07/19/2020 FINDINGS: LINES AND TUBES: Right Port-A-Cath terminates in the cavoatrial junction. LUNGS AND PLEURA: Mild diffuse interstitial prominence. Unchanged minimal patchy bilateral infiltrates. No evidence of pleural effusion. No pneumothorax. HEART, MEDIASTINUM AND GARRETT: Heart is normal in size. Unchanged mediastinal and hilar contour. BONES AND SOFT TISSUES: No acute abnormality. Moderate stool throughout the visualized colon. IMPRESSION: Mild diffuse interstitial prominence with unchanged minimal patchy bilateral infiltrates. Findings could represent viral or atypical pneumonia, or pulmonary edema. I have personally reviewed the images and I agree with this report. WSN: [id number] Ordering Physician: David Jo Dictated By: Tresa Hennessy MD Dictated Date/Time: 09/03/22 3:24 pm Reviewed By: Anamaria Cosme MD Signed By: Anamaria Cosme MD Signed Date/Time: 09/03/22 3:29 pm Transcribed By: PRASHANT Transcribed Date/Time: 09/03/22 3:02 pm Vital Signs Most recent to oldest [Reference Range]: 1 Oxygen Saturation [94-100 %] 98 % (09/03/22 3:07 PM) Pulse Rate [55-90 bpm] 96 bpm *H* (09/03/22 3:07 PM) Blood Pressure [90-138/55-84 mm Hg] 96/5 7mm Hg (09/03/22 3:07 PM) Respiratory Rate [16-30 br/min] 22 br/mi n (09/03/22 3:07 PM) Temperature [96.8-100.4 DegF] 98.0 DegF (09/03/22 3:07 PM) Liters per Minute 2 L/min (09/03/22 3:07 PM) Mode of Delivery (Oxygen) Nasal cannula w/oxymizer (09/03/22 3:07 PM) Blood pressure sites Arm, right (09/03/22 3:07 PM) Temperature Route Oral (09/03/22 3:07 PM) Social History Social History Type Response Smoking Status Former smoker, quit more than 30 days ago entered on: 12/26/20 Sex Patient Care team information Care Team Personnel Name: Indiana Zuleta Position: [facility] Onco RN Member Role: Primary Care Nurse Name: Naila Hinds RN Position: [facility] RN Member Role: Primary Care Nurse Name: Marisa Rosario RN Position: [facility] RN Member Role: Primary Care Nurse Name: Carmen Hdez RN Position: [facility] ED RN W/OE and Tasks Member Role: Primary Care Nurse Name: Jordon Cruz RN Position: [facility] ED RN W/OE and Tasks Member Role: Primary Care Nurse Name: Daisy Rushing RN Position: [facility] RN Member Role: Primary Care Nurse Name: Corinna Fajardo RN Position: [facility] AMB Nurse Member Role: Primary Care Nurse Name: Constanza RNIra Position: [facility] ED RN W/OE and Tasks Member Role: Primary Care Nurse Name: Estefany Vincent RN Position: [facility] RN Member Role: Primary Care Nurse Name: Idania More RN Position: [facility] RN Member Role: Primary Care Nurse Name: Paola Rinaldi RN Position: [facility] RN Supv Member Role: Primary Care Nurse Name: Lian Joy RN Position: [facility] RN Member Role: Primary Care Nurse Name: Nikkie Sommers RN Position: [facility] RN Supv Member Role: Primary Care Nurse Name: Jasmine Ortega NP Position: [facility] Associate Professional Member Role: Primary Care Nurse Address: Address: [address] [place] [address]- [place] Name: Rivka Cook RN Position: [facility] RN Member Role: Primary Care Nurse Name: Daisy Brower RN Position: [facility] RN Member Role: Primary Care Nurse Name: Kimberly Skinner RN Position: [facility] RN Member Role: Primary Care Nurse Name: Abhishek Johnson RN Position: [facility] RN Member Role: Primary Care Nurse Name: Lesia Cuevas MD Position: [facility] Resident Member Role: PCP Address: Address: [address] [place] [id number]- [place] Name: Barbara Rae RN Position: [facility] AMB Nurse Member Role: Primary Care Nurse Name: Ina Renee RN Position: [facility] RN Member Role: Primary Care Nurse Name: Yesica Delong RN Position: [facility] ED RN W/OE and Tasks Member Role: Primary Care Nurse Name: Paula Earl RN Position: [facility] RN Member Role: Primary Care Nurse Name: Susan Miller RN Position: [facility] SN RN Member Role: Primary Care Nurse Name: Silva Colin RN Position: [facility] RN Supv Member Role: Primary Care Nurse Name: Pao Key Position: [facility] RN Member Role: Primary Care Nurse Name: Maris Trevino RN Position: [facility] ED RN W/OE and Tasks Member Role: Primary Care Nurse Name: Steph Gordillo RN Position: [facility] OB RN Member Role: Primary Care Nurse Name: Rene Ramos DO Position: [facility] Renal MD Member Role: Lifetime Consulting Physician Address: Address: [address] [facility] [place] [place] [address]- [place] Name: Ryder Matthews Position: [facility] RN Member Role: Primary Care Nurse Name: Mary Correia RN Position: [facility] ED RN W/OE and Tasks Member Role: Primary Care Nurse Name: Tierra Razo RN Position: [facility] RN Member Role: Primary Care Nurse Name: Librado Saucedo RN Position: [facility] RN Member Role: Primary Care Nurse Name: Laron Davenport III, RN Position: [facility] RN Member Role: Primary Care Nurse Name: Danya Govea RN Position: [facility] RN Member Role: Primary Care Nurse Name: Idania Millard RN Position: [facility] RN Member Role: Primary Care Nurse Name: Blake Grant RN Position: [facility] SN RN Member Role: Primary Care Nurse Name: Mariella Ojeda RN Position: [facility] RN Member Role: Primary Care Nurse Name: Ana Do RN Position: [facility] RN Member Role: Primary Care Nurse Name: Yaquelin Dawkins RN Position: [facility] RN Member Role: Primary Care Nurse Name: Cari Khan RN Position: [facility] RN Member Role: Primary Care Nurse Name: Dequan Elliott RN Position: [facility] SN RN Member Role: Primary Care Nurse Name: Esmer Rankin RN Position: [facility] AMB Nurse Member Role: Primary Care Nurse Name: Juno Torres RN Position: [facility] Onco RN Member Role: Primary Care Nurse Name: Yojana Dior RN Position: [facility] RN Member Role: Primary Care Nurse Name: Farideh Balderas RN Position: [facility] Case Management Specialist Member Role: Primary Care Nurse Name: Roxana Ann RN Position: [facility] RN Member Role: Primary Care Nurse Name: Vanessa Shelton RN Position: [facility] RN Member Role: Primary Care Nurse Name: Derick Calixto RN Position: [facility] RN Member Role: Primary Care Nurse Name: Fariba Bradley RN Position: [facility] RN Member Role: Primary Care Nurse Name: Fariba Ornelas RN Position: [facility] ED RN W/OE and Tasks Member Role: Primary Care Nurse Name: Steph Tierney RN Position: [facility] RN Member Role: Primary Care Nurse Name: Portia Baires RN Position: [facility] SN RN Member Role: Primary Care Nurse Name: Isidro Valle RN Position: [facility] RN Supv Member Role: Primary Care Nurse Name: Leny Shanks RN Position: [facility] RN Supv Member Role: Primary Care Nurse Name: Steph Smith RN Position: [facility] RN Member Role: Primary Care Nurse Name: Casandra Robbins RN Position: [facility] RN Supv Member Role: Primary Care Nurse Name: Maris Crowell RN Position: [facility] RN Member Role: Primary Care Nurse Name: Coni Romero LPN Position: [facility] RN Member Role: Primary Care Nurse Name: Abigail Rabago RN Position: [facility] RN Member Role: Primary Care Nurse Name: Halina Burger RN Position: [facility] Onco RN Member Role: Primary Care Nurse Name: Linda Lockwood RN Position: [facility] Hospital Case Management Specialist Member Role: Primary Care Nurse Name: Lurdes RNDedra I Position: [facility] RN Member Role: Primary Care Nurse Name: David Oquendo RN Position: [facility] RN Member Role: Primary Care Nurse Name: Ira Hays RN Position: [facility] ED RN W/OE and Tasks Name: Martin Bryant Position: [facility] ED TA [facility] Member Role: Patient Care Provider Name: May Feng DO Position: [facility] Resident Member Role: Admitting Physician Address: Address: [address] [place] [address] [place] [address]- Name: Heydi Palma MD Position: [facility] Resident Member Role: ED Resident Address: Address: [address] [place] [address]- Care Team Related Persons Name: KATTY JACKIE Address: [address] [place] [address] Name: JUNO MENA Address: [address] [place] [address] Name: JOVITA GALARZA Address: [address] [place] [address] Name: KARL GALARZA Address: home [address] [place] [address] Name: EZEKIEL GALARZA Address: home [address] [place] [address] Name: MICHAEL BARRETT Address: [address] [place] [address] Name: SHAD TUBBS Address: [address] [place] [address]
--- OUTSIDE RECORDS SUMMARY | 2022-12-14 05:55 | XMS_ITS | Continuity of Care Document ---
Author Name Unknown Organization [facility] Address [address] [place] [address]- Care Team Providers Care Market Specialist Name Role Phone Lesia Cuevas MD Primary Care Physician Encounter [facility] Date(s): 10/29/22 - 11/28/[address] [id number]- Allergies, Adverse Reactions, Alerts Substance Reaction Severity [...] Comment: normal saline diluent added lot number [id number] expires 07/23/2022 2Result Comment: Afluria Medications allopurinol 100 mg oral tablet 100 mg, 1, tablet, By Mouth, Daily, # 90 tablet, Refills 1, Tot. Refills 1, Maintenance, 10/24/21 13:18:00 EDT, Route to Pharmacy Electronically, [facility]/pharmacy #[id number], Partial fill upon patient requestif the prescription is for a schedule II opioid lynn... Start Date: 10/24/21 Status: Ordered clindamycin 1% topical lotion 1 application, Topically, 2 times a day, apply to L armpit lesions/bumps twice per day until healed, # 60 mL, 0 Refills, Maintenance, 10/24/21 15:35:00 EDT, Lotion, [facility]/pharmacy #[id number], Partial fill [...] Refills, Maintenance, 05/14/22 15:26:00 EDT, [id number], 163, cm, 05/12/22 16:01:00 EDT, Height, 61.5, kg, 05/10/2316:29:00 EDT, Dry Weight Start Date: 05/14/22 Status: Ordered Estrace Vaginal Cream 0.1 mg/g = 1 Gm, Vaginally, Daily at bedtime, # 90 Gm, 3 Refills, Maintenance, 12/06/21 14:57:00 EDT, [facility]/pharmacy #[id number], Partial fill upon patient request if the prescription is for a schedule II opioid drug., 160, cm, 12/06/21 14:22:00 EDT, Height, 72.9, kg,... Start Date: 12/06/21 Status: Ordered Eucerin Plus topical lotion 1 application, Topically, 2 times a day, PRN for dry skin, # 180 mL, 0 Refills, Maintenance, 03/12/22 16:28:00 EST, Lotion, [facility]/pharmacy #[id number], Partial fill upon patient request if the prescription is for a schedule II opioid drug., 1 application Topi... Start Date: 03/12/22 Status: Ordered Flonase 50 mcg/inh nasal spray 1 sprays, Nares, Both, 2 times a day, # 1 each, 6 Refills, Maintenance, 07/08/22 17:26:00 EDT, [place], [id number], Partial fill upon patient request [...] 10/24/21 12:29:00 EDT, Route to Pharmacy Electronically, [facility]/pharmacy #[id number], Partial fill [...] 5 Refills, Maintenance, 10/24/21 12:29:00 EDT, Tablet, [facility]/pharmacy #[id number], [...] 04/11/22 15:56:00 EST, Route to Pharmacy Electronically, [facility]/pharmacy #[id number], 163, cm, 04/11/22 15:32:00 EST, Height, 60.8, kg, 02/19/22 19:05:00 EST, Dry Weight Start Date: 04/11/22 Status: Ordered LORazepam 1 mg oral tablet 1 tablet = 1 mg, By Mouth, 2 times a day, PRN as needed for anxiety, for 7 days, # 14 tablet, 0 Refills, Acute 12/02/22 14:20:00 EDT, 11/25/22 14:20:00 EDT, Tablet, [facility]/pharmacy #1026, Partial fill upon patient request if the prescription is for a amado... Start Date: 11/25/22 Stop Date: 12/02/22 Status: Ordered MiraLax oral powder for reconstitution = 17 Gm, By Mouth, Daily, dissolve in water before taking, # 255 Gm, 1 Refills, Maintenance, 04/11/22 21:05:00 EST, REC Powder, [facility]/pharmacy #[id number], Partial fill upon patient request if the prescription is for a schedule II opioid drug., 17 Gm By Mouth... Start Date: 04/11/22 Status: Ordered nicotine 4 mg oral transmucosal gum See Instructions, CHEW 1 PIECE EVERY 2 HOURS NEEDED FOR SMOKING CESSATION, # 200 gum, 0 Refills,[id number], 160, cm, 08/01/21 21:18:00 EDT, Height, 72.9, kg, 08/01/21 21:18:00 EDT, Dry Weight Start Date: 08/05/21 Status: Ordered omeprazole 20 mg oral enteric coated capsule 1 capsule = 20 mg, By Mouth, Daily, # 90 capsule, 10 Refills, Maintenance, 10/24/21 12:29:00 EDT, [facility]/pharmacy #[id number], Partial fill upon patient request if the prescription is for a schedule II opioiddrug., 160, cm, 10/24/21 11:46:00 EDT, Height, 72.9... Start Date: 10/24/21 Status: Ordered oxyCODONE 10 mg oral tablet 2 tablet = 20 mg, By Mouth, Every 4 hours, PRN as needed for pain, # 84 tablet, 0 Refills, Maintenance, 11/27/22 11:21:00 EDT, Tablet, [facility]/pharmacy #1026, Partial fill upon patient request if the prescription is for a schedule II opioid drug., 163, cm... Start Date: 11/27/22 Stop Date: 12/04/22 Status: Ordered oxyCODONE 5 mg oral tablet 20 mg, 4, tablet, By Mouth, Every 4 hours, PRN, # 168 tablet, Refills 0, Tot. Refills 0, Maintenance, Pain , Severe, 07/18/22 12:19:00 EDT, Route to Pharmacy Electronically, [facility]/pharmacy #[id number], Scripfor 5 mg tabs sent [...] 05/12/22 15:17:00 EDT, Route to Pharmacy Electronically, [facility]/pharmacy #[id number], Partial fill upon patient request if the prescription is for a schedule II opioid drug... Start Date: 05/12/22 Status: Ordered QUEtiapine 25 mg oral tablet 1, tablet, By Mouth, 2 times a day, PRN, # 90 tablet, Refills 0, Tot. Refills 0, Maintenance, NEEDED FOR AGITATION, 01/01/22 10:03:00 EST, Route to Pharmacy Electronically, [facility]/pharmacy #[id number], 160, cm, 10/24/21 11:46:00 EDT, Height, 72.9, kg, 08/01... Start Date: 01/01/22 Status: Ordered sodium zirconium cyclosilicate 10 g oral powder for reconstitution = 5 Gm, By Mouth, Every Thursday and , # 30 each, 0 Refills, Maintenance, 02/24/22 10:38:00 EST, [facility]/pharmacy #[id number], Partial fill [...] Care Team Personnel Name: Indiana Zuleta Position: [facility] Onco RN Member Role: Primary Care Nurse Name: Naila Hinds RN Position: [facility] RN Member Role: Primary Care Nurse Name: Marisa Rosario RN Position: [facility] RN Member Role: Primary Care Nurse Name: Carmen Hdez RN Position: [facility] ED RN W/OE and Tasks Member Role: Primary Care Nurse Name: Jordon Cruz RN Position: [facility] ED RN W/OE and Tasks Member Role: Primary Care Nurse Name: Daisy Rushing RN Position: [facility] RN Member Role: Primary Care Nurse Name: Ana Faustin RN Position: [facility] RN Member Role: Primary Care Nurse Name: Corinna Fajadro RN Position: [facility] AMB Nurse Member Role: Primary Care Nurse Name: Ira Apodaca RN Position: [facility] ED RN W/OE and Tasks Member Role: Primary Care Nurse Name: Estefany Vincent RN Position: [facility] RN Member Role: Primary Care Nurse Name: Idania More RN Position: [facility] RN Member Role: Primary Care Nurse Name: Paola Rinaldi RN Position: [facility] RN Supv Member Role: Primary Care Nurse Name: Lian oJy RN Position: [facility] RN Member Role: Primary Care Nurse Name: Nikkie Sommers RN Position: [facility] RN Supv Member Role: Primary Care Nurse Name: Jasmine Ortega NP Position: [facility] Associate Professional Member Role: Primary Care Nurse Address: Address: [address] [place] [id number]- Name: Rivka Cook RN Position: [facility] RN Member Role: Primary Care Nurse Name: Daisy Brower RN Position: [facility] RN Member Role: Primary Care Nurse Name: Kimberly Skinner RN Position: [facility] RN Member Role: Primary Care Nurse Name: Abhishek Johnson RN Position: [facility] RN Member Role: Primary Care Nurse Name: Lesia Cuevas MD Position: [facility] Resident Member Role: PCP Address: Address: [address] [place] [address]- Name: Barbara Rae RN Position: [facility] AMB Nurse Member Role: Primary Care Nurse Name: Ina Renee RN Position: [facility] RN Member Role: Primary Care Nurse Name: Yesica Delong RN Position: [facility] ED RN W/OE and Tasks Member Role: Primary Care Nurse Name: Paula Earl RN Position: [facility] RN Member Role: Primary Care Nurse Name: Susan Miller RN Position: [facility] ED RN W/OE and Tasks Member Role: Primary Care Nurse Name: Pao Key Position: [facility] RN Member Role: Primary Care Nurse Name: Maris Trevino RN Position: [facility] ED RN W/OE and Tasks Member Role: Primary Care Nurse Name: Steph Gordillo RN Position: [facility] OB RN Member Role: Primary Care Nurse Name: Rene Ramos DO Position: [facility] Renal MD Member Role: Lifetime Consulting Physician Address: Address: [address] [place], [place] [address] [place] [address]- Name: Ryder Matthews Position: [facility] RN Member Role: Primary Care Nurse Name: Mary Correia RN Position: [facility] ED RN W/OE and Tasks Member Role: Primary Care Nurse Name: Tierra Razo RN Position: [facility] RN Member Role: Primary Care Nurse Name: Librado Saucedo RN Position: [facility] RN Member Role: Primary Care Nurse Name: Laron Davenport III, RN Position: [facility] RN Member Role: Primary Care Nurse Name: Danya Govea RN Position: [facility] RN Member Role: Primary Care Nurse Name: Idania Millard RN Position: [facility] RN Member Role: Primary Care Nurse Name: Blake Grant RN Position: [facility] SN RN Member Role: Primary Care Nurse Name: Mariella Ojeda RN Position: [facility] RN Member Role: Primary Care Nurse Name: Yaquelin Dawkins RN Position: [facility] RN Member Role: Primary Care Nurse Name: Cari Khan RN Position: [facility] RN Member Role: Primary Care Nurse Name: Dequan Elliott RN Position: [facility] SN RN Member Role: Primary Care Nurse Name: Esmer Rankin RN Position: [facility] AMB Nurse Member Role: Primary Care Nurse Name: Suzanna Timmons RN Position: [facility] SN RN Member Role: Primary Care Nurse Name: Juno Torres RN Position: [facility] Onco RN Member Role: Primary Care Nurse Name: Yojana Dior RN Position: [facility] RN Member Role: Primary Care Nurse Name: Farideh Balderas RN Position: [facility] Manager Of Disaster Recovery Member Role: Primary Care Nurse Name: Roxana Ann RN Position: [facility] RN Member Role: Primary Care Nurse Name: Vanessa Shelton RN Position: [facility] RN Member Role: Primary Care Nurse Name: Derick Calixto RN Position: [facility] RN Member Role: Primary Care Nurse Name: Fariba Bradley RN Position: [facility] RN Member Role: Primary Care Nurse Name: Fariba Ornelas RN Position: [facility] ED RN W/OE and Tasks Member Role: Primary Care Nurse Name: Steph Tierney RN Position: [facility] RN Member Role: Primary Care Nurse Name: Portia Baires RN Position: [facility] SN RN Member Role: Primary Care Nurse Name: Leny Shanks RN Position: [facility] RN Supv Member Role: Primary Care Nurse Name: Steph Smith RN Position: [facility] RN Member Role: Primary Care Nurse Name: Casandra Robbins RN Position: [facility] RN Supv Member Role: Primary Care Nurse Name: Maris Crowell RN Position: [facility] RN Member Role: Primary Care Nurse Name: Coni Romero LPN Position: [facility] RN Member Role: Primary Care Nurse Name: Abigail Rabago RN Position: [facility] RN Member Role: Primary Care Nurse Name: Halina Burger RN Position: [facility] Onco RN Member Role: Primary Care Nurse Name: Linda Lockwood RN Position: [facility] Manager Of Disaster Recovery Member Role: Primary Care Nurse Name: Dedra Chatman RN, I Position: [facility] RN Member Role: Primary Care Nurse Name: David Oquendo RN Position: [facility] RN Member Role: Primary Care Nurse Care Team Related Persons Name: JACKIE ALANIZ Address: [address] [place] [address] Name: JUNO MENA Address: [address] [place] [address] Name: JOVITA GALARZA Address: home [address] [place] [address] Name: KARL GALARZA Address: home [address] [place] [address] Name: EZEKIEL GALARZA Address: home [address] [place] [address] Name: MICHAEL BARRETT Address: home [address] [place] [address] Name: SHAD TUBBS Address: home [address] [place] [id number]
--- OUTSIDE RECORDS SUMMARY | 2022-12-14 05:55 | XMS_ITS | Continuity of Care Document ---
Author Name Unknown Organization [facility] Address [address] [place] [address]- Care Team Providers Care Car Barn Laborer Name Role Phone Lesia Cuevas MD Primary Care Physician Encounter [facility] Date(s): 09/24/22 - 10/24/22 [facility] [address] [place] [address] Attending Physician: Jamaica Aguero Admitting [...] Comment: normal saline diluent added lot number [id number] expires 07/23/2022 2Result Comment: Afluria Medications allopurinol 100 mg oral tablet 100 mg, 1, tablet, By Mouth, Daily, # 90 tablet, Refills 1, Tot. Refills 1, Maintenance, 10/24/21 13:18:00 EDT, Route to Pharmacy Electronically, [facility]/pharmacy #[id number], Partial fill upon patient requestif the prescription is for a schedule II opioid lynn... Start Date: 10/24/21 Status: Ordered Ativan 1 mg oral tablet 1 tablet = 1 mg, By Mouth, 2 times a day, for 7 days, # 14 tablet, 0 Refills, Acute 10/29/22 10:50:00 EDT, 10/22/22 10:50:00 EDT, Tablet, [facility]/pharmacy #[id number], Partial fill upon patient request if the prescription is for a schedule II opioid drug., 163,... Start Date: 10/22/22 Stop Date: 10/29/22 Status: Ordered clindamycin 1% topical lotion 1 application, Topically, 2 times a day, apply to L armpit lesions/bumps twice per day until healed, # 60 mL, 0 Refills, Maintenance, 10/24/21 15:35:00 EDT, Lotion, [facility]/pharmacy #[id number], Partial fill upon patient request if the prescription is for a amado... Start Date: 10/24/21 Status: Ordered Daily Lazara oral tablet 1 tablet, By Mouth, Daily Start Date: 07/03/21 Status: Ordered diphenhydrAMINE 25 mg oral capsule 1 capsule, By Mouth, 3 times a day, PRN NEEDED FOR ITCHING, # 90 capsule, 2 Refills, Maintenance, 05/14/22 15:26:00 EDT, [id number], 163, cm, 05/12/22 16:01:00 EDT, Height, 61.5, kg, 05/10/2316:29:00 EDT, Dry Weight Start Date: 05/14/22 Status: Ordered Estrace Vaginal Cream 0.1 mg/g = 1 Gm, Vaginally, Daily at bedtime, # 90 Gm, 3 Refills, Maintenance, 12/06/21 14:57:00 EDT, [facility]/pharmacy #[id number], Partial fill upon patient [...] each, 6 Refills, Maintenance, 07/08/22 17:26:00 EDT, [place], [id number], Partial fill upon patient request [...] 04/11/22 15:56:00 EST, Route to Pharmacy Electronically, [facility]/pharmacy #[id number], 163, cm, 04/11/22 15:32:00 EST, Height, 60.8, kg, 02/19/22 19:05:00 EST, Dry Weight Start Date: 04/11/22 Status: Ordered MiraLax oral powder for reconstitution = 17 Gm, By Mouth, Daily, dissolve in water before taking, # 255 Gm, 1 Refills, Maintenance, 04/11/22 21:05:00 EST, REC Powder, [facility]/pharmacy #[id number], Partial fill upon patient request if the prescription is for a schedule II opioid drug., 17 Gm By Mouth... Start Date: 04/11/22 Status: Ordered nicotine 4 mg oral transmucosal gum See Instructions, CHEW 1 PIECE EVERY 2 HOURS NEEDED FOR SMOKING CESSATION, # 200 gum, 0 Refills,[id number], 160, cm, 08/01/21 21:18:00 EDT, Height, 72.9, kg, 08/01/21 21:18:00 EDT, Dry Weight Start Date: 08/05/21 Status: Ordered omeprazole 20 mg oral enteric coated capsule 1 capsule = 20 mg, By Mouth, Daily, # 90 capsule, 10 Refills, Maintenance, 10/24/21 12:29:00 EDT, [facility]/pharmacy #[id number], Partial fill upon patient request if the prescription is for a schedule II opioiddrug., 160, cm, 10/24/21 11:46:00 EDT, Height, 72.9... Start Date: 10/24/21 Status: Ordered oxyCODONE 10 mg oral tablet 2 tablet = 20 mg, By Mouth, Every 4 hours, PRN as needed for pain, # 84 tablet, 0 Refills, Maintenance, 10/23/22 11:21:00 EDT, Tablet, [facility]/pharmacy #[id number], Partial fill upon patient request if the prescription is for a schedule II opioid drug., 163, cm... Start Date: 10/23/22 Stop Date: 10/30/22 Status: Ordered oxyCODONE 5 mg oral tablet 20 mg, 4, tablet, By Mouth, Every 4 hours, PRN, # 168 tablet, Refills 0, Tot. Refills 0, Maintenance, Pain , Severe, 07/18/22 12:19:00 EDT, Route to Pharmacy Electronically, [facility]/pharmacy #[id number], Scripfor 5 mg tabs sent as [...] 05/12/22 15:17:00 EDT, Route to Pharmacy Electronically, [facility]/pharmacy #[id number], Partial fill upon patient request if the prescription is for a schedule II opioid drug... Start Date: 05/12/22 Status: Ordered QUEtiapine 25 mg oral tablet 1, tablet, By Mouth, 2 times a day, PRN, # 90 tablet, Refills 0, Tot. Refills 0, Maintenance, NEEDED FOR AGITATION, 01/01/22 10:03:00 EST, Route to Pharmacy Electronically, [facility]/pharmacy #[id number], 160, cm, 10/24/21 11:46:00 EDT, Height, 72.9, kg, 08/01... Start Date: 01/01/22 Status: Ordered sodium zirconium cyclosilicate 10 g oral powder for reconstitution = 5 Gm, By Mouth, Every Thursday and , # 30 each, 0 Refills, Maintenance, 02/24/22 10:38:00 EST, [facility]/pharmacy #[id number], Partial fill upon patient [...] Care Team Personnel Name: Indiana Zuleta Position: [facility] Onco RN Member Role: Primary Care Nurse Name: Naila Hinds RN Position: [facility] RN Member Role: Primary Care Nurse Name: Marisa Rosario RN Position: [facility] RN Member Role: Primary Care Nurse Name: Carmen Hdez RN Position: [facility] ED RN W/OE and Tasks Member Role: Primary Care Nurse Name: Jordon Cruz RN Position: [facility] ED RN W/OE and Tasks Member Role: Primary Care Nurse Name: Daisy Rushing RN Position: [facility] RN Member Role: Primary Care Nurse Name: Corinna Fajardo RN Position: [facility] AMB Nurse Member Role: Primary Care Nurse Name: Ira Apodaca RN Position: [facility] ED RN W/OE and Tasks Member Role: Primary Care Nurse Name: Estefany Vincent RN Position: [facility] RN Member Role: Primary Care Nurse Name: Idania More RN Position: [facility] RN Member Role: Primary Care Nurse Name: Paola Rinaldi RN Position: [facility] RN Supv Member Role: Primary Care Nurse Name: Lian Joy RN Position: [facility] RN Member Role: Primary Care Nurse Name: Nikkie Sommers RN Position: [facility] RN Supv Member Role: Primary Care Nurse Name: Jasmine Ortega NP Position: [facility] Associate Professional Member Role: Primary Care Nurse Address: Address: [address] [place] [id number]- [place] Name: Rivka Cook RN Position: [facility] RN Member Role: Primary Care Nurse Name: Daisy Brower RN Position: [facility] RN Member Role: Primary Care Nurse Name: Kimberly Skinner RN Position: [facility] RN Member Role: Primary Care Nurse Name: Abhishek Johnson RN Position: [facility] RN Member Role: Primary Care Nurse Name: Lesia Cuevas MD Position: [facility] Resident Member Role: PCP Address: Address: [address] [place] [id number]- Name: Barbara Rae RN Position: [facility] AMB Nurse Member Role: Primary Care Nurse Name: Ina Renee RN Position: [facility] RN Member Role: Primary Care Nurse Name: Yesica Delong RN Position: [facility] ED RN W/OE and Tasks Member Role: Primary Care Nurse Name: Paula Earl RN Position: [facility] RN Member Role: Primary Care Nurse Name: Susan Miller RN Position: [facility] SN RN Member Role: Primary Care Nurse Name: Pao Key Position: [facility] RN Member Role: Primary Care Nurse Name: Maris Trevino RN Position: [facility] ED RN W/OE and Tasks Member Role: Primary Care Nurse Name: Steph Gordillo RN Position: [facility] OB RN Member Role: Primary Care Nurse Name: Rene Ramos DO Position: [facility] Renal MD Member Role: Lifetime Consulting Physician Address: Address: [address] [place], [place] [id number] [place] [address]- Name: Ryder Matthews Position: [facility] RN Member Role: Primary Care Nurse Name: Mary Correia RN Position: [facility] ED RN W/OE and Tasks Member Role: Primary Care Nurse Name: Tierra Razo RN Position: [facility] RN Member Role: Primary Care Nurse Name: Librado Saucedo RN Position: [facility] RN Member Role: Primary Care Nurse Name: Laron Davenport III, RN Position: [facility] RN Member Role: Primary Care Nurse Name: Danya Govea RN Position: [facility] RN Member Role: Primary Care Nurse Name: Idania Millard RN Position: [facility] RN Member Role: Primary Care Nurse Name: Blake Grant RN Position: [facility] SN RN Member Role: Primary Care Nurse Name: Mariella Ojeda RN Position: [facility] RN Member Role: Primary Care Nurse Name: Ana Do RN Position: [facility] RN Member Role: Primary Care Nurse Name: Yaquelin Dawkins RN Position: [facility] RN Member Role: Primary Care Nurse Name: Cari Khan RN Position: [facility] RN Member Role: Primary Care Nurse Name: Dequan Elliott RN Position: [facility] SN RN Member Role: Primary Care Nurse Name: Esmer Rankin RN Position: [facility] AMB Nurse Member Role: Primary Care Nurse Name: Suzanna Timmons RN Position: [facility] SN RN Member Role: Primary Care Nurse Name: Juno Torres RN Position: [facility] Onco RN Member Role: Primary Care Nurse Name: Yojana Dior RN Position: [facility] RN Member Role: Primary Care Nurse Name: Farideh Balderas RN Position: [facility] Hospital Sales Professional Bilingual Member Role: Primary Care Nurse Name: Roxana Ann RN Position: [facility] RN Member Role: Primary Care Nurse Name: Vanessa Shelton RN Position: [facility] RN Member Role: Primary Care Nurse Name: Derick Calixto RN Position: [facility] RN Member Role: Primary Care Nurse Name: Fariba Bradley RN Position: [facility] RN Member Role: Primary Care Nurse Name: Fariba Ornelas RN Position: [facility] ED RN W/OE and Tasks Member Role: Primary Care Nurse Name: Steph Tierney RN Position: [facility] RN Member Role: Primary Care Nurse Name: Portia Baires RN Position: [facility] SN RN Member Role: Primary Care Nurse Name: Leny Shanks RN Position: [facility] RN Supv Member Role: Primary Care Nurse Name: Steph Smith RN Position: [facility] RN Member Role: Primary Care Nurse Name: Casandra Robbins RN Position: [facility] RN Supv Member Role: Primary Care Nurse Name: Maris Crowell RN Position: [facility] RN Member Role: Primary Care Nurse Name: Coni Romero LPN Position: [facility] RN Member Role: Primary Care Nurse Name: Abigail Rabago RN Position: [facility] RN Member Role: Primary Care Nurse Name: Halina Burger RN Position: [facility] Onco RN Member Role: Primary Care Nurse Name: Linda Lockwood RN Position: [facility] Hospital Sales Professional Bilingual Member Role: Primary Care Nurse Name: Dedra Chatman RN, I Position: [facility] RN Member Role: Primary Care Nurse Name: David Oquendo RN Position: [facility] RN Member Role: Primary Care Nurse Care Team Related Persons Name: JACKIE ALANIZ Address: [address] [place] [address] Name: JUNO MENA Address: home [address] [place] [address] Name: JOVITA GALARZA Address: home [address] [place] [address] Name: KARL GALARZA Address: home [address] [place] [address] Name: EZEKIEL GALARZA Address: home [address] [place] [address] Name: MICHAEL BARRETT Address: home [address] [place] [address] Name: SHAD TUBBS Address: home [address] [place] [id number]
--- OUTSIDE RECORDS SUMMARY | 2022-12-14 05:55 | XMS_ITS | Continuity of Care Document ---
Author Name Unknown Organization [facility] Address [address] [place] [id number]- Care Team Providers Care Vice President Of Finance Name Role Phone Lesia Cuevas MD Primary Care Physician Encounter [facility] Date(s): 05/20/22 - 05/20/[address] [id number] Discharge Disposition: A-D/C Home Attending Physician: Suzan ARCHIBALD(Hem/Onc), Jordon Lainez Admitting Physician: Suzan ARCHIBALD(Hem/Onc), Jordon Lainez Referring Physician: Suzan ARCHIBALD(Hem/Onc)Jordon Allergies, Adverse Reactions, Alerts Substance Reaction Severity [...] Comment: normal saline diluent added lot number [id number] expires 07/23/2022 2Result Comment: Afluria Medications allopurinol 100 mg oral tablet 100 mg, 1, tablet, By Mouth, Daily, # 90 tablet, Refills 1, Tot. Refills 1, Maintenance, 10/24/21 13:18:00 EDT, Route to Pharmacy Electronically, [facility]/pharmacy #[id number], Partial fill upon patient requestif the prescription is for a schedule II opioid lynn... Start Date: 10/24/21 Status: Ordered clindamycin 1% topical lotion 1 application, Topically, 2 times a day, apply to L armpit lesions/bumps twice per day until healed, # 60 mL, 0 Refills, Maintenance, 10/24/21 15:35:00 EDT, Lotion, [facility]/pharmacy #[id number], Partial fill upon patient request if the prescription is for a amado... Start Date: 10/24/21 Status: Ordered Daily Lazara oral tablet 1 tablet, By Mouth, Daily Start Date: 07/03/21 Status: Ordered Dilaudid Inj 6 mg, Injection, IV Push Slowly, Every 2 hours, PRN for Pain , Severe, Routine, 05/20/22 10:15:00 EDT Start Date: 05/20/22 Stop Date: 05/27/22 Status: Ordered diphenhydrAMINE 25 mg oral capsule 1 capsule, By Mouth, 3 times a day, PRN NEEDED FOR ITCHING, # 90 capsule, 2 Refills, Maintenance, 05/14/22 15:26:00 EDT, [id number], 163, cm, 05/12/22 16:01:00 EDT, Height, 61.5, kg, 05/10/2316:29:00 EDT, Dry Weight Start Date: 05/14/22 Status: Ordered Estrace Vaginal Cream 0.1 mg/g = 1 Gm, Vaginally, Daily at bedtime, # 90 Gm, 3 Refills, Maintenance, 12/06/21 14:57:00 EDT, [facility]/pharmacy #[id number], Partial fill upon patient request [...] application Topi... Start Date: 03/12/22 Status: Ordered folic acid 1 mg oral tablet 1 mg, 1, tablet, By Mouth, Daily, # 30 tablet, Refills 0, Tot. Refills 0, Maintenance, 05/12/22 15:17:00 EDT, Route to Pharmacy Electronically, [facility]/pharmacy #[id number], Partial fill upon patient request if the prescription is for a schedule II opioid drug.... Start Date: 05/12/22 Status: Ordered gabapentin 300 mg oral capsule 300 mg, 1, capsule, By Mouth, 3 times a day, # 90 capsule, Refills 0, Tot. Refills 0, Maintenance, 10/24/21 12:29:00 EDT, Route to Pharmacy Electronically, [facility]/pharmacy #[id number], Partial fill upon patient request [...] 5 Refills, Maintenance, 10/24/21 12:29:00 EDT, Tablet, [facility]/pharmacy #[id number], Partial fill upon patient request if the prescription is for a schedule II opioid drug., 160,... Start Date: 10/24/21 Status: Ordered loratadine 10 mg oral tablet 10 mg, 1, tablet, By Mouth, Daily, # 90 tablet, Refills 11, Tot. Refills 11, Maintenance, 04/11/22 15:56:00 EST, Route to Pharmacy Electronically, [facility]/pharmacy #[id number], 163, cm, 04/11/22 15:32:00 EST, Height, 60.8, kg, 02/19/22 19:05:00 EST, Dry Weight Start Date: 04/11/22 Status: Ordered MiraLax oral powder for reconstitution = 17 Gm, By Mouth, Daily, dissolve in water before taking, # 255 Gm, 1 Refills, Maintenance, 04/11/22 21:05:00 EST, REC Powder, [id number], Partial fill upon patient request if the prescription is for a schedule II opioid drug., 17 Gm By Mouth... Start Date: 04/11/22 Status: Ordered nicotine 4 mg oral transmucosal gum See Instructions, CHEW 1 PIECE EVERY 2 HOURS NEEDED FOR SMOKING CESSATION, # 200 gum, 0 Refills,[id number], 160, cm, 08/01/21 21:18:00 EDT, Height, 72.9, kg, 08/01/21 21:18:00 EDT, Dry Weight Start Date: 08/05/21 Status: Ordered omeprazole 20 mg oral enteric coated capsule 1 capsule = 20 mg, By Mouth, Daily, # 90 capsule, 10 Refills, Maintenance, 10/24/21 12:29:00 EDT, [facility]/pharmacy #[id number], Partial fill upon patient request if the prescription is for a schedule II opioiddrug., 160, cm, 10/24/21 11:46:00 EDT, Height, 72.9... Start Date: 10/24/21 Status: Ordered oxyCODONE 10 mg oral tablet 2 tablet = 20 mg, By Mouth, Every 4 hours, PRN Pain , Moderate, # 84 tablet, 0 Refills, Maintenance, 05/15/22 10:41:00 EDT, Tablet, [facility]/pharmacy #[id number], Partial fill upon patient request if the prescription is for a schedule II opioid drug., 163, cm, 0... Start Date: 05/15/22 Status: Ordered ProAir HFA 90 mcg/inh inhalation aerosol 2 puffs, Inhalation, Every 6 hours Start Date: 07/03/21 Status: Ordered pyridoxine 50 mg oral tablet 50 mg, 1, tablet, By Mouth, Daily, # 30 tablet, Refills 0, Tot. Refills 0, Maintenance, 05/12/22 15:17:00 EDT, Route to Pharmacy Electronically, [facility]/pharmacy #[id number], Partial fill upon patient request if the prescription is for a schedule II opioid drug... Start Date: 05/12/22 Status: Ordered QUEtiapine 25 mg oral tablet 1, tablet, By Mouth, 2 times a day, PRN, # 90 tablet, Refills 0, Tot. Refills 0, Maintenance, NEEDED FOR AGITATION, 01/01/22 10:03:00 EST, Route to Pharmacy Electronically, [facility]/pharmacy #[id number], 160, cm, 10/24/21 11:46:00 EDT, Height, 72.9, kg, 08/01... Start Date: 01/01/22 Status: Ordered sodium zirconium cyclosilicate 10 g oral powder for reconstitution = 5 Gm, By Mouth, Every Thursday and , # 30 each, 0 Refills, Maintenance, 02/24/22 10:38:00 EST, [facility]/pharmacy #[id number], Partial fill upon patient request if the prescription is for a schedule II opioid drug., 163, cm, 02/20/22 15:53:00 EST, Height,... Start Date: 02/24/22 Status: Ordered thiamine 100 mg oral tablet 100 mg, 1, tablet, By Mouth, Daily, for 30 days, # 30 tablet, Refills 0, Tot. Refills 0, Acute 06/11/22 15:17:00 EDT, 05/12/22 15:17:00 EDT, Route to Pharmacy Electronically, [facility]/pharmacy #[id number], Partial fill upon patient request if the prescription is... Start Date: 05/12/22 Stop Date: 06/11/22 Status: Ordered Problem List Condition Confirmation Course [...] recent to oldest [Reference Range]: 1 2 3 Oxygen Saturation [94-100 %] 98 % (05/20/22 5:59 PM) 100 % (05/20/22 10:20 AM) Pulse Rate [55-90 bpm] 75 bpm (05/20/22 5:59 PM) 95 bpm *H* (05/20/22 10:20 AM) Blood Pressure [90-138/55-84 mm Hg] 112/78mm Hg (05/20/22 5:59 PM) 102/62mm Hg (05/20/22 10:20 AM) Respiratory Rate [16-30 br/min] 18 br/min (05/20/22 5:59 PM) 18 br/min (05/20/22 5:08 PM) 18 br/min (05/20/22 3:20 PM) Temperature [96.8-100.4 DegF] 97.9 DegF (05/20/22 5:59 PM) 98.8 DegF (05/20/22 10:20 AM) Mode of Delivery (Oxygen) Room air (05/20/22 5:59 PM) Room air (05/20/22 10:20 AM) Blood pressure sites Arm, left (05/20/22 5:59 PM) Arm, left (05/20/22 10:20 AM) Temperature Route Oral (05/20/22 5:59 PM) Oral (05/20/22 10:20 AM) Social History Social History Type Response Smoking Status Former smoker, quit more than 30 days ago entered on: 12/26/20 Sex Hospital Progress note * Elsy Caldwell: PERFORM, SIGN, VERIFY Event Display: Progress Note Hospital Authored Date: Patient: JOSE GALARZA Age: 52 years Sex: Female : 1970 Associated Diagnoses: None Author: Elsy Caldwell Findings Nursing Data IV Lines. : IV Lines. 05/20/2022 13:00 EDT Right Upper arm 20 gauge 1 inch Peripheral IV Activity: Discontinue Peripheral IV Assess Compare Touch: A/C/T Done, line D/C'd and or pt discharged Peripheral IV D/C Date/Time: 05/20/2022 13:58 Peripheral IV D/C Reason: Discontinued by patient Peripheral IV Post-Removal: Catheter tip intact Right Forearm 22 gauge 1 3/4 inches Peripheral IV Activity: Start Peripheral IV Insertion Date/Time: 05/20/2022 13:58 Peripheral IV Insertion Charge: [facility] IV Team ONLY US Guided Peripheral IV Placement Peripheral IV Number of Attempts: 2 Peripheral IV Site Assessment: Clean, dry and intact, Flushes Well, Good Blood return 05/20/2022 12:00 EDT Right Upper arm 20 gauge 1 inch Peripheral IV Activity: Start Peripheral IV Insertion Date/Time: 05/20/2022 12:19 Peripheral IV Insertion Charge: [facility] IV Team ONLY Peripheral IV Placement Peripheral IV Number of Attempts: 1 Peripheral IV Site Assessment: Flushes Well, Good Blood return Peripheral IV Site Drainage: None Peripheral IV Dressing: Clean, dry and intact, Semi-permeable membrane Peripheral IV Intervention: Flushed . Vital Signs : VITAL SIGNS SECTION 05/20/2022 10:20 EDT Temperature 98.8 DegF Temperature Route Oral Pulse Rate 95 bpm H Respiratory Rate 20 br/min Systolic Blood Pressure 102 mm Hg Diastolic Blood Pressure 62 mm Hg Blood pressure sites Arm, left Mean Arterial Pressure 75 mm Hg Pulse Pressure 40 mm Hg Oxygen Saturation 100 % Mode of Delivery (Oxygen) Room air . Narrative/Incidental Patient here for Sickle cell treatment tolerated procedure without issues.. Patient Care team information Care Team Personnel Name: Jennifer Zuletaricia Position: [facility] Onco RN Member Role: Primary Care Nurse Name: Naila Hinds RN Position: [facility] RN Member Role: Primary Care Nurse Name: Marisa Rosario RN Position: [facility] RN Member Role: Primary Care Nurse Name: Carmen Hdez RN Position: [facility] ED RN W/OE and Tasks Member Role: Primary Care Nurse Name: Jordon Cruz RN Position: [facility] ED RN W/OE and Tasks Member Role: Primary Care Nurse Name: Daisy Rushing RN Position: [facility] RN Member Role: Primary Care Nurse Name: Corinna Fajardo RN Position: [facility] PCO RN Member Role: Primary Care Nurse Name: Ira Apodaca RN Position: [facility] ED RN W/OE and Tasks Member Role: Primary Care Nurse Name: Estefany Vincent RN Position: [facility] RN Member Role: Primary Care Nurse Name: Idania More RN Position: [facility] RN Member Role: Primary Care Nurse Name: Paola Rinaldi RN Position: [facility] RN Supv Member Role: Primary Care Nurse Name: Lian Joy RN Position: [facility] RN Member Role: Primary Care Nurse Name: Nikkie Sommers RN Position: [facility] RN Supv Member Role: Primary Care Nurse Name: Jasmine Ortega NP Position: [facility] Associate Professional Member Role: Primary Care Nurse Address: Address: [address] [place] [id number]- [place] Name: Rivka Cook RN Position: [facility] RN Member Role: Primary Care Nurse Name: Daisy Brower RN Position: [facility] RN Member Role: Primary Care Nurse Name: Kimberly Skinner RN Position: [facility] RN Member Role: Primary Care Nurse Name: Abhishek Johnson RN Position: [facility] RN Member Role: Primary Care Nurse Name: Lesia Cuevas MD Position: [facility] Resident Member Role: PCP Address: Address: [address] [place] [address]- [place] Name: Rene Pham RN Position: [facility] RN Member Role: Primary Care Nurse Name: Barbara Rae RN Position: [facility] RN Member Role: Primary Care Nurse Name: Ina Renee RN Position: [facility] RN Member Role: Primary Care Nurse Name: Chel Torres RN Position: [facility] RN Member Role: Primary Care Nurse Name: Yesica Delong RN Position: [facility] ED RN W/OE and Tasks Member Role: Primary Care Nurse Name: Vy Rogers RN Position: [facility] RN Member Role: Primary Care Nurse Name: Paula Earl RN Position: [facility] RN Member Role: Primary Care Nurse Name: Susan Miller RN Position: [facility] SN RN Member Role: Primary Care Nurse Name: Silva Colin RN Position: [facility] RN Supv Member Role: Primary Care Nurse Name: Pao Key Position: [facility] RN Member Role: Primary Care Nurse Name: Maris Trevino RN Position: [facility] ED RN W/OE and Tasks Member Role: Primary Care Nurse Name: Steph Gordillo RN Position: [facility] OB RN Member Role: Primary Care Nurse Name: Rene Ramos DO Position: [facility] Renal MD Member Role: Lifetime Consulting Physician Address: [facility] [address] [facility] [place] [address]- Name: Ryder Matthews Position: [facility] RN Member Role: Primary Care Nurse Name: Mary Correia RN Position: [facility] ED RN W/OE and Tasks Member Role: Primary Care Nurse Name: Tierra Razo RN Position: [facility] RN Member Role: Primary Care Nurse Name: Librado Saucedo RN Position: [facility] RN Member Role: Primary Care Nurse Name: Laron Davenport III, RN Position: [facility] RN Member Role: Primary Care Nurse Name: Danya Govea RN Position: [facility] RN Member Role: Primary Care Nurse Name: Idania Millard RN Position: [facility] RN Member Role: Primary Care Nurse Name: Blake Grant RN Position: [facility] SN RN Member Role: Primary Care Nurse Name: Mariella Ojeda RN Position: [facility] RN Member Role: Primary Care Nurse Name: Ana Do RN Position: [facility] RN Member Role: Primary Care Nurse Name: Yaquelin Dawkins RN Position: [facility] RN Member Role: Primary Care Nurse Name: Cari Khan RN Position: [facility] RN Member Role: Primary Care Nurse Name: Dequan Elliott RN Position: [facility] SN RN Member Role: Primary Care Nurse Name: Esmer Rankin RN Position: [facility] PCO RN Member Role: Primary Care Nurse Name: Kaylene Maier RN Position: [facility] RN Supv Member Role: Primary Care Nurse Name: Juno Torres RN Position: [facility] Onco RN Member Role: Primary Care Nurse Name: Yojana Dior RN Position: [facility] RN Member Role: Primary Care Nurse Name: Farideh Balderas RN Position: [facility] Enterprise Records Analyst Member Role: Primary Care Nurse Name: Roxana Ann RN Position: [facility] RN Member Role: Primary Care Nurse Name: Vanessa Shelton RN Position: [facility] RN Member Role: Primary Care Nurse Name: Derick Calixto RN Position: [facility] RN Member Role: Primary Care Nurse Name: Fariba Bradley RN Position: [facility] RN Member Role: Primary Care Nurse Name: Fariba Ornelas RN Position: [facility] NEO RN W/OE and Tasks Member Role: Primary Care Nurse Name: Steph Tierney RN Position: [facility] RN Member Role: Primary Care Nurse Name: Portia Baires RN Position: [facility] RN Member Role: Primary Care Nurse Name: Isidro Valle RN Position: [facility] RN Supv Member Role: Primary Care Nurse Name: Leny Shanks RN Position: [facility] RN Supv Member Role: Primary Care Nurse Name: Steph Smith RN Position: [facility] RN Member Role: Primary Care Nurse Name: Casandra Robbins RN Position: [facility] RN Supv Member Role: Primary Care Nurse Name: Maris Crowell RN Position: [facility] RN Member Role: Primary Care Nurse Name: Coni Romero LPN Position: [facility] RN Member Role: Primary Care Nurse Name: Abigail Rabago RN Position: [facility] RN Member Role: Primary Care Nurse Name: Halina Burger RN Position: [facility] Onco RN Member Role: Primary Care Nurse Name: Linda Lockwood RN Position: [facility] [employer] Records Analyst Member Role: Primary Care Nurse Name: Dedra Chatman RN, I Position: [facility] RN Member Role: Primary Care Nurse Name: David Oquendo RN Position: [facility] RN Supv Member Role: Primary Care Nurse Care Team Related Persons Name: JACKIE ALANIZ Address: [address] [place] [address] Name: JUNO MENA Address: home [address] [place] [address] Name: JOVITA GALARZA Address: home [address] [place] [address] Name: KARL GALARZA Address: home [address] [place] [address] Name: EZEKIEL GALARZA Address: home [address] [place] [address] Name: MICHAEL BARRETT Address: home [address] [place] [address] Name: SHAD TUBBS Address: home [address] [place] [address]
--- OUTSIDE RECORDS SUMMARY | 2022-12-14 05:55 | XMS_ITS | Continuity of Care Document ---
Author Name Unknown Organization [facility] Address [address] [place] [id number]- Care Team Providers Care Textiles Printer Name Role Phone Lesia Cuevas MD Primary Care Phys[place] [facility] [place] - 09/24/[address] [id number] Attending Physician: Rick Augustin MD Admitting Physician: Rick Augustin MD [...] Comment: normal saline diluent added lot number [id number] expires 07/23/2022 2Result Comment: Afluria Medications allopurinol 100 mg oral tablet 100 mg, 1, tablet, By Mouth, Daily, # 90 tablet, Refills 1, Tot. Refills 1, Maintenance, 10/24/21 13:18:00 EDT, Route to Pharmacy Electronically, [facility]/pharmacy #[id number], Partial fill upon patient requestif the prescription is for a schedule II opioid lynn... Start Date: 10/24/21 Status: Ordered Ativan 1 mg oral tablet 1 tablet = 1 mg, By Mouth, 2 times a day, PRN as needed for anxiety, for 7 days, # 14 tablet, 0 Refills, Acute 09/25/22 8:49:00 EDT, 09/18/22 8:49:00 EDT, Tablet, [facility] #[id number], Partialfill upon patient request if the prescription is fo... Start Date: 09/18/22 Stop Date: 09/25/22 Status: Ordered clindamycin 1% topical lotion 1 application, Topically, 2 times a day, apply to L armpit lesions/bumps twice per day until healed, # 60 mL, 0 Refills, Maintenance, 10/24/21 15:35:00 EDT, Lotion, [facility]/pharmacy #[id number], Partial fill upon patient request if the prescription is for a amado... Start Date: 10/24/21 Status: Ordered Daily Lazara oral tablet 1 tablet, By Mouth, Daily Start Date: 07/03/21 Status: Ordered diphenhydrAMINE 25 mg oral capsule 1 capsule, By Mouth, 3 times a day, PRN NEEDED FOR ITCHING, # 90 capsule, 2 Refills, Maintenance, 05/14/22 15:26:00 EDT, [id number], 163, cm, 05/12/22 16:01:00 EDT, Height, 61.5, kg, 05/10/2316:29:00 EDT, Dry Weight Start Date: 05/14/22 Status: Ordered Estrace Vaginal Cream 0.1 mg/g = 1 Gm, Vaginally, Daily at bedtime, # 90 Gm, 3 Refills, Maintenance, 12/06/21 14:57:00 EDT, [id number], Partial fill upon patient [...] each, 6 Refills, Maintenance, 07/08/22 17:26:00 EDT, [place], [id number], Partial fill upon patient request [...] 04/11/22 15:56:00 EST, Route to Pharmacy Electronically, [facility]/pharmacy #[id number], 163, cm, 04/11/22 15:32:00 EST, Height, 60.8, kg, 02/19/22 19:05:00 EST, Dry Weight Start Date: 04/11/22 Status: Ordered MiraLax oral powder for reconstitution = 17 Gm, By Mouth, Daily, dissolve in water before taking, # 255 Gm, 1 Refills, Maintenance, 04/11/22 21:05:00 EST, REC Powder, [facility]/pharmacy #[id number], Partial fill upon patient request if the prescription is for a schedule II opioid drug., 17 Gm By Mouth... Start Date: 04/11/22 Status: Ordered nicotine 4 mg oral transmucosal gum See Instructions, CHEW 1 PIECE EVERY 2 HOURS NEEDED FOR SMOKING CESSATION, # 200 gum, 0 Refills,[facility] [id number], 160, cm, 08/01/21 21:18:00 EDT, Height, 72.9, kg, 08/01/21 21:18:00 EDT, Dry Weight Start Date: 08/05/21 Status: Ordered omeprazole 20 mg oral enteric coated capsule 1 capsule = 20 mg, By Mouth, Daily, # 90 capsule, 10 Refills, Maintenance, 10/24/21 12:29:00 EDT, [facility]/pharmacy #[id number], Partial fill upon patient request if the prescription is for a schedule II opioiddrug., 160, cm, 10/24/21 11:46:00 EDT, Height, 72.9... Start Date: 10/24/21 Status: Ordered oxyCODONE 10 mg oral tablet 2 tablet = 20 mg, By Mouth, Every 4 hours, PRN as needed for pain, for 7 days, # 84 tablet, 0 Refills, Acute 09/25/22 8:49:00 EDT, 09/18/22 8:49:00 EDT, Tablet, [facility] #[id number], Partial fill upon patient request if the prescription is for... Start Date: 09/18/22 Stop Date: 09/25/22 Status: Ordered oxyCODONE 5 mg oral tablet 20 mg, 4, tablet, By Mouth, Every 4 hours, PRN, # 168 tablet, Refills 0, Tot. Refills 0, Maintenance, Pain , Severe, 07/18/22 12:19:00 EDT, Route to Pharmacy Electronically, [facility]/pharmacy #[id number], Scripfor 5 mg tabs [...] 05/12/22 15:17:00 EDT, Route to Pharmacy Electronically, [facility]/pharmacy #[id number], Partial fill upon patient request if the prescription is for a schedule II opioid drug... Start Date: 05/12/22 Status: Ordered QUEtiapine 25 mg oral tablet 1, tablet, By Mouth, 2 times a day, PRN, # 90 tablet, Refills 0, Tot. Refills 0, Maintenance, NEEDED FOR AGITATION, 01/01/22 10:03:00 EST, Route to [facility]acy Electronically, [id number], 160, cm, 10/24/21 11:46:00 EDT, Height, 72.9, kg, 08/01... Start Date: 01/01/22 Status: Ordered sodium zirconium cyclosilicate 10 g oral powder for reconstitution = 5 Gm, By Mouth, Every Thursday and , # 30 each, 0 Refills, Maintenance, 02/24/22 10:38:00 EST, [id number], Partial fill upon patient request [...] Care Team Personnel Name: Indiana Zuleta Position: [facility] Onco RN Member Role: Primary Care Nurse Name: Naila Hinds RN Position: [facility] RN Member Role: Primary Care Nurse Name: Marisa Rosario RN Position: [facility] RN Member Role: Primary Care Nurse Name: Carmen Hdez RN Position: [facility] ED RN W/OE and Tasks Member Role: Primary Care Nurse Name: Jordon Cruz RN Position: [facility] ED RN W/OE and Tasks Member Role: Primary Care Nurse Name: Daisy Rushing RN Position: [facility] RN Member Role: Primary Care Nurse Name: Corinna Fajardo RN Position: [facility] AMB Nurse Member Role: Primary Care Nurse Name: Ira Apodaca RN Position: [facility] ED RN W/OE and Tasks Member Role: Primary Care Nurse Name: Estefany Vincent RN Position: [facility] RN Member Role: Primary Care Nurse Name: Idania More RN Position: [facility] RN Member Role: Primary Care Nurse Name: Paola Rinaldi RN Position: [facility] RN Supv Member Role: Primary Care Nurse Name: Lian Joy RN Position: [facility] RN Member Role: Primary Care Nurse Name: Nikkie Sommers RN Position: [facility] RN Supv Member Role: Primary Care Nurse Name: Jasmine Ortega NP Position: [facility] Associate Professional Member Role: Primary Care Nurse Address: Address: [address] [place] [id number] Name: Rivka Cook RN Position: [facility] RN Member Role: Primary Care Nurse Name: Daisy Brower RN Position: [facility] RN Member Role: Primary Care Nurse Name: Kimberly Skinner RN Position: [facility] RN Member Role: Primary Care Nurse Name: Abhishek Johnson RN Position: [facility] RN Member Role: Primary Care Nurse Name: Lesia Cuevas MD Position: [facility] Resident Member Role: PCP Address: Address: [address] [place] [id number]- Name: Barbara Rae RN Position: [facility] AMB Nurse Member Role: Primary Care Nurse Name: Ina Renee RN Position: [facility] RN Member Role: Primary Care Nurse Name: Yesica Delong RN Position: [facility] ED RN W/OE and Tasks Member Role: Primary Care Nurse Name: Paula Earl RN Position: [facility] RN Member Role: Primary Care Nurse Name: Susan Miller RN Position: [facility] SN RN Member Role: Primary Care Nurse Name: Pao Key Position: [facility] RN Member Role: Primary Care Nurse Name: Maris Trevino RN Position: [facility] ED RN W/OE and Tasks Member Role: Primary Care Nurse Name: Steph Gordillo RN Position: [facility] OB RN Member Role: Primary Care Nurse Name: Rene Ramos DO Position: [facility] Renal MD Member Role: Lifetime Consulting Physician Address: Address: [address] [place], [place] [address] [place] [address]- Name: Ryder Matthews Position: [facility] RN Member Role: Primary Care Nurse Name: Mary Correia RN Position: [facility] ED RN W/OE and Tasks Member Role: Primary Care Nurse Name: Tierra Razo RN Position: [facility] RN Member Role: Primary Care Nurse Name: Librado Saucedo RN Position: [facility] RN Member Role: Primary Care Nurse Name: Laron Davenport III, RN Position: [facility] RN Member Role: Primary Care Nurse Name: Danya Govea RN Position: [facility] RN Member Role: Primary Care Nurse Name: Idania Millard RN Position: [facility] RN Member Role: Primary Care Nurse Name: Blake Grant RN Position: [facility] SN RN Member Role: Primary Care Nurse Name: Mariella Ojeda RN Position: [facility] RN Member Role: Primary Care Nurse Name: Ana Do RN Position: [facility] RN Member Role: Primary Care Nurse Name: Yaquelin Dawkins RN Position: [facility] RN Member Role: Primary Care Nurse Name: Cari Khan RN Position: [facility] RN Member Role: Primary Care Nurse Name: Dequan Elliott RN Position: [facility] SN RN Member Role: Primary Care Nurse Name: Esmer Rankin RN Position: [facility] SN RN Member Role: Primary Care Nurse Name: Juno Torres RN Position: [facility] Onco RN Member Role: Primary Care Nurse Name: Yojana Dior RN Position: [facility] RN Member Role: Primary Care Nurse Name: Farideh Balderas RN Position: [facility] Counter Helper Member Role: Primary Care Nurse Name: Roxana Ann RN Position: [facility] RN Member Role: Primary Care Nurse Name: Vanessa Shelton RN Position: [facility] RN Member Role: Primary Care Nurse Name: Derick Calixto RN Position: [facility] RN Member Role: Primary Care Nurse Name: Fariba Bradley RN Position: [facility] RN Member Role: Primary Care Nurse Name: Fariba Ornelas RN Position: [facility] ED RN W/OE and Tasks Member Role: Primary Care Nurse Name: Steph Tierney RN Position: [facility] RN Member Role: Primary Care Nurse Name: Portia Baires RN Position: [facility] SN RN Member Role: Primary Care Nurse Name: Isidro Valle RN Position: [facility] RN Supv Member Role: Primary Care Nurse Name: Leny Shanks RN Position: [facility] RN Supv Member Role: Primary Care Nurse Name: Steph Smith RN Position: [facility] RN Member Role: Primary Care Nurse Name: Casandra Robbins RN Position: [facility] RN Supv Member Role: Primary Care Nurse Name: Maris Crowell RN Position: [facility] RN Member Role: Primary Care Nurse Name: Coni Romero LPN Position: [facility] RN Member Role: Primary Care Nurse Name: Abigail Rabago RN Position: [facility] RN Member Role: Primary Care Nurse Name: Halina Burger RN Position: [facility] Onco RN Member Role: Primary Care Nurse Name: Linda Lockwood RN Position: [facility] Counter Helper Member Role: Primary Care Nurse Name: Dedra Chatman RN, I Position: [facility] RN Member Role: Primary Care Nurse Name: David Oquendo RN Position: [facility] RN Member Role: Primary Care Nurse Care Team Related Persons Name: JACKIE ALANIZ Address: [address] [place] [address] Name: JUNO MENA Address: [address] [place] [address] Name: JOVITA GALARZA Address: home [address] [place] [address] Name: KARL GALARZA Address: home [address] [place] [address] Name: EZEKIEL GALARZA Address: [address] [place] [address] Name: MICHAEL BARRETT Address: home [address] [place] [id number] Name: SHAD TUBBS Address: home [address] [place] [id number]
--- OUTSIDE RECORDS SUMMARY | 2022-12-14 05:55 | XMS_ITS | Continuity of Care Document ---
Author Name Unknown Organization [facility] Address [address] [place] [id number]- Care Team Providers Care Patient Safety Officer Name Role Phone Lesia Cuevas MD Primary Care Physician Encounter [facility] [place] Date(s): 04/03/22 - 05/10/[address] [id number] Attending Physician: Joyce Ireland MD Admitting Physician: [...] Comment: normal saline diluent added lot number [id number] expires 07/23/2022 2Result Comment: Afluria Medications allopurinol 100 mg oral tablet 100 mg, 1, tablet, By Mouth, Daily, # 90 tablet, Refills 1, Tot. Refills 1, Maintenance, 10/24/21 13:18:00 EDT, Route to Pharmacy Electronically, [facility]/pharmacy #[id number], Partial fill upon patient requestif the prescription is for a schedule II opioid lynn... Start Date: 10/24/21 Status: Ordered clindamycin 1% topical lotion 1 application, Topically, 2 times a day, apply to L armpit lesions/bumps twice per day until healed, # 60 mL, 0 Refills, Maintenance, 10/24/21 15:35:00 EDT, Lotion, [facility]/pharmacy #[id number], Partial fill upon [...] EDT, Dry Weight Start Date: 10/24/21 Status: Ordered Estrace Vaginal Cream 0.1 mg/g = 1 Gm, Vaginally, Daily at bedtime, # 90 Gm, 3 Refills, Maintenance, 12/06/21 14:57:00 EDT, [facility]/pharmacy #[id number], Partial fill upon patient request if the prescription is for a schedule II opioid drug., 160, cm, 12/06/21 14:22:00 EDT, Height, 72.9, kg,... Start Date: 12/06/21 Status: Ordered Eucerin Plus topical lotion 1 application, Topically, 2 times a day, PRN for dry skin, # 180 mL, 0 Refills, Maintenance, 03/12/22 16:28:00 EST, Lotion, [facility]/pharmacy #[id number], Partial fill upon patient request if the prescription is for a schedule II opioid drug., 1 application Topi... Start Date: 03/12/22 Status: Ordered gabapentin 300 mg oral capsule 300 mg, 1, capsule, By Mouth, 3 times a day, # 90 capsule, Refills 0, Tot. Refills 0, Maintenance, 10/24/21 12:29:00 EDT, [id number] Partial fill upon patient request if [...] 5 Refills, Maintenance, 10/24/21 12:29:00 EDT, Tablet, [facility]/pharmacy #[id number], Partial fill upon patient request if the prescription is for a schedule II opioid drug., 160,... Start Date: 10/24/21 Status: Ordered loratadine 10 mg oral tablet 10 mg, 1, tablet, By Mouth, Daily, # 90 tablet, Refills 11, Tot. Refills 11, Maintenance, 04/11/22 15:56:00 EST, Route to Pharmacy Electronically, [facility]/pharmacy #[id number], 163, cm, 04/11/22 15:32:00 EST, Height, 60.8, kg, 02/19/22 19:05:00 EST, Dry Weight Start Date: 04/11/22 Status: Ordered MiraLax oral powder for reconstitution = 17 Gm, By Mouth, Daily, dissolve in water before taking, # 255 Gm, 1 Refills, Maintenance, 04/11/22 21:05:00 EST, REC Powder, [facility]/pharmacy #[id number], Partial fill upon patient request if the prescription is for a schedule II opioid drug., 17 Gm By Mouth... Start Date: 04/11/22 Status: Ordered nicotine 4 mg oral transmucosal gum See Instructions, CHEW 1 PIECE EVERY 2 HOURS NEEDED FOR SMOKING CESSATION, # 200 gum, 0 Refills,[id number], 160, cm, 08/01/21 21:18:00 EDT, Height, 72.9, kg, 08/01/21 21:18:00 EDT, Dry Weight Start Date: 08/05/21 Status: Ordered omeprazole 20 mg oral enteric coated capsule 1 capsule = 20 mg, By Mouth, Daily, # 90 capsule, 10 Refills, Maintenance, 10/24/21 12:29:00 EDT, [facility]/pharmacy #[id number], Partial fill upon patient request if the prescription is for a schedule II opioiddrug., 160, cm, 10/24/21 11:46:00 EDT, Height, 72.9... Start Date: 10/24/21 Status: Ordered oxyCODONE 10 mg oral tablet 2 tablet = 20 mg, By Mouth, Every 4 hours, PRN Pain , Moderate, # 84 tablet, 0 Refills, Maintenance, 05/08/22 15:29:00 EDT, Tablet, [facility]/pharmacy #[id number], Partial fill upon patient request if the prescription is for a schedule II opioid drug., 163, cm, 0... Start Date: 05/08/22 Status: Ordered ProAir HFA 90 mcg/inh inhalation aerosol 2 puffs, Inhalation, Every 6 hours Start Date: 07/03/21 Status: Ordered QUEtiapine 25 mg oral tablet 1, tablet, By Mouth, 2 times a day, PRN, # 90 tablet, Refills 0, Tot. Refills 0, Maintenance, NEEDED FOR AGITATION, 01/01/22 10:03:00 EST, Route to Pharmacy Electronically, [facility]/pharmacy #[id number], 160, cm, 10/24/21 11:46:00 EDT, Height, 72.9, kg, 08/01... Start Date: 01/01/22 Status: Ordered sodium zirconium cyclosilicate 10 g oral powder for reconstitution = 5 Gm, By Mouth, Every Thursday and , # 30 each, 0 Refills, Maintenance, 02/24/22 10:38:00 EST, [facility]/pharmacy #[id number], Partial fill upon [...] Care Team Personnel Name: Indiana Zuleta Position: [facility] Onco RN Member Role: Primary Care Nurse Name: Naila Hinds RN Position: [facility] RN Member Role: Primary Care Nurse Name: Marisa Rosario RN Position: [facility] RN Member Role: Primary Care Nurse Name: Carmen Hdez RN Position: [facility] ED RN W/OE and Tasks Member Role: Primary Care Nurse Name: Jordon Cruz RN Position: [facility] ED RN W/OE and Tasks Member Role: Primary Care Nurse Name: Daisy Rushing RN Position: [facility] RN Member Role: Primary Care Nurse Name: Corinna Fajardo RN Position: [facility] PCO RN Member Role: Primary Care Nurse Name: Ira Apodaca RN Position: [facility] ED RN W/OE and Tasks Member Role: Primary Care Nurse Name: Estefany Vincent RN Position: [facility] RN Member Role: Primary Care Nurse Name: Idania More RN Position: [facility] RN Member Role: Primary Care Nurse Name: Jessica Schmidt RN Position: [facility] RN Member Role: Primary Care Nurse Name: Paola Rinaldi RN Position: [facility] RN Supv Member Role: Primary Care Nurse Name: Lian Joy RN Position: [facility] RN Member Role: Primary Care Nurse Name: Nikkie Sommers RN Position: [facility] RN Supv Member Role: Primary Care Nurse Name: Jasmine Ortega NP Position: [facility] Associate Professional Member Role: Primary Care Nurse Address: Address: [address] [place] [id number] Name: Rivka Cook RN Position: [facility] RN Member Role: Primary Care Nurse Name: Daisy Brower RN Position: [facility] RN Member Role: Primary Care Nurse Name: Kimberly Skinner RN Position: [facility] RN Member Role: Primary Care Nurse Name: Abhishek Johnson RN Position: [facility] RN Member Role: Primary Care Nurse Name: Lesia Cuevas MD Position: [facility] Resident Member Role: PCP Address: Address: [address] [place] [id number]- Name: Rene Pham RN Position: [facility] RN Member Role: Primary Care Nurse Name: Barbara Rae RN Position: [facility] RN Member Role: Primary Care Nurse Name: Ina Renee RN Position: [facility] RN Member Role: Primary Care Nurse Name: Chel Torres RN Position: [facility] RN Member Role: Primary Care Nurse Name: Yesica Delong RN Position: [facility] ED RN W/OE and Tasks Member Role: Primary Care Nurse Name: Vy Rogers RN Position: [facility] RN Member Role: Primary Care Nurse Name: Paula Earl RN Position: [facility] RN Member Role: Primary Care Nurse Name: Susan Miller RN Position: [facility] SN RN Member Role: Primary Care Nurse Name: Silva Colin RN Position: [facility] RN Supv Member Role: Primary Care Nurse Name: Pao Key Position: [facility] RN Member Role: Primary Care Nurse Name: Maris Trevino RN Position: [facility] ED RN W/OE and Tasks Member Role: Primary Care Nurse Name: Steph Gordillo RN Position: [facility] OB RN Member Role: Primary Care Nurse Name: Rene Ramos DO Position: [facility] Renal MD Member Role: Lifetime Consulting Physician Address: Address: [address] [place], [place] [address] [place] [address]- Name: Ryder Matthews Position: [facility] RN Member Role: Primary Care Nurse Name: Mary Correia RN Position: [facility] ED RN W/OE and Tasks Member Role: Primary Care Nurse Name: Tierra Razo RN Position: [facility] RN Member Role: Primary Care Nurse Name: Librado Saucedo RN Position: [facility] RN Member Role: Primary Care Nurse Name: Laron Davenport III, RN Position: [facility] RN Member Role: Primary Care Nurse Name: Danya Govea RN Position: [facility] RN Member Role: Primary Care Nurse Name: Idania Millard RN Position: [facility] RN Member Role: Primary Care Nurse Name: Blake Grant RN Position: [facility] SN RN Member Role: Primary Care Nurse Name: Mariella Ojeda RN Position: [facility] RN Member Role: Primary Care Nurse Name: Ana Do RN Position: [facility] RN Member Role: Primary Care Nurse Name: Yaquelin Dawkins RN Position: [facility] RN Member Role: Primary Care Nurse Name: Cari Khan RN Position: [facility] RN Member Role: Primary Care Nurse Name: Dequan Elliott RN Position: [facility] SN RN Member Role: Primary Care Nurse Name: Esmer Rankin RN Position: [facility] PCO RN Member Role: Primary Care Nurse Name: Kaylene Maier RN Position: [facility] RN Supv Member Role: Primary Care Nurse Name: Juno Torres RN Position: [facility] RN Member Role: Primary Care Nurse Name: Yojana Dior RN Position: [facility] RN Member Role: Primary Care Nurse Name: Farideh Balderas RN Position: [facility] Hospital Supervisor [employer] Member Role: Primary Care Nurse Name: Roxana Ann RN Position: [facility] RN Member Role: Primary Care Nurse Name: Derick Calixto RN Position: [facility] RN Member Role: Primary Care Nurse Name: Fariba Bradley RN Position: [facility] RN Member Role: Primary Care Nurse Name: Fariba Ornelas RN Position: [facility] ED RN W/OE and Tasks Member Role: Primary Care Nurse Name: Steph Tierney RN Position: [facility] RN Member Role: Primary Care Nurse Name: Portia Baires RN Position: [facility] RN Member Role: Primary Care Nurse Name: Isidro Valle RN Position: [facility] RN Supv Member Role: Primary Care Nurse Name: Leny Shanks RN Position: [facility] RN Supv Member Role: Primary Care Nurse Name: Steph Smith RN Position: [facility] RN Member Role: Primary Care Nurse Name: Casandra Robbins RN Position: [facility] RN Supv Member Role: Primary Care Nurse Name: Maris Crowell RN Position: [facility] RN Member Role: Primary Care Nurse Name: Coni Romero LPN Position: [facility] RN Member Role: Primary Care Nurse Name: Abigail Rabago RN Position: [facility] RN Member Role: Primary Care Nurse Name: Halina Burger RN Position: [facility] Onco RN Member Role: Primary Care Nurse Name: Linda Lockwood RN Position: [facility] Hospital Supervisor [employer] Member Role: Primary Care Nurse Name: Dedra Chatman RN, I Position: [facility] RN Member Role: Primary Care Nurse Name: David Oquendo RN Position: [facility] RN Supv Member Role: Primary Care Nurse Care Team Related Persons Name: JACKIE ALANIZ Address: [address] [place] [address] Name: JUNO MENA Address: home [address] [place] [address] Name: JOVITA GALARZA Address: home [address] [place] [address] Name: KARL GALARZA Address: [place] [address] Name: EZEKIEL GALARZA Address: home [address] [place] [address] Name: MICHAEL BARRETT Address: [place] [address] Name: SHAD TUBBS Address: home [address] [place] [id number]
--- OUTSIDE RECORDS SUMMARY | 2022-12-14 05:55 | XMS_ITS | Continuity of Care Document ---
Author Name Unknown Organization [facility] Address [address] [place] [address]- Care Team Providers Care Bell Valet Name Role Phone Lesia Cuevas MD Primary Care Physician [place] [facility] [place] - 11/20/[address] [address]- Attending Physician: Jamaica Aguero Admitting Physician: [place] [...] Comment: normal saline diluent added lot number [id number] expires 07/23/2022 2Result Comment: Afluria Medications allopurinol 100 mg oral tablet 100 mg, 1, tablet, By Mouth, Daily, # 90 tablet, Refills 1, Tot. Refills 1, Maintenance, 10/24/21 13:18:00 EDT, Route to Pharmacy Electronically, [facility]/pharmacy #[id number], Partial fill upon patient requestif the prescription is for a schedule II opioid lynn... Start Date: 10/24/21 Status: Ordered clindamycin 1% topical lotion 1 application, Topically, 2 times a day, apply to L armpit lesions/bumps twice per day until healed, # 60 mL, 0 Refills, Maintenance, 10/24/21 15:35:00 EDT, Lotion, [facility]/pharmacy #[id number], [...] Refills, Maintenance, 05/14/22 15:26:00 EDT, [id number], 163, cm, 05/12/22 16:01:00 EDT, Height, 61.5, kg, 05/10/2316:29:00 EDT, Dry Weight Start Date: 05/14/22 Status: Ordered Estrace Vaginal Cream 0.1 mg/g = 1 Gm, Vaginally, Daily at bedtime, # 90 Gm, 3 Refills, Maintenance, 12/06/21 14:57:00 EDT, [facility]/pharmacy #[id number], Partial fill upon patient request if the prescription is for a schedule II opioid drug., 160, cm, 12/06/21 14:22:00 EDT, Height, 72.9, kg,... Start Date: 12/06/21 Status: Ordered Eucerin Plus topical lotion 1 application, Topically, 2 times a day, PRN for dry skin, # 180 mL, 0 Refills, Maintenance, 03/12/22 16:28:00 EST, Lotion, [facility]/pharmacy #[id number], Partial fill upon patient request if the prescription is for a schedule II opioid drug., 1 application Topi... Start Date: 03/12/22 Status: Ordered Flonase 50 mcg/inh nasal spray 1 sprays, Nares, Both, 2 times a day, # 1 each, 6 Refills, Maintenance, 07/08/22 17:26:00 EDT, [place], [id number], Partial fill upon patient request [...] 04/11/22 15:56:00 EST, Route to Pharmacy Electronically, [facility]/pharmacy #[id number], 163, cm, 04/11/22 15:32:00 EST, Height, 60.8, kg, 02/19/22 19:05:00 EST, Dry Weight Start Date: 04/11/22 Status: Ordered LORazepam 1 mg oral tablet 1 tablet = 1 mg, By Mouth, 2 times a day, PRN as needed for anxiety, for 7 days, # 14 tablet, 0 Refills, Acute 11/25/22 14:20:00 EDT, 11/18/22 14:20:00 EDT, Tablet, [facility]/pharmacy #[id number], Partial fill upon patient request if the prescription is for a amado... Start Date: 11/18/22 Stop Date: 11/25/22 Status: Ordered MiraLax oral powder for reconstitution = 17 Gm, By Mouth, Daily, dissolve in water before taking, # 255 Gm, 1 Refills, Maintenance, 04/11/22 21:05:00 EST, REC Powder, [facility]/pharmacy #[id number], Partial fill upon patient request if the prescription is for a schedule II opioid drug., 17 Gm By Mouth... Start Date: 04/11/22 Status: Ordered nicotine 4 mg oral transmucosal gum See Instructions, CHEW 1 PIECE EVERY 2 HOURS NEEDED FOR SMOKING CESSATION, # 200 gum, 0 Refills,[facility] [id number], 160, cm, 08/01/21 21:18:00 EDT, Height, 72.9, kg, 08/01/21 21:18:00 EDT, Dry Weight Start Date: 08/05/21 Status: Ordered omeprazole 20 mg oral enteric coated capsule 1 capsule = 20 mg, By Mouth, Daily, # 90 capsule, 10 Refills, Maintenance, 10/24/21 12:29:00 EDT, [facility]/pharmacy #[id number], Partial fill upon patient request if the prescription is for a schedule II opioiddrug., 160, cm, 10/24/21 11:46:00 EDT, Height, 72.9... Start Date: 10/24/21 Status: Ordered oxyCODONE 10 mg oral tablet 2 tablet = 20 mg, By Mouth, Every 4 hours, PRN as needed for pain, # 84 tablet, 0 Refills, Maintenance, 11/20/22 11:21:00 EDT, Tablet, [facility]/pharmacy #[id number], Partial fill upon patient request if the prescription is for a schedule II opioid drug., 163, cm... Start Date: 11/20/22 Stop Date: 11/27/22 Status: Ordered oxyCODONE 5 mg oral tablet 20 mg, 4, tablet, By Mouth, Every 4 hours, PRN, # 168 tablet, Refills 0, Tot. Refills 0, Maintenance, Pain , Severe, 07/18/22 12:19:00 EDT, Route to Pharmacy Electronically, [facility]/pharmacy #[id number], Scripfor 5 mg tabs sent [...] 05/12/22 15:17:00 EDT, Route to Pharmacy Electronically, [facility] [...] 01/01/22 10:03:00 EST, Route to Pharmacy Electronically, [facility]/pharmacy #[id number], 160, cm, 10/24/21 11:46:00 EDT, Height, 72.9, kg, 08/01... Start Date: 01/01/22 Status: Ordered sodium zirconium cyclosilicate 10 g oral powder for reconstitution = 5 Gm, By Mouth, Every Thursday and , # 30 each, 0 Refills, Maintenance, 02/24/22 10:38:00 EST, [facility]/pharmacy #[id number], [...] 30 days ago entered on: 12/26/20 Sex Laboratory * Event Display: Non Lab Results Authored Date: [id number] Note * Marleny Elliott RN: PERFORM, SIGN, VERIFY Event Display: Case Management Discharge Plan Authored Date: [id number] Patient: JOSE GALARZA Age: 48 years Sex: Female : 1970 Associated Diagnoses: None Author: Marleny Elliott RN Care Management Discharge Call Note Admit date 06/18/2018 Discharge date 06/18/2018 Date of contact 06/23/2018 Diagnosis [facility] Looks like you were recently discharged from the hospital (ED), how are you feeling? Call placed to Pt. [phone] Pt. reported she does not have any questions/concerns about discharge instructions . Pt. confirmed follow up appt. scheduled for 06/30/18 1:00pm. No additional questions/concerns presented. Do you have an appointment already scheduled with your PCP? Yes Appointment scheduled? Date 06/30/2018 Patient Care team information Care Team Personnel Name: Indiana Zuleta Position: [facility] Onco RN Member Role: Primary Care Nurse Name: Naila Hinds RN Position: [facility] RN Member Role: Primary Care Nurse Name: Marisa Rosario RN Position: [facility] RN Member Role: Primary Care Nurse Name: Carmen Hdez RN Position: [facility] ED RN W/OE and Tasks Member Role: Primary Care Nurse Name: Jordon Cruz RN Position: [facility] ED RN W/OE and Tasks Member Role: Primary Care Nurse Name: Daisy Rushing RN Position: [facility] RN Member Role: Primary Care Nurse Name: Corinna Fajardo RN Position: [facility] AMB Nurse Member Role: Primary Care Nurse Name: Ira Apodaca RN Position: [facility] ED RN W/OE and Tasks Member Role: Primary Care Nurse Name: Estefany Vincent RN Position: [facility] RN Member Role: Primary Care Nurse Name: Idania More RN Position: [facility] RN Member Role: Primary Care Nurse Name: Paola Rinaldi RN Position: [facility] RN Supv Member Role: Primary Care Nurse Name: Lian Joy RN Position: [facility] RN Member Role: Primary Care Nurse Name: Nikkie Sommers RN Position: [facility] RN Supv Member Role: Primary Care Nurse Name: Jasmine Ortega NP Position: [facility] Associate Professional Member Role: Primary Care Nurse Address: Address: [address] [place] [id number] Name: Rivka Cook RN Position: [facility] RN Member Role: Primary Care Nurse Name: Daisy Brower RN Position: [facility] RN Member Role: Primary Care Nurse Name: Kimberly Skinner RN Position: [facility] RN Member Role: Primary Care Nurse Name: Abhishek Johnson RN Position: [facility] RN Member Role: Primary Care Nurse Name: Lesia Cuevas MD Position: [facility] Resident Member Role: PCP Address: Address: [address] [place] [address]- Name: Barbara Rae RN Position: [facility] AMB Nurse Member Role: Primary Care Nurse Name: Ina Renee RN Position: [facility] RN Member Role: Primary Care Nurse Name: Yesica Deolng RN Position: [facility] ED RN W/OE and Tasks Member Role: Primary Care Nurse Name: Paula Earl RN Position: [facility] RN Member Role: Primary Care Nurse Name: Susan Miller RN Position: [facility] ED RN W/OE and Tasks Member Role: Primary Care Nurse Name: Pao Key Position: [facility] RN Member Role: Primary Care Nurse Name: Maris Trevino RN Position: [facility] ED RN W/OE and Tasks Member Role: Primary Care Nurse Name: Steph Gordillo RN Position: [facility] OB RN Member Role: Primary Care Nurse Name: Rene Ramos DO Position: [facility] Renal MD Member Role: Lifetime Consulting Physician Address: Address: [address] [place], [place] [address] [place], [place] [address] Name: Ryder Matthews Position: [facility] RN Member Role: Primary Care Nurse Name: Mary Correia RN Position: [facility] ED RN W/OE and Tasks Member Role: Primary Care Nurse Name: Tierra Razo RN Position: [facility] RN Member Role: Primary Care Nurse Name: Librado Saucedo RN Position: [facility] RN Member Role: Primary Care Nurse Name: Laron Davenport III, RN Position: [facility] RN Member Role: Primary Care Nurse Name: Danya Govea RN Position: [facility] RN Member Role: Primary Care Nurse Name: Idania Millard RN Position: [facility] RN Member Role: Primary Care Nurse Name: Blake Grant RN Position: [facility] SN RN Member Role: Primary Care Nurse Name: Mariella Ojeda RN Position: [facility] RN Member Role: Primary Care Nurse Name: Ana Do RN Position: [facility] RN Member Role: Primary Care Nurse Name: Yaquelin Dawkins RN Position: [facility] RN Member Role: Primary Care Nurse Name: Cari Khan RN Position: [facility] RN Member Role: Primary Care Nurse Name: Dequan Elliott RN Position: [facility] SN RN Member Role: Primary Care Nurse Name: Esmer Rankin RN Position: [facility] AMB Nurse Member Role: Primary Care Nurse Name: Suzanna Timmons RN Position: [facility] SN RN Member Role: Primary Care Nurse Name: Juno Torres RN Position: [facility] Onco RN Member Role: Primary Care Nurse Name: Yojana Dior RN Position: [facility] RN Member Role: Primary Care Nurse Name: Farideh Balderas RN Position: [facility] Hospital Contract Officer Member Role: Primary Care Nurse Name: Roxana Ann RN Position: [facility] RN Member Role: Primary Care Nurse Name: Vanessa Shelton RN Position: [facility] RN Member Role: Primary Care Nurse Name: Derick Calixto RN Position: [facility] RN Member Role: Primary Care Nurse Name: Fariba Bradley RN Position: [facility] RN Member Role: Primary Care Nurse Name: Fariba Ornelas RN Position: [facility] ED RN W/OE and Tasks Member Role: Primary Care Nurse Name: Steph Tierney RN Position: [facility] RN Member Role: Primary Care Nurse Name: Portia Baires RN Position: [facility] SN RN Member Role: Primary Care Nurse Name: Leny Shanks RN Position: [facility] RN Supv Member Role: Primary Care Nurse Name: Steph Smith RN Position: [facility] RN Member Role: Primary Care Nurse Name: Casandra Robbins RN Position: [facility] RN Supv Member Role: Primary Care Nurse Name: Maris Crowell RN Position: [facility] RN Member Role: Primary Care Nurse Name: Coni Romero LPN Position: [facility] RN Member Role: Primary Care Nurse Name: Abigail Rabago RN Position: [facility] RN Member Role: Primary Care Nurse Name: Halina Burger RN Position: [facility] Onco RN Member Role: Primary Care Nurse Name: Linda Lockwood RN Position: [facility] Contract Officer Member Role: Primary Care Nurse Name: Dedra Chatman RN, I Position: [facility] RN Member Role: Primary Care Nurse Name: David Oquendo RN Position: [facility] RN Member Role: Primary Care Nurse Care Team Related Persons Name: JACKIE ALANIZ Address: [address] [place] [address] Name: JUNO MENA Address: home [address] [place] [address] Name: JOVITA GALARZA Address: home [address] [place] [address] Name: KARL GALARZA Address: home [address] [place] [address] Name: EZEKIEL GALARZA Address: home [address] [place] [address] Name: MICHAEL BARRETT Address: home [address] [place] [address] Name: SHAD TUBBS Address: home [address] [place] [address]
--- OUTSIDE RECORDS SUMMARY | 2022-12-14 05:55 | XMS_ITS | Continuity of Care Document ---
Author Name Unknown Organization [facility] Address [address] [place] [id number]- Care Team Providers Care President/[employer] Name Role Phone Lesia Cuevas MD Primary Care Physician Encounter [facility] Date(s): 01/14/22 - 02/22/[address] [address] Attending Physician: Not On Staff , Wing [place] Admitting Physician: Not On Staff , Wing [place] Referring Physician: Lesia Cuevas MD Allergies, Adverse [...] Comment: normal saline diluent added lot number [id number] expires 07/23/2022 2Result Comment: Afluria Medications allopurinol 100 mg oral tablet 100 mg, 1, tablet, By Mouth, Daily, # 90 tablet, Refills 1, Tot. Refills 1, Maintenance, 10/24/21 13:18:00 EDT, Route to Pharmacy Electronically, [id number], Partial fill upon patient requestif the [...] 72.9, kg,... Start Date: 12/06/21 Status: Ordered gabapentin 300 mg oral capsule [...] 5 Refills, Maintenance, 10/24/21 12:29:00 EDT, Tablet, [facility]/pharmacy #[id number], Partial fill upon patient request if the prescription is for a schedule II opioid drug., 160,... Start Date: 10/24/21 Status: Ordered loratadine 10 mg oral tablet 10 mg, 1, tablet, By Mouth, Daily, # 90 tablet, Refills 11, Tot. Refills 11, Maintenance, 08/29/21 16:56:00 EDT, Route to Pharmacy Electronically, [facility]/pharmacy #[id number], Partial fill upon patient request if the prescription is for a schedule II opioid drShaunna Start Date: 08/29/21 Status: Ordered LORazepam 1 mg oral tablet 1 tablet = 1 mg, By Mouth, 2 times a day, PRN as needed for anxiety, Limited Rx. Please contact at [facility] if ongoing need., # 5 tablet, 0 Refills, Maintenance, 10/15/21 16:13:00 EDT, Tablet, [facility]/pharmacy #1... Start Date: 10/15/21 Status: Ordered nicotine 4 mg oral transmucosal gum See Instructions, CHEW 1 PIECE EVERY 2 HOURS NEEDED FOR SMOKING CESSATION, # 200 gum, 0 Refills,[facility], 160, cm, 08/01/21 21:18:00 EDT, Height, 72.9, [...] Moderate, # 84 tablet, 0 Refills, Maintenance, 02/21/22 13:23:00 EST, Tablet, [facility]/pharmacy #[id number], Partial fill upon patient request if the prescription is for a schedule II opioid drug., 163, cm, 1... Start Date: 02/21/22 Status: Ordered ProAir HFA 90 mcg/inh inhalation aerosol 2 puffs, Inhalation, Every 6 hours Start Date: 07/03/21 Status: Ordered QUEtiapine 25 mg oral tablet 1, tablet, By Mouth, 2 times a day, PRN, # 90 tablet, Refills 0, Tot. Refills 0, Maintenance, NEEDED FOR AGITATION, 01/01/22 10:03:00 EST, Route to Pharmacy Electronically, [facility]/pharmacy #[id number], 160, cm, 10/24/21 11:46:00 EDT, Height, 72.9, kg, 08/01... Start Date: 01/01/22 Status: Ordered Problem List Condition Confirmation Course [...] Care Team Personnel Name: Indiana Zuleta Position: [facility] Onco RN Member Role: Primary Care Nurse Name: Naila Hinds RN Position: [facility] RN Member Role: Primary Care Nurse Name: Marisa Rosario RN Position: [facility] RN Member Role: Primary Care Nurse Name: Carmen Hdez RN Position: [facility] ED RN W/OE and Tasks Member Role: Primary Care Nurse Name: Jordon Cruz RN Position: [facility] ED RN W/OE and Tasks Member Role: Primary Care Nurse Name: Daisy Rushing RN Position: S RN Member Role: Primary Care Nurse Name: Taran Caldera RN Position: [facility] RN Member Role: Primary Care Nurse Name: Corinna Fajardo RN Position: [facility] PCO RN Member Role: Primary Care Nurse Name: Constanza RNIra Position: [facility] ED RN W/OE and Tasks Member Role: Primary Care Nurse Name: Estefany Vincent RN Position: [facility] RN Member Role: Primary Care Nurse Name: Idania More RN Position: [facility] RN Member Role: Primary Care Nurse Name: Jessica Schmidt RN Position: [facility] RN Member Role: Primary Care Nurse Name: Paola Rinaldi RN Position: [facility] RN Supv Member Role: Primary Care Nurse Name: Lian Joy RN Position: [facility] RN Member Role: Primary Care Nurse Name: Nikkie Sommers RN Position: [facility] RN Supv Member Role: Primary Care Nurse Name: Jasmine Ortega NP Position: [facility] Associate Professional Member Role: Primary Care Nurse Address: Address: [address] [place] [id number]- Name: Rivka Cook RN Position: [facility] RN Member Role: Primary Care Nurse Name: Daisy Brower RN Position: [facility] RN Member Role: Primary Care Nurse Name: Kimberly Skinner RN Position: [facility] RN Member Role: Primary Care Nurse Name: Abhishek Johnson RN Position: [facility] RN Member Role: Primary Care Nurse Name: Lesia Cuevas MD Position: [facility] Resident Member Role: PCP Address: Address: [address] [place] [address]- Name: Rene Pham RN Position: [facility] RN Member Role: Primary Care Nurse Name: Barbara Rae RN Position: [facility] RN Member Role: Primary Care Nurse Name: Ina Renee RN Position: [facility] RN Member Role: Primary Care Nurse Name: Chel Torres RN Position: [facility] RN Member Role: Primary Care Nurse Name: Yesica Delong RN Position: [facility] ED RN W/OE and Tasks Member Role: Primary Care Nurse Name: Vy Rogers RN Position: [facility] RN Member Role: Primary Care Nurse Name: Paula Earl RN Position: [facility] RN Member Role: Primary Care Nurse Name: Susan Miller RN Position: [facility] SN RN Member Role: Primary Care Nurse Name: Silva Colin RN Position: [facility] RN Supv Member Role: Primary Care Nurse Name: Pao Key Position: [facility] RN Member Role: Primary Care Nurse Name: Maris Trevino RN Position: [facility] ED RN W/OE and Tasks Member Role: Primary Care Nurse Name: Steph Gordillo RN Position: [facility] OB RN Member Role: Primary Care Nurse Name: Rene Ramos DO Position: [facility] Renal MD Member Role: Lifetime Consulting Physician Address: Address: [address] [place], [place] [address] [place], [place] [address] Name: Ryder Matthews Position: [facility] RN Member Role: Primary Care Nurse Name: Mary Correia RN Position: [facility] ED RN W/OE and Tasks Member Role: Primary Care Nurse Name: Tierra Razo RN Position: [facility] RN Member Role: Primary Care Nurse Name: Librado Saucedo RN Position: [facility] RN Member Role: Primary Care Nurse Name: Laron Davenport III, RN Position: [facility] RN Member Role: Primary Care Nurse Name: Danya Govea RN Position: [facility] RN Member Role: Primary Care Nurse Name: Idania Millard RN Position: [facility] RN Member Role: Primary Care Nurse Name: Blake Grant RN Position: [facility] RN Member Role: Primary Care Nurse Name: Mariella Ojeda RN Position: [facility] RN Member Role: Primary Care Nurse Name: Ana Do RN Position: [facility] RN Member Role: Primary Care Nurse Name: Yaquelin Dawkins RN Position: [facility] RN Member Role: Primary Care Nurse Name: Cari Khan RN Position: [facility] RN Member Role: Primary Care Nurse Name: Dequan Elliott RN Position: [facility] SN RN Member Role: Primary Care Nurse Name: Esmer Rankin RN Position: [facility] FLYNNO RN Member Role: Primary Care Nurse Name: Suzanna Timmons RN Position: [facility] RN Member Role: Primary Care Nurse Name: Kaylene Maier RN Position: [facility] RN Supv Member Role: Primary Care Nurse Name: Juno Torres RN Position: [facility] RN Member Role: Primary Care Nurse Name: Yojana Dior RN Position: [facility] RN Member Role: Primary Care Nurse Name: Farideh Balderas RN Position: [facility] Hospital Exhaust Worker Member Role: Primary Care Nurse Name: Roxana Ann RN Position: [facility] RN Member Role: Primary Care Nurse Name: Derick Calixto RN Position: [facility] RN Member Role: Primary Care Nurse Name: Fariba Bradley RN Position: [facility] RN Member Role: Primary Care Nurse Name: Fariba Ornelas RN Position: [facility] ED RN W/OE and Tasks Member Role: Primary Care Nurse Name: Steph Tierney RN Position: [facility] RN Member Role: Primary Care Nurse Name: Portia Baires RN Position: [facility] RN Member Role: Primary Care Nurse Name: Isidro Valle RN Position: [facility] RN Supv Member Role: Primary Care Nurse Name: Leny Shanks RN Position: [facility] RN Supv Member Role: Primary Care Nurse Name: Steph Smith RN Position: [facility] RN Member Role: Primary Care Nurse Name: Casandra Robbins RN Position: [facility] RN Supv Member Role: Primary Care Nurse Name: Maris Crowell RN Position: [facility] RN Member Role: Primary Care Nurse Name: Coni Romero LPN Position: [facility] RN Member Role: Primary Care Nurse Name: Abigail Rabago RN Position: [facility] RN Member Role: Primary Care Nurse Name: Halina Burger RN Position: [facility] Onco RN Member Role: Primary Care Nurse Name: Linda Lockwood RN Position: [facility] Exhaust Worker Member Role: Primary Care Nurse Name: Ana Milian RN Position: [facility] RN Supv Member Role: Primary Care Nurse Name: Dedra Chatman RN, I Position: [facility] RN Member Role: Primary Care Nurse Name: David Oquendo RN Position: [facility] RN Supv Member Role: Primary Care Nurse Care Team Related Persons Name: JACKIE ALANIZ Address: [address] [place] [address] Name: TRINA JUNO Address: home [address] [place] [address] Name: JOVITA GALARZA Address: home [address] [place] [address] Name: KARL GALARZA Address: [place] [address] Name: EZEKIEL GALARZA Address: home [address] [place] [address] Name: SHAD TUBBS Address: home [address] [place] [address]
--- OUTSIDE RECORDS SUMMARY | 2022-12-14 05:56 | XMS_ITS | Continuity of Care Document ---
Author Name Unknown Organization [facility] Address [address] [place] [address]- Care Team Providers Care Photolith Operator Name Role Phone Lesia Cuevas MD Primary Care Physician Encounter [facility] Date(s): 05/16/22 - 06/15/[address] [address]- Attending Physician: Jamaica Aguero Admitting Physician: Jamaica [...] Comment: normal saline diluent added lot number [id number] expires 07/23/2022 2Result Comment: Afluria Medications allopurinol 100 mg oral tablet 100 mg, 1, tablet, By Mouth, Daily, # 90 tablet, Refills 1, Tot. Refills 1, Maintenance, 10/24/21 13:18:00 EDT, Route to Pharmacy Electronically, [facility]/pharmacy #[id number], Partial fill upon patient requestif the prescription is for a schedule II opioid lynn... Start Date: 10/24/21 Status: Ordered clindamycin 1% topical lotion 1 application, Topically, 2 times a day, apply to L armpit lesions/bumps twice per day until healed, # 60 mL, 0 Refills, Maintenance, 10/24/21 15:35:00 EDT, Lotion, [facility]/pharmacy #[id number], Partial fill upon patient request if the prescription is for a amado... Start Date: 10/24/21 Status: Ordered Daily Lazara oral tablet 1 tablet, By Mouth, Daily Start Date: 07/03/21 Status: Ordered diphenhydrAMINE 25 mg oral capsule 1 capsule, By Mouth, 3 times a day, PRN NEEDED FOR ITCHING, # 90 capsule, 2 Refills, Maintenance, 05/14/22 15:26:00 EDT, [id number], 163, cm, 05/12/22 16:01:00 EDT, Height, 61.5, kg, 05/10/2316:29:00 EDT, Dry Weight Start Date: 05/14/22 Status: Ordered Estrace Vaginal Cream 0.1 mg/g = 1 Gm, Vaginally, Daily at bedtime, # 90 Gm, 3 Refills, Maintenance, 12/06/21 14:57:00 EDT, [facility]/pharmacy #[id number], Partial fill upon patient request if the prescription is for a schedule II opioid drug., 160, cm, 12/06/21 14:22:00 EDT, Height, 72.9, kg,... Start Date: 12/06/21 Status: Ordered Eucerin Plus topical lotion 1 application, Topically, 2 times a day, PRN for dry skin, # 180 mL, 0 Refills, Maintenance, 03/12/22 16:28:00 EST, Lotion, [facility]/pharmacy #[id number], Partial fill upon patient request if the prescription is for a schedule II opioid drug., 1 application Topi... Start Date: 03/12/22 Status: Ordered folic acid 1 mg oral tablet 1 mg, 1, tablet, By Mouth, Daily, # 30 tablet, Refills 0, Tot. Refills 0, Maintenance, 05/12/22 15:17:00 EDT, Route to Pharmacy Electronically, [facility]/pharmacy #[id number], Partial fill upon patient request if the prescription is for a schedule II opioid drug.... Start Date: 05/12/22 Status: Ordered gabapentin 300 mg oral capsule 300 mg, 1, capsule, By Mouth, 3 times a day, # 90 capsule, Refills 0, Tot. Refills 0, Maintenance, 10/24/21 12:29:00 EDT, Route to Pharmacy Electronically, [facility]/pharmacy #[id number], Partial fill upon [...] 5 Refills, Maintenance, 10/24/21 12:29:00 EDT, Tablet, [facility]/pharmacy #[id number], Partial fill upon patient request if the prescription is for a schedule II opioid drug., 160,... Start Date: 10/24/21 Status: Ordered loratadine 10 mg oral tablet 10 mg, 1, tablet, By Mouth, Daily, # 90 tablet, Refills 11, Tot. Refills 11, Maintenance, 04/11/22 15:56:00 EST, Route to Pharmacy Electronically, [facility]/pharmacy #[id number], 163, cm, 04/11/22 15:32:00 EST, Height, 60.8, kg, 02/19/22 19:05:00 EST, Dry Weight Start Date: 04/11/22 Status: Ordered MiraLax oral powder for reconstitution = 17 Gm, By Mouth, Daily, dissolve in water before taking, # 255 Gm, 1 Refills, Maintenance, 04/11/22 21:05:00 EST, REC Powder, [facility]/pharmacy #[id number], Partial fill upon patient request if the prescription is for a schedule II opioid drug., 17 Gm By Mouth... Start Date: 04/11/22 Status: Ordered nicotine 4 mg oral transmucosal gum See Instructions, CHEW 1 PIECE EVERY 2 HOURS NEEDED FOR SMOKING CESSATION, # 200 gum, 0 Refills,[id number], 160, cm, 08/01/21 21:18:00 EDT, Height, 72.9, kg, 08/01/21 21:18:00 EDT, Dry Weight Start Date: 08/05/21 Status: Ordered omeprazole 20 mg oral enteric coated capsule 1 capsule = 20 mg, By Mouth, Daily, # 90 capsule, 10 Refills, Maintenance, 10/24/21 12:29:00 EDT, [facility]/pharmacy #[id number], Partial fill upon patient request if the prescription is for a schedule II opioiddrug., 160, cm, 10/24/21 11:46:00 EDT, Height, 72.9... Start Date: 10/24/21 Status: Ordered oxyCODONE 10 mg oral tablet 2 tablet = 20 mg, By Mouth, Every 4 hours, PRN Pain , Moderate, # 84 tablet, 0 Refills, Maintenance, 06/13/22 10:46:00 EDT, Tablet, [facility]/pharmacy #[id number], Partial fill upon patient request if the prescription is for a schedule II opioid drug., 163, cm, 0... Start Date: 06/13/22 Status: Ordered ProAir HFA 90 mcg/inh inhalation aerosol 2 puffs, Inhalation, Every 6 hours Start Date: 07/03/21 Status: Ordered pyridoxine 50 mg oral tablet 50 mg, 1, tablet, By Mouth, Daily, # 30 tablet, Refills 0, Tot. Refills 0, Maintenance, 05/12/22 15:17:00 EDT, Route to Pharmacy Electronically, [facility]/pharmacy #[id number], Partial fill upon patient request if the prescription is for a schedule II opioid drug... Start Date: 05/12/22 Status: Ordered QUEtiapine 25 mg oral tablet 1, tablet, By Mouth, 2 times a day, PRN, # 90 tablet, Refills 0, Tot. Refills 0, Maintenance, NEEDED FOR AGITATION, 01/01/22 10:03:00 EST, Route to Pharmacy Electronically, [facility]/pharmacy #[id number], 160, cm, 10/24/21 [...] 30 days ago entered on: 12/26/20 Sex Note * Event Display: Non BH Lab Results Authored Date: [id number] * Marleny Elliott RN: PERFORM, SIGN, VERIFY Event Display: Case Management Discharge Plan Authored Date: [id number] Patient: JOSE GALARZA Age: 48 years Sex: Female : 1970 Associated Diagnoses: None Author: Marleny Elliott RN Care Management Discharge Call Note Admit date 06/18/2018 Discharge date 06/18/2018 Date of contact 06/23/2018 Diagnosis [facility] Looks like you were recently discharged from the hospital (ED), how are you feeling? Call placed to Pt. [phone] Pt. reported she does not have any questions/concerns about discharge instructions . Pt. confirmed follow up appt. scheduled for 06/30/18 1:00pm. No additional questions/concerns presented. Do you have an appointment already scheduled with your PCP? Yes Appointment scheduled? Date 06/30/2018 Patient Care team information Care Team Personnel Name: Indiana Zuleta Position: [facility] RN Member Role: Primary Care Nurse Name: Naila Hinds RN Position: [facility] RN Member Role: Primary Care Nurse Name: Marisa Rosario RN Position: [facility] RN Member Role: Primary Care Nurse Name: Carmen Hdez RN Position: [facility] ED RN W/OE and Tasks Member Role: Primary Care Nurse Name: Jordon Cruz RN Position: [facility] ED RN W/OE and Tasks Member Role: Primary Care Nurse Name: Daisy Rushing RN Position: [facility] RN Member Role: Primary Care Nurse Name: Corinna Fajardo RN Position: [facility] PCO RN Member Role: Primary Care Nurse Name: Constanza RNIra Position: [facility] ED RN W/OE and Tasks Member Role: Primary Care Nurse Name: Melisa RNEstefany Position: [facility] RN Member Role: Primary Care Nurse Name: Idania More RN Position: [facility] RN Member Role: Primary Care Nurse Name: Poala Rinaldi RN Position: [facility] RN Supv Member Role: Primary Care Nurse Name: Lian Joy RN Position: [facility] RN Member Role: Primary Care Nurse Name: Nikkie Sommers RN Position: [facility] RN Supv Member Role: Primary Care Nurse Name: Jordan ASSISTANT PROFESSOR OF NURSINGJasmine Position: [facility] Associate Professional Member Role: Primary Care Nurse Address: Address: [address] [place] [id number]- Name: Rivka Cook RN Position: [facility] RN Member Role: Primary Care Nurse Name: Daisy Brower RN Position: [facility] RN Member Role: Primary Care Nurse Name: Kimberly Skinner RN Position: [facility] RN Member Role: Primary Care Nurse Name: Abhishek Johnson RN Position: [facility] RN Member Role: Primary Care Nurse Name: Lesia Cuevas MD Position: [facility] Resident Member Role: PCP Address: Address: [address] [place] [address]- Name: Rene Pham RN Position: [facility] RN Member Role: Primary Care Nurse Name: Barbara Rae RN Position: [facility] RN Member Role: Primary Care Nurse Name: Ina Renee RN Position: [facility] RN Member Role: Primary Care Nurse Name: Chel Torres RN Position: [facility] RN Member Role: Primary Care Nurse Name: Yesica Delong RN Position: [facility] ED RN W/OE and Tasks Member Role: Primary Care Nurse Name: Vy Rogers RN Position: [facility] RN Member Role: Primary Care Nurse Name: Paula Earl RN Position: [facility] RN Member Role: Primary Care Nurse Name: Susan Miller RN Position: [facility] SN RN Member Role: Primary Care Nurse Name: Silva Colin RN Position: [facility] RN Supv Member Role: Primary Care Nurse Name: Pao Key Position: [facility] RN Member Role: Primary Care Nurse Name: Maris Trevino RN Position: [facility] ED RN W/OE and Tasks Member Role: Primary Care Nurse Name: Steph Gordillo RN Position: [facility] OB RN Member Role: Primary Care Nurse Name: Rene Ramos DO Position: [facility] Renal MD Member Role: Lifetime Consulting Physician Address: Address: [address] [place], [place] [address] [address] Name: Ryder Matthews Position: [facility] RN Member Role: Primary Care Nurse Name: Mary Correia RN Position: [facility] ED RN W/OE and Tasks Member Role: Primary Care Nurse Name: Tierra Razo RN Position: [facility] RN Member Role: Primary Care Nurse Name: Librado Saucedo RN Position: [facility] RN Member Role: Primary Care Nurse Name: Laron Davenport III, RN Position: [facility] RN Member Role: Primary Care Nurse Name: Danya Govea RN Position: [facility] RN Member Role: Primary Care Nurse Name: Idania Millard RN Position: [facility] RN Member Role: Primary Care Nurse Name: Blake Grant RN Position: [facility] SN RN Member Role: Primary Care Nurse Name: Mariella Ojeda RN Position: [facility] RN Member Role: Primary Care Nurse Name: Ana Do RN Position: [facility] RN Member Role: Primary Care Nurse Name: Yaquelin Dawkins RN Position: [facility] RN Member Role: Primary Care Nurse Name: Cari Khan RN Position: [facility] RN Member Role: Primary Care Nurse Name: Dequan Elliott RN Position: [facility] SN RN Member Role: Primary Care Nurse Name: Esmer Rankin RN Position: [facility] PCO RN Member Role: Primary Care Nurse Name: Juno Torres RN Position: [facility] Onco RN Member Role: Primary Care Nurse Name: Yojana Dior RN Position: [facility] RN Member Role: Primary Care Nurse Name: Farideh Balderas RN Position: [facility] Hospital Slicing Machine Tender Member Role: Primary Care Nurse Name: Roxana Ann RN Position: [facility] RN Member Role: Primary Care Nurse Name: Vanessa Shelton RN Position: [facility] RN Member Role: Primary Care Nurse Name: Derick Calixto RN Position: [facility] RN Member Role: Primary Care Nurse Name: Fariba Bradley RN Position: [facility] RN Member Role: Primary Care Nurse Name: Fariba Ornelas RN Position: [facility] ED RN W/OE and Tasks Member Role: Primary Care Nurse Name: Steph Tierney RN Position: [facility] RN Member Role: Primary Care Nurse Name: Portia Baires RN Position: [facility] RN Member Role: Primary Care Nurse Name: Isidro Valle RN Position: [facility] RN Supv Member Role: Primary Care Nurse Name: Leny Shanks RN Position: [facility] RN Supv Member Role: Primary Care Nurse Name: Steph Smith RN Position: [facility] RN Member Role: Primary Care Nurse Name: Casandra Robbins RN Position: [facility] RN Supv Member Role: Primary Care Nurse Name: Maris Crowell RN Position: [facility] RN Member Role: Primary Care Nurse Name: Coni Romero LPN Position: [facility] RN Member Role: Primary Care Nurse Name: Abigail Rabago RN Position: [facility] RN Member Role: Primary Care Nurse Name: Halina Burger RN Position: [facility] Onco RN Member Role: Primary Care Nurse Name: Linda Lockwood RN Position: [facility] Slicing Machine Tender Member Role: Primary Care Nurse Name: Dedra Chatman RN, I Position: [facility] RN Member Role: Primary Care Nurse Care Team Related Persons Name: JACKIE ALANIZ Address: [address] [place] [address] Name: JUNO MENA Address: [address] [place] [address] Name: JOVITA GALARZA Address: home [address] [place] [address] Name: KARL GALARZA Address: [address] [address] Name: EZEKIEL GALARZA Address: [address] [address] Name: MICHAEL BARRETT Address: [address] [address] Name: SHAD TUBBS Address: [address] [address]
--- OUTSIDE RECORDS SUMMARY | 2022-12-14 05:56 | XMS_ITS | Continuity of Care Document ---
Author Name Unknown Organization [facility] Address [address] [place] [address]- Care Team Providers Care Stucco Plasterer Name Role Phone Lesia Cuevas MD Primary Care Physician Encounter [facility] Date(s): 11/06/21 - 01/16/[address] [address]- Attending Physician: Joyce Ireland MD Admitting Physician: Joyce Ireland MD Referring Physician: Lesia Cuevas MD Allergies, [...] Comment: normal saline diluent added lot number [id number] expires 07/23/2022 2Result Comment: Afluria Medications allopurinol 100 mg oral tablet 100 mg, 1, tablet, By Mouth, Daily, # 90 tablet, Refills 1, Tot. Refills 1, Maintenance, 10/24/21 13:18:00 EDT, Route to Pharmacy Electronically, [facility]/pharmacy #[id number], Partial fill upon patient requestif the prescription is for a schedule II opioid lynn... Start Date: 10/24/21 Status: Ordered clindamycin 1% topical lotion 1 application, Topically, 2 times a day, apply to L armpit lesions/bumps twice per day until healed, # 60 mL, 0 Refills, Maintenance, 10/24/21 15:35:00 EDT, Lotion, [facility]/pharmacy #[id number], Partial fill upon patient request if the prescription is for a amado... Start Date: 10/24/21 Status: Ordered Daily Lazara oral tablet 1 tablet, By Mouth, Daily Start Date: 07/03/21 Status: Ordered diphenhydrAMINE 25 mg oral capsule 1 capsule, By Mouth, 3 times a day, PRN NEEDED FOR ITCHING, # 100 capsule, 1 Refills, Maintenance, 10/24/21 12:29:00 EDT, [facility]/pharmacy #[id number], 160, cm, 10/24/21 11:46:00 EDT, Height, 72.9, kg, 08/01/21 21:18:00 EDT, Dry Weight Start Date: 10/24/21 Status: Ordered Eliquis 5 mg oral tablet 1 tablet = 5 mg, By Mouth, 2 times a day, # 60 tablet, 0 Refills, Maintenance, 10/24/21 12:29:00 EDT, Tablet, [facility]/pharmacy #[id number], Partial fill upon patient request if the prescription is for a schedule II opioid drug., 160, cm, 10/24/21 11:46:00 EDT,... Start Date: 10/24/21 Status: Ordered Estrace Vaginal Cream 0.1 mg/g = 1 Gm, Vaginally, Daily at bedtime, # 90 Gm, 3 Refills, Maintenance, 12/06/21 14:57:00 EDT, [facility]/pharmacy #[id number], Partial fill upon patient request if the prescription is for a schedule II opioid drug., 160, cm, 12/06/21 14:22:00 EDT, Height, 72.9, kg,... Start Date: 12/06/21 Status: Ordered gabapentin 300 mg oral capsule 300 mg, 1, capsule, By Mouth, 3 times a day, # 90 capsule, Refills 0, Tot. Refills 0, Maintenance, 10/24/21 12:29:00 EDT, Route to Pharmacy Electronically, [facility]/pharmacy #[id number], Partial fill upon patient request [...] Refills, Maintenance, 10/24/21 12:29:00 EDT, Tablet, [facility]/pharmacy #[id number], Partial fill upon patient request if the prescription is for a schedule II opioid drug., 160,... Start Date: 10/24/21 Status: Ordered loratadine 10 mg oral tablet 10 mg, 1, tablet, By Mouth, Daily, # 90 tablet, Refills 11, Tot. Refills 11, Maintenance, 08/29/21 16:56:00 EDT, Route to Pharmacy Electronically, [facility]/pharmacy #[id number], Partial fill upon patient request if the prescription is for a schedule II opioid dr... Start Date: 08/29/21 Status: Ordered LORazepam 1 mg oral tablet 1 tablet = 1 mg, By Mouth, 2 times a day, PRN as needed for anxiety, Limited Rx. Please contact at [facility] if ongoing need., # 5 tablet, 0 Refills, Maintenance, 10/15/21 16:13:00 EDT, Tablet, [facility]/pharmacy #1... Start Date: 10/15/21 Status: Ordered nicotine 4 mg oral transmucosal gum See Instructions, CHEW 1 PIECE EVERY 2 HOURS NEEDED FOR SMOKING CESSATION, # 200 gum, 0 Refills,[id number], 160, cm, 08/01/21 21:18:00 EDT, Height, 72.9, kg, 08/01/21 21:18:00 EDT, Dry Weight Start Date: 08/05/21 Status: Ordered omeprazole 20 mg oral enteric coated capsule 1 capsule = 20 mg, By Mouth, Daily, # 90 capsule, 10 Refills, Maintenance, 10/24/21 12:29:00 EDT, [facility]/pharmacy #[id number], Partial fill upon patient request if the prescription is for a schedule II opioiddrug., 160, cm, 10/24/21 11:46:00 EDT, Height, 72.9... Start Date: 10/24/21 Status: Ordered oxyCODONE 10 mg oral tablet 2 tablet = 20 mg, By Mouth, Every 4 hours, PRN Pain , Moderate, # 84 tablet, 0 Refills, Maintenance, 01/14/22 16:08:00 EST, Tablet, [facility]/pharmacy #[id number], Partial fill upon patient request if the prescription is for a schedule II opioid drug., 160, cm, 1... Start Date: 01/14/22 Status: Ordered ProAir HFA 90 mcg/inh inhalation aerosol 2 puffs, Inhalation, Every 6 hours Start Date: 07/03/21 Status: Ordered QUEtiapine 25 mg oral tablet 1, tablet, By Mouth, 2 times a day, PRN, # 90 tablet, Refills 0, Tot. Refills 0, Maintenance, NEEDED FOR AGITATION, 01/01/22 10:03:00 EST, Route to Pharmacy Electronically, [facility]/pharmacy #[id number], 160, cm, 10/24/21 11:46:00 EDT, [...] Care Nurse Name: Naila Hinds RN Position: [facility] RN Member Role: Primary Care Nurse Name: Marisa Rosario RN Position: [facility] RN Member Role: Primary Care Nurse Name: Carmen Hdez RN Position: [facility] ED RN W/OE and Tasks Member Role: Primary Care Nurse Name: Jordon Cruz RN Position: [facility] ED RN W/OE and Tasks Member Role: Primary Care Nurse Name: Daisy Rushing RN Position: [facility] RN Member Role: Primary Care Nurse Name: Taran Caldera RN Position: [facility] RN Member Role: Primary Care Nurse Name: Corinna Fajardo RN Position: [facility] PCO RN Member Role: Primary Care Nurse Name: Ira Apodaca RN Position: [facility] ED RN W/OE and Tasks Member Role: Primary Care Nurse Name: Estefany Vincent RN Position: [facility] RN Member Role: Primary Care Nurse Name: Idania More RN Position: [facility] RN Member Role: Primary Care Nurse Name: Jessica Schmidt RN Position: [facility] RN Member Role: Primary Care Nurse Name: Paola Rinaldi RN Position: [facility] RN Supv Member Role: Primary Care Nurse Name: Lian Joy RN Position: [facility] RN Member Role: Primary Care Nurse Name: Nikkie Sommers RN Position: [facility] RN Supv Member Role: Primary Care Nurse Name: Jasmine Ortega NP Position: [facility] Associate Professional Member Role: Primary Care Nurse Address: Address: [address] [place] [address]- Name: Rivka Cook RN Position: [facility] RN Member Role: Primary Care Nurse Name: Daisy Brower RN Position: [facility] RN Member Role: Primary Care Nurse Name: Kimberly Skinner RN Position: [facility] RN Member Role: Primary Care Nurse Name: Abhishek Johnson RN Position: [facility] RN Member Role: Primary Care Nurse Name: Lesia Cuevas MD Position: [facility] Resident Member Role: PCP Address: Address: [address] [place] [address]- [place] Name: Rene Pham RN Position: [facility] RN Member Role: Primary Care Nurse Name: Barbara Rae RN Position: [facility] RN Member Role: Primary Care Nurse Name: Ina Renee RN Position: [facility] RN Member Role: Primary Care Nurse Name: Yesica Delong RN Position: [facility] ED RN W/OE and Tasks Member Role: Primary Care Nurse Name: Vy Rogers RN Position: [facility] RN Member Role: Primary Care Nurse Name: Paula Earl RN Position: [facility] RN Member Role: Primary Care Nurse Name: Susan Miller RN Position: [facility] SN RN Member Role: Primary Care Nurse Name: Silva Colin RN Position: [facility] RN Supv Member Role: Primary Care Nurse Name: Pao Key Position: [facility] RN Member Role: Primary Care Nurse Name: Maris Trevino RN Position: [facility] ED RN W/OE and Tasks Member Role: Primary Care Nurse Name: Steph Gordillo RN Position: [facility] OB RN Member Role: Primary Care Nurse Name: Rene Ramos DO Position: [facility] Renal MD Member Role: Lifetime Consulting Physician Address: Address: [address] [place] [address] [facility] [place], [place] [address] Name: Ryder Matthews Position: [facility] RN Member Role: Primary Care Nurse Name: Mary Correia RN Position: [facility] ED RN W/OE and Tasks Member Role: Primary Care Nurse Name: Tierra Razo RN Position: [facility] RN Member Role: Primary Care Nurse Name: Librado Saucedo RN Position: [facility] RN Member Role: Primary Care Nurse Name: Laron Davenport III, RN Position: [facility] RN Member Role: Primary Care Nurse Name: Danya Govea RN Position: [facility] RN Member Role: Primary Care Nurse Name: Idania Millard RN Position: [facility] RN Member Role: Primary Care Nurse Name: Kamila Morris RN Position: [facility] RN Member Role: Primary Care Nurse Name: Blake Grant RN Position: [facility] SN RN Member Role: Primary Care Nurse Name: Mariella Ojeda RN Position: [facility] RN Member Role: Primary Care Nurse Name: Portia Moctezuma RN Position: [facility] RN Member Role: Primary Care Nurse Name: Libia Berry RN Position: [facility] RN Member Role: Primary Care Nurse Name: Ana Do RN Position: [facility] RN Member Role: Primary Care Nurse Name: Yaquelin Dawkins RN Position: [facility] RN Member Role: Primary Care Nurse Name: Cari Khan RN Position: [facility] RN Member Role: Primary Care Nurse Name: Dequan Elliott RN Position: [facility] SN RN Member Role: Primary Care Nurse Name: Esmer Rankin RN Position: [facility] PCO RN Member Role: Primary Care Nurse Name: Suzanna Timmons RN Position: [facility] RN Member Role: Primary Care Nurse Name: Kaylene Maier RN Position: [facility] RN Supv Member Role: Primary Care Nurse Name: Yojana Dior RN Position: [facility] RN Member Role: Primary Care Nurse Name: Farideh Balderas RN Position: [facility] Assistant Secretary Member Role: Primary Care Nurse Name: Roxana Ann RN Position: [facility] RN Member Role: Primary Care Nurse Name: Derick Calixto RN Position: [facility] RN Member Role: Primary Care Nurse Name: Fariba Ornelas RN Position: [facility] ED RN W/OE and Tasks Member Role: Primary Care Nurse Name: Steph Tierney RN Position: [facility] RN Member Role: Primary Care Nurse Name: Isidro Valle RN Position: [facility] RN Supv Member Role: Primary Care Nurse Name: Leny Shanks RN Position: [facility] RN Supv Member Role: Primary Care Nurse Name: Steph Smith RN Position: [facility] RN Member Role: Primary Care Nurse Name: Casandra Robbins RN Position: [facility] RN Member Role: Primary Care Nurse Name: Maris Crowell RN Position: [facility] RN Member Role: Primary Care Nurse Name: Coni Romero LPN Position: [facility] RN Member Role: Primary Care Nurse Name: Abigail Rabago RN Position: [facility] RN Member Role: Primary Care Nurse Name: Halina Burger RN Position: [facility] Onco RN Member Role: Primary Care Nurse Name: Linda Lockwood RN Position: [facility] Hospital Assistant Secretary Member Role: Primary Care Nurse Name: Ana Milian RN Position: [facility] RN Supv Member Role: Primary Care Nurse Name: Dedra Chatman RN, I Position: [facility] RN Member Role: Primary Care Nurse Name: David Oquendo RN Position: S RN Supv Member Role: Primary Care Nurse Care Team Related Persons Name: JACKIE ALANIZ Address: [address] [place] [address] Name: TRINA JUNO Address: home [address] [place] [address] Name: JOVITA GALARZA Address: home [address] [place] [address] Name: KARL GALARZA Address: [place] [address] Name: EZEKIEL GALARZA Address: home [address] [place] [address] Name: SHAD TUBBS Address: home [address] [place] [id number]
--- OUTSIDE RECORDS SUMMARY | 2022-12-14 05:56 | XMS_ITS | Continuity of Care Document ---
Author Name Unknown Organization [facility] Address [address] [place] [id number]- Care Team Providers Care Heating Operators Engineer Name Role Phone Lesia Cuevas MD Primary Care Physician [place] [facility] [place]): 10/02/22 - 11/01/22 [facility] [address] [place] [id number]- Attending Physician: Jamaica Aguero Admitting Physician: AdmtrJamaica Referring Physician: Admtr, Ar8 Allergies, Adverse Reactions, [...] Comment: normal saline diluent added lot number [id number] expires 07/23/2022 2Result Comment: Afluria Medications allopurinol 100 mg oral tablet 100 mg, 1, tablet, By Mouth, Daily, # 90 tablet, Refills 1, Tot. Refills 1, Maintenance, 10/24/21 13:18:00 EDT, Route to Pharmacy Electronically, [facility]/pharmacy #[id number], Partial fill upon patient requestif the prescription is for a schedule II opioid lynn... Start Date: 10/24/21 Status: Ordered clindamycin 1% topical lotion 1 application, Topically, 2 times a day, apply to L armpit lesions/bumps twice per day until healed, # 60 mL, 0 Refills, Maintenance, 10/24/21 15:35:00 EDT, Lotion, [facility]/pharmacy #[id number], Partial fill upon patient request if the prescription is for a amado... Start Date: 10/24/21 Status: Ordered Daily Lazara oral tablet 1 tablet, By Mouth, Daily Start Date: 07/03/21 Status: Ordered diphenhydrAMINE 25 mg oral capsule 1 capsule, By Mouth, 3 times a day, PRN NEEDED FOR ITCHING, # 90 capsule, 2 Refills, Maintenance, 05/14/22 15:26:00 EDT, [id number], 163, cm, 05/12/22 16:01:00 EDT, Height, 61.5, kg, 05/10/2316:29:00 EDT, Dry Weight Start Date: 05/14/22 Status: Ordered Estrace Vaginal Cream 0.1 mg/g = 1 Gm, Vaginally, Daily at bedtime, # 90 Gm, 3 Refills, Maintenance, 12/06/21 14:57:00 EDT, [facility]/pharmacy #[id number], Partial fill upon patient request if the prescription is for a schedule II opioid drug., 160, cm, 12/06/21 14:22:00 EDT, Height, 72.9, kg,... Start Date: 12/06/21 Status: Ordered Eucerin Plus topical lotion 1 application, Topically, 2 times a day, PRN for dry skin, # 180 mL, 0 Refills, Maintenance, 03/12/22 16:28:00 EST, Lotion, [facility]/pharmacy #[id number], Partial fill upon patient request if the prescription is for a schedule II opioid drug., 1 application Topi... Start Date: 03/12/22 Status: Ordered Flonase 50 mcg/inh nasal spray 1 sprays, Nares, Both, 2 times a day, # 1 each, 6 Refills, Maintenance, 07/08/22 17:26:00 EDT, [place], [id number], Partial fill upon patient request [...] 10/24/21 12:29:00 EDT, [facility] 5 Refills, Maintenance, 10/24/21 12:29:00 EDT, Tablet, [facility]/pharmacy #[id number], Partial [...] 04/11/22 15:56:00 EST, [id number] 163, cm, 04/11/22 15:32:00 EST, Height, 60.8, kg, 02/19/22 19:05:00 EST, Dry Weight Start Date: 04/11/22 Status: Ordered LORazepam 1 mg oral tablet 1 tablet = 1 mg, By Mouth, 2 times a day, PRN as needed for anxiety, for 7 days, # 14 tablet, 0 Refills, Acute 11/05/22 13:27:00 EDT, 10/29/22 13:27:00 EDT, Tablet, [facility]/pharmacy #[id number], Partial fill upon patient request if the prescription is for a amado... Start Date: 10/29/22 Stop Date: 11/05/22 Status: Ordered MiraLax oral powder for reconstitution = 17 Gm, By Mouth, Daily, dissolve in water before taking, # 255 Gm, 1 Refills, Maintenance, 04/11/22 21:05:00 EST, REC Powder, [facility]/pharmacy #[id number], Partial fill upon patient request if the prescription is for a schedule II opioid drug., 17 Gm By Mouth... Start Date: 04/11/22 Status: Ordered nicotine 4 mg oral transmucosal gum See Instructions, CHEW 1 PIECE EVERY 2 HOURS NEEDED FOR SMOKING CESSATION, # 200 gum, 0 Refills,[facility] [id number], 160, cm, 08/01/21 21:18:00 EDT, Height, 72.9, kg, 08/01/21 21:18:00 EDT, Dry Weight Start Date: 08/05/21 Status: Ordered omeprazole 20 mg oral enteric coated capsule 1 capsule = 20 mg, By Mouth, Daily, # 90 capsule, 10 Refills, Maintenance, 10/24/21 12:29:00 EDT, [facility]/pharmacy #[id number], Partial fill upon patient request if the prescription is for a schedule II opioiddrug., 160, cm, 10/24/21 11:46:00 EDT, Height, 72.9... Start Date: 10/24/21 Status: Ordered oxyCODONE 10 mg oral tablet 2 tablet = 20 mg, By Mouth, Every 4 hours, PRN as needed for pain, # 84 tablet, 0 Refills, Maintenance, 10/30/22 11:21:00 EDT, Tablet, [facility]/pharmacy #1026, Partial fill upon patient request if the prescription is for a schedule II opioid drug., 163, cm... Start Date: 10/30/22 Stop Date: 11/06/22 Status: Ordered oxyCODONE 5 mg oral tablet 20 mg, 4, tablet, By Mouth, Every 4 hours, PRN, # 168 tablet, Refills 0, Tot. Refills 0, Maintenance, Pain , Severe, 07/18/22 12:19:00 EDT, Route to Pharmacy Electronically, [facility]/pharmacy #[id number], Scripfor 5 mg tabs sent as [...] 15:17:00 EDT, Route to Pharmacy Electronically, [facility]/pharmacy #[id number], Partial fill upon patient request if the prescription is for a schedule II opioid drug... Start Date: 05/12/22 Status: Ordered QUEtiapine 25 mg oral tablet 1, tablet, By Mouth, 2 times a day, PRN, # 90 tablet, Refills 0, Tot. Refills 0, Maintenance, NEEDED FOR AGITATION, 01/01/22 10:03:00 EST, Route to Pharmacy Electronically, [facility]/pharmacy #[id number], 160, cm, 10/24/21 11:46:00 EDT, Height, 72.9, kg, 08/01... Start Date: 01/01/22 Status: Ordered sodium zirconium cyclosilicate 10 g oral powder for reconstitution = 5 Gm, By Mouth, Every Thursday and , # 30 each, 0 Refills, Maintenance, 02/24/22 10:38:00 EST, [facility]/pharmacy #[id number], Partial fill upon [...] Care Team Personnel Name: Indiana Zuleta Position: [facility] Onco RN Member Role: Primary Care Nurse Name: Naila Hinds RN Position: [facility] RN Member Role: Primary Care Nurse Name: Marisa Rosario RN Position: [facility] RN Member Role: Primary Care Nurse Name: Carmen Hdez RN Position: [facility] ED RN W/OE and Tasks Member Role: Primary Care Nurse Name: Jordon Cruz RN Position: [facility] ED RN W/OE and Tasks Member Role: Primary Care Nurse Name: Daisy Rushing RN Position: [facility] RN Member Role: Primary Care Nurse Name: Corinna Fajardo RN Position: [facility] AMB Nurse Member Role: Primary Care Nurse Name: Ira Apodaca RN Position: [facility] ED RN W/OE and Tasks Member Role: Primary Care Nurse Name: Estefany Vincent RN Position: [facility] RN Member Role: Primary Care Nurse Name: Idania More RN Position: [facility] RN Member Role: Primary Care Nurse Name: Paola Rinaldi RN Position: [facility] RN Supv Member Role: Primary Care Nurse Name: Lian Joy RN Position: [facility] RN Member Role: Primary Care Nurse Name: Nikkie Sommers RN Position: [facility] RN Supv Member Role: Primary Care Nurse Name: Jasmine Ortega NP Position: [facility] Associate Professional Member Role: Primary Care Nurse Address: Address: [address] [place] [phone]- Name: Rivka Cook RN Position: [facility] RN Member Role: Primary Care Nurse Name: Daisy Brower RN Position: [facility] RN Member Role: Primary Care Nurse Name: Kimberly Skinner RN Position: [facility] RN Member Role: Primary Care Nurse Name: Abhishek Johnson RN Position: [facility] RN Member Role: Primary Care Nurse Name: Lesia Cuevas MD Position: [facility] Resident Member Role: PCP Address: Address: [address] [place] [id number]- Name: Barbara Rae RN Position: [facility] AMB Nurse Member Role: Primary Care Nurse Name: Ina Renee RN Position: [facility] RN Member Role: Primary Care Nurse Name: Yesica Delong RN Position: [facility] ED RN W/OE and Tasks Member Role: Primary Care Nurse Name: Paula Earl RN Position: [facility] RN Member Role: Primary Care Nurse Name: Susan Miller RN Position: [facility] ED RN W/OE and Tasks Member Role: Primary Care Nurse Name: Pao Key Position: [facility] RN Member Role: Primary Care Nurse Name: Maris Trevino RN Position: [facility] ED RN W/OE and Tasks Member Role: Primary Care Nurse Name: Steph Gordillo RN Position: [facility] OB RN Member Role: Primary Care Nurse Name: Rene Ramos DO Position: [facility] Renal MD Member Role: Lifetime Consulting Physician Address: Address: [address] [place], [place] [address] [place] [address]- Name: Ryder Matthews Position: [facility] RN Member Role: Primary Care Nurse Name: Mary Correia RN Position: [facility] ED RN W/OE and Tasks Member Role: Primary Care Nurse Name: Tierra Razo RN Position: [facility] RN Member Role: Primary Care Nurse Name: Librado Saucedo RN Position: [facility] RN Member Role: Primary Care Nurse Name: Laron Davenport III, RN Position: [facility] RN Member Role: Primary Care Nurse Name: Danya Govea RN Position: [facility] RN Member Role: Primary Care Nurse Name: Idania Millard RN Position: [facility] RN Member Role: Primary Care Nurse Name: Blake Grant RN Position: [facility] RN Member Role: Primary Care Nurse Name: Mariella Ojeda RN Position: [facility] RN Member Role: Primary Care Nurse Name: Ana Do RN Position: [facility] RN Member Role: Primary Care Nurse Name: Yaquelin Dawkins RN Position: [facility] RN Member Role: Primary Care Nurse Name: Cari Khan RN Position: [facility] RN Member Role: Primary Care Nurse Name: Dequan Elliott RN Position: [facility] SN RN Member Role: Primary Care Nurse Name: Esmer Rankin RN Position: [facility] AMB Nurse Member Role: Primary Care Nurse Name: Suzanna Timmons RN Position: [facility] SN RN Member Role: Primary Care Nurse Name: Juno Torres RN Position: [facility] Onco RN Member Role: Primary Care Nurse Name: Yojana Dior RN Position: [facility] RN Member Role: Primary Care Nurse Name: Farideh Balderas RN Position: [facility] Splicer Operator Member Role: Primary Care Nurse Name: Roxana Ann RN Position: [facility] RN Member Role: Primary Care Nurse Name: Vanessa Shelton RN Position: [facility] RN Member Role: Primary Care Nurse Name: Derick Calixto RN Position: [facility] RN Member Role: Primary Care Nurse Name: Fariba Bradley RN Position: [facility] RN Member Role: Primary Care Nurse Name: Fariba Ornelas RN Position: [facility] ED RN W/OE and Tasks Member Role: Primary Care Nurse Name: Steph Tierney RN Position: [facility] RN Member Role: Primary Care Nurse Name: Portia Baires RN Position: [facility] SN RN Member Role: Primary Care Nurse Name: Leny Shanks RN Position: [facility] RN Supv Member Role: Primary Care Nurse Name: Steph Smith RN Position: [facility] RN Member Role: Primary Care Nurse Name: Casandra Robbins RN Position: [facility] RN Supv Member Role: Primary Care Nurse Name: Maris Crowell RN Position: [facility] RN Member Role: Primary Care Nurse Name: Coni Romero LPN Position: [facility] RN Member Role: Primary Care Nurse Name: Abigail Rabago RN Position: [facility] RN Member Role: Primary Care Nurse Name: Halina Burger RN Position: [facility] Onco RN Member Role: Primary Care Nurse Name: Linda Lockwood RN Position: [facility] Splicer Operator Member Role: Primary Care Nurse Name: Dedra Chatman RN, I Position: [facility] RN Member Role: Primary Care Nurse Name: David Oquendo RN Position: [facility] RN Member Role: Primary Care Nurse Care Team Related Persons Name: JACKIE ALANIZ Address: [address] [place] [address] Name: JUNO MENA Address: home [address] [place] [address] Name: JOVITA GALARZA Address: home [address] [place] [address] Name: KARL GALARZA Address: home [address] [place] [address] Name: EZEKIEL GALARZA Address: [address] [place] [address] Name: MICHAEL BARRETT Address: home [address] [place] [address] Name: SHAD TUBBS Address: home [address] [place] [id number]
--- OUTSIDE RECORDS SUMMARY | 2022-12-14 05:57 | XMS_ITS | Continuity of Care Document ---
Author Name Unknown Organization [facility] Address [address] [place] [id number] Care Team Providers Care Guest Services Attendant Name Role Phone Lesia Cuevas MD Primary Care Physician Encounter [facility] Date(s): 02/18/22 - 02/24/[address] [address]- Encounter Diagnosis Sickle cell pain crisis(Final) - 02/18/22 Discharge Disposition: A-D/C Home Attending Physician: Christina Parish MD Admitting Physician: Richard Roa DO Referring Physician: Not on Staff, Referring [...] Comment: normal saline diluent added lot number [id number] expires 07/23/2022 2Result Comment: Afluria Medications allopurinol 100 mg oral tablet 100 mg, 1, tablet, By Mouth, Daily, # 90 tablet, Refills 1, Tot. Refills 1, Maintenance, 10/24/21 13:18:00 EDT, Route to Pharmacy Electronically, [facility]/pharmacy #[id number], Partial fill upon patient requestif the prescription is for a schedule II opioid lynn... Start Date: 10/24/21 Status: Ordered clindamycin 1% topical lotion 1 application, Topically, 2 times a day, apply to L armpit lesions/bumps twice per day until healed, # 60 mL, 0 Refills, Maintenance, 10/24/21 15:35:00 EDT, Lotion, [facility]/pharmacy #[id number], Partial fill upon patient request if the prescription is for a amado... Start Date: 10/24/21 Status: Ordered Daily Lazara oral tablet 1 tablet, By Mouth, Daily Start Date: 07/03/21 Status: Ordered Dilaudid Inj 2 mg, Injection, IV Push Slowly, Every 4 hours, PRN for Pain , Severe, Routine, 02/20/22 9:39:00 EST Start Date: 02/20/22 Stop Date: 02/24/22 Status: Discontinued diphenhydrAMINE 25 mg oral capsule 1 capsule, By Mouth, 3 times a day, PRN NEEDED FOR ITCHING, # 100 capsule, 1 Refills, Maintenance, 10/24/21 12:29:00 EDT, [facility]/pharmacy #[id number], 160, cm, 10/24/21 11:46:00 EDT, Height, [...] 12:29:00 EDT, Route to Pharmacy Electronically, [facility]/pharmacy #[id number], Partial fill upon patient request if [...] 5 Refills, Maintenance, 10/24/21 12:29:00 EDT, Tablet, [facility]/pharmacy #[id number], Partial fill upon patient request if the prescription is for a schedule II opioid drug., 160,... Start Date: 10/24/21 Status: Ordered loratadine 10 mg oral tablet 10 mg, 1, tablet, By Mouth, Daily, # 90 tablet, Refills 11, Tot. Refills 11, Maintenance, 08/29/21 16:56:00 EDT, Route to Pharmacy Electronically, [facility]/pharmacy #[id number], Partial fill upon patient request if the prescription is for a schedule II opioid dr... Start Date: 08/29/21 Status: Ordered nicotine 4 mg oral transmucosal gum See Instructions, CHEW 1 PIECE EVERY 2 HOURS NEEDED FOR SMOKING CESSATION, # 200 gum, 0 Refills,[id number], 160, cm, 08/01/21 21:18:00 EDT, Height, 72.9, kg, 08/01/21 21:18:00 EDT, Dry Weight Start Date: 08/05/21 Status: Ordered omeprazole 20 mg oral enteric coated capsule 1 capsule = 20 mg, By Mouth, Daily, # 90 capsule, 10 Refills, Maintenance, 10/24/21 12:29:00 EDT, [facility]/pharmacy #[id number], Partial fill upon patient request if the prescription is for a schedule II opioiddrug., 160, cm, 10/24/21 11:46:00 EDT, Height, 72.9... Start Date: 10/24/21 Status: Ordered oxyCODONE 10 mg oral tablet 2 tablet = 20 mg, By Mouth, Every 4 hours, PRN Pain , Moderate, # 84 tablet, 0 Refills, Maintenance, 02/21/22 13:23:00 EST, Tablet, [facility]/pharmacy #[id number], Partial fill upon patient request if the prescription is for a schedule II opioid drug., 163, cm, 1... Start Date: 02/21/22 Status: Ordered oxyCODONE 5 mg oral tablet 20 mg, Tablet, By Mouth, Every 4 hours, PRN for Pain , Severe, Routine, 02/19/22 14:22:00 EST Start Date: 02/19/22 Stop Date: 02/24/22 Status: Discontinued ProAir HFA 90 mcg/inh inhalation aerosol 2 puffs, Inhalation, Every 6 hours Start Date: 07/03/21 Status: Ordered QUEtiapine 25 mg oral tablet 1, tablet, By Mouth, 2 times a day, PRN, # 90 tablet, Refills 0, Tot. Refills 0, Maintenance, NEEDED FOR AGITATION, 01/01/22 10:03:00 EST, Route to Pharmacy Electronically, [facility]/pharmacy #[id number], 160, cm, 10/24/21 11:46:00 EDT, Height, 72.9, kg, 08/01... Start Date: 01/01/22 Status: Ordered sodium zirconium cyclosilicate 10 g oral powder for reconstitution = 5 Gm, By Mouth, Every Thursday and , # 30 each, 0 Refills, Maintenance, 02/24/22 10:38:00 EST, [facility]/pharmacy #[id number], Partial fill upon patient request if [...] Exam Date Time Procedure Performing Provider Status 02/18/22 10:57 PM Chest Portable Tiffanie Draper ( Verified) Notes: (Chest Portable) Reason For Exam: Shortness of Breath RESULT: Chest Portable Chest Portable Hx of Present Illness: pt with sickle cell cisis and given 6mg of dilaudid, pt endorsed respiratorydepressionj needing to be on 8L oxymask. Pt currently weaned down to 5L NC which is pts baseline; Reason: Shortness of Breath; Clinical Question(s): CHF COMPARISON: X-ray 07/29/2021 FINDINGS: LINES AND TUBES: Right internal jugular Port-A-Cath tip in lower SVC. LUNGS AND PLEURA: Unchanged coarse interstitial opacities with basilar predominance. No focal consolidation or volumeloss. No pleural effusion. No pneumothorax. HEART, MEDIASTINUM AND GARRETT: Heart is normal in size. Normal mediastinal and hilar contour. BONES AND SOFT TISSUES: No acute abnormality. IMPRESSION: Chronic interstitial changes without superimposed pneumonia or effusion. WSN: [id number] Ordering Physician: Abel Griffin Dictated By: Blake Garcia MD Dictated Date/Time: 02/18/22 11:02 p Reviewed By: Blake Garcia MD Signed By: Blake Garcia MD Signed Date/Time: 02/18/22 11:02 pm Transcribed By: PRASHANT Transcribed Date/Time: 02/18/22 11:01 pm Vital Signs Most recent to oldest [Reference Range]: 1 2 3 Height 163 cm (02/24/22 12:27 PM) 163 cm (02/20/22 3:53 PM) 163 cm (02/20/22 8:08 AM) Weight 64.5 kg (02/20/22 6:00 PM) 60.8 kg (02/19/22 7:05 PM) 60.8 kg (02/19/22 6:05 PM) Oxygen Saturation [94-100 %] 95 % (02/24/22 12:27 PM) 100 % (02/24/22 6:00 AM) 100 % (02/24/22 4:00 AM) Pulse Rate [55-90 bpm] 112 bpm *H* (02/24/22 12:27 PM) 88 bpm (02/24/22 6:00 AM) 18 bpm *L* (02/24/22 4:00 AM) Body Mass Index [18.5-24.99 kg/m2] 22.88 kg/m2 (02/19/22 7:05 PM) 22.88 kg/m2 (02/19/22 6:05 PM) Blood Pressure [90-138/55-84 mm Hg] 113/62mm Hg (02/24/22 12:27 PM) 111/66mm Hg (02/24/22 6:00 AM) 109/61mm Hg (02/24/22 4:00 AM) Respiratory Rate [16-30 br/min] 18 br/min (02/24/22 12:27 PM) 16 br/min (02/24/22 11:20 AM) 18 br/min (02/24/22 10:07 AM) Temperature [96.8-100.4 DegF] 99.6 DegF (02/24/22 12:27 PM) 98.7 DegF (02/24/22 6:00 AM) 98.8 DegF (02/24/22 4:00 AM) Liters per Minute 6 L/min (02/24/22 6:00 AM) 6 L/min (02/24/22 4:00 AM) 6 L/min (02/24/22 12:00 AM) Mode of Delivery (Oxygen) Nasal cannula (02/24/22 12:27 PM) Nasal cannula (02/24/22 6:00 AM) Nasal cannula (02/24/22 4:00 AM) Blood pressure sites Arm, left (02/24/22 6:00 AM) Arm, left (02/24/22 4:00 AM) Arm, left (02/24/22 4:00 AM) Temperature Route Oral (02/24/22 12:27 PM) Oral (02/24/22 6:00 AM) Oral (02/24/22 4:00 AM) Dry Weight 60.8 kg (02/19/22 7:05 PM) Weight Obtained Via Bed scale (02/20/22 6:00 PM) Social History Social History Type Response Smoking Status Former smoker, quit more than 30 days ago entered on: 12/26/20 Sex Admission evaluation note * Arline ARCHIBALD, Bruno Velasquez: MODIFY, PERFORM, MODIFY Event Display: Admission Note Authored Date: Patient: ??JOSE VIZCAINO ? Age:??52 Years?Sex:??Female?:??1970?? Chief Complaint/Reason for Consultation Sickle cell pain crisis History of Present Illness 52-year-old??-[place] lady??with past medical history??of sickle cell disease??presented [facility]??from the infusion suite??after she developed hypoxemia??and concerns for??altered mental status.? Her hemoglobin was low??6.8??which is??her baseline.?? Patient's oxygen saturations are??98% on 2 L??oxygen??via nasal cannula.?? Patient complains of??body aches??which are getting better??after the??administration of??analgesics.?? The patient is being admitted to [facility]??for further evaluation and treatment. Review of Systems Constitutional: No fever; pain all over the body??especially the extremities HEENT: No visual loss, blurred vision, double vision or yellow sclera. No runny nose or sore throat. Cardiovascular: Chest pain. No??palpitations or pedal edema. Respiratory: No shortness of breath, cough or sputum production. Gastrointestinal: No nausea, vomiting or diarrhea. No abdominal pain.?? Neurologic: No headache, dizziness, unilateral weakness, numbness or tingling in the extremities. Objective ? Vital Signs?? Temperature: 98.5 DegF (02/19/22 14:24:00) Temperature Route: Oral (02/19/22 14:24:00) Pulse Rate: 87 bpm (02/19/22 14:24:00) Respiratory Rate: 16 br/min (02/19/22 14:39:00) Systolic Blood Pressure: 119 mm Hg (02/19/22 14:24:00) Diastolic Blood Pressure: 80 mm Hg (02/19/22 14:24:00) Blood pressure sites: Arm, left (02/19/22 14:24:00) Mean Arterial Pressure: 70 mm Hg (02/19/22 07:28:00) Pulse Pressure: 39 mm Hg (02/19/22 14:24:00) Oxygen Saturation: 95 % (02/19/22 14:24:00) Liters per Minute: 5 L/min (02/19/22 14:24:00) Mode of Delivery (Oxygen): Nasal cannula (02/19/22 14:24:00) Early Warning Score: 5 (02/19/22 14:39:39) ? Intake/Output? No Data Available ?? Precautions No Precautions documented.? Mobility & Ambulation Level Mobility & Ambulation Level?? No qualifying data available. ? Physical Exam General: Alert Mental Status: Oriented to person, place and time. Head: Normocephalic. Neck: Supple Respiratory: Clear to auscultation and percussion. No wheezing, rales or rhonchi. Cardiovascular: Heart sounds normal. No thrills. Regular rate and rhythm, no murmurs, rubs or gallops. Gastrointestinal: Abdomen soft, non-tender, non-distended. Normal bowel sounds.?? Neurologic: Cranial nerves II-XII grossly intact. No focal neurological deficits. Sensation intact bilaterally. Skin: No rashes or lesions.?? Musculoskeletal: No cyanosis Assessment/Plan Diagnoses Sickle cell anemia ??(D57.1) Sickle cell pain crisis ??(D57.00) ?? Assessment:??52-year-old -Hungarian lady with past medical history of sickle cell disease presented to [facility] from the infusion suite after she developed hypoxemia and concerns for altered mental status. Her hemoglobin was low 6.8 which is her baseline. Patient's oxygen saturationsare 98% on 2 L oxygen via nasal cannula. Patient complains of body aches which are getting better after the administration of analgesics. The patient is being admitted to [facility] for further evaluation and treatment. ? 1.?Sickle cell??pain crisis:?? Patient complains of??increased pains in the extremities Patient was given??IV??opiate medications??and IV fluids We will continue with opiates??for now Patient??still needing oxygen??via nasal cannula We will wean??oxygen??as tolerated Patient is on??IV Dilaudid??and??p.o. oxycodone We will monitor the patient closely??for respiratory depression We will slowly??wean??opiate medications??to the??home medications??before discharge??from the hospital We will order incentive spirometer??for better oxygenation We will give thiamine, folic acid, multivitamin ?? 2.?Anemia/likely??secondary to sickle cell??disease: Patient has a history of sickle cell crisis Hemoglobin is 6.8??which is near her baseline We will monitor hemoglobin closely??and will??transfuse??PRBC??for??further drop in hemoglobin??below 6 We will try to wean??oxygen??as tolerated ? 3.?Hyperkalemia : Mild elevation of K: 5.3 Will??monitor If K still increasing, will treat ? 4.? DVT prophylaxis:??Subcu heparin Diet: Regular diet CODE STATUS: Full code ? I have discussed the above plan with the patient at bedside who is in agreement. ?? Discharge Planning:? Histories Allergies Allergies ?(Active and Proposed Allergies Only) Compazine? (Severity: Unknown severity, Onset: Unknown) ?Reactions: tongue swelling ? Past Medical History/Problem List Active Problems??(5) Anemia Depression Protein-calorie malnutrition, moderate Sickle cell anemia TACO (transfusion associated circulatory overload) ? Past Surgical History ORIF of a left mandibular body fracture (Dr. Russ): 09/23/15 blood transfusions PEG - Percutaneous endoscopic gastrostomy ? Social History Alcohol Details:??Use: Past. ??Other: Reports past heavy daily drinking, denies at present. Substance Abuse Details:??Use: Past. ??Type: Cocaine, Marijuana. ??Other: Denies current use. Tobacco Details:??Use: Former smoker, quit more than 30 days ago. ? Psychosocial History ? Family History Mother: Sickle cell trait Father: Sickle cell trait ? Medications Home Medications Albuterol (ProAir HFA 90 mcg/inh inhalation aerosol)?2?puff(s)?Inhalation?Every 6 hours Allopurinol (allopurinol 100 mg oral tablet)?100?Milligram?1?tablet?By Mouth?Daily Clindamycin Topical (clindamycin 1% topical lotion)?1?tracy?Topically?2 times a day?apply to L armpit lesions/bumps twice per day until healed DiphenhydrAMINE (diphenhydrAMINE 25 mg oral capsule)?1?capsule?By Mouth?3 times a day?as needed? NEEDED FOR ITCHING Estradiol Topical (Estrace Vaginal Cream 0.1 mg/g)?1?gram?Vaginally?Daily at bedtime Gabapentin (gabapentin 300 mg oral capsule)?300?Milligram?1?capsule?By Mouth?3 times a day Hydroxyurea (hydroxyurea 500 mg oral capsule)?1?capsule?500?Milligram?By Mouth?2 times a day HydrOXYzine (hydrOXYzine hydrochloride 50 mg oral tablet)?1?tab(s)?50?Milligram?By Mouth?3 times a day?as needed?as needed for anxiety Loratadine (loratadine 10 mg oral tablet)?10?Milligram?1?tablet?By Mouth?Daily Lorazepam (LORazepam 1 mg oral tablet)?1?tab(s)?1?Milligram?By Mouth?2 times a day?as needed?as needed for anxiety?Limited Rx. Please contact Dr. Cuevas at [facility] if ongoing need. Multivitamin (Daily Lazara oral tablet)?1?tab(s)?By Mouth?Daily Nicotine (nicotine 4 mg oral transmucosal gum)?See Instructions?CHEW 1 PIECE EVERY 2 HOURS ASNEEDED FOR SMOKING CESSATION Omeprazole (omeprazole 20 mg oral enteric coated capsule)?1?capsule?20?Milligram?By Mouth?Daily Oxycodone (oxyCODONE 10 mg oral tablet)?2?tab(s)?20?Milligram?By Mouth?Every 4 hours?as needed?Pain , Moderate Quetiapine (QUEtiapine 25 mg oral tablet)?1?tablet?By Mouth?2 times a day?as needed? NEEDED FOR AGITATION ? Inpatient Medications Medications (24) Active SCHEDULED: (9) Allopurinol 100 mg Tablet (allopurinol 100 mg oral tablet) ??100 mg, By Mouth, Daily Folic Acid 1 mg Tablet (folic acid 1 mg oral tablet) ??1 mg, By Mouth, Daily Gabapentin 300 mg Capsule (gabapentin 300 mg oral capsule) ??300 mg, By Mouth, 3 times a day Heparin 5000 units/mL Inj (1 mL) (Heparin Inj) ??5,000 units 1 mL, Subcutaneous Injection, 3 times a day Loratadine 10 mg Tablet (loratadine 10 mg oral tablet) ??10 mg, By Mouth, Daily Multivitamin Tablet ??1 tablet, By Mouth, Daily NaCl 0.9% Flush 3ml (NaCL 0.9% Flush) ??3 mL, IV Push, Every 8 hours Pantoprazole 20 mg EC Tablet (pantoprazole 20 mg oral delayed release tablet) ??20 mg, By Mouth, Daily Thiamine 100 mg Tablet (thiamine 100 mg oral tablet) ??100 mg, By Mouth, Daily CONTINUOUS: (1) NaCL 0.9% (1000 mL) Cont IV 1,000 mL (0.9% NaCL 1,000 mL) ??1,000 mL, IV Infusion, 125 mL/hr PRN: (14) Acetaminophen 325 mg Tablet (Acetaminophen Tablet) ??650 mg, By Mouth, Every 4 hours Albuterol 90mcg/Inhalation Inhaler HFA (Ventolin 90 mcg Inhaler) ??2 inhalation, Inhalation, Every 6 hours Dextromethorphan-Guaifenesin 20 mg-200 mg/10 mL Liqu UD (Robitussin DM Liquid) ??10 mL, By Mouth, Every 4 hours diphenhydrAMINE 50 mg/mL Inj (DiphenhydrAMINE Inj) ??25 mg 0.5 mL, IV Push, Every 6 hours HYDROmorphone 1 mg/mL Inj Syringe (Dilaudid Inj) ??1 mg 1 mL, IV Push Slowly, Every 6 hours Lorazepam 1 mg Tablet (LORazepam 1 mg oral tablet) ??1 mg, By Mouth, 2 times a day Melatonin 3 mg Tablet (Melatonin Tablet) ??3 mg, By Mouth, Daily at bedtime NaCl 0.9% Flush 3ml (NaCL 0.9% Flush) ??3 mL, IV Push, Every 8 hours Nicotine 2 mg Gum (Nicotine Gum) ??2 mg, Chew, Every hour OxyCODONE 5 mg IR Tablet (oxyCODONE 5 mg oral tablet) ??20 mg, By Mouth, Every 4 hours Polyethylene Glycol 17 Gm Powder (MiraLax Powder) ??17 Gm 1 pack/packet, By Mouth, Daily Quetiapine 25 mg Tablet (QUEtiapine 25 mg oral tablet) ??25 mg, By Mouth, 2 times a day Senna 8.6 mg / Docusate 50 mg tablet (Docusate/Senna Tablet) ??1 tablet, By Mouth, 2 times a day Simethicone 80 mg Chewable Tablet (Simethicone Tablet) ??80 mg, Chew, 3 times a day ? Results Recent Labs BLOOD COUNT & DIFF WBC 16.1 k/mm3 (High)?? 02/18/2022 23:47 RBC 1.95 m/mm3 (Low)?? 02/18/2022 23:47 Hgb 6.8 Gm/dL (Low)?? 02/18/2022 23:47 Hct 18.5 % (Critical)?? 02/18/2022 23:47 MCV 94.9 femtoliters ()?? 02/18/2022 23:47 MCH 34.9 pg (High)?? 02/18/2022 23:47 MCHC 36.8 g/dL ()?? 02/18/2022 23:47 Platelet Count 165 k/mm3 ()?? 02/18/2022 23:47 RDW-SD 64.7 femtoliters (High)?? 02/18/2022 23:47 MPV 12.8 femtoliters (High)?? 02/18/2022 23:47 Nucleated RBC (Automated) 8.4 #/100 WBC'S ()?? 02/18/2022 23:47 Abs. NRBC 1.4 k/mm3 ()?? 02/18/2022 23:47 Abs. Neut 9.5 k/mm3 (High)?? 02/18/2022 23:47 Abs. Lymph 3.4 k/mm3 (High)?? 02/18/2022 23:47 Abs. Banks 1.9 k/mm3 (High)?? 02/18/2022 23:47 Abs. Eo 0.5 k/mm3 (High)?? 02/18/2022 23:47 Abs. Baso 0.5 k/mm3 (High)?? 02/18/2022 23:47 Neut % 59.0 % ()?? 02/18/2022 23:47 Lymph % 21.0 % ()?? 02/18/2022 23:47 Banks % 12.0 % (High)?? 02/18/2022 23:47 Eos % 3.0 % ()?? 02/18/2022 23:47 Baso % 3.0 % (High)?? 02/18/2022 23:47 Myelocytes % 1.0 % ()?? 02/18/2022 23:47 Metamyelocyte % 1.0 % ()?? 02/18/2022 23:47 RBC Morphology MODERATE ()?? 02/18/2022 23:47 Platelet Estimate ADEQUATE ()?? 02/18/2022 23:47 Retic Count 12.3 % (High)?? 02/18/2022 23:47 Retic Count Corrected 5.1 % (High)?? 02/18/2022 23:47 Retic Production Index 2.5 % (High)?? 02/18/2022 23:47 ?? CHEM GENERAL Sodium 138 mmol/L ()?? 02/18/2022 23:47 Potassium 5.3 mmol/L (High)?? 02/18/2022 23:47 Chloride 104 mmol/L ()?? 02/18/2022 23:47 Bicarbonate Level 21 mmol/L (Low)?? 02/18/2022 23:47 Anion Gap 13 ()?? 02/18/2022 23:47 Glucose Level 89 mg/dL ()?? 02/18/2022 23:47 BUN 22 mg/dL (High)?? 02/18/2022 23:47 Creatinine-Blood 1.8 mg/dL (High)?? 02/18/2022 23:47 Estimated GFR Creatinine 35 ML/MIN/1.73 M2 ()?? 02/18/2022 23:47 Calcium 8.9 mg/dL ()?? 02/18/2022 23:47 ?? VIROLOGY Influenza A PCR NEGATIVE ()?? 02/18/2022 22:40 Influenza B PCR NEGATIVE ()?? 02/18/2022 22:40 RSV PCR NEGATIVE ()?? 02/18/2022 22:40 COVID-19 PCR Specimen Source NASAL ()?? 02/18/2022 22:40 COVID-19 PCR Result NEGATIVE ()?? 02/18/2022 22:40 ? Note * Zakiya Villeda RN: PERFORM Event Display: Discharge/Transfer Note Hospital Authored Date: [id number] Nursing Discharge Note Entered On: 02/24/2022 12:43 EST Performed On: 02/24/2022 12:42 EST by Zakiya Villeda RN Nursing Discharge Note 2 Discharge Time : 02/24/2022 12:43 EST Discharge Level of Care at Discharge : Home/Longterm/Foster Care Patient Left Unit Via : Wheelchair Patient Accompanied Off Unit with : Responsible adult DC Instructions Provided & Signed by Pt : Yes Patient Understands D/C Instructions : Yes Verbalized Understanding of D/C Plan By : Patient Patient Instructions Discharge Signed : Yes Did Pt have Specialty Bed or Wound Vac : No Zakiya Villeda RN - 02/24/2022 12:42 EST * Марина ARCHIBALD, Christina R: Bianca Desai: PERFORM Event Display: Discharge/Transfer Note Hospital Authored Date: [id number] Patient: ??JOSE VIZCAINO ? Age:??52 Years?Sex:??Female?:??1970?? Patient Information Discharge Location: [facility] Primary Care Physician: Lesia Cuevas MD Admit Date/Time: 02/18/22 23:49 Discharge Date:??02/24/2022 11:02 Discharge Disposition Discharge Disposition: Home: No Services Discharge Diagnosis Acute kidney injury (N17.9) Chronic hypoxemic respiratory failure (J96.11) Hyperkalemia (E87.5) Sickle cell anemia (D57.1) Sickle cell pain crisis (D57.00) ?? _ Discharge Medications Albuterol (ProAir HFA 90 mcg/inh inhalation aerosol)?2?puff(s)?Inhalation?Every 6 hours Allopurinol (allopurinol 100 mg oral tablet)?100?Milligram?1?tablet?By Mouth?Daily Clindamycin Topical (clindamycin 1% topical lotion)?1?tracy?Topically?2 times a day?apply to L armpit lesions/bumps twice per day until healed DiphenhydrAMINE (diphenhydrAMINE 25 mg oral capsule)?1?capsule?By Mouth?3 times a day?as needed? NEEDED FOR ITCHING Estradiol Topical (Estrace Vaginal Cream 0.1 mg/g)?1?gram?Vaginally?Daily at bedtime Gabapentin (gabapentin 300 mg oral capsule)?300?Milligram?1?capsule?By Mouth?3 times a day Hydroxyurea (hydroxyurea 500 mg oral capsule)?1?capsule?500?Milligram?By Mouth?2 times a day HydrOXYzine (hydrOXYzine hydrochloride 50 mg oral tablet)?1?tab(s)?50?Milligram?By Mouth?3 times a day?as needed?as needed for anxiety Loratadine (loratadine 10 mg oral tablet)?10?Milligram?1?tablet?By Mouth?Daily Multivitamin (Daily Lazara oral tablet)?1?tab(s)?By Mouth?Daily Nicotine (nicotine 4 mg oral transmucosal gum)?See Instructions?CHEW 1 PIECE EVERY 2 HOURS ASNEEDED FOR SMOKING CESSATION Omeprazole (omeprazole 20 mg oral enteric coated capsule)?1?capsule?20?Milligram?By Mouth?Daily Oxycodone (oxyCODONE 10 mg oral tablet)?2?tab(s)?20?Milligram?By Mouth?Every 4 hours?as needed?Pain , Moderate Quetiapine (QUEtiapine 25 mg oral tablet)?1?tablet?By Mouth?2 times a day?as needed? NEEDED FOR AGITATION sodium zirconium cyclosilicate (sodium zirconium cyclosilicate 10 g oral powder for reconstitution)?5?gram?By Mouth?Every Thursday and ? Medications Started lokelma Medications Discontinued lorazepam - no recent fills Doses Changed none Allergies Allergies ?(Active and Proposed Allergies Only) Compazine? (Severity: Unknown severity, Onset: Unknown) ?Reactions: tongue swelling ? PCP Follow-Up/Heads-Up 1. CULLEN, ?RTA, hyperK --- Kidney Care will see as outpatient. please monitor K (have sent with lab slip for Sunday 02/26) 2. port not working - not sure if this is PCP or heme who should help arrange removal Future Appointments Thursday 3:00 PM EST ?? Where: [facility] [address] [place] [address]- Hospital Course Ms. Vizcaino is a 52 yo F with PMHx severe COVID 19 (July 3030) c/b ARDS/intubation/trach/peg (now removed, on 5L baseline), pulmonary HTN, sickle cell anemia who presented to [facility] ED with c/o worsening sickle cell pain, admitted for further management.??Sickle cell was treated with IV dliaudid, Be nadryl, & fluids. ?? She was persistently hyperkalemic, with associated CULLEN??on arrival. Kidney care was consulted.??AKIresolved,??hyperkalemia treated. She will be discharged on twice weekly Lokelma??and will have outpatient kidney care follow-up??which will be arranged on their end.??Given that her renal function was stable,??renal vein??Doppler??to rule out vein thrombosis??can be deferred to outpatient per renalrecommendation. ?? 02/24/2022??VSS. Seen and examined at bedside this AM. Eager for discharge, states that??she??feels well, nearing baseline. No complaints. Tolerating diet. Denies f/c, dizziness, CP, palpitations, SOB,abdominal pain, constipation, N/V/D. ?? Objective Assessment and Plan Sickle cell pain crisis (D57.00) Sickle cell anemia (D57.1) increasing pains in extremities c/w previous sickle cell pain crisis Primary Heme: Vidhit, not taking home hydroxyurea H/H stable, pain control adequate ? - PO oxycodone 20 Q4??(home dose) ? - f/u Heme outpt ?? Hyperkalemia??(E87.5) Acute Kidney Injury (N17.9) CULLEN resolved. Cr 1.8 on arrival (0.9 07/2021), suspect prerenal??given improvement with IVF. 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 -??Rx:??Lokelma twice weekly ? -??further w/u including renal doppler to r/o Renal vein thrombosis as outpt ?? Port Malfunction: right chest port supposedly has not functioned??x 3 years. will need outpatient removal. defer to PCP/heme outpatient. ?? Chronic hypoxemic respiratory failure (J96.11):??at baseline 5L NC ? . Physical Exam Temperature?98.7 ?(06:43) Systolic Blood Pressure?111 ?(06:43) Diastolic Blood Pressure?66 ?(06:43) Pulse?88 ?(06:43) SpO2?100 ?(06:43) Respiratory Rate?18 ?(10:09) ? General: Alert, NAD. HEENT: Normocephalic. Respiratory: Diminished at bases. No wheezing, rales or rhonchi. Cardiovascular: RRR. No murmurs, rubs or gallops. Gastrointestinal: Abdomen soft, non-tender, non-distended. + bowel sounds. Neurologic: Moves all extremities spontaneously. Skin: No rashes or lesions. Extremities: No cyanosis or clubbing. No gross deformities. Normal range of motion. Psychiatric: appropriate mood and affect Consultants Kidney care???last seen 02/24/2022 Pending Results Add On Lab Order ordered on 02/22/2022 Add On Lab Order ordered on 02/23/2022 Add On Lab Order ordered on 02/23/2022 Aldosterone ordered on 02/23/2022 COVID-19 (2019 Novel Coronavirus) PCR ordered on 02/24/2022 Electrolytes ordered on 02/22/2022 Patient Education Titles Sodium Zirconium Cyclosilicate Powder For Oral Suspension?? Follow-Up Appointments Added Follow Up ?Time Frame ?Comments Lesia Cuevas MD Patient Instructions You are admitted for sickle cell pain??crisis. ?? While you are in the hospital, your potassium levels were high.?? I have prescribed you a medication??which you should take twice a week, we recommend Thursday and . ??This will help keep potassium levels and check.?? The kidney doctors will call you??for a follow-up appointment, they are thepotassium experts and will help keep your potassium levels normal??as an outpatient. ?? Have given you a lab slip??so that we can recheck your potassium??in a few days.?? I will ask you to go to wherever you typically get your blood work done??on Thursday (02/26),??so that you can get your??blood work done and it can be sent both to the kidney doctor and your primary care provider. ?? It was a pleasure to take care of you, We hope you feel better Post Discharge Care Discharge ?02/24/22 11:02:00 EST Discharge Prescriptions ?Written, ??02/24/22 11:02:00 EST Home Health Face to Face ^HomeHealthFTF Results Discharge Labs BLOOD BANK Blood Type O Positive ()?? 02/19/2022 15:00 Antibody Screen Negative ()?? 02/19/2022 15:00 ?? BLOOD COUNT & DIFF WBC 15.5 k/mm3 (High)?? 02/24/2022 01:52 RBC 1.86 m/mm3 (Low)?? 02/24/2022 01:52 Hgb 6.3 Gm/dL (Critical)?? 02/24/2022 01:52 Hct 17.0 % (Critical)?? 02/24/2022 01:52 MCV 91.4 femtoliters ()?? 02/24/2022 01:52 MCH 33.9 pg ()?? 02/24/2022 01:52 MCHC 37.1 g/dL (High)?? 02/24/2022 01:52 Platelet Count 108 k/mm3 (Low)?? 02/24/2022 01:52 RDW-SD 60.2 femtoliters (High)?? 02/24/2022 01:52 MPV 13.1 femtoliters (High)?? 02/24/2022 01:52 Nucleated RBC (Automated) 5.9 #/100 WBC'S ()?? 02/24/2022 01:52 Abs. NRBC 0.9 k/mm3 ()?? 02/24/2022 01:52 Abs. Neut 9.5 k/mm3 (High)?? 02/18/2022 23:47 Abs. Lymph 3.4 k/mm3 (High)?? 02/18/2022 23:47 Abs. Banks 1.9 k/mm3 (High)?? 02/18/2022 23:47 Abs. Eo 0.5 k/mm3 (High)?? 02/18/2022 23:47 Abs. Baso 0.5 k/mm3 (High)?? 02/18/2022 23:47 Neut % 59.0 % ()?? 02/18/2022 23:47 Lymph % 21.0 % ()?? 02/18/2022 23:47 Banks % 12.0 % (High)?? 02/18/2022 23:47 Eos % 3.0 % ()?? 02/18/2022 23:47 Baso % 3.0 % (High)?? 02/18/2022 23:47 Myelocytes % 1.0 % ()?? 02/18/2022 23:47 Metamyelocyte % 1.0 % ()?? 02/18/2022 23:47 RBC Morphology MODERATE ()?? 02/18/2022 23:47 Platelet Estimate ADEQUATE ()?? 02/18/2022 23:47 Retic Count 6.6 % (High)?? 02/23/2022 02:30 Retic Count Corrected 2.5 % (High)?? 02/23/2022 02:30 Retic Production Index 1.3 % ()?? 02/23/2022 02:30 ? CARDIAC CK, Total 46 units/L ()?? 02/23/2022 12:30 ? CHEM GENERAL Sodium 141 mmol/L ()?? 02/24/2022 01:52 Potassium 5.3 mmol/L (High)?? 02/24/2022 01:52 Potassium Plasma 5.8 mmol/L (High)?? 02/21/2022 16:56 Chloride 108 mmol/L (High)?? 02/24/2022 01:52 Bicarbonate Level 24 mmol/L ()?? 02/24/2022 01:52 Anion Gap 9 ()?? 02/24/2022 01:52 Glucose Level 94 mg/dL ()?? 02/23/2022 16:05 BUN 23 mg/dL (High)?? 02/24/2022 01:52 Creatinine-Blood 1.0 mg/dL ()?? 02/24/2022 01:52 Estimated GFR Creatinine 68 ML/MIN/1.73 M2 ()?? 02/24/2022 01:52 Calcium 8.9 mg/dL ()?? 02/23/2022 16:05 Magnesium 2.2 mg/dL ()?? 02/23/2022 02:30 Protein, Total 6.9 Gm/dL ()?? 02/22/2022 06:07 Albumin 3.3 Gm/dL (Low)?? 02/22/2022 06:07 LDH HEMOLYZED units/L ()?? 02/22/2022 06:07 Alkaline Phosphatase 188 units/L (High)?? 02/22/2022 06:07 AST (SGOT) 98 units/L (High)?? 02/22/2022 06:07 ALT (SGPT) 33 units/L ()?? 02/22/2022 06:07 Bilirubin, Total 2.1 mg/dL (High)?? 02/22/2022 06:07 Bilirubin, Direct 0.7 mg/dL (High)?? 02/22/2022 06:07 Bilirubin, Indirect 1.4 mg/dL (High)?? 02/22/2022 06:07 ? ENDOCRINE/TUMOR MARKER Cortisol Level 11.2 ??g/dL ()?? 02/23/2022 02:30 ? HEME OTHER Hold Lavender Top SPECIMEN DISCARDED AFTER 24 HOURS. ()?? 02/20/2022 13:43 ? IMMUNOLOGY GENERAL Complement C3 124 mg/dL ()?? 02/23/2022 16:05 Complement C4 22 mg/dL ()?? 02/23/2022 16:05 ?? UA/URINALYSIS Appear/Color, Urine YELLOW ()?? 02/23/2022 15:48 Specific Grandin, Urine 1.012 ()?? 02/23/2022 15:48 pH, Urine 6.5 ()?? 02/23/2022 15:48 Albumin, Urine NEGATIVE ()?? 02/23/2022 15:48 Glucose, Urine NEGATIVE ()?? 02/23/2022 15:48 Ketones, Urine NEGATIVE ()?? 02/23/2022 15:48 Bilirubin, Urine NEGATIVE ()?? 02/23/2022 15:48 Hemoglobin, Urine NEGATIVE ()?? 02/23/2022 15:48 Nitrite, Urine NEGATIVE ()?? 02/23/2022 15:48 Leukocyte, Urine 3+ (Abnormal)?? 02/23/2022 15:48 Urobilinogen NORMAL mg/dL ()?? 02/23/2022 15:48 WBC's, Urine 39 /HPF (High)?? 02/23/2022 15:48 RBC's, Urine 2 /HPF ()?? 02/23/2022 15:48 Bacteria HEAVY HPF (Abnormal)?? 02/23/2022 15:48 Squamous Epith 1 /HPF ()?? 02/23/2022 15:48 Mucus SLIGHT /LPF ()?? 02/23/2022 15:48 ?? URINE OTHER Creatinine, Urine Random 62.2 mg/dL ()?? 02/23/2022 15:48 Sodium, Urine Random 66 mmol/L ()?? 02/23/2022 15:48 Potassium, Urine Random 24.0 mmol/L ()?? 02/23/2022 15:48 Urea Nitrogen, Urine Random 503.8 mg/dL ()?? 02/23/2022 15:48 Protein, Urine Random 8 mg/dL ()?? 02/23/2022 15:48 Malb/Creat Ratio Unable to calculate mg/Gm ()?? 02/23/2022 15:48 Urine Creat For Micro Alb 62.2 mg/dL ()?? 02/23/2022 15:48 Micro-Albumin <12.0 mg/L ()?? 02/23/2022 15:48 ?? VIROLOGY Influenza A PCR NEGATIVE ()?? 02/18/2022 22:40 Influenza B PCR NEGATIVE ()?? 02/18/2022 22:40 RSV PCR NEGATIVE ()?? 02/18/2022 22:40 COVID-19 PCR Specimen Source NASAL ()?? 02/20/2022 09:00 COVID-19 PCR Result NEGATIVE ()?? 02/20/2022 09:00 ? KIDNEY CARE NOTE 02/24/22 ?Impression and Plan ?Kind 52-year-old female with a history of sickle cell disease, hypoxic respiratory failure secondary to COVID-19 infection admitted with acute pain crisis and acute kidney injury complicated by hyperkalemia. ??At this point her current medical issues include ?1. ??Acute kidney injury secondary to hypoperfusion and/or the possibility of intrinsic renal ischemia due to severe sickling-the patient's serum creatinine has improved significantly back to herbaseline. ??Time will tell whether or not the patient has sustained chronic renal injury due to hermultiple episodes of CULLEN and chronic interstitial ischemia. ?2. ??Hyperkalemia likely related to a multitude of defects including tissue release, hyperkalemic renal tubular acidosis and decreased GFR. ??I doubt but cannot exclude the possibility of an acute component of factitious hyperkalemia which was excluded on 1 draw. ??As you know, potassium measurements will need to be performed rapidly after blood draw due to intra tubular sickling and potassium release.?? [1] 34??minutes spent on discharge [1]??Renal Progress Note; Curry Fuentes MD 02/24/2022 06:03 EST * Марина ARCHIBALD, Christina Mai: PERFORM Event Display: Discharge/Transfer Note Hospital Authored Date: Pt seen and examined at the bedside on the day of discharge.?? Physical examination, assessment andplan discussed with??Kathryn WALSH.?? Agree??with assessment and plan as below ?? Patient admitted for sickle cell crisis??and had??acute kidney injury with??persistent hyperkalemia Symptoms related to vaso-occlusive crisis??improved significantly with??IV opioids, IV fluids and Benadryl.?? Patient??feels comfortable to go home on??oral oxycodone at home dose. Nephrology??input appreciated,??renal function back to baseline and potassium??improved down to 5.3after multiple doses of Lokelma.?? Nephrology suggested??to discharge??home on??Lokelma twice a week??with close follow-up in office and outpatient labs.?? Suggested patient to repeat labs(CBC, BMP)??in 2 to 3 days and she verbalized agreement. ?? Physical exam:??No apparent distress,??on oxygen via nasal cannula at baseline. S1-S2 heard,??RRR Bilateral air entry fair.?? No wheezing Abdomen??soft, nontender, nondistended No pedal edema ?? Christina Parish MD * Ronal GAY, Zakiya: PERFORM Event Display: Patient Education/Instruction Authored Date: [id number] Inpatient Adult Discharge Instructions [place] [id number] Name: JOSE VIZCAINO : 1970 Visit: 02/18/2022 23:49:00 Current Date: 02/24/2022 12:25 Account: [id number] Inpatient Adult Discharge Instructions We would like to thank you for allowing us to assist you with your healthcare needs. The following includes patient education materials and information regarding your injury/illness. Our entire staffstrives to provide an excellent experience for our patients and their families. PLEASE ENSURE YOU FOLLOW-UP PER THE INSTRUCTIONS BELOW! ?? YOUR OPINION IS IMPORTANT TO US! Please complete the survey you may receive by mail or email. Your feedback will be used to make improvements to the healthcare experiences of our patients and their families. Surveys are administered by [employer] ?? If further treatment with your primary care physician or another doctor is recommended, it is important for you to keep the appointment. Call your primary care physician or return to the Emergency Department immediately if your condition worsens, fails to improve, or new symptoms develop. If you need to find a doctor, you can call [facility] for a referral at [phone] or toll free at [phone] ([phone]) or log in to [email or web address].. ?? You can view and manage your care through the patient portal or by using a health care tracy of your choosing. [employer] is a website that allows you to securely view your medical information including your hospital discharge summary, office visit summaries, medications and follow-up visits. You can also request appointments, renew medications, and request access to your medical information using a health care tracy of your choosing, or just ask a question. You can enroll at [email or web address] or register during your next office visit. You have been discharged from [facility], Patient Care Unit: S3. If you have any questions regarding these instructions after you leave, please call us and we will be happy to assist you. [facility] Your Care Team Attending Physician Марина ARCHIBALD, Christina Mai Consulting Providers Samuel ARCHIBALD, Caleb Fuentes MD, Curry Pineda Discharging Providers Parul WALSH, Bianca Sheth Reason for Admission Sickle cell pain Your Diagnosis Sickle cell pain crisis Sickle cell anemia Chronic hypoxemic respiratory failure Acute kidney injury Hyperkalemia Tests Performed Below is a partial list of the tests performed during your hospitalization. You may have had other tests and procedures not included in this list. Please discuss all test results with your provider. Basic Metabolic Panel BUN C3 Complement C4 Complement CBC CBC w/ Differential CK (CREATINE KINASE) COMPLETE URINALYSIS Cortisol Level COVID-19 (2019 Novel Coronavirus) PCR COVID-19, RSV, and Flu A/B, Rapid PCR Creatinine CREATININE, URINE MG/DL ELECTROLYTES HEPATIC FUNCTION PANEL HOLD LAVENDER TUBE K Plasma K Urine LDH Lytes Magnesium Level PROTEIN, URINE MG/DL RETICULOCYTE COUNT SODIUM, URINE MMOL/L Type and Screen UREA NITROGEN, URINE MG/DL URINARY MICROALBUMIN XR Chest Portable Primary Care Provider Mason ARCHIBALD, Lesia Advance Directive Health Care Proxy on File Yes - Health Care Proxy No qualifying data available. Discharge Vitals Temperature: 98.7 DegF Height: 163 cm Pulse Rate: 88 bpm Weight: 64.5 kg Respiratory Rate: 16 br/min Body Mass Index: 22.88 kg/m2 Systolic Blood Pressure: 111 mm Hg Body surface area: 1.66 Diastolic Blood Pressure: 66 mm Hg ?? Oxygen Saturation: 100 % ?? Studies Pending All tests and labs ordered during this hospital stay have been completed unless listed below. Please discuss all pending results with your provider listed above in these instructions. ?? Add On Lab Order Aldosterone COVID-19 (2019 Novel Coronavirus) PCR Electrolytes (Lytes) What to do next Instructions From Your Doctor You are admitted for sickle cell pain??crisis. ?? While you are in the hospital, your potassium levels were high.?? I have prescribed you a medication??which you should take twice a week, we recommend Thursday and . ??This will help keep potassium levels and check.?? The kidney doctors will call you??for a follow-up appointment, they are thepotassium experts and will help keep your potassium levels normal??as an outpatient. ?? Have given you a lab slip??so that we can recheck your potassium??in a few days.?? I will ask you to go to wherever you typically get your blood work done??on Thursday (02/26),??so that you can get your??blood work done and it can be sent both to the kidney doctor and your primary care provider. ?? It was a pleasure to take care of you, We hope you feel better Discharge Orders Scheduled Follow-Up Appointments Thursday 3:00 PM EST ?? Where: [place] [address]- You Need to Schedule the Following Appointments Follow Up with??Lesia Cuevas MD When?? Where: ?? Discharge Medications JOSE VIZCAINO :1970 Visit Date:02/18/2022 Medications: Please continue your medications until treatment is completed or stopped by your provider. Medications not listed below should be discontinued. Discuss any questions related to medications with your provider. What How Much When Why Instructions Next Dose New sodium zirconium cyclosilicate (sodium zirconium cyclosilicate 10 g oral powder for reconstitution) 5 gram Oral Every Thursday and Pickup at [facility]/pharmacy #[id number] 02/27?? AM Unchanged Albuterol (ProAir HFA 90 mcg/ inh inhalation aerosol) 2 puff(s) Inhalation Every 6 hours as prescribed Unchanged Allopurinol (allopurinol 100 mg oral tablet) 1 tab(s) Oral Daily 02/25?? AM Unchanged Clindamycin Topical (clindamycin 1% topical lotion) 1 tracy Topically Twice a day apply to L armpit lesions/ bumps twice per day until healed ?? as prescribed Unchanged DiphenhydrAMINE (diphenhydrAMINE 25 mg oral capsule) 1 capsule Oral 3 times a day as needed for NEEDED FOR ITCHING last dose 02/24?? AM Unchanged Estradiol Topical (Estrace Vaginal Cream 0.1 mg/ g) 1 gram Vaginally Daily at Bedtime as prescribed Unchanged Gabapentin (gabapentin 300 mg oral capsule) 1 capsule Oral 3 times a day 02/24?? 3?? PM Unchanged Hydroxyurea (hydroxyurea 500 mg oral capsule) 1 capsule Oral Twice a day as prescribed Unchanged HydrOXYzine (hydrOXYzine hydrochloride 50 mg oral tablet) 1 tab(s) Oral 3 times a day as needed for as needed for anxiety as prescribed Unchanged Loratadine (loratadine 10 mg oral tablet) 1 tab(s) Oral Daily 02/25?? AM Unchanged Multivitamin (Daily Lazara oral tablet) 1 tab(s) Oral Daily 02/25?? AM Unchanged Nicotine (nicotine 4 mg oral transmucosal gum) See instructions CHEW 1 PIECE EVERY 2 HOURS NEEDED FOR SMOKING CESSATION ?? as prescribed Unchanged Omeprazole (omeprazole 20 mg oral enteric coated capsule) 1 capsule Oral Daily 02/25?? AM Unchanged Oxycodone (oxyCODONE 10 mg oral tablet) 2 tab(s) Oral Every 4 hours as needed for Pain , Moderate Sickle cell anemia as prescribed Unchanged Quetiapine (QUEtiapine 25 mg oral tablet) 1 tab(s) Oral Twice a day as needed for NEEDED FOR AGITATION as prescribed Pharmacy Information [facility]/pharmacy #[id number]: [id number] [place], [place] [phone] ?? What How Much When Comments Stop Taking Lorazepam (LORazepam 1 mg oral tablet) 1 tab(s) Oral Twice a day as needed for as needed for anxiety Limited Rx. Please contact Dr. Cuevas at [facility] if ongoing need. ?? Test Results Below is a partial list of the most recent Laboratory test results done prior to this discharge. You may have had other tests and procedures not included in this list. Please discuss all test resultswith your provider. Basic Metabolic Panel (02/23/2022) ???Sodium - 136 mmol/L???Potassium - 5.6 mmol/L???Chloride - 104 mmol/L???Bicarbonate Level - 22 mmol/L???Anion Gap - 10???Glucose Level - 94 mg/dL???BUN - 26 mg/dL???Creatinine-Blood - 1.0 mg/dL???Estimated GFR Creatinine - 67 ML/MIN/1.73 M2???Calcium - 8.9 mg/dL BUN (02/24/2022) ???BUN - 23 mg/dL C3 Complement (02/23/2022) ???Complement C3 - 124 mg/dL C4 Complement (02/23/2022) ???Complement C4 - 22 mg/dL CBC (02/24/2022) ???WBC - 15.5 k/mm3???RBC - 1.86 m/mm3???Hgb - 6.3 Gm/dL???Hct - 17.0 %???MCV - 91.4 femtoliters???MCH - 33.9 pg???MCHC - 37.1 g/dL???Platelet Count - 108 k/mm3???RDW-SD - 60.2 femtoliters???MPV - 13.1 femtoliters???Nucleated RBC (Automated) - 5.9 #/100 WBC'S???Abs. NRBC - 0.9 k/mm3 CBC w/ Differential (02/18/2022) ???WBC - 16.1 k/mm3???RBC - 1.95 m/mm3???Hgb - 6.8 Gm/dL???Hct - 18.5 %???MCV - 94.9 femtoliters???MCH - 34.9 pg???MCHC - 36.8 g/dL???Platelet Count - 165 k/mm3???RDW-SD - 64.7 femtoliters???MPV - 12.8 femtoliters???Nucleated RBC (Automated) - 8.4 #/100 WBC'S???Abs. NRBC - 1.4 k/mm3???Abs. Neut - 9.5 k/mm3???Abs. Lymph - 3.4 k/mm3???Abs. Banks - 1.9 k/mm3???Abs. Eo - 0.5 k/mm3???Abs. Baso - 0.5 k/mm3???Neut % - 59.0 %???Lymph % - 21.0 %???Banks % - 12.0 %???Eos % - 3.0 %???Baso % - 3.0 %???Myelocytes % - 1.0 %???Metamyelocyte % - 1.0 %???RBC Morphology - MODERATE???Platelet Estimate - ADEQUATE CK (CREATINE KINASE) (02/23/2022) ???CK, Total - 46 units/L COMPLETE URINALYSIS (02/23/2022) ???Appear/Color, Urine - YELLOW???Specific Grandin, Urine - 1.012???pH, Urine - 6.5???Albumin, Urine - NEGATIVE???Glucose, Urine - NEGATIVE???Ketones, Urine - NEGATIVE???Bilirubin, Urine - NEGATIVE???Hemoglobin, Urine - NEGATIVE???Nitrite, Urine - NEGATIVE???Leukocyte, Urine - 3+???Urobilinogen - NORMAL???WBC's, Urine - 39 /HPF???RBC's, Urine - 2 /HPF???Bacteria - HEAVY???Squamous Epith - 1 /HPF???Mucus - SLIGHT Cortisol Level (02/23/2022) ???Cortisol Level - 11.2 ??g/dL COVID-19 (2019 Novel Coronavirus) PCR (02/20/2022) ???COVID-19 PCR Specimen Source - NASAL???COVID-19 PCR Result - NEGATIVE COVID-19, RSV, and Flu A/B, Rapid PCR (02/18/2022) ???Influenza A PCR - NEGATIVE???Influenza B PCR - NEGATIVE???RSV PCR - NEGATIVE???COVID-19 PCR Specimen Source - NASAL???COVID-19 PCR Result - NEGATIVE Creatinine (02/24/2022) ???Creatinine-Blood - 1.0 mg/dL???Estimated GFR Creatinine - 68 ML/MIN/1.73 M2 CREATININE, URINE MG/DL (02/23/2022) ???Creatinine, Urine Random - 62.2 mg/dL ELECTROLYTES (02/22/2022) ???Sodium - 140 mmol/L???Potassium - 6.3 mmol/L???Chloride - 108 mmol/L???Bicarbonate Level - 22 mmol/L???Anion Gap - 10 HEPATIC FUNCTION PANEL (02/22/2022) ???Protein, Total - 6.9 Gm/dL???Albumin - 3.3 Gm/dL???Alkaline Phosphatase - 188 units/L???AST (SGOT) - 98 units/L???ALT (SGPT) - 33 units/L???Bilirubin, Total - 2.1 mg/dL???Bilirubin, Direct - 0.7 mg/dL???Bilirubin, Indirect - 1.4 mg/dL HOLD LAVENDER TUBE (02/20/2022) ???Hold Lavender Top - SPECIMEN DISCARDED AFTER 24 HOURS. K Plasma (02/21/2022) ???Potassium Plasma - 5.8 mmol/L K Urine (02/23/2022) ???Potassium, Urine Random - 24.0 mmol/L LDH (02/22/2022) ???LDH - HEMOLYZED Lytes (02/24/2022) ???Sodium - 141 mmol/L???Potassium - 5.3 mmol/L???Chloride - 108 mmol/L???Bicarbonate Level - 24 mmol/L???Anion Gap - 9 Magnesium Level (02/23/2022) ???Magnesium - 2.2 mg/dL PROTEIN, URINE MG/DL (02/23/2022) ???Protein, Urine Random - 8 mg/dL RETICULOCYTE COUNT (02/23/2022) ???Retic Count - 6.6 %???Retic Count Corrected - 2.5 %???Retic Production Index - 1.3 % SODIUM, URINE MMOL/L (02/23/2022) ???Sodium, Urine Random - 66 mmol/L Type and Screen (02/19/2022) ???Blood Type - O Positive???Antibody Screen - Negative UREA NITROGEN, URINE MG/DL (02/23/2022) ???Urea Nitrogen, Urine Random - 503.8 mg/dL URINARY MICROALBUMIN (02/23/2022) ???Malb/Creat Ratio - Unable to calculate???Urine Creat For Micro Alb - 62.2 mg/dL???Micro-Albumin - <12.0 mg/L Allergies (NKA means No Known Allergies) Compazine??(tongue swelling) Problems Active Problems??(7) Anemia?? Depression?? Protein-calorie malnutrition, moderate?? Sickle cell anemia?? sickle cell disease?? TACO (transfusion associated circulatory overload)?? urinary tract infection?? Education Materials Below is the list of Educational Leaflet Providered with your Discharge Instructions. Discharge Instructions for Hyperkalemia?? Hyperkalemia?? Sodium Zirconium Cyclosilicate Powder For Oral Suspension?? Valuables and Belongings I fully understand and agree that [facility] accepts no responsibility for all my personal property including clothing, toilet articles, radios, jewelry, dentures, hearing aids, rings, money, or any other property that is in my possession or is brought to me after admission. I understand certain valuables may be placed in a hospital safe for a short period of time. I understand that the hospital is not liable for loss or damage due to accident, fire, or other natural occurrence while said property is in the safe. I accept full responsibility for any personal property that I keep with me, and will not hold the hospital responsible in case of loss or disappearance. I acknowledge that i have been encouraged to send valuables and belongings home. ?? Date for Pt to Sign Valuables/Belongings: 02/20/22 18:07:00 ?? Other Discharge Information ? Pulmonary Rehab Status?? Pulmonary Rehab Discharge Status?? Respiratory Rate: 16 br/min ? Common Emergency Awareness Tips IS IT A STROKE? Act FAST and Check for these signs: FACE Does the face look uneven? ARM Does one arm drift down? SPEECH Does their speech sound strange? TIME Call at any sign of stroke ?? Heart Attack Signs Chest discomfort: Most heart attacks involve discomfort in the center of the chest and lasts more than a few minutes, or goes away and comes back. It can feel like uncomfortable pressure, squeezing, fullness or pain. Discomfort in upper body: Symptoms can include pain or discomfort in one or both arms, back, neck, jaw or stomach. Shortness of breath: With or without discomfort. Other signs: Breaking out in a cold sweat, nausea, or lightheaded. Remember, MINUTES DO MATTER. If you experience any of these heart attack warning signs, call to get immediate medical attention! ?? Smoking can increase your chances of developing chronic health problems and can cause harmful effects to other family members in your house. If you smoke, you are strongly encouraged to quit. Please call [facility] at [phone] or [phone] ([phone]) or log in to [email or web address] for referrals to smoking cessation programs. ?? The National Suicide Prevention Hotline is available 15/09 if you or someone you know needs to find a reason to keep living. By calling 3-765-855-[employer] (3826) you'll be connected to a skilled, trained counselor at a crisis center in your area. INPATIENT DISCHARGE INSTRUCTIONS SIGNATURE PAGE JOSE VIZCAINO Location:[facility] Registration Date and Time:02/18/2022 23:49 EST Primary Care Physician: Lesia Cuevas MD, I JOSE VIZCAINO, have received the above patient education materials/instructions and have verbalized understanding. If ambulance or transport services are being used I further acknowledge being given a choice of service. ?? If you need to contact me, please call me at this number: . Patient/Banana Grader Name: Patient/Banana Grader Signature: Relationship to Patient: Witness Name/Signature: Date: * Zakiya Villeda RN: PERFORM Event Display: Patient Education Leaflets Authored Date: [id number] Discharge Instructions for Hyperkalemia ?? 18068 Discharge Instructions for Hyperkalemia You have been diagnosed with hyperkalemia. This means you have a high level of potassium in your blood. Potassium is important to the function of the nerve and muscle cells. This includes the cells of the heart. But a high level of potassium in the blood causes serious problems. These include abnormal heart rhythms and even heart attack. Diet changes Eat less of these potassium-rich foods: ??? Bananas ??? Apricots, fresh or dried ??? Oranges and orange juice ??? Grapefruit juice ??? Tomatoes, tomato sauce, and tomato juice ??? Spinach ??? Green, leafy vegetables, including salad greens, kale, broccoli, chard, and collards ??? Melons of all kinds ??? Peas ??? Beans ??? Potatoes ??? Sweet potatoes ??? Avocados and guacamole ??? Vegetable juice (homemade or store-bought) and vegetable juice cocktail ??? Fruit juices ??? Nuts, including pistachios, almonds, peanuts, hazelnuts, Mylo nuts, cashews, or mixed nuts ??? Lite or reduced sodium salt ?? Other home care ??? Tell your healthcare provider about all prescription and czac-smf-jysqsmg medicines. Also tell them about herbal or dietary supplements you are taking. Certain??medicines and supplements can increase potassium levels. ??? Take all medicines exactly as directed. ??? Have your potassium levels checked regularly. ??? Keep all follow-up appointments. Your healthcare provider needsto monitor your condition closely. ??? Learn to take your own pulse. If your pulse is less than 60??beats per minute, greater than 100 beats per minute, or irregular, call your provider. ?? Follow-up Follow up with your healthcare provider, or as advised. ?? When to call your healthcare provider Call your healthcare provider right away??if you have any of the following: ??? Slow, irregular heartbeat ??? Fatigue ??? Dizziness ??? Lightheadedness ??? Confusion ??? Weakness ?? Call 911 Call 911 if you have any of these: ??? Chest pain ??? Fainting ??? Shortness of breath ?? Last Reviewed Date: 2021 ?? [employer]. All rights reserved. This information is not intended as a substitute for professional medical care. Always follow your healthcare professional's instructions. ?? * Zakiya Villeda RN: PERFORM Event Display: Patient Education Leaflets Authored Date: [id number] Hyperkalemia ?? [id number] Hyperkalemia Hyperkalemia is too much potassium in the blood. This most often occurs in people who take??certainmedicines or who have kidney disease. This condition often has no symptoms until levels of potassium become dangerously high. If symptomsdo occur, they include muscle weakness and changes in the heartbeat. A blood test is done to diagnose the problem. An ECG (electrocardiogram) may also be done to quickly look at the way the heart is b eating. If hyperkalemia is caused by a medicine, the healthcare provider may lower the dose or switch to a different medicine. A low-potassium diet may also be prescribed.??You may be prescribed a medicine that decreases potassium until your levels are normal. Home care ??? Be sure your healthcare provider knows about all of the medicines you take. This includes prescription and neal-ejk-qpgofff medicines, supplements, herbs, and illegal drugs.??Follow your healthcare provider's advice about making changes to your medicines. ??? If a low-potassium diet has been prescribed, follow this closely. If you need help, ask to be referred to a dietitian for advice on how to follow this diet. Take any medicines prescribed. ?? Follow-up care Follow up with your healthcare provider. You may need a repeat blood test within the next??7 days. Schedule this as advised. ?? When to get medical advice Call your healthcare provider right away??if any of the following occur: ??? Nausea, vomiting, or diarrhea ??? Urinating only in small amounts or not urinating ??? Symptoms don't go away or get worse ?? Call 911 Call 911??if any of the following occur: ??? Fast or irregular heartbeat ??? Fainting, dizziness, or lightheadedness ??? Severe shortness of breath ??? Chest, arm, shoulder, neck or upper back pain ??? Trouble controlling your muscles or muscle weakness ?? Last Reviewed Date: 2022 ?? 3789-3891 [employer]. All rights reserved. This information is not intended as a substitute for professional medical care. Always follow your healthcare professional's instructions. ?? * Parul WALSH, Bianca Sheth: PERFORM Event Display: Patient Education Leaflets Authored Date: [id number] Sodium Zirconium Cyclosilicate Powder For Oral Suspension ?? [address] Sodium Zirconium Cyclosilicate Powder For Oral Suspension Brands: [employer] Uses For high potassium levels. ?? Instructions Mix contents of the packet into a glass with at least 45 mL of water and stir well. Drink the mixture right away. If any powder is left in the glass, add more water, stir, and drink it right away to make sure all the medicine has been taken. After taking other medicines, wait at least 2 hours before taking this medicine. Do not take any other medicines for 2 hours after this medicine. It is very important that you take the medicine at about the same time every day. It will work bestif you do this. Store at room temperature away from heat, light, and moisture. Do not keep in the bathroom. This medicine can reduce the absorption of other medicines. Talk to your doctor or pharmacist aboutthe best times to use this product. If you forget to take a dose on time, take it as soon as you remember. If it is almost time for thenext dose, do not take the missed dose. Return to your normal dosing schedule. Do not take 2 doses of this medicine at one time. Drug interactions can change how medicines work or increase risk for side effects. Tell your healthcare providers about all medicines taken. Include prescription and zxqj-hlg-plbffue medicines, vitamins, and herbal medicines. Speak with your doctor or pharmacist before starting or stopping any medicine. Tell your doctor if symptoms do not get better or if they get worse. This medicine contains sodium. If you are on a low sodium diet, consider this as part of your totalsodium diet. It is very important that you follow your doctor's instructions for all blood tests. ?? Cautions Tell your doctor and pharmacist if you ever had an allergic reaction to a medicine. Some patients with weak hearts may have worsening of symptoms. If you notice difficulty breathing, weight gain, or swelling of your legs or ankles, let your doctor know right away. Some patients taking this medicine have experienced serious side effects. Please speak with your doctor to understand the risks and benefits associated with this medicine. Do not use the medication any more than instructed. Tell the doctor or pharmacist if you are , planning to be , or . Do not share this medicine with anyone who has not been prescribed this medicine. ?? Side Effects The following is a list of some common side effects from this medicine. Please speak with your doctor about what you should do if you experience these or other side effects. ??? swelling of the legs, feet, and hands A few people may have an allergic reaction to this medicine. Symptoms can include difficulty breathing, skin rash, itching, swelling, or severe dizziness. If you notice any of these symptoms, seek medical help quickly. ?? Extra Please speak with your doctor, nurse, or pharmacist if you have any questions about this medicine. ?? https://[employer]/V2.0/fdbpem/1947 IMPORTANT NOTE: This document tells you briefly how to take your medicine, but it does not tell youall there is to know about it. Your doctor or pharmacist may give you other documents about your medicine. Please talk to them if you have any questions. Always follow their advice. There is a more complete description of this medicine available in [employer]. Scan this code on your smartphone or tablet or use the web address below. You can also ask your pharmacist for a printout. If you have any questions, please ask your pharmacist. The display and use of this drug information is subject to Terms of Use. Copyright(c) 2021 [employer]. ?? [employer]. All rights reserved. This information is not intended as a substitute for professional medical care. Always follow your healthcare professional's instructions. ?? * Event Display: Cardiac Rhythm Strips Authored Date: Hospital Progress note * Daisy Cadena RN: PERFORM, SIGN, VERIFY Event Display: Progress Note Hospital Authored Date: Patient: JOSE VIZCAINO Age: 52 years Sex: Female : 1970 Associated Diagnoses: None Author: Daisy Cadena RN Findings Problem Related to Alteration in Fluid Electrolyte : Alteration in Fluid Electrolyte Func/new 02/24/2022 11:00 EST Alteration Fluid Electrolytes Related to Anemia Goals & Outcomes, Fluid/Electrolyte Blood glucose levels will stabilize during hospitalization,Vital signs, electrolytes & glucose levels will stabilize, Pt will resume/maintain adequate cardiac output, Pt will resume/maintain adequate hemodynamic status Interventions, Fluid Electrolyte monitor cardiac status, monitor dietary intake, monitor for s/s ofhyper/hypokalemia, monitor for s/s of hypo or hyperglycemia, Maintain strict intake & output BH Goals/Interventions,Fluid Electrolyte Yes Fluid Electrolyte, Problem Start 02/23/2022 3:09 Reviewed plan with, Fluid Electrolyte Patient Patient Progression, Fluid Electrolyte Resolved problem Fluid Electrolyte, Problem Resolved 02/24/2022 11:30 . Nursing Data Cardiac Data. : Cardiac Data. 02/24/2022 7:56 EST Cardiovascular WNL . Gastrointestinal Data. : Gastrointestinal Data. 02/24/2022 7:56 EST Last Bowel Movement 02/20/2022 GI WNL Normal Bowel Pattern Twice a day . Genitourinary Data. : Genitourinary Data. 02/24/2022 7:56 EST Urine Color Yellow Urine Description Clear WNL except . HEENT Data. : HEENT Assessment 02/24/2022 7:56 EST HEENT, Adult WNL . Integumentary Data. : Integumentary Data. 02/24/2022 11:21 EST Sensory Perception No impairment Moisture Rarely moist Activity Walks frequently Mobility No limitations Nutrition Adequate Friction and Shear No apparent problem Fahad Score 22 Nursing Care Plan initiated/updated Not applicable 02/24/2022 7:56 EST Integumentary WNL . IV Lines. : IV Lines. 02/24/2022 11:27 EST Right Forearm 20 gauge 1 3/4 inches Peripheral IV Activity: Assess Peripheral IV Assess Compare Touch: A/C/T Done, no complications Peripheral IV Site Assessment: Clean, dry and intact, Flushes Well Peripheral IV Site Drainage: None Peripheral IV Dressing: Clean, dry and intact Peripheral IV Intervention: Flushed . Musculoskeletal Data. : Musculoskeletal Data. 02/24/2022 7:56 EST Musculoskeletal WNL . Neurological Data. : Neurological Data. 02/24/2022 11:21 EST Pain Intensity Not Done: Patient Sleeping (Not Done) 02/24/2022 11:20 EST Pain Intensity 7 02/24/2022 10:07 EST Pain Intensity 7 02/24/2022 7:56 EST Pain Location Other: body generalized Pain Intensity 7 Pain Intensity 7 1 - 10 Pain Scale Score 7 Neuro WNL . Patient Care Data. : Patient Care Data. 02/24/2022 11:18 EST Fall Elimination Incontinent Plan: Fall Elimination Monitor fluid intake & bladder & bowel activity, Implement an individualized toileting schedule Fall Agitation/Anxiety/Depression No impairment Fall Related Sign/Symptom/Condition None Fall Cognitive Limitations No impairment Fall Sensory and Physical Function Fatigued, Weak, Unsteady Gait, Requires Staff Assistance with Transfer, Requires the Use of an Assistive Device Plan: Fall Sensory and Physical Function Encourage safe activities to maintain strength & mobility, Ask family to encourage safe activities, Monitor patient's progress with physical activities Fall High Risk for Injury None of the above Total Falls Risk Score 13 Fall Risk Level High Risk Falls Prevention Plan for High Risk Fall risk decal outside of patient's room, Fall cotton buyer 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, Apply yellow high fall risk wrist band to wrist, Ensure patient has yellow non-skid slippers, Supervise patient in the bathroom & shower, Consider relocating patient closer to nurses'station, Activate bed exit alarm system, Evaluate footwear & ensure patient has non-skid slippers, Bed in lowest locked position, Provide patient/family falls prevention education, Place personalcare items & call felton within reach, Instruct patient/family to request assistance with ambulatio, Instruct patient/family not to get up without assistance, Supervise the patient when ambulating or making transfers, Check that needs are met to minimize attempts to get up, Hourly rounds, Ensure safe & uncluttered environment, Communicate falls risk to all providers 02/24/2022 7:56 EST Patient's Stated Goal none stated, comfort and safety maintained Turn and Reposition Able to change own position Sequential Compression Device Not ordered TEDS Not indicated/Not ordered ID band on Yes Allergy band in place/verified Yes Blood Pressure/Venipuncture All 4 limbs may be used Call Felton in Reach-Ensure Ability to Use Yes Patient Instructed on Use of Call Felton Yes Standard Safety Bed alert on, Bed in low position, Non-slip footwear, Upper/Half-length side-rails up, Wheels locked Pt Ed-Learning: Person Taught Patient Pt Ed-Learning: Learning Readiness Yes, alert and oriented Pain system assessment Detailed pain assessment . Vital Signs : VITAL SIGNS SECTION 02/24/2022 6:00 EST Temperature 98.7 DegF Temperature Route Oral Pulse Rate 88 bpm Respiratory Rate 16 br/min Systolic Blood Pressure 111 mm Hg Diastolic Blood Pressure 66 mm Hg Blood pressure sites Arm, left Pulse Pressure 45 mm Hg Oxygen Saturation 100 % Liters per Minute 6 L/min Mode of Delivery (Oxygen) Nasal cannula . Pain Data : PAIN SECTION 02/24/2022 11:21 EST Pain Intensity Not Done: Patient Sleeping (Not Done) 02/24/2022 11:20 EST Pain Intensity 7 02/24/2022 10:07 EST Pain Intensity 7 02/24/2022 7:56 EST Pain Location Other: body generalized Pain Intensity 7 Pain Intensity 7 1 - 10 Pain Scale Score 7 . Evaluation Pt A+Ox4. Lungs clear throughout. Pt on home Oxygen 5L NC. No edema +pedal pulses. Pt incontinent at times. Purewick in place draining clear, yellow urine. Abdomen soft, non-tender, non-distended. Last BM 02/20. Pt states It's common for me to go days like this. Skin intact. Pt c/o itching with some medication administration, medicated wih benadryl with relief of itch. Pt at baseline ambulationstatus. Pt resting comfortably in the bed. Able to make needs known. See CIS for full assessment. * Curry Fuentes MD: PERFORM, SIGN, VERIFY Event Display: Progress Note Hospital Authored Date: [id number] Patient: JOSE VIZCAINO Age: 52 years Sex: Female : 1970 Associated Diagnoses: None Author: Curry Fuentes MD No new renal issues developed overnight. Review of Systems Review of Systems Constitutional: no fever. Respiratory: no shortness of breath. Gastrointestinal: no diarrhea. Physical Examination Vitals Vitals : VITAL SIGNS SECTION 02/24/2022 4:00 EST Temperature 98.8 DegF Temperature Route Oral Pulse Rate 18 bpm L Systolic Blood Pressure 109 mm Hg Diastolic Blood Pressure 61 mm Hg Blood pressure sites Arm, left Blood pressure sites Arm, left Oxygen Saturation 100 % Mode of Delivery (Oxygen) Room air . General Appearance No apparent distress. Respiratory Lungs: no rales, no rhonchi. Cardiac No pericardial rub. Results Review General results Most recent results All : ALL RESULT SECTIONS 02/24/2022 1:52 EST Potassium 5.3 mmol/L H Creatinine-Blood 1.0 mg/dL 02/23/2022 16:05 EST Potassium 5.6 mmol/L H Creatinine-Blood 1.0 mg/dL 02/23/2022 12:30 EST Potassium 7.2 mmol/L C 02/23/2022 2:30 EST Potassium 5.3 mmol/L H Creatinine-Blood 1.4 mg/dL H 02/22/2022 13:08 EST Potassium 6.0 mmol/L H 02/22/2022 6:07 EST Potassium 6.3 mmol/L C Creatinine-Blood 1.2 mg/dL H 02/21/2022 16:56 EST Potassium Plasma 5.8 mmol/L H 02/21/2022 12:29 EST Potassium 6.0 mmol/L H Creatinine-Blood 1.0 mg/dL 02/20/2022 13:43 EST Potassium 5.9 mmol/L H Creatinine-Blood 1.2 mg/dL H 02/18/2022 23:47 EST Potassium 5.3 mmol/L H Creatinine-Blood 1.8 mg/dL H Impression and Plan Kind 52-year-old female with a history of sickle cell disease, hypoxic respiratory failure secondary to COVID-19 infection admitted with acute pain crisis and acute kidney injury complicated by hyperkalemia. At this point her current medical issues include 1. Acute kidney injury secondary to hypoperfusion and/or the possibility of intrinsic renal ischemia due to severe sickling-the patient's serum creatinine has improved significantly back to her baseline. Time will tell whether or not the patient has sustained chronic renal injury due to her multiple episodes of CULLEN and chronic interstitial ischemia. 2. Hyperkalemia likely related to a multitude of defects including tissue release, hyperkalemic renal tubular acidosis and decreased GFR. I doubt but cannot exclude the possibility of an acute component of factitious hyperkalemia which was excluded on 1 draw. As you know, potassium measurements will need to be performed rapidly after blood draw due to intra tubular sickling and potassium release. * Naila Conner RN: PERFORM, SIGN, VERIFY Event Display: Progress Note Hospital Authored Date: Patient: JOSE VIZCAINO Age: 52 years Sex: Female : 1970 Associated Diagnoses: None Author: Naila Conner RN Findings Problem Related to Alteration in Fluid Electrolyte : Alteration in Fluid Electrolyte Func/new 02/24/2022 3:00 EST Alteration Fluid Electrolytes Related to Anemia Goals & Outcomes, Fluid/Electrolyte Blood glucose levels will stabilize during hospitalization,Vital signs, electrolytes & glucose levels will stabilize, Pt will resume/maintain adequate cardiac output, Pt will resume/maintain adequate hemodynamic status Interventions, Fluid Electrolyte Monitor effects of dialysis/ultrafiltration, monitor cardiac status, monitor dietary intake, Monitor effects of diuretics, monitor for onset of acute bleeding, monitor for s/s of anemia: weakness, fatigue,, monitor for s/s of hyper/hypokalemia, monitor GI/ status,monitor hydration status, monitor mucous membranes, monitor skin turgor, temperature & capillary refill, Encourage oral intake of meals, snacks, supplements, Encourage oral intake/fluids as ordered, Maintain strict intake & output, Assess/monitor any signs of bleeding, Assess/monitor for s/s of shock, Assess/monitor lab values affected by anemia BH Goals/Interventions,Fluid Electrolyte Yes Fluid Electrolyte, Problem Start 02/23/2022 3:09 Reviewed plan with, Fluid Electrolyte Patient Patient Progression, Fluid Electrolyte Pt progressing according to plan . Nursing Data Biophysical Data. Vital Signs : VITAL SIGNS SECTION 02/24/2022 0:00 EST Temperature 99.4 DegF Temperature Route Oral Pulse Rate 84 bpm Systolic Blood Pressure 109 mm Hg Diastolic Blood Pressure 66 mm Hg Blood pressure sites Arm, left Oxygen Saturation 100 % Liters per Minute 6 L/min Mode of Delivery (Oxygen) Nasal cannula 02/23/2022 22:36 EST Respiratory Rate 20 br/min 02/23/2022 22:11 EST Respiratory Rate 20 br/min 02/23/2022 21:42 EST Early Warning Score 6.00 02/23/2022 21:41 EST Respiratory Rate 20 br/min 02/23/2022 21:38 EST Early Warning Score 6.00 02/23/2022 21:36 EST Respiratory Rate 20 br/min 02/23/2022 20:21 EST Early Warning Score 6.00 02/23/2022 20:00 EST Temperature 98.3 DegF Temperature Route Oral Pulse Rate 91 bpm H Respiratory Rate 18 br/min Systolic Blood Pressure 104 mm Hg Diastolic Blood Pressure 76 mm Hg Blood pressure sites Arm, left Pulse Pressure 28 mm Hg Oxygen Saturation 98 % Liters per Minute 6 L/min Mode of Delivery (Oxygen) Nasal cannula . Evaluation Pt alert and oriented and able to make needs known. No acute events overnight. Vital signs stable and patient appeared comfortable and in no distress. Pt complained of pain in right knee and back requiring administration of IV Dilaudid and oxycodone. Please refer to MAR. Pain alleviation achieved as patient appeared restful and asleep for majority of night. Patient also received Benadryl for itchiness as she states this is a common reaction she has to her pain medications. Pt has had no bowel movement since the . Pt received docusate senna and MiraLAX overnight. Bowel sounds present and patient reports having passed gas. Hbg of 6.3 and Hct of 17. Will transfuse is hbg trends below 6. Ptdenies dizziness. Potassium 5.3 and pt receiving scheduled Lokelma. Safety precautions in place with purposeful hourly rounding performed. Please refer to MAR and biophysical for further assessment.. Portable XR Chest Views * BHSPowerscribe , CIS S: TRANSCRIBE Blake Garcia MD: VERIFY Event Display: Result: Authored Date: [id number] Chest Portable Hx of Present Illness: pt with sickle cell cisis and given 6mg of dilaudid, pt endorsed respiratorydepressionj needing to be on 8L oxymask. Pt currently weaned down to 5L NC which is pts baseline; Reason: Shortness of Breath; Clinical Question(s): CHF COMPARISON: X-ray 07/29/2021 FINDINGS: LINES AND TUBES: Right internal jugular Port-A-Cath tip in lower SVC. LUNGS AND PLEURA: Unchanged coarse interstitial opacities with basilar predominance. No focal consolidation or volumeloss. No pleural effusion. No pneumothorax. HEART, MEDIASTINUM AND GARRETT: Heart is normal in size. Normal mediastinal and hilar contour. BONES AND SOFT TISSUES: No acute abnormality. IMPRESSION: Chronic interstitial changes without superimposed pneumonia or effusion. WSN: [id number] Ordering Physician: Abel Griffin Dictated By: Blake Garcia MD Dictated Date/Time: 02/18/22 11:02 p Reviewed By: Blake Garcia MD Signed By: Blake Garcia MD Signed Date/Time: 02/18/22 11:02 pm Transcribed By: PRASHANT Transcribed Date/Time: 02/18/22 11:01 pm Patient Care team information Care Team Personnel Name: Jennifer Zuletaricia Position: [facility] Onco RN Member Role: Primary Care Nurse Name: Naila Hinds RN Position: S RN Member Role: Primary Care Nurse Name: Marisa Rosario RN Position: S RN Member Role: Primary Care Nurse Name: Carmen Hdez RN Position: [facility] ED RN W/OE and Tasks Member Role: Primary Care Nurse Name: Jordon Cruz RN Position: [facility] ED RN W/OE and Tasks Member Role: Primary Care Nurse Name: Daisy Rushing RN Position: S RN Member Role: Primary Care Nurse Name: Taran Caldera RN Position: S RN Member Role: Primary Care Nurse Name: Corinna Fajardo RN Position: [facility] PCO RN Member Role: Primary Care Nurse Name: Ira Apodaca RN Position: [facility] ED RN W/OE and Tasks Member Role: Primary Care Nurse Name: Melisa RNEstefany Position: [facility] RN Member Role: Primary Care Nurse Name: Idania More RN Position: [facility] RN Member Role: Primary Care Nurse Name: Jessica Schmidt RN Position: [facility] RN Member Role: Primary Care Nurse Name: Paola Rinaldi RN Position: [facility] RN Supv Member Role: Primary Care Nurse Name: Lian Joy RN Position: [facility] RN Member Role: Primary Care Nurse Name: Nikkie Sommers RN Position: [facility] RN Supv Member Role: Primary Care Nurse Name: Jordan WARDROBE ATTENDANTJasmine Position: [facility] Associate Professional Member Role: Primary Care Nurse Address: Address: [address] [place] [id number]- Name: Rivka Cook RN Position: [facility] RN Member Role: Primary Care Nurse Name: Daisy Brower RN Position: [facility] RN Member Role: Primary Care Nurse Name: Kimberly Skinner RN Position: [facility] RN Member Role: Primary Care Nurse Name: Abhishek Johnson RN Position: [facility] RN Member Role: Primary Care Nurse Name: Lesia Cuevas MD Position: [facility] Resident Member Role: PCP Address: Address: [address] [place] [id number]- Name: Rene Pham RN Position: [facility] RN Member Role: Primary Care Nurse Name: Barbara Rae RN Position: [facility] RN Member Role: Primary Care Nurse Name: Ina Renee RN Position: [facility] RN Member Role: Primary Care Nurse Name: Chel Torres RN Position: [facility] RN Member Role: Primary Care Nurse Name: Yesica Delong RN Position: [facility] ED RN W/OE and Tasks Member Role: Primary Care Nurse Name: Vy Rogers RN Position: [facility] RN Member Role: Primary Care Nurse Name: Paula Earl RN Position: [facility] RN Member Role: Primary Care Nurse Name: Susan Miller RN Position: [facility] SN RN Member Role: Primary Care Nurse Name: Silva Colin RN Position: [facility] RN Supv Member Role: Primary Care Nurse Name: Pao Key Position: [facility] RN Member Role: Primary Care Nurse Name: Maris Trevino RN Kate Position: [facility] ED RN W/OE and Tasks Member Role: Primary Care Nurse Name: Steph Gordillo RN Position: [facility] OB RN Member Role: Primary Care Nurse Name: Rene Ramos DO Position: [facility] Renal MD Member Role: Lifetime Consulting Physician Address: Address: [address] [place], [place] [address] [place], [place] [address] Name: Ryder Matthews Position: [facility] RN Member Role: Primary Care Nurse Name: Mary Correia RN Position: [facility] ED RN W/OE and Tasks Member Role: Primary Care Nurse Name: Tierra Razo RN Position: [facility] RN Member Role: Primary Care Nurse Name: Librado Saucedo RN Position: [facility] RN Member Role: Primary Care Nurse Name: Laron Davenport III, RN Position: [facility] RN Member Role: Primary Care Nurse Name: Danya Govea RN Position: [facility] RN Member Role: Primary Care Nurse Name: Idania Millard RN Position: [facility] RN Member Role: Primary Care Nurse Name: Blake Grant RN Position: [facility] SN RN Member Role: Primary Care Nurse Name: Mariella Ojeda RN Position: [facility] RN Member Role: Primary Care Nurse Name: Ana Do RN Position: [facility] RN Member Role: Primary Care Nurse Name: Yaquelin Dawkins RN Position: [facility] RN Member Role: Primary Care Nurse Name: Cari Khan RN Position: [facility] RN Member Role: Primary Care Nurse Name: Dequan Elliott RN Position: [facility] ED RN W/OE and Tasks Member Role: Primary Care Nurse Name: Esmer Rankin RN Position: [facility] PCO RN Member Role: Primary Care Nurse Name: Suzanna Timmons RN Position: [facility] RN Member Role: Primary Care Nurse Name: Kaylene Maier RN Position: [facility] RN Supv Member Role: Primary Care Nurse Name: Juno Torres RN Position: [facility] RN Member Role: Primary Care Nurse Name: Yojana Dior RN Position: [facility] RN Member Role: Primary Care Nurse Name: Farideh Balderas RN Position: [facility] Senior Ui Developer Member Role: Primary Care Nurse Name: Roxana Ann RN Position: [facility] RN Member Role: Primary Care Nurse Name: Derick Calixto RN Position: [facility] RN Member Role: Primary Care Nurse Name: Fariba Bradley RN Position: [facility] RN Member Role: Primary Care Nurse Name: Fariba Ornelas RN Position: [facility] ED RN W/OE and Tasks Member Role: Primary Care Nurse Name: Steph Tierney RN Position: [facility] RN Member Role: Primary Care Nurse Name: Portia Baires RN Position: [facility] RN Member Role: Primary Care Nurse Name: Isidro Valle RN Position: [facility] RN Supv Member Role: Primary Care Nurse Name: Leny Shanks RN Position: [facility] RN Supv Member Role: Primary Care Nurse Name: Steph Smith RN Position: [facility] RN Member Role: Primary Care Nurse Name: Casandra Robbins RN Position: [facility] RN Supv Member Role: Primary Care Nurse Name: Maris Crowell RN Position: [facility] RN Member Role: Primary Care Nurse Name: Coni Romero LPN Position: [facility] RN Member Role: Primary Care Nurse Name: Abigail Rabago RN Position: [facility] RN Member Role: Primary Care Nurse Name: Halina Burger RN Position: [facility] Onco RN Member Role: Primary Care Nurse Name: Linda Lockwood RN Position: [facility] Senior Ui Developer Member Role: Primary Care Nurse Name: Ana Milian RN Position: [facility] RN Supv Member Role: Primary Care Nurse Name: Dedra Chatman RN, I Position: [facility] RN Member Role: Primary Care Nurse Name: David Oquendo RN Position: [facility] RN Supv Member Role: Primary Care Nurse Name: Leonela FLYNN Attending Position: [facility] ED Medicine Name: Tara Estevez RN Position: [facility] ED RN W/OE and Tasks Member Role: Patient Care Provider Name: Kev Bernard Position: [facility] ED TA TIFFANIE Name: Bennett Carmona RN Position: [facility] ED RN W/OE and Tasks Member Role: Patient Care Provider Care Team Related Persons Name: JACKIE ALANIZ Address: home [address] [place] [address] Name: JUNO MENA Address: home [address] [place] [address] Name: JOVITA VIZCAINO Address: home [address] [place] [address] Name: KARL VIZCAINO Address: [place] [address] Name: EZEKIEL VIZCAINO Address: home [address] [place] [address] Name: SHAD TUBBS Address: home [address] [place] [address]
--- OUTSIDE RECORDS SUMMARY | 2022-12-14 05:57 | XMS_ITS | Continuity of Care Document ---
Author Name Unknown Organization [facility] Address [address] [place] [address]- Care Team Providers Care Director Of Group Sales Name Role Phone Lesia Cuevas MD Primary Care Physician Encounter [facility] Date(s): 04/11/22 - 06/15/[address] [address]- Attending Physician: Not on Staff, Attending MD [...] Comment: normal saline diluent added lot number [id number] expires 07/23/2022 2Result Comment: Afluria Medications allopurinol 100 mg oral tablet 100 mg, 1, tablet, By Mouth, Daily, # 90 tablet, Refills 1, Tot. Refills 1, Maintenance, 10/24/21 13:18:00 EDT, Route to Pharmacy Electronically, [facility]/pharmacy #[id number], Partial fill upon patient requestif the prescription is for a schedule II opioid lynn... Start Date: 10/24/21 Status: Ordered clindamycin 1% topical lotion 1 application, Topically, 2 times a day, apply to L armpit lesions/bumps twice per day until healed, # 60 mL, 0 Refills, Maintenance, 10/24/21 15:35:00 EDT, Lotion, [facility]/pharmacy #[id number], Partial fill upon patient request if the prescription is for a amado... Start Date: 10/24/21 Status: Ordered Daily Lazara oral tablet 1 tablet, By Mouth, Daily Start Date: 07/03/21 Status: Ordered diphenhydrAMINE 25 mg oral capsule 1 capsule, By Mouth, 3 times a day, PRN NEEDED FOR ITCHING, # 90 capsule, 2 Refills, Maintenance, 05/14/22 15:26:00 EDT, [facility], 163, cm, 05/12/22 16:01:00 EDT, Height, 61.5, kg, 05/10/2316:29:00 EDT, Dry Weight Start Date: 05/14/22 Status: Ordered Estrace Vaginal Cream 0.1 mg/g = 1 Gm, Vaginally, Daily at bedtime, # 90 Gm, 3 Refills, Maintenance, 12/06/21 14:57:00 EDT, [facility]/pharmacy #[id number], Partial fill upon patient request if the prescription is for a schedule II opioid drug., 160, cm, 12/06/21 14:22:00 EDT, Height, 72.9, kg,... Start Date: 12/06/21 Status: Ordered Eucerin Plus topical lotion 1 application, Topically, 2 times a day, PRN for dry skin, # 180 mL, 0 Refills, Maintenance, 03/12/22 16:28:00 EST, Lotion, [facility]/pharmacy #[id number], Partial fill upon patient request if the prescription is for a schedule II opioid drug., 1 application Topi... Start Date: 03/12/22 Status: Ordered folic acid 1 mg oral tablet 1 mg, 1, tablet, By Mouth, Daily, # 30 tablet, Refills 0, Tot. Refills 0, Maintenance, 05/12/22 15:17:00 EDT, Route to Pharmacy Electronically, [facility]/pharmacy #[id number], Partial fill upon patient request if the prescription is for a schedule II opioid drug.... Start Date: 05/12/22 Status: Ordered gabapentin 300 mg oral capsule 300 mg, 1, capsule, By Mouth, 3 times a day, # 90 capsule, Refills 0, Tot. Refills 0, Maintenance, 10/24/21 12:29:00 EDT, Route to Pharmacy Electronically, [facility]/pharmacy #[id number], Partial fill upon patient request if [...] 5 Refills, Maintenance, 10/24/21 12:29:00 EDT, Tablet, [facility]/pharmacy #[id number], Partial fill upon patient request if the prescription is for a schedule II opioid drug., 160,... Start Date: 10/24/21 Status: Ordered loratadine 10 mg oral tablet 10 mg, 1, tablet, By Mouth, Daily, # 90 tablet, Refills 11, Tot. Refills 11, Maintenance, 04/11/22 15:56:00 EST, Route to Pharmacy Electronically, [facility]/pharmacy #[id number], 163, cm, 04/11/22 15:32:00 EST, Height, 60.8, kg, 02/19/22 19:05:00 EST, Dry Weight Start Date: 04/11/22 Status: Ordered MiraLax oral powder for reconstitution = 17 Gm, By Mouth, Daily, dissolve in water before taking, # 255 Gm, 1 Refills, Maintenance, 04/11/22 21:05:00 EST, REC Powder, [facility]/pharmacy #[id number], Partial fill upon patient request if the prescription is for a schedule II opioid drug., 17 Gm By Mouth... Start Date: 04/11/22 Status: Ordered nicotine 4 mg oral transmucosal gum See Instructions, CHEW 1 PIECE EVERY 2 HOURS NEEDED FOR SMOKING CESSATION, # 200 gum, 0 Refills,[id number], 160, cm, 08/01/21 21:18:00 EDT, Height, 72.9, kg, 08/01/21 21:18:00 EDT, Dry Weight Start Date: 08/05/21 Status: Ordered omeprazole 20 mg oral enteric coated capsule 1 capsule = 20 mg, By Mouth, Daily, # 90 capsule, 10 Refills, Maintenance, 10/24/21 12:29:00 EDT, [facility]/pharmacy #[id number], Partial fill upon patient request if the prescription is for a schedule II opioiddrug., 160, cm, 10/24/21 11:46:00 EDT, Height, 72.9... Start Date: 10/24/21 Status: Ordered oxyCODONE 10 mg oral tablet 2 tablet = 20 mg, By Mouth, Every 4 hours, PRN Pain , Moderate, # 84 tablet, 0 Refills, Maintenance, 06/13/22 10:46:00 EDT, Tablet, [facility]/pharmacy #1130, Partial fill upon patient request if [...] 05/12/22 15:17:00 EDT, Route to Pharmacy Electronically, [facility]/pharmacy #[id number], Partial fill upon patient request if the prescription is for a schedule II opioid drug... Start Date: 05/12/22 Status: Ordered QUEtiapine 25 mg oral tablet 1, tablet, By Mouth, 2 times a day, PRN, # 90 tablet, Refills 0, Tot. Refills 0, Maintenance, NEEDED FOR AGITATION, 01/01/22 10:03:00 EST, Route to Pharmacy Electronically, [facility]/pharmacy #[id number], 160, cm, 10/24/21 11:46:00 EDT, Height, 72.9, kg, 08/01... Start Date: 01/01/22 Status: Ordered sodium zirconium cyclosilicate 10 g oral powder for reconstitution = 5 Gm, By Mouth, Every Thursday and , # 30 each, 0 Refills, Maintenance, 02/24/22 10:38:00 EST, [facility]/pharmacy #[id number], Partial fill upon patient request if [...] Care Team Personnel Name: Indiana Zuleta Position: [facility] Onco RN Member Role: Primary Care Nurse Name: Naila Hinds RN Position: [facility] RN Member Role: Primary Care Nurse Name: Marisa Rosario RN Position: [facility] RN Member Role: Primary Care Nurse Name: Carmen Hdez RN Position: [facility] ED RN W/OE and Tasks Member Role: Primary Care Nurse Name: Jordon Cruz RN Position: [facility] ED RN W/OE and Tasks Member Role: Primary Care Nurse Name: Daisy Rushing RN Position: [facility] RN Member Role: Primary Care Nurse Name: Corinna Fajardo RN Position: [facility] PCO RN Member Role: Primary Care Nurse Name: Ira Apodaca RN Position: [facility] ED RN W/OE and Tasks Member Role: Primary Care Nurse Name: Estefany Vincent RN Position: [facility] RN Member Role: Primary Care Nurse Name: Idania More RN Position: [facility] RN Member Role: Primary Care Nurse Name: Paola Rinaldi RN Position: [facility] RN Supv Member Role: Primary Care Nurse Name: Lian Joy RN Position: [facility] RN Member Role: Primary Care Nurse Name: Nikkie Sommers RN Position: [facility] RN Supv Member Role: Primary Care Nurse Name: Jasmine Ortega NP Position: [facility] Associate Professional Member Role: Primary Care Nurse Address: Address: [address] [place] [address]- Name: Rivka Cook RN Position: [facility] RN Member Role: Primary Care Nurse Name: Daisy Brower RN Position: [facility] RN Member Role: Primary Care Nurse Name: Kimberly Skinner RN Position: [facility] RN Member Role: Primary Care Nurse Name: Abhishek Johnson RN Position: [facility] RN Member Role: Primary Care Nurse Name: Lesia Cuevas MD Position: [facility] Resident Member Role: PCP Address: Address: [address] [place] [address]- [place] Name: Rene Pham RN Position: [facility] RN Member Role: Primary Care Nurse Name: Barbara Rae RN Position: [facility] RN Member Role: Primary Care Nurse Name: Ina Renee RN Position: [facility] RN Member Role: Primary Care Nurse Name: Chel Torres RN Position: [facility] RN Member Role: Primary Care Nurse Name: Yesica Delong RN Position: [facility] ED RN W/OE and Tasks Member Role: Primary Care Nurse Name: Vy Rogers RN Position: [facility] RN Member Role: Primary Care Nurse Name: Paula Earl RN Position: [facility] RN Member Role: Primary Care Nurse Name: Susan Miller RN Position: [facility] SN RN Member Role: Primary Care Nurse Name: Silva Colin RN Position: [facility] RN Supv Member Role: Primary Care Nurse Name: Pao Key Position: [facility] RN Member Role: Primary Care Nurse Name: Maris Trevino RN Position: [facility] ED RN W/OE and Tasks Member Role: Primary Care Nurse Name: Steph Gordillo RN Position: [facility] OB RN Member Role: Primary Care Nurse Name: Rene Ramos DO Position: [facility] Renal MD Member Role: Lifetime Consulting Physician Address: Address: [address] [facility] [address] [facility] [place] [address]- Name: Byron , Arieal Position: [facility] RN Member Role: Primary Care Nurse Name: Mary Correia RN Position: [facility] ED RN W/OE and Tasks Member Role: Primary Care Nurse Name: Tierra Razo RN Position: [facility] RN Member Role: Primary Care Nurse Name: Librado Saucedo RN Position: [facility] RN Member Role: Primary Care Nurse Name: Laron Davenport III, RN Position: [facility] RN Member Role: Primary Care Nurse Name: Danya Govea RN Position: [facility] RN Member Role: Primary Care Nurse Name: Idania Millard RN Position: [facility] RN Member Role: Primary Care Nurse Name: Blake Grant RN Position: [facility] SN RN Member Role: Primary Care Nurse Name: Mariella Ojeda RN Position: [facility] RN Member Role: Primary Care Nurse Name: Ana Do RN Position: [facility] RN Member Role: Primary Care Nurse Name: Yaquelin Dawkins RN Position: [facility] RN Member Role: Primary Care Nurse Name: Cari Khan RN Position: [facility] RN Member Role: Primary Care Nurse Name: Dequan Elliott RN Position: [facility] SN RN Member Role: Primary Care Nurse Name: Esmer Rankin RN Position: [facility] PCO RN Member Role: Primary Care Nurse Name: Juno oTrres RN Position: [facility] Onco RN Member Role: Primary Care Nurse Name: Yojana Dior RN Position: [facility] RN Member Role: Primary Care Nurse Name: Farideh Balderas RN Position: [facility] Stone Decorator Member Role: Primary Care Nurse Name: Roxana Ann RN Position: [facility] RN Member Role: Primary Care Nurse Name: Vanessa Shelton RN Position: [facility] RN Member Role: Primary Care Nurse Name: Derick Calixto RN Position: [facility] RN Member Role: Primary Care Nurse Name: Fariba Bradley RN Position: [facility] RN Member Role: Primary Care Nurse Name: Fariba Ornelas RN Position: [facility] ED RN W/OE and Tasks Member Role: Primary Care Nurse Name: Steph Tierney RN Position: [facility] RN Member Role: Primary Care Nurse Name: Portia Baires RN Position: [facility] RN Member Role: Primary Care Nurse Name: Isidro Valle RN Position: [facility] RN Supv Member Role: Primary Care Nurse Name: Leny Shanks RN Position: [facility] RN Supv Member Role: Primary Care Nurse Name: Steph Smith RN Position: [facility] RN Member Role: Primary Care Nurse Name: Casandra Robbins RN Position: [facility] RN Supv Member Role: Primary Care Nurse Name: Maris Crowell RN Position: [facility] RN Member Role: Primary Care Nurse Name: Coni Romero LPN Position: [facility] RN Member Role: Primary Care Nurse Name: Abigail Rabago RN Position: [facility] RN Member Role: Primary Care Nurse Name: Halina Burger RN Position: [facility] Onco RN Member Role: Primary Care Nurse Name: Linda Lockwood RN Position: [facility] Member Role: Primary Care Nurse Name: Dedra Chatman RN, I Position: [facility] RN Member Role: Primary Care Nurse Care Team Related Persons Name: JACKIE ALANIZ Address: home [address] [place] [address] Name: JUNO MENA Address: home [address] [place] [address] Name: JOVITA GALARZA Address: home [address] [place] [address] Name: KARL GALARZA Address: home [address] [place] [address] Name: EZEKIEL GALARZA Address: home [address] [place] [address] Name: MICHAEL BARRETT Address: home [address] [place] [address] Name: SHAD TUBBS Address: home [address] [place] [address]
--- OUTSIDE RECORDS SUMMARY | 2022-12-14 05:57 | XMS_ITS | Continuity of Care Document ---
Author Name Unknown Organization [facility] Address [address] [place] [id number]- Care Team Providers Care Flanging Operator Name Role Phone Lesia Cuevas MD Primary Care Physician [place] [facility] [place] - 02/18/[address] [address] Discharge Disposition: Discharge Spec Fac/Child or Cancer Ctr Attending Physician: Suzan ARCHIBALD(Hem/Onc), Jordon Lainez Admitting Physician: Suzan ACRHIBALD(Hem/Onc)Jordon Referring Physician: Suzan ARCIHBALD(Hem/Onc)Jordon Allergies, Adverse Reactions, Alerts Substance Reaction Severity [...] Comment: normal saline diluent added lot number [id number] expires 07/23/2022 2Result Comment: Afluria Medications allopurinol 100 mg oral tablet 100 mg, 1, tablet, By Mouth, Daily, # 90 tablet, Refills 1, Tot. Refills 1, Maintenance, 10/24/21 13:18:00 EDT, Route to Pharmacy Electronically, [facility]/pharmacy #[id number], Partial fill upon patient requestif the prescription is for a schedule II opioid lynn... Start Date: 10/24/21 Status: Ordered clindamycin 1% topical lotion 1 application, Topically, 2 times a day, apply to L armpit lesions/bumps twice per day until healed, # 60 mL, 0 Refills, Maintenance, 10/24/21 15:35:00 EDT, Lotion, [facility]/pharmacy #[id number], Partial fill upon patient request if the prescription is for a amado... Start Date: 10/24/21 Status: Ordered Daily Lazara oral tablet 1 tablet, By Mouth, Daily Start Date: 07/03/21 Status: Ordered Dilaudid Inj 6 mg, Injection, IV Push Slowly, Every 2 hours, PRN for Pain , Severe, Routine, 02/18/22 13:14:00 EST Start Date: 02/18/22 Stop Date: 02/18/22 Status: Discontinued diphenhydrAMINE 25 mg oral capsule 1 capsule, By Mouth, 3 times a day, PRN NEEDED FOR ITCHING, # 100 capsule, 1 Refills, Maintenance, 10/24/21 12:29:00 EDT, [facility]/pharmacy #[id number], 160, cm, 10/24/21 11:46:00 EDT, Height, 72.9, kg, 08/01/21 21:18:00 EDT, Dry Weight Start Date: 10/24/21 Status: Ordered Eliquis 5 mg oral tablet 1 tablet = 5 mg, By Mouth, 2 times a day, # 60 tablet, 0 Refills, Maintenance, 10/24/21 12:29:00 EDT, Tablet, [facility]/pharmacy #[id number], Partial fill upon [...] II opioid drDestinee. Start Date: 08/29/21 Status: Ordered LORazepam 1 mg oral tablet 1 tablet = 1 mg, By Mouth, 2 times a day, PRN as needed for anxiety, Limited Rx. Please contact at [facility] if ongoing need., # 5 tablet, 0 Refills, Maintenance, 10/15/21 16:13:00 EDT, Tablet, [facility]... Start Date: 10/15/21 Status: Ordered nicotine 4 mg oral transmucosal gum See Instructions, CHEW 1 PIECE EVERY 2 HOURS NEEDED FOR SMOKING CESSATION, # 200 gum, 0 Refills,[id number], 160, cm, 08/01/21 21:18:00 EDT, Height, 72.9, kg, 08/01/21 21:18:00 EDT, Dry Weight Start Date: 08/05/21 Status: Ordered omeprazole 20 mg oral enteric coated capsule 1 capsule = 20 mg, By Mouth, Daily, # 90 capsule, 10 Refills, Maintenance, 10/24/21 12:29:00 EDT, [facility]/pharmacy #[id number], Partial fill upon patient request if the prescription is for a schedule II opioiddrug., 160, cm, 10/24/21 11:46:00 EDT, Height, 72.9... Start Date: 10/24/21 Status: Ordered oxyCODONE 10 mg oral tablet 2 tablet = 20 mg, By Mouth, Every 4 hours, PRN Pain , Moderate, # 84 tablet, 0 Refills, Maintenance, 02/12/22 9:15:00 EST, Tablet, [facility]/pharmacy #[id number], Partial fill upon patient request if the prescription is for a schedule II opioid drug., 160, cm, 10... Start Date: 02/12/22 Status: Ordered ProAir HFA 90 mcg/inh inhalation aerosol 2 puffs, Inhalation, Every 6 hours Start Date: 07/03/21 Status: Ordered QUEtiapine 25 mg oral tablet 1, tablet, By Mouth, 2 times a day, PRN, # 90 tablet, Refills 0, Tot. Refills 0, Maintenance, NEEDED FOR AGITATION, 01/01/22 10:03:00 EST, Route to Pharmacy Electronically, [facility]/pharmacy #[id number], 160, cm, 10/24/21 [...] oldest [Reference Range]: 1 2 3 Height 160 cm (02/18/22 7:14 PM) 160 cm (02/18/22 4:26 PM) 160 cm (02/18/22 1:40 PM) Weight 60.5 kg (02/18/22 1:40 PM) Oxygen Saturation [94-100 %] 93 % *L* (02/18/22 7:14 PM) 95 % (02/18/22 4:26 PM) Pulse Rate [55-90 bpm] 108 bpm *H* (02/18/22 7:14 PM) 104 bpm *H* (02/18/22 4:26 PM) Blood Pressure [90-138/55-84 mm Hg] 109/50mm Hg (02/18/22 7:14 PM) 110/60mm Hg (02/18/22 4:26 PM) Respiratory Rate [16-30 br/min] 20 br/min (02/18/22 7:14 PM) 17 br/min (02/18/22 4:26 PM) 16 br/min (02/18/22 1:50 PM) Temperature [96.8-100.4 DegF] 97.4 DegF (02/18/22 7:14 PM) 98.8 DegF (02/18/22 4:26 PM) Liters per Minute 2 L/min (02/18/22 7:14 PM) 4 L/min (02/18/22 4:26 PM) Mode of Delivery (Oxygen) Simple face ma sk (02/18/22 7:14 PM) Nasal cannula (02/18/22 4:26 PM) Blood pressure sites Arm, left (02/18/22 7:14 PM) Arm, left (02/18/22 4:26 PM) Temperature Route Oral (02/18/22 7:14 PM) Oral (02/18/22 4:26 PM) Dry Weight 60.5 kg (02/18/22 1:40 PM) Social History Social History Type Response Smoking Status Former smoker, quit more than 30 days ago entered on: 12/26/20 Sex Hospital Progress note * Destiny Macias RN: PERFORM, SIGN, VERIFY Event Display: Progress Note Hospital Authored Date: Patient: JOSE GALARZA Age: 52 years Sex: Female : 1970 Associated Diagnoses: None Author: Destiny Macias RN Findings Evaluation Assumed the care of the patient at 1800. Patient agitated, thrashing in bed, pulling the nasal cannula, scratching herself (stating she is itchy); however- easily re-directable, following commands after some redirection. At times, the patient gradually almost sliding out of her bed, raising safety concerns. Redirection effects short-lasting; patient repeatedly pulling her NC, had to switch to simple face mask. Patient saturating at 70s on RA; had to increase oxygen to 6 liters to maintain the saturation of 93%. D5LR still infusing at 75 mL/hr, as ordered. As at 1999 the patient's status had not significantly changed, did communicate the information to juancarlos Mares at 2009, who advised to bring the patient down to ED. ED charge nurse was called; did state that it is not safe for the patient to come to ED; advised to call the AIR [employer]IL [employer] team to advocate for the patient. [employer] CONDITIONING COIL ASSEMBLER RN did assess the patient and obtained a spot for her in ED. Patient transferred from the floor to ED via stretcher with the [employer]IL [employer] nurse around 2119. . * Fariba Bradley RN: PERFORM, SIGN, VERIFY Event Display: Progress Note Hospital Authored Date: Patient: JOSE GALARZA Age: 52 years Sex: Female : 1970 Associated Diagnoses: None Author: Fariba Bradley RN Sickle cell 6 hour pain and hydration infusion protocol started at 1400. Patient needed ultrasound guided IV placed in her right inner FA. D5LR @125 started and still running at the time of this note, 4 hours later. At 1400, 6mg IV dilaudid, 25mg IV benadryl and 4mg Zofran ODT were given to patient, and she fell asleep in about an hour. Her Aunt was at her bedside, and left to go home to check on kids. At 1538, this RN came back to check on patient, and PCT was taking next set of VS. This RN went to retrieve the next dose of 6mg IV dilaudid, when the PCT knocked emergently on the med room door stating that the patient's O2 sat was only in the 50's. Upon return to the bedside (without meds),the patient was found thrashing around the bed, confused, disoriented, taking all of her clothes off, pulling at IV line, pulling O2 nasal cannula off, scratching at her body all over. She was swinging her arms out horizontally, swinging legs off the the bed on both sides, crying, scratching face, saying Help me, I'm so itchy all over, it's starting, please stop...and repeating herself over and over again. This continued for an hour and 15 minutes. This RN attempted to comfort the patient and calm her by massaging lotion into her dry skin; her feet, legs, abdomen, back, neck and arms; and talking in a calm voice. The only thing that calmed her down was cradling her and speaking to her softly and telling her she was ok. She would immediately become scared, agitated, and confused and start thrashing and scratching at her skin and face again when this RN tried to let her go to lay down torest. [employer] CONDITIONING [employer]IL ASSEMBLER consult RN came to bedside to evaluate safety and status of patient. Dr. Mares was also paged and came to bedside, and recommended no more meds be given to her, but to just let her calmdown and ride it out . He offered a constant medical csr order, as well as the option of admitting her to medical services as an inpatient and keeping her in house if she remained unstable. As of now,she is finally resting, asleep. Her VS are stable, her O2 sat is 99% and she is wearing the nasal cannula. Throughout all of this, her IV access was protected and she is still receiving the D5LR @125m l/hr. Her Aunt called towards the end of this episode and was updated, and was able to come in, andis now sitting bedside with the patient. Dr. Mares stated that she has done this, although infrequently, in the past in response to her meds. Her aunt stated that she often complains about all over body itching in response to her meds. She is O2 dependent on 5LNC at home, and is currently on that dose now. According to Dr. Mares, if she is stable, she can be discharged after 8pm back to home. If she is still confused and needs admitting, please cortext him and he will allow her to stay and will consult medical service to admit her. Patient Care team information Care Team Personnel Name: Indiana Zuleta Position: [facility] Onco RN Member Role: Primary Care Nurse Name: Naila Hinds RN Position: S RN Member Role: Primary Care Nurse Name: Marisa Rosario RN Position: [facility] RN Member Role: Primary Care Nurse Name: Carmen Hdez RN Position: [facility] ED RN W/OE and Tasks Member Role: Primary Care Nurse Name: Jordon Cruz RN Position: [facility] ED RN W/OE and Tasks Member Role: Primary Care Nurse Name: Daisy Rushing RN Position: [facility] RN Member Role: Primary Care Nurse Name: Taran Caldera RN Position: [facility] RN Member Role: Primary Care Nurse Name: Corinna Fajardo RN Position: [facility] PCO RN Member Role: Primary Care Nurse Name: Ira Apodaca RN Position: [facility] ED RN W/OE and Tasks Member Role: Primary Care Nurse Name: Melisa RNEstefany Position: [facility] RN Member Role: Primary Care Nurse Name: Idania More RN Position: [facility] RN Member Role: Primary Care Nurse Name: Jessica Schmidt RN Position: [facility] RN Member Role: Primary Care Nurse Name: Paola Rinaldi RN Position: [facility] RN Supv Member Role: Primary Care Nurse Name: Lian Joy RN Position: [facility] RN Member Role: Primary Care Nurse Name: Nikkie Sommers RN Position: [facility] RN Supv Member Role: Primary Care Nurse Name: Jasmine Ortega NP Position: [facility] Associate Professional Member Role: Primary Care Nurse Address: Address: [address] [place] [id number]- Name: Rivka Cook RN Position: [facility] RN Member Role: Primary Care Nurse Name: Daisy Brower RN Position: [facility] RN Member Role: Primary Care Nurse Name: Kimberly Skinner RN Position: [facility] RN Member Role: Primary Care Nurse Name: Abhishek Johnson RN Position: [facility] RN Member Role: Primary Care Nurse Name: Lesia Cuevas MD Position: [facility] Resident Member Role: PCP Address: Address: [address] [place] [id number]- Name: Rene Pahm RN Position: [facility] RN Member Role: Primary Care Nurse Name: Barbara Rae RN Position: [facility] RN Member Role: Primary Care Nurse Name: Ina Renee RN Position: [facility] RN Member Role: Primary Care Nurse Name: Yesica Delong RN Position: [facility] ED RN W/OE and Tasks Member Role: Primary Care Nurse Name: Vy Rogers RN Position: [facility] RN Member Role: Primary Care Nurse Name: Paula Earl RN Position: [facility] RN Member Role: Primary Care Nurse Name: Susan Miller RN Position: [facility] SN RN Member Role: Primary Care Nurse Name: Silva Colin RN Position: [facility] RN Supv Member Role: Primary Care Nurse Name: Pao Key Position: [facility] RN Member Role: Primary Care Nurse Name: Maris Trevino RN Position: [facility] ED RN W/OE and Tasks Member Role: Primary Care Nurse Name: Steph Gordillo RN Position: [facility] OB RN Member Role: Primary Care Nurse Name: Rene Ramos DO Position: [facility] Renal MD Member Role: Lifetime Consulting Physician Address: Address: [address] [place], [place] [address] [place] [address]- Name: Ryder Matthews Position: [facility] RN Member Role: Primary Care Nurse Name: Mary Correia RN Position: [facility] ED RN W/OE and Tasks Member Role: Primary Care Nurse Name: Tierra Razo RN Position: [facility] RN Member Role: Primary Care Nurse Name: Librado Saucedo RN Position: [facility] RN Member Role: Primary Care Nurse Name: Laron Davenport III, RN Position: [facility] RN Member Role: Primary Care Nurse Name: Danya Govea RN Position: [facility] RN Member Role: Primary Care Nurse Name: Idania Millard RN Position: [facility] RN Member Role: Primary Care Nurse Name: Blake Grant RN Position: [facility] SN RN Member Role: Primary Care Nurse Name: Mariella Ojeda RN Position: [facility] RN Member Role: Primary Care Nurse Name: Ana Do RN Position: [facility] RN Member Role: Primary Care Nurse Name: Yaquelin Dawkins RN Position: [facility] RN Member Role: Primary Care Nurse Name: Cari Khan RN Position: [facility] RN Member Role: Primary Care Nurse Name: Dequan Elliott RN Position: [facility] SN RN Member Role: Primary Care Nurse Name: Esmer Rankin RN Position: [facility] PCO RN Member Role: Primary Care Nurse Name: Suzanna Timmons RN Position: [facility] RN Member Role: Primary Care Nurse Name: Kaylene Maier RN Position: [facility] RN Supv Member Role: Primary Care Nurse Name: Yojana Dior RN Position: [facility] RN Member Role: Primary Care Nurse Name: Farideh Balderas RN Position: [facility] Java Developer Analyst Member Role: Primary Care Nurse Name: Roxana Ann RN Position: [facility] RN Member Role: Primary Care Nurse Name: Derick Calixto RN Position: [facility] RN Member Role: Primary Care Nurse Name: Fariba Bradley RN Position: [facility] RN Member Role: Primary Care Nurse Name: Fariba Ornelas RN Position: [facility] ED RN W/OE and Tasks Member Role: Primary Care Nurse Name: Steph Tierney RN Position: [facility] RN Member Role: Primary Care Nurse Name: Portia Baires RN Position: [facility] RN Member Role: Primary Care Nurse Name: Isidro Valle RN Position: [facility] RN Supv Member Role: Primary Care Nurse Name: Leny Shanks RN Position: [facility] RN Supv Member Role: Primary Care Nurse Name: Steph Smith RN Position: [facility] RN Member Role: Primary Care Nurse Name: Casandra Robbins RN Position: [facility] RN Supv Member Role: Primary Care Nurse Name: Maris Crowell RN Position: [facility] RN Member Role: Primary Care Nurse Name: Coni Romero LPN Position: [facility] RN Member Role: Primary Care Nurse Name: Abigail Rabago RN Position: [facility] RN Member Role: Primary Care Nurse Name: Halina Burger RN Position: [facility] Onco RN Member Role: Primary Care Nurse Name: Linda Lockwood RN Position: [facility] Hospital Java Developer Analyst Member Role: Primary Care Nurse Name: Ana Milian RN Position: [facility] RN Supv Member Role: Primary Care Nurse Name: Dedra Chatman RN, I Position: [facility] RN Member Role: Primary Care Nurse Name: David Oquendo RN Position: [facility] RN Supv Member Role: Primary Care Nurse Name: Destiny Macias RN Position: [facility] RN Member Role: Patient Care Provider Care Team Related Persons Name: ALANIZ JACKIE Address: [address] [place] [address] Name: JUNO MENA Address: home [address] [place] [address] Name: JOVITA GALARZA Address: home [address] [place] [address] Name: KARL GALARZA Address: [place] [address] Name: EZEKIEL GALARZA Address: home [address] [place] [address] Name: SHAD TUBBS Address: home [address] [place] [id number]
--- OUTSIDE RECORDS SUMMARY | 2022-12-14 05:57 | XMS_ITS | Continuity of Care Document ---
Author Name Unknown Organization [facility] Pulmonary M edicine Address [facility] [address] [address]- Care Team Providers Care Tank Wagon Driver Name Role Phone Lesia Cuevas MD Primary Care Physician Encounter [facility] Date(s): 06/05/22 - 07/05/22 [facility] Pulmonary Medicine [address] [place] [id number] Allergies, Adverse Reactions, Alerts Substance [...] Comment: normal saline diluent added lot number [id number] expires 07/23/2022 2Result Comment: Afluria Medications allopurinol 100 mg oral tablet 100 mg, 1, tablet, By Mouth, Daily, # 90 tablet, Refills 1, Tot. Refills 1, Maintenance, 10/24/21 13:18:00 EDT, Route to Pharmacy Electronically, [id number], Partial fill upon patient requestif the prescription is for a schedule II opioid lynn... Start Date: 10/24/21 Status: Ordered clindamycin 1% topical lotion 1 application, Topically, 2 times a day, apply to L armpit lesions/bumps twice per day until healed, # 60 mL, 0 Refills, Maintenance, 10/24/21 15:35:00 EDT, Lotion, [facility][id number], Partial fill upon patient request if the prescription is for a amado... Start Date: 10/24/21 Status: Ordered Daily Lazara oral tablet 1 tablet, By Mouth, Daily Start Date: 07/03/21 Status: Ordered diphenhydrAMINE 25 mg oral capsule 1 capsule, By Mouth, 3 times a day, PRN NEEDED FOR ITCHING, # 90 capsule, 2 Refills, Maintenance, 05/14/22 15:26:00 EDT, [id number], 163, cm, 05/12/22 16:01:00 EDT, Height, 61.5, kg, 05/10/2316:29:00 EDT, Dry Weight Start Date: 05/14/22 Status: Ordered Estrace Vaginal Cream 0.1 mg/g = 1 Gm, Vaginally, Daily at bedtime, # 90 Gm, 3 Refills, Maintenance, 12/06/21 14:57:00 EDT, [facility]pharm[facility][id number], Partial fill upon patient request if the prescription is for a schedule II opioid drug., 160, cm, 12/06/21 14:22:00 EDT, Height, 72.9, kg,... Start Date: 12/06/21 Status: Ordered Eucerin Plus topical lotion 1 application, Topically, 2 times a day, PRN for dry skin, # 180 mL, 0 Refills, Maintenance, 03/12/22 16:28:00 EST, Lotion, [facility]pharmacy #[id number], Partial fill upon patient request if the prescription is for a schedule II opioid drug., 1 application Topi... Start Date: 03/12/22 Status: Ordered folic acid 1 mg oral tablet 1 mg, 1, tablet, By Mouth, Daily, # 30 tablet, Refills 0, Tot. Refills 0, Maintenance, 05/12/22 15:17:00 EDT, Route to Pharmacy Electronically, [facility]pharmacy #[id number], Partial fill upon patient request if the prescription is for a schedule II opioid drug.... Start Date: 05/12/22 Status: Ordered gabapentin 300 mg oral capsule 300 mg, 1, capsule, By Mouth, 3 times a day, # 90 capsule, Refills 0, Tot. Refills 0, Maintenance, 10/24/21 12:29:00 EDT, Route to Pharmacy Electronically, [facility]pharmacy #[id number], Partial fill upon patient request if [...] 5 Refills, Maintenance, 10/24/21 12:29:00 EDT, Tablet, [facility]/pharmacy #1130, Partial fill upon patient request if the prescription is for a schedule II opioid drug., 160,... Start Date: 10/24/21 Status: Ordered loratadine 10 mg oral tablet 10 mg, 1, tablet, By Mouth, Daily, # 90 tablet, Refills 11, Tot. Refills 11, Maintenance, 04/11/22 15:56:00 EST, Route to Pharmacy Electronically, [facility]pharmacy #[id number], 163, cm, 04/11/22 15:32:00 EST, Height, 60.8, kg, 02/19/22 19:05:00 EST, Dry Weight Start Date: 04/11/22 Status: Ordered MiraLax oral powder for reconstitution = 17 Gm, By Mouth, Daily, dissolve in water before taking, # 255 Gm, 1 Refills, Maintenance, 04/11/22 21:05:00 EST, REC Powder, [facility]/pharmacy #[id number], Partial fill upon patient request if the prescription is for a schedule II opioid drug., 17 Gm By Mouth... Start Date: 04/11/22 Status: Ordered nicotine 4 mg oral transmucosal gum See Instructions, CHEW 1 PIECE EVERY 2 HOURS NEEDED FOR SMOKING CESSATION, # 200 gum, 0 Refills,[id number], 160, cm, 08/01/21 21:18:00 EDT, Height, 72.9, kg, 08/01/21 21:18:00 EDT, Dry Weight Start Date: 08/05/21 Status: Ordered omeprazole 20 mg oral enteric coated capsule 1 capsule = 20 mg, By Mouth, Daily, # 90 capsule, 10 Refills, Maintenance, 10/24/21 12:29:00 EDT, [facility]pharmacy #[id number], Partial fill upon patient request if the prescription is for a schedule II opioiddrug., 160, cm, 10/24/21 11:46:00 EDT, Height, 72.9... Start Date: 10/24/21 Status: Ordered oxyCODONE 10 mg oral tablet 2 tablet = 20 mg, By Mouth, Every 4 hours, PRN Pain , Moderate, # 84 tablet, 0 Refills, Maintenance, 07/04/22 17:15:00 EDT, Tablet, [facility]/pharmacy #[id number], Partial fill upon patient request if the prescription is for a schedule II opioid drug., 163, cm, 0... Start Date: 07/04/22 Status: Ordered ProAir HFA 90 mcg/inh inhalation aerosol 2 puffs, Inhalation, Every 6 hours Start Date: 07/03/21 Status: Ordered pyridoxine 50 mg oral tablet 50 mg, 1, tablet, By Mouth, Daily, # 30 tablet, Refills 0, Tot. Refills 0, Maintenance, 05/12/22 15:17:00 EDT, Route to Pharmacy Electronically, [facility]pharmacy #[id number], Partial fill upon patient request if the prescription is for a schedule II opioid drug... Start Date: 05/12/22 Status: Ordered QUEtiapine 25 mg oral tablet 1, tablet, By Mouth, 2 times a day, PRN, # 90 tablet, Refills 0, Tot. Refills 0, Maintenance, NEEDED FOR AGITATION, 01/01/22 10:03:00 EST, Route to Pharmacy Electronically, [facility]pharmacy #[id number], 160, cm, 10/24/21 11:46:00 EDT, Height, 72.9, kg, 08/01... Start Date: 01/01/22 Status: Ordered sodium zirconium cyclosilicate 10 g oral powder for reconstitution = 5 Gm, By Mouth, Every Thursday and , # 30 each, 0 Refills, Maintenance, 02/24/22 10:38:00 EST, [facility] #[id number], Partial fill upon patient request if [...] Care Team Personnel Name: Indiana Zuleta Position: [facility] Onco RN Member Role: Primary Care Nurse Name: Naila Hinds RN Position: [facility] RN Member Role: Primary Care Nurse Name: Marisa Rosario RN Position: [facility] RN Member Role: Primary Care Nurse Name: Carmen Hdez RN Position: [facility] ED RN W/OE and Tasks Member Role: Primary Care Nurse Name: Jordon rCuz RN Position: [facility] ED RN W/OE and Tasks Member Role: Primary Care Nurse Name: Daisy Rushing RN Position: [facility] RN Member Role: Primary Care Nurse Name: Corinna Fajardo RN Position: [facility] PCO RN Member Role: Primary Care Nurse Name: Ira Apodaca RN Position: [facility] ED RN W/OE and Tasks Member Role: Primary Care Nurse Name: Estefany Vincent RN Position: [facility] RN Member Role: Primary Care Nurse Name: Idania More RN Position: [facility] RN Member Role: Primary Care Nurse Name: Paola Rinaldi RN Position: [facility] RN Supv Member Role: Primary Care Nurse Name: Lian Joy RN Position: [facility] RN Member Role: Primary Care Nurse Name: Nikkie Sommers RN Position: [facility] RN Supv Member Role: Primary Care Nurse Name: Jasmine Ortega NP Position: [facility] Associate Professional Member Role: Primary Care Nurse Address: Address: [address] [place] [address]- [place] Name: Rivka Cook RN Position: [facility] RN Member Role: Primary Care Nurse Name: Daisy Brower RN Position: [facility] RN Member Role: Primary Care Nurse Name: Kimberly Skinner RN Position: [facility] RN Member Role: Primary Care Nurse Name: Abhishek Johnson RN Position: [facility] RN Member Role: Primary Care Nurse Name: Lesia Cuevas MD Position: [facility] Resident Member Role: PCP Address: Address: [address] [place] [address]- [place] Name: Barbara Rae RN Position: [facility] RN Member Role: Primary Care Nurse Name: Ina Renee RN Position: [facility] RN Member Role: Primary Care Nurse Name: Chel Torres RN Position: [facility] RN Member Role: Primary Care Nurse Name: Yesica Delong RN Position: [facility] ED RN W/OE and Tasks Member Role: Primary Care Nurse Name: Paula Earl RN Position: [facility] RN Member Role: Primary Care Nurse Name: Susan Miller RN Position: [facility] SN RN Member Role: Primary Care Nurse Name: Silva Colin RN Position: [facility] RN Supbrandy Member Role: Primary Care Nurse Name: Pao Key Position: [facility] RN Member Role: Primary Care Nurse Name: Maris Trevino RN Position: [facility] ED RN W/OE and Tasks Member Role: Primary Care Nurse Name: Steph Gordillo RN Position: [facility] OB RN Member Role: Primary Care Nurse Name: Rene Ramos DO Position: [facility] Renal MD Member Role: Lifetime Consulting Physician Address: Address: [address] [facility] [place] [address]- [place] Name: Ryder Matthews Position: [facility] RN Member Role: Primary Care Nurse Name: Mary Correia RN Position: [facility] ED RN W/OE and Tasks Member Role: Primary Care Nurse Name: Tierra Razo RN Position: [facility] RN Member Role: Primary Care Nurse Name: Librado Saucedo RN Position: [facility] RN Member Role: Primary Care Nurse Name: Laron Davenport III, RN Position: [facility] RN Member Role: Primary Care Nurse Name: Danya Govea RN Position: [facility] RN Member Role: Primary Care Nurse Name: Idania Millard RN Position: [facility] RN Member Role: Primary Care Nurse Name: Blake Grant RN Position: [facility] SN RN Member Role: Primary Care Nurse Name: Mariella Ojeda RN Position: [facility] RN Member Role: Primary Care Nurse Name: Ana Do RN Position: [facility] RN Member Role: Primary Care Nurse Name: Yaquelin Dawkins RN Position: [facility] RN Member Role: Primary Care Nurse Name: Cari Khan RN Position: [facility] RN Member Role: Primary Care Nurse Name: Dequan Elliott RN Position: [facility] SN RN Member Role: Primary Care Nurse Name: Esmer Rankin RN Position: [facility] PCO RN Member Role: Primary Care Nurse Name: Juno Torres RN Position: [facility] Onco RN Member Role: Primary Care Nurse Name: Yojana Dior RN Position: [facility] RN Member Role: Primary Care Nurse Name: Farideh Balderas RN Position: [facility] Refrigeration Insulator Member Role: Primary Care Nurse Name: Roxana Ann RN Position: [facility] RN Member Role: Primary Care Nurse Name: Vanessa Shelton RN Position: [facility] RN Member Role: Primary Care Nurse Name: Derick Calixto RN Position: [facility] RN Member Role: Primary Care Nurse Name: Fariba Bradley RN Position: [facility] RN Member Role: Primary Care Nurse Name: Fariba Ornelas RN Position: [facility] NEO RN W/OE and Tasks Member Role: Primary Care Nurse Name: Steph Tierney RN Position: [facility] RN Member Role: Primary Care Nurse Name: Portia Baires RN Position: [facility] RN Member Role: Primary Care Nurse Name: Isidro Valle RN Position: [facility] RN Supv Member Role: Primary Care Nurse Name: Leny Shanks RN Position: [facility] RN Supv Member Role: Primary Care Nurse Name: Steph Smith RN Position: [facility] RN Member Role: Primary Care Nurse Name: Casandra Robbins RN Position: [facility] RN Supv Member Role: Primary Care Nurse Name: Maris Crowell RN Position: [facility] RN Member Role: Primary Care Nurse Name: Coni Romero LPN Position: [facility] RN Member Role: Primary Care Nurse Name: Abigail Rabago RN Position: [facility] RN Member Role: Primary Care Nurse Name: Halina Burger RN Position: [facility] Onco RN Member Role: Primary Care Nurse Name: Linda Lockwood RN Position: [facility] Hospital Refrigeration Insulator Member Role: Primary Care Nurse Name: Lurdes RNDedra I Position: [facility] RN Member Role: Primary Care Nurse Name: David Oquendo RN Position: [facility] RN Member Role: Primary Care Nurse Care Team Related Persons Name: KATTY JACKIE Address: [address] [place] [address] Name: JUNO MENA Address: [address] [place] [address] Name: JOVITA GALARZA Address: [address] [place] [address] Name: KARL GALARZA Address: home [address] [place] [address] Name: EZEKIEL GALARZA Address: [address] [place] [address] Name: MICHAEL BARRETT Address: [address] [place] [address] Name: SHAD TUBBS Address: [address] [place] [address]
--- OUTSIDE RECORDS SUMMARY | 2022-12-14 05:57 | XMS_ITS | Continuity of Care Document ---
Author Name Unknown Organization [facility] Address [address] [place] [id number]- Care Team Providers Care Paint Roller Winder Name Role Phone Lesia Cuevas MD Primary Care Physician Encounter [facility] Date(s): 10/24/21 - 01/09/[address] [id number] [[email or web address]] Attending Physician: Not on Staff, Attending MD Admitting Physician: Not on Staff, Admitting MD Referring Physician: Lesia Cuevas MD Allergies, [...] Comment: normal saline diluent added lot number [id number] expires 07/23/2022 2Result Comment: Afluria Medications allopurinol 100 mg oral tablet 100 mg, 1, tablet, By Mouth, Daily, # 90 tablet, Refills 1, Tot. Refills 1, Maintenance, 10/24/21 13:18:00 EDT, Route to Pharmacy Electronically, [facility]/pharmacy #[id number], Partial fill upon patient requestif the prescription is for a schedule II opioid lynn... Start Date: 10/24/21 Status: Ordered clindamycin 1% topical lotion 1 application, Topically, 2 times a day, apply to L armpit lesions/bumps twice per day until healed, # 60 mL, 0 Refills, Maintenance, 10/24/21 15:35:00 EDT, Lotion, [facility]/pharmacy #[id number], Partial fill upon patient request if the prescription is for a amado... Start Date: 10/24/21 Status: Ordered Daily Lazara oral tablet 1 tablet, By Mouth, Daily Start Date: 07/03/21 Status: Ordered diphenhydrAMINE 25 mg oral capsule 1 capsule, By Mouth, 3 times a day, PRN NEEDED FOR ITCHING, # 100 capsule, 1 Refills, Maintenance, 10/24/21 12:29:00 EDT, [facility]/pharmacy #[id number], 160, cm, 10/24/21 11:46:00 EDT, Height, 72.9, kg, 08/01/21 21:18:00 EDT, Dry Weight Start Date: 10/24/21 Status: Ordered Eliquis 5 mg oral tablet 1 tablet = 5 mg, By Mouth, 2 times a day, # 60 tablet, 0 Refills, Maintenance, 10/24/21 12:29:00 EDT, Tablet, [facility]/pharmacy #[id number], Partial fill upon patient request if the prescription is for a schedule II opioid drug., 160, cm, 10/24/21 11:46:00 EDT,... Start Date: 10/24/21 Status: Ordered Estrace Vaginal Cream 0.1 mg/g = 1 Gm, Vaginally, Daily at bedtime, # 90 Gm, 3 Refills, Maintenance, 12/06/21 14:57:00 EDT, [facility]/pharmacy #[id number], Partial fill upon patient request if the prescription is for a schedule II opioid drug., 160, cm, 12/06/21 14:22:00 EDT, Height, 72.9, kg,... Start Date: 12/06/21 Status: Ordered gabapentin 300 mg oral capsule 300 mg, 1, capsule, By Mouth, 3 times a day, # 90 capsule, Refills 0, Tot. Refills 0, Maintenance, 10/24/21 12:29:00 EDT, Route to Pharmacy Electronically, [facility]/pharmacy #[id number], Partial fill upon patient request [...] Refills, Maintenance, 10/24/21 12:29:00 EDT, Tablet, [facility]/pharmacy #[id number], Partial fill upon patient request if the prescription is for a schedule II opioid drug., 160,... Start Date: 10/24/21 Status: Ordered loratadine 10 mg oral tablet 10 mg, 1, tablet, By Mouth, Daily, # 90 tablet, Refills 11, Tot. Refills 11, Maintenance, 08/29/21 16:56:00 EDT, Route to Pharmacy Electronically, [facility]/pharmacy #[id number], Partial fill upon patient request if the prescription is for a schedule II opioid . Start Date: 08/29/21 Status: Ordered LORazepam 1 mg oral tablet 1 tablet = 1 mg, By Mouth, 2 times a day, PRN as needed for anxiety, Limited Rx. Please contact at [facility] if ongoing need., # 5 tablet, 0 Refills, Maintenance, 10/15/21 16:13:00 EDT, Tablet, [facility]/pharmacy #1... Start Date: 10/15/21 Status: Ordered nicotine 4 mg oral transmucosal gum See Instructions, CHEW 1 PIECE EVERY 2 HOURS NEEDED FOR SMOKING CESSATION, # 200 gum, 0 Refills,[facility]ORE [id number], 160, cm, 08/01/21 21:18:00 EDT, Height, 72.9, kg, 08/01/21 21:18:00 EDT, Dry Weight Start Date: 08/05/21 Status: Ordered omeprazole 20 mg oral enteric coated capsule 1 capsule = 20 mg, By Mouth, Daily, # 90 capsule, 10 Refills, Maintenance, 10/24/21 12:29:00 EDT, [facility]/pharmacy #[id number], Partial fill upon patient request if the prescription is for a schedule II opioiddrug., 160, cm, 10/24/21 11:46:00 EDT, Height, 72.9... Start Date: 10/24/21 Status: Ordered oxyCODONE 10 mg oral tablet 2 tablet = 20 mg, By Mouth, Every 4 hours, PRN Pain , Moderate, # 84 tablet, 0 Refills, Maintenance, 01/07/22 9:30:00 EST, Tablet, [facility]/pharmacy #[id number], Partial fill upon patient request if the prescription is for a schedule II opioid drug., 160, cm, 10... Start Date: 01/07/22 Status: Ordered ProAir HFA 90 mcg/inh inhalation aerosol 2 puffs, Inhalation, Every 6 hours Start Date: 07/03/21 Status: Ordered QUEtiapine 25 mg oral tablet 1, tablet, By Mouth, 2 times a day, PRN, # 90 tablet, Refills 0, Tot. Refills 0, Maintenance, NEEDED FOR AGITATION, 01/01/22 10:03:00 EST, Route to Pharmacy Electronically, [facility]/pharmacy #[id number], 160, cm, 10/24/21 11:46:00 EDT, [...] Care Team Personnel Name: [place] Zuleta Position: [facility] RN Member Role: Primary Care Nurse Name: Naila Hinds RN Position: S RN Member Role: Primary Care Nurse Name: Marisa Rosario RN Position: [facility] RN Member Role: Primary Care Nurse Name: Carmen Hdez RN Position: [facility] ED RN W/OE and Tasks Member Role: Primary Care Nurse Name: Jordon Cruz RN Position: [facility] ED RN W/OE and Tasks Member Role: Primary Care Nurse Name: Daisy Rushing RN Position: [facility] RN Member Role: Primary Care Nurse Name: Taran Caldera RN Position: [facility] RN Member Role: Primary Care Nurse Name: Corinna Fajardo RN Position: [facility] PCO RN Member Role: Primary Care Nurse Name: Constanza RNIra Position: [facility] ED RN W/OE and Tasks Member Role: Primary Care Nurse Name: Melisa RNEstefany Position: [facility] RN Member Role: Primary Care Nurse Name: Idania More RN Position: [facility] RN Member Role: Primary Care Nurse Name: Jessica Schmidt RN Position: [facility] RN Member Role: [...] Member Role: Primary Care Nurse Address: Address: [address] [place] [address]- Name: Rivka Cook RN Position: [facility] [...] HOSPITAL Resident Member Role: PCP Address: Address: [address] [place] [address]- Name: Rene Pham RN Position: [facility] RN Member Role: Primary Care Nurse Name: Barbara Rae RN Position: [facility] RN Member Role: Primary Care Nurse Name: Ina Renee RN Position: [facility] RN Member Role: Primary Care Nurse Name: Yesica Delong RN Position: [facility] ED RN W/OE and Tasks Member Role: Primary Care Nurse Name: Vy Rogers RN Position: [facility] RN Member Role: Primary Care Nurse Name: Paula Earl RN Position: [facility] RN Member Role: Primary Care Nurse Name: Susan Miller RN Position: [facility] SN RN Member Role: Primary Care Nurse Name: Silva Colin RN Position: [facility] RN Supv Member [...] Role: Lifetime Consulting Physician Address: Address: [address] [place] [address] [facility] [address] Name: Ryder Matthews Position: [facility] RN [...] Care Nurse Name: Kamila Morris RN Position: [facility] RN Member Role: Primary Care Nurse Name: Blake Grant RN Position: [facility] SN RN Member Role: Primary Care Nurse Name: Mariella Ojeda RN Position: [facility] RN Member Role: Primary Care Nurse Name: Portia Moctezuma RN Position: [facility] RN Member Role: Primary Care Nurse Name: Libia Berry RN Position: [facility] RN Member Role: [...] Name: Esmer Rankin RN Position: [facility] PCO RN Member Role: Primary Care Nurse Name: Suzanna Timmons RN Position: [facility] RN Member Role: Primary Care Nurse Name: Kaylene Maier RN Position: [facility] RN Supv Member Role: Primary Care Nurse Name: Yojana Dior RN Position: [facility] RN Member Role: Primary Care Nurse Name: Farideh Balderas RN Position: [facility] Hospice Nurse Practitioner Member Role: Primary Care Nurse Name: Roxana [...] Care Nurse Name: Isidro Valle RN Position: [facility] RN Supv Member Role: Primary Care Nurse Name: Leny Shanks RN Position: [facility] RN Supv Member Role: Primary Care Nurse Name: Steph Smith RN Position: [facility] RN Member Role: Primary Care Nurse Name: Casandra Robbins RN Position: [facility] RN Member Role: [...] Care Nurse Name: Linda Lockwood RN Position: [facility]ospice Nurse Practitioner Member Role: Primary Care Nurse Name: Ana Milian RN Position: [facility] RN Supv Member Role: Primary Care Nurse Name: Dedra Chatman RN, I Position: [facility] RN Member Role: Primary Care Nurse Name: David Oquendo RN Position: [facility] RN Supv Member Role: Primary Care Nurse Care Team Related Persons Name: EVONNE ALANIZUS Address: [address] [place] [address] Name: JUNO MENA Address: home [address] [place] [address] Name: JOVITA GALARZA Address: home [address] [place] [address] Name: KARL GALARZA Address: [place] [address] Name: EZEKIEL GALARZA Address: home [address] [place] [address] Name: SHAD TUBBS Address: home [address] [place] [address]
--- OUTSIDE RECORDS SUMMARY | 2022-12-14 05:58 | XMS_ITS | Continuity of Care Document ---
Author Name Unknown Organization [facility] Address [address] [place] [address]- Care Team Providers Care Licensed Insurance Sales Agent Name Role Phone Lesia Cuevas MD Primary Care Physician Encounter [facility] Date(s): 07/10/22 - 08/16/[address] [address]- Attending Physician: Not on Staff, Attending MD [...] Comment: normal saline diluent added lot number [id number] expires 07/23/2022 2Result Comment: Afluria Medications allopurinol 100 mg oral tablet 100 mg, 1, tablet, By Mouth, Daily, # 90 tablet, Refills 1, Tot. Refills 1, Maintenance, 10/24/21 13:18:00 EDT, Route to Pharmacy Electronically, [facility]/pharmacy #[id number], Partial fill upon patient requestif the prescription is for a schedule II opioid lynn... Start Date: 10/24/21 Status: Ordered Ativan 1 mg oral tablet 1 tablet = 1 mg, By Mouth, 2 times a day, PRN as needed for anxiety, for 7 days, # 14 tablet, 0 Refills, Acute 08/19/22 15:01:00 EDT, 08/12/22 15:01:00 EDT, Tablet, [id number], Partial fill upon patient request if the prescription is... Start Date: 08/12/22 Stop Date: 08/19/22 Status: Ordered clindamycin 1% topical lotion 1 application, Topically, 2 times a day, apply to L armpit lesions/bumps twice per day until healed, # 60 mL, 0 Refills, Maintenance, 10/24/21 15:35:00 EDT, Lotion, [facility]/pharmacy #[id number], Partial fill upon patient request if the prescription is for a amado... Start Date: 10/24/21 Status: Ordered Daily Lazara oral tablet 1 tablet, By Mouth, Daily Start Date: 07/03/21 Status: Ordered diphenhydrAMINE 25 mg oral capsule 1 capsule, By Mouth, 3 times a day, PRN NEEDED FOR ITCHING, # 90 capsule, 2 Refills, Maintenance, 05/14/22 15:26:00 EDT, [id number], 163, cm, 05/12/22 16:01:00 EDT, Height, 61.5, [...] each, 6 Refills, Maintenance, 07/08/22 17:26:00 EDT, [place], [id number], Partial fill upon patient request [...] 04/11/22 15:56:00 EST, Route to Pharmacy Electronically, [facility]/pharmacy #[id number], 163, cm, 04/11/22 15:32:00 EST, Height, 60.8, kg, 02/19/22 19:05:00 EST, Dry Weight Start Date: 04/11/22 Status: Ordered MiraLax oral powder for reconstitution = 17 Gm, By Mouth, Daily, dissolve in water before taking, # 255 Gm, 1 Refills, Maintenance, 04/11/22 21:05:00 EST, REC Powder, [facility]/pharmacy #[id number], Partial fill upon patient request if the prescription is for a schedule II opioid drug., 17 Gm By Mouth... Start Date: 04/11/22 Status: Ordered nicotine 4 mg oral transmucosal gum See Instructions, CHEW 1 PIECE EVERY 2 HOURS NEEDED FOR SMOKING CESSATION, # 200 gum, 0 Refills,[id number], 160, cm, 08/01/21 21:18:00 EDT, Height, 72.9, kg, 08/01/21 21:18:00 EDT, Dry Weight Start Date: 08/05/21 Status: Ordered omeprazole 20 mg oral enteric coated capsule 1 capsule = 20 mg, By Mouth, Daily, # 90 capsule, 10 Refills, Maintenance, 10/24/21 12:29:00 EDT, [facility]/pharmacy #[id number], Partial fill upon patient request if the prescription is for a schedule II opioiddrug., 160, cm, 10/24/21 11:46:00 EDT, Height, 72.9... Start Date: 10/24/21 Status: Ordered oxyCODONE 10 mg oral tablet 2 tablet = 20 mg, By Mouth, Every 4 hours, for 7 days, # 84 tablet, 0 Refills, Acute 08/19/22 14:59:00 EDT, 08/12/22 14:59:00 EDT, Tablet, [facility] #[id number], Partial fill upon patient request if the prescription is for a schedule II opioid d... Start Date: 08/12/22 Stop Date: 08/19/22 Status: Ordered oxyCODONE 5 mg oral tablet 20 mg, 4, tablet, By Mouth, Every 4 hours, PRN, # 168 tablet, Refills 0, Tot. Refills 0, Maintenance, Pain , Severe, 07/18/22 12:19:00 EDT, Route to Pharmacy Electronically, [facility]/pharmacy #[id number], Scripfor 5 mg tabs sent as [...] Care Team Personnel Name: [place] Zuleta Position: [facility] Onco RN Member Role: Primary Care Nurse Name: Naila Hinds RN Position: [facility] RN Member Role: Primary Care Nurse Name: Marisa Rosario RN Position: [facility] RN Member Role: Primary Care Nurse Name: Carmen Hdez RN Position: [facility] ED RN W/OE and Tasks Member Role: Primary Care Nurse Name: Jordon Cruz RN Position: [facility] ED RN W/OE and Tasks Member Role: Primary Care Nurse Name: Daisy Rushing RN Position: [facility] RN Member Role: Primary Care Nurse Name: Corinna Fajardo RN Position: [facility] AMB Nurse Member Role: Primary Care Nurse Name: Ira Apodaca RN Position: [facility] ED RN W/OE and Tasks Member Role: Primary Care Nurse Name: Estefany Vincent RN Position: [facility] RN Member [...] Care Nurse Name: Jasmine Ortega NP Position: [facility] Associate Professional Member Role: Primary Care Nurse Address: Address: [address] [place] [id number] Name: Rivka Cook RN [facility] Resident Member Role: PCP Address: Address: [address] [place] [address]- Name: Barbara Rae RN Position: [facility] AMB Nurse Member Role: Primary Care Nurse [...] Care Nurse Name: Maris Trevino RN Position: [facility] ED RN W/OE and Tasks Member Role: Primary Care Nurse Name: Steph Gordillo RN Position: [facility] OB RN Member Role: Primary Care Nurse Name: Rene Ramos DO Position: [facility] Renal MD Member Role: Lifetime Consulting Physician Address: Address: [address] [place], [place] [address] [place] [address]- Name: Ryder Matthews Position: [facility] [...] Dequan Elliott RN Position: [facility] SN RN Member Role: Primary Care Nurse Name: Esmer Rankin RN Position: [facility] AMB Nurse Member Role: Primary Care Nurse Name: Juno Torres RN Position: [facility] Onco RN Member Role: Primary Care Nurse Name: Yojana Dior RN Position: [facility] RN Member Role: Primary Care Nurse Name: Farideh Balderas RN Position: [facility] Pier Hand Member Role: Primary Care Nurse Name: Rxoana Ann RN Position: [facility] RN Member Role: Primary Care Nurse Name: Vanessa Shelton RN Position: [facility] RN Member Role: Primary Care Nurse Name: eDrick Calixto RN Position: [facility] RN [...] Portia Baires RN Position: [facility] SN RN [...] Care Nurse Name: Linda Lockwood RN Position: [facility] Pier Hand Member Role: Primary Care Nurse Name: Dedra Chatman RN, I Position: [facility] RN Member Role: Primary Care Nurse Name: David Oquendo RN Position: [facility] RN Member Role: Primary Care Nurse Care Team Related Persons Name: JACKIE ALANIZ Address: home [address] [place] [address] Name: JUNO MENA Address: home [address] [place] [address] Name: JOVITA GALARZA Address: home [address] [place] [address] Name: KARL GALARZA Address: home [address] [place] [address] Name: EZEKIEL GALARZA Address: home [address] [place] [address] Name: MICHAEL BARRETT Address: home [address] [place] [address] Name: SHAD TUBBS Address: home [address] [place] [id number]
--- OUTSIDE RECORDS SUMMARY | 2022-12-14 05:58 | XMS_ITS | Continuity of Care Document ---
Author Name Unknown Organization [facility] Address [address] [place] [id number]- Care Team Providers Care Aluminum Siding Installer Name Role Phone Lesia Cuevas MD Primary Care Physician Encounter [facility] Date(s): 08/16/22 - 11/20/[address] [id number]- Attending Physician: Joyce Ireland MD Admitting Physician: [...] Comment: normal saline diluent added lot number [id number] expires 07/23/2022 2Result Comment: Afluria Medications allopurinol 100 mg oral tablet 100 mg, 1, tablet, By Mouth, Daily, # 90 tablet, Refills 1, Tot. Refills 1, Maintenance, 10/24/21 13:18:00 EDT, Route to Pharmacy Electronically, [facility]/pharmacy #[id number], Partial fill upon patient requestif the prescription is for a schedule II opioid lynn... Start Date: 10/24/21 Status: Ordered clindamycin 1% topical lotion 1 application, Topically, 2 times a day, apply to L armpit lesions/bumps twice per day until healed, # 60 mL, 0 Refills, Maintenance, 10/24/21 15:35:00 EDT, Lotion, [facility]/pharmacy #[id number], Partial fill upon patient request if the prescription is for a amado... Start Date: 10/24/21 Status: Ordered Daily Lazara oral tablet 1 tablet, By Mouth, Daily Start Date: 07/03/21 Status: Ordered diphenhydrAMINE 25 mg oral capsule 1 capsule, By Mouth, 3 times a day, PRN NEEDED FOR ITCHING, # 90 capsule, 2 Refills, Maintenance, 05/14/22 15:26:00 EDT, [facility] STORE [id number], 163, cm, 05/12/22 16:01:00 EDT, Height, 61.5, kg, 05/10/2316:29:00 EDT, Dry Weight Start Date: 05/14/22 Status: Ordered Estrace Vaginal Cream 0.1 mg/g = 1 Gm, Vaginally, Daily at bedtime, # 90 Gm, 3 Refills, Maintenance, 12/06/21 14:57:00 EDT, [facility]/pharmacy #[id number], Partial fill upon patient request if the prescription is for a schedule II opioid drug., 160, cm, 12/06/21 14:22:00 EDT, Height, 72.9, kg,... Start Date: 12/06/21 Status: Ordered Eucerin Plus topical lotion 1 application, Topically, 2 times a day, PRN for dry skin, # 180 mL, 0 Refills, Maintenance, 03/12/22 16:28:00 EST, Lotion, [facility]/pharmacy #[id number], Partial fill upon patient request if the prescription is for a schedule II opioid drug., 1 application Topi... Start Date: 03/12/22 Status: Ordered Flonase 50 mcg/inh nasal spray 1 sprays, Nares, Both, 2 times a day, # 1 each, 6 Refills, Maintenance, 07/08/22 17:26:00 EDT, [place], [facility]/pharmacy #[id number], Partial fill upon patient request [...] 10/24/21 12:29:00 EDT, Route to Pharmacy Electronically, [facility]/pharmacy #[id number], Partial fill upon patient request [...] 04/11/22 15:56:00 EST, Route to Pharmacy Electronically, [facility]/pharmacy #[id number], 163, cm, 04/11/22 15:32:00 EST, Height, 60.8, kg, 02/19/22 19:05:00 EST, Dry Weight Start Date: 04/11/22 Status: Ordered LORazepam 1 mg oral tablet 1 tablet = 1 mg, By Mouth, 2 times a day, PRN as needed for anxiety, for 7 days, # 14 tablet, 0 Refills, Acute 11/25/22 14:20:00 EDT, 11/18/22 14:20:00 EDT, Tablet, [facility]/pharmacy #[id number], Partial fill upon patient request if the prescription is for a amado... Start Date: 11/18/22 Stop Date: 11/25/22 Status: Ordered MiraLax oral powder for reconstitution = 17 Gm, By Mouth, Daily, dissolve in water before taking, # 255 Gm, 1 Refills, Maintenance, 04/11/22 21:05:00 EST, REC Powder, [facility]/pharmacy #[id number], Partial fill upon patient request if the prescription is for a schedule II opioid drug., 17 Gm By Mouth... Start Date: 04/11/22 Status: Ordered nicotine 4 mg oral transmucosal gum See Instructions, CHEW 1 PIECE EVERY 2 HOURS NEEDED FOR SMOKING CESSATION, # 200 gum, 0 Refills,[facility] STORE [id number], 160, cm, 08/01/21 21:18:00 EDT, Height, 72.9, kg, 08/01/21 21:18:00 EDT, Dry Weight Start Date: 08/05/21 Status: Ordered omeprazole 20 mg oral enteric coated capsule 1 capsule = 20 mg, By Mouth, Daily, # 90 capsule, 10 Refills, Maintenance, 10/24/21 12:29:00 EDT, [facility]/pharmacy #[id number], Partial fill upon patient request if the prescription is for a schedule II opioiddrug., 160, cm, 10/24/21 11:46:00 EDT, Height, 72.9... Start Date: 10/24/21 Status: Ordered oxyCODONE 10 mg oral tablet 2 tablet = 20 mg, By Mouth, Every 4 hours, PRN as needed for pain, # 84 tablet, 0 Refills, Maintenance, 11/20/22 11:21:00 EDT, Tablet, [facility]/pharmacy #[id number], Partial fill upon patient request if the prescription is for a schedule II opioid drug., 163, cm... Start Date: 11/20/22 Stop Date: 11/27/22 Status: Ordered oxyCODONE 5 mg oral tablet 20 mg, 4, tablet, By Mouth, Every 4 hours, PRN, # 168 tablet, Refills 0, Tot. Refills 0, Maintenance, Pain , Severe, 07/18/22 12:19:00 EDT, Route to Pharmacy Electronically, [facility]/pharmacy #[id number], Scripfor 5 mg tabs sent [...] 05/12/22 15:17:00 EDT, Route to Pharmacy Electronically, [facility]/pharmacy #[id number], Partial fill upon patient request if the prescription is for a schedule II opioid drug... Start Date: 05/12/22 Status: Ordered QUEtiapine 25 mg oral tablet 1, tablet, By Mouth, 2 times a day, PRN, # 90 tablet, Refills 0, Tot. Refills 0, Maintenance, NEEDED FOR AGITATION, 01/01/22 10:03:00 EST, Route to Pharmacy Electronically, [facility]/pharmacy #[id number], 160, cm, 10/24/21 11:46:00 EDT, Height, 72.9, kg, 08/01... Start Date: 01/01/22 Status: Ordered sodium zirconium cyclosilicate 10 g oral powder for reconstitution = 5 Gm, By Mouth, Every Thursday and , # 30 each, 0 Refills, Maintenance, 02/24/22 10:38:00 EST, [facility]/pharmacy #[id number], Partial fill upon patient request if the prescription is for a schedule II opioid drug., 163, cm, 12/29/22 15:53:00 EST, Height,... Start Date: 02/24/22 Status: [...] Care Team Personnel Name: Indiana Zuleta Position: [facility] Onco RN Member Role: Primary Care Nurse Name: Naila Hinds RN Position: [facility] RN Member Role: Primary Care Nurse Name: Marisa Rosario RN Position: [facility] RN Member Role: Primary Care Nurse Name: Carmen Hdez RN Position: [facility] ED RN W/OE and Tasks Member Role: Primary Care Nurse Name: Jordon Cruz RN Position: [facility] ED RN W/OE and Tasks Member Role: Primary Care Nurse Name: Daisy Rushing RN Position: [facility] RN Member Role: Primary Care Nurse Name: Corinna Fajardo RN Position: [facility] AMB Nurse Member Role: Primary Care Nurse Name: Ira Apodaca RN Position: [facility] ED RN W/OE and Tasks Member Role: Primary Care Nurse Name: Estefany Vincent RN Position: [facility] RN Member Role: Primary Care Nurse Name: Idania More RN Position: [facility] RN Member Role: Primary Care Nurse Name: Paola Rinaldi RN Position: [facility] RN Supv Member Role: Primary Care Nurse Name: Lian Joy RN Position: [facility] RN Member Role: Primary Care Nurse Name: Nikkie Sommers RN Position: [facility] RN Supv Member Role: Primary Care Nurse Name: Jasmine Ortega NP Position: [facility] Associate Professional Member Role: Primary Care Nurse Address: Address: [address] [place] [id number] Name: Rivka Cook RN Position: [facility] RN Member Role: Primary Care Nurse Name: Daisy Brower RN Position: [facility] RN Member Role: Primary Care Nurse Name: Kimberly Skinner RN Position: [facility] RN Member Role: Primary Care Nurse Name: Abhishek Johnson RN Position: [facility] RN Member Role: Primary Care Nurse Name: Lesia Cuevas MD Position: [facility] Resident Member Role: PCP Address: Address: [address] [place] [id number]- Name: Barbara Rae RN Position: [facility] AMB Nurse Member Role: Primary Care Nurse Name: Ina Renee RN Position: [facility] RN Member Role: Primary Care Nurse Name: Yesica Delong RN Position: [facility] ED RN W/OE and Tasks Member Role: Primary Care Nurse Name: Paula Earl RN Position: [facility] RN Member Role: Primary Care Nurse Name: Susan Miller RN Position: [facility] ED RN W/OE and Tasks Member Role: Primary Care Nurse Name: Pao Key Position: [facility] RN Member Role: Primary Care Nurse Name: Maris Trevino RN Position: [facility] ED RN W/OE and Tasks Member Role: Primary Care Nurse Name: Steph Gordillo RN Position: [facility] OB RN Member Role: Primary Care Nurse Name: Rene Ramos DO Position: [facility] Renal MD Member Role: Lifetime Consulting Physician Address: Address: [address] [place], [place] [address] [place] [address]- Name: Ryder Matthews Position: [facility] RN Member Role: Primary Care Nurse Name: Mary Correia RN Position: [facility] ED RN W/OE and Tasks Member Role: Primary Care Nurse Name: Tierra Razo RN Position: [facility] RN Member Role: Primary Care Nurse Name: Librado Saucedo RN Position: [facility] RN Member Role: Primary Care Nurse Name: Laron Davenport III, RN Position: [facility] RN Member Role: Primary Care Nurse Name: Danya Govea RN Position: [facility] RN Member Role: Primary Care Nurse Name: Idania Millard RN Position: [facility] RN Member Role: Primary Care Nurse Name: Blake Grant RN Position: [facility] SN RN Member Role: Primary Care Nurse Name: Mariella Ojeda RN Position: [facility] RN Member Role: Primary Care Nurse Name: Ana Do RN Position: [facility] RN Member Role: Primary Care Nurse Name: Yaquelin Dawkins RN Position: [facility] RN Member Role: Primary Care Nurse Name: Cari Khan RN Position: [facility] RN Member Role: Primary Care Nurse Name: Dequan Elliott RN Position: [facility] SN RN Member Role: Primary Care Nurse Name: Chucho RNEsmer Position: [facility] AMB Nurse Member Role: Primary Care Nurse Name: Suzanna Timmons RN Position: [facility] SN RN Member Role: Primary Care Nurse Name: Juno Torres RN Position: [facility] Onco RN Member Role: Primary Care Nurse Name: Yojana Dior RN Position: [facility] RN Member Role: Primary Care Nurse Name: Farideh Balderas RN Position: [facility] Hospital Conference Manager Member Role: Primary Care Nurse Name: Roxana Ann RN Position: [facility] RN Member Role: Primary Care Nurse Name: Vanessa Shelton RN Position: [facility] RN Member Role: Primary Care Nurse Name: Derick Calixto RN Position: [facility] RN Member Role: Primary Care Nurse Name: Fariba Bradley RN Position: [facility] RN Member Role: Primary Care Nurse Name: Fariba Ornelas RN Position: [facility] ED RN W/OE and Tasks Member Role: Primary Care Nurse Name: Steph Tierney RN Position: [facility] RN Member Role: Primary Care Nurse Name: Portia Baires RN Position: [facility] SN RN Member Role: Primary Care Nurse Name: Leny Shanks RN Position: [facility] RN Supv Member Role: Primary Care Nurse Name: Steph Smith RN Position: [facility] RN Member Role: Primary Care Nurse Name: Casandra Robbins RN Position: [facility] RN Supv Member Role: Primary Care Nurse Name: Maris Crowell RN Position: [facility] RN Member Role: Primary Care Nurse Name: Coni Romero LPN Position: [facility] RN Member Role: Primary Care Nurse Name: Abigail Rabago RN Position: [facility] RN Member Role: Primary Care Nurse Name: Halina Burger RN Position: [facility] Onco RN Member Role: Primary Care Nurse Name: Linda Lockwood RN Position: [facility] Hospital Conference Manager Member Role: Primary Care Nurse Name: Dedra Chatman RN, I Position: [facility] RN Member Role: Primary Care Nurse Name: David Oquendo RN Position: [facility] RN Member Role: Primary Care Nurse Care Team Related Persons Name: JACKIE ALANIZ Address: [address] [place] [address] Name: JUNO MENA Address: [address] [place] [address] Name: JOVITA GALARZA Address: home [address] [place] [address] Name: KARL GALARZA Address: home [address] [place] [address] Name: EZEKIEL GALARZA Address: [address] [place] [address] Name: MICHAEL BARRETT Address: home [address] [place] [address] Name: SHAD TUBBS Address: home [address] [place] [id number]
--- OUTSIDE RECORDS SUMMARY | 2022-12-14 05:58 | XMS_ITS | Continuity of Care Document ---
Author Name Unknown Organization [facility] Address [address] [place] [address]- Care Team Providers Care Managing Member Name Role Phone Lesia Cuevas MD Primary Care Phys[facility] Date[facility]): 11/27/21 - 01/12/[address] [address]- Attending Physician: Manny Desir MD Admitting Physician: [...] Comment: normal saline diluent added lot number [id number] expires 07/23/2022 2Result Comment: Afluria Medications allopurinol 100 mg oral tablet 100 mg, 1, tablet, By Mouth, Daily, # 90 tablet, Refills 1, Tot. Refills 1, Maintenance, 10/24/21 13:18:00 EDT, Route to Pharmacy Electronically, [facility]/pharmacy #[id number], Partial fill upon patient requestif the prescription is for a schedule II opioid lynn... Start Date: 10/24/21 Status: Ordered clindamycin 1% topical lotion 1 application, Topically, 2 times a day, apply to L armpit lesions/bumps twice per day until healed, # 60 mL, 0 Refills, Maintenance, 10/24/21 15:35:00 EDT, Lotion, [facility]/pharmacy #1130, Partial fill upon patient request if the prescription is for a amado... Start Date: 10/24/21 Status: Ordered Daily Lazara oral tablet 1 tablet, By Mouth, Daily Start Date: 07/03/21 Status: Ordered diphenhydrAMINE 25 mg oral capsule 1 capsule, By Mouth, 3 times a day, PRN NEEDED FOR ITCHING, # 100 capsule, 1 Refills, Maintenance, 10/24/21 12:29:00 EDT, [facility]/pharmacy #1130, 160, cm, 10/24/21 11:46:00 EDT, Height, 72.9, kg, 08/01/21 21:18:00 EDT, Dry Weight Start Date: 10/24/21 Status: Ordered Eliquis 5 mg oral tablet 1 tablet = 5 mg, By Mouth, 2 times a day, # 60 tablet, 0 Refills, Maintenance, 10/24/21 12:29:00 EDT, Tablet, [facility]/pharmacy #1130, Partial fill upon patient request if the prescription is for a schedule II opioid drug., 160, cm, 10/24/21 11:46:00 EDT,... Start Date: 10/24/21 Status: Ordered Estrace Vaginal Cream 0.1 mg/g = 1 Gm, Vaginally, Daily at bedtime, # 90 Gm, 3 Refills, Maintenance, 12/06/21 14:57:00 EDT, [facility]/pharmacy #[id number], Partial fill upon patient request if the prescription is for a schedule II opioid drug., 160, cm, 12/06/21 14:22:00 EDT, Height, 72.9, kg,... Start Date: 12/06/21 Status: Ordered gabapentin 300 mg oral capsule 300 mg, 1, capsule, By Mouth, 3 times a day, # 90 capsule, Refills 0, Tot. Refills 0, Maintenance, 10/24/21 12:29:00 EDT, Route to Pharmacy Electronically, [facility]/pharmacy #[id number], Partial fill upon patient request [...] Refills, Maintenance, 10/24/21 12:29:00 EDT, Tablet, [facility]/pharmacy #1130, Partial fill upon patient request if the prescription is for a schedule II opioid drug., 160,... Start Date: 10/24/21 Status: Ordered loratadine 10 mg oral tablet 10 mg, 1, tablet, By Mouth, Daily, # 90 tablet, Refills 11, Tot. Refills 11, Maintenance, 08/29/21 16:56:00 EDT, Route to Pharmacy Electronically, [facility]/pharmacy #[id number], Partial fill upon patient request if the prescription is for a schedule II opioid . Start Date: 08/29/21 Status: Ordered LORazepam 1 mg oral tablet 1 tablet = 1 mg, By Mouth, 2 times a day, PRN as needed for anxiety, Limited Rx. Please contact at [facility] if ongoing need., # 5 tablet, 0 Refills, Maintenance, 10/15/21 16:13:00 EDT, Tablet, [facility]/pharmacy #1... Start Date: 10/15/21 Status: Ordered nicotine 4 mg oral transmucosal gum See Instructions, CHEW 1 PIECE EVERY 2 HOURS NEEDED FOR SMOKING CESSATION, # 200 gum, 0 Refills,[facility] STORE [id number], 160, cm, 08/01/21 21:18:00 EDT, Height, 72.9, kg, 08/01/21 21:18:00 EDT, Dry Weight Start Date: 08/05/21 Status: Ordered omeprazole 20 mg oral enteric coated capsule 1 capsule = 20 mg, By Mouth, Daily, # 90 capsule, 10 Refills, Maintenance, 10/24/21 12:29:00 EDT, [facility]/pharmacy #1130, Partial fill upon patient request if the prescription is for a schedule II opioiddrug., 160, cm, 10/24/21 11:46:00 EDT, Height, 72.9... Start Date: 10/24/21 Status: Ordered oxyCODONE 10 mg oral tablet 2 tablet = 20 mg, By Mouth, Every 4 hours, PRN Pain , Moderate, # 84 tablet, 0 Refills, Maintenance, 01/07/22 9:30:00 EST, Tablet, [facility], Partial fill upon [...] 10:03:00 EST, Route to Pharmacy Electronically, [facility]/pharmacy #[id number], 160, cm, 10/24/21 11:46:00 EDT, [...] Care Team Personnel Name: [place] Zuleta Position: [facility] Onco RN Member Role: Primary Care Nurse Name: Naila Hinds RN Position: S RN Member Role: Primary Care Nurse Name: Marisa Rosario RN Position: [facility] RN Member Role: Primary Care Nurse Name: Carmne Hdez RN Position: [facility] ED RN W/OE and Tasks Member Role: Primary Care Nurse Name: Jordon Cruz RN Position: [facility] ED RN W/OE and Tasks Member Role: Primary Care Nurse Name: Daisy Rushing RN Position: [facility] RN Member Role: Primary Care Nurse Name: Taran Caldera RN Position: [facility] RN Member Role: Primary Care Nurse Name: Corinna Fajardo RN Position: [facility] PCO RN Member Role: Primary Care Nurse Name: Constanza RNIra Position: [facility] ED RN W/OE and Tasks Member Role: Primary Care Nurse Name: Melisa RNEstefany Position: [facility] RN Member Role: Primary Care Nurse Name: Idania More RN Position: [facility] RN Member Role: Primary Care Nurse Name: Jessica Scmhidt RN Position: [facility] RN Member Role: Primary Care Nurse Name: Paola Rinaldi RN Position: [facility] RN Supv Member Role: Primary Care Nurse Name: Lian Joy RN Position: [facility] RN Member Role: Primary Care Nurse Name: Nikkie Sommers RN Position: [facility] RN Supv Member Role: Primary Care Nurse Name: Jasmine Ortega NP Position: [facility] Associate Professional Member Role: Primary Care Nurse Address: Address: [address] [place] [address]- Name: Rivka Cook RN Position: [facility] RN Member Role: Primary Care Nurse Name: Daisy Brower RN Position: [facility] RN Member Role: Primary Care Nurse Name: Kimberly Skinner RN Position: [facility] RN Member Role: Primary Care Nurse Name: Abhishek Johnson RN Position: [facility] RN Member Role: Primary Care Nurse Name: Lesia Cuevas MD Position: [facility] Resident Member Role: PCP Address: Address: [address] [place] [phone]- Name: Rene Pham RN Position: [facility] RN Member Role: Primary Care Nurse Name: Barbara Rae RN Position: [facility] RN Member Role: Primary Care Nurse Name: Ina Renee RN Position: [facility] RN Member Role: Primary Care Nurse Name: Yesica Delong RN Position: [facility] ED RN W/OE and Tasks Member Role: Primary Care Nurse Name: Vy Rogers RN Position: [facility] RN Member Role: Primary Care Nurse Name: Paula Earl RN Position: [facility] RN Member Role: Primary Care Nurse Name: Susan Miller RN Position: [facility] SN RN Member Role: Primary Care Nurse Name: Silva Colin RN Position: [facility] RN Supv Member Role: Primary Care Nurse Name: Pao Key Position: [facility] RN Member Role: Primary Care Nurse Name: Maris Trevino RN Position: [facility] ED RN W/OE and Tasks Member Role: Primary Care Nurse Name: Steph Gordillo RN Position: [facility] OB RN Member Role: Primary Care Nurse Name: Rene Ramos DO Position: [facility] Renal MD Member Role: Lifetime Consulting Physician Address: Address: [address] [place], [place] [address] [address] Name: Ryder Matthews Position: [facility] RN Member Role: Primary Care Nurse Name: Mary Correia RN Position: [facility] ED RN W/OE and Tasks Member Role: Primary Care Nurse Name: Tierra Razo RN Position: [facility] RN Member Role: Primary Care Nurse Name: Librado Saucedo RN Position: [facility] RN Member Role: Primary Care Nurse Name: Laron Davenport III, RN Position: [facility] RN Member Role: Primary Care Nurse Name: Danya Govea RN Position: [facility] RN Member Role: Primary Care Nurse Name: Idania Millard RN Position: [facility] RN Member Role: Primary Care Nurse Name: Kamila Morris RN Position: [facility] RN Member Role: Primary Care Nurse Name: Blake Grant RN Position: [facility] SN RN Member Role: Primary Care Nurse Name: Mariella Ojeda RN Position: [facility] RN Member Role: Primary Care Nurse Name: Portia Moctezuma RN Position: [facility] RN Member Role: Primary Care Nurse Name: Libia Berry RN Position: [facility] RN Member Role: Primary Care Nurse Name: Ana Do RN Position: [facility] RN Member Role: Primary Care Nurse Name: Yaquelin Dawkins RN Position: [facility] RN Member Role: Primary Care Nurse Name: Cari Khan RN Position: [facility] RN Member Role: Primary Care Nurse Name: Dequan Elliott RN Position: [facility] ED RN W/OE and Tasks Member Role: Primary Care Nurse Name: Esmer Rankin RN Position: [facility] PCO RN Member Role: Primary Care Nurse Name: Suzanna Timmons RN Position: [facility] RN Member Role: Primary Care Nurse Name: Kaylene Maier RN Position: [facility] RN Supv Member Role: Primary Care Nurse Name: Yojana Dior RN Position: [facility] RN Member Role: Primary Care Nurse Name: Farideh Balderas RN Position: [facility] Wrapper Sheeter Member Role: Primary Care Nurse Name: Roxana Ann RN Position: [facility] RN Member Role: Primary Care Nurse Name: Derick Calixto RN Position: [facility] RN Member Role: Primary Care Nurse Name: Fariba Ornelas RN Position: [facility] ED RN W/OE and Tasks Member Role: Primary Care Nurse Name: Steph Tierney RN Position: [facility] RN Member Role: Primary Care Nurse Name: Isidro Valle RN Position: [facility] RN Supv Member Role: Primary Care Nurse Name: Leny Shanks RN Position: [facility] RN Supv Member Role: Primary Care Nurse Name: Steph Smith RN Position: [facility] RN Member Role: Primary Care Nurse Name: Casandra Robbins RN Position: [facility] RN Member Role: Primary Care Nurse Name: Maris Crowell RN Position: [facility] RN Member Role: Primary Care Nurse Name: Coni Romero LPN Position: [facility] RN Member Role: Primary Care Nurse Name: Abigail Rabago RN Position: [facility] RN Member Role: Primary Care Nurse Name: Halina Burger RN Position: [facility] Onco RN Member Role: Primary Care Nurse Name: Linda Lockwood RN Position: [facility] Wrapper Sheeter Member Role: Primary Care Nurse Name: Ana Milian RN Position: [facility] RN Supv Member Role: Primary Care Nurse Name: Dedra Chatman RN, I Position: [facility] RN Member Role: Primary Care Nurse Name: David Oquendo RN Position: [facility] RN Supv Member Role: Primary Care Nurse Care Team Related Persons Name: JACKIE ALANIZ Address: home [address] [place] [address] Name: JUNO MENA Address: home [address] [place] [address] Name: JOVITA GALARZA Address: home [address] [place] [address] Name: KARL GALARZA Address: [place] [address] Name: EZEKIEL GALARZA Address: home [address] [place] [address] Name: SHAD TUBBS Address: home [address] [place] [id number]
--- OUTSIDE RECORDS SUMMARY | 2022-12-14 05:58 | XMS_ITS | Continuity of Care Document ---
Author Name Unknown Organization [facility] Address [address] [place] [address]- Care Team Providers Care Hearing Stenographer Name Role Phone Lesia Cuevas MD Primary Care Physician [facility] Date[facility]): 07/01/22 - 07/31/[address] [address]- Allergies, Adverse Reactions, Alerts Substance Reaction Severity [...] Comment: normal saline diluent added lot number [id number] expires 07/23/2022 2Result Comment: Afluria Medications allopurinol [...] days, # 14 tablet, 0 Refills, Acute 08/05/22 12:09:00 EDT, 07/29/22 12:09:00 EDT, Tablet, [facility] #[id number], Partial fill upon patient request if the prescription is... Start Date: 07/29/22 Stop Date: 08/05/22 Status: Ordered clindamycin 1% topical lotion 1 [...] Refills, Maintenance, 05/14/22 15:26:00 EDT, [facility], 163, cm, 05/12/22 16:01:00 EDT, Height, 61.5, [...] each, 6 Refills, Maintenance, 07/08/22 17:26:00 EDT, [place], Partial fill upon patient request if the prescription is for a schedule II opioid drug., 1 sprays Nares, Both 2 times a day, 163,... Start Date: 07/08/22 Status: Ordered folic acid 1 mg oral tablet 1 mg, 1, tablet, By Mouth, Daily, # 30 tablet, Refills 0, Tot. Refills 0, Maintenance, 05/12/22 15:17:00 EDT, [facility] 04/11/22 15:56:00 EST, Route to Pharmacy Electronically, [facility]/pharmacy #[id number], 163, cm, 04/11/22 15:32:00 EST, Height, 60.8, kg, 02/19/22 19:05:00 EST, Dry Weight Start Date: 04/11/22 Status: Ordered MiraLax oral powder for reconstitution = 17 Gm, By Mouth, Daily, dissolve in water before taking, # 255 Gm, 1 Refills, Maintenance, 04/11/22 21:05:00 EST, REC Powder, [facility]/pharmacy #1130, Partial fill upon patient request if the prescription is for a schedule II opioid drug., 17 Gm By Mouth... Start Date: 04/11/22 Status: Ordered nicotine 4 mg oral transmucosal gum See Instructions, CHEW 1 PIECE EVERY 2 HOURS NEEDED FOR SMOKING CESSATION, # 200 gum, 0 Refills,[facility] STORE [id number], 160, cm, 08/01/21 21:18:00 EDT, Height, 72.9, [...] days, # 84 tablet, 0 Refills, Acute 08/05/22 12:59:00 EDT, 07/29/22 12:59:00 EDT, Tablet, [facility] #[id number], Partialfill upon patient request if the prescription is fo... Start Date: 07/29/22 Stop Date: 08/05/22 Status: Ordered oxyCODONE 5 mg oral tablet 20 mg, 4, tablet, By Mouth, Every 4 hours, PRN, # 168 tablet, Refills 0, Tot. Refills 0, Maintenance, Pain , Severe, 07/18/22 12:19:00 EDT, Route to Pharmacy Electronically, [facility]/pharmacy #1130, Scripfor 5 mg tabs sent as [...] 05/12/22 15:17:00 EDT, [facility], [facility] Care Team Personnel Name: [place] Zuleta Position: [facility] Onco RN Member Role: Primary Care Nurse Name: Naila Hinds RN Position: [facility] RN Member Role: Primary Care Nurse Name: Marisa Rosario RN Position: [facility] RN Member Role: Primary Care Nurse Name: Carmen Hdez RN Position: [facility] ED RN W/OE and Tasks Member Role: Primary Care Nurse Name: Jordon Cruz RN Position: [facility] ED RN W/OE and Tasks Member Role: Primary Care Nurse Name: Daisy Rushing RN Position: [facility] RN Member Role: Primary Care Nurse Name: Corinna Fajardo RN Position: [facility] AMB Nurse Member Role: Primary Care Nurse Name: Ira Apodaca RN Position: [facility] ED RN W/OE and Tasks Member Role: Primary Care Nurse Name: Estefany Vincent RN Position: [facility] RN Member Role: Primary Care Nurse Name: Idania More RN Position: [facility] RN Member Role: Primary Care Nurse Name: Paola Rinaldi RN Position: [facility] RN Supv Member Role: Primary Care Nurse Name: Lian Joy RN Position: [facility] RN Member Role: Primary Care Nurse Name: Nikkie Sommers RN Position: [facility] RN Supv Member Role: Primary Care Nurse Name: Jasmine Ortega NP Position: [facility] Associate Professional Member Role: Primary Care Nurse Address: Address: [address] [place] [address]- [place] Name: Rivka Cook RN Position: [facility] RN Member Role: Primary Care Nurse Name: Daisy Brower RN Position: [facility] RN Member Role: Primary Care Nurse Name: Kimberly Skinner RN Position: [facility] RN Member Role: Primary Care Nurse Name: Abhishek Johnson RN Position: [facility] RN Member Role: Primary Care Nurse Name: Lesia Cuevas MD Position: [facility] Resident Member Role: PCP Address: Address: [address] [place] [id number]- [place] Name: Barbara Rae RN Position: [facility] AMB Nurse Member Role: Primary Care Nurse Name: Ina Renee RN Position: [facility] RN Member Role: Primary Care Nurse Name: Chel Torres RN Position: [facility] RN Member Role: Primary Care Nurse Name: Yesica Delong RN Position: [facility] ED RN W/OE and Tasks Member Role: Primary Care Nurse Name: Paula Earl RN Position: [facility] RN Member Role: Primary Care Nurse Name: Susan Miller RN Position: [facility] SN RN Member Role: Primary Care Nurse Name: Silva Colin RN Position: [facility] RN Supv Member Role: Primary Care Nurse Name: Pao Key Position: [facility] RN Member Role: Primary Care Nurse Name: Maris Trevino RN Position: [facility] ED RN W/OE and Tasks Member Role: Primary Care Nurse Name: Steph Gordillo RN Position: [facility] OB RN Member Role: Primary Care Nurse Name: Rene Ramos DO Position: [facility] Renal MD Member Role: Lifetime Consulting Physician Address: Address: [address] [place], [place] [address] [place] [address]- Name: Ryder Matthews Position: [facility] RN Member Role: Primary Care Nurse Name: Mary Correia RN Position: [facility] ED RN W/OE and Tasks Member Role: Primary Care Nurse Name: Tierra Razo RN Position: [facility] RN Member Role: Primary Care Nurse Name: Librado Saucedo RN Position: [facility] RN Member Role: Primary Care Nurse Name: Laron Davenport III, RN Position: [facility] RN Member Role: Primary Care Nurse Name: Danya Govea RN Position: [facility] RN Member Role: Primary Care Nurse Name: Idania Millard RN Position: [facility] RN Member Role: Primary Care Nurse Name: Blake Grant RN Position: [facility] SN RN Member Role: Primary Care Nurse Name: Mariella Ojeda RN Position: [facility] RN Member Role: Primary Care Nurse Name: Ana Do RN Position: [facility] RN Member Role: Primary Care Nurse Name: Yaquelin Dawkins RN Position: [facility] RN Member Role: Primary Care Nurse Name: Cari Khan RN Position: [facility] RN Member Role: Primary Care Nurse Name: Dequan Elliott RN Position: [facility] SN RN Member Role: Primary Care Nurse Name: Esmer Rankin RN Position: [facility] AMB Nurse Member Role: Primary Care Nurse Name: Juno Torres RN Position: [facility] Onco RN Member Role: Primary Care Nurse Name: Yojana Dior RN Position: [facility] RN Member Role: Primary Care Nurse Name: Farideh Balderas RN Position: [facility] Compliance Aide Member Role: Primary Care Nurse Name: Roxana Ann RN Position: [facility] RN Member Role: Primary Care Nurse Name: Vanessa Shelton RN Position: [facility] RN Member Role: Primary Care Nurse Name: Derick Calixto RN Position: [facility] RN Member Role: Primary Care Nurse Name: Fariba Bradley RN Position: [facility] RN Member Role: Primary Care Nurse Name: Fariba Ornelas RN Position: [facility] ED RN W/OE and Tasks Member Role: Primary Care Nurse Name: Steph Tierney RN Position: [facility] RN Member Role: Primary Care Nurse Name: Portia Baires RN Position: [facility] SN RN Member Role: Primary Care Nurse Name: Isidro Valle RN Position: [facility] RN Supv Member Role: Primary Care Nurse Name: Leny Shanks RN Position: [facility] RN Supv Member Role: Primary Care Nurse Name: Steph Smith RN Position: [facility] RN Member Role: Primary Care Nurse Name: Casandra Robbins RN Position: [facility] RN Supv Member Role: Primary Care Nurse Name: Maris Crowell RN Position: [facility] RN Member Role: Primary Care Nurse Name: Coni Romero LPN Position: [facility] RN Member Role: Primary Care Nurse Name: Abigail Rabago RN Position: [facility] RN Member Role: Primary Care Nurse Name: Halina Burger RN Position: [facility] Onco RN Member Role: Primary Care Nurse Name: Linda Lockwood RN Position: [facility] Compliance Aide Member Role: Primary Care Nurse Name: Dedra Chatman RN, I Position: [facility] RN Member Role: Primary Care Nurse Name: David Oquendo RN Position: [facility] RN Member Role: Primary Care Nurse Care Team Related Persons Name: KATTY JACKIE Address: home [address] [place] [address] Name: JUNO MENA Address: home [address] [place] [address] Name: JOVITA GALARZA Address: home [address] [place] [address] Name: KARL GALARZA Address: home [address] [place] [id number] Name: EZEKIEL GALARZA Address: home [address] [place] [address] Name: MICHAEL BARRETT Address: home [address] [place] [address] Name: SHAD TUBBS Address: home [address] [place] [id number]
--- OUTSIDE RECORDS SUMMARY | 2022-12-14 05:58 | XMS_ITS | Continuity of Care Document ---
Author Name Unknown Organization [facility] Address [address] [place] [id number] Care Team Providers Care Branch Logistics Supervisor Name Role Phone Lesia Cuevas MD Primary Care Physician En[place] [facility] [place] Date(s): 05/11/22 - 05/12/[address] [id number] Discharge Disposition: A-D/C Home Attending Physician: Briana Sesay MD Admitting Physician: Cale Gutierrez MD Referring Physician: Not on Staff, Referring [...] Comment: normal saline diluent added lot number [id number] expires 07/23/2022 2Result Comment: Afluria Medications allopurinol 100 mg oral tablet 100 mg, 1, tablet, By Mouth, Daily, # 90 tablet, Refills 1, Tot. Refills 1, Maintenance, 10/24/21 13:18:00 EDT, Route to Pharmacy Electronically, [facility]/pharmacy #[id number], Partial fill upon patient requestif the prescription is for a schedule II opioid lynn... Start Date: 10/24/21 Status: Ordered Augmentin 875 mg-125 mg oral tablet 1 tablet, By Mouth, 2 times a day, for 4 days, # 8 tablet, 0 Refills, Acute 05/16/22 15:18:00 EDT, 05/12/22 15:18:00 EDT, [id number], Partial fill upon patient request if the prescription is for a schedule II opioid drug., 163, cm, 05/12/22 12... Start Date: 05/12/22 Stop Date: 05/16/22 Status: Ordered clindamycin 1% topical lotion 1 application, Topically, 2 times a day, apply to L armpit lesions/bumps twice per day until healed, # 60 mL, 0 Refills, Maintenance, 10/24/21 15:35:00 EDT, Lotion, [facility]/pharmacy #[id number], Partial fill upon patient request if the prescription is for a amado... Start Date: 10/24/21 Status: Ordered Daily Lazara oral tablet 1 tablet, By Mouth, Daily Start Date: 07/03/21 Status: Ordered Dilaudid Inj 2 mg, Injection, IV Push Slowly, Every 4 hours, PRN for Pain , Severe, Routine, 05/10/22 22:35:00 EDT Start Date: 05/10/22 Stop Date: 05/13/22 Status: Discontinued diphenhydrAMINE 25 mg oral capsule 1 capsule, By Mouth, 3 times a day, PRN NEEDED FOR ITCHING, # 100 capsule, 1 Refills, Maintenance, 10/24/21 12:29:00 EDT, [id number], 160, cm, 10/24/21 11:46:00 EDT, Height, 72.9, kg, 08/01/21 21:18:00 EDT, Dry Weight Start Date: 10/24/21 Status: Ordered doxycycline hyclate 100 mg oral capsule 1 capsule = 100 mg, By Mouth, 2 times a day, for 4 days, # 8 capsule, 0 Refills, Acute 05/16/22 15:19:00 EDT, 05/12/22 15:19:00 EDT, Capsule, [id number], Partial fill upon patient request if the prescription is for a schedule II opioid drug.,... Start Date: 05/12/22 Stop Date: 05/16/22 Status: Ordered Estrace Vaginal Cream 0.1 mg/g [...] schedule II... Start Date: 10/24/21 Status: Ordered gabapentin 300 mg oral capsule 300 mg, Capsule, By Mouth, 05/12/22 9:00:00 EDT Start Date: 05/12/22 Stop Date: 05/12/22 Status: Completed hydroxyurea 500 mg oral capsule 1 capsule = 500 mg, By Mouth, 2 times a day Start Date: 07/03/21 Status: Ordered hydrOXYzine hydrochloride 50 mg oral tablet 1 tablet = 50 mg, By Mouth, 3 times a day, PRN as needed for anxiety, # 90 tablet, 5 Refills, Maintenance, 10/24/21 12:29:00 EDT, Tablet, [facility]/pharmacy #[id number], Partial fill upon patient request if the prescription is for a schedule II opioid drug., 160,... Start Date: 10/24/21 Status: Ordered loratadine 10 mg oral tablet 10 mg, 1, tablet, By Mouth, Daily, # 90 tablet, Refills 11, Tot. Refills 11, Maintenance, 04/11/22 15:56:00 EST, Route to Pharmacy Electronically, [facility]/pharmacy #[id number], 163, cm, 04/11/22 15:32:00 EST, Height, 60.8, kg, 02/19/22 19:05:00 EST, Dry Weight Start Date: 04/11/22 Status: Ordered MiraLax oral powder for reconstitution = 17 Gm, By Mouth, Daily, dissolve in water before taking, # 255 Gm, 1 Refills, Maintenance, 04/11/22 21:05:00 EST, REC Powder, [facility]/pharmacy #[id number], Partial fill upon patient request if the prescription is for a schedule II opioid drug., 17 Gm By Mouth... Start Date: 04/11/22 Status: Ordered nicotine 4 mg oral transmucosal gum See Instructions, CHEW 1 PIECE EVERY 2 HOURS NEEDED FOR SMOKING CESSATION, # 200 gum, 0 Refills,[id number], 160, cm, 08/01/21 21:18:00 EDT, Height, 72.9, kg, 08/01/21 21:18:00 EDT, Dry Weight Start Date: 08/05/21 Status: Ordered omeprazole 20 mg oral enteric coated capsule 1 capsule = 20 mg, By Mouth, Daily, # 90 capsule, 10 Refills, Maintenance, 10/24/21 12:29:00 EDT, [facility]/pharmacy #[id number], Partial fill upon patient request if the prescription is for a schedule II opioiddrug., 160, cm, 10/24/21 11:46:00 EDT, Height, 72.9... Start Date: 10/24/21 Status: Ordered oxyCODONE 10 mg oral tablet 2 tablet = 20 mg, By Mouth, Every 4 hours, PRN Pain , Moderate, # 84 tablet, 0 Refills, Maintenance, 05/08/22 15:29:00 EDT, Tablet, [facility]/pharmacy #[id number], Partial fill upon patient request [...] 05/12/22 15:17:00 EDT, Route to Pharmacy Electronically, [facility]/pharmacy #[id number], Partial fill upon patient request if the prescription is for a schedule II opioid drug... Start Date: 05/12/22 Status: Ordered QUEtiapine 25 mg oral tablet 1, tablet, By Mouth, 2 times a day, PRN, # 90 tablet, Refills 0, Tot. Refills 0, Maintenance, NEEDED FOR AGITATION, 01/01/22 10:03:00 EST, Route to Pharmacy Electronically, [facility]/pharmacy #[id number], 160, cm, 10/24/21 11:46:00 EDT, Height, 72.9, kg, 08/01... Start Date: 01/01/22 Status: Ordered sodium zirconium cyclosilicate 10 g oral powder for reconstitution = 5 Gm, By Mouth, Every Thursday and , # 30 each, 0 Refills, Maintenance, 02/24/22 10:38:00 EST, [facility]/pharmacy #[id number], Partial fill upon patient request if the prescription is for a schedule II opioid drug., 163, cm, 02/20/22 15:53:00 EST, Height,... Start Date: 02/24/22 Status: Ordered thiamine 100 mg oral tablet 100 mg, 1, tablet, By Mouth, Daily, for 30 days, # 30 tablet, Refills 0, Tot. Refills 0, Acute 06/11/22 15:17:00 EDT, 05/12/22 15:17:00 EDT, Route to Pharmacy Electronically, [facility]/pharmacy #[id number], Partial fill upon patient request [...] for Microbiology Reports Name Date Blood Culture 05/10/22 Blood Culture #2 05/10/22 Microbiology Reports TEST:Blood Culture, Second Order STATUS:Unauthenticated BODY SITE: SOURCE:Blood COLLECTED DATE/TIME:05/10/22 9:20 PM Blood Culture, Second Order SPECIMEN DESCRIPTION : BLOOD L HAND SPECIAL REQUESTS : NONE CULTURE : NO GROWTH AFTER 48 HOURS REPORT STATUS : PRELIMINARY REPORT TEST:Blood Culture STATUS:Unauthenticated BODY SITE: SOURCE:Blood COLLECTED DATE/TIME:05/10/22 9:04 PM Blood Culture SPECIMEN DESCRIPTION : BLOOD L HAND SPECIAL REQUESTS : NONE CULTURE : NO GROWTH AFTER 48 HOURS REPORT STATUS : PRELIMINARY REPORT Radiology Reports * Exam Date Time Procedure Performing Provider Status 05/11/22 12:18 AM [facility] Auth (Verified) Notes: (Chest Portable) Reason For Exam: Cough RESULT: Chest Portable AP upright portable chest dated May 11, 2022 at 0001 hours. Comparison films are from January 20172021. HISTORY: Cough. FINDINGS: The cardiac silhouette is mildly increased in size and unchanged. A CT Port-A-Cath is present on the right. Using jugular approach, the tip of the catheter overlies the distal SVC. No pneumothorax is seen. There are some minimal patchy bilateral infiltrates. Visualized osseous structures are unremarkable. IMPRESSION: Minimal bilateral infiltrates which could represent a viral or atypical pneumonia. Examination [address]. Thank you for allowing me to participate in the care of this patient. WSN: [id number] Ordering Physician: Niloy, Ahmed A Dictated By: Rodrigo Oh MD Dictated Date/Time: 05/11/22 10:14 a Reviewed By: Rodrigo Oh MD Signed By: Rodrigo Oh MD Signed Date/Time: 05/11/22 10:14 am Transcribed By: PRASHANT Transcribed Date/Time: 05/11/22 10:13 am Vital Signs Most recent to oldest [Reference Range]: 1 2 3 4 Height 163 cm (05/12/22 4:01 PM) 163 cm (05/12/22 12:00 PM) 163 cm (05/12/22 8:09 AM) Weight 61.5 kg (05/10/22 5:29 PM) Oxygen Saturation [94-100 %] 97 % (05/12/22 4:01 PM) 95 % (05/12/22 12:00 PM) 95 % (05/12/22 8:09 AM) Pulse Rate [55-90 bpm] 84 bpm (05/12/22 4:01 PM) 98 bpm *H* (05/12/22 12:00 PM) 85 bpm (05/12/22 8:09 AM) Body Mass Index [18.5-24.99 kg/m2] 23.15 kg/m2 (05/10/22 5:29 PM) Blood Pressure [90-138/55-84 mm Hg] 118/96mm Hg (05/12/22 4:01 PM) 108/60mm Hg (05/12/22 12:00 PM) 111/81mm Hg (05/12/22 8:09 AM) Respiratory Rate [16-30 br/min] 20 br/min (05/12/22 4:01 PM) 20 br/min (05/12/22 12:00 PM) 18 br/min (05/12/22 10:10 AM) 18 br/min (05/12/22 10:10 AM) Temperature [96.8-100.4 DegF] 98.4 DegF (05/12/22 4:01 PM) 97.4 DegF (05/12/22 12:00 PM) 98.3 DegF (05/12/22 8:09 AM) Liters per Minute 5 L/min (05/12/22 4:01 PM) 5 L/min (05/12/22 12:00 PM) 5 L/min (05/12/22 8:09 AM) Mode of Delivery (Oxygen) Nasal cannula (05/12/22 4:01 PM) Nasal cannula (05/12/22 12:00 PM) Nasal cannula (05/12/22 8:09 AM) Blood pressure sites Arm, right (05/12/22 4:01 PM) Arm, right (05/12/22 12:00 PM) Arm, right (05/12/22 8:09 AM) Temperature Route Oral (05/12/22 4:01 PM) Oral (05/12/22 12:00 PM) Oral (05/12/22 8:09 AM) Dry Weight 61.5 kg (05/10/22 5:29 PM) Weight Obtained Via Patient/family stated (05/10/22 5:29 PM) Dry Weight Obtained Via Patient/family stated (05/10/22 5:29 PM) Social History Social History Type Response Smoking Status Former smoker, quit more than 30 days ago entered on: 12/26/20 Sex History and physical note * Macy ARCHIBALD, Marcos Welch: PERFORM Event Display: History and Physical Hospital Authored Date: Patient: ??JOSE GALARZA ? Age:??52 Years?Sex:??Female?:??1970?? Chief Complaint/Reason for Consultation pain History of Present Illness 05/10/2022 ?? 52-year-old female with PMH including sickle cell anemia, thrombocytopenia, mild to moderate tricuspid regurgitation, moderate pulmonary hypertension, h/o severe COVID 19 (July 2020) c/b ARDS/intubation/trach/peg (now removed, on 5L baseline), anxiety, depression, tobacco use, alcohol use, cocaine abuse.?? Patient was sent to [facility] with concern regarding sickle cell crisis. ?? The patient states that she is having pain for the last 2 days.?? The pain is involving both upper extremities, upper back, pain over the chest, and both flanks, and to lesser extent over the lower extremities.?? She is unable to describe the pain but it is severe.?? She says that this pain is typical of her sickle cell crisis.?? She also complained of low-grade fever for the last 2 days along with cough with sputum production, some sore throat.?? No nausea, vomiting, diarrhea.?? No dysuria symptoms but the urine has strong odor . ?? So far patient is afebrile, blood pressure slightly soft with systolic in 90s, and she is on 5 L oxygen which is baseline.?? Her labs so far shows WBC 16.4 (she previously had similar values), hemoglobin is 6.9 seems to be her baseline, platelets 182, mild non-anion gap metabolic acidosis with bicarb 20, creatinine 1.1 which is near her baseline. ?? Patient has been started on IV fluid and IV pain medication. ? PMH: As above Social history: Patient said that she smokes 5 cigars a day.?? She also said she drinks 2 needs 3-4times a week along with beer.?? She also takes cocaine, last intake was 2 days ago.?? Denies any heroine/other opiate abuse. Family history: Her mother had sickle cell trait.?? Mother also had cancer and heart disease. ?? Review of Systems All systems reviewed and negative except as in HPI. Objective Measurements?? Height: 163 cm (05/10/22) Weight: 61.5 kg (05/10/22) Dry Weight: 61.5 kg (05/10/22) Body Mass Index: 23.15 kg/m2 (05/10/22) ? Vital Signs?? Temperature: 98.8 DegF (05/10/22 19:43:00) Temperature Route: Oral (05/10/22 19:43:00) Pulse Rate: 90 bpm (05/10/22 19:43:00) Respiratory Rate: 18 br/min (05/10/22 19:43:00) Systolic Blood Pressure: 121 mm Hg (05/10/22 19:43:00) Diastolic Blood Pressure: 69 mm Hg (05/10/22 19:43:00) Blood pressure sites: Arm, left (05/10/22 19:43:00) Mean Arterial Pressure: 86 mm Hg (05/10/22 19:43:00) Pulse Pressure: 52 mm Hg (05/10/22 19:43:00) Oxygen Saturation: 98 % (05/10/22 19:43:00) Liters per Minute: 6 L/min (05/10/22 17:05:00) Mode of Delivery (Oxygen): Room air (05/10/22 19:43:00) Early Warning Score: 3 (05/10/22 19:45:35) ? Physical Exam Constitutional: ??Alert,??seems to be in pain, on oxygen. Mental state: Oriented x 3. Head: ??Normocephalic, atraumatic. ?? Eye:?No discharge. Icteric. ENT: No discharge. Neck: ??Supple,??no JVD. Prev scar paul. Cardiovascular: ??S1, S2. Regular rhythm. No MRG. Port on right side of chest. Respiratory: ??Lungs are clear to auscultation b/l, mild crackle on right base. Gastrointestinal: ??Soft, Nontender, Non distended, ??Normal bowel sounds.?? Genitourinary: No costovertebral angle tenderness. Neurological: ??Cranial nerves intact. Motor and sensory intact. Back: ??Nontender. Musculoskeletal: ??Normal ROM.?? No edema Hematology: No lymphadenopathy Skin: ??Warm, dry. Scratch paul all over. Psychiatric: ??Cooperative.?? Assessment/Plan Diagnoses Cough ??(R05.9) Fever ??(R50.9) Foul smelling urine ??(R82.90) Sickle cell crisis ??(D57.00) ?? Assessment:??52-year-old female with PMH including sickle cell anemia, thrombocytopenia, mild to moderate tricuspid regurgitation, moderate pulmonary hypertension, h/o severe COVID 19 (July 2020) c/bARDS/intubation/trach/peg (now removed, on 5L baseline), anxiety, depression, tobacco use, alcohol use, cocaine abuse. Patient was sent to [facility] with concern regarding sickle cell crisis. ?? Sickle cell crisis (D57.00):??. Patient presents with??pain??over??both upper extremities,??some pain over the lower extremities,??upper back, chest pain??and pain over the both??flanks. ??Patient says that this is her typical sickle cell crisis pain.?? She has this pain for about 2 days.?? She??says that she had some fever??for the last 2 days as well,??is coughing with some sputum production??and has foul-smelling urine.?? Possibly sickle cell crisis??precipitated by??concurrent infection.?? Patient also??is not drinking enough water,??likely dehydrated, again??may be the cause of??crisis. ?? Continue??IV fluid hydration. Continue??pain medication,??we will give??Dilaudid??1 mg every 4 hours,??increase dose and frequency??if pain is not controlled. Continue with Benadryl??25 mg every 6 hours IV. We will provide thiamine, folic acid, multivitamin. We will check??H&H closely, transfuse as required.?? Currently hemoglobin 6.9??which seems her baseline.?? Keep active??type and screen. We will monitor??reticulocyte count, LDH,??hemolysis panel. Chest pain less likely??cardiac, however we will check??troponin and??EKG. Monitor oxygen saturation and supplement with oxygen as required. Does not take hydroxyurea. Consider hematology??consult. ?? Fever (R50.9):??. Cough (R05.9):??. Foul smelling urine (R82.90):??. Concern regarding??infectious condition causing??sickle cell crisis.?? Patient states that she had fever??low-grade for about 2 days, is coughing with some sputum production,??has sore throat,??and has foul-smelling urine but no dysuria symptoms.?? Could be viral, however we will rule out??other bacterial cause.?? We will get a blood culture. ??We will get a chest x-ray. ??Will get a UA.?? We will get procalcitonin level.?? Further work-up??based on the reports.?? Hold antibiotic??pending further work-up. ?? Chronic conditions/Home medication: Chronic hypoxic respiratory failure: Patient is on 5 L oxygen which is baseline, monitor. Continue allopurinol. Continue gabapentin. Continue PPI. We will consult??addiction control??for??tobacco/alcohol/cocaine use.?? Monitor for any??withdrawal??from alcohol.?? We will provide??folic acid,??thiamine,??multivitamin,??paroxetine. ?? VTE Prophylaxis:??heparin s/c ?VTE Prophylaxis Assessment:??VTE Prophylaxis Ordered ?? Code Status:??full code ?Order Code Status:??Code Status Ordered ?? Discharge Planning:? Histories Allergies Allergies ?(Active [...] quit more than 30 days ago. ? Family History Mother: Sickle cell trait Father: Sickle cell trait ? Medications Home Medications Albuterol (ProAir HFA 90 mcg/inh inhalation aerosol)?2?puff(s)?Inhalation?Every 6 hours Allopurinol (allopurinol 100 mg oral tablet)?100?Milligram?1?tablet?By Mouth?Daily Clindamycin Topical (clindamycin 1% topical lotion)?1?tracy?Topically?2 times a day?apply to L armpit lesions/bumps twice per day until healed DiphenhydrAMINE (diphenhydrAMINE 25 mg oral capsule)?1?capsule?By Mouth?3 times a day?as needed? NEEDED FOR ITCHING Emollients, Topical (Eucerin Plus topical lotion)?1?tracy?Topically?2 times a day?as needed?for dry skin Estradiol Topical (Estrace Vaginal Cream 0.1 mg/g)?1?gram?Vaginally?Daily [...] tablet)?2?tab(s)?20?Milligram?By Mouth?Every 4 hours?as needed?Pain , Moderate Polyethylene Glycol 3350 (MiraLax oral powder for reconstitution)?17?gram?By Mouth?Daily?dissolve in water before taking Quetiapine (QUEtiapine 25 mg oral tablet)?1?tablet?By Mouth?2 times a day?as needed? NEEDED FOR AGITATION sodium zirconium cyclosilicate (sodium zirconium cyclosilicate 10 g oral powder for reconstitution)?5?gram?By Mouth?Every Thursday and ? Inpatient Medications Medications (23) Active SCHEDULED: (9) Allopurinol 100 mg Tablet [...] mL, Subcutaneous Injection, 3 times a day Multivitamin Tablet ??1 tablet, By Mouth, Daily NaCl 0.9% Flush 3ml (NaCL 0.9% Flush) ??3 mL, IV Push, Every 8 hours NaCl 0.9% Flush 3ml (NaCL 0.9% Flush) ??3 mL, IV Push, Every 8 hours Pantoprazole 20 mg EC Tablet (pantoprazole 20 mg oral delayed release tablet) ??20 mg, By Mouth, Daily Thiamine 100 mg Tablet (thiamine 100 mg oral tablet) ??100 mg, By Mouth, Daily CONTINUOUS: (1) Lactated Ringers (1000 mL) Cont IV 1,000 mL (LR 1,000 mL) ??1,000 mL, IV Infusion, 125 mL/hr PRN: (13) Acetaminophen 325 mg Tablet (Acetaminophen Tablet) ??650 mg, By Mouth, Every 4 hours Dextromethorphan-Guaifenesin 20 mg-200 mg/10 mL Liqu UD (Robitussin DM Liquid) ??10 mL, By Mouth, Every 4 hours diphenhydrAMINE 50 mg/mL Inj (DiphenhydrAMINE Inj) ??25 mg 0.5 mL, IV Push, Every 4 hours HYDROmorphone 1 mg/mL Inj Syringe (Dilaudid Inj) ??1 mg 1 mL, IV Push Slowly, Every 4 hours Melatonin 3 mg Tablet (Melatonin Tablet) ??3 mg, By Mouth, Daily at bedtime NaCl 0.9% Flush 3ml (NaCL 0.9% Flush) ??3 mL, IV Push, Every 8 hours NaCl 0.9% Flush 3ml (NaCL 0.9% Flush) ??3 mL, IV Push, Every 8 hours Ondansetron 2mg/mL Inj (2mL Vial) (Ondansetron Inj) ??4 mg, IV Push, Every 4 hours Polyethylene Glycol 17 Gm Powder (MiraLax Powder) ??17 Gm 1 pack/packet, By Mouth, Daily Polyethylene Glycol 17 Gm Powder (Polyethylene Glycol Powder) ??17 Gm 1 pack/packet, By Mouth, Daily Senna 8.6 mg / Docusate 50 mg tablet (Docusate/Senna Tablet) ??1 tablet, By Mouth, 2 times a day Senna 8.6 mg / Docusate 50 mg tablet (Docusate/Senna Tablet) ??1 tablet, By Mouth, 2 times a day Simethicone 80 mg Chewable Tablet (Simethicone Tablet) ??80 mg, Chew, 3 times a day ? Results Recent Labs BLOOD COUNT & DIFF WBC 16.4 k/mm3 (High)?? 05/10/2022 18:00 RBC 1.93 m/mm3 (Low)?? 05/10/2022 18:00 Hgb 6.9 Gm/dL (Low)?? 05/10/2022 18:00 Hct 18.4 % (Critical)?? 05/10/2022 18:00 MCV 95.3 femtoliters ()?? 05/10/2022 18:00 MCH 35.8 pg (High)?? 05/10/2022 18:00 MCHC 37.5 g/dL (High)?? 05/10/2022 18:00 Platelet Count 182 k/mm3 ()?? 05/10/2022 18:00 RDW-SD 75.9 femtoliters (High)?? 05/10/2022 18:00 MPV 12.0 femtoliters ()?? 05/10/2022 18:00 Nucleated RBC (Automated) 12.7 #/100 WBC'S ()?? 05/10/2022 18:00 Abs. NRBC 2.1 k/mm3 ()?? 05/10/2022 18:00 Abs. Neut 11.2 k/mm3 (High)?? 05/10/2022 18:00 Abs. Lymph 2.3 k/mm3 ()?? 05/10/2022 18:00 Abs. Pope 2.2 k/mm3 (High)?? 05/10/2022 18:00 Abs. Eo 0.3 k/mm3 ()?? 05/10/2022 18:00 Abs. Baso 0.2 k/mm3 (High)?? 05/10/2022 18:00 Neut % 68.3 % ()?? 05/10/2022 18:00 Lymph % 14.2 % (Low)?? 05/10/2022 18:00 Pope % 13.5 % (High)?? 05/10/2022 18:00 Eos % 2.1 % ()?? 05/10/2022 18:00 Baso % 0.9 % ()?? 05/10/2022 18:00 RBC Morphology MODERATE ()?? 05/10/2022 18:00 Imm Gran 1.0 % ()?? 05/10/2022 18:00 Abs. Imm Gran 0.2 k/mm3 ()?? 05/10/2022 18:00 ?? CHEM GENERAL Sodium 138 mmol/L ()?? 05/10/2022 18:00 Potassium 4.7 mmol/L ()?? 05/10/2022 18:00 Chloride 104 mmol/L ()?? 05/10/2022 18:00 Bicarbonate Level 20 mmol/L (Low)?? 05/10/2022 18:00 Anion Gap 14 ()?? 05/10/2022 18:00 BUN 13 mg/dL ()?? 05/10/2022 18:00 Creatinine-Blood 1.1 mg/dL (High)?? 05/10/2022 18:00 Estimated GFR Creatinine 62 ML/MIN/1.73 M2 ()?? 05/10/2022 18:00 Magnesium 2.0 mg/dL ()?? 05/10/2022 18:00 ? EKG study * Event Display: ECG 12-Lead Authored Date: Please click on pdf link to open report * Event Display: ECG 12-Lead Authored Date: Ventricular Rate: 92 BPM Atrial Rate: 92 BPM P-R Interval: 132 ms QRS Duration: 88 ms Q-T Interval: 376 ms QTC Calculation(Bazett): 464 ms P Geneva: 57 degrees R Geneva: 23 degrees T Geneva: 54 degrees Normal sinus rhythm Possible Left atrial enlargement Nonspecific T wave abnormality Abnormal ECG When compared with ECG of 20-FEB-2022 15:28, Minimal criteria for Septal infarct are no longer Present Nonspecific T wave abnormality now evident in Lateral leads Confirmed by DERICK JOSUE ([id number]) on 05/12/2022 8:40:03 AM [place]: DERICK JOSUE [facility] Progress note * Destiny Macias RN: PERFORM, SIGN, VERIFY, MODIFY, SIGN Event Display: Progress Note Hospital Authored Date: Patient: JOSE GALARZA Age: 52 years Sex: Female : 1970 Associated Diagnoses: None Author: Destiny Macias RN Findings Problem Related to Alteration in Comfort : Alteration in Comfort/new 05/11/2022 21:00 EDT Alteration in Comfort Related to Disease process Goals & Outcomes: Comfort Pt will report acceptable level of comfort & pain control, Pt will state importance of adhering to pain strategy regime, Pt will demonstrate necessary skills to manage pain, Non-verbal indicators will indicate comfort/pain control Interventions Implemented: Comfort Assess pain using appropriate pain scale/tools, Assess aggravating factors & prevent them accordingly, Assess alleviating factors & promote them accordingly BH Goals/Interventions, Comfort Yes Comfort, Problem Start 05/11/2022 21:00 Reviewed plan with, Comfort Patient Patient Progression, Comfort Plan Initiation Comfort, Problem Ongoing Yes . Evaluation Patient very somnolent; answering some questions and following some commands, but not the others; unable to collect the subjective info. Did not admin scheduled Gabapentin 300 mg because of sleepiness/lethargy. No external cues of pain noted: when not stimulated- the patient noted sleeping peacefully. Skin intact; extremities warm and dry; no edema noted. Palpable radial and pedal pulses, bilaterally. Patient afebrile; normotensive. Lung sounds clear anteriorly; occasional productive cough noted. Patient on home oxygen via NC (humidified) at 5LPM; on continuous oxygen monitoring; oxygen sats:93-100%. Patient noted scratching her skin and thrashing around in bed; admin PRN IV Benadryl 25 mgat 2019, with + effect. Abdomen soft; non-tender; + BS. Side rails padded for safety (patient exhibiting frequent jerky movements); bed alert on. Patient bladder scanned for 696 mL of urine at 1950; straight catheterized for 895 mL clear, yellowurine at 2155. The patient tolerated the procedure well. Blood transfusion finished at 1920; no reactions or changes in VS noted. H&H- 8.1/22.2 and 7.4/20.1 at 2312 and 0109, respectively. IV Ceftriaxone 1 gm admin late (the day shift nurse was not able to admin). LR restarted at 125 mL/hr, as ordered. WBC and K improved to 15.8 and 4.4, respectively. Plan: continue abx for PNA; symptom management; monitor H&H; IV hydration. Call hernández and personal items in reach. For full assessment details, see CIS. Will continue monitoring the patient. Patient bladder scanned for 1012 mL urine at 0400, the time at which the patient fully woke up and asked for food, Benadryl, and pain med. Patient was able to void on her own on the commode without straining (denied any dysuria) - 750 mL of clear, yellow (slightly concentrated), odorless urine. PVR- 412 mL; will ask the patient to void one more time before the change of shift. Patient endorsed R great toe pain, arms, and shoulder pain (worse on L) at 9/10. Patient denied any dizziness, lightheadedness, headache, nausea, SOB, or paresthesia in extremities. Lung sounds: clear in upper lobes; fine crackles auscultated on bases. PRN IV Dilaudid 2 mg and PRN IV Benadryl 25 mg admin at 0430, effects pending. Will continue monitoring the patient. . * Nerissa Maddox RN: PERFORM, SIGN, VERIFY Event Display: Progress Note Hospital Authored Date: Patient: JOSE GALARZA Age: 52 years Sex: Female : 1970 Associated Diagnoses: None Author: Varsha GAY, Nerissa Pt restless and thrashing in bed. Pt on 5L o2 at baseline. Pt removing o2 while thrashing, destating to 50's when NC is removed. Order for continuous o2 obtained. When NC in place stats in high 90s. UA ordered overnight, pt had not voided. At 1100 pt was bladder scanned, and noted to have 922 mls in bladder. Offered pt bedside commode. Pt sat, said she urinated but only small amount of pus in commode. MD at bedside at time, okayed straight cath. Pt was straight cath and 900 ml of dark, foul smelling urine emptied. UA sent. Pt much less restless after bladder emptied. Critical Hgb of 6 ad hct of 16.[address] Farrell. obtained consent for transfusion. Will administer as ordered when blood is available. All safety measures in place. Will continue with plan of care as ordered. * Bud ARCHIBALD, [facility]: PERFORM Event Display: Progress Note Hospital Authored Date: [id number] Patient: ??JOSE GALARZA ? Age:??52 Years?Sex:??Female?:??1970?? Subjective Seen and examined at bedside. Appears to be acutely sick. Chest x-ray was concerning??about??pneumonia and started on??ceftriaxone and Zithromax. ??Worseningleukocytosis noted. Hemoglobin count 6 this morning. ??1 unit of PRBC ordered. Patient was retaining around??900 cc around noon time. ??Asked RN to do a straight cath. Patient was placed on continuous O2 monitor as??she was restless and was desatting??while taking off from oxygen. Review of Systems Constitutional:??No fever. RS:??Reports??mild shortness of breath CVS:??Denies any chest pain, palpitations, orthopnea GI:??Denies any nausea, vomiting, Neuro:??No headache, disorientation or focal muscle weakness. Musculoskeletal:??Reports generalized muscle pain Psych:??no depression Objective Vital Signs?? Temperature: 99.7 DegF (05/11/22 07:53:00) Temperature Route: Oral (05/11/22 07:53:00) Pulse Rate:??104 bpm??High (05/11/22 07:53:00) Respiratory Rate: 18 br/min (05/11/22 08:50:00) Systolic Blood Pressure:??80 mm Hg??Low (05/11/22 07:53:00) Diastolic Blood Pressure: 61 mm Hg (05/11/22 07:53:00) Blood pressure sites: Arm, left (05/11/22 07:53:00) Mean Arterial Pressure: 67 mm Hg (05/11/22 07:53:00) Pulse Pressure: 19 mm Hg (05/11/22 07:53:00) Oxygen Saturation:??91 %??Low (05/11/22 07:53:00) Liters per Minute: 5 L/min (05/11/22 07:53:00) Mode of Delivery (Oxygen): Nasal cannula (05/11/22 07:53:00) Early Warning Score:??14??Critical (05/11/22 11:25:02) ? Physical Exam ?? General: Ill-appearing. Cardiac: S1 + S2 + 0, no murmurs heard Respiratory: CTA, No wheezes, Rales or crackles heard Abdomen: soft, nondistended, nontender Extremities: No edema or cyanosis present Neurological: AO X3,cranial nerves grossly normal? Results Test Name Test Result Date/TimeWBC 19.2 k/mm3 (High) 05/11/2022 09:22 EDT RBC 1.66 m/mm3 (Low) 05/11/2022 09:22 EDT Hgb 6.0 Gm/dL (Critical) 05/11/2022 09:22 EDT Hct 16.2 % (Critical) 05/11/2022 09:22 EDT MCV 97.6 femtoliters 05/11/2022 09:22 EDT MCH 36.1 pg (High) 05/11/2022 09:22 EDT MCHC 37.0 g/dL 05/11/2022 09:22 EDT Platelet Count 140 k/mm3 (Low) 05/11/2022 09:22 EDT RDW-SD 71.0 femtoliters (High) 05/11/2022 09:22 EDT MPV 12.3 femtoliters 05/11/2022 09:22 EDT Sodium 139 mmol/L 05/11/2022 09:22 EDT Potassium 5.3 mmol/L (High) 05/11/2022 09:22 EDT Chloride 105 mmol/L 05/11/2022 09:22 EDT Bicarbonate Level 27 mmol/L 05/11/2022 09:22 EDT Glucose Level 100 mg/dL (High) 05/11/2022 09:22 EDT Creatinine-Blood 1.1 mg/dL (High) 05/11/2022 09:22 EDT Estimated GFR Creatinine 63 ML/MIN/1.73 M2 05/11/2022 09:22 EDT Assessment/Plan ?? Globin -filt-jav female with PMH including sickle cell anemia, thrombocytopenia, mild to moderate tricuspid regurgitation, moderate pulmonary hypertension, h/o severe COVID 19 (July 2020) c/b ARDS/intubation/trach/peg (now removed, on 5L baseline), anxiety, depression, tobacco use, alcohol use, cocaine abuse. Patient was sent to [facility] with concern regarding sickle cell crisis. ?? Sickle cell crisis (D57.00):??. Patient presents with??pain??over??both upper extremities,??some pain over the lower extremities,??upper back, chest pain??and pain over the both??flanks. ??Patient says that this is her typical sickle cell crisis pain.?? She has this pain for about 2 days.?? She??says that she had some fever??for the last 2 days as well,??is coughing with some sputum production??and has foul-smelling urine.?? Possibly sickle cell crisis??precipitated by??concurrent infection.?? Patient also??is not drinking enough water,??likely dehydrated, again??may be the cause of??crisis. Continue??IV fluid hydration. Continue??pain medication,??we will give??Dilaudid??2 mg every 4 hours,??increase dose and frequency??if pain is not controlled. Continue with Benadryl??25 mg every 6 hours IV. We will provide thiamine, folic acid, multivitamin. Hemoglobin count 6 this morning.??1 unit of PRBC transfusion ordered. Monitor oxygen saturation and supplement with oxygen as required. Does not take hydroxyurea. ?? Fever (R50.9):??. Cough (R05.9):??. Foul smelling urine (R82.90):??. Concern regarding??infectious condition causing??sickle cell crisis.?? Patient states that she had fever??low-grade for about 2 days, is coughing with some sputum production,??has sore throat,??and has foul-smelling urine but no dysuria symptoms. Urine appears to be cloudy. CXR with Minimal bilateral infiltrates which could represent a viral or atypical pneumonia. Worsening leukocytosis noted. ??Started on ceftriaxone and Zithromax. Updraft nebulization as needed. At home she is on 5 to 6 L nasal cannula oxygen which I will continue.?? Continuous O2 monitor on board. ?? Urinary retention:??Patient was retaining??900 cc required straight cath. Continue to monitor closely??with bladder scan. Encourage ambulation. ? Chronic conditions/Home medication: Chronic hypoxic respiratory failure: Patient is on 5-6 L oxygen which is baseline, monitor. Continue allopurinol. Continue gabapentin. Continue PPI. We will consult??addiction control??for??tobacco/alcohol/cocaine use.?? Monitor for any??withdrawal??from alcohol.?? We will provide??folic acid,??thiamine,??multivitamin,??paroxetine. ?? VTE Prophylaxis:??heparin s/c Code Status:??full code ? Note * Elaine Maldonado RN: PERFORM Event Display: Discharge/Transfer Note Hospital Authored Date: [id number] Nursing Discharge Note Entered On: 05/12/2022 16:34 EDT Performed On: 05/12/2022 16:33 EDT by Elaine Maldonado RN Nursing Discharge Note 2 Discharge Time : 05/12/2022 16:33 EDT Discharge Level of Care at Discharge : Home/Senior Care/Foster Care Patient Left Unit Via : Wheelchair Patient Accompanied Off Unit with : Responsible adult DC Instructions Provided & Signed by Pt : Yes Patient Understands D/C Instructions : Yes Patient Instructions Discharge Signed : Yes Did Pt have Specialty Bed or Wound Vac : Cayla Maldonado RN, Elaine - 05/12/2022 16:33 EDT * Shama ARCHIBALD, Briana: PERFORM Event Display: Discharge/Transfer Note Hospital Authored Date: [id number] Patient: ??JOSE GALARZA ? Age:??52 Years?Sex:??Female?:??1970?? Patient Information Discharge Location: B Primary Care Physician: Lesia Cuevas MD Admit Date/Time: 05/11/22 16:06 Discharge Disposition Discharge Disposition: Home: No Services Discharge Diagnosis Cough (R05.9) Fever (R50.9) Foul smelling urine (R82.90) Sickle cell crisis (D57.00) ?? _ Discharge Medications Albuterol (ProAir HFA 90 mcg/inh inhalation aerosol)?2?puff(s)?Inhalation?Every 6 hours Allopurinol (allopurinol 100 mg oral tablet)?100?Milligram?1?tablet?By Mouth?Daily Amoxicillin-Clavulanate (Augmentin 875 mg-125 mg oral tablet)?1?tab(s)?By Mouth?2 timesa day?for 4?Days Clindamycin Topical (clindamycin 1% topical lotion)?1?tracy?Topically?2 times a day?apply to L armpit lesions/bumps twice per day until healed DiphenhydrAMINE (diphenhydrAMINE 25 mg oral capsule)?1?capsule?By Mouth?3 times a day?as needed? NEEDED FOR ITCHING Doxycycline (doxycycline hyclate 100 mg oral capsule)?1?capsule?100?Milligram?By Mouth?2 times a day?for 4?Days Emollients, Topical (Eucerin Plus topical lotion)?1?tracy?Topically?2 times a day?as needed?for dry skin Estradiol Topical (Estrace Vaginal Cream 0.1 mg/g)?1?gram?Vaginally?Daily at bedtime Folic Acid (folic acid 1 mg oral tablet)?1?Milligram?1?tablet?By Mouth?Daily Gabapentin (gabapentin 300 mg oral capsule)?300?Milligram?1?capsule?By Mouth?3 [...] tablet)?2?tab(s)?20?Milligram?By Mouth?Every 4 hours?as needed?Pain , Moderate Polyethylene Glycol 3350 (MiraLax oral powder for reconstitution)?17?gram?By Mouth?Daily?dissolve in water before taking Pyridoxine (pyridoxine 50 mg oral tablet)?50?Milligram?1?tablet?By Mouth?Daily Quetiapine (QUEtiapine 25 mg oral tablet)?1?tablet?By Mouth?2 times a day?as needed? NEEDED FOR AGITATION sodium zirconium cyclosilicate (sodium zirconium cyclosilicate 10 g oral powder for reconstitution)?5?gram?By Mouth?Every Thursday and Thiamine (thiamine 100 mg oral tablet)?100?Milligram?1?tablet?By Mouth?Daily?for 30?Days ? Medications Started Augmentin Doxycycline Thiamine Pyridoxine Foilic acid Medications Discontinued None Doses Changed None Allergies Allergies ?(Active and Proposed Allergies Only) Compazine? (Severity: Unknown severity, Onset: Unknown) ?Reactions: tongue swelling ? Future Appointments Thursday 3:00 PM EDT ?? With: Lesia Cuevas MD Where: [address] [address]- Thursday 1:00 PM EDT ?? With: Where: [address] [address]- Objective Assessment and Plan ?[id number] female with PMH including sickle cell anemia, thrombocytopenia, mild to moderatetricuspid regurgitation, moderate pulmonary hypertension, h/o severe COVID 19 (July 2020) c/b ARDS/intubation/trach/peg (now removed, on 5L baseline), anxiety, depression, tobacco use, alcohol use, cocaine abuse. Patient was sent to [facility] with concern regarding sickle cell crisis. ?? Sickle cell crisis (D57.00):??. Patient presents with??pain??over??both upper extremities,??some pain over the lower extremities,??upper back, chest pain??and pain over the both??flanks. ??Patient says that this is her typical sickle cell crisis pain.?? She has this pain for about 2 days.?? She??says that she had some fever??for the last 2 days as well,??is coughing with some sputum production??and has foul-smelling urine.?? Possibly sickle cell crisis??precipitated by??concurrent infection.?? Patient also??is not drinking enough water,??likely dehydrated, again??may be the cause of??crisis. Pain resolved after pneumonia treatment Prescribed antibiotics on discharge, resume home pain meds ?? Fever (R50.9):??. Cough (R05.9):??. Foul smelling urine (R82.90):??. Concern regarding??infectious condition causing??sickle cell crisis.?? Patient states that she had fever??low-grade for about 2 days, is coughing with some sputum production,??has sore throat,??and has foul-smelling urine but no dysuria symptoms. CXR with bilateral minimal infiltrates but patient had respiratory symptoms which improved with antibiotics Will prescribe antibiotics on discharge and complete 5 day course for pneumonia with augmentin and doxycycline PCP and hot car charger follow up ?? Urinary retention:??Patient was retaining??900 cc required straight cath. Ambulated and voided without issues after this ? Chronic conditions/Home medication: Chronic hypoxic respiratory failure: Patient is on 5-6 L oxygen which is baseline, monitor. Continue allopurinol. Continue gabapentin. Continue PPI. We will consult??addiction control??for??tobacco/alcohol/cocaine use.? We will provide??folic acid,??thiamine,??multivitamin,??paroxetine - addiction medicine provided rehab resources prior to discharge ?? Vital Signs?? Temperature: 97.4 DegF (05/12/22 12:00:00) Temperature Route: Oral (05/12/22 12:00:00) Pulse Rate:??98 bpm??High (05/12/22 12:00:00) Respiratory Rate: 20 br/min (05/12/22 12:00:00) Systolic Blood Pressure: 108 mm Hg (05/12/22 12:00:00) Diastolic Blood Pressure: 60 mm Hg (05/12/22 12:00:00) Blood pressure sites: Arm, right (05/12/22 12:00:00) Mean Arterial Pressure: 76 mm Hg (05/12/22 12:00:00) Pulse Pressure: 48 mm Hg (05/12/22 12:00:00) Oxygen Saturation: 95 % (05/12/22 12:00:00) Liters per Minute: 5 L/min (05/12/22 12:00:00) Mode of Delivery (Oxygen): Nasal cannula (05/12/22 12:00:00) Early Warning Score:??10??Critical (05/12/22 12:00:50) ? Mobility & Ambulation Level Mobility & Ambulation Level?? No qualifying data available. ?? Therapeutic Activity Therapeutic Activities/Mobility/Balance?? No qualifying data available. ?? . Physical Exam General: Ill-appearing. Cardiac: S1 + S2 + 0, no murmurs heard Respiratory: CTA, No wheezes, Rales or crackles heard Abdomen: soft, nondistended, nontender Extremities: No edema or cyanosis present Neurological: AO X3,cranial nerves grossly normal? Consultants None Pending Results Add On Lab Order ordered on 05/10/2022 Beta HCG Serum (Females Only) ordered on 05/10/2022 Blood Culture ordered on 05/10/2022 Blood Culture #2 ordered on 05/10/2022 COVID-19 (2019 Novel Coronavirus) PCR ordered on 05/12/2022 Hgb + Hct ordered on 05/11/2022 Transfuse RBCs ordered on 05/11/2022 Follow-Up Appointments Added Follow Up ?Time Frame ?Comments Lesia Cuevas MD Patient Instructions Please take antibiotics as prescribed for 4 more days Follow up with your pcp and hot car charger??within 1 week of discharge FOllow up with rehab resources provided by [facility] (coordinator) inpatient Post Discharge Care Discharge ?05/12/22 15:24:00 EDT Discharge Prescriptions ?ePrescribed, ??05/12/22 15:24:00 EDT Home Health Face to Face ^HomeHealthFTF Results Discharge Labs BLOOD BANK Blood Type O Positive ()?? 05/10/2022 20:21 Antibody Screen Positive ()?? 05/10/2022 20:21 RBC Unit ID [id number] ()?? 05/11/2022 12:19 RBC Available PT ()?? 05/11/2022 12:19 ?? BLOOD COUNT & DIFF WBC 15.8 k/mm3 (High)?? 05/12/2022 01:09 RBC 2.13 m/mm3 (Low)?? 05/12/2022 01:09 Hgb 7.6 Gm/dL (Low)?? 05/12/2022 08:16 Hct 21.1 % (Low)?? 05/12/2022 08:16 MCV 94.4 femtoliters ()?? 05/12/2022 01:09 MCH 34.7 pg (High)?? 05/12/2022 01:09 MCHC 36.8 g/dL ()?? 05/12/2022 01:09 Platelet Count 113 k/mm3 (Low)?? 05/12/2022 01:09 RDW-SD 69.0 femtoliters (High)?? 05/12/2022 01:09 MPV 13.3 femtoliters (High)?? 05/12/2022 01:09 Nucleated RBC (Automated) 13.9 #/100 WBC'S ()?? 05/12/2022 01:09 Abs. NRBC 2.2 k/mm3 ()?? 05/12/2022 01:09 Abs. Neut 10.0 k/mm3 (High)?? 05/12/2022 01:09 Abs. Lymph 3.6 k/mm3 (High)?? 05/12/2022 01:09 Abs. Pope 1.0 k/mm3 (High)?? 05/12/2022 01:09 Abs. Eo 0.6 k/mm3 (High)?? 05/12/2022 01:09 Abs. Baso 0.5 k/mm3 (High)?? 05/12/2022 01:09 Neut % 61.0 % ()?? 05/12/2022 01:09 Lymph % 23.0 % ()?? 05/12/2022 01:09 Pope % 6.0 % ()?? 05/12/2022 01:09 Eos % 4.0 % ()?? 05/12/2022 01:09 Baso % 3.0 % (High)?? 05/12/2022 01:09 Myelocytes % 1.0 % ()?? 05/12/2022 01:09 Band % 2.0 % ()?? 05/12/2022 01:09 RBC Morphology MODERATE ()?? 05/12/2022 01:09 Platelet Estimate DECREASED ()?? 05/12/2022 01:09 Retic Count 11.5 % (High)?? 05/11/2022 09:22 Retic Count Corrected 4.1 % (High)?? 05/11/2022 09:22 Retic Production Index 2.1 % (High)?? 05/11/2022 09:22 Imm Gran 1.0 % ()?? 05/10/2022 18:00 Abs. Imm Gran 0.2 k/mm3 ()?? 05/10/2022 18:00 ? CARDIAC Nt-Probnp 118 pg/mL ()?? 05/10/2022 21:04 High Sensitivity Troponin (HSTnT) 8 ng/L ()?? 05/10/2022 21:04 ?? CHEM GENERAL Sodium 141 mmol/L ()?? 05/12/2022 01:23 Potassium 4.4 mmol/L ()?? 05/12/2022 01:23 Chloride 107 mmol/L ()?? 05/12/2022 01:23 Bicarbonate Level 24 mmol/L ()?? 05/12/2022 01:23 Anion Gap 10 ()?? 05/12/2022 01:23 Glucose Level 77 mg/dL ()?? 05/12/2022 01:23 BUN 12 mg/dL ()?? 05/12/2022 01:23 Creatinine-Blood 0.9 mg/dL ()?? 05/12/2022 01:23 Estimated GFR Creatinine 78 ML/MIN/1.73 M2 ()?? 05/12/2022 01:23 Calcium 9.0 mg/dL ()?? 05/11/2022 09:22 Magnesium 1.9 mg/dL ()?? 05/12/2022 01:23 Albumin 4.0 Gm/dL ()?? 05/10/2022 18:00 LDH HEMOLYZED units/L ()?? 05/11/2022 09:22 Alkaline Phosphatase 216 units/L (High)?? 05/11/2022 09:22 Lipase 49 units/L ()?? 05/10/2022 18:00 AST (SGOT) 105 units/L (High)?? 05/11/2022 09:22 ALT (SGPT) 31 units/L ()?? 05/11/2022 09:22 Bilirubin, Total 3.9 mg/dL (High)?? 05/11/2022 09:22 Bilirubin, Direct 1.3 mg/dL (High)?? 05/11/2022 09:22 Bilirubin, Indirect 2.6 mg/dL (High)?? 05/11/2022 09:22 ?? COAG INR 1.2 (High)?? 05/10/2022 21:04 Protime (PT) 12.2 seconds (High)?? 05/10/2022 21:04 APTT <22.0 seconds (Low)?? 05/10/2022 21:04 ? ENDOCRINE/TUMOR MARKER Blood <1 mIU/mL ()?? 05/10/2022 21:04 ? MISC. CHEMISTRY Procalcitonin 0.46 ng/mL ()?? 05/10/2022 21:04 Hold Gel Top SPECIMEN DISCARDED AFTER 1 WEEK ()?? 05/11/2022 09:22 ?? UA/URINALYSIS Appear/Color, Urine YELLOW ()?? 05/11/2022 12:30 Specific [place], Urine 1.011 ()?? 05/11/2022 12:30 pH, Urine 6.0 ()?? 05/11/2022 12:30 Albumin, Urine NEGATIVE ()?? 05/11/2022 12:30 Glucose, Urine NEGATIVE ()?? 05/11/2022 12:30 Ketones, Urine NEGATIVE ()?? 05/11/2022 12:30 Bilirubin, Urine NEGATIVE ()?? 05/11/2022 12:30 Hemoglobin, Urine NEGATIVE ()?? 05/11/2022 12:30 Nitrite, Urine NEGATIVE ()?? 05/11/2022 12:30 Leukocyte, Urine 1+ (Abnormal)?? 05/11/2022 12:30 Urobilinogen NORMAL mg/dL ()?? 05/11/2022 12:30 WBC's, Urine 5 /HPF ()?? 05/11/2022 12:30 RBC's, Urine 1 /HPF ()?? 05/11/2022 12:30 Bacteria HEAVY HPF (Abnormal)?? 05/11/2022 12:30 Mucus SLIGHT /LPF ()?? 05/11/2022 12:30 ? VIROLOGY COVID-19 PCR Specimen Source NASAL ()?? 05/10/2022 19:00 COVID-19 PCR Result NEGATIVE ()?? 05/10/2022 19:00 ? Blood Glucose Trend Glucose Level: 77 mg/dL (05/12/22 01:23:00) ? Microbiology ?? COVID-19 (2019 Novel Coronavirus) PCR?? Completed?? Source: Nasal Body Site: Nose Collected Dt/Tm: 05/10/2022 19:00 Last Updated Dt/Tm: 05/11/2022 02:19 ? 40??minutes spent on discharge * Daisy Brower RN: PERFORM Event Display: Patient Education/Instruction Authored Date: [id number] Inpatient Adult Discharge Instructions [address] [id number] Name: JOSE GALARZA : 1970 Visit: 05/11/2022 16:06:00 Current Date: 05/12/2022 16:13 Account: [id number] Inpatient Adult Discharge Instructions We would like [...] and their families. Surveys are administered by [employer]. ?? If further treatment with your primary care physician or another doctor is recommended, it is important for you to keep the appointment. Call your primary care physician or return to the Emergency Department immediately if your condition worsens, fails to improve, or new symptoms develop. If you need to find a doctor, you can call [facility] for a referral at [phone] or toll free at [phone] or log in to [email or web address].. ?? You can view and manage your care through the patient portal or by using a health care tracy of your choosing. [employer] is a website that allows you to securely view your medical information including your hospital discharge summary, office visit summaries, medications and follow-up visits. You can also request appointments, renew medications, and request access to your medical information using a health care tracy of your choosing, or just ask a question. You can enroll at [email or web address] or register during your next office visit. You have been discharged from [facility], Patient Care Unit: D3B. If you have any questions regarding these instructions after you leave, please call us and we will be happy to assist you. [facility] Your Care Team Attending Physician Shama ARCHIBALD, Briana Consulting Providers Awilda ARCHIBALD, Rob Lozano Discharging Providers Briana Sesay MD Reason for Admission pain Your Diagnosis Sickle cell crisis Fever Cough Foul smelling urine Tests Performed Below is a partial list of the tests performed during your hospitalization. You may have had other tests and procedures not included in this list. Please discuss all test results with your provider. ALBUMIN Alk Phos ALT AST Bilirubin Total + Direct BUN Calcium Level CBC w/ Differential Creatinine Electrolytes Glucose Level H + H HEMOGLOBIN AND HEMATOCRIT HOLD GEL TUBE INR LDH LIPASE Lytes Magnesium Level NT ProBNP BLOOD QUANTITATIVE Procalcitonin Level PTT Reticulocyte Ct Troponin T, High Sensitivity Type and Screen UA CXR Portable Primary Care Provider Lesia Cuevas MD Advance Directive Health Care Proxy on File Yes - Health Care Proxy Discharge Vitals Temperature: 98.4 DegF Height: 163 cm Pulse Rate: 84 bpm Weight: 61.5 kg Respiratory Rate: 20 br/min Body Mass Index: 23.15 kg/m2 Systolic Blood Pressure: 118 mm Hg Body surface area: 1.67 Diastolic Blood Pressure:??96 mm Hg??High ?? Oxygen Saturation: 97 % ?? Studies Pending All tests and labs ordered during this hospital stay have been completed unless listed below. Please discuss all pending results with your provider listed above in these instructions. ?? Add On Lab Order Beta HCG Serum (Females Only) Blood Culture Blood Culture #2 COVID-19 (2019 Novel Coronavirus) PCR Hgb + Hct (H + H) Transfuse RBCs What to do next Instructions From Your Doctor Please take antibiotics as prescribed for 4 more days Follow up with your pcp and hot car charger??within 1 week of discharge FOllow up with rehab resources provided by [facility] (coordinator) inpatient Discharge Orders Scheduled Follow-Up Appointments Thursday 3:00 PM EDT ?? With: Lesia Cuevas MD Where: [address] [address]- Thursday 1:00 PM EDT ?? With: Where: [address] [address]- You Need to Schedule the Following Appointments Follow Up with??Lesia Cuevas MD When?? Where: ?? Discharge Medications JOSE GALARZA :1970 Visit Date:05/11/2022 Medications: Please continue your medications until treatment is completed or stopped by your provider. Medications not listed below should be discontinued. Discuss any questions related to medications with your provider. What How Much When Why Instructions Next Dose New Amoxicillin-Clavulanate (Augmentin 875 mg-125 mg oral tablet) 1 tab(s) Oral Twice a day Duration: 4 Days Pickup at [facility]/pharmacy #1130 05/12/22 9pm New Doxycycline (doxycycline hyclate 100 mg oral capsule) 1 capsule Oral Twice a day Duration: 4 Days Pickup at [facility]/pharmacy #1130 05/12/22 9pm New Folic Acid (folic acid 1 mg oral tablet) 1 tab(s) Oral Daily Pickup at [facility]/pharmacy #1130 05/13/22 9am New Pyridoxine (pyridoxine 50 mg oral tablet) 1 tab(s) Oral Daily Pickup at [facility]/pharmacy #1130 05/13/22 9am New Thiamine (thiamine 100 mg oral tablet) 1 tab(s) Oral Daily Duration: 30 Days Pickup at [facility]/pharmacy #1130 05/13/22 9am Unchanged Albuterol (ProAir HFA 90 mcg/ inh inhalation aerosol) 2 puff(s) Inhalation Every 6 hours as needed Unchanged Allopurinol (allopurinol 100 mg oral tablet) 1 tab(s) Oral Daily 05/13/22 9am Unchanged Clindamycin Topical (clindamycin 1% topical lotion) 1 tracy Topically Twice a day apply to L armpit lesions/ bumps twice per day until healed ?? 05/12/22 9pm Unchanged DiphenhydrAMINE (diphenhydrAMINE 25 mg oral capsule) 1 capsule Oral 3 times a day as needed for NEEDED FOR ITCHING as needed Unchanged Emollients, Topical (Eucerin Plus topical lotion) 1 tracy Topically Twice a day as needed for for dry skin as needed Unchanged Estradiol Topical (Estrace Vaginal Cream 0.1 mg/ g) 1 gram Vaginally Daily at Bedtime 05/12/22 9pm Unchanged Gabapentin (gabapentin 300 mg oral capsule) 1 capsule Oral 3 times a day 05/12/22 9pm Unchanged Hydroxyurea (hydroxyurea 500 mg oral capsule) 1 capsule Oral Twice a day 05/12/22 9pm Unchanged HydrOXYzine (hydrOXYzine hydrochloride 50 mg oral tablet) 1 tab(s) Oral 3 times a day as needed for as needed for anxiety as needed Unchanged Loratadine (loratadine 10 mg oral tablet) 1 tab(s) Oral Daily 05/13/22 9am Unchanged Multivitamin (Daily Lazara oral tablet) 1 tab(s) Oral Daily 05/13/22 9am Unchanged Nicotine (nicotine 4 mg oral transmucosal gum) See instructions CHEW 1 PIECE EVERY 2 HOURS NEEDED FOR SMOKING CESSATION ?? Unchanged Omeprazole (omeprazole 20 mg oral enteric coated capsule) 1 capsule Oral Daily 05/13/22 9am Unchanged Oxycodone (oxyCODONE 10 mg oral tablet) 2 tab(s) Oral Every 4 hours as needed for Pain , Moderate Sickle cell anemia as needed Unchanged Polyethylene Glycol 3350 (MiraLax oral powder for reconstitution) 17 gram Oral Daily dissolve in water before taking ?? 05/13/22 9am Unchanged Quetiapine (QUEtiapine 25 mg oral tablet) 1 tab(s) Oral Twice a day as needed for NEEDED FOR AGITATION as needed Unchanged sodium zirconium cyclosilicate (sodium zirconium cyclosilicate 10 g oral powder for reconstitution) 5 gram Oral Every Thursday and next scheduled Pharmacy Information [facility]/pharmacy #[id number]: [address] [facility] [address] [place], [place] [id number] [phone] Test Results Below is a partial list of the most recent Laboratory test results done prior to this discharge. You may have had other tests and procedures not included in this list. Please discuss all test resultswith your provider. RBC Available - PT (05/11/2022) RBC Unit ID - [id number] (05/11/2022) ALBUMIN (05/10/2022) ???Albumin - 4.0 Gm/dL Alk Phos (05/11/2022) ???Alkaline Phosphatase - 216 units/L ALT (05/11/2022) ???ALT (SGPT) - 31 units/L AST (05/11/2022) ???AST (SGOT) - 105 units/L Bilirubin Total + Direct (05/11/2022) ???Bilirubin, Total - 3.9 mg/dL???Bilirubin, Direct - 1.3 mg/dL???Bilirubin, Indirect - 2.6 mg/dL BUN (05/12/2022) ???BUN - 12 mg/dL Calcium Level (05/11/2022) ???Calcium - 9.0 mg/dL CBC w/ Differential (05/12/2022) ???WBC - 15.8 k/mm3???RBC - 2.13 m/mm3???Hgb - 7.4 Gm/dL???Hct - 20.1 %???MCV - 94.4 femtoliters???MCH - 34.7 pg???MCHC - 36.8 g/dL???Platelet Count - 113 k/mm3???RDW-SD - 69.0 femtoliters???MPV - 13.3 femtoliters???Nucleated RBC (Automated) - 13.9 #/100 WBC'S???Abs. NRBC - 2.2 k/mm3???Abs. Neut - 10.0 k/mm3???Abs. Lymph - 3.6 k/mm3???Abs. Pope - 1.0 k/mm3???Abs. Eo - 0.6 k/mm3???Abs. Baso - 0.5 k/mm3???Neut % - 61.0 %???Lymph % - 23.0 %???Pope % - 6.0 %???Eos % - 4.0 %???Baso % - 3.0 %???Myelocytes % - 1.0 %???Band % - 2.0 %???RBC Morphology - MODERATE???Platelet Estimate - DECREASED Creatinine (05/12/2022) ???Creatinine-Blood - 0.9 mg/dL???Estimated GFR Creatinine - 78 ML/MIN/1.73 M2 Electrolytes (05/12/2022) ???Sodium - 141 mmol/L???Potassium - 4.4 mmol/L???Chloride - 107 mmol/L???Bicarbonate Level - 24 mmol/L???Anion Gap - 10 Glucose Level (05/12/2022) ???Glucose Level - 77 mg/dL H + H (05/12/2022) ???Hgb - 7.6 Gm/dL???Hct - 21.1 % HEMOGLOBIN AND HEMATOCRIT (05/11/2022) ???Hgb - 8.1 Gm/dL???Hct - 22.2 % HOLD GEL TUBE (05/11/2022) ???Hold Gel Top - SPECIMEN DISCARDED AFTER 1 WEEK INR (05/10/2022) ???INR - 1.2???Protime (PT) - 12.2 seconds LDH (05/11/2022) ???LDH - HEMOLYZED LIPASE (05/10/2022) ???Lipase - 49 units/L Lytes (05/10/2022) ???Sodium - 138 mmol/L???Potassium - 4.7 mmol/L???Chloride - 104 mmol/L???Bicarbonate Level - 20 mmol/L???Anion Gap - 14 Magnesium Level (05/12/2022) ???Magnesium - 1.9 mg/dL NT ProBNP (05/10/2022) ???Nt-Probnp - 118 pg/mL BLOOD QUANTITATIVE (05/10/2022) ? ?Blood - <1 mIU/mL Procalcitonin Level (05/10/2022) ???Procalcitonin - 0.46 ng/mL PTT (05/10/2022) ? ?APTT - <22.[address] (05/11/2022) ???Retic Count - 11.5 %???Retic Count Corrected - 4.1 %???Retic Production Index - 2.1 % Troponin T, High Sensitivity (05/10/2022) ???High Sensitivity Troponin (HSTnT) - 8 ng/L Type and Screen (05/10/2022) ???Blood Type - O Positive???Antibody Screen - Positive UA (05/11/2022) ???Appear/Color, Urine - YELLOW???Specific [place], Urine - 1.011???pH, Urine - 6.0???Albumin, Urine - NEGATIVE???Glucose, Urine - NEGATIVE???Ketones, Urine - NEGATIVE???Bilirubin, Urine - NEGATIVE???Hemoglobin, Urine - NEGATIVE???Nitrite, Urine - NEGATIVE???Leukocyte, Urine - 1+???Urobilinogen - NORMAL???WBC's, Urine - 5 /HPF???RBC's, Urine - 1 /HPF???Bacteria - HEAVY???Mucus - SLIGHT Allergies (NKA means No Known Allergies) Compazine??(tongue swelling) Problems Active Problems??(7) Anemia?? Depression?? Protein-calorie malnutrition, moderate?? Sickle cell anemia?? sickle cell disease?? TACO (transfusion associated circulatory overload)?? urinary tract infection?? Education Materials Below is the list of Educational Leaflet Providered with your Discharge Instructions. Valuables and Belongings I fully understand and agree that [facility] accepts no responsibility for all my [...] ?? Date for Pt to Sign Valuables/Belongings: 05/10/22 17:05:00 ?? Other Discharge Information ? Pulmonary Rehab Status?? Pulmonary Rehab Discharge Status?? Respiratory Rate: 20 br/min ? Common Emergency Awareness Tips IS [...] are strongly encouraged to quit. Please call [facility] [employer] [facility] at [phone] or [phone] ([phone]) or log in to [email or web address] for referrals to smoking cessation programs. ?? The National Suicide Prevention Hotline is available 15/09 if you or someone you know needs to find a reason to keep living. By calling 8-954-058-[employer] (2900) you'll be connected to a skilled, trained counselor at a crisis center in your area. INPATIENT DISCHARGE INSTRUCTIONS SIGNATURE PAGE JOSE GALARZA Location:[facility] Registration Date and Time:05/11/2022 16:06 EDT Primary Care Physician: Lesai Cuevas MD, I AHSAN GALARZAA, have received the above patient education materials/instructions and have verbalized understanding. If ambulance or transport services are being used I further acknowledge being given a choice of service. ?? If you need to contact me, please call me at this number: . Patient/Business Continuity Management Director Name: Patient/Business Continuity Management Director Signature: Relationship to Patient: Witness Name/Signature: Date: Portable XR Chest Views * [facility] , LISA S: TRANSCRIBE Rodrigo Oh MD: VERIFY Event Display: Result: Authored Date: [id number] AP upright portable chest dated May 11, 2022 at 0001 hours. Comparison films are from January 20172021. HISTORY: Cough. FINDINGS: The cardiac silhouette is mildly increased in size and unchanged. A CT Port-A-Cath is present on the right. Using jugular approach, the tip of the catheter overlies the distal SVC. No pneumothorax is seen. There are some minimal patchy bilateral infiltrates. Visualized osseous structures are unremarkable. IMPRESSION: Minimal bilateral infiltrates which could represent a viral or atypical pneumonia. Examination 25106. Thank you for allowing me to participate in the care of this patient. WSN: [id number] Ordering Physician: Marcos Cavazos Dictated By: Rodrigo Oh MD Dictated Date/Time: 05/11/22 10:14 a Reviewed By: Rodrigo Oh MD Signed By: Rodrigo Oh MD Signed Date/Time: 05/11/22 10:14 am Transcribed By: PRASHANT Transcribed Date/Time: 05/11/22 10:13 am Patient Care team information Care Team Personnel Name: Indiana Zuleta Position: [facility] Onco RN Member Role: Primary Care Nurse Name: Naila Hinds RN Position: [facility] RN Member Role: Primary Care Nurse Name: Marisa Rosario RN Position: S RN Member Role: Primary Care Nurse Name: Carmen Hdez RN Position: [facility] ED RN W/OE and Tasks Member Role: Primary Care Nurse Name: Jordon Cruz RN Position: [facility] ED RN W/OE and Tasks Member Role: Primary Care Nurse Name: Daisy Rushing RN Position: S RN Member Role: Primary Care Nurse Name: Corinna Fajardo RN Position: [facility] PCO RN Member Role: Primary Care Nurse Name: Ira Apodaca RN Position: [facility] ED RN W/OE and Tasks Member Role: Primary Care Nurse Name: Estefany Vincent RN Position: S RN Member Role: Primary Care Nurse Name: Idania More RN Position: [facility] RN Member Role: Primary Care Nurse Name: Jessica Schmidt RN Position: [facility] RN Member Role: Primary Care Nurse Name: Paola Rinaldi RN Position: [facility] RN Supv Member Role: Primary Care Nurse Name: Lian Joy RN Position: [facility] RN Member Role: Primary Care Nurse Name: Nikkie Sommers RN Position: [facility] RN Supv Member Role: Primary Care Nurse Name: Jasmine Ortega NP Position: [facility] Associate Professional Member Role: Primary Care Nurse Address: Address: [address] [place] [id number]- Name: Rivka Cook RN Position: [facility] RN Member Role: Primary Care Nurse Name: Daisy Brower RN Position: [facility] RN Member Role: Primary Care Nurse Name: Kimberly Skinner RN Position: [facility] RN Member Role: Primary Care Nurse Name: Abhishek Johnson RN Position: [facility] RN Member Role: Primary Care Nurse Name: Lesia Cuevas MD Position: [facility] Resident Member Role: PCP Address: Address: [address] [place] [id number]- Name: Rene Pham RN Position: [facility] RN Member Role: Primary Care Nurse Name: Barbara Rae RN Position: [facility] RN Member Role: Primary Care Nurse Name: Ina Renee RN Position: [facility] RN Member Role: Primary Care Nurse Name: Chel Torres RN Position: [facility] RN Member Role: Primary Care Nurse Name: Yesica Delong RN Position: [facility] ED RN W/OE and Tasks Member Role: Primary Care Nurse Name: Vy Rogers RN Position: [facility] RN Member Role: Primary Care Nurse Name: Paula Earl RN Position: [facility] RN Member Role: Primary Care Nurse Name: Susan Miller RN Position: [facility] SN RN Member Role: Primary Care Nurse Name: Silva Colin RN Position: [facility] RN Supv Member Role: Primary Care Nurse Name: Pao Key Position: [facility] RN Member Role: Primary Care Nurse Name: Maris Trevino RN Position: [facility] ED RN W/OE and Tasks Member Role: Primary Care Nurse Name: Steph Gordillo RN Position: [facility] OB RN Member Role: Primary Care Nurse Name: Rene Ramos DO Position: [facility] Renal MD Member Role: Lifetime Consulting Physician Address: Address: [address] [place], [place] [address] [place], [place] [address] Name: Ryder Matthews Position: [facility] RN Member Role: Primary Care Nurse Name: Mary Correia RN Position: [facility] ED RN W/OE and Tasks Member Role: Primary Care Nurse Name: Tierra Razo RN Position: [facility] RN Member Role: Primary Care Nurse Name: Librado Saucedo RN Position: [facility] RN Member Role: Primary Care Nurse Name: Laron Davenport III, RN Position: [facility] RN Member Role: Primary Care Nurse Name: Danya Govea RN Position: [facility] RN Member Role: Primary Care Nurse Name: Idania Millard RN Position: [facility] RN Member Role: Primary Care Nurse Name: Blake Grant RN Position: [facility] SN RN Member Role: Primary Care Nurse Name: Mariella Ojeda RN Position: [facility] RN Member Role: Primary Care Nurse Name: Ana Do RN Position: [facility] RN Member Role: Primary Care Nurse Name: Yaquelin Dawkins RN Position: [facility] RN Member Role: Primary Care Nurse Name: Cari Khan RN Position: [facility] RN Member Role: Primary Care Nurse Name: Deuqan Elliott RN Position: [facility] SN RN Member Role: Primary Care Nurse Name: Esmer Rankin RN Position: [facility] PCO RN Member Role: Primary Care Nurse Name: Kaylene Maier RN Position: [facility] RN Supv Member Role: Primary Care Nurse Name: Juno Torres RN Position: [facility] Onco RN Member Role: Primary Care Nurse Name: Yojana Dior RN Position: [facility] RN Member Role: Primary Care Nurse Name: Farideh Balderas RN Position: [facility] Hospital Pellet Machine Operator Member Role: Primary Care Nurse Name: Roxana Ann RN Position: [facility] RN Member Role: Primary Care Nurse Name: Derick Calixto RN Position: [facility] RN Member Role: Primary Care Nurse Name: Fariba Bradley RN Position: [facility] RN Member Role: Primary Care Nurse Name: Fariba Ornelas RN Position: [facility] ED RN W/OE and Tasks Member Role: Primary Care Nurse Name: Steph Tierney RN Position: [facility] RN Member Role: Primary Care Nurse Name: Portia Baires RN Position: [facility] RN Member Role: Primary Care Nurse Name: Isidro Valle RN Position: [facility] RN Supv Member Role: Primary Care Nurse Name: Leny Shanks RN Position: [facility] RN Supv Member Role: Primary Care Nurse Name: Steph Smith RN Position: [facility] RN Member Role: Primary Care Nurse Name: Casandra Robbins RN Position: [facility] RN Supv Member Role: Primary Care Nurse Name: Maris Crowell RN Position: [facility] RN Member Role: Primary Care Nurse Name: Coni Romero LPN Position: [facility] RN Member Role: Primary Care Nurse Name: Abigail Rabago RN Position: [facility] RN Member Role: Primary Care Nurse Name: Halina Burger RN Position: [facility] Onco RN Member Role: Primary Care Nurse Name: Linda Lockwood RN Position: [facility] Hospital Pellet Machine Operator Member Role: Primary Care Nurse Name: Dedra Chatman RN, I Position: [facility] RN Member Role: Primary Care Nurse Name: David Oquendo RN Position: [facility] RN Supv Member Role: Primary Care Nurse Care Team Related Persons Name: JACKIE ALANIZ Address: [address] [place] [address] Name: PHI MENARY Address: home [address] [place] [address] Name: JOVITA GALARZA Address: home [address] [place] [address] Name: KARL GALARZA Address: [place] [address] Name: EZEKIEL GALARZA Address: [address] [place] [address] Name: MICHAEL BARRETT Address: [place] [address] Name: SHAD TUBBS Address: home [address] [place] [address]
[2022-12-14] MEDS: diphenhydrAMINE HCl 12.5 MG/5 ML LIQUID 50 MG PO (06:28)
--- NOTE | 2022-12-14 06:29 | PC.NURSE ---
Patient reports having itchy sensation after receiving Morphine IM given by EMS. Patient reports history of sensitivity to opioids and usually takes Benadryl if develops itchy sensation. Dr. Galvan informed. Benadryl 50 mg PO administered per MD order. Patient reports relief after taking Benadryl. No hives, no lips swelling noted, airway is patent.
--- NOTE | 2022-12-14 07:11 | ED_ITS ---
HPI - General Adult General Chief complaint: General Medical Stated complaint: sickle cell crisis Time Seen by Provider: 12/14/22 07:10 Source: patient and EMS Mode of arrival: EMS Limitations: no limitations History of Present Illness HPI narrative: 52 yo female with history of sickle cell disease with chronic pain on chronic Percocet, history of acute chest syndrome, chronic hypoxic respiratory failure on 5L NC at baseline since severe COVID PNA in 2019, gout, etoh use, hx cocaine use, PTSD who presents to the ER from home via EMS for evaluation of diffuse chest pains and joint pain for the last 2 days that she states is from her sickle cell disease. She states the pain is severe and similar to her prior sickle cell flares. She has been taking her 10 mg of Percocet every 4 hours at home with no relief. She denies SOB or difficulty breathing. No fever, chills, N/V/D or abdominal pain. MD complaint: chest pain and joint pain Onset (ago): day(s) (2) Location: chest, pelvis, left, right, upper extremity and lower extremity Radiation: non-radiation Severity: severe Severity scale (1-10): 10 Quality: stabbing and aching Pain Consistency: constant Relieving factors: none Exacerbating factors: none Associated symptoms: chest pain Treatments prior to arrival: other (IM morphine, IM zofran) Related Data Home Medications Medication Instructions Recorded Confirmed albuterol sulfate 90 mcg/actuation 2 puff PO Q6H PRN Shortness Of 06/02/21 12/15/21 aerosol inhaler Breath Or Wheezing allopurinol 100 mg tablet 1 tab PO DAILY 06/02/21 12/15/21 apixaban 5 mg tablet (Eliquis) 1 tab PO BID 06/02/21 12/15/21 gabapentin 300 mg capsule 1 cap PO TID 06/02/21 12/15/21 loratadine 10 mg tablet 1 tab PO DAILY 06/02/21 12/15/21 multivitamin with folic acid 400 1 tab PO DAILY 06/02/21 12/15/21 mcg tablet (Daily-Lazara (with folic acid)) omeprazole 20 mg capsule,delayed 1 cap PO DAILY@0630 06/02/21 12/15/21 release quetiapine 25 mg tablet 1 tab PO BID PRN Agitation 06/02/21 12/15/21 clindamycin phosphate 1 % lotion 1 appl topical BID 12/15/21 12/15/21 diphenhydramine HCl 25 mg capsule 1 cap PO TID PRN itch 12/15/21 12/15/21 (Banophen) hydroxyurea 500 mg capsule 2 cap PO BEDTIME 12/15/21 12/15/21 hydroxyzine HCl 50 mg tablet 1 tab PO TID PRN anxiety 12/15/21 12/15/21 metronidazole 500 mg tablet 1 tab PO BID 12/15/21 12/15/21 oxycodone 10 mg tablet 2 tab PO Q4H PRN Pain (Scale Score 12/15/21 12/15/21 4-6) Previous Rx's Medication Instructions Recorded doxycycline hyclate 100 mg tablet 100 mg PO BID #20 tabs 12/17/21 Allergies Allergy/AdvReac Type Severity Reaction Status Date / Time prochlorperazine Allergy Severe ANAPHYLAXIS Verified 05/10/20 01:39 [From COMPAZINE] Review of Systems 2 Review of Systems: Yes all other systems are reviewed and are negative REPLACED BY [facility] Past Medical History Medical History 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 Bipolar 1 disorder Cocaine abuse DVT (deep venous thrombosis) GERD (gastroesophageal reflux disease) Hypoxia Pneumonia due to 2019 novel coronavirus Pneumonia due to 2019 novel coronavirus PTSD (post-traumatic stress disorder) Sickle cell anemia Sickle cell anemia UTI (urinary tract infection) Surgical History Hx of cholecystectomy Family History Family History Other Diabetes Social History Social History Household Members: None Housing: Apartment Do you presently have visiting nurse or other home services: Yes (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) Unable to assess alcohol history related to: Unable to respond Alcohol intake: current Alcohol intake frequency: a few times a week Alcohol type: beer and wine Patient Tobacco Use Status: Current everyday Tobacco user Tobacco use type: Cigarette Cigarette Packs Per Day: 0.5 Cigarettes Per Day: 10.0 Years Smoked: 35 Smoked in Last 30 Days: Yes e-Cigarette/Vaping Use: Never Used Second Hand Smoke Exposure: No Substance Use Type: Crack/Cocaine Substance Use Frequency: Occasionally Advance Directives: No Advance Directives Information Provided: No Patient : No service: No Current occupational status: unemployed and disabled Physical Exam ED Vital Signs: Vital Signs - 24 hr 12/14/22 05:07 Temperature 98.4 F Pulse Rate 86 Respiratory Rate 18 Blood Pressure 116/76 Pulse Oximetry 96 Oxygen Delivery Method Nasal Cannula BMI result Body Mass Index 23.2 Appearance: Alert. Oriented X3. Fidgety and scratching the entire body Head: normocephalic, atraumatic. Eyes: Pupils equal, round and reactive to light. ENT: Pharynx normal. No tonsillar swelling or exudate. Neck: Normal inspection. Neck supple. CVS: Normal heart rate and rhythm. Pulses normal. Anterior chest wall tenderness Respiratory: No respiratory distress. Breath sounds normal. Abdomen: Soft and nontender. +BS x4 Skin: Skin warm and dry. Normal skin color. Normal skin turgor. No rashes. Extremities: No lower extremity edema. No joint swelling. Topical white cream over all 4 extremities. Neuro/psych: Oriented X 3. No motor deficit. No sensory deficit. CN II-XII intact. Normal speech and cognition. Medications Administered Discontinued Medications Generic Name Dose Route Start Last Admin Trade Name Freq PRN Reason Stop Dose Admin Diphenhydramine HCl 50 mg 12/14/22 06:21 12/14/22 06:28 Diphenhydramine Hcl 12.5 Mg/5 Ml Liquid PO 12/14/22 06:22 50 mg ONCE STA Administration Procedures EJ/Peripheral Line Neck R: Time Out Performed: Yes Skin Cleansed in Sterile Fashion: Yes Size (gauge): 20 IV Secured and Dressing Applied: Yes Patient Tolerated Procedure: well and no complications Medical Decision Making Medical Decision Making MDM Narrative: 52 yo female with history of sickle cell disease with chronic pain on chronic Percocet, history of acute chest syndrome, chronic hypoxic respiratory failure on 5L NC at baseline since severe COVID PNA in 2020, gout, etoh use, hx cocaine use, PTSD who presents to the ER from home via EMS for evaluation of diffuse chest pains and joint pain for the last 2 days that she states is from her sickle cell disease. SpO2 98% on her baseline O2. Pain persists after IM morphine. Her labs showing acute on chronic anemia w/ H/H 6.2/16.6 with elevated bilirubin and reticulocyte counts c/w acute sickle cell crisis. 1 unit PRBC ordered for now along w/ IVF and additional pain control. She also has leukocytosis 15K without fever or tachycardia, not septic. CXR reviewed along w/ old CTA, she has chronic ground glass opacities, ?fibrosis s/p COVID. no lobar PNA on CXR today but she is high risk so will cover empirically w/ rocephin and azithromycin, case d/w Dr. Calvo Will plan to admit for further management. Differential Diagnosis Differential Diagnoses: The differential diagnosis associated with the presentation includes sickle cell crisis, acute chest syndrome, cardiac ischemia, PE, rib infarction, PNA, fat embolism Admission/Observation Consideration of admission/observation: Escalation of care including admission/observation considered Consult Healthcare Provider Management of the patient was discussed with: Hospitalist Dr. Melgar accepts patient for admission Lab Data MDM Lab Attestation statement: I reviewed the patient's lab results. acute on chronic anemia w/ leukocytosis, elevated bili c/w hemolysis 12/14/22 07:55 12/14/22 07:55 Labs: Lab Results 12/14/22 12/14/22 12/14/22 Range/Units 07:55 07:55 07:55 WBC 15.1 H (4.8-10.8) X10*3/uL RBC 1.76 L D (4.20-5.50) X10*6/uL Hgb 6.2 L* D (12.0-16.0) g/dl Hct 16.6 L* D (37.0-47.0) % MCV 94.3 (80.0-98.0) fL MCH 35.2 H (27.0-33.0) pg MCHC 37.3 H (31.0-35.0) g/dl RDW 20.7 H (11.0-16.0) % Plt Count 140 L (160-400) X10*3/uL MPV 12.7 H (9.4-12.3) fL Immature Gran % (Auto) Cancelled Neut % (Auto) Cancelled Lymph % (Auto) Cancelled [place] % (Auto) Cancelled Eos % (Auto) Cancelled Baso % (Auto) Cancelled Lymph # (Auto) Cancelled [place] # (Auto) Cancelled Eos # (Auto) Cancelled Baso # (Auto) Cancelled Abs Immat Gran (auto) Cancelled Absolute Neuts (auto) Cancelled Absolute Nucleated RBC 1.210 H (0.0-0.012) X10*3/uL Nucleated RBC % (auto) 8.0 H (0.0-0.2) /100WBC Absolute Retic 0.209 H Cancelled (0.026-0.095) X10*6/uL Percent Retic 11.9 H Cancelled (0.5-1.8) % Immature Retic Fraction 38.4 H (3.0-15.9) % Retic Hgb Equivalent (30.0-35.0) pg Sodium (135-145) mmol/L Potassium (3.3-5.1) mmol/L Chloride (96-108) mmol/L Carbon Dioxide (22-29) mmol/L Anion Gap (12-20) BUN (9-16) mg/dL Creatinine (0.5-1.4) mg/dL Estim Creat Clear Calc Estimated GFR Random Glucose (60-115) mg/dL Calcium (8.4-10.2) mg/dL Total Bilirubin (0.0-1.0) mg/dL AST (5-31) U/L ALT (0-31) U/L Alkaline Phosphatase (39-117) U/L Troponin I High Sens (<3.5-17.0) ng/L Total Protein (6.5-8.0) g/dL Albumin (3.5-5.0) g/dL Crossmatch (AHG) 12/14/22 12/14/22 12/14/22 Range/Units 07:55 07:55 08:34 WBC (4.8-10.8) X10*3/uL RBC (4.20-5.50) X10*6/uL Hgb (12.0-16.0) g/dl Hct (37.0-47.0) % MCV (80.0-98.0) fL MCH (27.0-33.0) pg MCHC (31.0-35.0) g/dl RDW (11.0-16.0) % Plt Count (160-400) X10*3/uL MPV (9.4-12.3) fL Immature Gran % (Auto) Neut % (Auto) Lymph % (Auto) [place] % (Auto) Eos % (Auto) Baso % (Auto) Lymph # (Auto) [place] # (Auto) Eos # (Auto) Baso # (Auto) Abs Immat Gran (auto) Absolute Neuts (auto) Absolute Nucleated RBC (0.0-0.012) X10*3/uL Nucleated RBC % (auto) (0.0-0.2) /100WBC Absolute Retic (0.026-0.095) X10*6/uL Percent Retic (0.5-1.8) % Immature Retic Fraction Cancelled (3.0-15.9) % Retic Hgb Equivalent 32.5 Cancelled (30.0-35.0) pg Sodium 144 (135-145) mmol/L Potassium 3.8 D (3.3-5.1) mmol/L Chloride 112 H (96-108) mmol/L Carbon Dioxide 23 (22-29) mmol/L Anion Gap 13 (12-20) BUN 11 (9-16) mg/dL Creatinine 0.74 (0.5-1.4) mg/dL Estim Creat Clear Calc 77.6 Estimated GFR > 60 Random Glucose 106 (60-115) mg/dL Calcium 9.1 D (8.4-10.2) mg/dL Total Bilirubin 3.3 H (0.0-1.0) mg/dL AST 102 H (5-31) U/L ALT 33 H (0-31) U/L Alkaline Phosphatase 206 H (39-117) U/L Troponin I High Sens 3.0 (<3.5-17.0) ng/L Total Protein 7.2 (6.5-8.0) g/dL Albumin 3.4 L (3.5-5.0) g/dL Crossmatch (AHG) See Detail Independent Interpretation I performed an independent interpretation of an: EKG and Plain X-Ray Interpretation: ekg w/ normal sinus rhythm, HR 76bpm, no ST segment elevations or depressions, no change from nov 2021 cxr with chronic interstitial markings, chronic compared to prior imaging. no lobar PNA or effusion Radiology Impression Discussion of test interpretation with radiology: I have reviewed the radiologist's reading. Radiologist Impression: EXAMINATION: XR CHEST CLINICAL INFORMATION: Chest pain. History of sickle cell COMPARISON: Frontal view 12/15/21 TECHNIQUE: 2 views of the chest were obtained. FINDINGS: [place] associated with a right-sided vascular catheter. The cardiac size is top normal. There is no mediastinal or hilar mass. The central vessels are prominent. There is no alveolar edema. There are diffuse coarse opacities in the mid lower lung zones without a focal pneumonia. No significant pleural fluid or pneumothorax. No suspicious focal bony lesion. XR/XR chest 2V IMPRESSION: Diffuse coarse lung opacities similar to previous. No acute dense focal pneumonia. No significant pleural fluid or pneumothorax Independent Historian Clinical information obtained from an independent historian. History obtained from or confirmed by: EMS External Record Review External record reviewed: Inpatient record, Outpatient record, Prior outpatient labs and Prior outpatient radiology Prescription Management I considered prescription management with: Pain Medication and Antibiotic Chronic Conditions Patient?s care impacted by: Other (sickle cell anemia) Social Determinants Patient?s care significantly limited by Social Determinants of Health including: Other Social Determinant of Health Critical Care Time Critical Care Time Critical Care Time: Yes Total Critical Care Time: 39 Attestation: I have personally provided critical care time exclusive of time spent on separately billable procedures. Time includes review of lab data, radiology results, discussion with consultants, and monitoring for potential decompensation. Intervention performed as documented. Discharge Plan Discharge Clinical Impression: Sickle cell crisis Patient Disposition: Admitted As Inpatient
[2022-12-14 08:21] LABS: Alanine Aminotransferase 33 U/L (0-31); Albumin Level 3.4 g/dL (3.5-5.0); Alkaline Phosphatase 206 U/L (39-117); Anion Gap 13 (12-20); Aspartate Amino Transferase 102 U/L (5-31); Bilirubin Total 3.3 mg/dL (0.0-1.0); Blood Urea Nitrogen 11 mg/dL (9-16); Calcium 9.1 mg/dL (8.4-10.2); Carbon Dioxide 23 mmol/L (22-29); Chloride 112 mmol/L (96-108); Creatinine Clr Calc Pharmacy 77.6; Estimated Glomerular Filt Rate > 60; Glucose Random 106 mg/dL (60-115); Potassium 3.8 mmol/L (3.3-5.1); Sodium 144 mmol/L (135-145); Total Protein 7.2 g/dL (6.5-8.0)
[2022-12-14 08:22] LABS: Immature Retic Fraction 38.4 % (3.0-15.9); Mean Corpuscular HGB Conc 37.3 g/dl (31.0-35.0); Mean Corpuscular Hemoglobin 35.2 pg (27.0-33.0); Mean Corpuscular Volume 94.3 fL (80.0-98.0); Mean Platelet Volume 12.7 fL (9.4-12.3); PLT CLUMP 1; Red Blood Count 1.76 X10*6/uL (4.20-5.50); Red Cell Distribution Width 20.7 % (11.0-16.0); Retic HGB Equivalent 32.5 pg (30.0-35.0); Reticulocyte Percent 11.9 % (0.5-1.8); Reticulocytes Absolute 0.209 X10*6/uL (0.026-0.095)
[2022-12-14 08:26] LABS: PLT ABN DIST 1; WBC ABN SCTR FOR CBC 1
[2022-12-14 08:30] LABS: Hematocrit 16.6 % (37.0-47.0); Hemoglobin 6.2 g/dl (12.0-16.0); Platelet Count 140 X10*3/uL (160-400); White Blood Count 15.1 X10*3/uL (4.8-10.8)
[2022-12-14 08:58] VITALS: RESP 22
[2022-12-14] MEDS: HYDROmorphone HCl 2 MG/ML VIAL IVPUSH (08:58)
[2022-12-14] MEDS: hydrOXYzine HCL 50 MG TABLET PO (08:58)
[2022-12-14] MEDS: cefTRIAXone sodium 1 GM in 0.9 % Sodium Chloride 50 ML IV (08:58)
[2022-12-14 09:02] LABS: Band Neutrophils Percent 9 % (3-5); Basophils Abs Manual 0.2 X10*3/uL (0.0-0.2); Basophils Percent Manual 1 % (0-2); Eosinophils Absolute Manual 0.5 X10*3/uL (0.0-0.4); Eosinophils Percent Manual 3 % (0-4); Giant Platelet PRESENT; Large Platelet PRESENT; Lymphocytes Absolute Manual 5.4 X10*3/uL (1.2-4.9); Lymphocytes Percent Manual 36 % (20-40); Macrocytosis 1+ (5-14) /OIF; Metamyelocytes Absolute 0.2 X10*3/uL; Metamyelocytes Percent 1 %; Microcytosis 1+ (5-14) /OIF; Monocytes Absolute Manual 0.6 X10*3/uL (0.1-1.2); Monocytes Percent Manual 4 % (2-11); Neutrophils Absolute Manual 8.3 X10*3/uL (2.0-8.3); Neutrophils Percent Manual 46 % (45-73); Nucleated Red Blood Cells 16 /100WBC (0-0); Platelet Estimate NORMAL (NORMAL); Platelet Morphology Comment NOTED; RBC Morphology NOTED; Sickle Cells 3+ (>5) /OIF; Target Cells 1+ (5-14) /OIF
[2022-12-14 09:03] LABS: Basophilic Stippling 1+ (0-2) /OIF; Polychromasia 1+ (0-2) /OIF
[2022-12-14 09:04] LABS: Pappenheimer Bodies PRESENT
[2022-12-14 10:00] VITALS: BP 107/61; PULSE 92; RESP 18; TEMP 37.1; O2SAT 92
[2022-12-14] MEDS: diphenhydrAMINE HCL 50 MG/ML VIAL 25 MG IVPUSH ×2 (10:06→23:05)
[2022-12-14] MEDS: LORazepam 2 MG/ML VIAL 1 MG IVPUSH (10:06)
[2022-12-14 10:35] VITALS: BP 100/59; PULSE 102; RESP 18; TEMP 37.1
[2022-12-14 10:40] VITALS: BP 97/56; PULSE 94; RESP 16; TEMP 37.1
--- NOTE | 2022-12-14 11:08 | P.HPHOSP_ITS ---
History of Present Illness Date of Service: 12/14/22 Chief Complaint: Diffuse pain A 61-year-old female with a medical history marked by sickle cell disease, chronic anemia, thrombocytopenia, tricuspid regurgitation, mild to moderate pulmonary hypertension, severe COPD, long covid syndrome, and a prior episode of acute respiratory distress syndrome (ARDS) necessitating intubation, tracheostomy, and percutaneous endoscopic gastrostomy (PEG) tube placement, which has since been removed. She currently relies on chronic home oxygen therapy at a rate of 5 liters per minute via a nasal cannula. She also experiences anxiety, depression, and has a history of tobacco, alcohol, and cocaine use. The patient presented to the emergency department with diffuse pain and chest discomfort. Her hemoglobin level is 6.2, and her hematocrit is 16. Additionally, her bilirubin levels are elevated mildly, and there is a slight increase in liver function tests. To manage her pain and discomfort, she has received multiple doses of medications, including Dilaudid, Ativan, hydroxyzine, and Benadryl. At present, she is in a significantly sedated state and unable to engage in coherent conversation. She is maintaining her oxygen saturation as long as she keeps her oxygen supply on but remains highly agitated and restless, constantly in motion. ? 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 Hypoxia Pneumonia due to 2019 novel coronavirus Pneumonia due to 2019 novel coronavirus Sickle cell anemia UTI (urinary tract infection) GERD (gastroesophageal reflux disease) PTSD (post-traumatic stress disorder) Cocaine abuse Bipolar 1 disorder Sickle cell anemia Family History Other Diabetes Surgical History Hx of cholecystectomy Social History Household Members: None Housing: Apartment Do you presently have visiting nurse or other home services: 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) Unable to assess alcohol history related to: Unable to respond Alcohol intake: current Alcohol intake frequency: a few times a week Alcohol type: beer and wine Patient Tobacco Use Status: Current everyday Tobacco user Tobacco use type: Cigarette Cigarette Packs Per Day: 0.5 Cigarettes Per Day: 10.0 Years Smoked: 35 Smoked in Last 30 Days: Yes e-Cigarette/Vaping Use: Never Used Second Hand Smoke Exposure: No Substance Use Type: Crack/Cocaine Substance Use Frequency: Occasionally Advance Directives: No Advance Directives Information Provided: No Nutrition Risks: No Nutritional Risk Patient : No service: No Current occupational status: unemployed and disabled Meds Allergies Allergy/AdvReac Type Severity Reaction Status Date / Time prochlorperazine Allergy Severe ANAPHYLAXIS Verified 05/10/20 01:39 [From COMPAZINE] Home Medications Medication Instructions Recorded Confirmed Last Taken Type albuterol sulfate 90 mcg/actuation 2 puff PO Q6H PRN Shortness Of 06/02/21 12/14/22 Unknown History aerosol inhaler Breath Or Wheezing loratadine 10 mg tablet 1 tab PO DAILY 06/02/21 12/14/22 Unknown History oxycodone 10 mg tablet 2 tab PO Q4H PRN Pain (Scale Score 12/15/21 12/14/22 Unknown History 4-6) colchicine (gout) 0.6 mg tablet 0.6 mg PO DAILY 12/14/22 12/14/22 Unknown History fluticasone propionate 50 1 spray intranasal BID PRN Allergy 12/14/22 12/14/22 Unknown History mcg/actuation nasal Symptoms spray,suspension lorazepam 1 mg tablet 1 mg PO BID PRN anxiety 12/14/22 12/14/22 Unknown History Physical Exam 2 Vital Signs and Narrative: Vital Signs: Last Vital Signs Temp 98.8 F 12/14/22 10:40 Pulse 94 12/14/22 10:40 Resp 16 12/14/22 10:40 BP 97/56 L 12/14/22 10:40 Pulse Ox 92 12/14/22 10:00 O2 Del Method Nasal Cannula 12/14/22 10:00 O2 Flow Rate 5 12/14/22 10:00 Oxygen Flow Rate 5 12/14/22 05:07 BMI result Body Mass Index 23.2 Const: Other: Constitutional: Alert, in no distress, underweight Mental Status: Oriented to person, place and time. Eyes: Pupils are equal, round and reactive to light. Ear, Nose and Throat: Oropharynx clear, mucous membranes moist. Respiratory: Clear to auscultation. No wheezing, rales or rhonchi. Cardiovascular: S1 S2 regular. No murmurs, rubs or gallops. Gastrointestinal: Abdomen soft, non-tender, non-distended. Normal bowel sounds.? Neurologic: Cranial nerves II-XII grossly intact. No focal neurological deficits. Moves all extremities spontaneously.? Skin: No rashes or lesions.? Musculoskeletal: No cyanosis or clubbing. Psychiatric: Normal mood and affect? Results Labs 12/15/22 05:20 12/14/22 07:55 Labs: Imaging Radiologist's Impressions: Impressions Chest X-Ray 12/14/22 07:34 IMPRESSION: Diffuse coarse lung opacities similar to previous. No acute dense focal pneumonia. No significant pleural fluid or pneumothorax Assessment and Plan (1) Sickle cell anemia with crisis: Status: Resolved (2) Sickle cell anemia with crisis: Status: Resolved Plan 52-year-old female with history of sickle cell disease here with pain crisis and anemia and presently also appears delirious 1. Sickle Cell ciris 2. Acute anemia d/t sickle cell -Transfusion to maintain hemoglobin around 7 to 8 -IVF -Narcotics for pain -O2 - Consider hematoloty consult 2.Chronic hyypoxic respiratory failure, continue O2 on 5 liters at home, maintain O2 92 to 95 3. h/o of DVT over a year ago, continue eliquis 4. GERD continue PPI 5. history of bipolar disorder, continue meds upon completion of med rec Admission for at least 2 midnights for treatment of sickle cell crisis, anemia and pain management with IV meds ?DVT prophylaxis:?heparin Full Code admission for at least 2 midnights for managemtn of treatment of sickle cell disease and pain crisis Time Spent With Patient Time: Total time managing care of this patient today ____ minutes. Quality Stroke Does the patient have a stroke diagnosis?: No VTE Prior VTE?: Yes VTE Risk Level:: Medical - moderate - high VTE Device Contraindication: N/A - Device Ordered VTE Drug Contraindication: N/A - Med Ordered
--- NOTE | 2022-12-14 11:13 | P.HPHOSP_ITS ---
History of Present Illness Date of Service: 12/14/22 Attending physician on admission: Kris [facility] Chief Complaint: Sickle cell crisis Pt is a 52-year-old female with a PMH significant for? who presents to the ED with? In the ED labs were significant for CXR showed CT? 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 Bipolar 1 disorder Cocaine abuse DVT (deep venous thrombosis) GERD (gastroesophageal reflux disease) Hypoxia Pneumonia due to 2019 novel coronavirus Pneumonia due to 2019 novel coronavirus PTSD (post-traumatic stress disorder) Sickle cell anemia Sickle cell anemia UTI (urinary tract infection) Family History Other Diabetes Surgical History Hx of cholecystectomy Social History Household Members: None Housing: Apartment Do you presently have visiting nurse or other home services: Yes ([employer]) Unable to assess alcohol history related to: Unable to respond Alcohol intake: current Alcohol intake frequency: a few times a week Alcohol type: beer and wine Patient Tobacco Use Status: Current everyday Tobacco user Tobacco use type: Cigarette Cigarette Packs Per Day: 0.5 Cigarettes Per Day: 10.0 Years Smoked: 35 Smoked in Last 30 Days: Yes e-Cigarette/Vaping Use: Never Used Second Hand Smoke Exposure: No Substance Use Type: Crack/Cocaine Substance Use Frequency: Occasionally Advance Directives: No Advance Directives Information Provided: No Patient : No service: No Current occupational status: unemployed and disabled Meds Allergies Allergy/AdvReac Type Severity Reaction Status Date / Time prochlorperazine Allergy Severe ANAPHYLAXIS Verified 05/10/20 01:39 [From COMPAZINE] Home Medications Medication Instructions Recorded Confirmed Last Taken Type albuterol sulfate 90 mcg/actuation 2 puff PO Q6H PRN Shortness Of 06/02/21 12/15/21 Unknown History aerosol inhaler Breath Or Wheezing allopurinol 100 mg tablet 1 tab PO DAILY 06/02/21 12/15/21 Unknown History apixaban 5 mg tablet (Eliquis) 1 tab PO BID 06/02/21 12/15/21 Unknown History gabapentin 300 mg capsule 1 cap PO TID 06/02/21 12/15/21 Unknown History loratadine 10 mg tablet 1 tab PO DAILY 06/02/21 12/15/21 Unknown History multivitamin with folic acid 400 1 tab PO DAILY 06/02/21 12/15/21 Unknown History mcg tablet (Daily-Lazara (with folic acid)) omeprazole 20 mg capsule,delayed 1 cap PO DAILY@0630 06/02/21 12/15/21 Unknown History release quetiapine 25 mg tablet 1 tab PO BID PRN Agitation 06/02/21 12/15/21 Unknown History clindamycin phosphate 1 % lotion 1 appl topical BID 12/15/21 12/15/21 Unknown History diphenhydramine HCl 25 mg capsule 1 cap PO TID PRN itch 12/15/21 12/15/21 Unknown History (Banophen) hydroxyurea 500 mg capsule 2 cap PO BEDTIME 12/15/21 12/15/21 Unknown History hydroxyzine HCl 50 mg tablet 1 tab PO TID PRN anxiety 12/15/21 12/15/21 Unknown History metronidazole 500 mg tablet 1 tab PO BID 12/15/21 12/15/21 Unknown History oxycodone 10 mg tablet 2 tab PO Q4H PRN Pain (Scale Score 12/15/21 12/15/21 Unknown History 4-6) colchicine (gout) 0.6 mg tablet 0.6 mg PO DAILY 12/14/22 Unknown History fluticasone propionate 50 1 spray intranasal BID 12/14/22 Unknown History mcg/actuation nasal spray,suspension lorazepam 1 mg tablet 1 mg PO BID PRN anxiety 12/14/22 Unknown History Physical Exam 2 Vital Signs and Narrative: Vital Signs: Last Vital Signs Temp 98.8 F 12/14/22 10:40 Pulse 94 12/14/22 10:40 Resp 16 12/14/22 10:40 BP 97/56 L 12/14/22 10:40 Pulse Ox 92 12/14/22 10:00 O2 Del Method Nasal Cannula 12/14/22 10:00 O2 Flow Rate 5 12/14/22 10:00 Oxygen Flow Rate 5 12/14/22 05:07 BMI result Body Mass Index 23.2 Results Labs 12/14/22 07:55 12/14/22 07:55 Labs: Laboratory Results - last 24 hr 12/14/22 12/14/22 12/14/22 07:55 07:55 07:55 MCV 94.3 MCH 35.2 H MCHC 37.3 H RDW 20.7 H Plt Count 140 L MPV 12.7 H Immature Gran % (Auto) Cancelled Neut % (Auto) Cancelled Lymph % (Auto) Cancelled [place] % (Auto) Cancelled Eos % (Auto) Cancelled Baso % (Auto) Cancelled Lymph # (Auto) Cancelled [place] # (Auto) Cancelled Eos # (Auto) Cancelled Baso # (Auto) Cancelled Abs Immat Gran (auto) Cancelled Absolute Neuts (auto) Cancelled Absolute Nucleated RBC 1.210 H Nucleated RBC % (auto) 8.0 H Neutrophils % (Manual) 46 Band Neutrophils % 9 H Lymphocytes % (Manual) 36 Monocytes % (Manual) 4 Eosinophils % (Manual) 3 Basophils % (Manual) 1 Metamyelocytes % 1 Abs Neuts (Manual) 8.3 Lymphocytes # (Manual) 5.4 H Monocytes # (Manual) 0.6 Eosinophils # (Manual) 0.5 H Basophils # (Manual) 0.2 Metamyelocytes # 0.2 Nucleated RBCs 16 H Platelet Estimate NORMAL Large Platelets PRESENT Giant Platelets PRESENT Plt Morphology Comment NOTED RBC Morphology NOTED Polychromasia 1+ (0-2) Basophilic Stippling 1+ (0-2) Microcytosis 1+ (5-14) Macrocytosis 1+ (5-14) Pappenheimer Bodies PRESENT Sickle Cells 3+ (>5) Target Cells 1+ (5-14) Absolute Retic 0.209 H Cancelled Percent Retic 11.9 H Cancelled Immature Retic Fraction 38.4 H Retic Hgb Equivalent Anion Gap Estim Creat Clear Calc Estimated GFR Random Glucose Calcium Total Bilirubin AST ALT Alkaline Phosphatase Total Protein Albumin Blood Type Antibody Screen Crossmatch (AHG) 12/14/22 12/14/22 12/14/22 07:55 07:55 08:34 MCV MCH MCHC RDW Plt Count MPV Immature Gran % (Auto) Neut % (Auto) Lymph % (Auto) [place] % (Auto) Eos % (Auto) Baso % (Auto) Lymph # (Auto) [place] # (Auto) Eos # (Auto) Baso # (Auto) Abs Immat Gran (auto) Absolute Neuts (auto) Absolute Nucleated RBC Nucleated RBC % (auto) Neutrophils % (Manual) Band Neutrophils % Lymphocytes % (Manual) Monocytes % (Manual) Eosinophils % (Manual) Basophils % (Manual) Metamyelocytes % Abs Neuts (Manual) Lymphocytes # (Manual) Monocytes # (Manual) Eosinophils # (Manual) Basophils # (Manual) Metamyelocytes # Nucleated RBCs Platelet Estimate Large Platelets Giant Platelets Plt Morphology Comment RBC Morphology Polychromasia Basophilic Stippling Microcytosis Macrocytosis Pappenheimer Bodies Sickle Cells Target Cells Absolute Retic Percent Retic Immature Retic Fraction Cancelled Retic Hgb Equivalent 32.5 Cancelled Anion Gap 13 Estim Creat Clear Calc 77.6 Estimated GFR > 60 Random Glucose 106 Calcium 9.1 D Total Bilirubin 3.3 H AST 102 H ALT 33 H Alkaline Phosphatase 206 H Total Protein 7.2 Albumin 3.4 L Blood Type O Positive Antibody Screen NEGATIVE Crossmatch (AHG) See Detail Imaging Radiologist's Impressions: Impressions Chest X-Ray 12/14/22 07:34 IMPRESSION: Diffuse coarse lung opacities similar to previous. No acute dense focal pneumonia. No significant pleural fluid or pneumothorax Assessment and Plan Time Spent With Patient Time: Total time managing care of this patient today ____ minutes.
--- NOTE | 2022-12-14 11:48 | PHA.MEDREC ---
Pharmacy Consult ? Medication Reconciliation Pharmacy has completed the medication reconciliation. Patient is poor historian. Contacted patient's pharmacy to confirm meds.
[2022-12-14 14:05] VITALS: BP 105/74; PULSE 86; RESP 16; TEMP 36.6
--- NOTE | 2022-12-14 14:37 | PC.NURSE ---
approx at 1025 patient became restless, throwing herself in the bed, scratching her entire body. pt was ripping off her O2, ripping at her EJ almost dislodging it multiple times. Staff started blood at 1030, and was 1:1 with patient for multiple hours. Pt needing constant redirection, staff stopping patient multiple times at pulling at lines, Pt constantly ripping O2 off, and O2 prob/BP cuff. Pt constantly down stream occluding blood running. Pt became starting to yell at staff to keep our hands off her, to leave her alone. Soft restraints placed approx 1230 d/t pt continuing to almost rip EJ out, and interfering with medical equipment and patient care. Blood took full 4 hours to run in d/t patient continuing moving and not cooperating with care. Pt currently sleeping contorted in bed, continuing to rip O2 off.
[2022-12-14] MEDS: Azithromycin 500 MG in 0.9 % Sodium Chloride 250 ML 125 MG IV (15:04)
[2022-12-14] MEDS: 0.9 % Sodium Chloride 1,000 ML 999 ML IVCONT (15:05)
[2022-12-14] MEDS: Dextrose 5 % and 0.45 % NaCl 1,000 ML 100 ML IVCONT (22:25)
[2022-12-14] MEDS: LORazepam 1 MG TABLET PO (23:03)
[2022-12-14] MEDS: HYDROmorphone HCl 1 MG/ML SYRINGE IVPUSH (23:05)
--- NOTE | 2022-12-14 23:12 | PC.NURSE ---
Dr maria made aware pt requesting benadryl for itch caused by dilaudid. Pt medicated per apr. Plan of care ongoing.
[2022-12-15] VITALS (10 sets, daily range): BP systolic 101–139; BP diastolic 60–83; PULSE 68–92; RESP 16–20; TEMP 36.2–37.1; O2SAT 92–99; BMI 22.6
--- NOTE | 2022-12-15 00:02 | PC.NURSE ---
Valerie care performed. Bed cleaned and changed Pt changed into clean hospital attire. Pt placed on purewick Pt requested and given phone Pt requested and given warm blankets. PLan of care ongoing.
--- NOTE | 2022-12-15 00:57 | PC.NURSE ---
Pt requested and given food and drink Plan of care ongoing.
[2022-12-15 05:30] LABS: Hemoglobin 7.1 g/dl (12.0-16.0); Mean Corpuscular HGB Conc 37.2 g/dl (31.0-35.0); Mean Corpuscular Volume 94.1 fL (80.0-98.0); Mean Platelet Volume 13.5 fL (9.4-12.3); PLT CLUMP 1; Red Blood Count 2.03 X10*6/uL (4.20-5.50); Red Cell Distribution Width 18.5 % (11.0-16.0)
[2022-12-15] MEDS: diphenhydrAMINE HCL 50 MG/ML VIAL 25 MG IVPUSH ×2 (05:40→11:53)
[2022-12-15] MEDS: HYDROmorphone HCl 1 MG/ML SYRINGE IVPUSH ×3 (05:41→16:42)
[2022-12-15 05:45] LABS: NRBC Pct Auto 10.9 /100WBC (0.0-0.2); PLT ABN DIST 1; WBC ABN SCTR FOR CBC 1
--- NOTE | 2022-12-15 05:45 | PC.NURSE ---
Pt requested and given pain meds and benadryl. Pt medicated per apr. Plan of care ongoing.
[2022-12-15 05:50] LABS: Hematocrit 19.1 % (37.0-47.0)
--- NOTE | 2022-12-15 05:51 | PC.NURSE ---
Pt has a critical hematocrit 19.1. Dr. Pena notified of critical lab.
[2022-12-15 05:56] LABS: White Blood Count 15.7 X10*3/uL (4.8-10.8)
[2022-12-15 07:20] LABS: Platelet Count 119 X10*3/uL (160-400)
--- NOTE | 2022-12-15 08:10 | HO.PM.IMPN ---
Subjective Subjective Date of Service: 12/15/22 Interval History: f/u on sicle cell crisis, anemia overall seems better still c/o pain lost iv access, she is now lucid Physical Exam Vital Signs: Vital Signs: Last Vital Signs Temp 98 F 12/14/22 14:05 Pulse 82 12/15/22 04:15 Resp 18 12/15/22 04:15 BP 107/67 12/15/22 04:15 Pulse Ox 96 12/15/22 04:15 O2 Del Method Nasal Cannula 12/15/22 04:15 O2 Flow Rate 4 12/15/22 04:15 Oxygen Flow Rate 5 12/14/22 05:07 BMI result Body Mass Index 23.2 Const: Other: General: AO X 3, cachectic Resp: CTA bilateral CVS: S1,S2,RRR GI: +BS, NT, no distention Skin: No rash Neuro: motor grossly intact Psych: appropriate affect Objective Data Active Medications Acetaminophen (Acetaminophen 325 Mg Tablet) 650 mg PO Q6H PRN PRN Reason: Pain, Mild (Pain Scale 1-3) Albuterol Sulfate (Albuterol Sulfate 90 Mcg 8 Gm Inhaler) 2 puff INHALE Q6H PRN PRN Reason: Shortness Of Breath Or Wheezing Colchicine (Colchicine 0.6 Mg Tablet) 0.6 mg PO DAILY PHILLIP Diphenhydramine HCl (Diphenhydramine Hcl 50 Mg/Ml Vial) 25 mg IVPUSH Q6H PRN PRN Reason: Itching Last Admin: 12/15/22 05:40 Dose: 25 mg Documented By: YINA Docusate Sodium (Docusate Sodium 100 Mg Capsule) 100 mg PO DAILY PRN PRN Reason: Constipation Fluticasone Propionate (Fluticasone Propionate Nasal 16 Gm [place]) 1 spray NOSTRIL-B BID PRN PRN Reason: Allergy Symptoms Hydromorphone HCl (Hydromorphone Hcl 1 Mg/Ml Syringe) 1 mg IVPUSH Q4H PRN; Protocol PRN Reason: Pain, Severe (Pain Scale 7-10) Last Admin: 12/15/22 05:41 Dose: 1 mg Documented By: YINA Hydromorphone HCl (Hydromorphone Hcl 2 Mg Tablet) 2 mg PO Q4H PRN PRN Reason: Pain, Severe (Pain Scale 7-10) Dextrose/Sodium Chloride (D51/2ns) 1,000 mls @ 100 mls/hr IVCONT .Q10H [facility] Last Admin: 12/14/22 22:25 Dose: 100 mls/hr Documented By: YINA Loratadine (Loratadine 10 Mg Tablet) 10 mg PO DAILY [facility] Lorazepam (Lorazepam 1 Mg Tablet) 1 mg PO BID PRN PRN Reason: anxiety Last Admin: 12/14/22 23:03 Dose: 1 mg Documented By: YINA Magnesium Hydroxide (Milk Of Magnesia 30 Ml Oral.Susp) 30 ml PO DAILY PRN PRN Reason: Constipation Melatonin (Melatonin 3 Mg Tablet) 6 mg PO BEDTIME PRN PRN Reason: Insomnia Ondansetron HCl (Ondansetron Hcl 4 Mg/2 Ml Vial) 4 mg IVPUSH Q8H PRN PRN Reason: Nausea and Vomiting Oxycodone HCl (Oxycodone Hcl Immed Release 5 Mg Tablet) 20 mg PO Q4H PRN PRN Reason: Pain (Scale Score 4-6) Sodium Chloride (0.9 % Sodium Chloride Flush 3 Ml Syringe) 3 ml IVFLUSH QSHIFT [facility] Last Admin: 12/15/22 00:08 Dose: Not Given Documented By: YINA Non-Admin Reason: IV Running Labs 12/15/22 05:20 12/14/22 07:55 Labs: Laboratory Results - last 24 hr 12/14/22 12/14/22 12/15/22 07:55 08:34 05:20 MCV 94.3 94.1 MCH 35.2 H 35.0 H MCHC 37.3 H 37.2 H RDW 20.7 H 18.5 H Plt Count 140 L 119 L MPV 12.7 H 13.5 H Immature Gran % (Auto) Cancelled Neut % (Auto) Cancelled Lymph % (Auto) Cancelled [place] % (Auto) Cancelled Eos % (Auto) Cancelled Baso % (Auto) Cancelled Lymph # (Auto) Cancelled [place] # (Auto) Cancelled Eos # (Auto) Cancelled Baso # (Auto) Cancelled Abs Immat Gran (auto) Cancelled Absolute Neuts (auto) Cancelled Absolute Nucleated RBC 1.210 H 1.710 H Nucleated RBC % (auto) 8.0 H 10.9 H Neutrophils % (Manual) 46 Band Neutrophils % 9 H Lymphocytes % (Manual) 36 Monocytes % (Manual) 4 Eosinophils % (Manual) 3 Basophils % (Manual) 1 Metamyelocytes % 1 Abs Neuts (Manual) 8.3 Lymphocytes # (Manual) 5.4 H Monocytes # (Manual) 0.6 Eosinophils # (Manual) 0.5 H Basophils # (Manual) 0.2 Metamyelocytes # 0.2 Nucleated RBCs 16 H Platelet Estimate NORMAL Large Platelets PRESENT Giant Platelets PRESENT Plt Morphology Comment NOTED RBC Morphology NOTED Polychromasia 1+ (0-2) Basophilic Stippling 1+ (0-2) Microcytosis 1+ (5-14) Macrocytosis 1+ (5-14) Pappenheimer Bodies PRESENT Sickle Cells 3+ (>5) Target Cells 1+ (5-14) Smear Path Review Cancelled Absolute Retic 0.209 H Percent Retic 11.9 H Immature Retic Fraction 38.4 H Retic Hgb Equivalent 32.5 Anion Gap 13 Estim Creat Clear Calc 77.6 Estimated GFR > 60 Random Glucose 106 Calcium 9.1 D Total Bilirubin 3.3 H AST 102 H ALT 33 H Alkaline Phosphatase 206 H Total Protein 7.2 Albumin 3.4 L Blood Type O Positive Antibody Screen NEGATIVE Crossmatch (AHG) See Detail Assessment and Plan (1) Sickle cell crisis: Status: Acute (2) Anemia: Status: Acute Plan 52-year-old female with history of sickle cell disease here with pain crisis and anemia and presently also appears delirious 1. Sickle Cell ciris 2. Acute anemia d/t sickle cell -Transfusion to maintain hemoglobin around 7 to 8 -IVF -Narcotics for pain -O2 - Consider hematoloty consult if not improving 2.Chronic hyypoxic respiratory failure, continue O2 to maintain O2 92 to 95 3. h/o of DVT over a year ago, no longer on eliquis 4. GERD continue PPI 5. history of bipolar disorder, continue meds upon completion of med rec need for inpatient: treatment of sickle cell crisis, anemia and pain management with IV meds ?DVT prophylaxis:?heparin Full Code requesting midline for iv access Time Spent With Patient Time: Total time managing care of this patient today ____ minutes. Quality Stroke Does the patient have a stroke diagnosis?: No VTE Prior VTE?: Yes VTE Risk Level:: Medical - moderate - high VTE Device Contraindication: N/A - Device Ordered VTE Drug Contraindication: N/A - Med Ordered
--- NOTE | 2022-12-15 08:29 | PC.NURSE ---
patient IV access not stable, unable to start blood tranfusion due to access issue
--- NOTE | 2022-12-15 08:43 | MHC.CM.PN ---
CM ATTEMPTED TO SEE PT WHO IS SLEEPING AND DOES NOT RESPOND TO VERBAL STIMULI CM WILL REVISIT
[2022-12-15] MEDS: oxyCODONE HCl Immed Release 5 MG TABLET 20 MG PO (09:00)
[2022-12-15] MEDS: Loratadine 10 MG TABLET PO (09:00)
[2022-12-15] MEDS: 0.9 % Sodium Chloride Flush 3 ML SYRINGE IVFLUSH ×2 (09:09→16:42)
--- NOTE | 2022-12-15 09:11 | MHC.CM.PN ---
PT REPORTS SHE LIVES ALONE AND HAS DAILY ARTISTIC DIRECTOR SERVICES SHE REPORTS SHE DOES NOT HAVE ANY OTHER SERVICES BUT FEELS SHE NEEDS VNA PT HAS HOME O2 FROM [facility] AND NO OTHER DME HCP ON FILE PCP: DR DE ANDA AT [facility] IMM DELIVERED DCP: HOME, RESUME ARTISTIC DIRECTOR ? NEW VNA PT SAYS SHE WILL HAVE TRANSPORTATION HOME
--- NOTE | 2022-12-15 10:32 | PC.NURSE ---
attempted to access patients port per order by attending doctor, patient refused port access.
--- NOTE | 2022-12-15 10:38 | MHC.EDTECH ---
[place] [facility] [id number] patient refuses to have leads placed on chest for heart monitor. rn aware. this pct authorized to transport regardless.
[2022-12-15] MEDS: Colchicine 0.6 MG TABLET PO (10:39)
--- NOTE | 2022-12-15 10:45 | PC.NURSE ---
patient refused awake overnight monitor for transfer to floor
[2022-12-15] MEDS: LORazepam 1 MG TABLET PO ×2 (11:53→19:57)
[2022-12-15] MEDS: Dextrose 5 % and 0.45 % NaCl 1,000 ML 100 ML IVCONT ×2 (11:56→22:59)
--- NOTE | 2022-12-15 18:17 | PC.NURSE ---
This RN placed a 20 g angio to the left basilic vein with great blood return and ease of flushing while awaiting neg blood cultures. pt fahad procedure well.
[2022-12-15] MEDS: HYDROmorphone HCl 2 MG TABLET PO (19:53)
--- NOTE | 2022-12-15 20:02 | PC.NURSE ---
pt educated on the importance of tele monitor during a blood transfussion. pt refusing tele monitoring despite education.
[2022-12-16 03:11] VITALS: BP 130/72; PULSE 71; RESP 19; TEMP 36.6; O2SAT 95
[2022-12-16] MEDS: HYDROmorphone HCl 1 MG/ML SYRINGE IVPUSH ×2 (03:44→11:21)
[2022-12-16] MEDS: LORazepam 1 MG TABLET PO (06:40)
[2022-12-16] MEDS: HYDROmorphone HCl 2 MG TABLET PO (06:41)
[2022-12-16 07:34] VITALS: BP 132/77; PULSE 71; RESP 18; TEMP 36.1; O2SAT 98
--- NOTE | 2022-12-16 09:11 | P.DS_ITS ---
DS: Providers Provider Date of Service: 12/16/22 Date of admission: 12/14/22 15:42 Primary care physician: Lesia Cuevas MD DS: Diagnosis Discharge Diagnosis (1) Sickle cell crisis: Status: Acute (2) Anemia: Status: Acute DS: Summary Hospital Course Hospital Course: Admission HPI Chief Complaint: Diffuse pain A 61-year-old female with a medical history marked by sickle cell disease, chronic anemia, thrombocytopenia, tricuspid regurgitation, mild to moderate pulmonary hypertension, severe COPD, long covid syndrome, and a prior episode of acute respiratory distress syndrome (ARDS) necessitating intubation, tracheostomy, and percutaneous endoscopic gastrostomy (PEG) tube placement, which has since been removed. She currently relies on chronic home oxygen therapy at a rate of 5 liters per minute via a nasal cannula. She also experiences anxiety, depression, and has a history of tobacco, alcohol, and cocaine use. The patient presented to the emergency department with diffuse pain and chest discomfort. Her hemoglobin level is 6.2, and her hematocrit is 16. Additionally, her bilirubin levels are elevated mildly, and there is a slight increase in liver function tests. To manage her pain and discomfort, she has received multiple doses of medications, including Dilaudid, Ativan, hydroxyzine, and Benadryl. At present, she is in a significantly sedated state and unable to engage in coherent conversation. She is maintaining her oxygen saturation as long as she keeps her oxygen supply on but remains highly agitated and restless, Hospital course: The patient came in with widespread pain and severe anemia indicative of an acute sickle cell crisis. Her treatment included the administration of intravenous pain medication and a blood transfusion. Initially, her hemoglobin level was as low as 6, but after receiving three units of red blood cells, it increased to 9. As a result, her pain is now effectively managed. Additionally, the patient received intravenous hydration and is currently using oxygen therapy at home due to chronic respiratory failure. Upon discharge, the patient was instructed to schedule a follow-up appointment with her car rental deliverer for ongoing management of her sickle cell disease. It's important to mention that the patient has a history of challenging intravenous access, and she had a previously implanted port that is no longer functional. It's advisable to contemplate the possibility of revising the non- functional port on an outpatient basis. Time Spent with Patient Time attestation: Total time managing care of this patient today ____ minutes. Discharge coordination time: Greater than 30 minutes Quality: Safe Use of Opioids Does Pt have an Active Cancer Diagnosis on the Problem List?: No Quality: Stroke Does the patient have a stroke diagnosis?: No Physical Exam Vital Signs: Vital Signs: Last Vital Signs Temp 97.0 F 12/16/22 07:34 Pulse 71 12/16/22 07:34 Resp 18 12/16/22 07:34 BP 132/77 12/16/22 07:34 Pulse Ox 98 12/16/22 07:34 O2 Del Method Nasal Cannula 12/16/22 07:34 O2 Flow Rate 5 12/16/22 07:34 Oxygen Flow Rate 5 12/14/22 05:07 BMI result Body Mass Index 22.6 DS: Data Data Completed and Pending Completed studies during hospitalization [Text1]: Procedures Detoxification Services for Substance Abuse Treatment (12/05/19) Insertion of Infusion Device into Right Subclavian Vein, Percutaneous Approach (06/26/20) Insertion of Infusion Device into Superior Vena Cava, Percutaneous Approach (06/26/20) Transfusion of Nonautologous Red Blood Cells into Peripheral Vein, Percutaneous Approach (12/15/21) Labs on day of discharge: Laboratory Results - last 24 hr 12/14/22 08:34 Blood Type O Positive Antibody Screen NEGATIVE Crossmatch (AHG) See Detail Preliminary micro results at discharge 12/14/22 09:13 Blood Culture - Preliminary Blood - Venous No growth after 24 hours. 12/14/22 09:13 Blood Culture - Preliminary Blood - Venous No growth after 24 hours. Discharge Plan Discharge Anticipated Discharge Date/Time: 12/16/22 14:39 Patient Disposition: Home, Self-Care Discharge Diagnosis: Sickle cell crisis, Anemia Referrals: [facility] [Outside] - 1 Week Lesia Cuevas MD [Primary Care Provider] - 1 Week Discharge Medications: Continued oxycodone 10 mg tablet 2 tab PO Q4H PRN (Reason: Pain (Scale Score 4-6)) albuterol sulfate 90 mcg/actuation HFA aerosol inhaler 2 puff PO Q6H PRN (Reason: Shortness Of Breath Or Wheezing) loratadine 10 mg tablet 1 tab PO DAILY lorazepam 1 mg tablet 1 mg PO BID PRN (Reason: anxiety) colchicine (gout) 0.6 mg tablet 0.6 mg PO DAILY fluticasone propionate 50 mcg/actuation spray,suspension 1 spray intranasal BID PRN (Reason: Allergy Symptoms) Discharge Orders: Discharge Order (Routine); Ordered 12/16/22 Ordered By: Kris Weber Diet: Advance to usual diet Activity on Discharge: As tolerated Stand Alone Forms: Patient Portal Discharge page Care Plan Goals: recovery from sickle cell crisis and anemia Health Concerns: chronic anemia chronic respiratory failure chronic pain Plan of Treatment: Follow up with your hematoligist and your primary care provider Assessment: as above Discharge Date/Time: 12/16/22 16:49
[2022-12-16 10:03] LABS: Hematocrit 24.3 % (37.0-47.0); Hemoglobin 9.1 g/dl (12.0-16.0); Mean Corpuscular HGB Conc 37.4 g/dl (31.0-35.0); Mean Corpuscular Volume 93.5 fL (80.0-98.0); Mean Platelet Volume 13.9 fL (9.4-12.3); PLT CLUMP 1; Red Cell Distribution Width 18.8 % (11.0-16.0)
[2022-12-16 10:04] LABS: NRBC Pct Auto 15.5 /100WBC (0.0-0.2); WBC ABN SCTR FOR CBC 1
[2022-12-16 10:38] LABS: Platelet Count 123 X10*3/uL (160-400); White Blood Count 14.8 X10*3/uL (4.8-10.8)
[2022-12-16 11:09] VITALS: BP 117/64; PULSE 76; RESP 20; TEMP 37.2; O2SAT 99
[2022-12-16] MEDS: diphenhydrAMINE HCL 50 MG/ML VIAL 25 MG IVPUSH (11:21)
--- NOTE | 2022-12-16 16:04 | MHC.CM.PN ---
CM has arranged for a LYFT for Patient transport to home today at 5PM. RN provided her cell # because Patient's cell phone is not in services at this time.
--- NOTE | 2022-12-16 16:25 | MHC.CM.PN ---
Pt medically cleared for D/C home with [facility].
== END 2022-12-16 16:49 | disposition home or self-care (01) | DRG 812 ==
LOC: HO.ED 08:50 → HO.EDOVER 15:57 → HO.IMC 12-15 09:58
PROVIDERS: Admitting Provider Internal Medicine; Emergency Provider Emergency Medicine; PCP Student in an Organized Health Care Education/Training Program; Visit Provider Internal Medicine
DX: D57.00 Hb-SS disease with crisis, unspecified (principal); J96.11 Chronic respiratory failure with hypoxia; F17.210 Nicotine dependence, cigarettes, uncomplicated; Z71.6 Tobacco abuse counseling; Z79.899 Other long term (current) drug therapy
CPT/HCPCS: 36415; 71046; 80053; 84484; 85007; 85025; 85027; 85045; 86850; 86900; 86901; 86902; 86920; 86922; 87040; 93005; 99285; J0456; J0696; J1170; J1200; J1642; J2060; P9016

== ENCOUNTER → 2022-12-14 15:42 | Outpatient (BNV) | payer MEDICARE, MEDICAID, SELFPAY | PROVIDERS: Admitting Provider Internal Medicine; Emergency Provider Emergency Medicine; Visit Provider Internal Medicine | DX: D57.00 Hb-SS disease with crisis, unspecified (principal); D64.9 Anemia, unspecified | CPT/HCPCS: 99223; 99232; 99239 ==

== ENCOUNTER 2023-01-01 09:25 | Inpatient (IN) | payer MEDICARE, MEDICAID, SELFPAY ==
[2023-01-01] VITALS (13 sets, daily range): BP systolic 98–119; BP diastolic 50–77; PULSE 79–95; RESP 16–20; TEMP 36.6–37.4; O2SAT 3–100; BMI 19.9; BMI 21.2
--- NOTE | ~2023-01-01 | XR_ITS ---
EXAMINATION: XR CHEST CLINICAL INFORMATION: Cough COMPARISON: Chest radiograph 12/14/2022 CT chest 06/03/2021 TECHNIQUE: Frontal view of the chest was obtained. FINDINGS: Heart size upper limits of normal. Some mild upper zone redistribution is seen. Chronic reticular nodular markings seen most prominent at the lung bases consistent with interstitial lung disease seen on prior CT. No new consolidation or pleural effusion. When comparison is made to the 12/14/2022 study, there's been no interval change. XR/XR chest 1V IMPRESSION: No acute intrathoracic disease. Chronic interstitial lung disease.
[2023-01-01 10:10] LABS: Basophils Absolute Auto 0.1 X10*3/uL (0.0-0.2); Basophils Percent Auto 0.8 % (0-2); Eosinophils Absolute Auto 0.2 X10*3/uL (0.0-0.4); Eosinophils Percent Auto 1.1 % (0-4); Hematocrit 22.6 % (37.0-47.0); Hemoglobin 7.7 g/dl (12.0-16.0); Imm Gran Abs Auto 0.11 X10*3/uL (0.00-0.03); Imm Gran Pct Auto 0.7 % (0.0-0.4); Lymphocytes Absolute Auto 1.6 X10*3/uL (1.2-4.9); Lymphocytes Percent Auto 10.9 % (20-40); MANUAL DIFF FLAG SCAN; Mean Corpuscular HGB Conc 34.1 g/dl (31.0-35.0); Mean Corpuscular Hemoglobin 32.9 pg (27.0-33.0); Mean Corpuscular Volume 96.6 fL (80.0-98.0); Mean Platelet Volume 11.5 fL (9.4-12.3); Monocytes Absolute Auto 2.2 X10*3/uL (0.1-1.2); Monocytes Percent Auto 14.9 % (2-11); Neutrophils Absolute Auto 10.6 x10*3/uL (2.0-8.3); Neutrophils Percent Auto 71.6 % (45-73); Platelet Count 212 X10*3/uL (160-400); Red Blood Count 2.34 X10*6/uL (4.20-5.50); Red Cell Distribution Width 17.2 % (11.0-16.0); SCAN SMEAR FLAG 1; White Blood Count 14.9 X10*3/uL (4.8-10.8)
[2023-01-01 10:23] LABS: Alanine Aminotransferase 25 U/L (0-31); Albumin Level 3.6 g/dL (3.5-5.0); Alkaline Phosphatase 226 U/L (39-117); Anion Gap 16 (12-20); Aspartate Amino Transferase 65 U/L (5-31); Bilirubin Total 2.2 mg/dL (0.0-1.0); Blood Urea Nitrogen 13 mg/dL (9-16); Calcium 8.9 mg/dL (8.4-10.2); Carbon Dioxide 20 mmol/L (22-29); Chloride 110 mmol/L (96-108); Creatinine Clr Calc Pharmacy 66.6; Estimated Glomerular Filt Rate > 60; Glucose Random 106 mg/dL (60-115); Potassium 3.7 mmol/L (3.3-5.1); Sodium 142 mmol/L (135-145); Total Protein 7.9 g/dL (6.5-8.0)
[2023-01-01 10:42] LABS: NRBC Pct Auto 3.2 /100WBC (0.0-0.2); RET ABN SCTR 1
[2023-01-01 10:51] LABS: SLIDE REVIEW VERIFIED
--- OUTSIDE RECORDS SUMMARY | 2023-01-01 10:51 | XMS_ITS | Continuity of Care Document ---
Author Name Unknown Organization [facility] Address [address] [place] [id number]- Care Team Providers Care Licensed Nurse Practitioner Name Role Phone Lesia Cuevas MD Primary Care Physician Encounter [facility] [place] Date(s): 11/17/22 - 12/27/[address] [id number] Attending Physician: Joyce Ireland MD Admitting [...] Comment: normal saline diluent added lot number [id number] expires 07/23/2022 2Result Comment: Afluria Medications allopurinol 100 mg oral tablet 100 mg, 1, tablet, By Mouth, Daily, # 90 tablet, Refills 1, Tot. Refills 1, Maintenance, 10/24/21 13:18:00 EDT, Route to Pharmacy Electronically, [facility]/pharmacy #[id number], Partial fill upon patient requestif the prescription is for a schedule II opioid lynn... Start Date: 10/24/21 Status: Ordered clindamycin 1% topical lotion 1 application, Topically, 2 times a day, apply to L armpit lesions/bumps twice per day until healed, # 60 mL, 0 Refills, Maintenance, 10/24/21 15:35:00 EDT, Lotion, [facility]/pharmacy #[id number], [...] Refills, Maintenance, 05/14/22 15:26:00 EDT, [id number], 163, cm, 05/12/22 16:01:00 EDT, Height, 61.5, kg, 05/10/2316:29:00 EDT, Dry Weight Start Date: 05/14/22 Status: Ordered Estrace Vaginal Cream 0.1 mg/g = 1 Gm, Vaginally, Daily at bedtime, # 90 Gm, 3 Refills, Maintenance, 12/06/21 14:57:00 EDT, [facility]/pharmacy #1130, Partial fill upon patient request if the prescription is for a schedule II opioid drug., 160, cm, 12/06/21 14:22:00 EDT, Height, 72.9, kg,... Start Date: 12/06/21 Status: Ordered Eucerin Plus topical lotion 1 application, Topically, 2 times a day, PRN for dry skin, # 180 mL, 0 Refills, Maintenance, 03/12/22 16:28:00 EST, Lotion, [facility]/pharmacy #1130, Partial fill upon patient request if the prescription is for a schedule II opioid drug., 1 application Topi... Start Date: 03/12/22 Status: Ordered Flonase 50 mcg/inh nasal spray 1 sprays, Nares, Both, 2 times a day, # 1 each, 6 Refills, Maintenance, 07/08/22 17:26:00 EDT, [place], [facility], Partial fill upon patient request [...] 15:56:00 EST, Route to Pharmacy Electronically, [facility]/pharmacy #1130, 163, cm, 04/11/22 15:32:00 EST, Height, 60.8, kg, 02/19/22 19:05:00 EST, Dry Weight Start Date: 04/11/22 Status: Ordered LORazepam 1 mg oral tablet 1 tablet = 1 mg, By Mouth, 2 times a day, for 7 days, # 14 tablet, 0 Refills, Acute 01/01/23 16:23:00 EST, 12/25/22 16:23:00 EDT, Tablet, [facility]/pharmacy #1026, Partial fill upon patient request if the prescription is for a schedule II opioid drug., 163,... Start Date: 12/25/22 Stop Date: 01/01/23 Status: Ordered MiraLax oral powder for reconstitution = 17 Gm, By Mouth, Daily, dissolve in water before taking, # 255 Gm, 1 Refills, Maintenance, 04/11/22 21:05:00 EST, REC Powder, [facility]/pharmacy #1130, Partial fill upon patient request if the prescription is for a schedule II opioid drug., 17 Gm By Mouth... Start Date: 04/11/22 Status: Ordered nicotine 4 mg oral transmucosal gum See Instructions, CHEW 1 PIECE EVERY 2 HOURS NEEDED FOR SMOKING CESSATION, # 200 gum, 0 Refills,[facility] [id number], 160, cm, 08/01/21 21:18:00 EDT, Height, 72.9, kg, 08/01/21 21:18:00 EDT, Dry Weight Start Date: 08/05/21 Status: Ordered omeprazole 20 mg oral enteric coated capsule 1 capsule = 20 mg, By Mouth, Daily, # 90 capsule, 10 Refills, Maintenance, 10/24/21 12:29:00 EDT, [facility]/pharmacy #1130, Partial fill upon patient request if the prescription is for a schedule II opioiddrug., 160, cm, 10/24/21 11:46:00 EDT, Height, 72.9... Start Date: 10/24/21 Status: Ordered oxyCODONE 10 mg oral tablet 2 tablet = 20 mg, By Mouth, Every 4 hours, PRN as needed for pain, # 84 tablet, 0 Refills, Maintenance, 12/25/22 16:22:00 EDT, Tablet, [facility]/pharmacy #1026, Partial fill upon patient request if the prescription is for a schedule II opioid drug., 163, cm... Start Date: 12/25/22 Stop Date: 01/01/23 Status: Ordered oxyCODONE 5 mg oral tablet 20 mg, 4, tablet, By Mouth, Every 4 hours, PRN, # 168 tablet, Refills 0, Tot. Refills 0, Maintenance, Pain , Severe, 07/18/22 12:19:00 EDT, Route to Pharmacy Electronically, [facility]/pharmacy #[id number], Scripfor 5 mg tabs sent as [...] 15:17:00 EDT, Route to Pharmacy Electronically, [facility]/pharmacy #[id number], Partial fill upon patient request if the prescription is for a schedule II opioid drug... Start Date: 05/12/22 Status: Ordered QUEtiapine 25 mg oral tablet 1, tablet, By Mouth, 2 times a day, PRN, # 90 tablet, Refills 0, Tot. Refills 0, Maintenance, NEEDED FOR AGITATION, 01/01/22 10:03:00 EST, Route to Pharmacy Electronically, [facility]/pharmacy #1130, 160, cm, 10/24/21 11:46:00 EDT, Height, 72.9, kg, 08/01... Start Date: 01/01/22 Status: Ordered sodium zirconium cyclosilicate 10 g oral powder for reconstitution = 5 Gm, By Mouth, Every Thursday and , # 30 each, 0 Refills, Maintenance, 02/24/22 10:38:00 EST, [facility]/pharmacy #1130, Partial [...] Care Team Personnel Name: Indiana Zuleta Position: [facility] Onco RN Member Role: Primary Care Nurse Name: Naila Hinds RN Position: [facility] RN Member Role: Primary Care Nurse Name: Marisa Rosario RN Position: [facility] RN Member Role: Primary Care Nurse Name: Carmen Hdez RN Position: [facility] ED RN W/OE and Tasks Member Role: Primary Care Nurse Name: Jordon Cruz RN Position: [facility] ED RN W/OE and Tasks Member Role: Primary Care Nurse Name: Daisy Rushing RN Position: [facility] RN Member Role: Primary Care Nurse Name: Ana Faustin RN Position: [facility] RN Member Role: Primary Care Nurse Name: Corinna Fajardo RN Position: [facility] AMB Nurse Member Role: Primary Care Nurse Name: Ira Apodaca RN Position: [facility] ED RN W/OE and Tasks Member Role: Primary Care Nurse Name: Idania More RN Position: [facility] RN Member Role: Primary Care Nurse Name: Paola Rinaldi RN Position: [facility] RN Supv Member Role: Primary Care Nurse Name: Lian Joy RN Position: [facility] RN Member Role: Primary Care Nurse Name: Nikkie Sommers RN Position: [facility] RN Supv Member Role: Primary Care Nurse Name: Jasmine Ortega NP Position: [facility] Associate Professional Member Role: Primary Care Nurse Address: Address: [address] [place] [id number] Name: Rivka Cook RN Position: [facility] RN Member Role: Primary Care Nurse Name: Daisy Brower RN Position: [facility] RN Member Role: Primary Care Nurse Name: Kimberly Skinner RN Position: [facility] RN Member Role: Primary Care Nurse Name: Abhishek Johnson RN Position: [facility] RN Member Role: Primary Care Nurse Name: Lesia Cuevas MD Position: [facility] Resident Member Role: PCP Address: Address: [address] [place] [id number]- [place] Name: Barbara Rae RN Position: [facility] AMB Nurse Member Role: Primary Care Nurse Name: Ina eRnee RN Position: [facility] RN Member Role: Primary Care Nurse Name: Yesica Delong RN Position: [facility] ED RN W/OE and Tasks Member Role: Primary Care Nurse Name: Paula Earl RN Position: [facility] RN Member Role: Primary Care Nurse Name: Susan Miller RN Position: [facility] SN RN Member Role: Primary Care Nurse Name: Pao Key Position: [facility] RN Member Role: Primary Care Nurse Name: Maris Trevino RN Position: [facility] ED RN W/OE and Tasks Member Role: Primary Care Nurse Name: Steph Gordillo RN Position: [facility] OB RN Member Role: Primary Care Nurse Name: Rene Ramos DO Position: [facility] Renal MD Member Role: Lifetime Consulting Physician Address: Address: [address] [place], [place] [address] [place] [address]- Name: Ryder Matthews Position: [facility] RN Member Role: Primary Care Nurse Name: Mary Correia RN Position: [facility] ED RN W/OE and Tasks Member Role: Primary Care Nurse Name: Tierra Razo RN Position: [facility] RN Member Role: Primary Care Nurse Name: Librado Saucedo RN Position: [facility] RN Member Role: Primary Care Nurse Name: Laron Davenport III, RN Position: [facility] RN Member Role: Primary Care Nurse Name: Danya Govea RN Position: [facility] RN Member Role: Primary Care Nurse Name: Idania Millard RN Position: [facility] RN Member Role: Primary Care Nurse Name: Blake Grant RN Position: [facility] SN RN Member Role: Primary Care Nurse Name: Mariella Ojeda RN Position: [facility] RN Member Role: Primary Care Nurse Name: Yaquelin Dawkins RN Position: [facility] RN Member Role: Primary Care Nurse Name: Cari Khan RN Position: [facility] RN Member Role: Primary Care Nurse Name: Dequan Elliott RN Position: [facility] SN RN Member Role: Primary Care Nurse Name: Esmer Rankin RN Position: [facility] AMB Nurse Member Role: Primary Care Nurse Name: Suzanna Timmons RN Position: [facility] SN RN Member Role: Primary Care Nurse Name: Juno Torres RN Position: [facility] Onco RN Member Role: Primary Care Nurse Name: Yojana Dior RN Position: [facility] RN Member Role: Primary Care Nurse Name: Farideh Balderas RN Position: [facility] Physiotherapist'S Assistant Member Role: Primary Care Nurse Name: Roxana Ann RN Position: [facility] RN Member Role: Primary Care Nurse Name: Vanessa Shelton RN Position: [facility] RN Member Role: Primary Care Nurse Name: Derick Calixto RN Position: [facility] RN Member Role: Primary Care Nurse Name: Fariba Bradley RN Position: [facility] RN Member Role: Primary Care Nurse Name: Fariba Ornelas RN Position: [facility] ED RN W/OE and Tasks Member Role: Primary Care Nurse Name: Steph Tierney RN Position: [facility] RN Member Role: Primary Care Nurse Name: Portia Baires RN Position: [facility] SN RN Member Role: Primary Care Nurse Name: Leny Shanks RN Position: [facility] RN Supv Member Role: Primary Care Nurse Name: Steph Smith RN Position: [facility] RN Member Role: Primary Care Nurse Name: Casandra Robbins RN Position: [facility] RN Supv Member Role: Primary Care Nurse Name: Maris Crowell RN Position: [facility] RN Member Role: Primary Care Nurse Name: Coni Romero LPN Position: [facility] RN Member Role: Primary Care Nurse Name: Abigail Rabago RN Position: [facility] RN Member Role: Primary Care Nurse Name: Halina Burger RN Position: [facility] Onco RN Member Role: Primary Care Nurse Name: Linda Lockwood RN Position: [facility] Physiotherapist'S Assistant Member Role: Primary Care Nurse Name: Dedra Chatman RN, I Position: [facility] RN Member Role: Primary Care Nurse Name: David Oquendo RN Position: [facility] RN Member Role: Primary Care Nurse Care Team Related Persons Name: JACKIE ALANIZ Address: home [address] [place] [address] Name: JUNO MENA Address: home [address] [place] [address] Name: JOVITA GALARZA Address: home [address] [place] [address] Name: KARL GALARZA Address: home [address] [place] [address] Name: EZEKIEL GALARZA Address: home [address] [place] [address] Name: MICHAEL BARRETT Address: home [address] [place] [address] Name: SHAD TUBBS Address: home [address] [place] [id number]
[2023-01-01 11:17] LABS: Reticulocytes Absolute 0.285 X10*6/uL (0.026-0.095)
[2023-01-01 11:17] LABS: Influenza A PCR NEGATIVE (Negative); Influenza B PCR NEGATIVE (Negative); Resp Syncy Virus RNA Qual PCR NEGATIVE (Negative); SARS COV2 PCR INHOUSE NEGATIVE (Negative)
[2023-01-01 11:18] LABS: Immature Retic Fraction 17.5 % (3.0-15.9); Retic HGB Equivalent 31.2 pg (30.0-35.0); Reticulocyte Percent 12.2 % (0.5-1.8)
[2023-01-01] MEDS: Morphine Sulfate 4 MG/ML CARTRIDGE IVPUSH ×2 (11:27→13:58)
--- NOTE | 2023-01-01 11:36 | ED.GENADULT ---
HPI - General Adult General Chief complaint: General Medical Stated complaint: sickle cell crisis,all over pain per ems Time Seen by Provider: 01/01/23 09:42 Source: patient Mode of arrival: EMS History of Present Illness HPI narrative: 52-year-old female who presents via EMS for 2 days of feeling unwell in complaining of generalized abdominal discomfort to include cough and shortness of breath. Patient does have known sickle cell and believes that she may be in a crisis at this time. Related Data Home Medications Medication Instructions Recorded Confirmed albuterol sulfate 90 mcg/actuation 2 puff PO Q6H PRN Shortness Of 06/02/21 01/01/23 aerosol inhaler Breath Or Wheezing loratadine 10 mg tablet 1 tab PO DAILY 06/02/21 01/01/23 oxycodone 10 mg tablet 2 tab PO Q4H PRN Pain (Scale Score 12/15/21 01/01/23 4-6) colchicine (gout) 0.6 mg tablet 0.6 mg PO DAILY 12/14/22 01/01/23 fluticasone propionate 50 1 spray intranasal BID PRN Allergy 12/14/22 01/01/23 mcg/actuation nasal Symptoms spray,suspension lorazepam 1 mg tablet 1 mg PO BID anxiety 12/14/22 01/01/23 allopurinol 100 mg tablet 100 mg PO DAILY 01/01/23 01/01/23 gabapentin 300 mg capsule 300 mg PO TID PRN Pain 01/01/23 01/01/23 Allergies Allergy/AdvReac Type Severity Reaction Status Date / Time prochlorperazine Allergy Severe ANAPHYLAXIS Verified 05/10/20 01:39 [From COMPAZINE] Review of Systems Review of Systems: Pertinent positives and negatives as stated in HPI [facility] Past Medical History Source: nursing notes reviewed Medical History Anemia DVT (deep venous thrombosis) 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 Hypoxia Pneumonia due to 2019 novel coronavirus Pneumonia due to 2019 novel coronavirus Sickle cell anemia UTI (urinary tract infection) GERD (gastroesophageal reflux disease) PTSD (post-traumatic stress disorder) Cocaine abuse Bipolar 1 disorder Sickle cell anemia Surgical History Hx of cholecystectomy Family History Family History Other Diabetes Social History Social History Household Members: None Housing: Apartment Do you presently have visiting nurse or other home services: No Unable to assess alcohol history related to: Unable to respond Alcohol intake: current Alcohol intake frequency: a few times a week Alcohol type: beer and wine Patient Tobacco Use Status: Current everyday Tobacco user Tobacco use type: Cigarette Cigarette Packs Per Day: 5 Cigarettes Per Day: 100.0 Years Smoked: 35 Smoked in Last 30 Days: Yes e-Cigarette/Vaping Use: Never Used Second Hand Smoke Exposure: No Use of substances other than those prescribed or required for medical reasons: Yes Substance Use Type: Crack/Cocaine Substance Use Frequency: Occasionally Last Used Substance: Weeks (ago) Advance Directives: Yes Advance Directives on File: Yes Advance Directives Date on File: 12/15/22 service: No Current occupational status: unemployed and disabled Physical Exam ED Vital Signs: Vital Signs - 24 hr 01/01/23 09:44 01/01/23 11:27 01/01/23 11:57 Temperature 99.3 F 98.9 F Pulse Rate 87 95 Respiratory Rate 16 18 16 Blood Pressure 119/64 113/70 Pulse Oximetry 100 97 Oxygen Delivery Method Nasal Cannula Room Air BMI result Body Mass Index 19.9 VITAL SIGNS: Reviewed. GENERAL: Well developed, chronically ill, in no acute distress. HEAD: Normocephalic/atraumatic EYES: PERRLA, EOMI EARS: Ext canals without abnormality, TMs non-bulging and non-erythematous NOSE: Nares patent bilateral OROPHARYNX: no oral lesions noted, posterior pharynx clear and non-erythematous without noted tonsillar enlargement/erythema/exudates NECK: Supple, no adenopathy LUNGS: Normal breath sounds. No adventitious sounds or accessory muscle use. SpO2<100> CARDIOVASCULAR: Regular rate and rhythm without noted murmurs, no JVD or lower extremity edema. ABDOMEN: Soft, non-tender, non-distended with bowel sounds. MUSCULOSKELETAL: No tenderness, deformities, or effusions noted on gross inspection. EXTREMITIES: No cyanosis, clubbing or edema. SKIN: Inspection of the skin reveals no rashes NEUROLOGIC: Alert and oriented x 4. Strength and sensation to light touch were grossly intact x 4. Medications Administered Discontinued Medications Generic Name Dose Route Start Last Admin Trade Name Erik PRN Reason Stop Dose Admin Acetaminophen 975 mg 01/01/23 11:36 01/01/23 12:02 Acetaminophen 325 Mg Tablet PO 01/01/23 11:37 975 mg ONCE ONE Administration Ceftriaxone Sodium 2 gm/ 50 mls @ 100 mls/hr 01/01/23 11:22 01/01/23 12:41 Sodium Chloride IV 01/01/23 11:51 Infused ONCE ONE Infusion Morphine Sulfate 4 mg 01/01/23 11:22 01/01/23 11:27 Morphine Sulfate 4 Mg/Ml Cartridge IVPUSH 01/01/23 11:23 4 mg ONCE ONE Administration Protocol Ondansetron HCl 4 mg 01/01/23 11:56 01/01/23 12:37 Ondansetron Hcl 4 Mg/2 Ml Vial IVPUSH 01/01/23 11:57 4 mg ONCE ONE Administration Procedures EJ/Peripheral Line Arm R: Time Out Performed: No Skin Cleansed in Sterile Fashion: Yes Size (gauge): 18 IV Secured and Dressing Applied: Yes Patient Tolerated Procedure: well Additional Comments: Peripheral line was placed under ultrasound guidance. Medical Decision Making Medical Decision Making [facility] Narrative: 1115: Delay in antibiotics and blood cultures due to venous access. This is a 52-year-old female with history and clinical presentation consistent with suspected infection, lab work was obtained and on review of hematologic indices patient is noted to have a leukocytosis and also worsening anemia with reticulocyte indices this suggest possible sickle cell crisis. Patient received antibiotics. I reviewed all investigations and, once again, hematologic indices are significant for a leukocytosis and as mentioned above difficulty with IV access for obtaining lactic acid/blood cultures and administering antibiotics. Also obtain type and screen. Chemistry indices do not demonstrate any CULLEN and there is no electrolyte derangements liver enzyme abnormalities are chronically stable. Viral testing is negative. Urinalysis is still pending. Blood transfusion consent has been signed. 1146: I discussed case with inpatient hospitalist who accepts admission. Differential Diagnosis Differential Diagnoses: The differential diagnosis associated with the presentation includes Please see the discussion above Admission/Observation Consideration of admission/observation: Escalation of care including admission/observation considered Please see the discussion above Consult Healthcare Provider Management of the patient was discussed with: Hospitalist Please see the discussion above Lab Data [facility] Lab Attestation statement: I reviewed the patient's lab results. Please see the discussion above 01/01/23 10:02 01/01/23 10:02 Labs: Lab Results 01/01/23 01/01/23 01/01/23 Range/Units 10:02 10:32 11:35 WBC 14.9 H (4.8-10.8) X10*3/uL RBC 2.34 L (4.20-5.50) X10*6/uL Hgb 7.7 L (12.0-16.0) g/dl Hct 22.6 L (37.0-47.0) % MCV 96.6 (80.0-98.0) fL MCH 32.9 (27.0-33.0) pg MCHC 34.1 (31.0-35.0) g/dl RDW 17.2 H (11.0-16.0) % Plt Count 212 D (160-400) X10*3/uL MPV 11.5 (9.4-12.3) fL Immature Gran % (Auto) 0.7 H (0.0-0.4) % Neut % (Auto) 71.6 (45-73) % Lymph % (Auto) 10.9 L (20-40) % [place] % (Auto) 14.9 H (2-11) % Eos % (Auto) 1.1 (0-4) % Baso % (Auto) 0.8 (0-2) % Lymph # (Auto) 1.6 (1.2-4.9) X10*3/uL [place] # (Auto) 2.2 H (0.1-1.2) X10*3/uL Eos # (Auto) 0.2 (0.0-0.4) X10*3/uL Baso # (Auto) 0.1 (0.0-0.2) X10*3/uL Abs Immat Gran (auto) 0.11 H (0.00-0.03) X10*3/uL Absolute Neuts (auto) 10.6 H (2.0-8.3) x10*3/uL Absolute Nucleated RBC 0.480 H (0.0-0.012) X10*3/uL Nucleated RBC % (auto) 3.2 H (0.0-0.2) /100WBC Smear Tech's Comments VERIFIED Absolute Retic 0.285 H (0.026-0.095) X10*6/uL Percent Retic 12.2 H (0.5-1.8) % Immature Retic Fraction 17.5 H (3.0-15.9) % Retic Hgb Equivalent 31.2 (30.0-35.0) pg Sodium 142 (135-145) mmol/L Potassium 3.7 (3.3-5.1) mmol/L Chloride 110 H (96-108) mmol/L Carbon Dioxide 20 L (22-29) mmol/L Anion Gap 16 (12-20) BUN 13 (9-16) mg/dL Creatinine 0.83 (0.5-1.4) mg/dL Estim Creat Clear Calc 66.6 Estimated GFR > 60 Random Glucose 106 (60-115) mg/dL Lactic Acid 1.0 (0.5-2.0) mmol/L Calcium 8.9 (8.4-10.2) mg/dL Total Bilirubin 2.2 H (0.0-1.0) mg/dL AST 65 H (5-31) U/L ALT 25 (0-31) U/L Alkaline Phosphatase 226 H (39-117) U/L Total Protein 7.9 (6.5-8.0) g/dL Albumin 3.6 (3.5-5.0) g/dL Influenza Type A (PCR) NEGATIVE (Negative) Influenza Type B (PCR) NEGATIVE (Negative) RSV RNA Qual (PCR) NEGATIVE (Negative) SARS-CoV-2 RNA (RT-PCR) NEGATIVE (Negative) Radiology Impression Discussion of test interpretation with radiology: I have reviewed the radiologist's reading. Radiologist Impression: Pending official read External Record Review External record reviewed: Outpatient record, Prior outpatient labs and Prior outpatient radiology Chronic Conditions Patient?s care impacted by: Other Sickle cell, alcohol use disorder Critical Care Time Critical Care Time Critical Care Time: Yes Total Critical Care Time: 45 Attestation: I personally attest to this time spent taking care of the patient. Discharge Plan Discharge Clinical Impression: Alcohol abuse, Sickle cell crisis, Pneumonia Patient Disposition: Admitted As Inpatient
--- NOTE | 2023-01-01 11:49 | MHC.EDTECH ---
This pct attempted to draw labs but veins are very tiny and patient needed an ultrasound to put an iv in, another tech is going to attempt the lab work. RN Aware
[2023-01-01] MEDS: cefTRIAXone sodium 2 GM in 0.9 % Sodium Chloride 50 ML IV (12:01)
[2023-01-01] MEDS: Acetaminophen 325 MG TABLET 975 MG PO (12:02)
[2023-01-01] MEDS: ondansetron HCL 4 MG/2 ML VIAL IVPUSH (12:37)
--- NOTE | 2023-01-01 13:19 | PHA.MEDREC ---
Pharmacy Consult ? Medication Reconciliation Pharmacy has completed the medication reconciliation. Patient reported medications, reported allopurinol even though fill 12/2021. Reports using gabapentin as needed. Charity Hatch, JatinD
--- NOTE | 2023-01-01 13:21 | P.HPHOSP_ITS ---
History of Present Illness Date of Service: 01/01/23 Chief Complaint: body pain This is a 52 year old female with a PMH of sickle cell anemia who presents the emergency room with a 3 day history of worsening generalized aches and pain, most prononuced in her b/l lower extremities and back. She reports she attempted to take her baseline analgesics, but this was to no avail and hence she presented to the ED. She denies any fevers or chills. She denies any worsening cough or shortness of breath. She denies any chest pain, abdominal pain. In the ED, she has been treated with IV antibiotics and IV analgesics. She reports minimal improvement and hence, will be admitted for further care. Review of Systems 2 Review of Systems: Negative except HPI/interval history. 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 Hypoxia Pneumonia due to 2019 novel coronavirus Pneumonia due to 2019 novel coronavirus Sickle cell anemia UTI (urinary tract infection) GERD (gastroesophageal reflux disease) PTSD (post-traumatic stress disorder) Cocaine abuse Bipolar 1 disorder Sickle cell anemia Family History Other Diabetes Surgical History Hx of cholecystectomy Social History Household Members: None Housing: Apartment Do you presently have visiting nurse or other home services: No Unable to assess alcohol history related to: Unable to respond Alcohol intake: current Alcohol intake frequency: a few times a week Alcohol type: beer and wine Patient Tobacco Use Status: Current everyday Tobacco user Tobacco use type: Cigarette Cigarette Packs Per Day: 5 Cigarettes Per Day: 100.0 Years Smoked: 35 Smoked in Last 30 Days: Yes e-Cigarette/Vaping Use: Never Used Second Hand Smoke Exposure: No Use of substances other than those prescribed or required for medical reasons: Yes Substance Use Type: Crack/Cocaine Substance Use Frequency: Occasionally Last Used Substance: Weeks (ago) Advance Directives: Yes Advance Directives on File: Yes Advance Directives Date on File: 12/15/22 service: No Current occupational status: unemployed and disabled Meds Allergies Allergy/AdvReac Type Severity Reaction Status Date / Time prochlorperazine Allergy Severe ANAPHYLAXIS Verified 05/10/20 01:39 [From COMPAZINE] Active Medications: Current Medications Acetaminophen (Acetaminophen 325 Mg Tablet) 650 mg PO Q6H PRN PRN Reason: Pain, Mild (Pain Scale 1-3) Hydromorphone HCl (Hydromorphone Hcl 1 Mg/Ml Syringe) 0.5 mg IVPUSH Q4H PRN; Protocol PRN Reason: Pain, Severe (Pain Scale 7-10) Sodium Chloride (Ns) 500 mls @ 999 mls/hr IV .Q31M PHILLIP Stop: 01/01/23 13:45 Lactated Ringer's (Lr) 1,000 mls @ 100 mls/hr IVCONT .Q10H [facility] Sodium Chloride (0.9 % Sodium Chloride Flush 3 Ml Syringe) 3 ml IVFLUSH QSHIFT [facility] Home Medications Medication Instructions Recorded Confirmed Last Taken Type albuterol sulfate 90 mcg/actuation 2 puff PO Q6H PRN Shortness Of 06/02/21 01/01/23 Unknown History aerosol inhaler Breath Or Wheezing loratadine 10 mg tablet 1 tab PO DAILY 06/02/21 01/01/23 01/01/23 History oxycodone 10 mg tablet 2 tab PO Q4H PRN Pain (Scale Score 12/15/21 01/01/23 01/01/23 History 4-6) colchicine (gout) 0.6 mg tablet 0.6 mg PO DAILY 12/14/22 01/01/23 01/01/23 History fluticasone propionate 50 1 spray intranasal BID PRN Allergy 12/14/22 01/01/23 Unknown History mcg/actuation nasal Symptoms spray,suspension lorazepam 1 mg tablet 1 mg PO BID anxiety 12/14/22 01/01/23 01/01/23 History allopurinol 100 mg tablet 100 mg PO DAILY 01/01/23 01/01/23 01/01/23 History diphenhydramine HCl 25 mg capsule 25 mg PO TID PRN itch 01/01/23 01/01/23 Unknown History (Banophen) gabapentin 300 mg capsule 300 mg PO TID PRN Pain 01/01/23 01/01/23 Unknown History Physical Exam 2 Vital Signs and Narrative: Vital Signs: Last Vital Signs Temp 98.9 F 01/01/23 11:57 Pulse 95 01/01/23 11:57 Resp 16 01/01/23 11:57 BP 113/70 01/01/23 11:57 Pulse Ox 97 01/01/23 11:57 O2 Del Method Room Air 01/01/23 11:57 Oxygen Flow Rate 2 01/01/23 09:44 BMI result Body Mass Index 19.9 Const: Other: Constitutional - Awake and Alert, appears to be in pain Eyes - PERRLA, EOMI Cardiovascular - S1S2, RRR, No edema Respiratory - Normal lung expansion, Normal respiratory effort, No respiratory distress, CTA bilaterally Gastrointestinal - NT / ND; +BS; No rebound or guarding - No CVA tenderness Extremities - no calf tenderness bilaterally, no swelling Musculoskeletal - Normal inspection, normal ROM Skin - Warm/Dry Neurological - Alert & oriented x3, No focal deficit Psychological - Appropriate affect Results Labs 01/01/23 10:02 01/01/23 10:02 Labs: Laboratory Results - last 24 hr 01/01/23 01/01/23 01/01/23 10:02 10:32 11:35 MCV 96.6 MCH 32.9 MCHC 34.1 RDW 17.2 H Plt Count 212 D MPV 11.5 Immature Gran % (Auto) 0.7 H Neut % (Auto) 71.6 Lymph % (Auto) 10.9 L [place] % (Auto) 14.9 H Eos % (Auto) 1.1 Baso % (Auto) 0.8 Lymph # (Auto) 1.6 [place] # (Auto) 2.2 H Eos # (Auto) 0.2 Baso # (Auto) 0.1 Abs Immat Gran (auto) 0.11 H Absolute Neuts (auto) 10.6 H Absolute Nucleated RBC 0.480 H Nucleated RBC % (auto) 3.2 H Smear Tech's Comments VERIFIED Absolute Retic 0.285 H Percent Retic 12.2 H Immature Retic Fraction 17.5 H Retic Hgb Equivalent 31.2 Anion Gap 16 Estim Creat Clear Calc 66.6 Estimated GFR > 60 Random Glucose 106 Lactic Acid 1.0 Calcium 8.9 Total Bilirubin 2.2 H AST 65 H ALT 25 Alkaline Phosphatase 226 H Total Protein 7.9 Albumin 3.6 Influenza Type A (PCR) NEGATIVE Influenza Type B (PCR) NEGATIVE RSV RNA Qual (PCR) NEGATIVE SARS-CoV-2 RNA (RT-PCR) NEGATIVE Assessment and Plan (1) Sickle cell crisis: Status: Acute Plan 52 yo F with sickle cell anemia presenting to the ED with pain, likely secondary to acute vaso-occulsive crisis. She will be admitted for further management. 1. Sickle cell anemia with acute vaso-occlusive pain crisis On 180 MME/daily at baseline Will start with IV dilaudid 1mg IV q3h and titrate as needed LR @ 100 cc/hr Given a dose of Rocehpin in the ED; CXR official read pending, but do not appreciate any large infiltrates nor is she endorsing any respiratory symptoms; hence, hold off on antibiotics; UA pending H/H above transfusion threshold 2. Hyperbilirubinemia stable, monitor 3. COPD/Asthma continue inhalers 4. History of DVT previously on Eliquis, but does not appear to be on it any longer; will clarify with the patient Full Code DVT pptx Patient with significant pain secondary to #1 above equiring multiple doses of IV opiates and further requiring aggressive IV hydration, therefore expected to need at least 2 midnights in the hospital for treatment. Hence, will be admitted as inpatient. Quality Stroke Does the patient have a stroke diagnosis?: No VTE Prior VTE?: No VTE Risk Level:: Medical - moderate - high VTE Device Contraindication: Treatment Not Indicated VTE Drug Contraindication: N/A - Med Ordered
[2023-01-01] MEDS: diphenhydrAMINE HCL 50 MG/ML VIAL 25 MG IVPUSH (13:59)
--- NOTE | 2023-01-01 16:16 | PC.NURSE ---
holding fluids at this time as pt iv access not flushing. md pace aware and is asking ed attending for new iv.
[2023-01-01] MEDS: allopurinoL 100 MG TABLET PO (17:11)
[2023-01-01] MEDS: diphenhydrAMINE HCL 25 MG CAPSULE PO (17:11)
[2023-01-01] MEDS: 0.9 % Sodium Chloride 500 ML 999 ML IV (17:12)
--- NOTE | 2023-01-01 17:12 | PC.NURSE ---
iv access re-gained by NICO Gonzalez in ED via ultrasound.
[2023-01-01] MEDS: HYDROmorphone HCl 0.5 MG/0.5 ML SYRINGE 1 MG IVPUSH ×2 (17:14→20:00)
[2023-01-01] MEDS: 0.9 % Sodium Chloride Flush 3 ML SYRINGE IVFLUSH (17:15)
[2023-01-01] MEDS: Lactated Ringers 1,000 ML 100 ML IVCONT (17:37)
--- NOTE | 2023-01-01 18:25 | PC.NURSE ---
pt report given to elise
--- NOTE | 2023-01-01 18:30 | PC.NURSE ---
awaiting cholcrys-requested by rn prior
--- NOTE | 2023-01-01 18:35 | PC.NURSE ---
no transporter on- tech to bring up when available- pt awaiting tech
--- NOTE | 2023-01-01 18:38 | PC.NURSE ---
called pharmacy again for missing cholcryis. brought down to [facility].
[2023-01-01] MEDS: LORazepam 1 MG TABLET PO (20:01)
[2023-01-02] MEDS: HYDROmorphone HCl 0.5 MG/0.5 ML SYRINGE 1 MG IVPUSH ×3 (00:40→09:59)
[2023-01-02] MEDS: 0.9 % Sodium Chloride Flush 3 ML SYRINGE IVFLUSH (00:40)
[2023-01-02] MEDS: Lactated Ringers 1,000 ML 100 ML IVCONT ×3 (00:41→19:55)
[2023-01-02] MEDS: diphenhydrAMINE HCL 25 MG CAPSULE PO (03:57)
[2023-01-02 04:00] VITALS: BP 117/58; PULSE 100; RESP 18; TEMP 37.6; O2SAT 92
--- NOTE | 2023-01-02 05:02 | PC.NURSE ---
Pt arrived from the ED to 384 at shift change , pt is alert and oriented, with O2 at 3L/min via NC, anxious and demanding some pain meds, c/o chest tightness and generalized pain8/10, just got pain med in the ED and is around 45 mins early for her prn, DR. Pena okayed to give Dilaudid early, prn Dilaudid 1 mg IV given, pt has been sleeping on and off, also pt complied to FLu vacc, given on the right deltoid.
[2023-01-02 07:45] VITALS: BP 108/59; PULSE 99; RESP 22; TEMP 36.6; O2SAT 92
[2023-01-02] MEDS: allopurinoL 100 MG TABLET PO (07:47)
[2023-01-02] MEDS: Loratadine 10 MG TABLET PO (07:47)
[2023-01-02] MEDS: LORazepam 1 MG TABLET PO ×2 (07:48→19:55)
[2023-01-02] MEDS: Colchicine 0.6 MG TABLET PO (07:48)
[2023-01-02] MEDS: Celecoxib 200 MG CAPSULE PO (09:00)
--- NOTE | 2023-01-02 12:42 | PC.NURSE ---
Pt very restless when sleeping and non compliant with keeping nasal cannula in place. O2 Sat can bee anywhere between 88-92% Dr Melgar is aware.
--- NOTE | 2023-01-02 12:43 | P.PNIM_ITS ---
Subjective Subjective Date of Service: 01/02/23 Interval History: Complaining of right elbow pain, denies injury or fall, denies fever, chills, also complaining of generalized body ache, denies cough or sputum production, denies diarrhea denies urinary symptoms of frequency or urgency. Review of Systems All other system reviewed and negative Physical Exam 2 Vital Signs: Vital Signs: Last Vital Signs Temp 97.9 F 01/02/23 07:45 Pulse 99 01/02/23 07:45 Resp 22 H 01/02/23 07:45 BP 108/59 L 01/02/23 07:45 Pulse Ox 92 01/02/23 07:45 O2 Del Method Nasal Cannula 01/02/23 07:45 O2 Flow Rate 2 01/02/23 07:45 Oxygen Flow Rate 2 01/01/23 09:44 BMI result Body Mass Index 21.2 Const: Other: General? resting in bed , in no distress Neck supple no JVD. CVS? regular rate rhythm, Respiratory lungs?, coarse breath sound at bases Gastrointestinal abdomen soft, non tender, bowel sounds audible Extremities no edema. Right elbow tenderness and warmth to palpation Neuro nonfocal Skin no rash Objective Data Active Medications Acetaminophen (Acetaminophen 325 Mg Tablet) 650 mg PO Q6H PRN PRN Reason: Pain, Mild (Pain Scale 1-3) Albuterol/Ipratropium (Albuterol/Iprat 2.5/0.5mg 3 Ml Ampul.Neb) 3 ml INHALE Q6H PRN PRN Reason: shortness of breath Allopurinol (Allopurinol 100 Mg Tablet) 100 mg PO DAILY [facility] Last Admin: 01/02/23 07:47 Dose: 100 mg Documented By: JOSE R Colchicine (Colchicine 0.6 Mg Tablet) 0.6 mg PO DAILY [facility] Last Admin: 01/02/23 07:48 Dose: 0.6 mg Documented By: JOSE R Diphenhydramine HCl (Diphenhydramine Hcl 25 Mg Capsule) 25 mg PO TID PRN PRN Reason: itch Last Admin: 01/02/23 03:57 Dose: 25 mg Documented By: BARBARA Fluticasone Propionate (Fluticasone Propionate Nasal 16 Gm [place]) 1 spray NOSTRIL-B BID PRN PRN Reason: Allergy Symptoms Hydromorphone HCl (Hydromorphone Hcl 0.5 Mg/0.5 Ml Syringe) 1 mg IVPUSH Q4H PRN; Protocol PRN Reason: Pain, Severe (Pain Scale 7-10) Lactated Ringer's (Lr) 1,000 mls @ 100 mls/hr IVCONT .Q10H [facility] Last Admin: 01/02/23 10:19 Dose: Not Given Documented By: JOSE R Non-Admin Reason: IV Running Loratadine (Loratadine 10 Mg Tablet) 10 mg PO DAILY [facility] Last Admin: 01/02/23 07:47 Dose: 10 mg Documented By: JOSE R Lorazepam (Lorazepam 1 Mg Tablet) 1 mg PO BID [facility] Last Admin: 01/02/23 07:48 Dose: 1 mg Documented By: JOSE R Sodium Chloride (0.9 % Sodium Chloride Flush 3 Ml Syringe) 3 ml IVFLUSH QSHIFT [facility] Last Admin: 01/02/23 07:49 Dose: Not Given Documented By: JOSE R Non-Admin Reason: No Access Labs 01/01/23 10:02 01/01/23 10:02 Labs: Laboratory Results - last 24 hr 01/01/23 12:04 Blood Type O Positive Antibody Screen POSITIVE Antibody Identification Inconclusive YASIR, Polyspecific NEGATIVE Positive YASIR Work-up TNP Crossmatch (AHG) See Detail Assessment and Plan (1) Sickle cell crisis: Status: Acute Plan 52 yo F with sickle cell anemia presenting to the ED with pain, likely secondary to acute vaso-occulsive crisis and admitted for further management. 1. Sickle cell anemia with acute vaso-occlusive pain crisis Complaining of right elbow and generalized pain On 180 MME/daily at baseline Noted to be somnolent in the afternoon therefore will change IV dilaudid 1mg IV to q4h LR @ 100 cc/hr will DC after this bag Given a dose of Rocehpin in the ED; CXR showed no infiltrate, denies urinary symptoms UA not collected, no further antibiotics warranted at this time H/H above transfusion threshold 2. Hyperbilirubinemia stable, monitor 3. COPD/mild intermittent Asthma continue inhalers, no acute exacerbation 4. History of DVT previously on Eliquis, but not taking it any longer. 5. Right elbow pain question rt. olecranon bursitis/hx of gout , will give Celebrex and follow clinical course. Full Code DVT pptx Patient with significant pain secondary to #1 above requiring multiple doses of IV opiates and also requiring aggressive IV hydration, therefore will need continued inpatient hospitalization Quality Stroke Does the patient have a stroke diagnosis?: No VTE Prior VTE?: No VTE Risk Level:: Medical - moderate - high VTE Device Contraindication: Treatment Not Indicated VTE Drug Contraindication: N/A - Med Ordered
--- NOTE | 2023-01-02 12:54 | MHC.CM.PN ---
PT REPORTS SHE LIVES ALONE AND HAS DAILY NETWORK INTERN SERVICES PT REPORTS SHE HAS BEEN TRYING TO GET VNA SERVICES WELL SHE HAS OXYGEN VIA [facility] AND NO OTHER DME PT HAS A HCP ON FILE PCP: DR MIXON AT [facility] IMM DELIVERED DCP HOME RESUME NETWORK INTER[employer], ? [facility] PT EXPECTS TO HAVE A RIDE
[2023-01-02 15:26] VITALS: BP 108/63; PULSE 87; RESP 18; TEMP 36.4; O2SAT 90
[2023-01-02 16:34] VITALS: PULSE 68; RESP 20; O2SAT 96
[2023-01-02] MEDS: HYDROmorphone HCl 1 MG/ML SYRINGE IVPUSH (16:45)
[2023-01-02 20:00] VITALS: BP 95/57; PULSE 73; RESP 18; TEMP 36.8; O2SAT 95
--- NOTE | 2023-01-03 00:56 | PC.NURSE ---
Acquired care at 2330. Pt is sleeping in bed. NO signs of distress. call hernández with in reach. hourly rounding done.
[2023-01-03] MEDS: HYDROmorphone HCl 1 MG/ML SYRINGE IVPUSH ×6 (01:40→22:58)
[2023-01-03 01:50] VITALS: BP 118/66; PULSE 76; RESP 18; TEMP 36.4; O2SAT 96
[2023-01-03] MEDS: 0.9 % Sodium Chloride Flush 3 ML SYRINGE IVFLUSH ×2 (07:22→22:21)
[2023-01-03 07:27] VITALS: BP 115/61; PULSE 71; RESP 17; TEMP 36.8; O2SAT 99
[2023-01-03] MEDS: LORazepam 1 MG TABLET PO ×2 (08:33→22:30)
[2023-01-03] MEDS: Loratadine 10 MG TABLET PO (08:33)
[2023-01-03] MEDS: allopurinoL 100 MG TABLET PO (08:33)
[2023-01-03] MEDS: Colchicine 0.6 MG TABLET PO (08:33)
[2023-01-03] MEDS: diphenhydrAMINE HCL 25 MG CAPSULE PO ×2 (12:07→22:30)
--- NOTE | 2023-01-03 12:59 | P.PNIM_ITS ---
Subjective Subjective Date of Service: 01/03/23 Interval History: Complaining of generalized pain and itching, no fevers, right elbow pain has improved, complaining of dry skin itching no chills, tolerating diet with no nausea, no vomiting ,no abdominal pain, no headache, no dizziness, no other acute complaints. Review of Systems All other system reviewed and negative Physical Exam 2 Vital Signs: Vital Signs: Last Vital Signs Temp 98.2 F 01/03/23 07:27 Pulse 71 01/03/23 07:27 Resp 17 01/03/23 07:27 BP 115/61 01/03/23 07:27 Pulse Ox 99 01/03/23 07:27 O2 Del Method Nasal Cannula 01/03/23 07:27 O2 Flow Rate 2.0 01/03/23 07:27 Oxygen Flow Rate 2 01/01/23 09:44 BMI result Body Mass Index 21.2 Const: Other: General? resting in bed , in no distress Neck supple no JVD. CVS? regular rate rhythm, Respiratory lungs?, coarse breath sound at bases Gastrointestinal abdomen soft, non tender, bowel sounds audible Extremities no edema. Right elbow tenderness and warmth resolved, normal range of motion normal examination Neuro nonfocal Skin no rash Objective Data Active Medications Acetaminophen (Acetaminophen 325 Mg Tablet) 650 mg PO Q6H PRN PRN Reason: Pain, Mild (Pain Scale 1-3) Albuterol/Ipratropium (Albuterol/Iprat 2.5/0.5mg 3 Ml Ampul.Neb) 3 ml INHALE Q6H PRN PRN Reason: shortness of breath Allopurinol (Allopurinol 100 Mg Tablet) 100 mg PO DAILY [facility] Last Admin: 01/03/23 08:33 Dose: 100 mg Documented By: BRYSON Colchicine (Colchicine 0.6 Mg Tablet) 0.6 mg PO DAILY [facility] Last Admin: 01/03/23 08:33 Dose: 0.6 mg Documented By: BRYSON Diphenhydramine HCl (Diphenhydramine Hcl 25 Mg Capsule) 25 mg PO TID PRN PRN Reason: itch Last Admin: 01/03/23 12:07 Dose: 25 mg Documented By: BRYSON Fluticasone Propionate (Fluticasone Propionate Nasal 16 Gm [place]) 1 spray NOSTRIL-B BID PRN PRN Reason: Allergy Symptoms Hydromorphone HCl (Hydromorphone Hcl 1 Mg/Ml Syringe) 1 mg IVPUSH Q4H PRN; Protocol PRN Reason: Pain, Severe (Pain Scale 7-10) Last Admin: 01/03/23 12:08 Dose: 1 mg Documented By: BRYSON Loratadine (Loratadine 10 Mg Tablet) 10 mg PO DAILY [facility] Last Admin: 01/03/23 08:33 Dose: 10 mg Documented By: BRYSON Lorazepam (Lorazepam 1 Mg Tablet) 1 mg PO BID [facility] Last Admin: 01/03/23 08:33 Dose: 1 mg Documented By: BRYSON Sodium Chloride (0.9 % Sodium Chloride Flush 3 Ml Syringe) 3 ml IVFLUSH QSHIFT [facility] Last Admin: 01/03/23 07:22 Dose: 3 ml Documented By: BRYSON Labs 01/01/23 10:02 01/01/23 10:02 Microbiology Microbiology Results: Microbiology 01/01/23 12:04 Blood Culture - Preliminary Blood - Venous No growth after 24 hours. 01/01/23 12:04 Blood Culture - Preliminary Blood - Venous No growth after 24 hours. Assessment and Plan (1) Sickle cell crisis: Status: Acute Plan 52 yo F with sickle cell anemia presenting to the ED with pain, likely secondary to acute vaso-occulsive crisis and admitted for further management. 1. Sickle cell anemia with acute vaso-occlusive pain crisis Complaining of generalized pain On 180 MME/daily at baseline More awake alert and comfortable looking today will continue IV dilaudid 1mg IV to q4h DC IV fluid Given a dose of Rocehpin in the ED; CXR showed no infiltrate, denies urinary symptoms UA not collected, no further antibiotics warranted at this time H/H above transfusion threshold Added stool softeners Will encourage out of bed and ambulation 2. Hyperbilirubinemia stable, monitor 3. COPD/mild intermittent Asthma continue inhalers, no acute exacerbation 4. History of DVT previously on Eliquis, but not taking it any longer. 5. Right elbow pain resolved Full Code DVT pptx Patient with significant pain secondary to #1 above requiring multiple doses of IV opiates therefore will need continued inpatient hospitalization Quality Stroke Does the patient have a stroke diagnosis?: No VTE Prior VTE?: No VTE Risk Level:: Medical - moderate - high VTE Device Contraindication: Treatment Not Indicated VTE Drug Contraindication: N/A - Med Ordered
[2023-01-03] MEDS: polyethylene glycoL 3350 17 GM POWD.PACK PO (13:18)
[2023-01-03 16:00] VITALS: BP 99/55; PULSE 97; RESP 16; TEMP 36.6; O2SAT 97
[2023-01-03 20:00] VITALS: BP 101/56; PULSE 84; RESP 18; TEMP 37; O2SAT 99
[2023-01-03 23:59] VITALS: BP 104/58; PULSE 71; RESP 18; TEMP 36.6; O2SAT 95
[2023-01-04 01:08] VITALS: BP 137/73; PULSE 91
--- NOTE | 2023-01-04 07:15 | PC.NURSE ---
Patient had two IV sites that were found to be not patent at 0330 when she asked for pain medication. at 0330, IV in right upper arm had cannula out of vein, possible pulled on bedding, but still secured to arm with tape and gauze wrap. IV left wrist infiltrated. I attempted new side right hand without success. ICU resource RN (Pamela) was on floor and despite her stated need for IV pain medication, the patient refused to allow her to attempt to start IV. Pamela stated that she was notifying Dana the nursing cook room supervisor. Patient uncooperative, refusing to allow me to remove old IV sites as of 709 this morning.
--- NOTE | 2023-01-04 07:18 | PC.NURSE ---
Primary RN asked this telegraphic typewriter installer if a new IV can be placed. Offered patient to henry to place a new IV line becuase she states her current ones are bothering her. When offered patient refused a new IV.
[2023-01-04 07:38] VITALS: BP 117/68; PULSE 77; RESP 18; TEMP 36.8; O2SAT 96
[2023-01-04] MEDS: LORazepam 1 MG TABLET PO ×2 (09:11→20:48)
[2023-01-04] MEDS: polyethylene glycoL 3350 17 GM POWD.PACK PO (09:12)
[2023-01-04] MEDS: allopurinoL 100 MG TABLET PO (09:12)
[2023-01-04] MEDS: Colchicine 0.6 MG TABLET PO (09:12)
[2023-01-04] MEDS: Loratadine 10 MG TABLET PO (09:12)
[2023-01-04] MEDS: HYDROmorphone HCl 2 MG TABLET 1 MG PO ×2 (09:22→20:49)
[2023-01-04] MEDS: diphenhydrAMINE HCL 25 MG CAPSULE PO ×2 (09:22→20:52)
--- NOTE | 2023-01-04 11:22 | P.PNIM_ITS ---
Subjective Subjective Date of Service: 01/04/23 Interval History: Complaining of pain, IV infiltrated patient has 3 IVs none of them are functioning, since patient has no nausea tolerating diet and taking all other meds by mouth Will transition to by mouth medication, no fevers, no chills, no lightheadedness ,or dizziness tolerating diet no nausea, no vomiting, no diarrhea no complain of elbow discomfort. Review of Systems All other system reviewed and negative Physical Exam 2 Vital Signs: Vital Signs: Last Vital Signs Temp 98.2 F 01/04/23 07:38 Pulse 77 01/04/23 07:38 Resp 18 01/04/23 07:38 BP 117/68 01/04/23 07:38 Pulse Ox 95 01/03/23 23:59 O2 Del Method Nasal Cannula 01/03/23 23:59 O2 Flow Rate 2 01/03/23 23:59 Oxygen Flow Rate 2 01/01/23 09:44 BMI result Body Mass Index 21.2 Const: Other: General? resting in bed , in no distress Neck supple no JVD. CVS? regular rate rhythm, Respiratory lungs?, coarse breath sound at bases Gastrointestinal abdomen soft, non tender, bowel sounds audible Extremities no edema. Right elbow tenderness and warmth resolved, normal range of motion normal examination Neuro nonfocal Skin no rash Objective Data Active Medications Acetaminophen (Acetaminophen 325 Mg Tablet) 650 mg PO Q6H PRN PRN Reason: Pain, Mild (Pain Scale 1-3) Albuterol/Ipratropium (Albuterol/Iprat 2.5/0.5mg 3 Ml Ampul.Neb) 3 ml INHALE Q6H PRN PRN Reason: shortness of breath Allopurinol (Allopurinol 100 Mg Tablet) 100 mg PO DAILY [facility] Last Admin: 01/04/23 09:12 Dose: 100 mg Documented By: BRYSON Colchicine (Colchicine 0.6 Mg Tablet) 0.6 mg PO DAILY [facility] Last Admin: 01/04/23 09:12 Dose: 0.6 mg Documented By: BRYSON Diphenhydramine HCl (Diphenhydramine Hcl 25 Mg Capsule) 25 mg PO TID PRN PRN Reason: itch Last Admin: 01/04/23 09:22 Dose: 25 mg Documented By: BRYSON Docusate Sodium (Docusate Sodium 100 Mg Capsule) 200 mg PO DAILY [facility] Last Admin: 01/04/23 09:17 Dose: Not Given Documented By: BRYSON Non-Admin Reason: Patient Refused Fluticasone Propionate (Fluticasone Propionate Nasal 16 Gm [place]) 1 spray NOSTRIL-B BID PRN PRN Reason: Allergy Symptoms Hydromorphone HCl (Hydromorphone Hcl 2 Mg Tablet) 1 mg PO Q3H PRN PRN Reason: Pain, Severe (Pain Scale 7-10) Last Admin: 01/04/23 09:22 Dose: 1 mg Documented By: BRYSON Loratadine (Loratadine 10 Mg Tablet) 10 mg PO DAILY [facility] Last Admin: 01/04/23 09:12 Dose: 10 mg Documented By: BRYSON Lorazepam (Lorazepam 1 Mg Tablet) 1 mg PO BID [facility] Last Admin: 01/04/23 09:11 Dose: 1 mg Documented By: BRYSON Polyethylene Glycol (Polyethylene Glycol 3350 17 Gm Powd.Pack) 17 gm PO DAILY [facility] Last Admin: 01/04/23 09:12 Dose: 17 gm Documented By: BRYSON Sodium Chloride (0.9 % Sodium Chloride Flush 3 Ml Syringe) 3 ml IVFLUSH QSHIFT [facility]PLAC[facility] Last Admin: 01/04/23 09:07 Dose: Not Given Documented By: BRYSON Non-Admin Reason: No Access Labs 01/01/23 10:02 01/01/23 10:02 Microbiology Microbiology Results: Microbiology 01/01/23 12:04 Blood Culture - Preliminary Blood - Venous No growth after 48 hours. 01/01/23 12:04 Blood Culture - Preliminary Blood - Venous No growth after 48 hours. Assessment and Plan (1) Sickle cell crisis: Status: Acute Plan 52 yo F with sickle cell anemia presenting to the ED with pain, likely secondary to acute vaso-occulsive crisis and admitted for further management. 1. Sickle cell anemia with acute vaso-occlusive pain crisis Complaining of generalized pain On 180 MME/daily at baseline More awake alert and comfortable looking today will dc IV dilaudid and transition to by mouth Dilaudid 1 mg acute 3 hours DC IV fluid Given a dose of Rocehpin in the ED; CXR showed no infiltrate, denies urinary symptoms UA not collected, no further antibiotics warranted at this time H/H above transfusion threshold cont. stool softeners Will encourage out of bed and ambulation 2. Hyperbilirubinemia stable, monitor 3. COPD/mild intermittent Asthma continue inhalers, no acute exacerbation 4. History of DVT previously on Eliquis, but not taking it any longer. 5. Right elbow pain resolved Full Code DVT pptx Patient with significant pain secondary to #1 above requiring multiple dosages of narcotics therefore will need continued inpatient hospitalization . Quality Stroke Does the patient have a stroke diagnosis?: No VTE Prior VTE?: No VTE Risk Level:: Medical - moderate - high VTE Device Contraindication: Treatment Not Indicated VTE Drug Contraindication: N/A - Med Ordered
[2023-01-04 15:47] VITALS: BP 101/60; PULSE 74; RESP 18; TEMP 36.5; O2SAT 93
[2023-01-04 23:53] VITALS: BP 102/56; PULSE 81; RESP 18; TEMP 36.5; O2SAT 96
[2023-01-05] MEDS: HYDROmorphone HCl 2 MG TABLET 1 MG PO ×3 (01:06→07:32)
[2023-01-05 07:20] VITALS: BP 104/57; PULSE 69; RESP 16; TEMP 36.8; O2SAT 100
[2023-01-05] MEDS: Docusate Sodium 100 MG CAPSULE 200 MG PO (07:31)
[2023-01-05] MEDS: LORazepam 1 MG TABLET PO (07:31)
[2023-01-05] MEDS: allopurinoL 100 MG TABLET PO (07:32)
[2023-01-05] MEDS: Colchicine 0.6 MG TABLET PO (07:32)
[2023-01-05] MEDS: Loratadine 10 MG TABLET PO (07:32)
[2023-01-05] MEDS: polyethylene glycoL 3350 17 GM POWD.PACK PO (07:37)
--- NOTE | 2023-01-05 10:50 | P.DS_ITS ---
DS: Providers Provider Date of Service: 01/05/23 Date of admission: 01/01/23 13:16 Primary care physician: Lesia Cuevas MD DS: Diagnosis Discharge Diagnosis (1) Sickle cell crisis: Status: Acute DS: Summary Hospital Course Hospital Course: History of presenting illness: Date of Service: 01/01/23 Chief Complaint: body pain This is a 52 year old female with a PMH of sickle cell anemia who presents the emergency room with a 3 day history of worsening generalized aches and pain, most prononuced in her b/l lower extremities and back. She reports she attempted to take her baseline analgesics, but this was to no avail and hence she presented to the ED. She denies any fevers or chills. She denies any worsening cough or shortness of breath. She denies any chest pain, abdominal pain. In the ED, she has been treated with IV antibiotics and IV analgesics. She rep orts minimal improvement and hence, will be admitted for further care. Hospital course: 52 yo F with sickle cell anemia presenting to the ED with pain, likely secondary to acute vaso-occulsive crisis and admitted for further management. 1. Sickle cell anemia with acute vaso-occlusive pain crisis , admitted to medical floor treated with IV Dilaudid, no evidence of infection found chest x- ray showed no infiltrate patient had no urinary symptoms of urgency or frequency hematocrit remains at baseline, patient is tolerating diet no nausea no vomiting no abdominal pain, since pain has improved she is being discharged and recommend to continue all home medications as before, noted to have ch. hyperbilirubinemia,stable and likely due to ch hemolysis. 2. COPD/mild intermittent Asthma noted to have no acute exacerbation recommend to continue home inhalers. continue inhalers, no acute exacerbation 3. History of gout continue colchicine and allopurinol no acute exacerbation noted left elbow pain that improved with Celebrex. Time Attestation Discharge coordination time: Greater than 30 minutes Quality: Safe Use of Opioids Does Pt have an Active Cancer Diagnosis on the Problem List?: No Quality: Stroke Does the patient have a stroke diagnosis?: No Physical Exam Vital Signs: Vital Signs: Last Vital Signs Temp 98.3 F 01/05/23 07:20 Pulse 69 01/05/23 07:20 Resp 16 01/05/23 07:20 BP 104/57 L 01/05/23 07:20 Pulse Ox 100 01/05/23 07:20 O2 Del Method Nasal Cannula 01/05/23 07:20 O2 Flow Rate 2 01/05/23 07:20 Oxygen Flow Rate 2 01/01/23 09:44 BMI result Body Mass Index 21.2 Const: Other: General? resting in bed , in no distress Neck supple no JVD. CVS? regular rate rhythm, Respiratory lungs?, coarse breath sound at bases Gastrointestinal abdomen soft, non tender, bowel sounds audible Extremities no edema. Right elbow tenderness and warmth resolved, normal range of motion normal examination Neuro nonfocal Skin no rash DS: Data Data Completed and Pending Completed studies during hospitalization [Text1]: Procedures Detoxification Services for Substance Abuse Treatment (12/05/19) Insertion of Infusion Device into Right Subclavian Vein, Percutaneous Approach (06/26/20) Insertion of Infusion Device into Superior Vena Cava, Percutaneous Approach (06/13) Transfusion of Nonautologous Red Blood Cells into Peripheral Vein, Percutaneous Approach (12/14/22) Labs on day of discharge: Preliminary micro results at discharge 01/01/23 12:04 Blood Culture - Preliminary Blood - Venous No growth after 48 hours. 01/01/23 12:04 Blood Culture - Preliminary Blood - Venous No growth after 48 hours. Discharge Plan Discharge Anticipated Discharge Date/Time: 01/05/23 09:59 Patient Disposition: Home, Self-Care Discharge Diagnosis: Sickle cell anemia with of acute vaso-occlusive crisis Referrals: Lesia Cuevas MD [Primary Care Provider] - 1 Week Discharge Medications: Continued oxycodone 10 mg tablet 2 tab PO Q4H PRN (Reason: Pain (Scale Score 4-6)) albuterol sulfate 90 mcg/actuation HFA aerosol inhaler 2 puff PO Q6H PRN (Reason: Shortness Of Breath Or Wheezing) loratadine 10 mg tablet 1 tab PO DAILY lorazepam 1 mg tablet 1 mg PO BID colchicine (gout) 0.6 mg tablet 0.6 mg PO DAILY fluticasone propionate 50 mcg/actuation spray,suspension 1 spray intranasal BID PRN (Reason: Allergy Symptoms) allopurinol 100 mg tablet 100 mg PO DAILY gabapentin 300 mg capsule 300 mg PO TID PRN (Reason: Pain) diphenhydramine HCl [Banophen] 25 mg capsule 25 mg PO TID PRN (Reason: itch) Discharge Orders: Discharge Order (Routine); Ordered 01/05/23 Ordered By: Guzman Melgar Diet: Advance to usual diet Activity on Discharge: As tolerated Stand Alone Forms: Patient Portal Discharge page Care Plan Goals: Recovery from anemia and sickle cell crisis Health Concerns: Chronic anemia Chronic pain Plan of Treatment: Outpatient follow-up with primary care physician and revenue cycle administrator call for appointment Assessment: As above
--- NOTE | 2023-01-05 10:53 | MHC.CM.PN ---
PT WILL DC HOME TODAY WITH [employer]. CM WAITING FOR PT TO DETERMINE IF SHE HAS TRANSPORT
[2023-01-05] MEDS: Celecoxib 100 MG CAPSULE PO (11:51)
== END 2023-01-05 14:11 | disposition home or self-care (01) | DRG 812 ==
LOC: HO.ED 13:18 → HO.EDOVER 13:24 → HO.S3 17:27
PROVIDERS: Admitting Provider Family Medicine; Emergency Provider Student in an Organized Health Care Education/Training Program; PCP Student in an Organized Health Care Education/Training Program; Visit Provider Hospitalist
DX: D57.00 Hb-SS disease with crisis, unspecified (principal); F17.210 Nicotine dependence, cigarettes, uncomplicated; F10.10 Alcohol abuse, uncomplicated; J44.9 Chronic obstructive pulmonary disease, unspecified; E80.6 Other disorders of bilirubin metabolism; Z71.6 Tobacco abuse counseling; J45.20 Mild intermittent asthma, uncomplicated; M10.9 Gout, unspecified; Z23 Encounter for immunization; Z20.822 Contact with and (suspected) exposure to COVID-19; Z79.899 Other long term (current) drug therapy
CPT/HCPCS: 0241U; 36415; 71045; 80053; 83605; 85025; 85045; 86850; 86870; 86880; 86900; 86901; 86902; 86920; 86922; 87040; 90686; 99285; J0696; J1170; J1200; J2270; J2405; J7120

== ENCOUNTER → 2023-01-01 13:16 | Outpatient (BNV) | payer MEDICARE, MEDICAID, SELFPAY | PROVIDERS: Admitting Provider Family Medicine; Emergency Provider Student in an Organized Health Care Education/Training Program; Visit Provider Family Medicine | DX: D57.00 Hb-SS disease with crisis, unspecified (principal) | CPT/HCPCS: 99223; 99232; 99233; 99239 ==

== ENCOUNTER 2023-07-11 02:26 | Inpatient (IN) | payer OTHER, SELFPAY ==
--- NOTE | 2023-07-11 | ECG_ITS ---
Test Reason : dyspnea Blood Pressure : / mmHG Vent. Rate : 076 BPM Atrial Rate : 076 BPM P-R Int : 138 ms QRS Dur : 088 ms QT Int : 398 ms P-R-T Axes : 052 022 042 degrees QTc Int : 447 ms Normal sinus rhythm Normal ECG When compared with ECG of 14-DEC-2022 05:28, No significant change was found Referred By: Generic ED Physician Electronically Signed By:LIANNA NELSON MD
--- NOTE | ~2023-07-11 | CT_ITS ---
EXAMINATION: CT ANGIOGRAM OF THE CHEST WITH AND WITHOUT CONTRAST (CT PULMONARY ANGIOGRAM FOR PE) CLINICAL INFORMATION: Reason for Exam sob + dimer COMPARISON: CT angiogram chest from 06/03/2021 TECHNIQUE: Prior to contrast administration, noncontrast localization images were obtained. Subsequently, multidetector volumetric imaging was performed from the thoracic inlet to below the diaphragms following the administration of 80 mL Omnipaque 350 intravenous contrast. No contrast reaction reported Sagittal, coronal, and MIP oblique sagittal reformatted images were obtained on the CT workstation, uploaded to PACS, and reviewed. This CT examination was performed using dose optimization techniques as appropriate, variously including the following: *Automated exposure control *Adjustment of mA and/or kV according to patient size (this includes techniques or standardized protocols for targeted exams where dose is matched to indication/reason for exam; i.e. extremities or head) *Use of iterative reconstruction technique Total exam dose-length product 149 mGy-cm FINDINGS: QUALITY OF STUDY/CONTRAST BOLUS: Satisfactory. PULMONARY ARTERIES: No pulmonary emboli. Main pulmonary artery is enlarged suggesting elements of pulmonary arterial hypertension. THORACIC AORTA: No aneurysm. Atherosclerotic calcifications aortic arch. LUNG/PLEURA: Emphysematous and fibrotic changes of the bilateral lung menendez with subpleural cystic changes, reticular nodular opacities and regions of peripheral honeycombing. Patient respiratory motion artifact limits evaluation for nodules. Central airways are patent. No pneumothorax. No large pleural effusion. MEDIASTINUM: Heart is mildly enlarged. No pericardial effusion. No coronary a few mildly prominent though nonenlarged mediastinal lymph nodes are noted measuring up to 8 mm in short axis. Visualized portions of the thyroid are unremarkable. No evidence of septal bowing or right heart strain. CHEST WALL/AXILLA: No axillary or internal mammary lymphadenopathy. OSSEOUS STRUCTURES: No acute or suspicious osseous abnormality. UPPER ABDOMEN: Unremarkable. No reflux of contrast into the hepatic veins to suggest elevated right heart pressures. CT/CT angio chest PE protocol IMPRESSION: 1. No pulmonary emboli. 2. Main pulmonary artery is enlarged suggesting elements of pulmonary arterial hypertension. 3. Emphysematous and fibrotic changes of the bilateral lung menendez with subpleural cystic changes, reticular nodular opacities and regions of peripheral honeycombing. Patient respiratory motion artifact limits evaluation for nodules.
--- NOTE | ~2023-07-11 | XR_ITS ---
EXAMINATION: XR CHEST CLINICAL INFORMATION: Cough. COMPARISON: 01/01/2023. TECHNIQUE: Frontal view of the chest was obtained. FINDINGS: The patient is mildly rotated. The cardiomediastinal silhouette is stable. There is lower lung field increased markings similar to previous. There is no focal lung consolidation or pleural effusion. The bony structures and soft tissues are unremarkable. XR/XR chest 1V IMPRESSION: No acute cardiopulmonary disease. Lower lung field increased markings similar to previous.
[2023-07-11 02:52] VITALS: BP 124/72; PULSE 85; O2SAT 96
[2023-07-11 02:56] VITALS: BP 112/75; PULSE 89; RESP 18; TEMP 37.5; O2SAT 100; BMI 20.1
--- OUTSIDE RECORDS SUMMARY | 2023-07-11 03:23 | XMS_ITS | Continuity of Care Document ---
Author Organization [facility] ter Address [address] [place] [id number]- Care Team Providers Care Nuclear Station Operator Name Role Phone Lesia Cuevas MD Primary Care Physician [place] [facility] [place]): 03/26/23 - 03/26/[address] [address]- Discharge Disposition: A-D/C Home Attending Physician: Suzan ARCHIBALD(Hem/Onc), Jordon Lainez Admitting Physician: Suzan ARCHIBALD(Hem/Onc), Jordon Lainez Referring Physician: Suzan ARCHIBALD(Hem/Onc), Jordon Lainez Allergies, Adverse Reactions, Alerts Substance Reaction Severity [...] Comment: normal saline diluent added lot number [id number] expires 07/23/2022 2Result Comment: Afluria Medications allopurinol 100 mg oral tablet 100 mg, 1, tablet, By Mouth, Daily, # 90 tablet, Refills 11, Tot. Refills 11, Maintenance, 03/05/2411:43:00 EST, Route to Pharmacy Electronically, [facility]/pharmacy #[id number], Partial fill upon patient request if the prescription is for a schedule II opioid d... Start Date: 03/05/23 Status: Ordered clindamycin 1% topical lotion 1 application, Topically, 2 times a day, apply to L armpit lesions/bumps twice per day until healed, # 60 mL, 0 Refills, Maintenance, 10/24/21 15:35:00 EDT, Lotion, [facility]/pharmacy #[id number], Partial fill upon patient request if the prescription is for a amado... Start Date: 10/24/21 Status: Ordered colchicine 0.6 mg oral tablet See Instructions, take two tablets at once, then take one tablet 1 hour later. The NEXT DAY start taking one tablet twice daily until GOUT PAIN resolves., # 12 tablet, Refills 0, Tot. Refills 0, Maintenance, 03/05/23 12:48:00 EST, Instructions Replace... Start Date: 03/05/23 Status: Ordered Daily Lazara oral tablet 1 tablet, By Mouth, Daily Start Date: 07/03/21 Status: Ordered Dilaudid Inj 3 mg, Injection, Subcutaneous Injection, Once, STAT, 03/26/23 15:29:00 EST, Stop date 03/26/23 15:29:00 EST Start Date: 03/26/23 Stop Date: 03/26/23 Status: Completed Dilaudid Inj 6 mg, Injection, IV Push Slowly, Every 2 hours, PRN for Pain , Severe, Routine, 03/26/23 7:25:00 EST Start Date: 03/26/23 Stop Date: 03/27/23 Status: Discontinued diphenhydrAMINE 25 mg oral capsule 1 capsule, By Mouth, 3 times a day, PRN NEEDED FOR ITCHING, # 90 capsule, 2 Refills, Maintenance, 05/14/22 15:26:00 EDT, [id number], 163, cm, 05/12/22 16:01:00 EDT, Height, 61.5, [...] each, 6 Refills, Maintenance, 07/08/22 17:26:00 EDT, [place], [id number], Partial fill upon patient request [...] capsule, Refills 0, Tot. Refills 0, Maintenance, 03/05/23 12:43:00 EST, Route to Pharmacy Electronically, [facility]/pharmacy #[id number], Partial fill upon patient request if the prescription is for a schedule II... Start Date: 03/05/23 Status: Ordered hydroxyurea 500 mg oral capsule 1 capsule = 500 mg, By Mouth, 2 times a day Start Date: 07/03/21 Status: Ordered hydrOXYzine hydrochloride 50 mg oral tablet 1 tablet = 50 mg, By Mouth, 3 times a day, PRN as needed for anxiety, # 90 tablet, 5 Refills, Maintenance, 10/24/21 12:29:00 EDT, Tablet, [facility]/pharmacy #[id number], [...] 04/11/22 15:56:00 EST, Route to Pharmacy Electronically, [facility]/pharmacy #[id number], 163, cm, 04/11/22 15:32:00 EST, Height, 60.8, kg, 02/19/22 19:05:00 EST, Dry Weight Start Date: 04/11/22 Status: Ordered LORazepam 1 mg oral tablet 1 tablet = 1 mg, By Mouth, 2 times a day, for 7 days, # 14 tablet, 0 Refills, Acute 04/02/23 16:23:00 EST, 03/26/23 16:23:00 EST, Tablet, [id number], Partial fill upon patient request if the prescription is for a schedule II opioid drug., 163,... Start Date: 03/26/23 Stop Date: 04/02/23 Status: Ordered MiraLax oral powder for reconstitution [...] FOR SMOKING CESSATION, # 200 gum, 0 Refills,[id number], 160, cm, 08/01/21 21:18:00 EDT, Height, 72.9, kg, 08/01/21 21:18:00 EDT, Dry Weight Start Date: 08/05/21 Status: Ordered omeprazole 20 mg oral enteric coated capsule 1 capsule = 20 mg, By Mouth, Daily, # 90 capsule, 10 Refills, Maintenance, 10/24/21 12:29:00 EDT, [facility]/pharmacy #[id number], Partial fill upon patient request if the prescription is for a schedule II opioiddrug., 160, cm, 10/24/21 11:46:00 EDT, Height, 72.9... Start Date: 10/24/21 Status: Ordered oxyCODONE 10 mg oral tablet 2 tablet = 20 mg, By Mouth, Every 4 hours, PRN as needed for pain, # 84 tablet, 0 Refills, Maintenance, 03/25/23 9:27:00 EST, Tablet, [facility]/pharmacy #[id number], Partial fill upon patient request if the prescription is for a schedule II opioid drug., 163, cm,... Start Date: 03/25/23 Stop Date: 04/01/23 Status: Ordered oxyCODONE 5 mg oral tablet 20 mg, 4, tablet, By Mouth, Every 4 hours, PRN, # 168 tablet, Refills 0, Tot. Refills 0, Maintenance, Pain , Severe, 03/11/23 14:59:00 EST, Route to Pharmacy Electronically, [facility]/pharmacy #[id number], Scripfor 5 mg tabs sent as 10 mg tabs backordered. Part... Start Date: 03/11/23 Stop Date: 03/18/23 Status: Ordered ProAir HFA 90 mcg/inh inhalation aerosol 2 puffs, Inhalation, Every 6 hours Start Date: 07/03/21 Status: Ordered pyridoxine 50 mg oral tablet 50 mg, 1, tablet, By Mouth, Daily, # 30 tablet, Refills 0, Tot. Refills 0, Maintenance, 05/12/22 15:17:00 EDT, Route to Pharmacy Electronically, [facility]/pharmacy #[id number], Partial fill upon patient request if the prescription is for a schedule II opioid drug... Start Date: 05/12/22 Status: Ordered QUEtiapine 25 mg oral tablet 1, tablet, By Mouth, 2 times a day, PRN, # 90 tablet, Refills 0, Tot. Refills 0, Maintenance, NEEDED FOR AGITATION, 01/01/22 10:03:00 EST, Route to Pharmacy Electronically, [facility]/pharmacy #[id number], 160, cm, 10/24/21 11:46:00 EDT, Height, 72.9, kg, 08/01... Start Date: 01/01/22 Status: Ordered sodium zirconium cyclosilicate 10 g oral powder for reconstitution = 5 Gm, By Mouth, Every Thursday and , # 30 each, 0 Refills, Maintenance, 02/24/22 10:38:00 EST, [facility]/pharmacy #[id number], Partial [...] 1 2 3 4 Height 163 cm (03/26/23 9:09 AM) 163 cm (03/26/23 7:55 AM) Weight 59.09 kg (03/26/23 7:55 AM) Oxygen Saturation [94-100 %] 93 % *L* (03/26/23 7:47 AM) Pulse Rate [55-90 bpm] 110 bpm *H* (03/26/23 7:47 AM) Blood Pressure [90-138/55-84 mm Hg] 94/55mm Hg (03/26/23 9:09 AM) 88/50mm Hg *L* (03/26/23 7:47 AM) Respiratory Rate [16-30 br/min] 18 br/min (03/26/23 4:23 PM) 18 br/min (03/26/23 12:02 PM) 18 br/min (03/26/23 9:58 AM) 18 br/min (03/26/23 9:58 AM) Temperature [96.8-100.4 DegF] 98.0 DegF (03/26/23 7:47 AM) Liters per Minute 4 L/min (03/26/23 7:47 AM) Mode of Delivery (Oxygen) Nasal cannula (03/26/23 7:47 AM) Blood pressure sites Arm, right (03/26/23 9:09 AM) Arm, right (03/26/23 7:47 AM) Temperature Route Oral (03/26/23 7:47 AM) Dry Weight 59.09 kg (03/26/23 7:55 AM) Social History Social History Type Response Smoking Status Former smoker, quit more than 30 days ago entered on: 12/26/20 Sex Hospital Progress note * [place] Ennis RN: PERFORM, SIGN, VERIFY, MODIFY, SIGN, MODIFY, SIGN Event Display: Progress Note Hospital Authored Date: [id number] Patient: JOSE GALARZA Age: 53 years Sex: Female : 1970 Associated Diagnoses: None Author: [place] Ennis RN Findings Narrative/Incidental 0700 Pt arrived to [facility] for SCC treatment. A&Ox4. Home Medication review and Medical Daystay form completed. IV started by IV team using ultrasound. States that her pain is a 9/10 and is in her bilateral legs. SCC treatment started at 927. Pt only wanted 3mg of Dilaudid IV and refusing 6mg. Please see APR. 115 Dr Suzan pantoja re: Pt being extremely itchy. Ordered benadryl 50mg po q4h and given at 1300. [address]6 Dr[address] Suzan gómezed advising him that Pt. is thrashing around in the bed, keeps pulling off her oxygen and is getting verbally combative. Vitals stable 109/62 P-105 Resp 18 and O2 Sat 94% on 4L. 1433 Dr. Steingar Lockwood cortexed and advised that her IV infiltrated and that she is refusing new IV be placed by IV Team. Pt. can satate her name, but falls back to sleep and is not following commands. Dr Mares asked to come and see Pt. 1450 Dr. Mares in to see Pt. and per nursing report, once Pt. knew Dr. Mares was here, Pt. aroused and was awake and had full conversation with him. Dr. Mares gave new orders to give Pt 3mg dilaudid sc and 50mg benadryl po, please see APR. 1729 Discharged from unit via wheelchair by ex-Fiance to [facility] for transportation home by him. . Patient Care team information Care Team Personnel Name: [place] Zuleta Position: [facility] Onco RN Member Role: Primary Care Nurse Name: Marisa Rosario RN Position: [facility] RN Member Role: Primary Care Nurse Name: Carmen Hdez RN Position: [facility] ED RN W/OE and Tasks Member Role: Primary Care Nurse Name: Jordon Cruz RN Position: [facility] ED RN W/OE and Tasks Member Role: Primary Care Nurse Name: Daisy Rushing RN Position: [facility] RN Member Role: Primary Care Nurse Name: Ana Faustin RN Position: [facility] RN Member Role: Primary Care Nurse Name: Corinna Fajardo RN Position: [facility] AMB Nurse Member Role: Primary Care Nurse Name: Ira Apodaca RN Position: [facility] ED RN W/OE and Tasks Member Role: Primary Care Nurse Name: Idania More RN Position: [facility] RN Member Role: Primary Care Nurse Name: Paola Rinaldi RN Position: [facility] RN Supv Member Role: Primary Care Nurse Name: Lian Joy RN Position: [facility] RN Member Role: Primary Care Nurse Name: Nikkie Sommers RN Position: [facility] RN Supv Member Role: Primary Care Nurse Name: Jasmine Ortega NP Position: [facility] Associate Professional Member Role: Primary Care Nurse Address: Address: [address] [place] [address]- Name: Rivka Cook RN Position: [facility] RN Member Role: Primary Care Nurse Name: Daisy Brower RN Position: [facility] RN Member Role: Primary Care Nurse Name: Kimberly Skinner RN Position: [facility] RN Member Role: Primary Care Nurse Name: Abhishek Johnosn RN Position: [facility] RN Member Role: Primary Care Nurse Name: Lesia Cuevas MD Position: [facility] Resident Member Role: PCP Address: Address: [address] [place] [id number] Name: Rene Pham RN Position: [facility] Outreach Member Role: Primary Care Nurse Name: Barbara Rae RN Position: [facility] AMB Nurse Member Role: Primary Care Nurse Name: Ina Renee RN Position: [facility] RN Member Role: Primary Care Nurse Name: Yesica Delong RN Position: [facility] ED RN W/OE and Tasks Member Role: Primary Care Nurse Name: Paula Earl RN Position: [facility] RN Member Role: Primary Care Nurse Name: Susan Miller RN Position: [facility] SN RN Member Role: Primary Care Nurse Name: Pao Key Position: [facility] RN Member Role: Primary Care Nurse Name: Maris Trevino RN Position: [facility] ED RN W/OE and Tasks Member Role: Primary Care Nurse Name: Steph Gordillo RN Position: [facility] OB RN Member Role: Primary Care Nurse Name: Rene Ramos DO Position: [facility] Renal MD Member Role: Lifetime Consulting Physician Address: Address: [address] [place], [place] [address] [place] [address]- Name: Ryder Matthews Position: [facility] RN Member Role: Primary Care Nurse Name: Mary Correia RN Position: [facility] ED RN W/OE and Tasks Member Role: Primary Care Nurse Name: Tierra Razo RN Position: [facility] RN Member Role: Primary Care Nurse Name: Librado Saucedo RN Position: [facility] ED RN W/OE and Tasks Member Role: Primary Care Nurse Name: Laron Davenport III, RN Position: [facility] RN Member Role: Primary Care Nurse Name: Danya Govea RN Position: [facility] RN Member Role: Primary Care Nurse Name: Idania Millard RN Position: [facility] RN Member Role: Primary Care Nurse Name: Blake Grant RN Position: [facility] SN RN Member Role: Primary Care Nurse Name: Mariella Ojeda RN Position: [facility] RN Member Role: Primary Care Nurse Name: Cari Khan RN Position: [facility] RN Member Role: Primary Care Nurse Name: Dequan Elliott RN Position: [facility] SN RN Member Role: Primary Care Nurse Name: Esmer Rankin RN Position: [facility] AMB Nurse Member Role: Primary Care Nurse Name: Suzanna Timmons RN Position: [facility] SN RN Member Role: Primary Care Nurse Name: Juno Torres RN Position: [facility] Onco RN Member Role: Primary Care Nurse Name: Yojana Dior RN Position: [facility] RN Member Role: Primary Care Nurse Name: Corby Lester RN Position: [facility] RN Member Role: Primary Care Nurse Name: Farideh Balderas RN Position: [facility] [employer] Internet Sales Manager Member Role: Primary Care Nurse Name: Roxana Ann RN Position: [facility] Onco RN Member Role: Primary Care Nurse Name: Vanessa Shelton RN Position: [facility] RN Member Role: Primary Care Nurse Name: Derick Calixto RN Position: [facility] RN Member Role: Primary Care Nurse Name: Fariba Bradley RN Position: [facility] RN Member Role: Primary Care Nurse Name: Fariba Ornelas RN Position: [facility] ED RN W/OE and Tasks Member Role: Primary Care Nurse Name: Steph Tierney RN Position: [facility] RN Member Role: Primary Care Nurse Name: Portia Baires RN Position: [facility] SN RN Member Role: Primary Care Nurse Name: Adamaris Ahmadi RN Position: [facility] ED RN W/OE and Tasks Member Role: Primary Care Nurse Name: Leny Shanks RN Position: [facility] RN Supv Member Role: Primary Care Nurse Name: Steph Smith RN Position: [facility] RN Member Role: Primary Care Nurse Name: Casandra Robbins RN Position: [facility] RN Supv Member Role: Primary Care Nurse Name: Maris Crowell RN Position: [facility] RN Member Role: Primary Care Nurse Name: Coni Romero LPN Position: [facility] RN Member Role: Primary Care Nurse Name: Abigail Rabago RN Position: [facility] RN Member Role: Primary Care Nurse Name: Halina Burger RN Position: [facility] Onco RN Member Role: Primary Care Nurse Name: Linda Lockwood RN Position: [facility] Hospital [employer] Internet Sales Manager Member Role: Primary Care Nurse Name: Dedra Chatman RN, I Position: [facility] RN Member Role: Primary Care Nurse Care Team Related Persons Name: EVONNE ALANIZUS Address: home [address] [place] [address] Name: JUNO MENA Address: home [address] [place] [address] Name: JOVITA GALARZA Address: home [address] [place] [address] Name: KARL GALARZA Address: home [address] [place] [address] Name: EZEKIEL GALARZA Address: home [address] [place] [address] Name: MICHAEL BARRETT Address: home [address] [place] [address] Name: SHAD TUBBS Address: home [address] [place] [id number]
--- OUTSIDE RECORDS SUMMARY | 2023-07-11 03:23 | XMS_ITS | Continuity of Care Document ---
Author Organization [facility] Address [address] [place] [address]- Care Team Providers Care Guide Cruise Name Role Phone Lesia Cuevas MD Primary Care Physician Encounter [facility] Date(s): 12/11/22 - 01/10/[address] [id number]- Allergies, Adverse Reactions, Alerts Substance Reaction Severity [...] Comment: normal saline diluent added lot number [id number] expires 07/23/2022 2Result Comment: Afluria Medications allopurinol 100 mg oral tablet 100 mg, 1, tablet, By Mouth, Daily, # 90 tablet, Refills 1, Tot. Refills 1, Maintenance, 09/01/22 13:18:00 EDT, Route to Pharmacy Electronically, [facility]/pharmacy #[id number], Partial fill upon patient requestif the prescription is for a schedule II opioid lynn... Start Date: 10/24/21 Status: Ordered clindamycin 1% topical lotion 1 application, Topically, 2 times a day, apply to L armpit lesions/bumps twice per day until healed, # 60 mL, 0 Refills, Maintenance, 10/24/21 15:35:00 EDT, Lotion, [facility]/pharmacy #[id number], Partial fill upon patient request if the prescription is for a amado... Start Date: 10/24/21 Status: Ordered Daily Lazara oral tablet 1 tablet, By Mouth, Daily Start Date: 07/03/21 Status: Ordered diphenhydrAMINE 25 mg oral capsule 1 capsule, By Mouth, 3 times a day, PRN NEEDED FOR ITCHING, # 90 capsule, 2 Refills, Maintenance, 05/14/22 15:26:00 EDT, [id number], 163, cm, 05/12/22 16:01:00 EDT, Height, 61.5, kg, 05/10/2316:29:00 EDT, Dry Weight Start Date: 05/14/22 Status: Ordered Estrace Vaginal Cream 0.1 mg/g = 1 Gm, Vaginally, Daily at bedtime, # 90 Gm, 3 Refills, Maintenance, 12/06/21 14:57:00 EDT, [facility]/pharmacy #[id number], Partial fill upon patient request if the prescription is for a schedule II opioid drug., 160, cm, 12/06/21 14:22:00 EDT, Height, 72.9, kg,... Start Date: 12/06/21 Status: Ordered Eucerin Plus topical lotion 1 application, Topically, 2 times a day, PRN for dry skin, # 180 mL, 0 Refills, Maintenance, 03/12/22 16:28:00 EST, Lotion, [facility]/pharmacy #[id number], Partial fill upon patient request if the prescription is for a schedule II opioid drug., 1 application Topi... Start Date: 03/12/22 Status: Ordered Flonase 50 mcg/inh nasal spray 1 sprays, Nares, Both, 2 times a day, # 1 each, 6 Refills, Maintenance, 07/08/22 17:26:00 EDT, [place], [id number], Partial fill upon patient request [...] 04/11/22 15:56:00 EST, Route to Pharmacy Electronically, [facility]/pharmacy #[id number], 163, cm, 04/11/22 15:32:00 EST, Height, 60.8, kg, 02/19/22 19:05:00 EST, Dry Weight Start Date: 04/11/22 Status: Ordered LORazepam 1 mg oral tablet 1 tablet = 1 mg, By Mouth, 2 times a day, for 7 days, # 14 tablet, 0 Refills, Acute 01/15/23 16:23:00 EST, 01/08/23 16:23:00 EST, Tablet, [facility]/pharmacy #1026, Partial fill upon patient request if the prescription is for a schedule II opioid drug., 163,... Start Date: 01/08/23 Stop Date: 01/15/23 Status: Ordered MiraLax oral powder for reconstitution = 17 Gm, By Mouth, Daily, dissolve in water before taking, # 255 Gm, 1 Refills, Maintenance, 04/11/22 21:05:00 EST, REC Powder, [facility]/pharmacy #1130, Partial fill upon patient request if the prescription is for a schedule II opioid drug., 17 Gm By Mouth... Start Date: 04/11/22 Status: Ordered nicotine 4 mg oral transmucosal gum See Instructions, CHEW 1 PIECE EVERY 2 HOURS NEEDED FOR SMOKING CESSATION, # 200 gum, 0 Refills,[id number], 160, cm, 08/01/21 21:18:00 EDT, Height, 72.9, kg, 08/01/21 21:18:00 EDT, Dry Weight Start Date: 08/05/21 Status: Ordered omeprazole 20 mg oral enteric coated capsule 1 capsule = 20 mg, By Mouth, Daily, # 90 capsule, 10 Refills, Maintenance, 10/24/21 12:29:00 EDT, [facility]/pharmacy #1130, Partial fill upon patient request if the prescription is for a schedule II opioiddrug., 160, cm, 10/24/21 11:46:00 EDT, Height, 72.9... Start Date: 10/24/21 Status: Ordered oxyCODONE 10 mg oral tablet 2 tablet = 20 mg, By Mouth, Every 4 hours, PRN as needed for pain, # 84 tablet, 0 Refills, Maintenance, 01/08/23 16:22:00 EST, Tablet, [facility]/pharmacy #1026, Partial fill upon patient request if the prescription is for a schedule II opioid drug., 163, cm... Start Date: 01/08/23 Stop Date: 01/15/23 Status: Ordered oxyCODONE 5 mg oral tablet 20 mg, 4, tablet, By Mouth, Every 4 hours, PRN, # 168 tablet, Refills 0, Tot. Refills 0, Maintenance, Pain , Severe, 07/18/22 12:19:00 EDT, Route to Pharmacy Electronically, [facility]/pharmacy #[id number], Scripfor 5 mg tabs sent [...] 05/12/22 15:17:00 EDT, Route to Pharmacy Electronically, [facility]/pharmacy #[id number], Partial fill upon patient request if the prescription is for a schedule II opioid drug... Start Date: 05/12/22 Status: Ordered QUEtiapine 25 mg oral tablet 1, tablet, By Mouth, 2 times a day, PRN, # 90 tablet, Refills 0, Tot. Refills 0, Maintenance, NEEDED FOR AGITATION, 01/01/22 10:03:00 EST, Route to Pharmacy Electronically, [facility]/pharmacy #[id number], 160, cm, 10/24/21 11:46:00 EDT, Height, 72.9, kg, 08/01... Start Date: 01/01/22 Status: Ordered sodium zirconium cyclosilicate 10 g oral powder for reconstitution = 5 Gm, By Mouth, Every Thursday and , # 30 each, 0 Refills, Maintenance, 02/24/22 10:38:00 EST, [facility]/pharmacy #[id number], Partial fill upon patient request [...] Care Team Personnel Name: Indiana Zuleta Position: [facility] Onco RN Member Role: Primary Care Nurse Name: Naila Hinds RN Position: [facility] RN Member Role: Primary Care Nurse Name: Marisa Rosario RN Position: [facility] RN Member Role: Primary Care Nurse Name: Carmen Hdez RN Position: [facility] ED RN W/OE and Tasks Member Role: Primary Care Nurse Name: Jordon Cruz RN Position: [facility] ED RN W/OE and Tasks Member Role: Primary Care Nurse Name: Daisy Rushing RN Position: [facility] RN Member Role: Primary Care Nurse Name: Ana Faustin RN Position: [facility] RN Member Role: Primary Care Nurse Name: Corinna Fajardo RN Position: [facility] AMB Nurse Member Role: Primary Care Nurse Name: Ira Apodaca RN Position: [facility] ED RN W/OE and Tasks Member Role: Primary Care Nurse Name: Idania More RN Position: [facility] RN Member Role: Primary Care Nurse Name: Paola Rinaldi RN Position: [facility] RN Supv Member Role: Primary Care Nurse Name: Lian Joy RN Position: [facility] RN Member Role: Primary Care Nurse Name: Nikkie Sommers RN Position: [facility] RN Supv Member Role: Primary Care Nurse Name: Jasmine Ortega NP Position: [facility] Associate Professional Member Role: Primary Care Nurse Address: Address: [address] [place] [address]- [place] Name: Rivka Cook RN Position: [facility] RN Member Role: Primary Care Nurse Name: Daisy Brower RN Position: [facility] RN Member Role: Primary Care Nurse Name: Kimberly Skinner RN Position: [facility] RN Member Role: Primary Care Nurse Name: Abhishek Johnson RN Position: [facility] RN Member Role: Primary Care Nurse Name: Lesia Cuevas MD Position: [facility] Resident Member Role: PCP Address: Address: [address] [place] [id number]- Name: Barbara Rae RN Position: [facility] AMB Nurse Member Role: Primary Care Nurse Name: Ina Renee RN Position: [facility] RN Member Role: Primary Care Nurse Name: Yesica Delong RN Position: [facility] ED RN W/OE and Tasks Member Role: Primary Care Nurse Name: Paula Earl RN Position: [facility] RN Member Role: Primary Care Nurse Name: Susan Miller RN Position: [facility] ED RN W/OE and Tasks Member Role: Primary Care Nurse Name: Pao Key Position: [facility] RN Member Role: Primary Care Nurse Name: Maris Trevino RN Position: [facility] ED RN W/OE and Tasks Member Role: Primary Care Nurse Name: Steph Gordillo RN Position: [facility] OB RN Member Role: Primary Care Nurse Name: Rene Ramos DO Position: [facility] Renal MD Member Role: Lifetime Consulting Physician Address: Address: [address] [place], [place] [address] [place] [address]- Name: Ryder Matthews Position: [facility] RN Member Role: Primary Care Nurse Name: Mary Correia RN Position: [facility] ED RN W/OE and Tasks Member Role: Primary Care Nurse Name: Tierra Razo RN Position: [facility] RN Member Role: Primary Care Nurse Name: Librado Saucedo RN Position: [facility] RN Member Role: Primary Care Nurse Name: Laron Davenport III, RN Position: [facility] RN Member Role: Primary Care Nurse Name: Danya Govea RN Position: [facility] RN Member Role: Primary Care Nurse Name: Idania Millard RN Position: [facility] RN Member Role: Primary Care Nurse Name: Blake Garnt RN Position: [facility] SN RN Member Role: Primary Care Nurse Name: Mariella Ojeda RN Position: [facility] RN Member Role: Primary Care Nurse Name: Yaquelin Dawkins RN Position: [facility] RN Member Role: Primary Care Nurse Name: Cari Khan RN Position: [facility] RN Member Role: Primary Care Nurse Name: Dequan Elliott RN Position: [facility] SN RN Member Role: Primary Care Nurse Name: Esmer Rankin RN Position: [facility] AMB Nurse Member Role: Primary Care Nurse Name: Suzanna Timmons RN Position: [facility] SN RN Member Role: Primary Care Nurse Name: Juno Torres RN Position: [facility] Onco RN Member Role: Primary Care Nurse Name: Yojana Dior RN Position: [facility] RN Member Role: Primary Care Nurse Name: Farideh Balderas RN Position: [facility] Senior Environmental Scientist Member Role: Primary Care Nurse Name: Roxana Ann RN Position: [facility] RN Member Role: Primary Care Nurse Name: Vanessa Shelton RN Position: [facility] RN Member Role: Primary Care Nurse Name: Derick Calixto RN Position: [facility] RN Member Role: Primary Care Nurse Name: Fariba Bradley RN Position: [facility] RN Member Role: Primary Care Nurse Name: Fariba Ornelas RN Position: [facility] ED RN W/OE and Tasks Member Role: Primary Care Nurse Name: Steph Tierney RN Position: [facility] RN Member Role: Primary Care Nurse Name: Portia Baires RN Position: [facility] SN RN Member Role: Primary Care Nurse Name: Leny Shanks RN Position: [facility] RN Supv Member Role: Primary Care Nurse Name: Steph Smith RN Position: [facility] RN Member Role: Primary Care Nurse Name: Casandra Robbins RN Position: [facility] RN Supv Member Role: Primary Care Nurse Name: Maris Crowell RN Position: [facility] RN Member Role: Primary Care Nurse Name: Coni Romero LPN Position: [facility] RN Member Role: Primary Care Nurse Name: Abigail Rabago RN Position: [facility] RN Member Role: Primary Care Nurse Name: Halina Burger RN Position: [facility] Onco RN Member Role: Primary Care Nurse Name: Linda Lockwood RN Position: [facility] Senior Environmental Scientist Member Role: Primary Care Nurse Name: Dedra Chatman RN, I Position: [facility] RN Member Role: Primary Care Nurse Name: David Oquendo RN Position: [facility] RN Member Role: Primary Care Nurse Care Team Related Persons Name: JACKIE ALANIZ Address: [address] [place] [address] Name: JUNO MENA Address: [address] [place] [address] Name: JOVITA GALARZA Address: home [address] [place] [address] Name: KARL GALARZA Address: home [address] [place] [address] Name: EZEKIEL GALARZA Address: home [address] [place] [address] Name: MICHAEL BARRETT Address: home [address] [place] [address] Name: SHAD TUBBS Address: home [address] [place] [id number]
--- OUTSIDE RECORDS SUMMARY | 2023-07-11 03:24 | XMS_ITS | Continuity of Care Document ---
Author Organization [facility] Address [address] [place] [address]- Care Team Providers Care Director Multimedia Name Role Phone Lesia Cuevas MD Primary Care Physician Encounter [facility] Date(s): 01/01/23 - 02/04/[address] [id number]- Attending Physician: Not on Staff, Attending MD [...] Comment: normal saline diluent added lot number [id number] expires 07/23/2022 2Result Comment: Afluria Medications allopurinol 100 mg oral tablet 100 mg, 1, tablet, By Mouth, Daily, # 90 tablet, Refills 1, Tot. Refills 1, Maintenance, 10/24/21 13:18:00 EDT, Route to Pharmacy Electronically, [facility]/pharmacy #[id number], Partial fill upon patient requestif [...] capsule, 2 Refills, Maintenance, 05/14/22 15:26:00 EDT, [id number], 163, cm, 05/12/22 16:01:00 EDT, Height, 61.5, kg, 05/10/2316:29:00 EDT, Dry Weight Start Date: 05/14/22 Status: Ordered Estrace Vaginal Cream 0.1 mg/g = 1 Gm, Vaginally, Daily at bedtime, # 90 Gm, 3 Refills, Maintenance, 12/06/21 14:57:00 EDT, [facility]/pharmacy #[id number], Partial fill upon patient request if the prescription is for a schedule II opioid drug., 160, cm, 12/06/21 14:22:00 EDT, Height, 72.9, kg,... Start Date: 12/06/21 Status: Ordered Eucerin Plus topical lotion 1 application, Topically, 2 times a day, PRN for dry skin, # 180 mL, 0 Refills, Maintenance, 03/12/22 16:28:00 EST, Lotion, [facility]/pharmacy #[id number], Partial fill upon patient request if the prescription is for a schedule II opioid drug., 1 application Topi... Start Date: 03/12/22 Status: Ordered Flonase 50 mcg/inh nasal spray 1 sprays, Nares, Both, 2 times a day, # 1 each, 6 Refills, Maintenance, 07/08/22 17:26:00 EDT, [place], [facility]/pharmacy #[id number], Partial fill [...] 04/11/22 15:56:00 EST, Route to Pharmacy Electronically, [facility]/pharmacy #[id number], 163, cm, 04/11/22 15:32:00 EST, Height, 60.8, kg, 02/19/22 19:05:00 EST, Dry Weight Start Date: 04/11/22 Status: Ordered LORazepam 1 mg oral tablet 1 tablet = 1 mg, By Mouth, 2 times a day, for 7 days, # 14 tablet, 0 Refills, Acute 02/12/23 16:23:00 EST, 02/05/23 16:23:00 EST, Tablet, [facility]/pharmacy #[id number], Partial fill upon patient request if the prescription is for a schedule II opioid drug., 163,... Start Date: 02/05/23 Stop Date: 02/12/23 Status: Ordered LORazepam 1 mg oral tablet 1 tablet = 1 mg, By Mouth, 2 times a day, for 7 days, # 14 tablet, 0 Refills, Acute 02/05/23 16:23:00 EST, 01/29/23 16:23:00 EST, Tablet, [facility]/pharmacy #1026, Partial fill upon patient request if the prescription is for a schedule II opioid drug., 163,... Start Date: 01/29/23 Stop Date: 02/05/23 Status: Ordered MiraLax oral powder for reconstitution = 17 Gm, By Mouth, Daily, dissolve in water before taking, # 255 Gm, 1 Refills, Maintenance, 04/11/22 21:05:00 EST, REC Powder, [facility]/pharmacy #1130, Partial fill upon patient request if the prescription is for a schedule II opioid drug., 17 Gm By Mouth... Start Date: 04/11/22 Status: Ordered nicotine 4 mg oral transmucosal gum See Instructions, CHEW 1 PIECE EVERY 2 HOURS NEEDED FOR SMOKING CESSATION, # 200 gum, 0 Refills,[id number], 160, cm, 08/01/21 21:18:00 EDT, Height, 72.9, [...] pain, # 84 tablet, 0 Refills, Maintenance, 02/05/23 16:22:00 EST, Tablet, [facility]/pharmacy #1026, Partial fill upon patient request if the prescription is for a schedule II opioid drug., 163, cm... Start Date: 02/05/23 Stop Date: 02/12/23 Status: Ordered oxyCODONE 10 mg oral tablet 2 tablet = 20 mg, By Mouth, Every 4 hours, PRN as needed for pain, for 7 days, # 84 tablet, 0 Refills, Hard Stop 02/05/23 16:22:00 EST, 01/29/23 16:22:00 EST, Tablet, [facility]/pharmacy #1026, Partial fillupon patient request if the prescription is for a s... Start Date: 01/29/23 Stop Date: 02/05/23 Status: Ordered oxyCODONE 5 mg oral tablet 20 mg, 4, tablet, By Mouth, Every 4 hours, PRN, # 168 tablet, Refills 0, Tot. Refills 0, Maintenance, Pain , Severe, 07/18/22 12:19:00 EDT, Route to Pharmacy Electronically, [id number], Scripfor 5 mg tabs sent as [...] 01/01/22 10:03:00 EST, Route to Pharmacy Electronically, [facility]/pharmacy #[id number], 160, cm, 10/24/21 11:46:00 EDT, Height, 72.9, kg, 08/01... Start Date: 01/01/22 Status: Ordered sodium zirconium cyclosilicate 10 g oral powder for reconstitution = 5 Gm, By Mouth, Every Thursday and , # 30 each, 0 Refills, Maintenance, 02/24/22 10:38:00 EST, [facility]/pharmacy #1130, Partial fill [...] Zule[place] Position: [facility] Onco RN Member Role: Primary Care Nurse Name: Naila Hinds RN Position: S RN Member Role: Primary Care Nurse Name: Marisa Rosario RN Position: S RN Member Role: Primary Care Nurse Name: Carmen Hdez RN Position: [facility] ED RN W/OE and Tasks Member Role: Primary Care Nurse Name: Jordon Cruz RN Position: [facility] ED RN W/OE and Tasks Member Role: Primary Care Nurse Name: Daisy Rushing RN Position: [facility] RN Member Role: Primary Care Nurse Name: Ana Faustin RN Position: [facility] RN Member Role: Primary Care Nurse Name: Corinna Fajardo RN Position: [facility] AMB Nurse Member Role: Primary Care Nurse Name: Ira Apodaca RN Position: [facility] ED RN W/OE and Tasks Member Role: Primary Care Nurse Name: Idania More RN Position: [facility] RN Member Role: Primary Care Nurse Name: Paola Rinaldi RN Position: [facility] RN Supv Member Role: Primary Care Nurse Name: Lian Joy RN Position: [facility] RN Member Role: Primary Care Nurse Name: Nikkie Sommers RN Position: [facility] RN Supv Member Role: Primary Care Nurse Name: Jasmine Ortega NP Position: [facility] Associate Professional Member Role: Primary Care Nurse Address: Address: [address] [place] [id number] Name: Rivka Cook RN Position: [facility] RN Member Role: Primary Care Nurse Name: Daisy Brower RN Position: [facility] RN Member Role: Primary Care Nurse Name: Kimberly Skinner RN Position: [facility] RN Member Role: Primary Care Nurse Name: Abhishek Johnson RN Position: [facility] RN Member Role: Primary Care Nurse Name: Lesia Cuevas MD Position: [facility] Resident Member Role: PCP Address: Address: [address] [place] [id number]- Name: Barbara Rae RN Position: [facility] AMB Nurse Member Role: Primary Care Nurse Name: Ina Renee RN Position: [facility] RN Member Role: Primary Care Nurse Name: Yesica Delong RN Position: [facility] ED RN W/OE and Tasks Member Role: Primary Care Nurse Name: Paula Earl RN Position: [facility] RN Member Role: Primary Care Nurse Name: Susan Miller RN Position: [facility] SN RN Member Role: Primary Care Nurse Name: Pao Key Position: [facility] RN Member Role: Primary Care Nurse Name: Maris Trevino RN Position: [facility] ED RN W/OE and Tasks Member Role: Primary Care Nurse Name: Steph Gordillo RN Position: [facility] OB RN Member Role: Primary Care Nurse Name: Rene Ramos DO Position: [facility] Renal MD Member Role: Lifetime Consulting Physician Address: Address: [address] [place] [address] [address] [facility] [place] [place] [address] Name: Ryder Matthews Position: [facility] RN Member Role: Primary Care Nurse Name: Mary Correia RN Position: [facility] ED RN W/OE and Tasks Member Role: Primary Care Nurse Name: Tierra Razo RN Position: [facility] RN Member Role: Primary Care Nurse Name: Librado Saucedo RN Position: [facility] ED RN W/OE and Tasks Member Role: Primary Care Nurse Name: Laron Davenport III, RN Position: [facility] RN Member Role: Primary Care Nurse Name: Danya Govea RN Position: [facility] RN Member Role: Primary Care Nurse Name: Idania Millard RN Position: [facility] RN Member Role: Primary Care Nurse Name: Blake Grant RN Position: [facility] SN RN Member Role: Primary Care Nurse Name: Mariella Ojeda RN Position: [facility] RN Member Role: Primary Care Nurse Name: Yaquelin Dawkins NP Position: [facility] PCO Associate Professional Member Role: Primary Care Nurse Name: Cari Khan RN Position: [facility] RN Member Role: Primary Care Nurse Name: Dequan Elliott RN Position: [facility] SN RN Member Role: Primary Care Nurse Name: Esmer Rankin RN Position: [facility] AMB Nurse Member Role: Primary Care Nurse Name: Suzanna Timmons RN Position: [facility] SN RN Member Role: Primary Care Nurse Name: Juno Torres RN Position: [facility] Onco RN Member Role: Primary Care Nurse Name: Yojana Dior RN Position: [facility] RN Member Role: Primary Care Nurse Name: Farideh Balderas RN Position: [facility] Hospital Nuclear Licensing Engineer Member Role: Primary Care Nurse Name: Roxana Ann RN Position: [facility] RN Member Role: Primary Care Nurse Name: Vanessa Shelton RN Position: [facility] RN Member Role: Primary Care Nurse Name: Derick Calixto RN Position: [facility] RN Member Role: Primary Care Nurse Name: Fariba Bradley RN Position: [facility] RN Member Role: Primary Care Nurse Name: Fariba Ornelas RN Position: [facility] ED RN W/OE and Tasks Member Role: Primary Care Nurse Name: Niall GAY, Steph Position: [facility] RN Member Role: Primary Care Nurse Name: Portia Baires RN Position: [facility] SN RN Member Role: Primary Care Nurse Name: Adamaris Ahmadi RN Position: [facility] ED RN W/OE and Tasks Member Role: Primary Care Nurse Name: Leny Shanks RN Position: [facility] RN Supv Member Role: Primary Care Nurse Name: Steph Smith RN Position: [facility] RN Member Role: Primary Care Nurse Name: Casandra Robbins RN Position: [facility] RN Supv Member Role: Primary Care Nurse Name: Maris Crowell RN Position: [facility] RN Member Role: Primary Care Nurse Name: Coni Romero LPN Position: [facility] RN Member Role: Primary Care Nurse Name: Abigail Rabago RN Position: [facility] RN Member Role: Primary Care Nurse Name: Halina Burger RN Position: [facility] Onco RN Member Role: Primary Care Nurse Name: Linda Lockwood RN Position: [facility] Nuclear Licensing Engineer Member Role: Primary Care Nurse Name: Dedra Chatman RN, I Position: [facility] RN Member Role: Primary Care Nurse Name: David Oquendo RN Position: [facility] RN Member Role: Primary Care Nurse Care Team Related Persons Name: JACKIE ALANIZ Address: [address] [place] [address] Name: JUNO MENA Address: [address] [place] [address] Name: JOVITA GALARZA Address: [address] [place] [address] Name: KARL GALARZA Address: home [address] [place] [address] Name: EZEKIEL GALARZA Address: home [address] [place] [address] Name: MICHAEL BARRETT Address: [address] [place] [address] Name: SHAD TUBBS Address: home [address] [place] [id number]
--- OUTSIDE RECORDS SUMMARY | 2023-07-11 03:25 | XMS_ITS | Continuity of Care Document ---
Author Organization [facility] Address [address] [place] [address]- Care Team Providers Care Artist And Repertoire Manager Name Role Phone Lesia Cuevas MD Primary Care Physician Encounter [facility] Date(s): 12/18/22 - 01/17/[address] [id number]- Allergies, Adverse Reactions, Alerts Substance Reaction Severity [...] Comment: normal saline diluent added lot number [id number] expires 07/23/2022 2Result Comment: Afluria Medications allopurinol 100 mg oral tablet 100 mg, 1, tablet, By Mouth, Daily, # 90 tablet, Refills 1, Tot. Refills 1, Maintenance, 09/01/22 13:18:00 EDT, Route to Pharmacy Electronically, [facility]/pharmacy #[id number], Partial fill upon patient requestif the prescription is for a schedule II opioid lynn... Start Date: 10/24/21 Status: Ordered clindamycin 1% topical lotion 1 application, Topically, 2 times a day, apply to L armpit lesions/bumps twice per day until healed, # 60 mL, 0 Refills, Maintenance, 10/24/21 15:35:00 EDT, Lotion, [facility]/pharmacy #[id number], Partial fill upon patient request if the prescription is for a amado... Start Date: 10/24/21 Status: Ordered Daily Lazara oral tablet 1 tablet, By Mouth, Daily Start Date: 07/03/21 Status: Ordered diphenhydrAMINE 25 mg oral capsule 1 capsule, By Mouth, 3 times a day, PRN NEEDED FOR ITCHING, # 90 capsule, 2 Refills, Maintenance, 05/14/22 15:26:00 EDT, [id number], 163, cm, 05/12/22 16:01:00 EDT, Height, 61.5, kg, 05/10/2316:29:00 EDT, Dry Weight Start Date: 05/14/22 Status: Ordered Estrace Vaginal Cream 0.1 mg/g = 1 Gm, Vaginally, Daily at bedtime, # 90 Gm, 3 Refills, Maintenance, 12/06/21 14:57:00 EDT, [facility]/pharmacy #[id number], Partial fill upon patient request if the prescription is for a schedule II opioid drug., 160, cm, 12/06/21 14:22:00 EDT, Height, 72.9, kg,... Start Date: 12/06/21 Status: Ordered Eucerin Plus topical lotion 1 application, Topically, 2 times a day, PRN for dry skin, # 180 mL, 0 Refills, Maintenance, 03/12/22 16:28:00 EST, Lotion, [facility]/pharmacy #[id number], Partial fill upon patient request if the prescription is for a schedule II opioid drug., 1 application Topi... Start Date: 03/12/22 Status: Ordered Flonase 50 mcg/inh nasal spray 1 sprays, Nares, Both, 2 times a day, # 1 each, 6 Refills, Maintenance, 07/08/22 17:26:00 EDT, [place], [id number], Partial fill upon patient request [...] 04/11/22 15:56:00 EST, Route to Pharmacy Electronically, [facility]/pharmacy #[id number], 163, cm, 04/11/22 15:32:00 EST, Height, 60.8, kg, 02/19/22 19:05:00 EST, Dry Weight Start Date: 04/11/22 Status: Ordered LORazepam 1 mg oral tablet 1 tablet = 1 mg, By Mouth, 2 times a day, for 7 days, # 14 tablet, 0 Refills, Acute 01/22/23 16:23:00 EST, 01/15/23 16:23:00 EST, Tablet, [facility]/pharmacy #[id number], Partial fill upon patient request if the prescription is for a schedule II opioid drug., 163,... Start Date: 01/15/23 Stop Date: 01/22/23 Status: Ordered MiraLax oral powder for reconstitution = 17 Gm, By Mouth, Daily, dissolve in water before taking, # 255 Gm, 1 Refills, Maintenance, 04/11/22 21:05:00 EST, REC Powder, [facility]/pharmacy #[id number], Partial fill upon patient request if the prescription is for a schedule II opioid drug., 17 Gm By Mouth... Start Date: 04/11/22 Status: Ordered nicotine 4 mg oral transmucosal gum See Instructions, CHEW 1 PIECE EVERY 2 HOURS NEEDED FOR SMOKING CESSATION, # 200 gum, 0 Refills,[id number], 160, cm, 08/01/21 21:18:00 EDT, Height, 72.9, kg, 08/01/21 21:18:00 EDT, Dry Weight Start Date: 08/05/21 Status: Ordered omeprazole 20 mg oral enteric coated capsule 1 capsule = 20 mg, By Mouth, Daily, # 90 capsule, 10 Refills, Maintenance, 10/24/21 12:29:00 EDT, [facility]/pharmacy #[id number], Partial fill upon patient request if the prescription is for a schedule II opioiddrug., 160, cm, 10/24/21 11:46:00 EDT, Height, 72.9... Start Date: 10/24/21 Status: Ordered oxyCODONE 10 mg oral tablet 2 tablet = 20 mg, By Mouth, Every 4 hours, PRN as needed for pain, # 84 tablet, 0 Refills, Maintenance, 01/15/23 16:22:00 EST, Tablet, [facility]/pharmacy #1026, Partial fill upon patient request if the prescription is for a schedule II opioid drug., 163, cm... Start Date: 01/15/23 Stop Date: 01/22/23 Status: Ordered oxyCODONE 5 mg oral tablet 20 mg, 4, tablet, By Mouth, Every 4 hours, PRN, # 168 tablet, Refills 0, Tot. Refills 0, Maintenance, Pain , Severe, 07/18/22 12:19:00 EDT, Route to Pharmacy Electronically, [facility]/pharmacy #[id number], Scripfor 5 mg tabs sent as [...] 05/12/22 15:17:00 EDT, Route to Pharmacy Electronically, [facility]/pharmacy #[id number], Partial fill upon patient request if the prescription is for a schedule II opioid drug... Start Date: 05/12/22 Status: Ordered QUEtiapine 25 mg oral tablet 1, tablet, By Mouth, 2 times a day, PRN, # 90 tablet, Refills 0, Tot. Refills 0, Maintenance, NEEDED FOR AGITATION, 01/01/22 10:03:00 EST, Route to Pharmacy Electronically, [facility]/pharmacy #[id number], 160, cm, 10/24/21 11:46:00 EDT, Height, 72.9, kg, 08/01... Start Date: 01/01/22 Status: Ordered sodium zirconium cyclosilicate 10 g oral powder for reconstitution = 5 Gm, By Mouth, Every Thursday and , # 30 each, 0 Refills, Maintenance, 02/24/22 10:38:00 EST, [facility]/pharmacy #1130, Partial fill upon [...] Care Team Personnel Name: Indiana Zuleta Position: [facility] Onco RN Member Role: Primary Care Nurse Name: Naila Hinds RN Position: [facility] RN Member Role: Primary Care Nurse Name: Marisa Rosario RN Position: [facility] RN Member Role: Primary Care Nurse Name: Carmen Hdez RN Position: [facility] ED RN W/OE and Tasks Member Role: Primary Care Nurse Name: Jordon Cruz RN Position: [facility] ED RN W/OE and Tasks Member Role: Primary Care Nurse Name: Daisy Rushing RN Position: [facility] RN Member Role: Primary Care Nurse Name: Ana Faustin RN Position: [facility] RN Member Role: Primary Care Nurse Name: Corinna Fajardo RN Position: [facility] AMB Nurse Member Role: Primary Care Nurse Name: Ira Apodaca RN Position: [facility] ED RN W/OE and Tasks Member Role: Primary Care Nurse Name: Idania More RN Position: [facility] RN Member Role: Primary Care Nurse Name: Paola Rinaldi RN Position: [facility] RN Supv Member Role: Primary Care Nurse Name: Lian Joy RN Position: [facility] RN Member Role: Primary Care Nurse Name: Nikkie Sommers RN Position: [facility] RN Supv Member Role: Primary Care Nurse Name: Jasmine Ortega NP Position: [facility] Associate Professional Member Role: Primary Care Nurse Address: Address: [address] [place] [id number]- [place] Name: Rivka Cook RN Position: [facility] RN Member Role: Primary Care Nurse Name: Daisy Brower RN Position: [facility] RN Member Role: Primary Care Nurse Name: Kimberly Skinner RN Position: [facility] RN Member Role: Primary Care Nurse Name: Abhishek Johnson RN Position: [facility] RN Member Role: Primary Care Nurse Name: Lesia Cuevas MD Position: [facility] Resident Member Role: PCP Address: Address: [address] [place] [id number]- Name: Barbara Rae RN Position: [facility] AMB Nurse Member Role: Primary Care Nurse Name: Ina Renee RN Position: [facility] RN Member Role: Primary Care Nurse Name: Yesica Delong RN Position: [facility] ED RN W/OE and Tasks Member Role: Primary Care Nurse Name: Paula Earl RN Position: [facility] RN Member Role: Primary Care Nurse Name: Susan Miller RN Position: [facility] ED RN W/OE and Tasks Member Role: Primary Care Nurse Name: Pao Key Position: [facility] RN Member Role: Primary Care Nurse Name: Maris Trevino RN Position: [facility] ED RN W/OE and Tasks Member Role: Primary Care Nurse Name: Steph Gordillo RN Position: [facility] OB RN Member Role: Primary Care Nurse Name: Rene Ramos DO Position: [facility] Renal MD Member Role: Lifetime Consulting Physician Address: Address: [address] [place], [place] [address] [place] [address]- Name: Ryder Matthews Position: [facility] RN Member Role: Primary Care Nurse Name: Mary Correia RN Position: [facility] ED RN W/OE and Tasks Member Role: Primary Care Nurse Name: Tierra Razo RN Position: [facility] RN Member Role: Primary Care Nurse Name: Librado Saucedo RN Position: [facility] ED RN W/OE and Tasks Member Role: Primary Care Nurse Name: Laron Davenport III, RN Position: [facility] RN Member Role: Primary Care Nurse Name: Danya Govea RN Position: [facility] RN Member Role: Primary Care Nurse Name: Idania Millard RN Position: [facility] RN Member Role: Primary Care Nurse Name: Blake Grant RN Position: [facility] SN RN Member Role: Primary Care Nurse Name: Mariella Ojeda RN Position: [facility] RN Member Role: Primary Care Nurse Name: Yaquelin Dawkins RN Position: [facility] RN Member Role: Primary Care Nurse Name: Cari Khan RN Position: [facility] RN Member Role: Primary Care Nurse Name: Dequan Elliott RN Position: [facility] SN RN Member Role: Primary Care Nurse Name: Esmer Rankin RN Position: [facility] AMB Nurse Member Role: Primary Care Nurse Name: Suzanna Timmons RN Position: [facility] SN RN Member Role: Primary Care Nurse Name: Juno Torres RN Position: [facility] Onco RN Member Role: Primary Care Nurse Name: Yojana Dior RN Position: [facility] RN Member Role: Primary Care Nurse Name: Farideh Balderas RN Position: [facility] [employer] [facility] [employer] Hand Member Role: Primary Care Nurse Name: Roxana Ann RN Position: [facility] RN Member Role: Primary Care Nurse Name: Vanessa Shelton RN Position: [facility] RN Member Role: Primary Care Nurse Name: Derick Calixto RN Position: [facility] RN Member Role: Primary Care Nurse Name: Fariba Bradley RN Position: [facility] RN Member Role: Primary Care Nurse Name: Fariba Ornelas RN Position: [facility] ED RN W/OE and Tasks Member Role: Primary Care Nurse Name: Steph Tierney RN Position: [facility] RN Member Role: Primary Care Nurse Name: Portia Baires RN Position: [facility] SN RN Member Role: Primary Care Nurse Name: Leny Shanks RN Position: [facility] RN Supv Member Role: Primary Care Nurse Name: Steph Smith RN Position: [facility] RN Member Role: Primary Care Nurse Name: Casandra Robbins RN Position: [facility] RN Supv Member Role: Primary Care Nurse Name: Maris Crowell RN Position: [facility] RN Member Role: Primary Care Nurse Name: Coni Romero LPN Position: [facility] RN Member Role: Primary Care Nurse Name: Abigail Rabago RN Position: [facility] RN Member Role: Primary Care Nurse Name: Halina Burger RN Position: [facility] Onco RN Member Role: Primary Care Nurse Name: Linda Lockwood RN Position: [facility] [employer] Member Role: Primary Care Nurse Name: Dedra Chatman RN, I Position: [facility] RN Member Role: Primary Care Nurse Name: David Oquendo RN Position: [facility] RN Member Role: Primary Care Nurse Care Team Related Persons Name: JACKIE ALANIZ Address: [address] [place] [address] Name: JUNO MENA Address: [address] [place] [address] Name: JOVITA GALARZA Address: home [address] [place] [address] Name: KARL GALARZA Address: home [address] [place] [address] Name: EZEKIEL GALARZA Address: home [address] [place] [address] Name: MICHAEL BARRETT Address: home [address] [place] [address] Name: SHAD TUBBS Address: home [address] [place] [id number]
--- OUTSIDE RECORDS SUMMARY | 2023-07-11 03:25 | XMS_ITS | Continuity of Care Document ---
Author Organization [facility] Address [address] [place] [id number]- Care Team Providers Care Fire Equipment Operator Name Role Phone Lesia Cuevas MD Primary Care Physician Encounter [facility] Date(s): 02/24/23 - 03/26/[address] [address]- Attending Physician: Suzan ARCHIBALD(Hem/Onc), Jordon Lainez Admitting [...] Comment: normal saline diluent added lot number [id number] expires 07/23/2022 2Result Comment: Afluria Medications allopurinol 100 mg oral tablet 100 mg, 1, tablet, By Mouth, Daily, # 90 tablet, Refills 11, Tot. Refills 11, Maintenance, 03/05/2411:43:00 EST, Route to Pharmacy Electronically, [facility]/pharmacy #[id number], Partial fill upon patient request if the prescription is for a schedule II opioid d... Start Date: 03/05/23 Status: Ordered clindamycin 1% topical lotion 1 application, Topically, 2 times a day, apply to L armpit lesions/bumps twice per day until healed, # 60 mL, 0 Refills, Maintenance, 10/24/21 15:35:00 EDT, Lotion, [facility]/pharmacy #[id number], Partial fill [...] capsule, 2 Refills, Maintenance, 05/14/22 15:26:00 EDT, [id number], 163, cm, 05/12/22 16:01:00 EDT, Height, 61.5, kg, 05/10/2316:29:00 EDT, Dry Weight Start Date: 05/14/22 Status: Ordered Estrace Vaginal Cream 0.1 mg/g = 1 Gm, Vaginally, Daily at bedtime, # 90 Gm, 3 Refills, Maintenance, 12/06/21 14:57:00 EDT, [facility]/pharmacy #1130, Partial fill upon patient request if the prescription is for a schedule II opioid drug., 160, cm, 12/06/21 14:22:00 EDT, Height, 72.9, kg,... Start Date: 12/06/21 Status: Ordered Eucerin Plus topical lotion 1 application, Topically, 2 times a day, PRN for dry skin, # 180 mL, 0 Refills, Maintenance, 03/12/22 16:28:00 EST, Lotion, [facility]/pharmacy #1130, Partial fill upon patient request if the prescription is for a schedule II opioid drug., 1 application Topi... Start Date: 03/12/22 Status: Ordered Flonase 50 mcg/inh nasal spray 1 sprays, Nares, Both, 2 times a day, # 1 each, 6 Refills, Maintenance, 07/08/22 17:26:00 EDT, Oxly, [facility], Partial fill upon patient request [...] 03/05/23 12:43:00 EST, Route to Pharmacy Electronically, [facility]/pharmacy #[id number], Partial fill upon patient request [...] 04/11/22 15:56:00 EST, Route to Pharmacy Electronically, [facility]/pharmacy #1130, 163, cm, 04/11/22 15:32:00 EST, Height, 60.8, kg, 02/19/22 19:05:00 EST, Dry Weight Start Date: 04/11/22 Status: Ordered LORazepam 1 mg oral tablet 1 tablet = 1 mg, By Mouth, 2 times a day, for 7 days, # 14 tablet, 0 Refills, Acute 04/02/23 16:23:00 EST, 03/26/23 16:23:00 EST, Tablet, [facility]/pharmacy #1130, Partial fill upon patient request if the prescription is for a schedule II opioid drug., 163,... Start Date: 03/26/23 Stop Date: 04/02/23 Status: Ordered MiraLax oral powder for reconstitution = 17 Gm, By Mouth, Daily, dissolve in water before taking, # 255 Gm, 1 Refills, Maintenance, 04/11/22 21:05:00 EST, REC Powder, [facility]/pharmacy #1130, Partial fill upon patient request if the prescription is for a schedule II opioid drug., 17 Gm By Mouth... Start Date: 04/11/22 Status: Ordered nicotine 4 mg oral transmucosal gum See Instructions, CHEW 1 PIECE EVERY 2 HOURS NEEDED FOR SMOKING CESSATION, # 200 gum, 0 Refills,[id number], 160, cm, 08/01/21 21:18:00 EDT, Height, 72.9, kg, 08/01/21 21:18:00 EDT, Dry Weight Start Date: 08/05/21 Status: Ordered omeprazole 20 mg oral enteric coated capsule 1 capsule = 20 mg, By Mouth, Daily, # 90 capsule, 10 Refills, Maintenance, 10/24/21 12:29:00 EDT, [facility]/pharmacy #1130, Partial fill upon patient request if the prescription is for a schedule II opioiddrug., 160, cm, 10/24/21 11:46:00 EDT, Height, 72.9... Start Date: 10/24/21 Status: Ordered oxyCODONE 10 mg oral tablet 2 tablet = 20 mg, By Mouth, Every 4 hours, PRN as needed for pain, # 84 tablet, 0 Refills, Maintenance, 03/25/23 9:27:00 EST, Tablet, [facility]/pharm[facility] #1130, Partial fill [...] 03/11/23 14:59:00 EST, Route to Pharmacy Electronically, [facility]/pharmacy #[id number], Scripfor 5 mg tabs sent as [...] 05/12/22 15:17:00 EDT, Route to Pharmacy Electronically, [facility]/pharm[facility] #1130, Partial fill upon patient request if the prescription is for a schedule II opioid drug... Start Date: 05/12/22 Status: Ordered QUEtiapine 25 mg oral tablet 1, tablet, By Mouth, 2 times a day, PRN, # 90 tablet, Refills 0, Tot. Refills 0, Maintenance, NEEDED FOR AGITATION, 01/01/22 10:03:00 EST, Route to Pharmacy Electronically, [facility]/pharmacy #1130, 160, cm, 10/24/21 11:46:00 EDT, Height, 72.9, kg, 08/01... Start Date: 01/01/22 Status: Ordered sodium zirconium cyclosilicate 10 g oral powder for reconstitution = 5 Gm, By Mouth, Every Thursday and , # 30 each, 0 Refills, Maintenance, 02/24/22 10:38:00 EST, [facility]/pharm[facility] #1130, Partial fill upon patient [...] Care Team Personnel Name: Indiana Zuleta Position: [facility] Onco RN Member Role: Primary Care Nurse Name: Marisa Rosario RN Position: [facility] RN Member Role: Primary Care Nurse Name: Carmen Hdez RN Position: [facility] ED RN W/OE and Tasks Member Role: Primary Care Nurse Name: Jordon Cruz RN Position: [facility] ED RN W/OE and Tasks Member Role: Primary Care Nurse Name: Daisy Rushing RN Position: [facility] RN Member Role: Primary Care Nurse Name: Ana Faustin RN Position: [facility] RN Member Role: Primary Care Nurse Name: Corinna Fajardo RN Position: [facility] AMB Nurse Member Role: Primary Care Nurse Name: Ira Apodaca RN Position: [facility] ED RN W/OE and Tasks Member Role: Primary Care Nurse Name: Idania More RN Position: [facility] RN Member Role: Primary Care Nurse Name: Paola Rinaldi RN Position: [facility] RN Supv Member Role: Primary Care Nurse Name: Lian Joy RN Position: [facility] RN Member Role: Primary Care Nurse Name: Nikkie Sommers RN Position: [facility] RN Supv Member Role: Primary Care Nurse Name: Jasmine Ortega NP Position: [facility] Associate Professional Member Role: Primary Care Nurse Address: Address: [address] [place] [address]- [place] Name: Rivka Cook RN Position: [facility] RN Member Role: Primary Care Nurse Name: Daisy Brower RN Position: [facility] RN Member Role: Primary Care Nurse Name: Kimberly Skinner RN Position: [facility] RN Member Role: Primary Care Nurse Name: Abhishek Johnson RN Position: [facility] RN Member Role: Primary Care Nurse Name: Lesia Cuevas MD Position: [facility] Resident Member Role: PCP Address: Address: [address] [place] [address]- [place] Name: Rene Pham RN Position: [facility] Outreach Member Role: Primary Care Nurse Name: Barbara Rae RN Position: [facility] AMB Nurse Member Role: Primary Care Nurse Name: Ina Renee RN Position: [facility] RN Member Role: Primary Care Nurse Name: Yesica Delong RN Position: [facility] ED RN W/OE and Tasks Member Role: Primary Care Nurse Name: Paula Earl RN Position: [facility] RN Member Role: Primary Care Nurse Name: Susan Miller RN Position: [facility] SN RN Member Role: Primary Care Nurse Name: Pao Key Position: [facility] RN Member Role: Primary Care Nurse Name: Maris Trevino RN Position: [facility] ED RN W/OE and Tasks Member Role: Primary Care Nurse Name: Steph Gordillo RN Position: [facility] OB RN Member Role: Primary Care Nurse Name: Rene Ramos DO Position: [facility] Renal MD Member Role: Lifetime Consulting Physician [facility] [address] [facility] [place] [address]- [place] Name: Ryder Matthews Position: [facility] RN Member Role: Primary Care Nurse Name: Mary Correia RN Position: [facility] ED RN W/OE and Tasks Member Role: Primary Care Nurse Name: Tierra Razo RN Position: [facility] RN Member Role: Primary Care Nurse Name: Librado Saucedo RN Position: [facility] ED RN W/OE and Tasks Member Role: Primary Care Nurse Name: Laron Davenport III, RN Position: [facility] RN Member Role: Primary Care Nurse Name: Danya Govea RN Position: [facility] RN Member Role: Primary Care Nurse Name: Idania Millard RN Position: [facility] RN Member Role: Primary Care Nurse Name: Blake Grant RN Position: [facility] SN RN Member Role: Primary Care Nurse Name: Mariella Ojeda RN Position: [facility] RN Member Role: Primary Care Nurse Name: Cari Khan RN Position: [facility] RN Member Role: Primary Care Nurse Name: Dequan Elliott RN Position: [facility] SN RN Member Role: Primary Care Nurse Name: Esmer Rankin RN Position: [facility] AMB Nurse Member Role: Primary Care Nurse Name: Suzanna Timmons RN Position: [facility] SN RN Member Role: Primary Care Nurse Name: Juno Torres RN Position: [facility] Onco RN Member Role: Primary Care Nurse Name: Yojana Dior RN Position: [facility] RN Member Role: Primary Care Nurse Name: Corby Lester RN Position: [facility] RN Member Role: Primary Care Nurse Name: Farideh Balderas RN Position: [facility] Ground Surveillance Systems Operator Member Role: Primary Care Nurse Name: Roxana Ann RN Position: [facility] Onco RN Member Role: Primary Care Nurse Name: Vanessa Shelton RN Position: [facility] RN Member Role: Primary Care Nurse Name: Derick Calixto RN Position: [facility] RN Member Role: Primary Care Nurse Name: Fariab Bradley RN Position: [facility] RN Member Role: Primary Care Nurse Name: Farbia Ornelas RN Position: [facility] ED RN W/OE and Tasks Member Role: Primary Care Nurse Name: Steph Tierney RN Position: [facility] RN Member Role: Primary Care Nurse Name: Portia Baires RN Position: [facility] SN RN Member Role: Primary Care Nurse Name: Adamaris Ahmadi RN Position: [facility] ED RN W/OE and Tasks Member Role: Primary Care Nurse Name: Leny Shanks RN Position: [facility] RN Supv Member Role: Primary Care Nurse Name: Steph Smith RN Position: [facility] RN Member Role: Primary Care Nurse Name: Casandra Robbins RN Position: [facility] RN Supv Member Role: Primary Care Nurse Name: Maris Crowell RN Position: [facility] RN Member Role: Primary Care Nurse Name: Coni Romero LPN Position: [facility] RN Member Role: Primary Care Nurse Name: Abigail Rabago RN Position: [facility] RN Member Role: Primary Care Nurse Name: Halina Burger RN Position: [facility] Onco RN Member Role: Primary Care Nurse Name: Linda Lockwood RN Position: [facility] Hospital Ground Surveillance Systems Operator Member Role: Primary Care Nurse Name: Dedra Chatman RN, I Position: [facility] RN Member Role: Primary Care Nurse Care Team Related Persons Name: JACKIE ALANIZ Address: [address] [place] [address] Name: JUNO MENA Address: home [address] [place] [address] Name: JOVITA GALARZA Address: home [address] [place] [address] Name: KARL GALARZA Address: home [address] [place] [address] Name: EZEKIEL GALARZA Address: home [address] [place] [address] Name: MICHAEL BARRETT Address: home [address] [place] [address] Name: SHAD TUBBS Address: home [address] [place] [address]
--- OUTSIDE RECORDS SUMMARY | 2023-07-11 03:25 | XMS_ITS | Continuity of Care Document ---
Author Organization [facility] Address [address] [place] [address]- Care Team Providers Care Lead Massage Therapist Name Role Phone Lesia Cuevas MD Primary Care Physician Encounter [facility] AC[facility] R [id number] Date(s): 05/07/23 - 06/14/[address] [address]- Attending Physician: Manny Desir MD Admitting Physician: Manny Desir MD Referring Physician: Lesia Cuevas MD Allergies, [...] Comment: normal saline diluent added lot number [id number] expires 07/23/2022 2Result Comment: Afluria Medications allopurinol 100 mg oral tablet 100 mg, 1, tablet, By Mouth, Daily, # 90 tablet, Refills 11, Tot. Refills 11, Maintenance, 03/05/2411:43:00 EST, Route to Pharmacy Electronically, [id number], Partial fill upon patient request if the prescription is for a schedule II opioid d... Start Date: 03/05/23 Status: Ordered apixaban Starter Pack 5 mg oral tablet See Instructions, Take to 2 tablets by mouth 2 times a day for 3 days and then start taking 1 tablet by mouth 2 times a day from 05/09/2023, # 60 each, 3 Refills, Maintenance, 05/08/23 16:39:00 EDT, Tablet, [facility], Partial fill upon patien... Start Date: 05/08/23 Status: Ordered colchicine 0.6 mg oral tablet 12 each, 0 Refill(s), PLEASE SEE ATTACHED FOR DETAILED DIRECTIONS, Refills 0, 04/30/23 17:17:00 EST, Partial fill upon patient request if the prescription is for a schedule II opioid drug. Start Date: 04/30/23 Status: Ordered folic acid 1 mg oral [...] 03/05/23 12:43:00 EST, Route to Pharmacy Electronically, [id number], Partial fill upon patient request if the prescription is for a schedule II... Start Date: 03/05/23 Status: Ordered Inogen Portable Oxygen concentrator Inogen Portable Oxygen concentrator, See Instructions, # 1 each, Refills 0, Tot. Refills 0, Maintenance, Chronic hypoxic respiratory failure (J96.11) For use at rest and with exertion at 6L/min, 08/08/22 13:35:00 EDT, Supply Start Date: 08/08/22 Status: Ordered LORazepam 1 mg oral tablet 1 tablet = 1 mg, By Mouth, 2 times a day, PRN as needed for anxiety, for 7 days, # 14 tablet, 0 Refills, Acute 06/17/23 12:41:00 EDT, 06/10/23 12:41:00 EDT, Tablet, [facility], Partial fill upon patient request if the prescription is for a amado... Start Date: 06/10/23 Stop Date: 06/17/23 Status: Ordered omeprazole 20 mg oral enteric [...] pain, # 84 tablet, 0 Refills, Maintenance, 06/10/23 18:52:00 EDT, Tablet, [facility], Partial fill upon patient request if the prescription is for a schedule II opioid drug., 162, cm... Start Date: 06/10/23 Stop Date: 06/17/23 Status: Ordered Problem List Condition Confirmation Course [...] Care Nurse Name: Carmen Hdez RN Position: [facility] ED RN W/OE and Tasks Member Role: Primary Care Nurse Name: Jordon Cruz RN Position: [facility] ED RN W/OE and Tasks Member Role: Primary Care Nurse Name: Daisy Rushing RN Position: [facility] RN Member Role: Primary Care Nurse Name: Ana Faustin RN Position: [facility] RN Member Role: Primary Care Nurse Name: Ira Garnett Position: [facility] RN Supv Member Role: Primary Care Nurse Name: Corinna Fajardo RN Position: [facility] AMB Nurse Member Role: Primary Care Nurse Name: Constanza RNIra Position: [facility] ED RN W/OE and Tasks Member Role: Primary Care Nurse Name: Idania More RN Position: [facility] RN Member Role: Primary Care Nurse Name: Lian Joy RN Position: [facility] RN Member Role: Primary Care Nurse Name: Nikkie Sommers RN Position: [facility] RN Supv Member Role: Primary Care Nurse Name: Jasmine Ortega NP Position: [facility] Associate Professional Member Role: Primary Care Nurse Address: Address: [address] [place] [address]- Name: Rivka Cook RN Position: [facility] RN Member Role: Primary Care Nurse Name: Daisy Brower RN Position: [facility] RN Member Role: Primary Care Nurse Name: Kimberly Skinner RN Position: [facility] RN Member Role: Primary Care Nurse Name: Abhishek Johnson RN Position: [facility] RN Member Role: Primary Care Nurse Name: Lani Torres RN Position: [facility] RN Member Role: Primary Care Nurse Name: Lesia Cuevas MD Position: [facility] Resident Member Role: PCP Address: Address: [address] [place] [address]- [place] Name: Rene Pham RN Position: [facility] Outreach Member Role: Primary Care Nurse Name: Barbara Rae RN Position: [facility] AMB Nurse Member Role: Primary Care Nurse Name: Ina Renee RN Position: [facility] RN Member Role: Primary Care Nurse Name: Jeramie Rivers RN Position: [facility] Outreach Member Role: Primary Care Nurse Name: Sabiha Torres RN Position: [facility] RN Member Role: Primary Care Nurse Name: Yesica Delong RN Position: [facility] ED RN W/OE and Tasks Member Role: Primary Care Nurse Name: Paula Earl RN Position: [facility] RN Member Role: Primary Care Nurse Name: Susan Miller RN Position: [facility] ED RN W/OE and Tasks Member Role: Primary Care Nurse Name: Pao Key Position: [facility] RN Member Role: Primary Care Nurse Name: Maris Trevino RN Position: [facility] ED RN W/OE and Tasks Member Role: Primary Care Nurse Name: Steph Gordillo RN Position: [facility] OB RN Member Role: Primary Care Nurse Name: Rene Ramos DO Position: [facility] Renal MD Member Role: Lifetime Consulting Physician Address: Address: [address] [place], [place] [address] [place] [place] [address] Name: Ryder Matthews Position: [facility] RN Member Role: Primary Care Nurse Name: Mary Correia RN Position: [facility] ED RN W/OE and Tasks Member Role: Primary Care Nurse Name: Tierra Razo RN Position: [facility] RN Member Role: Primary Care Nurse Name: Librado Saucedo RN Position: [facility] ED RN W/OE and Tasks Member Role: Primary Care Nurse Name: Laron Davenport III, RN Position: [facility] RN Member Role: Primary Care Nurse Name: Danya Govea RN Position: [facility] RN Member Role: Primary Care Nurse Name: Idania Millard RN Position: [facility] RN Member Role: Primary Care Nurse Name: Blake Grant RN Position: [facility] SN RN Member Role: Primary Care Nurse Name: Mariella Ojeda RN Position: [facility] RN Member Role: Primary Care Nurse Name: Cari Khan RN Position: [facility] RN Member Role: Primary Care Nurse Name: Dequan Elliott RN Position: [facility] SN RN Member Role: Primary Care Nurse Name: Esmer Rankin RN Position: [facility] AMB Nurse Member Role: Primary Care Nurse Name: Karuna Travis RN Position: [facility] RN Member Role: Primary Care Nurse Name: Suzanna Timmons RN Position: [facility] AMB Nurse Member Role: Primary Care Nurse Name: Juno Torres RN Position: [facility] Onco RN Member Role: Primary Care Nurse Name: Yojana Dior RN Position: [facility] RN Member Role: Primary Care Nurse Name: Corby Lester RN Position: [facility] RN Member Role: Primary Care Nurse Name: Farideh Balderas RN Position: [facility] [employer] Software Developer Member Role: Primary Care Nurse Name: Roxana Ann RN Position: [facility] Onco RN Member Role: Primary Care Nurse Name: Vanessa Shelton RN Position: [facility] RN Member Role: Primary Care Nurse Name: Derick Calixto RN Position: [facility] RN Member Role: Primary Care Nurse Name: Fariba Bradley RN Position: [facility] RN Member Role: Primary Care Nurse Name: Fariba Ornelas RN Position: [facility] ED RN W/OE and Tasks Member Role: Primary Care Nurse Name: Steph Tierney RN Position: [facility] RN Member Role: Primary Care Nurse Name: Portia Baires RN Position: [facility] SN RN Member Role: Primary Care Nurse Name: Adamaris Ahmadi RN Position: [facility] ED RN W/OE and Tasks Member Role: Primary Care Nurse Name: Leny Shanks RN Position: [facility] RN Supv Member Role: Primary Care Nurse Name: Steph Smith RN Position: [facility] RN Member Role: Primary Care Nurse Name: Casandra Robbins RN Position: [facility] RN Supv Member Role: Primary Care Nurse Name: Maris Crowell RN Position: [facility] RN Member Role: Primary Care Nurse Name: Coni Romero LPN Position: [facility] RN Member Role: Primary Care Nurse Name: Abigail Rabago RN Position: [facility] RN Member Role: Primary Care Nurse Name: Halina Burger RN Position: [facility] Onco RN Member Role: Primary Care Nurse Name: Linda Lockwood RN Position: [facility] [employer] Software Developer Member Role: Primary Care Nurse Name: Dedra Chatman RN, I Position: [facility] RN Member Role: Primary Care Nurse Care Team Related Persons Name: JACKIE ALANIZ Address: [address] [place] [address] Name: TRINA JUNO Address: home [address] [place] [address] Name: JOVITA GALARZA Address: home [address] [place] [address] Name: KARL GALARZA Address: home [address] [place] [address] Name: EZEKIEL GALARZA Address: home [address] [place] [address] Name: MICHAEL BARRETT Address: home [address] [place] [address] Name: SHAD TUBBS Address: home [address] [place] [address]
--- OUTSIDE RECORDS SUMMARY | 2023-07-11 03:25 | XMS_ITS | Continuity of Care Document ---
Author Organization [facility] Address [address] [place] [address]- Care Team Providers Care Coke Oven Patcher Name Role Phone Lesia Cuevas MD Primary Care Physician Encounter [facility] [place] Date(s): 01/05/23 - 02/04/[address] [address]- Attending Physician: [place] Aguero Admitting Physician: [place] [...] Comment: normal saline diluent added lot number [id number] expires 07/23/2022 2Result Comment: Afluria Medications allopurinol 100 mg oral tablet 100 mg, 1, tablet, By Mouth, Daily, # 90 tablet, Refills 1, Tot. Refills 1, Maintenance, 10/24/21 13:18:00 EDT, Route to Pharmacy Electronically, [facility]/pharmacy #1130, Partial fill upon patient requestif the prescription is for a schedule II opioid lynn... Start Date: 10/24/21 Status: Ordered clindamycin 1% topical lotion 1 application, Topically, 2 times a day, apply to L armpit lesions/bumps twice per day until healed, # 60 mL, 0 Refills, Maintenance, 10/24/21 15:35:00 EDT, Lotion, [facility]/pharmacy [...] capsule, 2 Refills, Maintenance, 05/14/22 15:26:00 EDT, [facility] STORE [id number], 163, cm, 05/12/22 16:01:00 EDT, Height, 61.5, kg, 05/10/2316:29:00 EDT, Dry Weight Start Date: 05/14/22 Status: Ordered Estrace Vaginal Cream 0.1 mg/g = 1 Gm, Vaginally, Daily at bedtime, # 90 Gm, 3 Refills, Maintenance, 12/06/21 14:57:00 EDT, [facility]/pharmacy #1130, Partial fill upon patient request if the prescription is for a schedule II opioid drug., 160, cm, 12/06/21 14:22:00 EDT, Height, 72.9, kg,... Start Date: 12/06/21 Status: Ordered Eucerin Plus topical lotion 1 application, Topically, 2 times a day, PRN for dry skin, # 180 mL, 0 Refills, Maintenance, 03/12/22 16:28:00 EST, Lotion, [facility]/pharmacy #1130, Partial fill upon patient request if the prescription is for a schedule II opioid drug., 1 application Topi... Start Date: 03/12/22 Status: Ordered Flonase 50 mcg/inh nasal spray 1 sprays, Nares, Both, 2 times a day, # 1 each, 6 Refills, Maintenance, 07/08/22 17:26:00 EDT, [place], [facility]/pharmacy [facility]1130, Partial fill upon patient request [...] 04/11/22 15:56:00 EST, [id number] 163, cm, 04/11/22 15:32:00 EST, Height, 60.8, kg, 02/19/22 19:05:00 EST, Dry Weight Start Date: 04/11/22 Status: Ordered LORazepam 1 mg oral tablet 1 tablet = 1 mg, By Mouth, 2 times a day, for 7 days, # 14 tablet, 0 Refills, Acute 02/12/23 16:23:00 EST, 02/05/23 16:23:00 EST, Tablet, [facility]/pharmacy #1026, Partial fill upon patient request if the prescription is for a schedule II opioid drug., 163,... Start Date: 02/05/23 Stop Date: 02/12/23 Status: Ordered LORazepam 1 mg oral tablet 1 tablet = 1 mg, By Mouth, 2 times a day, for 7 days, # 14 tablet, 0 Refills, Acute 02/05/23 16:23:00 EST, 01/29/23 16:23:00 EST, [facility] Partial fill upon patient request if the prescription is for a schedule II opioid drug., 163,... Start Date: 01/29/23 Stop Date: 02/05/23 Status: Ordered MiraLax oral powder for reconstitution = 17 Gm, By Mouth, Daily, dissolve in water before taking, # 255 Gm, 1 Refills, Maintenance, 04/11/22 21:05:00 EST, REC Powder, [facility]/pharmacy #1130, Partial fill upon patient request if the prescription is for a schedule II opioid drug., 17 Gm By Mouth... Start Date: 04/11/22 Status: Ordered nicotine 4 mg oral transmucosal gum See Instructions, CHEW 1 PIECE EVERY 2 HOURS NEEDED FOR SMOKING CESSATION, # 200 gum, 0 Refills,[id number], 160, cm, 08/01/21 21:18:00 EDT, Height, 72.9, kg, 08/01/21 21:18:00 EDT, Dry Weight Start Date: 08/05/21 Status: Ordered omeprazole 20 mg oral enteric coated capsule 1 capsule = 20 mg, By Mouth, Daily, # 90 capsule, 10 Refills, Maintenance, 10/24/21 12:29:00 EDT, [facility]/pharmacy #1130, Partial [...] 02/05/23 16:22:00 EST, 01/29/23 16:22:00 EST, Tablet, [facility]/pharmacy #1026, Partial fillupon patient request if the prescription is for a s... Start Date: 01/29/23 Stop Date: 02/05/23 Status: Ordered oxyCODONE 5 mg oral tablet 20 mg, 4, tablet, By Mouth, Every 4 hours, PRN, # 168 tablet, Refills 0, Tot. Refills 0, Maintenance, Pain , Severe, 07/18/22 12:19:00 EDT, Route to Pharmacy Electronically, [facility]/pharmacy #1130, Scripfor 5 mg tabs [...] 05/12/22 15:17:00 EDT, Route to Pharmacy Electronically, [facility]/pharmacy #1130, Partial fill upon patient request if the prescription is for a schedule II opioid drug... Start Date: 05/12/22 Status: Ordered QUEtiapine 25 mg oral tablet 1, tablet, By Mouth, 2 times a day, PRN, # 90 tablet, Refills 0, Tot. Refills 0, Maintenance, NEEDED FOR AGITATION, 01/01/22 10:03:00 EST, Route to Pharmacy Electronically, [facility]/pharmacy #1130, 160, cm, 10/24/21 11:46:00 EDT, Height, 72.9, kg, 08/01... Start Date: 01/01/22 Status: Ordered sodium zirconium cyclosilicate 10 g oral powder for reconstitution = 5 Gm, By Mouth, Every Thursday and , # 30 each, 0 Refills, Maintenance, 02/24/22 10:38:00 EST, [facility]/pharmacy #1130, [...] 12/26/20 Sex Laboratory * Event Display: Non BH Lab Results Authored Date: [id number] Note * Marleny Elliott RN: PERFORM, SIGN, VERIFY Event Display: Case Management Discharge Plan Authored Date: [id number] Patient: JOSE GALARZA Age: 48 years Sex: Female : 1970 Associated Diagnoses: None Author: Marleny Elliott RN Care Management Discharge Call Note Admit date 06/18/2018 Discharge date 06/18/2018 Date of contact 06/23/2018 Diagnosis [facility] Looks like you were recently discharged from the hospital (ED), how are you feeling? Call placed to Pt. [phone] Pt. reported she does not have any questions/concerns about discharge instructions . Pt. confirmed follow up appt. scheduled for 06/30/18 1:00pm. No additional questions/concerns presented. Do you have an appointment already scheduled with your PCP? Yes Appointment scheduled? Date 06/30/2018 Patient Care team information Care Team Personnel Name: Indiana Zuleta Position: [facility] Onco RN Member Role: Primary Care Nurse Name: Naila Hinds RN Position: [facility] RN Member Role: Primary Care Nurse Name: Marisa Rosario RN Position: [facility] RN Member Role: Primary Care Nurse Name: Carmen Hdez RN Position: [facility] ED RN W/OE and Tasks Member Role: Primary Care Nurse Name: Jordon Cruz RN Position: [facility] ED RN W/OE and Tasks Member Role: Primary Care Nurse Name: Daisy Rushing RN Position: [facility] RN Member Role: Primary Care Nurse Name: Ana Faustin RN Position: [facility] RN Member Role: Primary Care Nurse Name: Corinna Fajardo RN Position: [facility] AMB Nurse Member Role: Primary Care Nurse Name: Ira Apodaca RN Position: [facility] ED RN W/OE and Tasks Member Role: Primary Care Nurse Name: Idania More RN Position: [facility] RN Member Role: Primary Care Nurse Name: Paola Rinaldi RN Position: [facility] RN Supv Member Role: Primary Care Nurse Name: Lian Joy RN Position: [facility] RN Member Role: Primary Care Nurse Name: Nikkie Sommers RN Position: [facility] RN Supv Member Role: Primary Care Nurse Name: Jasmine Ortega NP Position: [facility] Associate Professional Member Role: Primary Care Nurse Address: Address: [address] [place] [id number] Name: Rivka Cook RN Position: [facility] RN Member Role: Primary Care Nurse Name: Daisy Brower RN Position: [facility] RN Member Role: Primary Care Nurse Name: Kimberly Skinner RN Position: [facility] RN Member Role: Primary Care Nurse Name: Abhishek Johnson RN Position: [facility] RN Member Role: Primary Care Nurse Name: Lesia Cuevas MD Position: [facility] Resident Member Role: PCP Address: Address: [address] [place] [id number]- Name: Barbara Rae RN Position: [facility] AMB Nurse Member Role: Primary Care Nurse Name: Ina Renee RN Position: [facility] RN Member Role: Primary Care Nurse Name: Yesica Delong RN Position: [facility] ED RN W/OE and Tasks Member Role: Primary Care Nurse Name: Paula Earl RN Position: [facility] RN Member Role: Primary Care Nurse Name: Susan Miller RN Position: [facility] SN RN Member Role: Primary Care Nurse Name: Pao Key Position: [facility] RN Member Role: Primary Care Nurse Name: Maris Trevino RN Position: [facility] ED RN W/OE and Tasks Member Role: Primary Care Nurse Name: Steph Gordillo RN Position: [facility] OB RN Member Role: Primary Care Nurse Name: Rene Ramos DO Position: [facility] Renal MD Member Role: Lifetime Consulting Physician Address: Address: [address] [place], [place] [address] [place] [address]- Name: Ryder Matthews Position: [facility] RN Member Role: Primary Care Nurse Name: Mary Correia RN Position: [facility] ED RN W/OE and Tasks Member Role: Primary Care Nurse Name: Tierra Razo RN Position: [facility] RN Member Role: Primary Care Nurse Name: Librado Saucedo RN Position: [facility] ED RN W/OE and Tasks Member Role: Primary Care Nurse Name: Laron Davenport III, RN Position: [facility] RN Member Role: Primary Care Nurse Name: Danya Govea RN Position: [facility] RN Member Role: Primary Care Nurse Name: Idania Millard RN Position: [facility] RN Member Role: Primary Care Nurse Name: Blake Grant RN Position: [facility] SN RN Member Role: Primary Care Nurse Name: Mariella Ojeda RN Position: [facility] RN Member Role: Primary Care Nurse Name: Yaquelin Dawkins NP Position: [facility] PCO Associate Professional Member Role: Primary Care Nurse Name: Cari Khan RN Position: [facility] RN Member Role: Primary Care Nurse Name: Dequan Elliott RN Position: [facility] SN RN Member Role: Primary Care Nurse Name: Esmer Rankin RN Position: [facility] AMB Nurse Member Role: Primary Care Nurse Name: Suzanna Timmons RN Position: [facility] SN RN Member Role: Primary Care Nurse Name: Juno Torres RN Position: [facility] Onco RN Member Role: Primary Care Nurse Name: Yojana Dior RN Position: [facility] RN Member Role: Primary Care Nurse Name: Farideh Balderas RN Position: [facility] Coach Builder Member Role: Primary Care Nurse Name: Roxana Ann RN Position: [facility] RN Member Role: Primary Care Nurse Name: Vanessa Shelton RN Position: [facility] RN Member Role: Primary Care Nurse Name: Derick Calixto RN Position: [facility] RN Member Role: Primary Care Nurse Name: Fariba Bradley RN Position: [facility] RN Member Role: Primary Care Nurse Name: Fariba Ornelas RN Position: [facility] ED RN W/OE and Tasks Member Role: Primary Care Nurse Name: Steph Tierney RN Position: [facility] RN Member Role: Primary Care Nurse Name: Portia Baires RN Position: [facility] SN RN Member Role: Primary Care Nurse Name: Adamaris Ahmadi RN Position: [facility] ED RN W/OE and Tasks Member Role: Primary Care Nurse Name: Leny Shanks RN Position: [facility] RN Supv Member Role: Primary Care Nurse Name: Steph Smith RN Position: [facility] RN Member Role: Primary Care Nurse Name: Casandra Robbins RN Position: [facility] RN Supv Member Role: Primary Care Nurse Name: Maris Crowell RN Position: [facility] RN Member Role: Primary Care Nurse Name: Coni Romero LPN Position: [facility] RN Member Role: Primary Care Nurse Name: Abigail Rabago RN Position: [facility] RN Member Role: Primary Care Nurse Name: Halina Burger RN Position: [facility] Onco RN Member Role: Primary Care Nurse Name: Linda Lockwood RN Position: [facility] Coach Builder Member Role: Primary Care Nurse Name: Dedra Chatman RN, I Position: [facility] RN Member Role: Primary Care Nurse Name: David Oquendo RN Position: [facility] RN Member Role: Primary Care Nurse Care Team Related Persons Name: JACKIE ALANIZ Address: [address] [place] [address] Name: JUNO MENA Address: home [address] [place] [address] Name: JOVITA GALARZA Address: home [address] [place] [address] Name: KARL GALARZA Address: home [address] [place] [address] Name: EZEKIEL GALARZA Address: home [address] [place] [address] Name: MICHAEL BARRETT Address: home [address] [place] [address] Name: SHAD TUBBS Address: home [address] [place] [id number]
--- OUTSIDE RECORDS SUMMARY | 2023-07-11 03:26 | XMS_ITS | Continuity of Care Document ---
Author Organization [facility] Address [address] [place] [address]- Care Team Providers Care Care Management Specialist Name Role Phone Lesia Cuevas MD Primary Care Physician [place] [facility] [place] [id number] Date(s): 05/15/23 - 06/14/[address] [address]- Attending Physician: Jamaica Aguero Admitting Physician: Jamaica Aguero Referring Physician: tr[place] Allergies, Adverse Reactions, Alerts Substance Reaction Severity [...] Comment: normal saline diluent added lot number [id number] expires 07/23/2022 2Result Comment: Afluria Medications allopurinol [...] 6L/min, 08/08/22 13:35:00 EDT, Supply Start Date: 6/16/23 Status: Ordered LORazepam 1 mg oral tablet [...] Display: Non BH Lab Results Authored Date: [id number] Note * Marleny Elliott RN: PERFORM, SIGN, VERIFY Event Display: Case Management Discharge Plan Authored Date: [id number] Patient: JOSE GALARZA Age: 48 years Sex: Female : 1970 Associated Diagnoses: None Author: Lexi GAY, Marleny Care Management Discharge Call Note Admit date 06/18/2018 Discharge date 06/18/2018 Date of contact 06/23/2018 Diagnosis [facility] Looks like you were recently discharged from the hospital (ED), how are you feeling? Call placed to Pt. [phone] Pt. reported she does not have any questions/concerns about discharge instructions . Pt. confirmed follow up appt. scheduled for 06/30/18 1:00pm. No additional questions/concerns presented. Do you have an appointment already scheduled with your PCP? Yes Appointment scheduled? Date 06/30/2018 Patient Care team information Care Team Personnel Name: [place] Zuleta Position: [facility] Onco RN Member Role: Primary Care Nurse Name: Marisa Rosario RN Position: S RN Member Role: Primary Care Nurse Name: Carmen Hdez RN Position: [facility] ED RN W/OE and Tasks Member Role: Primary Care Nurse Name: Jordon Cruz RN Position: [facility] ED RN W/OE and Tasks Member Role: Primary Care Nurse Name: Daisy Rushing RN Position: [facility] RN Member Role: Primary Care Nurse Name: Ana Faustin RN Position: [facility] RN Member Role: Primary Care Nurse Name: Ira Garnett Position: [facility] RN Supv Member Role: Primary Care Nurse Name: Corinna Fajardo RN Position: [facility] AMB Nurse Member Role: Primary Care Nurse Name: Ira Apodaca RN Position: [facility] ED RN W/OE and Tasks Member Role: Primary Care Nurse Name: Idania More RN Position: [facility] RN Member Role: Primary Care Nurse Name: Lian Joy RN Position: [facility] RN Member Role: Primary Care Nurse Name: Nikkie Sommers RN Position: [facility] RN Supv Member Role: Primary Care Nurse Name: Jasmine Ortega NP Position: [facility] Associate Professional Member Role: Primary Care Nurse Address: Address: [address] [place] [address] Name: Rivka Cook RN Position: [facility] RN Member Role: Primary Care Nurse Name: Daisy Brower RN Position: [facility] RN Member Role: Primary Care Nurse Name: Kimberly Skinner RN Position: [facility] RN Member Role: Primary Care Nurse Name: Abhishek Johnson RN Position: [facility] RN Member Role: Primary Care Nurse Name: Lani Torres RN Position: [facility] RN Member Role: Primary Care Nurse Name: Lesia Cuevas MD Position: [facility] Resident Member Role: PCP Address: Address: [address] [place] [address]- Name: Rene Pham RN Position: [facility] Outreach Member Role: Primary Care Nurse Name: Barbara Rae RN Position: [facility] AMB Nurse Member Role: Primary Care Nurse Name: Ina Renee RN Position: [facility] RN Member Role: Primary Care Nurse Name: Jeramie Rivers RN Position: [facility] Outreach Member Role: Primary Care Nurse Name: Sabiha Torres RN Position: [facility] RN Member Role: Primary Care Nurse Name: Yesica Delong RN Position: [facility] ED RN W/OE and Tasks Member Role: Primary Care Nurse Name: Paula Earl RN Position: [facility] RN Member Role: Primary Care Nurse Name: Susan Miller RN Position: [facility] ED RN W/OE and Tasks Member Role: Primary Care Nurse Name: Pao Key Position: [facility] RN Member Role: Primary Care Nurse Name: Maris Trevino RN Position: [facility] ED RN W/OE and Tasks Member Role: Primary Care Nurse Name: Steph Gordillo RN Position: [facility] OB RN Member Role: Primary Care Nurse Name: Rene Ramos DO Position: [facility] Renal MD Member Role: Lifetime Consulting Physician Address: Address: [address] [place], [place] [address] [place] [place] [address]- Name: Ryder Matthews Position: [facility] RN Member Role: Primary Care Nurse Name: Mary Correia RN Position: [facility] ED RN W/OE and Tasks Member Role: Primary Care Nurse Name: Tierra Razo RN Position: [facility] RN Member Role: Primary Care Nurse Name: Librado Saucedo RN Position: [facility] ED RN W/OE and Tasks Member Role: Primary Care Nurse Name: Laron Davenport III, RN Position: [facility] RN Member Role: Primary Care Nurse Name: Danya Govea RN Position: [facility] RN Member Role: Primary Care Nurse Name: Idania Millard RN Position: [facility] RN Member Role: Primary Care Nurse Name: Blake Grant RN Position: [facility] SN RN Member Role: Primary Care Nurse Name: Mariella Ojeda RN Position: [facility] RN Member Role: Primary Care Nurse Name: Cari Khan RN Position: [facility] RN Member Role: Primary Care Nurse Name: Dequan Elliott RN Position: [facility] SN RN Member Role: Primary Care Nurse Name: Esmer Rankin RN Position: [facility] AMB Nurse Member Role: Primary Care Nurse Name: Karuna Travis RN Position: [facility] RN Member Role: Primary Care Nurse Name: Suzanna Timmons RN Position: [facility] AMB Nurse Member Role: Primary Care Nurse Name: Juno Torres RN Position: [facility] Onco RN Member Role: Primary Care Nurse Name: Yojana Dior RN Position: [facility] RN Member Role: Primary Care Nurse Name: Corby Lester RN Position: [facility] RN Member Role: Primary Care Nurse Name: Farideh Balderas RN Position: [facility] Transfer Table Operator Member Role: Primary Care Nurse Name: Roxana Ann RN Position: [facility] Onco RN Member Role: Primary Care Nurse Name: Vanessa Shelton RN Position: [facility] RN Member Role: Primary Care Nurse Name: Derick Calixto RN Position: [facility] RN Member Role: Primary Care Nurse Name: Fariba Bradley RN Position: [facility] RN Member Role: Primary Care Nurse Name: Fariba Ornelas RN Position: [facility] NEO RN W/OE and Tasks Member Role: Primary Care Nurse Name: Steph Tierney RN Position: [facility] RN Member Role: Primary Care Nurse Name: Portia Baires RN Position: [facility] SN RN Member Role: Primary Care Nurse Name: Adamaris Ahmadi RN Position: [facility] NEO RN W/OE and Tasks Member Role: Primary Care Nurse Name: Leny Shanks RN Position: [facility] RN Supv Member Role: Primary Care Nurse Name: Steph Smith RN Position: [facility] RN Member Role: Primary Care Nurse Name: Casandra Robbins RN Position: [facility] RN Supv Member Role: Primary Care Nurse Name: Maris Crowell RN Position: [facility] RN Member Role: Primary Care Nurse Name: Coni Romero LPN Position: [facility] RN Member Role: Primary Care Nurse Name: Abigail Rabago RN Position: [facility] RN Member Role: Primary Care Nurse Name: Halina Burger RN Position: [facility] Onco RN Member Role: Primary Care Nurse Name: Linda Lockwood RN Position: [facility] Hospital Transfer Table Operator Member Role: Primary Care Nurse Name: Dedra Chatman RN, I Position: [facility] RN Member Role: Primary Care Nurse Care Team Related Persons Name: JACKIE ALANIZ Address: [address] [place] [address] Name: UJNO MENA Address: [address] [place] [address] Name: JOVITA GALARZA Address: [address] [place] [address] Name: KARL GALARZA Address: home [address] [place] [address] Name: EZEKIEL GALARZA Address: [address] [place] [address] Name: MICHAEL BARRETT Address: home [address] [place] [address] Name: SHAD TUBBS Address: home [address] [place] [id number]
--- OUTSIDE RECORDS SUMMARY | 2023-07-11 03:26 | XMS_ITS | Continuity of Care Document ---
Author Organization [facility] ter Address [address] [place] [id number]- Care Team Providers Care Button Clamper Name Role Phone Lesia Cuevas MD Primary Care Physician Encounter [facility] [place] ACCT R [id number] Date(s): 04/30/23 - 05/05/[address] [address]- Discharge Disposition: A-D/C Home Attending Physician: Farhat Brizuela MD Admitting Physician: Ziggy Fuentes MD Referring Physician: Not on Staff, Referring [...] Comment: normal saline diluent added lot number [id number] expires 07/23/2022 2Result Comment: Afluria Medications allopurinol 100 mg oral tablet 100 mg, 1, tablet, By Mouth, Daily, # 90 tablet, Refills 11, Tot. Refills 11, Maintenance, 03/05/2411:43:00 EST, Route to Pharmacy Electronically, [facility]/pharmacy #[id number], Partial fill upon patient request if the prescription is for a schedule II opioid d... Start Date: 03/05/23 Status: Ordered apixaban Starter Pack 5 mg oral tablet See Instructions, Take to 2 tablets by mouth 2 times a day for 3 days and then start taking 1 tablet by mouth 2 times a day from 05/09/2023, # 60 each, 3 Refills, Maintenance, 05/05/23 12:30:00 EDT, Tablet, [facility], Partial fill upon... Start Date: 05/05/23 Status: Ordered colchicine 0.6 mg oral tablet 12 each, 0 Refill(s), PLEASE SEE ATTACHED FOR DETAILED DIRECTIONS, Refills 0, 04/30/23 17:17:00 EST, Partial fill upon patient request if the prescription is for a schedule II opioid drug. Start Date: 04/30/23 Status: Ordered Dilaudid Inj 2 mg, Injection, IV Push Slowly, Every 4 hours, Hold for: Sedation, PRN for Pain , Severe, Routine,05/02/23 11:54:00 EST Start Date: 05/02/23 Stop Date: 05/05/23 Status: Discontinued folic acid 1 mg oral tablet 1 mg, 1, tablet, By Mouth, Daily, # 30 tablet, Refills 0, Tot. Refills 0, Maintenance, 05/12/22 15:17:00 EDT, Route to Pharmacy Electronically, [facility]/pharmacy #[id number], Partial fill upon patient request if [...] days, # 14 tablet, 0 Refills, Acute 05/07/23 16:23:00 EDT, 04/30/23 16:23:00 EST, Tablet, [facility]/pharmacy #[id number], Partial fill upon patient request if the prescription is for a schedule II opioid drug., 163,... Start Date: 04/30/23 Stop Date: 05/07/23 Status: Ordered LORazepam 1 mg oral tablet 1 tablet = 1 mg, By Mouth, 2 times a day, for 7 days, # 14 tablet, 0 Refills, Acute 05/14/23 16:23:00 EDT, 05/07/23 16:23:00 EDT, Tablet, [id number], Partial fill upon patient request if the prescription is for a schedule II opioid drug., 162,... Start Date: 05/07/23 Stop Date: 05/14/23 Status: Ordered omeprazole 20 mg oral enteric [...] # 84 tablet, 0 Refills, Hard Stop 05/06/23 18:52:00 EDT, 04/29/23 18:52:00 EST, Tablet, [id number], Partial fillupon patient request if the prescription is for a s... Start Date: 04/29/23 Stop Date: 05/06/23 Status: Ordered oxyCODONE 10 mg oral tablet 2 tablet = 20 mg, By Mouth, Every 4 hours, PRN as needed for pain, # 84 tablet, 0 Refills, Maintenance, 05/06/23 18:52:00 EDT, Tablet, [id number], Partial fill upon patient request if the prescription is for a schedule II opioid drug., 162, cm... Start Date: 05/06/23 Stop Date: 05/13/23 Status: Ordered oxyCODONE 5 mg oral tablet 168 each, 0 Refill(s), 4 TABLET BY MOUTH EVERY 4 HOURS,X7 DAYS NEEDED FOR SEVERE PAIN, Refills 0, 04/30/23 17:17:00 EST, Partial fill upon patient request if the prescription is for a schedule II opioid drug. Start Date: 04/30/23 Status: Ordered Problem List Condition Confirmation Course [...] for Microbiology Reports Name Date Blood Culture 04/29/23 Blood Culture #2 04/29/23 Microbiology Reports TEST:Blood Culture STATUS:Auth (Verified) BODY SITE: SOURCE:Blood COLLECTED DATE/TIME:04/29/23 2:38 PM Blood Culture SPECIMEN DESCRIPTION : BLOOD RAC SPECIAL REQUESTS : NONE CULTURE : NO GROWTH 5 DAYS. REPORT STATUS : FINAL 05/04/2023 TEST:Blood Culture, Second Order STATUS:Auth (Verified) BODY SITE: SOURCE:Blood COLLECTED DATE/TIME:04/29/23 2:38 PM Blood Culture, Second Order SPECIMEN DESCRIPTION : BLOOD LAC SPECIAL REQUESTS : NONE CULTURE : NO GROWTH 5 DAYS. REPORT STATUS : FINAL 05/04/2023 Radiology Reports * Exam Date Time Procedure Performing Provider Status 04/30/23 8:44 PM US Doppler Ext Lower Venous Bilat Jimena son Nerissa; Auth (Verified) Notes: (US Doppler Ext Lower Venous Bilat) Reason For Exam: PE patient;Pain/Tenderness Extremities RESULT: US Doppler Ext Lower Venous Bilat US Doppler Ext Lower Venous Bilat Reason: Pain Tenderness Extremities; PE patient; Clinical Question(s): Thrombosis COMPARISON: None IMAGING TECHNIQUE: Ultrasound of the veins from the groin through the calf was performed using grayscale, color, and spectral Doppler ultrasound assessing for complete compressibility and normal flowcharacteristics. FINDINGS: RIGHT LOWER EXTREMITY: Common femoral vein: Patent. No thrombosis. Femoral vein: Patent. No thrombosis. Popliteal vein: Patent. No thrombosis. Gastrocnemius veins: The visualized portions are patent without evidence of thrombosis. Peroneal veins: The visualized portions are patent without evidence of thrombosis. Posterior tibial veins: The visualized portions are patent without evidence of thrombosis. LEFT LOWER EXTREMITY: Common femoral vein: Patent. No thrombosis. Femoral vein: Patent. No thrombosis. Popliteal vein: Patent. No thrombosis. Gastrocnemius veins: The visualized portions are patent without evidence of thrombosis. Peroneal veins: The visualized portions are patent without evidence of thrombosis. Posterior tibial veins: The visualized portions are patent without evidence of thrombosis. OTHER FINDINGS: None. IMPRESSION: No evidence of deep venous thrombosis. WSN: [id number] Ordering Physician: Gianfranco Murphy Dictated By: Lm Harper MD Dictated Date/Time: 04/30/23 8:53 pm Reviewed By: Lm Harper MD Signed By: Lm Harper MD Signed Date/Time: 04/30/23 8:53 pm Transcribed By: PRASHANT Transcribed Date/Time: 04/30/23 8:53 pm * Exam Date Time Procedure Performing Provider Status 04/29/23 8:[address] Abd/Pelvis W/ IV Contrast Only Marta Elliott; Margaret (Verified) Notes: (CT Abd/Pelvis W/ IV Contrast Only) Reason For Exam: Pain RESULT: CT Abd/Pelvis W/ IV Contrast Only EXAMINATION: CT Angio Chest, CT Abd/Pelvis W/ IV Contrast Only INDICATION: Hx of Present Illness: from out infusion center, received Dilaudid for SCC, was unresponsive, hypoxic 80%, RR 6, ACCOUNT ENGINEER gave 0.1mg narcan; Reason: Other:; Chest Pain; Clinical Question(s):Pulmonary Embolism; Order Comment: TECHNIQUE: Spiral CTA of the chest was performed after rapid IV contrast administration without cardiac gating triggered by an SHAKILA on the main pulmonary artery. Spiral CT of the abdomen and pelvis was then performed in the portal venous phase. Images are formatted in multiple planes using 2-D multiplanar and 3-D maximum intensity projection. 100 cc of Omnipaque 300 was administered intravenously.Weight-based protocol using automatic tube modulation was used to optimize exposure parameters. CTDIvol Body: 8.00 mGy, DLP Body: 911 mGy*cm. (accession [id number]), CTDIvol Body: 11.80 mGy, DLP Body: 635 mGy*cm. (accession [id number]) COMPARISONS: Chest CT dated 07/19/2020, CT abdomen/pelvis dated 09/11/2025. ANGIOGRAPHIC FINDINGS: Acute segmental and subsegmental pulmonary embolism, most significant in lower lobes. No interventricular septal bowing or reflux of contrast into the IVC. There is evidence of right heart strain andfindings meet CT criteria for submassive pulmonary embolism. Dilated main pulmonary artery measuring 3.6 cm, suggestive of pulmonary hypertension. No acute aortic abnormality seen on this study performed without cardiac gating. Vasculature of the abdomen and pelvis was imaged in the venous phase. No abdominal aortic aneurysm.No acute vascular findings. There are mild atherosclerotic calcifications. NON-ANGIOGRAPHIC FINDINGS: Assistant Women'S Soccer Coach View Findings, Lines and Tubes: None. Trachea and Airways: Patent without evidence of tracheal or endobronchial lesion. Lungs and Pleura: Limited evaluation of the lungs for fine details due to breathing motion artifact. There are emphysematous changes. Bibasilar atelectatic changes and subpleural fibrosis. No effusion or pneumothorax. Mediastinum and radha: No mass or hematoma. No mediastinal or hilar lymphadenopathy. Esophagus is patulous. Distal esophageal wall is mildly thickened. Heart: Heart is normal in size. No pericardial effusion. Chest Wall Soft Tissues: Normal. Diaphragm: No significant abnormality. Liver: Periportal edema. Left liver lobe is enlarged. No suspicious liver lesion is seen. Gallbladder: Absent consistent with prior cholecystectomy. Bile ducts: Chronic extrahepatic biliary ductal dilatation is likely due to postcholecystectomy state. Spleen: Normal. Pancreas: Normal. Adrenal glands: Normal. Kidneys and ureters: Kidneys are lobulated and demonstrates heterogeneous enhancement, somewhat similar to prior CT from 2016, which may be related to foci of cortical infarcts. No hydronephrosis, stones, or suspicious masses. Bladder: Normal. Reproductive organs: There is vaginal mucosal hyperenhancement with fluid in the lumen. There are prominent bilateral parametrial vessels. Stomach, small bowel, and large bowel: Normal. Appendix: Normal. Peritoneum and retroperitoneum: No ascites or pneumoperitoneum. No omental or mesenteric lesions. Lymph nodes: No enlarged lymph nodes. Abdominal and pelvic wall: Fat-containing periumbilical hernia. Calcified injection granulomas in bilateral buttocks. Bones: No acute abnormality. Increased bony density throughout the visualized skeleton without focal abnormalities. IMPRESSION: 1. Acute bilateral segmental and subsegmental pulmonary embolism. Findings meet CT criteria for submassive PE. However, please note that asymmetric right ventricular enlargement was present on prior CT from 2020 and therefore it could indicate chronic right heart dysfunction. 2. Mild distal esophagitis. 3. Vaginal mucosal hyperenhancement with fluid in the lumen is suggestive of vasculitis. Follow-up with gynecology is recommended to exclude neoplastic process. 4. Bilateral parametrial prominent vasculature, nonspecific and can be seen with pelvic congestion syndrome. 5. Additional chronic findings as detailed above. The impression above was relayed to Jia Hernandez DO by Dr. Travon Ramires via [employer] on04/29/2023 at 9:29 PM. WSN: [id number] Ordering Physician: Odessa Carpio Dictated By: Travon Ramires MD Dictated Date/Time: 04/29/23 9:57 pm Reviewed By: Travon Ramires MD Signed By: Travon Ramires MD Signed Date/Time: 04/29/23 9:57 pm Transcribed By: PRASHANT Transcribed Date/Time: 04/29/23 9:29 pm * Exam Date Time Procedure Performing Provider Status 04/29/23 8:[address] Angio Chest Marta Pascal; Auth (Ve rified) Notes: (CT Angio Chest) Reason For Exam: Chest Pain;Other: RESULT: CT Angio Chest EXAMINATION: CT Angio Chest, CT Abd/Pelvis W/ IV Contrast Only INDICATION: Hx of Present Illness: from out infusion center, received Dilaudid for SCC, was unresponsive, hypoxic 80%, RR 6, ACCOUNT ENGINEER gave 0.1mg narcan; Reason: Other:; Chest Pain; Clinical Question(s):Pulmonary Embolism; Order Comment: TECHNIQUE: Spiral CTA of the chest was performed after rapid IV contrast administration without cardiac gating triggered by an SHAKILA on the main pulmonary artery. Spiral CT of the abdomen and pelvis was then performed in the portal venous phase. Images are formatted in multiple planes using 2-D multiplanar and 3-D maximum intensity projection. 100 cc of Omnipaque 300 was administered intravenously.Weight-based protocol using automatic tube modulation was used to optimize exposure parameters. CTDIvol Body: 8.00 mGy, DLP Body: 911 mGy*cm. (accession [id number]), CTDIvol Body: 11.80 mGy, DLP Body: 635 mGy*cm. (accession [id number]) COMPARISONS: Chest CT dated 07/19/2020, CT abdomen/pelvis dated 09/11/2025. ANGIOGRAPHIC FINDINGS: Acute segmental and subsegmental pulmonary embolism, most significant in lower lobes. No interventricular septal bowing or reflux of contrast into the IVC. There is evidence of right heart strain andfindings meet CT criteria for submassive pulmonary embolism. Dilated main pulmonary artery measuring 3.6 cm, suggestive of pulmonary hypertension. No acute aortic abnormality seen on this study performed without cardiac gating. Vasculature of the abdomen and pelvis was imaged in the venous phase. No abdominal aortic aneurysm.No acute vascular findings. There are mild atherosclerotic calcifications. NON-ANGIOGRAPHIC FINDINGS: Assistant Women'S Soccer Coach View Findings, Lines and Tubes: None. Trachea and Airways: Patent without evidence of tracheal or endobronchial lesion. Lungs and Pleura: Limited evaluation of the lungs for fine details due to breathing motion artifact. There are emphysematous changes. Bibasilar atelectatic changes and subpleural fibrosis. No effusion or pneumothorax. Mediastinum and radha: No mass or hematoma. No mediastinal or hilar lymphadenopathy. Esophagus is patulous. Distal esophageal wall is mildly thickened. Heart: Heart is normal in size. No pericardial effusion. Chest Wall Soft Tissues: Normal. Diaphragm: No significant abnormality. Liver: Periportal edema. Left liver lobe is enlarged. No suspicious liver lesion is seen. Gallbladder: Absent consistent with prior cholecystectomy. Bile ducts: Chronic extrahepatic biliary ductal dilatation is likely due to postcholecystectomy state. Spleen: Normal. Pancreas: Normal. Adrenal glands: Normal. Kidneys and ureters: Kidneys are lobulated and demonstrates heterogeneous enhancement, somewhat similar to prior CT from 2016, which may be related to foci of cortical infarcts. No hydronephrosis, stones, or suspicious masses. Bladder: Normal. Reproductive organs: There is vaginal mucosal hyperenhancement with fluid in the lumen. There are prominent bilateral parametrial vessels. Stomach, small bowel, and large bowel: Normal. Appendix: Normal. Peritoneum and retroperitoneum: No ascites or pneumoperitoneum. No omental or mesenteric lesions. Lymph nodes: No enlarged lymph nodes. Abdominal and pelvic wall: Fat-containing periumbilical hernia. Calcified injection granulomas in bilateral buttocks. Bones: No acute abnormality. Increased bony density throughout the visualized skeleton without focal abnormalities. IMPRESSION: 1. Acute bilateral segmental and subsegmental pulmonary embolism. Findings meet CT criteria for submassive PE. However, please note that asymmetric right ventricular enlargement was present on prior CT from 2020 and therefore it could indicate chronic right heart dysfunction. 2. Mild distal esophagitis. 3. Vaginal mucosal hyperenhancement with fluid in the lumen is suggestive of vasculitis. Follow-up with gynecology is recommended to exclude neoplastic process. 4. Bilateral parametrial prominent vasculature, nonspecific and can be seen with pelvic congestion syndrome. 5. Additional chronic findings as detailed above. The impression above was relayed to Jia Hernandez DO by Dr. Travon Ramires via [employer] on04/29/2023 at 9:29 PM. WSN: [id number] Ordering Physician: Odessa Carpio Dictated By: Travon Ramires MD Dictated Date/Time: 04/29/23 9:57 pm Reviewed By: Travon Ramires MD Signed By: Travon Ramires MD Signed Date/Time: 04/29/23 9:57 pm Transcribed By: PRASHANT Transcribed Date/Time: 04/29/23 9:29 pm * Exam Date Time Procedure Performing Provider Status 04/29/23 4:[address] Head/Brain W/O Contrast Magalys De Dios na; Auth (Verified) Notes: (CT Head/Brain W/O Contrast) Reason For Exam: Headache(s) RESULT: CT Head/Brain W/O Contrast CT Head/Brain W/O Contrast INDICATION: Hx of Present Illness: from out infusion center, received Dilaudid for SCC, was unresponsive, hypoxic 80%, RR 6, ACCOUNT ENGINEER gave 0.1mg narcan; Reason: Headache(s); Clinical Question(s): Hematoma TECHNIQUE: Noncontrast head CT using axial technique and reconstructed in axial and coronal planes.Iterative reconstruction techniques are used to optimize dose and image quality. CTDIvol Head: 48.30 mGy, DLP Head: 773 mGy*cm. COMPARISON: 03/02/2018. FINDINGS: Assistant Women'S Soccer Coach view findings, lines and tubes: Partially visualized right mandibular hardware. BRAIN AND EXTRA-AXIAL SPACES: No parenchymal hemorrhage, midline shift, or mass effect. Stephens-white matter differentiation is wellpreserved. No acute infarct. Ventricles, sulci, and basilar cisterns are normal. No white matter lesions. No subarachnoid hemorrhage. No subdural or epidural collection. CALVARIUM, SKULL BASE, AND SOFT TISSUES: No fractures or suspicious bony lesions. The paranasal sinuses and mastoid air cells are clear. Visualized orbits and globes are intact. The extracranial soft tissues are unremarkable. IMPRESSION: No acute intracranial pathology. WSN: [id number] Ordering Physician: Odessa Carpio Dictated By: Travon Ramires MD Dictated Date/Time: 04/29/23 5:03 pm Reviewed By: Travon Ramires MD Signed By: Travon Ramires MD Signed Date/Time: 04/29/23 5:03 pm Transcribed By: PRASHANT Transcribed Date/Time: 04/29/23 4:59 pm Vital Signs Most recent to oldest [Reference Range]: 1 2 3 Height 162 cm (05/05/23 5:33 AM) 162 cm (05/04/23 9:41 PM) 162 cm (05/04/23 1:52 PM) Weight 54.4 kg (05/01/23 5:12 PM) 59.09 kg (05/01/23 4:00 AM) 59.09 kg (04/30/23 5:13 PM) Oxygen Saturation [94-100 %] 100 % (05/05/23 5:33 AM) 90 % *L* (05/04/23 9:41 PM) 92 % *L* (05/04/23 1:52 PM) Pulse Rate [55-90 bpm] 62 bpm (05/05/23 5:33 AM) 73 bpm (05/04/23 9:41 PM) 91 bpm *H* (05/04/23 1:52 PM) Body Mass Index [18.5-24.99 kg/m2] 20.73 kg/m2 (05/01/23 5:12 PM) 22.52 kg/m2 (04/30/23 5:13 PM) Blood Pressure [90-138/55-84 mm Hg] 110/66mm Hg (05/05/23 5:33 AM) 114/59mm Hg (05/04/23 9:41 PM) 115/40mm Hg (05/04/23 1:52 PM) Respiratory Rate [16-30 br/min] 16 br/min (05/05/23 10:09 AM) 18 br/min (05/05/23 5:33 AM) 18 br/min (05/05/23 1:54 AM) Temperature [96.8-100.4 DegF] 98.8 DegF (05/05/23 5:33 AM) 97.5 DegF (05/04/23 9:41 PM) 99.1 DegF (05/04/23 1:52 PM) Liters per Minute 2 L/min (05/05/23 5:33 AM) 2 L/min (05/04/23 9:41 PM) 3 L/min (05/04/23 1:52 PM) Mode of Delivery (Oxygen) Nasal cannula (05/05/23 5:33 AM) Nasal cannula (05/04/23 9:41 PM) Nasal cannula (05/04/23 1:52 PM) Blood pressure sites Arm, left (05/05/23 5:33 AM) Arm, left (05/04/23 9:41 PM) Arm, left (05/04/23 1:52 PM) Temperature Route Oral (05/05/23 5:33 AM) Oral (05/04/23 9:41 PM) Oral (05/04/23 1:52 PM) Dry Weight 59.09 kg (04/30/23 5:13 PM) Weight Obtained Via Bed scale (05/01/23 4:00 AM) Social History Social History Type Response Smoking Status Former smoker, quit more than 30 days ago entered on: 12/26/20 Sex Admission evaluation note * Bela ARCHIBALD, Betsy Velasqeuz: PERFORM Event Display: Admission Note Authored Date: Patient: ??JOSE GALARZA ? Age:??53 Years?Sex:??Female?:??1970?? History of Present Illness Patient is a 53-year-old female with history of SCD and hx of sickle cell crises with multiple admissions, COVID-pneumonia in 21 described to patient.?? He hypoxic respiratory failure with eventual trach and PEG placement, status post exchange transfusion.?? She was getting an IV Dilaudid infusion at the infusion center outpatient for treatment of his sickle cell crisis when patient well-developed acute hypoxia down to the 50s.?? She was alert and oriented prior to coming to the clinic.?? Patient had received 2 mg of IV Dilaudid 25 mg for Benadryl.?? On evaluation by RT, she was found to be difficult to arouse requiring noxious stimuli was not able to stay awake.?? She was found to also have periods of apnea and desaturations to the 80s.?? She was given an 0.1 mg IM??Narcan found to have improved response.? However she did??continued to become altered and was transferred downstairs to the ED.?? At time she was found to be febrile to 1-1.3, tachycardic to 116 with blood pressure 90/60 hypoxic requiring 4L nasal cannula.?? Due to concern for sepsis, patient was started on IV vancomycin and Zosyn as well as IV Tylenol.?? She was given 1 L IV fluid bolus which improved hypotension.?? Bedside ultrasoundwas significant for a collapsed IVC.?? Due to her altered mental status, CT head of brain was obtained.?? This had no concern for any intracranial bleeding or other acute pathologies.?? CTA of chest abdomen pelvis was obtained to assess for PE, as well as potential source of infection.?? She was found to have acute segmental subsegmental pulmonary embolus with signs of right heart strain consistent with submassive pulmonary embolism.?? Also had hypertension which is known.?? Additional findingsinclude emphysematous changes of lungs with bibasilar atelectatic changes and subpleural fibrosis.?? Patient was found to have a patulous esophagus with a mildly thickened distal esophageal wall.?? Liver was enlarged with some periportal edema.?? There is noted vaginal mucosal hyperenhancement withfluid in the abdomen and prominent bilateral parametrial vessels. ?? Labs were obtained, VBG was significant for pH of 7.33, pCO2 47, pO2 32 and base excess of -1.?? CBC was significant for white blood cell count of 16.8, hemoglobin/hematocrit of 7.2/19.2, platelet count 105 with an RDW of 59.8. RPI significant at 1.8.?? Type and screen was obtained, BMP significantfor elevated creatinine of 1.2, alkaline phosphatase of 225, 94, transaminitis, elevated total bilirubin of 3.9.?? LDH was obtained but this hemolyzed, haptoglobin was low at -10.?? Troponins remained flat at 14 and 15.?? Venous ammonia was 51.?? Viral respiratory panel was negative, UA was obtained and was significant for trace hemoglobin trace leukocytes slight bacteria and 9 white blood cells. Enoxaparin was ordered;? Patient had improvement of fever to 90.6, as well as improvement respiratory rate from 12 6 this morning to 21.?? Blood pressure improved does not stay 103/64, patient is currently breathing at 100% O2 on 9 L nonrebreather. She was given a one time dose of 90mg of Lovenox SQ.? On my exam, patient is??huddled over??in bed??with nonrebreather in place.?She does respond to??vocal commands by making??noises.?? She is unable to answer due to the pain.?? She does??indicatethat she is cold when asked.?? Patient is unable to??recall her name,??where she is or the date. Review of Systems Unable to obtain due to mental status.?? Objective ? Vital Signs?? Temperature: 98.7 DegF (04/30/23 00:20:00) Temperature Route: Oral (04/30/23 00:20:00) Pulse Rate: 63 bpm (04/30/23 00:20:00) Respiratory Rate:??14 br/min??Low (04/30/23 00:20:00) Vented: No (04/30/23 00:20:00) Systolic Blood Pressure: 104 mm Hg (04/30/23 00:20:00) Diastolic Blood Pressure: 65 mm Hg (04/30/23 00:20:00) Blood pressure sites: Arm, right (04/29/23 21:06:00) Mean Arterial Pressure: 65 mm Hg (04/29/23 15:53:00) Pulse Pressure: 39 mm Hg (04/30/23 00:20:00) Oxygen Saturation: 100 % (04/30/23 00:20:00) Liters per Minute: 9 L/min (04/30/23 00:20:00) Mode of Delivery (Oxygen): Nonrebreather mask (04/30/23 00:20:00) FiO2: 40 % (04/29/23 13:28:00) Early Warning Score: 9 (04/30/23 00:23:40) ? Physical Exam Constitutional: Appears ill/lethargic?? Mental Status: AAOx0-1. responds to voice but unable to vocalize or follow commands.?? Head: Normocephalic. Eyes: Pupils are equal, round and reactive to light. 2-3mm bilaterally?? Ear, Nose and Throat: Oropharynx clear, mucous membranes appear dry.?? Neck: Supple, Full range of motion. Respiratory: Clear to auscultation. No wheezing, rales or rhonchi. Cardiovascular: S1 S2 regular. No murmurs, rubs or gallops. No pedal edema or swelling.?? Gastrointestinal: Abdomen soft, non-tender, non-distended. Normal bowel sounds. Neurologic: Unable??to assess??fully?? Skin: No rashes or lesions. No petechiae or purpura.?? Musculoskeletal: No cyanosis or clubbing. No gross deformities. Assessment/Plan Assessment:??Patient is a 51-year-old female with history of sickle cell disease??crises with multiple admissions, and COVID-pneumonia in 2020??complicated by acute hypoxic respiratory failure needing intubation??and eventual trach and PEG placement,??now removed,??who was transferred to the ED from the inpatient center in the setting of??altered mental status send??for dyspnea??and hypoxia??concern for acute hypoxic respiratory failure,??found to be??meeting SIRS criteria and??incidentally found??submassive bilateral pulmonary embolism.?Likely??mental status??is likely secondary to sepsis and??acute hypoxemia,??patient meets criteria for acute chest syndrome at this time.?Will treat for broad-spectrum antibiotics as well as??IV fluids for ACS.??Will hold??pain control and sedating medications in setting of AMS. ?? Altered mental status (R41.82):?? Acute hypoxic respiratory failure (J96.01):?? Pulmonary emboli (I26.99):?? Sickle cell crisis (D57.00):?? Sickle cell anemia (D57.1):?? Patient was receiving??outpatient therapy for sickle cell pain crisis when she became??altered and hypoxic to the 50s.?? Mental status and respirations improved after one-time 0.1 mg??IM Narcan dose.?? However she became altered again and required transfer to the ED.?? She was found to be sepsis cri teria??with resuscitated with 1 L fluids and??started on IV antibiotics.?? CT of the chest found??submassive pulmonary embolism??both lobes.?? No clear source of infection on CT abdomen pelvis.?? Blood cultures currently pending at this time, urinalysis??unremarkable for UTI. ??Patient overall still appears altered, very lethargic and tired requiring??oxygenation with??9 L on nonrebreather mask.?? Is consistent with acute chest syndrome??complicated by sepsis and acute??hypoxic respiratory failure. ??Likely due to be??secondary from electrolyte derangements or??elevated ammonia or diarrhea, patient did have??slightly elevated creatinine??could be in the setting of??known sickle cell disease. ?? Plan: -Continuous oxygen monitoring, continue??nonrebreather mask and wean as tolerated. ?Will keep patient n.p.o. due to altered mental status ?Will start IV fluids??D5 LR at 100 cc/h. ?Will continue broad-spectrum antibiotics with??Zosyn and vancomycin,??will additionally add??IV azithromycin for atypical coverage. ?Follow-up blood cultures -Will check??strep pneumo antigen??as well as??urine Legionella antigen??and MRSA swab.?? Will add on procalcitonin to help with??antibiotic downgrade once patient is more awake. -Ordered one-time 0.3 mg Narcan dosing, as well as as needed??0.2 mg IV Narcan for lethargy or??respiratory rate less than 12. -Recommend ordering spirometry once patient is more awake -Will consult hematology/oncology for recommendations regarding??anticoagulation for PE. -Hold home sedating medications (Ativan oxycodone??and gabapentin) in setting of AMS. ?? VTE Prophylaxis:??will need treatment for PE, received Lovenox in ED. Will defer therapy to heme/onc recommendations, but likely would benefit from heparin gtt ?? Code Status:??Full code ?Order Code Status:??Code Status Ordered ?? Ongoing Medical Necessity:??Acute hypoxic respiratory failure, weaning off of nonrebreather, improvement of mental status,??tolerance of??p.o. medications and pain control. Diet: NPO ?? Patient care discussed with Dr. Alfredo Cramer, PGY - 2 Internal Medicine/Pediatrics? (This document has been dictated using [employer] dictation software. Please do not hesitate to contact the author for clarification of any unintentional errors should it be needed.)? Histories Allergies Allergies ?(Active and Proposed Allergies [...] Sickle cell trait ? Medications Home Medications Allopurinol (allopurinol 100 mg oral tablet)?100?Milligram?1?tablet?By Mouth?Daily Durable Medical Equipment ([employer]ogen Portable Oxygen concentrator)?See Instructions?Chronic hypoxic respiratory failure (J96.11)For use ??at rest and with exertion at 6L/min Folic Acid (folic acid 1 mg oral tablet)?1?Milligram?1?tablet?By Mouth?Daily Gabapentin (gabapentin 300 mg oral capsule)?300?Milligram?1?capsule?By Mouth?3 times a day Lorazepam (LORazepam 1 mg oral tablet)?1?tab(s)?1?Milligram?By Mouth?2 times a day?for 7?Days Omeprazole (omeprazole 20 mg oral enteric coated capsule)?1?capsule?20?Milligram?By Mouth?Daily Oxycodone (oxyCODONE 10 mg oral tablet)?2?tab(s)?20?Milligram?By Mouth?Every 4 hours?as needed?as needed for pain?for 7?Days ? Results Recent Labs BLOOD BANK Blood Type O Positive ()?? 04/29/2023 14:13 Antibody Screen Negative ()?? 04/29/2023 14:13 ?? BLOOD COUNT & DIFF WBC 16.8 k/mm3 (High)?? 04/29/2023 14:38 RBC 2.13 m/mm3 (Low)?? 04/29/2023 14:38 Hgb 7.2 Gm/dL (Low)?? 04/29/2023 14:38 Hct 19.2 % (Critical)?? 04/29/2023 14:38 MCV 90.1 femtoliters ()?? 04/29/2023 14:38 MCH 33.8 pg ()?? 04/29/2023 14:38 MCHC 37.5 g/dL (High)?? 04/29/2023 14:38 Platelet Count 105 k/mm3 (Low)?? 04/29/2023 14:38 RDW-SD 59.8 femtoliters (High)?? 04/29/2023 14:38 MPV 12.4 femtoliters ()?? 04/29/2023 14:38 Nucleated RBC (Automated) 1.7 #/100 WBC'S ()?? 04/29/2023 14:38 Abs. NRBC 0.3 k/mm3 ()?? 04/29/2023 14:38 Abs. Neut 12.8 k/mm3 (High)?? 04/29/2023 14:38 Abs. Lymph 2.5 k/mm3 ()?? 04/29/2023 14:38 Abs. Lamb 1.2 k/mm3 (High)?? 04/29/2023 14:38 Abs. Eo 0.3 k/mm3 ()?? 04/29/2023 14:38 Neut % 75.0 % ()?? 04/29/2023 14:38 Lymph % 15.0 % ()?? 04/29/2023 14:38 Lamb % 7.0 % ()?? 04/29/2023 14:38 Eos % 2.0 % ()?? 04/29/2023 14:38 Band % 1.0 % ()?? 04/29/2023 14:38 RBC Morphology MODERATE ()?? 04/29/2023 14:38 Platelet Estimate MARKEDLY DECREASED ()?? 04/29/2023 14:38 Hemoglobin (POC) POC Cartridge 7.5 Gm/dL (Low)?? 04/29/2023 14:47 Hematocrit (POC) POC Cartridge 22 % (Low)?? 04/29/2023 14:47 Retic Count 9.5 % (High)?? 04/29/2023 18:30 Retic Count Corrected 3.6 % (High)?? 04/29/2023 18:30 Retic Production Index 1.8 % ()?? 04/29/2023 18:30 ?? BLOOD GAS pH Venous (POC) POC Cartridge 7.33 ()?? 04/29/2023 14:47 pCO2 Venous (POC) POC Cartridge 47.1 mm Hg ()?? 04/29/2023 14:47 pO2 Venous (POC) POC Cartridge 32 mm Hg (Low)?? 04/29/2023 14:47 Est Bicarbonate (POC) POC Cartridge 24.9 mmol/L ()?? 04/29/2023 14:47 % O2 Sat Venous (POC) POC Cartridge 56 ()?? 04/29/2023 14:47 Base Excess (POC) POC Cartridge NEGATIVE 1 ()?? 04/29/2023 14:47 Specimen Type - Blood Gas VENOUS ()?? 04/29/2023 14:47 ?? CARDIAC Nt-Probnp 546 pg/mL (High)?? 04/29/2023 21:59 High Sensitivity Troponin (HSTnT) 13 ng/L ()?? 04/29/2023 21:59 ?? CHEM GENERAL Sodium 137 mmol/L ()?? 04/29/2023 14:38 Potassium 4.7 mmol/L ()?? 04/29/2023 14:38 Chloride 103 mmol/L ()?? 04/29/2023 14:38 Bicarbonate Level 22 mmol/L ()?? 04/29/2023 14:38 Anion Gap 12 ()?? 04/29/2023 14:38 Sodium (POC) POC Cartridge 136 mmol/L ()?? 04/29/2023 14:47 Potassium (POC) POC Cartridge 4.4 mmol/L ()?? 04/29/2023 14:47 Glucose Level 84 mg/dL ()?? 04/29/2023 14:38 Glucose (POC) POC Cartridge 88 ()?? 04/29/2023 14:47 Glucose, POC 94 mg/dL ()?? 04/29/2023 13:58 BUN 14 mg/dL ()?? 04/29/2023 14:38 Creatinine-Blood 1.2 mg/dL (High)?? 04/29/2023 14:38 Estimated GFR Creatinine 53 ML/MIN/1.73 M2 ()?? 04/29/2023 14:38 Calcium, Ionized pH Corrected 1.21 mmol/L ()?? 04/29/2023 14:38 Ionized Calcium (POC) POC Cartridge 1.25 mmol/L ()?? 04/29/2023 14:47 Magnesium 1.9 mg/dL ()?? 04/29/2023 14:38 Protein, Total 6.9 Gm/dL ()?? 04/29/2023 18:30 Albumin 3.3 Gm/dL (Low)?? 04/29/2023 18:30 LDH HEMOLYZED units/L ()?? 04/29/2023 18:30 Alkaline Phosphatase 194 units/L (High)?? 04/29/2023 18:30 AST (SGOT) 89 units/L (High)?? 04/29/2023 18:30 ALT (SGPT) 31 units/L ()?? 04/29/2023 18:30 Bilirubin, Total 3.9 mg/dL (High)?? 04/29/2023 18:30 Bilirubin, Direct 1.2 mg/dL (High)?? 04/29/2023 18:30 Bilirubin, Indirect 2.7 mg/dL (High)?? 04/29/2023 18:30 Lactate 0.7 mmol/L ()?? 04/29/2023 18:30 ?? HEME OTHER Hold Lavender Top SPECIMEN DISCARDED AFTER 24 HOURS. ()?? 04/29/2023 21:59 ?? IMMUNOLOGY GENERAL Haptoglobin <10 mg/dL (Low)?? 04/29/2023 18:30 ?? MISC. CHEMISTRY Ammonia, Venous 51 ??mole/L ()?? 04/29/2023 18:30 ?? UA/URINALYSIS Appear/Color, Urine YELLOW ()?? 04/29/2023 20:05 Specific [place], Urine 1.010 ()?? 04/29/2023 20:05 pH, Urine 7.0 ()?? 04/29/2023 20:05 Albumin, Urine TRACE (Abnormal)?? 04/29/2023 20:05 Glucose, Urine NEGATIVE ()?? 04/29/2023 20:05 Ketones, Urine NEGATIVE ()?? 04/29/2023 20:05 Bilirubin, Urine NEGATIVE ()?? 04/29/2023 20:05 Hemoglobin, Urine TRACE (Abnormal)?? 04/29/2023 20:05 Nitrite, Urine NEGATIVE ()?? 04/29/2023 20:05 Leukocyte, Urine TRACE (Abnormal)?? 04/29/2023 20:05 Urobilinogen NORMAL mg/dL ()?? 04/29/2023 20:05 WBC's, Urine 9 /HPF (High)?? 04/29/2023 20:05 RBC's, Urine 1 /HPF ()?? 04/29/2023 20:05 Bacteria SLIGHT HPF (Abnormal)?? 04/29/2023 20:05 Mucus SLIGHT /LPF ()?? 04/29/2023 20:05 Hold Urine Culture Testing available 48 hours from time of collection. ()?? 04/29/2023 20:05 ?? VIROLOGY Influenza A PCR NEGATIVE ()?? 04/29/2023 14:50 Influenza B PCR NEGATIVE ()?? 04/29/2023 14:50 RSV PCR NEGATIVE ()?? 04/29/2023 14:50 COVID-19 PCR Specimen Source NASAL ()?? 04/29/2023 14:50 COVID-19 PCR Result NEGATIVE ()?? 04/29/2023 14:50 ? * Ziggy Fuentes MD: PERFORM Event Display: Admission Note Authored Date: [id number] Attending Attestation: I have seen and evaluated this patient.?? I have discussed the case and its management with the resident and agree with the findings and reagan documented in the resident's note.?? I?? will continue to provide care to this patient till 7 AMof the admitting date.?? 53-year-old female with a past medical history of sickle cell disease, sickle cell crisis history of COVID-pneumonia with a history of hypoxic respiratory failure , anemia and also recent discharge from the [facility] on 05/12 for sickle cell crisis due to pneumonia who went to the [facility] center for sickle cell crisis treatment but [employer]INE[employer] team was called because she was?? unresponsive.?? Respiratory rate was 6 and he was hypoxic in the low 80s.?? She was given IM Narcan and transferred to the ED for further evaluation.?? She received IV 2 mg Dilaudid along with Benadryl.?? He is on Ativan, oxycodone, gabapentin at her home.?? Initially she was difficult to arouse.?? There was slow response to IM Narcan.?? CT of the head ruled out any acute intracranial pathology.?? CT angio abdominal/pelvis showed acute bilateral segmental and subsegmental pulmonary embolism.?? Mild distal esophagitis.?? Lab workup showed high WBC count that could be reactive in nature due to sickle cell stable ch ronic anemia.?? Bilirubin was high consistent with sickle cell crisis.?? Patient was given subcu Lovenox.?She is febrile, hypoxic.?? For now we will continue broad-spectrum antibiotics along withazithromycin for atypical coverage.?? Will get MRSA swab and will narrow down antibiotics as per clinical improvement.?? She was given a full dose of therapeutic Lovenox that will cover her for 24 carlos rs rather than IV heparin drip.?? Will consider to have a transition to DOAC's at the time of discharge.?? Will follow-up with hematology for further recommendation.?? Will get a echocardiogram.? EKG study * Event Display: ECG 12-Lead Please click on pdf link to open report * Event Display: ECG 12-Lead Ventricular Rate: 83 BPM Atrial Rate: 83 BPM P-R Interval: 138 ms QRS Duration: 88 ms Q-T Interval: 406 ms QTC Calculation(Bazett): 477 ms P [place]: 69 degrees R [place]: 33 degrees T [place]: 55 degrees Normal sinus rhythm Nonspecific T wave abnormality Prolonged QT Abnormal ECG When compared with ECG of 10-MAY-2022 20:09, No significant change was found Confirmed by Davis Pike ([id number]) on 04/29/2023 11:12:38 PM [place]: Davis Pike [facility] * Event Display: Echocardiogram - Complete Authored Date: [id number] Transthoracic Echocardiography Report (TTE) Patient Demographics Patient Name JOSE GALARZA Date of Study 04/30/2023 Corporate Gender Female Facility Race Black Ethnicity Date of 1970 Height: 64.17 inches Age 53 year(s) Weight: 130.07 pounds Accession Number [id number] BSA: 1.63 m2 Room Number [id number] BMI: 22.21 kg/m2 Referring Physician Ziggy Farias MD, MD Physician Machine Umbrella Tipper Delfino Shine [facility] Fellow Halina Casarez DO Indications Pulmonary embolus. Clinical History ALTERED MENTAL STATUS SICKLE CELL SYNDROME HYPOXIA PUL EMBOLI Study Data Type of Study TTE procedure:Echo Complete-Doppler, Colorflow, M-Mode. Study Date04/30/2023 Start Time: 10:09 AM Study Location: [facility] – [place] Echo Study Status: Bedside Patient Status: Routine Technical Quality: Adequate Blood Pressure:96/46 mmHg EKG: Normal sinus rhythm HR: 79 bpm 2D Measurements LV Diastolic Dimension: 4.94 cm LV Systolic Dimension: 3.23 cm LV Septum Diastolic: 1.1 cm LV PW Diastolic: 1.18 cm AO Root Dimension: 3 cm RV Diastolic Dimension: 3.57 cm LA Dimension: 4 cm LA ESV (BP):93.34 ml LVOT Stroke Volume: 138.71 ml LA ESV Index: 57 ml/m2 Stroke Volume Index85.1 ml/m2 LVOT: 2.71 cm Cardiac Index:6.72 l/min/m2 Ascending Aorta:3.2 cm Doppler Measurements AV Peak Velocity: 186 cm/s MV Peak E-Wave: 68.1 cm/s AV Peak Gradient: 13.84 mmHg MV Peak A-Wave: 79.3 cm/s AV Mean Gradient: 6.38 mmHg MV E/A Ratio: 0.86 AV VTI:29.01 cm LVOT Peak Velocity: 148 cm/s LVOT VTI24.06 cm MV Deceleration Time: 201 msec AV Area (Continuity):4.78 cm2 TR Velocity:208 cm/s PV Peak Velocity: 117 cm/s TR Gradient:17.31 mmHg PV Peak Gradient: 5.48 mmHg E' Septal Velocity: 5.66 cm/s E' Lateral Velocity: 8.27 cm/s E/Med E':12.0318 E/Lat E':8.393631 Cardiac Anatomy Left Ventricle/Interventricular Septum The left ventricle is moderately dilated. The left ventricular wall thickness is mildly increased. The LV systolic function is vigorous. The left ventricular ejection fraction is 65-75 %. There are no regional wall motion abnormalities. Indeterminate diastolic function. The estimated cardiac index is 6.7 L/min/m2. Left Atrium/Interatrial Septum The left atrium is severely dilated. Aortic Valve The aortic valve is poorly visualized and morphology could not be assessed. The aortic valve leaflet opening is normal . There is no significant aortic regurgitation or stenosis. Mitral Valve There is mild mitral annular calcification. The mitral valve appears mildly thickened. Mitral leaflet excursion is normal. There is trace mitral regurgitation. There is no mitral stenosis. Aorta The ascending aorta and aortic root are normal in size. Right Ventricle The right ventricle is normal in size and function. Right Atrium The right atrium is normal in size. Pulmonic Valve The pulmonic valve is poorly visualized. There is trace pulmonic regurgitation. Tricuspid Valve The tricuspid valve is grossly normal. There is mild tricuspid valve regurgitation. Pumonary Artery An accurate pulmonary artery pressure could not be obtained. Venous Structures The inferior vena cava appears grossly normal. Pericardium/Extracardiac There is no significant pericardial effusion. Summary The left ventricle is moderately dilated. The left ventricular wall thickness is mildly increased. The LV systolic function is vigorous. The left ventricular ejection fraction is 65-75 %. There are no regional wall motion abnormalities. Indeterminate diastolic function. The estimated cardiac index is 6.7 L/min/m2. The left atrium is severely dilated. There is mild mitral annular calcification. The mitral valve appears mildly thickened. Mitral leaflet excursion is normal. There is trace mitral regurgitation. There is no mitral stenosis. The right ventricle is normal in size and function. Comparison Comparison is made to the study of August 10, 2020. Right ventricular function appears normal in current study. Unable to estimate pulmonary artery pressure. Left ventricle is moderately dilated by volume. Signature * Event Display: Echocardiogram - Complete Authored Date: [id number] Cardiology * Event Display: Cardiac Rhythm Strips Authored Date: [id number] Hospital Progress note * Keyshawn Noyola RN: PERFORM, SIGN, VERIFY Event Display: Progress Note Hospital Authored Date: [id number] Patient: JOSE GALARZA Age: 53 years Sex: Female : 1970 Associated Diagnoses: None Author: Keyshawn Noyola RN Findings Problem Related to Alteration in Comfort : Alteration in Comfort/new 05/05/2023 5:00 EDT Alteration in Comfort Related to Disease process Goals & Outcomes: Comfort Pt will report acceptable level of comfort & pain control, Pt will state importance of adhering to pain strategy regime, Pt will demonstrate necessary skills to manage pain, Non-verbal indicators will indicate comfort/pain control Interventions Implemented: Comfort Assess pain using appropriate pain scale/tools, Assess aggravating factors & prevent them accordingly BH Goals/Interventions, Comfort Yes Comfort, Problem Start 05/04/2023 3:14 Reviewed plan with, Comfort Patient Patient Progression, Comfort Pt progressing according to plan Comfort, Problem Ongoing Yes . Narrative/Incidental Pt AOX4. Pt reports continuous pain in chest stomach and legs. Pt getting IV pain meds every fours hours. Pt also reporting itchiness getting benadryl as well. Pt has been having incontinence which is new. Pt was up using bathroom a few days ago now using pull up. Pt lethargic sleeping most of night. Eating well with food bedside. Lungs sounds still having rhonchiwith non productive cough. Pt on but non compliant with nsal canula under nose and only using one side at a time. Pt bed lowest locked postion. Call [facility]. Safety maintained. . * Matt ARCHIBALD, Cale Gonzalez: PERFORM Event Display: Progress Note Hospital Authored Date: [id number] Patient: ??JOSE GALARZA ? Age:??53 Years?Sex:??Female?:??1970?? Subjective Seen and examined today No new events continued c/o pain Review of Systems Objective ?? Physical Exam Awake, alert, oriented Lungs: Clear to auscultation bilateral, no wheezing no rales Heart: Regular rate and rhythm, no murmur, no rub or gallop Abdomen: Soft, nontender, nondistended; Bowel sounds present Extremity: No edema cyanosis clubbing Neurological: No focal deficit Psychiatric: Normal mood and affect Assessment/Plan Assessment:??51 y/o female with history of sickle cell disease crises with multiple admissions, andCOVID-pneumonia in 2020 complicated by acute hypoxic respiratory failure needing intubation and eventual trach and PEG placement, now removed, who was transferred to the ED from the inpatient center in the setting of altered mental status send for dyspnea and hypoxia concern for acute hypoxic respiratory failure, found to be meeting SIRS criteria and incidentally found submassive bilateral pulmonary embolism. Likely mental status is likely secondary to sepsis and acute hypoxemia, patient meets criteria for acute chest syndrome at this time. Will treat for broad-spectrum antibiotics as well asIV fluids for ACS. Will hold pain control and sedating medications in setting of AMS. ?? Acute metabolic encephalopathy (G93.41) ??1. Altered mental status (R41.82) ??2. Acute hypoxic respiratory failure (J96.01) ??3. Sickle cell anemia (D57.1) ??4. Sickle cell crisis (D57.00) ??5. Pulmonary emboli (I26.99) ? Pulmonary emboli (I26.99): # Acute hypoxic respiratory failure (J96.01): Secondary to PE ??-Found to have new PE. Started on Lovenox and changed to Eliquis ?-Echo with normal eF, left atrium severely dilated, right ventricle is normal in size and function ??-No DVT on ultrasound of legs bilaterally ?? Plan: Will continue Eliquis ? # Acute metabolic encephalopathy (G93.41):Resolved ? SIRS: -Patient with fever and tachycardia Do not think has sepsis (sepsis ruled out) UTI: Questionable ?? Will continue??Zosyn ?? # Acute kidney injury: Creatinine 1.4 Resolved ? # Sickle cell crisis (D57.00): # Sickle cell anemia (D57.1): ??# Unconjugated bilirubinemia ??-Hemoglobin 6.6, previously recommended holding off on blood transfusion will get a goal of transfusion Repeat Hb dropped ?-Echo shows EF normal with no significant right heart strain s/p transfusion ?? Will give another unit of PRBC today ?? Thrombocytopenia: Platelet count 108 from 84 yesterday continue to monitor plt improved to 113 on Lovenox ?Diet: Regular diet ?Code status : Full code ?DVT prophylaxis : On Eliquisfor PE ? Discharge Planning:??Likley home tomorrow ? * Frantz Tejeda RN: PERFORM, MODIFY, SIGN, VERIFY Event Display: Progress Note Hospital Authored Date: Patient: JOSE GALARZA Age: 53 years Sex: Female : 1970 Associated Diagnoses: None Author: Frantz Tejeda RN Findings Evaluation Pt A&Ox4, VSS. Temp 101.4 this morning, given tylenol, last temp was 98.2. Pt WBC 16.3 this morning. Pt reporting pain 8-10/10 to lower legs and abdomen all 4 quad. Receiving dilaudid for relief.Pt skin intact with severe dryness and itchiness, and receiving bendaryl for relief. Pt has ronchi present in all lobes, non-prod cough, and dyspnea with exertion, receiving 3LNC, no respiratory distress. Pt last BM today, up to commode with stand-by asst. H/H stable. No cardiac distress noted. Plan of care ongoing, all safety measures in place.. Consult note * Josue ARCHIBALD, Joanne Gonzalez: PERFORM, MODIFY, MODIFY, MODIFY, MODIFY, MODIFY, MODIFY, MODIFY Event Display: Consultation Note Authored Date: [id number] Patient: ??JOSE GALARZA ? Age:??53 Years?Sex:??Female?:??1970?? Reason for Consult/Visit Sickle cell crisis, submassive PE Requesting Physician Betsy Cramer Primary Oncologist Hematology/Oncology History Patient is a 53-year-old female with a history of sickle cell anemia, previous acute hypoxic respiratory failure secondary to COVID pneumonia requiring trach and PEG now reversed who??was receiving IV Dilaudid at the infusion center for sickle cell crisis when she developed acute hypoxic respiratory failure.?? Patient had received Dilaudid and Benadryl and was found to be altered not responding to noxious stimuli, desaturating with apneic episodes, she was given IM Narcan with response.?? However, she continued to have some altered mental status hence was transferred to the ED where she was found to be febrile, hypotensive and hypoxic.?? She was started on antibiotics due to concern for sepsis and was started on IV fluids.?? CTA of the chest showed an acute segmental, subsegmental PE withsigns of heart strain. On admission WBC was 16.8 with a hemoglobin of 7.2 and platelets of 105. There was also transaminitis, elevated total bilirubin, low haptoglobin. Hematology consulted for anticoagulation recommendation for PE.?? Patient is currently not on any anticoagulation, received one-time dose of 90 mg of Lovenox in the ED. ?? On my visit patient was sleeping but upon waking up she??reported feeling better but still has some fogginess . Review of Systems All systems reviewed, negative unless specified in HPI Problem List/Past Medical History Ongoing Anemia Depression Protein-calorie malnutrition, moderate Sickle cell anemia TACO (transfusion associated circulatory overload) Procedure/Surgical History ???ORIF of a left mandibular body fracture (Dr. Russ) (09/23/2015)???blood transfusions???PEG - Percutaneous endoscopic gastrostomy Family History Sickle cell trait: Mother and Father. Social History Alcohol Use: Past. Other: Reports past heavy daily drinking, denies at present. Substance Abuse Use: Past. Type: Cocaine, Marijuana. Other: Denies current use. Tobacco Use: Former smoker, quit more than 30 days ago. Allergies Compazine??(tongue swelling) Medications Inpatient Acetaminophen IVPB, 1000 mg= 100 mL, IVPB, Every 6 hours, PRN Azithromycin IVPB, 500 mg, IVPB, Every 24 hours Benadryl Inj, 25 mg= 0.5 mL, IV Push, Every 4 hours, PRN D5%/LR 1000 mL, 1000 mL, IV Infusion Dextrose 50% Inj Syringe (25Gm), 12.5 Gm, IV Push Slowly, Every 20 minutes, PRN Dextrose 50% Inj Syringe (25Gm), 25 Gm, IV Push Slowly, Every 15 minutes, PRN Dilaudid Inj, 0.2 mg= 0.2 mL, IV Push Slowly, Every 6 hours, PRN Dulcolax Supp, 10 mg= 1 supp, Rectally, Daily, PRN Glucagon Inj, 1 mg, Intramuscular, Once, PRN Glucose Gel, 15 Gm, By Mouth, Every 20 minutes, PRN Glucose Gel, 30 Gm, By Mouth, Every 20 minutes, PRN LR 1,000 mL, 1000 mL, IV Infusion NaCL 0.9% Flush, 3 mL, IV Push, Every 8 hours NaCL 0.9% Flush, 3 mL, IV Push, Every 8 hours, PRN Narcan Inj, 0.2 mg= 0.5 mL, IV Push Slowly, Every 5 minutes, PRN Vancomycin IVPB, 750 mg= 150 mL, 15 mg/kg, IVPB, Every 36 hours Zofran ODTablet, 4 mg, By Mouth, Every 6 hours, PRN Zosyn Extended IVPB, 3.375 Gm, IVPB, Every 8 hours Home allopurinol 100 mg oral tablet, 100 mg= 1 tablet, By Mouth, Daily, 11 refills folic acid 1 mg oral tablet, 1 mg= 1 tablet, By Mouth, Daily gabapentin 300 mg oral capsule, 300 mg= 1 capsule, By Mouth, 3 times a day Inogen Portable Oxygen concentrator, See Instructions LORazepam 1 mg oral tablet, 1 mg= 1 tablet, By Mouth, 2 times a day omeprazole 20 mg oral enteric coated capsule, 20 mg= 1 capsule, By Mouth, Daily, 10 refills oxyCODONE 10 mg oral tablet, 20 mg= 2 tablet, By Mouth, Every 4 hours, PRN Physical Exam Vitals & Measurements T:??98.7?F?? TMIN:??98.6?F?? TMAX:??101.3?F?? HR:??81??(Peripheral)?? RR:??17?? BP:??106/52?? SpO2:??96%?? General: Patient in no acute distress HEENT: NC/AT, EOMI Cardiovascular: S1S2 Respiratory: on nasal cannula in no respiratory distress Neuro:AAOx3 no focal deficits Skin: warm and dry Lab Results/Pathology CBC?? CMP? Abs. NRBC: 0.2 k/mm3 (04/30/23 01:53:00) AG Ratio: 1 (04/30/23 04:37:00) LDH:??542 units/L??High (04/30/23 04:37:00) Hct:??18.9 %??Critical (04/30/23 01:53:00) Alkaline Phosphatase:??194 units/L??High (04/30/23 04:37:00) ?? Nucleated RBC (Automated): 1.3 #/100 WBC'S (04/30/23 01:53:00) ALT (SGPT): 31 units/L (04/30/23 04:37:00) ?? RBC:??2.07 m/mm3??Low (04/30/23 01:53:00) Anion Gap: 13 (04/30/23 04:37:00) ?? RDW-SD:??57.1 femtoliters??High (04/30/23 01:53:00) AST (SGOT):??78 units/L??High (04/30/23 04:37:00) ?? WBC:??15 k/mm3??High (04/30/23 01:53:00) Bicarbonate Level:??21 mmol/L??Low (04/30/23 04:37:00) ? Bilirubin, Total:??3 mg/dL??High (04/30/23 04:37:00) ? BUN: 13 mg/dL (04/30/23 04:37:00) ? Calcium:??8.5 mg/dL??Low (04/30/23 04:37:00) ? Chloride:??108 mmol/L??High (04/30/23 04:37:00) ? Creatinine-Blood: 1 mg/dL (04/30/23 04:37:00) ? Estimated GFR Creatinine: 66 ML/MIN/1.73 M2 (04/30/23 04:37:00) ? Glucose Level:??119 mg/dL??High (04/30/23 04:37:00) ? Potassium: 4 mmol/L (04/30/23 04:37:00) ? Protein, Total: 6.9 Gm/dL (04/30/23 04:37:00) ? Sodium: 142 mmol/L (04/30/23 04:37:00) ?? Diagnostic Results (04/29/2023 20:[address] Angio Chest) IMPRESSION:? 1. ??Acute bilateral segmental and subsegmental pulmonary embolism. Findings meet CT criteria for submassive PE. However, please note that asymmetric right ventricular enlargement was present on prior CT from 2020 and therefore it could indicate chronic right heart dysfunction. 2. ??Mild distal esophagitis. 3. ??Vaginal mucosal hyperenhancement with fluid in the lumen is suggestive of vasculitis. Follow-up with gynecology is recommended to exclude neoplastic process. 4. ??Bilateral parametrial prominent vasculature, nonspecific and can be seen with pelvic congestion syndrome. 5. ??Additional chronic findings as detailed above. [1] Assessment/Plan 53-year-old female with a history of sickle cell anemia was transferred from the infusion suite after developing altered mental status partially responded to Narcan found to have sepsis started on antibiotics and CT showing concerns for submassive PE (acute bilateral segmental and subsegmental PE) for which patient was given a 1 time dose of Lovenox. Patient is currently saturating 96% on 3 L nasal cannula. ?? -Recommend starting patient on??therapeutic anticoagulation.?? Can start with therapeutic Lovenox??while in-house??and transition to??DOAC??at discharge??for least 6 months of anticoagulation -Antibiotic and pain management per primary team -Patient has some thrombocytopenia??but last reading had clamped??platelets. ??Recommend??monitoring??platelet counts -Please obtain US of the lower extremities ?? Patient seen and case discussed with [1]??CT Angio Chest; Ike ARCHIBALD, Travon 04/29/2023 20:59 EST * Suzan ARCHIBALD(Hem/Onc), Jordon Lainez: PERFORM Event Display: Consultation Note Authored Date: [id number] Pt seen. I agree with the above plan and assessment. We must also continue to treat her SS crisis pain as well. Dr. Mares Note * Maryam Agarwal RN: PERFORM Event Display: Discharge/Transfer Note Hospital Authored Date: [id number] Nursing Discharge Note Entered On: 05/05/2023 13:57 EDT Performed On: 05/05/2023 13:56 EDT by Maryam Agarwal RN Nursing Discharge Note 2 Discharge Time : 05/05/2023 13:56 EDT Discharge Level of Care at Discharge : Home/Custodial/Foster Care Patient Left Unit Via : Wheelchair Patient Accompanied Off Unit with : Responsible adult DC Instructions Provided & Signed by Pt : Yes Patient Understands D/C Instructions : Yes Patient Instructions Discharge Signed : Yes Did Pt have Specialty Bed or Wound Vac : No Maryam Agarwal RN - 05/05/2023 13:56 EDT * Farhat Brizuela MD: PERFORM, MODIFY, MODIFY Event Display: Discharge/Transfer Note Hospital Authored Date: [id number] Patient: ??JOSE GALARZA ? Age:??53 Years?Sex:??Female?:??1970?? Patient Information Discharge Location: [facility] Primary Care Physician: Lesia Cuevas MD Admit Date/Time: 04/30/23 01:17 Discharge Disposition Discharge Disposition: Home: No Services Discharge Diagnosis Altered mental status (R41.82) Acute hypoxic respiratory failure (J96.01) Sickle cell anemia (D57.1) Sickle cell crisis (D57.00) Pulmonary emboli (I26.99) Acute metabolic encephalopathy (G93.41) ?? _ Discharge Medications Allopurinol (allopurinol 100 mg oral tablet)?100?Milligram?1?tablet?By Mouth?Daily apixaban (apixaban Starter Pack 5 mg oral tablet)?See Instructions?Take ??to 2 tablets by mouth 2 times a day for 3 days and then start taking 1 tablet by mouth 2 times a day from 05/09/2023 Colchicine (colchicine 0.6 mg oral tablet)?12 each, 0 Refill(s), PLEASE SEE ATTACHED FOR DETAILED DIRECTIONS Durable Medical Equipment (Inogen Portable Oxygen concentrator)?See Instructions?Chronic hypoxic respiratory failure (J96.11)For use ??at rest and with exertion at 6L/min Folic Acid (folic acid 1 mg oral tablet)?1?Milligram?1?tablet?By Mouth?Daily Gabapentin (gabapentin 300 mg oral capsule)?300?Milligram?1?capsule?By Mouth?3 times a day Lorazepam (LORazepam 1 mg oral tablet)?1?tab(s)?1?Milligram?By Mouth?2 times a day?for 7?Days Omeprazole (omeprazole 20 mg oral enteric coated capsule)?1?capsule?20?Milligram?By Mouth?Daily Oxycodone (oxyCODONE 10 mg oral tablet)?2?tab(s)?20?Milligram?By Mouth?Every 4 hours?as needed?as needed for pain?for 7?Days Oxycodone (oxyCODONE 5 mg oral tablet)?168 each, 0 Refill(s), 4 TABLET BY MOUTH EVERY 4 HOURS,X7DAYS NEEDED FOR SEVERE PAIN ? Medications Started Apixaban Medications Discontinued None Doses Changed None Allergies Allergies ?(Active and Proposed Allergies Only) Compazine? (Severity: Unknown severity, Onset: Unknown) ?Reactions: tongue swelling ? PCP Follow-Up/Heads-Up Patient needs CBC BMP in 5 to 7 days. Hospital Course ??51 y/o female with history of sickle cell disease crises with multiple admissions, and COVID-pneumonia in 2020 complicated by acute hypoxic respiratory failure needing intubation and eventual trachand PEG placement, now removed, who was transferred to the ED from the inpatient center in the setting of altered mental status??, dyspnea and hypoxia and??concern for acute hypoxic respiratory failure, found to be meeting SIRS criteria and incidentally found submassive bilateral pulmonary embolism. ? Acute metabolic encephalopathy (G93.41) ??1. Altered mental status (R41.82) ??2. Acute hypoxic respiratory failure (J96.01) ??3. Sickle cell anemia (D57.1) ??4. Sickle cell crisis (D57.00) ??5. Pulmonary emboli (I26.99) ? Pulmonary emboli (I26.99): # Acute hypoxic respiratory failure (J96.01): Secondary to PE ??-Found to have new PE. Started on Lovenox and changed to Eliquis Continue Eliquis 10 mg twice daily for 3 more days and then switch to Eliquis 5 mg twice daily Echo showed normal EF, left atrium severely dilated, right ventricle is normal in size and function Ultrasound the legs??negative for DVT Continue Eliquis and follow-up with??hematology oncology as outpatient Patient uses 4 L of oxygen at home, currently requiring??2 L at rest Patient refused??ambulatory??O2 evaluation ? # Acute metabolic encephalopathy (G93.41):Resolved Due to the above condition ? SIRS: -Patient with fever and tachycardia ?? Patient started on Zosyn UA nonsignificant Blood cultures so far negative No need of antibiotics on discharge ? # Acute kidney injury: Creatinine 1.2 Resolved ?? Diarrhea Patient has 2 episodes of diarrhea yesterday Currently no diarrhea today No need of C. difficile testing ?? # Sickle cell crisis (D57.00): # Sickle cell anemia (D57.1): ??# Unconjugated bilirubinemia ??-Hemoglobin 6.6,??status post PRBC transfusion Hemoglobin stable Appreciate??hematology evaluation ? Thrombocytopenia: Platelet count??stable at 98 Follow-up with hematology as outpatient Trend CBC in 1 week ?Diet: Regular diet ?Code status : Full code ? Discharge to home today ? Objective Assessment and Plan ? Measurements?? Height: 162 cm (05/05/23) Weight: 54.4 kg (05/01/23) Dry Weight: 59.09 kg (04/30/23) Body Mass Index: 20.73 kg/m2 (05/01/23) ? Vital Signs?? Temperature: 98.8 DegF (05/05/23 05:33:00) Temperature Route: Oral (05/05/23 05:33:00) Pulse Rate: 62 bpm (05/05/23 05:33:00) Respiratory Rate: 16 br/min (05/05/23 10:09:00) Systolic Blood Pressure: 110 mm Hg (05/05/23 05:33:00) Diastolic Blood Pressure: 66 mm Hg (05/05/23 05:33:00) Blood pressure sites: Arm, left (05/05/23 05:33:00) Mean Arterial Pressure: 81 mm Hg (05/05/23 05:33:00) Pulse Pressure: 44 mm Hg (05/05/23 05:33:00) Oxygen Saturation: 100 % (05/05/23 05:33:00) Liters per Minute: 2 L/min (05/05/23 05:33:00) Mode of Delivery (Oxygen): Nasal cannula (05/05/23 05:33:00) Early Warning Score: 6 (05/05/23 10:10:02) ? Intake/Output? 04/29 01:17 05/04 07:00 05/03 07:00 05/02 07:00 05/01 07:00 ?? 05/04 12:34 05/04 12:34 05/04 06:59 05/03 06:59 05/02 06:59 Intake ? 5640.7 ?0 ?840 ? 2028.7 ? 1470 Output ?640 ?0 ?0 ?0 ?250 Net Total ? 5000.7 ?0 ?840 ? 2028.7 ? 1220 ? Urine Count ? 10 ?0 ?2 ?1 ?5 Diaper Count ?9 ?0 ?5 ?2 ?2 ? . Physical Exam Awake, alert, oriented Lungs: Clear to auscultation bilateral, no wheezing no rales Heart: Regular rate and rhythm, no murmur, no rub or gallop Abdomen: Soft, nontender, nondistended; Bowel sounds present Extremity: No edema cyanosis clubbing Neurological: No focal deficit Psychiatric: Normal mood and affect Consultants Hematology Pending Results Add On Lab Order ordered on 04/29/2023 Add On Lab Order ordered on 04/30/2023 Add On Lab Order ordered on 04/30/2023 C. difficile Rapid Toxin Assay ordered on 05/04/2023 GI Profile, Stool, PCR ordered on 05/04/2023 Legionella Antigen Urine ordered on 05/02/2023 Strep Pneumoniae Urinary Ag ordered on 05/02/2023 Transfuse RBCs ordered on 05/01/2023 Transfuse RBCs ordered on 05/03/2023 Follow-Up Appointments Added Follow Up ?Time Frame ?Comments Lesia Cuevas MD Patient Instructions Please follow the PCP in 7 days to check CBC, BMP Follow-up with hematology oncology as outpatient Continue Eliquis as prescribed??for pulmonary embolism, your prescription sent to [facility] pharmacy Continue home oxygen If you develop any worsening symptoms??please come back to the ER. Home Health Face to Face ^HomeHealthFTF Results Discharge Labs BACTERIOLOGY MRSA PCR Result Negative, MRSA target DNA not detected. ()?? 04/30/2023 02:09 S Aureus ??PCR Result Negative, SA target DNA not detected. ()?? 04/30/2023 02:09 ?? BLOOD BANK Blood Type O Positive ()?? 05/01/2023 14:30 Antibody Screen Negative ()?? 05/01/2023 14:30 RBC Unit ID [id number] ()?? 05/03/2023 08:54 RBC Available PT ()?? 05/03/2023 08:54 ?? BLOOD COUNT & DIFF WBC 16.3 k/mm3 (High)?? 05/04/2023 10:22 RBC 2.30 m/mm3 (Low)?? 05/04/2023 10:22 Hgb 7.4 Gm/dL (Low)?? 05/04/2023 10:22 Hct 20.2 % (Low)?? 05/04/2023 10:22 MCV 87.8 femtoliters ()?? 05/04/2023 10:22 MCH 32.2 pg ()?? 05/04/2023 10:22 MCHC 36.6 g/dL ()?? 05/04/2023 10:22 Platelet Count 98 k/mm3 (Low)?? 05/04/2023 10:22 RDW-SD 61.7 femtoliters (High)?? 05/04/2023 10:22 MPV 13.2 femtoliters (High)?? 05/04/2023 10:22 Nucleated RBC (Automated) 4.5 #/100 WBC'S ()?? 05/04/2023 10:22 Abs. NRBC 0.7 k/mm3 ()?? 05/04/2023 10:22 Abs. Neut 11.5 k/mm3 (High)?? 05/03/2023 01:42 Abs. Lymph 2.3 k/mm3 ()?? 05/03/2023 01:42 Abs. Lamb 2.4 k/mm3 (High)?? 05/03/2023 01:42 Abs. Eo 0.5 k/mm3 (High)?? 05/03/2023 01:42 Abs. Baso 0.2 k/mm3 (High)?? 05/03/2023 01:42 Neut % 66.0 % ()?? 05/03/2023 01:42 Lymph % 13.0 % (Low)?? 05/03/2023 01:42 Lamb % 14.0 % (High)?? 05/03/2023 01:42 Eos % 3.0 % ()?? 05/03/2023 01:42 Baso % 1.0 % ()?? 05/03/2023 01:42 Metamyelocyte % 3.0 % (High)?? 05/03/2023 01:42 Band % 1.0 % ()?? 04/29/2023 14:38 RBC Morphology MODERATE ()?? 05/03/2023 01:42 Platelet Estimate DECREASED ()?? 05/03/2023 01:42 Platelet Comment FEW ()?? 05/03/2023 01:42 Hemoglobin (POC) POC Cartridge 7.5 Gm/dL (Low)?? 04/29/2023 14:47 Hematocrit (POC) POC Cartridge 22 % (Low)?? 04/29/2023 14:47 Retic Count 9.5 % (High)?? 04/29/2023 18:30 Retic Count Corrected 3.6 % (High)?? 04/29/2023 18:30 Retic Production Index 1.8 % ()?? 04/29/2023 18:30 ?? BLOOD GAS pH Venous (POC) POC Cartridge 7.33 ()?? 04/29/2023 14:47 pCO2 Venous (POC) POC Cartridge 47.1 mm Hg ()?? 04/29/2023 14:47 pO2 Venous (POC) POC Cartridge 32 mm Hg (Low)?? 04/29/2023 14:47 Est Bicarbonate (POC) POC Cartridge 24.9 mmol/L ()?? 04/29/2023 14:47 % O2 Sat Venous (POC) POC Cartridge 56 ()?? 04/29/2023 14:47 Base Excess (POC) POC Cartridge NEGATIVE 1 ()?? 04/29/2023 14:47 Specimen Type - Blood Gas VENOUS ()?? 04/29/2023 14:47 ? CARDIAC Nt-Probnp 546 pg/mL (High)?? 04/29/2023 21:59 High Sensitivity Troponin (HSTnT) 13 ng/L ()?? 04/29/2023 21:59 ?? CHEM GENERAL Sodium 139 mmol/L ()?? 05/04/2023 10:22 Potassium 5.0 mmol/L ()?? 05/04/2023 10:22 Chloride 106 mmol/L ()?? 05/04/2023 10:22 Bicarbonate Level 22 mmol/L ()?? 05/04/2023 10:22 Anion Gap 11 ()?? 05/04/2023 10:22 Sodium (POC) POC Cartridge 136 mmol/L ()?? 04/29/2023 14:47 Potassium (POC) POC Cartridge 4.4 mmol/L ()?? 04/29/2023 14:47 Glucose Level 106 mg/dL (High)?? 05/04/2023 10:22 Glucose (POC) POC Cartridge 88 ()?? 04/29/2023 14:47 Glucose, POC 115 mg/dL (High)?? 05/01/2023 20:32 BUN 15 mg/dL ()?? 05/04/2023 10:22 Creatinine-Blood 1.2 mg/dL (High)?? 05/04/2023 10:22 Estimated GFR Creatinine 57 ML/MIN/1.73 M2 ()?? 05/04/2023 10:22 Calcium 9.0 mg/dL ()?? 05/04/2023 10:22 Calcium, Ionized pH Corrected 1.21 mmol/L ()?? 04/29/2023 14:38 Ionized Calcium (POC) POC Cartridge 1.25 mmol/L ()?? 04/29/2023 14:47 Phosphorus 3.6 mg/dL ()?? 05/04/2023 10:22 Magnesium 2.2 mg/dL ()?? 05/04/2023 10:22 Protein, Total 6.9 Gm/dL ()?? 04/30/2023 04:37 Albumin 3.4 Gm/dL ()?? 04/30/2023 04:37 AG Ratio 1.0 ()?? 04/30/2023 04:37 LDH 542 units/L (High)?? 04/30/2023 04:37 Alkaline Phosphatase 194 units/L (High)?? 04/30/2023 04:37 AST (SGOT) 78 units/L (High)?? 04/30/2023 04:37 ALT (SGPT) 31 units/L ()?? 04/30/2023 04:37 Bilirubin, Total 3.0 mg/dL (High)?? 04/30/2023 04:37 Bilirubin, Direct 1.2 mg/dL (High)?? 04/29/2023 18:30 Bilirubin, Indirect 2.7 mg/dL (High)?? 04/29/2023 18:30 Lactate 0.7 mmol/L ()?? 04/29/2023 18:30 ? HEME OTHER Hold Lavender Top SPECIMEN DISCARDED AFTER 24 HOURS. ()?? 04/29/2023 21:59 ? IMMUNOLOGY GENERAL Haptoglobin <10 mg/dL (Low)?? 04/29/2023 18:30 ? MISC. CHEMISTRY Ammonia, Venous 51 ??mole/L ()?? 04/29/2023 18:30 Procalcitonin 0.98 ng/mL ()?? 04/29/2023 21:59 ?? SEROLOGY INF DISEASE Anti Hepatitis A IgM NON REACTIVE ()?? 05/02/2023 06:58 Hepatitis B Surface Antigen NON REACTIVE ()?? 05/02/2023 06:58 Hepatitis B Core Ab, IgM NON REACTIVE ()?? 05/02/2023 06:58 Hepatitis C Ab NON REACTIVE ()?? 05/02/2023 06:58 ?? UA/URINALYSIS Appear/Color, Urine YELLOW ()?? 04/29/2023 20:05 Specific [place], Urine 1.010 ()?? 04/29/2023 20:05 pH, Urine 7.0 ()?? 04/29/2023 20:05 Albumin, Urine TRACE (Abnormal)?? 04/29/2023 20:05 Glucose, Urine NEGATIVE ()?? 04/29/2023 20:05 Ketones, Urine NEGATIVE ()?? 04/29/2023 20:05 Bilirubin, Urine NEGATIVE ()?? 04/29/2023 20:05 Hemoglobin, Urine TRACE (Abnormal)?? 04/29/2023 20:05 Nitrite, Urine NEGATIVE ()?? 04/29/2023 20:05 Leukocyte, Urine TRACE (Abnormal)?? 04/29/2023 20:05 Urobilinogen NORMAL mg/dL ()?? 04/29/2023 20:05 WBC's, Urine 9 /HPF (High)?? 04/29/2023 20:05 RBC's, Urine 1 /HPF ()?? 04/29/2023 20:05 Bacteria SLIGHT HPF (Abnormal)?? 04/29/2023 20:05 Mucus SLIGHT /LPF ()?? 04/29/2023 20:05 Hold Urine Culture Testing available 48 hours from time of collection. ()?? 04/29/2023 20:05 ?? URINE OTHER Est Creatinine Clearance 46.92 mL/min ()?? 05/04/2023 11:50 ? VIROLOGY Influenza A PCR NEGATIVE ()?? 04/29/2023 14:50 Influenza B PCR NEGATIVE ()?? 04/29/2023 14:50 RSV PCR NEGATIVE ()?? 04/29/2023 14:50 COVID-19 PCR Specimen Source NASAL ()?? 04/29/2023 14:50 COVID-19 PCR Result NEGATIVE ()?? 04/29/2023 14:50 ? Microbiology ?? Blood Culture?? Completed?? Source: Blood Body Site: ?? Collected Dt/Tm: 04/29/2023 14:39 Last Updated Dt/Tm: 04/29/2023 14:13 ?SPECIMEN DESCRIPTION : BLOOD ??RACSPECIAL REQUESTS : NONECULTURE : NO GROWTH 5 DAYS.REPORT STATUS : FINAL 05/04/2023 Blood Culture #2?? Completed?? Source: Blood Body Site: ?? Collected Dt/Tm: 04/29/2023 14:39 Last Updated Dt/Tm: 04/29/2023 14:13 ?SPECIMEN DESCRIPTION : BLOOD ??LACSPECIAL REQUESTS : NONECULTURE : NO GROWTH 5 DAYS.REPORT STATUS : FINAL 05/04/2023 COVID-19, RSV, and Flu A/B, Rapid PCR?? Completed?? Source: Nasal Body Site: Nose Collected Dt/Tm: 04/29/2023 14:13 Last Updated Dt/Tm: 04/29/2023 16:24 MRSA PCR Nasal Swab?? Completed?? Source: Swab Body Site: Nares Both Collected Dt/Tm: 04/30/2023 01:25 Last Updated Dt/Tm: 04/30/2023 05:44 ? 45_ minutes spent on discharge * Maryam Agarwal RN: PERFORM Event Display: Patient Education/Instruction Authored Date: Inpatient Adult Discharge Instructions. [address] [address] Name: JOSE GALARZA : 1970?? Visit: 04/30/2023 01:17?? Current Date: 05/05/2023 13:07 ?? Account: [id number]?? Inpatient Adult Discharge Instructions We would like [...] and their families. Surveys are administered by [employer] ?? If further treatment with your primary care physician or another doctor is recommended, it is important for you to keep the appointment. Call your primary care physician or return to the Emergency Department immediately if your condition worsens, fails to improve, or new symptoms develop. If you need to find a doctor, you can call [facility] [employer] for a referral at [phone] or toll free at [phone] or log in to [email or web address].. ?? [facility], in keeping with [facility] guidance, no longer requires face masks for staff, patientsor visitors in most situations. Similiar to time spent indoors at other locations, there is the chance that you were exposed to repiratory viruses during your time with us (such as flu or COVID-19). If you develop symptoms concerning for a viral respiratory infection, please seek testing (and treatment if indicated) from your medical provider or home test kit. ?? You can view and manage your care through the patient portal or by using a health care tracy of your choosing. [employer] is a website that allows you to securely view your medical information including your hospital discharge summary, office visit summaries, medications and follow-up visits. You can also request appointments, renew medications, and request access to your medical information using a health care tracy of your choosing, or just ask a question. You can enroll at [email or web address] or register during your next office visit. You have been discharged from [facility], Patient Care Unit: S64??. If you have any questions regarding these instructions, including results of studies pending, afteryou leave, please call us and we will be happy to assist you 15/09. [facility] Your Care Team Attending Physician Farhat Brizuela MD?? Consulting Providers Farhat Brizuela MD?? Discharging Providers Farhat Brizuela MD Reason for Your Visit bilateral PE; AMS?? Your Diagnosis Altered mental status Acute hypoxic respiratory failure Sickle cell anemia Sickle cell crisis Pulmonary emboli Acute metabolic encephalopathy General medical Tests Performed Below is a partial list of the tests performed during your hospitalization. You may have had other tests and procedures not included in this list. Please discuss all test results with your provider. Alk Phos ALT Ammonia Venous AST BASE EXCESS POC CARTRIDGE Basic Metabolic Panel BNP BUN Calcium Ionized CALCIUM IONIZED POC CART CBC CBC w/ Differential Comprehensive Metabolic Panel COVID-19, RSV, and Flu A/B, Rapid PCR Creatinine Electrolytes Glucose Level GLUCOSE POC GLUCOSE POC CARTRIDGE H + H Haptoglobin HEMATOCRIT POC CARTRIDGE HEMOGLOBIN POC CARTRIDGE Hepatic Function Panel Hepatitis A Ab IgM Hepatitis B Core Ab IgM Hepatitis B Surface Antigen Hepatitis C Ab High??Sensitivity??Troponin T HOLD LAVENDER TUBE Lactate Level LDH Magnesium Level MRSA PCR Nasal Swab Phosphorus Level POTASSIUM POC CARTRIDGE PROCALCITONIN, SERUM Reticulocyte Ct SODIUM POC CARTRIDGE Total Bilirubin Troponin T, High Sensitivity Type and Screen Urinalysis w/hold for Urine Culture VBG POC CARTRIDGE CT Abd/Pelvis W/ IV Contrast Only CT Angio Chest CT Head/Brain W/O Contrast US Doppler Ext Lower Venous Bilat Add On Lab Order?? C. difficile Rapid Toxin Assay?? GI Profile, Stool, PCR?? Legionella Antigen Urine (Urine Legionella Antigen)?? Strep Pneumoniae Urinary Ag?? Transfuse RBCs?? Primary Care Provider Lesia Cuevas MD? Advance Directive Health Care Proxy on File Yes - Health Care Proxy Discharge Vitals Temperature: 98.8 DegF Height: 162 cm Pulse Rate: 62 bpm Weight: 54.4 kg Respiratory Rate: 16 br/min Body Mass Index: 20.73 kg/m2 Systolic Blood Pressure: 110 mm Hg Body surface area: 1.56 Diastolic Blood Pressure: 66 mm Hg ?? Oxygen Saturation: 100 % ?? Studies Pending All studies ordered during this hospital stay have been completed unless listed below. Please discuss all pending results with your provider listed above in these instructions. ?? Add On Lab Order?? C. difficile Rapid Toxin Assay?? GI Profile, Stool, PCR?? Legionella Antigen Urine (Urine Legionella Antigen)?? Strep Pneumoniae Urinary Ag?? Transfuse RBCs?? What to do next Instructions From Your Doctor Please follow the PCP in 7 days to check CBC, BMP Follow-up with hematology oncology as outpatient Continue Eliquis as prescribed??for pulmonary embolism, your prescription sent to [facility] pharmacy Continue home oxygen If you develop any worsening symptoms??please come back to the ER. ?? Orders??:Regular Diet? 05/05/23 12:44:00 EDT?? Prescriptions??, ??05/05/23 12:44:00 EDT?? You Need to Schedule the Following Appointments Follow Up with??Lesia Cuevas MD Where: ?? Discharge Medications JOSE GALARZA :1970 Visit Date:04/30/2023 Medications: Please continue your medications until treatment is completed or stopped by your provider. Medications not listed below should be discontinued. Discuss any questions related to medications with your provider. What How Much When Instructions Next Dose New apixaban (apixaban Starter Pack 5 mg oral tablet) Seeinstructions Refills: 3 Take ??to 2 tablets by mouth 2 times a day for 3 days and then start taking 1 tablet by mouth 2 times a day from 2023 ?? Pickup at [facility] 3 see instructions Changed Colchicine (colchicine 0.6 mg oral tablet) 12 each, 0 Refill(s), PLEASE SEE ATTACHED FOR DETAILED DIRECTIONS ?? see attached Changed Lorazepam (LORazepam 1 mg oral tablet) 1 tab(s) Oral Twice a day Duration: 7 Days 05/05@9am Changed Oxycodone (oxyCODONE 10 mg oral tablet) 2 tab(s) Oral Every 4 hours as needed for as needed for pain Duration: 7 Days as needed for pain Changed Oxycodone (oxyCODONE 5 mg oral tablet) 168 each, 0 Refill(s), 4 TABLET BY MOUTH EVERY 4 HOURS,X7 DAYS NEEDED FOR SEVERE PAIN ?? as needed for severe pain Unchanged Allopurinol (allopurinol 100 mg oral tablet) 1 tab(s) Oral Daily 05/05@9am Unchanged Durable Medical Equipment ([employer] Portable Oxygen concentrator) See instructions Chronic hypoxic respiratory failure (J96.11) ?? For use ??at rest and with exertion at 6L/ min ?? see instructions Unchanged Folic Acid (folic acid 1 mg oral tablet) 1 tab(s) Oral Daily 05/05@9am Unchanged Gabapentin (gabapentin 300 mg oral capsule) 1 capsule Oral 3 times a day 05/05@9am Unchanged Omeprazole (omeprazole 20 mg oral enteric coated capsule) 1 capsule Oral Daily 05/05@9am Pharmacy Information [facility] 3: [address], [place] [id number] [phone] ?? What How Much When Comments Stop Taking Albuterol (ProAir HFA 90 mcg/ inh inhalation aerosol) 2 puff(s) Inhalation Every 6 hours Stop Taking Clindamycin Topical (clindamycin 1% topical lotion) 1 tracy Topically Twice a day apply to L armpit lesions/ bumps twice per day until healed ?? Stop Taking DiphenhydrAMINE (diphenhydrAMINE 25 mg oral capsule) 1 capsule Oral 3 times a day as needed for NEEDED FOR ITCHING Stop Taking Emollients, Topical (Eucerin Plus topical lotion) 1 tracy Topically Twice a day as needed for for dry skin Stop Taking Estradiol Topical (Estrace Vaginal Cream 0.1 mg/ g) 1 gram Vaginally Daily at Bedtime Stop Taking Fluticasone Nasal (Flonase 50 mcg/ inh nasal spray) 1 spray(s) Nares, Both Twice a day Stop Taking Hydroxyurea (hydroxyurea 500 mg oral capsule) 1 capsule Oral Twice a day Stop Taking HydrOXYzine (hydrOXYzine hydrochloride 50 mg oral tablet) 1 tab(s) Oral 3 times a day as needed for as needed for anxiety Stop Taking Loratadine (loratadine 10 mg oral tablet) 1 tab(s) Oral Daily Stop Taking Multivitamin (Daily Lazara oral tablet) 1 tab(s) Oral Daily Stop Taking Nicotine (nicotine 4 mg oral transmucosal gum) See instructions CHEW 1 PIECE EVERY 2 HOURS NEEDED FOR SMOKING CESSATION ?? Stop Taking Polyethylene Glycol 3350 (MiraLax oral powder for reconstitution) 17 gram Oral Daily dissolve in water before taking ?? Stop Taking Pyridoxine (pyridoxine 50 mg oral tablet) 1 tab(s) Oral Daily Stop Taking Quetiapine (QUEtiapine 25 mg oral tablet) 1 tab(s) Oral Twice a day as needed for NEEDED FOR AGITATION Stop Taking sodium zirconium cyclosilicate (sodium zirconium cyclosilicate 10 g oral powder for reconstitution) 5 gram Oral Every Thursday and Prescription Given During Visit apixaban (apixaban Starter Pack 5 mg oral tablet) - , # 60 each, 3 Refills, Take ??to 2 tablets by mouth 2 times a day for 3 days and then start taking 1 tablet by mouth 2 times a day [facility] [place] [phone]?? Laboratory Results Below is a partial list of the most recent Laboratory test results done prior to this discharge. You may have had other tests and procedures not included in this list. Please discuss all test resultswith your provider. Est Creatinine Clearance - 46.92 mL/min (05/04/2023) RBC Available - PT (05/03/2023) RBC Unit ID - [id number] (05/03/2023) Alk Phos (04/29/2023) ???Alkaline Phosphatase - 225 units/L ALT (04/29/2023) ???ALT (SGPT) - 39 units/L Ammonia Venous (04/29/2023) ???Ammonia, Venous - 51 ??mole/L AST (04/29/2023) ???AST (SGOT) - 90 units/L BASE EXCESS POC CARTRIDGE (04/29/2023) ???Base Excess (POC) POC Cartridge - NEGATIVE 1 Basic Metabolic Panel (05/04/2023) ???Sodium - 139 mmol/L???Potassium - 5.0 mmol/L???Chloride - 106 mmol/L???Bicarbonate Level - 22 mmol/L???Anion Gap - 11???Glucose Level - 106 mg/dL???BUN - 15 mg/dL???Creatinine-Blood - 1.2 mg/dL???Estimated GFR Creatinine - 57 ML/MIN/1.73 M2???Calcium - 9.0 mg/dL BNP (04/29/2023) ???Nt-Probnp - 546 pg/mL BUN (05/01/2023) ???BUN - 16 mg/dL Calcium Ionized (04/29/2023) ???Calcium, Ionized pH Corrected - 1.21 mmol/L CALCIUM IONIZED POC CART (04/29/2023) ???Ionized Calcium (POC) POC Cartridge - 1.25 mmol/L CBC (05/04/2023) ???WBC - 16.3 k/mm3???RBC - 2.30 m/mm3???Hgb - 7.4 Gm/dL???Hct - 20.2 %???MCV - 87.8 femtoliters???MCH - 32.2 pg???MCHC - 36.6 g/dL???Platelet Count - 98 k/mm3???RDW-SD - 61.7 femtoliters???MPV - 13.2 femtoliters???Nucleated RBC (Automated) - 4.5 #/100 WBC'S???Abs. NRBC - 0.7 k/mm3 CBC w/ Differential (05/03/2023) ???WBC - 17.5 k/mm3???RBC - 2.02 m/mm3???Hgb - 6.7 Gm/dL???Hct - 17.6 %???MCV - 87.1 femtoliters???MCH - 33.2 pg???MCHC - 38.1 g/dL???Platelet Count - 97 k/mm3???RDW-SD - 59.3 femtoliters???MPV - NOTMEASURED???Nucleated RBC (Automated) - 2.3 #/100 WBC'S???Abs. NRBC - 0.4 k/mm3???Abs. Neut - 11.5 k/ mm3???Abs. Lymph - 2.3 k/mm3???Abs. Lamb - 2.4 k/mm3???Abs. Eo - 0.5 k/mm3???Abs. Baso - 0.2 k/mm3???Neut % - 66.0 %???Lymph % - 13.0 %???Lamb % - 14.0 %???Eos % - 3.0 %???Baso % - 1.0 %???Metamyelocyte % - 3.0 %???RBC Morphology - MODERATE???Platelet Estimate - DECREASED???Platelet Comment - FEW Comprehensive Metabolic Panel (04/30/2023) ???Sodium - 142 mmol/L???Potassium - 4.0 mmol/L???Chloride - 108 mmol/L???Bicarbonate Level - 21 mmol/L???Anion Gap - 13???Glucose Level - 119 mg/dL???BUN - 13 mg/dL???Creatinine-Blood - 1.0 mg/dL???Estimated GFR Creatinine - 66 ML/MIN/1.73 M2???Calcium - 8.5 mg/dL???Protein, Total - 6.9 Gm/dL???Alb umin - 3.4 Gm/dL???AG Ratio - 1.0???Alkaline Phosphatase - 194 units/L???AST (SGOT) - 78 units/L???ALT (SGPT) - 31 units/L???Bilirubin, Total - 3.0 mg/dL COVID-19, RSV, and Flu A/B, Rapid PCR (04/29/2023) ???Influenza A PCR - NEGATIVE???Influenza B PCR - NEGATIVE???RSV PCR - NEGATIVE???COVID-19 PCR Specimen Source - NASAL???COVID-19 PCR Result - NEGATIVE Creatinine (05/01/2023) ???Creatinine-Blood - 1.1 mg/dL???Estimated GFR Creatinine - 60 ML/MIN/1.73 M2 Electrolytes (05/01/2023) ???Sodium - 141 mmol/L???Potassium - 5.3 mmol/L???Chloride - 110 mmol/L???Bicarbonate Level - 22 mmol/L???Anion Gap - 9 Glucose Level (04/29/2023) ???Glucose Level - 84 mg/dL GLUCOSE POC (05/01/2023) ???Glucose, POC - 115 mg/dL GLUCOSE POC CARTRIDGE (04/29/2023) ???Glucose (POC) POC Cartridge - 88 H + H (05/02/2023) ???Hgb - 6.9 Gm/dL???Hct - 19.0 % Haptoglobin (04/29/2023) ? ?Haptoglobin - <10 mg/dL HEMATOCRIT POC CARTRIDGE (04/29/2023) ???Hematocrit (POC) POC Cartridge - 22 % HEMOGLOBIN POC CARTRIDGE (04/29/2023) ???Hemoglobin (POC) POC Cartridge - 7.5 Gm/dL Hepatic Function Panel (04/29/2023) ???Protein, Total - 6.9 Gm/dL???Albumin - 3.3 Gm/dL???Alkaline Phosphatase - 194 units/L???AST (SGOT) - 89 units/L???ALT (SGPT) - 31 units/L???Bilirubin, Total - 3.9 mg/dL???Bilirubin, Direct - 1.2 mg/dL???Bilirubin, Indirect - 2.7 mg/dL Hepatitis A Ab IgM (05/02/2023) ???Anti Hepatitis A IgM - NON REACTIVE Hepatitis B Core Ab IgM (05/02/2023) ???Hepatitis B Core Ab, IgM - NON REACTIVE Hepatitis B Surface Antigen (05/02/2023) ???Hepatitis B Surface Antigen - NON REACTIVE Hepatitis C Ab (05/02/2023) ???Hepatitis C Ab - NON REACTIVE High??Sensitivity??Troponin T (04/29/2023) ???High Sensitivity Troponin (HSTnT) - 14 ng/L HOLD LAVENDER TUBE (04/29/2023) ???Hold Lavender Top - SPECIMEN DISCARDED AFTER 24 HOURS. Lactate Level (04/29/2023) ???Lactate - 0.7 mmol/L LDH (04/30/2023) ???LDH - 542 units/L Magnesium Level (05/04/2023) ???Magnesium - 2.2 mg/dL MRSA PCR Nasal Swab (04/30/2023) ???MRSA PCR Result - Negative, MRSA target DNA not detected.???S Aureus PCR Result - Negative, SA target DNA not detected. Phosphorus Level (05/04/2023) ???Phosphorus - 3.6 mg/dL POTASSIUM POC CARTRIDGE (04/29/2023) ???Potassium (POC) POC Cartridge - 4.4 mmol/L PROCALCITONIN, SERUM (04/29/2023) ???Procalcitonin - 0.98 ng/mL Reticulocyte Ct (04/29/2023) ???Retic Count - 9.5 %???Retic Count Corrected - 3.6 %???Retic Production Index - 1.8 % SODIUM POC CARTRIDGE (04/29/2023) ???Sodium (POC) POC Cartridge - 136 mmol/L Total Bilirubin (04/29/2023) ???Bilirubin, Total - 4.2 mg/dL Troponin T, High Sensitivity (04/29/2023) ???High Sensitivity Troponin (HSTnT) - 13 ng/L Type and Screen (05/01/2023) ???Blood Type - O Positive???Antibody Screen - Negative Urinalysis w/hold for Urine Culture (04/29/2023) ???Appear/Color, Urine - YELLOW???Specific [place], Urine - 1.010???pH, Urine - 7.0???Albumin, Urine - TRACE???Glucose, Urine - NEGATIVE???Ketones, Urine - NEGATIVE???Bilirubin, Urine - NEGATIVE???Hemoglobin, Urine - TRACE???Nitrite, Urine - NEGATIVE???Leukocyte, Urine - TRACE???Urobilinogen - NORMAL???WBC's, Urine - 9 /HPF???RBC's, Urine - 1 /HPF???Bacteria - SLIGHT???Mucus - SLIGHT???Hold UrineCulture - Testing available 48 hours from time of collection. VBG POC CARTRIDGE (04/29/2023) ???pH Venous (POC) POC Cartridge - 7.33???pCO2 Venous (POC) POC Cartridge - 47.1 mm Hg???pO2 Venous(POC) POC Cartridge - 32 mm Hg???Est Bicarbonate (POC) POC Cartridge - 24.9 mmol/L???% O2 Sat Venous (POC) POC Cartridge - 56???Specimen Type - Blood Gas - VENOUS Allergies (NKA means No Known Allergies) Compazine??(tongue swelling) Problems Active Problems??(7) Anemia?? Depression?? Protein-calorie malnutrition, moderate?? Sickle cell anemia?? sickle cell disease?? TACO (transfusion associated circulatory overload)?? urinary tract infection?? Education Materials Below is the list of Educational Leaflet Providered with your Discharge Instructions. Valuables and Belongings I fully understand and agree that [facility] accepts no responsibility for all my personal [...] to send valuables and belongings home. ?? No Valuables/Belongings: No valuables/belongings present Review of Valuable and Belonging List: With patient Date for Pt to Sign Valuables/Belongings: 05/01/23 20:27:00 ?? Other Discharge Information ? Pulmonary Rehab [...] are strongly encouraged to quit. Please call [facility] [employer] at [phone] or 5-410-743Enbase ([phone]) or log in to [email or web address] for referrals to smoking cessation programs. ?? 315 Suicide & Crisis Lifeline is available 15/09 if you or someone you know needs to find a reason to keep living. By calling 392 you'll be connected to a skilled, trained counselor at a crisis center in your area. INPATIENT DISCHARGE INSTRUCTIONS SIGNATURE PAGE JOSE GALARZA Location:[facility] Registration Date and Time:04/30/2023 01:17 EST Primary Care Physician: Lesia Cuevas MD, Attending Physician: Gelacio ARCHIBALD, Farhat, I JOSE GALARZA, have received the above patient education materials/instructions and have verbalized understanding. If ambulance or transport services are being used I further acknowledge being given a choice of service. ?? If you need to contact me, please call me at this number: . Patient/Cooking Instructor Name: Patient/Cooking Instructor Signature: Relationship to Patient: Witness Name/Signature: Date: Patient Care team information Care Team Personnel Name: Indiana Zuleta Position: [facility] Onco RN Member Role: Primary Care Nurse Name: Marisa Rosario RN Position: [facility] RN Member Role: Primary Care Nurse Name: Carmen Hdez RN Position: [facility] ED RN W/OE and Tasks Member Role: Primary Care Nurse Name: Jordon Cruz RN Position: [facility] ED RN W/OE and Tasks Member Role: Primary Care Nurse Name: Daisy Rushing RN Position: [facility] RN Member Role: Primary Care Nurse Name: Ana Faustin RN Position: [facility] RN Member Role: Primary Care Nurse Name: Ira Garnett Position: [facility] RN Supv Member Role: Primary Care Nurse Name: Corinna Fajardo RN Position: [facility] AMB Nurse Member Role: Primary Care Nurse Name: Ira Apodaca RN Position: [facility] ED RN W/OE and Tasks Member Role: Primary Care Nurse Name: Idania More RN Position: [facility] RN Member Role: Primary Care Nurse Name: Lian Joy RN Position: [facility] RN Member Role: Primary Care Nurse Name: Nikkie Sommers RN Position: [facility] RN Supv Member Role: Primary Care Nurse Name: Jasmine Ortega NP Position: [facility] Associate Professional Member Role: Primary Care Nurse Address: Address: [address] [place] [id number]- Name: Rivka Cook RN Position: [facility] RN Member Role: Primary Care Nurse Name: Daisy Brower RN Position: [facility] RN Member Role: Primary Care Nurse Name: Kimberly Skinner RN Position: [facility] RN Member Role: Primary Care Nurse Name: Abhishek Johnson RN Position: [facility] RN Member Role: Primary Care Nurse Name: Lani Torres RN Position: [facility] RN Member Role: Primary Care Nurse Name: Lesia Cuevas MD Position: [facility] Resident Member Role: PCP Address: Address: [address] [place] [address]- Name: Rene Pham RN Position: [facility] Outreach Member Role: Primary Care Nurse Name: Barbara Rae RN Position: [facility] AMB Nurse Member Role: Primary Care Nurse Name: Ina Renee RN Position: [facility] RN Member Role: Primary Care Nurse Name: Sabiha Torres RN Position: [facility] RN Member Role: Primary Care Nurse Name: Yesica Delong RN Position: [facility] ED RN W/OE and Tasks Member Role: Primary Care Nurse Name: Paula Earl RN Position: [facility] RN Member Role: Primary Care Nurse Name: Susan Miller RN Position: [facility] ED RN W/OE and Tasks Member Role: Primary Care Nurse Name: Pao Key Position: [facility] RN Member Role: Primary Care Nurse Name: Maris Trevino RN Position: [facility] ED RN W/OE and Tasks Member Role: Primary Care Nurse Name: Steph Gordillo RN Position: [facility] OB RN Member Role: Primary Care Nurse Name: Rene Ramos DO Position: [facility] Renal MD Member Role: Lifetime Consulting Physician Address: Address: [address] [place], [place] [address] [place] [place] [address]- Name: Ryder Matthews Position: [facility] RN Member Role: Primary Care Nurse Name: Mary Correia RN Position: [facility] ED RN W/OE and Tasks Member Role: Primary Care Nurse Name: Tierra Razo RN Position: [facility] RN Member Role: Primary Care Nurse Name: Librado Saucedo RN Position: [facility] ED RN W/OE and Tasks Member Role: Primary Care Nurse Name: Laron Davenport III, RN Position: [facility] RN Member Role: Primary Care Nurse Name: Danya Govea RN Position: [facility] RN Member Role: Primary Care Nurse Name: Idania Millard RN Position: [facility] RN Member Role: Primary Care Nurse Name: Blake Grant RN Position: [facility] SN RN Member Role: Primary Care Nurse Name: Mariella Ojeda RN Position: [facility] RN Member Role: Primary Care Nurse Name: Cari Khan RN Position: [facility] RN Member Role: Primary Care Nurse Name: Dequan Elliott RN Position: [facility] SN RN Member Role: Primary Care Nurse Name: Esmer Rankin RN Position: [facility] AMB Nurse Member Role: Primary Care Nurse Name: Thaddeus RNKaruna Position: [facility] RN Member Role: Primary Care Nurse Name: Suzanna Timmons RN Position: [facility] SN RN Member Role: Primary Care Nurse Name: Juno Torres RN Position: [facility] Onco RN Member Role: Primary Care Nurse Name: Yojana Dior RN Position: [facility] RN Member Role: Primary Care Nurse Name: Corby Lester RN Position: [facility] RN Member Role: Primary Care Nurse Name: Farideh Balderas RN Position: [facility] Progressive Care Nurse Member Role: Primary Care Nurse Name: Roxana Ann RN Position: [facility] Onco RN Member Role: Primary Care Nurse Name: Vanessa Shelton RN Position: [facility] RN Member Role: Primary Care Nurse Name: Derick Calixto RN Position: [facility] RN Member Role: Primary Care Nurse Name: Fariba Bradley RN Position: [facility] RN Member Role: Primary Care Nurse Name: Fariba Ornelas RN Position: [facility] NEO RN W/OE and Tasks Member Role: Primary Care Nurse Name: Steph Tierney RN Position: [facility] RN Member Role: Primary Care Nurse Name: Portia Baires RN Position: [facility] SN RN Member Role: Primary Care Nurse Name: Adamaris Ahmadi RN Position: [facility] NEO RN W/OE and Tasks Member Role: Primary Care Nurse Name: Leny Shanks RN Position: [facility] RN Supv Member Role: Primary Care Nurse Name: Steph Smith RN Position: [facility] RN Member Role: Primary Care Nurse Name: Casandra Robbins RN Position: [facility] RN Supv Member Role: Primary Care Nurse Name: Maris Crowell RN Position: [facility] RN Member Role: Primary Care Nurse Name: Coni Romero LPN Position: [facility] RN Member Role: Primary Care Nurse Name: Abigail Rabago RN Position: [facility] RN Member Role: Primary Care Nurse Name: Halina Burger RN Position: [facility] Onco RN Member Role: Primary Care Nurse Name: Linda Lockwood RN Position: [facility] Hospital Progressive Care Nurse Member Role: Primary Care Nurse Name: Dedra Chatman RN, I Position: [facility] RN Member Role: Primary Care Nurse Care Team Related Persons Name: JACKIE ALANIZ Address: [address] [place] [address] Name: JUNO MENA Address: home [address] [place] [address] Name: JOVITA GALARZA Address: home [address] [place] [address] Name: KARL GALARZA Address: home [address] [place] [address] Name: EZEKIEL GALARZA Address: home [address] [place] [address] Name: MICHAEL BARRETT Address: home [address] [place] [address] Name: SHAD TUBBS Address: home [address] [place] [id number]
--- OUTSIDE RECORDS SUMMARY | 2023-07-11 03:27 | XMS_ITS | Continuity of Care Document ---
Author Organization [facility] Address [address] [place] [address]- Care Team Providers Care Buttonhole Maker Hand Name Role Phone Lesia Cuevas MD Primary Care Physician [place] [facility] [place]): 03/25/23 - 04/24/23 [facility] Care [address] [place] [address] Attending Physician: [place] Aguero Admitting Physician: [place] [...] Comment: normal saline diluent added lot number [id number] expires 07/23/2022 2Result Comment: Afluria Medications allopurinol 100 mg oral tablet 100 mg, 1, tablet, By Mouth, Daily, # 90 tablet, Refills 11, Tot. Refills 11, Maintenance, 03/05/2411:43:00 EST, Route to Pharmacy Electronically, [facility]/pharmacy #[id number], Partial fill upon patient request if the prescription is for a schedule II opioid d... Start Date: 03/05/23 Status: Ordered clindamycin 1% topical lotion 1 application, Topically, 2 times a day, apply to L armpit lesions/bumps twice per day until healed, # 60 mL, 0 Refills, Maintenance, 10/24/21 15:35:00 EDT, Lotion, [facility]/pharmacy #[id number], [...] capsule, 2 Refills, Maintenance, 05/14/22 15:26:00 EDT, [facility], 163, cm, 05/12/22 16:01:00 EDT, Height, 61.5, kg, 05/10/2316:29:00 EDT, Dry Weight Start Date: 05/14/22 Status: Ordered Estrace Vaginal Cream 0.1 mg/g = 1 Gm, Vaginally, Daily at bedtime, # 90 Gm, 3 Refills, Maintenance, 12/06/21 14:57:00 EDT, [facility]/pharmacy #[id number], Partial fill [...] each, 6 Refills, Maintenance, 07/08/22 17:26:00 EDT, Ina, [id number], Partial fill upon patient request [...] 03/05/23 12:43:00 EST, Route to Pharmacy Electronically, [facility]/pharmacy #[id number], Partial fill upon patient request [...] 04/11/22 15:56:00 EST, Route to Pharmacy Electronically, [facility]/pharmacy #[id number], 163, cm, 04/11/22 15:32:00 EST, Height, 60.8, kg, 02/19/22 19:05:00 EST, Dry Weight Start Date: 04/11/22 Status: Ordered LORazepam 1 mg oral tablet 1 tablet = 1 mg, By Mouth, 2 times a day, for 7 days, # 14 tablet, 0 Refills, Acute 04/30/23 16:23:00 EST, 04/23/23 16:23:00 EST, Tablet, [facility]/pharmacy #1130, Partial fill upon patient request if the prescription is for a schedule II opioid drug., 163,... Start Date: 04/23/23 Stop Date: 04/30/23 Status: Ordered MiraLax oral powder for reconstitution = 17 Gm, By Mouth, Daily, dissolve in water before taking, # 255 Gm, 1 Refills, Maintenance, 04/11/22 21:05:00 EST, REC Powder, [facility]/pharmacy #1130, Partial fill upon patient request if the prescription is for a schedule II opioid drug., 17 Gm By Mouth... Start Date: 04/11/22 Status: Ordered nicotine 4 mg oral transmucosal gum See Instructions, CHEW 1 PIECE EVERY 2 HOURS NEEDED FOR SMOKING CESSATION, # 200 gum, 0 Refills,[facility] 146[facility], 160, cm, 08/01/21 21:18:00 EDT, Height, 72.9, kg, 08/01/21 21:18:00 EDT, Dry Weight Start Date: 08/05/21 Status: Ordered omeprazole 20 mg oral enteric coated capsule 1 capsule = 20 mg, By Mouth, Daily, # 90 capsule, 10 Refills, Maintenance, 10/24/21 12:29:00 EDT, [facility]/pharmacy #1130, Partial fill upon patient request if the prescription is for a schedule II opioiddrug., 160, cm, 10/24/21 11:46:00 EDT, Height, 72.9... Start Date: 10/24/21 Status: Ordered oxyCODONE 10 mg oral tablet 2 tablet = 20 mg, By Mouth, Every 4 hours, PRN as needed for pain, # 84 tablet, 0 Refills, Maintenance, 04/22/23 18:52:00 EST, Tablet, [facility]/pharmacy #1130, Partial fill upon patient request if the prescription is for a schedule II opioid drug., 163, cm... Start Date: 04/22/23 Stop Date: 04/29/23 Status: Ordered oxyCODONE 5 mg oral tablet 20 mg, 4, tablet, By Mouth, Every 4 hours, PRN, # 168 tablet, Refills 0, Tot. Refills 0, Maintenance, Pain , Severe, 03/11/23 14:59:00 EST, Route to Pharmacy Electronically, [facility]/pharmacy #[id number], Scripfor 5 mg tabs sent [...] 05/12/22 15:17:00 EDT, Route to Pharmacy Electronically, [facility]/pharmacy #[id number], Partial fill upon patient request if the prescription is for a schedule II opioid drug... Start Date: 05/12/22 Status: Ordered QUEtiapine 25 mg oral tablet 1, tablet, By Mouth, 2 times a day, PRN, # 90 tablet, Refills 0, Tot. Refills 0, Maintenance, NEEDED FOR AGITATION, 01/01/22 10:03:00 EST, Route to Pharmacy Electronically, [facility]/pharmacy #[id number], 160, cm, 10/24/21 [...] Care Team Personnel Name: Indiana Zuleta Position: [facility] Onco RN Member Role: Primary Care Nurse Name: Marisa Rosario RN Position: [facility] RN Member Role: Primary Care Nurse Name: Carmen Hdez RN Position: [facility] ED RN W/OE and Tasks Member Role: Primary Care Nurse Name: Jordon Cruz RN Position: [facility] ED RN W/OE and Tasks Member Role: Primary Care Nurse Name: Daisy Rushing RN Position: [facility] RN Member Role: Primary Care Nurse Name: Ana Faustin RN Position: [facility] RN Member Role: Primary Care Nurse Name: Corinna Fajardo RN Position: [facility] AMB Nurse Member Role: Primary Care Nurse Name: Ira Apodaca RN Position: [facility] ED RN W/OE and Tasks Member Role: Primary Care Nurse Name: Idania More RN Position: [facility] RN Member Role: Primary Care Nurse Name: Paola Rinaldi RN Position: [facility] RN Supv Member Role: Primary Care Nurse Name: Lian Joy RN Position: [facility] RN Member Role: Primary Care Nurse Name: Nikkie Sommers RN Position: [facility] RN Supv Member Role: Primary Care Nurse Name: Jasmine Ortega NP Position: [facility] Associate Professional Member Role: Primary Care Nurse Address: Address: [address] [facility] [place] [address]- Name: Rivka Cook RN Position: [facility] RN Member Role: Primary Care Nurse Name: Daisy Brower RN Position: [facility] RN Member Role: Primary Care Nurse Name: Kimberly Skinner RN Position: [facility] RN Member Role: Primary Care Nurse Name: Abhishek Johnson RN Position: [facility] RN Member Role: Primary Care Nurse Name: Lesia Cuevas MD Position: [facility] Resident Member Role: PCP Address: Address: [address] [place] [address]- Name: Rene Pham RN Position: [facility] Outreach Member Role: Primary Care Nurse Name: Barbara Rae RN Position: [facility] AMB Nurse Member Role: Primary Care Nurse Name: Ina Renee RN Position: [facility] RN Member Role: Primary Care Nurse Name: Yesica Delong RN Position: [facility] ED RN W/OE and Tasks Member Role: Primary Care Nurse Name: Paula Earl RN Position: [facility] RN Member Role: Primary Care Nurse Name: Susan Miller RN Position: [facility] ED RN W/OE and Tasks Member Role: Primary Care Nurse Name: Pao Key Position: [facility] RN Member Role: Primary Care Nurse Name: Maris Trevino RN Position: [facility] ED RN W/OE and Tasks Member Role: Primary Care Nurse Name: Steph Gordillo RN Position: [facility] OB RN Member Role: Primary Care Nurse Name: Rene Ramos DO Position: [facility] Renal MD Member Role: Lifetime Consulting Physician Address: Address: [address] [facility] [address] [facility] [place] [address]- Name: Ryder Matthews Position: [facility] RN Member Role: Primary Care Nurse Name: Mary Correia RN Position: [facility] ED RN W/OE and Tasks Member Role: Primary Care Nurse Name: Tierra Razo RN Position: [facility] RN Member Role: Primary Care Nurse Name: Librado Saucedo RN Position: [facility] ED RN W/OE and Tasks Member Role: Primary Care Nurse Name: Laron Davenport III, RN Position: [facility] RN Member Role: Primary Care Nurse Name: Danya Govea RN Position: [facility] RN Member Role: Primary Care Nurse Name: Idania Millard RN Position: [facility] RN Member Role: Primary Care Nurse Name: Blake Grant RN Position: [facility] SN RN Member Role: Primary Care Nurse Name: Mariella Ojeda RN Position: [facility] RN Member Role: Primary Care Nurse Name: Cari Khan RN Position: [facility] RN Member Role: Primary Care Nurse Name: Dequan Elliott RN Position: [facility] SN RN Member Role: Primary Care Nurse Name: Esmer Rankin RN Position: [facility] AMB Nurse Member Role: Primary Care Nurse Name: Suzanna Timmons RN Position: [facility] SN RN Member Role: Primary Care Nurse Name: Juno Torres RN Position: [facility] Onco RN Member Role: Primary Care Nurse Name: Yojana Dior RN Position: [facility] RN Member Role: Primary Care Nurse Name: Corby Lester RN Position: [facility] RN Member Role: Primary Care Nurse Name: Farideh Balderas RN Position: [facility] Pneumatic Tube Fitter Member Role: Primary Care Nurse Name: Roxana nAn RN Position: [facility] Onco RN Member Role: Primary Care Nurse Name: Vanessa Shelton RN Position: [facility] RN Member Role: Primary Care Nurse Name: Derick Calixto RN Position: [facility] RN Member Role: Primary Care Nurse Name: Fariba Bradley RN Position: [facility] RN Member Role: Primary Care Nurse Name: Fariba Ornelas RN Position: [facility] ED RN W/OE and Tasks Member Role: Primary Care Nurse Name: Steph Tierney RN Position: [facility] RN Member Role: Primary Care Nurse Name: Portia Baires RN Position: [facility] SN RN Member Role: Primary Care Nurse Name: Adamaris Ahmadi RN Position: [facility] ED RN W/OE and Tasks Member Role: Primary Care Nurse Name: Leny Shanks RN Position: [facility] RN Supv Member Role: Primary Care Nurse Name: Steph Smith RN Position: [facility] RN Member Role: Primary Care Nurse Name: Casandra Robbins RN Position: [facility] RN Supv Member Role: Primary Care Nurse Name: Maris Crowell RN Position: [facility] RN Member Role: Primary Care Nurse Name: Coni Romero LPN Position: [facility] RN Member Role: Primary Care Nurse Name: Abigail Rabago RN Position: [facility] RN Member Role: Primary Care Nurse Name: Halina Burger RN Position: [facility] Onco RN Member Role: Primary Care Nurse Name: Linda Lockwood RN Position: [facility] Hospital Pneumatic Tube Fitter Member Role: Primary Care Nurse Name: Dedra Chatman RN, I Position: [facility] RN Member Role: Primary Care Nurse Care Team Related Persons Name: JACKIE ALANIZ Address: [address] [place] [address] Name: JUNO MENA Address: home [address] [place] [address] Name: JOVITA GALARZA Address: home [address] [place] [address] Name: KARL GALARZA Address: home [address] [place] [address] Name: EZEKIEL GALARZA Address: home [address] [place] [address] Name: MICHAEL BARRETT Address: home [address] [place] [address] Name: SHAD TUBBS Address: home [address] [place] [id number]
--- OUTSIDE RECORDS SUMMARY | 2023-07-11 03:27 | XMS_ITS | Continuity of Care Document ---
Author Organization [facility] Address [address] [place] [address]- Care Team Providers Care Sales Special Agent Name Role Phone Lesia Cuevas MD Primary Care Physician Encounter [facility] Date(s): 05/07/23 - 06/06/[address] [address]- Allergies, Adverse Reactions, Alerts Substance Reaction Severity [...] Comment: normal saline diluent added lot number [id number] expires 07/23/2022 2Result Comment: Afluria Medications allopurinol 100 mg oral tablet 100 mg, 1, tablet, By Mouth, Daily, # 90 tablet, Refills 11, Tot. Refills 11, Maintenance, 03/05/2411:43:00 EST, Route to Pharmacy Electronically, [facility]/pharmacy #[id number], Partial fill upon [...] 03/05/23 12:43:00 EST, Route to Pharmacy Electronically, [facility]/pharmacy #[id number], Partial fill upon [...] days, # 14 tablet, 0 Refills, Acute 06/10/23 12:41:00 EDT, 06/03/23 12:41:00 EDT, Tablet, [facility], Partial fill upon patient request if the prescription is for a amado... Start Date: 06/03/23 Stop Date: 06/10/23 Status: Ordered omeprazole 20 mg oral enteric [...] pain, # 84 tablet, 0 Refills, Maintenance, 06/03/23 18:52:00 EDT, Tablet, [facility], Partial fill upon patient request if the prescription is for a schedule II opioid drug., 162, cm... Start Date: 06/03/23 Stop Date: 06/10/23 Status: Ordered Problem List Condition Confirmation Course [...] Care Nurse Name: Carmen Hdez RN Position: [facility] ED RN W/OE and Tasks Member Role: Primary Care Nurse Name: Jordon Cruz RN Position: [facility] ED RN W/OE and Tasks Member Role: Primary Care Nurse Name: Daisy Rushing RN Position: [facility] RN Member Role: Primary Care Nurse Name: Ana Faustin RN Position: [facility] RN Member Role: Primary Care Nurse Name: Ira Garnett Position: [facility] RN Supv Member Role: Primary Care Nurse Name: Corinna Fajardo RN Position: [facility] AMB Nurse Member Role: Primary Care Nurse Name: Ira Apodaca RN Position: [facility] ED RN W/OE and Tasks Member Role: Primary Care Nurse Name: Idania More RN Position: [facility] RN Member Role: Primary Care Nurse Name: Lian Joy RN Position: [facility] RN Member Role: Primary Care Nurse Name: Nikkie Sommers RN Position: [facility] RN Supv Member Role: Primary Care Nurse Name: Jasmine Ortega NP Position: [facility] Associate Professional Member Role: Primary Care Nurse Address: Address: [address] [place] [address]- Name: Rivka Cook RN Position: [facility] RN Member Role: Primary Care Nurse Name: Daisy Brower RN Position: [facility] RN Member Role: Primary Care Nurse Name: Kimberly Skinner RN Position: [facility] RN Member Role: Primary Care Nurse Name: Abhishek Johnson RN Position: [facility] RN Member Role: Primary Care Nurse Name: Lani Torres RN Position: [facility] RN Member Role: Primary Care Nurse Name: Lesia Cuevas MD Position: [facility] Resident Member Role: PCP Address: Address: [address] [place] [address]- [place] Name: Rene Pham RN Position: [facility] Outreach Member Role: Primary Care Nurse Name: Barbara Rae RN Position: [facility] AMB Nurse Member Role: Primary Care Nurse Name: Ina Renee RN Position: [facility] RN Member Role: Primary Care Nurse Name: Jeramie Rivers RN Position: [facility] Outreach Member Role: Primary Care Nurse Name: Sabiha Torres RN Position: [facility] RN Member Role: Primary Care Nurse Name: Yesica Delong RN Position: [facility] ED RN W/OE and Tasks Member Role: Primary Care Nurse Name: Paula Earl RN Position: [facility] RN Member Role: Primary Care Nurse Name: Susan Miller RN Position: [facility] ED RN W/OE and Tasks Member Role: Primary Care Nurse Name: Pao Key Position: [facility] RN Member Role: Primary Care Nurse Name: Maris Trevino RN Position: [facility] ED RN W/OE and Tasks Member Role: Primary Care Nurse Name: Steph Gordillo RN Position: [facility] OB RN Member Role: Primary Care Nurse Name: Rene Ramos DO Position: [facility] Renal MD Member Role: Lifetime Consulting Physician Address: Address: [address] [place], [place] [address] [place] [place] [address] Name: Ryder Matthews Position: [facility] RN Member Role: Primary Care Nurse Name: Mary Correia RN Position: [facility] ED RN W/OE and Tasks Member Role: Primary Care Nurse Name: Tierra Razo RN Position: [facility] RN Member Role: Primary Care Nurse Name: Librado Saucedo RN Position: [facility] ED RN W/OE and Tasks Member Role: Primary Care Nurse Name: Laron Davenport III, RN Position: [facility] RN Member Role: Primary Care Nurse Name: Danya Govea RN Position: [facility] RN Member Role: Primary Care Nurse Name: Idania Millard RN Position: [facility] RN Member Role: Primary Care Nurse Name: Blake Grant RN Position: [facility] SN RN Member Role: Primary Care Nurse Name: Mariella Ojeda RN Position: [facility] RN Member Role: Primary Care Nurse Name: Cari Khan RN Position: [facility] RN Member Role: Primary Care Nurse Name: Dequan Elliott RN Position: [facility] SN RN Member Role: Primary Care Nurse Name: Esmer Rankin RN Position: [facility] AMB Nurse Member Role: Primary Care Nurse Name: Karuna Travis RN Position: [facility] RN Member Role: Primary Care Nurse Name: Suzanna Timmons RN Position: [facility] SN RN Member Role: Primary Care Nurse Name: Juno Torres RN Position: [facility] Onco RN Member Role: Primary Care Nurse Name: Yojana Dior RN Position: [facility] RN Member Role: Primary Care Nurse Name: Corby Lester RN Position: [facility] RN Member Role: Primary Care Nurse Name: Farideh Balderas RN Position: [facility] Metal Furniture Assembly Supervisor Member Role: Primary Care Nurse Name: Roxana Ann RN Position: [facility] Onco RN Member Role: Primary Care Nurse Name: Vanessa Shelton RN Position: [facility] RN Member Role: Primary Care Nurse Name: Derick Calixto RN Position: [facility] RN Member Role: Primary Care Nurse Name: Fariba Bradley RN Position: [facility] RN Member Role: Primary Care Nurse Name: Fariba Onrelas RN Position: [facility] ED RN W/OE and Tasks Member Role: Primary Care Nurse Name: Steph Tierney RN Position: [facility] RN Member Role: Primary Care Nurse Name: Portia Baires RN Position: [facility] SN RN Member Role: Primary Care Nurse Name: Adamaris Ahmadi RN Position: [facility] ED RN W/OE and Tasks Member Role: Primary Care Nurse Name: Leny Shanks RN Position: [facility] RN Supv Member Role: Primary Care Nurse Name: Steph Smith RN Position: [facility] RN Member Role: Primary Care Nurse Name: Casandra Robbins RN Position: [facility] RN Supv Member Role: Primary Care Nurse Name: Maris Crowell RN Position: [facility] RN Member Role: Primary Care Nurse Name: Coni Romero LPN Position: [facility] RN Member Role: Primary Care Nurse Name: Abigail Rabago RN Position: [facility] RN Member Role: Primary Care Nurse Name: Halina Burger RN Position: [facility] Onco RN Member Role: Primary Care Nurse Name: Linda Lockwood RN Position: [facility] Metal Furniture Assembly Supervisor Member Role: Primary Care Nurse Name: Dedra Chatman RN, I Position: [facility] RN Member Role: Primary Care Nurse Care Team Related Persons Name: JACKIE ALANIZ Address: [address] [place] [address] Name: JUNO MENA Address: [address] [place] [address] Name: JOVITA GALARZA Address: home [address] [place] [address] Name: KARL GALARZA Address: home [address] [place] [address] Name: EZEKIEL GALARZA Address: home [address] [place] [address] Name: MICHAEL BARRETT Address: home [address] [place] [address] Name: SHAD TUBBS Address: [address] [place] [address]
--- OUTSIDE RECORDS SUMMARY | 2023-07-11 03:28 | XMS_ITS | Continuity of Care Document ---
Author Organization [facility] Address [address] [place] [address]- Care Team Providers Care Booster Assembler Name Role Phone Lesia Cuevas MD Primary Care Physician Encounter [facility] [place] Date(s): 05/08/23 - 06/07/[address] [address]- Allergies, Adverse Reactions, Alerts Substance Reaction Severity [...] Comment: normal saline diluent added lot number [id number] expires 07/23/2022 2Result Comment: Afluria Medications allopurinol 100 mg oral tablet 100 mg, 1, tablet, By Mouth, Daily, # 90 tablet, Refills 11, Tot. Refills 11, Maintenance, 03/05/2411:43:00 EST, Route to Pharmacy Electronically, [facility]/pharmacy #[id number], Partial fill upon patient [...] 03/05/23 12:43:00 EST, Route to Pharmacy Electronically, [facility]/pharmacy #[id number], Partial fill upon patient [...] Name: Carmen Hdez RN Position: [facility] ED RN W/OE and Tasks Member Role: Primary Care Nurse Name: Jordon Cruz RN Position: [facility] ED RN W/OE and Tasks Member Role: Primary Care Nurse Name: Daisy Rushing RN Position: [facility] RN Member Role: Primary Care Nurse Name: Ana Faustin RN Position: [facility] RN Member Role: Primary Care Nurse Name: Ira Garnett Position: [facility] RN Supv Member Role: Primary Care Nurse Name: Corinna Fajardo RN Position: [facility] AMB Nurse Member Role: Primary Care Nurse Name: Ira Apodaca RN Position: [facility] ED RN W/OE and Tasks Member Role: Primary Care Nurse Name: Idania More RN Position: [facility] RN Member Role: Primary Care Nurse Name: Lian Joy RN Position: [facility] RN Member Role: Primary Care Nurse Name: Nikkie Sommers RN Position: [facility] RN Supv Member Role: Primary Care Nurse Name: Jasmine Ortega NP Position: [facility] Associate Professional Member Role: Primary Care Nurse Address: Address: [address] [place] [address]- Name: Rivka Cook RN Position: [facility] RN Member Role: Primary Care Nurse Name: Daisy Brower RN Position: [facility] RN Member Role: Primary Care Nurse Name: Kimberly Skinner RN Position: [facility] RN Member Role: Primary Care Nurse Name: Abhishek Johnson RN Position: [facility] RN Member Role: Primary Care Nurse Name: Lani Torres RN Position: [facility] RN Member Role: Primary Care Nurse Name: Lesia Cuevas MD Position: [facility] Resident Member Role: PCP Address: Address: [address] [place] [id number]- [place] Name: Rene Pham RN Position: [facility] Outreach Member Role: Primary Care Nurse Name: Barbara Rae RN Position: [facility] AMB Nurse Member Role: Primary Care Nurse Name: Ina Renee RN Position: [facility] RN Member Role: Primary Care Nurse Name: Jeramie Rivers RN Position: [facility] Outreach Member Role: Primary Care Nurse Name: Sabiha Torres RN Position: [facility] RN Member Role: Primary Care Nurse Name: Yesica Delong RN Position: [facility] ED RN W/OE and Tasks Member Role: Primary Care Nurse Name: Paula Earl RN Position: [facility] RN Member Role: Primary Care Nurse Name: Susan Miller RN Position: [facility] ED RN W/OE and Tasks Member Role: Primary Care Nurse Name: Pao Key Position: [facility] RN Member Role: Primary Care Nurse Name: Maris Trevino RN Position: [facility] ED RN W/OE and Tasks Member Role: Primary Care Nurse Name: Steph Gordillo RN Position: [facility] OB RN Member Role: Primary Care Nurse Name: Rene Ramos DO Position: [facility] Renal MD Member Role: Lifetime Consulting Physician Address: Address: [address] [place], [place] [address] [place], [place] [address] Name: Ryder Matthews Position: [facility] RN Member Role: Primary Care Nurse Name: Mary Correia RN Position: [facility] ED RN W/OE and Tasks Member Role: Primary Care Nurse Name: Tierra Razo RN Position: [facility] RN Member Role: Primary Care Nurse Name: Librado Saucedo RN Position: [facility] ED RN W/OE and Tasks Member Role: Primary Care Nurse Name: Laron Davenport III, RN Position: [facility] RN Member Role: Primary Care Nurse Name: Danya Govea RN Position: [facility] RN Member Role: Primary Care Nurse Name: Idania Millard RN Position: [facility] RN Member Role: Primary Care Nurse Name: Blake Grant RN Position: [facility] SN RN Member Role: Primary Care Nurse Name: Mariella Ojeda RN Position: [facility] RN Member Role: Primary Care Nurse Name: Cari Khan RN Position: [facility] RN Member Role: Primary Care Nurse Name: Dequan Elliott RN Position: [facility] SN RN Member Role: Primary Care Nurse Name: Esmer Rankin RN Position: [facility] AMB Nurse Member Role: Primary Care Nurse Name: Karuna Travis RN Position: [facility] RN Member Role: Primary Care Nurse Name: Suzanna Timmons RN Position: [facility] SN RN Member Role: Primary Care Nurse Name: Juno Torres RN Position: [facility] Onco RN Member Role: Primary Care Nurse Name: Yojana Dior RN Position: [facility] RN Member Role: Primary Care Nurse Name: Corby Lester RN Position: [facility] RN Member Role: Primary Care Nurse Name: Farideh Balderas RN Position: [facility] Technical Internship Member Role: Primary Care Nurse Name: Roxana Ann RN Position: [facility] Onco RN Member Role: Primary Care Nurse Name: Vanessa Shelton RN Position: [facility] RN Member Role: Primary Care Nurse Name: Derick Calixto RN Position: [facility] RN Member Role: Primary Care Nurse Name: Fariba Bradley RN Position: [facility] RN Member Role: Primary Care Nurse Name: Fariba Ornelas RN Position: [facility] ED RN W/OE and Tasks Member Role: Primary Care Nurse Name: Steph Tierney RN Position: [facility] RN Member Role: Primary Care Nurse Name: Portia Baires RN Position: [facility] SN RN Member Role: Primary Care Nurse Name: Adamaris Ahmadi RN Position: [facility] ED RN W/OE and Tasks Member Role: Primary Care Nurse Name: Leny Shanks RN Position: [facility] RN Supv Member Role: Primary Care Nurse Name: Steph Smith RN Position: [facility] RN Member Role: Primary Care Nurse Name: Casandra Robbins RN Position: [facility] RN Supv Member Role: Primary Care Nurse Name: Maris Crowell RN Position: [facility] RN Member Role: Primary Care Nurse Name: Coni Romero LPN Position: [facility] RN Member Role: Primary Care Nurse Name: Abigail Rabago RN Position: [facility] RN Member Role: Primary Care Nurse Name: Halina Burger RN Position: [facility] Onco RN Member Role: Primary Care Nurse Name: Linda Lockwood RN Position: [facility] Technical Internship Member Role: Primary Care Nurse Name: Dedra Chatman RN, I Position: [facility] RN Member Role: Primary Care Nurse Care Team Related Persons Name: JACKIE ALANIZ Address: [address] [place] [address] Name: JUNO MENA Address: [address] [place] [address] Name: JOVITA GALARZA Address: home [address] [place] [address] Name: KARL GALARZA Address: home [address] [place] [address] Name: EZEKIEL GALARZA Address: [address] [place] [address] Name: MICHAEL BARRETT Address: home [address] [place] [address] Name: SHAD TUBBS Address: [address] [place] [address]
--- OUTSIDE RECORDS SUMMARY | 2023-07-11 03:28 | XMS_ITS | Continuity of Care Document ---
Author Organization [facility] Address [address] [place] [address]- Care Team Providers Care Metal Furniture Assembly Supervisor Name Role Phone Lesia Cuevas MD Primary Care Physician Encounter [facility] Date(s): 01/01/23 - 02/01/[address] [address]- Attending Physician: Suzan ARCHIBALD(Hem/Onc), Jordon Lainez Admitting [...] Comment: normal saline diluent added lot number [id number] expires 07/23/2022 2Result Comment: Afluria Medications allopurinol 100 mg oral tablet 100 mg, 1, tablet, By Mouth, Daily, # 90 tablet, Refills 1, Tot. Refills 1, Maintenance, 10/24/21 13:18:00 EDT, Route to Pharmacy Electronically, [facility]/pharmacy #1130, Partial fill upon patient requestif the prescription is for a schedule II opioid lynn... Start Date: 10/24/21 Status: Ordered clindamycin 1% topical lotion 1 application, Topically, 2 times a day, apply to L armpit lesions/bumps twice per day until healed, # 60 mL, 0 Refills, Maintenance, 10/24/21 15:35:00 EDT, Lotion, [facility]/pharmacy #1130, Partial fill upon patient request if the prescription is for a amado... Start Date: 10/24/21 Status: Ordered Daily Lazara oral tablet 1 tablet, By Mouth, Daily Start Date: 07/03/21 Status: Ordered diphenhydrAMINE 25 mg oral capsule 1 capsule, By Mouth, 3 times a day, PRN NEEDED FOR ITCHING, # 90 capsule, 2 Refills, Maintenance, 05/14/22 15:26:00 EDT, [id number], 163, cm, 05/12/22 16:01:00 EDT, Height, 61.5, kg, 05/10/2316:29:00 EDT, Dry Weight Start Date: 05/14/22 Status: Ordered Estrace Vaginal Cream 0.1 mg/g = 1 Gm, Vaginally, Daily at bedtime, # 90 Gm, 3 Refills, Maintenance, 12/06/21 14:57:00 EDT, [facility]/pharmacy #1130, Partial fill upon patient request if the prescription is for a schedule II opioid drug., 160, cm, 12/06/21 14:22:00 EDT, Height, 72.9, kg,... Start Date: 12/06/21 Status: Ordered Eucerin Plus topical lotion 1 application, Topically, 2 times a day, PRN for dry skin, # 180 mL, 0 Refills, Maintenance, 03/12/22 16:28:00 EST, Lotion, [facility]/pharmacy #1130, Partial fill upon patient request if the prescription is for a schedule II opioid drug., 1 application Topi... Start Date: 03/12/22 Status: Ordered Flonase 50 mcg/inh nasal spray 1 sprays, Nares, Both, 2 times a day, # 1 each, 6 Refills, Maintenance, 07/08/22 17:26:00 EDT, [place], Partial fill upon patient request [...] 15:56:00 EST, Route to Pharmacy Electronically, [facility]/pharmacy #1130, 163, cm, 04/11/22 15:32:00 EST, Height, 60.8, kg, 02/19/22 19:05:00 EST, Dry Weight Start Date: 04/11/22 Status: Ordered LORazepam 1 mg oral tablet 1 tablet = 1 mg, By Mouth, 2 times a day, for 7 days, # 14 tablet, 0 Refills, Acute 02/05/23 16:23:00 EST, 01/29/23 16:23:00 EST, Tablet, [facility]/pharmacy #1026, Partial fill upon patient request if the prescription is for a schedule II opioid drug., 163,... Start Date: 01/29/23 Stop Date: 02/05/23 Status: Ordered MiraLax oral powder for reconstitution = 17 Gm, By Mouth, Daily, dissolve in water before taking, # 255 Gm, 1 Refills, Maintenance, 04/11/22 21:05:00 EST, REC Powder, [facility]/pharmacy #1130, Partial fill upon patient request if the prescription is for a schedule II opioid drug., 17 Gm By Mouth... Start Date: 04/11/22 Status: Ordered nicotine 4 mg oral transmucosal gum See Instructions, CHEW 1 PIECE EVERY 2 HOURS NEEDED FOR SMOKING CESSATION, # 200 gum, 0 Refills,[facility] [place] [address], 160, cm, 08/01/21 21:18:00 EDT, Height, 72.9, kg, 08/01/21 21:18:00 EDT, Dry Weight Start Date: 08/05/21 Status: Ordered omeprazole 20 mg oral enteric coated capsule 1 capsule = 20 mg, By Mouth, Daily, # 90 capsule, 10 Refills, Maintenance, 10/24/21 12:29:00 EDT, [facility]/pharmacy #1130, Partial fill upon patient request if the prescription is for a schedule II opioiddrug., 160, cm, 10/24/21 11:46:00 EDT, Height, 72.9... Start Date: 10/24/21 Status: Ordered oxyCODONE 10 mg oral tablet 2 tablet = 20 mg, By Mouth, Every 4 hours, PRN as needed for pain, # 84 tablet, 0 Refills, Maintenance, 01/29/23 16:22:00 EST, Tablet, [facility]/pharmacy #1026, Partial fill upon patient request if the prescription is for a schedule II opioid drug., 163, cm... Start Date: 01/29/23 Stop Date: 02/05/23 Status: Ordered oxyCODONE 5 mg oral tablet 20 mg, 4, tablet, By Mouth, Every 4 hours, PRN, # 168 tablet, Refills 0, Tot. Refills 0, Maintenance, Pain , Severe, 07/18/22 12:19:00 EDT, Route to Pharmacy Electronically, [facility]/pharmacy #1130, Scripfor 5 mg tabs sent [...] 15:17:00 EDT, Route to Pharmacy Electronically, [facility]/pharmacy #1130, Partial fill upon patient request if the prescription is for a schedule II opioid drug... Start Date: 05/12/22 Status: Ordered QUEtiapine 25 mg oral tablet 1, tablet, By Mouth, 2 times a day, PRN, # 90 tablet, Refills 0, Tot. Refills 0, Maintenance, NEEDED FOR AGITATION, 01/01/22 10:03:00 EST, Route to Pharmacy Electronically, [facility]/pharmacy #1130, 160, cm, 10/24/21 11:46:00 EDT, Height, 72.9, kg, 08/01... Start Date: 01/01/22 Status: Ordered sodium zirconium cyclosilicate 10 g oral powder for reconstitution = 5 Gm, By Mouth, Every Thursday and , # 30 each, 0 Refills, Maintenance, 02/24/22 10:38:00 EST, [facility]/pharmacy #1130, Partial fill upon [...] Care Team Personnel Name: Indiana Zuleta Position: [facility] Onco RN Member Role: Primary Care Nurse Name: Naila Hinds RN Position: [facility] RN Member Role: Primary Care Nurse Name: Marisa Rosario RN Position: [facility] RN Member Role: Primary Care Nurse Name: Carmen Hdez RN Position: [facility] ED RN W/OE and Tasks Member Role: Primary Care Nurse Name: Jordon Cruz RN Position: [facility] ED RN W/OE and Tasks Member Role: Primary Care Nurse Name: Daisy Rushing RN Position: [facility] RN Member Role: Primary Care Nurse Name: Ana Faustin RN Position: [facility] RN Member Role: Primary Care Nurse Name: Corinna Fajardo RN Position: [facility] AMB Nurse Member Role: Primary Care Nurse Name: Ira Apodaca RN Position: [facility] ED RN W/OE and Tasks Member Role: Primary Care Nurse Name: Idania More RN Position: [facility] RN Member Role: Primary Care Nurse Name: Paola Rinaldi RN Position: [facility] RN Supv Member Role: Primary Care Nurse Name: Lian Joy RN Position: [facility] RN Member Role: Primary Care Nurse Name: Nikkie Sommers RN Position: [facility] RN Supv Member Role: Primary Care Nurse Name: Jasmine Ortega NP Position: [facility] Associate Professional Member Role: Primary Care Nurse Address: Address: [address] [place] [address] Name: Rivka Cook RN Position: [facility] RN Member Role: Primary Care Nurse Name: Daisy Brower RN Position: [facility] RN Member Role: Primary Care Nurse Name: Kimberly Skinner RN Position: [facility] RN Member Role: Primary Care Nurse Name: Abhishek Johnson RN Position: [facility] RN Member Role: Primary Care Nurse Name: Lesia Cuevas MD Position: [facility] Resident Member Role: PCP Address: Address: [address] [place] [id number]- [place] Name: Barbara Rae RN Position: [facility] AMB Nurse Member Role: Primary Care Nurse Name: Ina Renee RN Position: [facility] RN Member Role: Primary Care Nurse Name: Yesica Delong RN Position: [facility] ED RN W/OE and Tasks Member Role: Primary Care Nurse Name: Paula Earl RN Position: [facility] RN Member Role: Primary Care Nurse Name: Suasn Miller RN Position: [facility] SN RN Member Role: Primary Care Nurse Name: Pao Key Position: [facility] RN Member Role: Primary Care Nurse Name: Maris Trevino RN Position: [facility] ED RN W/OE and Tasks Member Role: Primary Care Nurse Name: Setph Gordillo RN Position: [facility] OB RN Member Role: Primary Care Nurse Name: Rene Ramos DO Position: [facility] Renal MD Member Role: Lifetime Consulting Physician Address: Address: [address] [place], [place] [address] [place] [place] [address]- Name: Ryder Matthews Position: [facility] RN Member Role: Primary Care Nurse Name: Mary Correia RN Position: [facility] ED RN W/OE and Tasks Member Role: Primary Care Nurse Name: Tierra Razo RN Position: [facility] RN Member Role: Primary Care Nurse Name: Librado Saucedo RN Position: [facility] ED RN W/OE and Tasks Member Role: Primary Care Nurse Name: Laron Davenport III, RN Position: [facility] RN Member Role: Primary Care Nurse Name: Danya Govea RN Position: [facility] RN Member Role: Primary Care Nurse Name: Idania Millard RN Position: [facility] RN Member Role: Primary Care Nurse Name: Blake Grant RN Position: [facility] SN RN Member Role: Primary Care Nurse Name: Mariella Ojeda RN Position: [facility] RN Member Role: Primary Care Nurse Name: Yaquelin Dawkins RN Position: [facility] RN Member Role: Primary Care Nurse Name: Cari Khan RN Position: [facility] RN Member Role: Primary Care Nurse Name: Dequan Elliott RN Position: [facility] SN RN Member Role: Primary Care Nurse Name: Esmer Rankin RN Position: [facility] AMB Nurse Member Role: Primary Care Nurse Name: Suzanna Timmons RN Position: [facility] SN RN Member Role: Primary Care Nurse Name: Juno Torres RN Position: [facility] Onco RN Member Role: Primary Care Nurse Name: Yojana Dior RN Position: [facility] RN Member Role: Primary Care Nurse Name: Farideh Balderas RN Position: [facility] Physician Director Member Role: Primary Care Nurse Name: Roxana Ann RN Position: [facility] RN Member Role: Primary Care Nurse Name: Vanessa Shelton RN Position: [facility] RN Member Role: Primary Care Nurse Name: Derick Calixto RN Position: [facility] RN Member Role: Primary Care Nurse Name: Fariba Bradley RN Position: [facility] RN Member Role: Primary Care Nurse Name: Fariba Ornelas RN Position: [facility] ED RN W/OE and Tasks Member Role: Primary Care Nurse Name: Steph Tierney RN Position: [facility] RN Member Role: Primary Care Nurse Name: Portia Baires RN Position: [facility] SN RN Member Role: Primary Care Nurse Name: Adamaris Ahmadi RN Position: [facility] ED RN W/OE and Tasks Member Role: Primary Care Nurse Name: Leny Shanks RN Position: [facility] RN Supv Member Role: Primary Care Nurse Name: Steph Smith RN Position: [facility] RN Member Role: Primary Care Nurse Name: Casandra Robbins RN Position: [facility] RN Supv Member Role: Primary Care Nurse Name: Maris Crowell RN Position: [facility] RN Member Role: Primary Care Nurse Name: Coni Romero LPN Position: [facility] RN Member Role: Primary Care Nurse Name: Abigail Rabago RN Position: [facility] RN Member Role: Primary Care Nurse Name: Halina Burger RN Position: [facility] Onco RN Member Role: Primary Care Nurse Name: Linda Lockwood RN Position: [facility] Hospital Clinic Physician Director Member Role: Primary Care Nurse Name: Dedra Chatman RN, I Position: [facility] RN Member Role: Primary Care Nurse Name: David Oquendo RN Position: [facility] RN Member Role: Primary Care Nurse Care Team Related Persons Name: JACKIE ALANIZ Address: home [address] [place] [address] Name: JUNO MENA Address: [address] [place] [address] Name: JOVITA GALARZA Address: home [address] [place] [address] Name: KARL GALARZA Address: home [address] [place] [address] Name: EZEKIEL GALARZA Address: [address] [place] [address] Name: MICHAEL BARRETT Address: home [address] [place] [address] Name: SHAD TUBBS Address: home [address] [place] [id number]
--- OUTSIDE RECORDS SUMMARY | 2023-07-11 03:28 | XMS_ITS | Continuity of Care Document ---
Author Organization [facility] Address [address] [place] [address]- Care Team Providers Care Ob Tech Name Role Phone Lesia Cuevas MD Primary Care Physician Encounter [facility] Date(s): 05/07/23 - 06/06/[address] [address]- Allergies, Adverse Reactions, Alerts Substance Reaction Severity [...] Comment: normal saline diluent added lot number [id number] expires 07/23/2022 2Result Comment: Afluria Medications allopurinol 100 mg oral tablet 100 mg, 1, tablet, By Mouth, Daily, # 90 tablet, Refills 11, Tot. Refills 11, Maintenance, 03/05/2411:43:00 EST, Route to Pharmacy Electronically, [facility]/pharmacy #[id number], Partial fill upon patient request if [...] 03/05/23 12:43:00 EST, Route to Pharmacy Electronically, [facility]/pharmacy #[id number], Partial fill upon patient request if [...] Care Nurse Name: Carmen Hdez RN Position: [facility] ED RN W/OE and Tasks Member Role: Primary Care Nurse Name: Jordon Cruz RN Position: [facility] ED RN W/OE and Tasks Member Role: Primary Care Nurse Name: Daisy Rushing RN Position: [facility] RN Member Role: Primary Care Nurse Name: Ana Faustin RN Position: [facility] RN Member Role: Primary Care Nurse Name: Ira Garnett Position: [facility] RN Supv Member Role: Primary Care Nurse Name: Corinna Fajardo RN Position: [facility] AMB Nurse Member Role: Primary Care Nurse Name: Ira Apodaca RN Position: [facility] ED RN W/OE and Tasks Member Role: Primary Care Nurse Name: Idania More RN Position: [facility] RN Member Role: Primary Care Nurse Name: Lian Joy RN Position: [facility] RN Member Role: Primary Care Nurse Name: Nikkie Sommers RN Position: [facility] RN Supv Member Role: Primary Care Nurse Name: Jasmine Ortega NP Position: [facility] Associate Professional Member Role: Primary Care Nurse Address: Address: [address] [place] [address]- Name: Rivka Cook RN Position: [facility] RN Member Role: Primary Care Nurse Name: Daisy Brower RN Position: [facility] RN Member Role: Primary Care Nurse Name: Kimberly Skinner RN Position: [facility] RN Member Role: Primary Care Nurse Name: Abhishek Johnson RN Position: [facility] RN Member Role: Primary Care Nurse Name: Lani Torres RN Position: [facility] RN Member Role: Primary Care Nurse Name: Lesia Cuevas MD Position: [facility] Resident Member Role: PCP Address: Address: [address] [place] [address]- [place] Name: Rene Pham RN Position: [facility] Outreach Member Role: Primary Care Nurse Name: Barbara Rae RN Position: [facility] AMB Nurse Member Role: Primary Care Nurse Name: Ina Renee RN Position: [facility] RN Member Role: Primary Care Nurse Name: Jeramie Rivers RN Position: [facility] Outreach Member Role: Primary Care Nurse Name: Sabiha Torres RN Position: [facility] RN Member Role: Primary Care Nurse Name: Yesica Delong RN Position: [facility] ED RN W/OE and Tasks Member Role: Primary Care Nurse Name: Paula Earl RN Position: [facility] RN Member Role: Primary Care Nurse Name: Susan Miller RN Position: [facility] ED RN W/OE and Tasks Member Role: Primary Care Nurse Name: Pao Key Position: [facility] RN Member Role: Primary Care Nurse Name: Maris Trevino RN Position: [facility] ED RN W/OE and Tasks Member Role: Primary Care Nurse Name: Steph Gordillo RN Position: [facility] OB RN Member Role: Primary Care Nurse Name: Rene Ramos DO Position: [facility] Renal MD Member Role: Lifetime Consulting Physician Address: Address: [address] [place], [place] [address] [place], [place] [address] Name: Ryder Matthews Position: [facility] RN Member Role: Primary Care Nurse Name: Mary Correia RN Position: [facility] ED RN W/OE and Tasks Member Role: Primary Care Nurse Name: Tierra Razo RN Position: [facility] RN Member Role: Primary Care Nurse Name: Librado Saucedo RN Position: [facility] ED RN W/OE and Tasks Member Role: Primary Care Nurse Name: Laron Davenport III, RN Position: [facility] RN Member Role: Primary Care Nurse Name: Danya Govea RN Position: [facility] RN Member Role: Primary Care Nurse Name: Idania Millard RN Position: [facility] RN Member Role: Primary Care Nurse Name: Blake Grant RN Position: [facility] SN RN Member Role: Primary Care Nurse Name: Mariella Ojeda RN Position: [facility] RN Member Role: Primary Care Nurse Name: Cari Khan RN Position: [facility] RN Member Role: Primary Care Nurse Name: Dequan Elliott RN Position: [facility] SN RN Member Role: Primary Care Nurse Name: Esmer Rankin RN Position: [facility] AMB Nurse Member Role: Primary Care Nurse Name: Karuna Travis RN Position: [facility] RN Member Role: Primary Care Nurse Name: Suzanna Timmons RN Position: [facility] SN RN Member Role: Primary Care Nurse Name: Juno Torres RN Position: [facility] Onco RN Member Role: Primary Care Nurse Name: Yojana Dior RN Position: [facility] RN Member Role: Primary Care Nurse Name: Corby Lester RN Position: [facility] RN Member Role: Primary Care Nurse Name: Farideh Balderas RN Position: [facility] Transmission Engineer Member Role: Primary Care Nurse Name: Roxana Ann RN Position: [facility] Onco RN Member Role: Primary Care Nurse Name: Vanessa Shelton RN Position: [facility] RN Member Role: Primary Care Nurse Name: Derick Calixto RN Position: [facility] RN Member Role: Primary Care Nurse Name: Fariba Bradley RN Position: [facility] RN Member Role: Primary Care Nurse Name: Fariba Ornelas RN Position: [facility] ED RN W/OE and Tasks Member Role: Primary Care Nurse Name: Steph Tierney RN Position: [facility] RN Member Role: Primary Care Nurse Name: Portia Baires RN Position: [facility] SN RN Member Role: Primary Care Nurse Name: Adamaris Ahmadi RN Position: [facility] ED RN W/OE and Tasks Member Role: Primary Care Nurse Name: Leny Shanks RN Position: [facility] RN Supv Member Role: Primary Care Nurse Name: Steph Smith RN Position: [facility] RN Member Role: Primary Care Nurse Name: Casandra Robbins RN Position: [facility] RN Supv Member Role: Primary Care Nurse Name: Maris Crowell RN Position: [facility] RN Member Role: Primary Care Nurse Name: Coni Romero LPN Position: [facility] RN Member Role: Primary Care Nurse Name: Abigail Rabago RN Position: [facility] RN Member Role: Primary Care Nurse Name: Halina Burger RN Position: [facility] Onco RN Member Role: Primary Care Nurse Name: Linda Lockwood RN Position: [facility] Transmission Engineer Member Role: Primary Care Nurse Name: Dedra Chatman RN, I Position: [facility] RN Member Role: Primary Care Nurse Care Team Related Persons Name: JACKIE ALANIZ Address: home [address] [place] [address] Name: JUNO MENA Address: home [address] [place] [address] Name: JOVITA GALARZA Address: home [address] [place] [address] Name: KARL GALARZA Address: home [address] [place] [address] Name: EZEKIEL GALARZA Address: home [address] [place] [address] Name: MICHAEL BARRETT Address: home [address] [place] [address] Name: SHAD TUBBS Address: home [address] [place] [address]
--- OUTSIDE RECORDS SUMMARY | 2023-07-11 03:28 | XMS_ITS | Continuity of Care Document ---
Author Organization [facility] Address [address] [place] [address]- Care Team Providers Care Terrazzo Finisher Helper Name Role Phone Lesia Cuevas MD Primary Care Physician Encounter [facility] Date(s): 09/24/22 - 03/08/23 [facility] [address] [place] [address] Discharge Disposition: A-D/C Home Attending Physician: Suzan [...] Comment: normal saline diluent added lot number [id number] expires 07/23/2022 2Result Comment: Afluria Medications allopurinol 100 mg oral tablet 100 mg, 1, tablet, By Mouth, Daily, # 90 tablet, Refills 11, Tot. Refills 11, Maintenance, 03/05/2411:43:00 EST, [id number] Partial fill upon patient request if the prescription is for a schedule II opioid d... Start Date: 03/05/23 Status: Ordered clindamycin 1% topical lotion 1 application, Topically, 2 times a day, apply to L armpit lesions/bumps twice per day until healed, # 60 mL, 0 Refills, Maintenance, 10/24/21 15:35:00 EDT, Lotion, [facility]/pharmacy #1130, Partial fill upon patient [...] capsule, 2 Refills, Maintenance, 05/14/22 15:26:00 EDT, [facility], 163, cm, 05/12/22 16:01:00 EDT, Height, 61.5, kg, 05/10/2316:29:00 EDT, Dry Weight Start Date: 05/14/22 Status: Ordered Estrace Vaginal Cream 0.1 mg/g = 1 Gm, Vaginally, Daily at bedtime, # 90 Gm, 3 Refills, Maintenance, 12/06/21 14:57:00 EDT, [facility]/pharmacy #1130, Partial fill upon patient request if the prescription is for a schedule II opioid drug., 160, cm, 12/06/21 14:22:00 EDT, Height, 72.9, kg,... Start Date: 12/06/21 Status: Ordered Eucerin Plus topical lotion 1 application, Topically, 2 times a day, PRN for dry skin, # 180 mL, 0 Refills, Maintenance, 03/12/22 16:28:00 EST, Lotion, [facility]/pharmacy #1130, Partial fill upon patient request if the prescription is for a schedule II opioid drug., 1 application Topi... Start Date: 03/12/22 Status: Ordered Flonase 50 mcg/inh nasal spray 1 sprays, Nares, Both, 2 times a day, # 1 each, 6 Refills, Maintenance, 07/08/22 17:26:00 EDT, [place], [facility], Partial fill upon patient request [...] 03/05/23 12:43:00 EST, Route to Pharmacy Electronically, [facility]/pharmacy #1026, Partial fill upon patient [...] 04/11/22 15:56:00 EST, Route to Pharmacy Electronically, [facility]/pharmacy #1130, 163, cm, 04/11/22 15:32:00 EST, Height, 60.8, kg, 02/19/22 19:05:00 EST, Dry Weight Start Date: 04/11/22 Status: Ordered LORazepam 1 mg oral tablet 1 tablet = 1 mg, By Mouth, 2 times a day, for 7 days, # 14 tablet, 0 Refills, Acute 03/12/23 16:23:00 EST, 03/05/23 16:23:00 EST, Tablet, [facility]/pharmacy #1026, Partial fill upon patient request if the prescription is for a schedule II opioid drug., 163,... Start Date: 03/05/23 Stop Date: 03/12/23 Status: Ordered MiraLax oral powder for reconstitution = 17 Gm, By Mouth, Daily, dissolve in water before taking, # 255 Gm, 1 Refills, Maintenance, 04/11/22 21:05:00 EST, REC Powder, [facility]/pharmacy #1130, Partial fill upon patient request if the prescription is for a schedule II opioid drug., 17 Gm By Mouth... Start Date: 04/11/22 Status: Ordered nicotine 4 mg oral transmucosal gum See Instructions, CHEW 1 PIECE EVERY 2 HOURS NEEDED FOR SMOKING CESSATION, # 200 gum, 0 Refills,[id number], 160, cm, 08/01/21 21:18:00 EDT, Height, 72.9, kg, 08/01/21 21:18:00 EDT, Dry Weight Start Date: 08/05/21 Status: Ordered omeprazole 20 mg oral enteric coated capsule 1 capsule = 20 mg, By Mouth, Daily, # 90 capsule, 10 Refills, Maintenance, 10/24/21 12:29:00 EDT, [facility]/pharmacy #1130, Partial fill upon patient request if the prescription is for a schedule II opioiddrug., 160, cm, 10/24/21 11:46:00 EDT, Height, 72.9... Start Date: 10/24/21 Status: Ordered oxyCODONE 10 mg oral tablet 2 tablet = 20 mg, By Mouth, Every 4 hours, PRN as needed for pain, # 84 tablet, 0 Refills, Maintenance, 02/26/23 16:22:00 EST, Tablet, [facility], Partial fill upon patient request if the prescription is for a schedule II opioid drug., 163, cm... Start Date: 02/26/23 Stop Date: 03/05/23 Status: Ordered oxyCODONE 5 mg oral tablet 20 mg, 4, tablet, By Mouth, Every 4 hours, PRN, # 168 tablet, Refills 0, Tot. Refills 0, Maintenance, Pain , Severe, 03/04/23 11:31:00 EST, Route to Pharmacy Electronically, [facility]/pharmacy #1026, Scripfor 5 mg tabs sent as 10 mg tabs backordered. Part... Start Date: 03/04/23 Stop Date: 03/11/23 Status: Ordered ProAir HFA 90 mcg/inh inhalation aerosol 2 puffs, Inhalation, Every 6 hours Start Date: 07/03/21 Status: Ordered pyridoxine 50 mg oral tablet 50 mg, 1, tablet, By Mouth, Daily, # 30 tablet, Refills 0, Tot. Refills 0, Maintenance, 05/12/22 15:17:00 EDT, Route to Pharmacy Electronically, [facility]/pharmacy #1130, Partial fill upon patient [...] Role: Primary Care Nurse Address: Address: [address] [place] [address]- [place] Name: Rivka Cook RN [facility]: [facility] [place] Resident Member Role: PCP Address: Address: [address] [place] [address]- [place] Name: Barbara Rae RN Position: [facility] [...] Member Role: Lifetime Consulting Physician Address: Address: [address] [place] [address] [address] [facility] [place] [address]- [place] Name: Ryder Matthews Position: [facility] RN Member Role: Primary Care Nurse Name: Mary Correia RN Position: [facility] ED RN W/OE and Tasks Member Role: Primary Care Nurse Name: Tierra Razo RN Position: [facility] RN Member Role: Primary Care Nurse Name: Sheryl RNLibrado Position: [facility] RN Member Role: Primary Care Nurse Name: aFrideh Balderas RN Position: [facility] Communications Equipment Installer Member Role: Primary Care Nurse Name: Roxana [...] [facility] Communications Equipment Installer Member Role: Primary Care Nurse Name: Dedra Chatman RN, I Position: [facility] RN Member Role: Primary Care Nurse Name: David Oquendo RN Position: [facility] RN Member Role: Primary Care Nurse Name: Suzan ARCHIBALD(Hem/Onc)Jordon Position: [facility] Physician - Oncology Med Service: Hematology & Oncology Member Role: Admitting Physician Address: Address: [address] [place] [address] for [facility] [place] [address]- [place] Care Team Related Persons Name: KATTY JACKIE Address: [address] [place] [address] Name: JUNO MENA Address: [address] [place] [address] Name: JOVITA GALARZA Address: [address] [place] [address] Name: KARL GALARZA Address: home [address] [place] [address] Name: EZEKIEL GALARZA Address: home [address] [place] [address] Name: MICHAEL BARRETT Address: home [address] [place] [address] Name: SHAD TUBBS Address: home [address] [place] [id number]
--- OUTSIDE RECORDS SUMMARY | 2023-07-11 03:29 | XMS_ITS | Patient Health Record ---
Author Organization [facility] Address [address] [place], [place] [id number] Care Team Providers Care Geographic Information Scientist Name Role Phone Tawanna Aldana Unavailable REASON FOR REFERRAL No Information SOCIAL HISTORY Sex Assigned At : Social History Observation Description Sex Assigned At Unknown PLAN OF TREATMENT No Information Insurance Providers Payer Name Payer Address Payer Phone Subscriber Number Group Number Insured Name Patient Relationship to Insured Coverage Start Date Coverage End Date [place] Medicaid PCC [address] [place], [place] [id number] [place] [employer] Self - patient is the insured
[2023-07-11 03:42] LABS: Hemoglobin 7.3 g/dl (12.0-16.0); Immature Retic Fraction 33.1 % (3.0-15.9); Mean Corpuscular HGB Conc 36.7 g/dl (31.0-35.0); Mean Corpuscular Volume 92.6 fL (80.0-98.0); Mean Platelet Volume 12.8 fL (9.4-12.3); NRBC Pct Auto 2.2 /100WBC (0.0-0.2); Platelet Count 146 X10*3/uL (160-400); Red Blood Count 2.15 X10*6/uL (4.20-5.50); Red Cell Distribution Width 19.3 % (11.0-16.0); Retic HGB Equivalent 34.8 pg (30.0-35.0); Reticulocyte Percent 11.8 % (0.5-1.8); Reticulocytes Absolute 0.255 X10*6/uL (0.026-0.095); WBC ABN SCTR FOR CBC 1
[2023-07-11 03:43] LABS: White Blood Count 18.7 X10*3/uL (4.8-10.8)
[2023-07-11 03:44] LABS: Hematocrit 19.9 % (37.0-47.0)
[2023-07-11 03:49] LABS: INTERNATIONAL NORM RATIO 1.1 (0.9-1.1); Prothrombin Time 12.8 SEC (11.1-13.3)
[2023-07-11 04:01] LABS: Alanine Aminotransferase 32 U/L (0-31); Albumin Level 3.4 g/dL (3.5-5.0); Alkaline Phosphatase 204 U/L (39-117); Anion Gap 14 (12-20); Aspartate Amino Transferase 83 U/L (5-31); Bilirubin Total 2.4 mg/dL (0.0-1.0); Blood Urea Nitrogen 19 mg/dL (9-16); Calcium 8.8 mg/dL (8.4-10.2); Carbon Dioxide 24 mmol/L (22-29); Chloride 110 mmol/L (96-108); Creatinine Clr Calc Pharmacy 63.5; Estimated Glomerular Filt Rate > 60; Glucose Random 93 mg/dL (60-115); Potassium 4.8 mmol/L (3.3-5.1); Sodium 143 mmol/L (135-145); Total Protein 8.1 g/dL (6.5-8.0)
[2023-07-11 04:09] LABS: Troponin-I High Sensitivity < 2.7 ng/L (<3.5-17.0)
[2023-07-11 04:18] LABS: Influenza A PCR NEGATIVE (Negative); Influenza B PCR NEGATIVE (Negative); Resp Syncy Virus RNA Qual PCR NEGATIVE (Negative); SARS COV2 PCR INHOUSE NEGATIVE (Negative)
[2023-07-11 04:46] LABS: Band Neutrophils Percent 1 % (3-5); Basophils Abs Manual 0.6 X10*3/uL (0.0-0.2); Basophils Percent Manual 3 % (0-2); Eosinophils Absolute Manual 0.6 X10*3/uL (0.0-0.4); Eosinophils Percent Manual 3 % (0-4); Lymphocytes Absolute Manual 4.3 X10*3/uL (1.2-4.9); Lymphocytes Percent Manual 23 % (20-40); Monocytes Absolute Manual 1.1 X10*3/uL (0.1-1.2); Monocytes Percent Manual 6 % (2-11); Neutrophils Absolute Manual 12.2 X10*3/uL (2.0-8.3); Neutrophils Percent Manual 64 % (45-73)
[2023-07-11 04:47] LABS: Nucleated Red Blood Cells 6 /100WBC (0-0); RBC Morphology NOTED
[2023-07-11 04:48] LABS: Giant Platelet PRESENT; Large Platelet PRESENT; Platelet Estimate NORMAL (NORMAL); Platelet Morphology Comment NOTED
[2023-07-11 04:49] LABS: Howell Jolly Bodies PRESENT; Hypochromasia 1+ (5-14) /OIF; Pappenheimer Bodies PRESENT; Polychromasia 2+ (3-5) /OIF; Schistocytes 1+ (0-2) /OIF; Sickle Cells 3+ (>5) /OIF; Spherocytes 1+ (0-2) /OIF; Target Cells 1+ (5-14) /OIF
[2023-07-11 06:02] VITALS: BP 121/71; PULSE 83; RESP 22; TEMP 37.2; O2SAT 99
--- NOTE | 2023-07-11 06:48 | ED.GENADULT ---
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 Patient is not sure if this could be a sickle cell crisis she tells me. Reports she has just not feeling well at all. Denies sick contacts. Denies nausea, vomiting, abdominal pain, chest pain, headache, vision changes, dizziness and weakness. Related Data Home Medications ?Medication ?Instructions ?Recorded ?Confirmed albuterol sulfate 90 mcg/actuation 2 puff PO Q6H PRN Shortness Of 06/02/21 01/01/23 aerosol inhaler Breath Or Wheezing loratadine 10 mg tablet 1 tab PO DAILY 06/02/21 01/01/23 oxycodone 10 mg tablet 2 tab PO Q4H PRN Pain (Scale Score 12/15/21 01/01/23 4-6) fluticasone propionate 50 1 spray intranasal BID PRN Allergy 12/14/22 01/01/23 mcg/actuation nasal Symptoms spray,suspension lorazepam 1 mg tablet 1 mg PO BID anxiety 12/14/22 01/01/23 diphenhydramine HCl 25 mg capsule 25 mg PO TID PRN itch 01/01/23 01/01/23 (Banophen) gabapentin 300 mg capsule 300 mg PO TID PRN Pain 01/01/23 01/01/23 Previous Rx's ?Medication ?Instructions ?Recorded allopurinol 100 mg tablet 100 mg PO DAILY #30 tabs 01/05/23 colchicine 0.6 mg tablet 0.6 mg PO DAILY #30 tabs 01/05/23 Allergies Allergy/AdvReac Type Severity Reaction Status Date / Time prochlorperazine Allergy Severe ANAPHYLAXIS Verified 07/11/23 02:57 [From COMPAZINE] Review of Systems Review of Systems: Yes all other systems are reviewed and are negative PMFSH Past Medical History Attestation statement: The following information was validated with the patient. 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 pt irritable Patient Tobacco Use Status: Current everyday Tobacco user Tobacco use type: Cigarette Cigarette Packs Per Day: 5 Cigarettes Per Day: 5 Years Smoked: 35 Smoked in Last 30 Days: Yes e-Cigarette/Vaping Use: Never Used Second Hand Smoke Exposure: No Use of substances other than those prescribed or required for medical reasons: Yes Substance Use Type: Crack/Cocaine and Marijuana Substance Use Frequency: Chronic Longstanding Last Used Substance: Days (ago) Advance Directives: Yes Advance Directives on File: Yes Advance Directives Date on File: 12/15/22 Do you have a plan to hurt others: No Plan Patient : No service: No Current occupational status: unemployed and disabled Physical Exam ED Vital Signs: Vital Signs - 24 hr 07/11/23 02:56 07/11/23 06:02 Temperature 99.5 F 99.0 F Pulse Rate 89 83 Respiratory Rate 18 22 H Blood Pressure 112/75 121/71 Pulse Oximetry 100 99 Oxygen Delivery Method Nasal Cannula Room Air BMI result Body Mass Index 20.1 vss Appearance: Alert.? Oriented X3.? No acute distress.? Head: Normocephalic, atraumatic, no step-offs or deformities Eyes: Pupils equal, round and reactive to light.? Neck: Normal inspection.? Neck supple.? CVS: Normal heart rate and rhythm.? Pulses normal.? Respiratory: No respiratory distress.? Breath sounds normal.? Abdomen: Soft and nontender.? Skin: Skin warm and dry.? Normal skin color.? Normal skin turgor.? Extremities: No lower extremity edema.? No calf ttp. 5/5 strength to bilateral upper and lower extremities Neuro: Oriented X 3.? No motor deficit.? No sensory deficit. CN 2-12 intact Course Reevaluation(s) Reevaluation #1: CBC w/ leukocytosis w/o l shift. Baseline normocytic anemia noted. Baseline low plts. Chemistry w/ no acute electrolyte abnormalities neding intervention. Low TIBC noted and high % saturation. Total bili chronically high likley secondary to SCD/crisis. Normal trop. CTA negative for PE but concerning for PNA at this time infection suspected. ATBX ordered at this time, and plan is hospital admisison Patient agreeable to plan. Time: 09:35 Medications Administered Discontinued Medications Generic Name Dose Route Start Last Admin Trade Name Alexandrq PRN Reason Stop Dose Admin Diphenhydramine HCl 50 mg 07/11/23 07:53 07/11/23 08:05 Diphenhydramine Hcl 50 Mg/Ml Vial IVPUSH 07/11/23 07:54 50 mg ONCE ONE Administration Iohexol 65 ml 07/11/23 08:19 07/11/23 08:19 Iohexol 350 Mg/Ml 100 Ml Infus..Btl IV 07/11/23 08:20 65 ml ONCE ONE Administration Morphine Sulfate 4 mg 07/11/23 07:03 07/11/23 07:35 Morphine Sulfate 4 Mg/Ml Cartridge IVPUSH 07/11/23 07:04 4 mg ONCE ONE Administration Protocol Ondansetron HCl 4 mg 07/11/23 07:03 07/11/23 07:36 Ondansetron Hcl 4 Mg/2 Ml Vial IVPUSH 07/11/23 07:04 4 mg ONCE ONE Administration Medical Decision Making Medical Decision Making [facility] Narrative: [id number] 53-year-old female presents with shortness of breath, cough, fatigue, malaise, myalgias times few days worsening. History of sickle cell disease. Physical exam benign. Vital signs with slight tachypnea and low-grade fever. History and physical exam concerning for viral illness versus sickle cell crisis versus bronchitis. Unlikely PE, pneumonia, ACS, dissection, systemic illness. Plan labs, imaging, viral testing Differential Diagnosis Differential Diagnoses: The differential diagnosis associated with the presentation includes History and physical exam concerning for viral illness versus sickle cell crisis versus bronchitis. Unlikely PE, pneumonia, ACS, dissection, systemic illness. Admission/Observation Consideration of admission/observation: Escalation of care including admission/observation considered Lab Data MDM Lab Attestation statement: I reviewed the patient's lab results. 07/11/23 03:34 07/11/23 03:34 Labs: Lab Results 07/11/23 Range/Units 03:34 WBC 18.7 H (4.8-10.8) X10*3/uL RBC 2.15 L (4.20-5.50) X10*6/uL Hgb 7.3 L (12.0-16.0) g/dl Hct 19.9 L* (37.0-47.0) % MCV 92.6 (80.0-98.0) fL MCH 34.0 H (27.0-33.0) pg MCHC 36.7 H (31.0-35.0) g/dl RDW 19.3 H (11.0-16.0) % Plt Count 146 L D (160-400) X10*3/uL MPV 12.8 H (9.4-12.3) fL Immature Gran % (Auto) Cancelled Neut % (Auto) Cancelled Lymph % (Auto) Cancelled [place] % (Auto) Cancelled Eos % (Auto) Cancelled Baso % (Auto) Cancelled Lymph # (Auto) Cancelled [place] # (Auto) Cancelled Eos # (Auto) Cancelled Baso # (Auto) Cancelled Abs Immat Gran (auto) Cancelled Absolute Neuts (auto) Cancelled Absolute Nucleated RBC 0.420 H (0.0-0.012) X10*3/uL Nucleated RBC % (auto) 2.2 H (0.0-0.2) /100WBC Neutrophils % (Manual) 64 (45-73) % Band Neutrophils % 1 L (3-5) % Lymphocytes % (Manual) 23 (20-40) % Monocytes % (Manual) 6 (2-11) % Eosinophils % (Manual) 3 (0-4) % Basophils % (Manual) 3 H (0-2) % Abs Neuts (Manual) 12.2 H (2.0-8.3) X10*3/uL Lymphocytes # (Manual) 4.3 (1.2-4.9) X10*3/uL Monocytes # (Manual) 1.1 (0.1-1.2) X10*3/uL Eosinophils # (Manual) 0.6 H (0.0-0.4) X10*3/uL Basophils # (Manual) 0.6 H (0.0-0.2) X10*3/uL Nucleated RBCs 6 H (0-0) /100WBC Platelet Estimate NORMAL (NORMAL) Large Platelets PRESENT Giant Platelets PRESENT Plt Morphology Comment NOTED RBC Morphology NOTED Polychromasia 2+ (3-5) /OIF Hypochromasia 1+ (5-14) /OIF Spherocytes 1+ (0-2) /OIF Pappenheimer Bodies PRESENT Sickle Cells 3+ (>5) /OIF Target Cells 1+ (5-14) /OIF [place] Bodies PRESENT Schistocytes 1+ (0-2) /OIF Absolute Retic 0.255 H (0.026-0.095) X10*6/uL Percent Retic 11.8 H (0.5-1.8) % Immature Retic Fraction 33.1 H (3.0-15.9) % Retic Hgb Equivalent 34.8 (30.0-35.0) pg PT 12.8 (11.1-13.3) SEC INR 1.1 (0.9-1.1) D-Dimer High Sensitivty 1769 NG/ML Sodium 143 (135-145) mmol/L Potassium 4.8 (3.3-5.1) mmol/L Chloride 110 H (96-108) mmol/L Carbon Dioxide 24 (22-29) mmol/L Anion Gap 14 (12-20) BUN 19 H (9-16) mg/dL Creatinine 0.87 (0.5-1.4) mg/dL Estim Creat Clear Calc 63.5 Estimated GFR > 60 Random Glucose 93 (60-115) mg/dL Calcium 8.8 (8.4-10.2) mg/dL Iron 134 (30-160) mcg/dL TIBC 227 L (228-428) mcg/dL % Saturation 59 H (15-50) % Unsat Iron Binding 93 ug/dL Total Bilirubin 2.4 H (0.0-1.0) mg/dL AST 83 H (5-31) U/L ALT 32 H (0-31) U/L Alkaline Phosphatase 204 H (39-117) U/L Troponin I High Sens < 2.7 (<3.5-17.0) ng/L Total Protein 8.1 H (6.5-8.0) g/dL Albumin 3.4 L (3.5-5.0) g/dL Influenza Type A (PCR) NEGATIVE (Negative) Influenza Type B (PCR) NEGATIVE (Negative) RSV RNA Qual (PCR) NEGATIVE (Negative) SARS-CoV-2 RNA (RT-PCR) NEGATIVE (Negative) Independent Interpretation I performed an independent interpretation of an: EKG (Vent rate 76 ekg w/ NSR, no juvenal or inversions concerning for ischemia ) and Plain X-Ray (XR/XR chest 1V IMPRESSION: No acute cardiopulmonary disease. Lower lung field increased markings similar to previous.) Radiology Impression Discussion of test interpretation with radiology: I have reviewed the radiologist's reading. External Record Review External record reviewed: Inpatient record, Office record, Outpatient record, Prior outpatient labs, Prior outpatient radiology, Primary care record and Outside ED record Chronic Conditions Patient?s care impacted by: Other (PTSD, Bipolar, cocaine use disorder ) Critical Care Time Critical Care Time Critical Care Time: Yes Total Critical Care Time: 45 Attestation: I attest to this time spent taking care of the patient, obtaining history, physical, reviewing labs, imaging, speaking to my attending, specialist or hospitalist. Discharge Plan Discharge Clinical Impression: Sickle cell anemia, Pneumonia Patient Disposition: Admitted As Inpatient Print Language: Kyrgyz
[2023-07-11 07:20] LABS: D Dimer High Sensitivity 1769 NG/ML
[2023-07-11 07:24] LABS: Iron 134 mcg/dL (30-160); Percent Iron Saturation 59 % (15-50); Total Iron Binding Capacity 227 mcg/dL (228-428); Unsaturated Iron Binding 93 ug/dL
[2023-07-11] MEDS: Morphine Sulfate 4 MG/ML CARTRIDGE IVPUSH (07:35)
[2023-07-11] MEDS: ondansetron HCL 4 MG/2 ML VIAL IVPUSH (07:36)
[2023-07-11] MEDS: diphenhydrAMINE HCL 50 MG/ML VIAL IVPUSH (08:05)
[2023-07-11] MEDS: iohexoL 350 MG/ML 100 ML INFUS..BTL 65 ML IV (08:19)
[2023-07-11 09:41] VITALS: BP 123/65; PULSE 80; RESP 19; TEMP 36.6; O2SAT 95
[2023-07-11] MEDS: HYDROmorphone HCl 1 MG/ML SYRINGE IVPUSH (09:57)
--- NOTE | 2023-07-11 10:25 | MHC.EDTECH ---
Attempted and unable to obtain blood draw.
--- NOTE | 2023-07-11 10:54 | PHA.MEDREC ---
Pharmacy Consult ? Medication Reconciliation Pharmacy has completed the medication reconciliation.
--- NOTE | 2023-07-11 11:23 | P.HPHOSP_ITS ---
<Statement entered by Ry Luna MD - 07/12/23 16:58> the patient was seen and evaluated with NICO Sheth. I agree with his note, assessment and plan with the following. In summary, Pt is a 53-year-old female with a PMH significant for?sickle cell anemia, acute chest syndrome, COPD on 5 L home O2, long COVID syndrome, tricuspid regurgitation, pulmonary hypertension, cocaine use disorder, prior episode of acute respiratory distress syndrome necessitating intubation, tracheostomy, and temporary PEG tube placement, PTSD, and bipolar disorder who presents to the ED with?all-over body pain and cough x2 days. Pt will be admitted to the hospital for treatment and further evaluation of sickle cell crisis in the setting of community-acquired pneumonia. Sickle cell crisis complicated with community-acquired pneumonia Start IV fluids Transfuse as needed IV Dilaudid 1mg IV q.4 and titrate as needed Benadryl 25 mg PRN Pending cultures Start Solu-Medrol Start ceftriaxone and azithromycin Rest of evaluations by NICO note. History of Present Illness Date of Service: 07/11/23 Attending physician on admission: Ry Luna Chief Complaint: SOB Pt is a 53-year-old female with a PMH significant for?sickle cell anemia, acute chest syndrome, COPD on 5 L home O2, long COVID syndrome, tricuspid regurgitation, pulmonary hypertension, cocaine use disorder, prior episode of acute respiratory distress syndrome necessitating intubation, tracheostomy, and temporary PEG tube placement, PTSD, and bipolar disorder who presents to the ED with?all-over body pain and cough x2 days. Patient reports symptoms began 2 days prior when patient began to all-over pain, particularly in her legs, arms, and shoulders. Soon after developed a cough that was productive of yellow- greenish sputum. Also complains of headache centered over left eye and blood coming out of her left ear. Denies any change to hearing. No fever or chills, nausea or vomiting. Denies chest pressure or palpitations. No lightheadedness or dizziness. Reports continues to smoke 5-10 cigarettes a day, drinking 2 shots of alcohol twice a week, and smoking crack cocaine, last used 2-3 days ago. In the ED pt was tachypneic up to 22, vitals otherwise baseline for patient. Labs were significant for leukocytosis of 18.7, H&H 7.3/19.9, thrombocytopenia 146, absolute reticulocytes elevated at 0.255 at 11.8% with immature retic fraction of 33.1%, bilirubin 2.4, AST 83, ALT 32, alk-phos 204, and elevated D- dimer 1769. Tested negative for flu, RSV, and COVID. CTA of chest found no pulmonary emboli, but showed evidence for pulmonary arterial hypertension, and emphysematous and fibrotic changes of bilateral lung menendez with subpleural cystic changes, with reticular nodular opacities and regions of peripheral honeycombing. CXR showed no acute cardiopulmonary disease. EKG demonstrated normal sinus rhythm with no evidence of ST elevations or depressions. Pt was treated with morphine, ondansetron, diphenhydramine, ceftriaxone, and azithromycin. Pt will be admitted to the hospital for treatment and further evaluation of sickle cell crisis in the setting of community-acquired pneumonia. 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 Hypoxia Pneumonia due to 2019 novel coronavirus Pneumonia due to 2019 novel coronavirus Sickle cell anemia UTI (urinary tract infection) GERD (gastroesophageal reflux disease) PTSD (post-traumatic stress disorder) Cocaine abuse Bipolar 1 disorder Sickle cell anemia Family History Other Diabetes Surgical History Hx of cholecystectomy Social History Household Members: None Housing: Apartment 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 pt irritable Patient Tobacco Use Status: Current everyday Tobacco user Tobacco use type: Cigarette Cigarette Packs Per Day: 5 Cigarettes Per Day: 5 Years Smoked: 35 Smoked in Last 30 Days: Yes e-Cigarette/Vaping Use: Never Used Second Hand Smoke Exposure: No Use of substances other than those prescribed or required for medical reasons: Yes Substance Use Type: Crack/Cocaine and Marijuana Substance Use Frequency: Chronic Longstanding Last Used Substance: Days (ago) Advance Directives: Yes Advance Directives on File: Yes Advance Directives Date on File: 12/15/22 Do you have a plan to hurt others: No Plan Patient : No service: No Current occupational status: unemployed and disabled Meds Allergies Allergy/AdvReac Type Severity Reaction Status Date / Time prochlorperazine Allergy Severe ANAPHYLAXIS Verified 07/11/23 02:57 [From COMPAZINE] Active Medications: Current Medications Azithromycin 500 mg/ Sodium (Chloride) 250 mls @ 125 mls/hr IV ONCE ONE Stop: 07/11/23 11:29 Home Medications ?Medication ?Instructions ?Recorded ?Confirmed ?Last Taken ?Type albuterol sulfate 90 mcg/actuation 2 puff PO Q6H PRN Shortness Of 06/02/21 07/11/23 Unknown History aerosol inhaler Breath Or Wheezing oxycodone 10 mg tablet 2 tab PO Q4H PRN Pain (Scale Score 12/15/21 07/11/23 01/01/23 History 4-6) fluticasone propionate 50 1 spray intranasal BID PRN Allergy 12/14/22 07/11/23 Unknown History mcg/actuation nasal Symptoms spray,suspension lorazepam 1 mg tablet 1 mg PO BID PRN anxiety 12/14/22 07/11/23 01/01/23 History diphenhydramine HCl 25 mg capsule 25 mg PO TID PRN itch 01/01/23 07/11/23 Unknown History (Banophen) apixaban 2.5 mg tablet (Eliquis) 2.5 mg PO BID 07/11/23 07/11/23 07/09/23 History Physical Exam 2 Vital Signs and Narrative: Vital Signs: Last Vital Signs Temp 97.9 F 07/11/23 09:41 Pulse 80 07/11/23 09:41 Resp 19 07/11/23 09:41 BP 123/65 07/11/23 09:41 Pulse Ox 95 07/11/23 09:41 O2 Del Method Nasal Cannula 07/11/23 09:41 O2 Flow Rate 4 07/11/23 09:41 Oxygen Flow Rate 4 07/11/23 02:56 BMI result Body Mass Index 20.1 Constitutional: Alert, in no acute distress. Mental Status: Oriented to person, place and time. Eyes: Pupils are equal, round, and reactive to light. Ear, Nose, and Throat: Oropharynx clear, mucous membranes moist. Nose without deformities. Trachea midline. Small abrasion with scant amount of dried blood noted at beginning of external ear canal, external ear canal otherwise clear. Tympanic membrane intact, pearly hernandez, with light reflex and landmarks clear. No hemotympanum Respiratory: Clear to auscultation bilaterally. No wheezing, rales, or rhonchi. Cardiovascular: S1, S2 regular. No murmurs, rubs, or gallops. Gastrointestinal: Abdomen soft, non-tender, non-distended. Normal bowel sounds. Neurologic: Cranial nerves II-XII are grossly intact bilaterally. No focal neurological deficits. Moves all extremities spontaneously. Skin: Warm, dry. Musculoskeletal: Diffuse tenderness to legs, arms, and shoulders especially joints. ROM intact. Extremities: No edema. Psychiatric: Normal mood and affect. Results Labs 07/11/23 03:34 07/11/23 03:34 Labs: Laboratory Results - last 24 hr 07/11/23 03:34 MCV 92.6 MCH 34.0 H MCHC 36.7 H RDW 19.3 H Plt Count 146 L D MPV 12.8 H Immature Gran % (Auto) Cancelled Neut % (Auto) Cancelled Lymph % (Auto) Cancelled [place] % (Auto) Cancelled Eos % (Auto) Cancelled Baso % (Auto) Cancelled Lymph # (Auto) Cancelled [place] # (Auto) Cancelled Eos # (Auto) Cancelled Baso # (Auto) Cancelled Abs Immat Gran (auto) Cancelled Absolute Neuts (auto) Cancelled Absolute Nucleated RBC 0.420 H Nucleated RBC % (auto) 2.2 H Neutrophils % (Manual) 64 Band Neutrophils % 1 L Lymphocytes % (Manual) 23 Monocytes % (Manual) 6 Eosinophils % (Manual) 3 Basophils % (Manual) 3 H Abs Neuts (Manual) 12.2 H Lymphocytes # (Manual) 4.3 Monocytes # (Manual) 1.1 Eosinophils # (Manual) 0.6 H Basophils # (Manual) 0.6 H Nucleated RBCs 6 H Platelet Estimate NORMAL Large Platelets PRESENT Giant Platelets PRESENT Plt Morphology Comment NOTED RBC Morphology NOTED Polychromasia 2+ (3-5) Hypochromasia 1+ (5-14) Spherocytes 1+ (0-2) Pappenheimer Bodies PRESENT Sickle Cells 3+ (>5) Target Cells 1+ (5-14) [place] Bodies PRESENT Schistocytes 1+ (0-2) Absolute Retic 0.255 H Percent Retic 11.8 H Immature Retic Fraction 33.1 H Retic Hgb Equivalent 34.8 PT 12.8 INR 1.1 D-Dimer High Sensitivty 1769 Anion Gap 14 Estim Creat Clear Calc 63.5 Estimated GFR > 60 Random Glucose 93 Calcium 8.8 Iron 134 TIBC 227 L % Saturation 59 H Unsat Iron Binding 93 Total Bilirubin 2.4 H AST 83 H ALT 32 H Alkaline Phosphatase 204 H Troponin I High Sens < 2.7 Total Protein 8.1 H Albumin 3.4 L Influenza Type A (PCR) NEGATIVE Influenza Type B (PCR) NEGATIVE RSV RNA Qual (PCR) NEGATIVE SARS-CoV-2 RNA (RT-PCR) NEGATIVE Imaging Radiologist's Impressions: Impressions Chest X-Ray 07/11/23 03:15 IMPRESSION: No acute cardiopulmonary disease. Lower lung field increased markings similar to previous. Chest CTA 07/11/23 08:21 IMPRESSION: 1. No pulmonary emboli. 2. Main pulmonary artery is enlarged suggesting elements of pulmonary arterial hypertension. 3. Emphysematous and fibrotic changes of the bilateral lung menendez with subpleural cystic changes, reticular nodular opacities and regions of peripheral honeycombing. Patient respiratory motion artifact limits evaluation for nodules. Assessment and Plan (1) Sickle cell anemia with crisis: Status: Resolved Plan Pt is a 53-year-old female with a PMH significant for?sickle cell anemia, acute chest syndrome, COPD on 5 L home O2, long COVID syndrome, tricuspid regurgitation, pulmonary hypertension, cocaine use disorder, prior episode of acute respiratory distress syndrome necessitating intubation, tracheostomy, and temporary PEG tube placement, PTSD, and bipolar disorder who presents to the ED with?all-over body pain and cough x2 days. Pt will be admitted to the hospital for treatment and further evaluation of sickle cell crisis in the setting of community-acquired pneumonia. Sickle cell crisis Patient with all over body pain, increased reticulocytes Likely secondary to community-acquired pneumonia Will treat with IV analgesics; will start on Dilaudid 1mg IV q.4 and titrate as needed Patient requires co-administration of Benadryl 25 mg with opioids due to itching H&H borderline at 7.3/19.9 Will monitor CBC and transfuse as necessary if declines further Community-acquired pneumonia Patient with productive cough times 2 days Patient does not meet sepsis criteria: pt with chronic leukocytosis; no fever or tachycardia; lactic acid WNL at 0.8 Will treat with Solu-Medrol and ceftriaxone and azithromycin started 07/11/2023 Follow blood cultures Ear pain/bleeding from ear Pt reports blood coming from left ear yesterday; no change in hearing Small abrasion with scant amount of dried blood noted at beginning of external ear canal, likely from scratching with fingernail External ear canal otherwise clear, tympanic membran intact, pearly hernandez, with light reflex and landmarks clear; no hemotympanum No further workup or treatment indicated at this time Headache Pain complaining of headache primarily behind left eye and ear Patient not complaining of acute vision or hearing changes Will treat with Fioricet p.r.n. If symptoms persist will consider CTA of head and neck Transaminitis Chronic, appears at baseline Patient not complaining of abdominal pain or N/V/D No further treatment or workup indicated at this time COPD Not in acute exacerbation Continue home inhalers Hx of DVT Hold Eliquis due to borderline anemia Full Code Attending:? DVT Prophylaxis: Lovenox Pt will require a hospitalization of at least two nights for treatment of?sickle cell crisis in the setting of COVID pneumonia. Patient will require hospitalization for the administration of IV analgesics and IV antibiotics, and close monitoring of CBC. Quality Stroke Does the patient have a stroke diagnosis?: No VTE Prior VTE?: No VTE Risk Level:: Medical - moderate - high VTE Device Contraindication: N/A - Device Ordered VTE Drug Contraindication: Treatment Not Indicated
--- NOTE | 2023-07-11 12:01 | PC.NURSE ---
Patient is a very difficult stick for her blood cultures, provider is aware and RN will attempt to get another line using US. attempted 4 times to obtain cultures.
[2023-07-11 12:52] LABS: Lactic Acid 0.8 mmol/L (0.5-2.0)
[2023-07-11] MEDS: cefTRIAXone sodium 1 GM in 0.9 % Sodium Chloride 50 ML IV (13:00)
[2023-07-11] MEDS: methylPREDNISolone Sod Succ 40 MG/ML VIAL 20 MG IVPUSH (13:01)
[2023-07-11] MEDS: allopurinoL 100 MG TABLET PO (13:01)
[2023-07-11] MEDS: Azithromycin 500 MG in 0.9 % Sodium Chloride 250 ML 125 MG IV (13:20)
[2023-07-11] MEDS: diphenhydrAMINE HCL 50 MG/ML VIAL 25 MG IVPUSH ×2 (13:27→16:57)
[2023-07-11] MEDS: HYDROmorphone HCl 0.5 MG/0.5 ML SYRINGE 1 MG IVPUSH ×2 (13:34→16:58)
[2023-07-11] MEDS: Colchicine 0.6 MG TABLET PO (15:10)
[2023-07-11] MEDS: LORazepam 1 MG TABLET PO (16:58)
[2023-07-11 17:12] VITALS: BP 105/65; PULSE 80; RESP 17; O2SAT 93
--- NOTE | 2023-07-11 17:53 | PC.NURSE ---
per hospitalist, PRN's to be given 1 hour earlier. he will adjust the orders.
[2023-07-11] MEDS: 0.9 % Sodium Chloride Flush 3 ML SYRINGE IVFLUSH (18:20)
[2023-07-11] MEDS: 0.9 % Sodium Chloride 1,000 ML 100 ML IVCONT (18:21)
[2023-07-11 21:04] VITALS: BP 135/65; PULSE 68; RESP 16; TEMP 36.1; O2SAT 92
--- NOTE | 2023-07-11 21:08 | PC.NURSE ---
Patient arrived from ed, is very drowsy and rude, refused to answer most admission questions because they are repetitive and the nurse should just read the recorded info. Can barely keep her eyes open and falling asleep constantly during a very short conversation but is asking for pain meds. Safety in place, oriented to call hernández.
[2023-07-12] VITALS (11 sets, daily range): BP systolic 100–113; BP diastolic 52–68; PULSE 64–94; RESP 12–19; TEMP 36.1–36.8; O2SAT 92–99
[2023-07-12] MEDS: methylPREDNISolone Sod Succ 40 MG/ML VIAL 20 MG IVPUSH ×3 (00:28→23:50)
[2023-07-12] MEDS: HYDROmorphone HCl 0.5 MG/0.5 ML SYRINGE 1 MG IVPUSH ×2 (00:36→07:40)
[2023-07-12] MEDS: diphenhydrAMINE HCL 50 MG/ML VIAL 25 MG IVPUSH ×5 (00:36→23:50)
[2023-07-12] MEDS: LORazepam 1 MG TABLET PO ×2 (00:48→14:26)
[2023-07-12] MEDS: 0.9 % Sodium Chloride 1,000 ML 100 ML IVCONT (04:12)
[2023-07-12 06:34] LABS: Anion Gap 14 (12-20); Blood Urea Nitrogen 22 mg/dL (9-16); Calcium 8.6 mg/dL (8.4-10.2); Carbon Dioxide 20 mmol/L (22-29); Chloride 110 mmol/L (96-108); Estimated Glomerular Filt Rate > 60; Glucose Random 186 mg/dL (60-115); Potassium 5.9 mmol/L (3.3-5.1); Sodium 138 mmol/L (135-145)
[2023-07-12] MEDS: Colchicine 0.6 MG TABLET PO (07:40)
[2023-07-12] MEDS: allopurinoL 100 MG TABLET PO (07:40)
[2023-07-12 10:16] LABS: Mean Corpuscular Volume 87.6 fL (80.0-98.0); PLT CLUMP 1; Red Blood Count 1.78 X10*6/uL (4.20-5.50); Red Cell Distribution Width 17.2 % (11.0-16.0)
[2023-07-12 10:18] LABS: WBC ABN SCTR FOR CBC 1
[2023-07-12 10:19] LABS: Mean Corpuscular HGB Conc 33.5 g/dl (31.0-35.0)
[2023-07-12 10:20] LABS: Mean Corpuscular Hemoglobin 29.7 pg (27.0-33.0); White Blood Count 16.6 X10*3/uL (4.8-10.8)
[2023-07-12 10:42] LABS: Hemoglobin 5.2 g/dl (12.0-16.0)
[2023-07-12 10:43] LABS: Hematocrit 15.6 % (37.0-47.0)
[2023-07-12] MEDS: HYDROmorphone HCl 0.5 MG/0.5 ML SYRINGE 2 MG IVPUSH ×4 (11:52→23:49)
[2023-07-12] MEDS: cefTRIAXone sodium 1 GM in 0.9 % Sodium Chloride 50 ML IV (11:53)
[2023-07-12 12:39] LABS: Anion Gap 18 (12-20); Blood Urea Nitrogen 25 mg/dL (9-16); Calcium 8.4 mg/dL (8.4-10.2); Carbon Dioxide 16 mmol/L (22-29); Chloride 111 mmol/L (96-108); Creatinine Clr Calc Pharmacy 55.8; Estimated Glomerular Filt Rate 59; Glucose Random 127 mg/dL (60-115); Potassium 5.6 mmol/L (3.3-5.1); Sodium 139 mmol/L (135-145)
--- NOTE | 2023-07-12 13:05 | P.PNIM_ITS ---
Subjective Subjective Date of Service: 07/12/23 Interval History: Seen and evaluated this morning Complaining of pain, mainly in chest Hb dropped to 5.4 with no reported bleeding No other events reported Review of Systems Review of Systems: Yes all other systems are reviewed and are negative Physical Exam 2 Vital Signs: Vital Signs: Last Vital Signs Temp 98.2 F 07/12/23 07:14 Pulse 74 07/12/23 07:14 Resp 19 07/12/23 11:52 BP 104/59 L 07/12/23 07:14 Pulse Ox 93 07/12/23 07:14 O2 Del Method Nasal Cannula 07/12/23 07:14 O2 Flow Rate 2 07/12/23 07:14 Oxygen Flow Rate 4 07/11/23 02:56 BMI result Body Mass Index 20.1 Const: Other: Constitutional : Awake, interactive, in mild distress Neck : Normal inspection, Supple Cardiovascular : RRR, no JVP, no lower extremity edema Respiratory : good bilateral air entry, basal fine crackles, no wheezes or rhonchi Gastrointestinal: soft, lax, Normal bowel sounds, Non tender Skin : Warm, Dry Neurological : Alert & oriented x3, No focal deficit Objective Data Active Medications Acetaminophen (Acetaminophen 325 Mg Tablet) 650 mg PO Q6H PRN PRN Reason: Pain, Mild (Pain Scale 1-3) Acetaminophen/Butalbital/Caffeine (Butalb/Acetamin/Caff 50/325/40 Tablet) 1 tab PO Q4H PRN PRN Reason: Headache Albuterol Sulfate (Albuterol Sulfate 90 Mcg 8 Gm Inhaler) 2 puff INHALE Q6H PRN PRN Reason: Shortness Of Breath Or Wheezing Allopurinol (Allopurinol 100 Mg Tablet) 100 mg PO DAILY [facility] Last Admin: 07/12/23 07:40 Dose: 100 mg Documented By: COTEMA Colchicine (Colchicine 0.6 Mg Tablet) 0.6 mg PO DAILY [facility] Last Admin: 07/12/23 07:40 Dose: 0.6 mg Documented By: COTEMA Diphenhydramine HCl (Diphenhydramine Hcl 50 Mg/Ml Vial) 25 mg IVPUSH Q4H PRN PRN Reason: Itching Last Admin: 07/12/23 11:52 Dose: 25 mg Documented By: COTEMA Docusate Sodium (Docusate Sodium 100 Mg Capsule) 100 mg PO DAILY PRN PRN Reason: Constipation Fluticasone Propionate (Fluticasone Propionate Nasal 16 Gm [place]) 1 spray NOSTRIL-B BID PRN PRN Reason: Allergy Symptoms Guaifenesin/Dextromethorphan (Guaifenesin Dm 200/20/10 Ml 10 Ml Syrup) 10 ml PO Q6H PRN PRN Reason: Cough Hydromorphone HCl (Hydromorphone Hcl 0.5 Mg/0.5 Ml Syringe) 2 mg IVPUSH Q4H PRN; Protocol PRN Reason: Pain, Severe (Pain Scale 7-10) Last Admin: 07/12/23 11:52 Dose: 2 mg Documented By: COTEMA Ceftriaxone Sodium 1 gm/ (Sodium Chloride) 50 mls @ 100 mls/hr IV Q24H [facility] Last Infusion: 07/12/23 12:26 Dose: Infused Documented By: COTEMA Azithromycin 500 mg/ Sodium (Chloride) 250 mls @ 125 mls/hr IV Q24H [facility] Sodium Chloride (Ns) 1,000 mls @ 100 mls/hr IVCONT .Q10H [facility] Last Admin: 07/12/23 07:40 Dose: Not Given Documented By: COTEMA Non-Admin Reason: IV Running Lorazepam (Lorazepam 1 Mg Tablet) 1 mg PO BID PRN PRN Reason: anxiety Last Admin: 07/12/23 00:48 Dose: 1 mg Documented By: LYSZ Melatonin (Melatonin 3 Mg Tablet) 6 mg PO BEDTIME PRN PRN Reason: Insomnia Methylprednisolone Sodium Succinate (Methylprednisolone Sod Succ 40 Mg/Ml Vial) 20 mg IVPUSH Q12H [facility] Last Admin: 07/12/23 11:53 Dose: 20 mg Documented By: AARON Ondansetron HCl (Ondansetron Hcl 4 Mg/2 Ml Vial) 4 mg IVPUSH Q8H PRN PRN Reason: Nausea and Vomiting Oxycodone HCl (Oxycodone Hcl Immed Release 5 Mg Tablet) 5 mg PO Q4H PRN PRN Reason: Pain, Moderate(Pain Scale 4-6) Sodium Chloride (0.9 % Sodium Chloride Flush 3 Ml Syringe) 3 ml IVFLUSH QSHIFT [facility] Last Admin: 07/12/23 07:10 Dose: Not Given Documented By: HO.COTEMA Non-Admin Reason: IV Running Labs 07/12/23 08:56 07/12/23 12:21 Labs: Laboratory Results - last 24 hr 07/12/23 07/12/23 07/12/23 06:02 08:56 12:21 MCV 87.6 D MCH 29.7 MCHC 33.5 RDW 17.2 H Plt Count TNP MPV Not Reportable Absolute Nucleated RBC 0.330 H Nucleated RBC % (auto) 2.0 H Anion Gap 14 18 Estim Creat Clear Calc 57.0 55.8 Estimated GFR > 60 59 Random Glucose 186 H 127 H Calcium 8.6 8.4 Assessment and Plan (1) Pneumonia: Status: Acute (2) Sickle cell anemia: Status: Acute (3) 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 Pt will be admitted to the hospital for treatment and further evaluation of sickle cell crisis in the setting of community-acquired pneumonia. Acute on chronic anemia No blood loss noted, check occult Hb 5.4 from baseline 7-8 , partially dilutional from IVF To transfused 2 units of blood w target Hb >8 follow CBC Sickle cell crisis Likely secondary to community-acquired pneumonia IV fluids Transfuse as needed IV analgesics; Dilaudid 2mg IV q.4 and titrate as needed Benadryl 25 mg PRN with opioids due to itching pending cultures Continue Solu-Medrol Continue ceftriaxone and azithromycin started 07/11/2023 Ear pain/bleeding from ear Small abrasion external ear canal No further workup or treatment indicated at this time Headache Pain complaining of headache primarily behind left eye and ear Fioricet p.r.n. If symptoms persist will consider CTA of head and neck Transaminitis Chronic, appears at baseline Patient not complaining of abdominal pain or N/V/D No further treatment or workup indicated at this time COPD Not in acute exacerbation Continue home inhalers Hx of DVT Hold Eliquis due to borderline anemia Full Code Attending:? DVT Prophylaxis: Lovenox Pt will require a hospitalization of overnight for treatment of?sickle cell crisis in the setting of COVID pneumonia. Patient will require hospitalization for the administration of IV analgesics and IV antibiotics, and blood transfusion Quality Stroke Does the patient have a stroke diagnosis?: No VTE Prior VTE?: No VTE Risk Level:: Medical - moderate - high VTE Device Contraindication: N/A - Device Ordered VTE Drug Contraindication: Treatment Not Indicated
[2023-07-12] MEDS: Sodium Polystyrene Sulfon/Sorb 15 GM/60 ML ORAL.SUSP 30 GM PO (13:08)
[2023-07-12] MEDS: Azithromycin 500 MG in 0.9 % Sodium Chloride 250 ML 125 MG IV (13:09)
[2023-07-12] MEDS: oxyCODONE HCl Immed Release 5 MG TABLET PO (14:26)
[2023-07-12] MEDS: ondansetron HCL 4 MG/2 ML VIAL IVPUSH (14:27)
--- NOTE | 2023-07-12 16:09 | MHC.CM.PN ---
PT UNABLE TO PARTICIPATE IN ASSESSMENT, SHAKING HER HEAD ONLY INFORMATION OBTAINED FROM EMR PT LIVES ALONE AND HAS RADIOLOGIST PHYSICIAN SERVICES SHE IS ACTIVE WITH [facility] FOR OXYGEN HCP ON FILE PCP AT [facility] IMM DELIVERED DCP: HOME RESUME SERVICES PT UNSURE IF SHE WILL HAVE A RIDE HOME
--- NOTE | 2023-07-12 18:26 | PC.NURSE ---
Order in for 2 units of RBCs. Patient received 1 unit of RBCs infused at 1730. 2nd unit of RBCs hung at 1751, RBCs ran for 30mins when this RN noticed the patient IV access was leaking a small amount on the bed sheets. RBCs stopped. IV access flushed and was leaking. IV access removed. Patient had ultrasound guided IV and new IV access was unable to be placed. Dr. Blakely made aware and nursing converting supervisor called. Per nursing converting supervisor there is no one available to place new ultrasound guided IV. Per Dr. Luna IV fluids can be held and 2nd unit of RBCs can be held for now. Recheck CBC in AM. About 50mls of RBCs infused from 2nd bag, 300mls wasted. Blood bank notified.
[2023-07-12] MEDS: guaiFENesin DM 200/20/10 ML 10 ML SYRUP PO (23:53)
[2023-07-13] MEDS: diphenhydrAMINE HCL 50 MG/ML VIAL 25 MG IVPUSH ×4 (04:25→22:16)
[2023-07-13] MEDS: HYDROmorphone HCl 0.5 MG/0.5 ML SYRINGE 2 MG IVPUSH ×2 (04:26→08:30)
[2023-07-13] MEDS: 0.9 % Sodium Chloride 1,000 ML 100 ML IVCONT (04:26)
[2023-07-13] MEDS: Albuterol/Iprat 2.5/0.5MG 3 ML AMPUL.NEB INHALE (05:23)
[2023-07-13 05:25] VITALS: PULSE 89; RESP 21; O2SAT 90
--- NOTE | 2023-07-13 05:26 | PC.NURSE ---
pt received at 425 am dilaudid 2 mg iv for pain 11/02 , and 25 mg of Benadryl for itching . pt at this time noted doesn't wear oxygen and her oxygen tubing is broken how did it happen ? , when asked what happen she became defensive and stated i didn't gave her any pain medicine , but after i said im calling the doctor then she said i need more pain medicine shes can be very difficult at times. one COACH WIRER STATED SHE WAS FIGHTING WITH HER EARLIER , because she knows how to put her oxygen on and she doesn't need any help.
[2023-07-13 05:51] VITALS: BP 120/86
[2023-07-13] MEDS: Furosemide 40 MG/4 ML VIAL IVPUSH (05:51)
[2023-07-13] MEDS: oxyCODONE HCl Immed Release 5 MG TABLET PO ×3 (05:58→20:20)
[2023-07-13] MEDS: LORazepam 1 MG TABLET PO ×2 (05:58→20:20)
[2023-07-13 07:33] VITALS: BP 131/61; PULSE 76; RESP 18; TEMP 36.3; O2SAT 91
[2023-07-13] MEDS: Colchicine 0.6 MG TABLET PO (08:30)
[2023-07-13] MEDS: allopurinoL 100 MG TABLET PO (08:30)
--- NOTE | 2023-07-13 10:47 | PC.NURSE ---
Message sent to IR for PICC placement.
--- NOTE | 2023-07-13 12:05 | HO.PM.IMPN ---
Subjective Subjective Date of Service: 07/13/23 Interval History: Seen and evaluated this morning Complaining of pain, mainly in chest Unable to repeat Hb after received PRBCs, no bleeding though No other events reported Review of Systems Review of Systems: Yes all other systems are reviewed and are negative Physical Exam Vital Signs: Vital Signs: Last Vital Signs Temp 97.4 F 07/13/23 07:33 Pulse 76 07/13/23 07:33 Resp 18 07/13/23 07:33 BP 131/61 07/13/23 07:33 Pulse Ox 91 L 07/13/23 07:33 O2 Del Method Nasal Cannula 07/13/23 07:33 O2 Flow Rate 3 07/13/23 07:33 Oxygen Flow Rate 4 07/11/23 02:56 BMI result Body Mass Index 20.1 Const: Other: Constitutional : Awake, interactive, in mild distress Neck : Normal inspection, Supple Cardiovascular : RRR, no JVP, no lower extremity edema Respiratory : good bilateral air entry, basal fine crackles, no wheezes or rhonchi Gastrointestinal: soft, lax, Normal bowel sounds, Non tender Skin : Warm, Dry Neurological : Alert & oriented x3, No focal deficit Objective Data Active Medications Acetaminophen (Acetaminophen 325 Mg Tablet) 650 mg PO Q6H PRN PRN Reason: Pain, Mild (Pain Scale 1-3) Acetaminophen/Butalbital/Caffeine (Butalb/Acetamin/Caff 50/325/40 Tablet) 1 tab PO Q4H PRN PRN Reason: Headache Albuterol Sulfate (Albuterol Sulfate (0.083%) 2.5 Mg/3 Ml Vial.Neb) 2.5 mg INHALE Q2H PRN PRN Reason: Shortness of Breath/Wheezing Allopurinol (Allopurinol 100 Mg Tablet) 100 mg PO DAILY [facility] Last Admin: 07/13/23 08:30 Dose: 100 mg Documented By: VICKI Colchicine (Colchicine 0.6 Mg Tablet) 0.6 mg PO DAILY [facility] Last Admin: 07/13/23 08:30 Dose: 0.6 mg Documented By: VICKI Diphenhydramine HCl (Diphenhydramine Hcl 50 Mg/Ml Vial) 25 mg IVPUSH Q4H PRN PRN Reason: Itching Last Admin: 07/13/23 08:30 Dose: 25 mg Documented By: VICKI Docusate Sodium (Docusate Sodium 100 Mg Capsule) 100 mg PO DAILY PRN PRN Reason: Constipation Fluticasone Propionate (Fluticasone Propionate Nasal 16 Gm [place]) 1 spray NOSTRIL-B BID PRN PRN Reason: Allergy Symptoms Guaifenesin/Dextromethorphan (Guaifenesin Dm 200/20/10 Ml 10 Ml Syrup) 10 ml PO Q6H PRN PRN Reason: Cough Last Admin: 07/12/23 23:53 Dose: 10 ml Documented By: YORDAN Hydromorphone HCl (Hydromorphone Hcl 2 Mg/Ml Vial) 1 mg IVPUSH Q4H PRN; Protocol PRN Reason: Pain, Severe (Pain Scale 7-10) Ceftriaxone Sodium 1 gm/ (Sodium Chloride) 50 mls @ 100 mls/hr IV Q24H [facility] Last Infusion: 07/12/23 12:26 Dose: Infused Documented By: COTEMA Azithromycin 500 mg/ Sodium (Chloride) 250 mls @ 125 mls/hr IV Q24H [facility] Last Infusion: 07/12/23 15:15 Dose: Infused Documented By: COTEMA Sodium Chloride (Ns) 1,000 mls @ 100 mls/hr IVCONT .Q10H [facility] Last Admin: 07/13/23 04:26 Dose: 100 mls/hr Documented By: YORDAN Lactic Acid (Ammonium Lactate 12 % Lotion 226 Gm Bottle) 1 appl TOPICAL BID [facility]; Protocol Last Admin: 07/13/23 10:19 Dose: Not Given Documented By: VICKI Non-Admin Reason: Patient Refused Lorazepam (Lorazepam 1 Mg Tablet) 1 mg PO BID PRN PRN Reason: anxiety Last Admin: 07/13/23 05:58 Dose: 1 mg Documented By: YORDAN Melatonin (Melatonin 3 Mg Tablet) 6 mg PO BEDTIME PRN PRN Reason: Insomnia Methylprednisolone Sodium Succinate (Methylprednisolone Sod Succ 40 Mg/Ml Vial) 20 mg IVPUSH Q12H [facility] Last Admin: 07/12/23 23:50 Dose: 20 mg Documented By: YORDAN Naloxone HCl (Naloxone Hcl Nasal 4 Mg [place]) 4 mg NOSTRILALT ONCE PRN PRN Reason: Opiate Reversal Ondansetron HCl (Ondansetron Hcl 4 Mg/2 Ml Vial) 4 mg IVPUSH Q8H PRN PRN Reason: Nausea and Vomiting Last Admin: 07/12/23 14:27 Dose: 4 mg Documented By: COTEMA Oxycodone HCl (Oxycodone Hcl Immed Release 5 Mg Tablet) 5 mg PO Q4H PRN PRN Reason: Pain, Moderate(Pain Scale 4-6) Last Admin: 07/13/23 11:04 Dose: 5 mg Documented By: JOSHUA Sodium Chloride (0.9 % Sodium Chloride Flush 3 Ml Syringe) 3 ml IVFLUSH QSHIFT [facility] Last Admin: 07/13/23 07:08 Dose: Not Given Documented By: VICKI Non-Admin Reason: IV Running Labs 07/12/23 08:56 07/12/23 12:21 Labs: Laboratory Results - last 24 hr 07/12/23 07/12/23 08:56 12:21 Smear Path Review SEE NOTE Anion Gap 18 Estim Creat Clear Calc 55.8 Estimated GFR 59 Random Glucose 127 H Calcium 8.4 Microbiology Microbiology Results: Microbiology 07/11/23 12:32 Blood Culture - Preliminary Blood - Venous No growth after 24 hours. 07/11/23 12:32 Blood Culture - Preliminary Blood - Venous No growth after 24 hours. 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 Pt will be admitted to the hospital for treatment and further evaluation of sickle cell crisis in the setting of community-acquired pneumonia. Acute on chronic anemia No blood loss noted, check occult Hb 5.4 from baseline 7-8 , partially dilutional from IVF transfused 2 units of blood w target Hb >8 follow CBC when we can draw labs IR team to follow for PICC\Midline placement Sickle cell crisis Likely secondary to community-acquired pneumonia Improving Continue IV fluids IV analgesics; Dilaudid 2mg IV q.4 and titrate as needed Benadryl 25 mg PRN with opioids due to itching pending cultures Continue Solu-Medrol Continue ceftriaxone and azithromycin started 07/11/2023 Acute Hyperkalemia K was 5.6 received Kayexalate Could not repeat labs, avoid meds that might increase K follow BMP Ear pain/bleeding from ear Small abrasion external ear canal No further workup or treatment indicated at this time Headache Pain complaining of headache primarily behind left eye and ear Fioricet p.r.n. If symptoms persist will consider CTA of head and neck Transaminitis Chronic, appears at baseline Patient not complaining of abdominal pain or N/V/D No further treatment or workup indicated at this time COPD Not in acute exacerbation Continue home inhalers Hx of DVT Hold Eliquis due to borderline anemia Full Code DVT Prophylaxis: Lovenox Pt will require a hospitalization of overnight for treatment of?sickle cell crisis in the setting of COVID pneumonia. Patient will require hospitalization for the administration of IV analgesics and IV antibiotics, and blood transfusion Quality Stroke Does the patient have a stroke diagnosis?: No VTE Prior VTE?: No VTE Risk Level:: Medical - moderate - high VTE Device Contraindication: N/A - Device Ordered VTE Drug Contraindication: Treatment Not Indicated
[2023-07-13] MEDS: cefTRIAXone sodium 1 GM in 0.9 % Sodium Chloride 50 ML IV (13:31)
[2023-07-13] MEDS: methylPREDNISolone Sod Succ 40 MG/ML VIAL 20 MG IVPUSH ×2 (13:31→23:48)
[2023-07-13] MEDS: HYDROmorphone HCl 2 MG/ML VIAL 1 MG IVPUSH ×3 (13:39→22:16)
--- NOTE | 2023-07-13 14:13 | MHC.RECOVRN ---
Met with pt in 374 after consult placed to Addiction Medicine for cocaine use disorder. Pt had presented to the ED with dyspnea, productive cough, generalized aches, subjective fevers at home, and hx of sickle cell anemia. Upon evaluation, pt admitted for sickle cell anemia with crisis. Pt sitting in bed, awake, alert, easily engages in conversation. Upon introducing self, pt immediately states I need help. Pt reports cocaine use, INH, $300-$400 per week. Pt reports amount used has gradually been increasing and is now out of control. Pt reports she is interested in IOP as she has a lot to work on. Pt reports her 11 year old daughter and mother in 2014 and pt has not processed it. Pt reports other stresses such as relationship and housing instability have led to patient looking for more support. Pt reports she does not have a support system currently. Discussed other recovery support options, including oil recovery unit operator, pt is very interested in a polo coach meeting with her. Pt also interested in [facility]. Provided pt with written resources as well as t/w contact information if needed. Pt denies other questions or concerns for t/w. Discussed with Rivka Ann APRN. Plan for oil recovery unit operator to meet with pt this evening. IOP referral has been sent.
[2023-07-13] MEDS: Azithromycin 500 MG in 0.9 % Sodium Chloride 250 ML 125 MG IV (14:20)
[2023-07-13 16:00] VITALS: BP 139/72; PULSE 95; RESP 12; TEMP 36.2; O2SAT 94
[2023-07-13] MEDS: Butalb/Acetamin/Caff 50/325/40 TABLET 1 TAB PO ×2 (18:08→23:49)
[2023-07-13] MEDS: Ammonium Lactate 12 % Lotion 226 GM BOTTLE 1 APPL TOPICAL (20:12)
[2023-07-13] MEDS: Acetaminophen 325 MG TABLET 650 MG PO (20:19)
[2023-07-13] MEDS: 0.9 % Sodium Chloride Flush 3 ML SYRINGE IVFLUSH (22:21)
[2023-07-13] MEDS: Melatonin 3 MG TABLET 6 MG PO (23:48)
[2023-07-14] VITALS (11 sets, daily range): BP systolic 115–154; BP diastolic 70–91; PULSE 59–83; RESP 16–18; TEMP 36.1–36.7; O2SAT 91–98
[2023-07-14] MEDS: HYDROmorphone HCl 2 MG/ML VIAL 1 MG IVPUSH ×5 (01:56→20:48)
[2023-07-14] MEDS: diphenhydrAMINE HCL 50 MG/ML VIAL 25 MG IVPUSH ×5 (01:56→20:48)
[2023-07-14] MEDS: guaiFENesin DM 200/20/10 ML 10 ML SYRUP PO (01:56)
[2023-07-14] MEDS: Butalb/Acetamin/Caff 50/325/40 TABLET 1 TAB PO ×3 (07:18→19:21)
[2023-07-14] MEDS: Colchicine 0.6 MG TABLET PO (08:24)
[2023-07-14] MEDS: allopurinoL 100 MG TABLET PO (08:24)
[2023-07-14] MEDS: LORazepam 1 MG TABLET PO ×2 (08:28→19:22)
[2023-07-14] MEDS: Ammonium Lactate 12 % Lotion 226 GM BOTTLE 1 APPL TOPICAL ×2 (08:43→20:50)
[2023-07-14] MEDS: 0.9 % Sodium Chloride Flush 3 ML SYRINGE IVFLUSH ×2 (08:45→17:11)
--- NOTE | 2023-07-14 08:56 | HO.PICC ---
PICC Line Insertion [facility] [place], [place] Diagnosis: SCD/difficult IV access Indication: IV ABT, blood products, blood draws Pertinent Labs: reviewed Technique: Following informed consent including risks, benefits and alternatives and using sterile technique including cap and mask, sterile gown, glove and drape, the left arm was prepped and draped in the usual sterile fashion of full barrier technique with CHG. Following completion of [place] Protocol the skin and soft tissues were anesthetized with 1% Lidocaine plain. Using ultrasound guidance, left basilic vein access was obtained. Over an 0.018 wire through peel-away sheath, a 5fr double lumen PASV PICC line was positioned. Catheter length is 34cm internal length, 0cm external length, for a total trimmed length of 34cm. The procedure was performed in rm 272. Tip verification was performed by Vaibhav Cano with Sherlock 3CG. Tip located in SVC. Ultrasound was used to document vein patency and for needle entry. A formal ultrasound picture and cardiac rhythm strip was recorded. Vascular Band Machine Operator has released the line for use and it is currently dressed with a StatLock, Tegaderm, and CHG disc. Verification has been performed for blood return and line patency. Arm Circumference: 26cm Equipment: Red Guru PowerPICC SOLO catheter with Sherlock 3CG Tip Catheter Type: 5fr double lumen PASV catheter Lot #: [id number]
[2023-07-14 09:12] LABS: Mean Corpuscular Hemoglobin 33.3 pg (27.0-33.0); Mean Corpuscular Volume 85.4 fL (80.0-98.0); Mean Platelet Volume 12.3 fL (9.4-12.3); Platelet Count 169 X10*3/uL (160-400); Red Blood Count 1.98 X10*6/uL (4.20-5.50); Red Cell Distribution Width 19.6 % (11.0-16.0)
[2023-07-14 09:25] LABS: B Type Natriuretic Peptide 1780 pg/mL (<100)
[2023-07-14 09:32] LABS: Anion Gap 12 (12-20); Blood Urea Nitrogen 31 mg/dL (9-16); Calcium 8.7 mg/dL (8.4-10.2); Carbon Dioxide 20 mmol/L (22-29); Chloride 111 mmol/L (96-108); Creatinine Clr Calc Pharmacy 52.1; Estimated Glomerular Filt Rate 54; Glucose Random 164 mg/dL (60-115); Potassium 6.4 mmol/L (3.3-5.1); Sodium 137 mmol/L (135-145)
[2023-07-14 09:34] LABS: NRBC Pct Auto 7.4 /100WBC (0.0-0.2); WBC ABN SCTR FOR CBC 1
[2023-07-14 09:36] LABS: Mean Corpuscular HGB Conc 37.8 g/dl (31.0-35.0)
[2023-07-14 09:39] LABS: Hematocrit 16.9 % (37.0-47.0); Hemoglobin 6.6 g/dl (12.0-16.0)
[2023-07-14] MEDS: Sodium Polystyrene Sulfon/Sorb 15 GM/60 ML ORAL.SUSP 30 GM PO (09:43)
[2023-07-14] MEDS: Dextrose 10 % 250 ML 750 ML IV (09:44)
[2023-07-14] MEDS: Insulin Regular, Human 100 UNIT/ML 3 ML VIAL 10 UNIT IVPUSH (10:00)
[2023-07-14] MEDS: Calcium Gluconate/NaCl,Iso-Osm 1 GM/50 ML PLAST..BAG IV (10:17)
[2023-07-14] MEDS: cefTRIAXone sodium 1 GM in 0.9 % Sodium Chloride 50 ML IV (13:40)
[2023-07-14] MEDS: Azithromycin 500 MG in 0.9 % Sodium Chloride 250 ML 125 MG IV (14:17)
--- NOTE | 2023-07-14 14:37 | HO.PM.IMPN ---
Subjective Subjective Date of Service: 07/14/23 Interval History: Seen and evaluated this morning Complaining of pain all over her body Hb low at 6.6 K elevated at 6.4 No other events reported Review of Systems Review of Systems: Yes all other systems are reviewed and are negative Physical Exam Vital Signs: Vital Signs: Last Vital Signs Temp 97.1 F 07/14/23 11:57 Pulse 83 07/14/23 11:57 Resp 18 07/14/23 11:57 BP 138/73 07/14/23 11:57 Pulse Ox 98 07/14/23 08:37 O2 Del Method Nasal Cannula 07/14/23 08:37 O2 Flow Rate 4.0 07/14/23 08:37 Oxygen Flow Rate 4 07/11/23 02:56 BMI result Body Mass Index 20.1 Const: Other: Constitutional : Awake, interactive, in mild distress Neck : Normal inspection, Supple Cardiovascular : RRR, no JVP, no lower extremity edema Respiratory : good bilateral air entry, basal fine crackles, no wheezes or rhonchi Gastrointestinal: soft, lax, Normal bowel sounds, Non tender Skin : Warm, Dry Neurological : Alert & oriented x3, No focal deficit Objective Data Active Medications Acetaminophen (Acetaminophen 325 Mg Tablet) 650 mg PO Q6H PRN PRN Reason: Pain, Mild (Pain Scale 1-3) Last Admin: 07/13/23 20:19 Dose: 650 mg Documented By: YORDAN Acetaminophen/Butalbital/Caffeine (Butalb/Acetamin/Caff 50/325/40 Tablet) 1 tab PO Q4H PRN PRN Reason: Headache Last Admin: 07/14/23 13:03 Dose: 1 tab Documented By: DIMPLE Albuterol Sulfate (Albuterol Sulfate (0.083%) 2.5 Mg/3 Ml Vial.Neb) 2.5 mg INHALE Q2H PRN PRN Reason: Shortness of Breath/Wheezing Allopurinol (Allopurinol 100 Mg Tablet) 100 mg PO DAILY [facility] Last Admin: 07/14/23 08:24 Dose: 100 mg Documented By: JOSHUA Colchicine (Colchicine 0.6 Mg Tablet) 0.6 mg PO DAILY [facility] Last Admin: 07/14/23 08:24 Dose: 0.6 mg Documented By: JOSHUA Diphenhydramine HCl (Diphenhydramine Hcl 50 Mg/Ml Vial) 25 mg IVPUSH Q4H PRN PRN Reason: Itching Last Admin: 07/14/23 12:06 Dose: 25 mg Documented By: JOSHUA Docusate Sodium (Docusate Sodium 100 Mg Capsule) 100 mg PO DAILY PRN PRN Reason: Constipation Fluticasone Propionate (Fluticasone Propionate Nasal 16 Gm Dixon) 1 spray NOSTRIL-B BID PRN PRN Reason: Allergy Symptoms Guaifenesin/Dextromethorphan (Guaifenesin Dm 200/20/10 Ml 10 Ml Syrup) 10 ml PO Q6H PRN PRN Reason: Cough Last Admin: 07/14/23 01:56 Dose: 10 ml Documented By: YORDAN Hydromorphone HCl (Hydromorphone Hcl 2 Mg/Ml Vial) 1 mg IVPUSH Q4H PRN; Protocol PRN Reason: Pain, Severe (Pain Scale 7-10) Last Admin: 07/14/23 12:07 Dose: 1 mg Documented By: JOSHUA Ceftriaxone Sodium 1 gm/ (Sodium Chloride) 50 mls @ 100 mls/hr IV Q24H PHILLIP Last Infusion: 07/14/23 14:10 Dose: Infused Documented By: JOSHUA Azithromycin 500 mg/ Sodium (Chloride) 250 mls @ 125 mls/hr IV Q24H PHILLIP Last Admin: 07/14/23 14:17 Dose: 125 mls/hr Documented By: JOSHUA Lactic Acid (Ammonium Lactate 12 % Lotion 226 Gm Bottle) 1 appl TOPICAL BID PHILLIP; Protocol Last Admin: 07/14/23 08:43 Dose: 1 appl Documented By: JOSHUA Lorazepam (Lorazepam 1 Mg Tablet) 1 mg PO BID PRN PRN Reason: anxiety Last Admin: 07/14/23 08:28 Dose: 1 mg Documented By: JOSHUA Melatonin (Melatonin 3 Mg Tablet) 6 mg PO BEDTIME PRN PRN Reason: Insomnia Last Admin: 07/13/23 23:48 Dose: 6 mg Documented By: YORDAN Naloxone HCl (Naloxone Hcl Nasal 4 Mg Dixon) 4 mg NOSTRILALT ONCE PRN PRN Reason: Opiate Reversal Ondansetron HCl (Ondansetron Hcl 4 Mg/2 Ml Vial) 4 mg IVPUSH Q8H PRN PRN Reason: Nausea and Vomiting Last Admin: 07/12/23 14:27 Dose: 4 mg Documented By: COTEMA Oxycodone HCl (Oxycodone Hcl Immed Release 5 Mg Tablet) 5 mg PO Q4H PRN PRN Reason: Pain, Moderate(Pain Scale 4-6) Last Admin: 07/13/23 20:20 Dose: 5 mg Documented By: YORDAN Sodium Chloride (0.9 % Sodium Chloride Flush 3 Ml Syringe) 3 ml IVFLUSH QSHIFT [facility] Last Admin: 07/14/23 08:45 Dose: 3 ml Documented By: JOSHUA Sodium Chloride (0.9 % Sodium Chloride Flush 10 Ml Syringe) 5 ml IVFLUSH TID [facility] Labs 07/14/23 08:54 07/14/23 08:54 Labs: Laboratory Results - last 24 hr 07/14/23 07/14/23 08:54 09:55 MCV 85.4 MCH 33.3 H MCHC 37.8 H RDW 19.6 H Plt Count 169 MPV 12.3 Absolute Nucleated RBC 1.400 H Nucleated RBC % (auto) 7.4 H Anion Gap 12 Estim Creat Clear Calc 52.1 Estimated GFR 54 Random Glucose 164 H Calcium 8.7 B-Natriuretic Peptide 1780 H Blood Type O Positive Antibody Screen NEGATIVE Crossmatch (AHG) See Detail Microbiology Microbiology Results: Microbiology 07/11/23 12:32 Blood Culture - Preliminary Blood - Venous No growth after 48 hours. 07/11/23 12:32 Blood Culture - Preliminary Blood - Venous No growth after 48 hours. 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 Pt will be admitted to the hospital for treatment and further evaluation of sickle cell crisis in the setting of community-acquired pneumonia. Acute on chronic anemia No blood loss noted, check occult Hb 6.4 from baseline 7-8, transfused 1 unit1 of blood and could not finish the 2nd To give 2 more units follow CBC when we can draw labs PICC placed Sickle cell crisis Likely secondary to community-acquired pneumonia Improving DC IV fluids IV analgesics; Dilaudid 1mg IV q.4 and titrate as needed Benadryl 25 mg PRN with opioids due to itching pending cultures dc Solu-Medrol Continue ceftriaxone and azithromycin started 07/11/2023 Acute Hyperkalemia K was 6.4 give Kayexalate, Ca Gluconate and Insulin\Dextrose follow BMP Ear pain/bleeding from ear Small abrasion external ear canal No further workup or treatment indicated at this time Headache Pain complaining of headache primarily behind left eye and ear Fioricet p.r.n. Transaminitis Chronic, appears at baseline Patient not complaining of abdominal pain or N/V/D No further treatment or workup indicated at this time COPD Not in acute exacerbation Continue home inhalers Hx of DVT Hold Eliquis due to borderline anemia Full Code DVT Prophylaxis: Lovenox Pt will require a hospitalization of overnight for treatment of?sickle cell crisis in the setting of COVID pneumonia. Patient will require hospitalization for the administration of IV analgesics and IV antibiotics, and blood transfusion Quality Stroke Does the patient have a stroke diagnosis?: No VTE Prior VTE?: No VTE Risk Level:: Medical - moderate - high VTE Device Contraindication: N/A - Device Ordered VTE Drug Contraindication: Treatment Not Indicated
[2023-07-14 15:23] LABS: Hematocrit 21.2 % (37.0-47.0); Hemoglobin 7.8 g/dl (12.0-16.0); Mean Corpuscular HGB Conc 36.8 g/dl (31.0-35.0); Mean Corpuscular Hemoglobin 31.7 pg (27.0-33.0); Mean Corpuscular Volume 86.2 fL (80.0-98.0); Mean Platelet Volume 12.5 fL (9.4-12.3); Platelet Count 155 X10*3/uL (160-400); Red Blood Count 2.46 X10*6/uL (4.20-5.50); Red Cell Distribution Width 20.1 % (11.0-16.0)
[2023-07-14 15:24] LABS: NRBC Pct Auto 12.2 /100WBC (0.0-0.2); WBC ABN SCTR FOR CBC 1; White Blood Count 20.8 X10*3/uL (4.8-10.8)
[2023-07-14 15:33] LABS: Anion Gap 13 (12-20); Blood Urea Nitrogen 26 mg/dL (9-16); Calcium 8.9 mg/dL (8.4-10.2); Carbon Dioxide 21 mmol/L (22-29); Chloride 111 mmol/L (96-108); Creatinine Clr Calc Pharmacy 49.3; Estimated Glomerular Filt Rate 51; Glucose Random 89 mg/dL (60-115); Potassium 5.2 mmol/L (3.3-5.1); Sodium 140 mmol/L (135-145)
[2023-07-14] MEDS: 0.9 % Sodium Chloride Flush 10 ML SYRINGE 5 ML IVFLUSH (17:11)
[2023-07-14] MEDS: Sodium Zirconium Cyclosilicate 5 GM POWD.PACK PO (17:20)
[2023-07-14 17:35] LABS: OBS Int Ctl Valid YES; OBS1 NEGATIVE (NEGATIVE)
[2023-07-14] MEDS: oxyCODONE HCl Immed Release 5 MG TABLET PO (19:22)
--- NOTE | 2023-07-14 23:33 | MHC.PIE ---
p; laundry operator finishing found picc fci out of arm. when asked, pt denies pulling out iv, then pt reports iv falling out, pt also reporting maybe pulling out in sleep. as picc was more than 3/4 out, picc dc'd, line inspected and pressure applied to site. pt then yells at this travel writer for huring her as gental pressure was applied to picc site, then pt became argumentative and accusatory as pressure was applied to site per protocol. i; dr maria notified e; will cont to monitor
[2023-07-15] MEDS: HYDROmorphone HCl 2 MG/ML VIAL 1 MG IVPUSH ×3 (01:05→09:52)
[2023-07-15] MEDS: diphenhydrAMINE HCL 50 MG/ML VIAL 25 MG IVPUSH ×3 (01:05→09:55)
[2023-07-15] MEDS: Butalb/Acetamin/Caff 50/325/40 TABLET 1 TAB PO ×2 (05:46→09:59)
[2023-07-15 06:33] LABS: Hematocrit 28.3 % (37.0-47.0); Hemoglobin 10.2 g/dl (12.0-16.0); Mean Corpuscular Volume 88.7 fL (80.0-98.0); Mean Platelet Volume 13.2 fL (9.4-12.3); NRBC Pct Auto 47.8 /100WBC (0.0-0.2); PLT ABN DIST 1; PLT CLUMP 1; Platelet Count 128 X10*3/uL (160-400); Red Blood Count 3.19 X10*6/uL (4.20-5.50); Red Cell Distribution Width 20.3 % (11.0-16.0); White Blood Count 17.8 X10*3/uL (4.8-10.8)
[2023-07-15 06:57] LABS: Anion Gap 17 (12-20); Blood Urea Nitrogen 21 mg/dL (9-16); Calcium 8.9 mg/dL (8.4-10.2); Carbon Dioxide 17 mmol/L (22-29); Chloride 110 mmol/L (96-108); Creatinine Clr Calc Pharmacy 60.7; Estimated Glomerular Filt Rate > 60; Glucose Random 86 mg/dL (60-115); Potassium 4.7 mmol/L (3.3-5.1); Sodium 139 mmol/L (135-145)
[2023-07-15 07:00] VITALS: BP 150/67; PULSE 88; RESP 16; TEMP 36.6; O2SAT 93
--- NOTE | 2023-07-15 08:24 | MHC.RECOVRN ---
Pt has IOP intake at [facility] on 08/02 at 12 pm with Rupa. CM aware.
[2023-07-15] MEDS: oxyCODONE HCl Immed Release 5 MG TABLET PO (08:54)
[2023-07-15] MEDS: 0.9 % Sodium Chloride Flush 3 ML SYRINGE IVFLUSH (09:16)
[2023-07-15] MEDS: allopurinoL 100 MG TABLET PO (09:17)
[2023-07-15] MEDS: Colchicine 0.6 MG TABLET PO (09:17)
--- NOTE | 2023-07-15 09:23 | PM.DS ---
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 Patient reports symptoms began 2 days prior when patient began to all-over pain, particularly in her legs, arms, and shoulders. Soon after developed a cough that was productive of yellow-greenish sputum. Also complains of headache centered over left eye and blood coming out of her left ear. Denies any change to hearing. No fever or chills, nausea or vomiting. Denies chest pressure or palpitations. No lightheadedness or dizziness. Reports continues to smoke 5-10 cigarettes a day, drinking 2 shots of alcohol twice a week, and smoking crack cocaine, last used 2-3 days ago. In the ED pt was tachypneic up to 22, vitals otherwise baseline for patient. Labs were significant for leukocytosis of 18.7, H&H 7.3/19.9, thrombocytopenia 146, absolute reticulocytes elevated at 0.255 at 11.8% with immature retic fraction of 33.1%, bilirubin 2.4, AST 83, ALT 32, alk-phos 204, and elevated D-dimer 1769. Tested negative for flu, RSV, and COVID. CTA of chest found no pulmonary emboli, but showed evidence for pulmonary arterial hypertension, and emphysematous and fibrotic changes of bilateral lung menendez with subpleural cystic changes, with reticular nodular opacities and regions of peripheral honeycombing. CXR showed no acute cardiopulmonary disease. EKG demonstrated normal sinus rhythm with no evidence of ST elevations or depressions. Pt was treated with morphine, ondansetron, diphenhydramine, ceftriaxone, and azithromycin. Pt will be admitted to the hospital for treatment and further evaluation of sickle cell crisis in the setting of community-acquired pneumonia. Hospital course The patient was admitted to the hospital for treatment of Sickle cell crisis secondary to community-acquired pneumonia treated with IV fluids, IV analgesics; Dilaudid 1mg IV q.4 PRN , Oxycodone PRN and titrated as needed. Benadryl 25 mg PRN with opioids due to itching and antibiotics of ceftriaxone and azithromycin started 07/11/2023 as blood cultures remained negative after 48 hours. WBCs trended down. She was on lower than home dose of Oxygen 3L at time of discharge. To finish 7 more days of Ceftin and Azithromycin on discharge. Noticed to have Acute on chronic anemia secondary to SCC with No blood loss noted. Hb dropped to lowest of 5.2. received total of 4 units of blood improved Hb to 10.2 at time of discharge. A PICC line was placed for blood samples and IV treatment but she pulled it off overnight, she thinks while itching not on purpose. Also she was treated for Acute Hyperkalemia with max of 6.4 responded well to Kayexalate, Ca Gluconate and Insulin\Dextrose with extra dose of Lokelma loweing it to 4.7 at time of dishcarge. Discharge plan Continue Azithromycin and Ceftin as prescribed Increase physical activity as tolerated Keep yourself well hydrated Ammonium lotion for dry skin Time Attestation Discharge Coordination Time (in mins): 38 Quality: Safe Use of Opioids Does Pt have an Active Cancer Diagnosis on the Problem List?: No Quality: Stroke Does the patient have a stroke diagnosis?: No Physical Exam Vital Signs: Vital Signs: Last Vital Signs Temp 98 F 07/15/23 07:00 Pulse 88 07/15/23 07:00 Resp 16 07/15/23 07:00 BP 150/67 H 07/15/23 07:00 Pulse Ox 93 07/15/23 07:00 O2 Del Method Nasal Cannula 07/15/23 07:00 O2 Flow Rate 2 07/15/23 07:00 Oxygen Flow Rate 4 07/11/23 02:56 BMI result Body Mass Index 20.1 Const: Other: Constitutional : Awake, interactive, not in distress Neck : Normal inspection, Supple Cardiovascular : RRR, no JVP, no lower extremity edema Respiratory : good bilateral air entry, no crackles, no wheezes or rhonchi Gastrointestinal: soft, lax, Normal bowel sounds, Non tender Skin : Warm, Dry Neurological : Alert & oriented x3, No focal deficit DS: Data Data Completed and Pending Completed studies during hospitalization [Text1]: Procedures Detoxification Services for Substance Abuse Treatment (12/05/19) Insertion of Infusion Device into Right Subclavian Vein, Percutaneous Approach (06/26/20) Insertion of Infusion Device into Superior Vena Cava, Percutaneous Approach (06/26/20) Insertion of Infusion Device into Upper Vein, Percutaneous Approach (01/01/23) Transfusion of Nonautologous Red Blood Cells into Peripheral Vein, Percutaneous Approach (12/14/22) Labs on day of discharge: Laboratory Results - last 24 hr 07/14/23 07/14/23 07/14/23 08:54 09:55 15:11 WBC 19.0 H 20.8 H RBC 1.98 L 2.46 L D Hgb 6.6 L* D 7.8 L Hct 16.9 L* 21.2 L D MCV 85.4 86.2 MCH 33.3 H 31.7 MCHC 37.8 H 36.8 H RDW 19.6 H 20.1 H Plt Count 169 155 L MPV 12.3 12.5 H Absolute Nucleated RBC 1.400 H 2.530 H Nucleated RBC % (auto) 7.4 H 12.2 H Sodium 137 140 Potassium 6.4 H* 5.2 H Chloride 111 H 111 H Carbon Dioxide 20 L 21 L Anion Gap 12 13 BUN 31 H 26 H Creatinine 1.06 1.12 Estim Creat Clear Calc 52.1 49.3 Estimated GFR 54 51 Random Glucose 164 H 89 Calcium 8.7 8.9 B-Natriuretic Peptide 1780 H Stool Occult Blood Blood Type O Positive Antibody Screen NEGATIVE Crossmatch (AHG) See Detail 07/14/23 07/15/23 Unknown 05:48 WBC 17.8 H RBC 3.19 L D Hgb 10.2 L D Hct 28.3 L D MCV 88.7 MCH 32.0 MCHC 36.0 H RDW 20.3 H Plt Count 128 L MPV 13.2 H Absolute Nucleated RBC 8.490 H Nucleated RBC % (auto) 47.8 H Sodium 139 Potassium 4.7 Chloride 110 H Carbon Dioxide 17 L Anion Gap 17 BUN 21 H Creatinine 0.91 Estim Creat Clear Calc 60.7 Estimated GFR > 60 Random Glucose 86 Calcium 8.9 B-Natriuretic Peptide Stool Occult Blood NEGATIVE Blood Type Antibody Screen Crossmatch (AHG) Preliminary micro results at discharge 07/11/23 12:32 Blood Culture - Preliminary Blood - Venous No growth after 48 hours. 07/11/23 12:32 Blood Culture - Preliminary Blood - Venous No growth after 48 hours. Imaging Chest x-ray: Radiologist's impression: ITS Impressions Chest X-Ray 07/11/23 03:15 IMPRESSION: No acute cardiopulmonary disease. Lower lung field increased markings similar to previous. Chest CTA 07/11/23 08:21 IMPRESSION: 1. No pulmonary emboli. 2. Main pulmonary artery is enlarged suggesting elements of pulmonary arterial hypertension. 3. Emphysematous and fibrotic changes of the bilateral lung menendez with subpleural cystic changes, reticular nodular opacities and regions of peripheral honeycombing. Patient respiratory motion artifact limits evaluation for nodules. Discharge Plan Discharge Anticipated Discharge Date/Time: 07/15/23 09:19 Patient Disposition: Home, Self-Care Discharge Diagnosis: Pneumonia Acute on chronic anemia Referrals: [facility] [Outside] - 08/03/23 12:00 pm (OP intake on 08/02 at 12pm with Rupa) Lesia Cuevas MD [Primary Care Provider] - 1 Week Discharge Medications: New ammonium lactate 12 % Lotion 1 appl topical BID Qty: 400 2RF Protocol: Apply to: Apply to: upper and lower extremities azithromycin 500 mg tablet 500 mg PO DAILY 7 Days Qty: 7 0RF cefuroxime axetil 500 mg tablet 500 mg PO BID Qty: 14 0RF Continued oxycodone 10 mg tablet 2 tab PO Q4H PRN (Reason: Pain (Scale Score 4-6)) albuterol sulfate 90 mcg/actuation HFA aerosol inhaler 2 puff PO Q6H PRN (Reason: Shortness Of Breath Or Wheezing) lorazepam 1 mg tablet 1 mg PO BID PRN (Reason: anxiety) fluticasone propionate 50 mcg/actuation spray,suspension 1 spray intranasal BID PRN (Reason: Allergy Symptoms) diphenhydramine HCl [Banophen] 25 mg capsule 25 mg PO TID PRN (Reason: itch) allopurinol 100 mg tablet 100 mg PO DAILY Qty: 30 0RF colchicine 0.6 mg tablet 0.6 mg PO DAILY Qty: 30 0RF Eliquis 2.5 mg tablet 2.5 mg PO BID Discharge Orders: Discharge Order (Routine); Ordered 07/15/23 Ordered By: Ry Luna Diet: Advance to usual diet Activity on Discharge: As tolerated Stand Alone Forms: Patient Portal Discharge page Print Language: Romanian Care Plan Goals: Read below Health Concerns: Read below Plan of Treatment: Read below Assessment: Continue Azithromycin and Ceftin as prescribed Increase physical activity as tolerated Keep yourself well hydrated Ammonium lotion for dry skin
--- NOTE | 2023-07-15 09:46 | MHC.CM.PN ---
EMR REVIEWED. PATIENT MEDICALLY CLEARED FOR DC HOME, WILL RESUME ORDINARY [facility]. PATIENT REPORTS A FRIEND WILL TRANSPORT HOME ~11AM. APPROPRIATE FOR DC LOUNGE IF NEEDED. RN AWARE. IMM DELIVERED.
[2023-07-15 09:52] VITALS: RESP 14
[2023-07-15] MEDS: Ammonium Lactate 12 % Lotion 226 GM BOTTLE 1 APPL TOPICAL (10:03)
== END 2023-07-15 10:34 | disposition home or self-care (01) | DRG 811 ==
LOC: HO.ED 09:40 → HO.EDOVER 12:39 → HO.S3 19:15
PROVIDERS: Emergency Medicine; Internal Medicine; Physician Assistant; Admitting Provider Student in an Organized Health Care Education/Training Program; Emergency Provider Emergency Medicine; PCP Student in an Organized Health Care Education/Training Program; Visit Provider Student in an Organized Health Care Education/Training Program
DX: D57.01 Hb-SS disease with acute chest syndrome (principal); J18.9 Pneumonia, unspecified organism; J44.0 Chronic obstructive pulmonary disease with (acute) lower respiratory infection; E87.5 Hyperkalemia; F17.210 Nicotine dependence, cigarettes, uncomplicated; I27.20 Pulmonary hypertension, unspecified; I07.1 Rheumatic tricuspid insufficiency; Z71.6 Tobacco abuse counseling; Z20.822 Contact with and (suspected) exposure to COVID-19; Z99.81 Dependence on supplemental oxygen; Z86.718 Personal history of other venous thrombosis and embolism; Z79.01 Long term (current) use of anticoagulants; Z79.899 Other long term (current) drug therapy
CPT/HCPCS: 0241U; 36415; 36573; 71045; 71275; 80048; 80053; 82272; 83540; 83605; 83880; 84484; 85007; 85027; 85045; 85379; 85610; 86850; 86870; 86885; 86900; 86901; 86902; 86920; 86922; 87040; 93005; 99285; C1751; J0456; J0613; J0696; J1170; J1200; J1940; J2270; J2405; J2919; P9016; Q9967

== ENCOUNTER → 2023-07-11 03:21 | Outpatient (BNV) | payer MEDICARE, MEDICAID, SELFPAY | PROVIDERS: Emergency Provider Emergency Medicine; Visit Provider Internal Medicine Cardiovascular Disease | DX: R06.00 Dyspnea, unspecified (principal) | CPT/HCPCS: 93010 ==

== ENCOUNTER → 2023-07-11 12:21 | Outpatient (BNV) | payer MEDICARE, MEDICAID, SELFPAY | PROVIDERS: Admitting Provider Student in an Organized Health Care Education/Training Program; Emergency Provider Emergency Medicine; Visit Provider Student in an Organized Health Care Education/Training Program | DX: J18.9 Pneumonia, unspecified organism (principal); D57.1 Sickle-cell disease without crisis; D57.01 Hb-SS disease with acute chest syndrome; D64.9 Anemia, unspecified; D57.00 Hb-SS disease with crisis, unspecified | CPT/HCPCS: 99223; 99233; 99239 ==